=== PATIENT | female | born 1985 | race Caucasian/White ===

== ENCOUNTER 2016-05-17 10:33 | Emergency (ER) | payer OTHER ==
[2016-05-17 10:40] VITALS: BP 129/83; PULSE 92; RESP 16; TEMP 97.4
--- NOTE | 2016-05-17 11:02 | ED ---
General Adult HPI - General Chief complaint: Nausea/Vomiting/Diarrhea Stated complaint: NAUSEA, DIARRHEA Time Seen by Provider: 05/17/16 10:47 Source: patient, RN notes reviewed Mode of arrival: ambulatory Limitations: no limitations - History of Present Illness Initial comments: Patient 31-year-old female who presents emergency room today with a chief complaint of symptoms of nausea with diarrhea that started late last night. She does admit that her son had similar symptoms. She states she's had several bouts of diarrhea. Denies any signs of blood. States felt nauseated but no vomiting. Some abdominal cramping. Denies any other complaints or symptoms. States is no chance that she could be . Patient denies any recent fever , chills, shortness of breath, chest pain, back pain, abdominal pain, nausea or vomiting, numbness or tingling, dysuria or hematuria, constipation or diarrhea, headaches or visual changes, or any other complaints. - Related Data Home Medications Medication Instructions Recorded Confirmed ALPRAZolam [Xanax] 0.25 mg PO QID 02/28/15 01/05/16 Escitalopram [Lexapro] 20 mg PO DAILY 12/30/15 01/05/16 Insulin NPL/Insulin Lispro 25 units SQ HS 12/30/15 01/05/16 [humaLOG MIX 75-25 VIAL] Insulin NPL/Insulin Lispro 30 units SQ QAM 12/30/15 01/05/16 [humaLOG MIX 75-25 VIAL] Previous Rx's Medication Instructions Recorded Ibuprofen [Motrin] 600 mg PO Q6HR PRN #20 tab 12/30/15 Acetaminophen-Codeine 300-30mg 1 tab PO Q4H PRN #15 tablet 01/05/16 [Tylenol #3] Penicillin V Potassium [Pen Vee K] 500 mg PO QID #40 tab 01/05/16 Ondansetron Odt [Zofran ODT] 4 mg PO Q8HR PRN #15 tab 05/17/16 Allergies Allergy/AdvReac Type Severity Reaction Status Date / Time No Known Allergies Allergy Verified 01/05/16 23:38 Review of Systems ROS Statement: Those systems with pertinent positive or pertinent negative responses have been documented in the HPI. ROS Other: All systems not noted in ROS Statement are negative. Past Medical History Past Medical History: Diabetes Mellitus Additional Past Medical History / Comment(s): HX ENDOMETRIOSIS; GESTATIONAL DIABETES; Migraine headaches History of Any Multi-Drug Resistant Organisms: None Reported Past Surgical History: Tubal Ligation Additional Past Surgical History / Comment(s): LAPAROSCOPIC REMOVAL TUBE AND OVARY-right Past Anesthesia/Blood Transfusion Reactions: No Reported Reaction Additional Past Anesthesia/Blood Transfusion Reaction / Comment(s): HAD MULT INJ FOR DENTAL WORK, INEFFECTIVE. Past Psychological History: Anxiety, Depression Additional Psychological History / Comment(s): PLANS TO MAKE APPT W/ DR FOR EVALUATION; DR ANTONIO AWARE Smoking Status: Never smoker Past Alcohol Use History: None Reported Past Drug Use History: None Reported - Past Family History Father Family Medical History: Cancer, Diabetes Mellitus, Deep Vein Thrombosis (DVT), Hypertension General Exam - General Exam Comments Initial Comments: General: The patient is awake and alert, in no distress, and does not appear acutely ill. Eye: Pupils are equal, round and reactive to light, extra-ocular movements are intact. No nystagmus. There is normal conjunctiva bilaterally. No signs of icterus. Ears, nose, mouth and throat: There are moist mucous membranes and no oral lesions. Neck: The neck is supple, there is no tenderness or JVD. Cardiovascular: There is a regular rate and rhythm. No murmur, rub or gallop is appreciated. Respiratory: Lungs are clear to auscultation, respirations are non-labored, breath sounds are equal. No wheezes, stridor, rales, or rhonchi. Gastrointestinal: Soft, non-distended, non-tender abdomen without masses or organomegaly noted. There is no rebound or guarding present. No CVA tenderness. Bowel sounds are unremarkable. Musculoskeletal: Normal ROM, no tenderness. Strength 5/5. Sensation intact. Pulses equal bilaterally 2+. Neurological: A&O x 3. CN II-XII intact, There are no obvious motor or sensory deficits. Coordination appears grossly intact. Speech is normal. Skin: Skin is warm and dry and no rashes or lesions are noted. Psychiatric: Cooperative, appropriate mood & affect, normal judgment. Limitations: no limitations Course Vital Signs 05/17/16 10:38 Temperature 97.4 F L Pulse Rate 92 Respiratory 16 Rate Blood Pressure 129/83 O2 Sat by Pulse 99 Oximetry Medical Decision Making - Medical Decision Making Patient will be discharged home with nausea medication. Signs symptoms return were discussed with the patient. Patient advised to use [id number] Imodium for diarrhea. Advised about the family doctor return if any symptoms increase or worsen. Disposition Clinical Impression: Acute diarrhea, Nausea Disposition: HOME SELF-CARE Condition: Good Instructions: Acute Diarrhea (ED) Additional Instructions: Please use medication as prescribed and [id number] Imodium for symptoms. Please follow-up the family doctor over the next 2-3 days if symptoms are unimproved or return here to the emergency room if any symptoms increase or worsen. Prescriptions: Ondansetron Odt [Zofran ODT] 4 mg PO Q8HR PRN #15 tab PRN Reason: Nausea Time of Disposition: 11:01
== END 2016-05-17 11:09 | disposition home or self-care (01) ==
LOC: EC 10:33
DX: R11.0 Nausea (principal); R19.7 Diarrhea, unspecified; E11.9 Type 2 diabetes mellitus without complications; F32.9 Major depressive disorder, single episode, unspecified; F41.9 Anxiety disorder, unspecified; Z79.4 Long term (current) use of insulin; Z79.899 Other long term (current) drug therapy
CPT/HCPCS: 99283

== ENCOUNTER 2016-06-25 21:40 | Emergency (ER) | payer OTHER ==
[2016-06-25 21:47] VITALS: RESP 20
[2016-06-25] MEDS ORDERED: BUPIVACAINE (PF) 0.5% 30 ML VIAL SQ STA (22:23)
[2016-06-25] MEDS ORDERED: ACET/COD 300 MG/30 MG STARTER PACK 6 TAB BTL PO STA (22:26)
--- NOTE | 2016-06-25 22:27 | ED ---
ENT HPI - General Chief complaint: Dental/Oral Stated complaint: dental pain Time Seen by Provider: 06/25/16 22:17 Source: patient Mode of arrival: ambulatory Limitations: no limitations - History of Present Illness Initial comments: Patient is a 31 year old female with right sided dental pain for 3 days, she reports it is on the lower back molar. She states she has had problems with this tooth before, and believes she chipped it. She states it feels like her tongue is being cut when she talks as it moves by it. She states she has had dental abscess in the past. She reports the pain is ecaxerbated when eating and drinking. She denies fever chills, swelling, drainage around the tooth. - Related Data Home Medications Medication Instructions Recorded Confirmed ALPRAZolam [Xanax] 0.25 mg PO QID 02/28/15 06/25/16 Escitalopram [Lexapro] 20 mg PO DAILY 12/30/15 06/25/16 Insulin NPL/Insulin Lispro 25 units SQ HS 12/30/15 06/25/16 [humaLOG MIX 75-25 VIAL] Insulin NPL/Insulin Lispro 30 units SQ QAM 12/30/15 06/25/16 [humaLOG MIX 75-25 VIAL] Previous Rx's Medication Instructions Recorded Ibuprofen [Motrin] 600 mg PO Q6HR PRN #20 tab 12/30/15 Acetaminophen-Codeine 300-30mg 1 tab PO Q4H PRN #15 tablet 06/25/16 [Tylenol #3] Penicillin V Potassium [Pen Vee K] 500 mg PO QID #40 tab 06/25/16 Allergies Allergy/AdvReac Type Severity Reaction Status Date / Time No Known Allergies Allergy Verified 06/25/16 21:47 Review of Systems ROS Statement: Those systems with pertinent positive or pertinent negative responses have been documented in the HPI. ROS Other: All systems not noted in ROS Statement are negative. Past Medical History Past Medical History: Diabetes Mellitus Additional Past Medical History / Comment(s): HX ENDOMETRIOSIS; GESTATIONAL DIABETES; Migraine headaches History of Any Multi-Drug Resistant Organisms: None Reported Past Surgical History: Tubal Ligation Additional Past Surgical History / Comment(s): LAPAROSCOPIC REMOVAL TUBE AND OVARY-right Past Anesthesia/Blood Transfusion Reactions: No Reported Reaction Additional Past Anesthesia/Blood Transfusion Reaction / Comment(s): HAD MULT INJ FOR DENTAL WORK, INEFFECTIVE. Past Psychological History: Anxiety, Depression Additional Psychological History / Comment(s): PLANS TO MAKE APPT W/ DR FOR EVALUATION; DR ANTONIO AWARE Smoking Status: Never smoker Past Alcohol Use History: None Reported Past Drug Use History: None Reported - Past Family History Father Family Medical History: Cancer, Diabetes Mellitus, Deep Vein Thrombosis (DVT), Hypertension General Exam - General Exam Comments Initial Comments: Well appearing 31 year old female, no distress. Limitations: no limitations General appearance: alert, in no apparent distress Head exam: Present: atraumatic, normocephalic, normal inspection Eye exam: Present: normal appearance, PERRL, EOMI. Absent: scleral icterus, conjunctival injection, periorbital swelling ENT exam: Present: normal exam, mucous membranes moist. Absent: normal oropharynx (decayed and chipped tooth 32. mild edema around gums of tooth. ) Neck exam: Present: normal inspection. Absent: tenderness, meningismus, lymphadenopathy Respiratory exam: Present: normal lung sounds bilaterally. Absent: respiratory distress, wheezes, rales, rhonchi, stridor Cardiovascular Exam: Present: regular rate, normal rhythm, normal heart sounds. Absent: systolic murmur, diastolic murmur, rubs, gallop, clicks GI/Abdominal exam: Present: soft, normal bowel sounds. Absent: distended, tenderness, guarding, rebound, rigid Extremities exam: Present: normal inspection, full ROM, normal capillary refill. Absent: tenderness, pedal edema, joint swelling, calf tenderness Back exam: Present: normal inspection Neurological exam: Present: alert, oriented X3, CN II-XII intact Course Vital Signs 06/25/16 06/25/16 21:45 22:45 Temperature 98.2 F 98.4 F Pulse Rate 90 86 Respiratory 20 20 Rate Blood Pressure 144/90 136/86 O2 Sat by Pulse 98 99 Oximetry Procedures - Nerve Block Time Out Performed: No Local Anesthetic Used: Marcaine 0.5% Amount of anesthesia used: 4 Side: right Intraoral Nerve Block: inferior alveolar Procedure Successful: Yes Complications: none Patient Tolerated Procedure: well, no complications Medical Decision Making - Medical Decision Making Patient is a 31 year old with chipped tooth 32 and edema around the gum line. Patient given inferior alveolar block and placed on PenVK for possible infection. Patient also given short course of pain medicaiton. Patient reports she is following up with her dentist on Wednesday. Return parameters discussed including increased facial swelling. Patient understands treatment plan and will comply. Disposition Clinical Impression: Dental abscess Disposition: HOME SELF-CARE Condition: Good Instructions: Toothache (ED), Dental Abscess (ED) Additional Instructions: [facility] [address] [place] [address] [phone] (existing clients only) For new clients: [phone] 1st consult: $50 (includes Xrays) Usually 30% less then private dentist for visits after. [employer] Have to pay $50 for Xrays anmd rest is covered. [phone] Complete antibiotic prescription Prescriptions: Acetaminophen-Codeine 300-30mg [Tylenol #3] 1 tab PO Q4H PRN #15 tablet PRN Reason: Pain Penicillin V Potassium [Pen Vee K] 500 mg PO QID #40 tab Referrals: Doris Houston MD [Primary Care Provider] - 1-2 days
[2016-06-25 22:56] VITALS: BP 136/86; PULSE 86; TEMP 98.4
== END 2016-06-25 22:45 | disposition home or self-care (01) ==
LOC: EC 21:40
DX: K04.7 Periapical abscess without sinus (principal); S02.5XXA Fracture of tooth (traumatic), initial encounter for closed fracture; X58.XXXA Exposure to other specified factors, initial encounter; Z79.899 Other long term (current) drug therapy; E11.9 Type 2 diabetes mellitus without complications; Z79.4 Long term (current) use of insulin; F32.9 Major depressive disorder, single episode, unspecified; F41.9 Anxiety disorder, unspecified
CPT/HCPCS: 64400; 99282

== ENCOUNTER 2016-08-13 17:15 | Emergency (ER) | payer OTHER ==
[2016-08-13 17:22] VITALS: BP 133/77; PULSE 102; RESP 20; TEMP 97.8
--- NOTE | 2016-08-13 18:22 | XR ---
EXAMINATION TYPE: XR chest 2V DATE OF EXAM: 08/13/2016 5:59 PM COMPARISON: NONE HISTORY: Cough and congestion TECHNIQUE: Frontal and lateral views of the chest are obtained. FINDINGS: Heart and mediastinum are normal. Lungs are clear. Diaphragm is normal. Bony thorax is int act. IMPRESSION: Normal chest
--- NOTE | 2016-08-13 18:31 | ED ---
URI HPI - General Chief Complaint: Upper Respiratory Infection Stated Complaint: cold and flu symptoms Time Seen by Provider: 08/13/16 17:24 Source: patient, RN notes reviewed Mode of arrival: ambulatory Limitations: no limitations - History of Present Illness Initial Comments: Patient is a 31 year old diabetic female with 3 weeks of productive cough and sinus congestion. She has no recorded fever at this time. Patient has been taking robitussin and mucinex with little help. She states she has a history of sick contacts with similiar symptoms. Denies travel history. - Related Data Home Medications Medication Instructions Recorded Confirmed ALPRAZolam [Xanax] 0.25 mg PO QID 02/28/15 06/25/16 Escitalopram [Lexapro] 20 mg PO DAILY 12/30/15 06/25/16 Insulin NPL/Insulin Lispro 25 units SQ HS 12/30/15 06/25/16 [humaLOG MIX 75-25 VIAL] Insulin NPL/Insulin Lispro 30 units SQ QAM 12/30/15 06/25/16 [humaLOG MIX 75-25 VIAL] Previous Rx's Medication Instructions Recorded Ibuprofen [Motrin] 600 mg PO Q6HR PRN #20 tab 12/30/15 Acetaminophen-Codeine 300-30mg 1 tab PO Q4H PRN #15 tablet 06/25/16 [Tylenol #3] Penicillin V Potassium [Pen Vee K] 500 mg PO QID #40 tab 06/25/16 Azithromycin [Zithromax Z-pack] 250 mg PO DIRECTED #6 tab 08/13/16 Allergies Allergy/AdvReac Type Severity Reaction Status Date / Time No Known Allergies Allergy Verified 08/13/16 17:22 Review of Systems ROS Statement: Those systems with pertinent positive or pertinent negative responses have been documented in the HPI. ROS Other: All systems not noted in ROS Statement are negative. Past Medical History Past Medical History: Diabetes Mellitus Additional Past Medical History / Comment(s): HX ENDOMETRIOSIS; GESTATIONAL DIABETES; Migraine headaches History of Any Multi-Drug Resistant Organisms: None Reported Past Surgical History: Tubal Ligation Additional Past Surgical History / Comment(s): LAPAROSCOPIC REMOVAL TUBE AND OVARY-right Past Anesthesia/Blood Transfusion Reactions: No Reported Reaction Additional Past Anesthesia/Blood Transfusion Reaction / Comment(s): HAD MULT INJ FOR DENTAL WORK, INEFFECTIVE. Past Psychological History: Anxiety, Depression Additional Psychological History / Comment(s): PLANS TO MAKE APPT W/ DR FOR EVALUATION; DR ANTONIO AWARE Smoking Status: Never smoker Past Alcohol Use History: None Reported Past Drug Use History: None Reported - Past Family History Father Family Medical History: Cancer, Diabetes Mellitus, Deep Vein Thrombosis (DVT), Hypertension General Exam - General Exam Comments Initial Comments: Well appearing 31 year old female, no distress. Limitations: no limitations General appearance: alert, in no apparent distress Head exam: Present: atraumatic, normocephalic, normal inspection Eye exam: Present: normal appearance, PERRL, EOMI. Absent: scleral icterus, conjunctival injection, periorbital swelling ENT exam: Present: normal exam, mucous membranes moist, TM's normal bilaterally. Absent: normal oropharynx (erythematous oropharynx with post nasal drainage. ) Neck exam: Present: normal inspection. Absent: tenderness, meningismus, lymphadenopathy Respiratory exam: Present: normal lung sounds bilaterally. Absent: respiratory distress, wheezes, rales, rhonchi, stridor Cardiovascular Exam: Present: regular rate, normal rhythm, normal heart sounds. Absent: systolic murmur, diastolic murmur, rubs, gallop, clicks GI/Abdominal exam: Present: soft, normal bowel sounds. Absent: distended, tenderness, guarding, rebound, rigid Extremities exam: Present: normal inspection, full ROM, normal capillary refill. Absent: tenderness, pedal edema, joint swelling, calf tenderness Back exam: Present: normal inspection Neurological exam: Present: alert, oriented X3, CN II-XII intact Psychiatric exam: Present: normal affect, normal mood Skin exam: Present: warm, dry, intact, normal color. Absent: rash Course Vital Signs 08/13/16 17:21 Temperature 97.8 F Pulse Rate 102 H Respiratory 20 Rate Blood Pressure 133/77 O2 Sat by Pulse 98 Oximetry Medical Decision Making - Medical Decision Making Patient is a 31 year old diabetic female with 3 week productive cough. No fever at this time. Patient CXR is normal. Patient will be treated with azithromycin and advised to follow up with PCP in 1 week if symptoms persist. REturn parameters discussed. Disposition Clinical Impression: Bronchitis Disposition: HOME SELF-CARE Condition: Good Instructions: Upper Respiratory Infection (ED) Additional Instructions: Rest, increase fluids. Completely antibiotic prescription. Follow-up with primary care provider if symptoms continue to persist. Prescriptions: Azithromycin [Zithromax Z-pack] 250 mg PO DIRECTED #6 tab Referrals: Doris Houston MD [Primary Care Provider] - 1-2 days Time of Disposition: 18:30
== END 2016-08-13 18:42 | disposition home or self-care (01) ==
LOC: EC 17:15
DX: J40 Bronchitis, not specified as acute or chronic (principal); E11.9 Type 2 diabetes mellitus without complications; F32.9 Major depressive disorder, single episode, unspecified; F41.9 Anxiety disorder, unspecified; Z79.4 Long term (current) use of insulin; Z79.899 Other long term (current) drug therapy
CPT/HCPCS: 71020; 99283

== ENCOUNTER 2016-10-29 06:16 | Emergency (ER) | payer OTHER ==
[2016-10-29 06:32] VITALS: BP 124/89; PULSE 94; RESP 18; TEMP 97.3
[2016-10-29] MEDS ORDERED: IBUPROFEN 800 MG TAB PO STA (06:33)
--- NOTE | 2016-10-29 06:37 | ED ---
ENT HPI - General Chief complaint: ENT Stated complaint: right ear pain Time Seen by Provider: 10/29/16 06:29 Source: patient, RN notes reviewed Mode of arrival: ambulatory Limitations: no limitations - History of Present Illness Initial comments: This is a 31-year-old female who presents with complaints of right ear pain for the past 2 days. She's had similar drainage or fever chills or sweats. No cough or phlegm production she states that her significant other has been ill recently MD complaint: ear pain - Related Data Home Medications Medication Instructions Recorded Confirmed ALPRAZolam [Xanax] 0.25 mg PO QID 02/28/15 06/25/16 Escitalopram [Lexapro] 20 mg PO DAILY 12/30/15 06/25/16 Insulin NPL/Insulin Lispro 25 units SQ HS 12/30/15 06/25/16 [humaLOG MIX 75-25 VIAL] Insulin NPL/Insulin Lispro 30 units SQ QAM 12/30/15 06/25/16 [humaLOG MIX 75-25 VIAL] Previous Rx's Medication Instructions Recorded Ibuprofen [Motrin] 600 mg PO Q6HR PRN #20 tab 12/30/15 Acetaminophen-Codeine 300-30mg 1 tab PO Q4H PRN #15 tablet 06/25/16 [Tylenol #3] Penicillin V Potassium [Pen Vee K] 500 mg PO QID #40 tab 06/25/16 Azithromycin [Zithromax Z-pack] 250 mg PO DIRECTED #6 tab 08/13/16 Amoxicillin/Potassium Clav 1 tab PO Q12HR #20 tab 10/29/16 [Augmentin 875-125 Tablet] Ciprofloxacin HCl/Dexameth 4 drops BOTH EARS AC-BID #7.5 ml 10/29/16 [Ciprodex Otic Suspension] Hydrocodone/Acetaminophen [[place] 1 each PO Q6HR PRN #20 tab 10/29/16 5-325] Ibuprofen 800 mg PO Q6HR PRN #20 tablet 10/29/16 Allergies Allergy/AdvReac Type Severity Reaction Status Date / Time No Known Allergies Allergy Verified 10/29/16 06:23 Review of Systems ROS Statement: Those systems with pertinent positive or pertinent negative responses have been documented in the HPI. ROS Other: All systems not noted in ROS Statement are negative. Past Medical History Past Medical History: Diabetes Mellitus Additional Past Medical History / Comment(s): HX ENDOMETRIOSIS; GESTATIONAL DIABETES; Migraine headaches History of Any Multi-Drug Resistant Organisms: None Reported Past Surgical History: Tubal Ligation Additional Past Surgical History / Comment(s): LAPAROSCOPIC REMOVAL TUBE AND OVARY-right Past Anesthesia/Blood Transfusion Reactions: No Reported Reaction Additional Past Anesthesia/Blood Transfusion Reaction / Comment(s): HAD MULT INJ FOR DENTAL WORK, INEFFECTIVE. Past Psychological History: Anxiety, Depression Smoking Status: Never smoker Past Alcohol Use History: None Reported Past Drug Use History: None Reported - Past Family History Father Family Medical History: Cancer, Diabetes Mellitus, Deep Vein Thrombosis (DVT), Hypertension General Exam - General Exam Comments Initial Comments: This is a well-developed well-nourished awake alert oriented 1 female Limitations: no limitations General appearance: alert, anxious Head exam: Present: atraumatic, normocephalic, normal inspection Eye exam: Present: normal appearance, PERRL, EOMI. Absent: scleral icterus, conjunctival injection, periorbital swelling ENT exam: Present: mucous membranes moist, other (Mild posterior pharyngeal hyperemia with no exudates. Left tympanic membrane reveals fluid behind the membranes but no erythema. Right canal is edematous with mucoid discharge since or otitis externa. The tympanic membrane is poorly visualized.) Neck exam: Present: normal inspection, tenderness (Tender anterior cervical lymphadenopathy in the right.), lymphadenopathy Respiratory exam: Present: normal lung sounds bilaterally Cardiovascular Exam: Present: regular rate, normal rhythm, normal heart sounds. Absent: systolic murmur, diastolic murmur, rubs, gallop, clicks Back exam: Absent: tenderness Neurological exam: Present: alert, oriented X3, CN II-XII intact Psychiatric exam: Present: normal affect, normal mood Skin exam: Present: warm, dry, intact, normal color. Absent: rash Course Vital Signs 10/29/16 06:21 Temperature 97.3 F L Pulse Rate 94 Respiratory 18 Rate Blood Pressure 124/89 O2 Sat by Pulse 99 Oximetry Medical Decision Making - Medical Decision Making Further workup is initiated the presentation is consistent with otitis externa with some extension into the soft tissue the patient will be placed on both oral antibiotics and drops for the ear. Also medication for. Disposition Clinical Impression: Otitis externa Disposition: HOME SELF-CARE Condition: Good Instructions: Earache (ED), Otitis Externa (ED) Prescriptions: Amoxicillin/Potassium Clav [Augmentin 875-125 Tablet] 1 tab PO Q12HR #20 tab Ciprofloxacin HCl/Dexameth [Ciprodex Otic Suspension] 4 drops BOTH EARS AC-BID # 7.5 ml Hydrocodone/Acetaminophen [[place] 5-325] 1 each PO Q6HR PRN #20 tab PRN Reason: Pain Ibuprofen 800 mg PO Q6HR PRN #20 tablet PRN Reason: Pain Referrals: Doris Houston MD [Primary Care Provider] - 1-2 days
== END 2016-10-29 06:53 | disposition home or self-care (01) ==
LOC: EC 06:16
DX: H60.91 Unspecified otitis externa, right ear (principal); E11.9 Type 2 diabetes mellitus without complications; F32.9 Major depressive disorder, single episode, unspecified; F41.9 Anxiety disorder, unspecified; Z79.4 Long term (current) use of insulin; Z79.899 Other long term (current) drug therapy
CPT/HCPCS: 99282

== ENCOUNTER 2017-01-02 00:16 | Emergency (ER) | payer OTHER ==
[2017-01-02 00:31] VITALS: BP 119/74; PULSE 87; RESP 18; TEMP 97.7
--- NOTE | 2017-01-02 00:44 | ED ---
ENT HPI - General Chief complaint: ENT Stated complaint: Sore throat Time Seen by Provider: 01/02/17 00:37 Source: patient, RN notes reviewed Mode of arrival: ambulatory Limitations: no limitations - History of Present Illness Initial comments: 31-year-old female presents emergency Department chief complaint of sore throat , nasal congestion. Patient states she started this morning will tickle in her throat states is progressively getting worse. She states she does drainage throat. Patient has been blowing her nose slightly state. Patient denies fever , chills, headache, dizziness, neck stiffness, cough, shortness of breath, chest pain, nausea, vomiting diarrhea constipation. - Related Data Home Medications Medication Instructions Recorded Confirmed Insulin NPL/Insulin Lispro 34 units SQ HS 12/30/15 01/02/17 [humaLOG MIX 75-25 VIAL] Insulin NPL/Insulin Lispro 40 units SQ QAM 12/30/15 01/02/17 [humaLOG MIX 75-25 VIAL] metFORMIN HCL [Glucophage] 500 mg PO BID 01/02/17 01/02/17 Previous Rx's Medication Instructions Recorded Amoxicillin 875 mg PO Q12HR #20 tablet 01/02/17 Allergies Allergy/AdvReac Type Severity Reaction Status Date / Time No Known Allergies Allergy Verified 10/29/16 06:23 Review of Systems ROS Statement: Those systems with pertinent positive or pertinent negative responses have been documented in the HPI. ROS Other: All systems not noted in ROS Statement are negative. Past Medical History Past Medical History: Diabetes Mellitus Additional Past Medical History / Comment(s): HX ENDOMETRIOSIS; GESTATIONAL DIABETES; Migraine headaches History of Any Multi-Drug Resistant Organisms: None Reported Past Surgical History: Tubal Ligation Additional Past Surgical History / Comment(s): LAPAROSCOPIC REMOVAL TUBE AND OVARY-right Past Anesthesia/Blood Transfusion Reactions: No Reported Reaction Additional Past Anesthesia/Blood Transfusion Reaction / Comment(s): HAD MULT INJ FOR DENTAL WORK, INEFFECTIVE. Past Psychological History: Anxiety, Depression Smoking Status: Never smoker Past Alcohol Use History: None Reported Past Drug Use History: None Reported - Past Family History Father Family Medical History: Cancer, Diabetes Mellitus, Deep Vein Thrombosis (DVT), Hypertension General Exam Limitations: no limitations General appearance: alert, in no apparent distress Head exam: Present: atraumatic, normocephalic, normal inspection Eye exam: Present: normal appearance, PERRL, EOMI. Absent: scleral icterus, conjunctival injection, periorbital swelling ENT exam: Present: mucous membranes moist, TM's normal bilaterally, normal external ear exam, other. Absent: normal oropharynx (Postnasal drainage normal erythema) Neck exam: Present: normal inspection, full ROM. Absent: tenderness, meningismus, lymphadenopathy Respiratory exam: Present: normal lung sounds bilaterally. Absent: respiratory distress, wheezes, rales, rhonchi, stridor Cardiovascular Exam: Present: regular rate, normal rhythm, normal heart sounds. Absent: systolic murmur, diastolic murmur, rubs, gallop, clicks Course Vital Signs 01/02/17 00:28 Temperature 97.7 F Pulse Rate 87 Respiratory 18 Rate Blood Pressure 119/74 O2 Sat by Pulse 98 Oximetry Medical Decision Making - Medical Decision Making 31-year-old male presents emergency Department with chief complaint of sore throat, nasal congestion. This most likely is related postnasal drainage. Patient is very concerned that she believes that she has strep pharyngitis. Patient states that she had some May with similar symptoms that had strep. Patient we given antibiotics because she is so adamant this time. Patient be discharged advised take [id number] decongestants return parameters were discussed. Disposition Clinical Impression: Post-nasal drainage, Nasal congestion, Acute pharyngitis Disposition: HOME SELF-CARE Condition: Stable Instructions: Pharyngitis (ED) Additional Instructions: Please return to the Emergency Department if symptoms worsen or any other concerns. Prescriptions: Amoxicillin 875 mg PO Q12HR #20 tablet Referrals: Doris Houston MD [Primary Care Provider] - 1-2 days Time of Disposition: 00:43
== END 2017-01-02 00:53 | disposition home or self-care (01) ==
LOC: EC 00:16
DX: J02.9 Acute pharyngitis, unspecified (principal); R09.82 Postnasal drip; E11.9 Type 2 diabetes mellitus without complications; Z79.4 Long term (current) use of insulin; Z79.84 Long term (current) use of oral hypoglycemic drugs
CPT/HCPCS: 99282

== ENCOUNTER 2017-04-02 11:09 | Emergency (ER) | payer OTHER ==
[2017-04-02 11:28] LABS: Glucose,Whole Blood 471 mg/dL (75-99)
[2017-04-02] MEDS ORDERED: KETOROLAC 30 MG/ML 1 ML VIAL IVP STA (11:44)
[2017-04-02] MEDS ORDERED: SODIUM CHLORIDE 0.9% 1,000 ML IV ONE ×2 (11:45→12:31)
--- NOTE | 2017-04-02 11:48 | ED ---
General Adult HPI - General Chief complaint: Chest Pain Stated complaint: CHEST PAIN/SENT [facility] Time Seen by Provider: 04/02/17 11:39 Source: patient, RN notes reviewed, old records reviewed Mode of arrival: wheelchair Limitations: no limitations - History of Present Illness Initial comments: 32-year-old female presents for evaluation of chest pain. Patient was sent from urgent care for evaluation of central and left-sided upper chest pain. Worse with deep inspiration. Patient states she's had this for approximately 3 days. She also had associated palpitations. Patient does report mild cough. Pain is worse with cough and deep breathing. At urgent care patient's blood sugar read high, she was sent over for further evaluation. Patient was at work when her symptoms began on Wednesday. Have been present since that time. Pain is sharp and nonradiating. No nausea. No abdominal pain. No lower extremity swelling. Patient is not on control. - Related Data Home Medications Medication Instructions Recorded Confirmed Insulin NPL/Insulin Lispro 35 units SQ HS 12/30/15 04/02/17 [humaLOG MIX 75-25 VIAL] Insulin NPL/Insulin Lispro 45 units SQ QAM 12/30/15 04/02/17 [humaLOG MIX 75-25 VIAL] metFORMIN HCL [Glucophage] 500 mg PO DAILY 01/02/17 04/02/17 ALPRAZolam [Xanax] 0.25 mg PO BID PRN 04/02/17 04/02/17 Escitalopram [Lexapro] 5 mg PO DAILY PRN 04/02/17 04/02/17 Previous Rx's Medication Instructions Recorded Ibuprofen [Motrin] 600 mg PO Q8HR PRN #24 tab 04/02/17 Allergies Allergy/AdvReac Type Severity Reaction Status Date / Time No Known Allergies Allergy Verified 04/02/17 11:35 Review of Systems ROS Statement: Those systems with pertinent positive or pertinent negative responses have been documented in the HPI. ROS Other: All systems not noted in ROS Statement are negative. Past Medical History Past Medical History: Diabetes Mellitus Additional Past Medical History / Comment(s): HX ENDOMETRIOSIS; GESTATIONAL DIABETES; Migraine headaches History of Any Multi-Drug Resistant Organisms: None Reported Past Surgical History: Tubal Ligation Additional Past Surgical History / Comment(s): LAPAROSCOPIC REMOVAL TUBE AND OVARY-right Past Anesthesia/Blood Transfusion Reactions: No Reported Reaction Additional Past Anesthesia/Blood Transfusion Reaction / Comment(s): HAD MULT INJ FOR DENTAL WORK, INEFFECTIVE. Past Psychological History: Anxiety, Depression Smoking Status: Never smoker Past Alcohol Use History: None Reported Past Drug Use History: None Reported - Past Family History Father Family Medical History: Cancer, Diabetes Mellitus, Deep Vein Thrombosis (DVT), Hypertension General Exam Limitations: no limitations General appearance: alert, in no apparent distress Head exam: Present: atraumatic, normocephalic Eye exam: Present: normal appearance, PERRL ENT exam: Present: normal exam Neck exam: Present: normal inspection. Absent: tenderness, meningismus Respiratory exam: Present: normal lung sounds bilaterally, chest wall tenderness (Left upper tenderness to palpation.). Absent: respiratory distress Cardiovascular Exam: Present: regular rate, normal rhythm GI/Abdominal exam: Present: soft. Absent: distended, tenderness Extremities exam: Present: normal inspection, normal capillary refill. Absent: pedal edema, calf tenderness Neurological exam: Present: alert, oriented X3 Psychiatric exam: Present: normal affect, normal mood Skin exam: Present: warm, dry, intact Course Vital Signs 04/02/17 04/02/17 11:13 12:17 Temperature 97.6 F Pulse Rate 97 96 Respiratory 18 16 Rate Blood Pressure 141/85 120/73 O2 Sat by Pulse 100 99 Oximetry - Reevaluation(s) Reevaluation #1: 04/02/17 13:38 On reevaluation, patient's chest pain is significantly improved. EKG Findings - EKG Comments: EKG Findings:: EKG shows normal sinus rhythm, ventricular rate 85, CA interval 140, QRS duration 82, QTC 437, no signs of ischemia or infarction, T-wave inversion in lead 3 Medical Decision Making - Medical Decision Making 32-year-old female presenting with chief complaint chest pain and elevated blood sugar. Initial blood glucose is 500. Patient receives IV hydration and 5 units of insulin. Blood glucose is down trending at 325. Anion gap is 9, no signs of acidosis. Patient will continue to orally rehydrate and take her insulin home. She will follow-up with her primary care physician. Regarding her chest pain, is reproducible on examination. Chest x-ray shows no acute findings. Blood cell count and hemoglobin are normal. D-dimer is negative. EKG is nonischemic. Patient's pain is improved on reevaluation. Diagnosis: Muscular skeletal chest pain, hyperglycemia - Lab Data Result diagrams: 04/02/17 12:00 04/02/17 12:00 Lab Results 04/02/17 04/02/17 04/02/17 Range/Units 11:26 12:00 12:00 WBC 8.4 (3.8-10.6) k/uL RBC 4.82 (3.80-5.40) m/uL Hgb 14.2 (11.4-16.0) gm/dL Hct 42.4 (34.0-46.0) % MCV 88.0 (80.0-100.0) fL MCH 29.4 (25.0-35.0) pg MCHC 33.4 (31.0-37.0) g/dL RDW 12.4 (11.5-15.5) % Plt Count 318 (150-450) k/uL Neutrophils % 70 % Lymphocytes % 23 % Monocytes % 4 % Eosinophils % 1 % Basophils % 1 % Neutrophils # 5.9 (1.3-7.7) k/uL Lymphocytes # 1.9 (1.0-4.8) k/uL Monocytes # 0.3 (0-1.0) k/uL Eosinophils # 0.1 (0-0.7) k/uL Basophils # 0.0 (0-0.2) k/uL PT (9.0-12.0) sec INR (<1.2) APTT (22.0-30.0) sec D-Dimer (<0.60) mg/L FEU Sodium (137-145) mmol/L Potassium (3.5-5.1) mmol/L Chloride (98-107) mmol/L Carbon Dioxide (22-30) mmol/L Anion Gap mmol/L BUN (7-17) mg/dL Creatinine (0.52-1.04) mg/dL Est GFR (MDRD) Af Amer (>60 ml/min/1.73 sqM) Est GFR (MDRD) Non-Af (>60 ml/min/1.73 sqM) Glucose (74-99) mg/dL POC Glucose (mg/dL) 471 H (75-99) mg/dL POC Glu Specialty [employer]sembler ID McDaid, [place] Calcium (8.4-10.2) mg/dL Magnesium (1.6-2.3) mg/dL Total Bilirubin (0.2-1.3) mg/dL AST (14-36) U/L ALT (9-52) U/L Alkaline Phosphatase (38-126) U/L Total Creatine Kinase 57 (30-135) U/L CK-MB (CK-2) 0.5 (0.0-2.4) ng/mL CK-MB (CK-2) Rel Index 0.9 Troponin I <0.012 (0.000-0.034) ng/mL Total Protein (6.3-8.2) g/dL Albumin (3.5-5.0) g/dL Urine Color Urine Appearance (Clear) Urine pH (5.0-8.0) Ur Specific [place] (1.001-1.035) Urine Protein (Negative) Urine Glucose (UA) (Negative) Urine Ketones (Negative) Urine Blood (Negative) Urine Nitrite (Negative) Urine Bilirubin (Negative) Urine Urobilinogen (<2.0) mg/dL Ur Leukocyte Esterase (Negative) Urine HCG, Qual (Not Detectd) 04/02/17 04/02/17 04/02/17 Range/Units 12:00 12:00 12:00 WBC (3.8-10.6) k/uL RBC (3.80-5.40) m/uL Hgb (11.4-16.0) gm/dL Hct (34.0-46.0) % MCV (80.0-100.0) fL MCH (25.0-35.0) pg MCHC (31.0-37.0) g/dL RDW (11.5-15.5) % Plt Count (150-450) k/uL Neutrophils % % Lymphocytes % % Monocytes % % Eosinophils % % Basophils % % Neutrophils # (1.3-7.7) k/uL Lymphocytes # (1.0-4.8) k/uL Monocytes # (0-1.0) k/uL Eosinophils # (0-0.7) k/uL Basophils # (0-0.2) k/uL PT 9.3 (9.0-12.0) sec INR 0.9 (<1.2) APTT 19.8 L (22.0-30.0) sec D-Dimer <0.17 (<0.60) mg/L FEU Sodium 134 L (137-145) mmol/L Potassium 4.6 (3.5-5.1) mmol/L Chloride 101 (98-107) mmol/L Carbon Dioxide 24 (22-30) mmol/L Anion Gap 9 mmol/L BUN 12 (7-17) mg/dL Creatinine 0.60 (0.52-1.04) mg/dL Est GFR (MDRD) Af Amer >60 (>60 ml/min/1.73 sqM) Est GFR (MDRD) Non-Af >60 (>60 ml/min/1.73 sqM) Glucose 494 H* (74-99) mg/dL POC Glucose (mg/dL) (75-99) mg/dL POC Glu Specialty [employer]sembler ID Calcium 9.1 (8.4-10.2) mg/dL Magnesium 1.7 (1.6-2.3) mg/dL Total Bilirubin 0.8 (0.2-1.3) mg/dL AST 21 (14-36) U/L ALT 43 (9-52) U/L Alkaline Phosphatase 104 (38-126) U/L Total Creatine Kinase (30-135) U/L CK-MB (CK-2) (0.0-2.4) ng/mL CK-MB (CK-2) Rel Index Troponin I (0.000-0.034) ng/mL Total Protein 6.2 L (6.3-8.2) g/dL Albumin 3.6 (3.5-5.0) g/dL Urine Color Colorless Urine Appearance Clear (Clear) Urine pH 6.5 (5.0-8.0) Ur Specific [place] 1.025 (1.001-1.035) Urine Protein Negative (Negative) Urine Glucose (UA) 4+ H (Negative) Urine Ketones 1+ H (Negative) Urine Blood Negative (Negative) Urine Nitrite Negative (Negative) Urine Bilirubin Negative (Negative) Urine Urobilinogen <2.0 (<2.0) mg/dL Ur Leukocyte Esterase Negative (Negative) Urine HCG, Qual (Not Detectd) 04/02/17 04/02/17 Range/Units 12:00 13:23 WBC (3.8-10.6) k/uL RBC (3.80-5.40) m/uL Hgb (11.4-16.0) gm/dL Hct (34.0-46.0) % MCV (80.0-100.0) fL MCH (25.0-35.0) pg MCHC (31.0-37.0) g/dL RDW (11.5-15.5) % Plt Count (150-450) k/uL Neutrophils % % Lymphocytes % % Monocytes % % Eosinophils % % Basophils % % Neutrophils # (1.3-7.7) k/uL Lymphocytes # (1.0-4.8) k/uL Monocytes # (0-1.0) k/uL Eosinophils # (0-0.7) k/uL Basophils # (0-0.2) k/uL PT (9.0-12.0) sec INR (<1.2) APTT (22.0-30.0) sec D-Dimer (<0.60) mg/L FEU Sodium (137-145) mmol/L Potassium (3.5-5.1) mmol/L Chloride (98-107) mmol/L Carbon Dioxide (22-30) mmol/L Anion Gap mmol/L BUN (7-17) mg/dL Creatinine (0.52-1.04) mg/dL Est GFR (MDRD) Af Amer (>60 ml/min/1.73 sqM) Est GFR (MDRD) Non-Af (>60 ml/min/1.73 sqM) Glucose (74-99) mg/dL POC Glucose (mg/dL) 325 H (75-99) mg/dL POC Glu Specialty [employer]former Assembler ID Henny Atkins Calcium (8.4-10.2) mg/dL Magnesium (1.6-2.3) mg/dL Total Bilirubin (0.2-1.3) mg/dL AST (14-36) U/L ALT (9-52) U/L Alkaline Phosphatase (38-126) U/L Total Creatine Kinase (30-135) U/L CK-MB (CK-2) (0.0-2.4) ng/mL CK-MB (CK-2) Rel Index Troponin I (0.000-0.034) ng/mL Total Protein (6.3-8.2) g/dL Albumin (3.5-5.0) g/dL Urine Color Urine Appearance (Clear) Urine pH (5.0-8.0) Ur Specific [place] (1.001-1.035) Urine Protein (Negative) Urine Glucose (UA) (Negative) Urine Ketones (Negative) Urine Blood (Negative) Urine Nitrite (Negative) Urine Bilirubin (Negative) Urine Urobilinogen (<2.0) mg/dL Ur Leukocyte Esterase (Negative) Urine HCG, Qual Not Detected (Not Detectd) Disposition Clinical Impression: Costalchondritis, Chest pain, Hyperglycemia Disposition: HOME SELF-CARE Condition: Good Instructions: Chest Pain (ED), Costochondritis (ED) Prescriptions: Ibuprofen [Motrin] 600 mg PO Q8HR PRN #24 tab PRN Reason: Pain Referrals: Doris Houston MD [Primary Care Provider] - 1-2 days Time of Disposition: 13:43
[2017-04-02 12:09] LABS: Basophils % (A) 1 %; CH 30.6; CHCM 34.9; Eosinophils # (A) 0.1 k/uL (0-0.7); Eosinophils % (A) 1 %; HCT 42.4 % (34.0-46.0); HDW 2.66; HGB 14.2 gm/dL (11.4-16.0); Luc # (Auto) 0.17; Luc % (Auto) 2; Lymphocytes # (A) 1.9 k/uL (1.0-4.8); Lymphocytes % (A) 23 %; MCH 29.4 pg (25.0-35.0); MCHC 33.4 g/dL (31.0-37.0); Mean Platelet Volume 7.7; Monocytes # (A) 0.3 k/uL (0-1.0); Monocytes % (A) 4 %; Neutrophils # (A) 5.9 k/uL (1.3-7.7); Neutrophils % (A) 70 %; RBC 4.82 m/uL (3.80-5.40); RDW 12.4 % (11.5-15.5); WBC 8.4 k/uL (3.8-10.6); WBC (Perox) 8.46
[2017-04-02 12:14] LABS: Appearance,Urine Clear (Clear); Bilirubin,Urine Negative (Negative); Glucose,Urine (UA) 4+ (Negative); Ketones,Urine 1+ (Negative); Leukocyte Esterase,Urine Negative (Negative); Nitrite,Urine Negative (Negative); PH, Urine 6.5 (5.0-8.0); Protein,Urine Negative (Negative); Specific Gravity,Urine 1.025 (1.001-1.035); UA Billing (MACRO vs. MICRO) CHEM; Urobilinogen,Urine <2.0 mg/dL (<2.0)
[2017-04-02 12:19] LABS: ALT 43 U/L (9-52); AST 21 U/L (14-36); Alkaline Phosphatase 104 U/L (38-126); Anion Gap 9 mmol/L; Blood Urea Nitrogen 12 mg/dL (7-17); Calcium 9.1 mg/dL (8.4-10.2); Carbon Dioxide 24 mmol/L (22-30); Chloride 101 mmol/L (98-107); Magnesium 1.7 mg/dL (1.6-2.3); Non-African American GFR(MDRD) >60 (>60 ml/min/1.73 sqM); Potassium 4.6 mmol/L (3.5-5.1); Sodium 134 mmol/L (137-145); Total Bilirubin 0.8 mg/dL (0.2-1.3); Total Protein 6.2 g/dL (6.3-8.2)
--- NOTE | 2017-04-02 12:22 | XR ---
EXAMINATION TYPE: XR chest 2V DATE OF EXAM: 04/02/2017 COMPARISON: 08/13/2016 TECHNIQUE: PA and lateral views submitted. HISTORY: Chest pain FINDINGS: The lungs are clear and there is no pneumothorax, pleural effusion, or focal pneumonia. Small scler otic lesion involving the head of the humerus noted. IMPRESSION: 1. No acute process.
[2017-04-02 12:28] LABS: Glucose 494 mg/dL (74-99)
[2017-04-02] MEDS ORDERED: INSULIN REGULAR 100 UNIT/ML VIAL SQ ONE (12:31)
[2017-04-02 12:38] LABS: Creatine Kinase 57 U/L (30-135); INR 0.9 (<1.2); Prothrombin Time 9.3 sec (9.0-12.0)
[2017-04-02 12:43] VITALS: RESP 16
[2017-04-02 12:44] LABS: Partial Thromboplastin Time 19.8 sec (22.0-30.0)
[2017-04-02 12:50] LABS: Creatine Kinase MB 0.5 ng/mL (0.0-2.4); Troponin I <0.012 ng/mL (0.000-0.034)
[2017-04-02 13:25] LABS: Glucose,Whole Blood 325 mg/dL (75-99)
[2017-04-02 14:04] VITALS: BP 121/82; PULSE 88; TEMP 97.2
== END 2017-04-02 14:11 | disposition home or self-care (01) ==
LOC: EC 11:09
DX: M94.0 Chondrocostal junction syndrome [Tietze] (principal); E11.65 Type 2 diabetes mellitus with hyperglycemia; Z79.4 Long term (current) use of insulin
CPT/HCPCS: 36415; 93005; 85379; 80053; 82550; 82553; 83735; 84484; 85025; 85610; 85730; 81003; 81025; 71020; 99285; 96374; 96361 ×2; J1885

== ENCOUNTER 2017-06-07 11:45 | Emergency (ER) | payer OTHER ==
[2017-06-07] MEDS ORDERED: IBUPROFEN 600 MG TAB PO STA (12:36)
[2017-06-07] MEDS ORDERED: ACETAMINOPHEN TAB 500 MG TAB PO STA (12:36)
[2017-06-07] MEDS ORDERED: IPRATROPIUM-ALBUTEROL 3 ML NEB INHALATION STA (12:37)
[2017-06-07 13:12] LABS: Appearance,Urine Clear (Clear); Bilirubin,Urine Negative (Negative); Blood,Urine Negative (Negative); Color,Urine Colorless; Glucose,Urine (UA) 4+ (Negative); Ketones,Urine 1+ (Negative); Leukocyte Esterase,Urine Negative (Negative); Nitrite,Urine Negative (Negative); Protein,Urine Negative (Negative); Specific Gravity,Urine 1.026 (1.001-1.035); Urobilinogen,Urine <2.0 mg/dL (<2.0)
[2017-06-07] MEDS ORDERED: PROMETHAZ-COD 6.25-10 MG/5 ML 5 ML CUP PO STA (13:21)
--- NOTE | 2017-06-07 13:22 | ED ---
URI HPI - General Chief Complaint: Upper Respiratory Infection Stated Complaint: SOB, CHEST TIGHTNESS, COUGH Time Seen by Provider: 06/07/17 12:26 Source: patient, RN notes reviewed, old records reviewed Mode of arrival: ambulatory Limitations: no limitations - History of Present Illness Initial Comments: Patient is a 32-year-old female presents emergency Department a chief complaint of cough, shortness of breath and chest pain with coughing for the past 3 days. She reports that she has had a low-grade temperature. She reports she feels chilled. She denies any nausea or vomiting. She also reports some chronic lower abdominal pain. She reports going on for many months. Patient states that she has had normal bowel habits today. No history of sick contacts that she is aware of. - Related Data Home Medications Medication Instructions Recorded Confirmed Insulin NPL/Insulin Lispro 35 units SQ HS 12/30/15 04/02/17 [humaLOG MIX 75-25 VIAL] Insulin NPL/Insulin Lispro 45 units SQ QAM 12/30/15 04/02/17 [humaLOG MIX 75-25 VIAL] metFORMIN HCL [Glucophage] 500 mg PO DAILY 01/02/17 04/02/17 ALPRAZolam [Xanax] 0.25 mg PO BID PRN 04/02/17 04/02/17 Escitalopram [Lexapro] 5 mg PO DAILY PRN 04/02/17 04/02/17 Previous Rx's Medication Instructions Recorded Ibuprofen [Motrin] 600 mg PO Q8HR PRN #24 tab 04/02/17 Albuterol Inhaler [Ventolin Hfa 1 - 2 puff INHALATION Q6HR PRN #1 06/07/17 Inhaler] inhaler Promethazine/Dextromethorphan 5 ml PO TID #120 ml 06/07/17 [Phenergan DM Syrup] Allergies Allergy/AdvReac Type Severity Reaction Status Date / Time No Known Allergies Allergy Verified 06/07/17 12:16 Review of Systems ROS Statement: Those systems with pertinent positive or pertinent negative responses have been documented in the HPI. ROS Other: All systems not noted in ROS Statement are negative. Past Medical History Past Medical History: Diabetes Mellitus Additional Past Medical History / Comment(s): HX ENDOMETRIOSIS; GESTATIONAL DIABETES; Migraine headaches History of Any Multi-Drug Resistant Organisms: None Reported Past Surgical History: Tubal Ligation Additional Past Surgical History / Comment(s): LAPAROSCOPIC REMOVAL TUBE AND OVARY-right Past Anesthesia/Blood Transfusion Reactions: No Reported Reaction Additional Past Anesthesia/Blood Transfusion Reaction / Comment(s): HAD MULT INJ FOR DENTAL WORK, INEFFECTIVE. Past Psychological History: Anxiety, Depression Smoking Status: Never smoker Past Alcohol Use History: None Reported Past Drug Use History: None Reported - Past Family History Father Family Medical History: Cancer, Diabetes Mellitus, Deep Vein Thrombosis (DVT), Hypertension General Exam - General Exam Comments Initial Comments: 32-year-old female. No acute distress. Limitations: no limitations General appearance: alert, in no apparent distress Head exam: Present: atraumatic, normocephalic, normal inspection Eye exam: Present: normal appearance, PERRL, EOMI. Absent: scleral icterus, conjunctival injection, periorbital swelling ENT exam: Present: normal exam, mucous membranes moist Neck exam: Present: normal inspection. Absent: tenderness, meningismus, lymphadenopathy Respiratory exam: Present: wheezes (Minor wheezing noted.). Absent: normal lung sounds bilaterally, respiratory distress, rales, rhonchi, stridor Cardiovascular Exam: Present: regular rate, normal rhythm, normal heart sounds. Absent: systolic murmur, diastolic murmur, rubs, gallop, clicks GI/Abdominal exam: Present: soft, normal bowel sounds. Absent: distended, tenderness, guarding, rebound, rigid Extremities exam: Present: normal inspection, full ROM, normal capillary refill. Absent: tenderness, pedal edema, joint swelling, calf tenderness Back exam: Present: normal inspection Neurological exam: Present: alert, oriented X3, CN II-XII intact Psychiatric exam: Present: normal affect, normal mood Skin exam: Present: warm, dry, intact, normal color. Absent: rash Course Vital Signs 06/07/17 06/07/17 06/07/17 12:12 12:47 12:57 Temperature 99.3 F Pulse Rate 115 H 108 H 104 H Respiratory 18 Rate Blood Pressure 121/85 O2 Sat by Pulse 99 Oximetry 06/07/17 14:12 Temperature 97.8 F Pulse Rate 106 H Respiratory 16 Rate Blood Pressure 115/70 O2 Sat by Pulse 99 Oximetry Medical Decision Making - Medical Decision Making This is a 32-year-old female three days a cough and chills. She did have some minor wheezing noted.. Tested for influenza due to low-grade temperature. Patient is positive for influenza a. cxr was reviewed it to be normal. At this time I will discharge the patient with supportive measures. I discussed that she does notRequire Tamiflu and she's had the symptoms for greater than 48 hours. I discussed with your printers. All questions were answered. - Lab Data Lab Results 06/07/17 06/07/17 06/07/17 Range/Units 12:50 12:50 12:50 Urine Color Colorless Urine Appearance Clear (Clear) Urine pH 6.0 (5.0-8.0) Ur Specific [place] 1.026 (1.001-1.035) Urine Protein Negative (Negative) Urine Glucose (UA) 4+ H (Negative) Urine Ketones 1+ H (Negative) Urine Blood Negative (Negative) Urine Nitrite Negative (Negative) Urine Bilirubin Negative (Negative) Urine Urobilinogen <2.0 (<2.0) mg/dL Ur Leukocyte Esterase Negative (Negative) Urine HCG, Qual Not Detected (Not Detectd) Influenza Type A RNA Detected H (Not Detectd) Influenza Type B (PCR) Not Detected (Not Detectd) - Radiology Data Radiology results: report reviewed Chest x-ray is negative for any acute process. Disposition Clinical Impression: Influenza A Disposition: HOME SELF-CARE Condition: Good Instructions: Influenza (ED) Additional Instructions: Patient should've either Motrin or Tylenol every 4 hours. Take the cough syrup as directed. Follow-up with primary care physician. Return to the emergency department if any alarming signs or symptoms occur. Prescriptions: Albuterol Inhaler [Ventolin Hfa Inhaler] 1 - 2 puff INHALATION Q6HR PRN #1 inhaler PRN Reason: Shortness Of Breath Promethazine/Dextromethorphan [Phenergan DM Syrup] 5 ml PO TID #120 ml Referrals: Doris Houston MD [Primary Care Provider] - 1-2 days Time of Disposition: 14:01
--- NOTE | 2017-06-07 13:33 | XR ---
EXAMINATION TYPE: XR chest 2V DATE OF EXAM: 06/07/2017 COMPARISON: Chest x-ray April 02, 2017. HISTORY: Cough and shortness of breath for 3 days. Fever. TECHNIQUE: Frontal and lateral views of the chest are obtained. FINDINGS: There is no focal air space opacity, pleural effusion, or pneumothorax seen. The cardiac silhouette size is within normal limits. The osseous structures are intact. IMPRESSION: No acute cardiopulmonary process. No significant change from prior study.
[2017-06-07 14:14] VITALS: BP 115/70; PULSE 106; RESP 16; TEMP 97.8
== END 2017-06-07 14:12 | disposition home or self-care (01) ==
LOC: EC 11:45
DX: J09.X2 Influenza due to identified novel influenza A virus with other respiratory manifestations (principal); E11.9 Type 2 diabetes mellitus without complications; Z79.4 Long term (current) use of insulin
CPT/HCPCS: 71046; 81003; 81025; 87502; 94640; 99284

== ENCOUNTER 2017-06-08 19:42 | Emergency (ER) | payer OTHER ==
[2017-06-08] MEDS ORDERED: IBUPROFEN 600 MG TAB PO STA (21:07)
[2017-06-08] MEDS ORDERED: SODIUM CHLORIDE 0.9% 1,000 ML IV STA (21:07)
[2017-06-08] MEDS ORDERED: ACETAMINOPHEN TAB 325 MG TAB PO STA (21:07)
[2017-06-08] MEDS ORDERED: SODIUM CHLORIDE 0.9% 500 ML IV STA (21:07)
[2017-06-08] MEDS ORDERED: ONDANSETRON 4 MG/2 ML VIAL IVP STA (21:08)
--- NOTE | 2017-06-08 21:12 | ED ---
General Adult HPI - General Chief complaint: Abdominal Pain Stated complaint: body aches-revisit Time Seen by Provider: 06/08/17 20:32 Source: patient Mode of arrival: ambulatory Limitations: no limitations - History of Present Illness Initial comments: 32-year-old female patient presents to the emergency department today for complaints of generalized body aches and fever. Patient states that she was seen and evaluated here yesterday and diagnosed with influenza. She states that throughout the day today she has been sleeping more than usual. States she has not had an appetite. States that she has not been urinating very much. She states that she has a headache, has been lightheaded, and feels generally unwell. She states that she did take Motrin one time today around 4 PM. She states she does also have upper respiratory symptoms including cough, sore throat, nasal congestion with this. Patient denies any recent rash, shortness breath, chest pain, abdominal pain, nausea, vomiting, diarrhea, constipation, back pain, numbness, tingling, weakness, hematuria, dysuria, urinary urgency, urinary frequency, visual changes, or any other complaints. - Related Data Home Medications Medication Instructions Recorded Confirmed Insulin NPL/Insulin Lispro 30 units SQ HS 12/30/15 06/08/17 [humaLOG MIX 75-25 VIAL] Insulin NPL/Insulin Lispro 40 units SQ QAM 12/30/15 06/08/17 [humaLOG MIX 75-25 VIAL] ALPRAZolam [Xanax] 0.25 mg PO BID PRN 04/02/17 06/08/17 Escitalopram [Lexapro] 5 mg PO DAILY PRN 04/02/17 06/08/17 Previous Rx's Medication Instructions Recorded Ibuprofen [Motrin] 600 mg PO Q8HR PRN #24 tab 04/02/17 Albuterol Inhaler [Ventolin Hfa 1 - 2 puff INHALATION Q6HR PRN #1 06/07/17 Inhaler] inhaler Promethazine/Dextromethorphan 5 ml PO TID #120 ml 06/07/17 [Phenergan DM Syrup] Allergies Allergy/AdvReac Type Severity Reaction Status Date / Time No Known Allergies Allergy Verified 06/08/17 20:54 Review of Systems ROS Statement: Those systems with pertinent positive or pertinent negative responses have been documented in the HPI. ROS Other: All systems not noted in ROS Statement are negative. Past Medical History Past Medical History: Diabetes Mellitus Additional Past Medical History / Comment(s): HX ENDOMETRIOSIS; GESTATIONAL DIABETES; Migraine headaches History of Any Multi-Drug Resistant Organisms: None Reported Past Surgical History: Tubal Ligation Additional Past Surgical History / Comment(s): LAPAROSCOPIC REMOVAL TUBE AND OVARY-right Past Anesthesia/Blood Transfusion Reactions: No Reported Reaction Additional Past Anesthesia/Blood Transfusion Reaction / Comment(s): HAD MULT INJ FOR DENTAL WORK, INEFFECTIVE. Past Psychological History: Anxiety, Depression Smoking Status: Never smoker Past Alcohol Use History: None Reported Past Drug Use History: None Reported - Past Family History Father Family Medical History: Cancer, Diabetes Mellitus, Deep Vein Thrombosis (DVT), Hypertension General Exam Limitations: no limitations General appearance: alert, in no apparent distress, other (This is a well- developed, well-nourished adult female patient in no acute distress. Vital signs upon presentation were temperature 101.3F, pulse 152, respirations 18, blood pressure 123/86, pulse ox 97% on room air.) Eye exam: Present: normal appearance, PERRL, EOMI. Absent: scleral icterus, conjunctival injection, periorbital swelling ENT exam: Present: normal exam, mucous membranes moist, TM's normal bilaterally. Absent: normal oropharynx (Pharyngeal erythema) Neck exam: Present: normal inspection. Absent: tenderness, meningismus, lymphadenopathy Respiratory exam: Present: normal lung sounds bilaterally. Absent: respiratory distress, wheezes, rales, rhonchi, stridor Cardiovascular Exam: Present: normal rhythm, tachycardia, normal heart sounds, systolic murmur. Absent: diastolic murmur, rubs, gallop, clicks GI/Abdominal exam: Present: soft, normal bowel sounds. Absent: distended, tenderness, guarding, rebound, rigid Neurological exam: Present: alert, oriented X3, CN II-XII intact Psychiatric exam: Present: normal affect, normal mood Skin exam: Present: warm, dry, intact, normal color. Absent: rash Course Vital Signs 06/08/17 06/08/17 20:18 23:27 Temperature 101.3 F H 99.0 F Pulse Rate 152 H 113 H Respiratory 18 16 Rate Blood Pressure 123/86 128/79 O2 Sat by Pulse 97 98 Oximetry EKG Findings - EKG Comments: EKG Findings:: EKG obtained at 2153 shows sinus tachycardia with a low voltage QRS. Ventricular rate is 109, P return of a 152, QR amish 72, QT 346, QTC 465. Medical Decision Making - Medical Decision Making 32-year-old female patient presents to the emergency department today for evaluation of generalized body aches, fever, and feeling generally unwell. Patient was diagnosed with influenza yesterday. Patient is have a history of diabetes, labs were obtained, urine showed 4+ glucose and 1+ ketones. Labs revealed an elevated blood sugar of 529, anion gap is 10, acetone was positive. Patient was tachycardic upon admission, temperature was elevated. Patient states that she took only her morning dose of insulin today. Physical examination did also reveal a murmur, patient states that this is new and she's never been told she's had a heart murmur before. EKG showed sinus tachycardia. I did discuss the findings with the patient and recommended that she stay for admission. She states that she has to get her children off to school in the morning and is therefore unable to stay. She states that she will return tomorrow. We did give her too half liters of normal saline. We administered 8 units of NovoLog subcutaneously. Patient is tolerating oral intake at this time. She states she is feeling better and again would like to be discharged home. We will attempt discharge at this time, she is urged to return tomorrow. She is instructed to return here immediately for any new, worsening, or concerning symptoms. She verbalizes understanding and agrees with this plan. - Lab Data Result diagrams: 06/08/17 20:50 06/08/17 20:50 Lab Results 06/08/17 06/08/17 06/08/17 Range/Units 20:50 20:50 20:50 WBC 5.0 (3.8-10.6) k/uL RBC 4.78 (3.80-5.40) m/uL Hgb 14.2 (11.4-16.0) gm/dL Hct 42.2 (34.0-46.0) % MCV 88.3 (80.0-100.0) fL MCH 29.6 (25.0-35.0) pg MCHC 33.6 (31.0-37.0) g/dL RDW 12.1 (11.5-15.5) % Plt Count 254 (150-450) k/uL Neutrophils % 62 % Lymphocytes % 25 % Monocytes % 9 % Eosinophils % 1 % Basophils % 1 % Neutrophils # 3.1 (1.3-7.7) k/uL Lymphocytes # 1.2 (1.0-4.8) k/uL Monocytes # 0.4 (0-1.0) k/uL Eosinophils # 0.1 (0-0.7) k/uL Basophils # 0.1 (0-0.2) k/uL Sodium 131 L (137-145) mmol/L Potassium 4.3 (3.5-5.1) mmol/L Chloride 98 (98-107) mmol/L Carbon Dioxide 23 (22-30) mmol/L Anion Gap 10 mmol/L BUN 7 (7-17) mg/dL Creatinine 0.50 L (0.52-1.04) mg/dL Est GFR (MDRD) Af Amer >60 (>60 ml/min/1.73 sqM) Est GFR (MDRD) Non-Af >60 (>60 ml/min/1.73 sqM) Glucose 529 H* (74-99) mg/dL POC Glucose (mg/dL) (75-99) mg/dL POC Glu Geospatial Analyst ID Calcium 8.3 L (8.4-10.2) mg/dL Total Bilirubin 0.3 (0.2-1.3) mg/dL AST 16 (14-36) U/L ALT 29 (9-52) U/L Alkaline Phosphatase 83 (38-126) U/L Total Protein 5.3 L (6.3-8.2) g/dL Albumin 3.0 L (3.5-5.0) g/dL Urine Color Colorless Urine Appearance Clear (Clear) Urine pH 6.5 (5.0-8.0) Ur Specific [place] 1.027 (1.001-1.035) Urine Protein Negative (Negative) Urine Glucose (UA) 4+ H (Negative) Urine Ketones 1+ H (Negative) Urine Blood Negative (Negative) Urine Nitrite Negative (Negative) Urine Bilirubin Negative (Negative) Urine Urobilinogen <2.0 (<2.0) mg/dL Ur Leukocyte Esterase Negative (Negative) Acetone, Qual Positive (Negative) 06/08/17 Range/Units 23:25 WBC (3.8-10.6) k/uL RBC (3.80-5.40) m/uL Hgb (11.4-16.0) gm/dL Hct (34.0-46.0) % MCV (80.0-100.0) fL MCH (25.0-35.0) pg MCHC (31.0-37.0) g/dL RDW (11.5-15.5) % Plt Count (150-450) k/uL Neutrophils % % Lymphocytes % % Monocytes % % Eosinophils % % Basophils % % Neutrophils # (1.3-7.7) k/uL Lymphocytes # (1.0-4.8) k/uL Monocytes # (0-1.0) k/uL Eosinophils # (0-0.7) k/uL Basophils # (0-0.2) k/uL Sodium (137-145) mmol/L Potassium (3.5-5.1) mmol/L Chloride (98-107) mmol/L Carbon Dioxide (22-30) mmol/L Anion Gap mmol/L BUN (7-17) mg/dL Creatinine (0.52-1.04) mg/dL Est GFR (MDRD) Af Amer (>60 ml/min/1.73 sqM) Est GFR (MDRD) Non-Af (>60 ml/min/1.73 sqM) Glucose (74-99) mg/dL POC Glucose (mg/dL) 288 H (75-99) mg/dL POC Glu Geospatial Analyst ID Alyse Monk Calcium (8.4-10.2) mg/dL Total Bilirubin (0.2-1.3) mg/dL AST (14-36) U/L ALT (9-52) U/L Alkaline Phosphatase (38-126) U/L Total Protein (6.3-8.2) g/dL Albumin (3.5-5.0) g/dL Urine Color Urine Appearance (Clear) Urine pH (5.0-8.0) Ur Specific [place] (1.001-1.035) Urine Protein (Negative) Urine Glucose (UA) (Negative) Urine Ketones (Negative) Urine Blood (Negative) Urine Nitrite (Negative) Urine Bilirubin (Negative) Urine Urobilinogen (<2.0) mg/dL Ur Leukocyte Esterase (Negative) Acetone, Qual (Negative) Disposition Clinical Impression: Influenza, Hyperglycemia, Heart murmur Disposition: HOME SELF-CARE Condition: Fair Instructions: Influenza (ED), Managing Diabetes During Sick Days (ED), Heart Murmur (ED) Additional Instructions: Increase fluids. Watch your blood sugars closely. Alternate Tylenol and Motrin for fever control. Return here tomorrow as we discussed. Follow up with her primary care physician for recheck as soon as possible. Return here immediately for any other new, worsening, or concerning symptoms. Referrals: Doris Houston MD [Primary Care Provider] - 1-2 days Time of Disposition: 23:29
[2017-06-08 21:24] LABS: Appearance,Urine Clear (Clear); Bilirubin,Urine Negative (Negative); Blood,Urine Negative (Negative); Color,Urine Colorless; Glucose,Urine (UA) 4+ (Negative); Ketones,Urine 1+ (Negative); Leukocyte Esterase,Urine Negative (Negative); Nitrite,Urine Negative (Negative); PH, Urine 6.5 (5.0-8.0); Protein,Urine Negative (Negative); Specific Gravity,Urine 1.027 (1.001-1.035); Urobilinogen,Urine <2.0 mg/dL (<2.0)
[2017-06-08 22:02] LABS: Basophils # (A) 0.1 k/uL (0-0.2); Basophils % (A) 1 %; Eosinophils # (A) 0.1 k/uL (0-0.7); Eosinophils % (A) 1 %; HCT 42.2 % (34.0-46.0); HGB 14.2 gm/dL (11.4-16.0); Lymphocytes # (A) 1.2 k/uL (1.0-4.8); Lymphocytes % (A) 25 %; MCH 29.6 pg (25.0-35.0); MCHC 33.6 g/dL (31.0-37.0); MCV 88.3 fL (80.0-100.0); Mean Platelet Volume 8.1; Monocytes # (A) 0.4 k/uL (0-1.0); Monocytes % (A) 9 %; Neutrophils # (A) 3.1 k/uL (1.3-7.7); Neutrophils % (A) 62 %; Platelet Count 254 k/uL (150-450); RBC 4.78 m/uL (3.80-5.40); RDW 12.1 % (11.5-15.5)
[2017-06-08 22:07] LABS: ALT 29 U/L (9-52); AST 16 U/L (14-36); Alkaline Phosphatase 83 U/L (38-126); Anion Gap 10 mmol/L; Blood Urea Nitrogen 7 mg/dL (7-17); Calcium 8.3 mg/dL (8.4-10.2); Carbon Dioxide 23 mmol/L (22-30); Chloride 98 mmol/L (98-107); Potassium 4.3 mmol/L (3.5-5.1); Sodium 131 mmol/L (137-145); Total Bilirubin 0.3 mg/dL (0.2-1.3); Total Protein 5.3 g/dL (6.3-8.2)
[2017-06-08 22:09] LABS: Glucose 529 mg/dL (74-99)
[2017-06-08] MEDS ORDERED: SODIUM CHLORIDE 0.9% 1,000 ML IV ONE (22:11)
[2017-06-08] MEDS ORDERED: INSULIN ASPART 100 UNIT/ML 1 ML 10 ML VIAL SQ ONE (22:18)
[2017-06-08 23:27] VITALS: BP 128/79; PULSE 113; RESP 16; TEMP 99
[2017-06-08 23:28] LABS: Glucose,Whole Blood 288 mg/dL (75-99)
== END 2017-06-08 23:57 | disposition home or self-care (01) ==
LOC: EC 19:42
DX: E11.65 Type 2 diabetes mellitus with hyperglycemia (principal); J11.1 Influenza due to unidentified influenza virus with other respiratory manifestations; R01.1 Cardiac murmur, unspecified; R81 Glycosuria; R82.4 Acetonuria; R00.0 Tachycardia, unspecified; Z79.4 Long term (current) use of insulin; Z83.3 Family history of diabetes mellitus
CPT/HCPCS: 36415; 93005; 80053; 82009; 85025; 81003; 99284; 96374; 96361 ×2; J2405

== ENCOUNTER 2017-08-13 23:14 | Emergency (ER) | payer OTHER ==
[2017-08-13 23:29] VITALS: RESP 18
--- NOTE | 2017-08-13 23:43 | ED ---
General Adult HPI - General Chief complaint: Extremity Injury, Lower Stated complaint: Ankle Pain Source: patient, family, RN notes reviewed Mode of arrival: ambulatory Limitations: no limitations - History of Present Illness Initial comments: Chief complaint history of present illness a 32-year-old female who is had discomfort to the lateral mid left fibula area for 2 weeks. on examination patient also has lumbosacral discomfort. No direct injury to either. - Related Data Home Medications Medication Instructions Recorded Confirmed Insulin NPL/Insulin Lispro 30 units SQ HS 12/30/15 06/08/17 [humaLOG MIX 75-25 VIAL] Insulin NPL/Insulin Lispro 40 units SQ QAM 12/30/15 06/08/17 [humaLOG MIX 75-25 VIAL] ALPRAZolam [Xanax] 0.25 mg PO BID PRN 04/02/17 06/08/17 Escitalopram [Lexapro] 5 mg PO DAILY PRN 04/02/17 06/08/17 Previous Rx's Medication Instructions Recorded Ibuprofen [Motrin] 600 mg PO Q8HR PRN #24 tab 04/02/17 Albuterol Inhaler [Ventolin Hfa 1 - 2 puff INHALATION Q6HR PRN #1 06/07/17 Inhaler] inhaler Promethazine/Dextromethorphan 5 ml PO TID #120 ml 06/07/17 [Phenergan DM Syrup] Ibuprofen [Motrin] 600 mg PO Q6HR PRN #20 tab 08/14/17 methylPREDNISolone Dose Pack 4 mg PO DIRECTED #21 package 08/14/17 [Medrol Dose Pack] Allergies Allergy/AdvReac Type Severity Reaction Status Date / Time No Known Allergies Allergy Verified 08/13/17 23:27 Review of Systems ROS Statement: Those systems with pertinent positive or pertinent negative responses have been documented in the HPI. Review of systems all systems are reviewed and the only complaint is discomfort to the lateral aspect of her left lower leg. No injury. No evidence of any swelling or bruising or deformity. On a fender further examination and questioning she did admit to having low back pain. We did discuss possibility of sciatic type distribution discomfort. Past medical problems insulin-dependent diabetes mellitus, endometriosis. The patient's surgeries include having had a tubal ligation followed by partial hysterectomy. Family history father had throat cancer. Patient denies any ALLERGIES, nonsmoker nondrinker. ROS Other: All systems not noted in ROS Statement are negative. Past Medical History Past Medical History: Diabetes Mellitus Additional Past Medical History / Comment(s): HX ENDOMETRIOSIS; GESTATIONAL DIABETES; Migraine headaches History of Any Multi-Drug Resistant Organisms: None Reported Past Surgical History: Tubal Ligation Additional Past Surgical History / Comment(s): LAPAROSCOPIC REMOVAL TUBE AND OVARY-right Past Anesthesia/Blood Transfusion Reactions: No Reported Reaction Additional Past Anesthesia/Blood Transfusion Reaction / Comment(s): HAD MULT INJ FOR DENTAL WORK, INEFFECTIVE. Past Psychological History: Anxiety, Depression Smoking Status: Never smoker Past Alcohol Use History: None Reported Past Drug Use History: None Reported - Past Family History Father Family Medical History: Cancer, Diabetes Mellitus, Deep Vein Thrombosis (DVT), Hypertension General Exam - General Exam Comments Initial Comments: General: The patient is awake and alert, he with a chief complaint of discomfort to her lower left leg. On further examination and questioning she also has discomfort to her lumbosacral spine. No signs shows temperature 98.5 pulse 113 respiratory rate 18 pulse ox on percent room air blood pressure 133/85 Eye: Pupils are equal, round and reactive to light, extra-ocular movements are intact ; there is normal conjunctiva bilaterally. No signs of icterus. Ears, nose, mouth and throat: There are moist mucous membranes and no oral lesions. Neck: The neck is supple, there is no tenderness . Cardiovascular: There is a regular rate and rhythm. No murmur, rub or gallop is appreciated. Respiratory: Lungs are clear to auscultation, respirations are non-labored, breath sounds are equal. No wheezes, stridor, rales, or rhonchi. Gastrointestinal: Abdomen nontender Back: Mild discomfort the lumbosacral spine. Positive leg lift test. Musculoskeletal: 2 weeks discomfort to her lateral left leg. No direct injury, no bruising. Range of motion is normal. Neurological: No neuro deficits that we did discuss sciatic distribution discomfort with lumbar radiculopathy causing discomfort to the lower left lateral leg. Skin: No rashes. Limitations: no limitations Course Vital Signs 08/13/17 23:27 Temperature 98.5 F Pulse Rate 113 H Respiratory 18 Rate Blood Pressure 133/85 O2 Sat by Pulse 100 Oximetry Medical Decision Making - Medical Decision Making Medical decision making; this is a 32-year-old female with complaint of discomfort to her lumbar spine and lateral lower left leg. No injury to either area. No difficulty urinating. No numbness no tingling. X-ray of the left tib fib is essentially normal no acute bony irregularity appreciated. Awaiting radiologist's impression. X-ray lumbosacral spine did not show any acute bony irregularity. Awaiting radiologist's final impression. The patient be placed on a Medrol Dosepak and advised take ibuprofen 600 mg every 6 hours for discomfort. Also advised to follow with family physician. Disposition Clinical Impression: Lumbosacral pain, Lumbar radiculopathy Disposition: HOME SELF-CARE Condition: Fair Additional Instructions: Do gentle stretching. Use heat alternating with ice. Take medications as directed. Follow-up with family physician. Prescriptions: Ibuprofen [Motrin] 600 mg PO Q6HR PRN #20 tab PRN Reason: Pain methylPREDNISolone Dose Pack [Medrol Dose Pack] 4 mg PO DIRECTED #21 package Referrals: None,Stated [REFERRING] - 1-2 days Time of Disposition: 00:43
[2017-08-14 01:09] VITALS: BP 128/69; PULSE 96; TEMP 97.9
--- NOTE | 2017-08-14 01:10 | XR ---
EXAMINATION TYPE: XR tibia fibula LT DATE OF EXAM: 08/14/2017 COMPARISON: NONE HISTORY: Leg pain TECHNIQUE: 4 views FINDINGS: The tibia and fibula appear intact. I see no fracture. Ankle mortise is anatomic. The joint spaces are fairly normal. IMPRESSION: Negative left tibia and fibula exam.
--- NOTE | 2017-08-14 01:11 | XR ---
EXAMINATION TYPE: XR lumbosacral spine min 4V DATE OF EXAM: 08/14/2017 COMPARISON: NONE HISTORY: Back pain TECHNIQUE: 5 views FINDINGS: Lumbar vertebra have normal spacing and alignment. Posterior elements are intact. Sacroilia c joints appear normal. There is no evidence of compression fracture. IMPRESSION: Normal lumbar spine.
== END 2017-08-14 01:08 | disposition home or self-care (01) ==
LOC: EC 23:14
DX: M54.16 Radiculopathy, lumbar region (principal); M79.605 Pain in left leg; E11.9 Type 2 diabetes mellitus without complications; Z79.4 Long term (current) use of insulin
CPT/HCPCS: 72110; 99283

== ENCOUNTER 2017-10-13 11:25 | Emergency (ER) | payer OTHER ==
[2017-10-13 11:51] VITALS: BP 134/79; RESP 18; TEMP 98.5
--- NOTE | 2017-10-13 12:43 | XR ---
EXAMINATION TYPE: XR lumbar spine 2 or 3V DATE OF EXAM: 10/13/2017 CLINICAL HISTORY: Lower extremity radiculopathy. TECHNIQUE: Frontal and lateral images of the lumbar spine are obtained. COMPARISON: None FINDINGS: There are 5 lumbar type vertebral bodies identified. The lumbar spine shows satisfactory alignment without evidence of acute fracture or dislocation. Vertebral body heights and disk space he ights are within normal limits. Mild facet arthropathy is seen at L5-S1. The overlying soft tissue a ppears unremarkable. IMPRESSION: No acute fracture or malalignment is seen in the lumbar spine.
--- NOTE | 2017-10-13 12:46 | ED ---
General Adult HPI - General Chief complaint: Back Pain/Injury Stated complaint: Inflamed legs from diabetes Time Seen by Provider: 10/13/17 12:02 Source: patient, RN notes reviewed Mode of arrival: ambulatory Limitations: no limitations - History of Present Illness Initial comments: 32-year-old female presents to the emergency department for a chief complaint of back pain 2 weeks. Patient states she has shooting pain down the left leg which is also beginning to develop in the right leg. Patient denies numbness in the lower extremities. Patient denies any bladder or bowel changes and states she is urinating regularly. Patient denies IV drug use. Patient denies any injury to the back. Patient states she saw her "diabetes doctor" today who told her she should come to the ER to be evaluated. Patient states that she is a type I diabetic and the doctor gave her instructions for her insulin if we put her on steroids. The doctor also referred her to a neurologist that she will be seeing for this. Patient states she would like x-rays so that her doctor can see them. Patient denies any chance of . Patient has no other complaints at this time including shortness of breath, chest pain, abdominal pain, nausea or vomiting, headache, or visual changes. - Related Data Home Medications Medication Instructions Recorded Confirmed Insulin NPL/Insulin Lispro 30 units SQ HS 12/30/15 06/08/17 [humaLOG MIX 75-25 VIAL] Insulin NPL/Insulin Lispro 40 units SQ QAM 12/30/15 06/08/17 [humaLOG MIX 75-25 VIAL] ALPRAZolam [Xanax] 0.25 mg PO BID PRN 04/02/17 06/08/17 Escitalopram [Lexapro] 5 mg PO DAILY PRN 04/02/17 06/08/17 Previous Rx's Medication Instructions Recorded Ibuprofen [Motrin] 600 mg PO Q8HR PRN #24 tab 04/02/17 Albuterol Inhaler [Ventolin Hfa 1 - 2 puff INHALATION Q6HR PRN #1 06/07/17 Inhaler] inhaler Promethazine/Dextromethorphan 5 ml PO TID #120 ml 06/07/17 [Phenergan DM Syrup] Ibuprofen [Motrin] 600 mg PO Q6HR PRN #20 tab 08/14/17 methylPREDNISolone Dose Pack 4 mg PO DIRECTED #21 package 08/14/17 [Medrol Dose Pack] Acetaminophen [Tylenol] 500 mg PO Q4-6H PRN #20 tab 10/13/17 Ibuprofen [Motrin] 600 mg PO Q8HR PRN #20 tab 10/13/17 methylPREDNISolone Dose Pack 4 mg PO DIRECTED #21 package 10/13/17 [Medrol Dose Pack] Allergies Allergy/AdvReac Type Severity Reaction Status Date / Time No Known Allergies Allergy Verified 10/13/17 11:50 Review of Systems ROS Statement: Those systems with pertinent positive or pertinent negative responses have been documented in the HPI. ROS Other: All systems not noted in ROS Statement are negative. Past Medical History Past Medical History: Diabetes Mellitus Additional Past Medical History / Comment(s): HX ENDOMETRIOSIS; GESTATIONAL DIABETES; Migraine headaches History of Any Multi-Drug Resistant Organisms: None Reported Past Surgical History: Tubal Ligation Additional Past Surgical History / Comment(s): LAPAROSCOPIC REMOVAL TUBE AND OVARY-right Past Anesthesia/Blood Transfusion Reactions: No Reported Reaction Additional Past Anesthesia/Blood Transfusion Reaction / Comment(s): HAD MULT INJ FOR DENTAL WORK, INEFFECTIVE. Past Psychological History: Anxiety, Depression Smoking Status: Never smoker Past Alcohol Use History: None Reported Past Drug Use History: None Reported - Past Family History Father Family Medical History: Cancer, Diabetes Mellitus, Deep Vein Thrombosis (DVT), Hypertension General Exam Limitations: no limitations General appearance: alert, in no apparent distress Head exam: Present: atraumatic, normocephalic, normal inspection Eye exam: Present: normal appearance, PERRL, EOMI. Absent: scleral icterus, conjunctival injection, periorbital swelling ENT exam: Present: normal exam, mucous membranes moist Neck exam: Present: normal inspection. Absent: tenderness, meningismus, lymphadenopathy Respiratory exam: Present: normal lung sounds bilaterally. Absent: respiratory distress, wheezes, rales, rhonchi, stridor Cardiovascular Exam: Present: regular rate, normal rhythm, normal heart sounds. Absent: systolic murmur, diastolic murmur, rubs, gallop, clicks Back exam: Present: tenderness (tenderness to the lumbar spine), paraspinal tenderness (paraspinal tenderness in lumbar back.), vertebral tenderness ( lumbar spine tenderness), other (Pedal pulse 2+ in lower extremities bilat. Cap refill < 2 seconds. Full ROM in feet bilaterally. Sensation intact in feel bilaterally. ). Absent: full ROM (Limited flexion to about 45 degrees. limited extension to about 20 degrees.), CVA tenderness (R), CVA tenderness (L) Course Vital Signs 10/13/17 11:48 Temperature 98.5 F Pulse Rate 127 H Respiratory 18 Rate Blood Pressure 134/79 O2 Sat by Pulse 99 Oximetry Medical Decision Making - Medical Decision Making 32-year-old female presents to the emergency department for a chief complaint of back pain 2 weeks. Patient states she has shooting pain down the left leg which is now beginning in the right leg. Patient denies any bladder or bowel changes, IV drug use, or injury to the back. Patient has tried over-the- counter Advil with minimal relief. Patient is a type I diabetic. She has instructions on how to adjust her insulin if she is given a Medrol Dosepak. Dr. 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 Patient denies numbness in the lower extremities. On exam patient has limited range of motion of the low back. Pedal pulse 2+ and Refill less than 2 seconds in the lower extremities bilaterally. Sensation intact in lower extremities bilaterally. X-ray shows no acute fracture or malalignment in the lumbar spine. Patient likely has symptoms of sciatica. Patient will be given a Medrol Dosepak and she will adjust her insulin according to the instructions given to her that her doctor. She will follow-up with the neurologist at her appointment. She will return to the emergency Department if she has any worsening symptoms including bladder or bowel changes. Disposition Clinical Impression: Sciatica, Paresthesia Disposition: HOME SELF-CARE Condition: Good Instructions: Sciatica (ED), Lower Back Exercises (ED) Additional Instructions: Please take Motrin and Tylenol for pain relief. Please take steroid as directed and adjust your insulin as directed by your physician. Follow-up with neurologist and primary care provider. Return to the emergency department if you have any worsening symptoms or changes in bladder or bowel function. Prescriptions: Acetaminophen [Tylenol] 500 mg PO Q4-6H PRN #20 tab PRN Reason: Pain Ibuprofen [Motrin] 600 mg PO Q8HR PRN #20 tab PRN Reason: Pain methylPREDNISolone Dose Pack [Medrol Dose Pack] 4 mg PO DIRECTED #21 package Is patient prescribed a controlled substance at d/c from ED?: No Referrals: Jairo Conroy MD [Primary Care Provider] - 1-2 days Time of Disposition: 12:51
[2017-10-13] MEDS ORDERED: KETOROLAC 30 MG/ML 1 ML VIAL IM STA (13:00)
[2017-10-13 13:08] VITALS: PULSE 98
== END 2017-10-13 13:08 | disposition home or self-care (01) ==
LOC: EC 11:25
DX: M54.30 Sciatica, unspecified side (principal); E10.9 Type 1 diabetes mellitus without complications; Z79.4 Long term (current) use of insulin
CPT/HCPCS: 72100; 99283; 96372; J1885

== ENCOUNTER 2017-10-17 19:59 | Observation (INO) | payer OTHER ==
[2017-10-17] MEDS ORDERED: MORPHINE SULFATE 2 MG/ML SYRINGE IVP STA (20:41)
[2017-10-17] MEDS ORDERED: ONDANSETRON 4 MG/2 ML VIAL IVP STA (20:41)
[2017-10-17] MEDS ORDERED: SODIUM CHLORIDE 0.9% 1,000 ML IV STA (20:41)
[2017-10-17] MEDS ORDERED: LORazepam 1 MG TAB PO STA (20:53)
[2017-10-17 21:02] LABS: Basophils % (A) 0 %; Eosinophils % (A) 1 %; HCT 42.8 % (34.0-46.0); HGB 14.7 gm/dL (11.4-16.0); Lymphocytes # (A) 2.4 k/uL (1.0-4.8); Lymphocytes % (A) 29 %; MCH 29.9 pg (25.0-35.0); MCHC 34.3 g/dL (31.0-37.0); MCV 87.2 fL (80.0-100.0); Monocytes # (A) 0.5 k/uL (0-1.0); Monocytes % (A) 6 %; Neutrophils % (A) 62 %; Platelet Count 346 k/uL (150-450); RBC 4.91 m/uL (3.80-5.40); RDW 12.4 % (11.5-15.5); WBC 8.1 k/uL (3.8-10.6)
[2017-10-17 21:11] LABS: Appearance,Urine Clear (Clear); Bacteria,Urine Rare /hpf; Bilirubin,Urine Negative (Negative); Blood,Urine Negative (Negative); Color,Urine Light Yellow; Glucose,Urine (UA) 4+ (Negative); Leukocyte Esterase,Urine Small (Negative); Mucus,Urine Rare /hpf; Nitrite,Urine Negative (Negative); PH, Urine 5.5 (5.0-8.0); Protein,Urine Negative (Negative); RBC,Urine 4 /hpf (0-5); Specific Gravity,Urine 1.033 (1.001-1.035); Squamous Epithelial Cell,Urine 5 /hpf (0-4); Urobilinogen,Urine <2.0 mg/dL (<2.0); WBC,Urine 10 /hpf (0-5)
[2017-10-17 21:14] LABS: Ketones,Urine 4+ (Negative)
--- NOTE | 2017-10-17 21:14 | ED ---
Abdominal Pain HPI - General Chief Complaint: Abdominal Pain Stated Complaint: Abdominal Pain Time Seen by Provider: 10/17/17 20:33 Source: patient Mode of arrival: ambulatory Limitations: no limitations - History of Present Illness Initial Comments: 32 years old female complains about abdominal pain ice around the umbilicus pain started 2 days ago pain is affecting the abdomen diffusely said she was recently put on steroids for her back pain also has a history of diabetes she is status post tubal ligation complaining about nausea and vomiting she moved her bowels this morning dose was normal no history of any Crohn's or ulcerative colitis no fever no chills no headaches no neck stiffness no chest pain or shortness of breath denies any frequency urgency dysuria has a chronic back pain - Related Data Home Medications Medication Instructions Recorded Confirmed Insulin NPL/Insulin Lispro 30 units SQ HS 12/30/15 06/08/17 [humaLOG MIX 75-25 VIAL] Insulin NPL/Insulin Lispro 40 units SQ QAM 12/30/15 06/08/17 [humaLOG MIX 75-25 VIAL] ALPRAZolam [Xanax] 0.25 mg PO BID PRN 04/02/17 06/08/17 Escitalopram [Lexapro] 5 mg PO DAILY PRN 04/02/17 06/08/17 Previous Rx's Medication Instructions Recorded Ibuprofen [Motrin] 600 mg PO Q8HR PRN #24 tab 04/02/17 Albuterol Inhaler [Ventolin Hfa 1 - 2 puff INHALATION Q6HR PRN #1 06/07/17 Inhaler] inhaler Promethazine/Dextromethorphan 5 ml PO TID #120 ml 06/07/17 [Phenergan DM Syrup] Ibuprofen [Motrin] 600 mg PO Q6HR PRN #20 tab 08/14/17 methylPREDNISolone Dose Pack 4 mg PO DIRECTED #21 package 08/14/17 [Medrol Dose Pack] Acetaminophen [Tylenol] 500 mg PO Q4-6H PRN #20 tab 10/13/17 Ibuprofen [Motrin] 600 mg PO Q8HR PRN #20 tab 10/13/17 methylPREDNISolone Dose Pack 4 mg PO DIRECTED #21 package 10/13/17 [Medrol Dose Pack] Allergies Allergy/AdvReac Type Severity Reaction Status Date / Time No Known Allergies Allergy Verified 10/17/17 20:10 Review of Systems ROS Statement: Those systems with pertinent positive or pertinent negative responses have been documented in the HPI. ROS Other: All systems not noted in ROS Statement are negative. Past Medical History Past Medical History: Diabetes Mellitus Additional Past Medical History / Comment(s): HX ENDOMETRIOSIS; GESTATIONAL DIABETES; Migraine headaches History of Any Multi-Drug Resistant Organisms: None Reported Past Surgical History: Tubal Ligation Additional Past Surgical History / Comment(s): LAPAROSCOPIC REMOVAL TUBE AND OVARY-right Past Anesthesia/Blood Transfusion Reactions: No Reported Reaction Additional Past Anesthesia/Blood Transfusion Reaction / Comment(s): HAD MULT INJ FOR DENTAL WORK, INEFFECTIVE. Past Psychological History: Anxiety, Depression Smoking Status: Never smoker Past Alcohol Use History: None Reported Past Drug Use History: None Reported - Past Family History Father Family Medical History: Cancer, Diabetes Mellitus, Deep Vein Thrombosis (DVT), Hypertension General Exam - General Exam Comments Initial Comments: General: The patient is awake and alert, in severe distress abdominal pain is 10 over 10 he is also very anxious any history of anxiety. For anxiety Skin: Skin is warm and dry and no rashes or lesions are noted. Eye: Pupils are equal, round and reactive to light, extra-ocular movements are intact; there is normal conjunctiva bilaterally. Ears, nose, mouth and throat: There are moist mucous membranes and no oral lesions. Neck: The neck is supple, there is no tenderness or JVD. Cardiovascular: There is a regular rate and rhythm. No murmur, rub or gallop is appreciated. Respiratory: To auscultation bilateral, no wheezing no rhonchi no distress respiratory montanez noticed Gastrointestinal: Abdomen is tender all over, patient is crying with pain exam is inconclusive Back: There is no tenderness to palpation in the midline. There is no obvious deformity. Musculoskeletal: Normal ROM, no tenderness, There is no pedal edema. There is no calf tenderness or swelling. No cords were appreciated. Neurological: CN II-XII intact, Cranial nerves III through XII are intact. There are no obvious motor or sensory deficits. Coordination appears grossly intact. Speech is normal. Psychiatric: Cooperative, anxious, crying Limitations: no limitations Course Vital Signs 10/17/17 20:08 Temperature 98.4 F Pulse Rate 136 H Respiratory 18 Rate Blood Pressure 141/97 O2 Sat by Pulse 97 Oximetry Order C-reactive protein CBC, CMP, urinalysis and acute abdominal series, she is nothing IV fluids and IV morphine along with Zofran is started Medical Decision Making - Lab Data Result diagrams: 10/17/17 20:41 10/17/17 20:41 Lab Results 10/17/17 10/17/17 10/17/17 Range/Units 20:41 20:41 20:41 WBC 8.1 (3.8-10.6) k/uL RBC 4.91 (3.80-5.40) m/uL Hgb 14.7 (11.4-16.0) gm/dL Hct 42.8 (34.0-46.0) % MCV 87.2 (80.0-100.0) fL MCH 29.9 (25.0-35.0) pg MCHC 34.3 (31.0-37.0) g/dL RDW 12.4 (11.5-15.5) % Plt Count 346 (150-450) k/uL Neutrophils % 62 % Lymphocytes % 29 % Monocytes % 6 % Eosinophils % 1 % Basophils % 0 % Neutrophils # 5.0 (1.3-7.7) k/uL Lymphocytes # 2.4 (1.0-4.8) k/uL Monocytes # 0.5 (0-1.0) k/uL Eosinophils # 0.0 (0-0.7) k/uL Basophils # 0.0 (0-0.2) k/uL Sodium 139 (137-145) mmol/L Potassium 4.4 (3.5-5.1) mmol/L Chloride 100 (98-107) mmol/L Carbon Dioxide 17 L (22-30) mmol/L Anion Gap 22 mmol/L BUN 16 (7-17) mg/dL Creatinine 0.40 L (0.52-1.04) mg/dL Est GFR (CKD-EPI)AfAm >90 (>60 ml/min/1.73 sqM) Est GFR (CKD-EPI)NonAf >90 (>60 ml/min/1.73 sqM) Glucose 377 H (74-99) mg/dL Calcium 9.4 (8.4-10.2) mg/dL Total Bilirubin 1.8 H (0.2-1.3) mg/dL AST 11 L (14-36) U/L ALT 23 (9-52) U/L Alkaline Phosphatase 98 (38-126) U/L C-Reactive Protein <5.0 (<10.0) mg/L Total Protein 7.6 (6.3-8.2) g/dL Albumin 4.6 (3.5-5.0) g/dL Amylase 32 (30-110) U/L Lipase 95 (23-300) U/L Urine Color Light Yellow Urine Appearance Clear (Clear) Urine pH 5.5 (5.0-8.0) Ur Specific [place] 1.033 (1.001-1.035) Urine Protein Negative (Negative) Urine Glucose (UA) 4+ H (Negative) Urine Ketones 4+ H (Negative) Urine Blood Negative (Negative) Urine Nitrite Negative (Negative) Urine Bilirubin Negative (Negative) Urine Urobilinogen <2.0 (<2.0) mg/dL Ur Leukocyte Esterase Small H (Negative) Urine RBC 4 (0-5) /hpf Urine WBC 10 H (0-5) /hpf Ur Squamous Epith Cells 5 H (0-4) /hpf Urine Bacteria Rare H (None) /hpf Urine Mucus Rare H (None) /hpf Critical Care Time Total Critical Care Time: 45 Critical Care Time: Resented with a severe abdominal pain nausea vomiting and labs showed glucose of 377 CO2 of 17 urinalysis showed down large amount of ketones and sugar that confirms the diagnosis of ketoacidosis as she be admitted to the ICU under Dr. Hamilton service ketoacidosis protocol be activated with insulin infusion she has already been liter of fluids she began another liter and then will follow up the ketoacidosis protocol. Chest x-ray ruled out any infiltrate. Abdominal x- ray ruled out any bowel obstruction or any ileus C-reactive protein is 5 she was quite stressed out with the pain and tachycardia Disposition Clinical Impression: Ketoacidosis, Tachycardia, Abdominal pain Disposition: ADMITTED IP TO THIS HOSP Referrals: Jairo Conroy MD [Primary Care Provider] - 1-2 days
[2017-10-17 21:16] LABS: ALT 23 U/L (9-52); AST 11 U/L (14-36); Albumin 4.6 g/dL (3.5-5.0); Alkaline Phosphatase 98 U/L (38-126); Amylase 32 U/L (30-110); Anion Gap 22 mmol/L; Blood Urea Nitrogen 16 mg/dL (7-17); C Reactive Protein <5.0 mg/L (<10.0); Calcium 9.4 mg/dL (8.4-10.2); Carbon Dioxide 17 mmol/L (22-30); Chloride 100 mmol/L (98-107); Glucose 377 mg/dL (74-99); Lipase 95 U/L (23-300); Potassium 4.4 mmol/L (3.5-5.1); Sodium 139 mmol/L (137-145); Total Bilirubin 1.8 mg/dL (0.2-1.3); Total Protein 7.6 g/dL (6.3-8.2)
--- NOTE | 2017-10-17 21:27 | XR ---
EXAMINATION TYPE: XR abdomen acute w cxr DATE OF EXAM: 10/17/2017 COMPARISON: NONE HISTORY: Chest and abdominal pain TECHNIQUE: Single view chest radiograph and 2 view abdominal radiographs were obtained. FINDINGS: Chest: No focal consolidation, pleural effusion or pneumothorax. Cardiomediastinal silhouet te is within normal limits. Osseous structures are intact. ABDOMEN: There is a moderate to large amount retained colonic debris extending into the sigmoid colon and rectum with no evidence of proximal large or small bowel dilatation. No differential air-fluid l evels. No pneumoperitoneum. No abnormal calcifications within the abdomen or pelvis. Osseous structur es are intact.. IMPRESSION: 1. No acute cardiopulmonary process. 2. Moderate to large amount of retained colonic stool in an overall nonobstructive bowel gas pattern.
[2017-10-17] MEDS ORDERED: SODIUM CHLORIDE 0.9% 2,000 ML IV ONE (21:32)
[2017-10-17] MEDS ORDERED: SODIUM CHLORIDE 0.9% 1,000 ML IV SCH (21:45)
[2017-10-17] MEDS ORDERED: INSULIN REGULAR 100 UNIT in SODIUM CHLORIDE 0.9% 100 ML IV SCH (21:45)
[2017-10-17] MEDS ORDERED: ESCITALOPRAM 5 MG TAB PO PRN (21:47)
[2017-10-17] MEDS ORDERED: ALBUTEROL NEBULIZED 2.5 MG/3 ML INHALATION PRN (21:47)
[2017-10-17] MEDS ORDERED: ALPRAZolam 0.25 MG TAB PO PRN (21:47)
[2017-10-17] MEDS ORDERED: NON-FORMULARY DRUG (Promethazine/Dextromethorphan [Phenergan Dm Syrup] 5 ML) PO SCH (22:00)
[2017-10-17] MEDS ORDERED: methylPREDNISolone 4 MG TAB TAPER PO SCH ×2 (22:00)
[2017-10-17] MEDS ORDERED: cefTRIAXone IN SWFI 1,000 MG/10 ML SYRINGE IVP STA (22:20)
[2017-10-17 23:00] LABS: Glucose,Whole Blood 226 mg/dL (75-99)
[2017-10-17] MEDS ORDERED: MORPHINE SULFATE 2 MG/ML SYRINGE IVP PRN (23:47)
[2017-10-18 00:04] LABS: Glucose,Whole Blood 133 mg/dL (75-99)
[2017-10-18 00:25] LABS: Anion Gap 13 mmol/L; Blood Urea Nitrogen 15 mg/dL (7-17); Carbon Dioxide 24 mmol/L (22-30); Chloride 107 mmol/L (98-107); Glucose 145 mg/dL (74-99); Phosphorus 2.7 mg/dL (2.5-4.5); Potassium 4.2 mmol/L (3.5-5.1); Sodium 144 mmol/L (137-145)
[2017-10-18] MEDS ORDERED: D5-0.45% NACL WITH KCL 20MEQ/L 1,000 ML IV SCH (00:30)
[2017-10-18 01:05] LABS: Glucose,Whole Blood 138 mg/dL (75-99)
[2017-10-18 02:22] LABS: Glucose,Whole Blood 146 mg/dL (75-99)
[2017-10-18 03:31] LABS: Glucose,Whole Blood 173 mg/dL (75-99)
[2017-10-18 04:08] LABS: Anion Gap 8 mmol/L; Blood Urea Nitrogen 14 mg/dL (7-17); Carbon Dioxide 23 mmol/L (22-30); Chloride 107 mmol/L (98-107); Glucose 168 mg/dL (74-99); Phosphorus 3.6 mg/dL (2.5-4.5); Potassium 4.4 mmol/L (3.5-5.1); Sodium 138 mmol/L (137-145)
[2017-10-18 05:01] LABS: Glucose,Whole Blood 253 mg/dL (75-99)
[2017-10-18] MEDS ORDERED: INSULIN NPH 300 UNIT/3 ML VIAL SQ ONE (06:00)
[2017-10-18 06:10] LABS: Glucose,Whole Blood 294 mg/dL (75-99)
[2017-10-18] MEDS: INSULIN ASPART 100 UNIT/ML 1 ML 10 ML VIAL SQ SCH ×7 (06:34→21:07)
[2017-10-18] MEDS: ACETAMINOPHEN TAB 500 MG TAB PO PRN ×2 (06:40→13:32)
[2017-10-18 10:02] VITALS: BMI 23.3
[2017-10-18 11:33] LABS: Glucose,Whole Blood 191 mg/dL (75-99)
[2017-10-18 14:11] LABS: Hemoglobin A1C 11.8 % (4.0-6.0)
[2017-10-18] MEDS ORDERED: BISACODYL 10 MG SUPP RECTAL STA (14:51)
[2017-10-18] MEDS ORDERED: MORPHINE SULFATE 2 MG/ML SYRINGE IVP PRN (14:57)
[2017-10-18 16:31] LABS: Glucose,Whole Blood 302 mg/dL (75-99)
[2017-10-18] MEDS: POLYETHYLENE GLYCOL 3350 17 GM POWD.PACK PO SCH (16:42)
--- NOTE | 2017-10-18 17:05 | P.HPIM ---
History of Present Illness H&P Date: 10/18/17 Chief Complaint: Abdominal pain Ms. Cutler is a 32-year-old female with a past medical history of type 1 diabetes mellitus poorly controlled with an A1c of 11.8, chronic low back pain coming to the hospital with a chief complaint of abdominal pain. Patient states that her abdominal pain is in the lower part of the bili started 2 days back diffuse in nature not associated with any nausea vomiting diarrhea or constipation. Patient states that she threw up only once at home. Patient denies having any fevers chills or rigors. Patient denies having any chest pain or difficulty in breathing or cough. No dysuria or hematuria. Patient has history of chronic low back pain. Patient was recently started on steroids for sciatic pain and since then her sugars have been high. At the time of admission in the ED patient was found to be in DKA started on insulin drip and admitted to the hospital for further care and management. Patient has been off of insulin drip since this morning. Tolerating by mouth. But she still complains of lower abdominal pain. And on reviewing her vitals patient is found to have sinus tachycardia. Her white count is within normal limits. Review of Systems REVIEW OF SYSTEMS: PSYCH: No anxiety or depression NEURO:No c/o weakness of the extremties, No facial droop, No speech abnormalities. VASCULAR: no edema HEMATOLOGIC: No history of easy bleeding and bruising . No recent infections . RESPIRATORY: No cough, No SOB, No chest discomfort. IMMUNE: No infections INTEGUMENT: no rashes OPHTHALMOLOGIC: No blurry vision and no eye discharge : No dysuria or hematuria STATE ATTORNEY: No bleeding PV CARDIAC: No chest pain , shortness of breath , paroxysmal nocturnal dyspnea MUSCULOSKELETAL : No Aches or pains in the joints or muscles. GI: As per HPI Past Medical History Past Medical History: Diabetes Mellitus Additional Past Medical History / Comment(s): HX ENDOMETRIOSIS; GESTATIONAL DIABETES; Migraine headaches History of Any Multi-Drug Resistant Organisms: None Reported Past Surgical History: Tubal Ligation Additional Past Surgical History / Comment(s): LAPAROSCOPIC REMOVAL TUBE AND OVARY-right Past Anesthesia/Blood Transfusion Reactions: No Reported Reaction Additional Past Anesthesia/Blood Transfusion Reaction / Comment(s): HAD MULT INJ FOR DENTAL WORK, INEFFECTIVE. Past Psychological History: Anxiety, Depression Smoking Status: Never smoker Past Alcohol Use History: None Reported Past Drug Use History: None Reported - Past Family History Mother Family Medical History: Rheumatoid Arthritis (RA) Father Family Medical History: Cancer, Diabetes Mellitus, Deep Vein Thrombosis (DVT), Hypertension Medications and Allergies Home Medications Medication Instructions Recorded Confirmed Type Insulin Aspart [NovoLOG Flexpen] 8 units SQ AC-TID 10/18/17 10/18/17 History Insulin Aspart [NovoLOG Flexpen] See Protocol SQ AC-TID 10/18/17 10/18/17 History Insulin Glargine,Hum.rec.anlog 22 units SQ HS 10/18/17 10/18/17 History [Toujeo Solostar] Allergies Allergy/AdvReac Type Severity Reaction Status Date / Time No Known Allergies Allergy Verified 10/18/17 09:22 Physical Exam Vitals: Vital Signs Temp Pulse Pulse Resp BP BP Pulse Ox 10/18/17 14:53 97.8 F 122 H 16 121/78 98 10/18/17 11:33 98.1 F 111 H 20 120/81 98 10/18/17 08:00 16 10/18/17 07:58 98.7 F 119 H 16 120/72 100 10/18/17 04:00 101 H 17 128/81 99 10/18/17 00:00 97.5 F L 121 H 16 129/78 98 10/17/17 20:08 98.4 F 136 H 18 141/97 97 Intake and Output 10/18/17 10/18/17 10/18/17 06:59 14:59 22:59 Intake Total 667.052 300 Output Total 500 Balance 167.052 300 Intake: IV 650 D5-0.45% NaCl with KCl 450 20Meq/l 1,000 ml @ 150 mls/hr IV .[id number] [facility] Rx# :[id number] Sodium Chloride 0.9% 1, 200 000 ml @ 200 mls/hr IV . Q5H SILVER Rx#:[id number] Intake, IV Titration 17.052 Amount Insulin Regular 100 unit 17.052 In Sodium Chloride 0.9% 100 ml @ 0.1 UNITS/KG/HR 5.81 mls/hr IV .[id number] SILVER Rx#:[id number] Oral 300 Output: Urine 500 Other: Voiding Method Toilet Toilet # Voids 1 Weight 56 kg 56 kg GENERAL EXAM GEN. APPEARANCE: alert, in no apparent distress HEAD EXAM: atraumatic, normocephalic, normal inspection EYE EXAM: normal appearance, PERRL, EOMI. Absent: scleral icterus, conjunctival injection, periorbital swelling ENT EXAM: normal exam, mucous membranes moist NECK EXAM: normal inspection. Absent: tenderness, meningismus, full ROM, lymphadenopathy RESPIRATORY EXAM: normal lung sounds bilaterally. Absent: respiratory distress , wheezes, rales, rhonchi, stridor CARDIOVASCULAR EXAM: Tachycardia. no additional sounds appreciated GI/ABDOMINAL EXAM: soft, normal bowel sounds. Positive for diffuse tenderness in the lower abdomen EXTREMITIES EXAM: normal inspection, full ROM, normal capillary refill. Absent : tenderness, pedal edema, joint swelling, calf tenderness BACK EXAM: normal inspection NEUROLOGICAL EXAM: alert, oriented X3, CN II-XII intact, motor sensory deficit PSYCHIATRIC EXAM: normal affect, normal mood SKIN EXAM: warm, dry, intact, normal color. Absent: rash Results CBC & Chem 7: 10/17/17 20:41 10/18/17 03:35 Labs: Abnormal Lab Results - Last 24 Hours (Table) 10/17/17 10/17/17 10/17/17 Range/Units 20:41 20:41 20:41 Carbon Dioxide 17 L (22-30) mmol/L Creatinine 0.40 L (0.52-1.04) mg/dL Glucose 377 H (74-99) mg/dL POC Glucose (mg/dL) (75-99) mg/dL Hemoglobin A1c 11.8 H (4.0-6.0) % Total Bilirubin 1.8 H (0.2-1.3) mg/dL AST 11 L (14-36) U/L Urine Glucose (UA) 4+ H (Negative) Urine Ketones 4+ H (Negative) Ur Leukocyte Esterase Small H (Negative) Urine WBC 10 H (0-5) /hpf Ur Squamous Epith Cells 5 H (0-4) /hpf Urine Bacteria Rare H (None) /hpf Urine Mucus Rare H (None) /hpf 10/17/17 10/18/17 10/18/17 Range/Units 22:58 00:01 00:02 Carbon Dioxide (22-30) mmol/L Creatinine 0.30 L (0.52-1.04) mg/dL Glucose 145 H (74-99) mg/dL POC Glucose (mg/dL) 226 H 133 H (75-99) mg/dL Hemoglobin A1c (4.0-6.0) % Total Bilirubin (0.2-1.3) mg/dL AST (14-36) U/L Urine Glucose (UA) (Negative) Urine Ketones (Negative) Ur Leukocyte Esterase (Negative) Urine WBC (0-5) /hpf Ur Squamous Epith Cells (0-4) /hpf Urine Bacteria (None) /hpf Urine Mucus (None) /hpf 10/18/17 10/18/17 10/18/17 Range/Units 01:03 02:21 03:30 Carbon Dioxide (22-30) mmol/L Creatinine (0.52-1.04) mg/dL Glucose (74-99) mg/dL POC Glucose (mg/dL) 138 H 146 H 173 H (75-99) mg/dL Hemoglobin A1c (4.0-6.0) % Total Bilirubin (0.2-1.3) mg/dL AST (14-36) U/L Urine Glucose (UA) (Negative) Urine Ketones (Negative) Ur Leukocyte Esterase (Negative) Urine WBC (0-5) /hpf Ur Squamous Epith Cells (0-4) /hpf Urine Bacteria (None) /hpf Urine Mucus (None) /hpf 10/18/17 10/18/17 10/18/17 Range/Units 03:35 04:59 06:09 Carbon Dioxide (22-30) mmol/L Creatinine 0.38 L (0.52-1.04) mg/dL Glucose 168 H (74-99) mg/dL POC Glucose (mg/dL) 253 H 294 H (75-99) mg/dL Hemoglobin A1c (4.0-6.0) % Total Bilirubin (0.2-1.3) mg/dL AST (14-36) U/L Urine Glucose (UA) (Negative) Urine Ketones (Negative) Ur Leukocyte Esterase (Negative) Urine WBC (0-5) /hpf Ur Squamous Epith Cells (0-4) /hpf Urine Bacteria (None) /hpf Urine Mucus (None) /hpf 10/18/17 Range/Units 11:14 Carbon Dioxide (22-30) mmol/L Creatinine (0.52-1.04) mg/dL Glucose (74-99) mg/dL POC Glucose (mg/dL) 191 H (75-99) mg/dL Hemoglobin A1c (4.0-6.0) % Total Bilirubin (0.2-1.3) mg/dL AST (14-36) U/L Urine Glucose (UA) (Negative) Urine Ketones (Negative) Ur Leukocyte Esterase (Negative) Urine WBC (0-5) /hpf Ur Squamous Epith Cells (0-4) /hpf Urine Bacteria (None) /hpf Urine Mucus (None) /hpf Microbiology - Last 24 Hours (Table) 10/18/17 03:55 Urine Culture - Preliminary Urine,Voided Thrombosis Risk Factor Assmnt - Choose All That Apply Any of the Below Risk Factors Present?: No Other Risk Factors: Yes Each Risk Factor Represents 3 Points: Family history of DVT/PE Other congenital or acquired thrombophilia - If yes, enter type in comment: No Thrombosis Risk Factor Assessment Total Risk Factor Score: 3 Thrombosis Risk Factor Assessment Level: Moderate Risk Assessment and Plan Assessment: Assessment DKA - secondary to recent steroid use Type 1 diabetes mellitus poorly controlled A1c of 11.8 Acute lower abdominal pain Sinus tachycardia Chronic low back pain Plan: Patient has been off of insulin drip and currently try titrating her insulin requirement depending upon her blood sugars. Will get a CAT scan of the abdomen and pelvis due to her lower abdominal pain and sinus tachycardia. No fever or white count. We'll also check a TSH and free T4 levels. Further recommendations to follow depending on the progress of the patient.
[2017-10-18] MEDS: IOPAMIDOL-300 CONTRAST 30 ML VIAL (ORAL USE) PO PRN ×2 (17:29→18:31)
[2017-10-18 18:05] LABS: T4, Free (Free Thyroxine) 1.48 ng/dL (0.78-2.19)
--- NOTE | 2017-10-18 19:23 | CT ---
EXAMINATION TYPE: CT abdomen pelvis w con DATE OF EXAM: 10/18/2017 COMPARISON: 04/02/2010 HISTORY: ABDOMINAL PAIN WITH VOMITING CT DLP: 398.5 mGycm Automated exposure control for dose reduction was used. TECHNIQUE: Helical acquisition of images was performed from the lung bases through the pelvis. CONTRAST: Performed with Oral Contrast and with IV Contrast, patient injected with 100 mL of Isovue 300. FINDINGS: The lung bases are clear. There is no pleural effusion. Liver spleen pancreas gallbladder appear norm al. Bile ducts are not dilated. There is no adrenal mass. Kidneys show satisfactory contrast opacific ation. There is no hydronephrosis. Ureters are not dilated. There is no retroperitoneal adenopathy. T here is no ascites. Bladder distends smoothly. There is no evidence of pelvic mass. Uterus is retrove rted. I see no bony destructive process. There is no intestinal wall thickening. There are no dilated loops. Appendix appears normal. There is no ascites. There is no sign of free air. IMPRESSION: NEGATIVE CT SCAN OF THE ABDOMEN AND PELVIS No adverse change compared to old exam.
[2017-10-18] MEDS ORDERED: INSULIN DETEMIR 100 UNIT/ML 10 ML VIAL SQ SCH (21:00)
[2017-10-18 21:04] LABS: Glucose,Whole Blood 326 mg/dL (75-99)
[2017-10-18] MEDS ORDERED: MORPHINE SULFATE 2 MG/ML SYRINGE IVP ONE (21:24)
[2017-10-19 05:56] VITALS: RESP 17
[2017-10-19 06:03] LABS: Glucose,Whole Blood 193 mg/dL (75-99)
[2017-10-19 06:39] LABS: Basophils % (A) 0 %; Eosinophils # (A) 0.1 k/uL (0-0.7); Eosinophils % (A) 1 %; HCT 40.1 % (34.0-46.0); Lymphocytes # (A) 2.4 k/uL (1.0-4.8); Lymphocytes % (A) 35 %; MCH 30.7 pg (25.0-35.0); MCHC 34.8 g/dL (31.0-37.0); MCV 88.2 fL (80.0-100.0); Mean Platelet Volume 7.5; Monocytes # (A) 0.3 k/uL (0-1.0); Monocytes % (A) 5 %; Neutrophils # (A) 3.8 k/uL (1.3-7.7); Neutrophils % (A) 57 %; Platelet Count 287 k/uL (150-450); RBC 4.55 m/uL (3.80-5.40); RDW 13.3 % (11.5-15.5); WBC 6.7 k/uL (3.8-10.6)
[2017-10-19 06:49] LABS: Anion Gap 14 mmol/L; Blood Urea Nitrogen 12 mg/dL (7-17); Calcium 9.1 mg/dL (8.4-10.2); Carbon Dioxide 27 mmol/L (22-30); Chloride 100 mmol/L (98-107); Glucose 200 mg/dL (74-99); Potassium 4.2 mmol/L (3.5-5.1); Sodium 141 mmol/L (137-145)
[2017-10-19] MEDS: INSULIN ASPART 100 UNIT/ML 1 ML 10 ML VIAL SQ SCH ×4 (07:06→12:01)
[2017-10-19] MEDS ORDERED: BISACODYL 10 MG SUPP RECTAL STA (09:17)
[2017-10-19] MEDS ORDERED: MORPHINE SULFATE 2 MG/ML SYRINGE IVP PRN (09:18)
[2017-10-19] MEDS: POLYETHYLENE GLYCOL 3350 17 GM POWD.PACK PO SCH (09:45)
[2017-10-19 10:58] VITALS: BP 135/82; PULSE 109; TEMP 96.8
[2017-10-19 11:54] LABS: Glucose,Whole Blood 245 mg/dL (75-99)
--- NOTE | 2017-10-19 17:36 | P.DS ---
Providers Date of admission: 10/17/17 21:47 Attending physician: Peter Hamilton Primary care physician: Rafiq Da Silva [facility] Course: Patient is admitted for the diabetic ketoacidosis secondary to recent steroid use for her low back pain. Patient steroids at this can you patient the was started on nonsteroidal anti-inflammatory is. Patient blood sugars are well controlled now DKA resolved and patient will be discharged today. PHYSICAL EXAMINATION: GENERAL: The patient is alert and oriented x3, not in any acute distress. Well developed, well nourished. HEENT: Pupils are round and equally reacting to light. EOMI. No scleral icterus. No conjunctival pallor. Normocephalic, atraumatic. No pharyngeal erythema. No thyromegaly. CARDIOVASCULAR: S1 and S2 present. No murmurs, rubs, or gallops. PULMONARY: Chest is clear to auscultation, no wheezing or crackles. ABDOMEN: Soft, nontender, nondistended, normoactive bowel sounds. No palpable organomegaly. MUSCULOSKELETAL: No joint swelling or deformity. EXTREMITIES: No cyanosis, clubbing, or pedal edema. NEUROLOGICAL: Gross neurological examination did not reveal any focal deficits. SKIN: No rashes. DKA - secondary to recent steroid use Type 1 diabetes mellitus poorly controlled A1c of 11.8 Acute lower abdominal pain Sinus tachycardia secondary to intravascular depletion from possible diabetic ketoacidosis Chronic low back pain Patient Condition at Discharge: Stable Plan - Discharge Summary New Discharge Prescriptions: New Docusate [Colace] 100 mg PO BID PRN #60 capsule PRN Reason: Constipation Polyethylene Glycol 3350 [Miralax] 17 gm PO DAILY PRN #15 packet PRN Reason: Constipation No Action Insulin Glargine,Hum.rec.anlog [Toujeo Solostar] 22 units SQ HS Insulin Aspart [NovoLOG Flexpen] 8 units SQ AC-TID Insulin Aspart [NovoLOG Flexpen] See Protocol SQ AC-TID Discharge Medication List Insulin Aspart [NovoLOG Flexpen] 8 units SQ AC-TID 10/18/17 [History] Insulin Aspart [NovoLOG Flexpen] See Protocol SQ AC-TID 10/18/17 [History] Insulin Glargine,Hum.rec.anlog [Toujeo Solostar] 22 units SQ HS 10/18/17 [ History] Docusate [Colace] 100 mg PO BID PRN #60 capsule 10/19/17 [Rx] Polyethylene Glycol 3350 [Miralax] 17 gm PO DAILY PRN #15 packet 10/19/17 [Rx] Follow up Appointment(s)/Referral(s): Jairo Conroy MD [Primary Care Provider] - 10/25/17 2:40 pm (Wednesday) Patient Instructions/Handouts: Constipation (DC), Diabetic Ketoacidosis (DC) Discharge Disposition: HOME SELF-CARE
== END 2017-10-19 12:15 | disposition home or self-care (01) ==
LOC: EC 19:59 → 6SEL 21:47 → INTOOBSV 21:47 → UNDODISIN 10-19 12:15
PROVIDERS: ADMIT Hospitalist; ATTEND Hospitalist
DX: E10.10 Type 1 diabetes mellitus with ketoacidosis without coma (principal); M54.40 Lumbago with sciatica, unspecified side; G89.29 Other chronic pain; T38.0X5A Adverse effect of glucocorticoids and synthetic analogues, initial encounter; F32.9 Major depressive disorder, single episode, unspecified; F41.9 Anxiety disorder, unspecified; G43.909 Migraine, unspecified, not intractable, without status migrainosus; N80.9 Endometriosis, unspecified; R10.30 Lower abdominal pain, unspecified; R10.33 Periumbilical pain; R00.0 Tachycardia, unspecified; Z79.899 Other long term (current) drug therapy; Z79.4 Long term (current) use of insulin; Z86.32 Personal history of gestational diabetes; Z82.49 Family history of ischemic heart disease and other diseases of the circulatory system; Z83.3 Family history of diabetes mellitus; Z83.2 Family history of diseases of the blood and blood-forming organs and certain disorders involving the immune mechanism; Z82.61 Family history of arthritis; Z90.721 Acquired absence of ovaries, unilateral; Z90.79 Acquired absence of other genital organ(s); Z98.51 Tubal ligation status
CPT/HCPCS: 96376 ×2; 96361 ×3; 96375 ×2; 96374; 99285; 36415; 84439; 80051; 80053; 80048; 84443; 82150; 82565; 83690; 84100; 82947; 84520; 85025 ×2; 86140; 81001; 87086; 83036; 74022; 74177; G0378 ×3; J2405; J0696; J2270 ×3; Q9967

== ENCOUNTER 2017-10-21 20:38 | Emergency (ER) | payer OTHER ==
[2017-10-21 20:43] VITALS: TEMP 98.5
[2017-10-21 21:31] LABS: Glucose,Whole Blood 269 mg/dL (75-99)
[2017-10-21] MEDS ORDERED: DICYCLOMINE 20 MG TAB PO STA (21:51)
[2017-10-21] MEDS ORDERED: SODIUM CHLORIDE 0.9% 1,000 ML IV ONE (21:51)
--- NOTE | 2017-10-21 21:53 | ED ---
Abdominal Pain HPI - General Chief Complaint: Abdominal Pain Stated Complaint: abdominal pain/bowel problems-revisit Time Seen by Provider: 10/21/17 21:10 Source: patient Mode of arrival: ambulatory Limitations: no limitations - History of Present Illness Initial Comments: This patient is a 32-year-old woman who presents to be evaluated for suspected constipation. The patient states that she is having cramping and bloating type abdominal pain that is all across her abdomen and seems to move around a bit. It seems to come in waves. She states that her last bowel movement was on Wednesday and she describes as being less than usual. She denies any change in urination. Patient is not having nausea or vomiting. No fevers or chills. MD Complaint: abdominal pain Onset/Timin -: days(s) Location: periumbilical Radiation: none Migration to: periumbilical Severity: moderate Quality: cramping, fullness Consistency: colicky Improves With: nothing Worsens With: nothing Associated Symptoms: constipation - Related Data Home Medications Medication Instructions Recorded Confirmed Insulin Glargine,Hum.rec.anlog 22 units SQ HS 10/18/17 10/21/17 [Touaaron Solostbrigida] ALPRAZolam [Xanax] 0.25 mg PO DAILY PRN 10/21/17 10/21/17 Escitalopram [Lexapro] 10 mg PO DAILY PRN 10/21/17 10/21/17 INSULIN LISPRO (HumaLOG) [HumaLOG] See Protocol SQ AC-TID PRN 10/21/17 10/21/17 INSULIN LISPRO (humaLOG) [humaLOG] 8 units SQ AC-TID 10/21/17 10/21/17 Allergies Allergy/AdvReac Type Severity Reaction Status Date / Time No Known Allergies Allergy Verified 10/21/17 21:15 Review of Systems ROS Statement: Those systems with pertinent positive or pertinent negative responses have been documented in the HPI. ROS Other: All systems not noted in ROS Statement are negative. Constitutional: Denies: fever, chills Respiratory: Denies: cough, dyspnea Cardiovascular: Denies: chest pain, palpitations, edema Gastrointestinal: Reports: abdominal pain, constipation. Denies: nausea, vomiting, diarrhea, melena, hematochezia Genitourinary: Denies: dysuria, hematuria, discharge, abnormal menses Musculoskeletal: Denies: back pain Skin: Denies: rash Neurological: Denies: headache, weakness, numbness Past Medical History Past Medical History: Diabetes Mellitus Additional Past Medical History / Comment(s): HX ENDOMETRIOSIS; GESTATIONAL DIABETES; Migraine headaches History of Any Multi-Drug Resistant Organisms: None Reported Past Surgical History: Tubal Ligation Additional Past Surgical History / Comment(s): LAPAROSCOPIC REMOVAL TUBE AND OVARY-right Past Anesthesia/Blood Transfusion Reactions: No Reported Reaction Additional Past Anesthesia/Blood Transfusion Reaction / Comment(s): HAD MULT INJ FOR DENTAL WORK, INEFFECTIVE. Past Psychological History: Anxiety, Depression Smoking Status: Never smoker Past Alcohol Use History: None Reported Past Drug Use History: None Reported - Past Family History Mother Family Medical History: Rheumatoid Arthritis (RA) Father Family Medical History: Cancer, Diabetes Mellitus, Deep Vein Thrombosis (DVT), Hypertension General Exam Limitations: no limitations General appearance: alert, in no apparent distress Head exam: Present: atraumatic, normocephalic Eye exam: Present: normal appearance. Absent: scleral icterus, conjunctival injection Neck exam: Present: normal inspection, full ROM Respiratory exam: Present: normal lung sounds bilaterally. Absent: respiratory distress, wheezes, rales, rhonchi, stridor Cardiovascular Exam: Present: regular rate, normal rhythm, normal heart sounds. Absent: systolic murmur, diastolic murmur, rubs, gallop GI/Abdominal exam: Present: soft, normal bowel sounds. Absent: distended, tenderness, guarding, rebound, rigid, mass, pulsatile mass, hernia Extremities exam: Present: normal inspection, normal capillary refill. Absent: pedal edema, calf tenderness Back exam: Present: normal inspection. Absent: CVA tenderness (R), CVA tenderness (L) Neurological exam: Present: alert Skin exam: Present: warm, dry, intact, normal color. Absent: rash Course Vital Signs 10/21/17 10/21/17 10/21/17 20:40 22:18 23:22 Temperature 98.5 F Pulse Rate 122 H 101 H 105 H Respiratory 20 19 19 Rate Blood Pressure 148/95 138/81 133/81 O2 Sat by Pulse 99 100 100 Oximetry Medical Decision Making - Lab Data Result diagrams: 10/21/17 21:24 10/21/17 21:24 Lab Results 10/21/17 10/21/17 10/21/17 Range/Units 21:24 21:24 21:29 WBC 8.1 (3.8-10.6) k/uL RBC 4.40 (3.80-5.40) m/uL Hgb 13.1 (11.4-16.0) gm/dL Hct 38.6 (34.0-46.0) % MCV 87.7 (80.0-100.0) fL MCH 29.7 (25.0-35.0) pg MCHC 33.8 (31.0-37.0) g/dL RDW 12.1 (11.5-15.5) % Plt Count 317 (150-450) k/uL Neutrophils % 61 % Lymphocytes % 31 % Monocytes % 5 % Eosinophils % 1 % Basophils % 0 % Neutrophils # 5.0 (1.3-7.7) k/uL Lymphocytes # 2.5 (1.0-4.8) k/uL Monocytes # 0.4 (0-1.0) k/uL Eosinophils # 0.1 (0-0.7) k/uL Basophils # 0.0 (0-0.2) k/uL Sodium 139 (137-145) mmol/L Potassium 4.5 (3.5-5.1) mmol/L Chloride 100 (98-107) mmol/L Carbon Dioxide 26 (22-30) mmol/L Anion Gap 13 mmol/L BUN 12 (7-17) mg/dL Creatinine 0.40 L (0.52-1.04) mg/dL Est GFR (CKD-EPI)AfAm >90 (>60 ml/min/1.73 sqM) Est GFR (CKD-EPI)NonAf >90 (>60 ml/min/1.73 sqM) Glucose 284 H (74-99) mg/dL POC Glucose (mg/dL) 269 H (75-99) mg/dL POC Glu Slots Manager ID Betsy Eddy Calcium 9.3 (8.4-10.2) mg/dL Total Bilirubin 1.3 (0.2-1.3) mg/dL AST 15 (14-36) U/L ALT 24 (9-52) U/L Alkaline Phosphatase 76 (38-126) U/L C-Reactive Protein <5.0 (<10.0) mg/L Total Protein 7.2 (6.3-8.2) g/dL Albumin 4.3 (3.5-5.0) g/dL Amylase 32 (30-110) U/L Lipase 104 (23-300) U/L Urine Color Urine Appearance (Clear) Urine pH (5.0-8.0) Ur Specific [place] (1.001-1.035) Urine Protein (Negative) Urine Glucose (UA) (Negative) Urine Ketones (Negative) Urine Blood (Negative) Urine Nitrite (Negative) Urine Bilirubin (Negative) Urine Urobilinogen (<2.0) mg/dL Ur Leukocyte Esterase (Negative) Urine HCG, Qual (Not Detectd) 10/21/17 10/21/17 10/21/17 Range/Units 21:50 21:50 23:22 WBC (3.8-10.6) k/uL RBC (3.80-5.40) m/uL Hgb (11.4-16.0) gm/dL Hct (34.0-46.0) % MCV (80.0-100.0) fL MCH (25.0-35.0) pg MCHC (31.0-37.0) g/dL RDW (11.5-15.5) % Plt Count (150-450) k/uL Neutrophils % % Lymphocytes % % Monocytes % % Eosinophils % % Basophils % % Neutrophils # (1.3-7.7) k/uL Lymphocytes # (1.0-4.8) k/uL Monocytes # (0-1.0) k/uL Eosinophils # (0-0.7) k/uL Basophils # (0-0.2) k/uL Sodium (137-145) mmol/L Potassium (3.5-5.1) mmol/L Chloride (98-107) mmol/L Carbon Dioxide (22-30) mmol/L Anion Gap mmol/L BUN (7-17) mg/dL Creatinine (0.52-1.04) mg/dL Est GFR (CKD-EPI)AfAm (>60 ml/min/1.73 sqM) Est GFR (CKD-EPI)NonAf (>60 ml/min/1.73 sqM) Glucose (74-99) mg/dL POC Glucose (mg/dL) 247 H (75-99) mg/dL POC Glu Slots Manager ID Camille Marinelli Calcium (8.4-10.2) mg/dL Total Bilirubin (0.2-1.3) mg/dL AST (14-36) U/L ALT (9-52) U/L Alkaline Phosphatase (38-126) U/L C-Reactive Protein (<10.0) mg/L Total Protein (6.3-8.2) g/dL Albumin (3.5-5.0) g/dL Amylase (30-110) U/L Lipase (23-300) U/L Urine Color Yellow Urine Appearance Clear (Clear) Urine pH 6.0 (5.0-8.0) Ur Specific [place] 1.038 H (1.001-1.035) Urine Protein Negative (Negative) Urine Glucose (UA) 4+ H (Negative) Urine Ketones 1+ H (Negative) Urine Blood Negative (Negative) Urine Nitrite Negative (Negative) Urine Bilirubin Negative (Negative) Urine Urobilinogen 2.0 (<2.0) mg/dL Ur Leukocyte Esterase Negative (Negative) Urine HCG, Qual Not Detected (Not Detectd) Disposition Clinical Impression: Constipation, Hyperglycemia Disposition: HOME SELF-CARE Condition: Fair Instructions: Diabetic Hyperglycemia (ED), Constipation (ED) Is patient prescribed a controlled substance at d/c from ED?: No Referrals: Jairo Conroy MD [Primary Care Provider] - 1-2 days
[2017-10-21 21:56] LABS: Basophils % (A) 0 %; Eosinophils # (A) 0.1 k/uL (0-0.7); Eosinophils % (A) 1 %; HCT 38.6 % (34.0-46.0); HGB 13.1 gm/dL (11.4-16.0); Lymphocytes # (A) 2.5 k/uL (1.0-4.8); Lymphocytes % (A) 31 %; MCH 29.7 pg (25.0-35.0); MCHC 33.8 g/dL (31.0-37.0); MCV 87.7 fL (80.0-100.0); Mean Platelet Volume 8.1; Monocytes # (A) 0.4 k/uL (0-1.0); Monocytes % (A) 5 %; Neutrophils % (A) 61 %; Platelet Count 317 k/uL (150-450); RDW 12.1 % (11.5-15.5); WBC 8.1 k/uL (3.8-10.6)
--- NOTE | 2017-10-21 22:00 | XR ---
EXAMINATION TYPE: XR KUB DATE OF EXAM: 10/21/2017 COMPARISON: 10/17/2017 HISTORY: Abdominal pain TECHNIQUE: 2 views FINDINGS: 2 upright views were obtained and show no sign of intestinal obstruction or pneumoperitoneu m. Fecal pattern is normal. There is no sign of a mass. There are no pathologic calcifications. IMPRESSION: Nonacute abdomen.
[2017-10-21 22:04] LABS: Appearance,Urine Clear (Clear); Bilirubin,Urine Negative (Negative); Blood,Urine Negative (Negative); Color,Urine Yellow; Glucose,Urine (UA) 4+ (Negative); Ketones,Urine 1+ (Negative); Leukocyte Esterase,Urine Negative (Negative); Nitrite,Urine Negative (Negative); Protein,Urine Negative (Negative); Specific Gravity,Urine 1.038 (1.001-1.035)
[2017-10-21 22:06] LABS: ALT 24 U/L (9-52); AST 15 U/L (14-36); Albumin 4.3 g/dL (3.5-5.0); Alkaline Phosphatase 76 U/L (38-126); Amylase 32 U/L (30-110); Anion Gap 13 mmol/L; Blood Urea Nitrogen 12 mg/dL (7-17); Calcium 9.3 mg/dL (8.4-10.2); Carbon Dioxide 26 mmol/L (22-30); Chloride 100 mmol/L (98-107); Glucose 284 mg/dL (74-99); Lipase 104 U/L (23-300); Potassium 4.5 mmol/L (3.5-5.1); Sodium 139 mmol/L (137-145); Total Bilirubin 1.3 mg/dL (0.2-1.3); Total Protein 7.2 g/dL (6.3-8.2)
[2017-10-21 22:18] LABS: C Reactive Protein <5.0 mg/L (<10.0)
[2017-10-21 22:19] VITALS: RESP 19
[2017-10-21] MEDS ORDERED: INSULIN REGULAR 100 UNIT/ML VIAL SQ STA (23:12)
[2017-10-21 23:23] LABS: Glucose,Whole Blood 247 mg/dL (75-99)
[2017-10-21 23:24] VITALS: BP 133/81; PULSE 105
== END 2017-10-22 00:09 | disposition home or self-care (01) ==
LOC: EC 20:38
DX: E11.65 Type 2 diabetes mellitus with hyperglycemia (principal); K59.00 Constipation, unspecified; Z98.51 Tubal ligation status; Z79.4 Long term (current) use of insulin
CPT/HCPCS: 36415; 74018; 80053; 81003; 81025; 82150; 83690; 85025; 86140; 96360; 96361; 99284

== ENCOUNTER 2017-10-24 16:50 | Emergency (ER) | payer OTHER ==
[2017-10-24] MEDS ORDERED: ONDANSETRON 4 MG/2 ML VIAL IVP STA (17:27)
[2017-10-24] MEDS ORDERED: SODIUM CHLORIDE 0.9% 1,000 ML IV STA (17:27)
[2017-10-24] MEDS ORDERED: MAG HYDROX/AL HYDROX/SIMETH 30 ML, HYOSCYAMINE ELIXIR 10 ML, CIMETIDINE HCL 300 MG, LID... PO STA ×4 (17:28)
--- NOTE | 2017-10-24 17:38 | ED ---
Abdominal Pain HPI - General Chief Complaint: Abdominal Pain Stated Complaint: Abd Pain Source: patient Mode of arrival: wheelchair Limitations: no limitations - History of Present Illness Initial Comments: Chief Complaint: 32-year-old female with past medical history of insulin-dependent diabetes mellitus presents with abdominal pain. History of Present Illness: It is a 32-year-old female past medical history of insulin-dependent diabetes mellitus presents with chief complaint of abdominal pain. Patient states she's been having these symptoms for approximately one week. She was seen here twice within the last month where a computed tomography scan was performed showing no acute processes. Patient was also admitted for diabetic ketoacidosis. Patient localizes the pain to her epigastric region. She states it radiates to the back. Patient feels nauseated however no vomiting. No diarrhea. Denies any constitutional symptoms. Patient does not report any changes with eating. Exacerbating or mitigating factors. Past Medical History: Insulin-dependent diabetes mellitus Past Surgical History: Tubal ligation, exploratory laparoscopy Social History: [denies alcohol, tobacco or illicit drug use] Family History: reviewed and noncontributory The ROS documented in this emergency department record has been reviewed and confirmed by me. Those systems with pertinent positive or negative responses have been documented in the HPI. All other systems are other negative and/or noncontributory. - Related Data Home Medications Medication Instructions Recorded Confirmed Insulin Glargine,Hum.rec.anlog 22 units SQ HS 10/18/17 10/21/17 [Toujekrista Solostar] ALPRAZolam [Xanax] 0.25 mg PO DAILY PRN 10/21/17 10/21/17 Escitalopram [Lexapro] 10 mg PO DAILY PRN 10/21/17 10/21/17 INSULIN LISPRO (HumaLOG) [HumaLOG] See Protocol SQ AC-TID PRN 10/21/17 10/21/17 INSULIN LISPRO (humaLOG) [humaLOG] 8 units SQ AC-TID 10/21/17 10/21/17 Previous Rx's Medication Instructions Recorded Sennosides [Senna] 8.6 mg PO BID #4 tablet 10/24/17 Allergies Allergy/AdvReac Type Severity Reaction Status Date / Time No Known Allergies Allergy Verified 10/24/17 17:01 Review of Systems ROS Statement: Those systems with pertinent positive or pertinent negative responses have been documented in the HPI. ROS Other: All systems not noted in ROS Statement are negative. Past Medical History Past Medical History: Diabetes Mellitus Additional Past Medical History / Comment(s): HX ENDOMETRIOSIS; GESTATIONAL DIABETES; Migraine headaches History of Any Multi-Drug Resistant Organisms: None Reported Past Surgical History: Tubal Ligation Additional Past Surgical History / Comment(s): LAPAROSCOPIC REMOVAL TUBE AND OVARY-right Past Anesthesia/Blood Transfusion Reactions: No Reported Reaction Additional Past Anesthesia/Blood Transfusion Reaction / Comment(s): HAD MULT INJ FOR DENTAL WORK, INEFFECTIVE. Past Psychological History: Anxiety, Depression Smoking Status: Never smoker Past Alcohol Use History: None Reported Past Drug Use History: None Reported - Past Family History Mother Family Medical History: Rheumatoid Arthritis (RA) Father Family Medical History: Cancer, Diabetes Mellitus, Deep Vein Thrombosis (DVT), Hypertension General Exam - General Exam Comments Initial Comments: Vitals: Vital signs upon arrival shows heart rate of 130, respiratory rate of 24 vital signs within normal limits PHYSICAL EXAM: General Impression: Alert and oriented x3, acute distress secondary to pain HEENT: Normocephalic atraumatic, extra-ocular movements intact, pupils equal and reactive to light bilaterally, mucous membranes moist. Cardiovascular: Heart regular rate and rhythm, S1&S2 audible, no murmurs, rubs or gallops Chest: Lungs clear to auscultation bilaterally, no rhonchi, no wheeze, no rales Abdomen: Bowel sounds present, abdomen soft, diffuse abdominal tenderness, negative murphys sign, non-distended, no organomegaly Musculoskeletal: Pulses present and equal in all extremities, no peripheral edema Motor: Power 5/5 bilaterally, no focal deficits noted Neurological: CN II-XII grossly intact, no focal motor or sensory deficits noted Skin: Intact with no visualized rashes Psych: Normal affect and mood Limitations: no limitations Course Vital Signs 10/24/17 10/24/17 17:00 19:06 Temperature 98.9 F 98.6 F Pulse Rate 130 H 115 H Respiratory 24 18 Rate Blood Pressure 120/87 138/87 O2 Sat by Pulse 97 99 Oximetry Medical Decision Making - Medical Decision Making ED course: 32-year-old female who presents with chief complaint of abdominal pain 1 week. Chart review shows that patient has history of poorly controlled diabetes. She was admitted 6 days ago for diabetic ketoacidosis. She was discharged the following day. Computed tomography scan of the abdomen and pelvis was performed 6 days ago showing no acute processes.Laboratory evaluation obtained. CBC is unremarkable. Venous blood gas shows no acute findings. Resume, shows glucose of 476. There is no Acidosis. Urinalysis shows 4+ glucose. Ultrasound abdomen was obtained showing no acute processes. Patient given GI cocktail, antiemetics, intravenous fluids. Given degree of hyperglycemia patient given 5 units of IV insulin. Patient reevaluated found to be in improved condition. Discussed with patient that she needs to take better control of her sugars otherwise she may revert back into diabetic ketoacidosis. Patient's abdominal pain is controlled. Belly is soft. Pain is controlled. Patient not nauseated or vomiting. More history obtained from patient reporting that she has been having hard pebble size stools. Patient clinically has constipation. She is given senna and polyethylene glycol patient felt comfortable managing her constipation at home. Plan is for patient to be discharge with instructions to follow up with primary care physician. Patient is understandable and agreeable to plan. Final impression: 1. Constipation, 2. Hyperglycemia - Lab Data Result diagrams: 10/24/17 17:18 10/24/17 17:18 Lab Results 10/24/17 10/24/17 10/24/17 Range/Units 17:18 17:18 17:18 WBC 6.8 (3.8-10.6) k/uL RBC 4.47 (3.80-5.40) m/uL Hgb 13.3 (11.4-16.0) gm/dL Hct 39.4 (34.0-46.0) % MCV 88.3 (80.0-100.0) fL MCH 29.9 (25.0-35.0) pg MCHC 33.8 (31.0-37.0) g/dL RDW 12.4 (11.5-15.5) % Plt Count 344 (150-450) k/uL Neutrophils % 61 % Lymphocytes % 31 % Monocytes % 5 % Eosinophils % 1 % Basophils % 0 % Neutrophils # 4.2 (1.3-7.7) k/uL Lymphocytes # 2.1 (1.0-4.8) k/uL Monocytes # 0.3 (0-1.0) k/uL Eosinophils # 0.0 (0-0.7) k/uL Basophils # 0.0 (0-0.2) k/uL VBG pH (7.31-7.41) VBG pCO2 (37-51) mmHg VBG HCO3 (24-28) mmol/L Sodium 141 (137-145) mmol/L Potassium 4.4 (3.5-5.1) mmol/L Chloride 104 (98-107) mmol/L Carbon Dioxide 22 (22-30) mmol/L Anion Gap 15 mmol/L BUN 8 (7-17) mg/dL Creatinine 0.40 L (0.52-1.04) mg/dL Est GFR (CKD-EPI)AfAm >90 (>60 ml/min/1.73 sqM) Est GFR (CKD-EPI)NonAf >90 (>60 ml/min/1.73 sqM) Glucose 476 H* (74-99) mg/dL Calcium 9.4 (8.4-10.2) mg/dL Total Bilirubin 1.1 (0.2-1.3) mg/dL AST 11 L (14-36) U/L ALT 25 (9-52) U/L Alkaline Phosphatase 74 (38-126) U/L Total Protein 7.2 (6.3-8.2) g/dL Albumin 4.4 (3.5-5.0) g/dL Lipase 164 (23-300) U/L Urine Color Urine Appearance (Clear) Urine pH (5.0-8.0) Ur Specific [place] (1.001-1.035) Urine Protein (Negative) Urine Glucose (UA) (Negative) Urine Ketones (Negative) Urine Blood (Negative) Urine Nitrite (Negative) Urine Bilirubin (Negative) Urine Urobilinogen (<2.0) mg/dL Ur Leukocyte Esterase (Negative) Urine HCG, Qual Not Detected (Not Detectd) 10/24/17 10/24/17 Range/Units 17:18 18:18 WBC (3.8-10.6) k/uL RBC (3.80-5.40) m/uL Hgb (11.4-16.0) gm/dL Hct (34.0-46.0) % MCV (80.0-100.0) fL MCH (25.0-35.0) pg MCHC (31.0-37.0) g/dL RDW (11.5-15.5) % Plt Count (150-450) k/uL Neutrophils % % Lymphocytes % % Monocytes % % Eosinophils % % Basophils % % Neutrophils # (1.3-7.7) k/uL Lymphocytes # (1.0-4.8) k/uL Monocytes # (0-1.0) k/uL Eosinophils # (0-0.7) k/uL Basophils # (0-0.2) k/uL VBG pH 7.38 (7.31-7.41) VBG pCO2 44 (37-51) mmHg VBG HCO3 25 (24-28) mmol/L Sodium (137-145) mmol/L Potassium (3.5-5.1) mmol/L Chloride (98-107) mmol/L Carbon Dioxide (22-30) mmol/L Anion Gap mmol/L BUN (7-17) mg/dL Creatinine (0.52-1.04) mg/dL Est GFR (CKD-EPI)AfAm (>60 ml/min/1.73 sqM) Est GFR (CKD-EPI)NonAf (>60 ml/min/1.73 sqM) Glucose (74-99) mg/dL Calcium (8.4-10.2) mg/dL Total Bilirubin (0.2-1.3) mg/dL AST (14-36) U/L ALT (9-52) U/L Alkaline Phosphatase (38-126) U/L Total Protein (6.3-8.2) g/dL Albumin (3.5-5.0) g/dL Lipase (23-300) U/L Urine Color Colorless Urine Appearance Clear (Clear) Urine pH 6.5 (5.0-8.0) Ur Specific [place] 1.034 (1.001-1.035) Urine Protein Negative (Negative) Urine Glucose (UA) 4+ H (Negative) Urine Ketones Negative (Negative) Urine Blood Negative (Negative) Urine Nitrite Negative (Negative) Urine Bilirubin Negative (Negative) Urine Urobilinogen <2.0 (<2.0) mg/dL Ur Leukocyte Esterase Negative (Negative) Urine HCG, Qual (Not Detectd) Disposition Clinical Impression: Constipation, Hyperglycemia Disposition: HOME SELF-CARE Condition: Stable Instructions: Constipation (ED), Diabetic Hyperglycemia (ED) Prescriptions: Sennosides [Senna] 8.6 mg PO BID #4 tablet Is patient prescribed a controlled substance at d/c from ED?: No Referrals: Jairo Conroy MD [Primary Care Provider] - 1-2 days Time of Disposition: 19:17
[2017-10-24 17:57] LABS: Appearance,Urine Clear (Clear); Basophils % (A) 0 %; Bilirubin,Urine Negative (Negative); Blood,Urine Negative (Negative); Color,Urine Colorless; Eosinophils % (A) 1 %; Glucose,Urine (UA) 4+ (Negative); HCT 39.4 % (34.0-46.0); HGB 13.3 gm/dL (11.4-16.0); Ketones,Urine Negative (Negative); Leukocyte Esterase,Urine Negative (Negative); Lymphocytes # (A) 2.1 k/uL (1.0-4.8); Lymphocytes % (A) 31 %; MCH 29.9 pg (25.0-35.0); MCHC 33.8 g/dL (31.0-37.0); MCV 88.3 fL (80.0-100.0); Mean Platelet Volume 7.9; Monocytes # (A) 0.3 k/uL (0-1.0); Monocytes % (A) 5 %; Neutrophils # (A) 4.2 k/uL (1.3-7.7); Neutrophils % (A) 61 %; Nitrite,Urine Negative (Negative); PH, Urine 6.5 (5.0-8.0); Platelet Count 344 k/uL (150-450); Protein,Urine Negative (Negative); RBC 4.47 m/uL (3.80-5.40); RDW 12.4 % (11.5-15.5); Specific Gravity,Urine 1.034 (1.001-1.035); Urobilinogen,Urine <2.0 mg/dL (<2.0); WBC 6.8 k/uL (3.8-10.6)
[2017-10-24 18:16] LABS: ALT 25 U/L (9-52); AST 11 U/L (14-36); Albumin 4.4 g/dL (3.5-5.0); Alkaline Phosphatase 74 U/L (38-126); Anion Gap 15 mmol/L; Blood Urea Nitrogen 8 mg/dL (7-17); Calcium 9.4 mg/dL (8.4-10.2); Carbon Dioxide 22 mmol/L (22-30); Chloride 104 mmol/L (98-107); Lipase 164 U/L (23-300); Potassium 4.4 mmol/L (3.5-5.1); Sodium 141 mmol/L (137-145); Total Bilirubin 1.1 mg/dL (0.2-1.3); Total Protein 7.2 g/dL (6.3-8.2)
--- NOTE | 2017-10-24 18:17 | US ---
EXAMINATION TYPE: US abdomen complete DATE OF EXAM: 10/24/2017 COMPARISON: CT 2018 CLINICAL HISTORY: Pain. Abdomen pain and nausea EXAM MEASUREMENTS: Liver Length: 14.5 cm Gallbladder Wall: 0.2 cm CBD: 0.3 cm Spleen: 10.2 cm Right Kidney: 10.4 x 6.1 x 5.6 cm Left Kidney: 11.2 x 5.9 x 5.7 cm Pancreas: obscured by overlying midline bowel gas Liver: wnl Gallbladder: appears slightly contract, wnl as seen Evidence for sonographic Lewis's sign: yes CBD: visualized portions wnl, limited by overlying bowel gas Spleen: visualized portions wnl, limited by overlying bowel gas Right Kidney: wnl Left Kidney: wnl Upper IVC: wnl Abd Aorta: visualized portions wnl, limited by overlying midline bowel gas IMPRESSION: No gallstones or dilated ducts. No renal mass or obstruction. No free fluid.
[2017-10-24 18:32] LABS: VBG PH 7.38 (7.31-7.41)
[2017-10-24 18:36] LABS: Glucose 476 mg/dL (74-99)
[2017-10-24] MEDS ORDERED: POLYETHYLENE GLYCOL 3350 17 GM POWD.PACK PO STA (18:43)
[2017-10-24] MEDS ORDERED: SENNOSIDES 8.6 MG TAB PO STA (18:43)
[2017-10-24] MEDS ORDERED: INSULIN REGULAR 100 UNIT/ML VIAL IV ONE (19:03)
[2017-10-24 19:07] VITALS: BP 138/87; PULSE 115; RESP 18; TEMP 98.6
[2017-10-24] MEDS ORDERED: HYDROcodone/APAP 5-325MG 1 EACH TAB PO STA (19:19)
== END 2017-10-24 19:29 | disposition home or self-care (01) ==
LOC: EC 16:50
DX: K59.00 Constipation, unspecified (principal); E11.65 Type 2 diabetes mellitus with hyperglycemia; F32.9 Major depressive disorder, single episode, unspecified; F41.9 Anxiety disorder, unspecified; Z79.4 Long term (current) use of insulin; Z79.899 Other long term (current) drug therapy
CPT/HCPCS: 99284; 96374; 96361 ×2; 36415; 80053; 82803; 83690; 85025; 81003; 81025; 76700; J2405

== ENCOUNTER → 2017-11-12 | Outpatient (CLI) | payer OTHER ==
--- NOTE | 2017-11-13 02:13 | MR ---
EXAMINATION TYPE: MR lumbar spine wo con DATE OF EXAM: 11/12/2017 COMPARISON: HISTORY: TECHNIQUE: Multiplanar, multisequence images of the lumbar spine were acquired. The lumbar vertebra have normal alignment. Disc spaces are fairly normal. There is no compression fra cture. The neural foramina appear widely patent. Lumbar nerve roots appear normal. Posterior elements are intact. There is no evidence of a bony destructive process. Sacroiliac joints appear normal. The re is no lumbar paraspinal mass. IMPRESSION: Lumbar spine appears normal for age. No lumbar disc herniation. No fracture.
== END | disposition home or self-care (01) ==
LOC: RADMRIMAIN 19:11
PROVIDERS: ATTEND Internal Medicine
DX: M54.5 Low back pain (principal)
CPT/HCPCS: 72148

== ENCOUNTER 2017-11-14 19:31 | Emergency (ER) | payer OTHER ==
[2017-11-14] MEDS ORDERED: ONDANSETRON 4 MG/2 ML VIAL IVP STA (21:35)
[2017-11-14] MEDS ORDERED: SODIUM CHLORIDE 0.9% 1,000 ML IV STA ×2 (21:35→21:56)
[2017-11-14] MEDS ORDERED: KETOROLAC 30 MG/ML 1 ML VIAL IVP STA (21:35)
--- NOTE | 2017-11-14 21:37 | ED ---
Abdominal Pain HPI - General Chief Complaint: Abdominal Pain Stated Complaint: left abdominal pain Time Seen by Provider: 11/14/17 21:31 Source: patient, RN notes reviewed Mode of arrival: wheelchair Limitations: no limitations - History of Present Illness Initial Comments: This is a 32-year-old female who presents to the emergency department with chief complaint of abdominal pain. Patient states that she has been experiencing left lower pelvic pain for over a month. She states that 4 weeks ago she was evaluated at [facility] and diagnosed with a possible ovarian cyst. She states that she has an appointment to follow-up with her SOFTWARE SUPPORT TECHNICIAN on November 16. Patient states that the pain increased today. She admits to nausea but denies vomiting. Denies fevers or chills, constipation or diarrhea, dysuria or hematuria. She denies flank pain. - Related Data Home Medications Medication Instructions Recorded Confirmed Insulin Glargine,Hum.rec.anlog 22 units SQ HS 10/18/17 10/21/17 [Toujeo Solostar] ALPRAZolam [Xanax] 0.25 mg PO DAILY PRN 10/21/17 10/21/17 Escitalopram [Lexapro] 10 mg PO DAILY PRN 10/21/17 10/21/17 INSULIN LISPRO (HumaLOG) [HumaLOG] See Protocol SQ AC-TID PRN 10/21/17 10/21/17 INSULIN LISPRO (humaLOG) [humaLOG] 8 units SQ AC-TID 10/21/17 10/21/17 Previous Rx's Medication Instructions Recorded Sennosides [Senna] 8.6 mg PO BID #4 tablet 10/24/17 Allergies Allergy/AdvReac Type Severity Reaction Status Date / Time No Known Allergies Allergy Verified 11/14/17 20:10 Review of Systems ROS Statement: Those systems with pertinent positive or pertinent negative responses have been documented in the HPI. ROS Other: All systems not noted in ROS Statement are negative. Past Medical History Past Medical History: Diabetes Mellitus Additional Past Medical History / Comment(s): HX ENDOMETRIOSIS; GESTATIONAL DIABETES; Migraine headaches History of Any Multi-Drug Resistant Organisms: None Reported Past Surgical History: Tubal Ligation Additional Past Surgical History / Comment(s): LAPAROSCOPIC REMOVAL TUBE AND OVARY-right Past Anesthesia/Blood Transfusion Reactions: No Reported Reaction Additional Past Anesthesia/Blood Transfusion Reaction / Comment(s): HAD MULT INJ FOR DENTAL WORK, INEFFECTIVE. Past Psychological History: Anxiety, Depression Smoking Status: Never smoker Past Alcohol Use History: None Reported Past Drug Use History: None Reported - Past Family History Mother Family Medical History: Rheumatoid Arthritis (RA) Father Family Medical History: Cancer, Diabetes Mellitus, Deep Vein Thrombosis (DVT), Hypertension General Exam - General Exam Comments Initial Comments: General: Awake and alert, well-developed; in mild distress. Patient is tearful. HEENT: Head atraumatic, normocephalic. Pupils are equal, round and reactive to light. Extraocular movements intact. Oropharynx moist without erythema or exudate. Neck: Supple. Normal ROM. Cardiovascular: Regular rate and rhythm. No murmurs, rubs or gallops. Chest symmetrical. Respiratory: Lungs clear to auscultation bilaterally. No wheezes, rales or rhonchi. Normal respiratory effort with no use of accessory muscles. Abdomen: Soft, non-distended. Tenderness on palpation of the left pelvic region. No rigidity, rebound or guarding. Normal bowel sounds in all 4 quadrants. Musculoskeletal: Normal ROM, no tenderness bilateral upper and lower extremities. Skin: [place], warm and dry without rashes or lesions. Neurological: Alert and oriented x3. CN II-XII grossly intact. Speech is fluent and answers are appropriate. No focal neuro deficits. Psychiatric: Normal mood and affect. No overt signs of depression or anxiety noted. Limitations: no limitations Course Vital Signs 11/14/17 11/14/17 20:06 22:55 Temperature 98.5 F Pulse Rate 143 H 99 Respiratory 20 16 Rate Blood Pressure 131/90 139/84 O2 Sat by Pulse 98 99 Oximetry Medical Decision Making - Medical Decision Making This is a 32-year-old female who presents to the emergency department with chief complaint of left pelvic pain. Patient states that this has been present for the past one month but that it increased today. She was told one month ago at [facility] that she may have an ovarian cyst and is to follow-up with her OB/ [employer]. She does have an appointment scheduled for November 16. Patient does have tenderness on palpation of the left pelvic region. An ultrasound was obtained and they were unable to visualize the left ovary due to obscuring bowel gas. Patient is a diabetic. She was noted to have 4+ glucose and 4+ ketones in her urine. Blood glucose was 323. Patient was given 5 units of insulin and a 2 L boluses of fluid. Patient's vital signs are stable and she is in no acute distress. She states that pain has improved. She will be discharged home at this time. Recommended following up with her SOFTWARE SUPPORT TECHNICIAN as scheduled on the . She is in agreement and voices understanding. All questions answered. - Lab Data Result diagrams: 11/14/17 21:19 11/14/17 21:19 Lab Results 11/14/17 11/14/17 11/14/17 Range/Units 21:09 21: 21:19 WBC (3.8-10.6) k/uL RBC (3.80-5.40) m/uL Hgb (11.4-16.0) gm/dL Hct (34.0-46.0) % MCV (80.0-100.0) fL MCH (25.0-35.0) pg MCHC (31.0-37.0) g/dL RDW (11.5-15.5) % Plt Count (150-450) k/uL Neutrophils % % Lymphocytes % % Monocytes % % Eosinophils % % Basophils % % Neutrophils # (1.3-7.7) k/uL Lymphocytes # (1.0-4.8) k/uL Monocytes # (0-1.0) k/uL Eosinophils # (0-0.7) k/uL Basophils # (0-0.2) k/uL Sodium 141 (137-145) mmol/L Potassium 3.9 (3.5-5.1) mmol/L Chloride 103 (98-107) mmol/L Carbon Dioxide 21 L (22-30) mmol/L Anion Gap 17 mmol/L BUN 12 (7-17) mg/dL Creatinine 0.40 L (0.52-1.04) mg/dL Est GFR (CKD-EPI)AfAm >90 (>60 ml/min/1.73 sqM) Est GFR (CKD-EPI)NonAf >90 (>60 ml/min/1.73 sqM) Glucose 323 H (74-99) mg/dL Calcium 9.4 (8.4-10.2) mg/dL Total Bilirubin 1.9 H (0.2-1.3) mg/dL AST 14 (14-36) U/L ALT 25 (9-52) U/L Alkaline Phosphatase 74 (38-126) U/L Total Protein 7.6 (6.3-8.2) g/dL Albumin 4.5 (3.5-5.0) g/dL Amylase 40 (30-110) U/L Lipase 89 (23-300) U/L Urine Color Light Yellow Urine Appearance Clear (Clear) Urine pH 5.5 (5.0-8.0) Ur Specific [place] 1.039 H (1.001-1.035) Urine Protein Negative (Negative) Urine Glucose (UA) 4+ H (Negative) Urine Ketones 4+ H (Negative) Urine Blood Negative (Negative) Urine Nitrite Negative (Negative) Urine Bilirubin Negative (Negative) Urine Urobilinogen <2.0 (<2.0) mg/dL Ur Leukocyte Esterase Negative (Negative) Urine HCG, Qual Not Detected (Not Detectd) Acetone, Qual (Negative) 11/14/17 11/14/17 Range/Units 21:19 21:19 WBC 6.5 (3.8-10.6) k/uL RBC 4.67 (3.80-5.40) m/uL Hgb 13.9 (11.4-16.0) gm/dL Hct 40.9 (34.0-46.0) % MCV 87.6 (80.0-100.0) fL MCH 29.7 (25.0-35.0) pg MCHC 33.9 (31.0-37.0) g/dL RDW 12.7 (11.5-15.5) % Plt Count 267 (150-450) k/uL Neutrophils % 56 % Lymphocytes % 35 % Monocytes % 6 % Eosinophils % 1 % Basophils % 0 % Neutrophils # 3.7 (1.3-7.7) k/uL Lymphocytes # 2.3 (1.0-4.8) k/uL Monocytes # 0.4 (0-1.0) k/uL Eosinophils # 0.1 (0-0.7) k/uL Basophils # 0.0 (0-0.2) k/uL Sodium (137-145) mmol/L Potassium (3.5-5.1) mmol/L Chloride (98-107) mmol/L Carbon Dioxide (22-30) mmol/L Anion Gap mmol/L BUN (7-17) mg/dL Creatinine (0.52-1.04) mg/dL Est GFR (CKD-EPI)AfAm (>60 ml/min/1.73 sqM) Est GFR (CKD-EPI)NonAf (>60 ml/min/1.73 sqM) Glucose (74-99) mg/dL Calcium (8.4-10.2) mg/dL Total Bilirubin (0.2-1.3) mg/dL AST (14-36) U/L ALT (9-52) U/L Alkaline Phosphatase (38-126) U/L Total Protein (6.3-8.2) g/dL Albumin (3.5-5.0) g/dL Amylase (30-110) U/L Lipase (23-300) U/L Urine Color Urine Appearance (Clear) Urine pH (5.0-8.0) Ur Specific [place] (1.001-1.035) Urine Protein (Negative) Urine Glucose (UA) (Negative) Urine Ketones (Negative) Urine Blood (Negative) Urine Nitrite (Negative) Urine Bilirubin (Negative) Urine Urobilinogen (<2.0) mg/dL Ur Leukocyte Esterase (Negative) Urine HCG, Qual (Not Detectd) Acetone, Qual Negative (Negative) - Radiology Data Radiology results: report reviewed Transvaginal ultrasound impression: No adnexal mass or free fluid in the pelvis. No evidence of endometrial mass. There is a 2 mm thick small fluid collection in the uterine fundus. No endometrial thickening. Disposition Clinical Impression: Pelvic pain Disposition: HOME SELF-CARE Condition: Good Instructions: Pelvic Pain in Women (ED) Additional Instructions: Please follow-up with her SOFTWARE SUPPORT TECHNICIAN as scheduled. Please follow up with primary care provider within 1-2 days. Return to emergency department if symptoms should worsen or any concerns arise. Is patient prescribed a controlled substance at d/c from ED?: No Referrals: Jairo Conroy MD [Primary Care Provider] - 1-2 days Time of Disposition: 23:08
[2017-11-14 21:49] LABS: Basophils % (A) 0 %; Eosinophils # (A) 0.1 k/uL (0-0.7); Eosinophils % (A) 1 %; HCT 40.9 % (34.0-46.0); HGB 13.9 gm/dL (11.4-16.0); Lymphocytes # (A) 2.3 k/uL (1.0-4.8); Lymphocytes % (A) 35 %; MCH 29.7 pg (25.0-35.0); MCHC 33.9 g/dL (31.0-37.0); MCV 87.6 fL (80.0-100.0); Mean Platelet Volume 7.9; Monocytes # (A) 0.4 k/uL (0-1.0); Monocytes % (A) 6 %; Neutrophils # (A) 3.7 k/uL (1.3-7.7); Neutrophils % (A) 56 %; Platelet Count 267 k/uL (150-450); RBC 4.67 m/uL (3.80-5.40); RDW 12.7 % (11.5-15.5); WBC 6.5 k/uL (3.8-10.6)
[2017-11-14 21:49] LABS: Appearance,Urine Clear (Clear); Bilirubin,Urine Negative (Negative); Blood,Urine Negative (Negative); Color,Urine Light Yellow; Glucose,Urine (UA) 4+ (Negative); Leukocyte Esterase,Urine Negative (Negative); Nitrite,Urine Negative (Negative); PH, Urine 5.5 (5.0-8.0); Protein,Urine Negative (Negative); Specific Gravity,Urine 1.039 (1.001-1.035); Urobilinogen,Urine <2.0 mg/dL (<2.0)
[2017-11-14 21:52] LABS: Ketones,Urine 4+ (Negative)
[2017-11-14 22:03] LABS: ALT 25 U/L (9-52); AST 14 U/L (14-36); Albumin 4.5 g/dL (3.5-5.0); Alkaline Phosphatase 74 U/L (38-126); Amylase 40 U/L (30-110); Anion Gap 17 mmol/L; Blood Urea Nitrogen 12 mg/dL (7-17); Calcium 9.4 mg/dL (8.4-10.2); Carbon Dioxide 21 mmol/L (22-30); Chloride 103 mmol/L (98-107); Glucose 323 mg/dL (74-99); Lipase 89 U/L (23-300); Sodium 141 mmol/L (137-145); Total Bilirubin 1.9 mg/dL (0.2-1.3); Total Protein 7.6 g/dL (6.3-8.2)
[2017-11-14 22:04] LABS: Potassium 3.9 mmol/L (3.5-5.1)
[2017-11-14] MEDS ORDERED: INSULIN ASPART 100 UNIT/ML 1 ML 10 ML VIAL SQ ONE (22:37)
--- NOTE | 2017-11-14 22:48 | US ---
EXAMINATION TYPE: US transvaginal DATE OF EXAM: 11/14/2017 COMPARISON: NONE CLINICAL HISTORY: Pain. Left pelvic pain. Right oopherectomy 2001. Tubal ligation 2014 TECHNIQUE: Transvaginal (TV). Date of LMP: unknown EXAM MEASUREMENTS: Uterus: 6.0 x 3.3 x 3.8 cm Endometrial Stripe: 0.5 cm Right Ovary: Surgically absent Left Ovary: unable to visualize 1. Uterus: Retroverted possible fluid within fundus = 1.2cm 2. Endometrium: 3. Right Ovary: Surgically absent 4. Left Ovary: Obscured by large amount of overlying bowel gas 5. Bilateral Adnexa: appears wnl 6. Posterior cul-de-sac: wnl IMPRESSION: No adnexal mass or free fluid in the pelvis. No evidence of endometrial mass. There is a 2 mm thick small fluid collection in the uterine fundus. No endometrial thickening.
[2017-11-14 22:55] VITALS: PULSE 99; RESP 16
[2017-11-14 23:35] LABS: Glucose,Whole Blood 226 mg/dL (75-99)
[2017-11-15 00:11] VITALS: BP 137/84; TEMP 98.3
== END 2017-11-15 00:09 | disposition home or self-care (01) ==
LOC: EC 19:31
DX: R10.2 Pelvic and perineal pain (principal); R93.8 Abnormal findings on diagnostic imaging of other specified body structures; R82.4 Acetonuria; E11.65 Type 2 diabetes mellitus with hyperglycemia; R45.83 Excessive crying of child, adolescent or adult; R11.0 Nausea; Z79.4 Long term (current) use of insulin; Z98.51 Tubal ligation status; Z90.721 Acquired absence of ovaries, unilateral; Z83.3 Family history of diabetes mellitus
CPT/HCPCS: 99284; 96374; 96375; 36415; 80053; 82150; 82009; 83690; 85025; 81003; 81025; 76830; J2405; J1885

== ENCOUNTER 2017-12-11 21:08 | Emergency (ER) | payer OTHER ==
[2017-12-11] MEDS ORDERED: HYDROcodone/APAP 5-325MG 1 EACH TAB PO STA (22:23)
[2017-12-11] MEDS ORDERED: KETOROLAC 30 MG/ML 1 ML VIAL IVP STA (22:23)
--- NOTE | 2017-12-11 22:25 | ED ---
Abdominal Pain HPI - General Chief Complaint: Abdominal Pain Stated Complaint: Abd pain Time Seen by Provider: 12/11/17 22:06 Source: patient, RN notes reviewed Mode of arrival: ambulatory Limitations: no limitations - History of Present Illness Initial Comments: 32-year-old female presents emergency Department chief complaint abdominal pain. Patient states that she certainly worsening pain today but has been having ongoing pain from which she's been told was ovarian cyst. Patient denies any vaginal bleeding vaginal discharge. She does admit to some mild dysuria no hematuria. Patient denies any back pain, flank pain, nausea vomiting diarrhea constipation. Patient states pain seems to wax and wane does resolve at times. - Related Data Home Medications Medication Instructions Recorded Confirmed Insulin Glargine,Hum.rec.anlog 22 units SQ HS 10/18/17 10/21/17 [Toujeo Solostar] ALPRAZolam [Xanax] 0.25 mg PO DAILY PRN 10/21/17 10/21/17 Escitalopram [Lexapro] 10 mg PO DAILY PRN 10/21/17 10/21/17 INSULIN LISPRO (HumaLOG) [HumaLOG] See Protocol SQ AC-TID PRN 10/21/17 10/21/17 INSULIN LISPRO (humaLOG) [humaLOG] 8 units SQ AC-TID 10/21/17 10/21/17 Previous Rx's Medication Instructions Recorded Sennosides [Senna] 8.6 mg PO BID #4 tablet 10/24/17 Allergies Allergy/AdvReac Type Severity Reaction Status Date / Time No Known Allergies Allergy Verified 12/11/17 21:39 Review of Systems ROS Statement: Those systems with pertinent positive or pertinent negative responses have been documented in the HPI. ROS Other: All systems not noted in ROS Statement are negative. Past Medical History Past Medical History: Diabetes Mellitus Additional Past Medical History / Comment(s): HX ENDOMETRIOSIS; GESTATIONAL DIABETES; Migraine headaches History of Any Multi-Drug Resistant Organisms: None Reported Past Surgical History: Tubal Ligation Additional Past Surgical History / Comment(s): LAPAROSCOPIC REMOVAL TUBE AND OVARY-right Past Anesthesia/Blood Transfusion Reactions: No Reported Reaction Additional Past Anesthesia/Blood Transfusion Reaction / Comment(s): HAD MULT INJ FOR DENTAL WORK, INEFFECTIVE. Past Psychological History: Anxiety, Depression Smoking Status: Never smoker Past Alcohol Use History: None Reported Past Drug Use History: None Reported - Past Family History Mother Family Medical History: Rheumatoid Arthritis (RA) Father Family Medical History: Cancer, Diabetes Mellitus, Deep Vein Thrombosis (DVT), Hypertension General Exam Limitations: no limitations General appearance: alert, in no apparent distress Head exam: Present: atraumatic, normocephalic, normal inspection Neck exam: Present: normal inspection. Absent: tenderness, meningismus, lymphadenopathy Respiratory exam: Present: normal lung sounds bilaterally. Absent: respiratory distress, wheezes, rales, rhonchi, stridor Cardiovascular Exam: Present: regular rate, normal rhythm, normal heart sounds. Absent: systolic murmur, diastolic murmur, rubs, gallop, clicks GI/Abdominal exam: Present: soft, tenderness (Minimal tenderness to left lower quadrant), normal bowel sounds. Absent: distended, guarding, rebound, rigid Back exam: Absent: CVA tenderness (R), CVA tenderness (L) Skin exam: Present: warm, dry, intact, normal color. Absent: rash Course Vital Signs 12/11/17 12/12/17 21:35 00:01 Temperature 98.1 F 98.3 F Pulse Rate 96 93 Respiratory 20 20 Rate Blood Pressure 115/73 121/74 O2 Sat by Pulse 99 97 Oximetry Medical Decision Making - Medical Decision Making 32-year-old female presented emergency department for left-sided abdominal pain. Patient has a 1.9 cm ovarian cyst but there is no evidence of torsion. Patient essentially is normal laboratory within hyperglycemia. Patient is known diabetic. Patient we given pain medication at this time. Return parameters were discussed. - Lab Data Result diagrams: 12/11/17 22:48 12/11/17 22:48 Lab Results 12/11/17 12/11/17 12/11/17 Range/Units 22:48 22:48 22:48 WBC 6.4 (3.8-10.6) k/uL RBC 4.20 (3.80-5.40) m/uL Hgb 12.7 (11.4-16.0) gm/dL Hct 37.5 (34.0-46.0) % MCV 89.3 (80.0-100.0) fL MCH 30.2 (25.0-35.0) pg MCHC 33.8 (31.0-37.0) g/dL RDW 12.8 (11.5-15.5) % Plt Count 254 (150-450) k/uL Neutrophils % 61 % Lymphocytes % 31 % Monocytes % 4 % Eosinophils % 2 % Basophils % 0 % Neutrophils # 3.9 (1.3-7.7) k/uL Lymphocytes # 2.0 (1.0-4.8) k/uL Monocytes # 0.3 (0-1.0) k/uL Eosinophils # 0.1 (0-0.7) k/uL Basophils # 0.0 (0-0.2) k/uL Sodium 138 (137-145) mmol/L Potassium 4.5 (3.5-5.1) mmol/L Chloride 103 (98-107) mmol/L Carbon Dioxide 26 (22-30) mmol/L Anion Gap 9 mmol/L BUN 11 (7-17) mg/dL Creatinine 0.40 L (0.52-1.04) mg/dL Est GFR (CKD-EPI)AfAm >90 (>60 ml/min/1.73 sqM) Est GFR (CKD-EPI)NonAf >90 (>60 ml/min/1.73 sqM) Glucose 326 H (74-99) mg/dL Calcium 8.8 (8.4-10.2) mg/dL Total Bilirubin 1.1 (0.2-1.3) mg/dL AST 18 (14-36) U/L ALT 19 (9-52) U/L Alkaline Phosphatase 50 (38-126) U/L Total Protein 6.7 (6.3-8.2) g/dL Albumin 3.9 (3.5-5.0) g/dL Amylase <30 L (30-110) U/L Lipase 169 (23-300) U/L Urine Color Light Yellow Urine Appearance Clear (Clear) Urine pH 7.0 (5.0-8.0) Ur Specific [place] 1.034 (1.001-1.035) Urine Protein Negative (Negative) Urine Glucose (UA) 4+ H (Negative) Urine Ketones Negative (Negative) Urine Blood Negative (Negative) Urine Nitrite Negative (Negative) Urine Bilirubin Negative (Negative) Urine Urobilinogen 2.0 (<2.0) mg/dL Ur Leukocyte Esterase Negative (Negative) Disposition Clinical Impression: Pelvic pain, Ovarian cyst Disposition: HOME SELF-CARE Condition: Stable Instructions: Ovarian Cyst (ED) Additional Instructions: Please return to the Emergency Department if symptoms worsen or any other concerns. Is patient prescribed a controlled substance at d/c from ED?: No Referrals: Jairo Conroy MD [Primary Care Provider] - 1-2 days Time of Disposition: 01:27
[2017-12-11 22:58] LABS: Appearance,Urine Clear (Clear); Bilirubin,Urine Negative (Negative); Blood,Urine Negative (Negative); Color,Urine Light Yellow; Glucose,Urine (UA) 4+ (Negative); Ketones,Urine Negative (Negative); Leukocyte Esterase,Urine Negative (Negative); Nitrite,Urine Negative (Negative); Protein,Urine Negative (Negative); Specific Gravity,Urine 1.034 (1.001-1.035)
[2017-12-11 22:59] LABS: Basophils % (A) 0 %; Eosinophils # (A) 0.1 k/uL (0-0.7); Eosinophils % (A) 2 %; HCT 37.5 % (34.0-46.0); HGB 12.7 gm/dL (11.4-16.0); Lymphocytes % (A) 31 %; MCH 30.2 pg (25.0-35.0); MCHC 33.8 g/dL (31.0-37.0); MCV 89.3 fL (80.0-100.0); Mean Platelet Volume 7.8; Monocytes # (A) 0.3 k/uL (0-1.0); Monocytes % (A) 4 %; Neutrophils # (A) 3.9 k/uL (1.3-7.7); Neutrophils % (A) 61 %; Platelet Count 254 k/uL (150-450); RDW 12.8 % (11.5-15.5); WBC 6.4 k/uL (3.8-10.6)
[2017-12-11 23:07] LABS: Amylase <30 U/L (30-110); Calcium 8.8 mg/dL (8.4-10.2); Carbon Dioxide 26 mmol/L (22-30); Glucose 326 mg/dL (74-99); Lipase 169 U/L (23-300); Sodium 138 mmol/L (137-145); Total Bilirubin 1.1 mg/dL (0.2-1.3)
[2017-12-11 23:26] LABS: Anion Gap 9 mmol/L; Chloride 103 mmol/L (98-107)
[2017-12-11 23:27] LABS: ALT 19 U/L (9-52); AST 18 U/L (14-36); Albumin 3.9 g/dL (3.5-5.0); Potassium 4.5 mmol/L (3.5-5.1); Total Protein 6.7 g/dL (6.3-8.2)
[2017-12-11 23:28] LABS: Alkaline Phosphatase 50 U/L (38-126); Blood Urea Nitrogen 11 mg/dL (7-17)
[2017-12-12 00:02] VITALS: TEMP 98.3
[2017-12-12] MEDS ORDERED: KETOROLAC 60 MG/2 ML VIAL IM STA (00:24)
--- NOTE | 2017-12-12 01:15 | US ---
EXAMINATION TYPE: US transvaginal DATE OF EXAM: 12/12/2017 COMPARISON: NONE CLINICAL HISTORY: Pain. left sided pelvic pain, patient just started control to help with known ov cyst, rt oophorectomy, endometriosis, possible endometrial ablation patient could not remember na me of procedure TECHNIQUE: TV. Date of LMP: no cycles since procedure EXAM MEASUREMENTS: Uterus: 5.0 x 3.9 x 3.4 cm Endometrial Stripe: unable to discern Right Ovary: Surgically absent Left Ovary: 2.1 x 1.7 x 1.6 cm 1. Uterus: Retroverted, positioning of UT is very displaced off to the left and difficult to image, heterogeneous echotexture 2. Endometrium: unable to discern from regular myometrium 3. Right Ovary: Surgically absent 4. Left Ovary: 1.9cm cyst seen, difficult to penetrate ovary due to bowel gas and patients pain leve l Spectral, color and waveform doppler imaging shows good arterial and venous flow within the ovary; there is no evidence for ovarian torsion. 5. Bilateral Adnexa: wnl 6. Posterior cul-de-sac: wnl IMPRESSION: No evidence of ovarian torsion on the left side. Right ovary is absent. No evidence of ovarian mass. No endometrial thickening seen.
[2017-12-12] MEDS ORDERED: ACET/COD 300 MG/30 MG STARTER PACK 6 TAB BTL PO STA (01:26)
[2017-12-12 01:42] VITALS: BP 122/67; PULSE 89; RESP 17
== END 2017-12-12 01:42 | disposition home or self-care (01) ==
LOC: EC 21:08
DX: N83.202 Unspecified ovarian cyst, left side (principal); E11.65 Type 2 diabetes mellitus with hyperglycemia; Z98.51 Tubal ligation status; Z90.721 Acquired absence of ovaries, unilateral; Z90.79 Acquired absence of other genital organ(s); Z79.4 Long term (current) use of insulin
CPT/HCPCS: 36415; 80053; 82150; 83690; 85025; 81003; 93976; 76830; 99284; 96372; J1885

== ENCOUNTER 2017-12-22 07:37 | Day surgery (SDC) | payer OTHER ==
[2017-12-20 18:15] VITALS: BMI 20.5
[~2017-12-22 07:37] MED LIST: LACTATED RINGERS 1,000 ML IV SCH; LIDOCAINE 1% 20 ML VIAL (10MG/ML) FOR IV START INTRADERMA PRN
[2017-12-22 08:27] VITALS: RESP 14; TEMP 97.9
[2017-12-22 08:31] LABS: Glucose,Whole Blood 241 mg/dL (75-99)
[2017-12-22] MEDS ORDERED: ONDANSETRON 4 MG/2 ML VIAL ONE (08:32)
[2017-12-22] MEDS ORDERED: PROPOFOL 10 MG/ML 20 ML VIAL IV ONE (08:32)
[2017-12-22] MEDS ORDERED: ROCURONIUM BROMIDE 10 MG/ML 10 ML VIAL IV ONE (08:32)
--- NOTE | 2017-12-22 09:03 | P.PCN ---
Date of Procedure: 12/22/17 Procedure(s) Performed: BRIEF HISTORY: Patient is a 32-year-old pleasant and The scheduled for an elective colonoscopy as a part of evaluation of chronic severe constipation of several years duration PROCEDURE PERFORMED: Colonoscopy. PREOPERATIVE DIAGNOSIS: Chronic constipation. IV sedation per Anesthesia. PROCEDURE: After informed consent was obtained, the patient, was brought into the endoscopy unit. IV sedation was administered by Anesthesia under continuous monitoring. Digital rectal examination was normal. Initially the Olympus CF- 160 flexible video colonoscope was then inserted in the rectum, gradually advanced into the cecum without any difficulty. Careful examination was performed as the scope was gradually being withdrawn. Ileocecal valve and the appendiceal orifice were visualized and appeared normal. Prep was excellent. Mucosa of the cecum, ascending colon, transverse colon, descending colon, sigmoid colon, and rectum appeared normal. Retroflexion was performed in the rectum and no lesions were seen. The patient tolerated the procedure well. IMPRESSION: Normal-appearing colon from rectum to cecum with no evidence of colorectal neoplasia . RECOMMENDATIONS: Findings of this examination were discussed with the patient as well as her family. She was advised to continue with osmotic laxatives and she'll be seen in the office in 3-4 weeks
[2017-12-22 09:22] VITALS: BP 143/94; PULSE 111
== END 2017-12-22 09:42 | disposition home or self-care (01) ==
LOC: ORWHC2ENDO 07:37
PROVIDERS: ATTEND Internal Medicine Gastroenterology
DX: K59.09 Other constipation (principal); E10.9 Type 1 diabetes mellitus without complications; Z79.4 Long term (current) use of insulin; Z79.899 Other long term (current) drug therapy
CPT/HCPCS: 45378; 81025; J2405; J2704

== ENCOUNTER 2017-12-28 17:44 | Inpatient (IN) | payer OTHER ==
[2017-12-28] MEDS ORDERED: SODIUM CHLORIDE 0.9% 1,000 ML IV STA (17:45)
[2017-12-28] MEDS ORDERED: SODIUM CHLORIDE 0.9% 1,000 ML IV ONE ×2 (18:05→19:55)
[2017-12-28 18:14] LABS: Basophils % (A) 0 %; Eosinophils # (A) 0.1 k/uL (0-0.7); Eosinophils % (A) 1 %; HCT 41.3 % (34.0-46.0); HGB 13.6 gm/dL (11.4-16.0); Lymphocytes # (A) 3.4 k/uL (1.0-4.8); Lymphocytes % (A) 45 %; MCH 28.7 pg (25.0-35.0); MCHC 32.9 g/dL (31.0-37.0); MCV 87.3 fL (80.0-100.0); Mean Platelet Volume 7.5; Monocytes # (A) 0.4 k/uL (0-1.0); Monocytes % (A) 6 %; Neutrophils # (A) 3.4 k/uL (1.3-7.7); Neutrophils % (A) 45 %; Platelet Count 277 k/uL (150-450); RBC 4.73 m/uL (3.80-5.40); RDW 12.3 % (11.5-15.5); WBC 7.6 k/uL (3.8-10.6)
--- NOTE | 2017-12-28 18:15 | ED ---
General Adult HPI - General Chief complaint: Syncope Stated complaint: Syncope Time Seen by Provider: 12/28/17 17:45 Source: patient, EMS, RN notes reviewed, old records reviewed Mode of arrival: EMS Limitations: no limitations - History of Present Illness Initial comments: 32-year-old female presents with syncopal episode. Patient states she was walking to her kitchen, lost consciousness and fell striking the back of her right head. Patient denies any significant preceding symptoms. Denies chest pain or abdominal pain. Denies nausea or vomiting. She has a history of type 1 diabetes. She reported increased thirst over the past several days. She states her sugars have been in the 200s. She did take some insulin prior to the fall. EMS had checked her blood sugar and noted it to be normal. Patient is complaining also of right shoulder pain and right wrist pain status post fall. Denies any lower extremity pain. Denies dysuria or hematuria. Denies diarrhea. - Related Data Home Medications Medication Instructions Recorded Confirmed Insulin Glargine,Hum.rec.anlog 24 units SQ DAILY 10/18/17 12/28/17 [Touaaron Solostbrigida] ALPRAZolam [Xanax] 0.25 mg PO DAILY PRN 10/21/17 12/28/17 Escitalopram [Lexapro] 10 mg PO DAILY PRN 10/21/17 12/28/17 INSULIN LISPRO (HumaLOG) [HumaLOG] See Protocol SQ AC-TID PRN 10/21/17 12/28/17 INSULIN LISPRO (humaLOG) [humaLOG] 8 units SQ AC-TID 10/21/17 12/28/17 Pregabalin [Lyrica] 50 mg PO BID 12/20/17 12/28/17 Amitriptyline HCl [Elavil] 10 mg PO HS 12/28/17 12/28/17 Allergies Allergy/AdvReac Type Severity Reaction Status Date / Time No Known Allergies Allergy Verified 12/28/17 18:02 Review of Systems ROS Statement: Those systems with pertinent positive or pertinent negative responses have been documented in the HPI. ROS Other: All systems not noted in ROS Statement are negative. Past Medical History Past Medical History: Diabetes Mellitus Additional Past Medical History / Comment(s): HX ENDOMETRIOSIS, HPV. 2002 GESTATIONAL DIABETES. Migraine headaches. CONSTIPATION. HAS CYST LT OVARY. History of Any Multi-Drug Resistant Organisms: None Reported Past Surgical History: Tubal Ligation, Uterine Ablation Additional Past Surgical History / Comment(s): LAPAROSCOPIC REMOVAL TUBE AND OVARY-Right. D&C, HYSTEROSCOPY, NOVASURE ABLATION 2016. Past Anesthesia/Blood Transfusion Reactions: No Reported Reaction Additional Past Anesthesia/Blood Transfusion Reaction / Comment(s): HAD MULT INJ FOR DENTAL WORK, INEFFECTIVE. Past Psychological History: Anxiety, Depression Smoking Status: Never smoker Past Alcohol Use History: None Reported Past Drug Use History: None Reported - Past Family History Mother Family Medical History: Rheumatoid Arthritis (RA) Father Family Medical History: Cancer, Diabetes Mellitus, Deep Vein Thrombosis (DVT), Hypertension Additional Family Medical History / Comment(s): THROAT CA General Exam Limitations: no limitations General appearance: alert, in no apparent distress Head exam: Present: atraumatic, normocephalic Eye exam: Present: normal appearance, PERRL ENT exam: Present: mucous membranes dry Neck exam: Present: normal inspection, other (C-collar in place). Absent: tenderness, meningismus Respiratory exam: Present: normal lung sounds bilaterally. Absent: respiratory distress, wheezes Cardiovascular Exam: Present: normal rhythm, tachycardia GI/Abdominal exam: Present: soft. Absent: distended, tenderness Extremities exam: Present: normal inspection, normal capillary refill. Absent: tenderness, pedal edema, joint swelling Neurological exam: Present: alert, oriented X3, CN II-XII intact. Absent: motor sensory deficit Psychiatric exam: Present: normal affect, normal mood Skin exam: Present: warm, dry, intact. Absent: cyanosis, diaphoretic Course Vital Signs 12/28/17 12/28/17 12/28/17 17:53 18:58 20:29 Temperature 98.2 F Pulse Rate 146 H 117 H Respiratory 18 18 16 Rate Blood Pressure 121/80 127/80 O2 Sat by Pulse 98 97 Oximetry 12/28/17 21:40 Temperature Pulse Rate 115 H Respiratory 16 Rate Blood Pressure 146/95 O2 Sat by Pulse 100 Oximetry EKG Findings - EKG Comments: EKG Findings:: EKG: Sinus tachycardia, rate of 143, ME interval 128, QRS duration 72, QTC 441 Medical Decision Making - Medical Decision Making 22-year-old female with type 1 diabetes presenting with syncopal episode. Patient clinically does appear dehydrated, she is tachycardic with stable blood pressure on initial evaluation. Workup in the emergency department reveals normal CBC, normal CMP, urinalysis shows 4+ glucose and 2+ ketones consistent with some dehydration, acetone is negative. Normal anion gap. No signs of DKA at this time. X-ray of the chest is negative for any acute pulmonary disease. X-ray of the wrist and shoulder are obtained secondary to fall from her syncopal episode, these are negative for fracture dislocation. Patient did have head trauma, CT of the head and neck is obtained, this is negative for intracranial hemorrhage, negative for cervical spine fracture or subluxation. Patient receives 3 L of IV hydration, on reevaluation, she remains somewhat lightheaded, she is tachycardic. She will be kept in observation For continued IV hydration, telemetry, and reevaluation. - Lab Data Result diagrams: 12/28/17 17:50 12/28/17 17:50 Lab Results 12/28/17 12/28/17 12/28/17 Range/Units 17:50 17:50 17:50 WBC 7.6 (3.8-10.6) k/uL RBC 4.73 (3.80-5.40) m/uL Hgb 13.6 (11.4-16.0) gm/dL Hct 41.3 (34.0-46.0) % MCV 87.3 (80.0-100.0) fL MCH 28.7 (25.0-35.0) pg MCHC 32.9 (31.0-37.0) g/dL RDW 12.3 (11.5-15.5) % Plt Count 277 (150-450) k/uL Neutrophils % 45 % Lymphocytes % 45 % Monocytes % 6 % Eosinophils % 1 % Basophils % 0 % Neutrophils # 3.4 (1.3-7.7) k/uL Lymphocytes # 3.4 (1.0-4.8) k/uL Monocytes # 0.4 (0-1.0) k/uL Eosinophils # 0.1 (0-0.7) k/uL Basophils # 0.0 (0-0.2) k/uL PT (9.0-12.0) sec INR (<1.2) APTT (22.0-30.0) sec Sodium 139 (137-145) mmol/L Potassium 3.8 (3.5-5.1) mmol/L Chloride 105 (98-107) mmol/L Carbon Dioxide 27 (22-30) mmol/L Anion Gap 7 mmol/L BUN 15 (7-17) mg/dL Creatinine 0.40 L (0.52-1.04) mg/dL Est GFR (CKD-EPI)AfAm >90 (>60 ml/min/1.73 sqM) Est GFR (CKD-EPI)NonAf >90 (>60 ml/min/1.73 sqM) Glucose 104 H (74-99) mg/dL Plasma Lactic Acid Silvino (0.7-2.0) mmol/L Calcium 9.5 (8.4-10.2) mg/dL Magnesium 1.8 (1.6-2.3) mg/dL Total Bilirubin 2.3 H (0.2-1.3) mg/dL AST 20 (14-36) U/L ALT 17 (9-52) U/L Alkaline Phosphatase 62 (38-126) U/L Total Creatine Kinase 47 (30-135) U/L CK-MB (CK-2) 0.3 (0.0-2.4) ng/mL CK-MB (CK-2) Rel Index 0.6 Troponin I <0.012 (0.000-0.034) ng/mL Total Protein 6.9 (6.3-8.2) g/dL Albumin 3.9 (3.5-5.0) g/dL Urine Color Urine Appearance (Clear) Urine pH (5.0-8.0) Ur Specific Ches[place] (1.001-1.035) Urine Protein (Negative) Urine Glucose (UA) (Negative) Urine Ketones (Negative) Urine Blood (Negative) Urine Nitrite (Negative) Urine Bilirubin (Negative) Urine Urobilinogen (<2.0) mg/dL Ur Leukocyte Esterase (Negative) Urine RBC (0-5) /hpf Urine WBC (0-5) /hpf Ur Squamous Epith Cells (0-4) /hpf Urine Mucus (None) /hpf Urine HCG, Qual (Not Detectd) Urine Opiates Screen (NotDetected) Ur Oxycodone Screen (NotDetected) Urine Methadone Screen (NotDetected) Ur Propoxyphene Screen (NotDetected) Ur Barbiturates Screen (NotDetected) U Tricyclic Antidepress (NotDetected) Ur Phencyclidine Scrn (NotDetected) Ur Amphetamines Screen (NotDetected) U Methamphetamines Scrn (NotDetected) U Benzodiazepines Scrn (NotDetected) Urine Cocaine Screen (NotDetected) U Marijuana (THC) Screen (NotDetected) Acetone, Qual Negative (Negative) 12/28/17 12/28/17 12/28/17 Range/Units 17:50 17:50 21:41 WBC (3.8-10.6) k/uL RBC (3.80-5.40) m/uL Hgb (11.4-16.0) gm/dL Hct (34.0-46.0) % MCV (80.0-100.0) fL MCH (25.0-35.0) pg MCHC (31.0-37.0) g/dL RDW (11.5-15.5) % Plt Count (150-450) k/uL Neutrophils % % Lymphocytes % % Monocytes % % Eosinophils % % Basophils % % Neutrophils # (1.3-7.7) k/uL Lymphocytes # (1.0-4.8) k/uL Monocytes # (0-1.0) k/uL Eosinophils # (0-0.7) k/uL Basophils # (0-0.2) k/uL PT 10.4 (9.0-12.0) sec INR 1.1 (<1.2) APTT 20.3 L (22.0-30.0) sec Sodium (137-145) mmol/L Potassium (3.5-5.1) mmol/L Chloride (98-107) mmol/L Carbon Dioxide (22-30) mmol/L Anion Gap mmol/L BUN (7-17) mg/dL Creatinine (0.52-1.04) mg/dL Est GFR (CKD-EPI)AfAm (>60 ml/min/1.73 sqM) Est GFR (CKD-EPI)NonAf (>60 ml/min/1.73 sqM) Glucose (74-99) mg/dL Plasma Lactic Acid Silvino 1.4 (0.7-2.0) mmol/L Calcium (8.4-10.2) mg/dL Magnesium (1.6-2.3) mg/dL Total Bilirubin (0.2-1.3) mg/dL AST (14-36) U/L ALT (9-52) U/L Alkaline Phosphatase (38-126) U/L Total Creatine Kinase (30-135) U/L CK-MB (CK-2) (0.0-2.4) ng/mL CK-MB (CK-2) Rel Index Troponin I (0.000-0.034) ng/mL Total Protein (6.3-8.2) g/dL Albumin (3.5-5.0) g/dL Urine Color Light Yellow Urine Appearance Cloudy H (Clear) Urine pH 6.0 (5.0-8.0) Ur Specific [place] 1.027 (1.001-1.035) Urine Protein Negative (Negative) Urine Glucose (UA) 4+ H (Negative) Urine Ketones 2+ H (Negative) Urine Blood Negative (Negative) Urine Nitrite Negative (Negative) Urine Bilirubin Negative (Negative) Urine Urobilinogen <2.0 (<2.0) mg/dL Ur Leukocyte Esterase Negative (Negative) Urine RBC 2 (0-5) /hpf Urine WBC 3 (0-5) /hpf Ur Squamous Epith Cells 14 H (0-4) /hpf Urine Mucus Rare H (None) /hpf Urine HCG, Qual (Not Detectd) Urine Opiates Screen Not Detected (NotDetected) Ur Oxycodone Screen Not Detected (NotDetected) Urine Methadone Screen Not Detected (NotDetected) Ur Propoxyphene Screen Not Detected (NotDetected) Ur Barbiturates Screen Not Detected (NotDetected) U Tricyclic Antidepress Not Detected (NotDetected) Ur Phencyclidine Scrn Not Detected (NotDetected) Ur Amphetamines Screen Not Detected (NotDetected) U Methamphetamines Scrn Not Detected (NotDetected) U Benzodiazepines Scrn Not Detected (NotDetected) Urine Cocaine Screen Not Detected (NotDetected) U Marijuana (THC) Screen Not Detected (NotDetected) Acetone, Qual (Negative) 12/28/17 Range/Units 21:41 WBC (3.8-10.6) k/uL RBC (3.80-5.40) m/uL Hgb (11.4-16.0) gm/dL Hct (34.0-46.0) % MCV (80.0-100.0) fL MCH (25.0-35.0) pg MCHC (31.0-37.0) g/dL RDW (11.5-15.5) % Plt Count (150-450) k/uL Neutrophils % % Lymphocytes % % Monocytes % % Eosinophils % % Basophils % % Neutrophils # (1.3-7.7) k/uL Lymphocytes # (1.0-4.8) k/uL Monocytes # (0-1.0) k/uL Eosinophils # (0-0.7) k/uL Basophils # (0-0.2) k/uL PT (9.0-12.0) sec INR (<1.2) APTT (22.0-30.0) sec Sodium (137-145) mmol/L Potassium (3.5-5.1) mmol/L Chloride (98-107) mmol/L Carbon Dioxide (22-30) mmol/L Anion Gap mmol/L BUN (7-17) mg/dL Creatinine (0.52-1.04) mg/dL Est GFR (CKD-EPI)AfAm (>60 ml/min/1.73 sqM) Est GFR (CKD-EPI)NonAf (>60 ml/min/1.73 sqM) Glucose (74-99) mg/dL Plasma Lactic Acid Silvino (0.7-2.0) mmol/L Calcium (8.4-10.2) mg/dL Magnesium (1.6-2.3) mg/dL Total Bilirubin (0.2-1.3) mg/dL AST (14-36) U/L ALT (9-52) U/L Alkaline Phosphatase (38-126) U/L Total Creatine Kinase (30-135) U/L CK-MB (CK-2) (0.0-2.4) ng/mL CK-MB (CK-2) Rel Index Troponin I (0.000-0.034) ng/mL Total Protein (6.3-8.2) g/dL Albumin (3.5-5.0) g/dL Urine Color Urine Appearance (Clear) Urine pH (5.0-8.0) Ur Specific [place] (1.001-1.035) Urine Protein (Negative) Urine Glucose (UA) (Negative) Urine Ketones (Negative) Urine Blood (Negative) Urine Nitrite (Negative) Urine Bilirubin (Negative) Urine Urobilinogen (<2.0) mg/dL Ur Leukocyte Esterase (Negative) Urine RBC (0-5) /hpf Urine WBC (0-5) /hpf Ur Squamous Epith Cells (0-4) /hpf Urine Mucus (None) /hpf Urine HCG, Qual Not Detected (Not Detectd) Urine Opiates Screen (NotDetected) Ur Oxycodone Screen (NotDetected) Urine Methadone Screen (NotDetected) Ur Propoxyphene Screen (NotDetected) Ur Barbiturates Screen (NotDetected) U Tricyclic Antidepress (NotDetected) Ur Phencyclidine Scrn (NotDetected) Ur Amphetamines Screen (NotDetected) U Methamphetamines Scrn (NotDetected) U Benzodiazepines Scrn (NotDetected) Urine Cocaine Screen (NotDetected) U Marijuana (THC) Screen (NotDetected) Acetone, Qual (Negative) Disposition Clinical Impression: Syncope due to orthostatic hypotension, Dehydration Disposition: ADMITTED IP TO THIS [facility] Condition: Stable Is patient prescribed a controlled substance at d/c from ED?: No Referrals: Jairo Conroy MD [Primary Care Provider] - 1-2 days Decision to Admit Reason: Admit from EC Decision Date: 12/28/17 Decision Time: 23:12
[2017-12-28 18:22] LABS: ALT 17 U/L (9-52); AST 20 U/L (14-36); Albumin 3.9 g/dL (3.5-5.0); Alkaline Phosphatase 62 U/L (38-126); Anion Gap 7 mmol/L; Blood Urea Nitrogen 15 mg/dL (7-17); Calcium 9.5 mg/dL (8.4-10.2); Carbon Dioxide 27 mmol/L (22-30); Chloride 105 mmol/L (98-107); Glucose 104 mg/dL (74-99); Magnesium 1.8 mg/dL (1.6-2.3); Potassium 3.8 mmol/L (3.5-5.1); Sodium 139 mmol/L (137-145); Total Bilirubin 2.3 mg/dL (0.2-1.3); Total Protein 6.9 g/dL (6.3-8.2)
[2017-12-28 18:24] LABS: Creatine Kinase 47 U/L (30-135)
[2017-12-28 18:26] LABS: INR 1.1 (<1.2); Prothrombin Time 10.4 sec (9.0-12.0)
[2017-12-28 18:29] LABS: Partial Thromboplastin Time 20.3 sec (22.0-30.0)
[2017-12-28 18:36] LABS: Creatine Kinase MB 0.3 ng/mL (0.0-2.4); Troponin I <0.012 ng/mL (0.000-0.034)
--- NOTE | 2017-12-28 20:05 | CT ---
EXAMINATION TYPE: CT brain danielleine wo con DATE OF EXAM: 12/28/2017 COMPARISON: 07/03/2010 HISTORY: syncope CT DLP: 1264 mGycm Automated exposure control for dose reduction was used. TECHNIQUE: CT scan of the head and cervical spine are performed without contrast. FINDINGS: There is no acute intracranial hemorrhage, mass effect, or midline shift identified. The ventricles and sulci are within normal limits in size. The globes are intact and the visualized sin uses are clear. Cervical spine is visualized in its entirety from C1 through upper thoracic levels and demonstrates s atisfactory alignment without evidence of acute fracture or dislocation. Prevertebral soft tissue ap pears within normal limits. The C1-C2 articulation is unremarkable. IMPRESSION: 1. There is no acute fracture or dislocation evident in the cervical spine. 2. No acute intracranial hemorrhage, mass effect, or midline shift is seen.
[2017-12-28] MEDS ORDERED: KETOROLAC 30 MG/ML 1 ML VIAL IVP STA (21:43)
--- NOTE | 2017-12-28 21:46 | XR ---
EXAMINATION: XR chest 2V DATE AND TIME: 12/28/2017 8:56 PM ORDERING PROVIDER: Akhil Fontaine MD CLINICAL INDICATION: syncope TECHNIQUE: PA and lateral COMPARISON: 06/07/2017 DESCRIPTION: The lungs are clear. The pleural spaces are negative. The cardiac silhouette is not enlarged. The mediastinal and pleural silhouettes are unremarkable. The skeletal structures are intact without focal findings. The soft tissues are unremarkable. IMPRESSION: NO ACUTE PROCESS.
--- NOTE | 2017-12-28 21:47 | XR ---
PROCEDURE: XR wrist complete RT 4 views DATE AND TIME: 12/28/2017 8:58 PM REFERRING PHYSICIAN: Akhil Fontaine MD CLINICAL INDICATION: [facility], Pain TECHNIQUE: Department protocol. COMPARISON: None FINDINGS: There is no fracture or malalignment. The soft tissues are unremarkable. IMPRESSION: NO ACUTE PROCESS.
--- NOTE | 2017-12-28 21:47 | XR ---
PROCEDURE: XR shoulder complete RT 3 views DATE AND TIME: 12/28/2017 8:56 PM REFERRING PHYSICIAN: Akhil Fontaine MD CLINICAL INDICATION: PHH, Pain TECHNIQUE: Department protocol. COMPARISON: None FINDINGS: There is no fracture or malalignment. The soft tissues are unremarkable. IMPRESSION: NO ACUTE PROCESS.
[2017-12-28 21:54] LABS: Appearance,Urine Cloudy (Clear); Bilirubin,Urine Negative (Negative); Blood,Urine Negative (Negative); Color,Urine Light Yellow; Glucose,Urine (UA) 4+ (Negative); Leukocyte Esterase,Urine Negative (Negative); Mucus,Urine Rare /hpf; Nitrite,Urine Negative (Negative); Protein,Urine Negative (Negative); RBC,Urine 2 /hpf (0-5); Specific Gravity,Urine 1.027 (1.001-1.035); Squamous Epithelial Cell,Urine 14 /hpf (0-4); Urobilinogen,Urine <2.0 mg/dL (<2.0); WBC,Urine 3 /hpf (0-5)
[2017-12-28 22:04] LABS: Amphetamine Screen,Urine Not Detected (NotDetected); Barbiturate Screen,Urine Not Detected (NotDetected); Benzodiazepines Screen,Urine Not Detected (NotDetected); Cocaine Screen,Urine Not Detected (NotDetected); Methadone Screen, Urine Not Detected (NotDetected); Opiate Screen,Urine Not Detected (NotDetected); Oxycodone Screen, Urine Not Detected (NotDetected); Phencyclidine Screen,Urine Not Detected (NotDetected); Tricyclic Antidepressant,Urine Not Detected (NotDetected); Urn Cannabinoid Scrn Not Detected (NotDetected)
[2017-12-28 22:05] LABS: Ketones,Urine 2+ (Negative)
[2017-12-28] MEDS ORDERED: LORazepam 2 MG/ML INJ IV STA (22:58)
[2017-12-28] MEDS ORDERED: NALOXONE 0.4 MG/ML 1 ML VIAL IV PRN (23:08)
[2017-12-28] MEDS ORDERED: ALPRAZolam 0.25 MG TAB PO PRN (23:09)
[2017-12-29] MEDS: SODIUM CHLORIDE 0.9% 1,000 ML IV SCH ×4 (01:54→15:53)
[2017-12-29] MEDS: IBUPROFEN 400 MG TAB PO PRN (04:00)
[2017-12-29 06:20] LABS: Basophils % (A) 0 %; Eosinophils % (A) 1 %; HGB 11.8 gm/dL (11.4-16.0); Lymphocytes # (A) 1.6 k/uL (1.0-4.8); Lymphocytes % (A) 32 %; MCH 29.7 pg (25.0-35.0); MCHC 33.8 g/dL (31.0-37.0); MCV 88.1 fL (80.0-100.0); Monocytes # (A) 0.3 k/uL (0-1.0); Monocytes % (A) 5 %; Neutrophils # (A) 3.1 k/uL (1.3-7.7); Neutrophils % (A) 61 %; Platelet Count 210 k/uL (150-450); RBC 3.98 m/uL (3.80-5.40); RDW 12.1 % (11.5-15.5); WBC 5.2 k/uL (3.8-10.6)
[2017-12-29 06:44] LABS: Glucose,Whole Blood 159 mg/dL (75-99)
[2017-12-29 06:46] LABS: ALT 25 U/L (9-52); AST 10 U/L (14-36); Albumin 3.1 g/dL (3.5-5.0); Alkaline Phosphatase 49 U/L (38-126); Anion Gap 12 mmol/L; Blood Urea Nitrogen 14 mg/dL (7-17); Calcium 8.2 mg/dL (8.4-10.2); Carbon Dioxide 18 mmol/L (22-30); Chloride 107 mmol/L (98-107); Glucose 162 mg/dL (74-99); Magnesium 1.5 mg/dL (1.6-2.3); Potassium 3.9 mmol/L (3.5-5.1); Sodium 137 mmol/L (137-145); Total Bilirubin 2.3 mg/dL (0.2-1.3); Total Protein 5.7 g/dL (6.3-8.2)
[2017-12-29] MEDS: INSULIN ASPART 100 UNIT/ML 1 ML 10 ML VIAL SQ SCH ×3 (06:48→18:39)
[2017-12-29] MEDS: INSULIN DETEMIR 100 UNIT/ML 10 ML VIAL SQ SCH (08:55)
[2017-12-29] MEDS: PREGABALIN 50 MG CAP PO SCH ×2 (08:55→21:43)
[2017-12-29] MEDS: AMITRIPTYLINE HCL 10 MG TAB PO SCH (08:55)
--- NOTE | 2017-12-29 13:44 | P.HPIM ---
History of Present Illness This is a 32 years old female with past medical history of diabetes mellitus, on penicillin, diabetic neuropathy, chronic back pain, migraines, endometriosis , left ovarian cyst, chronic constipation, history of DKA,. Patient presents with syncope. Patient complains from lightheadedness for 3 months duration PSAs from 1 hour and a half to hold day. Yesterday she was trying to hold on while walking and then she let it go And she passed out yanet find herself on the floor she but cannot remember how long she was there. But when she woke up she has pain in her right shoulder right wrist. Patient also complaining of from headache and blurred vision, the headache is frontal nonradiating throbbing in character for about 3 weeks, 9/10 in severity and she had sustained double vision for 1-2 days. Also patient complaining of from chronic lower abdominal pain. mostly due to ovarian cysts that she follow up with Dr. Murdock from [employer] [facility] last time saw her was about 1 week ago she was follow-uping up with her director of consumer marketing to do shots for her endometriosis which might contribute to her abdominal pain. Patient states she is diabetic and she was adherent to the treatment of long-acting insulin and short-acting insulin. In the emergency room, chest x-ray which shows no acute process. CT of the head and cervical spine: No acute fracture no acute hemorrhage. Right shoulder and wrist x-ray: No fracture. In the emergency room patient got 3 L of IV fluids. Toradol and Ativan treatment. Labs shows an unremarkable CBC, CMP except for elevated total bilirubin at 2.3, magnesium 1.5. Patient complains from dehydration Patient states she has tubal ligation. I offered to test for her patient declined. Risks benefits and alternatives are explained Review of Systems CONSTITUTIONAL: No fever, no malaise, no fatigue. HEENT: No recent visual problems or hearing problems. Denied any sore throat. CARDIOVASCULAR: No orthopnea, PND, no palpitations, no syncope. PULMONARY: No shortness of breath, no cough, no hemoptysis. GASTROINTESTINAL: No diarrhea, no nausea, no vomiting, no abdominal pain. Normoactive bowel sounds. NEUROLOGICAL: No headaches, no weakness, no numbness. HEMATOLOGICAL: Denies any bleeding or petechiae. GENITOURINARY: Denies any burning micturition, frequency, or urgency. MUSCULOSKELETAL/RHEUMATOLOGICAL: Denies any joint pain, swelling, or any muscle pain. ENDOCRINE: Denies any polyuria or polydipsia. Past Medical History Past Medical History: Diabetes Mellitus Additional Past Medical History / Comment(s): IDDM type I (pt states she will soon be placed on insulin pump), DKA, neuropathy/ chronic pain, back pain, migraines, endometriosis, L ovarian cyst, chronic consitpation. History of Any Multi-Drug Resistant Organisms: None Reported Past Surgical History: Tubal Ligation, Uterine Ablation Additional Past Surgical History / Comment(s): 12/22/17 colonoscopy-normal, LAPAROSCOPIC REMOVAL TUBE AND OVARY-Right. D&C, HYSTEROSCOPY, NOVASURE ABLATION 2016. 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 Smoking Status: Never smoker - Past Family History Mother Family Medical History: Rheumatoid Arthritis (RA) Additional Family Medical History / Comment(s): Mother is 62 yrs old. Father Family Medical History: Cancer, Diabetes Mellitus, Deep Vein Thrombosis (DVT), Hypertension Additional Family Medical History / Comment(s): THROAT CA- of but pt does not know at what age. Medications and Allergies Home Medications Medication Instructions Recorded Confirmed Type Insulin Glargine,Hum.rec.anlog 24 units SQ DAILY 10/18/17 12/28/17 History [Touaaron Solostar] ALPRAZolam [Xanax] 0.25 mg PO DAILY PRN 10/21/17 12/28/17 History Escitalopram [Lexapro] 10 mg PO DAILY PRN 10/21/17 12/28/17 History INSULIN LISPRO (HumaLOG) [HumaLOG] See Protocol SQ AC-TID PRN 10/21/17 12/28/17 History INSULIN LISPRO (humaLOG) [humaLOG] 8 units SQ AC-TID 10/21/17 12/28/17 History Pregabalin [Lyrica] 50 mg PO BID 12/20/17 12/28/17 History Amitriptyline HCl [Elavil] 10 mg PO HS 12/28/17 12/28/17 History Allergies Allergy/AdvReac Type Severity Reaction Status Date / Time No Known Allergies Allergy Verified 12/28/17 18:02 Physical Exam Vitals: Vital Signs Temp Pulse Resp BP Pulse Ox 12/29/17 08:57 98.8 F 118 H 16 124/74 95 12/29/17 06:33 120 H 16 123/79 98 12/29/17 04:01 98.9 F 115 H 18 143/89 98 12/29/17 01:55 17 12/29/17 01:05 97.7 F 115 H 16 123/72 97 12/28/17 23:43 106 H 16 12/28/17 21:40 115 H 16 146/95 100 12/28/17 20:29 16 12/28/17 18:58 117 H 18 127/80 97 12/28/17 17:53 98.2 F 146 H 18 121/80 98 Intake and Output 12/28/17 12/29/17 12/29/17 22:59 06:59 14:59 Other: Weight 47.174 kg GENERAL: The patient is alert and oriented x3, not in any acute distress. Well developed, well nourished. -HEENT: Pupils are round and equally reacting to light. EOMI. No scleral icterus. No conjunctival pallor. Normocephalic, atraumatic. No pharyngeal erythema. No thyromegaly. Dry mucous membranes CARDIOVASCULAR: S1 and S2 present. No murmurs, rubs, or gallops. PULMONARY: Chest is clear to auscultation, no wheezing or crackles. ABDOMEN: Soft, nontender, nondistended, normoactive bowel sounds. No palpable organomegaly. MUSCULOSKELETAL: No joint swelling or deformity. EXTREMITIES: No cyanosis, clubbing, or pedal edema. NEUROLOGICAL: Gross neurological examination did not reveal any focal deficits. SKIN: No rashes. Results CBC & Chem 7: 12/29/17 05:47 12/29/17 05:47 Labs: Abnormal Lab Results - Last 24 Hours (Table) 12/28/17 12/28/17 12/28/17 Range/Units 17:50 17:50 21:41 APTT 20.3 L (22.0-30.0) sec Carbon Dioxide (22-30) mmol/L Creatinine 0.40 L (0.52-1.04) mg/dL Glucose 104 H (74-99) mg/dL POC Glucose (mg/dL) (75-99) mg/dL Calcium (8.4-10.2) mg/dL Magnesium (1.6-2.3) mg/dL Total Bilirubin 2.3 H (0.2-1.3) mg/dL AST (14-36) U/L Total Protein (6.3-8.2) g/dL Albumin (3.5-5.0) g/dL Urine Appearance Cloudy H (Clear) Urine Glucose (UA) 4+ H (Negative) Urine Ketones 2+ H (Negative) Ur Squamous Epith Cells 14 H (0-4) /hpf Urine Mucus Rare H (None) /hpf 12/29/17 12/29/17 Range/Units 05:47 06:26 APTT (22.0-30.0) sec Carbon Dioxide 18 L (22-30) mmol/L Creatinine 0.30 L (0.52-1.04) mg/dL Glucose 162 H (74-99) mg/dL POC Glucose (mg/dL) 159 H (75-99) mg/dL Calcium 8.2 L (8.4-10.2) mg/dL Magnesium 1.5 L (1.6-2.3) mg/dL Total Bilirubin 2.3 H (0.2-1.3) mg/dL AST 10 L (14-36) U/L Total Protein 5.7 L (6.3-8.2) g/dL Albumin 3.1 L (3.5-5.0) g/dL Urine Appearance (Clear) Urine Glucose (UA) (Negative) Urine Ketones (Negative) Ur Squamous Epith Cells (0-4) /hpf Urine Mucus (None) /hpf Thrombosis Risk Factor Assmnt - Choose All That Apply Any of the Below Risk Factors Present?: No Other Risk Factors: No Other congenital or acquired thrombophilia - If yes, enter type in comment: No Thrombosis Risk Factor Assessment Level: Very Low Risk Assessment and Plan Assessment: Syncope Dehydration Hyperglycemia with history of diabetes mellitus diabetic neuropathy chronic back pain migraines endometriosis left ovarian cyst chronic constipation Plan: This is a pleasant 32 years old female, presents with syncope and dehydration. Continue same treatment. Continue symptomatic treatment. Resume home medication. Monitor vitals and labs. Call cardiology neurology consult. Continue with IV fluids GI and DVT prophylaxis. Further recommendations based on the clinical course of the patient DVT prophylaxis subcutaneous heparin GI prophylaxis Pepcid PT/OT pending prognosis is guarded
[2017-12-29 15:39] VITALS: BMI 20.9
[2017-12-29] MEDS: ACETAMINOPHEN TAB 325 MG TAB PO PRN (15:52)
[2017-12-29] MEDS ORDERED: Magnesium Replacement Protocol 1 EACH MISC MISCELLANE PRN ×2 (15:55→19:56)
[2017-12-29 16:41] LABS: Glucose,Whole Blood 242 mg/dL (75-99)
[2017-12-29 17:15] LABS: Glucose,Whole Blood 100 mg/dL (75-99)
[2017-12-29 20:29] LABS: Glucose,Whole Blood 176 mg/dL (75-99)
[2017-12-29] MEDS: MORPHINE SULFATE 2 MG/ML SYRINGE IVP PRN (20:54)
[2017-12-29] MEDS: MAGNESIUM SULFATE-D5W PMX 1 GM in DEXTROSE/WATER 1 100ML.BAG IVPB SCH (20:54)
[2017-12-29] MEDS: FAMOTIDINE 20 MG/2 ML VIAL IV SCH (21:42)
[2017-12-29] MEDS: HEPARIN SODIUM,PORCINE 5,000 UNIT/ML 1 ML VIAL SQ SCH (21:43)
[2017-12-30 01:05] LABS: Hemoglobin A1C 10.7 % (4.0-6.0)
[2017-12-30] MEDS: MAGNESIUM SULFATE-D5W PMX 1 GM in DEXTROSE/WATER 1 100ML.BAG IVPB SCH (01:23)
[2017-12-30] MEDS: MORPHINE SULFATE 2 MG/ML SYRINGE IVP PRN ×3 (01:23→10:56)
[2017-12-30 06:12] LABS: Basophils % (A) 0 %; Eosinophils # (A) 0.1 k/uL (0-0.7); Eosinophils % (A) 1 %; HCT 33.7 % (34.0-46.0); HGB 11.3 gm/dL (11.4-16.0); Lymphocytes # (A) 1.8 k/uL (1.0-4.8); Lymphocytes % (A) 46 %; MCH 29.6 pg (25.0-35.0); MCHC 33.5 g/dL (31.0-37.0); MCV 88.4 fL (80.0-100.0); Mean Platelet Volume 7.9; Monocytes # (A) 0.3 k/uL (0-1.0); Monocytes % (A) 7 %; Neutrophils # (A) 1.7 k/uL (1.3-7.7); Neutrophils % (A) 43 %; Platelet Count 217 k/uL (150-450); RBC 3.81 m/uL (3.80-5.40); WBC 3.9 k/uL (3.8-10.6)
[2017-12-30 06:18] LABS: Anion Gap 4 mmol/L; Blood Urea Nitrogen 6 mg/dL (7-17); Carbon Dioxide 25 mmol/L (22-30); Chloride 108 mmol/L (98-107); Glucose 228 mg/dL (74-99); Magnesium 2.1 mg/dL (1.6-2.3); Potassium 3.9 mmol/L (3.5-5.1); Sodium 137 mmol/L (137-145)
[2017-12-30 06:53] LABS: Glucose,Whole Blood 203 mg/dL (75-99)
[2017-12-30] MEDS: HEPARIN SODIUM,PORCINE 5,000 UNIT/ML 1 ML VIAL SQ SCH ×2 (10:16→20:02)
[2017-12-30] MEDS: INSULIN DETEMIR 100 UNIT/ML 10 ML VIAL SQ SCH (10:16)
[2017-12-30] MEDS: FAMOTIDINE 20 MG/2 ML VIAL IV SCH ×2 (10:17→20:01)
[2017-12-30] MEDS: INSULIN ASPART 100 UNIT/ML 1 ML 10 ML VIAL SQ SCH ×3 (10:17→17:37)
[2017-12-30] MEDS: PREGABALIN 50 MG CAP PO SCH ×2 (12:02→20:01)
[2017-12-30 12:09] LABS: Glucose,Whole Blood 195 mg/dL (75-99)
[2017-12-30] MEDS ORDERED: SODIUM CHLORIDE 0.9% 500 ML IV ONE (12:12)
[2017-12-30] MEDS: SODIUM CHLORIDE 0.9% 1,000 ML IV SCH (12:27)
--- NOTE | 2017-12-30 12:43 | ECHOF ---
Referral Reason:syncope MEASUREMENTS -------- HEIGHT: 152.4 cm WEIGHT: 50.3 kg BP: 137/84 RVIDd: 2.4 cm (< 3.3) IVSd: 0.9 cm (0.6 - 1.1) LVIDd: 3.9 cm (3.9 - 5.3) LVPWd: 0.8 cm (0.6 - 1.1) IVSs: 1.2 cm LVIDs: 2.4 cm LVPWs: 1.4 cm LA Diam: 2.8 cm (2.7 - 3.8) LAESV Index (A-L): 28.01 ml/m Ao Diam: 2.2 cm (2.0 - 3.7) AV Cusp: 1.6 cm (1.5 - 2.6) LA Diam: 3.7 cm (2.7 - 3.8) MV EXCURSION: 16.095 mm (> 18.000) MV EF SLOPE: 91 mm/s (70 - 150) EPSS: 0.2 cm MV E Lázaro: 0.83 m/s MV DecT: 190 ms MV A Lázaro: 0.60 m/s MV E/A Ratio: 1.37 RAP: 5.00 mmHg RVSP: 15.77 mmHg FINDINGS -------- Sinus rhythm. This was a technically adequate study. LV size, wall thickness and systolic function are normal, with an EF greater than 55%. The left randall tricular size is normal. The right ventricle is normal in size. The left atrial size is normal. Normal LA size by volume 22+/-6 ml/m2. The right atrial size is normal. The aortic valve is trileaflet, and appears structurally normal. No aortic stenosis or regurgitation. The mitral valve is normal. There is trace mitral regurgitation. Mild tricuspid regurgitation present. There is no evidence of pulmonary hypertension. The right v entricular systolic pressure, as measured by Doppler, is 15.77mmHg. Trace/mild (physiologic) pulmonic regurgitation. The aortic root size is normal. There is no pericardial effusion. CONCLUSIONS -------- 1. Sinus rhythm. 2. LV size, wall thickness and systolic function are normal, with an EF greater than 55%. 3. The left ventricular size is normal. 4. The left atrial size is normal. 5. The aortic valve is trileaflet, and appears structurally normal. No aortic stenosis or regurgitati on. 6. There is trace mitral regurgitation. 7. There is no evidence of pulmonary hypertension. 8. The aortic root size is normal. 9. There is no pericardial effusion. [employer]: Rosana Padron RDCS
--- NOTE | 2017-12-30 14:14 | P.CRDCN ---
History of Present Illness History of present illness: Mrs. Cutler is a pleasant 32-year-old male past medical history significant for type 1 diabetes mellitus, diabetic neuropathy and anxiety. She denies history of coronary artery disease, hypertension or dyslipidemia. We have been asked to see her in consultation for dizziness and syncope. Patient states yesterday she stood up to go into the kitchen and makes her kids tender and she felt acutely lightheaded. She states this is normal for her to feel lightheaded at times she grabbed onto the car to balance herself. She thought she had her balance and tried to take a step but she fell down hitting the right side of her body and the back of her head. She states she lost consciousness. Unknown how long she was unconscious for. She denies symptoms of chest pain, shortness of breath, nausea, vomiting or diaphoresis associated with this. She states she did feel so her heart was racing fast. She suffers with this very frequently over the last few months. She started a new medication per Dr. Ferraro the day prior to this for diabetic neuropathy. EKG reveals sinus tachycardia heart rate 143. No acute ST or T-wave abnormalities noted. Chest xray negative for an acute cardiopulmonary process. Laboratory data reviewed hgb 11.3, plt 217, d-dimer 0.23, sodium 137, potassium 3.9, creatinine 0.3, TSH 0.93. She takes no daily cardiac medications. Review of Systems At the time of my exam: CONSTITUTIONAL: Denies fever. Denies chills. EYES: Denies blurred vision. Denies vision changes. Denies eye pain. EARS, NOSE, MOUTH & THROAT: Denies headache. Denies sore throat. Denies ear pain. CARDIOVASCULAR: Denies chest pain. Denies shortness of breath. Denies orthopnea. Denies PND. Denies palpitations. RESPIRATORY: Denies cough. GASTROINTESTINAL: Denies abdominal pain. Denies diarrhea. Denies constipation. Denies nausea. Denies vomiting. MUSCULOSKELETAL: Denies myalgias. INTEGUMENTARY: Denies pruitis. Denies rash. NEUROLOGIC: Denies numbness. Denies tingling. Denies weakness. PSYCHIATRIC: Denies anxiety. Denies depression. ENDOCRINE: Denies fatigue. Denies weight change. Denies polydipsia. Denies polyurina. GENITOURINARY: Denies burning, hematuria or urgency with micturation. HEMATOLOGIC: Denies history of anemia. Denies bleeding. Past Medical History Past Medical History: Diabetes Mellitus Additional Past Medical History / Comment(s): IDDM type I (pt states she will soon be placed on insulin pump), DKA, neuropathy/ chronic pain, back pain, migraines, endometriosis, L ovarian cyst, chronic consitpation. History of Any Multi-Drug Resistant Organisms: None Reported Past Surgical History: Tubal Ligation, Uterine Ablation Additional Past Surgical History / Comment(s): 12/22/17 colonoscopy-normal, LAPAROSCOPIC REMOVAL TUBE AND OVARY-Right. D&C, HYSTEROSCOPY, NOVASURE ABLATION 2016. 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 Smoking Status: Never smoker - Past Family History Mother Family Medical History: Rheumatoid Arthritis (RA) Additional Family Medical History / Comment(s): Mother is 62 yrs old. Father Family Medical History: Cancer, Diabetes Mellitus, Deep Vein Thrombosis (DVT), Hypertension Additional Family Medical History / Comment(s): THROAT CA- of but pt does not know at what age. Medications and Allergies Home Medications Medication Instructions Recorded Confirmed Type Insulin Glargine,Hum.rec.anlog 24 units SQ DAILY 10/18/17 12/28/17 History [Tojohn Solostar] ALPRAZolam [Xanax] 0.25 mg PO DAILY PRN 10/21/17 12/28/17 History Escitalopram [Lexapro] 10 mg PO DAILY PRN 10/21/17 12/28/17 History INSULIN LISPRO (HumaLOG) [HumaLOG] See Protocol SQ AC-TID PRN 10/21/17 12/28/17 History INSULIN LISPRO (humaLOG) [humaLOG] 8 units SQ AC-TID 10/21/17 12/28/17 History Pregabalin [Lyrica] 50 mg PO BID 12/20/17 12/28/17 History Amitriptyline HCl [Elavil] 10 mg PO HS 12/28/17 12/28/17 History Allergies Allergy/AdvReac Type Severity Reaction Status Date / Time No Known Allergies Allergy Verified 12/28/17 18:02 Physical Exam Vitals: Vital Signs Temp Pulse Pulse Pulse Pulse Pulse Resp 12/30/17 07:15 97.8 F 102 H 16 12/30/17 04:00 96 16 12/30/17 00:00 98.5 F 95 16 12/29/17 20:00 103 H 16 12/29/17 19:52 98.8 F 107 H 16 12/29/17 15:00 120 H 150 H 115 H 12/29/17 14:32 99.0 F 116 H 18 12/29/17 14:30 98.6 F 120 H 150 H 115 H 18 12/29/17 08:57 98.8 F 118 H 16 BP BP BP BP BP Pulse Ox 12/30/17 07:15 131/84 99 12/30/17 04:00 12/30/17 00:00 126/79 97 12/29/17 20:00 12/29/17 19:52 130/86 97 12/29/17 15:00 12/29/17 14:32 120/84 98 12/29/17 14:30 121/80 109/75 127/83 100 12/29/17 08:57 124/74 95 Intake and Output 12/29/17 12/30/17 12/30/17 22:59 06:59 14:59 Intake Total 400 Balance 400 Intake: Oral 400 Other: Voiding Method Toilet Toilet # Voids 1 Weight 50.4 kg 50.4 kg Blood pressure 126/83 heart rate 107 afebrile maintaining oxygen saturation on room air GENERAL: This is a 32-year-old female in no apparent distress at the time of my examination. HEENT: Head is atraumatic, normocephalic. Pupils are equal, round. Sclerae anicteric. Conjunctivae are clear. Mucous membranes of the mouth are moist. Neck is supple. There is no jugular venous distention. No carotid bruit is heard. LUNGS: Clear to auscultation no wheezes, rales or rhonchi. No chest wall tenderness is noted on palpation or with deep breathing. HEART: Regular rate and rhythm with murmur at left sternal border, no rubs or gallops. S1 and S2 heard. ABDOMEN: Soft, nontender. Bowel sounds are heard. No organomegaly noted. EXTREMITIES: No evidence of peripheral edema and no calf tenderness noted. VASCULAR: Radial and dorsalis pedis pulses palpated, no evidence of clubbing. NEUROLOGIC: Patient is awake, alert and oriented x3. Results 12/30/17 05:45 12/30/17 05:45 CBC 12/30/17 Range/Units 05:45 WBC 3.9 (3.8-10.6) k/uL RBC 3.81 (3.80-5.40) m/uL Hgb 11.3 L (11.4-16.0) gm/dL Hct 33.7 L (34.0-46.0) % Plt Count 217 (150-450) k/uL Comprehensive Metabolic Panel 12/30/17 Range/Units 05:45 Sodium 137 (137-145) mmol/L Potassium 3.9 (3.5-5.1) mmol/L Chloride 108 H (98-107) mmol/L Carbon Dioxide 25 (22-30) mmol/L BUN 6 L (7-17) mg/dL Creatinine 0.30 L (0.52-1.04) mg/dL Glucose 228 H (74-99) mg/dL Calcium 8.0 L (8.4-10.2) mg/dL Current Medications Generic Name Dose Route Start Last Admin Trade Name Freq PRN Reason Stop Dose Admin Acetaminophen 650 mg 12/28/17 23:08 12/29/17 15:52 Tylenol Tab PO 650 mg Q6HR PRN Administration Mild Pain or Fever > 100.5 Alprazolam 0.25 mg 12/28/17 23:09 12/29/17 21:43 Xanax PO 0.25 mg DAILY PRN Administration Anxiety Amitriptyline HCl 10 mg 12/29/17 21:00 12/29/17 08:55 Elavil PO 10 mg HS SILVER Administration Famotidine 20 mg 12/29/17 21:00 12/29/17 21:42 Pepcid IV 20 mg Q12HR SILVER Administration Heparin Sodium (Porcine) 5,000 unit 12/29/17 21:00 12/29/17 21:43 Heparin SQ 5,000 unit Q12HR SILVER Administration Sodium Chloride 1,000 mls @ 125 mls/hr 12/28/17 23:15 12/29/17 15:53 Saline 0.9% IV Not Given .Q8H SILVER Sodium Chloride 1,000 mls @ 100 mls/hr 12/29/17 13:45 12/29/17 15:53 Saline 0.9% IV Not Given .Q10H SILVER Ibuprofen 400 mg 12/28/17 23:08 12/29/17 04:00 Motrin PO 400 mg Q6HR PRN Administration Mild Pain or Fever > 100.5 Insulin Aspart 8 unit 12/29/17 07:30 12/29/17 18:39 Novolog SQ Not Given AC-TID SILVER Insulin Detemir 24 unit 12/29/17 09:00 12/29/17 08:55 Levemir SQ 24 unit DAILY SILVER Administration Miscellaneous Information 1 each 12/29/17 15:55 Magnesium Per Protocol MISCELLANE DAILY PRN Per Protocol Protocol Miscellaneous Information 1 each 12/29/17 19:56 Magnesium Per Protocol MISCELLANE DAILY PRN Per Protocol Protocol Morphine Sulfate 2 mg 12/29/17 20:24 12/30/17 06:37 Morphine Sulfate (Inj) IVP 2 mg Q4HR PRN Administration Pain Naloxone HCl 0.2 mg 12/28/17 23:08 Narcan IV Q2M PRN Opioid Reversal Pregabalin 50 mg 12/29/17 09:00 12/29/17 21:43 Lyrica PO 50 mg BID SILVER Administration Intake and Output 12/29/17 12/30/17 12/30/17 22:59 06:59 14:59 Intake Total 400 Balance 400 Intake: Oral 400 Other: Voiding Method Toilet Toilet # Voids 1 Weight 50.4 kg 50.4 kg 12/30/17 05:45 12/30/17 05:45 Assessment and Plan Assessment: ASSESSMENT Syncope, probably orthostatic related to dehydration Diabetes mellitus type 1 Dehydration PLAN Obtain 2D echocardiogram to assess cardiac structure and function. Obtain orthostatic blood pressures. Ongoing medical management of dehydration. Follow up with Dr. Alexis in 2-3 weeks for outpatient follow up on murmur. Thank you kindly for this consultation. Nurse Practitioner note has been reviewed, I agree with a documented findings and plan of care. Patient was seen and examined.
[2017-12-30 14:15] VITALS: RESP 16
--- NOTE | 2017-12-30 15:28 | US ---
EXAMINATION TYPE: US carotid duplex BILAT DATE OF EXAM: 12/30/2017 COMPARISON: NONE CLINICAL HISTORY: syncope. Pt states syncope with collapse EXAM MEASUREMENTS: RIGHT: Peak Systolic Velocity (PSV) cm/sec ----- Right CCA: 86.7 ----- Right ICA: 99.5 ----- Right ECA: 99.5 ICA/CCA ratio: 1.1 RIGHT: End Diastole cm/sec ----- Right CCA: 38.4 ----- Right ICA: 34.8 ----- Right ECA: 21.9 LEFT: Peak Systolic Velocity (PSV) cm/sec ----- Left CCA: 72.4 ----- Left ICA: 104.7 ----- Left ECA: 103.4 ICA/CCA ratio: 1.4 LEFT: End Diastole cm/sec ----- Left CCA: 30.7 ----- Left ICA: 46.5 ----- Left ECA: 21.9 VERTEBRALS (direction of flow): Right Vertebral: Antegrade Left Vertebral: Antegrade Rhythm: Normal No significant stenosis seen IMPRESSION: 1. Mild intimal thickening without significant flow-limiting stenosis Criteria for Assigning % of Stenosis / Diameter reduction (Estimation based on the indirect measurements of the internal carotid artery velocities (ICA PSV). 1. Normal (no stenosis)=ICA PSV < 125 cm/s: ratio < 2.0: ICA EDV<40 cm/s. 2. Less than 50% stenosis=ICA PSV < 125 cm/s: ratio < 2.0: ICA EDV<40 cm/s. 3. 50 to 69% stenosis=ICA PSV of 125 to 230 cm/s: ration 2.0 ? 4.0: ICA EDV 40-100 cm/s. 4. Greater than 70% stenosis to near occlusion= ICA PSV > 230 cm/s: ratio > 4.0: ICA EDV > 100 cm/s. 5. Near occlusion= ICA PSV velocities may be low or undetectable: variable ratio and ICA EDV. 6. Total occlusion=unable to detect flow.
[2017-12-30] MEDS: IBUPROFEN 400 MG TAB PO PRN (17:35)
[2017-12-30 17:38] LABS: Glucose,Whole Blood 197 mg/dL (75-99)
[2017-12-30] MEDS: ACETAMINOPHEN TAB 325 MG TAB PO PRN (19:03)
[2017-12-30] MEDS: MORPHINE ORAL SOLN 10 MG/5 ML CUP PO PRN (20:00)
[2017-12-30] MEDS: AMITRIPTYLINE HCL 10 MG TAB PO SCH (20:08)
[2017-12-30 21:48] LABS: Glucose,Whole Blood 144 mg/dL (75-99)
--- NOTE | 2017-12-30 22:08 | P.CNNES ---
History of Present Illness Consult date: 12/30/17 Requesting physician: Eddie E Sheet Reason for Consult: syncope Chief complaint: Altered mental status History of Present Illness: Neurology is consulting on a 32-year-old female with a past medical history of type 1 diabetes, diabetic neuropathy, anxiety and previous history of syncopal episode. Patient does not have any history of coronary artery disease hypertension or dyslipidemia. Neurology is consulting for altered mental status /syncope. Patient was at home change positions including standing up from a seated position, felt lightheaded, grabbed on to the motor vehicle to steady herself. Patient thought that she was safe to proceed, took a step to ambulate , fell down and believes she struck the back of her head on pavement or hard ground. Patient believes she lost consciousness but it was unclear for how long. Patient's minor child contacted 911 on her behalf. Patient did report an abnormal sensation in her chest consistent with racing heart sensation. Patient does have an intermittent but persistent history of similar type episodes over the last several months. Patient does treat with Dr. Ferraro and was recently started on amitriptyline for both headache and neuropathy. It was noted that the patient did have tachycardia intermittently on EKG. On contact, the patient is alert and oriented 3, resting in bed in no acute distress. Patient did confirm that these occurrences previous to this event where she lost consciousness could happen up to 3 times a day but were less intense and did not encompass loss of consciousness. Review of Systems systems not noted in HPI our negative Past Medical History Past Medical History: Diabetes Mellitus Additional Past Medical History / Comment(s): IDDM type I (pt states she will soon be placed on insulin pump), DKA, neuropathy/ chronic pain, back pain, migraines, endometriosis, L ovarian cyst, chronic consitpation. History of Any Multi-Drug Resistant Organisms: None Reported Past Surgical History: Tubal Ligation, Uterine Ablation Additional Past Surgical History / Comment(s): 12/22/17 colonoscopy-normal, LAPAROSCOPIC REMOVAL TUBE AND OVARY-Right. D&C, HYSTEROSCOPY, NOVASURE ABLATION 2016. 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 Smoking Status: Never smoker - Past Family History Mother Family Medical History: Rheumatoid Arthritis (RA) Additional Family Medical History / Comment(s): Mother is 62 yrs old. Father Family Medical History: Cancer, Diabetes Mellitus, Deep Vein Thrombosis (DVT), Hypertension Additional Family Medical History / Comment(s): THROAT CA- of but pt does not know at what age. Medications and Allergies Home Medications Medication Instructions Recorded Confirmed Type Insulin Glargine,Hum.rec.anlog 24 units SQ DAILY 10/18/17 12/28/17 History [Toujeo Solostar] ALPRAZolam [Xanax] 0.25 mg PO DAILY PRN 10/21/17 12/28/17 History Escitalopram [Lexapro] 10 mg PO DAILY PRN 10/21/17 12/28/17 History INSULIN LISPRO (HumaLOG) [HumaLOG] See Protocol SQ AC-TID PRN 10/21/17 12/28/17 History INSULIN LISPRO (humaLOG) [humaLOG] 8 units SQ AC-TID 10/21/17 12/28/17 History Pregabalin [Lyrica] 50 mg PO BID 12/20/17 12/28/17 History Amitriptyline HCl [Elavil] 10 mg PO HS 12/28/17 12/28/17 History Allergies Allergy/AdvReac Type Severity Reaction Status Date / Time No Known Allergies Allergy Verified 12/28/17 18:02 Physical Examination - Vital Signs Vital Signs: Vital Signs Temp Pulse Pulse Pulse Pulse Resp BP 12/30/17 19:45 98.7 F 115 H 16 12/30/17 14:13 97.8 F 113 H 125 H 111 H 16 137/88 12/30/17 11:48 98.1 F 107 H 18 12/30/17 07:15 97.8 F 102 H 16 12/30/17 04:00 96 16 12/30/17 00:00 98.5 F 95 16 BP BP BP Pulse Ox 12/30/17 19:45 155/64 99 12/30/17 14:13 124/85 134/90 98 12/30/17 11:48 126/83 99 12/30/17 07:15 131/84 99 12/30/17 04:00 12/30/17 00:00 126/79 97 Intake and Output 12/30/17 12/30/17 12/30/17 06:59 14:59 22:59 Intake Total 420 700 Balance 420 700 Intake: Oral 420 400 Other 300 Other: Voiding Method Toilet # Voids 1 Weight 50.4 kg 50.4 kg General appearance: Alert & oriented x3, no apparent distress. Head: Atraumatic, normocephalic, normal inspection Eyes: Well appearance, PERRLA, EOMI. Absent scleral icterus, conjunctival injection, nystagmus, periorbital swelling. Ear, nose and throat: Normal exam, mucous membranes moist Neck: Normal inspection, absent tenderness, lymphadenopathy. Respiratory: No increased work of breathing Cardiovascular: intermittent tachycardia GI/abdominal: No guarding Extremities: Full range of motion, normal capillary refill, no tenderness, pedal edema joint swelling, calf tenderness. Neurological: cranial nerves II through XII intact no lateralizing weakness no seizure activity noted on physical exam no pronator drift and no nystagmus. Left lower extremity: 5/5 Right lower extremity: 5/5 Left upper extremity: 5/5 Right upper extremity:5 /5 Sensation: Left lower extremity: normal Right lower extremity: normal Left upper extremity: normal Right upper extremity:normal Psychological: Mood and Affect appropriate for setting Results - Laboratory Findings CBC and BMP: 12/30/17 05:45 12/30/17 05:45 Abnormal Lab Findings: Abnormal Labs 12/28/17 12/28/17 12/28/17 17:50 17:50 21:41 Hgb Hct APTT 20.3 L Chloride Carbon Dioxide BUN Creatinine 0.40 L Glucose 104 H POC Glucose (mg/dL) Hemoglobin A1c Calcium Magnesium Total Bilirubin 2.3 H AST Total Protein Albumin Urine Appearance Cloudy H Urine Glucose (UA) 4+ H Urine Ketones 2+ H Ur Squamous Epith Cells 14 H Urine Mucus Rare H 12/29/17 12/29/17 12/29/17 05:47 05:47 06:26 Hgb Hct APTT Chloride Carbon Dioxide 18 L BUN Creatinine 0.30 L Glucose 162 H POC Glucose (mg/dL) 159 H Hemoglobin A1c 10.7 H Calcium 8.2 L Magnesium 1.5 L Total Bilirubin 2.3 H AST 10 L Total Protein 5.7 L Albumin 3.1 L Urine Appearance Urine Glucose (UA) Urine Ketones Ur Squamous Epith Cells Urine Mucus 12/29/17 12/29/17 12/29/17 11:55 17:07 20:24 Hgb Hct APTT Chloride Carbon Dioxide BUN Creatinine Glucose POC Glucose (mg/dL) 242 H 100 H 176 H Hemoglobin A1c Calcium Magnesium Total Bilirubin AST Total Protein Albumin Urine Appearance Urine Glucose (UA) Urine Ketones Ur Squamous Epith Cells Urine Mucus 12/30/17 12/30/17 12/30/17 05:45 05:45 06:50 Hgb 11.3 L Hct 33.7 L APTT Chloride 108 H Carbon Dioxide BUN 6 L Creatinine 0.30 L Glucose 228 H POC Glucose (mg/dL) 203 H Hemoglobin A1c Calcium 8.0 L Magnesium Total Bilirubin AST Total Protein Albumin Urine Appearance Urine Glucose (UA) Urine Ketones Ur Squamous Epith Cells Urine Mucus 12/30/17 12/30/17 12/30/17 12:06 17:10 21:35 Hgb Hct APTT Chloride Carbon Dioxide BUN Creatinine Glucose POC Glucose (mg/dL) 195 H 197 H 144 H Hemoglobin A1c Calcium Magnesium Total Bilirubin AST Total Protein Albumin Urine Appearance Urine Glucose (UA) Urine Ketones Ur Squamous Epith Cells Urine Mucus Assessment and Plan (1) Altered mental status Current Visit: Yes Status: Acute Code(s): R41.82 - ALTERED MENTAL STATUS, UNSPECIFIED SNOMED Code(s): 379583483 (2) Dehydration Current Visit: Yes Status: Acute Code(s): E86.0 - DEHYDRATION SNOMED Code( s): 74224766 (3) Syncope due to orthostatic hypotension Current Visit: Yes Status: Acute Code(s): I95.1 - ORTHOSTATIC HYPOTENSION SNOMED Code(s): 924522945 Plan: Patient does appear to have experienced a syncopal episode. However after review of the patient's laboratory blood work, symptoms and further diagnostic workup, it does appear that the patient's condition is most likely cardiac in etiology consistent with orthostatic hypotension and dehydration. However, given the patient's long-term intermittent but persistent history, we will do a neurological workup to rule out any other underlying etiology or changed etiology which could account for patient's symptoms. Diagnostic workup to include: Carotid Doppler studyultrasound-guided EEG patient advised to keep a incident diary for further review in the outpatient setting in the office to attempt to identify any patterns which may be contributing to the patient's occurrence. If patient's carotid Doppler study is unremarkable/noncontributory and patient' s EEG has been taken and all remaining testing and workup has been completed by other members of the care team, patient can be cleared for discharge from a neurological standpoint. If patient is discharged, notify patient to follow-up with our office within 10- 14 days for follow-up office visit. I have discussed the plan of care with the physician prior to implementation and he agrees with the plan as implemented.
[2017-12-30] MEDS ORDERED: MELATONIN 5 MG TABLET PO SCH (23:15)
[2017-12-31] MEDS: MORPHINE ORAL SOLN 10 MG/5 ML CUP PO PRN ×3 (00:02→14:21)
[2017-12-31 06:48] LABS: Glucose,Whole Blood 217 mg/dL (75-99)
[2017-12-31 07:54] LABS: Basophils % (A) 0 %; Eosinophils # (A) 0.1 k/uL (0-0.7); Eosinophils % (A) 1 %; HCT 36.7 % (34.0-46.0); HGB 11.9 gm/dL (11.4-16.0); Lymphocytes # (A) 1.6 k/uL (1.0-4.8); Lymphocytes % (A) 43 %; MCHC 32.5 g/dL (31.0-37.0); MCV 89.1 fL (80.0-100.0); Mean Platelet Volume 7.6; Monocytes # (A) 0.2 k/uL (0-1.0); Monocytes % (A) 5 %; Neutrophils # (A) 1.9 k/uL (1.3-7.7); Neutrophils % (A) 49 %; Platelet Count 215 k/uL (150-450); RBC 4.11 m/uL (3.80-5.40); RDW 12.3 % (11.5-15.5); WBC 3.8 k/uL (3.8-10.6)
[2017-12-31 08:10] LABS: Anion Gap 6 mmol/L; Blood Urea Nitrogen 6 mg/dL (7-17); Calcium 8.5 mg/dL (8.4-10.2); Carbon Dioxide 26 mmol/L (22-30); Chloride 107 mmol/L (98-107); Glucose 189 mg/dL (74-99); Potassium 4.2 mmol/L (3.5-5.1); Sodium 139 mmol/L (137-145)
[2017-12-31] MEDS: SODIUM CHLORIDE 0.9% 1,000 ML IV SCH ×4 (08:11→09:24)
--- NOTE | 2017-12-31 09:11 | P.PN ---
Subjective This is a 32 years old female with past medical history of diabetes mellitus, on penicillin, diabetic neuropathy, chronic back pain, migraines, endometriosis , left ovarian cyst, chronic constipation, history of DKA,. Patient presents with syncope. Patient complains from lightheadedness for 3 months duration PSAs from 1 hour and a half to hold day. Yesterday she was trying to hold on while walking and then she let it go And she passed out yanet find herself on the floor she but cannot remember how long she was there. But when she woke up she has pain in her right shoulder right wrist. Patient also complaining of from headache and blurred vision, the headache is frontal nonradiating throbbing in character for about 3 weeks, 9/10 in severity and she had sustained double vision for 1-2 days. Also patient complaining of from chronic lower abdominal pain. mostly due to ovarian cysts that she follow up with Dr. Murdock from [facility] last time saw her was about 1 week ago she was follow-uping up with her beer runner to do shots for her endometriosis which might contribute to her abdominal pain. Patient states she is diabetic and she was adherent to the treatment of long-acting insulin and short-acting insulin. In the emergency room, chest x-ray which shows no acute process. CT of the head and cervical spine: No acute fracture no acute hemorrhage. Right shoulder and wrist x-ray: No fracture. In the emergency room patient got 3 L of IV fluids. Toradol and Ativan treatment. Labs shows an unremarkable CBC, CMP except for elevated total bilirubin at 2.3, magnesium 1.5. Patient complains from dehydration 12/31/2017 pt remains lethargic but improving , she is still dehydrated, and tackycardic , pt has been evaluated by cardiology and neurology evaluation is appreciated , pt most likely symptoms are from severe dehydration , continue with iv fluid and iv boluses are provided as well , pt clinically remains stable Objective - Vital Signs Vital signs: Vital Signs Temp 98.7 F 12/30/17 19:45 Pulse 115 H 12/30/17 19:45 Resp 16 12/30/17 19:45 BP 155/64 12/30/17 19:45 Pulse Ox 99 12/30/17 19:45 Intake & Output 12/30/17 12/30/17 12/31/17 06:59 18:59 06:59 Intake Total 1120 Balance 1120 Weight 50.4 kg 50.4 kg Intake: Oral 820 Other 300 Other: Voiding Method Toilet # Voids 1 - Exam GENERAL: The patient is alert and oriented x3, not in any acute distress. Well developed, well nourished. -HEENT: Pupils are round and equally reacting to light. EOMI. No scleral icterus. No conjunctival pallor. Normocephalic, atraumatic. No pharyngeal erythema. No thyromegaly. Dry mucous membranes CARDIOVASCULAR: S1 and S2 present. No murmurs, rubs, or gallops. PULMONARY: Chest is clear to auscultation, no wheezing or crackles. ABDOMEN: Soft, nontender, nondistended, normoactive bowel sounds. No palpable organomegaly. MUSCULOSKELETAL: No joint swelling or deformity. EXTREMITIES: No cyanosis, clubbing, or pedal edema. NEUROLOGICAL: Gross neurological examination did not reveal any focal deficits. SKIN: No rashes. - Labs CBC & Chem 7: 12/31/17 06:52 12/31/17 06:52 Labs: Abnormal Lab Results - Last 24 Hours (Table) 12/29/17 12/30/17 12/30/17 Range/Units 05:47 05:45 05:45 Hgb 11.3 L (11.4-16.0) gm/dL Hct 33.7 L (34.0-46.0) % Chloride 108 H (98-107) mmol/L BUN 6 L (7-17) mg/dL Creatinine 0.30 L (0.52-1.04) mg/dL Glucose 228 H (74-99) mg/dL POC Glucose (mg/dL) (75-99) mg/dL Hemoglobin A1c 10.7 H (4.0-6.0) % Calcium 8.0 L (8.4-10.2) mg/dL 12/30/17 12/30/17 12/30/17 Range/Units 06:50 12:06 17:10 Hgb (11.4-16.0) gm/dL Hct (34.0-46.0) % Chloride (98-107) mmol/L BUN (7-17) mg/dL Creatinine (0.52-1.04) mg/dL Glucose (74-99) mg/dL POC Glucose (mg/dL) 203 H 195 H 197 H (75-99) mg/dL Hemoglobin A1c (4.0-6.0) % Calcium (8.4-10.2) mg/dL 12/30/17 Range/Units 21:35 Hgb (11.4-16.0) gm/dL Hct (34.0-46.0) % Chloride (98-107) mmol/L BUN (7-17) mg/dL Creatinine (0.52-1.04) mg/dL Glucose (74-99) mg/dL POC Glucose (mg/dL) 144 H (75-99) mg/dL Hemoglobin A1c (4.0-6.0) % Calcium (8.4-10.2) mg/dL Assessment and Plan Assessment: Syncope Dehydration Hyperglycemia with history of diabetes mellitus diabetic neuropathy chronic back pain migraines endometriosis left ovarian cyst chronic constipation Plan: This is a pleasant 32 years old female, presents with syncope and dehydration. Continue same treatment. Continue symptomatic treatment. Resume home medication. Monitor vitals and labs. Call cardiology neurology consult. Continue with IV fluids GI and DVT prophylaxis. Further recommendations based on the clinical course of the patient DVT prophylaxis subcutaneous heparin GI prophylaxis Pepcid PT/OT pending prognosis is guarded
[2017-12-31] MEDS: HEPARIN SODIUM,PORCINE 5,000 UNIT/ML 1 ML VIAL SQ SCH (09:39)
[2017-12-31] MEDS: FAMOTIDINE 20 MG/2 ML VIAL IV SCH (09:39)
[2017-12-31] MEDS: INSULIN ASPART 100 UNIT/ML 1 ML 10 ML VIAL SQ SCH ×2 (09:40→14:21)
[2017-12-31] MEDS: INSULIN DETEMIR 100 UNIT/ML 10 ML VIAL SQ SCH (09:40)
[2017-12-31] MEDS: PREGABALIN 50 MG CAP PO SCH (09:40)
[2017-12-31 11:57] VITALS: BP 126/85; PULSE 125; TEMP 98.6
[2017-12-31 12:12] LABS: Glucose,Whole Blood 168 mg/dL (75-99)
== END 2017-12-31 16:05 | disposition home or self-care (01) | DRG 641 ==
LOC: EC 17:44 → 3OBS 23:08 → OBSVTOIN 12-29 16:04
PROVIDERS: ADMIT Hospitalist; ATTEND Hospitalist
DX: E86.0 Dehydration (principal); E10.40 Type 1 diabetes mellitus with diabetic neuropathy, unspecified; G43.909 Migraine, unspecified, not intractable, without status migrainosus; G89.29 Other chronic pain; I95.1 Orthostatic hypotension; K59.09 Other constipation; N83.202 Unspecified ovarian cyst, left side; S09.90XA Unspecified injury of head, initial encounter; F32.9 Major depressive disorder, single episode, unspecified; F41.9 Anxiety disorder, unspecified; H53.8 Other visual disturbances; M25.511 Pain in right shoulder; M25.531 Pain in right wrist; M54.9 Dorsalgia, unspecified; E10.65 Type 1 diabetes mellitus with hyperglycemia; R51 Headache; Z79.4 Long term (current) use of insulin; Z79.899 Other long term (current) drug therapy; Z86.32 Personal history of gestational diabetes; Z80.8 Family history of malignant neoplasm of other organs or systems; Z82.49 Family history of ischemic heart disease and other diseases of the circulatory system; Z83.3 Family history of diabetes mellitus; Z82.61 Family history of arthritis; W18.30XA Fall on same level, unspecified, initial encounter; Y92.009 Unspecified place in unspecified non-institutional (private) residence as the place of occurrence of the external cause
CPT/HCPCS: 36415; 70450; 71046; 72125; 80048; 80053; 80306; 81001; 81025; 82009; 82550; 82553; 83036; 83605; 83735; 84443; 84484; 85025; 85379; 85610; 85730; 93005; 93306; 93880; 96361; 96374; 96375; 99285

== ENCOUNTER 2018-01-04 00:44 | Emergency (ER) | payer OTHER ==
[2018-01-04] MEDS ORDERED: SODIUM CHLORIDE 0.9% 1,000 ML IV STA ×3 (01:08→02:04)
[2018-01-04 01:33] LABS: INR 1.1 (<1.2); Prothrombin Time 10.9 sec (9.0-12.0)
--- NOTE | 2018-01-04 01:33 | XR ---
EXAMINATION TYPE: XR chest 2V DATE OF EXAM: 01/04/2018 COMPARISON: 12/28/2017 HISTORY: Dizziness FINDINGS: heart and mediastinum are normal. Lungs are clear. Diaphragm is normal. Bony thorax appears normal. TECHNIQUE: Frontal and lateral views of the chest are obtained. IMPRESSION: Normal chest. No change.
[2018-01-04 01:37] LABS: ALT 23 U/L (9-52); AST 17 U/L (14-36); Alkaline Phosphatase 59 U/L (38-126); Anion Gap 13 mmol/L; Blood Urea Nitrogen 21 mg/dL (7-17); Calcium 9.5 mg/dL (8.4-10.2); Carbon Dioxide 23 mmol/L (22-30); Chloride 99 mmol/L (98-107); Glucose 334 mg/dL (74-99); Sodium 135 mmol/L (137-145); Total Bilirubin 2.3 mg/dL (0.2-1.3)
[2018-01-04 01:41] LABS: Basophils % (A) 1 %; Eosinophils % (A) 1 %; HCT 38.9 % (34.0-46.0); HGB 13.4 gm/dL (11.4-16.0); Lymphocytes % (A) 33 %; MCH 30.2 pg (25.0-35.0); MCHC 34.4 g/dL (31.0-37.0); MCV 87.7 fL (80.0-100.0); Mean Platelet Volume 7.8; Monocytes # (A) 0.5 k/uL (0-1.0); Monocytes % (A) 8 %; Neutrophils # (A) 3.5 k/uL (1.3-7.7); Neutrophils % (A) 56 %; Platelet Count 270 k/uL (150-450); RBC 4.43 m/uL (3.80-5.40); RDW 12.3 % (11.5-15.5); WBC 6.2 k/uL (3.8-10.6)
[2018-01-04 01:48] LABS: Potassium 5.1 mmol/L (3.5-5.1)
--- NOTE | 2018-01-04 01:48 | ED ---
Syncope HPI - General Chief Complaint: Dizziness Stated Complaint: DIZZINESS Time Seen by Provider: 01/04/18 00:52 Source: patient, EMS, RN notes reviewed, old records reviewed Mode of arrival: EMS Limitations: no limitations - History of Present Illness Initial Comments: This patient's a 32-year-old female presents emergency department today with syncopal episode. Patient reports that she was admitted the hospital earlier this week discharged 2 days ago for similar complaints and fluctuation of heart rate. She is a type 1 diabetic. Patient reportedly was at home and she started to feel dizzy and lightheaded. She went to lay down. She reports she felt she has right side of her shoulder. She denies any head injury. Patient states that she subsequently down. Afterwards she went to her son's room and when she was standing and she had another syncopal episode. Patient reports that her heart rate has been fluctuating. Patient states she has no specific chest pain or shortness of breath. She states she has no headache. - Related Data Home Medications Medication Instructions Recorded Confirmed Insulin Glargine,Hum.rec.anlog 24 units SQ DAILY 10/18/17 12/28/17 [Touaaron Solostar] ALPRAZolam [Xanax] 0.25 mg PO DAILY PRN 10/21/17 12/28/17 Escitalopram [Lexapro] 10 mg PO DAILY PRN 10/21/17 12/28/17 INSULIN LISPRO (HumaLOG) [humaLOG] See Protocol SQ AC-TID PRN 10/21/17 12/28/17 INSULIN LISPRO (humaLOG) [humaLOG] 8 units SQ AC-TID 10/21/17 12/28/17 Pregabalin [Lyrica] 50 mg PO BID 12/20/17 12/28/17 Amitriptyline HCl [Elavil] 10 mg PO HS 12/28/17 12/28/17 Allergies Allergy/AdvReac Type Severity Reaction Status Date / Time No Known Allergies Allergy Verified 12/28/17 18:02 Review of Systems ROS Statement: Those systems with pertinent positive or pertinent negative responses have been documented in the HPI. ROS Other: All systems not noted in ROS Statement are negative. Past Medical History Past Medical History: Diabetes Mellitus Additional Past Medical History / Comment(s): IDDM type I (pt states she will soon be placed on insulin pump), DKA, neuropathy/ chronic pain, back pain, migraines, endometriosis, L ovarian cyst, chronic consitpation. History of Any Multi-Drug Resistant Organisms: None Reported Past Surgical History: Tubal Ligation, Uterine Ablation Additional Past Surgical History / Comment(s): 12/22/17 colonoscopy-normal, LAPAROSCOPIC REMOVAL TUBE AND OVARY-Right. D&C, HYSTEROSCOPY, NOVASURE ABLATION 2016. 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 Past Psychological History: Anxiety, Depression Smoking Status: Never smoker Past Alcohol Use History: None Reported Past Drug Use History: None Reported - Past Family History Mother Family Medical History: Rheumatoid Arthritis (RA) Additional Family Medical History / Comment(s): Mother is 62 yrs old. Father Family Medical History: Cancer, Diabetes Mellitus, Deep Vein Thrombosis (DVT), Hypertension Additional Family Medical History / Comment(s): THROAT CA- of but pt does not know at what age. General Exam - General Exam Comments Initial Comments: 32-year-old female. Alert and oriented. No significant distress. Limitations: no limitations General appearance: alert, in no apparent distress Head exam: Present: atraumatic, normocephalic, normal inspection Eye exam: Present: normal appearance, PERRL, EOMI. Absent: scleral icterus, conjunctival injection, periorbital swelling ENT exam: Present: normal exam, mucous membranes moist Neck exam: Present: normal inspection. Absent: tenderness, meningismus, lymphadenopathy Respiratory exam: Present: normal lung sounds bilaterally. Absent: respiratory distress, wheezes, rales, rhonchi, stridor Cardiovascular Exam: Present: regular rate, normal rhythm, tachycardia, normal heart sounds. Absent: systolic murmur, diastolic murmur, rubs, gallop, clicks GI/Abdominal exam: Present: soft, normal bowel sounds. Absent: distended, tenderness, guarding, rebound, rigid Back exam: Present: normal inspection Neurological exam: Present: alert, oriented X3, CN II-XII intact Psychiatric exam: Present: normal affect, normal mood Skin exam: Present: warm, dry, intact, normal color. Absent: rash Course Vital Signs 01/04/18 01/04/18 01/04/18 01:08 01:57 01:58 Temperature 99.1 F Pulse Rate 121 H Pulse Rate [ 114 H 133 H Pulse Oximetery ] Respiratory 18 Rate Blood Pressure 110/67 Blood Pressure 142/95 110/71 [Right Arm] O2 Sat by Pulse 99 99 Oximetry 01/04/18 01/04/18 01/04/18 02:00 03:00 03:46 Temperature 97.4 F L Pulse Rate 114 H 113 H 110 H Pulse Rate [ 142 H Pulse Oximetery ] Respiratory 16 16 16 Rate Blood Pressure 110/71 135/90 118/80 Blood Pressure 102/68 [Right Arm] O2 Sat by Pulse 98 99 99 Oximetry Medical Decision Making - Medical Decision Making his patient's a 32-year-old female presents emergency department today with syncopal episode. Patient reports that she was admitted the hospital earlier this week discharged 2 days ago for similar complaints and fluctuation of heart rate. She is a type 1 diabetic. Patient orthostatic blood pressures and heart rate were positive. Patient was given 2L bolus. She had a normal ekg, besides tachycardia. She had normal troponin. she did have some ketones in her urine, and Blood sugar was 330. She was given 5 units of insulin. No concern for DKA with non anion gap. Patient was admitted adn discharged this past week for same complaints. At that time she had full cardiac workup. Discussed that admission today wound likely show same tests. she Does feel better after fluids. Discussed case with Dr. Fontaine, and agree patient is stable for discharge home and follow up with PCP. - Lab Data Result diagrams: 01/04/18 00:48 01/04/18 00:48 Lab Results 01/04/18 01/04/18 01/04/18 Range/Units 00:48 00:48 00:48 WBC 6.2 (3.8-10.6) k/uL RBC 4.43 (3.80-5.40) m/uL Hgb 13.4 (11.4-16.0) gm/dL Hct 38.9 (34.0-46.0) % MCV 87.7 (80.0-100.0) fL MCH 30.2 (25.0-35.0) pg MCHC 34.4 (31.0-37.0) g/dL RDW 12.3 (11.5-15.5) % Plt Count 270 (150-450) k/uL Neutrophils % 56 % Lymphocytes % 33 % Monocytes % 8 % Eosinophils % 1 % Basophils % 1 % Neutrophils # 3.5 (1.3-7.7) k/uL Lymphocytes # 2.0 (1.0-4.8) k/uL Monocytes # 0.5 (0-1.0) k/uL Eosinophils # 0.0 (0-0.7) k/uL Basophils # 0.0 (0-0.2) k/uL PT 10.9 (9.0-12.0) sec INR 1.1 (<1.2) Sodium 135 L (137-145) mmol/L Potassium 5.1 (3.5-5.1) mmol/L Chloride 99 (98-107) mmol/L Carbon Dioxide 23 (22-30) mmol/L Anion Gap 13 mmol/L BUN 21 H (7-17) mg/dL Creatinine 0.50 L (0.52-1.04) mg/dL Est GFR (CKD-EPI)AfAm >90 (>60 ml/min/1.73 sqM) Est GFR (CKD-EPI)NonAf >90 (>60 ml/min/1.73 sqM) Glucose 334 H (74-99) mg/dL POC Glucose (mg/dL) (75-99) mg/dL POC Glu Driver Service Technician ID Calcium 9.5 (8.4-10.2) mg/dL Total Bilirubin 2.3 H (0.2-1.3) mg/dL AST 17 (14-36) U/L ALT 23 (9-52) U/L Alkaline Phosphatase 59 (38-126) U/L Troponin I (0.000-0.034) ng/mL Total Protein 7.0 (6.3-8.2) g/dL Albumin 4.0 (3.5-5.0) g/dL Urine Color Urine Appearance (Clear) Urine pH (5.0-8.0) Ur Specific [place] (1.001-1.035) Urine Protein (Negative) Urine Glucose (UA) (Negative) Urine Ketones (Negative) Urine Blood (Negative) Urine Nitrite (Negative) Urine Bilirubin (Negative) Urine Urobilinogen (<2.0) mg/dL Ur Leukocyte Esterase (Negative) Urine Opiates Screen (NotDetected) Ur Oxycodone Screen (NotDetected) Urine Methadone Screen (NotDetected) Ur Propoxyphene Screen (NotDetected) Ur Barbiturates Screen (NotDetected) U Tricyclic Antidepress (NotDetected) Ur Phencyclidine Scrn (NotDetected) Ur Amphetamines Screen (NotDetected) U Methamphetamines Scrn (NotDetected) U Benzodiazepines Scrn (NotDetected) Urine Cocaine Screen (NotDetected) U Marijuana (THC) Screen (NotDetected) 01/04/18 01/04/18 01/04/18 Range/Units 00:48 01:56 03:05 WBC (3.8-10.6) k/uL RBC (3.80-5.40) m/uL Hgb (11.4-16.0) gm/dL Hct (34.0-46.0) % MCV (80.0-100.0) fL MCH (25.0-35.0) pg MCHC (31.0-37.0) g/dL RDW (11.5-15.5) % Plt Count (150-450) k/uL Neutrophils % % Lymphocytes % % Monocytes % % Eosinophils % % Basophils % % Neutrophils # (1.3-7.7) k/uL Lymphocytes # (1.0-4.8) k/uL Monocytes # (0-1.0) k/uL Eosinophils # (0-0.7) k/uL Basophils # (0-0.2) k/uL PT (9.0-12.0) sec INR (<1.2) Sodium (137-145) mmol/L Potassium (3.5-5.1) mmol/L Chloride (98-107) mmol/L Carbon Dioxide (22-30) mmol/L Anion Gap mmol/L BUN (7-17) mg/dL Creatinine (0.52-1.04) mg/dL Est GFR (CKD-EPI)AfAm (>60 ml/min/1.73 sqM) Est GFR (CKD-EPI)NonAf (>60 ml/min/1.73 sqM) Glucose (74-99) mg/dL POC Glucose (mg/dL) 275 H (75-99) mg/dL POC Glu Driver Service Technician ID Jovon, Guillaume Calcium (8.4-10.2) mg/dL Total Bilirubin (0.2-1.3) mg/dL AST (14-36) U/L ALT (9-52) U/L Alkaline Phosphatase (38-126) U/L Troponin I 0.012 (0.000-0.034) ng/mL Total Protein (6.3-8.2) g/dL Albumin (3.5-5.0) g/dL Urine Color Yellow Urine Appearance Clear (Clear) Urine pH 5.5 (5.0-8.0) Ur Specific [place] 1.037 H (1.001-1.035) Urine Protein Trace H (Negative) Urine Glucose (UA) 4+ H (Negative) Urine Ketones 2+ H (Negative) Urine Blood Negative (Negative) Urine Nitrite Negative (Negative) Urine Bilirubin Negative (Negative) Urine Urobilinogen <2.0 (<2.0) mg/dL Ur Leukocyte Esterase Negative (Negative) Urine Opiates Screen Detected H (NotDetected) Ur Oxycodone Screen Not Detected (NotDetected) Urine Methadone Screen Not Detected (NotDetected) Ur Propoxyphene Screen Not Detected (NotDetected) Ur Barbiturates Screen Not Detected (NotDetected) U Tricyclic Antidepress Detected H (NotDetected) Ur Phencyclidine Scrn Not Detected (NotDetected) Ur Amphetamines Screen Not Detected (NotDetected) U Methamphetamines Scrn Not Detected (NotDetected) U Benzodiazepines Scrn Not Detected (NotDetected) Urine Cocaine Screen Not Detected (NotDetected) U Marijuana (THC) Screen Not Detected (NotDetected) 01/04/18 Range/Units 03:52 WBC (3.8-10.6) k/uL RBC (3.80-5.40) m/uL Hgb (11.4-16.0) gm/dL Hct (34.0-46.0) % MCV (80.0-100.0) fL MCH (25.0-35.0) pg MCHC (31.0-37.0) g/dL RDW (11.5-15.5) % Plt Count (150-450) k/uL Neutrophils % % Lymphocytes % % Monocytes % % Eosinophils % % Basophils % % Neutrophils # (1.3-7.7) k/uL Lymphocytes # (1.0-4.8) k/uL Monocytes # (0-1.0) k/uL Eosinophils # (0-0.7) k/uL Basophils # (0-0.2) k/uL PT (9.0-12.0) sec INR (<1.2) Sodium (137-145) mmol/L Potassium (3.5-5.1) mmol/L Chloride (98-107) mmol/L Carbon Dioxide (22-30) mmol/L Anion Gap mmol/L BUN (7-17) mg/dL Creatinine (0.52-1.04) mg/dL Est GFR (CKD-EPI)AfAm (>60 ml/min/1.73 sqM) Est GFR (CKD-EPI)NonAf (>60 ml/min/1.73 sqM) Glucose (74-99) mg/dL POC Glucose (mg/dL) 227 H (75-99) mg/dL POC Glu Driver Service Technician ID Guillaume Sigala Calcium (8.4-10.2) mg/dL Total Bilirubin (0.2-1.3) mg/dL AST (14-36) U/L ALT (9-52) U/L Alkaline Phosphatase (38-126) U/L Troponin I (0.000-0.034) ng/mL Total Protein (6.3-8.2) g/dL Albumin (3.5-5.0) g/dL Urine Color Urine Appearance (Clear) Urine pH (5.0-8.0) Ur Specific [place] (1.001-1.035) Urine Protein (Negative) Urine Glucose (UA) (Negative) Urine Ketones (Negative) Urine Blood (Negative) Urine Nitrite (Negative) Urine Bilirubin (Negative) Urine Urobilinogen (<2.0) mg/dL Ur Leukocyte Esterase (Negative) Urine Opiates Screen (NotDetected) Ur Oxycodone Screen (NotDetected) Urine Methadone Screen (NotDetected) Ur Propoxyphene Screen (NotDetected) Ur Barbiturates Screen (NotDetected) U Tricyclic Antidepress (NotDetected) Ur Phencyclidine Scrn (NotDetected) Ur Amphetamines Screen (NotDetected) U Methamphetamines Scrn (NotDetected) U Benzodiazepines Scrn (NotDetected) Urine Cocaine Screen (NotDetected) U Marijuana (THC) Screen (NotDetected) 01/04/18 03:17 EKG performed at 107 shows sinus tachycardia otherwise normal EKG. Ventricular rate of 121 bpm. TN interval 136 no seconds. QRS duration 74 ms. QTQTC 3-4/ 460 ms. - Radiology Data Radiology results: report reviewed CXR is nromal. Disposition Clinical Impression: Orthostatic dizziness Disposition: HOME SELF-CARE Condition: Good Instructions: Dizziness (ED) Additional Instructions: Patient should drink for her plenty of fluids. Patient is follow-up with PCP. Return to emergency department if any alarming signs or symptoms occur. Is patient prescribed a controlled substance at d/c from ED?: No Referrals: Jairo Conroy MD [Primary Care Provider] - 1-2 days Time of Disposition: 03:43
[2018-01-04 02:00] VITALS: RESP 16
[2018-01-04] MEDS ORDERED: ACETAMINOPHEN TAB 500 MG TAB PO STA (02:04)
[2018-01-04] MEDS ORDERED: KETOROLAC 30 MG/ML 1 ML VIAL IVP STA (02:04)
[2018-01-04 02:08] LABS: Appearance,Urine Clear (Clear); Bilirubin,Urine Negative (Negative); Blood,Urine Negative (Negative); Color,Urine Yellow; Glucose,Urine (UA) 4+ (Negative); Leukocyte Esterase,Urine Negative (Negative); Nitrite,Urine Negative (Negative); PH, Urine 5.5 (5.0-8.0); Protein,Urine Trace (Negative); Specific Gravity,Urine 1.037 (1.001-1.035); Urobilinogen,Urine <2.0 mg/dL (<2.0)
[2018-01-04 02:14] LABS: Ketones,Urine 2+ (Negative)
[2018-01-04 02:30] LABS: Amphetamine Screen,Urine Not Detected (NotDetected); Barbiturate Screen,Urine Not Detected (NotDetected); Benzodiazepines Screen,Urine Not Detected (NotDetected); Cocaine Screen,Urine Not Detected (NotDetected); Methadone Screen, Urine Not Detected (NotDetected); Opiate Screen,Urine Detected (NotDetected); Oxycodone Screen, Urine Not Detected (NotDetected); Phencyclidine Screen,Urine Not Detected (NotDetected); Tricyclic Antidepressant,Urine Detected (NotDetected); Urn Cannabinoid Scrn Not Detected (NotDetected)
[2018-01-04] MEDS ORDERED: INSULIN REGULAR 100 UNIT/ML VIAL IV ONE (02:40)
[2018-01-04 03:29] LABS: Glucose,Whole Blood 275 mg/dL (75-99)
[2018-01-04 03:48] VITALS: BP 118/80; PULSE 110; TEMP 97.4
[2018-01-04 04:19] LABS: Glucose,Whole Blood 227 mg/dL (75-99)
== END 2018-01-04 03:56 | disposition home or self-care (01) ==
LOC: EC 00:44
DX: R42 Dizziness and giddiness (principal); R55 Syncope and collapse; R00.0 Tachycardia, unspecified; E10.40 Type 1 diabetes mellitus with diabetic neuropathy, unspecified; F32.9 Major depressive disorder, single episode, unspecified; F41.9 Anxiety disorder, unspecified; Z79.4 Long term (current) use of insulin; Z79.899 Other long term (current) drug therapy
CPT/HCPCS: 36415; 93005; 80053; 84484; 85025; 85610; 81003; 80306; 71046; 99285; 96374; 96361 ×3; J1885

== ENCOUNTER 2018-08-26 00:18 | Emergency (ER) | payer OTHER ==
[2018-08-26 00:25] VITALS: BP 115/77; RESP 18; TEMP 98.3
[2018-08-26] MEDS ORDERED: PENICILLIN VK 500MG STARTER 4 TAB BTL PO STA (00:39)
[2018-08-26] MEDS ORDERED: HYDROcodone/APAP 5-325MG 1 EACH TAB PO STA (00:39)
[2018-08-26] MEDS ORDERED: ACET/COD 300 MG/30 MG STARTER PACK 6 TAB BTL PO STA (00:39)
--- NOTE | 2018-08-26 00:41 | ED ---
ENT HPI - General Source: patient, RN notes reviewed Mode of arrival: ambulatory Limitations: no limitations <Jacky Mathews - Last Filed: 08/26/18 00:44> <Celina Reed - Last Filed: 08/26/18 04:27> - General Chief complaint: Dental/Oral Stated complaint: Dental Pain Time Seen by Provider: 08/26/18 00:29 - History of Present Illness Initial comments: 33-year-old female presents emergency department tingling left lower dental pain. Patient states cannot get into her dentist until next week. Patient states she developed a some last 48 hours. Patient states is unbearable. She did state that she had piece of her tooth break off days ago. No fever no chills. Patient denies any difficulty swallowing no sore throat no headache no dizziness denies any neck pain or neck stiffness. (Jacky Mathews) - Related Data Home Medications Medication Instructions Recorded Confirmed Insulin Glargine,Hum.rec.anlog 24 units SQ DAILY 10/18/17 12/28/17 [Toujeo Solostar] ALPRAZolam [Xanax] 0.25 mg PO DAILY PRN 10/21/17 12/28/17 Escitalopram [Lexapro] 10 mg PO DAILY PRN 10/21/17 12/28/17 INSULIN LISPRO (HumaLOG) [humaLOG] See Protocol SQ AC-TID PRN 10/21/17 12/28/17 INSULIN LISPRO (humaLOG) [humaLOG] 8 units SQ AC-TID 10/21/17 12/28/17 Pregabalin [Lyrica] 50 mg PO BID 12/20/17 12/28/17 Amitriptyline HCl [Elavil] 10 mg PO HS 12/28/17 12/28/17 Previous Rx's Medication Instructions Recorded Ibuprofen [Motrin] 600 mg PO Q8HR PRN #30 tab 08/26/18 Penicillin V Potassium [Pen Vee K] 500 mg PO QID #40 tablet 08/26/18 Allergies Allergy/AdvReac Type Severity Reaction Status Date / Time No Known Allergies Allergy Verified 12/28/17 18:02 Review of Systems ROS Other: All systems not noted in ROS Statement are negative. <Jacky Mathews - Last Filed: 08/26/18 00:44> ROS Other: All systems not noted in ROS Statement are negative. <DerekCelina P - Last Filed: 08/26/18 04:27> ROS Statement: Those systems with pertinent positive or pertinent negative responses have been documented in the HPI. Past Medical History Past Medical History: Diabetes Mellitus Additional Past Medical History / Comment(s): IDDM type I, neuropathy/ chronic pain, back pain, migraines, endometriosis, L ovarian cyst, chronic consitpation. History of Any Multi-Drug Resistant Organisms: None Reported Past Surgical History: Tubal Ligation, Uterine Ablation Additional Past Surgical History / Comment(s): 12/22/17 colonoscopy-normal, LAPAROSCOPIC REMOVAL TUBE AND OVARY-Right. D&C, HYSTEROSCOPY, NOVASURE ABLATION 2016. 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 Past Psychological History: Anxiety, Depression Smoking Status: Never smoker Past Alcohol Use History: None Reported Past Drug Use History: None Reported - Past Family History Mother Family Medical History: Rheumatoid Arthritis (RA) Additional Family Medical History / Comment(s): Mother is 62 yrs old. Father Family Medical History: Cancer, Diabetes Mellitus, Deep Vein Thrombosis (DVT), Hypertension Additional Family Medical History / Comment(s): THROAT CA- of but pt does not know at what age. <Jacky Mathews M - Last Filed: 08/26/18 00:44> General Exam Limitations: no limitations General appearance: alert, in no apparent distress Head exam: Present: atraumatic, normocephalic, normal inspection Eye exam: Present: normal appearance, PERRL, EOMI. Absent: scleral icterus, conjunctival injection, periorbital swelling ENT exam: Present: mucous membranes moist. Absent: normal exam, normal oropharynx (Dental fracture left lower no abscess noted) Neck exam: Present: normal inspection, full ROM, lymphadenopathy. Absent: tenderness, meningismus Respiratory exam: Present: normal lung sounds bilaterally. Absent: respiratory distress, wheezes, rales, rhonchi, stridor Cardiovascular Exam: Present: regular rate (Patient was tachycardic time triaged heart rate 86 on exam), normal rhythm, normal heart sounds. Absent: systolic murmur, diastolic murmur, rubs, gallop, clicks <Jacky Mathews - Last Filed: 08/26/18 00:44> Course Vital Signs 08/26/18 08/26/18 00:21 01:00 Temperature 98.3 F Pulse Rate 121 H 90 Respiratory 18 18 Rate Blood Pressure 115/77 O2 Sat by Pulse 98 100 Oximetry Medical Decision Making <Jacky Mathews - Last Filed: 08/26/18 00:44> <Celina Reed - Last Filed: 08/26/18 04:27> - Medical Decision Making 33-year-old male presented for dental pain. Patient will be started on penicillin, given Tylenol codeine starter pack. Patient was tachycardic in triage secondary to pain and anxiety. A she'll be discharged to follow-up with dentist return parameters were discussed. (Jacky Mathews) I was available for consultation in the emergency department. The history and physical exam were done by the Midlevel Provider. Medical decision making was done by the Midlevel Provider. The Midlevel Provider did not contact me for this patient's care. I was not directly involved in this patient's care. (Celina Reed) Disposition Is patient prescribed a controlled substance at d/c from ED?: No Time of Disposition: 00:41 <Jacky Mathews - Last Filed: 08/26/18 00:44> <Celina Reed - Last Filed: 08/26/18 04:27> Clinical Impression: Dental caries, Toothache Disposition: HOME SELF-CARE Condition: Stable Instructions (If sedation given, give patient instructions): Toothache (ED) Additional Instructions: Please return to the Emergency Department if symptoms worsen or any other concerns. Prescriptions: Ibuprofen [Motrin] 600 mg PO Q8HR PRN #30 tab PRN Reason: Pain Penicillin V Potassium [Pen Vee K] 500 mg PO QID #40 tablet Referrals: Jario Conroy MD [Primary Care Provider] - 1-2 days
[2018-08-26 01:02] VITALS: PULSE 90
== END 2018-08-26 01:00 | disposition home or self-care (01) ==
LOC: EC 00:18
DX: K02.9 Dental caries, unspecified (principal); R00.0 Tachycardia, unspecified; E10.40 Type 1 diabetes mellitus with diabetic neuropathy, unspecified; F32.9 Major depressive disorder, single episode, unspecified; F41.9 Anxiety disorder, unspecified; Z79.4 Long term (current) use of insulin; Z79.899 Other long term (current) drug therapy
CPT/HCPCS: 99282

== ENCOUNTER 2019-02-15 11:29 | Observation (INO) | payer OTHER ==
[2019-02-15] MEDS ORDERED: VANCOMYCIN IV PER PHARMACY 1 EACH MISC MISCELLANE PRN (12:10)
[2019-02-15] MEDS ORDERED: VANCOMYCIN 1,000 MG in SODIUM CHLORIDE 0.9% 250 ML IVPB STA (12:16)
[2019-02-15] MEDS ORDERED: lamoTRIgine 100 MG TAB PO STA (12:53)
[2019-02-15 13:00] LABS: Basophils % (A) 0 %; Eosinophils % (A) 1 %; HCT 37.9 % (34.0-46.0); HGB 12.7 gm/dL (11.4-16.0); Lymphocytes # (A) 2.1 k/uL (1.0-4.8); Lymphocytes % (A) 24 %; MCH 29.4 pg (25.0-35.0); MCHC 33.6 g/dL (31.0-37.0); MCV 87.6 fL (80.0-100.0); Mean Platelet Volume 6.8; Monocytes # (A) 0.3 k/uL (0-1.0); Monocytes % (A) 4 %; Neutrophils # (A) 6.4 k/uL (1.3-7.7); Neutrophils % (A) 71 %; Platelet Count 317 k/uL (150-450); RBC 4.33 m/uL (3.80-5.40); RDW 12.5 % (11.5-15.5); WBC 9.1 k/uL (3.8-10.6)
[2019-02-15] MEDS ORDERED: TERBINAFINE 250 MG TAB PO STA (13:01)
--- NOTE | 2019-02-15 13:07 | ED ---
Wound/Laceration HPI - General Chief Complaint: Wound/Laceration Stated Complaint: cellulitis of head Time Seen by Provider: 02/15/19 11:42 Source: patient, RN notes reviewed Mode of arrival: ambulatory Limitations: no limitations - History of Present Illness Initial Comments: This a 33-year-old female presents emergency Department chief complaint of wound to her head. Patient states that 2 weeks ago she struck her head on her faucet in her tub. Patient states it is small cut. Patient states that now she's had this large open wound or sucking better with treatment. Patient states she was seen by my expressed and sent here for evaluation. Patient does state that she is a type I diabetic. Patient states that all over here is fallen on location and has been large amount of drainage. - Related Data Home Medications Medication Instructions Recorded Confirmed ALPRAZolam [Xanax] 0.25 mg PO DAILY PRN 10/21/17 02/15/19 Escitalopram [Lexapro] 10 mg PO DAILY PRN 10/21/17 02/15/19 Insulin Lispro [Admelog] See Protocol SQ CONTINUOUS 02/15/19 02/15/19 Previous Rx's Medication Instructions Recorded Ibuprofen [Motrin] 600 mg PO Q8HR PRN #30 tab 08/26/18 Allergies Allergy/AdvReac Type Severity Reaction Status Date / Time No Known Allergies Allergy Verified 02/15/19 12:04 Review of Systems ROS Statement: Those systems with pertinent positive or pertinent negative responses have been documented in the HPI. ROS Other: All systems not noted in ROS Statement are negative. Past Medical History Past Medical History: Diabetes Mellitus Additional Past Medical History / Comment(s): IDDM type I, neuropathy/ chronic pain, back pain, migraines, endometriosis, L ovarian cyst, chronic consitpation. History of Any Multi-Drug Resistant Organisms: None Reported Past Surgical History: Tubal Ligation, Uterine Ablation Additional Past Surgical History / Comment(s): 12/22/17 colonoscopy-normal, LAPAROSCOPIC REMOVAL TUBE AND OVARY-Right. D&C, HYSTEROSCOPY, NOVASURE ABLATION 2016. 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 Past Psychological History: Anxiety, Depression Smoking Status: Never smoker Past Alcohol Use History: None Reported Past Drug Use History: None Reported - Past Family History Mother Family Medical History: Rheumatoid Arthritis (RA) Additional Family Medical History / Comment(s): Mother is 62 yrs old. Father Family Medical History: Cancer, Diabetes Mellitus, Deep Vein Thrombosis (DVT), Hypertension Additional Family Medical History / Comment(s): THROAT CA- of but pt does not know at what age. General Exam Limitations: no limitations General appearance: alert, in no apparent distress Head exam: Present: atraumatic, normocephalic. Absent: normal inspection Eye exam: Present: normal appearance, PERRL, EOMI. Absent: scleral icterus, conjunctival injection, periorbital swelling ENT exam: Present: normal exam, normal oropharynx, mucous membranes moist Neck exam: Present: normal inspection. Absent: tenderness, meningismus, lymphadenopathy Respiratory exam: Present: normal lung sounds bilaterally. Absent: respiratory distress, wheezes, rales, rhonchi, stridor Cardiovascular Exam: Present: regular rate, normal rhythm, normal heart sounds. Absent: systolic murmur, diastolic murmur, rubs, gallop, clicks GI/Abdominal exam: Present: soft, normal bowel sounds. Absent: distended, tenderness, guarding, rebound, rigid Neurological exam: Present: alert Skin exam: Present: warm (Large open wound ontop of scalp, with serous drainage, there is no hair covering this location she has multiple other areas on posterior scalp region), dry, intact, normal color. Absent: rash Course Vital Signs 02/15/19 02/15/19 11:33 12:52 Temperature 97.4 F L Pulse Rate 107 H 89 Respiratory 16 16 Rate Blood Pressure 137/78 O2 Sat by Pulse 100 98 Oximetry Medical Decision Making - Medical Decision Making Patient has extensive tinea infection of her scalp with most likely secondary infection. Patient be admitted for oral antifungals, infectious disease consult and IV antibiotics for possible secondary sialitis. Patient was started on Lamisil has been does not have grisoflauvin. - Lab Data Result diagrams: 02/15/19 12:47 Lab Results 02/15/19 Range/Units 12:47 WBC 9.1 (3.8-10.6) k/uL RBC 4.33 (3.80-5.40) m/uL Hgb 12.7 (11.4-16.0) gm/dL Hct 37.9 (34.0-46.0) % MCV 87.6 (80.0-100.0) fL MCH 29.4 (25.0-35.0) pg MCHC 33.6 (31.0-37.0) g/dL RDW 12.5 (11.5-15.5) % Plt Count 317 (150-450) k/uL Neutrophils % 71 % Lymphocytes % 24 % Monocytes % 4 % Eosinophils % 1 % Basophils % 0 % Neutrophils # 6.4 (1.3-7.7) k/uL Lymphocytes # 2.1 (1.0-4.8) k/uL Monocytes # 0.3 (0-1.0) k/uL Eosinophils # 0.0 (0-0.7) k/uL Basophils # 0.0 (0-0.2) k/uL Disposition Clinical Impression: Tinea kerion, Cellulitis of scalp Disposition: ADMITTED IP TO THIS [facility] Condition: Fair Referrals: None,Stated [Primary Care Provider] - 1-2 days
[2019-02-15] MEDS ORDERED: NALOXONE 0.4 MG/ML 1 ML VIAL IV PRN (13:09)
[2019-02-15] MEDS ORDERED: IBUPROFEN 400 MG TAB PO PRN (13:09)
[2019-02-15] MEDS ORDERED: ACETAMINOPHEN TAB 325 MG TAB PO PRN (13:09)
[2019-02-15 13:10] LABS: ALT 9 U/L (9-52); AST 14 U/L (14-36); African American GFR (CKD) >90 (>60 ml/min/1.73 sqM); Albumin 4.1 g/dL (3.5-5.0); Alkaline Phosphatase 157 U/L (38-126); Anion Gap 9 mmol/L; Blood Urea Nitrogen 10 mg/dL (7-17); Calcium 9.2 mg/dL (8.4-10.2); Carbon Dioxide 28 mmol/L (22-30); Chloride 99 mmol/L (98-107); Glucose 351 mg/dL (74-99); Potassium 4.7 mmol/L (3.5-5.1); Sodium 136 mmol/L (137-145); Total Bilirubin 0.9 mg/dL (0.2-1.3); Total Protein 7.6 g/dL (6.3-8.2)
[2019-02-15] MEDS ORDERED: ESCITALOPRAM 10 MG TAB PO PRN (16:16)
[2019-02-15] MEDS ORDERED: ALPRAZolam 0.25 MG TAB PO PRN (16:16)
[2019-02-15] MEDS ORDERED: TEMAZEPAM 15 MG CAP PO PRN (16:17)
[2019-02-15] MEDS ORDERED: NACL ISO OSM IV SCH (16:30)
[2019-02-15] MEDS ORDERED: SALINE IV SCH (16:30)
[2019-02-15] MEDS ORDERED: FLUCONAZOLE IV SCH (16:30)
--- NOTE | 2019-02-15 17:01 | XR ---
EXAMINATION TYPE: XR chest 1V portable DATE OF EXAM: 02/15/2019 CLINICAL HISTORY: Chest x-ray January 04, 2018 TECHNIQUE: Single AP portable frontal upright view of the chest is obtained. COMPARISON: None FINDINGS: Overlying bra strap is present on current study. There is no focal air space opacity, pleur al effusion, or pneumothorax seen. The cardiac silhouette size is within normal limits. The osseou s structures are intact. IMPRESSION: No acute process.
[2019-02-15] MEDS: SALINE IVPB SCH (17:23)
[2019-02-15] MEDS: FLUCONAZOLE IVPB SCH (17:23)
[2019-02-15] MEDS: NACL ISO OSM IVPB SCH (17:23)
[2019-02-15 17:26] LABS: Glucose,Whole Blood 227 mg/dL (75-99)
[2019-02-15] MEDS: INSULIN ASPART (NovoLOG) 100 UNIT/ML VIAL SQ SCH ×2 (17:39→21:12)
--- NOTE | 2019-02-15 19:04 | HP ---
HISTORY AND PHYSICAL DATE OF SERVICE: 02/15/2019 CHIEF COMPLAINT: Scalp laceration and wound and infection. HISTORY OF PRESENT ILLNESS: This 33-year-old woman with a past medical history of multiple medical problems, including diabetes mellitus, type 1, history of diabetic ketoacidosis, history of neuropathy, history of tubal ligation, anxiety, depression, being followed by Dr. Conroy in the outpatient setting, apparently hit her head against the faucet in the bathtub about 2 weeks ago. Subsequently the patient had some bleeding and she also was losing hair on the scalp area. The wound was noted. Because of increasing pain and swelling in the mid part of the upper scalp, the patient came to [facility] and was admitted for evaluation and treatment. There is no history of any fever, rigor or chills. No history of headache, loss of consciousness, seizures. Sugar is elevated at 351. PAST MEDICAL HISTORY: 1. Diabetes mellitus, type 1. 2. Diabetic ketoacidosis. 3. Peripheral neuropathy. 4. Chronic low back pain. 5. History of ovarian cyst. 6. Chronic constipation. 7. Tubal ligation. 8. Anxiety. 9. Depression. HOME MEDICATIONS: 1. Motrin 600 mg q.8 p.r.n. 2. Lexapro 100 mg daily p.r.n. 3. Xanax 0.25 daily p.r.n. 4. Lispro protocol. ALLERGIES: NONE. FAMILY HISTORY: History of diabetes mellitus, type 2, DVT, hypertension, throat cancer. SOCIAL HISTORY: No history of smoking. No history of alcohol intake. REVIEW OF SYSTEMS: ENT: As mentioned earlier. CARDIOVASCULAR SYSTEM: No angina, palpitations. RESPIRATORY SYSTEM: No cough, hemoptysis. GI: No nausea, vomiting. : No dysuria or retention. NERVOUS SYSTEM: No numbness, weakness. ALLERGY/IMMUNOLOGY: No asthma, hayfever. MUSCULOSKELETAL: As mentioned earlier. HEMATOLOGY/ONCOLOGY: No history of anemia. ENDOCRINE: As mentioned earlier. CONSTITUTIONAL: As mentioned earlier. DERMATOLOGY: Negative. RHEUMATOLOGY: Negative. PSYCHIATRY: As mentioned earlier. PHYSICAL EXAMINATION: Patient is alert and oriented x3. Pulse 95, blood pressure 116/78, respirations 16, temperature 97.9, pulse ox 100% on room air. HEENT: Conjunctivae normal. Oral mucosa moist. Significant area of erythema, tenderness and alopecia in the top of the head which is tender with some exudation also present. CARDIOVASCULAR SYSTEM: S1, S2 muffled. No S3. No S4. RESPIRATORY SYSTEM: Breath sounds diminished at the bases. No rhonchi. No crackles. ABDOMEN: Soft, non-tender. No mass palpable. LEGS: No edema. No swelling. NERVOUS SYSTEM: Higher functions as mentioned earlier. Moves all 4 limbs. No focal motor or sensory deficit. LYMPHATICS: No lymph node palpable in neck, axillae or groin. SKIN: No ulcer, rash, bleeding. JOINTS: No active deforming arthropathy. LABS: WBC 9.1, hemoglobin 12.7. Sodium 136. Glucose 351. ASSESSMENT: 1. Scalp infection and abscess, possibly kerion, secondary to diabetes mellitus, type 1. 2. Diabetes mellitus, type 1, uncontrolled with hyperglycemia. 3. Hyponatremia. 4. History of syncope. 5. History of diabetic ketoacidosis. 6. Peripheral neuropathy. 7. History of migraine. 8. History of left ovarian cyst. 9. History of uterine ablation. 10.Anxiety. 11.Depression. RECOMMENDATIONS AND DISCUSSION: In this 33-year-old woman who presented with multiple complex medical issues, I would recommend to continue current management, continue with symptomatic treatment, continue with the broad-spectrum IV antibiotics. Infectious disease evaluation. I would also recommend monitoring blood sugars closely. Lantus will be initiated. Guarded prognosis because of multiple complex medical issues. Further recommendations to follow. MMODL / IJN: [id number] /
[2019-02-15] MEDS: PIPERACILLIN-TAZOBACTAM 3.375 GM in SODIUM CHLORIDE 0.9% 100 ML IVPB SCH (19:09)
[2019-02-15 20:59] LABS: Glucose,Whole Blood 436 mg/dL (75-99)
[2019-02-15] MEDS: INSULIN DETEMIR (LEVEMIR) 100 UNIT/ML SYR SQ SCH (21:13)
[2019-02-15] MEDS: HEPARIN SODIUM,PORCINE 5,000 UNIT/ML 1 ML VIAL SQ SCH (21:13)
[2019-02-15] MEDS: VANCOMYCIN 1,000 MG in SODIUM CHLORIDE 0.9% 250 ML IVPB SCH (22:07)
[2019-02-15] MEDS: HYDROcodone/APAP 5-325MG 1 EACH TAB PO PRN (22:07)
--- NOTE | 2019-02-15 23:39 | P.CONS ---
History of Present Illness - Reason for Consult Consult date: 02/15/19 Scalp wound and cellulitis Requesting physician: Peter Hamilton - Chief Complaint Scalp wound pain swelling and redness getting worse over the last few days - History of Present Illness Patient is a 33 year old female with past medical history significant for diabetes mellitus type 1 patient did have injury to the scalp about 2 weeks ago when she was trying to take a bath hitting her head with a faucet with subsequent laceration, patient to has been using some local treatment however did not have any improvement and over the last few days patient is to have more than aching pain with intensity about 5 out of 10 and no radiation did have minimal drainage not very clear about the collar did have a low-grade fever denies any high-grade fever rigors and chills with these symptoms and the patient was evaluated by the ER physician on arrival to the patient did have low-grade fever of 99.3 patient white count was normal patient did have some local wound cultures obtained she was started on vancomycin has been admitted to the hospital infectious disease was consulted for further recommendation regarding antibiotic therapy Review of Systems CONSTITUTIONAL: Positive for weakness. Low-grade Fever EYES: No complaint. ENT:No complaint. RESPIRATORY: No complaint. CARDIOVASCULAR: No complaint. GENITOURINARY: No complaint. GASTROINTESTINAL: No complaint. MUSCULOSKELETAL: No complaint. INTEGUMENTARY: As per history of present illness. PSYCHOLOGICAL: No complaint. ENDOCRINE: No complaint. NEUROLOGIC: No complaint. Past Medical History Past Medical History: Diabetes Mellitus, Syncope Additional Past Medical History / Comment(s): IDDM type I, DKA, neuropathy bilateral legs/feet, chronic low back pain, bilateral leg pain, migraines, L ovarian cysts, chronic constipation. History of Any Multi-Drug Resistant Organisms: None Reported Past Surgical History: Tubal Ligation, Uterine Ablation Additional Past Surgical History / Comment(s): 12/22/17 colonoscopy-normal, LAPAROSCOPIC REMOVAL TUBE AND OVARY-Right d/t endometriosis, D&C, HYSTEROSCOPY, NOVASURE ABLATION 2016. Past Anesthesia/Blood Transfusion Reactions: No Reported Reaction Additional Past Anesthesia/Blood Transfusion Reaction / Comm: HAD MULT INJ FOR DENTAL WORK, NOVACAINE WAS INEFFECTIVE. Past Psychological History: Anxiety, Depression Additional Psychological History / Comment(s): Pt resides with her 3 children. She is independent. She does not drive. She walks or takes the bus to [employer]. She is employed. Smoking Status: Never smoker Past Alcohol Use History: None Reported Past Drug Use History: None Reported - Past Family History Mother Family Medical History: Rheumatoid Arthritis (RA) Additional Family Medical History / Comment(s): Mother is 63 yrs old. Father Family Medical History: Cancer, Diabetes Mellitus, Deep Vein Thrombosis (DVT), Hypertension Additional Family Medical History / Comment(s): THROAT CA- of but pt does not know at what age. Medications and Allergies Home Medications Medication Instructions Recorded Confirmed Type ALPRAZolam [Xanax] 0.25 mg PO DAILY PRN 10/21/17 02/15/19 History Escitalopram [Lexapro] 10 mg PO DAILY PRN 10/21/17 02/15/19 History Ibuprofen [Motrin] 600 mg PO Q8HR PRN #30 tab 08/26/18 02/15/19 Rx Insulin Lispro [Admelog] See Protocol SQ CONTINUOUS 02/15/19 02/15/19 History Allergies Allergy/AdvReac Type Severity Reaction Status Date / Time No Known Allergies Allergy Verified 02/15/19 12:04 Physical Exam Vitals: Vital Signs Temp Pulse Resp BP Pulse Ox 02/15/19 14:55 99.8 F H 02/15/19 13:45 97.9 F 02/15/19 12:52 89 16 98 02/15/19 11:33 97.4 F L 107 H 16 137/78 100 Intake and Output 02/15/19 02/15/19 02/15/19 06:59 14:59 22:59 Other: Weight 50.802 kg GENERAL DESCRIPTION: Middle-aged female lying in bed, no distress. No tachypnea or accessory muscle of respiration use. HEENT: Shows Pallor , no scleral icterus. Oral mucous membrane is dry. No pharyngeal erythema or thrush NECK: Trachea central, no thyromegaly. LUNGS: Unlabored breathing. Clear to auscultation anteriorly. No wheeze or crackle. HEART: S1, S2, regular rate and rhythm. No loud murmur ABDOMEN: Soft, no tenderness , guarding or rigidity, no organomegaly EXTREMITIES: No edema of feet. SKIN: Scalp did have a wound, a regular superficial with minimal slough some redness no foul-smelling drainage NEUROLOGICAL: The patient is awake, alert, oriented x3, mood and affect normal. Results CBC & Chem 7: 02/15/19 12:47 02/15/19 12:47 Labs: Abnormal Lab Results - Last 24 Hours (Table) 02/15/19 Range/Units 12:47 Sodium 136 L (137-145) mmol/L Creatinine 0.34 L (0.52-1.04) mg/dL Glucose 351 H (74-99) mg/dL Alkaline Phosphatase 157 H (38-126) U/L Assessment and Plan Assessment: 1-patient with scalp wound traumatic with secondary cellulitis likely from gram- positive skin kierra in this patient to have underlying diabetes mellitus with elevated blood sugar is likely hindering healing of this wound and cellulitis Plan: 1-Vancomycin pharmacy to dose target trough of 15 while watching his kidney function and Vanco trough closely 2-local wound care with the dry Aquacel silver dressing to be changed daily We will follow on clinical condition and cultures to further adjust medication if needed Thank you for this consultation will follow this patient with you Time with Patient: Greater than 30
[2019-02-16] MEDS: PIPERACILLIN-TAZOBACTAM 3.375 GM in SODIUM CHLORIDE 0.9% 100 ML IVPB SCH ×2 (00:25→08:06)
[2019-02-16] MEDS: VANCOMYCIN 1,000 MG in SODIUM CHLORIDE 0.9% 250 ML IVPB SCH ×3 (04:51→22:28)
[2019-02-16 07:19] LABS: Glucose,Whole Blood 88 mg/dL (75-99)
[2019-02-16] MEDS: INSULIN ASPART (NovoLOG) 100 UNIT/ML VIAL SQ SCH ×4 (07:22→20:14)
[2019-02-16] MEDS: PANTOPRAZOLE 40 MG TABLET PO SCH (08:06)
[2019-02-16] MEDS: HEPARIN SODIUM,PORCINE 5,000 UNIT/ML 1 ML VIAL SQ SCH ×2 (08:06→20:15)
[2019-02-16] MEDS: HYDROcodone/APAP 5-325MG 1 EACH TAB PO PRN ×3 (08:07→22:28)
[2019-02-16 08:57] LABS: Basophils % (A) 1 %; Eosinophils # (A) 0.1 k/uL (0-0.7); Eosinophils % (A) 1 %; HCT 35.8 % (34.0-46.0); HGB 11.5 gm/dL (11.4-16.0); Lymphocytes # (A) 1.9 k/uL (1.0-4.8); Lymphocytes % (A) 32 %; MCH 28.9 pg (25.0-35.0); MCV 90.4 fL (80.0-100.0); Mean Platelet Volume 7.5; Monocytes # (A) 0.3 k/uL (0-1.0); Monocytes % (A) 4 %; Neutrophils # (A) 3.6 k/uL (1.3-7.7); Neutrophils % (A) 60 %; Platelet Count 286 k/uL (150-450); RBC 3.96 m/uL (3.80-5.40); RDW 12.9 % (11.5-15.5)
[2019-02-16 09:08] LABS: African American GFR (CKD) >90 (>60 ml/min/1.73 sqM); Anion Gap 8 mmol/L; Calcium 8.7 mg/dL (8.4-10.2); Carbon Dioxide 28 mmol/L (22-30); Chloride 103 mmol/L (98-107); Glucose 153 mg/dL (74-99); Potassium 4.2 mmol/L (3.5-5.1); Sodium 139 mmol/L (137-145)
[2019-02-16 09:24] LABS: Blood Urea Nitrogen 16 mg/dL (7-17)
[2019-02-16] MEDS: MULTIVITAMINS, THERA 1 EACH TAB PO SCH (11:51)
[2019-02-16 11:57] LABS: Glucose,Whole Blood 205 mg/dL (75-99)
--- NOTE | 2019-02-16 12:05 | PN ---
PROGRESS NOTE DATE OF SERVICE: 02/16/2019 REASON FOR FOLLOWUP: Scalp cellulitis. INTERVAL HISTORY: The patient is currently afebrile. The patient has been breathing comfortably. The scalp area swelling and redness has slightly decreased, not as much of drainage. No chest pain. No abdominal pain. No nausea, no vomiting. No diarrhea. PHYSICAL EXAMINATION: Blood pressure is 92/62 with a pulse of 87, temperature 97.6, 99% on room air. Patient is a middle-aged female, up in the bed in no distress. HEENT: Examination scalp area wound currently with no significant slough tissue or surrounding redness or drainage. LUNGS: Unlabored breathing, clear to auscultation anteriorly. HEART: S1, S2. Regular rate and rhythm. ABDOMEN: Soft, no tenderness. LABS: Hemoglobin 11.5, white count 6.0, BUN of 15, creatinine 0.43. Wound cultures currently pending. DIAGNOSTIC IMPRESSION AND PLAN: Patient with traumatic wound to the scalp area with secondary cellulitis, possibly gram- positive, less likely gram-negative infection. Currently covered with vancomycin. Discontinue Zosyn. Decrease risk of nephrotoxicity and add Rocephin to cover for the gram-negative. Local care with Aquacel Silver dressing. Waiting for the culture to finalize to determine discharge antibiotics. MMODL / IJN: [id number] /
[2019-02-16 17:05] LABS: Glucose,Whole Blood 423 mg/dL (75-99)
--- NOTE | 2019-02-16 17:14 | PN ---
PROGRESS NOTE DATE OF SERVICE: 02/16/2019. This 33-year-old woman who was admitted with scalp infection and abscess is on broad- spectrum antibiotics. Dr. To has seen the patient. Local treatment was also noted. No chest pain. No palpitations. No fever. On exam, alert and oriented x3. Pulse 99, blood pressure 101/70, respirations 16, temperature 97.9, pulse ox 98% on room air. HEENT: Conjunctivae normal. NECK: No jugular venous distention. CARDIOVASCULAR SYSTEM: S1, S2 muffled. RESPIRATORY SYSTEM: Breath sounds diminished at the bases. Scattered rhonchi and crackles. ABDOMEN: Soft, non-tender. LEGS: No edema. No swelling. NERVOUS SYSTEM: No focal deficit. EXAMINATION OF THE SCALP: Skin lesion present. Erythema. LABS: CBC within normal limits. Glucose 153 and 205. ASSESSMENT: 1. Scalp infection and abscess, possibly kerion secondary to diabetes mellitus, type 1. 2. Diabetes mellitus, type 1, uncontrolled, with hyperglycemia. 3. Hyponatremia. 4. History of syncope. 5. History of diabetic ketoacidosis. 6. Peripheral neuropathy. 7. History of migraine. 8. History of left ovarian cyst. 9. History of uterine ablation. 10.History of anxiety, depression. RECOMMENDATIONS AND DISCUSSION: I recommend to continue current medications, continue with the monitoring, symptomatic treatment. Continue with antibiotics and antibacterials and antifungals. Otherwise, monitor blood sugars closely. Guarded prognosis because of multiple complex medical issues. Further recommendations to follow. Will continue the current dose of insulin. MMODL / IJN: [id number] / MTDD
[2019-02-16] MEDS: SALINE IVPB SCH (17:23)
[2019-02-16] MEDS: NACL ISO OSM IVPB SCH (17:23)
[2019-02-16] MEDS: FLUCONAZOLE IVPB SCH (17:23)
[2019-02-16] MEDS ORDERED: VANCOMYCIN TROUGH DUE 1 EACH MISC MISCELLANE ONE (20:00)
[2019-02-16 20:02] LABS: Glucose,Whole Blood 283 mg/dL (75-99)
[2019-02-16] MEDS: INSULIN DETEMIR (LEVEMIR) 100 UNIT/ML SYR SQ SCH (22:28)
[2019-02-17] MEDS: VANCOMYCIN 1,000 MG in SODIUM CHLORIDE 0.9% 250 ML IVPB SCH (04:40)
[2019-02-17 06:04] VITALS: BP 102/77; PULSE 86; RESP 16; TEMP 97.9
[2019-02-17 06:45] LABS: Glucose,Whole Blood 190 mg/dL (75-99)
[2019-02-17] MEDS: PANTOPRAZOLE 40 MG TABLET PO SCH (07:28)
[2019-02-17] MEDS: HEPARIN SODIUM,PORCINE 5,000 UNIT/ML 1 ML VIAL SQ SCH (07:28)
[2019-02-17] MEDS: INSULIN ASPART (NovoLOG) 100 UNIT/ML VIAL SQ SCH ×2 (07:28→12:56)
[2019-02-17] MEDS: MULTIVITAMINS, THERA 1 EACH TAB PO SCH (07:28)
[2019-02-17] MEDS: HYDROcodone/APAP 5-325MG 1 EACH TAB PO PRN ×2 (07:35→13:00)
[2019-02-17 09:16] LABS: Basophils % (A) 1 %; Eosinophils # (A) 0.1 k/uL (0-0.7); Eosinophils % (A) 2 %; HCT 34.9 % (34.0-46.0); HGB 11.5 gm/dL (11.4-16.0); Lymphocytes # (A) 2.2 k/uL (1.0-4.8); Lymphocytes % (A) 45 %; MCH 29.6 pg (25.0-35.0); MCHC 33.1 g/dL (31.0-37.0); MCV 89.5 fL (80.0-100.0); Monocytes # (A) 0.3 k/uL (0-1.0); Monocytes % (A) 5 %; Neutrophils # (A) 2.2 k/uL (1.3-7.7); Neutrophils % (A) 46 %; Platelet Count 297 k/uL (150-450); RDW 12.6 % (11.5-15.5); WBC 4.9 k/uL (3.8-10.6)
[2019-02-17 09:29] LABS: African American GFR (CKD) >90 (>60 ml/min/1.73 sqM); Anion Gap 5 mmol/L; Blood Urea Nitrogen 10 mg/dL (7-17); Calcium 8.5 mg/dL (8.4-10.2); Carbon Dioxide 25 mmol/L (22-30); Chloride 105 mmol/L (98-107); Glucose 170 mg/dL (74-99); Potassium 4.4 mmol/L (3.5-5.1); Sodium 135 mmol/L (137-145)
[2019-02-17 11:43] LABS: Glucose,Whole Blood 313 mg/dL (75-99)
[2019-02-17] MEDS ORDERED: VANCOMYCIN 1,250 MG in SODIUM CHLORIDE 0.9% 250 ML IVPB SCH (13:00)
--- NOTE | 2019-02-17 16:26 | PN ---
PROGRESS NOTE DATE OF SERVICE: 02/17/2019 REASON FOR FOLLOWUP: Scalp cellulitis and wound infection. INTERVAL HISTORY: The patient was seen on rounds earlier this afternoon. The patient has been afebrile. She has been feeling much better. Her scalp area pain and swelling have improved. There is no drainage. No chest pain. No shortness of breath. No cough. No abdominal pain or diarrhea. PHYSICAL EXAMINATION: Blood pressure 102/77 with a pulse of 86, temperature 97.9. She is 98% on room air. General description is a middle-aged female up in the bed in no distress. HEENT EXAMINATION: Scalp area swelling and redness have improved. No drainage. LUNGS: Unlabored breathing. Clear to auscultation anteriorly. HEART: S1, S2. Regular rate and rhythm. ABDOMEN: Soft. No tenderness. LABS: Hemoglobin 11.5, white count 4.9. Creatinine is 0.41 with potassium 4.4. Wound culture with group B strep and presumptive MRSA. DIAGNOSTIC IMPRESSION AND PLAN: Patient with scalp wound with secondary cellulitis. Culture positive for presumptive MRSA and strep. The patient has been advised to stay in the hospital until the sensitivities are finalized. However, the patient has been insisting on going home. Antibiotic will be switched over to Bactrim DS one twice a day for 10 days. Local care with Aquacel Silver dressing. Advised if any worsening to let me know right away. MMODL / IJN: [id number] /
--- NOTE | 2019-02-28 21:45 | P.DS ---
Providers Date of admission: 02/15/19 13:45 Expected date of discharge: 02/17/19 Attending physician: Peter Hamilton Consults: 02/15/19 13:11 Consult Physician Urgent Consulting Provider: Darcy To Consult Reason/Comments: brooks Do you want consulting provider notified?: Yes Primary care physician: Stated None Hospital Course: Discharge diagnosis Scalp infection and abscess. Likely related to uncontrolled diabetes Diabetes type 1 uncontrolled with hyperglycemia Hyponatremia improving History of syncope History of DKA Peripheral neuropathy History of migraine headaches Anxiety/depression Hospital course Patient is a 28/F history of type 1 diabetes uncontrolled was admitted to the hospital due to scalp infection and possible abscess. Patient was continued on broad-spectrum antibiotics. Patient was seen by ID. Improving clinically with antibiotics and will be continued on oral antibiotics as an outpatient. PHYSICAL EXAMINATION: Patient is lying in the bed comfortably, no acute distress, awake alert and oriented.. HEENT: Normocephalic. Neck is supple. Pupils reactive. Nostrils clear. Oral cavity is moist. Ears reveal no drainage. Neck reveals no JVD, carotid bruits, or thyromegaly. CHEST EXAMINATION: Trachea is central. Symmetrical expansion. Lung abbott clear to auscultation and percussion. CARDIAC: Normal S1, S2 with no gallops. No murmurs ABDOMEN: Soft. Bowel sounds normal. No organomegaly. No abdominal bruits. Extremities: reveal no edema. No clubbing or cyanosis Neurologically awake, alert, oriented x3 with well-coordinated movements. No focal deficits noted Skin: No rash or skin lesions. Scalp did have a wound, a regular superficial with minimal slough. no foul-smelling drainage Psychiatric: Coperative. Nonsuicidal Musculoskeletal: No joint swelling or deformity. Normal range of motion. Discharge vitals reviewed. Patient Condition at Discharge: Fair Plan - Discharge Summary Discharge Rx Participant: No New Discharge Prescriptions: New Sulfamethox-Tmp 800-160Mg [Bactrim DS 800-160 mg] 1 tab PO Q12HR #20 tab Continue Escitalopram [Lexapro] 10 mg PO DAILY PRN PRN Reason: DEPRESSION ALPRAZolam [Xanax] 0.25 mg PO DAILY PRN PRN Reason: Anxiety Ibuprofen [Motrin] 600 mg PO Q8HR PRN #30 tab PRN Reason: Pain Insulin Lispro [Admelog] See Protocol SQ CONTINUOUS Discharge Medication List ALPRAZolam [Xanax] 0.25 mg PO DAILY PRN 10/21/17 [History] Escitalopram [Lexapro] 10 mg PO DAILY PRN 10/21/17 [History] Ibuprofen [Motrin] 600 mg PO Q8HR PRN #30 tab 08/26/18 [Rx] Insulin Lispro [Admelog] See Protocol SQ CONTINUOUS 02/15/19 [History] Sulfamethox-Tmp 800-160Mg [Bactrim DS 800-160 mg] 1 tab PO Q12HR #20 tab 02/17/19 [Rx] Follow up Appointment(s)/Referral(s): None,Stated [Primary Care Provider] - 1-2 days Patient Instructions/Handouts: Cellulitis (DC) Activity/Diet/Wound Care/Special Instructions: Aquacel silver packing of the scalp wound , change q48hr follow up with Dr to in the wound care center next week, call [phone] to make an appointment Discharge Disposition: HOME SELF-CARE
== END 2019-02-17 14:40 | disposition home or self-care (01) ==
LOC: EC 11:29 → 4MS4W 13:45
PROVIDERS: ADMIT Hospitalist; ATTEND Hospitalist
DX: L03.811 Cellulitis of head [any part, except face] (principal); L02.811 Cutaneous abscess of head [any part, except face]; B35.0 Tinea barbae and tinea capitis; S01.01XA Laceration without foreign body of scalp, initial encounter; E10.65 Type 1 diabetes mellitus with hyperglycemia; E10.42 Type 1 diabetes mellitus with diabetic polyneuropathy; G89.29 Other chronic pain; M54.5 Low back pain; G43.909 Migraine, unspecified, not intractable, without status migrainosus; N83.202 Unspecified ovarian cyst, left side; K59.00 Constipation, unspecified; N80.9 Endometriosis, unspecified; F41.9 Anxiety disorder, unspecified; F32.9 Major depressive disorder, single episode, unspecified; E87.1 Hypo-osmolality and hyponatremia; W22.8XXA Striking against or struck by other objects, initial encounter; Z79.4 Long term (current) use of insulin; Z79.899 Other long term (current) drug therapy; Z90.721 Acquired absence of ovaries, unilateral; Z86.39 Personal history of other endocrine, nutritional and metabolic disease; Z86.79 Personal history of other diseases of the circulatory system; Z90.79 Acquired absence of other genital organ(s); Z98.51 Tubal ligation status; Z82.61 Family history of arthritis; Z83.3 Family history of diabetes mellitus; Z83.2 Family history of diseases of the blood and blood-forming organs and certain disorders involving the immune mechanism; Z82.49 Family history of ischemic heart disease and other diseases of the circulatory system; Z80.0 Family history of malignant neoplasm of digestive organs
CPT/HCPCS: 96376; 96365 ×2; 96366 ×3; 96367 ×2; 96372 ×3; 96368; 99284; 36415; 80053; 80048 ×2; 85025 ×3; 80202; 87040; 87070; 87205; 87077; 87186; 71045; G0378 ×3; J2543 ×2; J3370 ×3; J1644 ×3; J0696 ×2; J1450 ×2

== ENCOUNTER 2019-05-24 16:45 | Emergency (ER) | payer OTHER ==
[2019-05-24] MEDS ORDERED: KETOROLAC 30 MG/ML 1 ML VIAL IVP STA (17:06)
[2019-05-24] MEDS ORDERED: SODIUM CHLORIDE 0.9% 1,000 ML IV ONE ×2 (17:06→18:07)
[2019-05-24] MEDS ORDERED: METOCLOPRAMIDE 5 MG/ML 2 ML VIAL IVP STA (17:07)
[2019-05-24] MEDS ORDERED: PROPARACAINE 0.5% OPHTH DROPS 15 ML BTL RIGHT EYE STA (17:07)
[2019-05-24] MEDS ORDERED: diphenhydrAMINE 50 MG/ML 1 ML VIAL IVP STA (17:07)
--- NOTE | 2019-05-24 17:16 | ED ---
Headache HPI - General Chief Complaint: Headache Stated Complaint: Headache Time Seen by Provider: 05/24/19 16:54 Source: RN notes reviewed, old records reviewed Mode of arrival: ambulatory Limitations: no limitations - History of Present Illness Initial Comments: Patient is a 34-year-old female, who presents emergency department today for evaluation for concerns for right-sided facial and eye pain. Patient has been having the symptoms for past 4 days. It has no associated fevers or chills. Patient reports that her right eye is painful with bright lights. Patient denies any eye discharge. She does report history of migraines. She is a type I diabetic, but she did not have her insulin pump today. She reports her blood sugar was high. [facility] then [facility] here. She reports that she's otherwise had no headaches or significant trauma prior to the symptoms past 4 days. Denies any nausea or vomiting. - Related Data Home Medications Medication Instructions Recorded Confirmed ALPRAZolam [Xanax] 0.25 mg PO DAILY PRN 10/21/17 02/15/19 Escitalopram [Lexapro] 10 mg PO DAILY PRN 10/21/17 02/15/19 Insulin Lispro [Admelog] See Protocol SQ CONTINUOUS 02/15/19 02/15/19 Previous Rx's Medication Instructions Recorded Ibuprofen [Motrin] 600 mg PO Q8HR PRN #30 tab 08/26/18 Sulfamethox-Tmp 800-160Mg [Bactrim 1 tab PO Q12HR #20 tab 02/17/19 DS 800-160 mg] carBAMazepine [carBAMazepine ER] 100 mg PO BID #18 tab.er.12h 05/24/19 Allergies Allergy/AdvReac Type Severity Reaction Status Date / Time No Known Allergies Allergy Verified 02/15/19 12:04 Review of Systems ROS Statement: Those systems with pertinent positive or pertinent negative responses have been documented in the HPI. ROS Other: All systems not noted in ROS Statement are negative. Past Medical History Past Medical History: Diabetes Mellitus, Syncope Additional Past Medical History / Comment(s): IDDM type I, DKA, neuropathy bilateral legs/feet, chronic low back pain, bilateral leg pain, migraines, L ovarian cysts, chronic constipation. History of Any Multi-Drug Resistant Organisms: MRSA Date of last positivie culture/infection: 02/15/19 MDRO Source:: Head Past Surgical History: Tubal Ligation, Uterine Ablation Additional Past Surgical History / Comment(s): 12/22/17 colonoscopy-normal, LAPAROSCOPIC REMOVAL TUBE AND OVARY-Right d/t endometriosis, D&C, HYSTEROSCOPY, NOVASURE ABLATION 2016. 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 Past Psychological History: Anxiety, Depression Smoking Status: Never smoker Past Alcohol Use History: None Reported Past Drug Use History: None Reported - Past Family History Mother Family Medical History: Rheumatoid Arthritis (RA) Additional Family Medical History / Comment(s): Mother is 63 yrs old. Father Family Medical History: Cancer, Diabetes Mellitus, Deep Vein Thrombosis (DVT), Hypertension Additional Family Medical History / Comment(s): THROAT CA- of but pt does not know at what age. General Exam - General Exam Comments Initial Comments: Alert and oriented 34-year-old female. No significant distress. Limitations: no limitations General appearance: alert Head exam: Present: atraumatic, normocephalic, normal inspection Eye exam: Present: normal appearance, PERRL, EOMI, conjunctival injection (Minimal right eye conjunctival injection.), other (Patient has a minimal right eye conjunctival injection. 4 scene eye exam was performed and no signs of dendrites.). Absent: scleral icterus, periorbital swelling ENT exam: Present: normal exam, mucous membranes moist, other (Patient is tender to palpation over the ophthalmic nerve branch. No rashes are noted.) Neck exam: Present: normal inspection. Absent: tenderness, meningismus, lymphadenopathy Respiratory exam: Present: normal lung sounds bilaterally. Absent: respiratory distress, wheezes, rales, rhonchi, stridor Cardiovascular Exam: Present: regular rate, normal rhythm, normal heart sounds. Absent: systolic murmur, diastolic murmur, rubs, gallop, clicks Course Vital Signs 05/24/19 16:46 Temperature 97.9 F Pulse Rate 131 H Respiratory 16 Rate Blood Pressure 151/98 O2 Sat by Pulse 100 Oximetry Medical Decision Making - Medical Decision Making Pleasant 34 rolled female presents today for eval for concern for right-sided eye pain and facial pain as well as a headache. Patient's distribution of pain is seems to be consistent with ophthalmic nerve from the trigeminal nerve. Patient has no sign of rash, less concern for shingles this time. I exam was completed and shows no signs of dendrites unforeseen stain. Patient was given migraine cocktail. Blood work was reviewed. She does have high blood sugars do not did not wear her insulin pump today. She's given insulin doses and fluid bolus and emergency department. On reevaluation her pain is improved. I discussed patient's symptoms seemed to be more consistent with trigeminal neuralgia she is quite sensitive to touch over the skin. I discussed treatment with carbamazepine. Patient advised falling up with neurology and primary care physician. Discussed the importance of dosing her insulin on her insulin pump correctly and wearing at all times. - Lab Data Result diagrams: 05/24/19 17:20 05/24/19 17:20 Lab Results 05/24/19 05/24/19 05/24/19 Range/Units 17:20 17:20 18:35 WBC 7.9 (3.8-10.6) k/uL RBC 4.54 (3.80-5.40) m/uL Hgb 13.9 (11.4-16.0) gm/dL Hct 41.8 (34.0-46.0) % MCV 92.0 (80.0-100.0) fL MCH 30.5 (25.0-35.0) pg MCHC 33.2 (31.0-37.0) g/dL RDW 12.2 (11.5-15.5) % Plt Count 318 (150-450) k/uL Neutrophils % 68 % Lymphocytes % 24 % Monocytes % 4 % Eosinophils % 1 % Basophils % 1 % Neutrophils # 5.4 (1.3-7.7) k/uL Lymphocytes # 1.9 (1.0-4.8) k/uL Monocytes # 0.4 (0-1.0) k/uL Eosinophils # 0.1 (0-0.7) k/uL Basophils # 0.0 (0-0.2) k/uL Sodium 131 L (137-145) mmol/L Potassium 4.6 (3.5-5.1) mmol/L Chloride 96 L (98-107) mmol/L Carbon Dioxide 20 L (22-30) mmol/L Anion Gap 15 mmol/L BUN 9 (7-17) mg/dL Creatinine 0.38 L (0.52-1.04) mg/dL Est GFR (CKD-EPI)AfAm >90 (>60 ml/min/1.73 sqM) Est GFR (CKD-EPI)NonAf >90 (>60 ml/min/1.73 sqM) Glucose 747 H* (74-99) mg/dL Calcium 8.9 (8.4-10.2) mg/dL Total Bilirubin 1.0 (0.2-1.3) mg/dL AST 17 (14-36) U/L ALT 13 (4-34) U/L Alkaline Phosphatase 187 H (38-126) U/L C-Reactive Protein <5.0 (<10.0) mg/L Total Protein 7.7 (6.3-8.2) g/dL Albumin 4.2 (3.5-5.0) g/dL Disposition Clinical Impression: Hyperglycemia, Right-sided headache, Trigeminal nerve disorder Disposition: HOME SELF-CARE Condition: Good Instructions (If sedation given, give patient instructions): Acute Headache (ED), Trigeminal Neuralgia (ED) Additional Instructions: Patient advised to follow-up with ophthalmology or neurology if symptoms continue to persist. Take the carbamazepine as prescribed. Return to emergency department if any alarming signs or symptoms occur. Prescriptions: carBAMazepine [carBAMazepine ER] 100 mg PO BID #18 tab.er.12h Is patient prescribed a controlled substance at d/c from ED?: No Referrals: None,Stated [Primary Care Provider] - 1-2 days Santhosh Orourke MD [Medical Doctor] - 1-2 days Margarito Russo MD [STAFF PHYSICIAN] - 1-2 days Time of Disposition: 19:37
[2019-05-24 17:28] LABS: Basophils % (A) 1 %; Eosinophils # (A) 0.1 k/uL (0-0.7); Eosinophils % (A) 1 %; HCT 41.8 % (34.0-46.0); HGB 13.9 gm/dL (11.4-16.0); Lymphocytes # (A) 1.9 k/uL (1.0-4.8); Lymphocytes % (A) 24 %; MCH 30.5 pg (25.0-35.0); MCHC 33.2 g/dL (31.0-37.0); Mean Platelet Volume 8.5; Monocytes # (A) 0.4 k/uL (0-1.0); Monocytes % (A) 4 %; Neutrophils # (A) 5.4 k/uL (1.3-7.7); Neutrophils % (A) 68 %; Platelet Count 318 k/uL (150-450); RBC 4.54 m/uL (3.80-5.40); RDW 12.2 % (11.5-15.5); WBC 7.9 k/uL (3.8-10.6)
[2019-05-24 17:38] LABS: ALT 13 U/L (4-34); AST 17 U/L (14-36); African American GFR (CKD) >90 (>60 ml/min/1.73 sqM); Albumin 4.2 g/dL (3.5-5.0); Alkaline Phosphatase 187 U/L (38-126); Anion Gap 15 mmol/L; Blood Urea Nitrogen 9 mg/dL (7-17); Calcium 8.9 mg/dL (8.4-10.2); Carbon Dioxide 20 mmol/L (22-30); Chloride 96 mmol/L (98-107); Non-African American GFR(CKD) >90 (>60 ml/min/1.73 sqM); Potassium 4.6 mmol/L (3.5-5.1); Sodium 131 mmol/L (137-145); Total Protein 7.7 g/dL (6.3-8.2)
[2019-05-24 18:01] LABS: Glucose 747 mg/dL (74-99)
[2019-05-24] MEDS ORDERED: INSULIN REGULAR 100 UNIT/ML VIAL IV ONE (18:07)
[2019-05-24] MEDS ORDERED: carBAMazepine 100 MG TAB.ER.12H PO STA (19:34)
[2019-05-24 19:43] LABS: Glucose,Whole Blood 586 mg/dL (75-99)
[2019-05-24 19:55] VITALS: BP 110/74; PULSE 110; RESP 18; TEMP 99.6
[2019-05-24 20:35] LABS: Glucose,Whole Blood 390 mg/dL (75-99)
== END 2019-05-24 21:10 | disposition home or self-care (01) ==
LOC: EC 16:45
DX: G50.9 Disorder of trigeminal nerve, unspecified (principal); E10.65 Type 1 diabetes mellitus with hyperglycemia; Z79.4 Long term (current) use of insulin; Z86.69 Personal history of other diseases of the nervous system and sense organs; Z86.14 Personal history of Methicillin resistant Staphylococcus aureus infection
CPT/HCPCS: 36415; 80053; 85025; 86140; 99284; 96374; 96375 ×2; 96361 ×3; J1200; J2765; J1885

== ENCOUNTER 2019-06-07 12:56 | Emergency (ER) | payer OTHER ==
[2019-06-07 13:00] VITALS: RESP 18; TEMP 98
[2019-06-07] MEDS ORDERED: ACETAMINOPHEN TAB 500 MG TAB PO STA (14:07)
[2019-06-07] MEDS ORDERED: IBUPROFEN 600 MG TAB PO STA (14:07)
--- NOTE | 2019-06-07 14:30 | ED ---
ENT HPI - General Chief complaint: ENT Stated complaint: sorethroat, dry mouth Time Seen by Provider: 06/07/19 14:03 Source: patient, RN notes reviewed, old records reviewed Mode of arrival: ambulatory Limitations: no limitations - History of Present Illness Initial comments: 34 year old female presents with 2 days of fever, sore throat, cough, dry mouth. Patient has history of contact with son whom was diagnosed with influenza. PAtient is a diabetic and reports normal sugars. PAtient has not had motrin or tylenol. - Related Data Home Medications Medication Instructions Recorded Confirmed ALPRAZolam [Xanax] 0.25 mg PO DAILY PRN 10/21/17 02/15/19 Escitalopram [Lexapro] 10 mg PO DAILY PRN 10/21/17 02/15/19 Insulin Lispro [Admelog] See Protocol SQ CONTINUOUS 02/15/19 02/15/19 Previous Rx's Medication Instructions Recorded Ibuprofen [Motrin] 600 mg PO Q8HR PRN #30 tab 08/26/18 Sulfamethox-Tmp 800-160Mg [Bactrim 1 tab PO Q12HR #20 tab 02/17/19 DS 800-160 mg] carBAMazepine [carBAMazepine ER] 100 mg PO BID #18 tab.er.12h 05/24/19 Ondansetron Odt [Zofran Odt] 4 mg PO Q8HR PRN #8 tab 06/07/19 Allergies Allergy/AdvReac Type Severity Reaction Status Date / Time No Known Allergies Allergy Verified 06/07/19 13:00 Review of Systems ROS Statement: Those systems with pertinent positive or pertinent negative responses have been documented in the HPI. ROS Other: All systems not noted in ROS Statement are negative. Past Medical History Past Medical History: Diabetes Mellitus, Syncope Additional Past Medical History / Comment(s): IDDM type I, DKA, neuropathy bilateral legs/feet, chronic low back pain, bilateral leg pain, migraines, L ovarian cysts, chronic constipation. History of Any Multi-Drug Resistant Organisms: MRSA Date of last positivie culture/infection: 02/15/19 MDRO Source:: Head Past Surgical History: Tubal Ligation, Uterine Ablation Additional Past Surgical History / Comment(s): 12/22/17 colonoscopy-normal, LAPAROSCOPIC REMOVAL TUBE AND OVARY-Right d/t endometriosis, D&C, HYSTEROSCOPY, NOVASURE ABLATION 2016. 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 Past Psychological History: Anxiety, Depression Smoking Status: Never smoker Past Alcohol Use History: None Reported Past Drug Use History: None Reported - Past Family History Mother Family Medical History: Rheumatoid Arthritis (RA) Additional Family Medical History / Comment(s): Mother is 63 yrs old. Father Family Medical History: Cancer, Diabetes Mellitus, Deep Vein Thrombosis (DVT), Hypertension Additional Family Medical History / Comment(s): THROAT CA- of but pt does not know at what age. General Exam - General Exam Comments Initial Comments: 34 year old female, ,no distress. Limitations: no limitations General appearance: alert, in no apparent distress Head exam: Present: atraumatic, normocephalic, normal inspection Eye exam: Present: normal appearance, PERRL, EOMI. Absent: scleral icterus, conjunctival injection, periorbital swelling ENT exam: Present: normal exam, mucous membranes moist Neck exam: Present: normal inspection. Absent: tenderness, meningismus, lymphadenopathy Respiratory exam: Present: normal lung sounds bilaterally. Absent: respiratory distress, wheezes, rales, rhonchi, stridor Cardiovascular Exam: Present: regular rate, normal rhythm, normal heart sounds. Absent: systolic murmur, diastolic murmur, rubs, gallop, clicks GI/Abdominal exam: Present: soft, normal bowel sounds. Absent: distended, tenderness, guarding, rebound, rigid Extremities exam: Present: normal inspection, full ROM, normal capillary refill. Absent: tenderness, pedal edema, joint swelling, calf tenderness Back exam: Present: normal inspection Neurological exam: Present: alert, oriented X3, CN II-XII intact Psychiatric exam: Present: normal affect, normal mood Skin exam: Present: warm, dry, intact, normal color. Absent: rash Course Vital Signs 06/07/19 06/07/19 06/07/19 12:58 14:15 14:45 Temperature 98 F Pulse Rate 131 H 127 H Respiratory 18 18 Rate Blood Pressure 137/90 146/64 121/78 O2 Sat by Pulse 99 99 Oximetry 06/07/19 06/07/19 14:49 14:57 Temperature Pulse Rate 120 H 111 H Respiratory 18 Rate Blood Pressure 137/90 O2 Sat by Pulse 100 Oximetry Medical Decision Making - Medical Decision Making 34 year old female presents today for concern for fever, sore throat. Patient is positive for influenza. Patient does not want tamiflu. Patient Given motrin and tylenol and work note. Eating and drinking in ED. Appears in no distress. Discussed return parameters. - Lab Data Lab Results 06/07/19 Range/Units 13:02 Influenza Type A RNA Not Detected (Not Detectd) Influenza Type B (PCR) Detected H (Not Detectd) Disposition Clinical Impression: Influenza B Disposition: HOME SELF-CARE Condition: Good Instructions (If sedation given, give patient instructions): Influenza (ED) Additional Instructions: Please use medication as discussed. Alternating Motrin and Tylenol. Please follow up with family doctor if symptoms have not improved over the next two days. Please return to the emergency room if your symptoms increase or worsen or for any other concerns. Prescriptions: Ondansetron Odt [Zofran Odt] 4 mg PO Q8HR PRN #8 tab PRN Reason: Pain Is patient prescribed a controlled substance at d/c from ED?: No Referrals: Jairo Conroy MD [Primary Care Provider] - 1-2 days Time of Disposition: 14:29
[2019-06-07 14:51] VITALS: BP 137/90
[2019-06-07 14:57] VITALS: PULSE 111
== END 2019-06-07 14:58 | disposition home or self-care (01) ==
LOC: EC 12:56
DX: J10.1 Influenza due to other identified influenza virus with other respiratory manifestations (principal); E10.40 Type 1 diabetes mellitus with diabetic neuropathy, unspecified; F41.9 Anxiety disorder, unspecified; F32.9 Major depressive disorder, single episode, unspecified; Z79.4 Long term (current) use of insulin
CPT/HCPCS: 87502; 99284

== ENCOUNTER 2019-06-13 07:51 | Inpatient (IN) | payer OTHER ==
[2019-06-13] MEDS ORDERED: SODIUM CHLORIDE 0.9% 2,000 ML IV STA (07:59)
[2019-06-13] MEDS ORDERED: diphenhydrAMINE 50 MG/ML 1 ML VIAL IVP STA (08:03)
[2019-06-13] MEDS ORDERED: METOCLOPRAMIDE 5 MG/ML 2 ML VIAL IVP STA (08:03)
[2019-06-13 08:27] LABS: Basophils # (A) 0.1 k/uL (0-0.2); Basophils % (A) 0 %; Eosinophils % (A) 0 %; HCT 44.9 % (34.0-46.0); Hypochromasia Slight; Lymphocytes # (A) 1.2 k/uL (1.0-4.8); Lymphocytes % (A) 6 %; MCH 28.8 pg (25.0-35.0); MCHC 31.1 g/dL (31.0-37.0); MCV 92.6 fL (80.0-100.0); Mean Platelet Volume 8.6; Monocytes # (A) 0.5 k/uL (0-1.0); Monocytes % (A) 3 %; Neutrophils % (A) 90 %; Platelet Count 428 k/uL (150-450); RBC 4.85 m/uL (3.80-5.40); RDW 12.1 % (11.5-15.5); WBC 19.9 k/uL (3.8-10.6)
[2019-06-13 08:44] LABS: ALT 12 U/L (4-34); AST 18 U/L (14-36); African American GFR (CKD) >90 (>60 ml/min/1.73 sqM); Albumin 4.3 g/dL (3.5-5.0); Alkaline Phosphatase 260 U/L (38-126); Blood Urea Nitrogen 12 mg/dL (7-17); Calcium 8.9 mg/dL (8.4-10.2); Chloride 104 mmol/L (98-107); Glucose 479 mg/dL (74-99); Non-African American GFR(CKD) >90 (>60 ml/min/1.73 sqM); Potassium 5.3 mmol/L (3.5-5.1); Sodium 137 mmol/L (137-145); Total Bilirubin 0.7 mg/dL (0.2-1.3); Total Protein 8.6 g/dL (6.3-8.2)
[2019-06-13 08:52] LABS: Appearance,Urine Cloudy (Clear); Bilirubin,Urine Negative (Negative); Blood,Urine Trace (Negative); Color,Urine Light Yellow; Glucose,Urine (UA) 4+ (Negative); Hyaline Casts,Urine 4 /lpf (0-2); Leukocyte Esterase,Urine Negative (Negative); Mucus,Urine Rare /hpf; Nitrite,Urine Negative (Negative); PH, Urine 5.5 (5.0-8.0); Protein,Urine 2+ (Negative); RBC,Urine 1 /hpf (0-5); Specific Gravity,Urine 1.019 (1.001-1.035); Squamous Epithelial Cell,Urine 18 /hpf (0-4); Urobilinogen,Urine <2.0 mg/dL (<2.0); WBC,Urine 2 /hpf (0-5)
[2019-06-13 08:55] LABS: Ketones,Urine 4+ (Negative)
[2019-06-13 09:10] LABS: Carbon Dioxide <5 mmol/L (22-30)
--- NOTE | 2019-06-13 09:10 | XR ---
EXAMINATION TYPE: XR chest 2V DATE OF EXAM: 06/13/2019 COMPARISON: Chest x-ray February 15, 2019 HISTORY: Cough. TECHNIQUE: Frontal and lateral views of the chest are obtained. FINDINGS: There is patchy airspace opacity right lung base just above the diaphragm on frontal view near overlying EKG leads less well-seen on lateral view. Left lung is clear. No pleural effusion or p neumothorax seen bilaterally. The cardiac silhouette size is within normal limits. The osseous str uctures are intact. Interval removal of overlying bra strap. IMPRESSION: New focal right basilar acute pneumonic infiltrate felt present.
[2019-06-13] MEDS ORDERED: INSULIN REGULAR BOLUS (FROM DRIP BAG) IV ONE (09:20)
[2019-06-13 09:22] LABS: VBG PH 6.98 (7.31-7.41)
[2019-06-13] MEDS ORDERED: AZITHROMYCIN 500 MG in SODIUM CHLORIDE 0.9% 250 ML IVPB STA (09:22)
[2019-06-13] MEDS ORDERED: SODIUM CHLORIDE 0.9% 1,000 ML IV ONE ×2 (09:25→13:31)
[2019-06-13] MEDS: SODIUM CHLORIDE 0.9% 1,000 ML IV SCH ×3 (09:39→23:54)
[2019-06-13] MEDS: INSULIN REGULAR 100 UNIT in SODIUM CHLORIDE 0.9% 100 ML IV SCH (09:57)
--- NOTE | 2019-06-13 09:58 | ED ---
General Adult HPI - General Chief complaint: Nausea/Vomiting/Diarrhea Stated complaint: Vomiting Time Seen by Provider: 06/13/19 07:55 Source: patient, EMS, RN notes reviewed Mode of arrival: EMS Limitations: no limitations - History of Present Illness Initial comments: 34-year-old female presents emergency Department chief complaint of nausea vomiting, generalized weakness. Patient states she just doesn't feel well. She was diagnosed with influenza the last week. States the last 24 hours she has been vomiting and keep anything down and. Patient states her blood sugars elevated she has not taken anything for her diabetes and which she normally takes insulin. Patient states that she feels very dehydrated, weak feeling she does feel like her heart has been recent denies any current significant chest pain. - Related Data Home Medications Medication Instructions Recorded Confirmed ALPRAZolam [Xanax] 0.25 mg PO DAILY PRN 10/21/17 02/15/19 Escitalopram [Lexapro] 10 mg PO DAILY PRN 10/21/17 02/15/19 Insulin Lispro [Admelog] See Protocol SQ CONTINUOUS 02/15/19 02/15/19 Previous Rx's Medication Instructions Recorded Ibuprofen [Motrin] 600 mg PO Q8HR PRN #30 tab 08/26/18 Sulfamethox-Tmp 800-160Mg [Bactrim 1 tab PO Q12HR #20 tab 02/17/19 DS 800-160 mg] carBAMazepine [carBAMazepine ER] 100 mg PO BID #18 tab.er.12h 05/24/19 Ondansetron Odt [Zofran Odt] 4 mg PO Q8HR PRN #8 tab 06/07/19 Allergies Allergy/AdvReac Type Severity Reaction Status Date / Time No Known Allergies Allergy Verified 06/07/19 13:00 Review of Systems ROS Statement: Those systems with pertinent positive or pertinent negative responses have been documented in the HPI. ROS Other: All systems not noted in ROS Statement are negative. Past Medical History Past Medical History: Diabetes Mellitus, Syncope Additional Past Medical History / Comment(s): IDDM type I, DKA, neuropathy bilateral legs/feet, chronic low back pain, bilateral leg pain, migraines, L ovarian cysts, chronic constipation. History of Any Multi-Drug Resistant Organisms: MRSA Date of last positivie culture/infection: 02/15/19 MDRO Source:: Head Past Surgical History: Tubal Ligation, Uterine Ablation Additional Past Surgical History / Comment(s): 12/22/17 colonoscopy-normal, LAPAROSCOPIC REMOVAL TUBE AND OVARY-Right d/t endometriosis, D&C, HYSTEROSCOPY, NOVASURE ABLATION 2016. 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 Past Psychological History: Anxiety, Depression Smoking Status: Never smoker Past Alcohol Use History: None Reported Past Drug Use History: None Reported - Past Family History Mother Family Medical History: Rheumatoid Arthritis (RA) Additional Family Medical History / Comment(s): Mother is 63 yrs old. Father Family Medical History: Cancer, Diabetes Mellitus, Deep Vein Thrombosis (DVT), Hypertension Additional Family Medical History / Comment(s): THROAT CA- of but pt does not know at what age. General Exam Limitations: no limitations General appearance: alert, anxious, in distress, other (Patient looks ill- appearing) Head exam: Present: atraumatic, normocephalic, normal inspection Eye exam: Present: normal appearance, PERRL, EOMI. Absent: scleral icterus, conjunctival injection, periorbital swelling ENT exam: Present: normal oropharynx, mucous membranes dry, TM's normal bilaterally. Absent: normal exam, mucous membranes moist Neck exam: Present: normal inspection, full ROM. Absent: tenderness, meningismus, lymphadenopathy Respiratory exam: Present: normal lung sounds bilaterally. Absent: respiratory distress, wheezes, rales, rhonchi, stridor Cardiovascular Exam: Present: normal rhythm, tachycardia, normal heart sounds. Absent: systolic murmur, diastolic murmur, rubs, gallop, clicks Neurological exam: Present: alert, oriented X3, CN II-XII intact Course Vital Signs 06/13/19 06/13/19 06/13/19 07:54 08:46 09:18 Temperature 98.9 F Pulse Rate 140 H 133 H 134 H Respiratory 18 18 18 Rate Blood Pressure 152/92 164/89 145/85 O2 Sat by Pulse 99 100 99 Oximetry - Reevaluation(s) Reevaluation #1: 06/13/19 10:36 Initial evaluation patient's labs, EKG, x-ray all of IV fluids ordered. Reevaluation #2: 06/13/19 10:36 Dr. Mahajan did discuss the case with Dr. 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 EKG Findings - EKG Comments: EKG Findings:: EKG performed at 8:06 sinus tachycardia with rate of 141. 26 QRS 78 QT/QTC 362/554 Procedures - [place] Protocol (Time Out) Nurse: Allyson Kwong Medical Decision Making - Medical Decision Making Patient's case discussed with Dr rivera, and ICU Dr. hennessy who accepts admission to ICU for DKA, severe acidosis. Patient was started in DKA protocol with repeat labs, IV fluids and insulin drip - Lab Data Result diagrams: 06/13/19 08:14 06/13/19 08:14 Lab Results 06/13/19 06/13/19 06/13/19 Range/Units 08:14 08:14 08:14 WBC 19.9 H (3.8-10.6) k/uL RBC 4.85 (3.80-5.40) m/uL Hgb 14.0 (11.4-16.0) gm/dL Hct 44.9 (34.0-46.0) % MCV 92.6 (80.0-100.0) fL MCH 28.8 (25.0-35.0) pg MCHC 31.1 (31.0-37.0) g/dL RDW 12.1 (11.5-15.5) % Plt Count 428 (150-450) k/uL Neutrophils % 90 % Lymphocytes % 6 % Monocytes % 3 % Eosinophils % 0 % Basophils % 0 % Neutrophils # 18.0 H (1.3-7.7) k/uL Lymphocytes # 1.2 (1.0-4.8) k/uL Monocytes # 0.5 (0-1.0) k/uL Eosinophils # 0.0 (0-0.7) k/uL Basophils # 0.1 (0-0.2) k/uL Hypochromasia Slight VBG pH (7.31-7.41) VBG pCO2 (37-51) mmHg VBG HCO3 (24-28) mmol/L Sodium 137 (137-145) mmol/L Potassium 5.3 H (3.5-5.1) mmol/L Chloride 104 (98-107) mmol/L Carbon Dioxide <5 L* (22-30) mmol/L Anion Gap mmol/L BUN 12 (7-17) mg/dL Creatinine 0.62 (0.52-1.04) mg/dL Est GFR (CKD-EPI)AfAm >90 (>60 ml/min/1.73 sqM) Est GFR (CKD-EPI)NonAf >90 (>60 ml/min/1.73 sqM) Glucose 479 H (74-99) mg/dL POC Glucose (mg/dL) (75-99) mg/dL POC Glu Accreditation Manager ID Plasma Lactic Acid Silvino 2.6 H* (0.7-2.0) mmol/L Calcium 8.9 (8.4-10.2) mg/dL Total Bilirubin 0.7 (0.2-1.3) mg/dL AST 18 (14-36) U/L ALT 12 (4-34) U/L Alkaline Phosphatase 260 H (38-126) U/L Total Protein 8.6 H (6.3-8.2) g/dL Albumin 4.3 (3.5-5.0) g/dL Lipase 80 (23-300) U/L Urine Color Urine Appearance (Clear) Urine pH (5.0-8.0) Ur Specific [place] (1.001-1.035) Urine Protein (Negative) Urine Glucose (UA) (Negative) Urine Ketones (Negative) Urine Blood (Negative) Urine Nitrite (Negative) Urine Bilirubin (Negative) Urine Urobilinogen (<2.0) mg/dL Ur Leukocyte Esterase (Negative) Urine RBC (0-5) /hpf Urine WBC (0-5) /hpf Ur Squamous Epith Cells (0-4) /hpf Hyaline Casts (0-2) /lpf Urine Mucus (None) /hpf Acetone, Qual (Negative) 06/13/19 06/13/19 06/13/19 Range/Units 08:14 08:14 08:28 WBC (3.8-10.6) k/uL RBC (3.80-5.40) m/uL Hgb (11.4-16.0) gm/dL Hct (34.0-46.0) % MCV (80.0-100.0) fL MCH (25.0-35.0) pg MCHC (31.0-37.0) g/dL RDW (11.5-15.5) % Plt Count (150-450) k/uL Neutrophils % % Lymphocytes % % Monocytes % % Eosinophils % % Basophils % % Neutrophils # (1.3-7.7) k/uL Lymphocytes # (1.0-4.8) k/uL Monocytes # (0-1.0) k/uL Eosinophils # (0-0.7) k/uL Basophils # (0-0.2) k/uL Hypochromasia VBG pH 6.98 L* (7.31-7.41) VBG pCO2 23 L (37-51) mmHg VBG HCO3 5 L* (24-28) mmol/L Sodium (137-145) mmol/L Potassium (3.5-5.1) mmol/L Chloride (98-107) mmol/L Carbon Dioxide (22-30) mmol/L Anion Gap mmol/L BUN (7-17) mg/dL Creatinine (0.52-1.04) mg/dL Est GFR (CKD-EPI)AfAm (>60 ml/min/1.73 sqM) Est GFR (CKD-EPI)NonAf (>60 ml/min/1.73 sqM) Glucose (74-99) mg/dL POC Glucose (mg/dL) (75-99) mg/dL POC Glu Accreditation Manager ID Plasma Lactic Acid Silvino (0.7-2.0) mmol/L Calcium (8.4-10.2) mg/dL Total Bilirubin (0.2-1.3) mg/dL AST (14-36) U/L ALT (4-34) U/L Alkaline Phosphatase (38-126) U/L Total Protein (6.3-8.2) g/dL Albumin (3.5-5.0) g/dL Lipase (23-300) U/L Urine Color Light Yellow Urine Appearance Cloudy H (Clear) Urine pH 5.5 (5.0-8.0) Ur Specific [place] 1.019 (1.001-1.035) Urine Protein 2+ H (Negative) Urine Glucose (UA) 4+ H (Negative) Urine Ketones 4+ H (Negative) Urine Blood Trace H (Negative) Urine Nitrite Negative (Negative) Urine Bilirubin Negative (Negative) Urine Urobilinogen <2.0 (<2.0) mg/dL Ur Leukocyte Esterase Negative (Negative) Urine RBC 1 (0-5) /hpf Urine WBC 2 (0-5) /hpf Ur Squamous Epith Cells 18 H (0-4) /hpf Hyaline Casts 4 H (0-2) /lpf Urine Mucus Rare H (None) /hpf Acetone, Qual Positive (Negative) 06/13/19 Range/Units 09:51 WBC (3.8-10.6) k/uL RBC (3.80-5.40) m/uL Hgb (11.4-16.0) gm/dL Hct (34.0-46.0) % MCV (80.0-100.0) fL MCH (25.0-35.0) pg MCHC (31.0-37.0) g/dL RDW (11.5-15.5) % Plt Count (150-450) k/uL Neutrophils % % Lymphocytes % % Monocytes % % Eosinophils % % Basophils % % Neutrophils # (1.3-7.7) k/uL Lymphocytes # (1.0-4.8) k/uL Monocytes # (0-1.0) k/uL Eosinophils # (0-0.7) k/uL Basophils # (0-0.2) k/uL Hypochromasia VBG pH (7.31-7.41) VBG pCO2 (37-51) mmHg VBG HCO3 (24-28) mmol/L Sodium (137-145) mmol/L Potassium (3.5-5.1) mmol/L Chloride (98-107) mmol/L Carbon Dioxide (22-30) mmol/L Anion Gap mmol/L BUN (7-17) mg/dL Creatinine (0.52-1.04) mg/dL Est GFR (CKD-EPI)AfAm (>60 ml/min/1.73 sqM) Est GFR (CKD-EPI)NonAf (>60 ml/min/1.73 sqM) Glucose (74-99) mg/dL POC Glucose (mg/dL) 382 H (75-99) mg/dL POC Glu Accreditation Manager ID Allyson Kwong Plasma Lactic Acid Silvino (0.7-2.0) mmol/L Calcium (8.4-10.2) mg/dL Total Bilirubin (0.2-1.3) mg/dL AST (14-36) U/L ALT (4-34) U/L Alkaline Phosphatase (38-126) U/L Total Protein (6.3-8.2) g/dL Albumin (3.5-5.0) g/dL Lipase (23-300) U/L Urine Color Urine Appearance (Clear) Urine pH (5.0-8.0) Ur Specific [place] (1.001-1.035) Urine Protein (Negative) Urine Glucose (UA) (Negative) Urine Ketones (Negative) Urine Blood (Negative) Urine Nitrite (Negative) Urine Bilirubin (Negative) Urine Urobilinogen (<2.0) mg/dL Ur Leukocyte Esterase (Negative) Urine RBC (0-5) /hpf Urine WBC (0-5) /hpf Ur Squamous Epith Cells (0-4) /hpf Hyaline Casts (0-2) /lpf Urine Mucus (None) /hpf Acetone, Qual (Negative) Critical Care Time Critical Care Time: Yes Total Critical Care Time: 40 Critical Care Time: Total 40 minutes of critical care time were used to initially evaluated the patient, reviewed past medical history, medications vitals. Labs EKG and chest x-ray ordered there is evidence of pneumonia on chest x-ray and antibiotics were ordered including Rocephin and azithromycin. Patient found to be severely acidotic related to DKA, 3 L of normal saline were given, patient was started on insulin/DKA protocol including fluids and insulin and repeat labs. Patient's case discussed with ICU, admitting facility practice specialist. Disposition Clinical Impression: DKA (diabetic ketoacidoses), Pneumonia Disposition: ADMITTED IP TO THIS HOSP Condition: Critical Referrals: Jairo Conroy MD [Primary Care Provider] - 1-2 days
[2019-06-13 10:10] LABS: Glucose,Whole Blood 382 mg/dL (75-99)
[2019-06-13 10:39] LABS: Glucose,Whole Blood 352 mg/dL (75-99)
--- NOTE | 2019-06-13 11:45 | P.HPIM ---
History of Present Illness This is a pleasant 34 years old female with past medical history of type 1 diabetes mellitus, Diabetic neuropathy, chronic low back pain, migraines, left ovarian cyst, constipation, MRSA infection. History of anxiety and depression. She's uses insulin pump. Last that she had recurrent nausea vomiting, she vomited about 7 time that is why she came to the hospital. However over the last 2 days she has been having cough with yellow-green phlegm with chest pain on coughing only and dyspnea. She has her a tear DIAGNOSED WITH INFLUENZA ABOUT 2 WEEKS AGO. On admission patient is febrile but tachycardic with heart rate 133-140, blood pressure 164/89. PT of 19.9 K, VBG pH is 6.9, sodium 137, potassium 5.3, glucose is elevated at 479, elevated lactic acid at 2.6, liver enzymes AST and ALT not elevated. Urinalysis looks concentrated urine with glucose and ketonuria. Acetone is positive. Chest x-ray: New right basal infiltrate by radiologist. EKG: Sinus tachycardia at 141, with a QTC 554 The emergency room patient was started on Zithromax, Rocephin, and insulin drip Review of Systems CONSTITUTIONAL: No fever, no malaise, no fatigue. HEENT: No recent visual problems or hearing problems. Denied any sore throat. CARDIOVASCULAR: No orthopnea, PND, no palpitations, no syncope. PULMONARY: no hemoptysis. GASTROINTESTINAL: Normoactive bowel sounds. NEUROLOGICAL: No headaches, no weakness, no numbness. HEMATOLOGICAL: Denies any bleeding or petechiae. GENITOURINARY: Denies any burning micturition, frequency, or urgency. MUSCULOSKELETAL/RHEUMATOLOGICAL: Denies any joint pain, swelling, or any muscle pain. ENDOCRINE: Denies any polyuria or polydipsia. Past Medical History Past Medical History: Diabetes Mellitus, Syncope Additional Past Medical History / Comment(s): IDDM type I, DKA, neuropathy bilateral legs/feet, chronic low back pain, bilateral leg pain, migraines, L ovarian cysts, chronic constipation. History of Any Multi-Drug Resistant Organisms: MRSA Date of last positivie culture/infection: 02/15/19 MDRO Source:: Head Past Surgical History: Tubal Ligation, Uterine Ablation Additional Past Surgical History / Comment(s): 12/22/17 colonoscopy-normal, LAPAROSCOPIC REMOVAL TUBE AND OVARY-Right d/t endometriosis, D&C, HYSTEROSCOPY, NOVASURE ABLATION 2016. 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 Past Psychological History: Anxiety, Depression Smoking Status: Never smoker Past Alcohol Use History: None Reported Past Drug Use History: None Reported - Past Family History Mother Family Medical History: Rheumatoid Arthritis (RA) Additional Family Medical History / Comment(s): Mother is 63 yrs old. Father Family Medical History: Cancer, Diabetes Mellitus, Deep Vein Thrombosis (DVT), Hypertension Additional Family Medical History / Comment(s): THROAT CA- of but pt does not know at what age. Medications and Allergies Home Medications Medication Instructions Recorded Confirmed Type ALPRAZolam [Xanax] 0.25 mg PO DAILY PRN 10/21/17 02/15/19 History Escitalopram [Lexapro] 10 mg PO DAILY PRN 10/21/17 02/15/19 History Ibuprofen [Motrin] 600 mg PO Q8HR PRN #30 tab 08/26/18 02/15/19 Rx Insulin Lispro [Admelog] See Protocol SQ CONTINUOUS 02/15/19 02/15/19 History Sulfamethox-Tmp 800-160Mg [Bactrim 1 tab PO Q12HR #20 tab 02/17/19 Rx DS 800-160 mg] carBAMazepine [carBAMazepine ER] 100 mg PO BID #18 tab.er.12h 05/24/19 Rx Ondansetron Odt [Zofran Odt] 4 mg PO Q8HR PRN #8 tab 06/07/19 Rx Allergies Allergy/AdvReac Type Severity Reaction Status Date / Time No Known Allergies Allergy Verified 06/07/19 13:00 Physical Exam Vitals: Vital Signs Temp Pulse Resp BP Pulse Ox 06/13/19 10:30 98.9 F 123 H 19 140/88 100 06/13/19 10:00 135 H 20 140/80 100 06/13/19 09:30 137 H 20 145/85 99 06/13/19 09:18 134 H 18 145/85 99 06/13/19 09:00 98.7 F 135 H 19 164/89 100 06/13/19 08:46 133 H 18 164/89 100 06/13/19 08:30 140 H 18 150/89 100 06/13/19 08:14 133 H 18 152/92 95 06/13/19 07:54 98.9 F 140 H 18 152/92 99 Intake and Output 06/12/19 06/13/19 06/13/19 22:59 06:59 14:59 Other: Weight 51.71 kg GENERAL: The patient is alert and oriented x3, not in any acute distress. Well developed, well nourished. HEENT: Pupils are round and equally reacting to light. EOMI. No scleral icterus. No conjunctival pallor. Normocephalic, atraumatic. No pharyngeal erythema. No thyromegaly. CARDIOVASCULAR: S1 and S2 present. No murmurs, rubs, or gallops. PULMONARY: Chest is clear to auscultation, no wheezing or crackles. ABDOMEN: Soft, nontender, nondistended, normoactive bowel sounds. No palpable organomegaly. MUSCULOSKELETAL: No joint swelling or deformity. EXTREMITIES: No cyanosis, clubbing, or pedal edema. NEUROLOGICAL: Gross neurological examination did not reveal any focal deficits. SKIN: No rashes. No petechiae Results CBC & Chem 7: 06/13/19 08:14 06/13/19 08:14 Labs: Abnormal Lab Results - Last 24 Hours (Table) 06/13/19 06/13/19 06/13/19 Range/Units 08:14 08:14 08:14 WBC 19.9 H (3.8-10.6) k/uL Neutrophils # 18.0 H (1.3-7.7) k/uL VBG pH (7.31-7.41) VBG pCO2 (37-51) mmHg VBG HCO3 (24-28) mmol/L Potassium 5.3 H (3.5-5.1) mmol/L Carbon Dioxide <5 L* (22-30) mmol/L Glucose 479 H (74-99) mg/dL POC Glucose (mg/dL) (75-99) mg/dL Plasma Lactic Acid Silvino 2.6 H* (0.7-2.0) mmol/L Alkaline Phosphatase 260 H (38-126) U/L Total Protein 8.6 H (6.3-8.2) g/dL Urine Appearance (Clear) Urine Protein (Negative) Urine Glucose (UA) (Negative) Urine Ketones (Negative) Urine Blood (Negative) Ur Squamous Epith Cells (0-4) /hpf Hyaline Casts (0-2) /lpf Urine Mucus (None) /hpf 06/13/19 06/13/19 06/13/19 Range/Units 08:14 08:28 09:51 WBC (3.8-10.6) k/uL Neutrophils # (1.3-7.7) k/uL VBG pH 6.98 L* (7.31-7.41) VBG pCO2 23 L (37-51) mmHg VBG HCO3 5 L* (24-28) mmol/L Potassium (3.5-5.1) mmol/L Carbon Dioxide (22-30) mmol/L Glucose (74-99) mg/dL POC Glucose (mg/dL) 382 H (75-99) mg/dL Plasma Lactic Acid Silvino (0.7-2.0) mmol/L Alkaline Phosphatase (38-126) U/L Total Protein (6.3-8.2) g/dL Urine Appearance Cloudy H (Clear) Urine Protein 2+ H (Negative) Urine Glucose (UA) 4+ H (Negative) Urine Ketones 4+ H (Negative) Urine Blood Trace H (Negative) Ur Squamous Epith Cells 18 H (0-4) /hpf Hyaline Casts 4 H (0-2) /lpf Urine Mucus Rare H (None) /hpf 06/13/19 Range/Units 10:38 WBC (3.8-10.6) k/uL Neutrophils # (1.3-7.7) k/uL VBG pH (7.31-7.41) VBG pCO2 (37-51) mmHg VBG HCO3 (24-28) mmol/L Potassium (3.5-5.1) mmol/L Carbon Dioxide (22-30) mmol/L Glucose (74-99) mg/dL POC Glucose (mg/dL) 352 H (75-99) mg/dL Plasma Lactic Acid Silvino (0.7-2.0) mmol/L Alkaline Phosphatase (38-126) U/L Total Protein (6.3-8.2) g/dL Urine Appearance (Clear) Urine Protein (Negative) Urine Glucose (UA) (Negative) Urine Ketones (Negative) Urine Blood (Negative) Ur Squamous Epith Cells (0-4) /hpf Hyaline Casts (0-2) /lpf Urine Mucus (None) /hpf Thrombosis Risk Factor Assmnt - Choose All That Apply Any of the Below Risk Factors Present?: Yes Each Factor Represents 1 point: Serious lung disease incl. pneumonia (< 1month) Other Risk Factors: No Other congenital or acquired thrombophilia - If yes, enter type in comment: No Thrombosis Risk Factor Assessment Total Risk Factor Score: 1 Thrombosis Risk Factor Assessment Level: Low Risk Assessment and Plan Assessment: Diabetic ketoacidosis Possible right lower lobe pneumonia, mostly committee acquired pneumonia. Rule out influenza Elevated lactic acid Dehydration Type 1 diabetes mellitus, uncontrolled with hyperglycemia Chronic low back pain Migraines History of left ovarian cyst Constipation Anxiety and depression Plan: This is a pleasant 34 years old female who presents with BKA, continue with insulin drip and fluids with replacing electrolytes as per protocol. Monitor sugar. Follow-up recommendation by critical care team. Labs and medication were reviewed.. Continue same treatment. Continue with symptomatic treatment. Resume home medication. Monitor lytes and vitals. DVT and GI prophylaxis. Further recommendations of the clinical course of the patient DVT prophylaxis: Subcutaneous heparin GI Prophylaxis: Pepcid PT/OT: Pending Prognosis is guarded
[2019-06-13 11:54] LABS: Glucose,Whole Blood 310 mg/dL (75-99)
[2019-06-13 12:50] LABS: African American GFR (CKD) >90 (>60 ml/min/1.73 sqM); Anion Gap 15 mmol/L; Blood Urea Nitrogen 11 mg/dL (7-17); Chloride 117 mmol/L (98-107); Glucose 284 mg/dL (74-99); Non-African American GFR(CKD) >90 (>60 ml/min/1.73 sqM); Phosphorus 2.4 mg/dL (2.5-4.5); Potassium 5.2 mmol/L (3.5-5.1); Sodium 140 mmol/L (137-145)
[2019-06-13 12:52] LABS: Carbon Dioxide 8 mmol/L (22-30)
[2019-06-13 12:57] LABS: Glucose,Whole Blood 247 mg/dL (75-99)
[2019-06-13] MEDS: D5-0.45% NACL WITH KCL 20MEQ/L 1,000 ML IV SCH ×2 (13:12→20:13)
--- NOTE | 2019-06-13 13:48 | P.CNPUL ---
History of Present Illness Consult date: 06/13/19 Requesting physician: Eddie E Shikha Chief complaint: DKA, right lower lobe pneumonia, influenza B History of present illness: 34-year-old white female patient of Dr. Conroy with known history of type 1 diabetes, diabetic neuropathy, chronic low back pain, migraine headaches, anxiety, depression, lifetime nonsmoker who presented to the hospital this morning on 06/13/2019 complaints of weakness, nausea, vomiting. Patient's son had influenza infection last week and patient thought she was also infected. She denied any fever or chills, however did complain of cough and chest congestion and inability to bring up any sputum. In the last 24 hours she has not been able to keep anything down, vomiting several times. She is normally on insulin pump, she checks her sugars 3 times daily he states her sugars have been running elevated. Patient significantly tachycardic on presentation, but afebrile, with normal blood pressures, LAB work showed significant anion gap metabolic acidosis, with CO2 of less than 5, venous blood gas was drawn showing pH of 6.98, pCO2 of 23, and bicarb of 5, white blood cell, was 19.9, hemoglobin is 14, sodium is 140, potassium is 5.3, BUN of 12, creatinine 0.62, serum glucose was 478, serum acetone was positive, serum hCG was negative, and urinalysis showed 2+ protein, 4+ glucose and 4+ ketones, but no evidence of infection, serum acetone was positive, influenza screen was positive for influenza B. Chest x-ray showed new focal right basilar acute pneumonic infiltrate. Patient was started on IV hydration, she received 2 L and IV fluid boluses in the emergency department, she was started on insulin infusion per DKA protocol, and started on Tamiflu and Rocephin and Zithromax. She was transferred to the intensive care unit for further monitoring, and were consulted for intensive care management. Review of Systems All systems: negative Constitutional: Reports malaise, Reports weakness, Denies chills, Denies fever Eyes: denies blurred vision, denies pain Ears, nose, mouth and throat: Denies headache, Denies sore throat Cardiovascular: Denies chest pain, Denies shortness of breath Respiratory: Reports congestion, Reports cough, Reports dyspnea Gastrointestinal: Reports abdominal pain, Reports nausea, Reports vomiting, Denies diarrhea Genitourinary: Denies dysuria, Denies hematuria Musculoskeletal: Denies myalgias Integumentary: Denies pruritus, Denies rash Neurological: Denies numbness, Denies weakness Psychiatric: Denies anxiety, Denies depression Endocrine: Denies fatigue, Denies weight change Past Medical History Past Medical History: Diabetes Mellitus, Syncope Additional Past Medical History / Comment(s): IDDM type I, DKA, neuropathy bilateral legs/feet, chronic low back pain, bilateral leg pain, migraines, L ovarian cysts, chronic constipation. History of Any Multi-Drug Resistant Organisms: MRSA Date of last positivie culture/infection: 02/15/19 MDRO Source:: Head Past Surgical History: Tubal Ligation, Uterine Ablation Additional Past Surgical History / Comment(s): 12/22/17 colonoscopy-normal, LAPAROSCOPIC REMOVAL TUBE AND OVARY-Right d/t endometriosis, D&C, HYSTEROSCOPY, NOVASURE ABLATION 2015. 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 Past Psychological History: Anxiety, Depression Smoking Status: Never smoker Past Alcohol Use History: None Reported Past Drug Use History: None Reported - Past Family History Mother Family Medical History: Rheumatoid Arthritis (RA) Additional Family Medical History / Comment(s): Mother is 63 yrs old. Father Family Medical History: Cancer, Diabetes Mellitus, Deep Vein Thrombosis (DVT), Hypertension Additional Family Medical History / Comment(s): THROAT CA- of but pt does not know at what age. Medications and Allergies Home Medications Medication Instructions Recorded Confirmed Type ALPRAZolam [Xanax] 0.25 mg PO DAILY PRN 10/21/17 06/13/19 History Escitalopram [Lexapro] 10 mg PO DAILY PRN 10/21/17 06/13/19 History Insulin Lispro [Admelog] See Protocol SQ CONTINUOUS 02/15/19 06/13/19 History Amitriptyline HCl [Elavil] 10 mg PO HS 06/13/19 06/13/19 History Loratadine [Claritin] 10 mg PO DAILY PRN 06/13/19 06/13/19 History Allergies Allergy/AdvReac Type Severity Reaction Status Date / Time No Known Allergies Allergy Verified 06/13/19 11:46 Physical Exam Vitals: Vital Signs Temp Pulse Resp BP Pulse Ox 06/13/19 12:30 128 H 25 H 127/87 97 06/13/19 12:00 97.0 F L 141 H 25 H 156/99 97 06/13/19 11:30 144 H 29 H 156/99 97 06/13/19 11:00 142 H 29 H 153/95 97 06/13/19 10:30 98.9 F 123 H 19 140/88 100 06/13/19 10:00 135 H 20 140/80 100 06/13/19 09:30 137 H 20 145/85 99 06/13/19 09:18 134 H 18 145/85 99 06/13/19 09:00 98.7 F 135 H 19 164/89 100 06/13/19 08:46 133 H 18 164/89 100 06/13/19 08:30 140 H 18 150/89 100 06/13/19 08:14 133 H 18 152/92 95 06/13/19 07:54 98.9 F 140 H 18 152/92 99 Intake and Output 06/12/19 06/13/19 06/13/19 22:59 06:59 14:59 Intake Total 650 Output Total 1000 Balance -350 Intake: Intake, IV Titration 650 Amount Azithromycin 500 mg In 250 Sodium Chloride 0.9% 250 ml @ 250 mls/hr IVPB DAILY@1000 [facility] Rx#: [id number] Sodium Chloride 0.9% 1, 400 000 ml @ 200 mls/hr IV . Q5H [facility] Rx#:[id number] Output: Urine 1000 Other: Voiding Method Bedside Commode Weight 51.71 kg GENERAL EXAM: Alert, weak, thin-looking 34-year-old white female on room air, with a pulse ox of 97%, comfortable in no apparent distress. HEAD: Normocephalic/atraumatic. EYES: Normal reaction of pupils, equal size. Conjunctiva pink, sclera white. NOSE: Clear with pink turbinates. THROAT: No erythema or exudates. NECK: No masses, no JVD, no thyroid enlargement, no adenopathy. CHEST: No chest wall deformity. Symmetrical expansion. LUNGS: Equal air entry with limited crackles bilateral bases, wheeze, rhonchi or dullness. CVS: Regular rate and rhythm, normal S1 and S2, no gallops, no murmurs, no rubs ABDOMEN: Soft, nontender. No hepatosplenomegaly, normal bowel sounds, no guarding or rigidity. EXTREMITIES: No clubbing, no edema, no cyanosis, 2+ pulses and upper and lower extremities. MUSCULOSKELETAL: Muscle strength and tone normal. SPINE: No scoliosis or deformity SKIN: No rashes CENTRAL NERVOUS SYSTEM: Alert and oriented -3. No focal deficits, tone is normal in all 4 extremities. PSYCHIATRIC: Alert and oriented -3. Appropriate affect. Intact judgment and insight. Results - Laboratory Findings CBC and BMP: 06/13/19 08:14 06/13/19 11:59 Abnormal lab findings: Abnormal Labs 06/13/19 06/13/19 06/13/19 08:14 08:14 08:14 WBC 19.9 H Neutrophils # 18.0 H VBG pH VBG pCO2 VBG HCO3 Potassium 5.3 H Chloride Carbon Dioxide <5 L* Creatinine Glucose 479 H POC Glucose (mg/dL) Plasma Lactic Acid Silvino 2.6 H* Phosphorus Alkaline Phosphatase 260 H Total Protein 8.6 H Urine Appearance Urine Protein Urine Glucose (UA) Urine Ketones Urine Blood Ur Squamous Epith Cells Hyaline Casts Urine Mucus Influenza Type B (PCR) 06/13/19 06/13/19 06/13/19 08:14 08:28 09:51 WBC Neutrophils # VBG pH 6.98 L* VBG pCO2 23 L VBG HCO3 5 L* Potassium Chloride Carbon Dioxide Creatinine Glucose POC Glucose (mg/dL) 382 H Plasma Lactic Acid Silvino Phosphorus Alkaline Phosphatase Total Protein Urine Appearance Cloudy H Urine Protein 2+ H Urine Glucose (UA) 4+ H Urine Ketones 4+ H Urine Blood Trace H Ur Squamous Epith Cells 18 H Hyaline Casts 4 H Urine Mucus Rare H Influenza Type B (PCR) 06/13/19 06/13/19 06/13/19 10:38 11:05 11:53 WBC Neutrophils # VBG pH VBG pCO2 VBG HCO3 Potassium Chloride Carbon Dioxide Creatinine Glucose POC Glucose (mg/dL) 352 H 310 H Plasma Lactic Acid Silvino Phosphorus Alkaline Phosphatase Total Protein Urine Appearance Urine Protein Urine Glucose (UA) Urine Ketones Urine Blood Ur Squamous Epith Cells Hyaline Casts Urine Mucus Influenza Type B (PCR) Detected H 06/13/19 06/13/19 11:59 12:56 WBC Neutrophils # VBG pH VBG pCO2 VBG HCO3 Potassium 5.2 H Chloride 117 H Carbon Dioxide 8 L* Creatinine 0.47 L Glucose 284 H POC Glucose (mg/dL) 247 H Plasma Lactic Acid Silvino Phosphorus 2.4 L Alkaline Phosphatase Total Protein Urine Appearance Urine Protein Urine Glucose (UA) Urine Ketones Urine Blood Ur Squamous Epith Cells Hyaline Casts Urine Mucus Influenza Type B (PCR) - Diagnostic Findings Chest x-ray: report reviewed, image reviewed Assessment and Plan Plan: Assessment: #1. Acute diabetic ketoacidosis #2. Influenza B infection #3. Acute right lower lobe pneumonia #4. Anion gap metabolic acidosis related to DKA #5. Diabetes mellitus type 1 with diabetic neuropathy #6. Mild lactic acidosis improved with IV hydration #7. Anxiety/depression #8. Ever smoker #9. Chronic low back pain #10. Laparoscopic tubal ligation, and right oophorectomy #11. Hx endometriosis Plan: Continue insulin infusion, we will give the patient additional 1 L bolus, continue checking electrolytes and renal profile every 4 hours, continue Tamiflu, Rocephin and Zithromax, send a sputum culture. We'll start GI/DVT prophylaxis, will do chest x-ray in the morning. Hemodynamic patient remains stable. Clear liquid diet and advance as tolerated, we'll continue to closely follow. Will remain in the ICU for further monitoring I performed a history & physical examination of the patient and discussed their management with my nurse practitioner, Dania Negron. I reviewed the nurse practitioner's note and agree with the documented findings and plan of care. Lung sounds are positive for diminished breath sounds. The findings and the impression was discussed with the patient. I attest to the documentation by the nurse practitioner. Time with Patient: Greater than 30
[2019-06-13 14:51] LABS: Glucose,Whole Blood 205 mg/dL (75-99)
[2019-06-13] MEDS ORDERED: BENZOCAINE/MENTHOL LOZENG 1 EACH LOZENGE MUCOUS MEM PRN (15:11)
[2019-06-13] MEDS: OSELTAMIVIR 75 MG CAP PO SCH ×2 (15:43→21:10)
[2019-06-13] MEDS: HEPARIN SODIUM,PORCINE 5,000 UNIT/ML 1 ML VIAL SQ SCH (15:49)
[2019-06-13] MEDS: ONDANSETRON 4 MG/2 ML VIAL IVP PRN ×2 (16:00→22:05)
[2019-06-13 16:08] LABS: Glucose,Whole Blood 204 mg/dL (75-99)
[2019-06-13 16:33] LABS: African American GFR (CKD) >90 (>60 ml/min/1.73 sqM); Anion Gap 13 mmol/L; Blood Urea Nitrogen 8 mg/dL (7-17); Carbon Dioxide 12 mmol/L (22-30); Chloride 113 mmol/L (98-107); Glucose 216 mg/dL (74-99); Non-African American GFR(CKD) >90 (>60 ml/min/1.73 sqM); Phosphorus 1.1 mg/dL (2.5-4.5); Potassium 4.4 mmol/L (3.5-5.1); Sodium 138 mmol/L (137-145)
[2019-06-13 17:14] LABS: Glucose,Whole Blood 229 mg/dL (75-99)
[2019-06-13 18:08] LABS: Glucose,Whole Blood 211 mg/dL (75-99)
[2019-06-13] MEDS ORDERED: Phosphorus Replacement Protoco 1 EACH MISC MISCELLANE PRN ×2 (18:47→19:24)
[2019-06-13 19:21] LABS: Glucose,Whole Blood 229 mg/dL (75-99)
[2019-06-13 20:13] LABS: Glucose,Whole Blood 210 mg/dL (75-99)
[2019-06-13] MEDS ORDERED: PROCHLORPERAZINE 5 MG TAB PO PRN (20:52)
[2019-06-13] MEDS: SODIUM PHOSPHATE 10 MMOL in SODIUM CHLORIDE 0.9% 250 ML IVPB SCH ×2 (21:01→23:06)
[2019-06-13 21:07] LABS: Glucose,Whole Blood 178 mg/dL (75-99)
[2019-06-13] MEDS: KETOROLAC 30 MG/ML 1 ML VIAL IVP PRN (21:10)
[2019-06-13] MEDS: FAMOTIDINE 20 MG/2 ML VIAL IV SCH (22:05)
[2019-06-13 22:11] LABS: Glucose,Whole Blood 192 mg/dL (75-99)
[2019-06-13 23:12] LABS: Glucose,Whole Blood 168 mg/dL (75-99)
[2019-06-14] MEDS: HEPARIN SODIUM,PORCINE 5,000 UNIT/ML 1 ML VIAL SQ SCH ×4 (00:01→23:57)
[2019-06-14 00:04] LABS: Glucose,Whole Blood 181 mg/dL (75-99)
[2019-06-14 00:58] LABS: Glucose,Whole Blood 188 mg/dL (75-99)
[2019-06-14] MEDS: SODIUM PHOSPHATE 10 MMOL in SODIUM CHLORIDE 0.9% 250 ML IVPB SCH (01:11)
[2019-06-14] MEDS: INSULIN REGULAR 100 UNIT in SODIUM CHLORIDE 0.9% 100 ML IV SCH ×2 (01:12→21:02)
[2019-06-14 01:59] LABS: Glucose,Whole Blood 155 mg/dL (75-99)
[2019-06-14] MEDS: SODIUM CHLORIDE 0.9% 1,000 ML IV SCH ×5 (02:43→19:58)
[2019-06-14 02:59] LABS: Glucose,Whole Blood 140 mg/dL (75-99)
[2019-06-14] MEDS: D5-0.45% NACL WITH KCL 20MEQ/L 1,000 ML IV SCH ×4 (03:02→21:02)
[2019-06-14 04:04] LABS: Glucose,Whole Blood 125 mg/dL (75-99)
[2019-06-14 04:58] LABS: Glucose,Whole Blood 131 mg/dL (75-99)
[2019-06-14 05:22] LABS: Basophils # (A) 0.1 k/uL (0-0.2); Basophils % (A) 1 %; Eosinophils % (A) 0 %; HCT 32.5 % (34.0-46.0); Lymphocytes # (A) 1.1 k/uL (1.0-4.8); Lymphocytes % (A) 8 %; MCH 29.8 pg (25.0-35.0); MCHC 33.7 g/dL (31.0-37.0); MCV 88.5 fL (80.0-100.0); Mean Platelet Volume 7.9; Monocytes # (A) 1.1 k/uL (0-1.0); Monocytes % (A) 8 %; Neutrophils # (A) 11.1 k/uL (1.3-7.7); Neutrophils % (A) 82 %; Platelet Count 303 k/uL (150-450); RBC 3.68 m/uL (3.80-5.40); RDW 12.4 % (11.5-15.5); WBC 13.5 k/uL (3.8-10.6)
[2019-06-14 05:34] LABS: African American GFR (CKD) >90 (>60 ml/min/1.73 sqM); Anion Gap 9 mmol/L; Blood Urea Nitrogen 5 mg/dL (7-17); Calcium 7.7 mg/dL (8.4-10.2); Carbon Dioxide 14 mmol/L (22-30); Chloride 111 mmol/L (98-107); Glucose 132 mg/dL (74-99); Non-African American GFR(CKD) >90 (>60 ml/min/1.73 sqM); Potassium 3.7 mmol/L (3.5-5.1); Sodium 134 mmol/L (137-145)
[2019-06-14 06:15] LABS: Glucose,Whole Blood 172 mg/dL (75-99)
[2019-06-14 07:04] LABS: Glucose,Whole Blood 167 mg/dL (75-99)
[2019-06-14 07:59] LABS: Glucose,Whole Blood 324 mg/dL (75-99)
[2019-06-14] MEDS ORDERED: PANTOPRAZOLE 40 MG/10 ML VIAL IVP SCH (09:00)
[2019-06-14 09:16] LABS: Glucose,Whole Blood 305 mg/dL (75-99)
[2019-06-14] MEDS: FAMOTIDINE 20 MG/2 ML VIAL IV SCH (09:36)
[2019-06-14] MEDS: OSELTAMIVIR 75 MG CAP PO SCH ×2 (09:36→21:03)
[2019-06-14] MEDS: ONDANSETRON 4 MG/2 ML VIAL IVP PRN (09:47)
[2019-06-14] MEDS ORDERED: AZITHROMYCIN 500 MG in SODIUM CHLORIDE 0.9% 250 ML IVPB SCH (10:00)
[2019-06-14] MEDS: KETOROLAC 30 MG/ML 1 ML VIAL IVP PRN ×2 (10:22→21:04)
--- NOTE | 2019-06-14 11:23 | P.PN ---
Subjective This is a pleasant 34 years old female with past medical history of type 1 diabetes mellitus, Diabetic neuropathy, chronic low back pain, migraines, left ovarian cyst, constipation, MRSA infection. History of anxiety and depression. She's uses insulin pump. Last that she had recurrent nausea vomiting, she vomited about 7 time that is why she came to the hospital. However over the last 2 days she has been having cough with yellow-green phlegm with chest pain on coughing only and dyspnea. She has her a tear DIAGNOSED WITH INFLUENZA ABOUT 2 WEEKS AGO. On admission patient is febrile but tachycardic with heart rate 133-140, blood pressure 164/89. PT of 19.9 K, VBG pH is 6.9, sodium 137, potassium 5.3, glucose is elevated at 479, elevated lactic acid at 2.6, liver enzymes AST and ALT not elevated. Urinalysis looks concentrated urine with glucose and ketonuria. Acetone is positive. Chest x-ray: New right basal infiltrate by radiologist. EKG: Sinus tachycardia at 141, with a QTC 554 The emergency room patient was started on Zithromax, Rocephin, and insulin drip 06/14/2019, she is saturating 95-96% on room air, she is tachypneic 22-26 and tachycardic 118 Patient states that her breathing is better today however she still have persistent cough was bothering her. Leukocytosis is coming down to 13.5 K, hemoglobin 11. Sodium 134, creatinine 0.2, sugar is better, patient remains on insulin drip with the plan to switch it to sliding scale. Continue with hydration. Currently patient on Tamiflu, ceftriaxone and Zithromax. Patient is followed closely by pulmonary/critical care team. Add Robitussin for cough Review of systems CONSTITUTIONAL: No fever, no malaise, no fatigue. HEENT: No recent visual problems or hearing problems. Denied any sore throat. CARDIOVASCULAR: No orthopnea, PND, no palpitations, no syncope. PULMONARY: no hemoptysis. GASTROINTESTINAL: Normoactive bowel sounds. NEUROLOGICAL: No headaches, no weakness, no numbness. HEMATOLOGICAL: Denies any bleeding or petechiae. GENITOURINARY: Denies any burning micturition, frequency, or urgency. MUSCULOSKELETAL/RHEUMATOLOGICAL: Denies any joint pain, swelling, or any muscle pain. ENDOCRINE: Denies any polyuria or polydipsia. Objective - Vital Signs Vital signs: Vital Signs Temp 97.7 F 06/14/19 08:00 Pulse 118 H 06/14/19 10:00 Resp 24 06/14/19 10:00 BP 119/85 06/14/19 10:00 Pulse Ox 95 06/14/19 10:00 Intake & Output 06/13/19 06/14/19 06/14/19 18:59 06:59 18:59 Intake Total 1720 2766.794 455.485 Output Total 3760 2700 1000 Balance -2040 66.794 -544.515 Weight 51.71 kg 92.3 kg Intake: IV 2525 450 D5-0.45% NaCl with KCl 1650 450 20Meq/l 1,000 ml @ 150 mls/hr IV .Q6H40M [facility] Rx# :[id number] Sodium Phosphate 10 mmol 875 In Sodium Chloride 0.9% 250 ml @ 125 mls/hr IVPB Q2H [facility] Rx#:[id number] Intake, IV Titration 1600 241.794 5.485 Amount Azithromycin 500 mg In 250 Sodium Chloride 0.9% 250 ml @ 250 mls/hr IVPB DAILY@1000 [facility] Rx#: [id number] D5-0.45% NaCl with KCl 750 150 20Meq/l 1,000 ml @ 150 mls/hr IV .Q6H40M [facility] Rx# :[id number] Insulin Regular 100 unit 91.794 5.485 In Sodium Chloride 0.9% 100 ml @ 0.1 UNITS/KG/HR 5.223 mls/hr IV .[id number] [facility] Rx#:[id number] Sodium Chloride 0.9% 1, 600 000 ml @ 200 mls/hr IV . Q5H [facility] Rx#:[id number] Oral 120 Output: Urine 3700 2700 1000 Emesis 60 Other: Voiding Method Bedside Commode Bedside Commode Bedside Commode - Exam GENERAL: The patient is alert and oriented x3, not in any acute distress. Well developed, well nourished. HEENT: Pupils are round and equally reacting to light. EOMI. No scleral icterus. No conjunctival pallor. Normocephalic, atraumatic. No pharyngeal erythema. No thyromegaly. CARDIOVASCULAR: S1 and S2 present. No murmurs, rubs, or gallops. PULMONARY: Chest is clear to auscultation, no wheezing or crackles. ABDOMEN: Soft, nontender, nondistended, normoactive bowel sounds. No palpable organomegaly. MUSCULOSKELETAL: No joint swelling or deformity. EXTREMITIES: No cyanosis, clubbing, or pedal edema. NEUROLOGICAL: Gross neurological examination did not reveal any focal deficits. SKIN: No rashes. No petechiae - Labs CBC & Chem 7: 06/14/19 04:50 06/14/19 04:59 Labs: Abnormal Lab Results - Last 24 Hours (Table) 06/13/19 06/13/19 06/13/19 Range/Units 08:14 11:05 11:53 WBC (3.8-10.6) k/uL RBC (3.80-5.40) m/uL Hgb (11.4-16.0) gm/dL Hct (34.0-46.0) % Neutrophils # (1.3-7.7) k/uL Monocytes # (0-1.0) k/uL Sodium (137-145) mmol/L Potassium (3.5-5.1) mmol/L Chloride (98-107) mmol/L Carbon Dioxide (22-30) mmol/L BUN (7-17) mg/dL Creatinine (0.52-1.04) mg/dL Glucose (74-99) mg/dL POC Glucose (mg/dL) 310 H (75-99) mg/dL Hemoglobin A1c 17.0 H (4.0-6.0) % Calcium (8.4-10.2) mg/dL Phosphorus (2.5-4.5) mg/dL Influenza Type B (PCR) Detected H (Not Detectd) 06/13/19 06/13/19 06/13/19 Range/Units 11:59 12:56 14:50 WBC (3.8-10.6) k/uL RBC (3.80-5.40) m/uL Hgb (11.4-16.0) gm/dL Hct (34.0-46.0) % Neutrophils # (1.3-7.7) k/uL Monocytes # (0-1.0) k/uL Sodium (137-145) mmol/L Potassium 5.2 H (3.5-5.1) mmol/L Chloride 117 H (98-107) mmol/L Carbon Dioxide 8 L* (22-30) mmol/L BUN (7-17) mg/dL Creatinine 0.47 L (0.52-1.04) mg/dL Glucose 284 H (74-99) mg/dL POC Glucose (mg/dL) 247 H 205 H (75-99) mg/dL Hemoglobin A1c (4.0-6.0) % Calcium (8.4-10.2) mg/dL Phosphorus 2.4 L (2.5-4.5) mg/dL Influenza Type B (PCR) (Not Detectd) 06/13/19 06/13/19 06/13/19 Range/Units 16:06 16:08 17:12 WBC (3.8-10.6) k/uL RBC (3.80-5.40) m/uL Hgb (11.4-16.0) gm/dL Hct (34.0-46.0) % Neutrophils # (1.3-7.7) k/uL Monocytes # (0-1.0) k/uL Sodium (137-145) mmol/L Potassium (3.5-5.1) mmol/L Chloride 113 H (98-107) mmol/L Carbon Dioxide 12 L (22-30) mmol/L BUN (7-17) mg/dL Creatinine 0.40 L (0.52-1.04) mg/dL Glucose 216 H (74-99) mg/dL POC Glucose (mg/dL) 204 H 229 H (75-99) mg/dL Hemoglobin A1c (4.0-6.0) % Calcium (8.4-10.2) mg/dL Phosphorus 1.1 L (2.5-4.5) mg/dL Influenza Type B (PCR) (Not Detectd) 06/13/19 06/13/19 06/13/19 Range/Units 18:06 19:20 20:12 WBC (3.8-10.6) k/uL RBC (3.80-5.40) m/uL Hgb (11.4-16.0) gm/dL Hct (34.0-46.0) % Neutrophils # (1.3-7.7) k/uL Monocytes # (0-1.0) k/uL Sodium (137-145) mmol/L Potassium (3.5-5.1) mmol/L Chloride (98-107) mmol/L Carbon Dioxide (22-30) mmol/L BUN (7-17) mg/dL Creatinine (0.52-1.04) mg/dL Glucose (74-99) mg/dL POC Glucose (mg/dL) 211 H 229 H 210 H (75-99) mg/dL Hemoglobin A1c (4.0-6.0) % Calcium (8.4-10.2) mg/dL Phosphorus (2.5-4.5) mg/dL Influenza Type B (PCR) (Not Detectd) 06/13/19 06/13/19 06/13/19 Range/Units 21:06 22:10 23:10 WBC (3.8-10.6) k/uL RBC (3.80-5.40) m/uL Hgb (11.4-16.0) gm/dL Hct (34.0-46.0) % Neutrophils # (1.3-7.7) k/uL Monocytes # (0-1.0) k/uL Sodium (137-145) mmol/L Potassium (3.5-5.1) mmol/L Chloride (98-107) mmol/L Carbon Dioxide (22-30) mmol/L BUN (7-17) mg/dL Creatinine (0.52-1.04) mg/dL Glucose (74-99) mg/dL POC Glucose (mg/dL) 178 H 192 H 168 H (75-99) mg/dL Hemoglobin A1c (4.0-6.0) % Calcium (8.4-10.2) mg/dL Phosphorus (2.5-4.5) mg/dL Influenza Type B (PCR) (Not Detectd) 06/14/19 06/14/19 06/14/19 Range/Units 00:02 00:56 01:58 WBC (3.8-10.6) k/uL RBC (3.80-5.40) m/uL Hgb (11.4-16.0) gm/dL Hct (34.0-46.0) % Neutrophils # (1.3-7.7) k/uL Monocytes # (0-1.0) k/uL Sodium (137-145) mmol/L Potassium (3.5-5.1) mmol/L Chloride (98-107) mmol/L Carbon Dioxide (22-30) mmol/L BUN (7-17) mg/dL Creatinine (0.52-1.04) mg/dL Glucose (74-99) mg/dL POC Glucose (mg/dL) 181 H 188 H 155 H (75-99) mg/dL Hemoglobin A1c (4.0-6.0) % Calcium (8.4-10.2) mg/dL Phosphorus (2.5-4.5) mg/dL Influenza Type B (PCR) (Not Detectd) 06/14/19 06/14/19 06/14/19 Range/Units 02:57 04:02 04:50 WBC 13.5 H (3.8-10.6) k/uL RBC 3.68 L (3.80-5.40) m/uL Hgb 11.0 L D (11.4-16.0) gm/dL Hct 32.5 L (34.0-46.0) % Neutrophils # 11.1 H (1.3-7.7) k/uL Monocytes # 1.1 H (0-1.0) k/uL Sodium (137-145) mmol/L Potassium (3.5-5.1) mmol/L Chloride (98-107) mmol/L Carbon Dioxide (22-30) mmol/L BUN (7-17) mg/dL Creatinine (0.52-1.04) mg/dL Glucose (74-99) mg/dL POC Glucose (mg/dL) 140 H 125 H (75-99) mg/dL Hemoglobin A1c (4.0-6.0) % Calcium (8.4-10.2) mg/dL Phosphorus (2.5-4.5) mg/dL Influenza Type B (PCR) (Not Detectd) 06/14/19 06/14/19 06/14/19 Range/Units 04:56 04:59 06:13 WBC (3.8-10.6) k/uL RBC (3.80-5.40) m/uL Hgb (11.4-16.0) gm/dL Hct (34.0-46.0) % Neutrophils # (1.3-7.7) k/uL Monocytes # (0-1.0) k/uL Sodium 134 L (137-145) mmol/L Potassium (3.5-5.1) mmol/L Chloride 111 H (98-107) mmol/L Carbon Dioxide 14 L (22-30) mmol/L BUN 5 L (7-17) mg/dL Creatinine 0.26 L (0.52-1.04) mg/dL Glucose 132 H (74-99) mg/dL POC Glucose (mg/dL) 131 H 172 H (75-99) mg/dL Hemoglobin A1c (4.0-6.0) % Calcium 7.7 L (8.4-10.2) mg/dL Phosphorus (2.5-4.5) mg/dL Influenza Type B (PCR) (Not Detectd) 06/14/19 06/14/19 06/14/19 Range/Units 07:02 07:58 09:14 WBC (3.8-10.6) k/uL RBC (3.80-5.40) m/uL Hgb (11.4-16.0) gm/dL Hct (34.0-46.0) % Neutrophils # (1.3-7.7) k/uL Monocytes # (0-1.0) k/uL Sodium (137-145) mmol/L Potassium (3.5-5.1) mmol/L Chloride (98-107) mmol/L Carbon Dioxide (22-30) mmol/L BUN (7-17) mg/dL Creatinine (0.52-1.04) mg/dL Glucose (74-99) mg/dL POC Glucose (mg/dL) 167 H 324 H 305 H (75-99) mg/dL Hemoglobin A1c (4.0-6.0) % Calcium (8.4-10.2) mg/dL Phosphorus (2.5-4.5) mg/dL Influenza Type B (PCR) (Not Detectd) Assessment and Plan Assessment: Diabetic ketoacidosis right lower lobe pneumonia, mostly committee acquired pneumonia. Influenza B infection Systemic inflammatory response with tachycardia and tachypnea, with sepsis secondary to above. Present on admission Elevated lactic acid. Back to normal Dehydration. Improving Type 1 diabetes mellitus, uncontrolled with hyperglycemia Chronic low back pain Migraines History of left ovarian cyst Constipation Anxiety and depression Plan: This is a pleasant 34 years old female who presents with BKA, continue with insulin drip and fluids with replacing electrolytes as per protocol. Monitor sugar. Follow-up recommendation by critical care team. Labs and medication were reviewed.. Continue same treatment. Continue with symptomatic treatment. Resume home medication. Monitor lytes and vitals. DVT and GI prophylaxis. Further recommendations of the clinical course of the patient DVT prophylaxis: Subcutaneous heparin GI Prophylaxis: Pepcid PT/OT: Pending Prognosis is guarded
[2019-06-14 11:31] LABS: Glucose,Whole Blood 278 mg/dL (75-99)
[2019-06-14 12:06] LABS: Glucose,Whole Blood 259 mg/dL (75-99)
--- NOTE | 2019-06-14 12:26 | P.PN ---
Subjective Progress Note Date: 06/14/19 Principal diagnosis: Acute diabetic ketoacidosis 34-year-old white female patient of Dr. Conroy with known history of type 1 diabetes, diabetic neuropathy, chronic low back pain, migraine headaches, anxiety, depression, lifetime nonsmoker who presented to the hospital this morning on 06/13/2019 complaints of weakness, nausea, vomiting. Patient's son had influenza infection last week and patient thought she was also infected. She denied any fever or chills, however did complain of cough and chest congestion and inability to bring up any sputum. In the last 24 hours she has not been able to keep anything down, vomiting several times. She is normally on insulin pump, she checks her sugars 3 times daily he states her sugars have been running elevated. Patient significantly tachycardic on presentation, but afebrile, with normal blood pressures, LAB work showed significant anion gap metabolic acidosis, with CO2 of less than 5, venous blood gas was drawn showing pH of 6.98, pCO2 of 23, and bicarb of 5, white blood cell, was 19.9, hemoglobin is 14, sodium is 140, potassium is 5.3, BUN of 12, creatinine 0.62, serum glucose was 478, serum acetone was positive, serum hCG was negative, and urinalysis showed 2+ protein, 4+ glucose and 4+ ketones, but no evidence of infe ction, serum acetone was positive, influenza screen was positive for influenza B. Chest x-ray showed new focal right basilar acute pneumonic infiltrate. Patient was started on IV hydration, she received 2 L and IV fluid boluses in the emergency department, she was started on insulin infusion per DKA protocol, and started on Tamiflu and Rocephin and Zithromax. She was transferred to the intensive care unit for further monitoring, and were consulted for intensive care management. Reevaluated today on 06/14/2019, patient remains in the ICU, remains on the DKA protocol. Remains on Tamiflu and antibiotics. Her anion gap has closed, remains on insulin drip, and her blood sugar remains a bit elevated in the range of 300. Overall the patient is feeling better, responding well to IV fluids as well as insulin. Electrolytes are relatively normal anion gap is only 9. WBC count is 13.5 hemoglobin is 11. Chest x-ray on admission showed right basilar pneumonic infiltrate Objective - Vital Signs Vital signs: Vital Signs Temp 97.7 F 06/14/19 08:00 Pulse 118 H 06/14/19 10:00 Resp 24 06/14/19 10:00 BP 119/85 06/14/19 10:00 Pulse Ox 95 06/14/19 10:00 Intake & Output 06/13/19 06/14/19 06/14/19 18:59 06:59 18:59 Intake Total 1720 2766.794 455.485 Output Total 3760 2700 1000 Balance -2040 66.794 -544.515 Weight 51.71 kg 92.3 kg Intake: IV 2525 450 D5-0.45% NaCl with KCl 1650 450 20Meq/l 1,000 ml @ 150 mls/hr IV .Q6H40M [facility] Rx# :[id number] Sodium Phosphate 10 mmol 875 In Sodium Chloride 0.9% 250 ml @ 125 mls/hr IVPB Q2H [facility] Rx#:[id number] Intake, IV Titration 1600 241.794 5.485 Amount Azithromycin 500 mg In 250 Sodium Chloride 0.9% 250 ml @ 250 mls/hr IVPB DAILY@1000 [facility] Rx#: [id number] D5-0.45% NaCl with KCl 750 150 20Meq/l 1,000 ml @ 150 mls/hr IV .Q6H40M [facility] Rx# :[id number] Insulin Regular 100 unit 91.794 5.485 In Sodium Chloride 0.9% 100 ml @ 0.1 UNITS/KG/HR 5.223 mls/hr IV .[id number] [facility] Rx#:[id number] Sodium Chloride 0.9% 1, 600 000 ml @ 200 mls/hr IV . Q5H [facility] Rx#:[id number] Oral 120 Output: Urine 3700 2700 1000 Emesis 60 Other: Voiding Method Bedside Commode Bedside Commode Bedside Commode - Exam GENERAL EXAM: Revealed a 34-year-old female in no distress. HEENT: Atraumatic head normocephalic, PERRLA, EOMI, no icterus. CHEST: No chest wall deformity. Symmetrical expansion. LUNGS: Equal air entry with limited crackles bilateral bases, wheeze, rhonchi or dullness. CVS: Regular rate and rhythm, normal S1 and S2, no gallops, no murmurs, no rubs ABDOMEN: Soft, nontender. No hepatosplenomegaly, normal bowel sounds, no guarding or rigidity. EXTREMITIES: No clubbing, no edema, no cyanosis, 2+ pulses and upper and lower extremities. MUSCULOSKELETAL: Muscle strength and tone normal. SKIN: No rashes CENTRAL NERVOUS SYSTEM: Alert and oriented 3 focal neurologic deficits. PSYCHIATRIC: Normal mood, affect and normal mental status examination. - Labs CBC & Chem 7: 06/14/19 04:50 06/14/19 04:59 Labs: Abnormal Lab Results - Last 24 Hours (Table) 06/13/19 06/13/19 06/13/19 Range/Units 08:14 11:59 12:56 WBC (3.8-10.6) k/uL RBC (3.80-5.40) m/uL Hgb (11.4-16.0) gm/dL Hct (34.0-46.0) % Neutrophils # (1.3-7.7) k/uL Monocytes # (0-1.0) k/uL Sodium (137-145) mmol/L Potassium 5.2 H (3.5-5.1) mmol/L Chloride 117 H (98-107) mmol/L Carbon Dioxide 8 L* (22-30) mmol/L BUN (7-17) mg/dL Creatinine 0.47 L (0.52-1.04) mg/dL Glucose 284 H (74-99) mg/dL POC Glucose (mg/dL) 247 H (75-99) mg/dL Hemoglobin A1c 17.0 H (4.0-6.0) % Calcium (8.4-10.2) mg/dL Phosphorus 2.4 L (2.5-4.5) mg/dL 06/13/19 06/13/19 06/13/19 Range/Units 14:50 16:06 16:08 WBC (3.8-10.6) k/uL RBC (3.80-5.40) m/uL Hgb (11.4-16.0) gm/dL Hct (34.0-46.0) % Neutrophils # (1.3-7.7) k/uL Monocytes # (0-1.0) k/uL Sodium (137-145) mmol/L Potassium (3.5-5.1) mmol/L Chloride 113 H (98-107) mmol/L Carbon Dioxide 12 L (22-30) mmol/L BUN (7-17) mg/dL Creatinine 0.40 L (0.52-1.04) mg/dL Glucose 216 H (74-99) mg/dL POC Glucose (mg/dL) 205 H 204 H (75-99) mg/dL Hemoglobin A1c (4.0-6.0) % Calcium (8.4-10.2) mg/dL Phosphorus 1.1 L (2.5-4.5) mg/dL 06/13/19 06/13/19 06/13/19 Range/Units 17:12 18:06 19:20 WBC (3.8-10.6) k/uL RBC (3.80-5.40) m/uL Hgb (11.4-16.0) gm/dL Hct (34.0-46.0) % Neutrophils # (1.3-7.7) k/uL Monocytes # (0-1.0) k/uL Sodium (137-145) mmol/L Potassium (3.5-5.1) mmol/L Chloride (98-107) mmol/L Carbon Dioxide (22-30) mmol/L BUN (7-17) mg/dL Creatinine (0.52-1.04) mg/dL Glucose (74-99) mg/dL POC Glucose (mg/dL) 229 H 211 H 229 H (75-99) mg/dL Hemoglobin A1c (4.0-6.0) % Calcium (8.4-10.2) mg/dL Phosphorus (2.5-4.5) mg/dL 06/13/19 06/13/19 06/13/19 Range/Units 20:12 21:06 22:10 WBC (3.8-10.6) k/uL RBC (3.80-5.40) m/uL Hgb (11.4-16.0) gm/dL Hct (34.0-46.0) % Neutrophils # (1.3-7.7) k/uL Monocytes # (0-1.0) k/uL Sodium (137-145) mmol/L Potassium (3.5-5.1) mmol/L Chloride (98-107) mmol/L Carbon Dioxide (22-30) mmol/L BUN (7-17) mg/dL Creatinine (0.52-1.04) mg/dL Glucose (74-99) mg/dL POC Glucose (mg/dL) 210 H 178 H 192 H (75-99) mg/dL Hemoglobin A1c (4.0-6.0) % Calcium (8.4-10.2) mg/dL Phosphorus (2.5-4.5) mg/dL 06/13/19 06/14/19 06/14/19 Range/Units 23:10 00:02 00:56 WBC (3.8-10.6) k/uL RBC (3.80-5.40) m/uL Hgb (11.4-16.0) gm/dL Hct (34.0-46.0) % Neutrophils # (1.3-7.7) k/uL Monocytes # (0-1.0) k/uL Sodium (137-145) mmol/L Potassium (3.5-5.1) mmol/L Chloride (98-107) mmol/L Carbon Dioxide (22-30) mmol/L BUN (7-17) mg/dL Creatinine (0.52-1.04) mg/dL Glucose (74-99) mg/dL POC Glucose (mg/dL) 168 H 181 H 188 H (75-99) mg/dL Hemoglobin A1c (4.0-6.0) % Calcium (8.4-10.2) mg/dL Phosphorus (2.5-4.5) mg/dL 06/14/19 06/14/19 06/14/19 Range/Units 01:58 02:57 04:02 WBC (3.8-10.6) k/uL RBC (3.80-5.40) m/uL Hgb (11.4-16.0) gm/dL Hct (34.0-46.0) % Neutrophils # (1.3-7.7) k/uL Monocytes # (0-1.0) k/uL Sodium (137-145) mmol/L Potassium (3.5-5.1) mmol/L Chloride (98-107) mmol/L Carbon Dioxide (22-30) mmol/L BUN (7-17) mg/dL Creatinine (0.52-1.04) mg/dL Glucose (74-99) mg/dL POC Glucose (mg/dL) 155 H 140 H 125 H (75-99) mg/dL Hemoglobin A1c (4.0-6.0) % Calcium (8.4-10.2) mg/dL Phosphorus (2.5-4.5) mg/dL 06/14/19 06/14/19 06/14/19 Range/Units 04:50 04:56 04:59 WBC 13.5 H (3.8-10.6) k/uL RBC 3.68 L (3.80-5.40) m/uL Hgb 11.0 L D (11.4-16.0) gm/dL Hct 32.5 L (34.0-46.0) % Neutrophils # 11.1 H (1.3-7.7) k/uL Monocytes # 1.1 H (0-1.0) k/uL Sodium 134 L (137-145) mmol/L Potassium (3.5-5.1) mmol/L Chloride 111 H (98-107) mmol/L Carbon Dioxide 14 L (22-30) mmol/L BUN 5 L (7-17) mg/dL Creatinine 0.26 L (0.52-1.04) mg/dL Glucose 132 H (74-99) mg/dL POC Glucose (mg/dL) 131 H (75-99) mg/dL Hemoglobin A1c (4.0-6.0) % Calcium 7.7 L (8.4-10.2) mg/dL Phosphorus (2.5-4.5) mg/dL 06/14/19 06/14/19 06/14/19 Range/Units 06:13 07:02 07:58 WBC (3.8-10.6) k/uL RBC (3.80-5.40) m/uL Hgb (11.4-16.0) gm/dL Hct (34.0-46.0) % Neutrophils # (1.3-7.7) k/uL Monocytes # (0-1.0) k/uL Sodium (137-145) mmol/L Potassium (3.5-5.1) mmol/L Chloride (98-107) mmol/L Carbon Dioxide (22-30) mmol/L BUN (7-17) mg/dL Creatinine (0.52-1.04) mg/dL Glucose (74-99) mg/dL POC Glucose (mg/dL) 172 H 167 H 324 H (75-99) mg/dL Hemoglobin A1c (4.0-6.0) % Calcium (8.4-10.2) mg/dL Phosphorus (2.5-4.5) mg/dL 06/14/19 06/14/19 06/14/19 Range/Units 09:14 11:30 12:04 WBC (3.8-10.6) k/uL RBC (3.80-5.40) m/uL Hgb (11.4-16.0) gm/dL Hct (34.0-46.0) % Neutrophils # (1.3-7.7) k/uL Monocytes # (0-1.0) k/uL Sodium (137-145) mmol/L Potassium (3.5-5.1) mmol/L Chloride (98-107) mmol/L Carbon Dioxide (22-30) mmol/L BUN (7-17) mg/dL Creatinine (0.52-1.04) mg/dL Glucose (74-99) mg/dL POC Glucose (mg/dL) 305 H 278 H 259 H (75-99) mg/dL Hemoglobin A1c (4.0-6.0) % Calcium (8.4-10.2) mg/dL Phosphorus (2.5-4.5) mg/dL Microbiology - Last 24 Hours (Table) 06/13/19 09:50 Blood Culture - Preliminary Blood No Growth after 24 hours Assessment and Plan Assessment: Impression: Acute diabetic ketoacidosis Acute right lower lobe community-acquired pneumonia Influenza B infection Anion gap metabolic acidosis secondary to DKA History of type 1 diabetes with diabetic neuropathy Recommendation: Continue treatment plan as per protocol. Continue antibiotics. Continue Tamiflu. Continue the DKA protocol. We'll likely transfer out of the ICU later today or in a.m. We'll continue to follow. Time with Patient: Less than 30
[2019-06-14 14:04] LABS: Glucose,Whole Blood 337 mg/dL (75-99)
[2019-06-14 15:25] LABS: Glucose,Whole Blood 246 mg/dL (75-99)
[2019-06-14 18:25] LABS: Glucose,Whole Blood 315 mg/dL (75-99)
[2019-06-14 19:54] LABS: Glucose,Whole Blood 306 mg/dL (75-99)
[2019-06-14] MEDS ORDERED: INSULIN DETEMIR (LEVEMIR) 100 UNIT/ML SYR SQ SCH (21:00)
[2019-06-14] MEDS: guaiFENesin-DM 100-10MG/5ML 10 ML CUP PO SCH (21:03)
[2019-06-14 21:22] LABS: Glucose,Whole Blood 296 mg/dL (75-99)
[2019-06-14 21:55] LABS: Glucose,Whole Blood 266 mg/dL (75-99)
[2019-06-15 00:07] LABS: Glucose,Whole Blood 135 mg/dL (75-99)
[2019-06-15] MEDS: SODIUM CHLORIDE 0.9% 1,000 ML IV SCH ×2 (00:19→06:19)
[2019-06-15 01:17] LABS: Glucose,Whole Blood 136 mg/dL (75-99)
[2019-06-15 02:08] LABS: Glucose,Whole Blood 129 mg/dL (75-99)
[2019-06-15] MEDS: ONDANSETRON 4 MG/2 ML VIAL IVP PRN ×3 (02:10→20:37)
[2019-06-15] MEDS: D5-0.45% NACL WITH KCL 20MEQ/L 1,000 ML IV SCH (04:08)
[2019-06-15] MEDS: guaiFENesin-DM 100-10MG/5ML 10 ML CUP PO SCH ×3 (04:12→20:16)
[2019-06-15 04:22] LABS: Glucose,Whole Blood 147 mg/dL (75-99)
[2019-06-15 05:25] LABS: Basophils % (A) 0 %; Eosinophils % (A) 1 %; HCT 29.8 % (34.0-46.0); Lymphocytes # (A) 1.1 k/uL (1.0-4.8); Lymphocytes % (A) 15 %; MCH 28.9 pg (25.0-35.0); MCHC 33.6 g/dL (31.0-37.0); Mean Platelet Volume 8.1; Monocytes # (A) 0.5 k/uL (0-1.0); Monocytes % (A) 7 %; Neutrophils # (A) 5.9 k/uL (1.3-7.7); Neutrophils % (A) 77 %; Platelet Count 317 k/uL (150-450); RBC 3.47 m/uL (3.80-5.40); RDW 12.3 % (11.5-15.5); WBC 7.7 k/uL (3.8-10.6)
[2019-06-15 05:47] LABS: African American GFR (CKD) >90 (>60 ml/min/1.73 sqM); Anion Gap 5 mmol/L; Blood Urea Nitrogen 6 mg/dL (7-17); Calcium 7.5 mg/dL (8.4-10.2); Carbon Dioxide 20 mmol/L (22-30); Chloride 111 mmol/L (98-107); Glucose 145 mg/dL (74-99); Non-African American GFR(CKD) >90 (>60 ml/min/1.73 sqM); Phosphorus 1.5 mg/dL (2.5-4.5); Potassium 3.9 mmol/L (3.5-5.1); Sodium 136 mmol/L (137-145)
[2019-06-15 05:58] LABS: Glucose,Whole Blood 155 mg/dL (75-99)
[2019-06-15] MEDS: KETOROLAC 30 MG/ML 1 ML VIAL IVP PRN ×2 (06:25→20:36)
[2019-06-15] MEDS: POTASSIUM PHOSPHATE 10 MMOL in SODIUM CHLORIDE 0.9% 250 ML IV SCH ×2 (07:09→08:19)
[2019-06-15 07:28] LABS: Glucose,Whole Blood 180 mg/dL (75-99)
[2019-06-15 08:11] LABS: Glucose,Whole Blood 196 mg/dL (75-99)
[2019-06-15] MEDS: HEPARIN SODIUM,PORCINE 5,000 UNIT/ML 1 ML VIAL SQ SCH ×3 (08:19→23:54)
[2019-06-15] MEDS: PANTOPRAZOLE 40 MG TABLET PO SCH (08:20)
[2019-06-15] MEDS: OSELTAMIVIR 75 MG CAP PO SCH ×2 (08:20→20:16)
[2019-06-15 09:15] LABS: Glucose,Whole Blood 213 mg/dL (75-99)
[2019-06-15] MEDS ORDERED: INSULIN DETEMIR (LEVEMIR) 100 UNIT/ML SYR SQ ONE ×2 (09:30→10:43)
[2019-06-15] MEDS: AZITHROMYCIN 500 MG TAB PO SCH (10:02)
--- NOTE | 2019-06-15 10:46 | P.PN ---
Subjective This is a pleasant 34 years old female with past medical history of type 1 diabetes mellitus, Diabetic neuropathy, chronic low back pain, migraines, left ovarian cyst, constipation, MRSA infection. History of anxiety and depression. She's uses insulin pump. Last that she had recurrent nausea vomiting, she vomited about 7 time that is why she came to the hospital. However over the last 2 days she has been having cough with yellow-green phlegm with chest pain on coughing only and dyspnea. She has her a tear DIAGNOSED WITH INFLUENZA ABOUT 2 WEEKS AGO. On admission patient is febrile but tachycardic with heart rate 133-140, blood pressure 164/89. PT of 19.9 K, VBG pH is 6.9, sodium 137, potassium 5.3, glucose is elevated at 479, elevated lactic acid at 2.6, liver enzymes AST and ALT not elevated. Urinalysis looks concentrated urine with glucose and ketonuria. Acetone is positive. Chest x-ray: New right basal infiltrate by radiologist. EKG: Sinus tachycardia at 141, with a QTC 554 The emergency room patient was started on Zithromax, Rocephin, and insulin drip 06/14/2019, she is saturating 95-96% on room air, she is tachypneic 22-26 and tachycardic 118 Patient states that her breathing is better today however she still have persistent cough was bothering her. Leukocytosis is coming down to 13.5 K, hemoglobin 11. Sodium 134, creatinine 0.2, sugar is better, patient remains on insulin drip with the plan to switch it to sliding scale. Continue with hydration. Currently patient on Tamiflu, ceftriaxone and Zithromax. Patient is followed closely by pulmonary/critical care team. Add Robitussin for cough 06/15/2019 Patient remains in the ICU today she is on insulin drip at 1.375 units per hour, she got Levemir 10 units last night, when going to give one-time dose of Levemir 5 units this morning and decrease the dose tonight to 15 units was insulin sliding scale. Her breathing is stable with no dyspnea or chest pain, cough is easing down after starting Robitussin. Vitals stable and she saturating 98% room air. Labs including CBC is reviewed with unremarkable, BMP is unremarkable. Low phosphorus. Replaced Review of systems CONSTITUTIONAL: No fever, no malaise, no fatigue. HEENT: No recent visual problems or hearing problems. Denied any sore throat. CARDIOVASCULAR: No orthopnea, PND, no palpitations, no syncope. PULMONARY: no hemoptysis. GASTROINTESTINAL: Normoactive bowel sounds. NEUROLOGICAL: No headaches, no weakness, no numbness. HEMATOLOGICAL: Denies any bleeding or petechiae. GENITOURINARY: Denies any burning micturition, frequency, or urgency. MUSCULOSKELETAL/RHEUMATOLOGICAL: Denies any joint pain, swelling, or any muscle pain. ENDOCRINE: Denies any polyuria or polydipsia. Active Medications Generic Name Dose Route Start Last Admin Trade Name Freq PRN Reason Stop Dose Admin Azithromycin 500 mg 06/15/19 10:00 06/15/19 10:02 Zithromax PO 500 mg DAILY@1000 SILVER Administration Benzocaine/Menthol 1 each 06/13/19 15:11 06/13/19 15:47 Cepacol Lozenge MUCOUS MEM 1 each Q4HR PRN Administration sore throat Guaifenesin/Dextromethorphan 10 ml 06/14/19 20:00 06/15/19 10:02 Robitussin Dm PO 10 ml Q8H SILVER Administration Heparin Sodium (Porcine) 5,000 unit 06/13/19 16:00 06/15/19 08:19 Heparin SQ 5,000 unit Q8HR SIVLER Administration Ceftriaxone Sodium 1 gm/ 50 mls @ 100 mls/hr 06/14/19 09:00 06/15/19 08:20 Sodium Chloride IVPB 100 mls/hr Q24HR SILVER Administration Insulin Detemir 5 unit 06/15/19 10:43 Levemir SQ 06/15/19 10:44 ONCE ONE Insulin Detemir 15 unit 06/15/19 21:00 Levemir SQ HS SILVER Ketorolac Tromethamine 15 mg 06/13/19 20:52 06/15/19 06:25 Toradol IVP 06/17/19 20:52 15 mg Q6HR PRN Administration Pain Miscellaneous Information 1 each 06/13/19 18:47 Phosphorus Per Protocol MISCELLANE DAILY PRN Per Protocol Protocol Miscellaneous Information 1 each 06/13/19 19:24 Phosphorus Per Protocol MISCELLANE DAILY PRN Per Protocol Protocol Ondansetron HCl 4 mg 06/13/19 15:56 02/06/20 10:05 Zofran IVP 4 mg Q6HR PRN Administration Nausea And Vomiting Oseltamivir Phosphate 75 mg 06/13/19 13:00 06/15/19 08:20 Tamiflu PO 06/17/19 21:01 75 mg Q12HR SILVER Administration Pantoprazole Sodium 40 mg 06/15/19 09:00 06/15/19 08:20 Protonix PO 40 mg DAILY SILVER Administration Prochlorperazine Maleate 5 mg 06/13/19 20:52 06/14/19 06:14 Compazine PO 5 mg Q8HR PRN Administration Nausea And Vomiting Objective - Vital Signs Vital signs: Vital Signs Temp 97.9 F 06/15/19 04:00 Pulse 95 06/15/19 10:00 Resp 24 06/15/19 10:00 BP 112/72 06/15/19 10:00 Pulse Ox 98 06/15/19 09:00 Intake & Output 06/14/19 06/15/19 06/15/19 18:59 06:59 18:59 Intake Total 9350.942 2309.609 983.113 Output Total 1925 900 500 Balance -151.798 9248.609 483.113 Weight 96 kg Intake: IV 1650 1800 450 D5-0.45% NaCl with KCl 1650 1800 450 20Meq/l 1,000 ml @ 150 mls/hr IV .Q6H40M [facility] Rx# :[id number] Intake, IV Titration 30.017 97.609 233.113 Amount Insulin Regular 100 unit 30.017 97.609 8.113 In Sodium Chloride 0.9% 100 ml @ 0.1 UNITS/KG/HR 5.223 mls/hr IV .[id number] [facility] Rx#:[id number] Potassium Phosphate 10 125 mmol In Sodium Chloride 0 .9% 250 ml @ 125 mls/hr IV Q2H S[facility] Rx#:[id number] cefTRIAXone 1 gm In 100 Sodium Chloride 0.9% 50 ml @ 100 mls/hr IVPB Q24HR SILVER Rx#:[id number] Oral 400 300 Output: Urine 1925 900 500 Other: Voiding Method Bedside Commode Bedside Commode Bedside Commode - Exam GENERAL: The patient is alert and oriented x3, not in any acute distress. Well developed, well nourished. HEENT: Pupils are round and equally reacting to light. EOMI. No scleral icterus. No conjunctival pallor. Normocephalic, atraumatic. No pharyngeal erythema. No thyromegaly. CARDIOVASCULAR: S1 and S2 present. No murmurs, rubs, or gallops. PULMONARY: Chest is clear to auscultation, no wheezing or crackles. ABDOMEN: Soft, nontender, nondistended, normoactive bowel sounds. No palpable organomegaly. MUSCULOSKELETAL: No joint swelling or deformity. EXTREMITIES: No cyanosis, clubbing, or pedal edema. NEUROLOGICAL: Gross neurological examination did not reveal any focal deficits. SKIN: No rashes. No petechiae - Labs CBC & Chem 7: 06/15/19 04:41 06/15/19 04:41 Labs: Abnormal Lab Results - Last 24 Hours (Table) 06/14/19 06/14/19 06/14/19 Range/Units 11:30 12:04 14:02 RBC (3.80-5.40) m/uL Hgb (11.4-16.0) gm/dL Hct (34.0-46.0) % Sodium (137-145) mmol/L Chloride (98-107) mmol/L Carbon Dioxide (22-30) mmol/L BUN (7-17) mg/dL Creatinine (0.52-1.04) mg/dL Glucose (74-99) mg/dL POC Glucose (mg/dL) 278 H 259 H 337 H (75-99) mg/dL Calcium (8.4-10.2) mg/dL Phosphorus (2.5-4.5) mg/dL 06/14/19 06/14/19 06/14/19 Range/Units 15:22 18:15 19:53 RBC (3.80-5.40) m/uL Hgb (11.4-16.0) gm/dL Hct (34.0-46.0) % Sodium (137-145) mmol/L Chloride (98-107) mmol/L Carbon Dioxide (22-30) mmol/L BUN (7-17) mg/dL Creatinine (0.52-1.04) mg/dL Glucose (74-99) mg/dL POC Glucose (mg/dL) 246 H 315 H 306 H (75-99) mg/dL Calcium (8.4-10.2) mg/dL Phosphorus (2.5-4.5) mg/dL 06/14/19 06/14/19 06/14/19 Range/Units 21:11 21:54 23:56 RBC (3.80-5.40) m/uL Hgb (11.4-16.0) gm/dL Hct (34.0-46.0) % Sodium (137-145) mmol/L Chloride (98-107) mmol/L Carbon Dioxide (22-30) mmol/L BUN (7-17) mg/dL Creatinine (0.52-1.04) mg/dL Glucose (74-99) mg/dL POC Glucose (mg/dL) 296 H 266 H 135 H (75-99) mg/dL Calcium (8.4-10.2) mg/dL Phosphorus (2.5-4.5) mg/dL 06/15/19 06/15/19 06/15/19 Range/Units 01:07 02:04 04:11 RBC (3.80-5.40) m/uL Hgb (11.4-16.0) gm/dL Hct (34.0-46.0) % Sodium (137-145) mmol/L Chloride (98-107) mmol/L Carbon Dioxide (22-30) mmol/L BUN (7-17) mg/dL Creatinine (0.52-1.04) mg/dL Glucose (74-99) mg/dL POC Glucose (mg/dL) 136 H 129 H 147 H (75-99) mg/dL Calcium (8.4-10.2) mg/dL Phosphorus (2.5-4.5) mg/dL 06/15/19 06/15/19 06/15/19 Range/Units 04:41 04:41 05:57 RBC 3.47 L (3.80-5.40) m/uL Hgb 10.0 L (11.4-16.0) gm/dL Hct 29.8 L (34.0-46.0) % Sodium 136 L (137-145) mmol/L Chloride 111 H (98-107) mmol/L Carbon Dioxide 20 L (22-30) mmol/L BUN 6 L (7-17) mg/dL Creatinine 0.23 L (0.52-1.04) mg/dL Glucose 145 H (74-99) mg/dL POC Glucose (mg/dL) 155 H (75-99) mg/dL Calcium 7.5 L (8.4-10.2) mg/dL Phosphorus 1.5 L (2.5-4.5) mg/dL 06/15/19 06/15/19 06/15/19 Range/Units 07:16 08:00 09:13 RBC (3.80-5.40) m/uL Hgb (11.4-16.0) gm/dL Hct (34.0-46.0) % Sodium (137-145) mmol/L Chloride (98-107) mmol/L Carbon Dioxide (22-30) mmol/L BUN (7-17) mg/dL Creatinine (0.52-1.04) mg/dL Glucose (74-99) mg/dL POC Glucose (mg/dL) 180 H 196 H 213 H (75-99) mg/dL Calcium (8.4-10.2) mg/dL Phosphorus (2.5-4.5) mg/dL Microbiology - Last 24 Hours (Table) 06/13/19 09:50 Blood Culture - Preliminary Blood No Growth after 24 hours Assessment and Plan Assessment: Diabetic ketoacidosis, anion gap closed right lower lobe pneumonia, mostly committee acquired pneumonia. Influenza B infection Systemic inflammatory response with tachycardia and tachypnea, with sepsis secondary to above. Present on admission Elevated lactic acid. Back to normal Dehydration. Improving Type 1 diabetes mellitus, uncontrolled with hyperglycemia. Hemoglobin A1c is 17% Chronic low back pain Migraines History of left ovarian cyst Constipation Anxiety and depression Plan: This is a pleasant 34 years old female who presents with DKA, switch insulin drip to Levemir. Continue with antibiotics of Rocephin, Tamiflu and Zithromax,. Monitor sugar. Follow-up recommendation by critical care team. Labs and medication were reviewed.. Continue same treatment. Continue with symptomatic treatment. Resume home medication. Monitor lytes and vitals. DVT and GI prophylaxis. Further recommendations of the clinical course of the patient DVT prophylaxis: Subcutaneous heparin GI Prophylaxis: Pepcid PT/OT: Pending Prognosis is guarded
[2019-06-15] MEDS: INSULIN ASPART (NovoLOG) 100 UNIT/ML VIAL SQ SCH ×3 (11:58→20:17)
[2019-06-15 12:06] LABS: Glucose,Whole Blood 183 mg/dL (75-99)
--- NOTE | 2019-06-15 13:52 | P.PN ---
Subjective Progress Note Date: 06/15/19 Principal diagnosis: Acute diabetic ketoacidosis 34-year-old white female patient of Dr. Conroy with known history of type 1 diabetes, diabetic neuropathy, chronic low back pain, migraine headaches, anxiety, depression, lifetime nonsmoker who presented to the hospital this morning on 06/13/2019 complaints of weakness, nausea, vomiting. Patient's son had influenza infection last week and patient thought she was also infected. She denied any fever or chills, however did complain of cough and chest congestion and inability to bring up any sputum. In the last 24 hours she has not been able to keep anything down, vomiting several times. She is normally on insulin pump, she checks her sugars 3 times daily he states her sugars have been running elevated. Patient significantly tachycardic on presentation, but afebrile, with normal blood pressures, LAB work showed significant anion gap metabolic acidosis, with CO2 of less than 5, venous blood gas was drawn showing pH of 6.98, pCO2 of 23, and bicarb of 5, white blood cell, was 19.9, hemoglobin is 14, sodium is 140, potassium is 5.3, BUN of 12, creatinine 0.62, serum glucose was 478, serum acetone was positive, serum hCG was negative, and urinalysis showed 2+ protein, 4+ glucose and 4+ ketones, but no evidence of infe ction, serum acetone was positive, influenza screen was positive for influenza B. Chest x-ray showed new focal right basilar acute pneumonic infiltrate. Patient was started on IV hydration, she received 2 L and IV fluid boluses in the emergency department, she was started on insulin infusion per DKA protocol, and started on Tamiflu and Rocephin and Zithromax. She was transferred to the intensive care unit for further monitoring, and were consulted for intensive care management. Reevaluated today on 06/14/2019, patient remains in the ICU, remains on the DKA protocol. Remains on Tamiflu and antibiotics. Her anion gap has closed, remains on insulin drip, and her blood sugar remains a bit elevated in the range of 300. Overall the patient is feeling better, responding well to IV fluids as well as insulin. Electrolytes are relatively normal anion gap is only 9. WBC count is 13.5 hemoglobin is 11. Chest x-ray on admission showed right basilar pneumonic infiltrate. Patient was seen today on 06/15/2019, remains in the ICU, remains on insulin drip which I plan to discontinue and place on sliding scale insulin as per protocol. Her anion gap has completely closed. Patient is feeling dramatically better, denies any cough wheezing shortness of breath. Blood sugar this morning is 183. WBC count is 7.7 hemoglobin is 10 bicarb is 20 renal profile is normal Objective - Vital Signs Vital signs: Vital Signs Temp 97.9 F 06/15/19 04:00 Pulse 98 06/15/19 12:00 Resp 18 06/15/19 12:00 BP 111/81 06/15/19 12:00 Pulse Ox 96 06/15/19 12:00 Intake & Output 06/14/19 06/15/19 06/15/19 18:59 06:59 18:59 Intake Total 6484.099 9911.609 983.113 Output Total 1925 900 500 Balance -881.695 3842.609 483.113 Weight 96 kg Intake: IV 1650 1800 450 D5-0.45% NaCl with KCl 1650 1800 450 20Meq/l 1,000 ml @ 150 mls/hr IV .Q6H40M [facility] Rx# :[id number] Intake, IV Titration 30.017 97.609 233.113 Amount Insulin Regular 100 unit 30.017 97.609 8.113 In Sodium Chloride 0.9% 100 ml @ 0.1 UNITS/KG/HR 5.223 mls/hr IV .[id number] [facility] Rx#:[id number] Potassium Phosphate 10 125 mmol In Sodium Chloride 0 .9% 250 ml @ 125 mls/hr IV Q2H [facility] Rx#:[id number] cefTRIAXone 1 gm In 100 Sodium Chloride 0.9% 50 ml @ 100 mls/hr IVPB Q24HR SILVER Rx#:[id number] Oral 400 300 Output: Urine 1925 900 500 Other: Voiding Method Bedside Commode Bedside Commode Bedside Commode - Exam GENERAL EXAM: Revealed a 34-year-old female in no distress. On room air. HEENT: Atraumatic head normocephalic, PERRLA, EOMI, no icterus. CHEST: No chest wall deformity. Symmetrical expansion. LUNGS: Equal air entry with limited crackles bilateral bases, wheeze, rhonchi or dullness. CVS: Regular rate and rhythm, normal S1 and S2, no gallops, no murmurs, no rubs ABDOMEN: Soft, nontender. No hepatosplenomegaly, normal bowel sounds, no guarding or rigidity. EXTREMITIES: No clubbing, no edema, no cyanosis, 2+ pulses and upper and lower extremities. MUSCULOSKELETAL: Muscle strength and tone normal. SKIN: No rashes CENTRAL NERVOUS SYSTEM: Alert and oriented 3 focal neurologic deficits. PSYCHIATRIC: Normal mood, affect and normal mental status examination. - Labs CBC & Chem 7: 06/15/19 04:41 06/15/19 04:41 Labs: Abnormal Lab Results - Last 24 Hours (Table) 06/14/19 06/14/19 06/14/19 Range/Units 14:02 15:22 18:15 RBC (3.80-5.40) m/uL Hgb (11.4-16.0) gm/dL Hct (34.0-46.0) % Sodium (137-145) mmol/L Chloride (98-107) mmol/L Carbon Dioxide (22-30) mmol/L BUN (7-17) mg/dL Creatinine (0.52-1.04) mg/dL Glucose (74-99) mg/dL POC Glucose (mg/dL) 337 H 246 H 315 H (75-99) mg/dL Calcium (8.4-10.2) mg/dL Phosphorus (2.5-4.5) mg/dL 06/14/19 06/14/19 06/14/19 Range/Units 19:53 21:11 21:54 RBC (3.80-5.40) m/uL Hgb (11.4-16.0) gm/dL Hct (34.0-46.0) % Sodium (137-145) mmol/L Chloride (98-107) mmol/L Carbon Dioxide (22-30) mmol/L BUN (7-17) mg/dL Creatinine (0.52-1.04) mg/dL Glucose (74-99) mg/dL POC Glucose (mg/dL) 306 H 296 H 266 H (75-99) mg/dL Calcium (8.4-10.2) mg/dL Phosphorus (2.5-4.5) mg/dL 06/14/19 06/15/19 06/15/19 Range/Units 23:56 01:07 02:04 RBC (3.80-5.40) m/uL Hgb (11.4-16.0) gm/dL Hct (34.0-46.0) % Sodium (137-145) mmol/L Chloride (98-107) mmol/L Carbon Dioxide (22-30) mmol/L BUN (7-17) mg/dL Creatinine (0.52-1.04) mg/dL Glucose (74-99) mg/dL POC Glucose (mg/dL) 135 H 136 H 129 H (75-99) mg/dL Calcium (8.4-10.2) mg/dL Phosphorus (2.5-4.5) mg/dL 06/15/19 06/15/19 06/15/19 Range/Units 04:11 04:41 04:41 RBC 3.47 L (3.80-5.40) m/uL Hgb 10.0 L (11.4-16.0) gm/dL Hct 29.8 L (34.0-46.0) % Sodium 136 L (137-145) mmol/L Chloride 111 H (98-107) mmol/L Carbon Dioxide 20 L (22-30) mmol/L BUN 6 L (7-17) mg/dL Creatinine 0.23 L (0.52-1.04) mg/dL Glucose 145 H (74-99) mg/dL POC Glucose (mg/dL) 147 H (75-99) mg/dL Calcium 7.5 L (8.4-10.2) mg/dL Phosphorus 1.5 L (2.5-4.5) mg/dL 06/15/19 06/15/19 06/15/19 Range/Units 05:57 07:16 08:00 RBC (3.80-5.40) m/uL Hgb (11.4-16.0) gm/dL Hct (34.0-46.0) % Sodium (137-145) mmol/L Chloride (98-107) mmol/L Carbon Dioxide (22-30) mmol/L BUN (7-17) mg/dL Creatinine (0.52-1.04) mg/dL Glucose (74-99) mg/dL POC Glucose (mg/dL) 155 H 180 H 196 H (75-99) mg/dL Calcium (8.4-10.2) mg/dL Phosphorus (2.5-4.5) mg/dL 06/15/19 06/15/19 Range/Units 09:13 11:55 RBC (3.80-5.40) m/uL Hgb (11.4-16.0) gm/dL Hct (34.0-46.0) % Sodium (137-145) mmol/L Chloride (98-107) mmol/L Carbon Dioxide (22-30) mmol/L BUN (7-17) mg/dL Creatinine (0.52-1.04) mg/dL Glucose (74-99) mg/dL POC Glucose (mg/dL) 213 H 183 H (75-99) mg/dL Calcium (8.4-10.2) mg/dL Phosphorus (2.5-4.5) mg/dL Microbiology - Last 24 Hours (Table) 06/13/19 09:50 Blood Culture - Preliminary Blood No Growth after 48 hours Assessment and Plan Assessment: Impression: Acute diabetic ketoacidosis Acute right lower lobe community-acquired pneumonia Influenza B infection Anion gap metabolic acidosis secondary to DKA History of type 1 diabetes with diabetic neuropathy Recommendation: Discontinue insulin drip. Continue antibiotics. Continue Tamiflu. Transfer patient to a regular medical floor Consider discharge planning in the next 24 hours. We'll continue to follow. Time with Patient: Less than 30
[2019-06-15 14:37] VITALS: BMI 39.9
[2019-06-15 17:01] LABS: Glucose,Whole Blood 250 mg/dL (75-99)
[2019-06-15 20:05] LABS: Glucose,Whole Blood 213 mg/dL (75-99)
[2019-06-15] MEDS ORDERED: INSULIN DETEMIR (LEVEMIR) 100 UNIT/ML SYR SQ SCH (21:00)
[2019-06-16] MEDS: ONDANSETRON 4 MG/2 ML VIAL IVP PRN (02:35)
[2019-06-16 03:25] LABS: Glucose,Whole Blood 91 mg/dL (75-99)
[2019-06-16] MEDS: guaiFENesin-DM 100-10MG/5ML 10 ML CUP PO SCH ×2 (05:17→12:37)
[2019-06-16 07:18] LABS: Glucose,Whole Blood 132 mg/dL (75-99)
[2019-06-16] MEDS: INSULIN ASPART (NovoLOG) 100 UNIT/ML VIAL SQ SCH ×2 (08:21→12:37)
[2019-06-16] MEDS: HEPARIN SODIUM,PORCINE 5,000 UNIT/ML 1 ML VIAL SQ SCH (08:22)
[2019-06-16] MEDS: OSELTAMIVIR 75 MG CAP PO SCH (08:22)
[2019-06-16] MEDS: PANTOPRAZOLE 40 MG TABLET PO SCH (08:22)
[2019-06-16] MEDS: AZITHROMYCIN 500 MG TAB PO SCH (08:22)
[2019-06-16 08:52] LABS: Basophils % (A) 0 %; Eosinophils % (A) 1 %; HGB 10.8 gm/dL (11.4-16.0); Lymphocytes # (A) 1.2 k/uL (1.0-4.8); Lymphocytes % (A) 13 %; MCH 29.1 pg (25.0-35.0); MCHC 33.7 g/dL (31.0-37.0); MCV 86.3 fL (80.0-100.0); Mean Platelet Volume 7.7; Monocytes # (A) 0.5 k/uL (0-1.0); Monocytes % (A) 6 %; Neutrophils # (A) 7.1 k/uL (1.3-7.7); Neutrophils % (A) 79 %; Platelet Count 385 k/uL (150-450); RBC 3.72 m/uL (3.80-5.40); RDW 12.2 % (11.5-15.5); WBC 8.9 k/uL (3.8-10.6)
[2019-06-16 09:11] LABS: African American GFR (CKD) >90 (>60 ml/min/1.73 sqM); Anion Gap 8 mmol/L; Blood Urea Nitrogen 6 mg/dL (7-17); Calcium 7.7 mg/dL (8.4-10.2); Carbon Dioxide 26 mmol/L (22-30); Chloride 102 mmol/L (98-107); Glucose 165 mg/dL (74-99); Non-African American GFR(CKD) >90 (>60 ml/min/1.73 sqM); Potassium 3.7 mmol/L (3.5-5.1); Sodium 136 mmol/L (137-145)
[2019-06-16 11:48] LABS: Glucose,Whole Blood 246 mg/dL (75-99)
[2019-06-16 11:51] VITALS: BP 147/88; PULSE 108; RESP 18; TEMP 97
--- NOTE | 2019-06-16 12:47 | P.PN ---
Subjective Progress Note Date: 06/16/19 Principal diagnosis: Acute diabetic ketoacidosis 34-year-old white female patient of Dr. Conroy with known history of type 1 diabetes, diabetic neuropathy, chronic low back pain, migraine headaches, anxiety, depression, lifetime nonsmoker who presented to the hospital this morning on 06/13/2019 complaints of weakness, nausea, vomiting. Patient's son had influenza infection last week and patient thought she was also infected. She denied any fever or chills, however did complain of cough and chest congestion and inability to bring up any sputum. In the last 24 hours she has not been able to keep anything down, vomiting several times. She is normally on insulin pump, she checks her sugars 3 times daily he states her sugars have been running elevated. Patient significantly tachycardic on presentation, but afebrile, with normal blood pressures, LAB work showed significant anion gap metabolic acidosis, with CO2 of less than 5, venous blood gas was drawn showing pH of 6.98, pCO2 of 23, and bicarb of 5, white blood cell, was 19.9, hemoglobin is 14, sodium is 140, potassium is 5.3, BUN of 12, creatinine 0.62, serum glucose was 478, serum acetone was positive, serum hCG was negative, and urinalysis showed 2+ protein, 4+ glucose and 4+ ketones, but no evidence of inf ection, serum acetone was positive, influenza screen was positive for influenza B. Chest x-ray showed new focal right basilar acute pneumonic infiltrate. Patient was started on IV hydration, she received 2 L and IV fluid boluses in the emergency department, she was started on insulin infusion per DKA protocol, and started on Tamiflu and Rocephin and Zithromax. She was transferred to the intensive care unit for further monitoring, and were consulted for intensive care management. Reevaluated today on 06/14/2019, patient remains in the ICU, remains on the DKA protocol. Remains on Tamiflu and antibiotics. Her anion gap has closed, remains on insulin drip, and her blood sugar remains a bit elevated in the range of 300. Overall the patient is feeling better, responding well to IV fluids as well as insulin. Electrolytes are relatively normal anion gap is only 9. WBC count is 13.5 hemoglobin is 11. Chest x-ray on admission showed right basilar pneumonic infiltrate. Patient was seen today on 06/15/2019, remains in the ICU, remains on insulin drip which I plan to discontinue and place on sliding scale insulin as per protocol. Her anion gap has completely closed. Patient is feeling dramatically better, denies any cough wheezing shortness of breath. Blood sugar this morning is 183. WBC count is 7.7 hemoglobin is 10 bicarb is 20 renal profile is normal The patient is seen today 06/16/2019 in follow-up on the regular medical floor. She is awake and alert in no acute distress. She denies any shortness of breath, cough or congestion. Maintaining O2 saturations in the mid 90s on room air. She's afebrile. Hemodynamically stable. Blood culture reveals no growth. White count 8.9. Hemoglobin 10.8. Sodium 136. Potassium 3.7. Bicarb 26. Anion gap 8. Creatinine 0.25. Glucose 165. Objective - Vital Signs Vital signs: Vital Signs Temp 97.0 F L 06/16/19 11:04 Pulse 108 H 06/16/19 11:04 Resp 18 06/16/19 11:04 BP 147/88 06/16/19 11:04 Pulse Ox 97 06/16/19 11:04 Intake & Output 06/15/19 06/16/19 06/16/19 18:59 06:59 18:59 Intake Total 983.113 240 Output Total 500 Balance 483.113 240 Weight 96 kg Intake: IV 450 D5-0.45% NaCl with KCl 450 20Meq/l 1,000 ml @ 150 mls/hr IV .Q6H40M [facility] Rx# :[id number] Intake, IV Titration 233.113 Amount Insulin Regular 100 unit 8.113 In Sodium Chloride 0.9% 100 ml @ 0.1 UNITS/KG/HR 5.223 mls/hr IV .[id number] [facility] Rx#:[id number] Potassium Phosphate 10 125 mmol In Sodium Chloride 0 .9% 250 ml @ 125 mls/hr IV Q2H [facility] Rx#:[id number] cefTRIAXone 1 gm In 100 Sodium Chloride 0.9% 50 ml @ 100 mls/hr IVPB Q24HR [facility] Rx#:[id number] Oral 300 240 Output: Urine 500 Other: Voiding Method Bedside Commode Bedside Commode Toilet # Voids 1 - Exam GENERAL EXAM: Alert, active, pleasant 34-year-old female, on room air, comfortable in no apparent distress. HEAD: Normocephalic. EYES: Normal reaction of pupils, equal size. NOSE: Clear with pink turbinates. THROAT: No erythema or exudates. NECK: No masses, no JVD. CHEST: No chest wall deformity. LUNGS: Equal air entry with no crackles, wheeze, rhonchi or dullness. CVS: S1 and S2 normal with no audible murmur, regular rhythm. ABDOMEN: No hepatosplenomegaly, normal bowel sounds, no guarding or rigidity. SPINE: No scoliosis or deformity SKIN: No rashes CENTRAL NERVOUS SYSTEM: No focal deficits, tone is normal in all 4 extremities. EXTREMITIES: There is no peripheral edema. No clubbing, no cyanosis. Peripheral pulses are intact. - Labs CBC & Chem 7: 06/16/19 08:30 06/16/19 08:30 Labs: Abnormal Lab Results - Last 24 Hours (Table) 06/15/19 06/15/19 06/16/19 Range/Units 16:58 20:04 07:07 RBC (3.80-5.40) m/uL Hgb (11.4-16.0) gm/dL Hct (34.0-46.0) % Sodium (137-145) mmol/L BUN (7-17) mg/dL Creatinine (0.52-1.04) mg/dL Glucose (74-99) mg/dL POC Glucose (mg/dL) 250 H 213 H 132 H (75-99) mg/dL Calcium (8.4-10.2) mg/dL 06/16/19 06/16/19 06/16/19 Range/Units 08:30 08:30 11:17 RBC 3.72 L (3.80-5.40) m/uL Hgb 10.8 L (11.4-16.0) gm/dL Hct 32.0 L (34.0-46.0) % Sodium 136 L (137-145) mmol/L BUN 6 L (7-17) mg/dL Creatinine 0.25 L (0.52-1.04) mg/dL Glucose 165 H (74-99) mg/dL POC Glucose (mg/dL) 246 H (75-99) mg/dL Calcium 7.7 L (8.4-10.2) mg/dL Microbiology - Last 24 Hours (Table) 06/13/19 09:50 Blood Culture - Preliminary Blood No Growth after 72 hours Assessment and Plan Assessment: Impression: Acute diabetic ketoacidosis Acute right lower lobe community-acquired pneumonia Influenza B infection Anion gap metabolic acidosis secondary to DKA History of type 1 diabetes with diabetic neuropathy Recommendation: The patient was seen and evaluated by Dr. Mullen. She is cleared for discharge from the pulmonary and critical care standpoint. Complete her course of Tamiflu. Complete a course of antibiotics. Insulin per medicine. She could follow-up in our office in 1-2 weeks' time. We'll repeat a chest x-ray then. She is encouraged to call sooner if any recurrence of symptoms or other questions or concerns. I, the cosigning physician, performed a history & physical examination of the patient. Lungs sounds are clear. Maintaining good O2 saturations in the 90s on room air. I discussed the assessment and plan of care with my nurse practitioner, Daniela Foreman. I attest to the above note as dictated by her.
== END 2019-06-16 16:55 | disposition home or self-care (01) | DRG 871 ==
LOC: EC 07:51 → 2SICU 09:25 → 5NMEDONC 06-15 16:39
PROVIDERS: ADMIT Hospitalist; ATTEND Hospitalist
DX: A41.9 Sepsis, unspecified organism (principal); E10.10 Type 1 diabetes mellitus with ketoacidosis without coma; J10.00 Influenza due to other identified influenza virus with unspecified type of pneumonia; E10.41 Type 1 diabetes mellitus with diabetic mononeuropathy; F17.200 Nicotine dependence, unspecified, uncomplicated; F32.9 Major depressive disorder, single episode, unspecified; F41.9 Anxiety disorder, unspecified; G43.909 Migraine, unspecified, not intractable, without status migrainosus; G89.29 Other chronic pain; K59.00 Constipation, unspecified; Z96.41 Presence of insulin pump (external) (internal); E86.0 Dehydration; Z79.4 Long term (current) use of insulin; Z79.899 Other long term (current) drug therapy; Z80.8 Family history of malignant neoplasm of other organs or systems; Z82.49 Family history of ischemic heart disease and other diseases of the circulatory system; Z83.3 Family history of diabetes mellitus; Z86.14 Personal history of Methicillin resistant Staphylococcus aureus infection; Z90.721 Acquired absence of ovaries, unilateral; Z90.710 Acquired absence of both cervix and uterus; Z98.890 Other specified postprocedural states; Z98.51 Tubal ligation status
CPT/HCPCS: 36415; 71046; 80048; 80051; 80053; 81001; 82009; 82565; 82803; 82947; 83036; 83605; 83690; 84100; 84520; 84703; 85025; 87040; 87502; 93005; 96361; 96365; 96375; 99291

== ENCOUNTER 2019-10-24 09:44 | Inpatient (IN) | payer OTHER ==
[2019-10-24] MEDS ORDERED: SODIUM CHLORIDE 0.9% 1,000 ML IV STA ×2 (09:46)
--- NOTE | 2019-10-24 09:58 | ED ---
General Adult HPI - General Chief complaint: Recheck/Abnormal Lab/Rx Stated complaint: Nausea, vomiting Time Seen by Provider: 10/24/19 09:45 Source: patient, RN notes reviewed Mode of arrival: EMS Limitations: no limitations - History of Present Illness Initial comments: 34-year-old female with a past medical history of type 1 insulin-dependent diabetes mellitus, DKA, syncope presents to the emergency room ever a little nausea vomiting. Patient has been very nauseous for the past 2 days. She has vomited several times. Patient states that she is not sure her insulin pump is working. She took this off the charge it. Patient reports her glucometer read in the 100s however EMS read in the 500s. Patient does have a history of DKA and feels that this is similar.Patient has no other complaints at this time including shortness of breath, chest pain, abdominal pain, headache, or visual changes. - Related Data Home Medications Medication Instructions Recorded Confirmed ALPRAZolam [Xanax] 0.25 mg PO DAILY PRN 10/21/17 06/13/19 Escitalopram [Lexapro] 10 mg PO DAILY PRN 10/21/17 06/13/19 Insulin Lispro [Admelog] See Protocol SQ CONTINUOUS 02/15/19 06/13/19 Amitriptyline HCl [Elavil] 10 mg PO HS 06/13/19 06/13/19 Pregabalin [Lyrica] 75 mg PO TID 10/24/19 10/24/19 Allergies Allergy/AdvReac Type Severity Reaction Status Date / Time No Known Allergies Allergy Verified 06/13/19 11:46 Review of Systems ROS Statement: Those systems with pertinent positive or pertinent negative responses have been documented in the HPI. ROS Other: All systems not noted in ROS Statement are negative. Past Medical History Past Medical History: Diabetes Mellitus, Syncope Additional Past Medical History / Comment(s): IDDM type I, DKA, neuropathy bilateral legs/feet, chronic low back pain, bilateral leg pain, migraines, L ovarian cysts, chronic constipation. History of Any Multi-Drug Resistant Organisms: MRSA Date of last positivie culture/infection: 02/15/19 MDRO Source:: Head Past Surgical History: Tubal Ligation, Uterine Ablation Additional Past Surgical History / Comment(s): 12/22/17 colonoscopy-normal, LAPAROSCOPIC REMOVAL TUBE AND OVARY-Right d/t endometriosis, D&C, HYSTEROSCOPY, NOVASURE ABLATION 2016. 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 Past Psychological History: Anxiety, Depression Smoking Status: Never smoker Past Alcohol Use History: None Reported Past Drug Use History: None Reported - Past Family History Mother Family Medical History: Rheumatoid Arthritis (RA) Additional Family Medical History / Comment(s): Mother is 63 yrs old. Father Family Medical History: Cancer, Diabetes Mellitus, Deep Vein Thrombosis (DVT), Hypertension Additional Family Medical History / Comment(s): THROAT CA- of but pt does not know at what age. General Exam Limitations: no limitations General appearance: alert, in no apparent distress Head exam: Present: atraumatic, normocephalic, normal inspection Eye exam: Present: normal appearance, PERRL, EOMI. Absent: scleral icterus, conjunctival injection, periorbital swelling ENT exam: Present: normal exam Neck exam: Present: normal inspection, full ROM. Absent: tenderness, meningismus, lymphadenopathy Respiratory exam: Present: normal lung sounds bilaterally. Absent: respiratory distress, wheezes, rales, rhonchi, stridor Cardiovascular Exam: Present: regular rate, normal rhythm, normal heart sounds. Absent: systolic murmur, diastolic murmur, rubs, gallop, clicks GI/Abdominal exam: Present: soft, normal bowel sounds. Absent: distended, tenderness, guarding, rebound, rigid Course Vital Signs 10/24/19 10/24/19 10/24/19 09:50 09:55 10:00 Temperature 97.9 F Pulse Rate 139 H 135 H Respiratory 28 H 26 H Rate Blood Pressure 117/78 117/78 O2 Sat by Pulse 100 95 100 Oximetry 10/24/19 10/24/19 10/24/19 10:30 11:00 11:04 Temperature Pulse Rate 133 H 137 H 132 H Respiratory 26 H 26 H 28 H Rate Blood Pressure 121/83 122/81 O2 Sat by Pulse 99 100 97 Oximetry EKG Findings - EKG Comments: EKG Findings:: Sinus tachycardia, ventricular rate 135, CA interval 136, QTc 462 Medical Decision Making - Medical Decision Making Patient tachycardic and slightly to likely secondary to acidosis. Physical exam is unremarkable. Patient does appear cachectic. CBC unremarkable with likely reactive leukocytosis. CMP does show hyperglycemia of 590. Hyperkalemia of 5.9 likely secondary to shift. Anion gap is elevated at 31. Acetone positive in urine. PH 7.03. Patient in DKA. She was given 2 L of fluids and started at 200 mls per hour maintenance fluids. Patient was started on an insulin drip after giving a 3 L bolus ( received 500 mL by EMS). - Lab Data Result diagrams: 10/24/19 09:55 10/24/19 09:55 Lab Results 10/24/19 10/24/19 10/24/19 Range/Units 09:53 09:55 09:55 WBC 13.3 H (3.8-10.6) k/uL RBC 4.91 (3.80-5.40) m/uL Hgb 14.1 (11.4-16.0) gm/dL Hct 47.0 H (34.0-46.0) % MCV 95.7 (80.0-100.0) fL MCH 28.8 (25.0-35.0) pg MCHC 30.1 L (31.0-37.0) g/dL RDW 13.2 (11.5-15.5) % Plt Count 454 H (150-450) k/uL Neutrophils % 88 % Lymphocytes % 8 % Monocytes % 3 % Eosinophils % 0 % Basophils % 1 % Neutrophils # 11.7 H (1.3-7.7) k/uL Lymphocytes # 1.0 (1.0-4.8) k/uL Monocytes # 0.4 (0-1.0) k/uL Eosinophils # 0.1 (0-0.7) k/uL Basophils # 0.1 (0-0.2) k/uL Hypochromasia Moderate Sample Site ABG pH (7.35-7.45) ABG pCO2 (35-45) mmHg ABG pO2 (83-108) mmHg ABG HCO3 (21-25) mmol/L ABG Total CO2 (19-24) mmol/L ABG O2 Saturation (94-97) % ABG Base Excess mmol/L Jerry Test FiO2 % Sodium 136 L (137-145) mmol/L Potassium 5.9 H (3.5-5.1) mmol/L Chloride 99 (98-107) mmol/L Carbon Dioxide 6 L* (22-30) mmol/L Anion Gap 31 mmol/L BUN 24 H (7-17) mg/dL Creatinine 0.79 (0.52-1.04) mg/dL Est GFR (CKD-EPI)AfAm >90 (>60 ml/min/1.73 sqM) Est GFR (CKD-EPI)NonAf >90 (>60 ml/min/1.73 sqM) Glucose 590 H* (74-99) mg/dL POC Glucose (mg/dL) 576 H (75-99) mg/dL POC Glu Surgical Physician Assistant ID Katie Patterson Calcium 9.3 (8.4-10.2) mg/dL Magnesium 2.2 (1.6-2.3) mg/dL Total Bilirubin 1.7 H (0.2-1.3) mg/dL AST 34 (14-36) U/L ALT 18 (4-34) U/L Alkaline Phosphatase 202 H (38-126) U/L Total Protein 9.3 H (6.3-8.2) g/dL Albumin 5.0 (3.5-5.0) g/dL Urine Color Urine Appearance (Clear) Urine pH (5.0-8.0) Ur Specific [place] (1.001-1.035) Urine Protein (Negative) Urine Glucose (UA) (Negative) Urine Ketones (Negative) Urine Blood (Negative) Urine Nitrite (Negative) Urine Bilirubin (Negative) Urine Urobilinogen (<2.0) mg/dL Ur Leukocyte Esterase (Negative) Urine WBC (0-5) /hpf Ur Squamous Epith Cells (0-4) /hpf Hyaline Casts (0-2) /lpf Urine HCG, Qual (Not Detectd) Acetone, Qual Positive (Negative) 10/24/19 10/24/19 10/24/19 Range/Units 10:00 10:00 11:38 WBC (3.8-10.6) k/uL RBC (3.80-5.40) m/uL Hgb (11.4-16.0) gm/dL Hct (34.0-46.0) % MCV (80.0-100.0) fL MCH (25.0-35.0) pg MCHC (31.0-37.0) g/dL RDW (11.5-15.5) % Plt Count (150-450) k/uL Neutrophils % % Lymphocytes % % Monocytes % % Eosinophils % % Basophils % % Neutrophils # (1.3-7.7) k/uL Lymphocytes # (1.0-4.8) k/uL Monocytes # (0-1.0) k/uL Eosinophils # (0-0.7) k/uL Basophils # (0-0.2) k/uL Hypochromasia Sample Site left brach ABG pH 7.08 L* (7.35-7.45) ABG pCO2 19 L* (35-45) mmHg ABG pO2 120 H (83-108) mmHg ABG HCO3 5 L* (21-25) mmol/L ABG Total CO2 6 L (19-24) mmol/L ABG O2 Saturation 97.4 H (94-97) % ABG Base Excess -24.6 mmol/L Jerry Test Yes FiO2 21 % Sodium (137-145) mmol/L Potassium (3.5-5.1) mmol/L Chloride (98-107) mmol/L Carbon Dioxide (22-30) mmol/L Anion Gap mmol/L BUN (7-17) mg/dL Creatinine (0.52-1.04) mg/dL Est GFR (CKD-EPI)AfAm (>60 ml/min/1.73 sqM) Est GFR (CKD-EPI)NonAf (>60 ml/min/1.73 sqM) Glucose (74-99) mg/dL POC Glucose (mg/dL) (75-99) mg/dL POC Glu Surgical Physician Assistant ID Calcium (8.4-10.2) mg/dL Magnesium (1.6-2.3) mg/dL Total Bilirubin (0.2-1.3) mg/dL AST (14-36) U/L ALT (4-34) U/L Alkaline Phosphatase (38-126) U/L Total Protein (6.3-8.2) g/dL Albumin (3.5-5.0) g/dL Urine Color Light Yellow Urine Appearance Clear (Clear) Urine pH 5.0 (5.0-8.0) Ur Specific [place] 1.022 (1.001-1.035) Urine Protein 1+ H (Negative) Urine Glucose (UA) 4+ H (Negative) Urine Ketones 4+ H (Negative) Urine Blood Negative (Negative) Urine Nitrite Negative (Negative) Urine Bilirubin Negative (Negative) Urine Urobilinogen <2.0 (<2.0) mg/dL Ur Leukocyte Esterase Negative (Negative) Urine WBC 1 (0-5) /hpf Ur Squamous Epith Cells 5 H (0-4) /hpf Hyaline Casts 1 (0-2) /lpf Urine HCG, Qual Not Detected (Not Detectd) Acetone, Qual (Negative) Disposition Clinical Impression: Ketoacidosis, DKA (diabetic ketoacidoses) Disposition: ADMITTED IP TO THIS HOSP Is patient prescribed a controlled substance at d/c from ED?: No Referrals: Jairo Conroy MD [Primary Care Provider] - 1-2 days Time of Disposition: 11:46
[2019-10-24 10:08] LABS: Basophils # (A) 0.1 k/uL (0-0.2); Basophils % (A) 1 %; Eosinophils # (A) 0.1 k/uL (0-0.7); Eosinophils % (A) 0 %; HGB 14.1 gm/dL (11.4-16.0); Hypochromasia Moderate; Lymphocytes % (A) 8 %; MCH 28.8 pg (25.0-35.0); MCHC 30.1 g/dL (31.0-37.0); MCV 95.7 fL (80.0-100.0); Mean Platelet Volume 8.8; Monocytes # (A) 0.4 k/uL (0-1.0); Monocytes % (A) 3 %; Neutrophils # (A) 11.7 k/uL (1.3-7.7); Neutrophils % (A) 88 %; Platelet Count 454 k/uL (150-450); RBC 4.91 m/uL (3.80-5.40); RDW 13.2 % (11.5-15.5); WBC 13.3 k/uL (3.8-10.6)
[2019-10-24 10:14] LABS: Glucose,Whole Blood 576 mg/dL (75-99)
[2019-10-24 10:24] LABS: ALT 18 U/L (4-34); AST 34 U/L (14-36); African American GFR (CKD) >90 (>60 ml/min/1.73 sqM); Alkaline Phosphatase 202 U/L (38-126); Anion Gap 31 mmol/L; Blood Urea Nitrogen 24 mg/dL (7-17); Calcium 9.3 mg/dL (8.4-10.2); Chloride 99 mmol/L (98-107); Magnesium 2.2 mg/dL (1.6-2.3); Non-African American GFR(CKD) >90 (>60 ml/min/1.73 sqM); Potassium 5.9 mmol/L (3.5-5.1); Sodium 136 mmol/L (137-145); Total Bilirubin 1.7 mg/dL (0.2-1.3); Total Protein 9.3 g/dL (6.3-8.2)
[2019-10-24 10:44] LABS: Carbon Dioxide 6 mmol/L (22-30); Glucose 590 mg/dL (74-99)
--- NOTE | 2019-10-24 10:58 | XR ---
EXAMINATION TYPE: XR chest 1V portable DATE OF EXAM: 10/24/2019 COMPARISON: 06/13/2019 INDICATION: Cough TECHNIQUE: Single frontal view of the chest is obtained. FINDINGS: The heart size is normal. The pulmonary vasculature is normal. The lungs are clear. IMPRESSION: 1. No acute pulmonary process.
[2019-10-24] MEDS ORDERED: INSULIN REGULAR BOLUS (FROM DRIP BAG) IV STA (11:04)
[2019-10-24 11:22] LABS: Appearance,Urine Clear (Clear); Bilirubin,Urine Negative (Negative); Blood,Urine Negative (Negative); Color,Urine Light Yellow; Glucose,Urine (UA) 4+ (Negative); Hyaline Casts,Urine 1 /lpf (0-2); Leukocyte Esterase,Urine Negative (Negative); Nitrite,Urine Negative (Negative); Protein,Urine 1+ (Negative); Specific Gravity,Urine 1.022 (1.001-1.035); Squamous Epithelial Cell,Urine 5 /hpf (0-4); Urobilinogen,Urine <2.0 mg/dL (<2.0); WBC,Urine 1 /hpf (0-5)
[2019-10-24 11:35] LABS: Ketones,Urine 4+ (Negative)
[2019-10-24 11:39] LABS: ABG Base Excess -24.6 mmol/L; ABG Oxygen Saturation 97.4 % (94-97); ABG PO2 120 mmHg (83-108); ABG TCO2 6 mmol/L (19-24); Allen Test Performed? Yes
[2019-10-24 11:41] LABS: ABG HCO3 5 mmol/L (21-25); ABG PCO2 19 mmHg (35-45); ABG PH 7.08 (7.35-7.45)
[2019-10-24] MEDS ORDERED: METOCLOPRAMIDE 5 MG/ML 2 ML VIAL IVP STA ×2 (11:52→22:39)
[2019-10-24] MEDS ORDERED: diphenhydrAMINE 50 MG/ML 1 ML VIAL IVP STA (11:52)
[2019-10-24] MEDS ORDERED: SODIUM CHLORIDE 0.9% 500 ML 500 ML IV STA (11:52)
[2019-10-24] MEDS: SODIUM CHLORIDE 0.9% 1,000 ML IV SCH ×2 (12:14→16:29)
[2019-10-24] MEDS: INSULIN REGULAR 100 UNIT in SODIUM CHLORIDE 0.9% 100 ML IV SCH ×2 (12:38→22:45)
[2019-10-24 12:56] LABS: Glucose,Whole Blood 448 mg/dL (75-99)
[2019-10-24] MEDS ORDERED: NALOXONE 0.4 MG/ML 1 ML VIAL IV PRN (13:02)
[2019-10-24 13:05] LABS: Glucose,Whole Blood 441 mg/dL (75-99)
[2019-10-24] MEDS ORDERED: SODIUM CHLORIDE 0.9% 500 ML 500 ML IV ONE (13:31)
--- NOTE | 2019-10-24 13:33 | P.CNPUL ---
History of Present Illness Consult date: 10/24/19 Reason for consult: other Chief complaint: Nausea, vomiting History of present illness: 34-year-old white female patient of Dr. Conroy with past medical history of diabetes mellitus type 1 with diabetic neuropathy and diabetic retinopathy on insulin pump, previous history of DKA, migraine headaches, anxiety, depression, history of MRSA infection in the scalp wound with cellulitis in 2019, presented to the emergency department on 10/24/2019 with 24 hour history of nausea, vomiting. Patient is not sure if her insulin pump is working. Patient's blood sugar in the EMS was in the 500s. While in the emergency department patient had another episode of vomiting, with small amount of coffee ground material, mostly thin bilious in nature. No complaints of shortness of breath, no chest pain. She has some abdominal soreness which she thinks is from multiple episodes of vomiting. No visual changes white headedness or headaches. 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 She denies consumption of alcohol, she is a nonsmoker, does not use any illicit drugs. In the emergency department serum glucose was 590, patient had severe metabolic acidosis with CO2 of 6, anion gap of 31, BUN of 24, creatinine was 0.79, potassium was 5.9, sodium was 136, serum acetone was positive, urinalysis was positive for 4+ glucose 4+ ketones but negative for any sign of infection, white blood cell count was 13.3, hemoglobin was 14.1, platelet count 454, blood gas showed pO2 of 120, pCO2 of 19, and pH was 7.08. She received a total of 2-1/2 L in IV fluid boluses, she was started on insulin infusion per DKA protocol. Review of Systems All systems: negative Constitutional: Denies chills, Denies fever Eyes: denies blurred vision, denies pain Ears, nose, mouth and throat: Denies headache, Denies sore throat Cardiovascular: Denies chest pain, Denies shortness of breath Respiratory: Denies cough Gastrointestinal: Reports nausea, Reports vomiting, Denies abdominal pain, Denies diarrhea Genitourinary: Denies dysuria, Denies hematuria Musculoskeletal: Denies myalgias Integumentary: Denies pruritus, Denies rash Neurological: Denies numbness, Denies weakness Psychiatric: Denies anxiety, Denies depression Endocrine: Denies fatigue, Denies weight change Past Medical History Past Medical History: Diabetes Mellitus, Syncope Additional Past Medical History / Comment(s): IDDM type I, DKA, neuropathy bilateral legs/feet, chronic low back pain, bilateral leg pain, migraines, L ovarian cysts, chronic constipation. History of Any Multi-Drug Resistant Organisms: MRSA Date of last positivie culture/infection: 02/15/19 MDRO Source:: Head Past Surgical History: Tubal Ligation, Uterine Ablation Additional Past Surgical History / Comment(s): 12/22/17 colonoscopy-normal, LAPAROSCOPIC REMOVAL TUBE AND OVARY-Right d/t endometriosis, D&C, HYSTEROSCOPY, NOVASURE ABLATION 2016. 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 Past Psychological History: Anxiety, Depression Smoking Status: Never smoker Past Alcohol Use History: None Reported Past Drug Use History: None Reported - Past Family History Mother Family Medical History: Rheumatoid Arthritis (RA) Additional Family Medical History / Comment(s): Mother is 63 yrs old. Father Family Medical History: Cancer, Diabetes Mellitus, Deep Vein Thrombosis (DVT), Hypertension Additional Family Medical History / Comment(s): THROAT CA- of but pt does not know at what age. Medications and Allergies Home Medications Medication Instructions Recorded Confirmed Type ALPRAZolam [Xanax] 0.25 mg PO DAILY PRN 10/21/17 10/24/19 History Escitalopram [Lexapro] 10 mg PO DAILY PRN 10/21/17 10/24/19 History Insulin Lispro [Admelog] See Protocol SQ CONTINUOUS 02/15/19 10/24/19 History Amitriptyline HCl [Elavil] 10 mg PO HS 06/13/19 10/24/19 History Pregabalin [Lyrica] 75 mg PO TID 10/24/19 10/24/19 History Allergies Allergy/AdvReac Type Severity Reaction Status Date / Time No Known Allergies Allergy Verified 06/13/19 11:46 Physical Exam Vitals: Vital Signs Temp Pulse Resp BP Pulse Ox 10/24/19 12:30 142 H 26 H 124/78 10/24/19 12:00 137 H 26 H 128/83 98 10/24/19 11:30 140 H 26 H 136/80 98 10/24/19 11:04 132 H 28 H 97 10/24/19 11:00 137 H 26 H 122/81 100 10/24/19 10:30 133 H 26 H 121/83 99 10/24/19 10:00 135 H 26 H 117/78 100 10/24/19 09:55 97.9 F 139 H 28 H 117/78 95 10/24/19 09:50 100 Intake and Output 10/23/19 10/24/19 10/24/19 22:59 06:59 14:59 Other: Weight 50.802 kg GENERAL EXAM: Alert, thin 34-year-old white female in mild distress from nausea and vomiting, alert and oriented 3, resting on the gurney in the emergency department, anxious, tachycardic in sinus mechanism on the monitor with a rate of 140 BPM, no apparent distress. Patient has a emesis basin in her lap with about 300 mL of thin bilious vomitus with some coffee ground type material HEAD: Normocephalic/atraumatic. EYES: Normal reaction of pupils, equal size. Conjunctiva pink, sclera white. NOSE: Clear with pink turbinates. THROAT: No erythema or exudates. NECK: No masses, no JVD, no thyroid enlargement, no adenopathy. CHEST: No chest wall deformity. Symmetrical expansion. LUNGS: Equal air entry with no crackles, wheeze, rhonchi or dullness. CVS: Regular rate and rhythm, normal S1 and S2, no gallops, no murmurs, no rubs ABDOMEN: Soft, nontender. No hepatosplenomegaly, normal bowel sounds, no guarding or rigidity. EXTREMITIES: No clubbing, no edema, no cyanosis, 2+ pulses and upper and lower extremities. MUSCULOSKELETAL: Muscle strength and tone normal. SPINE: No scoliosis or deformity SKIN: No rashes CENTRAL NERVOUS SYSTEM: Alert and oriented -3. No focal deficits, tone is normal in all 4 extremities. PSYCHIATRIC: Alert and oriented -3. Appropriate affect. Intact judgment and insight. Results - Laboratory Findings CBC and BMP: 10/24/19 09:55 10/24/19 09:55 ABG ABG pH 7.08 (7.35-7.45) L* 10/24/19 11:38 ABG pCO2 19 mmHg (35-45) L* 10/24/19 11:38 ABG pO2 120 mmHg (83-108) H 10/24/19 11:38 ABG O2 Saturation 97.4 % (94-97) H 10/24/19 11:38 Abnormal lab findings: Abnormal Labs 10/24/19 10/24/19 10/24/19 09:53 09:55 09:55 WBC 13.3 H Hct 47.0 H MCHC 30.1 L Plt Count 454 H Neutrophils # 11.7 H ABG pH ABG pCO2 ABG pO2 ABG HCO3 ABG Total CO2 ABG O2 Saturation Sodium 136 L Potassium 5.9 H Carbon Dioxide 6 L* BUN 24 H Glucose 590 H* POC Glucose (mg/dL) 576 H Total Bilirubin 1.7 H Alkaline Phosphatase 202 H Total Protein 9.3 H Urine Protein Urine Glucose (UA) Urine Ketones Ur Squamous Epith Cells 10/24/19 10/24/19 10/24/19 10:00 11:38 12:36 WBC Hct MCHC Plt Count Neutrophils # ABG pH 7.08 L* ABG pCO2 19 L* ABG pO2 120 H ABG HCO3 5 L* ABG Total CO2 6 L ABG O2 Saturation 97.4 H Sodium Potassium Carbon Dioxide BUN Glucose POC Glucose (mg/dL) 448 H Total Bilirubin Alkaline Phosphatase Total Protein Urine Protein 1+ H Urine Glucose (UA) 4+ H Urine Ketones 4+ H Ur Squamous Epith Cells 5 H - Diagnostic Findings Chest x-ray: report reviewed, image reviewed Additional studies: EKG reviewed Assessment and Plan Plan: Assessment: #1. Acute diabetic ketoacidosis #2. Severe anion gap metabolic acidosis and dehydration related to the above #3. Nausea and vomiting, we'll obtain lipase and amylase #4. History of diabetes mellitus type 1 with diabetic neuropathy and diabetic retinopathy #5. Previous episodes of DKA #6. Anxiety/depression #7. Nonsmoker, no history of EtOH or drug abuse #8. History of migraine headaches #9. History of MRSA infection in the scalp wound #10. History of endometriosis, with history of NovaSure endometrial ablation, status post right salpingo-oophorectomy in 2002 Plan: Continue insulin infusion, IV fluids per DKA protocol, patient has received IV fluid boluses a total of 2-1/2 L in the emergency department, currently still on 0.9 normal saline at a rate of 200 ML per hour, we'll switch to D5 half normal saline with 20 potassium at a rate of 150 ML per hour once blood sugar is less than 300, patient continues to vomit, she has been started on Reglan, we'll add Zofran. Will obtain lipase and amylase level. Repeat renal profile and electrolytes every 4 hours per DKA protocol. We'll add IV Protonix, apply SCDs. Keep nothing by mouth until vomiting resolves. Chest x-ray showed no acute pulmonary process, urinalysis is negative for any sign of infection, no fever or chills, patient is on room air. May need additional volume. COVID testing is pending. We'll continue monitoring the patient in the intensive care unit. I performed a history & physical examination of the patient and discussed their management with my nurse practitioner, Dania Negron. I reviewed the nurse practitioner's note and agree with the documented findings and plan of care. Lung sounds are positive for clear breath sounds The findings and the impression was discussed with the patient. I attest to the documentation by the nurse practitioner. Time with Patient: Greater than 30
--- NOTE | 2019-10-24 14:11 | P.HPIM ---
History of Present Illness H&P Date: 10/24/19 Chief Complaint: nausea and vomiting review the 4 old female with a known history of diabetes type 1 on insulin pump, previous history of DKA, bilateral lower action to peripheral diabetic neuropathy and anxiety/depression presents to ER with complaints of nausea vomiting and lower abdominal pain since yesterday. Vomiting is mainly bilious nonbloody. Patient otherwise denied any complaints of chest pain or shortness of breath. Denied any headache or dizziness or lightheadedness. Denied any fever or chills.denied any dysuria or hematuria. Denied any diarrhea. denied any drugs IVDU. Patient says that her insulin pump is not working properly. chest x-ray showed no acute cardio pulmonary process EKG showed sinus tachycardia ABGs showed pH of 7.08, fever to 120 and pCO2 19 Laboratory data showedWBC 13.3, hemoglobin 14.1 and platelets 454 absolute neutrophil count is 11.7 Sodium 138, potassium 5.9, chloride 99, bicarbonate 6, blood sugar is high 90s on admission and Is 31 total bilirubin is 1.7, AST ALT within normal limits, alk phos 202 Aimee positive UA negative for infection Review of Systems Constitutional: Patient denies any fever or chills . patient does have generalized weakness and fatigues. Abdomen: patient does have nausea vomiting and lower abdominal pain Cardiovascular: Patient denies any chest pain or short of breath no palpitations. Respiratory: patient denied any cough is from production. No shortness of breath Neurologic: Patient denied any numbness or tingling headache. Musculoskeletal: Patient denies any complaints of joint swelling or deformity. Skin: Negative Psychiatric: Negative Endocrine: No heat or cold intolerance. No recent weight gain. Genitourinary: No dysuria or hematuria. All other 14 point ROS negative except the above Past Medical History Past Medical History: Diabetes Mellitus, Syncope Additional Past Medical History / Comment(s): IDDM type I, DKA, neuropathy bilateral legs/feet, chronic low back pain, bilateral leg pain, migraines, L ovarian cysts, chronic constipation. History of Any Multi-Drug Resistant Organisms: MRSA Date of last positivie culture/infection: 02/15/19 MDRO Source:: Head Past Surgical History: Tubal Ligation, Uterine Ablation Additional Past Surgical History / Comment(s): 12/22/17 colonoscopy-normal, LAPAROSCOPIC REMOVAL TUBE AND OVARY-Right d/t endometriosis, D&C, HYSTEROSCOPY, NOVASURE ABLATION 2016. 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 Past Psychological History: Anxiety, Depression Smoking Status: Never smoker Past Alcohol Use History: None Reported Past Drug Use History: None Reported - Past Family History Mother Family Medical History: Rheumatoid Arthritis (RA) Additional Family Medical History / Comment(s): Mother is 63 yrs old. Father Family Medical History: Cancer, Diabetes Mellitus, Deep Vein Thrombosis (DVT), Hypertension Additional Family Medical History / Comment(s): THROAT CA- of but pt does not know at what age. Medications and Allergies Home Medications Medication Instructions Recorded Confirmed Type ALPRAZolam [Xanax] 0.25 mg PO DAILY PRN 10/21/17 10/24/19 History Escitalopram [Lexapro] 10 mg PO DAILY PRN 10/21/17 10/24/19 History Insulin Lispro [Admelog] See Protocol SQ CONTINUOUS 02/15/19 10/24/19 History Amitriptyline HCl [Elavil] 10 mg PO HS 06/13/19 10/24/19 History Pregabalin [Lyrica] 75 mg PO TID 10/24/19 10/24/19 History Allergies Allergy/AdvReac Type Severity Reaction Status Date / Time No Known Allergies Allergy Verified 06/13/19 11:46 Physical Exam Vitals: Vital Signs Temp Pulse Resp BP Pulse Ox 10/24/19 12:30 142 H 26 H 124/78 10/24/19 12:00 137 H 26 H 128/83 98 10/24/19 11:30 140 H 26 H 136/80 98 10/24/19 11:04 132 H 28 H 97 10/24/19 11:00 137 H 26 H 122/81 100 10/24/19 10:30 133 H 26 H 121/83 99 10/24/19 10:00 135 H 26 H 117/78 100 10/24/19 09:55 97.9 F 139 H 28 H 117/78 95 10/24/19 09:50 100 Intake and Output 10/23/19 10/24/19 10/24/19 22:59 06:59 14:59 Intake Total 202.309 Balance 202.309 Intake: IV 200 NS 200 Intake, IV Titration 2.309 Amount Insulin Regular 100 unit 2.309 In Sodium Chloride 0.9% 100 ml @ 0.1 UNITS/KG/HR 5.131 mls/hr IV .[id number] [facility] [place] Rx#:[id number] Other: Weight 50.802 kg PHYSICAL EXAMINATION: Patient is lying in the bed comfortably, no acute distress, awake alert and oriented.lethargic and weak.. HEENT: Normocephalic. Neck is supple. Pupils reactive. Nostrils clear. Oral cavity is moist. Ears reveal no drainage. Neck reveals no JVD, carotid bruits, or thyromegaly. CHEST EXAMINATION: Trachea is central. Symmetrical expansion. Lung abbott clear to auscultation and percussion. CARDIAC: Normal S1, S2 with no gallops. No murmurs ABDOMEN: Soft. Bowel sounds normal. No organomegaly. No abdominal bruits. Extremities: reveal no edema. No clubbing or cyanosis Neurologically awake, alert, oriented x3 with well-coordinated movements. No focal deficits noted Skin: No rash or skin lesions. Psychiatric: Coperative. Nonsuicidal Musculoskeletal: No joint swelling or deformity. Normal range of motion. Results CBC & Chem 7: 10/24/19 09:55 10/24/19 09:55 Labs: Abnormal Lab Results - Last 24 Hours (Table) 10/24/19 10/24/19 10/24/19 Range/Units 09:53 09:55 09:55 WBC 13.3 H (3.8-10.6) k/uL Hct 47.0 H (34.0-46.0) % MCHC 30.1 L (31.0-37.0) g/dL Plt Count 454 H (150-450) k/uL Neutrophils # 11.7 H (1.3-7.7) k/uL ABG pH (7.35-7.45) ABG pCO2 (35-45) mmHg ABG pO2 (83-108) mmHg ABG HCO3 (21-25) mmol/L ABG Total CO2 (19-24) mmol/L ABG O2 Saturation (94-97) % Sodium 136 L (137-145) mmol/L Potassium 5.9 H (3.5-5.1) mmol/L Carbon Dioxide 6 L* (22-30) mmol/L BUN 24 H (7-17) mg/dL Glucose 590 H* (74-99) mg/dL POC Glucose (mg/dL) 576 H (75-99) mg/dL Total Bilirubin 1.7 H (0.2-1.3) mg/dL Alkaline Phosphatase 202 H (38-126) U/L Total Protein 9.3 H (6.3-8.2) g/dL Urine Protein (Negative) Urine Glucose (UA) (Negative) Urine Ketones (Negative) Ur Squamous Epith Cells (0-4) /hpf 10/24/19 10/24/19 10/24/19 Range/Units 10:00 11:38 12:36 WBC (3.8-10.6) k/uL Hct (34.0-46.0) % MCHC (31.0-37.0) g/dL Plt Count (150-450) k/uL Neutrophils # (1.3-7.7) k/uL ABG pH 7.08 L* (7.35-7.45) ABG pCO2 19 L* (35-45) mmHg ABG pO2 120 H (83-108) mmHg ABG HCO3 5 L* (21-25) mmol/L ABG Total CO2 6 L (19-24) mmol/L ABG O2 Saturation 97.4 H (94-97) % Sodium (137-145) mmol/L Potassium (3.5-5.1) mmol/L Carbon Dioxide (22-30) mmol/L BUN (7-17) mg/dL Glucose (74-99) mg/dL POC Glucose (mg/dL) 448 H (75-99) mg/dL Total Bilirubin (0.2-1.3) mg/dL Alkaline Phosphatase (38-126) U/L Total Protein (6.3-8.2) g/dL Urine Protein 1+ H (Negative) Urine Glucose (UA) 4+ H (Negative) Urine Ketones 4+ H (Negative) Ur Squamous Epith Cells 5 H (0-4) /hpf 10/24/19 Range/Units 13:03 WBC (3.8-10.6) k/uL Hct (34.0-46.0) % MCHC (31.0-37.0) g/dL Plt Count (150-450) k/uL Neutrophils # (1.3-7.7) k/uL ABG pH (7.35-7.45) ABG pCO2 (35-45) mmHg ABG pO2 (83-108) mmHg ABG HCO3 (21-25) mmol/L ABG Total CO2 (19-24) mmol/L ABG O2 Saturation (94-97) % Sodium (137-145) mmol/L Potassium (3.5-5.1) mmol/L Carbon Dioxide (22-30) mmol/L BUN (7-17) mg/dL Glucose (74-99) mg/dL POC Glucose (mg/dL) 441 H (75-99) mg/dL Total Bilirubin (0.2-1.3) mg/dL Alkaline Phosphatase (38-126) U/L Total Protein (6.3-8.2) g/dL Urine Protein (Negative) Urine Glucose (UA) (Negative) Urine Ketones (Negative) Ur Squamous Epith Cells (0-4) /hpf Thrombosis Risk Factor Assmnt - DVT/VTE Prophylaxis DVT/VTE Prophylaxis: Pharmacologic Prophylaxis ordered - Choose All That Apply Any of the Below Risk Factors Present?: No Other Risk Factors: No Other congenital or acquired thrombophilia - If yes, enter type in comment: No Thrombosis Risk Factor Assessment Level: Very Low Risk Assessment and Plan Assessment: acute diabetic ketoacidosis likely due to malfunctioning of insulin pump. Severe anion gap metabolic acidosis secondary to DKA Intractable nausea vomiting and lower abdominal pain. mild hyperglycemia secondary to acidosis. diabetes type 1 insulin-dependent. on Insulin pumpat home. Diabetic peripheral neuropathy chronic low back pain History of migraine headaches chronic constipation Anxiety/depression DVT prophylaxis with heparin subcu Plan: Patient will be continued on insulin drip and monitor lites every 4 hours and replace electrolytes.follow-up with the [facility] complicated continue with Zofran when necessary for nausea and vomiting. GI and DVT prophylaxis. chest x-ray and UA showed noevidence of infection. Continue to follow closely and patient will be transferred to MICU. Further recommendations based on the clinical course. Time with Patient: Greater than 30
[2019-10-24 14:20] LABS: Glucose,Whole Blood 344 mg/dL (75-99)
[2019-10-24 14:44] LABS: African American GFR (CKD) >90 (>60 ml/min/1.73 sqM); Amylase 44 U/L (30-110); Blood Urea Nitrogen 23 mg/dL (7-17); Chloride 111 mmol/L (98-107); Glucose 424 mg/dL (74-99); Non-African American GFR(CKD) >90 (>60 ml/min/1.73 sqM); Potassium 5.2 mmol/L (3.5-5.1); Sodium 141 mmol/L (137-145)
[2019-10-24 14:48] LABS: Carbon Dioxide <5 mmol/L (22-30)
[2019-10-24 15:04] LABS: Glucose,Whole Blood 276 mg/dL (75-99)
[2019-10-24 15:12] LABS: Glucose,Whole Blood 289 mg/dL (75-99)
[2019-10-24] MEDS: PANTOPRAZOLE 40 MG/10 ML VIAL IVP SCH (15:14)
[2019-10-24] MEDS: D5-0.45% NACL WITH KCL 20MEQ/L 1,000 ML IV SCH ×2 (15:14→22:48)
[2019-10-24 16:29] LABS: Glucose,Whole Blood 267 mg/dL (75-99)
[2019-10-24] MEDS: ONDANSETRON 4 MG/2 ML VIAL IVP PRN (17:04)
[2019-10-24 17:14] LABS: Glucose,Whole Blood 276 mg/dL (75-99)
[2019-10-24 18:08] LABS: African American GFR (CKD) >90 (>60 ml/min/1.73 sqM); Anion Gap 15 mmol/L; Blood Urea Nitrogen 21 mg/dL (7-17); Carbon Dioxide 12 mmol/L (22-30); Chloride 113 mmol/L (98-107); Glucose 277 mg/dL (74-99); Non-African American GFR(CKD) >90 (>60 ml/min/1.73 sqM); Phosphorus 1.9 mg/dL (2.5-4.5); Potassium 5.6 mmol/L (3.5-5.1); Sodium 140 mmol/L (137-145)
[2019-10-24 18:22] LABS: Glucose,Whole Blood 180 mg/dL (75-99)
[2019-10-24 19:14] LABS: Glucose,Whole Blood 182 mg/dL (75-99)
[2019-10-24 19:59] LABS: Glucose,Whole Blood 159 mg/dL (75-99)
[2019-10-24 21:01] LABS: Glucose,Whole Blood 155 mg/dL (75-99)
[2019-10-24 22:08] LABS: Glucose,Whole Blood 156 mg/dL (75-99)
[2019-10-24] MEDS: ACETAMINOPHEN TAB 325 MG TAB PO PRN (22:47)
[2019-10-24 23:12] LABS: Glucose,Whole Blood 119 mg/dL (75-99)
[2019-10-24 23:37] LABS: African American GFR (CKD) >90 (>60 ml/min/1.73 sqM); Anion Gap 8 mmol/L; Blood Urea Nitrogen 21 mg/dL (7-17); Carbon Dioxide 18 mmol/L (22-30); Chloride 114 mmol/L (98-107); Non-African American GFR(CKD) >90 (>60 ml/min/1.73 sqM); Potassium 4.2 mmol/L (3.5-5.1); Sodium 140 mmol/L (137-145)
[2019-10-25 00:07] LABS: Glucose,Whole Blood 106 mg/dL (75-99)
[2019-10-25] MEDS: SODIUM CHLORIDE 0.9% 1,000 ML IV SCH ×4 (00:22→20:43)
[2019-10-25] MEDS ORDERED: INSULIN DETEMIR (LEVEMIR) 100 UNIT/ML SYR SQ ONE (00:36)
[2019-10-25 05:11] LABS: Basophils % (A) 0 %; Eosinophils # (A) 0.1 k/uL (0-0.7); Eosinophils % (A) 1 %; HCT 37.8 % (34.0-46.0); HGB 12.3 gm/dL (11.4-16.0); Lymphocytes # (A) 1.1 k/uL (1.0-4.8); Lymphocytes % (A) 7 %; MCH 30.4 pg (25.0-35.0); MCHC 32.7 g/dL (31.0-37.0); Mean Platelet Volume 8.1; Monocytes # (A) 0.8 k/uL (0-1.0); Monocytes % (A) 5 %; Neutrophils # (A) 14.2 k/uL (1.3-7.7); Neutrophils % (A) 86 %; Platelet Count 318 k/uL (150-450); RBC 4.06 m/uL (3.80-5.40); RDW 13.7 % (11.5-15.5); WBC 16.4 k/uL (3.8-10.6)
[2019-10-25] MEDS: ONDANSETRON 4 MG/2 ML VIAL IVP PRN ×2 (05:11→12:49)
[2019-10-25 05:19] LABS: African American GFR (CKD) >90 (>60 ml/min/1.73 sqM); Anion Gap 11 mmol/L; Blood Urea Nitrogen 20 mg/dL (7-17); Calcium 8.7 mg/dL (8.4-10.2); Carbon Dioxide 16 mmol/L (22-30); Chloride 110 mmol/L (98-107); Glucose 219 mg/dL (74-99); Non-African American GFR(CKD) >90 (>60 ml/min/1.73 sqM); Potassium 4.5 mmol/L (3.5-5.1); Sodium 137 mmol/L (137-145)
[2019-10-25 06:47] LABS: Glucose,Whole Blood 202 mg/dL (75-99)
[2019-10-25] MEDS: INSULIN ASPART (NovoLOG) 100 UNIT/ML VIAL SQ SCH ×7 (06:51→20:42)
--- NOTE | 2019-10-25 07:31 | PN ---
PROGRESS NOTE PULMONARY/CRITICAL CARE PROGRESS NOTE: DATE OF SERVICE: October 25, 2019 A 34-year-old female who we saw yesterday in the emergency room for diabetic ketoacidosis. She is doing much better today. The patient was complaining of nausea and vomiting. That stopped. She also had a lot of abdominal discomfort from vomiting, and that has ceased as well. She got both Zofran and Reglan. The Reglan seemed to help more than the Zofran. She has prior episodes of DKA, anxiety and depression, and she is a lifelong nonsmoker. She also suffers from migraine cephalgia and also has had a previous MRSA infection of a scalp wound. Currently she is resting comfortably. She is on room air. Her IV is 0.9 at 100. PHYSICAL EXAMINATION: VITAL SIGNS: Vital signs are stable. Temperature 98, heart rate 110, respiratory rate 15, blood pressure 148/95, mean 112, room air saturation 98%. GENERAL: Appears in no acute distress. HEENT: Examination is grossly unremarkable. No supplemental oxygen. NECK: Supple. Full range of motion. No adenopathy. CARDIOVASCULAR: Examination reveals regular rhythm and rate. S1, S2 normal. No S3, S4, or murmur. LUNGS: Relatively clear. Breath sounds equal. No wheezes, rhonchi, or crackles. ABDOMEN: Soft. Bowel sounds are heard. EXTREMITIES: Are intact. No cyanosis, clubbing, or edema. SKIN: Without rash. NEUROLOGIC: Examination is brief but nonfocal. LABS: Labs are reviewed. White count 16.4. Hemoglobin, hematocrit and platelet count all normal. Sodium 137, potassium 4.5, chloride 110, CO2 is 16. Anion gap is 11. BUN and creatinine were 20 and 0.41. Microbiology is negative or pending. No recent chest x-ray. MEDICATIONS: Medications are reviewed. She is currently on Tylenol, insulin, Narcan, Zofran, and sodium chloride IV. ASSESSMENT: 1. Acute diabetic ketoacidosis in a patient with prior episodes. 2. Severe anion gap metabolic acidosis, resolved. 3. Nausea, vomiting secondary to diabetic ketoacidosis, much better on Reglan. 4. History of diabetic end organ involvement including diabetic retinopathy and neuropathy. 5. Prior episodes of diabetic ketoacidosis. 6. Anxiety/depression. 7. Lifelong nonsmoker. 8. History of migraine cephalgia. 9. Prior history of scalp wound infected by methicillin-resistant Staphylococcus aureus. PLAN: From my perspective, the patient could be discharged out of the ICU. No additional recommendations are made. We will continue to follow only as needed. MMODL / IJN: [id number] /
[2019-10-25] MEDS: PANTOPRAZOLE 40 MG/10 ML VIAL IVP SCH (08:11)
[2019-10-25] MEDS ORDERED: METOCLOPRAMIDE 5 MG/ML 2 ML VIAL IVP STA (08:18)
[2019-10-25 11:55] LABS: Glucose,Whole Blood 159 mg/dL (75-99)
[2019-10-25 13:51] VITALS: BMI 21.0
[2019-10-25] MEDS: BENZOCAINE/MENTHOL LOZENG 1 EACH LOZENGE MUCOUS MEM PRN (15:51)
[2019-10-25 17:00] LABS: Glucose,Whole Blood 223 mg/dL (75-99)
[2019-10-25] MEDS: ACETAMINOPHEN TAB 325 MG TAB PO PRN (18:30)
[2019-10-25 20:28] LABS: Glucose,Whole Blood 165 mg/dL (75-99)
[2019-10-25] MEDS ORDERED: INSULIN DETEMIR (LEVEMIR) 100 UNIT/ML SYR SQ SCH (21:00)
--- NOTE | 2019-10-26 01:52 | P.PN ---
Subjective Progress Note Date: 10/25/19 Principal diagnosis: DKA pt. is 34 old female with a known history of diabetes type 1 on insulin pump, previous history of DKA, bilateral lower action to peripheral diabetic neuro coco and anxiety/depression presents to ER with complaints of nausea vomiting and lower abdominal pain since yesterday. Vomiting is mainly bilious nonbloody. Patient otherwise denied any complaints of chest pain or shortness of breath. Denied any headache or dizziness or lightheadedness. Denied any fever or chills.denied any dysuria or hematuria. Denied any diarrhea. denied any drugs IVDU. Patient says that her insulin pump is not working properly. chest x-ray showed no acute cardio pulmonary process EKG showed sinus tachycardia ABGs showed pH of 7.08, fever to 120 and pCO2 19 Laboratory data showedWBC 13.3, hemoglobin 14.1 and platelets 454 absolute neutrophil count is 11.7 Sodium 138, potassium 5.9, chloride 99, bicarbonate 6, blood sugar is high 90s on admission and Is 31 total bilirubin is 1.7, AST ALT within normal limits, alk phos 202 Aimee positive UA negative for infection 10/25/2019 Patient is currently lying in the bed comfortably. Complains of nausea and ep isodes of vomiting last night. Patient is complaining of sore throat requiring throat lozenges. However his DKA has resolved and patient was started subcu insulin. Tolerating oral diet slowly but still having nausea. Blood sugar is better controlled. Patient has been afebrile. Continued on IV hydration and adjust insulin dose as needed. Current medications reviewed. Objective - Vital Signs Vital signs: Vital Signs Temp 98 F 10/25/19 04:00 Pulse 102 H 10/25/19 16:00 Resp 15 10/25/19 16:00 BP 142/89 10/25/19 16:00 Pulse Ox 96 10/25/19 16:00 Intake & Output 10/25/19 10/25/19 10/26/19 06:59 18:59 06:59 Intake Total 1661.001 400 Output Total 350 Balance 1311.001 400 Weight 50.5 kg 50.5 kg Intake: IV 1450 D5-0.45% NaCl with KCl 1050 20Meq/l 1,000 ml @ 150 mls/hr IV .[id number] [facility] Rx# :[id number] Insulin Regular 100 unit 0 In Sodium Chloride 0.9% 100 ml @ 0.1 UNITS/KG/HR 5.131 mls/hr IV .[id number] [facility] Rx#:[id number] Sodium Chloride 0.9% 1, 400 000 ml @ 100 mls/hr IV . Q10H [facility] Rx#:[id number] Intake, IV Titration 211.001 400 Amount D5-0.45% NaCl with KCl 150 20Meq/l 1,000 ml @ 150 mls/hr IV .[id number] [facility] Rx# :[id number] Insulin Regular 100 unit 61.001 In Sodium Chloride 0.9% 100 ml @ 0.1 UNITS/KG/HR 5.131 mls/hr IV .[id number] [facility] Rx#:[id number] Sodium Chloride 0.9% 1, 400 000 ml @ 100 mls/hr IV . Q10H [facility] Rx#:[id number] Output: Urine 350 Other: Voiding Method Toilet Toilet Bedpan # Voids 3 # Bowel Movements 1 - Exam PHYSICAL EXAMINATION: Patient is lying in the bed comfortably, no acute distress, awake alert and oriented.lethargic and weak.. HEENT: Normocephalic. Neck is supple. Pupils reactive. Nostrils clear. Oral cavity is moist. Ears reveal no drainage. Neck reveals no JVD, carotid bruits, or thyromegaly. CHEST EXAMINATION: Trachea is central. Symmetrical expansion. Lung abbott clear to auscultation and percussion. CARDIAC: Normal S1, S2 with no gallops. No murmurs ABDOMEN: Soft. Bowel sounds normal. No organomegaly. No abdominal bruits. Extremities: reveal no edema. No clubbing or cyanosis Neurologically awake, alert, oriented x3 with well-coordinated movements. No focal deficits noted Skin: No rash or skin lesions. Psychiatric: Coperative. Nonsuicidal Musculoskeletal: No joint swelling or deformity. Normal range of motion. - Labs CBC & Chem 7: 10/25/19 04:55 10/25/19 04:55 Labs: Abnormal Lab Results - Last 24 Hours (Table) 10/24/19 10/24/19 10/24/19 Range/Units 22:06 23:01 23:10 WBC (3.8-10.6) k/uL Neutrophils # (1.3-7.7) k/uL Chloride 114 H (98-107) mmol/L Carbon Dioxide 18 L (22-30) mmol/L BUN 21 H (7-17) mg/dL Creatinine 0.43 L (0.52-1.04) mg/dL Glucose (74-99) mg/dL POC Glucose (mg/dL) 156 H 119 H (75-99) mg/dL 10/25/19 10/25/19 10/25/19 Range/Units 00:06 04:55 04:55 WBC 16.4 H (3.8-10.6) k/uL Neutrophils # 14.2 H (1.3-7.7) k/uL Chloride 110 H (98-107) mmol/L Carbon Dioxide 16 L (22-30) mmol/L BUN 20 H (7-17) mg/dL Creatinine 0.41 L (0.52-1.04) mg/dL Glucose 219 H (74-99) mg/dL POC Glucose (mg/dL) 106 H (75-99) mg/dL 10/25/19 10/25/19 10/25/19 Range/Units 06:46 11:54 16:58 WBC (3.8-10.6) k/uL Neutrophils # (1.3-7.7) k/uL Chloride (98-107) mmol/L Carbon Dioxide (22-30) mmol/L BUN (7-17) mg/dL Creatinine (0.52-1.04) mg/dL Glucose (74-99) mg/dL POC Glucose (mg/dL) 202 H 159 H 223 H (75-99) mg/dL 10/25/19 Range/Units 20:27 WBC (3.8-10.6) k/uL Neutrophils # (1.3-7.7) k/uL Chloride (98-107) mmol/L Carbon Dioxide (22-30) mmol/L BUN (7-17) mg/dL Creatinine (0.52-1.04) mg/dL Glucose (74-99) mg/dL POC Glucose (mg/dL) 165 H (75-99) mg/dL Assessment and Plan Assessment: acute diabetic ketoacidosis likely due to malfunctioning of insulin pump. Severe anion gap metabolic acidosis secondary to DKA. resolved Intractable nausea vomiting and lower abdominal pain. mild hyperglycemia secondary to acidosis. diabetes type 1 insulin-dependent. on Insulin pumpat home. Diabetic peripheral neuropathy chronic low back pain History of migraine headaches chronic constipation Anxiety/depression DVT prophylaxis with heparin subcu Plan: Patient was continued on insulin drip and monitor lites every 4 hours and replace electrolytes. insulin transition to subcu. Titrate as needed. continue with Zofran when necessary for nausea and vomiting. GI and DVT p rophylaxis. chest x-ray and UA showed noevidence of infection. Continue to follow closely and patient will be transferred to MICU. Further recommendations based on the clinical course. Time with Patient: Greater than 30
[2019-10-26 01:58] LABS: Glucose,Whole Blood 131 mg/dL (75-99)
[2019-10-26] MEDS: ACETAMINOPHEN TAB 325 MG TAB PO PRN (04:55)
[2019-10-26] MEDS: BENZOCAINE/MENTHOL LOZENG 1 EACH LOZENGE MUCOUS MEM PRN ×2 (04:55→09:30)
[2019-10-26 05:46] LABS: African American GFR (CKD) >90 (>60 ml/min/1.73 sqM); Blood Urea Nitrogen 14 mg/dL (7-17); Calcium 8.3 mg/dL (8.4-10.2); Carbon Dioxide 22 mmol/L (22-30); Glucose 107 mg/dL (74-99); Non-African American GFR(CKD) >90 (>60 ml/min/1.73 sqM); Sodium 136 mmol/L (137-145)
[2019-10-26 05:48] LABS: Anion Gap 6 mmol/L; Chloride 108 mmol/L (98-107); Potassium 3.3 mmol/L (3.5-5.1)
[2019-10-26 05:50] LABS: Basophils % (A) 0 %; Eosinophils # (A) 0.1 k/uL (0-0.7); Eosinophils % (A) 1 %; HCT 35.2 % (34.0-46.0); HGB 11.5 gm/dL (11.4-16.0); Lymphocytes # (A) 2.4 k/uL (1.0-4.8); Lymphocytes % (A) 25 %; MCH 30.1 pg (25.0-35.0); MCHC 32.6 g/dL (31.0-37.0); MCV 92.2 fL (80.0-100.0); Mean Platelet Volume 7.8; Monocytes # (A) 0.6 k/uL (0-1.0); Monocytes % (A) 6 %; Neutrophils # (A) 6.3 k/uL (1.3-7.7); Neutrophils % (A) 66 %; Platelet Count 279 k/uL (150-450); RBC 3.81 m/uL (3.80-5.40); RDW 13.6 % (11.5-15.5); WBC 9.5 k/uL (3.8-10.6)
[2019-10-26 06:47] LABS: Glucose,Whole Blood 113 mg/dL (75-99)
[2019-10-26] MEDS: INSULIN ASPART (NovoLOG) 100 UNIT/ML VIAL SQ SCH ×4 (06:51→12:41)
[2019-10-26] MEDS: PANTOPRAZOLE 40 MG/10 ML VIAL IVP SCH (07:48)
[2019-10-26] MEDS: ONDANSETRON 4 MG/2 ML VIAL IVP PRN ×2 (07:57→12:38)
[2019-10-26 08:04] VITALS: BP 133/88; PULSE 99; RESP 18; TEMP 97.6
[2019-10-26] MEDS: SODIUM CHLORIDE 0.9% 1,000 ML IV SCH (08:04)
--- NOTE | 2019-10-26 09:16 | PN ---
PROGRESS NOTE PULMONARY/CRITICAL CARE PROGRESS NOTE: DATE OF SERVICE: 10/26/2019 A 34-year-old female seen 2 days ago in the emergency room for DKA. She is doing much better. She is getting saline at 100 mL an hour. Not receiving any supplemental oxygen. In my opinion, the patient could have been discharged yesterday. Her early issue was vomiting which was much better yesterday. She has not had any further issues with nausea, vomiting. No pain. No other complaints. The patient is resting comfortably. In fact, she is sleeping on her left side. No distress whatsoever. Her lab values are back to normal. Current vital signs are reviewed, temperature is 98.2, heart rate 80, respiratory rate 12, blood pressure 142/89 mean 106, room air saturation 95%. Appears in no acute distress. HEENT: Examination is grossly unremarkable. Mucous membranes are moist. NECK: Supple. Full range of motion. No adenopathy. Neck veins are flat. CARDIOVASCULAR: Examination reveals regular rhythm and rate. S1, S2 normal. LUNGS: Reveal clear breath sounds equal. ABDOMEN: Soft, bowel sounds are noted. EXTREMITIES: Intact. No cyanosis, clubbing, or edema. SKIN: Without rash. NEUROLOGIC: Examination is nonfocal. LABS: From this morning, white count 9.5, hemoglobin 11.5, hematocrit 35.2, platelet count 379,000. Sodium 136, potassium 3.3, chloride 108, CO2 is 22, anion gap is 6. BUN and creatinine were 14 and 0.3, glucose is 107. Microbiology is negative or pending. No chest x-ray. Medications are reviewed. ASSESSMENT: 1. Acute diabetic ketoacidosis, resolved. 2. Severe anion gap metabolic acidosis, resolved. 3. Nausea/vomiting, likely secondary to DKA and possibly complicated by diabetic gastroparesis, resolved. 4. History of diabetic end organ involvement including diabetic retinopathy and neuropathy and possibly diabetic gastroparesis. 5. Prior episode of diabetic ketoacidosis. 6. Anxiety/depression. 7. Lifelong nonsmoker. 8. History of migraine cephalgia. 9. Prior history of scalp wound infected by MRSA. PLAN: The patient is doing well. She could be discharged home. No additional recommendations are made. Her primary care physician is Dr. Conroy. She should follow up with an foam rubber curer for better diabetes control. No additional recommendations are made. MMODL / IJN: [id number] /
[2019-10-26] MEDS ORDERED: POTASSIUM CHLORIDE ER 20 MEQ TAB.ER PO STA (11:57)
[2019-10-26 11:59] LABS: Glucose,Whole Blood 182 mg/dL (75-99)
== END 2019-10-26 13:01 | disposition home or self-care (01) | DRG 919 ==
LOC: EC 09:44 → 2SICU 12:13
PROVIDERS: ADMIT Internal Medicine; ATTEND Internal Medicine
DX: T85.694A Other mechanical complication of insulin pump, initial encounter (principal); E10.10 Type 1 diabetes mellitus with ketoacidosis without coma; R64 Cachexia; E10.43 Type 1 diabetes mellitus with diabetic autonomic (poly)neuropathy; E10.42 Type 1 diabetes mellitus with diabetic polyneuropathy; E10.319 Type 1 diabetes mellitus with unspecified diabetic retinopathy without macular edema; T38.3X6A Underdosing of insulin and oral hypoglycemic [antidiabetic] drugs, initial encounter; D72.828 Other elevated white blood cell count; K31.84 Gastroparesis; E86.0 Dehydration; E87.5 Hyperkalemia; F32.9 Major depressive disorder, single episode, unspecified; F41.9 Anxiety disorder, unspecified; G43.909 Migraine, unspecified, not intractable, without status migrainosus; G89.29 Other chronic pain; K59.09 Other constipation; M54.5 Low back pain; Z11.59 Encounter for screening for other viral diseases; Z79.4 Long term (current) use of insulin; Z79.899 Other long term (current) drug therapy; Z86.14 Personal history of Methicillin resistant Staphylococcus aureus infection; Z98.51 Tubal ligation status; Z90.79 Acquired absence of other genital organ(s); Z90.721 Acquired absence of ovaries, unilateral; Z80.8 Family history of malignant neoplasm of other organs or systems; Z82.49 Family history of ischemic heart disease and other diseases of the circulatory system; Z83.3 Family history of diabetes mellitus; Z82.61 Family history of arthritis
CPT/HCPCS: 36415; 36600; 71045; 80048; 80051; 80053; 81001; 81025; 82009; 82150; 82565; 82805; 82947; 83690; 83735; 84100; 84520; 85025; 93005; 96361; 96374; 96375; 99285

== ENCOUNTER 2019-12-23 09:36 | Emergency (ER) | payer OTHER ==
[2019-12-23] MEDS ORDERED: LIDOCAINE 1% INJ 10MG/ML (20 ML MDV) SQ ONE (10:15)
[2019-12-23] MEDS ORDERED: KETOROLAC 15 MG/ML 1 ML VIAL IVP STA (10:16)
[2019-12-23] MEDS ORDERED: SODIUM CHLORIDE 0.9% 1,000 ML IV ONE (10:16)
--- NOTE | 2019-12-23 10:20 | ED ---
General Adult HPI - General Chief complaint: Skin/Abscess/Foreign Body Stated complaint: pelvic pain Time Seen by Provider: 12/23/19 09:50 Source: patient, RN notes reviewed, old records reviewed Mode of arrival: ambulatory Limitations: no limitations - History of Present Illness Initial comments: This Patient is a 34-year-old female who presents for his arms today with complaints of a abscess between her right labia majora and buttocks. Patient reports that she's been having symptoms of frequent diarrhea which causes her to have to wear a pad to cut runny stools. She states that seems to be irritated her skin around the perineum. Patient states the past 3 day she's noticed increasing redness and lump to this area. She is a diabetic. She states that she did not check her blood sugar this morning with a mildly elevated she is managing his insulin shots. Patient states that she's not had any antibiotics in the past month. She denies any nausea or vomiting or fevers. - Related Data Home Medications Medication Instructions Recorded Confirmed ALPRAZolam [Xanax] 0.25 mg PO DAILY PRN 10/21/17 10/24/19 Escitalopram [Lexapro] 10 mg PO DAILY PRN 10/21/17 10/24/19 Insulin Lispro [Admelog] See Protocol SQ CONTINUOUS 02/15/19 10/24/19 Amitriptyline HCl [Elavil] 10 mg PO HS 06/13/19 10/24/19 Pregabalin [Lyrica] 75 mg PO TID 10/24/19 10/24/19 Previous Rx's Medication Instructions Recorded Insulin Glargine,Hum.rec.anlog 15 unit SQ HS #1 pen 10/26/19 [Basaglar Kwikpen U-100] Insulin Lispro [Admelog Solostar] 4 units SQ AC-TID #1 pen 10/26/19 Sulfamethox-Tmp 800-160Mg [Bactrim 2 tab PO BID #40 tab 12/23/19 DS 800-160 mg] Allergies Allergy/AdvReac Type Severity Reaction Status Date / Time No Known Allergies Allergy Verified 12/23/19 09:44 Review of Systems ROS Statement: Those systems with pertinent positive or pertinent negative responses have been documented in the HPI. ROS Other: All systems not noted in ROS Statement are negative. Past Medical History Past Medical History: Diabetes Mellitus, Syncope Additional Past Medical History / Comment(s): IDDM type I, DKA, neuropathy bilateral legs/feet, chronic low back pain, bilateral leg pain, migraines, L ovarian cysts, chronic constipation. History of Any Multi-Drug Resistant Organisms: MRSA Date of last positivie culture/infection: 02/15/19 MDRO Source:: Head Past Surgical History: Tubal Ligation, Uterine Ablation Additional Past Surgical History / Comment(s): 12/22/17 colonoscopy-normal, LAPAROSCOPIC REMOVAL TUBE AND OVARY-Right d/t endometriosis, D&C, HYSTEROSCOPY, NOVASURE ABLATION 2016. 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 Past Psychological History: Anxiety, Depression Smoking Status: Never smoker Past Alcohol Use History: None Reported Past Drug Use History: None Reported - Past Family History Mother Family Medical History: Rheumatoid Arthritis (RA) Additional Family Medical History / Comment(s): Mother is 63 yrs old. Father Family Medical History: Cancer, Diabetes Mellitus, Deep Vein Thrombosis (DVT), Hypertension Additional Family Medical History / Comment(s): THROAT CA- of but pt does not know at what age. General Exam - General Exam Comments Initial Comments: 34 -year-old female. Alert and oriented. Limitations: no limitations General appearance: alert, in no apparent distress Head exam: Present: atraumatic, normocephalic, normal inspection Eye exam: Present: normal appearance ENT exam: Present: normal exam, mucous membranes moist Neck exam: Present: normal inspection. Absent: tenderness, meningismus, lymphadenopathy Respiratory exam: Present: normal lung sounds bilaterally. Absent: respiratory distress, wheezes, rales, rhonchi, stridor Cardiovascular Exam: Present: regular rate, normal rhythm, normal heart sounds. Absent: systolic murmur, diastolic murmur, rubs, gallop, clicks GI/Abdominal exam: Present: soft, normal bowel sounds. Absent: distended, tenderness, guarding, rebound, rigid External exam: Present: erythema (Patient has erythema and fluctuant area of abscess and firmness over the right side of her perineum. There is a 2 cm area of fluctuation in the center.). Absent: normal external exam Extremities exam: Present: normal inspection, full ROM, normal capillary refill. Absent: tenderness, pedal edema, joint swelling, calf tenderness Back exam: Present: normal inspection, full ROM Neurological exam: Present: alert, oriented X3, CN II-XII intact Psychiatric exam: Present: normal affect, normal mood Skin exam: Present: warm, dry, intact, normal color. Absent: rash Course Vital Signs 12/23/19 12/23/19 09:41 12:43 Temperature 98.2 F 98.1 F Pulse Rate 112 H 88 Respiratory 18 20 Rate Blood Pressure 116/82 113/77 O2 Sat by Pulse 100 99 Oximetry Procedures - [place] Protocol (Time Out) Procedure Performed:: incision and drainage of right perineal abscess Performing Provider: Crystal Mejias Nurse: Allyson Kwong Timeout Date: 12/23/19 Timeout Time: 10:37 Patient Identification (2 identifiers required): Verbal, Name Patient/Legal Senior Hris Analyst has Confirmed: Identity, Site, Procedure Site: R perineum Site Marked: Yes Site Verified With Patient/Guardian: Yes Final Confirmation: Procedure - Incision & Drainage Indication: R perineal abscess Size (cm): 2 Anesthetic Used: lidocaine 1% Amount (mLs): 5 I&D Cleaning Method: Iodine Sterile Field Used?: Yes Scalpel Used: #11 Needle Aspiration Performed?: No I&D Drainage Obtained: Pus, Blood Packing: Iodoform Culture Obtained?: Yes Patient Tolerated Procedure: well, no complications Medical Decision Making - Medical Decision Making This is a 34-year-old female presents returns today with a right labial/perineal abscess for the past 3 days. She is a diabetic. Patient was given IV fluids, was given IV Rocephin. The abscess was evaluated by myself and Dr. Fontaine. Patient had incision and drainge and 10 cc of fluid removed. Patient had iodoform packing. Discussed close follow up with PCP. - Lab Data Result diagrams: 12/23/19 11:04 12/23/19 11:04 Lab Results 12/23/19 12/23/19 12/23/19 Range/Units 11:04 11:04 11:04 WBC 10.4 (3.8-10.6) k/uL RBC 4.39 (3.80-5.40) m/uL Hgb 12.7 (11.4-16.0) gm/dL Hct 38.5 (34.0-46.0) % MCV 87.8 (80.0-100.0) fL MCH 28.9 (25.0-35.0) pg MCHC 32.9 (31.0-37.0) g/dL RDW 12.2 (11.5-15.5) % Plt Count 360 (150-450) k/uL Neutrophils % 68 % Lymphocytes % 24 % Monocytes % 4 % Eosinophils % 3 % Basophils % 1 % Neutrophils # 7.1 (1.3-7.7) k/uL Lymphocytes # 2.5 (1.0-4.8) k/uL Monocytes # 0.4 (0-1.0) k/uL Eosinophils # 0.3 (0-0.7) k/uL Basophils # 0.1 (0-0.2) k/uL Sodium 140 (137-145) mmol/L Potassium 3.4 L (3.5-5.1) mmol/L Chloride 104 (98-107) mmol/L Carbon Dioxide 25 (22-30) mmol/L Anion Gap 11 mmol/L BUN 7 (7-17) mg/dL Creatinine 0.32 L (0.52-1.04) mg/dL Est GFR (CKD-EPI)AfAm >90 (>60 ml/min/1.73 sqM) Est GFR (CKD-EPI)NonAf >90 (>60 ml/min/1.73 sqM) Glucose 182 H (74-99) mg/dL Lactic Ac Sepsis Rflx Plasma Lactic Acid Silvino 2.1 H* (0.7-2.0) mmol/L Calcium 9.7 (8.4-10.2) mg/dL Total Bilirubin 0.7 (0.2-1.3) mg/dL AST 15 (14-36) U/L ALT 11 (4-34) U/L Alkaline Phosphatase 162 H (38-126) U/L Total Protein 8.0 (6.3-8.2) g/dL Albumin 4.3 (3.5-5.0) g/dL 12/23/19 Range/Units 11:48 WBC (3.8-10.6) k/uL RBC (3.80-5.40) m/uL Hgb (11.4-16.0) gm/dL Hct (34.0-46.0) % MCV (80.0-100.0) fL MCH (25.0-35.0) pg MCHC (31.0-37.0) g/dL RDW (11.5-15.5) % Plt Count (150-450) k/uL Neutrophils % % Lymphocytes % % Monocytes % % Eosinophils % % Basophils % % Neutrophils # (1.3-7.7) k/uL Lymphocytes # (1.0-4.8) k/uL Monocytes # (0-1.0) k/uL Eosinophils # (0-0.7) k/uL Basophils # (0-0.2) k/uL Sodium (137-145) mmol/L Potassium (3.5-5.1) mmol/L Chloride (98-107) mmol/L Carbon Dioxide (22-30) mmol/L Anion Gap mmol/L BUN (7-17) mg/dL Creatinine (0.52-1.04) mg/dL Est GFR (CKD-EPI)AfAm (>60 ml/min/1.73 sqM) Est GFR (CKD-EPI)NonAf (>60 ml/min/1.73 sqM) Glucose (74-99) mg/dL Lactic Ac Sepsis Rflx Y Plasma Lactic Acid Silvino (0.7-2.0) mmol/L Calcium (8.4-10.2) mg/dL Total Bilirubin (0.2-1.3) mg/dL AST (14-36) U/L ALT (4-34) U/L Alkaline Phosphatase (38-126) U/L Total Protein (6.3-8.2) g/dL Albumin (3.5-5.0) g/dL Disposition Clinical Impression: Perineal abscess Disposition: HOME SELF-CARE Condition: Good Instructions (If sedation given, give patient instructions): Abscess Incision and Drainage (DC) Additional Instructions: Please use medication as discussed. Remove the packing in 2 days. Follow-up with PCP and surgeon. Please follow up with family doctor if symptoms have not improved over the next two days. Please return to the emergency room if your symptoms increase or worsen or for any other concerns. Prescriptions: Sulfamethox-Tmp 800-160Mg [Bactrim DS 800-160 mg] 2 tab PO BID #40 tab Is patient prescribed a controlled substance at d/c from ED?: No Referrals: Jairo Conroy MD [Primary Care Provider] - 1-2 days Donnie Carpenter DO [Doctor of Osteopathic Medicine] - 1-2 days Time of Disposition: 12:30
[2019-12-23] MEDS ORDERED: cefTRIAXone IN SWFI 1,000 MG/10 ML SYRINGE IVP STA (10:28)
[2019-12-23] MEDS ORDERED: SODIUM CHLORIDE 0.9% 1,000 ML IV SCH (10:30)
[2019-12-23] MEDS ORDERED: HYDROcodone/APAP 5-325MG 1 EACH TAB PO STA (10:55)
[2019-12-23 11:23] LABS: Basophils # (A) 0.1 k/uL (0-0.2); Basophils % (A) 1 %; Eosinophils # (A) 0.3 k/uL (0-0.7); Eosinophils % (A) 3 %; HCT 38.5 % (34.0-46.0); HGB 12.7 gm/dL (11.4-16.0); Lymphocytes # (A) 2.5 k/uL (1.0-4.8); Lymphocytes % (A) 24 %; MCH 28.9 pg (25.0-35.0); MCHC 32.9 g/dL (31.0-37.0); MCV 87.8 fL (80.0-100.0); Mean Platelet Volume 8.2; Monocytes # (A) 0.4 k/uL (0-1.0); Monocytes % (A) 4 %; Neutrophils # (A) 7.1 k/uL (1.3-7.7); Neutrophils % (A) 68 %; Platelet Count 360 k/uL (150-450); RBC 4.39 m/uL (3.80-5.40); RDW 12.2 % (11.5-15.5); WBC 10.4 k/uL (3.8-10.6)
[2019-12-23 11:43] LABS: ALT 11 U/L (4-34); AST 15 U/L (14-36); African American GFR (CKD) >90 (>60 ml/min/1.73 sqM); Albumin 4.3 g/dL (3.5-5.0); Alkaline Phosphatase 162 U/L (38-126); Anion Gap 11 mmol/L; Blood Urea Nitrogen 7 mg/dL (7-17); Calcium 9.7 mg/dL (8.4-10.2); Carbon Dioxide 25 mmol/L (22-30); Chloride 104 mmol/L (98-107); Glucose 182 mg/dL (74-99); Non-African American GFR(CKD) >90 (>60 ml/min/1.73 sqM); Potassium 3.4 mmol/L (3.5-5.1); Sodium 140 mmol/L (137-145); Total Bilirubin 0.7 mg/dL (0.2-1.3)
[2019-12-23 12:54] VITALS: BP 113/77; PULSE 88; RESP 20; TEMP 98.1
== END 2019-12-23 12:50 | disposition home or self-care (01) ==
LOC: EC 09:36
DX: L02.215 Cutaneous abscess of perineum (principal); E10.10 Type 1 diabetes mellitus with ketoacidosis without coma; E10.40 Type 1 diabetes mellitus with diabetic neuropathy, unspecified; F41.9 Anxiety disorder, unspecified; F32.9 Major depressive disorder, single episode, unspecified; G89.29 Other chronic pain; M79.605 Pain in left leg; M79.604 Pain in right leg; M54.5 Low back pain; Z79.4 Long term (current) use of insulin; Z79.899 Other long term (current) drug therapy; Z98.51 Tubal ligation status
CPT/HCPCS: 99284; 56405; 96374; 96375; 96361 ×2; 36415; 80053; 83605; 85025; 87040; 87070; 87205; J2001; J0696; J1885

== ENCOUNTER 2020-01-02 08:15 | Day surgery (SDC) | payer OTHER ==
[2019-12-29 09:28] VITALS: BMI 20.4
[~2020-01-02 08:15] MED LIST changes: +LIDOCAINE 1% (10MG/ML) FOR IV START INTRADERMA PRN; -LIDOCAINE 1% 20 ML VIAL (10MG/ML) FOR IV START INTRADERMA PRN
[2020-01-02 08:38] VITALS: RESP 16; TEMP 97.5
[2020-01-02 09:05] LABS: Glucose,Whole Blood 326 mg/dL (75-99)
[2020-01-02] MEDS ORDERED: LIDOCAINE 1% INJ 10MG/ML (20 ML MDV) ONE (10:24)
[2020-01-02] MEDS ORDERED: PROPOFOL 10 MG/ML 20 ML VIAL IV ONE (10:24)
--- NOTE | 2020-01-02 11:11 | P.PCN ---
Date of Procedure: 01/02/20 Description of Procedure: BRIEF HISTORY: Patient is a 34-year-old female presenting for outpatient colonoscopy for evaluation of diarrhea. Patient reports multiple loose bowel movements. Previously had colonoscopy in 2018 for constipation. PROCEDURE PERFORMED: Colonoscopy with biopsies. PREOPERATIVE DIAGNOSIS: Diarrhea, altered bowel function. ESTIMATED BLOOD LOSS: Minimal. IV sedation per Anesthesia. PROCEDURE: After informed consent was obtained, the patient, was brought into the endoscopy unit. IV sedation was administered by Anesthesia under continuous monitoring. Digital rectal examination was normal. Initially the Olympus CF-190 flexible video colonoscope was then inserted in the rectum, gradually advanced into the cecum without any difficulty. Careful examination was performed as the scope was gradually being withdrawn. Ileocecal valve and the appendiceal orifice were visualized and appeared normal. Prep was poor with a large amount of semisolid stool throughout the entire colon. Mucosa of the cecum, ascending colon, transverse colon, descending colon, sigmoid colon, and rectum appeared normal. Retroflexion was performed in the rectum and no lesions were seen, mild low- grade internal hemorrhoids noted. Random biopsies of the right and left colon in the setting of altered bowel function. The patient tolerated the procedure well. IMPRESSION: Normal-appearing colon from rectum to cecum, however complete visualization of the mucosa severely limited by poor prep. Poor prep with large amount of semisolid stool throughout the entire colon. Low-grade internal hemorrhoids. RECOMMENDATIONS: Findings of this examination were discussed with the patient.. Okay to resume diet. Okay to resume medications. Await biopsies from random colon (right and left colon). Continue symptomatic treatment of diarrhea.
[2020-01-02 11:36] VITALS: BP 117/84; PULSE 105
[2020-01-02 11:41] LABS: Glucose,Whole Blood 269 mg/dL (75-99)
== END 2020-01-02 12:27 | disposition home or self-care (01) ==
LOC: ORWHC2ENDO 08:15
PROVIDERS: ATTEND Internal Medicine
DX: K64.8 Other hemorrhoids (principal); R19.7 Diarrhea, unspecified; K59.00 Constipation, unspecified; E11.9 Type 2 diabetes mellitus without complications; Z80.0 Family history of malignant neoplasm of digestive organs; Z79.899 Other long term (current) drug therapy; Z98.51 Tubal ligation status; Z98.890 Other specified postprocedural states; Z96.41 Presence of insulin pump (external) (internal)
CPT/HCPCS: 81025; 45380; J2001; J2704; 88305

== ENCOUNTER 2020-04-26 14:37 | Observation (INO) | payer OTHER ==
[2020-04-26 14:49] LABS: Glucose,Whole Blood >600 mg/dL (75-99)
[2020-04-26] MEDS ORDERED: SODIUM CHLORIDE 0.9% 1,000 ML IV STA ×2 (15:25→15:26)
--- NOTE | 2020-04-26 15:27 | ED ---
General Adult HPI - General Chief complaint: Dizziness Stated complaint: Dizziness, Diabetic Time Seen by Provider: 04/26/20 14:59 Source: patient Mode of arrival: wheelchair Limitations: no limitations - History of Present Illness Initial comments: Dictation was produced using [employer] dictation software. please excuse any grammatical, word or spelling errors. This patient was cared for during a federal and state declared state of emergency secondary to Covid 19 Chief Complaint: 35-year-old female past medical history of type 1 diabetes presents with hyperglycemia and dizziness History of Present Illness: Patient is a 35-year-old female she has past medical history of type 1 diabetes. She is insulin-dependent diabetic. Patient had just established care with a new religious assistant at [facility]. She had labs drawn 2 days ago and was told today of her results and that she should come to the emergency department. Patient states she has been in DKA multiple times past. She reports that she's been compliant with her diabetes medications. She reports that she's been having her medications adjusted. She is told that her glucose was around 800 from lab draws done 2 days ago. Patient states she does have some vague abdominal pain. Denies any fever chills constitutional symptoms. Polyuria and polydipsia. She reports she's been dizzy for greater than one week. Denies sensation of the room spinning The ROS documented in this emergency department record has been reviewed and confirmed by me. Those systems with pertinent positive or negative responses have been documented in the HPI. All other systems are other negative and/or noncontributory. PHYSICAL EXAM: General Impression: Alert and oriented x3, not in acute distress, cachectic HEENT: Normocephalic atraumatic, extra-ocular movements intact, pupils equal and reactive to light bilaterally, dry mucous membranes Cardiovascular: Heart regular rate and rhythm Chest: Able to complete full sentences, no retractions, no tachypnea Abdomen: abdomen soft, non-tender, non-distended, no organomegaly Musculoskeletal: Pulses present and equal in all extremities, no peripheral edema Motor: no focal deficits noted Neurological: CN II-XII grossly intact, no focal motor or sensory deficits noted Skin: Intact with no visualized rashes Psych: Normal affect and mood ED course: 35-year-old female presents with abnormal outpatient lab and dizziness. Upon arrival shows heart rate 139, worse vital signs within acceptable limits. Laboratory evaluation obtained. CBC unremarkable. Coag panel is negative. Metabolic panel shows no acidosis. Sodium 132. Glucose 790 with a lactic acidosis of 4.3. Rest of labs grossly unremarkable. Glucose is 4+. Clinical presentation consistent with hyperglycemia and starvation acidosis. Patient be admitted for glucose control and fluid rehydration with medical monitoring. Case discussed Dr. Pena who is willing to accept patients care for admission. EKG interpretation: Ventricular rate 124, sinus tachycardia,. 140, QRS 70, QTc 468. No VT prolongation, no QTC prolongation, no ST or T-wave changes noted. EKG compared to 04/26/2020 showing no changes. Overall, this EKG is unremarkable - Related Data Home Medications Medication Instructions Recorded Confirmed Pregabalin [Lyrica] 75 mg PO BID 10/24/19 04/26/20 ALPRAZolam [Xanax] 0.5 mg PO HS PRN 04/26/20 04/26/20 Acetaminophen [Tylenol Arthritis] 1,300 mg PO Q8H PRN 04/26/20 04/26/20 Diphenox-Atrop 2.5-0.025 mg 1 tab PO BID PRN 04/26/20 04/26/20 [Lomotil] Escitalopram [Lexapro] 20 mg PO DAILY 04/26/20 04/26/20 INSULIN LISPRO (humaLOG) [humaLOG] 5 units SQ AC-TID 04/26/20 04/26/20 INSULIN LISPRO (humaLOG) [humaLOG] See Protocol SQ AC-TID PRN 04/26/20 04/26/20 Ibuprofen [Motrin] 800 mg PO TID PRN 04/26/20 04/26/20 Insulin Glargine,Hum.rec.anlog 10 unit SQ HS 04/26/20 04/26/20 [Basaglar Kwikpen U-100] tiZANidine [Zanaflex] 4 mg PO BID 04/26/20 04/26/20 traZODone HCL 150 mg PO HS 04/26/20 04/26/20 Allergies Allergy/AdvReac Type Severity Reaction Status Date / Time No Known Allergies Allergy Verified 04/26/20 16:01 Review of Systems ROS Statement: Those systems with pertinent positive or pertinent negative responses have been documented in the HPI. ROS Other: All systems not noted in ROS Statement are negative. Past Medical History Past Medical History: Diabetes Mellitus, Syncope Additional Past Medical History / Comment(s): IDDM type I, DKA, neuropathy bilateral legs/feet, chronic low back pain, bilateral leg pain, migraines, hx chronic constipation. Hx HPV. Having diarrhea with any intake of food, fluids for 1 month. History of Any Multi-Drug Resistant Organisms: MRSA Date of last positivie culture/infection: 02/15/19 MDRO Source:: Head Past Surgical History: Tubal Ligation, Uterine Ablation Additional Past Surgical History / Comment(s): 12/22/17 colonoscopy-normal, LAPAROSCOPIC REMOVAL Rt TUBE AND OVARY d/t endometriosis, D&C, HYSTEROSCOPY, NOVASURE ABLATION 2015. 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 Past Psychological History: Anxiety, Depression Smoking Status: Never smoker Past Alcohol Use History: None Reported Past Drug Use History: None Reported - Past Family History Mother Family Medical History: Rheumatoid Arthritis (RA) Additional Family Medical History / Comment(s): Mother is 63 yrs old. Father Family Medical History: Cancer, Diabetes Mellitus, Deep Vein Thrombosis (DVT), Hypertension Additional Family Medical History / Comment(s): THROAT CA- of but pt does not know at what age. General Exam Limitations: no limitations Course Vital Signs 04/26/20 04/26/20 04/26/20 14:39 15:00 15:30 Temperature 99.1 F Pulse Rate 139 H 125 H 122 H Respiratory 18 16 16 Rate Blood Pressure 130/82 139/97 148/94 O2 Sat by Pulse 98 100 100 Oximetry 04/26/20 16:00 Temperature Pulse Rate 124 H Respiratory 16 Rate Blood Pressure 145/89 O2 Sat by Pulse 100 Oximetry Medical Decision Making - Lab Data Result diagrams: 04/26/20 15:07 04/26/20 15:07 Lab Results 04/26/20 04/26/20 04/26/20 Range/Units 14:48 15:07 15:07 WBC 8.1 (3.8-10.6) k/uL RBC 4.61 (3.80-5.40) m/uL Hgb 12.8 (11.4-16.0) gm/dL Hct 41.6 (34.0-46.0) % MCV 90.1 (80.0-100.0) fL MCH 27.7 (25.0-35.0) pg MCHC 30.7 L (31.0-37.0) g/dL RDW 12.4 (11.5-15.5) % Plt Count 416 (150-450) k/uL MPV 7.7 Neutrophils % 68 % Lymphocytes % 23 % Monocytes % 4 % Eosinophils % 2 % Basophils % 1 % Neutrophils # 5.5 (1.3-7.7) k/uL Lymphocytes # 1.9 (1.0-4.8) k/uL Monocytes # 0.3 (0-1.0) k/uL Eosinophils # 0.1 (0-0.7) k/uL Basophils # 0.1 (0-0.2) k/uL Hypochromasia Slight PT 9.3 (9.0-12.0) sec INR 0.9 (<1.2) APTT 21.5 L (22.0-30.0) sec VBG pH (7.31-7.41) VBG pCO2 (37-51) mmHg VBG HCO3 (24-28) mmol/L Sodium (137-145) mmol/L Potassium (3.5-5.1) mmol/L Chloride (98-107) mmol/L Carbon Dioxide (22-30) mmol/L Anion Gap mmol/L BUN (7-17) mg/dL Creatinine (0.52-1.04) mg/dL Est GFR (CKD-EPI)AfAm (>60 ml/min/1.73 sqM) Est GFR (CKD-EPI)NonAf (>60 ml/min/1.73 sqM) Glucose (74-99) mg/dL POC Glucose (mg/dL) >600 H (75-99) mg/dL POC Glu Sheet Metal Duct Installer Helper ID Shakir Mahajan Plasma Lactic Acid Silvino (0.7-2.0) mmol/L Calcium (8.4-10.2) mg/dL Magnesium (1.6-2.3) mg/dL Total Bilirubin (0.2-1.3) mg/dL AST (14-36) U/L ALT (4-34) U/L Alkaline Phosphatase (38-126) U/L Troponin I (0.000-0.034) ng/mL Total Protein (6.3-8.2) g/dL Albumin (3.5-5.0) g/dL Urine Color Urine Appearance (Clear) Urine pH (5.0-8.0) Ur Specific [place] (1.001-1.035) Urine Protein (Negative) Urine Glucose (UA) (Negative) Urine Ketones (Negative) Urine Blood (Negative) Urine Nitrite (Negative) Urine Bilirubin (Negative) Urine Urobilinogen (<2.0) mg/dL Ur Leukocyte Esterase (Negative) Urine HCG, Qual (Not Detectd) 04/26/20 04/26/20 04/26/20 Range/Units 15:07 15:07 15:07 WBC (3.8-10.6) k/uL RBC (3.80-5.40) m/uL Hgb (11.4-16.0) gm/dL Hct (34.0-46.0) % MCV (80.0-100.0) fL MCH (25.0-35.0) pg MCHC (31.0-37.0) g/dL RDW (11.5-15.5) % Plt Count (150-450) k/uL MPV Neutrophils % % Lymphocytes % % Monocytes % % Eosinophils % % Basophils % % Neutrophils # (1.3-7.7) k/uL Lymphocytes # (1.0-4.8) k/uL Monocytes # (0-1.0) k/uL Eosinophils # (0-0.7) k/uL Basophils # (0-0.2) k/uL Hypochromasia PT (9.0-12.0) sec INR (<1.2) APTT (22.0-30.0) sec VBG pH (7.31-7.41) VBG pCO2 (37-51) mmHg VBG HCO3 (24-28) mmol/L Sodium 132 L (137-145) mmol/L Potassium 4.1 (3.5-5.1) mmol/L Chloride 94 L (98-107) mmol/L Carbon Dioxide 26 (22-30) mmol/L Anion Gap 12 mmol/L BUN 3 L (7-17) mg/dL Creatinine 0.36 L (0.52-1.04) mg/dL Est GFR (CKD-EPI)AfAm >90 (>60 ml/min/1.73 sqM) Est GFR (CKD-EPI)NonAf >90 (>60 ml/min/1.73 sqM) Glucose 790 H* (74-99) mg/dL POC Glucose (mg/dL) (75-99) mg/dL POC Glu Sheet Metal Duct Installer Helper ID Plasma Lactic Acid Silvino 4.3 H* (0.7-2.0) mmol/L Calcium 9.4 (8.4-10.2) mg/dL Magnesium 2.0 (1.6-2.3) mg/dL Total Bilirubin 0.6 (0.2-1.3) mg/dL AST 16 (14-36) U/L ALT 16 (4-34) U/L Alkaline Phosphatase 193 H (38-126) U/L Troponin I <0.012 (0.000-0.034) ng/mL Total Protein 7.9 (6.3-8.2) g/dL Albumin 4.2 (3.5-5.0) g/dL Urine Color Urine Appearance (Clear) Urine pH (5.0-8.0) Ur Specific [place] (1.001-1.035) Urine Protein (Negative) Urine Glucose (UA) (Negative) Urine Ketones (Negative) Urine Blood (Negative) Urine Nitrite (Negative) Urine Bilirubin (Negative) Urine Urobilinogen (<2.0) mg/dL Ur Leukocyte Esterase (Negative) Urine HCG, Qual (Not Detectd) 04/26/20 04/26/20 04/26/20 Range/Units 15:07 15:15 15:15 WBC (3.8-10.6) k/uL RBC (3.80-5.40) m/uL Hgb (11.4-16.0) gm/dL Hct (34.0-46.0) % MCV (80.0-100.0) fL MCH (25.0-35.0) pg MCHC (31.0-37.0) g/dL RDW (11.5-15.5) % Plt Count (150-450) k/uL MPV Neutrophils % % Lymphocytes % % Monocytes % % Eosinophils % % Basophils % % Neutrophils # (1.3-7.7) k/uL Lymphocytes # (1.0-4.8) k/uL Monocytes # (0-1.0) k/uL Eosinophils # (0-0.7) k/uL Basophils # (0-0.2) k/uL Hypochromasia PT (9.0-12.0) sec INR (<1.2) APTT (22.0-30.0) sec VBG pH 7.36 (7.31-7.41) VBG pCO2 46 (37-51) mmHg VBG HCO3 25 (24-28) mmol/L Sodium (137-145) mmol/L Potassium (3.5-5.1) mmol/L Chloride (98-107) mmol/L Carbon Dioxide (22-30) mmol/L Anion Gap mmol/L BUN (7-17) mg/dL Creatinine (0.52-1.04) mg/dL Est GFR (CKD-EPI)AfAm (>60 ml/min/1.73 sqM) Est GFR (CKD-EPI)NonAf (>60 ml/min/1.73 sqM) Glucose (74-99) mg/dL POC Glucose (mg/dL) (75-99) mg/dL POC Glu Sheet Metal Duct Installer Helper ID Plasma Lactic Acid Silvino (0.7-2.0) mmol/L Calcium (8.4-10.2) mg/dL Magnesium (1.6-2.3) mg/dL Total Bilirubin (0.2-1.3) mg/dL AST (14-36) U/L ALT (4-34) U/L Alkaline Phosphatase (38-126) U/L Troponin I (0.000-0.034) ng/mL Total Protein (6.3-8.2) g/dL Albumin (3.5-5.0) g/dL Urine Color Colorless Urine Appearance Clear (Clear) Urine pH 6.5 (5.0-8.0) Ur Specific [place] 1.035 (1.001-1.035) Urine Protein Negative (Negative) Urine Glucose (UA) 4+ H (Negative) Urine Ketones Negative (Negative) Urine Blood Negative (Negative) Urine Nitrite Negative (Negative) Urine Bilirubin Negative (Negative) Urine Urobilinogen <2.0 (<2.0) mg/dL Ur Leukocyte Esterase Negative (Negative) Urine HCG, Qual Not Detected (Not Detectd) Disposition Clinical Impression: Lactic acidosis, Dehydration Disposition: ADMITTED IP TO THIS [facility] Condition: Fair Referrals: Jairo Conroy MD [Primary Care Provider] - 1-2 days Decision Time: 17:07
[2020-04-26 15:35] LABS: Basophils # (A) 0.1 k/uL (0-0.2); Basophils % (A) 1 %; Eosinophils # (A) 0.1 k/uL (0-0.7); Eosinophils % (A) 2 %; HCT 41.6 % (34.0-46.0); HGB 12.8 gm/dL (11.4-16.0); Hypochromasia Slight; Lymphocytes # (A) 1.9 k/uL (1.0-4.8); Lymphocytes % (A) 23 %; MCH 27.7 pg (25.0-35.0); MCHC 30.7 g/dL (31.0-37.0); MCV 90.1 fL (80.0-100.0); Mean Platelet Volume 7.7; Monocytes # (A) 0.3 k/uL (0-1.0); Monocytes % (A) 4 %; Neutrophils # (A) 5.5 k/uL (1.3-7.7); Neutrophils % (A) 68 %; Platelet Count 416 k/uL (150-450); RBC 4.61 m/uL (3.80-5.40); RDW 12.4 % (11.5-15.5); WBC 8.1 k/uL (3.8-10.6)
[2020-04-26 15:36] LABS: Appearance,Urine Clear (Clear); Bilirubin,Urine Negative (Negative); Blood,Urine Negative (Negative); Color,Urine Colorless; Glucose,Urine (UA) 4+ (Negative); Ketones,Urine Negative (Negative); Leukocyte Esterase,Urine Negative (Negative); Nitrite,Urine Negative (Negative); PH, Urine 6.5 (5.0-8.0); Protein,Urine Negative (Negative); Specific Gravity,Urine 1.035 (1.001-1.035); Urobilinogen,Urine <2.0 mg/dL (<2.0)
[2020-04-26 15:39] LABS: VBG PH 7.36 (7.31-7.41)
--- NOTE | 2020-04-26 15:43 | XR ---
EXAMINATION TYPE: XR chest 1V portable DATE OF EXAM: 04/26/2020 COMPARISON: 10/24/2019 HISTORY: Chest pain TECHNIQUE: Single frontal view of the chest is obtained. FINDINGS: There is no focal air space opacity, pleural effusion, or pneumothorax seen. The cardiac silhouette size is within normal limits. The osseous structures are intact. IMPRESSION: 1. No acute process.
[2020-04-26 15:49] LABS: Potassium 4.1 mmol/L (3.5-5.1)
[2020-04-26 15:50] LABS: ALT 16 U/L (4-34); AST 16 U/L (14-36); African American GFR (CKD) >90 (>60 ml/min/1.73 sqM); Albumin 4.2 g/dL (3.5-5.0); Alkaline Phosphatase 193 U/L (38-126); Anion Gap 12 mmol/L; Blood Urea Nitrogen 3 mg/dL (7-17); Calcium 9.4 mg/dL (8.4-10.2); Carbon Dioxide 26 mmol/L (22-30); Chloride 94 mmol/L (98-107); Non-African American GFR(CKD) >90 (>60 ml/min/1.73 sqM); Sodium 132 mmol/L (137-145); Total Bilirubin 0.6 mg/dL (0.2-1.3); Total Protein 7.9 g/dL (6.3-8.2)
[2020-04-26 15:58] LABS: INR 0.9 (<1.2); Prothrombin Time 9.3 sec (9.0-12.0)
[2020-04-26 15:59] LABS: Partial Thromboplastin Time 21.5 sec (22.0-30.0)
[2020-04-26 16:06] LABS: Glucose 790 mg/dL (74-99)
[2020-04-26] MEDS ORDERED: INSULIN REGULAR 100 UNIT/ML VIAL IV ONE (16:46)
[2020-04-26] MEDS ORDERED: NALOXONE 0.4 MG/ML 1 ML VIAL IV PRN (17:02)
[2020-04-26 17:30] LABS: Glucose,Whole Blood 431 mg/dL (75-99)
[2020-04-26] MEDS: MORPHINE SULFATE 4 MG/ML SYRINGE IVP PRN ×2 (17:37→22:02)
[2020-04-26 18:24] LABS: Glucose,Whole Blood 329 mg/dL (75-99)
[2020-04-26] MEDS: INSULIN ASPART (NovoLOG) 100 UNIT/ML VIAL SQ SCH ×2 (18:33→22:02)
[2020-04-26] MEDS: SODIUM CHLORIDE 0.9% 1,000 ML IV SCH (18:34)
[2020-04-26 22:01] LABS: Glucose,Whole Blood 286 mg/dL (75-99)
[2020-04-27] MEDS: SODIUM CHLORIDE 0.9% 1,000 ML IV SCH ×2 (03:58→11:48)
[2020-04-27] MEDS: MORPHINE SULFATE 4 MG/ML SYRINGE IVP PRN (06:45)
[2020-04-27 07:49] LABS: Glucose,Whole Blood 241 mg/dL (75-99)
[2020-04-27] MEDS: INSULIN ASPART (NovoLOG) 100 UNIT/ML VIAL SQ SCH (08:09)
[2020-04-27 08:15] VITALS: BP 111/71; PULSE 107; RESP 18; TEMP 97.1
[2020-04-27] MEDS ORDERED: traMADol 50 MG TAB PO PRN (10:05)
[2020-04-27] MEDS ORDERED: DIPHENOX-ATROP 2.5-0.025 MG 1 EACH TAB PO PRN (10:38)
[2020-04-27] MEDS ORDERED: ACETAMINOPHEN TAB 500 MG TAB PO PRN (10:38)
[2020-04-27] MEDS ORDERED: ALPRAZolam 0.5 MG TAB PO PRN (10:38)
[2020-04-27 11:24] LABS: Glucose,Whole Blood 247 mg/dL (75-99)
[2020-04-27] MEDS ORDERED: INSULIN ASPART (NovoLOG) 100 UNIT/ML VIAL SQ SCH (12:30)
--- NOTE | 2020-04-27 13:07 | P.HPIM ---
History of Present Illness Patient is a 35-year-old the female came in as of highly elevated blood sugars. Marketing Operations Coordinator send the patient to ER because of her highly elevated blood sugars of over 800. And patient came in the basic metabolic profile did show highly elevated blood sugars of 790 but patient was not in DKA patient is type I diabetic and patient blood sugars after that remained in 200s. Patient does use 10 units of long-acting insulin and 5 units with each meal. Patient was also complained of lightheadedness. Patient had a syncope about a week ago after which patient was seen in ER and patient had a few testing done along with CT of the head and was sent home after that. Patient also complaining of chronic diarrhea multiple episodes a day patient the serum creatinine is 0.36. Patient had a colonoscopy and is being evaluated for this chronic diarrhea as an outpatient. Blood sugars came down significantly just with IV insulin 10 units and patient is only on sliding scale insulin at this time patient doesn't have any significant anion gap doesn't have any metabolic acidosis. phase her glucometer is nonfunctioning. Review of Systems REVIEW OF SYSTEMS: CONSTITUTIONAL: No fever, no malaise, no fatigue. HEENT: No recent visual problems or hearing problems. Denied any sore throat. CARDIOVASCULAR: No chest pain, orthopnea, PND, no palpitations, no syncope. PULMONARY: No shortness of breath, no cough, no hemoptysis. GASTROINTESTINAL: No diarrhea, no nausea, no vomiting, no abdominal pain. NEUROLOGICAL: No headaches, no weakness, no numbness. HEMATOLOGICAL: Denies any bleeding or petechiae. GENITOURINARY: Denies any burning micturition, frequency, or urgency. MUSCULOSKELETAL/RHEUMATOLOGICAL: Denies any joint pain, swelling, or any muscle pain. ENDOCRINE: Denies any polyuria or polydipsia. The rest of the 14-point review of systems is negative. Past Medical History Past Medical History: Diabetes Mellitus, Syncope Additional Past Medical History / Comment(s): IDDM type I, DKA, neuropathy bilateral legs/feet, chronic low back pain, bilateral leg pain, migraines, hx chronic constipation. Hx HPV. Having diarrhea with any intake of food, chronic History of Any Multi-Drug Resistant Organisms: MRSA Date of last positivie culture/infection: 02/15/19 MDRO Source:: Head Past Surgical History: Tubal Ligation, Uterine Ablation Additional Past Surgical History / Comment(s): 12/22/17 colonoscopy-normal, LAPAROSCOPIC REMOVAL Rt TUBE AND OVARY d/t endometriosis, D&C, HYSTEROSCOPY, NOVASURE ABLATION 2016. 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 Past Psychological History: Anxiety, Depression Additional Psychological History / Comment(s): Pt resides with her 3 children. She is independent. She does not drive. She walks or takes the bus to [employer]. She is employed. Smoking Status: Never smoker Past Alcohol Use History: None Reported Past Drug Use History: None Reported - Past Family History Mother Family Medical History: Rheumatoid Arthritis (RA) Additional Family Medical History / Comment(s): Mother is 63 yrs old. Father Family Medical History: Cancer, Diabetes Mellitus, Deep Vein Thrombosis (DVT), Hypertension Additional Family Medical History / Comment(s): THROAT CA- of but pt does not know at what age. Medications and Allergies Home Medications Medication Instructions Recorded Confirmed Type Pregabalin [Lyrica] 75 mg PO BID 10/24/19 04/26/20 History ALPRAZolam [Xanax] 0.5 mg PO HS PRN 04/26/20 04/26/20 History Acetaminophen [Tylenol Arthritis] 1,300 mg PO Q8H PRN 04/26/20 04/26/20 History Diphenox-Atrop 2.5-0.025 mg 1 tab PO BID PRN 04/26/20 04/26/20 History [Lomotil] Escitalopram [Lexapro] 20 mg PO DAILY 04/26/20 04/26/20 History INSULIN LISPRO (humaLOG) [humaLOG] 5 units SQ AC-TID 04/26/20 04/26/20 History INSULIN LISPRO (humaLOG) [humaLOG] See Protocol SQ AC-TID PRN 04/26/20 04/26/20 History Ibuprofen [Motrin] 800 mg PO TID PRN 04/26/20 04/26/20 History traZODone HCL 150 mg PO HS 04/26/20 04/26/20 History Insulin Glargine,Hum.rec.anlog 15 unit SQ HS #0 04/27/20 04/26/20 Rx [Basaglar Kwikpen U-100] tiZANidine [Zanaflex] 4 mg PO BID PRN #0 04/27/20 04/26/20 Rx Allergies Allergy/AdvReac Type Severity Reaction Status Date / Time No Known Allergies Allergy Verified 04/26/20 16:01 Physical Exam Vitals: Vital Signs Temp Pulse Pulse Resp BP BP Pulse Ox 04/27/20 09:00 107 H 18 04/27/20 08:13 97.1 F L 107 H 18 111/71 98 04/27/20 04:30 99.3 F 97 17 127/85 98 04/26/20 19:55 98.5 F 116 H 17 115/77 98 04/26/20 18:29 123 H 16 120/88 96 04/26/20 17:30 122 H 18 117/68 98 04/26/20 16:00 124 H 16 145/89 100 04/26/20 15:30 122 H 16 148/94 100 04/26/20 15:00 125 H 16 139/97 100 04/26/20 14:39 99.1 F 139 H 18 130/82 98 Intake and Output 04/26/20 04/27/20 04/27/20 22:59 06:59 14:59 Other: Voiding Method Toilet Toilet Toilet PHYSICAL EXAMINATION: GENERAL: The patient is alert and oriented x3, not in any acute distress. Thin built HEENT: Pupils are round and equally reacting to light. EOMI. No scleral icterus. No conjunctival pallor. Normocephalic, atraumatic. No pharyngeal erythema. No thyromegaly. CARDIOVASCULAR: S1 and S2 present. No murmurs, rubs, or gallops. PULMONARY: Chest is clear to auscultation, no wheezing or crackles. ABDOMEN: Soft, nontender, nondistended, normoactive bowel sounds. No palpable organomegaly. MUSCULOSKELETAL: No joint swelling or deformity. EXTREMITIES: No cyanosis, clubbing, or pedal edema. NEUROLOGICAL: Gross neurological examination did not reveal any focal deficits. SKIN: No rashes. Results CBC & Chem 7: 04/26/20 15:07 04/26/20 15:07 Labs: Abnormal Lab Results - Last 24 Hours (Table) 04/26/20 04/26/20 04/26/20 Range/Units 14:48 15:07 15:07 MCHC 30.7 L (31.0-37.0) g/dL APTT 21.5 L (22.0-30.0) sec Sodium (137-145) mmol/L Chloride (98-107) mmol/L BUN (7-17) mg/dL Creatinine (0.52-1.04) mg/dL Glucose (74-99) mg/dL POC Glucose (mg/dL) >600 H (75-99) mg/dL Plasma Lactic Acid Silvino (0.7-2.0) mmol/L Alkaline Phosphatase (38-126) U/L Urine Glucose (UA) (Negative) 04/26/20 04/26/20 04/26/20 Range/Units 15:07 15:07 15:15 MCHC (31.0-37.0) g/dL APTT (22.0-30.0) sec Sodium 132 L (137-145) mmol/L Chloride 94 L (98-107) mmol/L BUN 3 L (7-17) mg/dL Creatinine 0.36 L (0.52-1.04) mg/dL Glucose 790 H* (74-99) mg/dL POC Glucose (mg/dL) (75-99) mg/dL Plasma Lactic Acid Silvino 4.3 H* (0.7-2.0) mmol/L Alkaline Phosphatase 193 H (38-126) U/L Urine Glucose (UA) 4+ H (Negative) 04/26/20 04/26/20 04/26/20 Range/Units 17:28 18:21 21:57 MCHC (31.0-37.0) g/dL APTT (22.0-30.0) sec Sodium (137-145) mmol/L Chloride (98-107) mmol/L BUN (7-17) mg/dL Creatinine (0.52-1.04) mg/dL Glucose (74-99) mg/dL POC Glucose (mg/dL) 431 H 329 H 286 H (75-99) mg/dL Plasma Lactic Acid Silvino (0.7-2.0) mmol/L Alkaline Phosphatase (38-126) U/L Urine Glucose (UA) (Negative) 04/27/20 04/27/20 Range/Units 07:47 11:23 MCHC (31.0-37.0) g/dL APTT (22.0-30.0) sec Sodium (137-145) mmol/L Chloride (98-107) mmol/L BUN (7-17) mg/dL Creatinine (0.52-1.04) mg/dL Glucose (74-99) mg/dL POC Glucose (mg/dL) 241 H 247 H (75-99) mg/dL Plasma Lactic Acid Silvino (0.7-2.0) mmol/L Alkaline Phosphatase (38-126) U/L Urine Glucose (UA) (Negative) Thrombosis Risk Factor Assmnt - Choose All That Apply Any of the Below Risk Factors Present?: No Other Risk Factors: No Other congenital or acquired thrombophilia - If yes, enter type in comment: No Thrombosis Risk Factor Assessment Level: Very Low Risk Assessment and Plan Plan: -Episodes of hyperglycemia: Unsure why patient had only a transient episode of hyperglycemia without any diabetic ketoacidosis. I do not believe we should change her insulin regimen aggressively I will increase the Lantus dose to 15 units with close monitoring of blood sugars at home and rest of the insulin regimen will be resumed as it is patient was asked to closely follow with endocrinology. -Lightheadedness: We'll obtain an outpatient echocardiogram I believe it's secondary to her medications patient is on multiple medications that can cause lightheadedness including Lyrica, Zanaflex, Xanax, trazodone, Lomotil. I changed many of these medications on as-needed basis upon discharge asked her to try and avoid if it's not necessary. -Chronic diarrhea patient will be referred to gastroenterology for further workup -Diabetic peripheral neuropathy Patient will be discharged today as patient doesn't have diabetic ketoacidosis and the sugars being in 200s I do not believe patient will need continuation of this hospitalization and will be discharged today.
--- NOTE | 2020-04-27 13:07 | P.DS ---
Providers Date of admission: 04/26/20 17:02 Attending physician: Jessica Pena Primary care physician: Ritesh Rekha Barlow Respiratory Hospital Course: As mentioned in HPI Patient Condition at Discharge: Fair Plan - Discharge Summary Discharge Rx Participant: No New Discharge Prescriptions: Continue Pregabalin [Lyrica] 75 mg PO BID Ibuprofen [Motrin] 800 mg PO TID PRN PRN Reason: Pain Or Fever > 100.5 INSULIN LISPRO (humaLOG) [humaLOG] 5 units SQ AC-TID INSULIN LISPRO (humaLOG) [humaLOG] See Protocol SQ AC-TID PRN PRN Reason: Blood Sugar - High Escitalopram [Lexapro] 20 mg PO DAILY Diphenox-Atrop 2.5-0.025 mg [Lomotil] 1 tab PO BID PRN PRN Reason: Loose Stool ALPRAZolam [Xanax] 0.5 mg PO HS PRN PRN Reason: Anxiety Acetaminophen [Tylenol Arthritis] 1,300 mg PO Q8H PRN PRN Reason: Pain Or Fever > 100.5 traZODone HCL 150 mg PO HS Insulin Glargine,Hum.rec.anlog [Basaglar Kwikpen U-100] 15 unit SQ HS #0 Changed tiZANidine [Zanaflex] 4 mg PO BID PRN #0 PRN Reason: Mild Spasms Discharge Medication List Pregabalin [Lyrica] 75 mg PO BID 10/24/19 [History] ALPRAZolam [Xanax] 0.5 mg PO HS PRN 04/26/20 [History] Acetaminophen [Tylenol Arthritis] 1,300 mg PO Q8H PRN 04/26/20 [History] Diphenox-Atrop 2.5-0.025 mg [Lomotil] 1 tab PO BID PRN 04/26/20 [History] Escitalopram [Lexapro] 20 mg PO DAILY 04/26/20 [History] INSULIN LISPRO (humaLOG) [humaLOG] 5 units SQ AC-TID 04/26/20 [History] INSULIN LISPRO (humaLOG) [humaLOG] See Protocol SQ AC-TID PRN 04/26/20 [History] Ibuprofen [Motrin] 800 mg PO TID PRN 04/26/20 [History] traZODone HCL 150 mg PO HS 04/26/20 [History] Insulin Glargine,Hum.rec.anlog [Karenaglbrigida Erickson U-100] 15 unit SQ HS #0 04/27/20 [Rx] tiZANidine [Zanaflex] 4 mg PO BID PRN #0 04/27/20 [Rx] Follow up Appointment(s)/Referral(s): Jairo Conroy MD [Primary Care Provider] - 3 Days (please call for follow up) Jim Walker MD [STAFF PHYSICIAN] - 1 Week (please call for follow up/ get referral from Dr. Conroy if needed.) Patient Instructions/Handouts: Diabetic Hyperglycemia (GEN) Discharge Disposition: HOME SELF-CARE Plan of Treatment: Your credit products officer as scheduled
[2020-04-27 13:33] VITALS: BMI 18.5
[2020-04-27] MEDS ORDERED: PREGABALIN 75 MG CAP PO SCH (21:00)
[2020-04-27] MEDS ORDERED: INSULIN DETEMIR (LEVEMIR) 100 UNIT/ML SYR SQ SCH (21:00)
[2020-04-27] MEDS ORDERED: tiZANidine 4 MG TAB PO SCH (21:00)
[2020-04-27] MEDS ORDERED: traZODone HCL 50 MG TAB PO SCH (21:00)
[2020-04-27 21:08] LABS: Hemoglobin A1C 16.1 % (4.0-6.0)
[2020-04-28] MEDS ORDERED: ESCITALOPRAM 20 MG TAB PO SCH (09:00)
== END 2020-04-27 13:43 | disposition home or self-care (01) ==
LOC: EC 14:37 → 1SOBS 17:02
PROVIDERS: ADMIT Internal Medicine; ATTEND Internal Medicine
DX: E87.2 Acidosis (principal); E86.0 Dehydration; E10.65 Type 1 diabetes mellitus with hyperglycemia; Z79.4 Long term (current) use of insulin; Z79.899 Other long term (current) drug therapy; E10.42 Type 1 diabetes mellitus with diabetic polyneuropathy; G89.29 Other chronic pain; M54.5 Low back pain; G43.909 Migraine, unspecified, not intractable, without status migrainosus; K59.09 Other constipation; Z86.14 Personal history of Methicillin resistant Staphylococcus aureus infection; Z98.51 Tubal ligation status; Z90.721 Acquired absence of ovaries, unilateral; Z98.890 Other specified postprocedural states; F41.9 Anxiety disorder, unspecified; F32.9 Major depressive disorder, single episode, unspecified; Z82.61 Family history of arthritis; Z80.0 Family history of malignant neoplasm of digestive organs; Z83.3 Family history of diabetes mellitus; Z82.49 Family history of ischemic heart disease and other diseases of the circulatory system
CPT/HCPCS: 96376 ×2; 96361; 96374; 99285; 36415; 93005; 80053; 82803; 83605; 83735; 84484; 85025; 85610; 85730; 81003; 81025; 83036; 71045; G0378 ×2; J2270 ×2

== ENCOUNTER → 2020-05-22 | Outpatient (CLI) | payer OTHER ==
[2020-05-22 13:48] LABS: Basophils # (A) 0.1 k/uL (0-0.2); Basophils % (A) 1 %; Eosinophils # (A) 0.1 k/uL (0-0.7); Eosinophils % (A) 2 %; HCT 40.1 % (34.0-46.0); HGB 12.7 gm/dL (11.4-16.0); Hypochromasia Slight; Lymphocytes # (A) 2.1 k/uL (1.0-4.8); Lymphocytes % (A) 23 %; MCH 29.2 pg (25.0-35.0); MCHC 31.8 g/dL (31.0-37.0); Mean Platelet Volume 7.6; Monocytes # (A) 0.4 k/uL (0-1.0); Monocytes % (A) 4 %; Neutrophils # (A) 6.6 k/uL (1.3-7.7); Neutrophils % (A) 70 %; Platelet Count 365 k/uL (150-450); RBC 4.36 m/uL (3.80-5.40); WBC 9.5 k/uL (3.8-10.6)
[2020-05-22 21:04] LABS: T4, Free (Free Thyroxine) 1.1 ng/dL (0.80-1.80)
[2020-05-22 21:16] LABS: African American GFR (CKD) 83.3 (60.0-200.0); Albumin 4.4 g/dL (3.80-4.90); Albumin/Globulin Ratio 1.42 (1.60-3.17); Anion Gap 12.5 mmol/L (4.00-12.00); Calcium 9.2 mg/dL (8.7-10.3); Carbon Dioxide 22.5 mmol/L (21.6-31.8); Globulin 3.1 g/dL (1.6-3.3); Non-African American GFR(CKD) 71.9 (60.0-200.0); Potassium 4.3 mmol/L (3.5-5.5); Total Bilirubin 0.7 mg/dL (0.2-1.2); Total Protein 7.5 g/dL (6.2-8.2)
[2020-05-23 05:00] LABS: Hemoglobin A1C 16.2 % (4.0-6.0)
== END | disposition home or self-care (01) ==
LOC: LABWHC1 13:17
PROVIDERS: ATTEND Internal Medicine
DX: E11.65 Type 2 diabetes mellitus with hyperglycemia (principal); R63.4 Abnormal weight loss; R55 Syncope and collapse
CPT/HCPCS: 36415; 80053; 82378; 83036; 84439; 84443; 84481; 85025

== ENCOUNTER 2020-05-23 00:44 | Emergency (ER) | payer OTHER ==
[2020-05-23 00:53] VITALS: TEMP 98.5
[2020-05-23 00:56] LABS: Glucose,Whole Blood >600 mg/dL (75-99)
[2020-05-23] MEDS ORDERED: SODIUM CHLORIDE 0.9% 2,000 ML IV ONE (00:57)
[2020-05-23] MEDS ORDERED: INSULIN REGULAR 100 UNIT/ML VIAL (IV) IV STA (00:57)
[2020-05-23 01:29] LABS: Basophils # (A) 0.1 k/uL (0-0.2); Basophils % (A) 1 %; Eosinophils # (A) 0.2 k/uL (0-0.7); Eosinophils % (A) 2 %; HCT 40.2 % (34.0-46.0); HGB 12.8 gm/dL (11.4-16.0); Lymphocytes # (A) 1.9 k/uL (1.0-4.8); Lymphocytes % (A) 26 %; MCH 28.6 pg (25.0-35.0); MCHC 31.9 g/dL (31.0-37.0); MCV 89.6 fL (80.0-100.0); Mean Platelet Volume 7.8; Monocytes # (A) 0.3 k/uL (0-1.0); Monocytes % (A) 4 %; Neutrophils # (A) 4.8 k/uL (1.3-7.7); Neutrophils % (A) 65 %; Platelet Count 329 k/uL (150-450); RBC 4.49 m/uL (3.80-5.40); WBC 7.3 k/uL (3.8-10.6)
[2020-05-23 01:30] LABS: Appearance,Urine Clear (Clear); Bilirubin,Urine Negative (Negative); Blood,Urine Negative (Negative); Color,Urine Colorless; Glucose,Urine (UA) 4+ (Negative); Ketones,Urine Negative (Negative); Leukocyte Esterase,Urine Negative (Negative); Nitrite,Urine Negative (Negative); Protein,Urine Negative (Negative); Specific Gravity,Urine 1.032 (1.001-1.035); Urobilinogen,Urine <2.0 mg/dL (<2.0)
--- NOTE | 2020-05-23 01:33 | ED ---
General Adult HPI - General Chief complaint: Recheck/Abnormal Lab/Rx Stated complaint: High Blood Sugar Time Seen by Provider: 05/23/20 00:56 Source: patient, family Mode of arrival: ambulatory Limitations: no limitations - History of Present Illness Initial comments: This patient is a 35-year-old woman who presents here after she had received a call from her primary physician advising her that her blood sugar was over 800. The patient does have history of insulin-dependent diabetes. She states she had gone to see her physician Dr. Conroy, as she is having investigations for progressive weight loss. The patient states that she checks her blood sugar 3 times a day and that it is been high for she states quite some time. She states it is been difficult to control going back up to 5 years. Patient denies any new symptoms. On review of systems, she is acknowledging bilateral lower extremity burning pain, that she states was diagnosed as neuropathy and that has been going on for quite some time as well. Patient denies signs or symptoms of infection. No fever or chills. No sinus congestion or pain, cough, drainage. No sore throat. No chest pain or dyspnea. No abdominal pain, vomiting. No change in urination. -: unknown Radiation: extremity Quality: burning Consistency: constant Improves with: none Worsens with: none Associated Symptoms: denies other symptoms Treatments Prior to Arrival: none - Related Data Home Medications Medication Instructions Recorded Confirmed Pregabalin [Lyrica] 75 mg PO BID 10/24/19 04/26/20 ALPRAZolam [Xanax] 0.5 mg PO HS PRN 04/26/20 04/26/20 Acetaminophen [Tylenol Arthritis] 1,300 mg PO Q8H PRN 04/26/20 04/26/20 Diphenox-Atrop 2.5-0.025 mg 1 tab PO BID PRN 04/26/20 04/26/20 [Lomotil] Escitalopram [Lexapro] 20 mg PO DAILY 04/26/20 04/26/20 INSULIN LISPRO (humaLOG) [humaLOG] 5 units SQ AC-TID 04/26/20 04/26/20 INSULIN LISPRO (humaLOG) [humaLOG] See Protocol SQ AC-TID PRN 04/26/20 04/26/20 Ibuprofen [Motrin] 800 mg PO TID PRN 04/26/20 04/26/20 traZODone HCL 150 mg PO HS 04/26/20 04/26/20 Previous Rx's Medication Instructions Recorded Insulin Glargine,Hum.rec.anlog 15 unit SQ HS #0 04/27/20 [Basaglar Kwikpen U-100] tiZANidine [Zanaflex] 4 mg PO BID PRN #0 04/27/20 Allergies Allergy/AdvReac Type Severity Reaction Status Date / Time No Known Allergies Allergy Verified 05/23/20 00:53 Review of Systems ROS Statement: Those systems with pertinent positive or pertinent negative responses have been documented in the HPI. ROS Other: All systems not noted in ROS Statement are negative. Constitutional: Denies: fever, chills, weakness Eyes: Denies: vision change ENT: Denies: throat pain, congestion Respiratory: Denies: cough, dyspnea Cardiovascular: Denies: chest pain, palpitations, edema Endocrine: Reports: fatigue, polydipsia Gastrointestinal: Denies: abdominal pain, nausea, vomiting Genitourinary: Denies: urgency, dysuria, hematuria Skin: Denies: rash Neurological: Denies: headache, weakness, numbness Past Medical History Past Medical History: Diabetes Mellitus, Syncope Additional Past Medical History / Comment(s): IDDM type I, DKA, neuropathy bilateral legs/feet, chronic low back pain, bilateral leg pain, migraines, hx chronic constipation. Hx HPV. Having diarrhea with any intake of food, chronic History of Any Multi-Drug Resistant Organisms: MRSA Date of last positivie culture/infection: 02/15/19 MDRO Source:: Head Past Surgical History: Tubal Ligation, Uterine Ablation Additional Past Surgical History / Comment(s): 12/22/17 colonoscopy-normal, LAPAROSCOPIC REMOVAL Rt TUBE AND OVARY d/t endometriosis, D&C, HYSTEROSCOPY, NOVASURE ABLATION 2016. 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 Past Psychological History: Anxiety, Depression Smoking Status: Never smoker Past Alcohol Use History: None Reported Past Drug Use History: None Reported - Past Family History Mother Family Medical History: Rheumatoid Arthritis (RA) Additional Family Medical History / Comment(s): Mother is 63 yrs old. Father Family Medical History: Cancer, Diabetes Mellitus, Deep Vein Thrombosis (DVT), Hypertension Additional Family Medical History / Comment(s): THROAT CA- of but pt does not know at what age. General Exam Limitations: no limitations General appearance: alert, in no apparent distress Head exam: Present: atraumatic, normocephalic Eye exam: Present: normal appearance. Absent: scleral icterus, conjunctival injection ENT exam: Present: mucous membranes dry Neck exam: Present: normal inspection, full ROM. Absent: meningismus Respiratory exam: Present: normal lung sounds bilaterally. Absent: respiratory distress, wheezes, rales, rhonchi, stridor Cardiovascular Exam: Present: normal rhythm, tachycardia, normal heart sounds. Absent: systolic murmur, diastolic murmur, rubs, gallop GI/Abdominal exam: Present: soft. Absent: distended, tenderness, guarding, rebound, rigid, mass, pulsatile mass, hernia Extremities exam: Present: normal inspection, normal capillary refill. Absent: pedal edema, calf tenderness Back exam: Present: normal inspection. Absent: CVA tenderness (R), CVA tenderness (L) Neurological exam: Present: alert Skin exam: Present: warm, dry, intact, normal color. Absent: rash Course Vital Signs 05/23/20 05/23/20 05/23/20 00:47 02:00 03:00 Temperature 98.5 F Pulse Rate 130 H 107 H 105 H Respiratory 20 16 16 Rate Blood Pressure 149/97 137/89 135/84 O2 Sat by Pulse 98 98 99 Oximetry 05/23/20 05/23/20 04:00 05:00 Temperature Pulse Rate 102 H 99 Respiratory 16 16 Rate Blood Pressure 136/85 136/84 O2 Sat by Pulse 98 98 Oximetry Medical Decision Making - Medical Decision Making Patient is 35-year-old woman with history of diabetes presenting with poorly controlled condition. Following insulin and fluids here her glucose has markedly improved. The patient is wanting to be discharged with follow-up. She states that she does intend to check her blood sugar 3 times a day and will return if the level is increasing. Discussed appropriate further care and follow-up. - Lab Data Result diagrams: 05/23/20 01:18 05/23/20 01:47 Lab Results 05/23/20 05/23/20 05/23/20 Range/Units 00:54 01:18 01:18 WBC 7.3 (3.8-10.6) k/uL RBC 4.49 (3.80-5.40) m/uL Hgb 12.8 (11.4-16.0) gm/dL Hct 40.2 (34.0-46.0) % MCV 89.6 (80.0-100.0) fL MCH 28.6 (25.0-35.0) pg MCHC 31.9 (31.0-37.0) g/dL RDW 13.0 (11.5-15.5) % Plt Count 329 (150-450) k/uL MPV 7.8 Neutrophils % 65 % Lymphocytes % 26 % Monocytes % 4 % Eosinophils % 2 % Basophils % 1 % Neutrophils # 4.8 (1.3-7.7) k/uL Lymphocytes # 1.9 (1.0-4.8) k/uL Monocytes # 0.3 (0-1.0) k/uL Eosinophils # 0.2 (0-0.7) k/uL Basophils # 0.1 (0-0.2) k/uL Sodium (137-145) mmol/L Potassium (3.5-5.1) mmol/L Chloride (98-107) mmol/L Carbon Dioxide (22-30) mmol/L Anion Gap mmol/L BUN (7-17) mg/dL Creatinine (0.52-1.04) mg/dL Est GFR (CKD-EPI)AfAm (>60 ml/min/1.73 sqM) Est GFR (CKD-EPI)NonAf (>60 ml/min/1.73 sqM) Glucose (74-99) mg/dL POC Glucose (mg/dL) >600 H (75-99) mg/dL POC Glu Individual Pension Adviser ID Hermelindo Palencia Calcium (8.4-10.2) mg/dL Total Bilirubin (0.2-1.3) mg/dL AST (14-36) U/L ALT (4-34) U/L Alkaline Phosphatase (38-126) U/L Troponin I (0.000-0.034) ng/mL Total Protein (6.3-8.2) g/dL Albumin (3.5-5.0) g/dL Urine Color Colorless Urine Appearance Clear (Clear) Urine pH 6.0 (5.0-8.0) Ur Specific Crosby 1.032 (1.001-1.035) Urine Protein Negative (Negative) Urine Glucose (UA) 4+ H (Negative) Urine Ketones Negative (Negative) Urine Blood Negative (Negative) Urine Nitrite Negative (Negative) Urine Bilirubin Negative (Negative) Urine Urobilinogen <2.0 (<2.0) mg/dL Ur Leukocyte Esterase Negative (Negative) Urine HCG, Qual (Not Detectd) Acetone, Qual (Negative) 05/23/20 05/23/20 05/23/20 Range/Units 01:18 01:47 01:47 WBC (3.8-10.6) k/uL RBC (3.80-5.40) m/uL Hgb (11.4-16.0) gm/dL Hct (34.0-46.0) % MCV (80.0-100.0) fL MCH (25.0-35.0) pg MCHC (31.0-37.0) g/dL RDW (11.5-15.5) % Plt Count (150-450) k/uL MPV Neutrophils % % Lymphocytes % % Monocytes % % Eosinophils % % Basophils % % Neutrophils # (1.3-7.7) k/uL Lymphocytes # (1.0-4.8) k/uL Monocytes # (0-1.0) k/uL Eosinophils # (0-0.7) k/uL Basophils # (0-0.2) k/uL Sodium 126 L (137-145) mmol/L Potassium 3.7 (3.5-5.1) mmol/L Chloride 94 L (98-107) mmol/L Carbon Dioxide 26 (22-30) mmol/L Anion Gap 6 mmol/L BUN 8 (7-17) mg/dL Creatinine 0.30 L (0.52-1.04) mg/dL Est GFR (CKD-EPI)AfAm >90 (>60 ml/min/1.73 sqM) Est GFR (CKD-EPI)NonAf >90 (>60 ml/min/1.73 sqM) Glucose (74-99) mg/dL POC Glucose (mg/dL) (75-99) mg/dL POC Glu Individual Pension Adviser ID Calcium 8.5 (8.4-10.2) mg/dL Total Bilirubin 0.9 (0.2-1.3) mg/dL AST 19 (14-36) U/L ALT 13 (4-34) U/L Alkaline Phosphatase 128 H (38-126) U/L Troponin I <0.012 (0.000-0.034) ng/mL Total Protein 6.8 (6.3-8.2) g/dL Albumin 3.5 (3.5-5.0) g/dL Urine Color Urine Appearance (Clear) Urine pH (5.0-8.0) Ur Specific Crosby (1.001-1.035) Urine Protein (Negative) Urine Glucose (UA) (Negative) Urine Ketones (Negative) Urine Blood (Negative) Urine Nitrite (Negative) Urine Bilirubin (Negative) Urine Urobilinogen (<2.0) mg/dL Ur Leukocyte Esterase (Negative) Urine HCG, Qual Not Detected (Not Detectd) Acetone, Qual Negative (Negative) 05/23/20 05/23/20 05/23/20 Range/Units 03:04 04:05 05:15 WBC (3.8-10.6) k/uL RBC (3.80-5.40) m/uL Hgb (11.4-16.0) gm/dL Hct (34.0-46.0) % MCV (80.0-100.0) fL MCH (25.0-35.0) pg MCHC (31.0-37.0) g/dL RDW (11.5-15.5) % Plt Count (150-450) k/uL MPV Neutrophils % % Lymphocytes % % Monocytes % % Eosinophils % % Basophils % % Neutrophils # (1.3-7.7) k/uL Lymphocytes # (1.0-4.8) k/uL Monocytes # (0-1.0) k/uL Eosinophils # (0-0.7) k/uL Basophils # (0-0.2) k/uL Sodium (137-145) mmol/L Potassium (3.5-5.1) mmol/L Chloride (98-107) mmol/L Carbon Dioxide (22-30) mmol/L Anion Gap mmol/L BUN (7-17) mg/dL Creatinine (0.52-1.04) mg/dL Est GFR (CKD-EPI)AfAm (>60 ml/min/1.73 sqM) Est GFR (CKD-EPI)NonAf (>60 ml/min/1.73 sqM) Glucose (74-99) mg/dL POC Glucose (mg/dL) 465 H 396 H 337 H (75-99) mg/dL POC Glu Individual Pension Adviser ID Fetterly, Flower Fetterly, Flower Fetterly, Flower Calcium (8.4-10.2) mg/dL Total Bilirubin (0.2-1.3) mg/dL AST (14-36) U/L ALT (4-34) U/L Alkaline Phosphatase (38-126) U/L Troponin I (0.000-0.034) ng/mL Total Protein (6.3-8.2) g/dL Albumin (3.5-5.0) g/dL Urine Color Urine Appearance (Clear) Urine pH (5.0-8.0) Ur Specific Crosby (1.001-1.035) Urine Protein (Negative) Urine Glucose (UA) (Negative) Urine Ketones (Negative) Urine Blood (Negative) Urine Nitrite (Negative) Urine Bilirubin (Negative) Urine Urobilinogen (<2.0) mg/dL Ur Leukocyte Esterase (Negative) Urine HCG, Qual (Not Detectd) Acetone, Qual (Negative) Disposition Clinical Impression: Hyperglycemia due to diabetes mellitus Disposition: HOME SELF-CARE Condition: Good Instructions (If sedation given, give patient instructions): Diabetic Hyperglycemia (ED) Is patient prescribed a controlled substance at d/c from ED?: No Referrals: Jairo Conroy MD [Primary Care Provider] - 1-2 days
[2020-05-23 02:08] VITALS: RESP 16
[2020-05-23 02:09] LABS: ALT 13 U/L (4-34); AST 19 U/L (14-36); African American GFR (CKD) >90 (>60 ml/min/1.73 sqM); Albumin 3.5 g/dL (3.5-5.0); Alkaline Phosphatase 128 U/L (38-126); Anion Gap 6 mmol/L; Blood Urea Nitrogen 8 mg/dL (7-17); Calcium 8.5 mg/dL (8.4-10.2); Carbon Dioxide 26 mmol/L (22-30); Chloride 94 mmol/L (98-107); Non-African American GFR(CKD) >90 (>60 ml/min/1.73 sqM); Potassium 3.7 mmol/L (3.5-5.1); Sodium 126 mmol/L (137-145); Total Bilirubin 0.9 mg/dL (0.2-1.3); Total Protein 6.8 g/dL (6.3-8.2)
[2020-05-23 03:07] LABS: Glucose,Whole Blood 465 mg/dL (75-99)
[2020-05-23 04:07] LABS: Glucose,Whole Blood 396 mg/dL (75-99)
[2020-05-23] MEDS ORDERED: SODIUM CHLORIDE 0.9% 1,000 ML IV ONE (04:07)
[2020-05-23] MEDS ORDERED: ACETAMINOPHEN TAB 325 MG TAB PO STA (04:07)
[2020-05-23 05:17] LABS: Glucose,Whole Blood 337 mg/dL (75-99)
[2020-05-23 05:19] VITALS: BP 136/84; PULSE 99
== END 2020-05-23 05:30 | disposition home or self-care (01) ==
LOC: EC 00:44
DX: E10.65 Type 1 diabetes mellitus with hyperglycemia (principal); E10.42 Type 1 diabetes mellitus with diabetic polyneuropathy; F41.9 Anxiety disorder, unspecified; F32.9 Major depressive disorder, single episode, unspecified; G89.29 Other chronic pain; M54.5 Low back pain; G43.909 Migraine, unspecified, not intractable, without status migrainosus; Z79.899 Other long term (current) drug therapy; Z79.4 Long term (current) use of insulin; Z86.14 Personal history of Methicillin resistant Staphylococcus aureus infection
CPT/HCPCS: 36415; 80053; 81003; 81025; 82009; 84484; 85025; 96360; 96361; 99284

== ENCOUNTER 2020-08-21 17:34 | Emergency (ER) | payer OTHER ==
[2020-08-21 17:39] VITALS: TEMP 97.6
[2020-08-21] MEDS ORDERED: diphenhydrAMINE 50 MG/ML 1 ML VIAL IVP STA (18:23)
[2020-08-21] MEDS ORDERED: SODIUM CHLORIDE 0.9% 1,000 ML IV STA (18:23)
[2020-08-21] MEDS ORDERED: MORPHINE SULFATE 4 MG/ML SYRINGE IVP STA (18:23)
[2020-08-21] MEDS ORDERED: METOCLOPRAMIDE 5 MG/ML 2 ML VIAL IVP STA (18:23)
[2020-08-21 18:54] VITALS: BP 111/81; RESP 18
[2020-08-21 19:12] LABS: Basophils % (A) 1 %; Eosinophils # (A) 0.1 k/uL (0-0.7); Eosinophils % (A) 1 %; HCT 36.5 % (34.0-46.0); HGB 12.5 gm/dL (11.4-16.0); Lymphocytes # (A) 2.2 k/uL (1.0-4.8); Lymphocytes % (A) 26 %; MCH 29.3 pg (25.0-35.0); MCHC 34.1 g/dL (31.0-37.0); MCV 86.1 fL (80.0-100.0); Mean Platelet Volume 7.9; Monocytes # (A) 0.4 k/uL (0-1.0); Monocytes % (A) 4 %; Neutrophils # (A) 5.8 k/uL (1.3-7.7); Neutrophils % (A) 67 %; Platelet Count 316 k/uL (150-450); RBC 4.24 m/uL (3.80-5.40); RDW 12.6 % (11.5-15.5); WBC 8.6 k/uL (3.8-10.6)
[2020-08-21 19:23] LABS: ALT 11 U/L (4-34); AST 16 U/L (14-36); African American GFR (CKD) >90 (>60 ml/min/1.73 sqM); Albumin 3.8 g/dL (3.5-5.0); Alkaline Phosphatase 135 U/L (38-126); Anion Gap 11 mmol/L; Blood Urea Nitrogen 5 mg/dL (7-17); Calcium 9.2 mg/dL (8.4-10.2); Carbon Dioxide 26 mmol/L (22-30); Chloride 97 mmol/L (98-107); Glucose 413 mg/dL (74-99); Non-African American GFR(CKD) >90 (>60 ml/min/1.73 sqM); Potassium 3.6 mmol/L (3.5-5.1); Sodium 134 mmol/L (137-145); Total Bilirubin 0.4 mg/dL (0.2-1.3); Total Protein 7.1 g/dL (6.3-8.2)
[2020-08-21 20:01] LABS: Glucose,Whole Blood 268 mg/dL (75-99)
--- NOTE | 2020-08-21 20:02 | ED ---
General Adult HPI - General Chief complaint: Headache Stated complaint: headache Time Seen by Provider: 08/21/20 18:13 Source: patient Mode of arrival: ambulatory Limitations: no limitations - History of Present Illness Initial comments: 35-year-old female with a past medical history of IDDM type I, neuropathy, chronic pain, migraines presents to the emergency room for a chief complaint of headache. Patient reports she has had a headache for 2 days. States it is all around her head. Patient states the headache came on gradually. Denies worst symptoms at onset. Patient states she has had these exact headache several times before. Patient denies any weakness of the extremities. Patient does have a chronic wound to the scalp which her wound care doctor prescribes a barrier ointment for. Does not take antibiotics for this.Patient has no other complaints at this time including shortness of breath, chest pain, abdominal pain, nausea or vomiting,or visual changes. - Related Data Home Medications Medication Instructions Recorded Confirmed Pregabalin [Lyrica] 75 mg PO BID 10/24/19 04/26/20 ALPRAZolam [Xanax] 0.5 mg PO HS PRN 04/26/20 04/26/20 Acetaminophen [Tylenol Arthritis] 1,300 mg PO Q8H PRN 04/26/20 04/26/20 Diphenox-Atrop 2.5-0.025 mg 1 tab PO BID PRN 04/26/20 04/26/20 [Lomotil] Escitalopram [Lexapro] 20 mg PO DAILY 04/26/20 04/26/20 INSULIN LISPRO (humaLOG) [humaLOG] 5 units SQ AC-TID 04/26/20 04/26/20 INSULIN LISPRO (humaLOG) [humaLOG] See Protocol SQ AC-TID PRN 04/26/20 04/26/20 Ibuprofen [Motrin] 800 mg PO TID PRN 04/26/20 04/26/20 traZODone HCL 150 mg PO HS 04/26/20 04/26/20 Previous Rx's Medication Instructions Recorded Insulin Glargine,Hum.rec.anlog 15 unit SQ HS #0 04/27/20 [Basaglar Kwikpen U-100] tiZANidine [Zanaflex] 4 mg PO BID PRN #0 04/27/20 Allergies Allergy/AdvReac Type Severity Reaction Status Date / Time No Known Allergies Allergy Verified 08/21/20 17:39 Review of Systems ROS Statement: Those systems with pertinent positive or pertinent negative responses have been documented in the HPI. ROS Other: All systems not noted in ROS Statement are negative. Past Medical History Past Medical History: Diabetes Mellitus, Syncope Additional Past Medical History / Comment(s): IDDM type I, DKA, neuropathy bilateral legs/feet, chronic low back pain, bilateral leg pain, migraines, hx chronic constipation. Hx HPV. Having diarrhea with any intake of food, chronic History of Any Multi-Drug Resistant Organisms: MRSA Date of last positivie culture/infection: 02/15/19 MDRO Source:: Head Past Surgical History: Tubal Ligation, Uterine Ablation Additional Past Surgical History / Comment(s): 12/22/17 colonoscopy-normal, LAPAROSCOPIC REMOVAL Rt TUBE AND OVARY d/t endometriosis, D&C, HYSTEROSCOPY, NOVASURE ABLATION 2015. 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 Past Psychological History: Anxiety, Depression Smoking Status: Never smoker Past Alcohol Use History: None Reported Past Drug Use History: None Reported - Past Family History Mother Family Medical History: Rheumatoid Arthritis (RA) Additional Family Medical History / Comment(s): Mother is 63 yrs old. Father Family Medical History: Cancer, Diabetes Mellitus, Deep Vein Thrombosis (DVT), Hypertension Additional Family Medical History / Comment(s): THROAT CA- of but pt does not know at what age. General Exam Limitations: no limitations General appearance: alert, in no apparent distress Head exam: Present: atraumatic, normocephalic. Absent: normal inspection (Patient does have a chronic wound noted to the top of the scalp. No cellulitic changes or abscesses.) Eye exam: Present: normal appearance, PERRL, EOMI ENT exam: Present: normal exam, mucous membranes moist Neck exam: Present: normal inspection, full ROM. Absent: tenderness, menin gismus, lymphadenopathy Respiratory exam: Present: normal lung sounds bilaterally. Absent: respiratory distress, wheezes, rales, rhonchi, stridor Cardiovascular Exam: Present: regular rate, normal rhythm, normal heart sounds GI/Abdominal exam: Present: soft, normal bowel sounds. Absent: distended, tenderness, guarding, rebound, rigid Neurological exam: Present: alert, oriented X3, normal gait Course Vital Signs 08/21/20 08/21/20 17:35 18:48 Temperature 97.6 F Pulse Rate 114 H 111 H Respiratory 20 18 Rate Blood Pressure 111/76 111/81 O2 Sat by Pulse 99 98 Oximetry Medical Decision Making - Medical Decision Making Vitals are stable. CBC unremarkable. CMP does real hyperglycemia of 413 which did improve to 260 after a liter of fluids. Patient denies any chance of p regnancy. Patient was given migraine cocktail and did have significant improvement in symptoms. she'll be discharged to follow-up with primary care. Will return here for any worsening symptoms. - Lab Data Result diagrams: 08/21/20 18:35 08/21/20 18:35 Lab Results 08/21/20 08/21/20 08/21/20 Range/Units 18:35 18:35 20:00 WBC 8.6 (3.8-10.6) k/uL RBC 4.24 (3.80-5.40) m/uL Hgb 12.5 (11.4-16.0) gm/dL Hct 36.5 (34.0-46.0) % MCV 86.1 (80.0-100.0) fL MCH 29.3 (25.0-35.0) pg MCHC 34.1 (31.0-37.0) g/dL RDW 12.6 (11.5-15.5) % Plt Count 316 (150-450) k/uL MPV 7.9 Neutrophils % 67 % Lymphocytes % 26 % Monocytes % 4 % Eosinophils % 1 % Basophils % 1 % Neutrophils # 5.8 (1.3-7.7) k/uL Lymphocytes # 2.2 (1.0-4.8) k/uL Monocytes # 0.4 (0-1.0) k/uL Eosinophils # 0.1 (0-0.7) k/uL Basophils # 0.0 (0-0.2) k/uL Sodium 134 L (137-145) mmol/L Potassium 3.6 (3.5-5.1) mmol/L Chloride 97 L (98-107) mmol/L Carbon Dioxide 26 (22-30) mmol/L Anion Gap 11 mmol/L BUN 5 L (7-17) mg/dL Creatinine 0.35 L (0.52-1.04) mg/dL Est GFR (CKD-EPI)AfAm >90 (>60 ml/min/1.73 sqM) Est GFR (CKD-EPI)NonAf >90 (>60 ml/min/1.73 sqM) Glucose 413 H (74-99) mg/dL POC Glucose (mg/dL) 268 H (75-99) mg/dL POC Glu Neck[employer] ID Crystal Lewis Calcium 9.2 (8.4-10.2) mg/dL Total Bilirubin 0.4 (0.2-1.3) mg/dL AST 16 (14-36) U/L ALT 11 (4-34) U/L Alkaline Phosphatase 135 H (38-126) U/L Total Protein 7.1 (6.3-8.2) g/dL Albumin 3.8 (3.5-5.0) g/dL Disposition Clinical Impression: Headache, Hyperglycemia Disposition: HOME SELF-CARE Condition: Good Instructions (If sedation given, give patient instructions): Acute Headache (ED) Additional Instructions: Please follow up with primary care in 1-2 days. Return to the emergency room for any worsening symptoms. Is patient prescribed a controlled substance at d/c from ED?: No Referrals: Jairo Conroy MD [Primary Care Provider] - 1-2 days Time of Disposition: 20:20
[2020-08-21 20:26] VITALS: PULSE 79
== END 2020-08-21 20:26 | disposition home or self-care (01) ==
LOC: EC 17:34
DX: E10.65 Type 1 diabetes mellitus with hyperglycemia (principal); R51.9 Headache, unspecified; E10.10 Type 1 diabetes mellitus with ketoacidosis without coma; E10.40 Type 1 diabetes mellitus with diabetic neuropathy, unspecified; F41.9 Anxiety disorder, unspecified; F32.9 Major depressive disorder, single episode, unspecified
CPT/HCPCS: 36415; 80053; 85025; 99284; 96374; 96375; 96361; J2270; J1200; J2765

== ENCOUNTER 2020-08-29 20:25 | Emergency (ER) | payer OTHER ==
[2020-08-29] MEDS ORDERED: PROCHLORPERAZINE INJ 10 MG/2 ML VIAL IVP STA (22:24)
[2020-08-29] MEDS ORDERED: DEXAMETHASONE SOD PHOSPHATE 10 MG/ML 1 ML VIAL IV STA (22:24)
[2020-08-29] MEDS ORDERED: SODIUM CHLORIDE 0.9% 500 ML 500 ML IV STA (22:24)
[2020-08-29] MEDS ORDERED: diphenhydrAMINE 50 MG/ML 1 ML VIAL IVP STA (22:24)
[2020-08-29] MEDS ORDERED: AMOXIC-POT CLAV 875-125MG 1 EACH TAB PO STA (22:24)
[2020-08-29] MEDS ORDERED: KETOROLAC 15 MG/ML 1 ML VIAL IVP STA (22:24)
[2020-08-29] MEDS ORDERED: AMOXIC-POT CLAV 875MG STARTER PACK 2 TAB BTL PO STA (22:24)
[2020-08-29] MEDS ORDERED: MORPHINE SULFATE 4 MG/ML SYRINGE IVP STA (22:24)
--- NOTE | 2020-08-29 22:26 | ED ---
Headache HPI - General Chief Complaint: Headache Stated Complaint: headache,Nausea, Time Seen by Provider: 08/29/20 22:03 Source: RN notes reviewed, old records reviewed Mode of arrival: ambulatory Limitations: no limitations - History of Present Illness MD Complaint: headache -: hour(s) Onset Description: gradual Location: right, left, frontal Severity: mild, moderate Quality: aching, throbbing, full Consistency: constant Improves With: nothing Worsens With: none Associated Symptoms: nausea Other Symptoms: other (none) Treatments Prior to Arrival: other (nonre) - Related Data Home Medications Medication Instructions Recorded Confirmed Pregabalin [Lyrica] 75 mg PO BID 10/24/19 04/26/20 ALPRAZolam [Xanax] 0.5 mg PO HS PRN 04/26/20 04/26/20 Acetaminophen [Tylenol Arthritis] 1,300 mg PO Q8H PRN 04/26/20 04/26/20 Diphenox-Atrop 2.5-0.025 mg 1 tab PO BID PRN 04/26/20 04/26/20 [Lomotil] Escitalopram [Lexapro] 20 mg PO DAILY 04/26/20 04/26/20 INSULIN LISPRO (humaLOG) [humaLOG] 5 units SQ AC-TID 04/26/20 04/26/20 INSULIN LISPRO (humaLOG) [humaLOG] See Protocol SQ AC-TID PRN 04/26/20 04/26/20 Ibuprofen [Motrin] 800 mg PO TID PRN 04/26/20 04/26/20 traZODone HCL 150 mg PO HS 04/26/20 04/26/20 Previous Rx's Medication Instructions Recorded Insulin Glargine,Hum.rec.anlog 15 unit SQ HS #0 04/27/20 [Basaglar Kwikpen U-100] tiZANidine [Zanaflex] 4 mg PO BID PRN #0 04/27/20 Amoxic-Pot Clav 875-125Mg 1 tab PO Q12HR #20 tablet 08/29/20 [Augmentin 875-125] Allergies Allergy/AdvReac Type Severity Reaction Status Date / Time No Known Allergies Allergy Verified 08/29/20 20:30 Review of Systems ROS Statement: Those systems with pertinent positive or pertinent negative responses have been documented in the HPI. ROS Other: All systems not noted in ROS Statement are negative. Past Medical History Past Medical History: Diabetes Mellitus, Syncope Additional Past Medical History / Comment(s): IDDM type I, DKA, neuropathy bilateral legs/feet, chronic low back pain, bilateral leg pain, migraines, hx chronic constipation. Hx HPV. Having diarrhea with any intake of food, chronic History of Any Multi-Drug Resistant Organisms: MRSA Date of last positivie culture/infection: 02/15/19 MDRO Source:: Head Past Surgical History: Tubal Ligation, Uterine Ablation Additional Past Surgical History / Comment(s): 12/22/17 colonoscopy-normal, LAPAROSCOPIC REMOVAL Rt TUBE AND OVARY d/t endometriosis, D&C, HYSTEROSCOPY, NOVASURE ABLATION 2016. 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 Past Psychological History: Anxiety, Depression Smoking Status: Never smoker Past Alcohol Use History: None Reported Past Drug Use History: None Reported - Past Family History Mother Family Medical History: Rheumatoid Arthritis (RA) Additional Family Medical History / Comment(s): Mother is 63 yrs old. Father Family Medical History: Cancer, Diabetes Mellitus, Deep Vein Thrombosis (DVT), Hypertension Additional Family Medical History / Comment(s): THROAT CA- of but pt does not know at what age. General Exam Limitations: no limitations General appearance: alert, in no apparent distress Head exam: Present: atraumatic, normocephalic, normal inspection Eye exam: Present: normal appearance, PERRL, EOMI. Absent: scleral icterus, conjunctival injection, periorbital swelling ENT exam: Present: normal exam, mucous membranes moist Neck exam: Present: normal inspection. Absent: tenderness, meningismus, lymphadenopathy Respiratory exam: Present: normal lung sounds bilaterally. Absent: respiratory distress, wheezes, rales, rhonchi, stridor Cardiovascular Exam: Present: regular rate, normal rhythm, normal heart sounds. Absent: systolic murmur, diastolic murmur, rubs, gallop, clicks GI/Abdominal exam: Present: soft, normal bowel sounds. Absent: distended, tenderness, guarding, rebound, rigid Extremities exam: Present: normal inspection, full ROM, normal capillary refill. Absent: tenderness, pedal edema, joint swelling, calf tenderness Back exam: Present: normal inspection Neurological exam: Present: alert, oriented X3, CN II-XII intact Psychiatric exam: Present: normal affect, normal mood Skin exam: Present: warm, dry, intact, normal color. Absent: rash Course Vital Signs 08/29/20 08/29/20 20:26 23:15 Temperature 98.2 F 97.8 F Pulse Rate 102 H 84 Respiratory 18 20 Rate Blood Pressure 133/86 126/82 O2 Sat by Pulse 99 97 Oximetry - Reevaluation(s) Reevaluation #1: Medical record is reviewed Patient symptoms are significantly improved here in the emergency department Patient family informed of results, questions answered Disposition Clinical Impression: Dental caries, Migraine headache, Headache Disposition: HOME SELF-CARE Condition: Good Instructions (If sedation given, give patient instructions): Acute Headache (ED) Prescriptions: Amoxic-Pot Clav 875-125Mg [Augmentin 875-125] 1 tab PO Q12HR #20 tablet Is patient prescribed a controlled substance at d/c from ED?: No Referrals: Jairo Conroy MD [Primary Care Provider] - 1-2 days
[2020-08-29 23:17] VITALS: BP 126/82; PULSE 84; RESP 20; TEMP 97.8
== END 2020-08-29 23:17 | disposition home or self-care (01) ==
LOC: EC 20:25
DX: G43.909 Migraine, unspecified, not intractable, without status migrainosus (principal); K02.9 Dental caries, unspecified; F41.9 Anxiety disorder, unspecified; F32.9 Major depressive disorder, single episode, unspecified; E10.21 Type 1 diabetes mellitus with diabetic nephropathy; Z79.899 Other long term (current) drug therapy
CPT/HCPCS: 99283; 96374; 96375 ×4; 96361; J2270; J1200; J0780; J1100; J1885

== ENCOUNTER 2020-10-18 06:27 | Day surgery (SDC) | payer OTHER ==
[2020-10-16 16:31] VITALS: BMI 18.3
[2020-10-18 07:00] VITALS: RESP 16; TEMP 99.2
[2020-10-18] MEDS ORDERED: LACTATED RINGERS 1,000 ML IV ONE ×2 (07:21→08:15)
[2020-10-18] MEDS ORDERED: LIDOCAINE 1% (10MG/ML) FOR IV START INTRADERMA ONE (07:22)
[2020-10-18] MEDS ORDERED: INSULIN ASPART (NovoLOG) 100 UNIT/ML VIAL SQ ONE (07:23)
[2020-10-18 07:25] LABS: Glucose,Whole Blood 465 mg/dL (75-99)
[2020-10-18] MEDS ORDERED: PROPOFOL 10 MG/ML 20 ML VIAL IV ONE (07:44)
[2020-10-18] MEDS ORDERED: MIDAZOLAM 2 MG/2 ML VIAL ONE (07:44)
[2020-10-18] MEDS ORDERED: LACTATED RINGERS 1,000 ML IV SCH (08:05)
--- NOTE | 2020-10-18 08:11 | P.PCN ---
Date of Procedure: 10/18/20 Procedure(s) Performed: Brief history: Patient is a pleasant 35-year-old white female scheduled for an elective upper endoscopy as well as colonoscopy as a part of evaluation of abdominal pain, intermittent nausea vomiting, severe diarrhea for the last several years duration. She lost 30 pounds in the last 1 year duration. Procedure performed: Esophagogastroduodenoscopy with biopsy Colonoscopy Preoperative diagnosis: Abdominal pain/intermittent nausea vomiting Chronic diarrhea and weight loss Anesthesia: MAC Procedure: After informed consent was obtained from the patient was brought into the endoscopy unit and IV sedation was administered by anesthesia under continuous monitoring. Initially upper endoscopy was done. The Olympus GF 160 video endoscope was inserted inserted into the mouth and esophagus intubated without any difficulty and was gradually advanced into the stomach and duodenum and carefully examined. The bulb and second part of the duodenum appeared normal. Biopsies were done from the duodenum to rule out celiac disease. The scope was then withdrawn into the stomach adequately insufflated with air and upon careful examination the antrum mild gastritis and biopsies were done from this area. The body, cardia and fundus appeared normal. there was moderate amount of food retained in the stomach suggestive of diabetic gastroparesis. The scope was then withdrawn into the esophagus. The GE junction was located at 40 cm to the incisors. It appeared regular with no erythema erosions or ulcerations. Rest of the esophagus appeared normal. Patient tolerated the procedure well. At this time the patient continued to remain sedation. Initial digital rectal examination was normal. Olympus CF 160 video colonoscope was then inserted into the rectum and gradually advanced to the cecum without any difficulty. Careful examination was performed as the scope was gradually being withdrawn. The prep wapoor and several areas of the colon. The cecum could not be visualized because of solid stool occupying the entire cecum. Thorough irrigation was performed. Mucosa of the ascending colon, transverse colon, descending colon, sigmoid colon and rectum appeared normal. . Random biopsies were done from ascending and descending colon to rule out microscopic/collagenous colitis. Retroflexion was performed in the rectum and no lesions were noted. Patient tolerated the procedure well. Impression: 1. Upper endoscopy revealed retained food in the stomach suggestive of diabetic gastroparesis and mild antral gastritis 2. Colonoscopy revealed extremely poor prep in several areas: No evidence of colitis or colorectal neoplasia. Status post post random biopsies to rule out microscopic/collagenous colitis. Recommendations: Findings of this examination were discussed with the patient as well as her family. She was advised to follow with the biopsy results. She'll be seen in office in a week.
[2020-10-18] MEDS ORDERED: IV FLUID CONTINUATION 200 ML IV ONE (08:15)
[2020-10-18 08:54] VITALS: BP 133/84; PULSE 85
== END 2020-10-18 08:58 | disposition home or self-care (01) ==
LOC: ORWHC2ENDO 06:27
PROVIDERS: ATTEND Internal Medicine Gastroenterology
DX: R11.2 Nausea with vomiting, unspecified (principal); E11.9 Type 2 diabetes mellitus without complications; K29.50 Unspecified chronic gastritis without bleeding; K20.90 Esophagitis, unspecified without bleeding; Z79.899 Other long term (current) drug therapy
CPT/HCPCS: 81025; 45380; 43239; J2250; J2704; 88305; 88312

== ENCOUNTER 2020-11-13 14:37 | Observation (INO) | payer OTHER ==
[2020-11-13] MEDS ORDERED: SODIUM CHLORIDE 0.9% 1,000 ML IV ONE (15:24)
[2020-11-13] MEDS ORDERED: SODIUM CHLORIDE 0.9% 500 ML 500 ML IV ONE (15:24)
[2020-11-13] MEDS ORDERED: LORazepam 2 MG/ML INJ IV STA ×2 (15:25→16:16)
--- NOTE | 2020-11-13 15:40 | ED ---
General Adult HPI - General Chief complaint: Syncope Stated complaint: Dizziness Time Seen by Provider: 11/13/20 15:14 Source: patient, RN notes reviewed Mode of arrival: wheelchair Limitations: no limitations - History of Present Illness Initial comments: This is a 35-year-old female presents emergency Department with chief complaint of feeling lightheaded. Patient states that she has neuropathy of her legs states that her leg started feeling weak earlier today. She states that she was going down the ground denies any head injury no loss conscious. Patient states is not out of the usual. Patient had no loss consciousness. No episode. Denies chest pain she states that she does feel very anxious when she has severe anxiety states her heart is racing. Denies any shortness breath fevers chills no focal weakness. Denies any leg swelling. - Related Data Home Medications Medication Instructions Recorded Confirmed Pregabalin [Lyrica] 75 mg PO TID 10/24/19 11/13/20 ALPRAZolam [Xanax] 0.5 mg PO HS PRN 04/26/20 11/13/20 Escitalopram [Lexapro] 20 mg PO DAILY 04/26/20 11/13/20 INSULIN ASPART (NovoLOG) [NovoLOG 15 unit SQ AC-TID 11/13/20 11/13/20 (formulary)] INSULIN ASPART (NovoLOG) [NovoLOG See Protocol SQ AC-TID 11/13/20 11/13/20 (formulary)] Insulin Detemir [Levemir Flextouch] 20 units SQ HS 11/13/20 11/13/20 Allergies Allergy/AdvReac Type Severity Reaction Status Date / Time No Known Allergies Allergy Verified 11/13/20 16:07 Review of Systems ROS Statement: Those systems with pertinent positive or pertinent negative responses have been documented in the HPI. ROS Other: All systems not noted in ROS Statement are negative. Past Medical History Past Medical History: Diabetes Mellitus, Syncope Additional Past Medical History / Comment(s): IDDM type I, neuropathy bilateral legs/feet, chronic low back pain, bilateral leg pain, migraines, hx chronic constipation. Hx HPV. Having diarrhea with any intake of food, chronic History of Any Multi-Drug Resistant Organisms: MRSA Date of last positivie culture/infection: 02/15/19 MDRO Source:: Head Past Surgical History: Tubal Ligation, Uterine Ablation Additional Past Surgical History / Comment(s): 12/22/17 colonoscopy, LAPAROSCOPIC REMOVAL Rt TUBE AND OVARY d/t endometriosis, D&C, HYSTEROSCOPY, NOVASURE ABLATION 2016. 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 Past Psychological History: Anxiety, Depression Smoking Status: Never smoker Past Alcohol Use History: None Reported Past Drug Use History: None Reported - Past Family History Mother Family Medical History: No Reported History, Rheumatoid Arthritis (RA) Additional Family Medical History / Comment(s): Mother is 63 yrs old. Father Family Medical History: Cancer, Diabetes Mellitus, Deep Vein Thrombosis (DVT), Hypertension Additional Family Medical History / Comment(s): THROAT CA- of but pt does not know at what age. General Exam Limitations: no limitations General appearance: alert, in no apparent distress Head exam: Present: atraumatic, normocephalic, normal inspection Neck exam: Present: normal inspection, full ROM. Absent: tenderness, meningismus, lymphadenopathy Respiratory exam: Present: normal lung sounds bilaterally. Absent: respiratory distress, wheezes, rales, rhonchi, stridor Cardiovascular Exam: Present: normal rhythm, tachycardia, normal heart sounds. Absent: systolic murmur, diastolic murmur, rubs, gallop, clicks Neurological exam: Present: alert, oriented X3, CN II-XII intact, reflexes normal. Absent: motor sensory deficit Psychiatric exam: Present: anxious Skin exam: Present: warm, dry, intact, normal color. Absent: rash Course Vital Signs 11/13/20 14:51 Temperature 97.4 F L Pulse Rate 121 H Respiratory 18 Rate Blood Pressure 110/69 O2 Sat by Pulse 98 Oximetry Medical Decision Making - Medical Decision Making 35-year-old female presented from for syncopal episode. Patient found to be in mild DKA, hyperglycemia was punched glucose 962, mild hyponatremia. Patient was started on IV fluids, insulin drip patient will be admitted to telemetry with close monitoring - Lab Data Result diagrams: 11/13/20 15:36 11/13/20 15:36 Lab Results 11/13/20 11/13/20 11/13/20 Range/Units 15:36 15:36 15:36 WBC 10.1 (3.8-10.6) k/uL RBC 4.13 (3.80-5.40) m/uL Hgb 11.8 (11.4-16.0) gm/dL Hct 37.4 (34.0-46.0) % MCV 90.4 (80.0-100.0) fL MCH 28.6 (25.0-35.0) pg MCHC 31.7 (31.0-37.0) g/dL RDW 12.2 (11.5-15.5) % Plt Count 409 (150-450) k/uL MPV 8.2 Neutrophils % 79 % Lymphocytes % 14 % Monocytes % 5 % Eosinophils % 1 % Basophils % 1 % Neutrophils # 8.0 H (1.3-7.7) k/uL Lymphocytes # 1.4 (1.0-4.8) k/uL Monocytes # 0.5 (0-1.0) k/uL Eosinophils # 0.1 (0-0.7) k/uL Basophils # 0.1 (0-0.2) k/uL Hypochromasia Moderate PT 9.3 (9.0-12.0) sec INR 0.8 (<1.2) APTT 19.6 L (22.0-30.0) sec Sodium 127 L (137-145) mmol/L Potassium 4.4 (3.5-5.1) mmol/L Chloride 89 L (98-107) mmol/L Carbon Dioxide 22 (22-30) mmol/L Anion Gap 16 mmol/L BUN 6 L (7-17) mg/dL Creatinine 0.36 L (0.52-1.04) mg/dL Est GFR (CKD-EPI)AfAm >90 (>60 ml/min/1.73 sqM) Est GFR (CKD-EPI)NonAf >90 (>60 ml/min/1.73 sqM) Glucose 962 H* (74-99) mg/dL Calcium 8.8 (8.4-10.2) mg/dL Total Bilirubin 0.6 (0.2-1.3) mg/dL AST 23 (14-36) U/L ALT 23 (4-34) U/L Alkaline Phosphatase 180 H (38-126) U/L Troponin I (0.000-0.034) ng/mL Total Protein 7.1 (6.3-8.2) g/dL Albumin 3.9 (3.5-5.0) g/dL 11/13/20 Range/Units 15:36 WBC (3.8-10.6) k/uL RBC (3.80-5.40) m/uL Hgb (11.4-16.0) gm/dL Hct (34.0-46.0) % MCV (80.0-100.0) fL MCH (25.0-35.0) pg MCHC (31.0-37.0) g/dL RDW (11.5-15.5) % Plt Count (150-450) k/uL MPV Neutrophils % % Lymphocytes % % Monocytes % % Eosinophils % % Basophils % % Neutrophils # (1.3-7.7) k/uL Lymphocytes # (1.0-4.8) k/uL Monocytes # (0-1.0) k/uL Eosinophils # (0-0.7) k/uL Basophils # (0-0.2) k/uL Hypochromasia PT (9.0-12.0) sec INR (<1.2) APTT (22.0-30.0) sec Sodium (137-145) mmol/L Potassium (3.5-5.1) mmol/L Chloride (98-107) mmol/L Carbon Dioxide (22-30) mmol/L Anion Gap mmol/L BUN (7-17) mg/dL Creatinine (0.52-1.04) mg/dL Est GFR (CKD-EPI)AfAm (>60 ml/min/1.73 sqM) Est GFR (CKD-EPI)NonAf (>60 ml/min/1.73 sqM) Glucose (74-99) mg/dL Calcium (8.4-10.2) mg/dL Total Bilirubin (0.2-1.3) mg/dL AST (14-36) U/L ALT (4-34) U/L Alkaline Phosphatase (38-126) U/L Troponin I <0.012 (0.000-0.034) ng/mL Total Protein (6.3-8.2) g/dL Albumin (3.5-5.0) g/dL Critical Care Time Critical Care Time: Yes Total Critical Care Time: 35 Disposition Clinical Impression: DKA (diabetic ketoacidosis), Near syncope, Hyponatremia Disposition: ADMITTED IP TO THIS HOSP Condition: Fair Referrals: Jairo Conroy MD [Primary Care Provider] - 1-2 days
--- NOTE | 2020-11-13 15:43 | XR ---
EXAMINATION TYPE: XR chest 2V DATE OF EXAM: 11/13/2020 COMPARISON: NONE HISTORY: Chest pain TECHNIQUE: Frontal and lateral views of the chest are obtained. FINDINGS: There is no focal air space opacity. No evidence for pneumothorax. No pleural effusion. The cardiac silhouette size is within normal limits. The osseous structures are grossly intact. IMPRESSION: 1. No acute cardiopulmonary process.
[2020-11-13 15:46] LABS: Basophils # (A) 0.1 k/uL (0-0.2); Basophils % (A) 1 %; Eosinophils # (A) 0.1 k/uL (0-0.7); Eosinophils % (A) 1 %; HCT 37.4 % (34.0-46.0); HGB 11.8 gm/dL (11.4-16.0); Hypochromasia Moderate; Lymphocytes # (A) 1.4 k/uL (1.0-4.8); Lymphocytes % (A) 14 %; MCH 28.6 pg (25.0-35.0); MCHC 31.7 g/dL (31.0-37.0); MCV 90.4 fL (80.0-100.0); Mean Platelet Volume 8.2; Monocytes # (A) 0.5 k/uL (0-1.0); Monocytes % (A) 5 %; Neutrophils % (A) 79 %; Platelet Count 409 k/uL (150-450); RBC 4.13 m/uL (3.80-5.40); RDW 12.2 % (11.5-15.5); WBC 10.1 k/uL (3.8-10.6)
[2020-11-13 15:59] LABS: INR 0.8 (<1.2); Prothrombin Time 9.3 sec (9.0-12.0)
[2020-11-13 16:00] LABS: AST 23 U/L (14-36); African American GFR (CKD) >90 (>60 ml/min/1.73 sqM); Albumin 3.9 g/dL (3.5-5.0); Alkaline Phosphatase 180 U/L (38-126); Anion Gap 16 mmol/L; Blood Urea Nitrogen 6 mg/dL (7-17); Calcium 8.8 mg/dL (8.4-10.2); Carbon Dioxide 22 mmol/L (22-30); Chloride 89 mmol/L (98-107); Non-African American GFR(CKD) >90 (>60 ml/min/1.73 sqM); Potassium 4.4 mmol/L (3.5-5.1); Sodium 127 mmol/L (137-145); Total Bilirubin 0.6 mg/dL (0.2-1.3); Total Protein 7.1 g/dL (6.3-8.2)
[2020-11-13 16:09] LABS: ALT 23 U/L (4-34)
[2020-11-13 16:15] LABS: Partial Thromboplastin Time 19.6 sec (22.0-30.0)
[2020-11-13] MEDS ORDERED: KETOROLAC 15 MG/ML 1 ML VIAL IVP STA (16:16)
[2020-11-13] MEDS ORDERED: METOCLOPRAMIDE 5 MG/ML 2 ML VIAL IVP STA (16:16)
[2020-11-13] MEDS ORDERED: diphenhydrAMINE 50 MG/ML 1 ML VIAL IVP STA (16:16)
[2020-11-13 16:21] LABS: Glucose 962 mg/dL (74-99)
[2020-11-13] MEDS ORDERED: INSULIN REGULAR 100 UNIT in SODIUM CHLORIDE 0.9% 100 ML IV SCH (16:30)
[2020-11-13 16:47] LABS: Appearance,Urine Clear (Clear); Bilirubin,Urine Negative (Negative); Blood,Urine Negative (Negative); Color,Urine Colorless; Glucose,Urine (UA) 4+ (Negative); Ketones,Urine Negative (Negative); Leukocyte Esterase,Urine Negative (Negative); Nitrite,Urine Negative (Negative); PH, Urine 5.5 (5.0-8.0); Protein,Urine Negative (Negative); Specific Gravity,Urine 1.033 (1.001-1.035); Urobilinogen,Urine <2.0 mg/dL (<2.0)
[2020-11-13 18:01] LABS: Glucose,Whole Blood 496 mg/dL (75-99)
[2020-11-13] MEDS: SODIUM CHLORIDE 0.9% 1,000 ML IV SCH (18:09)
[2020-11-13 18:56] LABS: Glucose,Whole Blood 414 mg/dL (75-99)
[2020-11-13 20:05] LABS: Glucose,Whole Blood 299 mg/dL (75-99)
[2020-11-13] MEDS ORDERED: D5-0.45% NACL WITH KCL 20MEQ/L 1,000 ML IV SCH (20:30)
[2020-11-13 20:36] LABS: African American GFR (CKD) >90 (>60 ml/min/1.73 sqM); Anion Gap 7 mmol/L; Blood Urea Nitrogen 4 mg/dL (7-17); Carbon Dioxide 25 mmol/L (22-30); Chloride 103 mmol/L (98-107); Glucose 307 mg/dL (74-99); Non-African American GFR(CKD) >90 (>60 ml/min/1.73 sqM); Phosphorus 3.2 mg/dL (2.5-4.5); Potassium 3.3 mmol/L (3.5-5.1); Sodium 135 mmol/L (137-145)
[2020-11-13 20:55] LABS: Glucose,Whole Blood 244 mg/dL (75-99)
[2020-11-13] MEDS: HEPARIN SODIUM,PORCINE/PF 5,000 UNIT/0.5 ML SYRINGE SQ SCH (21:20)
[2020-11-13] MEDS: PREGABALIN 75 MG CAP PO SCH (21:20)
[2020-11-13 21:57] LABS: Glucose,Whole Blood 115 mg/dL (75-99)
[2020-11-13 22:57] LABS: Glucose,Whole Blood 89 mg/dL (75-99)
[2020-11-13] MEDS ORDERED: INSULIN DETEMIR 100 UNIT/ML SQ SCH (23:00)
[2020-11-13] MEDS ORDERED: INSULN SQ SCH (23:00)
--- NOTE | 2020-11-13 23:03 | P.HPIM ---
History of Present Illness H&P Date: 11/13/20 Chief Complaint: dizziness patient is a 35-year-old female with a known history of diabetes type 1, bilateral peripheral neuropathy, chronic low back pain, migraine headaches and constipation mastectomies. And anxiety/depression presents to ER with complaints of dizziness and lightheadedness and near syncopal episode. Patient states that she has neuropathy of her legs and started feeling very weak. She has been having increased frequency of urination. Symptoms are getting worse for the past 2 days. Patient also felt cold. No fever. No nausea vomiting or abdominal pain or diarrhea. Patient states that she has GI issues and has been followed with GI in the clinic. Patient very anxious and emotional. Denies any recent illnesses. No recent travel. No sick contacts at home. Chest x-ray showed no acute cardiopulmonary process EKG showed sinus tachycardia with heart rate went up to 130 Laboratory data showed sodium 127 potassium 4.4 chloride 89 BUN 16 creatinine 0.36 anion gap 16 and bicarb is 22 Glucose 962, lactic acid 6.0 troponin x1 - and urinalysis is negative for infection Review of Systems Constitutional: Patient denies any fever. +chills . generalized weakness. Abdomen: Patient denied nausea vomiting and diarrhea and abdominal pain. Cardiovascular: Patient denies any chest pain or short of breath no palpitations. Respiratory: patient denied any cough or sputum production. No shortness of breath Neurologic: Patient denied any numbness or tingling headache. dizzi and lightheaded Musculoskeletal: Patient denies any complaints of joint swelling or deformity. Skin: Negative Psychiatric: Negative Endocrine: No heat or cold intolerance. No recent weight gain. Genitourinary: No dysuria or hematuria. All other 14 point ROS negative except the above Past Medical History Past Medical History: Diabetes Mellitus, Syncope Additional Past Medical History / Comment(s): IDDM type I, neuropathy bilateral legs/feet, chronic low back pain, bilateral leg pain, migraines, hx chronic constipation. Hx HPV. Having diarrhea with any intake of food, chronic History of Any Multi-Drug Resistant Organisms: MRSA Date of last positivie culture/infection: 02/15/19 MDRO Source:: Head Past Surgical History: Tubal Ligation, Uterine Ablation Additional Past Surgical History / Comment(s): 12/22/17 colonoscopy, LAPAROSCOPIC REMOVAL Rt TUBE AND OVARY d/t endometriosis, D&C, HYSTEROSCOPY, NOVASURE ABLATION 2016. 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 Past Psychological History: Anxiety, Depression Smoking Status: Never smoker Past Alcohol Use History: None Reported Past Drug Use History: None Reported - Past Family History Mother Family Medical History: No Reported History, Rheumatoid Arthritis (RA) Additional Family Medical History / Comment(s): Mother is 63 yrs old. Father Family Medical History: Cancer, Diabetes Mellitus, Deep Vein Thrombosis (DVT), Hypertension Additional Family Medical History / Comment(s): THROAT CA- of but pt does not know at what age. Medications and Allergies Home Medications Medication Instructions Recorded Confirmed Type RX: Pregabalin [Lyrica] 75 mg PO TID 10/24/19 11/13/20 History RX: ALPRAZolam [Xanax] 0.5 mg PO HS PRN 04/26/20 11/13/20 History RX: Escitalopram [Lexapro] 20 mg PO DAILY 04/26/20 11/13/20 History INSULIN ASPART (NovoLOG) [NovoLOG 15 unit SQ AC-TID 11/13/20 11/13/20 History (formulary)] INSULIN ASPART (NovoLOG) [NovoLOG See Protocol SQ AC-TID 11/13/20 11/13/20 History (formulary)] Insulin Detemir [Levemir Flextouch] 20 units SQ HS 11/13/20 11/13/20 History Allergies Allergy/AdvReac Type Severity Reaction Status Date / Time No Known Allergies Allergy Verified 11/13/20 16:07 Physical Exam Vitals: Vital Signs Temp Pulse Resp BP Pulse Ox 11/13/20 14:51 97.4 F L 121 H 18 110/69 98 Intake and Output 11/13/20 11/13/20 11/13/20 06:59 14:59 22:59 Other: Weight 40.823 kg PHYSICAL EXAMINATION: Patient is lying in the bed comfortably, no acute distress, awake alert and oriented. anxious and crying. HEENT: Normocephalic. Neck is supple. Pupils reactive. Nostrils clear. Oral cavity is moist. Ears reveal no drainage. Neck reveals no JVD, carotid bruits, or thyromegaly. CHEST EXAMINATION: Trachea is central. Symmetrical expansion. Lung abbott clear to auscultation and percussion. CARDIAC: Normal S1, S2 with no gallops. No murmurs ABDOMEN: Soft. Bowel sounds normal. No organomegaly. No abdominal bruits. Extremities: reveal no edema. No clubbing or cyanosis Neurologically awake, alert, oriented x3 with well-coordinated movements. No focal deficits noted Skin: No rash or skin lesions. Psychiatric: Coperative. very anxious Musculoskeletal: No joint swelling or deformity. Normal range of motion. Results CBC & Chem 7: 11/13/20 15:36 11/13/20 20:01 Labs: Abnormal Lab Results - Last 24 Hours (Table) 11/13/20 11/13/20 11/13/20 Range/Units 15:36 15:36 15:36 Neutrophils # 8.0 H (1.3-7.7) k/uL APTT 19.6 L (22.0-30.0) sec Sodium (137-145) mmol/L Chloride (98-107) mmol/L BUN (7-17) mg/dL Creatinine (0.52-1.04) mg/dL Glucose (74-99) mg/dL Alkaline Phosphatase (38-126) U/L Urine Glucose (UA) 4+ H (Negative) 11/13/20 Range/Units 15:36 Neutrophils # (1.3-7.7) k/uL APTT (22.0-30.0) sec Sodium 127 L (137-145) mmol/L Chloride 89 L (98-107) mmol/L BUN 6 L (7-17) mg/dL Creatinine 0.36 L (0.52-1.04) mg/dL Glucose 962 H* (74-99) mg/dL Alkaline Phosphatase 180 H (38-126) U/L Urine Glucose (UA) (Negative) Thrombosis Risk Factor Assmnt - DVT/VTE Prophylaxis DVT/VTE Prophylaxis: Pharmacologic Prophylaxis ordered Assessment and Plan Assessment: Acute mild DKA Hyperglycemia with uncontrolled diabetes type 1 Bilateral lower extremity peripheral neuropathy Generalized weakness and fatigue Hyponatremia due to hypovolemic as well as hyperglycemia Lactic acidosis due to dehydration and tissue hypoperfusion Anxiety/depression Near syncopal episode likely volume depletion moderate protein calorie malnutrition. DVT prophylaxis Heparin subcu Plan: Patient was started on insulin drip and monitor BMP and replace electrolytes. Continue with aggressive IV hydration and follow-up closely. Patient will be started on oral diet once DKA resolves. Continue with home medications Prognosis is guarded at this time. Time with Patient: Greater than 30
[2020-11-13] MEDS ORDERED: INSULIN DETEMIR (LEVEMIR) 100 UNIT/ML SYR SQ SCH (23:30)
[2020-11-13 23:53] LABS: Glucose,Whole Blood 147 mg/dL (75-99)
[2020-11-14 01:19] LABS: African American GFR (CKD) >90 (>60 ml/min/1.73 sqM); Anion Gap 5 mmol/L; Blood Urea Nitrogen 4 mg/dL (7-17); Carbon Dioxide 27 mmol/L (22-30); Chloride 104 mmol/L (98-107); Glucose 174 mg/dL (74-99); Non-African American GFR(CKD) >90 (>60 ml/min/1.73 sqM); Phosphorus 3.5 mg/dL (2.5-4.5); Potassium 3.6 mmol/L (3.5-5.1); Sodium 136 mmol/L (137-145)
[2020-11-14] MEDS: SODIUM CHLORIDE 0.9% 1,000 ML IV SCH ×4 (06:37→23:58)
[2020-11-14] MEDS: INSULIN ASPART (NovoLOG) 100 UNIT/ML VIAL SQ SCH ×4 (07:07→21:03)
[2020-11-14 07:09] LABS: Glucose,Whole Blood 311 mg/dL (75-99)
[2020-11-14 07:23] LABS: Glucose,Whole Blood 274 mg/dL (75-99)
[2020-11-14] MEDS: ESCITALOPRAM 20 MG TAB PO SCH (09:32)
[2020-11-14] MEDS: PREGABALIN 75 MG CAP PO SCH ×3 (09:32→21:02)
[2020-11-14] MEDS: HEPARIN SODIUM,PORCINE/PF 5,000 UNIT/0.5 ML SYRINGE SQ SCH ×2 (09:32→21:03)
[2020-11-14] MEDS ORDERED: INSULIN DETEMIR (LEVEMIR) 100 UNIT/ML SYR SQ STA (10:33)
[2020-11-14] MEDS ORDERED: HYDROcodone/APAP 5-325MG 1 EACH TAB PO STA (10:34)
[2020-11-14] MEDS ORDERED: NON FORMULARY DRUG (Omeprazole [Omeprazole] 20 MG Capsule.Dr) PO SCH (10:45)
[2020-11-14 10:50] VITALS: BMI 17.2
[2020-11-14] MEDS: PANTOPRAZOLE 40 MG TABLET PO SCH (11:07)
[2020-11-14 12:28] LABS: Glucose,Whole Blood 173 mg/dL (75-99)
[2020-11-14] MEDS: ACETAMINOPHEN TAB 325 MG TAB PO PRN (13:27)
[2020-11-14 17:25] LABS: Glucose,Whole Blood 320 mg/dL (75-99)
[2020-11-14] MEDS: HYDROcodone/APAP 5-325MG 1 EACH TAB PO PRN (19:04)
[2020-11-14 19:52] LABS: Glucose,Whole Blood 324 mg/dL (75-99)
[2020-11-14] MEDS ORDERED: INSULIN DETEMIR (LEVEMIR) 100 UNIT/ML SYR SQ SCH (21:00)
--- NOTE | 2020-11-14 23:42 | P.PN ---
Subjective Progress Note Date: 11/14/20 patient is a 35-year-old female with a known history of diabetes type 1, bilateral peripheral neuropathy, chronic low back pain, migraine headaches and constipation mastectomies. And anxiety/depression presents to ER with complaints of dizziness and lightheadedness and near syncopal episode. Patient states that she has neuropathy of her legs and started feeling very weak. She has been having increased frequency of urination. Symptoms are getting worse for the past 2 days. Patient also felt cold. No fever. No nausea vomiting or abdominal pain or diarrhea. Patient states that she has GI issues and has been followed with GI in the clinic. Patient very anxious and emotional. Denies any recent illnesses. No recent travel. No sick contacts at home. Chest x-ray showed no acute cardiopulmonary process EKG showed sinus tachycardia with heart rate went up to 130 Laboratory data showed sodium 127 potassium 4.4 chloride 89 BUN 16 creatinine 0.36 anion gap 16 and bicarb is 22 Glucose 962, lactic acid 6.0 troponin x1 - and urinalysis is negative for infection 11/14/2020 Patient is currently resting in the bed comfortably. Awake alert oriented x3. DKA has resolved. No complaints of chest pain or shortness of. No abdominal pain. Patient is able to tolerate oral diet slowly. Blood sugar is 170 4 in the morning but elevated in the afternoon. Currently being continued Levemir 20 units at bedtime along with NovoLog increased to 8 units 3 times daily AC. Monitor blood sugars closely and titrate dose as needed. Follow-up CBC and BMP tomorrow. Current medications reviewed. Objective - Vital Signs Vital signs: Vital Signs Temp 98.1 F 11/14/20 08:00 Pulse 106 H 11/14/20 14:00 Resp 17 11/14/20 14:00 BP 108/76 11/14/20 08:00 Pulse Ox 98 11/14/20 09:04 Intake & Output 11/13/20 11/14/20 11/14/20 18:59 06:59 18:59 Intake Total 50.631 240 Balance 50.631 240 Weight 40.823 kg 41.5 kg 41.5 kg Intake: Intake, IV Titration 50.631 Amount Insulin Regular 100 unit 50.631 In Sodium Chloride 0.9% 100 ml @ 0.1 UNITS/KG/HR 4.123 mls/hr IV .Q24H [facility] Rx#:[id number] Oral 240 Other: Voiding Method Toilet # Voids 0 1 - Exam PHYSICAL EXAMINATION: Patient is lying in the bed comfortably, no acute distress, awake alert and oriented. anxious . cathectic. HEENT: Normocephalic. Neck is supple. Pupils reactive. Nostrils clear. Oral cavity is moist. Ears reveal no drainage. Neck reveals no JVD, carotid bruits, or thyromegaly. CHEST EXAMINATION: Trachea is central. Symmetrical expansion. Lung abbott clear to auscultation and percussion. CARDIAC: Normal S1, S2 with no gallops. No murmurs ABDOMEN: Soft. Bowel sounds normal. No organomegaly. No abdominal bruits. Extremities: reveal no edema. No clubbing or cyanosis Neurologically awake, alert, oriented x3 with well-coordinated movements. No focal deficits noted Skin: No rash or skin lesions. Psychiatric: Coperative. very anxious Musculoskeletal: No joint swelling or deformity. Normal range of motion. - Labs CBC & Chem 7: 11/13/20 15:36 11/14/20 00:27 Labs: Abnormal Lab Results - Last 24 Hours (Table) 11/13/20 11/13/20 11/13/20 Range/Units 17:58 18:54 19:56 Sodium (137-145) mmol/L Potassium (3.5-5.1) mmol/L BUN (7-17) mg/dL Creatinine (0.52-1.04) mg/dL Glucose (74-99) mg/dL POC Glucose (mg/dL) 496 H 414 H 299 H (75-99) mg/dL 11/13/20 11/13/20 11/13/20 Range/Units 20:01 20:53 21:56 Sodium 135 L (137-145) mmol/L Potassium 3.3 L (3.5-5.1) mmol/L BUN 4 L (7-17) mg/dL Creatinine 0.25 L (0.52-1.04) mg/dL Glucose 307 H (74-99) mg/dL POC Glucose (mg/dL) 244 H 115 H (75-99) mg/dL 11/13/20 11/14/20 11/14/20 Range/Units 23:52 00:27 07:07 Sodium 136 L (137-145) mmol/L Potassium (3.5-5.1) mmol/L BUN 4 L (7-17) mg/dL Creatinine 0.29 L (0.52-1.04) mg/dL Glucose 174 H (74-99) mg/dL POC Glucose (mg/dL) 147 H 311 H (75-99) mg/dL 11/14/20 11/14/20 11/14/20 Range/Units 07:20 12:14 17:23 Sodium (137-145) mmol/L Potassium (3.5-5.1) mmol/L BUN (7-17) mg/dL Creatinine (0.52-1.04) mg/dL Glucose (74-99) mg/dL POC Glucose (mg/dL) 274 H 173 H 320 H (75-99) mg/dL Assessment and Plan Assessment: Acute mild DKA. resolved Hyperglycemia with uncontrolled diabetes type 1 Bilateral lower extremity peripheral neuropathy Generalized weakness and fatigue Hyponatremia due to hypovolemic as well as hyperglycemia Lactic acidosis due to dehydration and tissue hypoperfusion Anxiety/depression Near syncopal episode likely volume depletion moderate protein calorie malnutrition. DVT prophylaxis Heparin subcu Plan: Patient is being continued on IV hydration. DKA has resolved. Patient was started on subcu insulin and titrate dose as needed. Able to tolerate diet slowly. Patient is complaining of bilateral leg pain. Continued on Neurontin. Anticipate discharge in the next 24 hours with better blood sugar control.
[2020-11-15] MEDS: HYDROcodone/APAP 5-325MG 1 EACH TAB PO PRN ×4 (00:04→21:12)
[2020-11-15 06:59] LABS: Glucose,Whole Blood 208 mg/dL (75-99)
[2020-11-15] MEDS: INSULIN ASPART (NovoLOG) 100 UNIT/ML VIAL SQ SCH ×7 (07:07→21:15)
[2020-11-15] MEDS: PANTOPRAZOLE 40 MG TABLET PO SCH (07:07)
[2020-11-15 08:23] LABS: Basophils % (A) 0 %; Eosinophils # (A) 0.1 k/uL (0-0.7); Eosinophils % (A) 1 %; HCT 32.2 % (34.0-46.0); HGB 10.8 gm/dL (11.4-16.0); Lymphocytes # (A) 1.4 k/uL (1.0-4.8); Lymphocytes % (A) 18 %; MCHC 33.4 g/dL (31.0-37.0); Mean Platelet Volume 7.6; Monocytes # (A) 0.3 k/uL (0-1.0); Monocytes % (A) 4 %; Neutrophils # (A) 5.9 k/uL (1.3-7.7); Neutrophils % (A) 75 %; Platelet Count 332 k/uL (150-450); RDW 12.4 % (11.5-15.5); WBC 7.9 k/uL (3.8-10.6)
[2020-11-15] MEDS: ESCITALOPRAM 20 MG TAB PO SCH (08:52)
[2020-11-15] MEDS: HEPARIN SODIUM,PORCINE/PF 5,000 UNIT/0.5 ML SYRINGE SQ SCH ×2 (08:52→21:13)
[2020-11-15] MEDS: PREGABALIN 75 MG CAP PO SCH ×3 (08:53→21:13)
[2020-11-15 09:00] LABS: African American GFR (CKD) >90 (>60 ml/min/1.73 sqM); Anion Gap 5 mmol/L; Blood Urea Nitrogen 8 mg/dL (7-17); Calcium 8.7 mg/dL (8.4-10.2); Carbon Dioxide 19 mmol/L (22-30); Chloride 111 mmol/L (98-107); Glucose 210 mg/dL (74-99); Non-African American GFR(CKD) >90 (>60 ml/min/1.73 sqM); Potassium 4.1 mmol/L (3.5-5.1); Sodium 135 mmol/L (137-145)
[2020-11-15] MEDS: SODIUM CHLORIDE 0.9% 1,000 ML IV SCH ×2 (11:13→21:16)
[2020-11-15] MEDS: ACETAMINOPHEN TAB 325 MG TAB PO PRN ×2 (11:13→17:32)
[2020-11-15] MEDS: LOPERAMIDE 2 MG CAP PO PRN ×3 (11:50→21:12)
[2020-11-15] MEDS: ONDANSETRON 4 MG TAB PO PRN ×2 (11:50→17:32)
[2020-11-15 11:51] LABS: Glucose,Whole Blood 210 mg/dL (75-99)
[2020-11-15 14:28] LABS: African American GFR (CKD) >90 (>60 ml/min/1.73 sqM); Anion Gap 6 mmol/L; Blood Urea Nitrogen 8 mg/dL (7-17); Calcium 8.5 mg/dL (8.4-10.2); Carbon Dioxide 18 mmol/L (22-30); Chloride 112 mmol/L (98-107); Glucose 197 mg/dL (74-99); Non-African American GFR(CKD) >90 (>60 ml/min/1.73 sqM); Potassium 3.8 mmol/L (3.5-5.1); Sodium 136 mmol/L (137-145)
[2020-11-15 17:17] LABS: Glucose,Whole Blood 314 mg/dL (75-99)
[2020-11-15 20:54] LABS: Glucose,Whole Blood 255 mg/dL (75-99)
[2020-11-15] MEDS ORDERED: INSULIN DETEMIR (LEVEMIR) 100 UNIT/ML SYR SQ SCH (21:00)
[2020-11-16] MEDS: INSULIN ASPART (NovoLOG) 100 UNIT/ML VIAL SQ SCH ×4 (06:46→12:18)
[2020-11-16 06:56] LABS: Glucose,Whole Blood 62 mg/dL (75-99)
[2020-11-16] MEDS: PANTOPRAZOLE 40 MG TABLET PO SCH (06:57)
[2020-11-16 07:01] LABS: Glucose,Whole Blood 58 mg/dL (75-99)
[2020-11-16 07:14] LABS: Glucose,Whole Blood 101 mg/dL (75-99)
[2020-11-16] MEDS: HEPARIN SODIUM,PORCINE/PF 5,000 UNIT/0.5 ML SYRINGE SQ SCH (09:43)
[2020-11-16] MEDS: ESCITALOPRAM 20 MG TAB PO SCH (09:43)
[2020-11-16] MEDS: HYDROcodone/APAP 5-325MG 1 EACH TAB PO PRN (09:43)
[2020-11-16] MEDS: PREGABALIN 75 MG CAP PO SCH (09:44)
[2020-11-16 09:53] VITALS: TEMP 98
[2020-11-16 10:21] LABS: African American GFR (CKD) >90 (>60 ml/min/1.73 sqM); Anion Gap 5 mmol/L; Blood Urea Nitrogen 6 mg/dL (7-17); Carbon Dioxide 22 mmol/L (22-30); Chloride 109 mmol/L (98-107); Glucose 237 mg/dL (74-99); Non-African American GFR(CKD) >90 (>60 ml/min/1.73 sqM); Potassium 4.5 mmol/L (3.5-5.1); Sodium 136 mmol/L (137-145)
[2020-11-16 11:12] LABS: Glucose,Whole Blood 252 mg/dL (75-99)
[2020-11-16] MEDS: SODIUM CHLORIDE 0.9% 1,000 ML IV SCH (12:19)
--- NOTE | 2020-11-16 13:53 | P.PN ---
Subjective Progress Note Date: 11/15/20 Principal diagnosis: Acute mild DKA/ Hyperglycemia with uncontrolled diabetes type 1 Bilateral lower extremity peripheral neuropathy Hyponatremia due to hypovolemic as well as hyperglycemia 35-year-old female with a known history of diabetes type 1, bilateral peripheral neuropathy, chronic low back pain, migraine headaches and constipation mastectomies. And anxiety/depression presents to ER with complaints of dizziness and lightheadedness and near syncopal episode. Patient states that she has neuropathy of her legs and started feeling very weak. She has been having increased frequency of urination. Symptoms are getting worse for the past 2 days. Patient also felt cold. No fever. No nausea vomiting or abdominal pain or diarrhea. Patient states that she has GI issues and has been followed with GI in the clinic. Patient very anxious and emotional. Denies any recent illnesses. No recent travel. No sick contacts at home. Objective - Vital Signs Vital signs: Vital Signs Temp 98.1 F 11/15/20 08:00 Pulse 104 H 11/15/20 10:57 Resp 18 11/15/20 10:57 BP 112/70 11/15/20 10:57 Pulse Ox 98 11/15/20 10:57 Intake & Output 11/14/20 11/15/20 11/15/20 18:59 06:59 18:59 Intake Total 1780 600 240 Balance 1780 600 240 Weight 41.5 kg 43.5 kg Intake: Intake, IV Titration 1000 600 Amount Sodium Chloride 0.9% 1, 1000 600 000 ml @ 100 mls/hr IV . Q10H [facility] Rx#:[id number] Oral 780 240 Other: Voiding Method Toilet Toilet Toilet # Voids 5 3 0 # Bowel Movements 2 0 - Exam Patient is lying in the bed comfortably, no acute distress, awake alert and or iented. anxious . cathectic. HEENT: Normocephalic. Neck is supple. Pupils reactive. Nostrils clear. Oral cavity is moist. Ears reveal no drainage. Neck reveals no JVD, carotid bruits, or thyromegaly. CHEST EXAMINATION: Trachea is central. Symmetrical expansion. Lung abbott clear to auscultation and percussion. CARDIAC: Normal S1, S2 with no gallops. No murmurs ABDOMEN: Soft. Bowel sounds normal. No organomegaly. No abdominal bruits. Extremities: reveal no edema. No clubbing or cyanosis Neurologically awake, alert, oriented x3 with well-coordinated movements. No focal deficits noted Skin: No rash or skin lesions. Psychiatric: Coperative. very anxious Musculoskeletal: No joint swelling or deformity. Normal range of motion. - Labs CBC & Chem 7: 11/15/20 07:33 11/16/20 09:35 Labs: Abnormal Lab Results - Last 24 Hours (Table) 11/14/20 11/14/20 11/15/20 Range/Units 17:23 19:51 06:58 RBC (3.80-5.40) m/uL Hgb (11.4-16.0) gm/dL Hct (34.0-46.0) % Sodium (137-145) mmol/L Chloride (98-107) mmol/L Carbon Dioxide (22-30) mmol/L Creatinine (0.52-1.04) mg/dL Glucose (74-99) mg/dL POC Glucose (mg/dL) 320 H 324 H 208 H (75-99) mg/dL 11/15/20 11/15/20 11/15/20 Range/Units 07:33 07:33 11:50 RBC 3.70 L (3.80-5.40) m/uL Hgb 10.8 L (11.4-16.0) gm/dL Hct 32.2 L (34.0-46.0) % Sodium 135 L (137-145) mmol/L Chloride 111 H (98-107) mmol/L Carbon Dioxide 19 L (22-30) mmol/L Creatinine 0.31 L (0.52-1.04) mg/dL Glucose 210 H (74-99) mg/dL POC Glucose (mg/dL) 210 H (75-99) mg/dL Assessment and Plan Assessment: Acute mild DKA. resolved Hyperglycemia with uncontrolled diabetes type 1 Bilateral lower extremity peripheral neuropathy Generalized weakness and fatigue Hyponatremia due to hypovolemic as well as hyperglycemia Lactic acidosis due to dehydration and tissue hypoperfusion Anxiety/depression Near syncopal episode likely volume depletion moderate protein calorie malnutrition. DVT prophylaxis Heparin subcu Plan: Patient is being continued on IV hydration. DKA has resolved. Patient was started on subcu insulin and titrate dose as needed. Able to tolerate diet slowly. Patient is complaining of bilateral leg pain. Continued on Neurontin. Anticipate discharge in the next 24 hours with better blood sugar control.
[2020-11-16 14:48] VITALS: PULSE 106
[2020-11-16 15:39] VITALS: BP 108/64; RESP 16
[2020-11-18 09:13] LABS: Hemoglobin A1C 19.1
--- NOTE | 2020-12-08 19:15 | P.DS ---
Providers Date of admission: 11/13/20 16:41 Expected date of discharge: 11/16/20 Attending physician: Jessica Pena Primary care physician: Rafiq Gill [facility] Course: Acute mild DKA/ Hyperglycemia with uncontrolled diabetes type 1 Bilateral lower extremity peripheral neuropathy Hyponatremia due to hypovolemic as well as hyperglycemia 35-year-old female with a known history of diabetes type 1, bilateral peripheral neuropathy, chronic low back pain, migraine headaches and constipation mastectomies. And anxiety/depression presents to ER with complaints of dizziness and lightheadedness and near syncopal episode. Patient states that she has neuropathy of her legs and started feeling very weak. She has been having increased frequency of urination. Symptoms are getting worse for the past 2 days. Patient also felt cold. No fever. No nausea vomiting or abdominal pain or diarrhea. Patient states that she has GI issues and has been followed with GI in the clinic. Patient very anxious and emotional. Denies any recent illnesses. No recent travel. No sick contacts at home. patient responded well to treatment and was dc'ed in a stable condition Patient Condition at Discharge: Fair Plan - Discharge Summary Discharge Rx Participant: No New Discharge Prescriptions: Continue Pregabalin [Lyrica] 75 mg PO TID Escitalopram [Lexapro] 20 mg PO DAILY ALPRAZolam [Xanax] 0.5 mg PO HS PRN PRN Reason: Anxiety INSULIN ASPART (NovoLOG) [NovoLOG (formulary)] 15 unit SQ AC-TID Omeprazole 20 mg PO DAILY INSULIN ASPART (NovoLOG) [NovoLOG (formulary)] See Protocol SQ AC-TID Changed Insulin Detemir [Levemir Flextouch] 25 units SQ HS #0 Discharge Medication List Pregabalin [Lyrica] 75 mg PO TID 10/24/19 [History] ALPRAZolam [Xanax] 0.5 mg PO HS PRN 04/26/20 [History] Escitalopram [Lexapro] 20 mg PO DAILY 04/26/20 [History] INSULIN ASPART (NovoLOG) [NovoLOG (formulary)] 15 unit SQ AC-TID 11/13/20 [History] INSULIN ASPART (NovoLOG) [NovoLOG (formulary)] See Protocol SQ AC-TID 11/13/20 [History] Omeprazole 20 mg PO DAILY 11/14/20 [History] Insulin Detemir [Levemir Flextouch] 25 units SQ HS #0 11/16/20 [Rx] Follow up Appointment(s)/Referral(s): Jairo Conroy MD [Primary Care Provider] - 1-2 days (Office is closed. Please call to schedule appointment) Patient Instructions/Handouts: Diabetic Ketoacidosis (DC) Discharge Disposition: HOME SELF-CARE
== END 2020-11-16 16:03 | disposition home or self-care (01) ==
LOC: EC 14:37 → 3SCARD 16:41 → INTOOBSV 16:41 → 3SCARD 17:32 → UNDODISIN 11-16 16:03
PROVIDERS: ADMIT Internal Medicine; ATTEND Internal Medicine
DX: E10.10 Type 1 diabetes mellitus with ketoacidosis without coma (principal); E87.1 Hypo-osmolality and hyponatremia; E10.42 Type 1 diabetes mellitus with diabetic polyneuropathy; E44.0 Moderate protein-calorie malnutrition; E86.0 Dehydration; E86.1 Hypovolemia; Z68.1 Body mass index [BMI] 19.9 or less, adult; R55 Syncope and collapse; G89.29 Other chronic pain; M54.5 Low back pain; K59.09 Other constipation; N80.9 Endometriosis, unspecified; G43.909 Migraine, unspecified, not intractable, without status migrainosus; F32.9 Major depressive disorder, single episode, unspecified; F41.9 Anxiety disorder, unspecified; Z79.4 Long term (current) use of insulin; Z79.899 Other long term (current) drug therapy; Z86.14 Personal history of Methicillin resistant Staphylococcus aureus infection; Z98.51 Tubal ligation status; Z90.79 Acquired absence of other genital organ(s); Z90.721 Acquired absence of ovaries, unilateral; Z98.890 Other specified postprocedural states; Z83.3 Family history of diabetes mellitus; Z80.8 Family history of malignant neoplasm of other organs or systems; Z82.49 Family history of ischemic heart disease and other diseases of the circulatory system; Z82.61 Family history of arthritis
CPT/HCPCS: 96361 ×4; 96372 ×4; 96376; 96374; 96375; 99285; 36415; 94760; 93005; 80051 ×2; 80053; 80048 ×2; 82565 ×2; 83605; 84100 ×2; 82947 ×2; 84520 ×2; 84484; 85025 ×2; 85610; 85730; 81003; 83036; 71046; G0378 ×4; J2060; J1200; J2765; J1885; J1644 ×4; 99291

== ENCOUNTER 2020-12-07 22:44 | Emergency (ER) | payer OTHER ==
[2020-12-07 22:53] VITALS: BP 132/87; PULSE 115; RESP 18; TEMP 98
[2020-12-07] MEDS: KETOROLAC 15 MG/ML 1 ML VIAL IM STA (23:05)
--- NOTE | 2020-12-07 23:14 | ED ---
Lower Extremity Injury HPI - General Chief Complaint: Extremity Injury, Lower Stated Complaint: RT ankle injury Time Seen by Provider: 12/07/20 22:52 Source: patient, family Mode of arrival: wheelchair Limitations: no limitations - History of Present Illness Initial Comments: 35-year-old female presents to emergency Department with a chief complaint of right ankle pain. Patient reports about one week ago she had an inversion injury to the right ankle. Patient reports now she has had no significant improvement in symptoms. States the pain is exacerbated with ambulation and weightbearing in the right ankle. Reports mild swelling to the right lateral malleolus with some pain distal lower leg. Denies any ecchymosis erythema or paresthesias to the leg. - Related Data Home Medications Medication Instructions Recorded Confirmed Pregabalin [Lyrica] 75 mg PO TID 10/24/19 11/13/20 ALPRAZolam [Xanax] 0.5 mg PO HS PRN 04/26/20 11/13/20 Escitalopram [Lexapro] 20 mg PO DAILY 04/26/20 11/13/20 INSULIN ASPART (NovoLOG) [NovoLOG 15 unit SQ AC-TID 11/13/20 11/13/20 (formulary)] INSULIN ASPART (NovoLOG) [NovoLOG See Protocol SQ AC-TID 11/13/20 11/13/20 (formulary)] Omeprazole 20 mg PO DAILY 11/14/20 11/14/20 Previous Rx's Medication Instructions Recorded Insulin Detemir [Levemir Flextouch] 25 units SQ HS #0 11/16/20 Allergies Allergy/AdvReac Type Severity Reaction Status Date / Time No Known Allergies Allergy Verified 12/07/20 22:52 Review of Systems ROS Statement: Those systems with pertinent positive or pertinent negative responses have been documented in the HPI. ROS Other: All systems not noted in ROS Statement are negative. Past Medical History Past Medical History: Diabetes Mellitus, Syncope Additional Past Medical History / Comment(s): IDDM type I, neuropathy bilateral legs/feet, chronic low back pain, bilateral leg pain, migraines, hx chronic constipation. Hx HPV. Having diarrhea with any intake of food, chronic History of Any Multi-Drug Resistant Organisms: MRSA Date of last positivie culture/infection: 02/15/19 MDRO Source:: Head Past Surgical History: Tubal Ligation, Uterine Ablation Additional Past Surgical History / Comment(s): 12/22/17 colonoscopy, LAPAROSCOPIC REMOVAL Rt TUBE AND OVARY d/t endometriosis, D&C, HYSTEROSCOPY, NOVASURE ABLATION 2016. 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 Past Psychological History: Anxiety, Depression Smoking Status: Never smoker Past Alcohol Use History: None Reported Past Drug Use History: None Reported - Past Family History Mother Family Medical History: No Reported History, Rheumatoid Arthritis (RA) Additional Family Medical History / Comment(s): Mother is 63 yrs old. Father Family Medical History: Cancer, Diabetes Mellitus, Deep Vein Thrombosis (DVT), Hypertension Additional Family Medical History / Comment(s): THROAT CA- of but pt does not know at what age. General Exam Limitations: no limitations General appearance: alert, in no apparent distress Head exam: Present: atraumatic, normocephalic, normal inspection Eye exam: Present: normal appearance, PERRL, EOMI Pupils: Present: normal accommodation ENT exam: Present: normal exam, normal oropharynx, mucous membranes moist Neck exam: Present: normal inspection, full ROM. Absent: tenderness, lymphadenopathy Respiratory exam: Present: normal lung sounds bilaterally. Absent: respiratory distress Cardiovascular Exam: Present: regular rate, normal rhythm, normal heart sounds. Absent: systolic murmur Extremities exam: Present: full ROM (Limited range of motion with inversion), tenderness (Right high ankle lateral malleoli tenderness), normal capillary refill, joint swelling (Right ankle), other (Palpable DP and PT bilaterally. Sensation intact in the right leg). Absent: normal inspection (Mild swelling of the right ankle), pedal edema Back exam: Present: normal inspection, full ROM. Absent: tenderness Neurological exam: Present: alert, oriented X3 Psychiatric exam: Present: normal affect, normal mood Skin exam: Present: warm, dry, intact, normal color Course Vital Signs 12/07/20 22:48 Temperature 98 F Pulse Rate 115 H Respiratory 18 Rate Blood Pressure 132/87 O2 Sat by Pulse 97 Oximetry Medical Decision Making - Medical Decision Making 35-year-old female presents to emergency Department with a chief complaint of right ankle pain. On physical examination, she is neurovascularly intact. X- ray shows some mild soft tissue swelling but otherwise no acute findings. Jhonatan wrap was applied. She was advised to rest, ice, compression and elevation. Advised to follow-up with learning operations specialist. Strict return parameters were thoroughly discussed with patient is understanding and agreeable. Case discussed with physician. Disposition Clinical Impression: Ankle sprain Disposition: HOME SELF-CARE Condition: Stable Instructions (If sedation given, give patient instructions): Ankle Sprain (ED) Additional Instructions: Please return to the Emergency Department if symptoms worsen or any other concerns. Is patient prescribed a controlled substance at d/c from ED?: No Referrals: Jairo Conroy MD [Primary Care Provider] - 1-2 days Huy Neavrez DO [Doctor of Osteopathic Medicine] - 1-2 days Time of Disposition: 23:34
--- NOTE | 2020-12-07 23:14 | XR ---
EXAMINATION TYPE: XR ankle complete RT DATE OF EXAM: 12/07/2020 COMPARISON: NONE HISTORY: Fall. Pain. TECHNIQUE: 3 views FINDINGS: Ankle mortise is anatomic. There is mild soft tissue swelling over the lateral malleolus. I see no fracture nor dislocation. IMPRESSION: Lateral soft tissue swelling. No fracture seen.
== END 2020-12-07 23:39 | disposition home or self-care (01) ==
LOC: EC 22:44
DX: S93.401A Sprain of unspecified ligament of right ankle, initial encounter (principal); E11.40 Type 2 diabetes mellitus with diabetic neuropathy, unspecified; G43.909 Migraine, unspecified, not intractable, without status migrainosus; F32.9 Major depressive disorder, single episode, unspecified; F41.9 Anxiety disorder, unspecified; Z79.4 Long term (current) use of insulin; X50.1XXA Overexertion from prolonged static or awkward postures, initial encounter
CPT/HCPCS: 73610; 99283; 96372; J1885

== ENCOUNTER 2021-05-09 02:05 | Inpatient (IN) | payer OTHER ==
[2021-05-09] MEDS ORDERED: SODIUM CHLORIDE 0.9% 1,000 ML IV STA ×3 (02:21→03:21)
[2021-05-09] MEDS ORDERED: SODIUM CHLORIDE 0.9% 500 ML 500 ML IV STA (02:21)
[2021-05-09] MEDS ORDERED: ONDANSETRON 4 MG/2 ML VIAL IVP STA (02:21)
[2021-05-09 02:26] LABS: Glucose,Whole Blood 437 mg/dL (75-99)
--- NOTE | 2021-05-09 02:30 | ED ---
Nausea/Vomiting/Diarrhea HPI - General Chief complaint: Nausea/Vomiting/Diarrhea Stated complaint: Hyperglycemia Time Seen by Provider: 05/09/21 02:21 Source: patient, EMS, RN notes reviewed, old records reviewed Mode of arrival: EMS Limitations: no limitations - History of Present Illness Initial comments: This is a 36-year-old female DF for evaluation patient has history of coronavirus suffer from coronavirus 2 weeks ago current pain always has been a diabetic. Patient is a severe diabetic very weak nausea vomiting lightheadedness dizziness occasional symptoms of near-syncope and diffuse body aches and pains. MD complaint: nausea, vomiting, abdominal pain -: days(s) Description of Vomiting: food contents Description of Diarrhea: water Associated Abdominal Pain: Yes Location: diffuse Radiation: none Severity: moderate Severity scale (1-10): 5 Quality: cramping, stabbing, aching Consistency: constant Improves with: none Worsens with: none Associated Symptoms: myalgias, loss of appetite, nausea/vomiting, weakness - Related Data Home Medications Medication Instructions Recorded Confirmed Pregabalin [Lyrica] 75 mg PO TID 10/24/19 11/13/20 ALPRAZolam [Xanax] 0.5 mg PO HS PRN 04/26/20 11/13/20 Escitalopram [Lexapro] 20 mg PO DAILY 04/26/20 11/13/20 INSULIN ASPART (NovoLOG) [NovoLOG 15 unit SQ AC-TID 11/13/20 11/13/20 (formulary)] INSULIN ASPART (NovoLOG) [NovoLOG See Protocol SQ AC-TID 11/13/20 11/13/20 (formulary)] Omeprazole 20 mg PO DAILY 11/14/20 11/14/20 Previous Rx's Medication Instructions Recorded Insulin Detemir [Levemir Flextouch 25 units SQ HS #0 11/16/20 Pen] Allergies Allergy/AdvReac Type Severity Reaction Status Date / Time No Known Allergies Allergy Verified 12/07/20 22:52 Review of Systems ROS Statement: Those systems with pertinent positive or pertinent negative responses have been documented in the HPI. ROS Other: All systems not noted in ROS Statement are negative. Past Medical History Past Medical History: Diabetes Mellitus, Syncope Additional Past Medical History / Comment(s): IDDM type I, neuropathy bilateral legs/feet, chronic low back pain, bilateral leg pain, migraines, hx chronic co nstipation. Hx HPV. Having diarrhea with any intake of food, chronic History of Any Multi-Drug Resistant Organisms: MRSA Date of last positivie culture/infection: 02/15/19 MDRO Source:: Head Past Surgical History: Tubal Ligation, Uterine Ablation Additional Past Surgical History / Comment(s): 12/22/17 colonoscopy, LAPAROSCOPIC REMOVAL Rt TUBE AND OVARY d/t endometriosis, D&C, HYSTEROSCOPY, NOVASURE ABLATION 2016. 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 Past Psychological History: Anxiety, Depression Smoking Status: Never smoker Past Alcohol Use History: None Reported Past Drug Use History: None Reported - Past Family History Mother Family Medical History: No Reported History, Rheumatoid Arthritis (RA) Additional Family Medical History / Comment(s): Mother is 63 yrs old. Father Family Medical History: Cancer, Diabetes Mellitus, Deep Vein Thrombosis (DVT), Hypertension Additional Family Medical History / Comment(s): THROAT CA- of but pt does not know at what age. General Exam Limitations: no limitations General appearance: alert, in no apparent distress Head exam: Present: atraumatic, normocephalic, normal inspection Eye exam: Present: normal appearance, PERRL, EOMI. Absent: scleral icterus, conjunctival injection, periorbital swelling ENT exam: Present: normal exam, mucous membranes dry Neck exam: Present: normal inspection. Absent: tenderness, meningismus, lymphadenopathy Respiratory exam: Present: normal lung sounds bilaterally. Absent: respiratory distress, wheezes, rales, rhonchi, stridor Cardiovascular Exam: Present: normal rhythm, tachycardia, normal heart sounds. Absent: systolic murmur, diastolic murmur, rubs, gallop, clicks GI/Abdominal exam: Present: soft, normal bowel sounds. Absent: distended, tenderness, guarding, rebound, rigid Extremities exam: Present: normal inspection, full ROM, normal capillary refill. Absent: tenderness, pedal edema, joint swelling, calf tenderness Back exam: Present: normal inspection Neurological exam: Present: alert, oriented X3, CN II-XII intact Psychiatric exam: Present: normal affect, normal mood Skin exam: Present: warm, dry, intact, normal color. Absent: rash Course Vital Signs 05/09/21 05/09/21 05/09/21 02:12 04:30 05:31 Temperature 97.5 F L Pulse Rate 122 H 109 H 110 H Respiratory 20 18 16 Rate Blood Pressure 122/77 98/49 101/64 O2 Sat by Pulse 98 98 92 L Oximetry - Reevaluation(s) Reevaluation #1: 05/09/21 03:21 Medical record is reviewed Reevaluation #2: 05/09/21 05:36 Patient severely weak persistent nausea vomiting here in the emergency department Reevaluation #3: 05/09/21 05:36 Patient has no improvement here in the ER Reevaluation #4: 05/09/21 05:36 Patient is informed of results and questions answered - Consultations Consultation #1: Spoke with [facility] we'll admit this patient Medical Decision Making - Medical Decision Making 36 female to the emergency department with history of type 1 diabetes admitted for DKA secondary to pneumonia secondary to recent coronavirus infection. Patient be admitted for DKA protocol IV antibiotics and supportive care - Lab Data Result diagrams: 05/09/21 02:39 05/09/21 02:39 Lab Results 05/09/21 05/09/21 05/09/21 Range/Units 02:14 02:39 02:39 WBC (3.8-10.6) k/uL RBC (3.80-5.40) m/uL Hgb (11.4-16.0) gm/dL Hct (34.0-46.0) % MCV (80.0-100.0) fL MCH (25.0-35.0) pg MCHC (31.0-37.0) g/dL RDW (11.5-15.5) % Plt Count (150-450) k/uL MPV Neutrophils % % Lymphocytes % % Monocytes % % Eosinophils % % Basophils % % Neutrophils # (1.3-7.7) k/uL Lymphocytes # (1.0-4.8) k/uL Monocytes # (0-1.0) k/uL Eosinophils # (0-0.7) k/uL Basophils # (0-0.2) k/uL Hypochromasia PT (9.0-12.0) sec INR (<1.2) APTT (22.0-30.0) sec VBG pH (7.31-7.41) VBG pCO2 (37-51) mmHg VBG HCO3 (24-28) mmol/L Sodium 137 (137-145) mmol/L Potassium 3.8 (3.5-5.1) mmol/L Chloride 97 L (98-107) mmol/L Carbon Dioxide 10 L (22-30) mmol/L Anion Gap 30 mmol/L BUN 5 L (7-17) mg/dL Creatinine 0.46 L (0.52-1.04) mg/dL Est GFR (CKD-EPI)AfAm >90 (>60 ml/min/1.73 sqM) Est GFR (CKD-EPI)NonAf >90 (>60 ml/min/1.73 sqM) Glucose 460 H (74-99) mg/dL POC Glucose (mg/dL) 437 H (75-99) mg/dL POC Glu Poultry Culler ID Tao Dickerson Lactic Ac Sepsis Rflx Plasma Lactic Acid Silvino 2.5 H* (0.7-2.0) mmol/L Calcium 9.6 (8.4-10.2) mg/dL Phosphorus 5.3 H (2.5-4.5) mg/dL Magnesium 1.9 (1.6-2.3) mg/dL Total Bilirubin 0.6 (0.2-1.3) mg/dL AST 14 (14-36) U/L ALT 9 (4-34) U/L Alkaline Phosphatase 300 H (38-126) U/L Ammonia <9 (<30) umol/L Lactate Dehydrogenase 747 H (313-618) U/L Troponin I (0.000-0.034) ng/mL C-Reactive Protein 36.7 H (<1.0) mg/dL Total Protein 7.7 (6.3-8.2) g/dL Albumin 3.4 L (3.5-5.0) g/dL Acetone, Qual Positive (Negative) 05/09/21 05/09/21 05/09/21 Range/Units 02:39 02:39 02:39 WBC 33.5 H (3.8-10.6) k/uL RBC 4.20 (3.80-5.40) m/uL Hgb 10.5 L (11.4-16.0) gm/dL Hct 36.8 (34.0-46.0) % MCV 87.7 (80.0-100.0) fL MCH 25.0 (25.0-35.0) pg MCHC 28.5 L (31.0-37.0) g/dL RDW 14.3 (11.5-15.5) % Plt Count 793 H (150-450) k/uL MPV 7.7 Neutrophils % 91 % Lymphocytes % 5 % Monocytes % 3 % Eosinophils % 0 % Basophils % 0 % Neutrophils # 30.4 H (1.3-7.7) k/uL Lymphocytes # 1.8 (1.0-4.8) k/uL Monocytes # 1.0 (0-1.0) k/uL Eosinophils # 0.0 (0-0.7) k/uL Basophils # 0.1 (0-0.2) k/uL Hypochromasia Marked PT 11.1 (9.0-12.0) sec INR 1.0 (<1.2) APTT 23.4 (22.0-30.0) sec VBG pH (7.31-7.41) VBG pCO2 (37-51) mmHg VBG HCO3 (24-28) mmol/L Sodium (137-145) mmol/L Potassium (3.5-5.1) mmol/L Chloride (98-107) mmol/L Carbon Dioxide (22-30) mmol/L Anion Gap mmol/L BUN (7-17) mg/dL Creatinine (0.52-1.04) mg/dL Est GFR (CKD-EPI)AfAm (>60 ml/min/1.73 sqM) Est GFR (CKD-EPI)NonAf (>60 ml/min/1.73 sqM) Glucose (74-99) mg/dL POC Glucose (mg/dL) (75-99) mg/dL POC Glu Poultry Culler ID Lactic Ac Sepsis Rflx Plasma Lactic Acid Silvino (0.7-2.0) mmol/L Calcium (8.4-10.2) mg/dL Phosphorus (2.5-4.5) mg/dL Magnesium (1.6-2.3) mg/dL Total Bilirubin (0.2-1.3) mg/dL AST (14-36) U/L ALT (4-34) U/L Alkaline Phosphatase (38-126) U/L Ammonia (<30) umol/L Lactate Dehydrogenase (313-618) U/L Troponin I <0.012 (0.000-0.034) ng/mL C-Reactive Protein (<1.0) mg/dL Total Protein (6.3-8.2) g/dL Albumin (3.5-5.0) g/dL Acetone, Qual (Negative) 05/09/21 05/09/21 05/09/21 Range/Units 03:28 03:28 04:55 WBC (3.8-10.6) k/uL RBC (3.80-5.40) m/uL Hgb (11.4-16.0) gm/dL Hct (34.0-46.0) % MCV (80.0-100.0) fL MCH (25.0-35.0) pg MCHC (31.0-37.0) g/dL RDW (11.5-15.5) % Plt Count (150-450) k/uL MPV Neutrophils % % Lymphocytes % % Monocytes % % Eosinophils % % Basophils % % Neutrophils # (1.3-7.7) k/uL Lymphocytes # (1.0-4.8) k/uL Monocytes # (0-1.0) k/uL Eosinophils # (0-0.7) k/uL Basophils # (0-0.2) k/uL Hypochromasia PT (9.0-12.0) sec INR (<1.2) APTT (22.0-30.0) sec VBG pH 7.10 L* (7.31-7.41) VBG pCO2 34 L (37-51) mmHg VBG HCO3 10 L (24-28) mmol/L Sodium (137-145) mmol/L Potassium (3.5-5.1) mmol/L Chloride (98-107) mmol/L Carbon Dioxide (22-30) mmol/L Anion Gap mmol/L BUN (7-17) mg/dL Creatinine (0.52-1.04) mg/dL Est GFR (CKD-EPI)AfAm (>60 ml/min/1.73 sqM) Est GFR (CKD-EPI)NonAf (>60 ml/min/1.73 sqM) Glucose (74-99) mg/dL POC Glucose (mg/dL) 381 H (75-99) mg/dL POC Glu Poultry Culler ID Tao Dickerson Lactic Ac Sepsis Rflx Y Plasma Lactic Acid Silvino (0.7-2.0) mmol/L Calcium (8.4-10.2) mg/dL Phosphorus (2.5-4.5) mg/dL Magnesium (1.6-2.3) mg/dL Total Bilirubin (0.2-1.3) mg/dL AST (14-36) U/L ALT (4-34) U/L Alkaline Phosphatase (38-126) U/L Ammonia (<30) umol/L Lactate Dehydrogenase (313-618) U/L Troponin I (0.000-0.034) ng/mL C-Reactive Protein (<1.0) mg/dL Total Protein (6.3-8.2) g/dL Albumin (3.5-5.0) g/dL Acetone, Qual (Negative) - EKG Data -: EKG Interpreted by Me (EKG is sinus tachycardia 120 OH 126 QRS 94 QTC 517) - Radiology Data Radiology results: report reviewed (Chest x-rays positive for pneumonia), image reviewed Critical Care Time Critical Care Time: Yes Total Critical Care Time: 31 Disposition Clinical Impression: Ketoacidosis, Dehydration, DKA (diabetic ketoacidoses), Community acquired pneumonia Disposition: ADMITTED IP TO THIS HOSP Condition: Serious Is patient prescribed a controlled substance at d/c from ED?: No Referrals: Jairo Conroy MD [Primary Care Provider] - 1-2 days
[2021-05-09 02:51] LABS: Basophils # (A) 0.1 k/uL (0-0.2); Basophils % (A) 0 %; Eosinophils % (A) 0 %; HCT 36.8 % (34.0-46.0); HGB 10.5 gm/dL (11.4-16.0); Hypochromasia Marked; Lymphocytes # (A) 1.8 k/uL (1.0-4.8); Lymphocytes % (A) 5 %; MCHC 28.5 g/dL (31.0-37.0); MCV 87.7 fL (80.0-100.0); Mean Platelet Volume 7.7; Monocytes % (A) 3 %; Neutrophils # (A) 30.4 k/uL (1.3-7.7); Neutrophils % (A) 91 %; Platelet Count 793 k/uL (150-450); RDW 14.3 % (11.5-15.5); WBC 33.5 k/uL (3.8-10.6)
[2021-05-09 03:05] LABS: ALT 9 U/L (4-34); AST 14 U/L (14-36); African American GFR (CKD) >90 (>60 ml/min/1.73 sqM); Albumin 3.4 g/dL (3.5-5.0); Alkaline Phosphatase 300 U/L (38-126); Anion Gap 30 mmol/L; Blood Urea Nitrogen 5 mg/dL (7-17); Calcium 9.6 mg/dL (8.4-10.2); Carbon Dioxide 10 mmol/L (22-30); Chloride 97 mmol/L (98-107); Glucose 460 mg/dL (74-99); LDH 747 U/L (313-618); Magnesium 1.9 mg/dL (1.6-2.3); Non-African American GFR(CKD) >90 (>60 ml/min/1.73 sqM); Phosphorus 5.3 mg/dL (2.5-4.5); Potassium 3.8 mmol/L (3.5-5.1); Sodium 137 mmol/L (137-145); Total Bilirubin 0.6 mg/dL (0.2-1.3); Total Protein 7.7 g/dL (6.3-8.2)
[2021-05-09 03:07] LABS: Partial Thromboplastin Time 23.4 sec (22.0-30.0); Prothrombin Time 11.1 sec (9.0-12.0)
[2021-05-09] MEDS ORDERED: PROCHLORPERAZINE INJ 10 MG/2 ML VIAL IVP STA (03:21)
[2021-05-09] MEDS ORDERED: PANTOPRAZOLE 40 MG/10 ML VIAL IVP STA (03:21)
[2021-05-09 03:28] LABS: Lactic Acid, Venous 2.5 mmol/L (0.7-2.0)
[2021-05-09 03:31] LABS: C Reactive Protein 36.7 mg/dL (<1.0)
[2021-05-09] MEDS ORDERED: HYDROmorphone 1 MG/ML 1 ML SYRINGE IVP STA (03:52)
--- NOTE | 2021-05-09 03:58 | XR ---
EXAMINATION TYPE: XR chest 1V portable DATE OF EXAM: 05/09/2021 COMPARISON: 11/13/2020 HISTORY: Cough TECHNIQUE: Single view FINDINGS: There is some airspace consolidation left lower lobe. Right lung is clear. No heart failure seen. Heart size is normal. IMPRESSION: There is left lower lobe pneumonia which is new compared to old exam.
[2021-05-09] MEDS ORDERED: AZITHROMYCIN 500 MG in SODIUM CHLORIDE 0.9% 250 ML IVPB STA (04:00)
[2021-05-09 05:05] LABS: Glucose,Whole Blood 381 mg/dL (75-99)
[2021-05-09 05:08] LABS: VBG PH 7.1 (7.31-7.41)
[2021-05-09] MEDS ORDERED: NALOXONE 0.4 MG/ML 1 ML VIAL IV PRN (05:34)
[2021-05-09] MEDS ORDERED: INSULIN REGULAR BOLUS (FROM DRIP BAG) IV ONE (05:34)
[2021-05-09] MEDS: SODIUM CHLORIDE 0.9% 1,000 ML IV SCH ×2 (06:20→14:26)
[2021-05-09] MEDS: INSULIN REGULAR 100 UNIT in SODIUM CHLORIDE 0.9% 100 ML IV SCH (06:22)
[2021-05-09 06:24] LABS: Glucose,Whole Blood 387 mg/dL (75-99)
[2021-05-09 06:49] LABS: Appearance,Urine Cloudy (Clear); Bacteria,Urine Occasional /hpf; Bilirubin,Urine Negative (Negative); Blood,Urine Small (Negative); Color,Urine Light Yellow; Glucose,Urine (UA) 4+ (Negative); Leukocyte Esterase,Urine Large (Negative); Mucus,Urine Rare /hpf; Nitrite,Urine Negative (Negative); PH, Urine 5.5 (5.0-8.0); Protein,Urine 1+ (Negative); RBC,Urine 8 /hpf (0-5); Squamous Epithelial Cell,Urine 7 /hpf (0-4); Urobilinogen,Urine <2.0 mg/dL (<2.0); WBC,Urine 24 /hpf (0-5)
[2021-05-09 06:52] LABS: Ketones,Urine 4+ (Negative)
[2021-05-09 07:06] LABS: African American GFR (CKD) >90 (>60 ml/min/1.73 sqM); Anion Gap 23 mmol/L; Blood Urea Nitrogen 5 mg/dL (7-17); Chloride 111 mmol/L (98-107); Glucose 367 mg/dL (74-99); Non-African American GFR(CKD) >90 (>60 ml/min/1.73 sqM); Phosphorus 3.7 mg/dL (2.5-4.5); Potassium 3.2 mmol/L (3.5-5.1); Sodium 141 mmol/L (137-145)
[2021-05-09 07:30] LABS: Carbon Dioxide 7 mmol/L (22-30)
[2021-05-09 07:47] LABS: Glucose,Whole Blood 339 mg/dL (75-99)
[2021-05-09 09:12] LABS: Glucose,Whole Blood 267 mg/dL (75-99)
[2021-05-09] MEDS ORDERED: D5-0.45% NACL WITH KCL 20MEQ/L 1,000 ML IV SCH (09:30)
[2021-05-09 10:55] LABS: Glucose,Whole Blood 268 mg/dL (75-99)
[2021-05-09 11:24] LABS: African American GFR (CKD) >90 (>60 ml/min/1.73 sqM); Anion Gap 14 mmol/L; Blood Urea Nitrogen 5 mg/dL (7-17); Carbon Dioxide 14 mmol/L (22-30); Chloride 114 mmol/L (98-107); Glucose 250 mg/dL (74-99); Non-African American GFR(CKD) >90 (>60 ml/min/1.73 sqM); Phosphorus 2.1 mg/dL (2.5-4.5); Potassium 3.3 mmol/L (3.5-5.1); Sodium 142 mmol/L (137-145)
[2021-05-09 12:06] LABS: Glucose,Whole Blood 283 mg/dL (75-99)
[2021-05-09 12:52] LABS: Glucose,Whole Blood 248 mg/dL (75-99)
[2021-05-09 13:06] LABS: Glucose,Whole Blood 381 mg/dL (75-99)
[2021-05-09 14:03] LABS: Basophils % (A) 0 %; Eosinophils % (A) 0 %; HCT 25.9 % (34.0-46.0); Hypochromasia Marked; Lymphocytes # (A) 0.7 k/uL (1.0-4.8); Lymphocytes % (A) 3 %; MCH 24.1 pg (25.0-35.0); MCHC 28.7 g/dL (31.0-37.0); MCV 84.2 fL (80.0-100.0); Mean Platelet Volume 7.6; Monocytes # (A) 0.8 k/uL (0-1.0); Monocytes % (A) 3 %; Neutrophils # (A) 22.6 k/uL (1.3-7.7); Neutrophils % (A) 93 %; Platelet Count 603 k/uL (150-450); RBC 3.08 m/uL (3.80-5.40); RDW 14.7 % (11.5-15.5); WBC 24.3 k/uL (3.8-10.6)
[2021-05-09 14:04] LABS: Glucose,Whole Blood 234 mg/dL (75-99)
[2021-05-09 14:06] LABS: HGB 7.4 gm/dL (11.4-16.0)
[2021-05-09 15:17] LABS: Glucose,Whole Blood 204 mg/dL (75-99)
--- NOTE | 2021-05-09 16:06 | XR ---
EXAMINATION TYPE: XR chest 1V DATE OF EXAM: 05/09/2021 COMPARISON: NONE HISTORY: Cough. Short of breath. TECHNIQUE: Single view FINDINGS: Heart is normal. There is significant opacification left hemithorax. The right lung is fair ly clear. There is a small infiltrate medial right lower lobe. There is no heart failure. IMPRESSION: There is extensive air space pneumonia in the left lung which has progressed compared to exam 12 hours ago. There is a new small right lower lobe pneumonia.
[2021-05-09 16:34] LABS: Glucose,Whole Blood 151 mg/dL (75-99)
[2021-05-09] MEDS: DEXTROSE 5%-0.45% NACL 1,000 ML IV SCH (16:39)
[2021-05-09 17:15] LABS: Glucose,Whole Blood 131 mg/dL (75-99)
[2021-05-09] MEDS: HYDROmorphone 1 MG/ML 1 ML SYRINGE IVP PRN (17:24)
--- NOTE | 2021-05-09 17:28 | P.HPIM ---
History of Present Illness H&P Date: 05/09/21 Chief Complaint: Nausea and vomiting Patient is a 36-year-old female with known history of diabetes type 1, chronic back pain, anxiety/depression physiology complains of nausea vomiting and generalized weakness. Patient felt very weak and dizzy and had near syncope. Patient is also complaining of body aches and pains. Denied any cough or sputum production. Patient was found to have elevated blood sugars in 400s lactic acid 2.5 and a stone positive. Chest x-ray showed there is left lower lobe pneumonia which is new compared to old exam. M.D. 747 CRP 36.7 Diabetes. 3.4 hemoglobin 10.5 and platelets 793 Patient is tachycardic and tachypneic on admission pulse ox 90% on 6 L oxygen via nasal cannula. Urinalysis showed cloudy with 4+ ketones and large leukocyte esterase and elevated WBCs Review of Systems Constitutional: Patient denies any fever or chills . Patient does have generalized weakness and tiredness.. Abdomen: Nausea vomiting and diarrhea and no abdominal pain.. Cardiovascular: Patient denies any chest pain or short of breath no palpitations. No leg swelling. Respiratory: patient denied any cough is from production. He does have shortness of breath Patient is a poor historian complete review of systems could not be obtained at this time. Past Medical History Past Medical History: Diabetes Mellitus, Syncope Additional Past Medical History / Comment(s): IDDM type I, neuropathy bilateral legs/feet, chronic low back pain, bilateral leg pain, migraines, hx chronic constipation. Hx HPV. Having diarrhea with any intake of food, chronic History of Any Multi-Drug Resistant Organisms: MRSA Date of last positivie culture/infection: 02/15/19 MDRO Source:: Head Past Surgical History: Tubal Ligation, Uterine Ablation Additional Past Surgical History / Comment(s): 12/22/17 colonoscopy, LAPAROSCOPIC REMOVAL Rt TUBE AND OVARY d/t endometriosis, D&C, HYSTEROSCOPY, NOVASURE ABLATION 2015. 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 Past Psychological History: Anxiety, Depression Smoking Status: Never smoker Past Alcohol Use History: None Reported Past Drug Use History: None Reported - Past Family History Mother Family Medical History: No Reported History, Rheumatoid Arthritis (RA) Additional Family Medical History / Comment(s): Mother is 63 yrs old. Father Family Medical History: Cancer, Diabetes Mellitus, Deep Vein Thrombosis (DVT), Hypertension Additional Family Medical History / Comment(s): THROAT CA- of but pt does not know at what age. Medications and Allergies Home Medications Medication Instructions Recorded Confirmed Type Escitalopram [Lexapro] 20 mg PO DAILY 04/26/20 05/09/21 History Omeprazole 20 mg PO DAILY 11/14/20 05/09/21 History ALPRAZolam [Xanax] 0.25 mg PO DAILY PRN 05/09/21 05/09/21 History Amitriptyline HCl [Elavil] 10 mg PO HS 05/09/21 05/09/21 History Cholecalciferol [Vitamin D3 (25 50 mcg PO DAILY 05/09/21 05/09/21 History Mcg = 1000 Iu)] INSULIN LISPRO (humaLOG) [humaLOG] 40 units SQ AC-TID 05/09/21 05/09/21 History INSULIN LISPRO (humaLOG) [humaLOG] See Protocol SQ AC-TID 05/09/21 05/09/21 History Insulin Detemir [Levemir Flextouch 35 units SQ HS 05/09/21 05/09/21 History Pen] Montelukast [Singulair] 10 mg PO HS 05/09/21 05/09/21 History Rizatriptan Odt [Maxalt [employer]] 10 mg PO DAILY PRN 05/09/21 05/09/21 History Zinc 50 mg PO DAILY 05/09/21 05/09/21 History lisinopriL [Zestril] 2.5 mg PO DAILY 05/09/21 05/09/21 History tiZANidine [Zanaflex] 4 mg PO BID PRN 05/09/21 05/09/21 History Allergies Allergy/AdvReac Type Severity Reaction Status Date / Time No Known Allergies Allergy Verified 05/09/21 08:42 Physical Exam Vitals: Vital Signs Temp Pulse Resp BP Pulse Ox 05/09/21 12:00 124 H 22 117/65 91 L 05/09/21 11:11 129 H 20 110/65 90 L 05/09/21 09:33 133 H 28 H 106/66 85 L 05/09/21 07:40 98 F 112 H 18 100/61 90 L 05/09/21 05:31 110 H 16 101/64 92 L 05/09/21 04:30 109 H 18 98/49 98 05/09/21 02:12 97.5 F L 122 H 20 122/77 98 Intake and Output 05/08/21 05/09/21 05/09/21 22:59 06:59 14:59 Intake Total 24.536 Balance 24.536 Intake: Intake, IV Titration 24.536 Amount Insulin Regular 100 unit 24.536 In Sodium Chloride 0.9% 100 ml @ 0.1 UNITS/KG/HR 4.123 mls/hr IV .Q24H [facility] [place] Rx#:[id number] Other: Weight 40.823 kg PHYSICAL EXAMINATION: Patient is lying in the bed comfortably, mild distress, awake alert and oriented.. HEENT: Normocephalic. Neck is supple. Pupils reactive. Nostrils clear. Oral cavity is moist. Neck reveals no JVD, carotid bruits, or thyromegaly. CHEST EXAMINATION: Trachea is central. Symmetrical expansion. Bilateral diminished sounds and coarse breath sounds.. CARDIAC: Normal S1, S2 with no gallops. No murmurs ABDOMEN: Soft. Bowel sounds normal. No organomegaly. No abdominal bruits. Extremities: reveal no edema. No clubbing or cyanosis Neurologically awake, alert, oriented x3 with well-coordinated movements. Lethargic and weak. No gross focal deficits noted Skin: No rash or skin lesions. Psychiatric: Coperative. Could not be assessed completely Musculoskeletal: No joint swelling or deformity. Results CBC & Chem 7: 05/09/21 12:57 05/09/21 10:32 Labs: Abnormal Lab Results - Last 24 Hours (Table) 05/09/21 05/09/21 05/09/21 Range/Units 02:14 02:39 02:39 WBC (3.8-10.6) k/uL Hgb (11.4-16.0) gm/dL MCHC (31.0-37.0) g/dL Plt Count (150-450) k/uL Neutrophils # (1.3-7.7) k/uL VBG pH (7.31-7.41) VBG pCO2 (37-51) mmHg VBG HCO3 (24-28) mmol/L Potassium (3.5-5.1) mmol/L Chloride 97 L (98-107) mmol/L Carbon Dioxide 10 L (22-30) mmol/L BUN 5 L (7-17) mg/dL Creatinine 0.46 L (0.52-1.04) mg/dL Glucose 460 H (74-99) mg/dL POC Glucose (mg/dL) 437 H (75-99) mg/dL Plasma Lactic Acid Silvino 2.5 H* (0.7-2.0) mmol/L Phosphorus 5.3 H (2.5-4.5) mg/dL Alkaline Phosphatase 300 H (38-126) U/L Lactate Dehydrogenase 747 H (313-618) U/L C-Reactive Protein 36.7 H (<1.0) mg/dL Albumin 3.4 L (3.5-5.0) g/dL Urine Appearance (Clear) Urine Protein (Negative) Urine Glucose (UA) (Negative) Urine Ketones (Negative) Urine Blood (Negative) Ur Leukocyte Esterase (Negative) Urine RBC (0-5) /hpf Urine WBC (0-5) /hpf Ur Squamous Epith Cells (0-4) /hpf Urine Bacteria (None) /hpf Urine Mucus (None) /hpf 05/09/21 05/09/21 05/09/21 Range/Units 02:39 03:28 04:55 WBC 33.5 H (3.8-10.6) k/uL Hgb 10.5 L (11.4-16.0) gm/dL MCHC 28.5 L (31.0-37.0) g/dL Plt Count 793 H (150-450) k/uL Neutrophils # 30.4 H (1.3-7.7) k/uL VBG pH 7.10 L* (7.31-7.41) VBG pCO2 34 L (37-51) mmHg VBG HCO3 10 L (24-28) mmol/L Potassium (3.5-5.1) mmol/L Chloride (98-107) mmol/L Carbon Dioxide (22-30) mmol/L BUN (7-17) mg/dL Creatinine (0.52-1.04) mg/dL Glucose (74-99) mg/dL POC Glucose (mg/dL) 381 H (75-99) mg/dL Plasma Lactic Acid Silvino (0.7-2.0) mmol/L Phosphorus (2.5-4.5) mg/dL Alkaline Phosphatase (38-126) U/L Lactate Dehydrogenase (313-618) U/L C-Reactive Protein (<1.0) mg/dL Albumin (3.5-5.0) g/dL Urine Appearance (Clear) Urine Protein (Negative) Urine Glucose (UA) (Negative) Urine Ketones (Negative) Urine Blood (Negative) Ur Leukocyte Esterase (Negative) Urine RBC (0-5) /hpf Urine WBC (0-5) /hpf Ur Squamous Epith Cells (0-4) /hpf Urine Bacteria (None) /hpf Urine Mucus (None) /hpf 05/09/21 05/09/21 05/09/21 Range/Units 06:24 06:37 06:38 WBC (3.8-10.6) k/uL Hgb (11.4-16.0) gm/dL MCHC (31.0-37.0) g/dL Plt Count (150-450) k/uL Neutrophils # (1.3-7.7) k/uL VBG pH (7.31-7.41) VBG pCO2 (37-51) mmHg VBG HCO3 (24-28) mmol/L Potassium 3.2 L (3.5-5.1) mmol/L Chloride 111 H (98-107) mmol/L Carbon Dioxide 7 L* (22-30) mmol/L BUN 5 L (7-17) mg/dL Creatinine 0.44 L (0.52-1.04) mg/dL Glucose 367 H (74-99) mg/dL POC Glucose (mg/dL) 387 H (75-99) mg/dL Plasma Lactic Acid Silvino (0.7-2.0) mmol/L Phosphorus (2.5-4.5) mg/dL Alkaline Phosphatase (38-126) U/L Lactate Dehydrogenase (313-618) U/L C-Reactive Protein (<1.0) mg/dL Albumin (3.5-5.0) g/dL Urine Appearance Cloudy H (Clear) Urine Protein 1+ H (Negative) Urine Glucose (UA) 4+ H (Negative) Urine Ketones 4+ H (Negative) Urine Blood Small H (Negative) Ur Leukocyte Esterase Large H (Negative) Urine RBC 8 H (0-5) /hpf Urine WBC 24 H (0-5) /hpf Ur Squamous Epith Cells 7 H (0-4) /hpf Urine Bacteria Occasional H (None) /hpf Urine Mucus Rare H (None) /hpf 05/09/21 05/09/21 05/09/21 Range/Units 07:38 09:11 10:32 WBC (3.8-10.6) k/uL Hgb (11.4-16.0) gm/dL MCHC (31.0-37.0) g/dL Plt Count (150-450) k/uL Neutrophils # (1.3-7.7) k/uL VBG pH (7.31-7.41) VBG pCO2 (37-51) mmHg VBG HCO3 (24-28) mmol/L Potassium 3.3 L (3.5-5.1) mmol/L Chloride 114 H (98-107) mmol/L Carbon Dioxide 14 L (22-30) mmol/L BUN 5 L (7-17) mg/dL Creatinine 0.37 L (0.52-1.04) mg/dL Glucose 250 H (74-99) mg/dL POC Glucose (mg/dL) 339 H 267 H (75-99) mg/dL Plasma Lactic Acid Silvino (0.7-2.0) mmol/L Phosphorus 2.1 L (2.5-4.5) mg/dL Alkaline Phosphatase (38-126) U/L Lactate Dehydrogenase (313-618) U/L C-Reactive Protein (<1.0) mg/dL Albumin (3.5-5.0) g/dL Urine Appearance (Clear) Urine Protein (Negative) Urine Glucose (UA) (Negative) Urine Ketones (Negative) Urine Blood (Negative) Ur Leukocyte Esterase (Negative) Urine RBC (0-5) /hpf Urine WBC (0-5) /hpf Ur Squamous Epith Cells (0-4) /hpf Urine Bacteria (None) /hpf Urine Mucus (None) /hpf 05/09/21 05/09/21 Range/Units 10:54 12:04 WBC (3.8-10.6) k/uL Hgb (11.4-16.0) gm/dL MCHC (31.0-37.0) g/dL Plt Count (150-450) k/uL Neutrophils # (1.3-7.7) k/uL VBG pH (7.31-7.41) VBG pCO2 (37-51) mmHg VBG HCO3 (24-28) mmol/L Potassium (3.5-5.1) mmol/L Chloride (98-107) mmol/L Carbon Dioxide (22-30) mmol/L BUN (7-17) mg/dL Creatinine (0.52-1.04) mg/dL Glucose (74-99) mg/dL POC Glucose (mg/dL) 268 H 283 H (75-99) mg/dL Plasma Lactic Acid Silvino (0.7-2.0) mmol/L Phosphorus (2.5-4.5) mg/dL Alkaline Phosphatase (38-126) U/L Lactate Dehydrogenase (313-618) U/L C-Reactive Protein (<1.0) mg/dL Albumin (3.5-5.0) g/dL Urine Appearance (Clear) Urine Protein (Negative) Urine Glucose (UA) (Negative) Urine Ketones (Negative) Urine Blood (Negative) Ur Leukocyte Esterase (Negative) Urine RBC (0-5) /hpf Urine WBC (0-5) /hpf Ur Squamous Epith Cells (0-4) /hpf Urine Bacteria (None) /hpf Urine Mucus (None) /hpf Thrombosis Risk Factor Assmnt - DVT/VTE Prophylaxis DVT/VTE Prophylaxis: Pharmacologic Prophylaxis ordered Assessment and Plan Assessment: Acute diabetic ketoacidosis Bilateral multifocal pneumonia Acute hypoxic respiratory failure currently requiring 6 L oxygen via nasal cannula Acute urinary tract infection Sepsis secondary to above. Patient is tachycardic tachypneic and WBC 33 on admission chronic back pain Bilateral lower extremity diabetic peripheral neuropathy Anxiety/depression DVT prophylaxis with heparin subcu Plan: Patient will be continued on IV hydration and insulin drip as per DKA protocol. Replace electrolytes. Patient will be continued on antibiotics in the form of ceftriaxone and azithromycin. Due to worsening respiratory failure and requiring 6 L oxygen via nasal cannula, repeat chest x-ray was ordered. Follow-up pro-calcitonin level. Continue with IV fluids at 75 mL per hour. Symptomatic management for nausea and vomiting. Follow-up urine culture and blood cultures. Pulmonary will be consulted. Prognosis is guarded this time. Time with Patient: Greater than 30
[2021-05-09] MEDS: LORazepam 2 MG/ML INJ IV PRN (17:34)
[2021-05-09 18:35] LABS: Glucose,Whole Blood 113 mg/dL (75-99)
--- NOTE | 2021-05-09 18:36 | P.CNPUL ---
History of Present Illness Consult date: 05/09/21 Requesting physician: Peter Hamilton Reason for consult: dyspnea, hypoxemia, abnormal CXR/CT Chief complaint: Nausea, vomiting, weakness History of present illness: This is a very pleasant 36-year-old female patient. She is very frail and cachectic. She has a history of diabetes mellitus, diabetic neuropathy, diabetic retinopathy and had been on insulin pump, depression. She recently had COVID-19 infection 2 weeks ago and was hospitalized at [facility]. She presented here to our ER today with nausea, vomiting, dizziness and lightheadedness with near-syncope. His x-ray reveals extensive airspace pneumonia in the left lung which is progressed compared to an exam 12 hours earlier. There is a new small right lower lobe pneumonia. We are consulted for the same. She is seen today in the emergency room. She is currently sitting up on the stretcher. Awake and alert. She is requiring 6 L high flow nasal cannula to maintain O2 saturation the no 90s. She is dyspneic with exertion. Dyspneic with conversation. She is quite weak. White count 24.3. Hemoglobin 7.4. Platelets 603. Lymphocytes 0.7. Sodium 142. Potassium 3.3. Initial bicarb 10 done 7 currently 14. Initial anion gap 30. Currently 14. Acetone positive. Roberts virus by PCR not detected. Urinalysis with 4+ glucose, 4+ ketones. LDH 747. C-reactive protein 36.7. Creatinine 0.37. Most recent blood glucose 131. She is on a insulin drip at 5 units per hour. She has received 4.5 L of fluid resuscitation. Currently on D5 and half-normal saline with 20 of KCl at 150 MLS per hour. She's been treated with ceftriaxone and azithromycin. Heparin for DVT prophylaxis. Review of Systems REVIEW OF SYSTEMS: CONSTITUTIONAL: As a generalized weakness, weight loss, fatigue EYES: Denies change in vision. EARS, NOSE, MOUTH, THROAT: Denies headaches, denies sore throat. CARDIOVASCULAR: Denies chest pain, palpitations or syncopal episodes. RESPIRATORY: Positive for shortness of breath, cough, congestion no hemoptysis. GASTROINTESTINAL: Positive for nausea, vomiting GENITOURINARY: Denies hematuria, denies infections. MUSKULOSKELETAL: Denies pain, denies swelling. INTEGUMENTARY: Denies rash, denies eczema. NEUROLOGICAL: Denies recent memory loss, no recent seizure activity. PSYCHIATRIC: Denies anxiety, denies depression. HEMATOLOGIC/LYMPHATIC: Denies anemia, denies enlarged lymph nodes. Past Medical History Past Medical History: Diabetes Mellitus, Syncope Additional Past Medical History / Comment(s): IDDM type I, neuropathy bilateral legs/feet, chronic low back pain, bilateral leg pain, migraines, hx chronic constipation. Hx HPV. Having diarrhea with any intake of food, chronic History of Any Multi-Drug Resistant Organisms: MRSA Date of last positivie culture/infection: 02/15/19 MDRO Source:: Head Past Surgical History: Tubal Ligation, Uterine Ablation Additional Past Surgical History / Comment(s): 12/22/17 colonoscopy, LAPAROSCOPIC REMOVAL Rt TUBE AND OVARY d/t endometriosis, D&C, HYSTEROSCOPY, NOVASURE ABLATION 2015. 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 Past Psychological History: Anxiety, Depression Smoking Status: Never smoker Past Alcohol Use History: None Reported Past Drug Use History: None Reported - Past Family History Mother Family Medical History: No Reported History, Rheumatoid Arthritis (RA) Additional Family Medical History / Comment(s): Mother is 63 yrs old. Father Family Medical History: Cancer, Diabetes Mellitus, Deep Vein Thrombosis (DVT), Hypertension Additional Family Medical History / Comment(s): THROAT CA- of but pt does not know at what age. Medications and Allergies Home Medications Medication Instructions Recorded Confirmed Type Escitalopram [Lexapro] 20 mg PO DAILY 04/26/20 05/09/21 History Omeprazole 20 mg PO DAILY 11/14/20 05/09/21 History ALPRAZolam [Xanax] 0.25 mg PO DAILY PRN 05/09/21 05/09/21 History Amitriptyline HCl [Elavil] 10 mg PO HS 05/09/21 05/09/21 History Cholecalciferol [Vitamin D3 (25 50 mcg PO DAILY 05/09/21 05/09/21 History Mcg = 1000 Iu)] INSULIN LISPRO (humaLOG) [humaLOG] 40 units SQ AC-TID 05/09/21 05/09/21 History INSULIN LISPRO (humaLOG) [humaLOG] See Protocol SQ AC-TID 05/09/21 05/09/21 History Insulin Detemir [Levemir Flextouch 35 units SQ HS 05/09/21 05/09/21 History Pen] Montelukast [Singulair] 10 mg PO HS 05/09/21 05/09/21 History Rizatriptan Odt [Maxalt Director Of Psychology] 10 mg PO DAILY PRN 05/09/21 05/09/21 History Zinc 50 mg PO DAILY 05/09/21 05/09/21 History lisinopriL [Zestril] 2.5 mg PO DAILY 05/09/21 05/09/21 History tiZANidine [Zanaflex] 4 mg PO BID PRN 05/09/21 05/09/21 History Allergies Allergy/AdvReac Type Severity Reaction Status Date / Time No Known Allergies Allergy Verified 05/09/21 08:42 Physical Exam Vitals: Vital Signs Temp Pulse Resp BP Pulse Ox 05/09/21 17:59 122 H 18 89 L 05/09/21 17:27 124 H 18 103/55 84 L 05/09/21 15:00 122 H 16 91 L 05/09/21 14:00 124 H 22 96/48 89 L 05/09/21 12:00 124 H 22 117/65 91 L 05/09/21 11:11 129 H 20 110/65 90 L 05/09/21 09:33 133 H 28 H 106/66 85 L 05/09/21 07:40 98 F 112 H 18 100/61 90 L 05/09/21 05:31 110 H 16 101/64 92 L 05/09/21 04:30 109 H 18 98/49 98 05/09/21 02:12 97.5 F L 122 H 20 122/77 98 Intake and Output 05/09/21 05/09/21 05/09/21 06:59 14:59 22:59 Intake Total 30.965 29.798 Balance 30.965 29.798 Intake: Intake, IV Titration 30.965 29.798 Amount Insulin Regular 100 unit 30.965 29.798 In Sodium Chloride 0.9% 100 ml @ 0.1 UNITS/KG/HR 4.123 mls/hr IV .Q24H COUNT INCLUDES THE [facility] Rx#:[id number] Other: Weight 40.823 kg GENERAL EXAM: Alert, pleasant frail, cachectic 36-year-old female, on 6 L nasal cannula, fairly comfortable in no apparent distress. HEAD: Normocephalic. EYES: Normal reaction of pupils, equal size. NOSE: Clear with pink turbinates. THROAT: No erythema or exudates. NECK: No masses, no JVD. CHEST: No chest wall deformity. LUNGS: Equal air entry with crackles in the bilateral bases left greater than right, diminished in the left lung base CVS: S1 and S2 normal with no audible murmur, regular rhythm. ABDOMEN: No hepatosplenomegaly, normal bowel sounds, no guarding or rigidity. SPINE: No scoliosis or deformity SKIN: No rashes CENTRAL NERVOUS SYSTEM: No focal deficits, tone is normal in all 4 extremities. EXTREMITIES: There is no peripheral edema. No clubbing, no cyanosis. Peripheral pulses are intact. Results - Laboratory Findings CBC and BMP: 05/09/21 12:57 05/09/21 10:32 PT/INR, D-dimer PT 11.1 sec (9.0-12.0) 05/09/21 02:39 INR 1.0 (<1.2) 05/09/21 02:39 Abnormal lab findings: Abnormal Labs 05/09/21 05/09/21 05/09/21 02:14 02:39 02:39 WBC RBC Hgb Hct MCH MCHC Plt Count Neutrophils # Lymphocytes # VBG pH VBG pCO2 VBG HCO3 Potassium Chloride 97 L Carbon Dioxide 10 L BUN 5 L Creatinine 0.46 L Glucose 460 H POC Glucose (mg/dL) 437 H Plasma Lactic Acid Silvino 2.5 H* Phosphorus 5.3 H Alkaline Phosphatase 300 H Lactate Dehydrogenase 747 H C-Reactive Protein 36.7 H Albumin 3.4 L Urine Appearance Urine Protein Urine Glucose (UA) Urine Ketones Urine Blood Ur Leukocyte Esterase Urine RBC Urine WBC Ur Squamous Epith Cells Urine Bacteria Urine Mucus 05/09/21 05/09/21 05/09/21 02:39 03:28 04:55 WBC 33.5 H RBC Hgb 10.5 L Hct MCH MCHC 28.5 L Plt Count 793 H Neutrophils # 30.4 H Lymphocytes # VBG pH 7.10 L* VBG pCO2 34 L VBG HCO3 10 L Potassium Chloride Carbon Dioxide BUN Creatinine Glucose POC Glucose (mg/dL) 381 H Plasma Lactic Acid Silvino Phosphorus Alkaline Phosphatase Lactate Dehydrogenase C-Reactive Protein Albumin Urine Appearance Urine Protein Urine Glucose (UA) Urine Ketones Urine Blood Ur Leukocyte Esterase Urine RBC Urine WBC Ur Squamous Epith Cells Urine Bacteria Urine Mucus 05/09/21 05/09/21 05/09/21 06:24 06:37 06:38 WBC RBC Hgb Hct MCH MCHC Plt Count Neutrophils # Lymphocytes # VBG pH VBG pCO2 VBG HCO3 Potassium 3.2 L Chloride 111 H Carbon Dioxide 7 L* BUN 5 L Creatinine 0.44 L Glucose 367 H POC Glucose (mg/dL) 387 H Plasma Lactic Acid Islvino Phosphorus Alkaline Phosphatase Lactate Dehydrogenase C-Reactive Protein Albumin Urine Appearance Cloudy H Urine Protein 1+ H Urine Glucose (UA) 4+ H Urine Ketones 4+ H Urine Blood Small H Ur Leukocyte Esterase Large H Urine RBC 8 H Urine WBC 24 H Ur Squamous Epith Cells 7 H Urine Bacteria Occasional H Urine Mucus Rare H 05/09/21 05/09/21 05/09/21 07:38 09:11 10:32 WBC RBC Hgb Hct MCH MCHC Plt Count Neutrophils # Lymphocytes # VBG pH VBG pCO2 VBG HCO3 Potassium 3.3 L Chloride 114 H Carbon Dioxide 14 L BUN 5 L Creatinine 0.37 L Glucose 250 H POC Glucose (mg/dL) 339 H 267 H Plasma Lactic Acid Silvino Phosphorus 2.1 L Alkaline Phosphatase Lactate Dehydrogenase C-Reactive Protein Albumin Urine Appearance Urine Protein Urine Glucose (UA) Urine Ketones Urine Blood Ur Leukocyte Esterase Urine RBC Urine WBC Ur Squamous Epith Cells Urine Bacteria Urine Mucus 05/09/21 05/09/21 05/09/21 10:54 12:04 12:40 WBC RBC Hgb Hct MCH MCHC Plt Count Neutrophils # Lymphocytes # VBG pH VBG pCO2 VBG HCO3 Potassium Chloride Carbon Dioxide BUN Creatinine Glucose POC Glucose (mg/dL) 268 H 283 H 248 H Plasma Lactic Acid Silvino Phosphorus Alkaline Phosphatase Lactate Dehydrogenase C-Reactive Protein Albumin Urine Appearance Urine Protein Urine Glucose (UA) Urine Ketones Urine Blood Ur Leukocyte Esterase Urine RBC Urine WBC Ur Squamous Epith Cells Urine Bacteria Urine Mucus 05/09/21 05/09/21 05/09/21 12:57 13:05 14:01 WBC 24.3 H RBC 3.08 L Hgb 7.4 L D Hct 25.9 L MCH 24.1 L MCHC 28.7 L Plt Count 603 H Neutrophils # 22.6 H Lymphocytes # 0.7 L VBG pH VBG pCO2 VBG HCO3 Potassium Chloride Carbon Dioxide BUN Creatinine Glucose POC Glucose (mg/dL) 381 H 234 H Plasma Lactic Acid Silvino Phosphorus Alkaline Phosphatase Lactate Dehydrogenase C-Reactive Protein Albumin Urine Appearance Urine Protein Urine Glucose (UA) Urine Ketones Urine Blood Ur Leukocyte Esterase Urine RBC Urine WBC Ur Squamous Epith Cells Urine Bacteria Urine Mucus 05/09/21 05/09/21 05/09/21 15:05 16:32 17:14 WBC RBC Hgb Hct MCH MCHC Plt Count Neutrophils # Lymphocytes # VBG pH VBG pCO2 VBG HCO3 Potassium Chloride Carbon Dioxide BUN Creatinine Glucose POC Glucose (mg/dL) 204 H 151 H 131 H Plasma Lactic Acid Silvino Phosphorus Alkaline Phosphatase Lactate Dehydrogenase C-Reactive Protein Albumin Urine Appearance Urine Protein Urine Glucose (UA) Urine Ketones Urine Blood Ur Leukocyte Esterase Urine RBC Urine WBC Ur Squamous Epith Cells Urine Bacteria Urine Mucus - Diagnostic Findings Chest x-ray: image reviewed Assessment and Plan Assessment: 1 Acute diabetic ketoacidosis secondary to nausea, vomiting and dehydration 2 Anion gap metabolic acidosis secondary to above 3 Acute hypoxemic respiratory failure secondary to bilateral infiltrates left greater than right with significant volume loss in the left lung 4 Leukocytosis secondary to above 5 Diabetes mellitus 6 Diabetic retinopathy 7 Diabetic neuropathy 8 Recent COVID-19 infection 2 weeks ago and hospitalized at [facility] 9 History of migraine 10 History of anxiety/depression Plan: The patient was seen and evaluated Chest x-ray and labs reviewed Obtain a computed tomography scan of the chest May require a left-sided thoracentesis Continue ceftriaxone and azithromycin for now Obtain a pro-calcitonin Continue DKA protocol Continue to follow labs Titrate the FiO2 as tolerated We will continue to follow and make further recommendations based on her clinical status I, the cosigning physician, performed a history & physical examination of the patient. Lungs sounds with crackles in the posterior bases left greater than right, diminished on the left lung base. Maintaining good O2 saturations in the 90s on liters per minute per nasal cannula. I discussed the assessment and plan of care with my nurse practitioner, Daniela Foreman. I attest to the above dictation as dictated by her. Time with Patient: Greater than 30
--- NOTE | 2021-05-09 18:41 | CT ---
EXAMINATION TYPE: CT chest wo con DATE OF EXAM: 05/09/2021 COMPARISON: None HISTORY: LLL pneumonia and effusion. Hx Covid [address] DLP: 173.8 mGycm Automated exposure control for dose reduction was used. Images obtained from the thoracic inlet to the diaphragm with no contrast. There is a moderate left pleural effusion. There is extensive airspace consolidation in the left lung . There is a mild airspace consolidation medial right lower lobe. Heart size is normal. There is no p ericardial effusion. There is no mediastinal adenopathy. The thoracic spine is intact. There is no compression fracture. Sternum is intact. Upper abdominal so ft tissues are intact. IMPRESSION: Extensive pulmonary infiltrates likely related to bronchopneumonia. Mild left pleural effusion.
[2021-05-09 19:33] LABS: Glucose,Whole Blood 108 mg/dL (75-99)
[2021-05-09 20:33] LABS: Glucose,Whole Blood 116 mg/dL (75-99)
[2021-05-09 22:01] LABS: Glucose,Whole Blood 177 mg/dL (75-99)
[2021-05-09] MEDS: LEVOFLOXACIN 500MG-D5W PMX 500 MG in DEXTROSE/WATER 1 100ML.BAG IVPB SCH (22:14)
[2021-05-10] MEDS: PIPERACILLIN-TAZOBACTAM 3.375 GM in SODIUM CHLORIDE 0.9% 100 ML IVPB SCH ×4 (00:20→23:59)
[2021-05-10 00:39] LABS: Glucose,Whole Blood 256 mg/dL (75-99)
[2021-05-10] MEDS: HYDROmorphone 1 MG/ML 1 ML SYRINGE IVP PRN ×4 (01:01→22:34)
[2021-05-10 01:38] LABS: Glucose,Whole Blood 278 mg/dL (75-99)
[2021-05-10 02:37] LABS: Glucose,Whole Blood 288 mg/dL (75-99)
[2021-05-10 03:49] LABS: Glucose,Whole Blood 271 mg/dL (75-99)
[2021-05-10 04:43] LABS: Glucose,Whole Blood 280 mg/dL (75-99)
[2021-05-10 06:00] LABS: Basophils # (A) 0.1 k/uL (0-0.2); Basophils % (A) 0 %; Eosinophils % (A) 0 %; HCT 25.7 % (34.0-46.0); HGB 7.3 gm/dL (11.4-16.0); Hypochromasia Marked; Lymphocytes % (A) 4 %; MCH 24.1 pg (25.0-35.0); MCHC 28.6 g/dL (31.0-37.0); MCV 84.2 fL (80.0-100.0); Monocytes % (A) 3 %; Neutrophils # (A) 26.6 k/uL (1.3-7.7); Neutrophils % (A) 92 %; Platelet Count 582 k/uL (150-450); RBC 3.05 m/uL (3.80-5.40); RDW 14.3 % (11.5-15.5); WBC 28.9 k/uL (3.8-10.6)
[2021-05-10] MEDS ORDERED: AZITHROMYCIN 500 MG in SODIUM CHLORIDE 0.9% 250 ML IVPB SCH (06:00)
[2021-05-10 06:04] LABS: Glucose,Whole Blood 297 mg/dL (75-99)
[2021-05-10 06:14] LABS: ALT 6 U/L (4-34); AST 17 U/L (14-36); African American GFR (CKD) >90 (>60 ml/min/1.73 sqM); Alkaline Phosphatase 173 U/L (38-126); Anion Gap 10 mmol/L; Blood Urea Nitrogen 5 mg/dL (7-17); Calcium 7.7 mg/dL (8.4-10.2); Carbon Dioxide 20 mmol/L (22-30); Chloride 107 mmol/L (98-107); Glucose 260 mg/dL (74-99); Magnesium 1.5 mg/dL (1.6-2.3); Non-African American GFR(CKD) >90 (>60 ml/min/1.73 sqM); Phosphorus 2.6 mg/dL (2.5-4.5); Sodium 137 mmol/L (137-145); Total Bilirubin 0.4 mg/dL (0.2-1.3); Total Protein 5.2 g/dL (6.3-8.2)
[2021-05-10] MEDS: INSULIN REGULAR 100 UNIT in SODIUM CHLORIDE 0.9% 100 ML IV SCH (06:15)
[2021-05-10 07:04] LABS: Glucose,Whole Blood 282 mg/dL (75-99)
[2021-05-10 08:12] LABS: Glucose,Whole Blood 260 mg/dL (75-99)
[2021-05-10] MEDS: HEPARIN SODIUM,PORCINE/PF 5,000 UNIT/0.5 ML SYRINGE SQ SCH ×2 (08:23→22:33)
[2021-05-10] MEDS: DEXTROSE 5%-0.45% NACL 1,000 ML IV SCH ×2 (08:24→17:52)
[2021-05-10 09:14] LABS: Glucose,Whole Blood 242 mg/dL (75-99)
[2021-05-10 10:14] LABS: Glucose,Whole Blood 275 mg/dL (75-99)
[2021-05-10 11:14] LABS: Glucose,Whole Blood 275 mg/dL (75-99)
--- NOTE | 2021-05-10 11:53 | P.PN ---
Subjective Progress Note Date: 05/10/21 This is a very pleasant 36-year-old female patient. She is very frail and cachectic. She has a history of diabetes mellitus, diabetic neuropathy, diabetic retinopathy and had been on insulin pump, depression. She recently had COVID-19 infection 2 weeks ago and was hospitalized at [facility]. She presented here to our ER today with nausea, vomiting, dizziness and lightheadedness with near-syncope. His x-ray reveals extensive airspace pneumonia in the left lung which is progressed compared to an exam 12 hours earlier. There is a new small right lower lobe pneumonia. We are consulted for the same. She is seen today in the emergency room. She is currently sitting up on the stretcher. Awake and alert. She is requiring 6 L high flow nasal cannula to maintain O2 saturation the no 90s. She is dyspneic with exertion. Dyspneic with conversation. She is quite weak. White count 24.3. Hemoglobin 7.4. Platelets 603. Lymphocytes 0.7. Sodium 142. Potassium 3.3. Initial b icarb 10 done 7 currently 14. Initial anion gap 30. Currently 14. Acetone positive. Roberts virus by PCR not detected. Urinalysis with 4+ glucose, 4+ ketones. LDH 747. C-reactive protein 36.7. Creatinine 0.37. Most recent blood glucose 131. She is on a insulin drip at 5 units per hour. She has received 4.5 L of fluid resuscitation. Currently on D5 and half-normal saline with 20 of KCl at 150 MLS per hour. She's been treated with ceftriaxone and azithromycin. Heparin for DVT prophylaxis. On 05/10/2021, the patient is being seen for a follow-up. The patient was seen in consultation is any murmurs department. The patient was indicated thousand recovered. Nevertheless, the chest x-ray showed a large Precedex in the left lung. Initially this was thought to be related to an effusion. Nevertheless, the CAT scan of the chest was done and showed a large consolidation of the left lung. This may be related to pneumonia/mucous plugs as the patient may have some underlying atelectasis addition to consolidation. Based on that, the patient was started on bronchodilators. The patient was felt also on empiric antibiotic coverage utilizing a combination of Zosyn and Levaquin. The patient is doing better for now. She is on 15 L about 2 by nasal cannula. No nausea. No vomiting. No chest pain. Her cough is weak. Unable to bring up much sputum. She is on insulin drip at 3 units an hour. This will be switched to long-acting Levemir 35 units a day in addition to sliding scale coverage. Meanwhile, the patient was a blood sugars of 275, the white cell count is at 28.9 which is elevated with a hemoglobin of 7.3, BUN is at 5 with a creatinine of 0.3, serum bicarbs of 20, sodium is at 137, electrodes are normal, proBNP level is 624. COVID 19 testing is been negative. Objective - Vital Signs Vital signs: Vital Signs Temp 98 F 05/10/21 08:35 Pulse 113 H 05/10/21 08:35 Resp 16 05/10/21 08:35 BP 107/67 05/10/21 08:35 Pulse Ox 93 L 05/10/21 08:35 Intake & Output 05/09/21 05/10/21 05/10/21 18:59 06:59 18:59 Intake Total 65.378 8.653 254.602 Output Total 1100 Balance 65.378 -1091.347 254.602 Weight 40.823 kg 38.5 kg Intake: Intake, IV Titration 65.378 8.653 14.602 Amount Insulin Regular 100 unit 65.378 8.653 14.602 In Sodium Chloride 0.9% 100 ml @ 0.1 UNITS/KG/HR 4.123 mls/hr IV .Q24H [facility] Rx#:[id number] Oral 240 Output: Urine 1100 Other: Voiding Method Bedside Commode Bedside Commode - Exam GENERAL EXAM: Alert, pleasant frail, cachectic 36-year-old female, on 15 L nasal cannula, fairly comfortable in no apparent distress. HEAD: Normocephalic. EYES: Normal reaction of pupils, equal size. NOSE: Clear with pink turbinates. THROAT: No erythema or exudates. NECK: No masses, no JVD. CHEST: No chest wall deformity. LUNGS: Equal air entry with crackles in the bilateral bases left greater than right, diminished in the left lung base CVS: S1 and S2 normal with no audible murmur, regular rhythm. ABDOMEN: No hepatosplenomegaly, normal bowel sounds, no guarding or rigidity. SPINE: No scoliosis or deformity SKIN: No rashes CENTRAL NERVOUS SYSTEM: No focal deficits, tone is normal in all 4 extremities. EXTREMITIES: There is no peripheral edema. No clubbing, no cyanosis. Peripheral pulses are intact. - Labs CBC & Chem 7: 05/10/21 05:18 05/10/21 05:18 Labs: Abnormal Lab Results - Last 24 Hours (Table) 05/09/21 05/09/21 05/09/21 Range/Units 10:41 12:04 12:40 WBC (3.8-10.6) k/uL RBC (3.80-5.40) m/uL Hgb (11.4-16.0) gm/dL Hct (34.0-46.0) % MCH (25.0-35.0) pg MCHC (31.0-37.0) g/dL Plt Count (150-450) k/uL Neutrophils # (1.3-7.7) k/uL Lymphocytes # (1.0-4.8) k/uL Potassium (3.5-5.1) mmol/L Carbon Dioxide (22-30) mmol/L BUN (7-17) mg/dL Creatinine (0.52-1.04) mg/dL Glucose (74-99) mg/dL POC Glucose (mg/dL) 283 H 248 H (75-99) mg/dL Calcium (8.4-10.2) mg/dL Magnesium (1.6-2.3) mg/dL Alkaline Phosphatase (38-126) U/L Total Protein (6.3-8.2) g/dL Albumin (3.5-5.0) g/dL Procalcitonin 0.62 H (0.02-0.09) ng/mL 05/09/21 05/09/21 05/09/21 Range/Units 12:57 13:05 14:01 WBC 24.3 H (3.8-10.6) k/uL RBC 3.08 L (3.80-5.40) m/uL Hgb 7.4 L D (11.4-16.0) gm/dL Hct 25.9 L (34.0-46.0) % MCH 24.1 L (25.0-35.0) pg MCHC 28.7 L (31.0-37.0) g/dL Plt Count 603 H (150-450) k/uL Neutrophils # 22.6 H (1.3-7.7) k/uL Lymphocytes # 0.7 L (1.0-4.8) k/uL Potassium (3.5-5.1) mmol/L Carbon Dioxide (22-30) mmol/L BUN (7-17) mg/dL Creatinine (0.52-1.04) mg/dL Glucose (74-99) mg/dL POC Glucose (mg/dL) 381 H 234 H (75-99) mg/dL Calcium (8.4-10.2) mg/dL Magnesium (1.6-2.3) mg/dL Alkaline Phosphatase (38-126) U/L Total Protein (6.3-8.2) g/dL Albumin (3.5-5.0) g/dL Procalcitonin (0.02-0.09) ng/mL 05/09/21 05/09/21 05/09/21 Range/Units 15:05 16:32 17:14 WBC (3.8-10.6) k/uL RBC (3.80-5.40) m/uL Hgb (11.4-16.0) gm/dL Hct (34.0-46.0) % MCH (25.0-35.0) pg MCHC (31.0-37.0) g/dL Plt Count (150-450) k/uL Neutrophils # (1.3-7.7) k/uL Lymphocytes # (1.0-4.8) k/uL Potassium (3.5-5.1) mmol/L Carbon Dioxide (22-30) mmol/L BUN (7-17) mg/dL Creatinine (0.52-1.04) mg/dL Glucose (74-99) mg/dL POC Glucose (mg/dL) 204 H 151 H 131 H (75-99) mg/dL Calcium (8.4-10.2) mg/dL Magnesium (1.6-2.3) mg/dL Alkaline Phosphatase (38-126) U/L Total Protein (6.3-8.2) g/dL Albumin (3.5-5.0) g/dL Procalcitonin (0.02-0.09) ng/mL 05/09/21 05/09/21 05/09/21 Range/Units 18:30 19:32 20:32 WBC (3.8-10.6) k/uL RBC (3.80-5.40) m/uL Hgb (11.4-16.0) gm/dL Hct (34.0-46.0) % MCH (25.0-35.0) pg MCHC (31.0-37.0) g/dL Plt Count (150-450) k/uL Neutrophils # (1.3-7.7) k/uL Lymphocytes # (1.0-4.8) k/uL Potassium (3.5-5.1) mmol/L Carbon Dioxide (22-30) mmol/L BUN (7-17) mg/dL Creatinine (0.52-1.04) mg/dL Glucose (74-99) mg/dL POC Glucose (mg/dL) 113 H 108 H 116 H (75-99) mg/dL Calcium (8.4-10.2) mg/dL Magnesium (1.6-2.3) mg/dL Alkaline Phosphatase (38-126) U/L Total Protein (6.3-8.2) g/dL Albumin (3.5-5.0) g/dL Procalcitonin (0.02-0.09) ng/mL 05/09/21 05/10/21 05/10/21 Range/Units 22:00 00:36 01:36 WBC (3.8-10.6) k/uL RBC (3.80-5.40) m/uL Hgb (11.4-16.0) gm/dL Hct (34.0-46.0) % MCH (25.0-35.0) pg MCHC (31.0-37.0) g/dL Plt Count (150-450) k/uL Neutrophils # (1.3-7.7) k/uL Lymphocytes # (1.0-4.8) k/uL Potassium (3.5-5.1) mmol/L Carbon Dioxide (22-30) mmol/L BUN (7-17) mg/dL Creatinine (0.52-1.04) mg/dL Glucose (74-99) mg/dL POC Glucose (mg/dL) 177 H 256 H 278 H (75-99) mg/dL Calcium (8.4-10.2) mg/dL Magnesium (1.6-2.3) mg/dL Alkaline Phosphatase (38-126) U/L Total Protein (6.3-8.2) g/dL Albumin (3.5-5.0) g/dL Procalcitonin (0.02-0.09) ng/mL 05/10/21 05/10/21 05/10/21 Range/Units 02:35 03:47 04:41 WBC (3.8-10.6) k/uL RBC (3.80-5.40) m/uL Hgb (11.4-16.0) gm/dL Hct (34.0-46.0) % MCH (25.0-35.0) pg MCHC (31.0-37.0) g/dL Plt Count (150-450) k/uL Neutrophils # (1.3-7.7) k/uL Lymphocytes # (1.0-4.8) k/uL Potassium (3.5-5.1) mmol/L Carbon Dioxide (22-30) mmol/L BUN (7-17) mg/dL Creatinine (0.52-1.04) mg/dL Glucose (74-99) mg/dL POC Glucose (mg/dL) 288 H 271 H 280 H (75-99) mg/dL Calcium (8.4-10.2) mg/dL Magnesium (1.6-2.3) mg/dL Alkaline Phosphatase (38-126) U/L Total Protein (6.3-8.2) g/dL Albumin (3.5-5.0) g/dL Procalcitonin (0.02-0.09) ng/mL 05/10/21 05/10/21 05/10/21 Range/Units 05:18 05:18 06:02 WBC 28.9 H (3.8-10.6) k/uL RBC 3.05 L (3.80-5.40) m/uL Hgb 7.3 L (11.4-16.0) gm/dL Hct 25.7 L (34.0-46.0) % MCH 24.1 L (25.0-35.0) pg MCHC 28.6 L (31.0-37.0) g/dL Plt Count 582 H (150-450) k/uL Neutrophils # 26.6 H (1.3-7.7) k/uL Lymphocytes # (1.0-4.8) k/uL Potassium 3.0 L (3.5-5.1) mmol/L Carbon Dioxide 20 L (22-30) mmol/L BUN 5 L (7-17) mg/dL Creatinine 0.33 L (0.52-1.04) mg/dL Glucose 260 H (74-99) mg/dL POC Glucose (mg/dL) 297 H (75-99) mg/dL Calcium 7.7 L (8.4-10.2) mg/dL Magnesium 1.5 L (1.6-2.3) mg/dL Alkaline Phosphatase 173 H (38-126) U/L Total Protein 5.2 L (6.3-8.2) g/dL Albumin 2.0 L (3.5-5.0) g/dL Procalcitonin (0.02-0.09) ng/mL 05/10/21 05/10/21 05/10/21 Range/Units 06:56 08:10 09:07 WBC (3.8-10.6) k/uL RBC (3.80-5.40) m/uL Hgb (11.4-16.0) gm/dL Hct (34.0-46.0) % MCH (25.0-35.0) pg MCHC (31.0-37.0) g/dL Plt Count (150-450) k/uL Neutrophils # (1.3-7.7) k/uL Lymphocytes # (1.0-4.8) k/uL Potassium (3.5-5.1) mmol/L Carbon Dioxide (22-30) mmol/L BUN (7-17) mg/dL Creatinine (0.52-1.04) mg/dL Glucose (74-99) mg/dL POC Glucose (mg/dL) 282 H 260 H 242 H (75-99) mg/dL Calcium (8.4-10.2) mg/dL Magnesium (1.6-2.3) mg/dL Alkaline Phosphatase (38-126) U/L Total Protein (6.3-8.2) g/dL Albumin (3.5-5.0) g/dL Procalcitonin (0.02-0.09) ng/mL 05/10/21 05/10/21 Range/Units 10:12 11:11 WBC (3.8-10.6) k/uL RBC (3.80-5.40) m/uL Hgb (11.4-16.0) gm/dL Hct (34.0-46.0) % MCH (25.0-35.0) pg MCHC (31.0-37.0) g/dL Plt Count (150-450) k/uL Neutrophils # (1.3-7.7) k/uL Lymphocytes # (1.0-4.8) k/uL Potassium (3.5-5.1) mmol/L Carbon Dioxide (22-30) mmol/L BUN (7-17) mg/dL Creatinine (0.52-1.04) mg/dL Glucose (74-99) mg/dL POC Glucose (mg/dL) 275 H 275 H (75-99) mg/dL Calcium (8.4-10.2) mg/dL Magnesium (1.6-2.3) mg/dL Alkaline Phosphatase (38-126) U/L Total Protein (6.3-8.2) g/dL Albumin (3.5-5.0) g/dL Procalcitonin (0.02-0.09) ng/mL Microbiology - Last 24 Hours (Table) 05/09/21 06:37 Urine Culture - Preliminary Urine,Voided Assessment and Plan Plan: 1 Acute diabetic ketoacidosis secondary to nausea, vomiting and dehydration, recovered and gram-negative closed 2 Anion gap metabolic acidosis secondary to above, recovered 3 Acute hypoxemic respiratory failure secondary to bilateral infiltrates left greater than right with significant volume loss in the left lung, the patient has extensive consolidation and volume loss of the left lung, probably due to mucous plug at the predominant findings consolidation/pneumonia. Covered with broad-spectrum antibiotics. The patient's 15 L of oxygen by nasal cannula. 4 Leukocytosis secondary to above 5 Diabetes mellitus 6 Diabetic retinopathy 7 Diabetic neuropathy 8 Recent COVID-19 infection 2 weeks ago and hospitalized at [facility] 9 History of migraine 10 History of anxiety/depression Plan: Keep the patient on oxygen at 15 L per minute. Noted for thoracentesis and the predominant findings on the left lung is consolidation Continue Zosyn and Levaquin as an empiric antibiotic coverage Deep breathing pulmonary toileting and providing the patient incentive spirometer Repeat chest x-ray in the morning Monitor the white cell count Discontinue the insulin drip and put the patient on Levemir insulin 35 units along with dysarthria coverage Advance diet as tolerated We'll continue to follow
[2021-05-10] MEDS ORDERED: IPRATROPIUM-ALBUTEROL 3 ML NEB INHALATION SCH (12:00)
[2021-05-10] MEDS: INSULIN ASPART (NovoLOG) 100 UNIT/ML VIAL SQ SCH ×3 (12:10→21:04)
[2021-05-10 12:11] LABS: Glucose,Whole Blood 236 mg/dL (75-99)
[2021-05-10] MEDS: INSULIN DETEMIR (LEVEMIR) 100 UNIT/ML SYR SQ SCH (12:11)
[2021-05-10] MEDS: ONDANSETRON 4 MG/2 ML VIAL IVP PRN (12:15)
[2021-05-10] MEDS: SODIUM CHLORIDE 0.9% 1,000 ML IV SCH (13:50)
[2021-05-10] MEDS: ALBUTEROL HFA INHALER INHALATION SCH ×2 (16:09→19:38)
[2021-05-10] MEDS: LORazepam 2 MG/ML INJ IV PRN (16:27)
[2021-05-10 16:53] LABS: Glucose,Whole Blood 147 mg/dL (75-99)
[2021-05-10] MEDS ORDERED: POTASSIUM CHLORIDE ER 20 MEQ TAB.ER PO STA ×2 (18:03→23:35)
[2021-05-10] MEDS: LEVOFLOXACIN 500MG-D5W PMX 500 MG in DEXTROSE/WATER 1 100ML.BAG IVPB SCH (18:28)
[2021-05-10 21:02] LABS: Glucose,Whole Blood 100 mg/dL (75-99)
--- NOTE | 2021-05-10 23:13 | P.PN ---
Subjective Progress Note Date: 05/10/21 Patient is a 36-year-old female with known history of diabetes type 1, chronic back pain, anxiety/depression physiology complains of nausea vomiting and generalized weakness. Patient felt very weak and dizzy and had near syncope. Patient is also complaining of body aches and pains. Denied any cough or sputum production. Patient was found to have elevated blood sugars in 400s lactic acid 2.5 and a stone positive. Chest x-ray showed there is left lower lobe pneumonia which is new compared to old exam. M.D. 747 CRP 36.7 Diabetes. 3.4 hemoglobin 10.5 and platelets 793 Patient is tachycardic and tachypneic on admission pulse ox 90% on 6 L oxygen via nasal cannula. Urinalysis showed cloudy with 4+ ketones and large leukocyte esterase and elevated WBCs 05/10/2021 Patient is currently in the select care unit. Awake alert and more oriented today. Requiring high flow oxygen at [address] of the chest was done yesterday showed extensive pulmonary infiltrates likely related to bronchopneumonia. Mild left pleural effusion. Antibiotics changed to broad-spectrum with Zosyn and Levaquin. Pulmonary is on board. Patient has been afebrile. Continue on insulin drip. Laboratory data WBC 28.9 hemoglobin 7.3 and platelets 582 Sodium 137 potassium 3.0 magnesium 1.5 BUN 5 and creatinine 0.33. COVID-19 PCR not detected. Urine culture showed gram-negative bacilli, presumptive staph and strep. REVIEW OF SYSTEMS CONSTITUTIONAL: Denies fever or chills. lethargic and weak CARDIOVASCULAR: Denies chest pain, orthopnea, PND or palpitations. RESPIRATORY: Denies cough. GASTROINTESTINAL: Denies abdominal pain, diarrhea, constipation, nausea or vomiting. MUSCULOSKELETAL: Denies myalgias. NEUROLOGIC: Denies numbness, tingling or weakness. ENDOCRINE: Denies fatigue, weight change, polydipsia or polyurina. GENITOURINARY: Denies burning, hematuria or urgency with micturation. HEMATOLOGIC: Denies history of anemia or bleeding. Current medications reviewed. Objective - Vital Signs Vital signs: Vital Signs Temp 98 F 05/10/21 16:33 Pulse 118 H 05/10/21 16:33 Resp 21 05/10/21 16:33 BP 105/67 05/10/21 16:33 Pulse Ox 97 05/10/21 16:33 Intake & Output 05/10/21 05/10/21 05/11/21 06:59 18:59 06:59 Intake Total 8.653 374.602 Output Total 1100 800 Balance -1091.347 -425.398 Weight 37 kg Intake: Intake, IV Titration 8.653 14.602 Amount Insulin Regular 100 unit 8.653 14.602 In Sodium Chloride 0.9% 100 ml @ 0.1 UNITS/KG/HR 4.123 mls/hr IV .Q24H [facility] Rx#:[id number] Oral 360 Output: Urine 1100 800 Other: Voiding Method Bedside Commode Bedside Commode - Exam PHYSICAL EXAMINATION: Patient is lying in the bed comfortably, mild distress, awake alert and oriented.. HEENT: Normocephalic. Neck is supple. Pupils reactive. Nostrils clear. Oral cavity is moist. Neck reveals no JVD, carotid bruits, or thyromegaly. CHEST EXAMINATION: Trachea is central. Symmetrical expansion. Bilateral diminished sounds and coarse breath sounds.. CARDIAC: Normal S1, S2 with no gallops. No murmurs ABDOMEN: Soft. Bowel sounds normal. No organomegaly. No abdominal bruits. Extremities: reveal no edema. No clubbing or cyanosis Neurologically awake, alert, oriented x3 with well-coordinated movements. Lethargic and weak. No gross focal deficits noted Skin: No rash or skin lesions. Psychiatric: Coperative. Could not be assessed completely Musculoskeletal: No joint swelling or deformity. - Labs CBC & Chem 7: 05/10/21 05:18 05/10/21 05:18 Labs: Abnormal Lab Results - Last 24 Hours (Table) 05/09/21 05/09/21 05/10/21 Range/Units 10:41 22:00 00:36 WBC (3.8-10.6) k/uL RBC (3.80-5.40) m/uL Hgb (11.4-16.0) gm/dL Hct (34.0-46.0) % MCH (25.0-35.0) pg MCHC (31.0-37.0) g/dL Plt Count (150-450) k/uL Neutrophils # (1.3-7.7) k/uL Potassium (3.5-5.1) mmol/L Carbon Dioxide (22-30) mmol/L BUN (7-17) mg/dL Creatinine (0.52-1.04) mg/dL Glucose (74-99) mg/dL POC Glucose (mg/dL) 177 H 256 H (75-99) mg/dL Calcium (8.4-10.2) mg/dL Magnesium (1.6-2.3) mg/dL Alkaline Phosphatase (38-126) U/L Total Protein (6.3-8.2) g/dL Albumin (3.5-5.0) g/dL Procalcitonin 0.62 H (0.02-0.09) ng/mL 05/10/21 05/10/21 05/10/21 Range/Units 01:36 02:35 03:47 WBC (3.8-10.6) k/uL RBC (3.80-5.40) m/uL Hgb (11.4-16.0) gm/dL Hct (34.0-46.0) % MCH (25.0-35.0) pg MCHC (31.0-37.0) g/dL Plt Count (150-450) k/uL Neutrophils # (1.3-7.7) k/uL Potassium (3.5-5.1) mmol/L Carbon Dioxide (22-30) mmol/L BUN (7-17) mg/dL Creatinine (0.52-1.04) mg/dL Glucose (74-99) mg/dL POC Glucose (mg/dL) 278 H 288 H 271 H (75-99) mg/dL Calcium (8.4-10.2) mg/dL Magnesium (1.6-2.3) mg/dL Alkaline Phosphatase (38-126) U/L Total Protein (6.3-8.2) g/dL Albumin (3.5-5.0) g/dL Procalcitonin (0.02-0.09) ng/mL 05/10/21 05/10/21 05/10/21 Range/Units 04:41 05:18 05:18 WBC 28.9 H (3.8-10.6) k/uL RBC 3.05 L (3.80-5.40) m/uL Hgb 7.3 L (11.4-16.0) gm/dL Hct 25.7 L (34.0-46.0) % MCH 24.1 L (25.0-35.0) pg MCHC 28.6 L (31.0-37.0) g/dL Plt Count 582 H (150-450) k/uL Neutrophils # 26.6 H (1.3-7.7) k/uL Potassium 3.0 L (3.5-5.1) mmol/L Carbon Dioxide 20 L (22-30) mmol/L BUN 5 L (7-17) mg/dL Creatinine 0.33 L (0.52-1.04) mg/dL Glucose 260 H (74-99) mg/dL POC Glucose (mg/dL) 280 H (75-99) mg/dL Calcium 7.7 L (8.4-10.2) mg/dL Magnesium 1.5 L (1.6-2.3) mg/dL Alkaline Phosphatase 173 H (38-126) U/L Total Protein 5.2 L (6.3-8.2) g/dL Albumin 2.0 L (3.5-5.0) g/dL Procalcitonin (0.02-0.09) ng/mL 05/10/21 05/10/21 05/10/21 Range/Units 06:02 06:56 08:10 WBC (3.8-10.6) k/uL RBC (3.80-5.40) m/uL Hgb (11.4-16.0) gm/dL Hct (34.0-46.0) % MCH (25.0-35.0) pg MCHC (31.0-37.0) g/dL Plt Count (150-450) k/uL Neutrophils # (1.3-7.7) k/uL Potassium (3.5-5.1) mmol/L Carbon Dioxide (22-30) mmol/L BUN (7-17) mg/dL Creatinine (0.52-1.04) mg/dL Glucose (74-99) mg/dL POC Glucose (mg/dL) 297 H 282 H 260 H (75-99) mg/dL Calcium (8.4-10.2) mg/dL Magnesium (1.6-2.3) mg/dL Alkaline Phosphatase (38-126) U/L Total Protein (6.3-8.2) g/dL Albumin (3.5-5.0) g/dL Procalcitonin (0.02-0.09) ng/mL 05/10/21 05/10/21 05/10/21 Range/Units 09:07 10:12 11:11 WBC (3.8-10.6) k/uL RBC (3.80-5.40) m/uL Hgb (11.4-16.0) gm/dL Hct (34.0-46.0) % MCH (25.0-35.0) pg MCHC (31.0-37.0) g/dL Plt Count (150-450) k/uL Neutrophils # (1.3-7.7) k/uL Potassium (3.5-5.1) mmol/L Carbon Dioxide (22-30) mmol/L BUN (7-17) mg/dL Creatinine (0.52-1.04) mg/dL Glucose (74-99) mg/dL POC Glucose (mg/dL) 242 H 275 H 275 H (75-99) mg/dL Calcium (8.4-10.2) mg/dL Magnesium (1.6-2.3) mg/dL Alkaline Phosphatase (38-126) U/L Total Protein (6.3-8.2) g/dL Albumin (3.5-5.0) g/dL Procalcitonin (0.02-0.09) ng/mL 05/10/21 05/10/21 05/10/21 Range/Units 12:09 16:52 20:32 WBC (3.8-10.6) k/uL RBC (3.80-5.40) m/uL Hgb (11.4-16.0) gm/dL Hct (34.0-46.0) % MCH (25.0-35.0) pg MCHC (31.0-37.0) g/dL Plt Count (150-450) k/uL Neutrophils # (1.3-7.7) k/uL Potassium (3.5-5.1) mmol/L Carbon Dioxide (22-30) mmol/L BUN (7-17) mg/dL Creatinine (0.52-1.04) mg/dL Glucose (74-99) mg/dL POC Glucose (mg/dL) 236 H 147 H 100 H (75-99) mg/dL Calcium (8.4-10.2) mg/dL Magnesium (1.6-2.3) mg/dL Alkaline Phosphatase (38-126) U/L Total Protein (6.3-8.2) g/dL Albumin (3.5-5.0) g/dL Procalcitonin (0.02-0.09) ng/mL Microbiology - Last 24 Hours (Table) 05/09/21 06:37 Urine Culture - Preliminary Urine,Voided Presumptive Staph aureus Gram Neg Bacilli Strep agalactiae - (group b) Assessment and Plan Assessment: Acute diabetic ketoacidosis Bilateral multifocal pneumonia Acute hypoxic respiratory failure currently requiring 6 L-->15L oxygen via nasal cannula Acute urinary tract infection Sepsis secondary to above. Patient is tachycardic tachypneic and WBC 33 on admission Hypokalemia and hypomagnesemia replaced. chronic back pain Bilateral lower extremity diabetic peripheral neuropathy Anxiety/depression DVT prophylaxis with heparin subcu Plan: DKA has resolved. Insulin dose changed to subcu. Patient is being treated with broad-spectrum antibiotics due to multifocal bronchopneumonia. CT chest was done. Follow-up final culture report. Continue with oxygen supplementation 15 L via nasal cannula. Encourage oral intake. Pulmonary is on board. Time with Patient: Greater than 30
[2021-05-10] MEDS: MAGNESIUM SULFATE-D5W PMX 1 GM in DEXTROSE/WATER 1 100ML.BAG IVPB SCH (23:56)
[2021-05-11] MEDS: ONDANSETRON 4 MG/2 ML VIAL IVP PRN ×2 (00:12→21:59)
[2021-05-11] MEDS: MAGNESIUM SULFATE-D5W PMX 1 GM in DEXTROSE/WATER 1 100ML.BAG IVPB SCH (00:54)
[2021-05-11] MEDS ORDERED: DEXTROSE 50% SYRINGE 50 ML IVP ONE (04:56)
[2021-05-11 05:12] LABS: Glucose,Whole Blood 21 mg/dL (75-99)
[2021-05-11 05:15] LABS: Glucose,Whole Blood 160 mg/dL (75-99)
[2021-05-11] MEDS: HYDROmorphone 1 MG/ML 1 ML SYRINGE IVP PRN ×4 (05:15→20:41)
[2021-05-11 06:33] LABS: Glucose,Whole Blood 91 mg/dL (75-99)
[2021-05-11] MEDS: INSULIN ASPART (NovoLOG) 100 UNIT/ML VIAL SQ SCH ×4 (06:59→20:41)
[2021-05-11] MEDS: INSULIN DETEMIR (LEVEMIR) 100 UNIT/ML SYR SQ SCH (07:00)
[2021-05-11] MEDS: ALBUTEROL HFA INHALER INHALATION SCH ×4 (08:19→20:56)
[2021-05-11] MEDS: PIPERACILLIN-TAZOBACTAM 3.375 GM in SODIUM CHLORIDE 0.9% 100 ML IVPB SCH ×3 (08:27→23:58)
[2021-05-11] MEDS: HEPARIN SODIUM,PORCINE/PF 5,000 UNIT/0.5 ML SYRINGE SQ SCH ×2 (08:27→20:41)
--- NOTE | 2021-05-11 08:58 | XR ---
EXAMINATION TYPE: XR chest 1V DATE OF EXAM: 05/11/2021 COMPARISON: 05/09/2021 INDICATION: Prior left lung consolidation on chest x-ray. TECHNIQUE: Single frontal view of the chest is obtained. FINDINGS: The heart size is normal. The pulmonary vasculature is normal. There is a left lung consolidation. Air bronchograms are present. Findings are stable. IMPRESSION: 1. Stable left lung infiltrate. Continued follow-up is recommended.
[2021-05-11 09:31] LABS: African American GFR (CKD) >90 (>60 ml/min/1.73 sqM); Anion Gap 7 mmol/L; Blood Urea Nitrogen 4 mg/dL (7-17); Calcium 7.6 mg/dL (8.4-10.2); Carbon Dioxide 25 mmol/L (22-30); Chloride 102 mmol/L (98-107); Glucose 88 mg/dL (74-99); Non-African American GFR(CKD) >90 (>60 ml/min/1.73 sqM); Potassium 3.4 mmol/L (3.5-5.1); Sodium 134 mmol/L (137-145)
[2021-05-11 09:34] LABS: Basophils % (A) 0 %; Eosinophils % (A) 0 %; HCT 23.1 % (34.0-46.0); Hypochromasia Marked; Lymphocytes % (A) 3 %; MCH 24.1 pg (25.0-35.0); MCHC 29.1 g/dL (31.0-37.0); MCV 82.6 fL (80.0-100.0); Mean Platelet Volume 7.7; Monocytes # (A) 1.2 k/uL (0-1.0); Monocytes % (A) 4 %; Neutrophils # (A) 30.6 k/uL (1.3-7.7); Neutrophils % (A) 93 %; Platelet Count 507 k/uL (150-450); RDW 14.4 % (11.5-15.5)
[2021-05-11 09:35] LABS: HGB 6.7 gm/dL (11.4-16.0)
[2021-05-11 09:36] LABS: WBC 33.1 k/uL (3.8-10.6)
[2021-05-11 11:54] LABS: Glucose,Whole Blood 99 mg/dL (75-99)
--- NOTE | 2021-05-11 12:05 | P.PN ---
Subjective Progress Note Date: 05/11/21 This is a very pleasant 36-year-old female patient. She is very frail and cachectic. She has a history of diabetes mellitus, diabetic neuropathy, diabetic retinopathy and had been on insulin pump, depression. She recently had COVID-19 infection 2 weeks ago and was hospitalized at [facility]. She presented here to our ER today with nausea, vomiting, dizziness and lightheadedness with near-syncope. His x-ray reveals extensive airspace pneumonia in the left lung which is progressed compared to an exam 12 hours earlier. There is a new small right lower lobe pneumonia. We are consulted for the same. She is seen today in the emergency room. She is currently sitting up on the stretcher. Awake and alert. She is requiring 6 L high flow nasal cannula to maintain O2 saturation the no 90s. She is dyspneic with exertion. Dyspneic with conversation. She is quite weak. White count 24.3. Hemoglobin 7.4. Platelets 603. Lymphocytes 0.7. Sodium 142. Potassium 3.3. Initial b icarb 10 done 7 currently 14. Initial anion gap 30. Currently 14. Acetone positive. Roberts virus by PCR not detected. Urinalysis with 4+ glucose, 4+ ketones. LDH 747. C-reactive protein 36.7. Creatinine 0.37. Most recent blood glucose 131. She is on a insulin drip at 5 units per hour. She has received 4.5 L of fluid resuscitation. Currently on D5 and half-normal saline with 20 of KCl at 150 MLS per hour. She's been treated with ceftriaxone and azithromycin. Heparin for DVT prophylaxis. On 05/10/2021, the patient is being seen for a follow-up. The patient was seen in consultation is any murmurs department. The patient was indicated thousand recovered. Nevertheless, the chest x-ray showed a large Precedex in the left lung. Initially this was thought to be related to an effusion. Nevertheless, the CAT scan of the chest was done and showed a large consolidation of the left lung. This may be related to pneumonia/mucous plugs as the patient may have some underlying atelectasis addition to consolidation. Based on that, the patient was started on bronchodilators. The patient was felt also on empiric antibiotic coverage utilizing a combination of Zosyn and Levaquin. The patient is doing better for now. She is on 15 L about 2 by nasal cannula. No nausea. No vomiting. No chest pain. Her cough is weak. Unable to bring up much sputum. She is on insulin drip at 3 units an hour. This will be switched to long-acting Levemir 35 units a day in addition to sliding scale coverage. Meanwhile, the patient was a blood sugars of 275, the white cell count is at 28.9 which is elevated with a hemoglobin of 7.3, BUN is at 5 with a creatinine of 0.3, serum bicarbs of 20, sodium is at 137, electrodes are normal, proBNP level is 624. COVID 19 testing is been negative. On 05/11/2021, the patient is being seen for a follow-up. The patient is doing well. A repeat chest x-ray was done today and shows some limited improvement in aeration of left lung consolidation. The patient is doing well. She remains on 15 L of oxygen by nasal cannula patient remains on a combination of Zosyn and Levaquin. The patient is also using incentive spirometer. She is on Levemir insulin 35 units daily and NovoLog extensive coverage. She is requesting for her diet to be advanced further. The patient otherwise doing well. The white cell count is currently up to 33 and her hemoglobin dropped down to 6.7. The patient has no signs of any bleeding. Hemoglobin has dropped significantly over the past 48 hours. No abdominal distention. No melanotic stool. No nausea or emesis or hematemesis for now. Meanwhile, the anion gap is currently at 7. Potassium level is at 3.4. The primary care team as recognized been drop in hemoglobin and the patient will be given a unit of packed RBC. We'll check also Hemoccult stool. Objective - Vital Signs Vital signs: Vital Signs Temp 97.7 F 05/11/21 08:00 Pulse 94 05/11/21 11:12 Resp 18 05/11/21 11:12 BP 125/82 05/11/21 08:00 Pulse Ox 100 05/11/21 08:00 Intake & Output 05/10/21 05/11/21 05/11/21 18:59 06:59 18:59 Intake Total 374.602 Output Total 800 Balance -425.398 Weight 37 kg 36.5 kg Intake: Intake, IV Titration 14.602 Amount Insulin Regular 100 unit 14.602 In Sodium Chloride 0.9% 100 ml @ 0.1 UNITS/KG/HR 4.123 mls/hr IV .Q24H [facility] Rx#:[id number] Oral 360 Output: Urine 800 Other: Voiding Method Bedside Commode Bedside Commode # Voids 1 - Exam GENERAL EXAM: Alert, pleasant frail, cachectic 36-year-old female, on 15 L nasal cannula, fairly comfortable in no apparent distress. HEAD: Normocephalic. EYES: Normal reaction of pupils, equal size. NOSE: Clear with pink turbinates. THROAT: No erythema or exudates. NECK: No masses, no JVD. CHEST: No chest wall deformity. LUNGS: Equal air entry with crackles in the bilateral bases left greater than right, diminished in the left lung base CVS: S1 and S2 normal with no audible murmur, regular rhythm. ABDOMEN: No hepatosplenomegaly, normal bowel sounds, no guarding or rigidity. SPINE: No scoliosis or deformity SKIN: No rashes CENTRAL NERVOUS SYSTEM: No focal deficits, tone is normal in all 4 extremities. EXTREMITIES: There is no peripheral edema. No clubbing, no cyanosis. Peripheral pulses are intact. - Labs CBC & Chem 7: 05/11/21 08:55 05/11/21 08:55 Labs: Abnormal Lab Results - Last 24 Hours (Table) 05/10/21 05/10/21 05/10/21 Range/Units 12:09 16:52 20:32 WBC (3.8-10.6) k/uL RBC (3.80-5.40) m/uL Hgb (11.4-16.0) gm/dL Hct (34.0-46.0) % MCH (25.0-35.0) pg MCHC (31.0-37.0) g/dL Plt Count (150-450) k/uL Neutrophils # (1.3-7.7) k/uL Monocytes # (0-1.0) k/uL Sodium (137-145) mmol/L Potassium (3.5-5.1) mmol/L BUN (7-17) mg/dL Creatinine (0.52-1.04) mg/dL POC Glucose (mg/dL) 236 H 147 H 100 H (75-99) mg/dL Calcium (8.4-10.2) mg/dL 05/10/21 05/11/21 05/11/21 Range/Units 22:34 04:55 05:13 WBC (3.8-10.6) k/uL RBC (3.80-5.40) m/uL Hgb (11.4-16.0) gm/dL Hct (34.0-46.0) % MCH (25.0-35.0) pg MCHC (31.0-37.0) g/dL Plt Count (150-450) k/uL Neutrophils # (1.3-7.7) k/uL Monocytes # (0-1.0) k/uL Sodium (137-145) mmol/L Potassium 2.4 L* (3.5-5.1) mmol/L BUN (7-17) mg/dL Creatinine (0.52-1.04) mg/dL POC Glucose (mg/dL) 21 L 160 H (75-99) mg/dL Calcium (8.4-10.2) mg/dL 05/11/21 05/11/21 Range/Units 08:55 08:55 WBC 33.1 H (3.8-10.6) k/uL RBC 2.80 L (3.80-5.40) m/uL Hgb 6.7 L* (11.4-16.0) gm/dL Hct 23.1 L (34.0-46.0) % MCH 24.1 L (25.0-35.0) pg MCHC 29.1 L (31.0-37.0) g/dL Plt Count 507 H (150-450) k/uL Neutrophils # 30.6 H (1.3-7.7) k/uL Monocytes # 1.2 H (0-1.0) k/uL Sodium 134 L (137-145) mmol/L Potassium 3.4 L (3.5-5.1) mmol/L BUN 4 L (7-17) mg/dL Creatinine 0.23 L (0.52-1.04) mg/dL POC Glucose (mg/dL) (75-99) mg/dL Calcium 7.6 L (8.4-10.2) mg/dL Microbiology - Last 24 Hours (Table) 05/09/21 06:37 Urine Culture - Final Urine,Voided Methicillin resist S. aureus Escherichia coli Strep agalactiae - (group b) Assessment and Plan Plan: 1 Acute diabetic ketoacidosis secondary to nausea, vomiting and dehydration, recovered and anion gap is closed and the patient was switched to long-acting insulin with Levemir. 2 Anion gap metabolic acidosis secondary to above, recovered 3 Acute hypoxemic respiratory failure secondary to bilateral infiltrates left greater than right with significant volume loss in the left lung, the patient has extensive consolidation and volume loss of the left lung, probably due to mucous plug at the predominant findings consolidation/pneumonia. Covered with broad-spectrum antibiotics. The patient's white cell count remains elevated. The patient remains on examination Zosyn and Levaquin. The chest x-ray from today shows some limited improvement in aeration of the left lung. The patient remains on oxygen at high flow at 15 L of oxygen by nasal cannula. 4 Leukocytosis secondary to above 5 Diabetes mellitus 6 Diabetic retinopathy 7 Diabetic neuropathy 8 Recent COVID-19 infection 2 weeks ago and hospitalized at [facility] 9 History of migraine 10 History of anxiety/depression Plan: Keep the patient on oxygen at 15 L per minute. Monitor the white cell count Repeat chest x-ray with the next 24 hours Continue Zosyn and Levaquin as an empiric antibiotic coverage Deep breathing pulmonary toileting and providing the patient incentive sp irometer Levemir insulin 35 units along with dysarthria coverage Advance diet as tolerated We'll continue to follow
[2021-05-11 16:33] LABS: % Iron Saturation 5.8 (12.00-45.00)
[2021-05-11 16:56] LABS: Glucose,Whole Blood 118 mg/dL (75-99)
[2021-05-11 20:13] LABS: Glucose,Whole Blood 199 mg/dL (75-99)
[2021-05-11] MEDS: LEVOFLOXACIN 500MG-D5W PMX 500 MG in DEXTROSE/WATER 1 100ML.BAG IVPB SCH (20:38)
[2021-05-12] MEDS: HYDROmorphone 1 MG/ML 1 ML SYRINGE IVP PRN ×3 (01:23→21:48)
--- NOTE | 2021-05-12 01:25 | P.PN ---
Subjective Progress Note Date: 05/11/21 Patient is a 36-year-old female with known history of diabetes type 1, chronic back pain, anxiety/depression physiology complains of nausea vomiting and generalized weakness. Patient felt very weak and dizzy and had near syncope. Patient is also complaining of body aches and pains. Denied any cough or sputum production. Patient was found to have elevated blood sugars in 400s lactic acid 2.5 and a stone positive. Chest x-ray showed there is left lower lobe pneumonia which is new compared to old exam. M.D. 747 CRP 36.7 Diabetes. 3.4 hemoglobin 10.5 and platelets 793 Patient is tachycardic and tachypneic on admission pulse ox 90% on 6 L oxygen via nasal cannula. Urinalysis showed cloudy with 4+ ketones and large leukocyte esterase and elevated WBCs 05/10/2021 Patient is currently in the select care unit. Awake alert and more oriented today. Requiring high flow oxygen at [address] of the chest was done yesterday showed extensive pulmonary infiltrates likely related to bronchopneumonia. Mild left pleural effusion. Antibiotics changed to broad-spectrum with Zosyn and Levaquin. Pulmonary is on board. Patient has been afebrile. Continue on insulin drip. Laboratory data WBC 28.9 hemoglobin 7.3 and platelets 582 Sodium 137 potassium 3.0 magnesium 1.5 BUN 5 and creatinine 0.33. COVID-19 PCR not detected. Urine culture showed gram-negative bacilli, presumptive staph and strep. 05/11/2020 Patient is currently resting in bed. Awake alert and oriented x3. Patient states that she feels better. No complaints of chest pain. Shortness of breath is getting better. Currently requiring 10 L of oxygen via nasal cannula. Patient is on antibiotics at home Levaquin and Zosyn. Patient became hypoglycemic with blood sugar in 20s last night. Levemir dose will be decreased. Continue with insulin sliding scale. Laboratory data showed WBC 33.1 hemoglobin 6.7 and platelets 507 Sodium 134 potassium 3.4 chloride 102 BUN 4 and creatinine 0.23 and blood sugar is 88 this morning. REVIEW OF SYSTEMS CONSTITUTIONAL: Denies fever or chills. lethargic and weak CARDIOVASCULAR: Denies chest pain, orthopnea, PND or palpitations. RESPIRATORY: Denies cough. GASTROINTESTINAL: Denies abdominal pain, diarrhea, constipation, nausea or vomiting. MUSCULOSKELETAL: Denies myalgias. NEUROLOGIC: Denies numbness, tingling or weakness. ENDOCRINE: Denies fatigue, weight change, polydipsia or polyurina. GENITOURINARY: Denies burning, hematuria or urgency with micturation. HEMATOLOGIC: Denies history of anemia or bleeding. Current medications reviewed. Objective - Vital Signs Vital signs: Vital Signs Temp 97.9 F 05/11/21 14:35 Pulse 100 05/11/21 14:35 Resp 18 05/11/21 14:35 BP 103/65 05/11/21 14:35 Pulse Ox 99 05/11/21 16:00 Intake & Output 05/10/21 05/11/21 05/11/21 18:59 06:59 18:59 Intake Total 374.602 0 Output Total 800 Balance -425.398 0 Weight 37 kg 36.5 kg Intake: Intake, IV Titration 14.602 Amount Insulin Regular 100 unit 14.602 In Sodium Chloride 0.9% 100 ml @ 0.1 UNITS/KG/HR 4.123 mls/hr IV .Q24H [facility] Rx#:[id number] Oral 360 Blood Product 0 Rc As-1 Unit 0 [id number] Output: Urine 800 Other: Voiding Method Bedside Commode Bedside Commode # Voids 1 - Exam PHYSICAL EXAMINATION: Patient is lying in the bed comfortably, mild distress, awake alert and oriented.. HEENT: Normocephalic. Neck is supple. Pupils reactive. Nostrils clear. Oral cavity is moist. Neck reveals no JVD, carotid bruits, or thyromegaly. CHEST EXAMINATION: Trachea is central. Symmetrical expansion. Bilateral diminished sounds and coarse breath sounds.. CARDIAC: Normal S1, S2 with no gallops. No murmurs ABDOMEN: Soft. Bowel sounds normal. No organomegaly. No abdominal bruits. Extremities: reveal no edema. No clubbing or cyanosis Neurologically awake, alert, oriented x3 with well-coordinated movements. Lethargic and weak. No gross focal deficits noted Skin: No rash or skin lesions. Psychiatric: Coperative. Could not be assessed completely Musculoskeletal: No joint swelling or deformity. - Labs CBC & Chem 7: 05/11/21 08:55 05/11/21 08:55 Labs: Abnormal Lab Results - Last 24 Hours (Table) 05/10/21 05/10/21 05/10/21 Range/Units 16:52 20:32 22:34 WBC (3.8-10.6) k/uL RBC (3.80-5.40) m/uL Hgb (11.4-16.0) gm/dL Hct (34.0-46.0) % MCH (25.0-35.0) pg MCHC (31.0-37.0) g/dL Plt Count (150-450) k/uL Neutrophils # (1.3-7.7) k/uL Monocytes # (0-1.0) k/uL Sodium (137-145) mmol/L Potassium 2.4 L* (3.5-5.1) mmol/L BUN (7-17) mg/dL Creatinine (0.52-1.04) mg/dL POC Glucose (mg/dL) 147 H 100 H (75-99) mg/dL Calcium (8.4-10.2) mg/dL Crossmatch 05/11/21 05/11/21 05/11/21 Range/Units 04:55 05:13 08:55 WBC 33.1 H (3.8-10.6) k/uL RBC 2.80 L (3.80-5.40) m/uL Hgb 6.7 L* (11.4-16.0) gm/dL Hct 23.1 L (34.0-46.0) % MCH 24.1 L (25.0-35.0) pg MCHC 29.1 L (31.0-37.0) g/dL Plt Count 507 H (150-450) k/uL Neutrophils # 30.6 H (1.3-7.7) k/uL Monocytes # 1.2 H (0-1.0) k/uL Sodium (137-145) mmol/L Potassium (3.5-5.1) mmol/L BUN (7-17) mg/dL Creatinine (0.52-1.04) mg/dL POC Glucose (mg/dL) 21 L 160 H (75-99) mg/dL Calcium (8.4-10.2) mg/dL Crossmatch 05/11/21 05/11/21 Range/Units 08:55 11:06 WBC (3.8-10.6) k/uL RBC (3.80-5.40) m/uL Hgb (11.4-16.0) gm/dL Hct (34.0-46.0) % MCH (25.0-35.0) pg MCHC (31.0-37.0) g/dL Plt Count (150-450) k/uL Neutrophils # (1.3-7.7) k/uL Monocytes # (0-1.0) k/uL Sodium 134 L (137-145) mmol/L Potassium 3.4 L (3.5-5.1) mmol/L BUN 4 L (7-17) mg/dL Creatinine 0.23 L (0.52-1.04) mg/dL POC Glucose (mg/dL) (75-99) mg/dL Calcium 7.6 L (8.4-10.2) mg/dL Crossmatch See Detail Microbiology - Last 24 Hours (Table) 05/09/21 06:37 Urine Culture - Final Urine,Voided Methicillin resist S. aureus Escherichia coli Strep agalactiae - (group b) Assessment and Plan Assessment: Acute diabetic ketoacidosis Bilateral multifocal pneumonia Acute hypoxic respiratory failure currently requiring 6 L-->15L--10L oxygen via nasal cannula Acute urinary tract infection Sepsis secondary to above. Patient is tachycardic tachypneic and WBC 33 on admission Hypokalemia and hypomagnesemia replaced. chronic back pain Bilateral lower extremity diabetic peripheral neuropathy Anxiety/depression DVT prophylaxis with heparin subcu Plan: Patient is being treated with broad-spectrum antibiotics due to multifocal bronchopneumonia. titrate down Fio2 DKA has resolved. Insulin dose changed to subcu. CT chest was done. Follow-up final culture report. Continue with oxygen supplementation 15 L via nasal cannula. Encourage oral intake. Pulmonary is on board. Time with Patient: Greater than 30
[2021-05-12] MEDS: LORazepam 2 MG/ML INJ IV PRN ×3 (01:38→17:27)
[2021-05-12 06:28] LABS: Glucose,Whole Blood 241 mg/dL (75-99)
[2021-05-12] MEDS: INSULIN ASPART (NovoLOG) 100 UNIT/ML VIAL SQ SCH ×4 (06:32→20:36)
[2021-05-12] MEDS: ONDANSETRON 4 MG/2 ML VIAL IVP PRN (06:32)
[2021-05-12] MEDS: INSULIN DETEMIR (LEVEMIR) 100 UNIT/ML SYR SQ SCH (06:33)
--- NOTE | 2021-05-12 08:25 | XR ---
EXAMINATION TYPE: XR chest 1V DATE OF EXAM: 05/12/2021 COMPARISON: 05/11/2021 HISTORY: 36 year-old female follow-up pneumonia TECHNIQUE: Single frontal view of the chest is obtained. FINDINGS: Continued extensive opacity throughout the left lung now increasing at the upper lobe as w ell. Right lung and pleural space are relatively clear. Multiple air bronchograms on the left. IMPRESSION: Worsening extensive opacity throughout the left lung.
[2021-05-12] MEDS: ALBUTEROL HFA INHALER INHALATION SCH ×4 (08:34→19:14)
[2021-05-12] MEDS: HEPARIN SODIUM,PORCINE/PF 5,000 UNIT/0.5 ML SYRINGE SQ SCH ×2 (08:55→20:50)
[2021-05-12] MEDS: PIPERACILLIN-TAZOBACTAM 3.375 GM in SODIUM CHLORIDE 0.9% 100 ML IVPB SCH ×3 (08:55→23:48)
[2021-05-12 10:25] LABS: African American GFR (CKD) >90 (>60 ml/min/1.73 sqM); Anion Gap 6 mmol/L; Blood Urea Nitrogen 5 mg/dL (7-17); Calcium 8.1 mg/dL (8.4-10.2); Carbon Dioxide 27 mmol/L (22-30); Chloride 104 mmol/L (98-107); Glucose 150 mg/dL (74-99); Non-African American GFR(CKD) >90 (>60 ml/min/1.73 sqM); Potassium 3.8 mmol/L (3.5-5.1); Sodium 137 mmol/L (137-145)
[2021-05-12 10:56] LABS: Glucose,Whole Blood 132 mg/dL (75-99)
[2021-05-12 12:27] LABS: Basophils % (A) 0 %; Eosinophils # (A) 0.1 k/uL (0-0.7); Eosinophils % (A) 0 %; HCT 29.3 % (34.0-46.0); Hypochromasia Moderate; Lymphocytes # (A) 0.8 k/uL (1.0-4.8); Lymphocytes % (A) 2 %; MCHC 30.8 g/dL (31.0-37.0); MCV 81.4 fL (80.0-100.0); Monocytes # (A) 1.1 k/uL (0-1.0); Monocytes % (A) 3 %; Neutrophils # (A) 36.1 k/uL (1.3-7.7); Neutrophils % (A) 94 %; Platelet Count 497 k/uL (150-450); Poikilocytosis Slight; RDW 14.4 % (11.5-15.5); WBC 38.3 k/uL (3.8-10.6)
[2021-05-12 16:53] LABS: Glucose,Whole Blood 51 mg/dL (75-99)
[2021-05-12 17:10] LABS: Glucose,Whole Blood 44 mg/dL (75-99)
[2021-05-12 17:10] LABS: Glucose,Whole Blood 46 mg/dL (75-99)
[2021-05-12] MEDS: PREGABALIN 75 MG CAP PO SCH ×2 (17:25→20:50)
[2021-05-12 17:27] LABS: Glucose,Whole Blood 86 mg/dL (75-99)
--- NOTE | 2021-05-12 18:59 | P.PN ---
Subjective Progress Note Date: 05/12/21 Principal diagnosis: Pneumonia. On 05/11/2021, the patient is being seen for a follow-up. The patient is doing well. A repeat chest x-ray was done today and shows some limited improvement in aeration of left lung consolidation. The patient is doing well. She remains on 15 L of oxygen by nasal cannula patient remains on a combination of Zosyn and Levaquin. The patient is also using incentive spirometer. She is on Levemir insulin 35 units daily and NovoLog extensive coverage. She is requesting for her diet to be advanced further. The patient otherwise doing well. The white cell count is currently up to 33 and her hemoglobin dropped down to 6.7. The patient has no signs of any bleeding. Hemoglobin has dropped significantly over the past 48 hours. No abdominal distention. No melanotic stool. No nausea or emesis or hematemesis for now. Meanwhile, the anion gap is currently at 7. Potassium level is at 3.4. The primary care team as recognized been drop in hemoglobin and the patient will be given a unit of packed RBC. We'll check also Hemoccult stool. Progress note dated 05/12/2021. The patient is again seen in room 366. Currently, she is on 6 L nasal cannula. She was diagnosed with a left-sided pneumonia, and started on Levaquin and Zosyn. She's getting saline at 20 mL an hour. White count 38.3, hemoglobin 9, hematocrit 29.3, and platelet count 497,000. Chest x-ray shows a worsening infiltrate over the left lung. Objective - Vital Signs Vital signs: Vital Signs Temp 97.6 F 05/12/21 17:25 Pulse 114 H 05/12/21 17:25 Resp 18 05/12/21 17:25 BP 99/66 05/12/21 17:25 Pulse Ox 93 L 05/12/21 17:25 Intake & Output 05/11/21 05/12/21 05/12/21 18:59 06:59 18:59 Intake Total 310 440 256 Output Total 850 5 Balance -540 440 251 Intake: Intake, IV Titration 200 Amount Levofloxacin 500Mg-D5w 100 Pmx 500 mg In Dextrose/ Water 1 100ml.bag @ 100 mls/hr IVPB Q24H [facility] Rx#: [id number] Piperacillin-Tazobactam 3 100 .375 gm In Sodium Chloride 0.9% 100 ml @ 25 mls/hr IVPB Q8HR [facility] Rx# :[id number] Oral 240 256 Blood Product 310 Rc As-1 Unit 310 [id number] Output: Urine 850 0 Urine/Stool Mix 5 Other: Voiding Method Bedside Commode Bedside Commode # Voids 2 - Exam No acute distress, oriented 3. No alka respiratory distress. The patient's currently on 6 L. The patient can speak in full sentences. HEENT examination is grossly unremarkable. Neck supple. Full range of motion. No adenopathy thyromegaly or neck vein distention. Cardiovascular examination reveals regular rhythm rate. S1-S2 normal. No S3 or S4. No discernible murmur noted. Heart rate 81 bpm. Lungs reveal coarse bilateral rhonchi. Abnormal breath sounds are worse on the left side than on the right. No wheezes. Scattered crackles are noted at the bases. Abdomen soft bowel sounds are heard. No masses or tenderness. Extremities are intact. No cyanosis clubbing or edema. Skin is without rash or lesion. Neurologic examination is brief but nonfocal. - Labs CBC & Chem 7: 05/12/21 11:27 05/12/21 09:23 Labs: Abnormal Lab Results - Last 24 Hours (Table) 05/11/21 05/12/21 05/12/21 Range/Units 20:10 06:25 09:23 WBC (3.8-10.6) k/uL RBC (3.80-5.40) m/uL Hgb (11.4-16.0) gm/dL Hct (34.0-46.0) % MCHC (31.0-37.0) g/dL Plt Count (150-450) k/uL Neutrophils # (1.3-7.7) k/uL Lymphocytes # (1.0-4.8) k/uL Monocytes # (0-1.0) k/uL BUN 5 L (7-17) mg/dL Creatinine 0.24 L (0.52-1.04) mg/dL Glucose 150 H (74-99) mg/dL POC Glucose (mg/dL) 199 H 241 H (75-99) mg/dL Calcium 8.1 L (8.4-10.2) mg/dL 05/12/21 05/12/21 05/12/21 Range/Units 10:54 11:27 16:51 WBC 38.3 H (3.8-10.6) k/uL RBC 3.60 L (3.80-5.40) m/uL Hgb 9.0 L D (11.4-16.0) gm/dL Hct 29.3 L (34.0-46.0) % MCHC 30.8 L (31.0-37.0) g/dL Plt Count 497 H (150-450) k/uL Neutrophils # 36.1 H (1.3-7.7) k/uL Lymphocytes # 0.8 L (1.0-4.8) k/uL Monocytes # 1.1 H (0-1.0) k/uL BUN (7-17) mg/dL Creatinine (0.52-1.04) mg/dL Glucose (74-99) mg/dL POC Glucose (mg/dL) 132 H 51 L (75-99) mg/dL Calcium (8.4-10.2) mg/dL 05/12/21 05/12/21 Range/Units 17:07 17:09 WBC (3.8-10.6) k/uL RBC (3.80-5.40) m/uL Hgb (11.4-16.0) gm/dL Hct (34.0-46.0) % MCHC (31.0-37.0) g/dL Plt Count (150-450) k/uL Neutrophils # (1.3-7.7) k/uL Lymphocytes # (1.0-4.8) k/uL Monocytes # (0-1.0) k/uL BUN (7-17) mg/dL Creatinine (0.52-1.04) mg/dL Glucose (74-99) mg/dL POC Glucose (mg/dL) 46 L 44 L (75-99) mg/dL Calcium (8.4-10.2) mg/dL Assessment and Plan Assessment: Acute hypoxemic respiratory failure secondary to left-sided pneumonia. Acute diabetic ketoacidosis, with an anion gap metabolic acidosis, resolved. History of severe leukocytosis secondary to pneumonia. Diabetes mellitus with diabetic retinopathy and neuropathy. Recent coronavirus infection, 2 weeks ago, hospitalized at [facility]. History of migraine cephalgia. History of anxiety/depression. Plan: Plan dated 05/12/2021. The patient is doing a bit better as she's been weaned down from 15 L high flow nasal O2, down to 6 L nasal cannula. She's receiving Levaquin and Zosyn as antibiotics. She's getting saline at 20 mL an hour. Urine is positive for methicillin-resistant staph aureus, group B strep, and E. coli. Infectious diseases should be consulted if not already consulted. We will continue to follow make recommendations were appropriate. Overall prognosis remains guarded . Chest x-ray is quite worrisome on the left side. Respiratory status though, is improved. Time with Patient: Less than 30
[2021-05-12 20:38] LABS: Glucose,Whole Blood 66 mg/dL (75-99)
[2021-05-12 20:53] LABS: Glucose,Whole Blood 99 mg/dL (75-99)
[2021-05-12] MEDS: LEVOFLOXACIN 500MG-D5W PMX 500 MG in DEXTROSE/WATER 1 100ML.BAG IVPB SCH (21:49)
[2021-05-13 01:57] LABS: Glucose,Whole Blood 108 mg/dL (75-99)
[2021-05-13] MEDS: ONDANSETRON 4 MG/2 ML VIAL IVP PRN (02:14)
[2021-05-13 05:59] LABS: Glucose,Whole Blood 159 mg/dL (75-99)
[2021-05-13] MEDS: INSULIN DETEMIR (LEVEMIR) 100 UNIT/ML SYR SQ SCH (06:29)
[2021-05-13] MEDS: INSULIN ASPART (NovoLOG) 100 UNIT/ML VIAL SQ SCH ×4 (06:29→20:47)
[2021-05-13] MEDS: ALBUTEROL HFA INHALER INHALATION SCH ×4 (08:00→20:47)
[2021-05-13] MEDS: PREGABALIN 75 MG CAP PO SCH ×3 (10:11→20:47)
[2021-05-13] MEDS: PIPERACILLIN-TAZOBACTAM 3.375 GM in SODIUM CHLORIDE 0.9% 100 ML IVPB SCH (10:11)
[2021-05-13] MEDS: HEPARIN SODIUM,PORCINE/PF 5,000 UNIT/0.5 ML SYRINGE SQ SCH ×2 (10:11→20:48)
--- NOTE | 2021-05-13 10:36 | P.PN ---
Subjective Progress Note Date: 05/12/21 Patient is a 36-year-old female with known history of diabetes type 1, chronic back pain, anxiety/depression physiology complains of nausea vomiting and generalized weakness. Patient felt very weak and dizzy and had near syncope. Patient is also complaining of body aches and pains. Denied any cough or sputum production. Patient was found to have elevated blood sugars in 400s lactic acid 2.5 and a stone positive. Chest x-ray showed there is left lower lobe pneumonia which is new compared to old exam. M.D. 747 CRP 36.7 Diabetes. 3.4 hemoglobin 10.5 and platelets 793 Patient is tachycardic and tachypneic on admission pulse ox 90% on 6 L oxygen via nasal cannula. Urinalysis showed cloudy with 4+ ketones and large leukocyte esterase and elevated WBCs 05/10/2021 Patient is currently in the [facility]. Awake alert and more oriented today. Requiring high flow oxygen at [address] of the chest was done yesterday showed extensive pulmonary infiltrates likely related to bronchopneumonia. Mild left pleural effusion. Antibiotics changed to broad-spectrum with Zosyn and Levaquin. Pulmonary is on board. Patient has been afebrile. Continue on insulin drip. Laboratory data WBC 28.9 hemoglobin 7.3 and platelets 582 Sodium 137 potassium 3.0 magnesium 1.5 BUN 5 and creatinine 0.33. COVID-19 PCR not detected. Urine culture showed gram-negative bacilli, presumptive staph and strep. 05/11/2020 Patient is currently resting in bed. Awake alert and oriented x3. Patient states that she feels better. No complaints of chest pain. Shortness of breath is getting better. Currently requiring 10 L of oxygen via nasal cannula. Patient is on antibiotics at home Levaquin and Zosyn. Patient became hypoglycemic with blood sugar in 20s last night. Levemir dose will be decreased. Continue with insulin sliding scale. Laboratory data showed WBC 33.1 hemoglobin 6.7 and platelets 507 Sodium 134 potassium 3.4 chloride 102 BUN 4 and creatinine 0.23 and blood sugar is 88 this morning. 05/12/2021 Patient is currently sitting in the bed. Awake alert and oriented x3. DKA has resolved and blood sugar is fairly controlled. Currently patient is requiring 8 L oxygen via nasal cannula titrated down to 6 L now. Patient is on broad-spectrum antibiotics in the form of Levaquin and Zosyn. Urine culture is growing MRSA, E. coli and strep agalactiae. ID service will be consulted. Continue to titrate down FiO2. Laboratory data showed WBC 38.3 hemoglobin 9.0 and platelets 497 BUN 5 and creatinine 0.24 and blood sugar is 150 calcium 8.1. Patient is also being treated for multifocal pneumonia. Does have cough with minimal sputum production. REVIEW OF SYSTEMS CONSTITUTIONAL: Denies fever or chills. CARDIOVASCULAR: Denies chest pain, orthopnea, PND or palpitations. RESPIRATORY: + cough. GASTROINTESTINAL: Denies abdominal pain, diarrhea, constipation, nausea or vomiting. MUSCULOSKELETAL: Denies myalgias. NEUROLOGIC: Denies numbness, tingling or weakness. ENDOCRINE: Denies fatigue, weight change, polydipsia or polyurina. GENITOURINARY: Denies burning, hematuria or urgency with micturation. HEMATOLOGIC: Denies history of anemia or bleeding. Current medications reviewed. Objective - Vital Signs Vital signs: Vital Signs Temp 97.5 F L 05/12/21 20:00 Pulse 115 H 05/12/21 20:00 Resp 22 05/12/21 20:00 BP 110/71 05/12/21 20:00 Pulse Ox 93 L 05/12/21 17:25 Intake & Output 05/12/21 05/12/21 05/13/21 06:59 18:59 06:59 Intake Total 440 256 Output Total 5 Balance 440 251 Intake: Intake, IV Titration 200 Amount Levofloxacin 500Mg-D5w 100 Pmx 500 mg In Dextrose/ Water 1 100ml.bag @ 100 mls/hr IVPB Q24H [facility] Rx#: [id number] Piperacillin-Tazobactam 3 100 .375 gm In Sodium Chloride 0.9% 100 ml @ 25 mls/hr IVPB Q8HR [facility] Rx# :[id number] Oral 240 256 Output: Urine 0 Urine/Stool Mix 5 Other: Voiding Method Bedside Commode Bedside Commode Bedside Commode # Voids 2 - Exam PHYSICAL EXAMINATION: Patient is lying in the bed comfortably, mild distress, awake alert and oriented.. HEENT: Normocephalic. Neck is supple. Pupils reactive. Nostrils clear. Oral cavity is moist. Neck reveals no JVD, carotid bruits, or thyromegaly. CHEST EXAMINATION: Trachea is central. Symmetrical expansion. Bilateral diminished sounds and coarse breath sounds.. CARDIAC: Normal S1, S2 with no gallops. No murmurs ABDOMEN: Soft. Bowel sounds normal. No organomegaly. No abdominal bruits. Extremities: reveal no edema. No clubbing or cyanosis Neurologically awake, alert, oriented x3 with well-coordinated movements. Lethargic and weak. No gross focal deficits noted Skin: No rash or skin lesions. Psychiatric: Coperative. Could not be assessed completely Musculoskeletal: No joint swelling or deformity. - Labs CBC & Chem 7: 05/12/21 11:27 05/12/21 09:23 Labs: Abnormal Lab Results - Last 24 Hours (Table) 05/12/21 05/12/21 05/12/21 Range/Units 06:25 09:23 10:54 WBC (3.8-10.6) k/uL RBC (3.80-5.40) m/uL Hgb (11.4-16.0) gm/dL Hct (34.0-46.0) % MCHC (31.0-37.0) g/dL Plt Count (150-450) k/uL Neutrophils # (1.3-7.7) k/uL Lymphocytes # (1.0-4.8) k/uL Monocytes # (0-1.0) k/uL BUN 5 L (7-17) mg/dL Creatinine 0.24 L (0.52-1.04) mg/dL Glucose 150 H (74-99) mg/dL POC Glucose (mg/dL) 241 H 132 H (75-99) mg/dL Calcium 8.1 L (8.4-10.2) mg/dL 05/12/21 05/12/21 05/12/21 Range/Units 11:27 16:51 17:07 WBC 38.3 H (3.8-10.6) k/uL RBC 3.60 L (3.80-5.40) m/uL Hgb 9.0 L D (11.4-16.0) gm/dL Hct 29.3 L (34.0-46.0) % MCHC 30.8 L (31.0-37.0) g/dL Plt Count 497 H (150-450) k/uL Neutrophils # 36.1 H (1.3-7.7) k/uL Lymphocytes # 0.8 L (1.0-4.8) k/uL Monocytes # 1.1 H (0-1.0) k/uL BUN (7-17) mg/dL Creatinine (0.52-1.04) mg/dL Glucose (74-99) mg/dL POC Glucose (mg/dL) 51 L 46 L (75-99) mg/dL Calcium (8.4-10.2) mg/dL 05/12/21 05/12/21 Range/Units 17:09 20:31 WBC (3.8-10.6) k/uL RBC (3.80-5.40) m/uL Hgb (11.4-16.0) gm/dL Hct (34.0-46.0) % MCHC (31.0-37.0) g/dL Plt Count (150-450) k/uL Neutrophils # (1.3-7.7) k/uL Lymphocytes # (1.0-4.8) k/uL Monocytes # (0-1.0) k/uL BUN (7-17) mg/dL Creatinine (0.52-1.04) mg/dL Glucose (74-99) mg/dL POC Glucose (mg/dL) 44 L 66 L (75-99) mg/dL Calcium (8.4-10.2) mg/dL Assessment and Plan Assessment: Acute diabetic ketoacidosis Bilateral multifocal pneumonia Acute hypoxic respiratory failure currently requiring 6 L-->15L--10L--6L oxygen via nasal cannula Acute urinary tract infection Sepsis secondary to above. Patient is tachycardic tachypneic and WBC 33 on admission Hypokalemia and hypomagnesemia replaced. chronic back pain Bilateral lower extremity diabetic peripheral neuropathy Anxiety/depression DVT prophylaxis with heparin subcu Plan: Patient is being treated with broad-spectrum antibiotics due to multifocal bronchopneumonia. titrate down Fio2 DKA has resolved. Insulin dose changed to subcu. CT chest was done. Final urine culture showed MRSA, E. coli and strep agalactiae ID was consulted. Continue with oxygen supplementation 15 L via nasal cannula. Encourage oral intake. Pulmonary is on board. Time with Patient: Greater than 30
[2021-05-13 11:33] LABS: Basophils % (A) 0 %; Eosinophils % (A) 0 %; HCT 31.6 % (34.0-46.0); HGB 9.6 gm/dL (11.4-16.0); Hypochromasia Marked; Lymphocytes # (A) 0.9 k/uL (1.0-4.8); Lymphocytes % (A) 4 %; MCH 25.1 pg (25.0-35.0); MCHC 30.3 g/dL (31.0-37.0); MCV 82.6 fL (80.0-100.0); Mean Platelet Volume 7.6; Monocytes # (A) 0.9 k/uL (0-1.0); Monocytes % (A) 4 %; Neutrophils # (A) 23.2 k/uL (1.3-7.7); Neutrophils % (A) 92 %; Platelet Count 499 k/uL (150-450); Poikilocytosis Slight; RBC 3.82 m/uL (3.80-5.40); RDW 14.6 % (11.5-15.5); WBC 25.1 k/uL (3.8-10.6)
[2021-05-13] MEDS ORDERED: VANCOMYCIN IV PER PHARMACY 1 EACH MISC MISCELLANE PRN (11:35)
[2021-05-13 11:42] LABS: African American GFR (CKD) >90 (>60 ml/min/1.73 sqM); Anion Gap 6 mmol/L; Blood Urea Nitrogen 2 mg/dL (7-17); Calcium 7.9 mg/dL (8.4-10.2); Carbon Dioxide 29 mmol/L (22-30); Chloride 101 mmol/L (98-107); Glucose 164 mg/dL (74-99); Non-African American GFR(CKD) >90 (>60 ml/min/1.73 sqM); Sodium 136 mmol/L (137-145)
[2021-05-13 11:55] LABS: Glucose,Whole Blood 143 mg/dL (75-99)
[2021-05-13] MEDS ORDERED: LOPERAMIDE 2 MG CAP PO STA (12:35)
--- NOTE | 2021-05-13 15:53 | P.PN ---
Subjective Progress Note Date: 05/13/21 Principal diagnosis: Pneumonia. On 05/11/2021, the patient is being seen for a follow-up. The patient is doing well. A repeat chest x-ray was done today and shows some limited improvement in aeration of left lung consolidation. The patient is doing well. She remains on 15 L of oxygen by nasal cannula patient remains on a combination of Zosyn and Levaquin. The patient is also using incentive spirometer. She is on Levemir insulin 35 units daily and NovoLog extensive coverage. She is requesting for her diet to be advanced further. The patient otherwise doing well. The white cell count is currently up to 33 and her hemoglobin dropped down to 6.7. The patient has no signs of any bleeding. Hemoglobin has dropped significantly over the past 48 hours. No abdominal distention. No melanotic stool. No nausea or emesis or hematemesis for now. Meanwhile, the anion gap is currently at 7. Potassium level is at 3.4. The primary care team as recognized been drop in hemoglobin and the patient will be given a unit of packed RBC. We'll check also Hemoccult stool. Progress note dated 05/12/2021. The patient is again seen in room 366. Currently, she is on 6 L nasal cannula. She was diagnosed with a left-sided pneumonia, and started on Levaquin and Zosyn. She's getting saline at 20 mL an hour. White count 38.3, hemoglobin 9, hematocrit 29.3, and platelet count 497,000. Chest x-ray shows a worsening infiltrate over the left lung. Progress note dated 05/13/2021. The patient is again seen today in room 366. Clinically, she states that she feels better. She remains on 6 L high flow nasal cannula. Saturations are in the mid 90s. Her urine is showing significant abnormalities including methicillin-resistant staph aureus, Escherichia coli, and group B streptococcus. The patient is not receiving IV fluids. White count is 25.1, hemoglobin 9.6, hematocrit 31.6, and platelet count 499,000. Sodium 136, potassium 3, chlorides 101, CO2 29, anion gap 6, BUN 2, and creatinine 0.29. The patient is currently on vancomycin and Levaquin. The chest x-ray from May 12 was reviewed yesterday. Objective - Vital Signs Vital signs: Vital Signs Temp 98.8 F 05/13/21 10:10 Pulse 122 H 05/13/21 10:10 Resp 20 05/13/21 10:10 BP 115/70 05/13/21 10:10 Pulse Ox 92 L 05/13/21 10:10 Intake & Output 05/12/21 05/13/21 05/13/21 18:59 06:59 18:59 Intake Total 256 540 Output Total 5 650 550 Balance 251 -650 -10 Intake: Oral 256 540 Output: Urine 0 650 550 Urine/Stool Mix 5 Other: Voiding Method Bedside Commode Bedside Commode Bedside Commode # Voids 1 - Exam No acute distress, oriented 3. No alka respiratory distress. The patient's currently on 6 L. The patient can speak in full sentences. HEENT examination is grossly unremarkable. Neck supple. Full range of motion. No adenopathy thyromegaly or neck vein distention. Cardiovascular examination reveals regular rhythm rate. S1-S2 normal. No S3 or S4. No discernible murmur noted. Heart rate 100 bpm. Lungs reveal coarse bilateral rhonchi. Abnormal breath sounds are worse on the left side than on the right. No wheezes. Scattered crackles are noted at the bases. Saturations are 92% to 95% on 6 L high flow cannula. Abdomen soft bowel sounds are heard. No masses or tenderness. Extremities are intact. No cyanosis clubbing or edema. Skin is without rash or lesion. Neurologic examination is brief but nonfocal. - Labs CBC & Chem 7: 05/13/21 10:59 05/13/21 10:59 Labs: Abnormal Lab Results - Last 24 Hours (Table) 05/12/21 05/12/21 05/12/21 Range/Units 16:51 17:07 17:09 WBC (3.8-10.6) k/uL Hgb (11.4-16.0) gm/dL Hct (34.0-46.0) % MCHC (31.0-37.0) g/dL Plt Count (150-450) k/uL Neutrophils # (1.3-7.7) k/uL Lymphocytes # (1.0-4.8) k/uL Sodium (137-145) mmol/L Potassium (3.5-5.1) mmol/L BUN (7-17) mg/dL Creatinine (0.52-1.04) mg/dL Glucose (74-99) mg/dL POC Glucose (mg/dL) 51 L 46 L 44 L (75-99) mg/dL Calcium (8.4-10.2) mg/dL 05/12/21 05/13/21 05/13/21 Range/Units 20:31 01:55 05:54 WBC (3.8-10.6) k/uL Hgb (11.4-16.0) gm/dL Hct (34.0-46.0) % MCHC (31.0-37.0) g/dL Plt Count (150-450) k/uL Neutrophils # (1.3-7.7) k/uL Lymphocytes # (1.0-4.8) k/uL Sodium (137-145) mmol/L Potassium (3.5-5.1) mmol/L BUN (7-17) mg/dL Creatinine (0.52-1.04) mg/dL Glucose (74-99) mg/dL POC Glucose (mg/dL) 66 L 108 H 159 H (75-99) mg/dL Calcium (8.4-10.2) mg/dL 05/13/21 05/13/21 05/13/21 Range/Units 10:59 10:59 11:48 WBC 25.1 H (3.8-10.6) k/uL Hgb 9.6 L (11.4-16.0) gm/dL Hct 31.6 L (34.0-46.0) % MCHC 30.3 L (31.0-37.0) g/dL Plt Count 499 H (150-450) k/uL Neutrophils # 23.2 H (1.3-7.7) k/uL Lymphocytes # 0.9 L (1.0-4.8) k/uL Sodium 136 L (137-145) mmol/L Potassium 3.0 L (3.5-5.1) mmol/L BUN 2 L (7-17) mg/dL Creatinine 0.29 L (0.52-1.04) mg/dL Glucose 164 H (74-99) mg/dL POC Glucose (mg/dL) 143 H (75-99) mg/dL Calcium 7.9 L (8.4-10.2) mg/dL Assessment and Plan Assessment: Acute hypoxemic respiratory failure secondary to left-sided pneumonia. Acute diabetic ketoacidosis, with an anion gap metabolic acidosis, resolved. History of severe leukocytosis secondary to pneumonia. Diabetes mellitus with diabetic retinopathy and neuropathy. Recent coronavirus infection, 2 weeks ago, hospitalized at [facility]. History of migraine cephalgia. History of anxiety/depression. Plan: Plan dated 05/12/2021. The patient is doing a bit better as she's been weaned down from 15 L high flow nasal O2, down to 6 L nasal cannula. She's receiving Levaquin and Zosyn as antibiotics. She's getting saline at 20 mL an hour. Urine is positive for methicillin-resistant staph aureus, group B strep, and E. coli. Infectious diseases should be consulted if not already consulted. We will continue to follow make recommendations were appropriate. Overall prognosis remains guarded. Chest x-ray is quite worrisome on the left side. Respiratory status though, is improved. Plan dated 05/13/2021. The patient's on 6 L nasal cannula. Saturations are in the mid 90s. She remains on Levaquin and vancomycin. Urine is showing methicillin-resistant staph aureus, Escherichia coli, and group B streptococcus. We will continue to follow make recommendations where appropriate. Chest x-ray from yesterday was reviewed. Clinically, the patient looks relatively stable despite the worsening chest x-ray pattern. Prognosis is guarded. Repeat chest x-ray in the morning. Time with Patient: Less than 30
[2021-05-13] MEDS ORDERED: POTASSIUM CHLORIDE ER 20 MEQ TAB.ER PO STA (16:06)
[2021-05-13] MEDS: VANCOMYCIN 750 MG in SODIUM CHLORIDE 0.9% 250 ML IVPB SCH ×2 (16:09→20:47)
[2021-05-13] MEDS: METOPROLOL TARTRATE 12.5 MG TAB PO SCH ×2 (16:09→20:48)
--- NOTE | 2021-05-13 16:28 | XR ---
EXAMINATION TYPE: XR chest 1V portable DATE OF EXAM: 05/13/2021 CLINICAL HISTORY: Difficulty breathing progress study. TECHNIQUE: Single AP portable upright view of the chest is obtained. COMPARISON: Chest x-ray from one day earlier and older studies. CT chest 4 days ago. FINDINGS: Persistent small left pleural effusion with worsening left lung consolidation. Posterior-s uperior right lower lobe consolidation on CT less well seen on plain film. No new mediastinal shift. Silhouetting left heart border redemonstrated. IMPRESSION: Continued worsening left lung pneumonic consolidation with associated small left pleural effusion.
[2021-05-13] MEDS: POTASSIUM CHLORIDE 10 MEQ in WATER FOR INJECTION 1 100ML.BAG IVPB SCH ×2 (18:23→23:48)
[2021-05-13 18:27] LABS: Glucose,Whole Blood 86 mg/dL (75-99)
[2021-05-13 19:21] LABS: Glucose,Whole Blood 82 mg/dL (75-99)
--- NOTE | 2021-05-13 21:59 | CT ---
EXAMINATION TYPE: CT angio chest DATE OF EXAM: 05/13/2021 COMPARISON: CT chest 05/09/2021 HISTORY: sob CT DLP: 169.7 mGycm Automated exposure control for dose reduction was used. CONTRAST: Performed with IV Contrast, patient injected with 100 mL of Isovue 370. There are Three-D postprocessed images. There is extensive airspace consolidation throughout the left lung. There is almost complete opacific ation of the left hemithorax. There is a posterior right lower lobe consolidation and atelectasis. Thoracic aorta is intact. There is no aneurysm or dissection. There is no evidence of filling defect in the pulmonary arteries. Heart size is normal. There is no pericardial effusion. The bony thorax is intact. Upper abdominal soft tissues are intact. IMPRESSION: No evidence of pulmonary embolism. Extensive pneumonic consolidation as above that has progressed on the left side compared to last exam. Right lower lobe consolidation slightly increased.
[2021-05-13] MEDS: LEVOFLOXACIN 500MG-D5W PMX 500 MG in DEXTROSE/WATER 1 100ML.BAG IVPB SCH (22:02)
[2021-05-14] MEDS: VANCOMYCIN 750 MG in SODIUM CHLORIDE 0.9% 250 ML IVPB SCH ×3 (03:57→19:50)
[2021-05-14 06:15] LABS: Glucose,Whole Blood 325 mg/dL (75-99)
[2021-05-14] MEDS: INSULIN DETEMIR (LEVEMIR) 100 UNIT/ML SYR SQ SCH (06:28)
[2021-05-14] MEDS: INSULIN ASPART (NovoLOG) 100 UNIT/ML VIAL SQ SCH ×4 (06:28→19:56)
[2021-05-14 07:19] LABS: ALT 7 U/L (4-34); AST 17 U/L (14-36); African American GFR (CKD) >90 (>60 ml/min/1.73 sqM); Albumin 1.8 g/dL (3.5-5.0); Alkaline Phosphatase 144 U/L (38-126); Anion Gap 7 mmol/L; Blood Urea Nitrogen 4 mg/dL (7-17); Calcium 7.2 mg/dL (8.4-10.2); Carbon Dioxide 22 mmol/L (22-30); Chloride 105 mmol/L (98-107); Glucose 292 mg/dL (74-99); Non-African American GFR(CKD) >90 (>60 ml/min/1.73 sqM); Potassium 3.7 mmol/L (3.5-5.1); Sodium 134 mmol/L (137-145); Total Bilirubin 0.5 mg/dL (0.2-1.3); Total Protein 5.2 g/dL (6.3-8.2)
[2021-05-14] MEDS: HEPARIN SODIUM,PORCINE/PF 5,000 UNIT/0.5 ML SYRINGE SQ SCH ×2 (07:54→19:50)
[2021-05-14] MEDS: METOPROLOL TARTRATE 12.5 MG TAB PO SCH ×2 (07:55→19:50)
[2021-05-14] MEDS: PREGABALIN 75 MG CAP PO SCH ×3 (07:55→21:43)
[2021-05-14] MEDS: ALBUTEROL HFA INHALER INHALATION SCH ×4 (10:48→21:12)
[2021-05-14 11:05] LABS: Glucose,Whole Blood 186 mg/dL (75-99)
[2021-05-14 11:07] VITALS: BMI 15.2
--- NOTE | 2021-05-14 12:50 | P.CONS ---
History of Present Illness - Reason for Consult Consult date: 05/13/21 MRSA UTI Requesting physician: Jessica Pena - Chief Complaint Vomiting and diarrhea x few days - History of Present Illness History of Present Illness : Patient is a 36-year-old female presenting to the ER on May 09, 2021 with a past medical history patient for diabetes mellitus diabetic neuropathy on insulin pump and recently recovered from the covid19 infection patient presenting to the ER for evaluation nausea vomiting dizziness and lightheadedness with the syncope this patient symptom has been going on for a day or 2 before she presented to hospital patient denies having significant bowel pain some epigastric scope for the he denies having any chest pain or shortness breath minimal cough with the center the patient has been evaluated by the ER physician on arrival to the ER patient was afebrile she did have a low-grade fever 100.7 this afternoon though patient was hypoxic and is currently on supplemental nasal oxygen patient did have elevated white count on admission of 33.5 it is down to 25.1 today. Creatinine has been normal 100 exams are normal parkinsonism elevated 0.62 patient did have a positive UA ling PCR was negative urine cultures: Positive for MRSA E. coli and streptococci collected respiratory this infectious disease consultation patient did have a chest x-ray on admission left lower lobe pneumonia new compared to old exam patient did have a CT of the chest extensive pulmonary infiltrate likely group of pneumonia with mild left pleural effusion and the patient has been treated with Zosyn and Levaquin Review of system: CONSTITUTIONAL: Positive for weakness low-grade fever. EYES: No complaint. ENT: No complaint. RESPIRATORY: As per history of present illness. CARDIOVASCULAR: No complaint. GENITOURINARY: As per history of present illness. GASTROINTESTINAL: As per history of present illness. MUSCULOSKELETAL: No complaint. INTEGUMENTARY : No complaint. PSYCHOLOGIC: No complaint. ENDOCRINE: No complaint. NEUROLOGIC: No complaint. Past medical history : Reviewed, documented below Past surgical history : Reviewed, documented below Social history: Reviewed, documented below Medications: Reviewed, as documented below EXAMINATION: Vital sigans= Reviewed and documented below GENERAL DESCRIPTION: Middle-aged female lying in bed, no distress. No tachypnea or accessory muscle of respiration use. HEENT: Shows Pallor , no scleral icterus. Oral mucous membrane is dry. NECK: Trachea central, no thyromegaly. LUNGS: Unlabored breathing. Decreased breath sound the base. No wheeze or crackle. HEART: S1, S2, regular rate and rhythm. ABDOMEN: Soft, no tenderness , guarding or rigidity EXTREMITIES: No edema feet SKIN: No rash, no masses palpable. NEUROLOGICAL: The patient is awake, alert, oriented x3, mood and affect normal. LABS AND RADIOLOGY: Reviewed results see below Assessment : Patient presented to hospital with acute nausea vomiting diarrhea could be related to the DKA in this patient did have mildly positive UA with urine now showing MRSA could be the likely infection and the patient did have a fever not getting any antibiotics specific for the MRSA, the question of left- sided pneumonia versus effusion the patient currently do not have significant cough and sputum production Plan: 1-vancomycin pharmacy to dose target trough of 15 while watching kidney function and vancomycin trough closely 2-UA and cultures has been requested to be repeated 3-continue with the Levaquin for now however discontinue Zosyn to decrease risk of nephrotoxicity with concomitant vancomycin use We will follow on clinical condition and cultures to further adjust medication if needed Thank you for this consultation we will follow the patient along with you Past Medical History Past Medical History: Diabetes Mellitus, Syncope Additional Past Medical History / Comment(s): IDDM type I, neuropathy bilateral legs/feet, chronic low back pain, bilateral leg pain, migraines, hx chronic constipation. Hx HPV. Having diarrhea with any intake of food, chronic History of Any Multi-Drug Resistant Organisms: MRSA Year Discovered:: 02/15/19 MDRO Source:: Head Past Surgical History: Tubal Ligation, Uterine Ablation Additional Past Surgical History / Comment(s): 12/22/17 colonoscopy, LAPAROSCOPIC REMOVAL Rt TUBE AND OVARY d/t endometriosis, D&C, HYSTEROSCOPY, NOVASURE ABLATION 2015. Past Anesthesia/Blood Transfusion Reactions: No Reported Reaction Additional Past Anesthesia/Blood Transfusion Reaction / Comm: HAD MULTI INJ FOR DENTAL WORK, NOVACAINE WAS INEFFECTIVE. Past Psychological History: Anxiety, Depression Smoking Status: Never smoker Past Alcohol Use History: None Reported Past Drug Use History: None Reported - Past Family History Mother Family Medical History: No Reported History, Rheumatoid Arthritis (RA) Additional Family Medical History / Comment(s): Mother is 63 yrs old. Father Family Medical History: Cancer, Diabetes Mellitus, Deep Vein Thrombosis (DVT), Hypertension Additional Family Medical History / Comment(s): THROAT CA- of but pt does not know at what age. Medications and Allergies Home Medications Medication Instructions Recorded Confirmed Type Escitalopram [Lexapro] 20 mg PO DAILY 04/26/20 05/09/21 History Omeprazole 20 mg PO DAILY 11/14/20 05/09/21 History ALPRAZolam [Xanax] 0.25 mg PO DAILY PRN 05/09/21 05/09/21 History Amitriptyline HCl [Elavil] 10 mg PO HS 05/09/21 05/09/21 History Cholecalciferol [Vitamin D3 (25 50 mcg PO DAILY 05/09/21 05/09/21 History Mcg = 1000 Iu)] INSULIN LISPRO (humaLOG) [humaLOG] 40 units SQ AC-TID 05/09/21 05/09/21 History INSULIN LISPRO (humaLOG) [humaLOG] See Protocol SQ AC-TID 05/09/21 05/09/21 History Insulin Detemir [Levemir Flextouch 35 units SQ HS 05/09/21 05/09/21 History Pen] Montelukast [Singulair] 10 mg PO HS 05/09/21 05/09/21 History Rizatriptan Odt [Maxalt [employer]] 10 mg PO DAILY PRN 05/09/21 05/09/21 History Zinc 50 mg PO DAILY 05/09/21 05/09/21 History lisinopriL [Zestril] 2.5 mg PO DAILY 05/09/21 05/09/21 History tiZANidine [Zanaflex] 4 mg PO BID PRN 05/09/21 05/09/21 History Allergies Allergy/AdvReac Type Severity Reaction Status Date / Time No Known Allergies Allergy Verified 05/09/21 08:42 Physical Exam Vitals: Vital Signs Temp Pulse Resp BP Pulse Ox 05/13/21 20:52 96 05/13/21 12:00 100.7 F H 128 H 20 111/60 84 L 05/13/21 10:10 98.8 F 122 H 20 115/70 92 L 05/13/21 04:55 116 H 19 109/81 95 05/12/21 23:55 98 F 120 H 18 92/55 96 Intake and Output 05/13/21 05/13/21 05/13/21 06:59 14:59 22:59 Intake Total 540 222 Output Total 650 550 Balance -650 -10 222 Intake: Oral 540 222 Output: Urine 650 550 Other: Voiding Method Bedside Commode Bedside Commode # Voids 1 Results CBC & Chem 7: 05/13/21 10:59 05/14/21 06:03 Labs: Abnormal Lab Results - Last 24 Hours (Table) 05/13/21 05/13/21 05/13/21 Range/Units 01:55 05:54 10:59 WBC 25.1 H (3.8-10.6) k/uL Hgb 9.6 L (11.4-16.0) gm/dL Hct 31.6 L (34.0-46.0) % MCHC 30.3 L (31.0-37.0) g/dL Plt Count 499 H (150-450) k/uL Neutrophils # 23.2 H (1.3-7.7) k/uL Lymphocytes # 0.9 L (1.0-4.8) k/uL Sodium (137-145) mmol/L Potassium (3.5-5.1) mmol/L BUN (7-17) mg/dL Creatinine (0.52-1.04) mg/dL Glucose (74-99) mg/dL POC Glucose (mg/dL) 108 H 159 H (75-99) mg/dL Calcium (8.4-10.2) mg/dL 05/13/21 05/13/21 Range/Units 10:59 11:48 WBC (3.8-10.6) k/uL Hgb (11.4-16.0) gm/dL Hct (34.0-46.0) % MCHC (31.0-37.0) g/dL Plt Count (150-450) k/uL Neutrophils # (1.3-7.7) k/uL Lymphocytes # (1.0-4.8) k/uL Sodium 136 L (137-145) mmol/L Potassium 3.0 L (3.5-5.1) mmol/L BUN 2 L (7-17) mg/dL Creatinine 0.29 L (0.52-1.04) mg/dL Glucose 164 H (74-99) mg/dL POC Glucose (mg/dL) 143 H (75-99) mg/dL Calcium 7.9 L (8.4-10.2) mg/dL
--- NOTE | 2021-05-14 15:26 | P.PN ---
Subjective Progress Note Date: 05/14/21 Principal diagnosis: Pneumonia. On 05/11/2021, the patient is being seen for a follow-up. The patient is doing well. A repeat chest x-ray was done today and shows some limited improvement in aeration of left lung consolidation. The patient is doing well. She remains on 15 L of oxygen by nasal cannula patient remains on a combination of Zosyn and Levaquin. The patient is also using incentive spirometer. She is on Levemir insulin 35 units daily and NovoLog extensive coverage. She is requesting for her diet to be advanced further. The patient otherwise doing well. The white cell count is currently up to 33 and her hemoglobin dropped down to 6.7. The patient has no signs of any bleeding. Hemoglobin has dropped significantly over the past 48 hours. No abdominal distention. No melanotic stool. No nausea or emesis or hematemesis for now. Meanwhile, the anion gap is currently at 7. Potassium level is at 3.4. The primary care team as recognized been drop in hemoglobin and the patient will be given a unit of packed RBC. We'll check also Hemoccult stool. Progress note dated 05/12/2021. The patient is again seen in room 366. Currently, she is on 6 L nasal cannula. She was diagnosed with a left-sided pneumonia, and started on Levaquin and Zosyn. She's getting saline at 20 mL an hour. White count 38.3, hemoglobin 9, hematocrit 29.3, and platelet count 497,000. Chest x-ray shows a worsening infiltrate over the left lung. Progress note dated 05/13/2021. The patient is again seen today in room 366. Clinically, she states that she feels better. She remains on 6 L high flow nasal cannula. Saturations are in the mid 90s. Her urine is showing significant abnormalities including methicillin-resistant staph aureus, Escherichia coli, and group B streptococcus. The patient is not receiving IV fluids. White count is 25.1, hemoglobin 9.6, hematocrit 31.6, and platelet count 499,000. Sodium 136, potassium 3, chlorides 101, CO2 29, anion gap 6, BUN 2, and creatinine 0.29. The patient is currently on vancomycin and Levaquin. The chest x-ray from May 12 was reviewed yesterday. Progress note dated 05/14/2021. This is a 36-year-old female, who is again seen in room 366. Currently, she is doing well. Other than cough, she really denies all complaints. She's not short of breath despite being on 8 L nasal cannula. She is getting saline at 20 mL an hour. She was admitted with a diagnosis of pneumonia, and the left lung. In addition, the urine was significant, showing methicillin-resistant staph aureus, Escherichia coli, and group B streptococcus. The patient is currently on vancomycin and Levaquin. Sodium 134, potassium 3.7, chlorides 105, CO2 22, anion gap 7, BUN 4, creatinine 0.27. Albumin 1.8. A CT angiogram shows no evidence of pulmonary embolism. Pneumonic process, and the left lung, is significant, with near complete opacification of the left hemithorax. Objective - Vital Signs Vital signs: Vital Signs Temp 97.4 F L 05/14/21 11:45 Pulse 102 H 05/14/21 11:45 Resp 18 05/14/21 11:45 BP 116/73 05/14/21 11:45 Pulse Ox 99 05/14/21 11:45 Intake & Output 05/13/21 05/14/21 05/14/21 18:59 06:59 18:59 Intake Total 762 Output Total 550 600 Balance 212 -600 Weight 36.5 kg Intake: Oral 762 Output: Urine 550 600 Other: Voiding Method Bedside Commode Bedside Commode Bedside Commode # Voids 1 3 1 # Bowel Movements 3 1 - Exam No acute distress, oriented 3. No alka respiratory distress. The patient's currently on 8 L. The patient can speak in full sentences. HEENT examination is grossly unremarkable. Neck supple. Full range of motion. No adenopathy thyromegaly or neck vein distention. Cardiovascular examination reveals regular rhythm rate. S1-S2 normal. No S3 or S4. No discernible murmur noted. Heart rate 102 bpm. Lungs reveal coarse bilateral rhonchi. Abnormal breath sounds are worse on the left side than on the right. No wheezes. Scattered crackles are noted at the bases. Saturations are 99% on 8 L high flow nasal cannula. Abdomen soft bowel sounds are heard. No masses or tenderness. Extremities are intact. No cyanosis clubbing or edema. Skin is without rash or lesion. Neurologic examination is brief but nonfocal. - Labs CBC & Chem 7: 05/13/21 10:59 05/14/21 06:03 Labs: Abnormal Lab Results - Last 24 Hours (Table) 05/14/21 05/14/21 05/14/21 Range/Units 06:03 06:11 11:04 Sodium 134 L (137-145) mmol/L BUN 4 L (7-17) mg/dL Creatinine 0.27 L (0.52-1.04) mg/dL Glucose 292 H (74-99) mg/dL POC Glucose (mg/dL) 325 H 186 H (75-99) mg/dL Calcium 7.2 L (8.4-10.2) mg/dL Alkaline Phosphatase 144 H (38-126) U/L Total Protein 5.2 L (6.3-8.2) g/dL Albumin 1.8 L (3.5-5.0) g/dL Assessment and Plan Assessment: Acute hypoxemic respiratory failure secondary to left-sided pneumonia. Acute diabetic ketoacidosis, with an anion gap metabolic acidosis, resolved. History of severe leukocytosis secondary to pneumonia. Diabetes mellitus with diabetic retinopathy and neuropathy. Recent coronavirus infection, 2 weeks ago, hospitalized at [facility]. History of migraine cephalgia. History of anxiety/depression. Plan: Plan dated 05/12/2021. The patient is doing a bit better as she's been weaned down from 15 L high flow nasal O2, down to 6 L nasal cannula. She's receiving Levaquin and Zosyn as antibiotics. She's getting saline at 20 mL an hour. Urine is positive for methicillin-resistant staph aureus, group B strep, and E. coli. Infectious diseases should be consulted if not already consulted. We will continue to follow make recommendations were appropriate. Overall prognosis remains guarded. Chest x-ray is quite worrisome on the left side. Respiratory status though, is improved. Plan dated 05/13/2021. The patient's on 6 L nasal cannula. Saturations are in the mid 90s. She remains on Levaquin and vancomycin. Urine is showing methicillin-resistant staph aureus, Escherichia coli, and group B streptococcus. We will continue to follow make recommendations where appropriate. Chest x-ray from yesterday was reviewed. Clinically, the patient looks relatively stable despite the worsening chest x-ray pattern. Prognosis is guarded. Repeat chest x-ray in the morning. Plan dated 05/14/2021. The patient's currently on 8 L high flow nasal cannula. The patient's getting saline at 20 mL an hour. The patient remains on Levaquin and vancomycin. Urine was positive for methicillin-resistant staph aureus, Escherichia coli, and group B streptococcus. CAT scan is reviewed. Extensive consolidation on the left side, smaller infiltrate in the right lung. The patient may benefit from bronchoscopy. We'll discuss that with her. Clinically she is very stable. She denies being short of breath. She does have a dry nonproductive cough. No fever or chills. Time with Patient: Less than 30
[2021-05-14 16:28] LABS: Glucose,Whole Blood 82 mg/dL (75-99)
[2021-05-14 18:31] LABS: Appearance,Urine Clear (Clear); Bilirubin,Urine Negative (Negative); Blood,Urine Negative (Negative); Color,Urine Light Yellow; Glucose,Urine (UA) Trace (Negative); Ketones,Urine Negative (Negative); Leukocyte Esterase,Urine Negative (Negative); Nitrite,Urine Negative (Negative); PH, Urine 5.5 (5.0-8.0); Protein,Urine Negative (Negative); Specific Gravity,Urine 1.003 (1.001-1.035); Urobilinogen,Urine <2.0 mg/dL (<2.0)
[2021-05-14] MEDS: LOPERAMIDE 2 MG CAP PO PRN (18:53)
[2021-05-14] MEDS: LEVOFLOXACIN 500MG-D5W PMX 500 MG in DEXTROSE/WATER 1 100ML.BAG IVPB SCH (18:53)
[2021-05-14] MEDS ORDERED: VANCOMYCIN TROUGH DUE 1 EACH MISC MISCELLANE ONE (19:00)
[2021-05-14 19:52] LABS: Glucose,Whole Blood 372 mg/dL (75-99)
--- NOTE | 2021-05-14 22:55 | PN ---
PROGRESS NOTE DATE OF SERVICE: 05/14/2021 REASON FOR FOLLOWUP: 1. MRSA positive urine culture. 2. Pneumonia. INTERVAL HISTORY: Patient is afebrile. The patient is breathing slightly comfortably. Denies having any chest pain or shortness of breath. He did have a cough, not bringing up any sputum. No vomiting. No abdominal pain. No diarrhea. PHYSICAL EXAMINATION: Blood pressure 111/77 with a pulse of 112, temperature is 97.9, she is 95% on 5 L nasal cannula. General description is a middle-aged female up in the bed in no distress. Respiratory system: Unlabored breathing. Decreased intensity in breath sounds. No wheeze. Heart S1, S2. Regular rate and rhythm. Abdomen soft, no tenderness. Extremities: No edema of the feet. LABS: Repeat urine is negative. The patient did have a CT angiogram of the chest that was negative for PE, shows increasing right lower lobe pneumonia. DIAGNOSTIC IMPRESSION AND PLAN: 1. Patient with positive urine culture with multiple pathogen including MRSA, possible contaminant as the patient did have a repeat urine essentially clear. We will discontinue vancomycin. 2. Patient now with worsening pneumonia in the right lower lobe, possible contaminant. We will add Zosyn. Try to obtain a sputum to narrow down antibiotics and monitor clinical course closely. MMODL / IJN: [id number] /
--- NOTE | 2021-05-14 23:48 | P.PN ---
Subjective Progress Note Date: 05/13/21 Patient is a 36-year-old female with known history of diabetes type 1, chronic back pain, anxiety/depression physiology complains of nausea vomiting and generalized weakness. Patient felt very weak and dizzy and had near syncope. Patient is also complaining of body aches and pains. Denied any cough or sputum production. Patient was found to have elevated blood sugars in 400s lactic acid 2.5 and a stone positive. Chest x-ray showed there is left lower lobe pneumonia which is new compared to old exam. M.D. 747 CRP 36.7 Diabetes. 3.4 hemoglobin 10.5 and platelets 793 Patient is tachycardic and tachypneic on admission pulse ox 90% on 6 L oxygen via nasal cannula. Urinalysis showed cloudy with 4+ ketones and large leukocyte esterase and elevated WBCs 05/10/2021 Patient is currently in the select care unit. Awake alert and more oriented today. Requiring high flow oxygen at [address] of the chest was done yesterday showed extensive pulmonary infiltrates likely related to bronchopneumonia. Mild left pleural effusion. Antibiotics changed to broad-spectrum with Zosyn and Levaquin. Pulmonary is on board. Patient has been afebrile. Continue on insulin drip. Laboratory data WBC 28.9 hemoglobin 7.3 and platelets 582 Sodium 137 potassium 3.0 magnesium 1.5 BUN 5 and creatinine 0.33. COVID-19 PCR not detected. Urine culture showed gram-negative bacilli, presumptive staph and strep. 05/11/2020 Patient is currently resting in bed. Awake alert and oriented x3. Patient states that she feels better. No complaints of chest pain. Shortness of breath is getting better. Currently requiring 10 L of oxygen via nasal cannula. Patient is on antibiotics at home Levaquin and Zosyn. Patient became hypoglycemic with blood sugar in 20s last night. Levemir dose will be decreased. Continue with insulin sliding scale. Laboratory data showed WBC 33.1 hemoglobin 6.7 and platelets 507 Sodium 134 potassium 3.4 chloride 102 BUN 4 and creatinine 0.23 and blood sugar is 88 this morning. 05/12/2021 Patient is currently sitting in the bed. Awake alert and oriented x3. DKA has resolved and blood sugar is fairly controlled. Currently patient is requiring 8 L oxygen via nasal cannula titrated down to 6 L now. Patient is on broad-spectrum antibiotics in the form of Levaquin and Zosyn. Urine culture is growing MRSA, E. coli and strep agalactiae. ID service will be consulted. Continue to titrate down FiO2. Laboratory data showed WBC 38.3 hemoglobin 9.0 and platelets 497 BUN 5 and creatinine 0.24 and blood sugar is 150 calcium 8.1. Patient is also being treated for multifocal pneumonia. Does have cough with minimal sputum production. 05/13/2021 Patient was admitted to hospital due to DKA and multifocal pneumonia and hypoxic respiratory failure. Patient is currently lying in the bed. Awake alert and oriented. Oxygen requirement went up to 10 L today. Patient is also tachycardic. CT angiogram was ordered to rule pulmonary embolism. Otherwise patient is being continued on broad-spectrum antibiotics in the form of Levaquin and Zosyn and vancomycin was added. Repeat urinalysis was ordered. ID is on board. Patient otherwise denied any complaints of chest pain. Does have diarrhea diarrhea and C. difficile was sent. Patient has been afebrile. Denied any complaints of abdominal pain. Able to tolerate oral diet. Blood sugar is still fluctuating. REVIEW OF SYSTEMS CONSTITUTIONAL: Denies fever or chills. CARDIOVASCULAR: Denies chest pain, orthopnea, PND or palpitations. RESPIRATORY: + cough. GASTROINTESTINAL: Denies abdominal pain,, constipation, nausea or vomiting. MUSCULOSKELETAL: Denies myalgias. NEUROLOGIC: Denies numbness, tingling or weakness. ENDOCRINE: Denies fatigue, weight change, polydipsia or polyurina. GENITOURINARY: Denies burning, hematuria or urgency with micturation. HEMATOLOGIC: Denies history of anemia or bleeding. Current medications reviewed. Objective - Vital Signs Vital signs: Vital Signs Temp 100.7 F H 05/13/21 12:00 Pulse 128 H 05/13/21 12:00 Resp 20 05/13/21 12:00 BP 111/60 05/13/21 12:00 Pulse Ox 84 L 05/13/21 12:00 Intake & Output 05/13/21 05/13/21 05/14/21 06:59 18:59 06:59 Intake Total 762 Output Total 650 550 Balance -650 212 Intake: Oral 762 Output: Urine 650 550 Other: Voiding Method Bedside Commode Bedside Commode # Voids 1 - Exam PHYSICAL EXAMINATION: Patient is lying in the bed comfortably, mild distress, awake alert and oriented.. HEENT: Normocephalic. Neck is supple. Pupils reactive. Nostrils clear. Oral cavity is moist. Neck reveals no JVD, carotid bruits, or thyromegaly. CHEST EXAMINATION: Trachea is central. Symmetrical expansion. Bilateral diminished sounds and coarse breath sounds.. CARDIAC: Normal S1, S2 with no gallops. No murmurs ABDOMEN: Soft. Bowel sounds normal. No organomegaly. No abdominal bruits. Extremities: reveal no edema. No clubbing or cyanosis Neurologically awake, alert, oriented x3 with well-coordinated movements. Lethargic and weak. No gross focal deficits noted Skin: No rash or skin lesions. Psychiatric: Coperative. Could not be assessed completely Musculoskeletal: No joint swelling or deformity. - Labs CBC & Chem 7: 05/13/21 10:59 05/14/21 06:03 Labs: Abnormal Lab Results - Last 24 Hours (Table) 05/12/21 05/13/21 05/13/21 Range/Units 20:31 01:55 05:54 WBC (3.8-10.6) k/uL Hgb (11.4-16.0) gm/dL Hct (34.0-46.0) % MCHC (31.0-37.0) g/dL Plt Count (150-450) k/uL Neutrophils # (1.3-7.7) k/uL Lymphocytes # (1.0-4.8) k/uL Sodium (137-145) mmol/L Potassium (3.5-5.1) mmol/L BUN (7-17) mg/dL Creatinine (0.52-1.04) mg/dL Glucose (74-99) mg/dL POC Glucose (mg/dL) 66 L 108 H 159 H (75-99) mg/dL Calcium (8.4-10.2) mg/dL 05/13/21 05/13/21 05/13/21 Range/Units 10:59 10:59 11:48 WBC 25.1 H (3.8-10.6) k/uL Hgb 9.6 L (11.4-16.0) gm/dL Hct 31.6 L (34.0-46.0) % MCHC 30.3 L (31.0-37.0) g/dL Plt Count 499 H (150-450) k/uL Neutrophils # 23.2 H (1.3-7.7) k/uL Lymphocytes # 0.9 L (1.0-4.8) k/uL Sodium 136 L (137-145) mmol/L Potassium 3.0 L (3.5-5.1) mmol/L BUN 2 L (7-17) mg/dL Creatinine 0.29 L (0.52-1.04) mg/dL Glucose 164 H (74-99) mg/dL POC Glucose (mg/dL) 143 H (75-99) mg/dL Calcium 7.9 L (8.4-10.2) mg/dL Assessment and Plan Assessment: Acute diabetic ketoacidosis Bilateral multifocal pneumonia Acute hypoxic respiratory failure currently requiring 6 L-->15L--10L--6L--10L oxygen via nasal cannula Acute urinary tract infection Sepsis secondary to above. Patient is tachycardic tachypneic and WBC 33 on admission Hypokalemia and hypomagnesemia replaced. chronic back pain Bilateral lower extremity diabetic peripheral neuropathy Anxiety/depression DVT prophylaxis with heparin subcu Plan: Patient is being treated with broad-spectrum antibiotics due to multifocal bronchopneumonia. titrate down Fio2 DKA has resolved. Insulin dose changed to subcu. CT chest was done. Final urine culture showed MRSA, E. coli and strep agalactiae ID was consulted. Continue with oxygen supplementation 15 L via nasal cannula. Encourage oral intake. Pulmonary is on board. Time with Patient: Greater than 30
--- NOTE | 2021-05-14 23:51 | P.PN ---
Subjective Progress Note Date: 05/14/21 Patient is a 36-year-old female with known history of diabetes type 1, chronic back pain, anxiety/depression physiology complains of nausea vomiting and generalized weakness. Patient felt very weak and dizzy and had near syncope. Patient is also complaining of body aches and pains. Denied any cough or sputum production. Patient was found to have elevated blood sugars in 400s lactic acid 2.5 and a stone positive. Chest x-ray showed there is left lower lobe pneumonia which is new compared to old exam. M.D. 747 CRP 36.7 Diabetes. 3.4 hemoglobin 10.5 and platelets 793 Patient is tachycardic and tachypneic on admission pulse ox 90% on 6 L oxygen via nasal cannula. Urinalysis showed cloudy with 4+ ketones and large leukocyte esterase and elevated WBCs 05/10/2021 Patient is currently in the select care unit. Awake alert and more oriented today. Requiring high flow oxygen at [address] of the chest was done yesterday showed extensive pulmonary infiltrates likely related to bronchopneumonia. Mild left pleural effusion. Antibiotics changed to broad-spectrum with Zosyn and Levaquin. Pulmonary is on board. Patient has been afebrile. Continue on insulin drip. Laboratory data WBC 28.9 hemoglobin 7.3 and platelets 582 Sodium 137 potassium 3.0 magnesium 1.5 BUN 5 and creatinine 0.33. COVID-19 PCR not detected. Urine culture showed gram-negative bacilli, presumptive staph and strep. 05/11/2020 Patient is currently resting in bed. Awake alert and oriented x3. Patient states that she feels better. No complaints of chest pain. Shortness of breath is getting better. Currently requiring 10 L of oxygen via nasal cannula. Patient is on antibiotics at home Levaquin and Zosyn. Patient became hypoglycemic with blood sugar in 20s last night. Levemir dose will be decreased. Continue with insulin sliding scale. Laboratory data showed WBC 33.1 hemoglobin 6.7 and platelets 507 Sodium 134 potassium 3.4 chloride 102 BUN 4 and creatinine 0.23 and blood sugar is 88 this morning. 05/12/2021 Patient is currently sitting in the bed. Awake alert and oriented x3. DKA has resolved and blood sugar is fairly controlled. Currently patient is requiring 8 L oxygen via nasal cannula titrated down to 6 L now. Patient is on broad-spectrum antibiotics in the form of Levaquin and Zosyn. Urine culture is growing MRSA, E. coli and strep agalactiae. ID service will be consulted. Continue to titrate down FiO2. Laboratory data showed WBC 38.3 hemoglobin 9.0 and platelets 497 BUN 5 and creatinine 0.24 and blood sugar is 150 calcium 8.1. Patient is also being treated for multifocal pneumonia. Does have cough with minimal sputum production. 05/13/2021 Patient was admitted to hospital due to DKA and multifocal pneumonia and hypoxic respiratory failure. Patient is currently lying in the bed. Awake alert and oriented. Oxygen requirement went up to 10 L today. Patient is also tachycardic. CT angiogram was ordered to rule pulmonary embolism. Otherwise patient is being continued on broad-spectrum antibiotics in the form of Levaquin and Zosyn and vancomycin was added. Repeat urinalysis was ordered. ID is on board. Patient otherwise denied any complaints of chest pain. Does have diarrhea diarrhea and C. difficile was sent. Patient has been afebrile. Denied any complaints of abdominal pain. Able to tolerate oral diet. Blood sugar is still fluctuating. 05/14/2021 Patient is currently resting in bed. Awake alert and oriented x3. Patient has been started on broad-spectrum antibiotics. Oxygen requirement titrated down to 8 L via nasal cannula today. Patient is on antibiotics above vancomycin and Levaquin for multidrug-resistant urinary tract infection. ID is on board. CT angiogram showed no pulmonary embolism. Extensive pneumonic consolidation noted. Patient has been afebrile. Laboratory data showed sodium 134 potassium 3.7 BUN 14 creatinine 0.27 blood sugars 292. Albumin 1.8 and C. difficile is negative. Patient continues to have diarrhea but improved compared to yesterday. No nausea or vomiting. Tolerating oral diet. No abdominal pain. No complaints of chest pain or worsening shortness of breath. Pulmonary and ID is on board. REVIEW OF SYSTEMS CONSTITUTIONAL: Denies fever or chills. CARDIOVASCULAR: Denies chest pain, orthopnea, PND or palpitations. RESPIRATORY: + cough. GASTROINTESTINAL: Denies abdominal pain,, constipation, nausea or vomiting. MUSCULOSKELETAL: Denies myalgias. NEUROLOGIC: Denies numbness, tingling or weakness. ENDOCRINE: Denies fatigue, weight change, polydipsia or polyurina. GENITOURINARY: Denies burning, hematuria or urgency with micturation. HEMATOLOGIC: Denies history of anemia or bleeding. Current medications reviewed. Objective - Vital Signs Vital signs: Vital Signs Temp 97.9 F 05/14/21 19:45 Pulse 119 H 05/14/21 19:45 Resp 19 05/14/21 19:45 BP 113/71 05/14/21 19:45 Pulse Ox 92 L 05/14/21 21:15 Intake & Output 05/14/21 05/14/21 05/15/21 06:59 18:59 06:59 Output Total 600 1300 Balance -600 -1300 Weight 36.5 kg Output: Urine 600 1300 Other: Voiding Method Bedside Commode Bedside Commode Bedside Commode # Voids 3 1 # Bowel Movements 3 2 - Exam PHYSICAL EXAMINATION: Patient is lying in the bed comfortably, mild distress, awake alert and or iented.. HEENT: Normocephalic. Neck is supple. Pupils reactive. Nostrils clear. Oral cavity is moist. Neck reveals no JVD, carotid bruits, or thyromegaly. CHEST EXAMINATION: Trachea is central. Symmetrical expansion. Bilateral diminished sounds and coarse breath sounds.. CARDIAC: Normal S1, S2 with no gallops. No murmurs ABDOMEN: Soft. Bowel sounds normal. No organomegaly. No abdominal bruits. Extremities: reveal no edema. No clubbing or cyanosis Neurologically awake, alert, oriented x3 with well-coordinated movements. Lethargic and weak. No gross focal deficits noted Skin: No rash or skin lesions. Psychiatric: Coperative. Could not be assessed completely Musculoskeletal: No joint swelling or deformity. - Labs CBC & Chem 7: 05/13/21 10:59 05/14/21 06:03 Labs: Abnormal Lab Results - Last 24 Hours (Table) 05/14/21 05/14/21 05/14/21 Range/Units 06:03 06:11 11:04 Sodium 134 L (137-145) mmol/L BUN 4 L (7-17) mg/dL Creatinine 0.27 L (0.52-1.04) mg/dL Glucose 292 H (74-99) mg/dL POC Glucose (mg/dL) 325 H 186 H (75-99) mg/dL Calcium 7.2 L (8.4-10.2) mg/dL Alkaline Phosphatase 144 H (38-126) U/L Total Protein 5.2 L (6.3-8.2) g/dL Albumin 1.8 L (3.5-5.0) g/dL Urine Glucose (UA) (Negative) 05/14/21 05/14/21 Range/Units 18:20 19:51 Sodium (137-145) mmol/L BUN (7-17) mg/dL Creatinine (0.52-1.04) mg/dL Glucose (74-99) mg/dL POC Glucose (mg/dL) 372 H (75-99) mg/dL Calcium (8.4-10.2) mg/dL Alkaline Phosphatase (38-126) U/L Total Protein (6.3-8.2) g/dL Albumin (3.5-5.0) g/dL Urine Glucose (UA) Trace H (Negative) Assessment and Plan Assessment: Acute diabetic ketoacidosis Bilateral multifocal pneumonia Acute hypoxic respiratory failure currently requiring 6 L-->15L--10L--6L--10L --8L oxygen via nasal cannula Acute urinary tract infection Sepsis secondary to above. Patient is tachycardic tachypneic and WBC 33 on admission Hypokalemia and hypomagnesemia replaced. chronic back pain Bilateral lower extremity diabetic peripheral neuropathy Anxiety/depression DVT prophylaxis with heparin subcu Plan: Patient is being treated with broad-spectrum antibiotics due to multifocal bronchopneumonia. titrate down Fio2 DKA has resolved. Insulin dose changed to subcu. CT chest was done.showed extensive Pneumonic process. Final urine culture showed MRSA, E. coli and strep agalactiae ID is on board. Continue with oxygen supplementation 8 L via nasal cannula. Encourage oral intake. Pulmonary is on board. Time with Patient: Greater than 30
[2021-05-14] MEDS: PIPERACILLIN-TAZOBACTAM 3.375 GM in SODIUM CHLORIDE 0.9% 100 ML IVPB SCH (23:53)
[2021-05-15 06:26] LABS: Glucose,Whole Blood 371 mg/dL (75-99)
[2021-05-15] MEDS: INSULIN DETEMIR (LEVEMIR) 100 UNIT/ML SYR SQ SCH ×2 (06:36→21:13)
[2021-05-15] MEDS: INSULIN ASPART (NovoLOG) 100 UNIT/ML VIAL SQ SCH ×4 (06:36→21:13)
[2021-05-15 08:17] LABS: Basophils % (A) 0 %; Eosinophils # (A) 0.1 k/uL (0-0.7); Eosinophils % (A) 1 %; HCT 29.7 % (34.0-46.0); HGB 8.7 gm/dL (11.4-16.0); Hypochromasia Marked; Lymphocytes # (A) 0.9 k/uL (1.0-4.8); Lymphocytes % (A) 7 %; MCH 25.2 pg (25.0-35.0); MCHC 29.4 g/dL (31.0-37.0); MCV 85.6 fL (80.0-100.0); Mean Platelet Volume 7.4; Monocytes # (A) 0.5 k/uL (0-1.0); Monocytes % (A) 4 %; Neutrophils # (A) 10.7 k/uL (1.3-7.7); Neutrophils % (A) 87 %; Platelet Count 459 k/uL (150-450); RBC 3.47 m/uL (3.80-5.40); RDW 15.4 % (11.5-15.5); WBC 12.3 k/uL (3.8-10.6)
[2021-05-15 08:29] LABS: African American GFR (CKD) >90 (>60 ml/min/1.73 sqM); Anion Gap 7 mmol/L; Blood Urea Nitrogen 4 mg/dL (7-17); Calcium 7.7 mg/dL (8.4-10.2); Carbon Dioxide 24 mmol/L (22-30); Chloride 103 mmol/L (98-107); Glucose 270 mg/dL (74-99); Non-African American GFR(CKD) >90 (>60 ml/min/1.73 sqM); Potassium 3.3 mmol/L (3.5-5.1); Sodium 134 mmol/L (137-145)
[2021-05-15] MEDS: ALBUTEROL HFA INHALER INHALATION SCH ×4 (09:09→20:48)
[2021-05-15] MEDS: PIPERACILLIN-TAZOBACTAM 3.375 GM in SODIUM CHLORIDE 0.9% 100 ML IVPB SCH ×2 (09:12→17:32)
[2021-05-15] MEDS: METOPROLOL TARTRATE 12.5 MG TAB PO SCH ×2 (09:12→21:13)
[2021-05-15] MEDS: PREGABALIN 75 MG CAP PO SCH ×3 (09:12→21:13)
[2021-05-15] MEDS: HEPARIN SODIUM,PORCINE/PF 5,000 UNIT/0.5 ML SYRINGE SQ SCH ×2 (09:12→21:13)
[2021-05-15] MEDS: LOPERAMIDE 2 MG CAP PO PRN (09:12)
[2021-05-15 11:28] LABS: Glucose,Whole Blood 231 mg/dL (75-99)
--- NOTE | 2021-05-15 11:59 | P.PN ---
Subjective Progress Note Date: 05/15/21 Principal diagnosis: Pneumonia. On 05/11/2021, the patient is being seen for a follow-up. The patient is doing well. A repeat chest x-ray was done today and shows some limited improvement in aeration of left lung consolidation. The patient is doing well. She remains on 15 L of oxygen by nasal cannula patient remains on a combination of Zosyn and Levaquin. The patient is also using incentive spirometer. She is on Levemir insulin 35 units daily and NovoLog extensive coverage. She is requesting for her diet to be advanced further. The patient otherwise doing well. The white cell count is currently up to 33 and her hemoglobin dropped down to 6.7. The patient has no signs of any bleeding. Hemoglobin has dropped significantly over the past 48 hours. No abdominal distention. No melanotic stool. No nausea or emesis or hematemesis for now. Meanwhile, the anion gap is currently at 7. Potassium level is at 3.4. The primary care team as recognized been drop in hemoglobin and the patient will be given a unit of packed RBC. We'll check also Hemoccult stool. Progress note dated 05/12/2021. The patient is again seen in room 366. Currently, she is on 6 L nasal cannula. She was diagnosed with a left-sided pneumonia, and started on Levaquin and Zosyn. She's getting saline at 20 mL an hour. White count 38.3, hemoglobin 9, hematocrit 29.3, and platelet count 497,000. Chest x-ray shows a worsening infiltrate over the left lung. Progress note dated 05/13/2021. The patient is again seen today in room 366. Clinically, she states that she feels better. She remains on 6 L high flow nasal cannula. Saturations are in the mid 90s. Her urine is showing significant abnormalities including methicillin-resistant staph aureus, Escherichia coli, and group B streptococcus. The patient is not receiving IV fluids. White count is 25.1, hemoglobin 9.6, hematocrit 31.6, and platelet count 499,000. Sodium 136, potassium 3, chlorides 101, CO2 29, anion gap 6, BUN 2, and creatinine 0.29. The patient is currently on vancomycin and Levaquin. The chest x-ray from May 12 was reviewed yesterday. Progress note dated 05/14/2021. This is a 36-year-old female, who is again seen in room 366. Currently, she is doing well. Other than cough, she really denies all complaints. She's not short of breath despite being on 8 L nasal cannula. She is getting saline at 20 mL an hour. She was admitted with a diagnosis of pneumonia, and the left lung. In addition, the urine was significant, showing methicillin-resistant staph aureus, Escherichia coli, and group B streptococcus. The patient is currently on vancomycin and Levaquin. Sodium 134, potassium 3.7, chlorides 105, CO2 22, anion gap 7, BUN 4, creatinine 0.27. Albumin 1.8. A CT angiogram shows no evidence of pulmonary embolism. Pneumonic process, and the left lung, is significant, with near complete opacification of the left hemithorax. Progress note dated 05/15/2021. 36-year-old female, who is again seen in room 366. Currently, she's been weaned down to 5 L nasal cannula. She's getting saline at 20 mL an hour. She is hoping to be discharged soon. The most recent chest x-ray CAT scan showed a worsening pattern in the left lung, with developing infiltrate or atelectasis at the right lung base. Clinically, surprisingly, the patient looks very good. There is no signs or symptoms of respiratory distress. Is no coughing, wheezing, or significant phlegm production. She is breathing at a normal rate. No audible wheezing, use of accessory muscles, or conversational dyspnea. White count 12.3, hemoglobin 8.7, hematocrit 29.7, platelet count 459,000. Sodium 134, potassium 3.3, chlorides 103, CO2 24, anion gap 7, BUN 4, and creatinine 0.39. The patient remains on Zosyn and Levaquin. Her last chest x-ray was done on May 13, as well as her CAT scan. Objective - Vital Signs Vital signs: Vital Signs Temp 97.4 F L 05/15/21 09:00 Pulse 114 H 05/15/21 09:00 Resp 18 05/15/21 09:00 BP 95/52 05/15/21 09:00 Pulse Ox 90 L 05/15/21 09:00 Intake & Output 01/05/22 01/06/22 01/06/22 18:59 06:59 18:59 Intake Total 240 Output Total 1300 500 Balance -1300 -260 Weight 36.5 kg 47.1 kg Intake: Oral 240 Output: Urine 1300 500 Other: Voiding Method Bedside Commode Bedside Commode Bedside Commode # Voids 1 3 # Bowel Movements 2 - Exam No acute distress, oriented 3. No alka respiratory distress. The patient's currently on 5 L. The patient can speak in full sentences. HEENT examination is grossly unremarkable. Neck supple. Full range of motion. No adenopathy thyromegaly or neck vein distention. Cardiovascular examination reveals regular rhythm rate. S1-S2 normal. No S3 or S4. No discernible murmur noted. Heart rate 99 bpm. Lungs reveal coarse bilateral rhonchi. Abnormal breath sounds are worse on the left side than on the right. No wheezes. Scattered crackles are noted at the bases. Saturations are 90-94% on 5 L nasal cannula. Abdomen soft bowel sounds are heard. No masses or tenderness. Extremities are intact. No cyanosis clubbing or edema. Skin is without rash or lesion. Neurologic examination is brief but nonfocal. - Labs CBC & Chem 7: 05/15/21 08:01 05/15/21 08:01 Labs: Abnormal Lab Results - Last 24 Hours (Table) 05/14/21 05/14/21 05/15/21 Range/Units 18:20 19:51 06:24 WBC (3.8-10.6) k/uL RBC (3.80-5.40) m/uL Hgb (11.4-16.0) gm/dL Hct (34.0-46.0) % MCHC (31.0-37.0) g/dL Plt Count (150-450) k/uL Neutrophils # (1.3-7.7) k/uL Lymphocytes # (1.0-4.8) k/uL Sodium (137-145) mmol/L Potassium (3.5-5.1) mmol/L BUN (7-17) mg/dL Creatinine (0.52-1.04) mg/dL Glucose (74-99) mg/dL POC Glucose (mg/dL) 372 H 371 H (75-99) mg/dL Calcium (8.4-10.2) mg/dL Urine Glucose (UA) Trace H (Negative) 01/10/2905/15/21 05/15/21 Range/Units 08:01 08:01 11:26 WBC 12.3 H (3.8-10.6) k/uL RBC 3.47 L (3.80-5.40) m/uL Hgb 8.7 L (11.4-16.0) gm/dL Hct 29.7 L (34.0-46.0) % MCHC 29.4 L (31.0-37.0) g/dL Plt Count 459 H (150-450) k/uL Neutrophils # 10.7 H (1.3-7.7) k/uL Lymphocytes # 0.9 L (1.0-4.8) k/uL Sodium 134 L (137-145) mmol/L Potassium 3.3 L (3.5-5.1) mmol/L BUN 4 L (7-17) mg/dL Creatinine 0.39 L (0.52-1.04) mg/dL Glucose 270 H (74-99) mg/dL POC Glucose (mg/dL) 231 H (75-99) mg/dL Calcium 7.7 L (8.4-10.2) mg/dL Urine Glucose (UA) (Negative) Assessment and Plan Assessment: Acute hypoxemic respiratory failure secondary to left-sided pneumonia. Acute diabetic ketoacidosis, with an anion gap metabolic acidosis, resolved. History of severe leukocytosis secondary to pneumonia. Diabetes mellitus with diabetic retinopathy and neuropathy. Recent coronavirus infection, 2 weeks ago, hospitalized at [facility]. History of migraine cephalgia. History of anxiety/depression. Plan: Plan dated 05/12/2021. The patient is doing a bit better as she's been weaned down from 15 L high flow nasal O2, down to 6 L nasal cannula. She's receiving Levaquin and Zosyn as antibiotics. She's getting saline at 20 mL an hour. Urine is positive for methicillin-resistant staph aureus, group B strep, and E. coli. Infectious diseases should be consulted if not already consulted. We will continue to follow make recommendations were appropriate. Overall prognosis remains guarded. Chest x-ray is quite worrisome on the left side. Respiratory status though, is improved. Plan dated 05/13/2021. The patient's on 6 L nasal cannula. Saturations are in the mid 90s. She remains on Levaquin and vancomycin. Urine is showing methicillin-resistant staph aureus, Escherichia coli, and group B streptococcus. We will continue to follow make recommendations where appropriate. Chest x-ray from yesterday was reviewed. Clinically, the patient looks relatively stable despite the worsening chest x-ray pattern. Prognosis is guarded. Repeat chest x-ray in the morning. Plan dated 05/14/2021. The patient's currently on 8 L high flow nasal cannula. The patient's getting saline at 20 mL an hour. The patient remains on Levaquin and vancomycin. Urine was positive for methicillin-resistant staph aureus, Escherichia coli, and group B streptococcus. CAT scan is reviewed. Extensive consolidation on the left side, smaller infiltrate in the right lung. The patient may benefit from bronchoscopy. We'll discuss that with her. Clinically she is very stable. She denies being short of breath. She does have a dry nonproductive cough. No fever or chills. Plan dated 05/15/2021. The patient has been weaned on the 5 L nasal cannula. The patient have a chest x-ray today. Additional recommendations and suggestions are forthcoming. The patient did have a straight catheterization by the nurse. She feels that some of the bacteria that is noted in her urine, could be fecal in origin. Clinically, the patient looks well. She is not manifesting any signs or symptoms of respiratory distress. No conversational dyspnea or use of accessory muscles. Prognosis is guarded. We will continue to see her and make recommendations where appropriate. Time with Patient: Less than 30
[2021-05-15 16:29] LABS: Glucose,Whole Blood 145 mg/dL (75-99)
[2021-05-15] MEDS ORDERED: LEVOFLOXACIN 500 MG TAB PO SCH (18:00)
[2021-05-15 20:22] LABS: Glucose,Whole Blood 196 mg/dL (75-99)
--- NOTE | 2021-05-15 23:37 | P.PN ---
Subjective Progress Note Date: 05/15/21 Patient is a 36-year-old female with known history of diabetes type 1, chronic back pain, anxiety/depression physiology complains of nausea vomiting and generalized weakness. Patient felt very weak and dizzy and had near syncope. Patient is also complaining of body aches and pains. Denied any cough or sputum production. Patient was found to have elevated blood sugars in 400s lactic acid 2.5 and a stone positive. Chest x-ray showed there is left lower lobe pneumonia which is new compared to old exam. M.D. 747 CRP 36.7 Diabetes. 3.4 hemoglobin 10.5 and platelets 793 Patient is tachycardic and tachypneic on admission pulse ox 90% on 6 L oxygen via nasal cannula. Urinalysis showed cloudy with 4+ ketones and large leukocyte esterase and elevated WBCs 05/10/2021 Patient is currently in the select care unit. Awake alert and more oriented today. Requiring high flow oxygen at [address] of the chest was done yesterday showed extensive pulmonary infiltrates likely related to bronchopneumonia. Mild left pleural effusion. Antibiotics changed to broad-spectrum with Zosyn and Levaquin. Pulmonary is on board. Patient has been afebrile. Continue on insulin drip. Laboratory data WBC 28.9 hemoglobin 7.3 and platelets 582 Sodium 137 potassium 3.0 magnesium 1.5 BUN 5 and creatinine 0.33. COVID-19 PCR not detected. Urine culture showed gram-negative bacilli, presumptive staph and strep. 05/11/2020 Patient is currently resting in bed. Awake alert and oriented x3. Patient states that she feels better. No complaints of chest pain. Shortness of breath is getting better. Currently requiring 10 L of oxygen via nasal cannula. Patient is on antibiotics at home Levaquin and Zosyn. Patient became hypoglycemic with blood sugar in 20s last night. Levemir dose will be decreased. Continue with insulin sliding scale. Laboratory data showed WBC 33.1 hemoglobin 6.7 and platelets 507 Sodium 134 potassium 3.4 chloride 102 BUN 4 and creatinine 0.23 and blood sugar is 88 this morning. 05/12/2021 Patient is currently sitting in the bed. Awake alert and oriented x3. DKA has resolved and blood sugar is fairly controlled. Currently patient is requiring 8 L oxygen via nasal cannula titrated down to 6 L now. Patient is on broad-spectrum antibiotics in the form of Levaquin and Zosyn. Urine culture is growing MRSA, E. coli and strep agalactiae. ID service will be consulted. Continue to titrate down FiO2. Laboratory data showed WBC 38.3 hemoglobin 9.0 and platelets 497 BUN 5 and creatinine 0.24 and blood sugar is 150 calcium 8.1. Patient is also being treated for multifocal pneumonia. Does have cough with minimal sputum production. 05/13/2021 Patient was admitted to hospital due to DKA and multifocal pneumonia and hypoxic respiratory failure. Patient is currently lying in the bed. Awake alert and oriented. Oxygen requirement went up to 10 L today. Patient is also tachycardic. CT angiogram was ordered to rule pulmonary embolism. Otherwise patient is being continued on broad-spectrum antibiotics in the form of Levaquin and Zosyn and vancomycin was added. Repeat urinalysis was ordered. ID is on board. Patient otherwise denied any complaints of chest pain. Does have diarrhea diarrhea and C. difficile was sent. Patient has been afebrile. Denied any complaints of abdominal pain. Able to tolerate oral diet. Blood sugar is still fluctuating. 05/14/2021 Patient is currently resting in bed. Awake alert and oriented x3. Patient has been started on broad-spectrum antibiotics. Oxygen requirement titrated down to 8 L via nasal cannula today. Patient is on antibiotics above vancomycin and Levaquin for multidrug-resistant urinary tract infection. ID is on board. CT angiogram showed no pulmonary embolism. Extensive pneumonic consolidation noted. Patient has been afebrile. Laboratory data showed sodium 134 potassium 3.7 BUN 14 creatinine 0.27 blood sugars 292. Albumin 1.8 and C. difficile is negative. Patient continues to have diarrhea but improved compared to yesterday. No nausea or vomiting. Tolerating oral diet. No abdominal pain. No complaints of chest pain or worsening shortness of breath. Pulmonary and ID is on board. 05/15/2021 Patient is currently sitting in the bed. Awake alert and oriented x3. clinically improving. Breathing status is much improved now. Currently requiring oxygen at 5 L via nasal cannula. Tachycardia is improving. Patient has been afebrile. Repeat urinalysis is negative. Initial urine culture possibly contaminated with multiple organisms. Vancomycin has been discontinued and patient will be continued on Zosyn. ID and pulmonary is on board. Laboratories show WBC count trending down to 12.3 hemoglobin 8.7 and platelets 459 Sodium 134 potassium 3.3 chloride 103 BUN 14 creatinine 0.39 and blood sugar is 270. Patient is tolerating oral diet. Insulin dose started back on 2 home regimen of 35 units at bedtime and continue with insulin sliding scale. REVIEW OF SYSTEMS CONSTITUTIONAL: Denies fever or chills. CARDIOVASCULAR: Denies chest pain, orthopnea, PND or palpitations. RESPIRATORY: + cough. GASTROINTESTINAL: Denies abdominal pain,, constipation, nausea or vomiting. MUSCULOSKELETAL: Denies myalgias. NEUROLOGIC: Denies numbness, tingling or weakness. ENDOCRINE: Denies fatigue, weight change, polydipsia or polyurina. GENITOURINARY: Denies burning, hematuria or urgency with micturation. HEMATOLOGIC: Denies history of anemia or bleeding. Current medications reviewed. Objective - Vital Signs Vital signs: Vital Signs Temp 99.8 F H 05/15/21 16:00 Pulse 120 H 05/15/21 16:00 Resp 16 05/15/21 16:00 BP 109/66 05/15/21 16:00 Pulse Ox 96 05/15/21 16:00 Intake & Output 05/15/21 05/15/21 05/16/21 06:59 18:59 06:59 Intake Total 598 Output Total 1100 Balance -502 Weight 47.1 kg Intake: Oral 598 Output: Urine 1100 Other: Voiding Method Bedside Commode Bedside Commode # Voids 3 - Exam PHYSICAL EXAMINATION: Patient is lying in the bed comfortably, mild distress, awake alert and oriented.. HEENT: Normocephalic. Neck is supple. Pupils reactive. Nostrils clear. Oral cavity is moist. Neck reveals no JVD, carotid bruits, or thyromegaly. CHEST EXAMINATION: Trachea is central. Symmetrical expansion. Bilateral dimini shed sounds and coarse breath sounds.. CARDIAC: Normal S1, S2 with no gallops. No murmurs ABDOMEN: Soft. Bowel sounds normal. No organomegaly. No abdominal bruits. Extremities: reveal no edema. No clubbing or cyanosis Neurologically awake, alert, oriented x3 with well-coordinated movements. Let hargic and weak. No gross focal deficits noted Skin: No rash or skin lesions. Psychiatric: Coperative. Could not be assessed completely Musculoskeletal: No joint swelling or deformity. - Labs CBC & Chem 7: 01/06/22 08:01 05/15/21 08:01 Labs: Abnormal Lab Results - Last 24 Hours (Table) 05/15/21 05/15/21 05/15/21 Range/Units 06:24 08:01 08:01 WBC (3.8-10.6) k/uL RBC (3.80-5.40) m/uL Hgb (11.4-16.0) gm/dL Hct (34.0-46.0) % MCHC (31.0-37.0) g/dL Plt Count (150-450) k/uL Neutrophils # (1.3-7.7) k/uL Lymphocytes # (1.0-4.8) k/uL Sodium 134 L (137-145) mmol/L Potassium 3.3 L (3.5-5.1) mmol/L BUN 4 L (7-17) mg/dL Creatinine 0.39 L (0.52-1.04) mg/dL Glucose 270 H (74-99) mg/dL POC Glucose (mg/dL) 371 H (75-99) mg/dL Calcium 7.7 L (8.4-10.2) mg/dL Procalcitonin 0.11 H (0.02-0.09) ng/mL 05/15/21 05/15/21 05/15/21 Range/Units 08:01 11:26 16:27 WBC 12.3 H (3.8-10.6) k/uL RBC 3.47 L (3.80-5.40) m/uL Hgb 8.7 L (11.4-16.0) gm/dL Hct 29.7 L (34.0-46.0) % MCHC 29.4 L (31.0-37.0) g/dL Plt Count 459 H (150-450) k/uL Neutrophils # 10.7 H (1.3-7.7) k/uL Lymphocytes # 0.9 L (1.0-4.8) k/uL Sodium (137-145) mmol/L Potassium (3.5-5.1) mmol/L BUN (7-17) mg/dL Creatinine (0.52-1.04) mg/dL Glucose (74-99) mg/dL POC Glucose (mg/dL) 231 H 145 H (75-99) mg/dL Calcium (8.4-10.2) mg/dL Procalcitonin (0.02-0.09) ng/mL 05/15/21 Range/Units 20:21 WBC (3.8-10.6) k/uL RBC (3.80-5.40) m/uL Hgb (11.4-16.0) gm/dL Hct (34.0-46.0) % MCHC (31.0-37.0) g/dL Plt Count (150-450) k/uL Neutrophils # (1.3-7.7) k/uL Lymphocytes # (1.0-4.8) k/uL Sodium (137-145) mmol/L Potassium (3.5-5.1) mmol/L BUN (7-17) mg/dL Creatinine (0.52-1.04) mg/dL Glucose (74-99) mg/dL POC Glucose (mg/dL) 196 H (75-99) mg/dL Calcium (8.4-10.2) mg/dL Procalcitonin (0.02-0.09) ng/mL Assessment and Plan Assessment: Acute diabetic ketoacidosis. resolved Bilateral multifocal pneumonia Acute hypoxic respiratory failure currently requiring 6 L-->15L--10L--6L--10L --8L--5L oxygen via nasal cannula Acute urinary tract infection.Initial cultures showing multi organisms possible contaminated sample. Repeat urinalysis is negative for infection. Sepsis secondary to above. Patient is tachycardic tachypneic and WBC 33 on admission Hypokalemia and hypomagnesemia replaced. chronic back pain Bilateral lower extremity diabetic peripheral neuropathy Anxiety/depression DVT prophylaxis with heparin subcu Plan: Patient is being treated with broad-spectrum antibiotics due to multifocal bronchopneumonia. titrate down Fio2 DKA has resolved. Insulin dose changed to subcu. CT chest was done.showed extensive Pneumonic process.CTA negative for PE. Initial cultures showing multi organisms possible contaminated sample. Repeat urinalysis is negative for infection. Encourage oral intake. Pulmonary and ID is on board. Time with Patient: Greater than 30
--- NOTE | 2021-05-16 | PN ---
PROGRESS NOTE DATE OF SERVICE: 05/15/2021 REASON FOR FOLLOWUP: 1. Pneumonia. 2. UTI. INTERVAL HISTORY: The patient is afebrile. The patient is breathing more comfortably. The patient did complain of cough and is bringing up some sputum. Patient denies having any chest pain. No abdominal pain. No diarrhea and no urinary symptoms. PHYSICAL EXAMINATION: Blood pressure 109/66, pulse of 120. Temperature 99.8. She is 96% on 4 L nasal cannula. General description is a middle-aged female up in the bed in no distress. Respiratory system: Unlabored breathing. Coarse breath sounds in the bases. No wheeze. Heart S1, S2. Regular rate and rhythm. Abdomen soft, no tenderness. LABS: Sputum cultures requested, not collected. Hemoglobin 8.2, white count 4.3, creatinine 0.39. DIAGNOSTIC IMPRESSION AND PLAN: Patient with a positive urine culture with MRSA possible contaminant as the patient repeat urine negative. Patient not having any symptoms, currently off vancomycin. DIAGNOSTIC IMPRESSION AND PLAN: Patient with MRSA pneumonia on the right, possible aspiration versus gram-negative on Zosyn. Sputum culture has been requested, unfortunately not collected that will help to adjust antibiotic further. Continue supportive care. MMODL / IJN: [id number] /
[2021-05-16] MEDS: PIPERACILLIN-TAZOBACTAM 3.375 GM in SODIUM CHLORIDE 0.9% 100 ML IVPB SCH ×3 (00:04→17:10)
[2021-05-16] MEDS: POTASSIUM CHLORIDE ER 20 MEQ TAB.ER PO SCH ×3 (00:05→20:34)
[2021-05-16 06:23] LABS: Glucose,Whole Blood 60 mg/dL (75-99)
[2021-05-16] MEDS: INSULIN ASPART (NovoLOG) 100 UNIT/ML VIAL SQ SCH ×4 (06:30→20:34)
[2021-05-16 06:36] LABS: Glucose,Whole Blood 50 mg/dL (75-99)
[2021-05-16 06:48] LABS: HCT 26.3 % (34.0-46.0); HGB 8.1 gm/dL (11.4-16.0); Hypochromasia Marked; MCH 25.5 pg (25.0-35.0); MCHC 30.7 g/dL (31.0-37.0); Mean Platelet Volume 9.3; Platelet Count 358 k/uL (150-450); Poikilocytosis Slight; RBC 3.17 m/uL (3.80-5.40); RDW 15.8 % (11.5-15.5); WBC 12.8 k/uL (3.8-10.6)
[2021-05-16 06:50] LABS: Glucose,Whole Blood 80 mg/dL (75-99)
[2021-05-16 06:57] LABS: Glucose,Whole Blood 64 mg/dL (75-99)
[2021-05-16 07:09] LABS: African American GFR (CKD) >90 (>60 ml/min/1.73 sqM); Anion Gap 4 mmol/L; Blood Urea Nitrogen 7 mg/dL (7-17); Calcium 7.5 mg/dL (8.4-10.2); Carbon Dioxide 23 mmol/L (22-30); Chloride 107 mmol/L (98-107); Non-African American GFR(CKD) >90 (>60 ml/min/1.73 sqM); Sodium 134 mmol/L (137-145)
[2021-05-16 07:22] LABS: Glucose,Whole Blood 106 mg/dL (75-99)
[2021-05-16 07:27] LABS: Glucose 33 mg/dL (74-99); Potassium 3.6 mmol/L (3.5-5.1)
[2021-05-16] MEDS: ALBUTEROL HFA INHALER INHALATION SCH ×4 (08:11→20:01)
[2021-05-16 10:14] LABS: Band Neutrophils % 1 %; Eosinophils # (M) 0.13 k/uL (0-0.7); Monocytes # (M) 0.77 k/uL (0-1.0); Myelocytes # (M) 0.26 k/uL (0); Myelocytes % 2 %; Neutrophils % (M) 84 %; Nucleated Red Blood Cells 0 /100 WBC (0-0); Total Cells Counted 200
[2021-05-16] MEDS: METOPROLOL TARTRATE 12.5 MG TAB PO SCH ×2 (10:35→20:33)
[2021-05-16] MEDS: HEPARIN SODIUM,PORCINE/PF 5,000 UNIT/0.5 ML SYRINGE SQ SCH ×2 (10:35→20:20)
[2021-05-16] MEDS: PREGABALIN 75 MG CAP PO SCH ×3 (10:35→20:33)
[2021-05-16 11:44] LABS: Glucose,Whole Blood 184 mg/dL (75-99)
--- NOTE | 2021-05-16 12:30 | P.PN ---
Subjective Progress Note Date: 05/16/21 Principal diagnosis: Pneumonia. On 05/11/2021, the patient is being seen for a follow-up. The patient is doing well. A repeat chest x-ray was done today and shows some limited improvement in aeration of left lung consolidation. The patient is doing well. She remains on 15 L of oxygen by nasal cannula patient remains on a combination of Zosyn and Levaquin. The patient is also using incentive spirometer. She is on Levemir insulin 35 units daily and NovoLog extensive coverage. She is requesting for her diet to be advanced further. The patient otherwise doing well. The white cell count is currently up to 33 and her hemoglobin dropped down to 6.7. The patient has no signs of any bleeding. Hemoglobin has dropped significantly over the past 48 hours. No abdominal distention. No melanotic stool. No nausea or emesis or hematemesis for now. Meanwhile, the anion gap is currently at 7. Potassium level is at 3.4. The primary care team as recognized been drop in hemoglobin and the patient will be given a unit of packed RBC. We'll check also Hemoccult stool. Progress note dated 05/12/2021. The patient is again seen in room 366. Currently, she is on 6 L nasal cannula. She was diagnosed with a left-sided pneumonia, and started on Levaquin and Zosyn. She's getting saline at 20 mL an hour. White count 38.3, hemoglobin 9, hematocrit 29.3, and platelet count 497,000. Chest x-ray shows a worsening infiltrate over the left lung. Progress note dated 05/13/2021. The patient is again seen today in room 366. Clinically, she states that she feels better. She remains on 6 L high flow nasal cannula. Saturations are in the mid 90s. Her urine is showing significant abnormalities including methicillin-resistant staph aureus, Escherichia coli, and group B streptococcus. The patient is not receiving IV fluids. White count is 25.1, hemoglobin 9.6, hematocrit 31.6, and platelet count 499,000. Sodium 136, potassium 3, chlorides 101, CO2 29, anion gap 6, BUN 2, and creatinine 0.29. The patient is currently on vancomycin and Levaquin. The chest x-ray from May 12 was reviewed yesterday. Progress note dated 05/14/2021. This is a 36-year-old female, who is again seen in room 366. Currently, she is doing well. Other than cough, she really denies all complaints. She's not short of breath despite being on 8 L nasal cannula. She is getting saline at 20 mL an hour. She was admitted with a diagnosis of pneumonia, and the left lung. In addition, the urine was significant, showing methicillin-resistant staph aureus, Escherichia coli, and group B streptococcus. The patient is currently on vancomycin and Levaquin. Sodium 134, potassium 3.7, chlorides 105, CO2 22, anion gap 7, BUN 4, creatinine 0.27. Albumin 1.8. A CT angiogram shows no evidence of pulmonary embolism. Pneumonic process, and the left lung, is significant, with near complete opacification of the left hemithorax. Progress note dated 05/15/2021. 36-year-old female, who is again seen in room 366. Currently, she's been weaned down to 5 L nasal cannula. She's getting saline at 20 mL an hour. She is hoping to be discharged soon. The most recent chest x-ray CAT scan showed a worsening pattern in the left lung, with developing infiltrate or atelectasis at the right lung base. Clinically, surprisingly, the patient looks very good. There is no signs or symptoms of respiratory distress. Is no coughing, wheezing, or significant phlegm production. She is breathing at a normal rate. No audible wheezing, use of accessory muscles, or conversational dyspnea. White count 12.3, hemoglobin 8.7, hematocrit 29.7, platelet count 459,000. Sodium 134, potassium 3.3, chlorides 103, CO2 24, anion gap 7, BUN 4, and creatinine 0.39. The patient remains on Zosyn and Levaquin. Her last chest x-ray was done on May 13, as well as her CAT scan. Progress note dated 05/16/2021. 36-year-old female with history of left-sided pneumonia and diabetes. The patient has been weaned down to 2 L nasal cannula. The patient is not receiving any IV fluids. The patient feels well. She's not short of breath. The patient denies any significant chest pain or chest discomfort. She's not coughing up any phlegm. She denies any nausea, vomiting, or diarrhea. No abdominal discomfort. No new labs today. No recent chest x-ray to evaluate. Objective - Vital Signs Vital signs: Vital Signs Temp 98 F 05/16/21 08:00 Pulse 106 H 05/16/21 08:00 Resp 20 05/16/21 08:00 BP 113/77 05/16/21 08:00 Pulse Ox 95 05/16/21 08:00 Intake & Output 05/15/21 05/16/21 05/16/21 18:59 06:59 18:59 Intake Total 598 1200 240 Output Total 1100 Balance -502 1200 240 Intake: Oral 598 1200 240 Output: Urine 1100 Other: Voiding Method Bedside Commode Bedside Commode # Voids 2 # Bowel Movements 2 - Exam No acute distress, oriented 3. No alka respiratory distress. The patient's on 2 L. Saturations are 95%. HEENT examination is grossly unremarkable. Neck supple. Full range of motion. No adenopathy thyromegaly or neck vein distention. Cardiovascular examination reveals regular rhythm rate. S1-S2 normal. No S3 or S4. No discernible murmur noted. Heart rate 96 bpm. Lungs reveal coarse bilateral rhonchi. Abnormal breath sounds are worse on the left side than on the right. No wheezes. Scattered crackles are noted at the bases. The patient has been weaned down to 2 L. Saturations are 95%. Abdomen soft bowel sounds are heard. No masses or tenderness. Extremities are intact. No cyanosis clubbing or edema. Skin is without rash or lesion. Neurologic examination is brief but nonfocal. - Labs CBC & Chem 7: 05/16/21 06:14 05/16/21 06:14 Labs: Abnormal Lab Results - Last 24 Hours (Table) 05/15/21 05/15/21 05/16/21 Range/Units 16:27 20:21 06:14 WBC (3.8-10.6) k/uL RBC (3.80-5.40) m/uL Hgb (11.4-16.0) gm/dL Hct (34.0-46.0) % MCHC (31.0-37.0) g/dL RDW (11.5-15.5) % Neutrophils # (Manual) (1.3-7.7) k/uL Lymphocytes # (Manual) (1.0-4.8) k/uL Myelocytes # (Manual) (0) k/uL Sodium 134 L (137-145) mmol/L Creatinine 0.43 L (0.52-1.04) mg/dL Glucose 33 L* (74-99) mg/dL POC Glucose (mg/dL) 145 H 196 H (75-99) mg/dL Calcium 7.5 L (8.4-10.2) mg/dL 05/16/21 05/16/21 05/16/21 Range/Units 06:14 06:21 06:35 WBC 12.8 H (3.8-10.6) k/uL RBC 3.17 L (3.80-5.40) m/uL Hgb 8.1 L (11.4-16.0) gm/dL Hct 26.3 L (34.0-46.0) % MCHC 30.7 L (31.0-37.0) g/dL RDW 15.8 H (11.5-15.5) % Neutrophils # (Manual) 10.80 H (1.3-7.7) k/uL Lymphocytes # (Manual) 0.90 L (1.0-4.8) k/uL Myelocytes # (Manual) 0.26 H (0) k/uL Sodium (137-145) mmol/L Creatinine (0.52-1.04) mg/dL Glucose (74-99) mg/dL POC Glucose (mg/dL) 60 L 50 L (75-99) mg/dL Calcium (8.4-10.2) mg/dL 05/16/21 05/16/21 05/16/21 Range/Units 06:54 07:11 11:42 WBC (3.8-10.6) k/uL RBC (3.80-5.40) m/uL Hgb (11.4-16.0) gm/dL Hct (34.0-46.0) % MCHC (31.0-37.0) g/dL RDW (11.5-15.5) % Neutrophils # (Manual) (1.3-7.7) k/uL Lymphocytes # (Manual) (1.0-4.8) k/uL Myelocytes # (Manual) (0) k/uL Sodium (137-145) mmol/L Creatinine (0.52-1.04) mg/dL Glucose (74-99) mg/dL POC Glucose (mg/dL) 64 L 106 H 184 H (75-99) mg/dL Calcium (8.4-10.2) mg/dL Assessment and Plan Assessment: Acute hypoxemic respiratory failure secondary to left-sided pneumonia. Acute diabetic ketoacidosis, with an anion gap metabolic acidosis, resolved. History of severe leukocytosis secondary to pneumonia. Diabetes mellitus with diabetic retinopathy and neuropathy. Recent coronavirus infection, 2 weeks ago, hospitalized at [facility]. History of migraine cephalgia. History of anxiety/depression. Plan: Plan dated 05/12/2021. The patient is doing a bit better as she's been weaned down from 15 L high flow nasal O2, down to 6 L nasal cannula. She's receiving Levaquin and Zosyn as antibiotics. She's getting saline at 20 mL an hour. Urine is positive for methicillin-resistant staph aureus, group B strep, and E. coli. Infectious diseases should be consulted if not already consulted. We will continue to follow make recommendations were appropriate. Overall prognosis remains guarded. Chest x-ray is quite worrisome on the left side. Respiratory status though, is improved. Plan dated 05/13/2021. The patient's on 6 L nasal cannula. Saturations are in the mid 90s. She remains on Levaquin and vancomycin. Urine is showing methicillin-resistant staph aureus, Escherichia coli, and group B streptococcus. We will continue to follow make recommendations where appropriate. Chest x-ray from yesterday was reviewed. Clinically, the patient looks relatively stable despite the worsening chest x-ray pattern. Prognosis is guarded. Repeat chest x-ray in the morning. Plan dated 05/14/2021. The patient's currently on 8 L high flow nasal cannula. The patient's getting saline at 20 mL an hour. The patient remains on Levaquin and vancomycin. Urine was positive for methicillin-resistant staph aureus, Escherichia coli, and group B streptococcus. CAT scan is reviewed. Extensive consolidation on the left side, smaller infiltrate in the right lung. The patient may benefit from bronchoscopy. We'll discuss that with her. Clinically she is very stable. She denies being short of breath. She does have a dry nonproductive cough. No fever or chills. Plan dated 05/15/2021. The patient has been weaned on the 5 L nasal cannula. The patient have a chest x-ray today. Additional recommendations and suggestions are forthcoming. The patient did have a straight catheterization by the nurse. She feels that some of the bacteria that is noted in her urine, could be fecal in origin. Clinically, the patient looks well. She is not manifesting any signs or symptoms of respiratory distress. No conversational dyspnea or use of accessory muscles. Prognosis is guarded. We will continue to see her and make recommendations where appropriate. Plan dated 05/16/2021. The patient has been weaned down to 2 L. The patient's very stable from the pulmonary standpoint. The patient does need follow-up, and our office, for follow-up chest x-rays. The patient may need to be discharged home on oxygen therapy. The patient's respiratory status currently is very stable. Repeat straight catheter urine sampling, is normal. Most recent pro-calcitonin level is 0.11. White count 12.8, hemoglobin 8.1, hematocrit 26.3, and platelet count 358,000. Sodium 134, potassium 3.6, chlorides 107, CO2 23, anion gap, BUN 7, creatinine 0.43. Calcium is 7.5. The patient would like to be discharged home. I don't see a discharge packet in place. From the pulmonary standpoint, she certainly is stable for possible consideration of discharge. Time with Patient: Less than 30
[2021-05-16 17:01] LABS: Glucose,Whole Blood 267 mg/dL (75-99)
--- NOTE | 2021-05-16 17:57 | P.PN ---
Subjective Progress Note Date: 05/16/21 Principal diagnosis: Acute hypoxemic respiratory failure secondary to left-sided pneumonia Acute diabetic ketoacidosis, with an anion gap metabolic acidosis, resolved Severe leukocytosis secondary to pneumonia 36-year-old female with known history of diabetes type 1, chronic back pain, anxiety/depression physiology complains of nausea vomiting and generalized weakness. Patient felt very weak and dizzy and had near syncope. Patient is also complaining of body aches and pains. Denied any cough or sputum production. Patient was found to have elevated blood sugars in 400s lactic acid 2.5 and a stone positive. Chest x-ray showed there is left lower lobe pneumonia which is new compared to old exam. M.D. 747 CRP 36.7 Diabetes. 3.4 hemoglobin 10.5 and platelets 793 Patient is tachycardic and tachypneic on admission pulse ox 90% on 6 L oxygen vi a nasal cannula. Urinalysis showed cloudy with 4+ ketones and large leukocyte esterase and elevated WBCs Objective - Vital Signs Vital signs: Vital Signs Temp 98 F 05/16/21 08:00 Pulse 106 H 05/16/21 08:00 Resp 20 05/16/21 08:00 BP 113/77 05/16/21 08:00 Pulse Ox 95 05/16/21 08:00 Intake & Output 05/15/21 05/16/21 05/16/21 18:59 06:59 18:59 Intake Total 598 1200 240 Output Total 1100 Balance -502 1200 240 Intake: Oral 598 1200 240 Output: Urine 1100 Other: Voiding Method Bedside Commode Bedside Commode # Voids 2 # Bowel Movements 2 - Exam Patient is lying in the bed comfortably, mild distress, awake alert and or iented.. HEENT: Normocephalic. Neck is supple. Pupils reactive. Nostrils clear. Oral cavity is moist. Neck reveals no JVD, carotid bruits, or thyromegaly. CHEST EXAMINATION: Trachea is central. Symmetrical expansion. Bilateral diminished sounds and coarse breath sounds.. CARDIAC: Normal S1, S2 with no gallops. No murmurs ABDOMEN: Soft. Bowel sounds normal. No organomegaly. No abdominal bruits. Extremities: reveal no edema. No clubbing or cyanosis Neurologically awake, alert, oriented x3 with well-coordinated movements. Lethargic and weak. No gross focal deficits noted - Labs CBC & Chem 7: 05/16/21 06:14 05/16/21 06:14 Labs: Abnormal Lab Results - Last 24 Hours (Table) 05/15/21 05/15/21 05/15/21 Range/Units 08:01 16:27 20:21 WBC (3.8-10.6) k/uL RBC (3.80-5.40) m/uL Hgb (11.4-16.0) gm/dL Hct (34.0-46.0) % MCHC (31.0-37.0) g/dL RDW (11.5-15.5) % Neutrophils # (Manual) (1.3-7.7) k/uL Lymphocytes # (Manual) (1.0-4.8) k/uL Myelocytes # (Manual) (0) k/uL Sodium (137-145) mmol/L Creatinine (0.52-1.04) mg/dL Glucose (74-99) mg/dL POC Glucose (mg/dL) 145 H 196 H (75-99) mg/dL Calcium (8.4-10.2) mg/dL Procalcitonin 0.11 H (0.02-0.09) ng/mL 05/16/21 05/16/21 05/16/21 Range/Units 06:14 06:14 06:21 WBC 12.8 H (3.8-10.6) k/uL RBC 3.17 L (3.80-5.40) m/uL Hgb 8.1 L (11.4-16.0) gm/dL Hct 26.3 L (34.0-46.0) % MCHC 30.7 L (31.0-37.0) g/dL RDW 15.8 H (11.5-15.5) % Neutrophils # (Manual) 10.80 H (1.3-7.7) k/uL Lymphocytes # (Manual) 0.90 L (1.0-4.8) k/uL Myelocytes # (Manual) 0.26 H (0) k/uL Sodium 134 L (137-145) mmol/L Creatinine 0.43 L (0.52-1.04) mg/dL Glucose 33 L* (74-99) mg/dL POC Glucose (mg/dL) 60 L (75-99) mg/dL Calcium 7.5 L (8.4-10.2) mg/dL Procalcitonin (0.02-0.09) ng/mL 05/16/21 05/16/21 05/16/21 Range/Units 06:35 06:54 07:11 WBC (3.8-10.6) k/uL RBC (3.80-5.40) m/uL Hgb (11.4-16.0) gm/dL Hct (34.0-46.0) % MCHC (31.0-37.0) g/dL RDW (11.5-15.5) % Neutrophils # (Manual) (1.3-7.7) k/uL Lymphocytes # (Manual) (1.0-4.8) k/uL Myelocytes # (Manual) (0) k/uL Sodium (137-145) mmol/L Creatinine (0.52-1.04) mg/dL Glucose (74-99) mg/dL POC Glucose (mg/dL) 50 L 64 L 106 H (75-99) mg/dL Calcium (8.4-10.2) mg/dL Procalcitonin (0.02-0.09) ng/mL 05/16/21 Range/Units 11:42 WBC (3.8-10.6) k/uL RBC (3.80-5.40) m/uL Hgb (11.4-16.0) gm/dL Hct (34.0-46.0) % MCHC (31.0-37.0) g/dL RDW (11.5-15.5) % Neutrophils # (Manual) (1.3-7.7) k/uL Lymphocytes # (Manual) (1.0-4.8) k/uL Myelocytes # (Manual) (0) k/uL Sodium (137-145) mmol/L Creatinine (0.52-1.04) mg/dL Glucose (74-99) mg/dL POC Glucose (mg/dL) 184 H (75-99) mg/dL Calcium (8.4-10.2) mg/dL Procalcitonin (0.02-0.09) ng/mL Assessment and Plan Assessment: Acute diabetic ketoacidosis. resolved Bilateral multifocal pneumonia Acute hypoxic respiratory failure currently requiring 6 L-->15L--10L--6L--10L --8L--5L oxygen via nasal cannula Acute urinary tract infection.Initial cultures showing multi organisms possible contaminated sample. Repeat urinalysis is negative for infection. Sepsis secondary to above. Patient is tachycardic tachypneic and WBC 33 on admission Hypokalemia and hypomagnesemia replaced. chronic back pain Bilateral lower extremity diabetic peripheral neuropathy Anxiety/depression DVT prophylaxis with heparin subcu Plan: Patient is being treated with broad-spectrum antibiotics due to multifocal bronchopneumonia. titrate down Fio2 DKA has resolved. Insulin dose changed to subcu. CT chest was done.showed extensive Pneumonic process.CTA negative for PE. Initial cultures showing multi organisms possible contaminated sample. Repeat urinalysis is negative for infection. Encourage oral intake. Pulmonary and ID is on board.
[2021-05-16 18:10] VITALS: TEMP 98.1
--- NOTE | 2021-05-16 20:22 | PN ---
PROGRESS NOTE DATE OF SERVICE: 05/16/2021 REASON FOR FOLLOWUP: 1. pneumonia. 2. Positive culture with MRSA. INTERVAL HISTORY: The patient was seen on rounds this afternoon. The patient has been afebrile. She has been breathing comfortably and is down to 2 L nasal cannula. The patient denies having any chest pain. She did have a cough with occasional sputum. Sputum cultures were requested, not obtained. No vomiting. No abdominal pain. Did have some diarrhea. No urinary symptoms. PHYSICAL EXAMINATION: Blood pressure 106/68 with a pulse of 104, temperature 98.1. She is 96% on 2 L nasal cannula. General description is a middle-aged female up in the bed in no distress. Respiratory system: Unlabored breathing. Coarse breath sounds with left-sided wheeze. Heart S1, S2. Regular rate and rhythm. Abdomen soft, no tenderness. LABS: Hemoglobin is 8.9, white count 12.8, creatinine 0.43. DIAGNOSTIC IMPRESSION AND PLAN: 1. Patient with a positive urine culture with MRSA Escherichia coli and Streptococcus, possible contamination or colonization, as the patient's repeat UA is negative. No need for further antibiotic therapy for the same. 2. Patient with left-sided pneumonia with slight worsening, possible aspiration, as the patient was admitted to hospital with acute nausea, vomiting and diarrhea. Seems to be clinically responding to Zosyn. However, the patient has been insisting on going home, though she was advised to stay in the hospital, where the patient AMA. Antibiotic will be switched over to oral Augmentin 875 b.i.d. for a week with close outpatient followup. MMODL / IJN: [id number] /
[2021-05-16 20:29] LABS: Glucose,Whole Blood 299 mg/dL (75-99)
[2021-05-16] MEDS: INSULIN DETEMIR (LEVEMIR) 100 UNIT/ML SYR SQ SCH (20:34)
[2021-05-16 21:23] VITALS: BP 112/62; PULSE 121; RESP 18
== END 2021-05-16 21:33 | disposition home health service (06) | DRG 871 ==
LOC: EC 02:05 → 3SCARD 05:34
PROVIDERS: ADMIT Hospitalist; ATTEND Hospitalist
PROC: 5A09357 Assistance with Respiratory Ventilation, Less than 24 Consecutive Hours, Continuous Positive Airway Pressure (ICD-10-PCS; principal; 2021-05-06)
DX: A41.9 Sepsis, unspecified organism (principal); E10.10 Type 1 diabetes mellitus with ketoacidosis without coma; J15.212 Pneumonia due to Methicillin resistant Staphylococcus aureus; J96.01 Acute respiratory failure with hypoxia; J90 Pleural effusion, not elsewhere classified; N39.0 Urinary tract infection, site not specified; R64 Cachexia; Z68.1 Body mass index [BMI] 19.9 or less, adult; E10.319 Type 1 diabetes mellitus with unspecified diabetic retinopathy without macular edema; E10.42 Type 1 diabetes mellitus with diabetic polyneuropathy; E10.649 Type 1 diabetes mellitus with hypoglycemia without coma; Z96.41 Presence of insulin pump (external) (internal); Z79.4 Long term (current) use of insulin; B96.89 Other specified bacterial agents as the cause of diseases classified elsewhere; E83.42 Hypomagnesemia; E86.0 Dehydration; E87.6 Hypokalemia; M79.604 Pain in right leg; M79.605 Pain in left leg; F32.A Depression, unspecified; Z86.16 Personal history of COVID-19; Z20.822 Contact with and (suspected) exposure to COVID-19; M54.50 Low back pain, unspecified; F41.9 Anxiety disorder, unspecified; K59.09 Other constipation; G89.29 Other chronic pain; Z79.899 Other long term (current) drug therapy; Z80.8 Family history of malignant neoplasm of other organs or systems; Z82.49 Family history of ischemic heart disease and other diseases of the circulatory system; Z83.3 Family history of diabetes mellitus; Z98.890 Other specified postprocedural states; Z98.51 Tubal ligation status; Z86.14 Personal history of Methicillin resistant Staphylococcus aureus infection; Z83.2 Family history of diseases of the blood and blood-forming organs and certain disorders involving the immune mechanism; Z71.3 Dietary counseling and surveillance
CPT/HCPCS: 36415; 71045; 71250; 71275; 80048; 80051; 80053; 80202; 81001; 81003; 82009; 82140; 82565; 82803; 82947; 83540; 83550; 83605; 83615; 83735; 83880; 84100; 84132; 84145; 84484; 84520; 85025; 85610; 85730; 86140; 86850; 86900; 86901; 86920; 87077; 87086; 87186; 87324; 87635; 93005; 94640; 94760; 96361; 96365; 96375; 99291

== ENCOUNTER 2021-05-17 10:15 | Inpatient (IN) | payer OTHER ==
[2021-05-17 10:44] LABS: Glucose,Whole Blood 57 mg/dL (75-99)
[2021-05-17] MEDS ORDERED: DEXTROSE 50% SYRINGE 50 ML IVP STA (10:50)
[2021-05-17] MEDS ORDERED: SODIUM CHLORIDE 0.9% 500 ML 500 ML IV ONE ×2 (11:12→13:01)
[2021-05-17 11:15] LABS: Glucose,Whole Blood 179 mg/dL (75-99)
--- NOTE | 2021-05-17 11:20 | ED ---
General Adult HPI - General Chief complaint: Recheck/Abnormal Lab/Rx Stated complaint: hypoglycemia Time Seen by Provider: 05/17/21 11:04 Source: patient, EMS, RN notes reviewed, old records reviewed Mode of arrival: EMS Limitations: no limitations - History of Present Illness Initial comments: 36-year-old female presents to the emergency room via EMS with low blood sugar. Patient states that she does not remember taking her insulin today. She doesn't remember getting to the hospital. She states that she is hungry. Denies any other complaints of nausea vomiting or diarrhea. She states that she has back pain. EMS told the nurse that upon arrival family was doing CPR. She was found have a blood glucose of 36 at that time. She states she was just discharged from the hospital yesterday but does not know why. According to medical records she was discharged yesterday with pneumonia. DKA and dehydration. Patient states that she lives at home with her 8 and 9-year-old children. -: hour(s) (2) Location: back Radiation: non-radiation Severity scale (1-10): 10 Quality: constant Associated Symptoms: denies other symptoms Treatments Prior to Arrival: other (d50) - Related Data Home Medications Medication Instructions Recorded Confirmed Escitalopram [Lexapro] 20 mg PO DAILY 04/26/20 05/17/21 Omeprazole 20 mg PO DAILY 11/14/20 05/17/21 ALPRAZolam [Xanax] 0.25 mg PO DAILY PRN 05/09/21 05/17/21 Amitriptyline HCl [Elavil] 10 mg PO HS 05/09/21 05/17/21 Cholecalciferol [Vitamin D3 (25 50 mcg PO DAILY 05/09/21 05/17/21 Mcg = 1000 Iu)] INSULIN LISPRO (humaLOG) [humaLOG] 40 units SQ AC-TID 05/09/21 05/17/21 INSULIN LISPRO (humaLOG) [humaLOG] See Protocol SQ AC-TID 05/09/21 05/17/21 Insulin Detemir [Levemir Flextouch 35 units SQ HS 05/09/21 05/17/21 Pen] Montelukast [Singulair] 10 mg PO HS 05/09/21 05/17/21 Rizatriptan Odt [Maxalt [place]] 10 mg PO DAILY PRN 05/09/21 05/17/21 Zinc 50 mg PO DAILY 05/09/21 05/17/21 lisinopriL [Zestril] 2.5 mg PO DAILY 05/09/21 05/17/21 tiZANidine [Zanaflex] 4 mg PO BID PRN 05/09/21 05/17/21 Amoxicillin/Potassium Clav 1 tab PO BID 05/17/21 05/17/21 [Augmentin 875-125 Tablet] Previous Rx's Medication Instructions Recorded Metoprolol Tartrate [Lopressor] 12.5 mg PO BID #60 tab 05/16/21 Pregabalin [Lyrica] 75 mg PO TID #7 cap 05/16/21 Allergies Allergy/AdvReac Type Severity Reaction Status Date / Time No Known Allergies Allergy Verified 05/17/21 11:59 Review of Systems ROS Statement: Those systems with pertinent positive or pertinent negative responses have been documented in the HPI. ROS Other: All systems not noted in ROS Statement are negative. Past Medical History Past Medical History: Diabetes Mellitus, Syncope Additional Past Medical History / Comment(s): IDDM type I, neuropathy bilateral legs/feet, chronic low back pain, bilateral leg pain, migraines, hx chronic constipation. Hx HPV. Having diarrhea with any intake of food, chronic History of Any Multi-Drug Resistant Organisms: MRSA Date of last positivie culture/infection: 02/15/19 MDRO Source:: Head Past Surgical History: Tubal Ligation, Uterine Ablation Additional Past Surgical History / Comment(s): 12/22/17 colonoscopy, LAPAROSCOPIC REMOVAL Rt TUBE AND OVARY d/t endometriosis, D&C, HYSTEROSCOPY, NOVASURE ABLATION 2015. 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 Past Psychological History: Anxiety, Depression Smoking Status: Never smoker Past Alcohol Use History: None Reported Past Drug Use History: None Reported - Past Family History Mother Family Medical History: No Reported History, Rheumatoid Arthritis (RA) Additional Family Medical History / Comment(s): Mother is 63 yrs old. Father Family Medical History: Cancer, Diabetes Mellitus, Deep Vein Thrombosis (DVT), Hypertension Additional Family Medical History / Comment(s): THROAT CA- of but pt does not know at what age. General Exam Limitations: no limitations, altered mental status (Confused about surrounding events does not remember why she was recently hospitalized or how she got here today) General appearance: alert, in no apparent distress Head exam: Present: atraumatic, normocephalic Eye exam: Present: normal appearance, EOMI. Absent: scleral icterus, conjunctival injection, nystagmus, periorbital swelling, periorbital tenderness ENT exam: Present: mucous membranes dry, other (Bleeding to her tongue, lesions to tongue appears skyler) Neck exam: Present: normal inspection, full ROM. Absent: tenderness, meningismus, lymphadenopathy, thyromegaly Respiratory exam: Present: rhonchi (Course throughout). Absent: respiratory distress, wheezes, stridor, chest wall tenderness, accessory muscle use, decreased breath sounds Cardiovascular Exam: Present: regular rate, normal rhythm, normal heart sounds. Absent: systolic murmur, diastolic murmur, rubs, gallop, clicks, JVD GI/Abdominal exam: Present: soft, normal bowel sounds. Absent: distended, tenderness, guarding, rebound, rigid Extremities exam: Absent: pedal edema Back exam: Present: normal inspection. Absent: tenderness, CVA tenderness (R), CVA tenderness (L), rash noted Neurological exam: Present: alert, oriented X3 (alert to Person place and time but not surrounding events bringing her to the hospital today) Psychiatric exam: Present: normal affect, normal mood Skin exam: Present: warm, dry, intact, pallor. Absent: rash, cyanosis, diaphoretic Course Vital Signs 05/17/21 05/17/21 10:21 16:00 Temperature 94.7 F L Pulse Rate 95 114 H Respiratory 18 18 Rate Blood Pressure 128/93 118/76 O2 Sat by Pulse 98 93 L Oximetry EKG Findings - EKG Results: EKG: sinus rhythm EKG shows: tachycardia (Ventricular rate of 103, AL interval 0.132, QRS 0.82, QTC 0.468) Medical Decision Making - Medical Decision Making 36-year-old female presents via EMS with low blood sugar. EMS told the nurse that upon arrival family was doing CPR. She was found have a blood glucose of 36 at that time and was given IV dextrose. She was discharged from the hospital yesterday with pneumonia, DKA and dehydration. White blood cell count today is elevated at 21.9, hemoglobin and hematocrit are stable 8.8, sodium is 129, blood glucose levels continue to trend downward and she was started on D5 0.9. She is tolerating food in the ED. Chest x-ray shows diffuse left lung consolidation with air bronchograms. There is a developing multifocal right lung base continued COVID-19 infection progression. Patient's oxygen saturation 98% on 3 L nasal cannula. Patient's temperature is 94.7 but is refusing rectal temp. I did discuss with the patient that she should be admitted to the hospital for observation to monitor her hypoglycemia and worsening pneumonia. She is agreeable to only an overnight stay but then wants to be discharged home. Case discussed Dr. Shannon - Lab Data Result diagrams: 05/17/21 12:40 05/17/21 12:40 Lab Results 05/17/21 05/17/21 05/17/21 Range/Units 10:40 11:13 12:40 WBC 21.9 H (3.8-10.6) k/uL RBC 3.48 L (3.80-5.40) m/uL Hgb 8.8 L (11.4-16.0) gm/dL Hct 28.7 L (34.0-46.0) % MCV 82.5 (80.0-100.0) fL MCH 25.3 (25.0-35.0) pg MCHC 30.6 L (31.0-37.0) g/dL RDW 16.0 H (11.5-15.5) % Plt Count 474 H (150-450) k/uL MPV 7.9 Neutrophils % 90 % Lymphocytes % 4 % Monocytes % 5 % Eosinophils % 0 % Basophils % 0 % Neutrophils # 19.7 H (1.3-7.7) k/uL Lymphocytes # 0.9 L (1.0-4.8) k/uL Monocytes # 1.0 (0-1.0) k/uL Eosinophils # 0.1 (0-0.7) k/uL Basophils # 0.0 (0-0.2) k/uL Hypochromasia Marked Poikilocytosis Slight Anisocytosis Slight Sodium (137-145) mmol/L Potassium (3.5-5.1) mmol/L Chloride (98-107) mmol/L Carbon Dioxide (22-30) mmol/L Anion Gap mmol/L BUN (7-17) mg/dL Creatinine (0.52-1.04) mg/dL Est GFR (CKD-EPI)AfAm (>60 ml/min/1.73 sqM) Est GFR (CKD-EPI)NonAf (>60 ml/min/1.73 sqM) Glucose (74-99) mg/dL POC Glucose (mg/dL) 57 L 179 H (75-99) mg/dL POC Glu District Adviser ID Varun, Vero Bond, Vero Plasma Lactic Acid Silvino (0.7-2.0) mmol/L Calcium (8.4-10.2) mg/dL Total Bilirubin (0.2-1.3) mg/dL AST (14-36) U/L ALT (4-34) U/L Alkaline Phosphatase (38-126) U/L Troponin I (0.000-0.034) ng/mL Total Protein (6.3-8.2) g/dL Albumin (3.5-5.0) g/dL Urine Color Urine Appearance (Clear) Urine pH (5.0-8.0) Ur Specific [place] (1.001-1.035) Urine Protein (Negative) Urine Glucose (UA) (Negative) Urine Ketones (Negative) Urine Blood (Negative) Urine Nitrite (Negative) Urine Bilirubin (Negative) Urine Urobilinogen (<2.0) mg/dL Ur Leukocyte Esterase (Negative) Urine RBC (0-5) /hpf Urine WBC (0-5) /hpf Ur Squamous Epith Cells (0-4) /hpf Urine Bacteria (None) /hpf Urine Mucus (None) /hpf Urine Yeast (Budding) (None) /hpf Urine Opiates Screen (NotDetected) Ur Oxycodone Screen (NotDetected) Urine Methadone Screen (NotDetected) Ur Propoxyphene Screen (NotDetected) Ur Barbiturates Screen (NotDetected) U Tricyclic Antidepress (NotDetected) Ur Phencyclidine Scrn (NotDetected) Ur Amphetamines Screen (NotDetected) U Methamphetamines Scrn (NotDetected) U Benzodiazepines Scrn (NotDetected) Urine Cocaine Screen (NotDetected) U Marijuana (THC) Screen (NotDetected) 05/17/21 05/17/21 05/17/21 Range/Units 12:40 12:40 12:41 WBC (3.8-10.6) k/uL RBC (3.80-5.40) m/uL Hgb (11.4-16.0) gm/dL Hct (34.0-46.0) % MCV (80.0-100.0) fL MCH (25.0-35.0) pg MCHC (31.0-37.0) g/dL RDW (11.5-15.5) % Plt Count (150-450) k/uL MPV Neutrophils % % Lymphocytes % % Monocytes % % Eosinophils % % Basophils % % Neutrophils # (1.3-7.7) k/uL Lymphocytes # (1.0-4.8) k/uL Monocytes # (0-1.0) k/uL Eosinophils # (0-0.7) k/uL Basophils # (0-0.2) k/uL Hypochromasia Poikilocytosis Anisocytosis Sodium 129 L (137-145) mmol/L Potassium 4.4 (3.5-5.1) mmol/L Chloride 102 (98-107) mmol/L Carbon Dioxide 24 (22-30) mmol/L Anion Gap 3 mmol/L BUN 7 (7-17) mg/dL Creatinine 0.29 L (0.52-1.04) mg/dL Est GFR (CKD-EPI)AfAm >90 (>60 ml/min/1.73 sqM) Est GFR (CKD-EPI)NonAf >90 (>60 ml/min/1.73 sqM) Glucose 86 (74-99) mg/dL POC Glucose (mg/dL) 88 (75-99) mg/dL POC Glu District Adviser ID Hermelindo Baez Plasma Lactic Acid Silvino (0.7-2.0) mmol/L Calcium 7.2 L (8.4-10.2) mg/dL Total Bilirubin 0.7 (0.2-1.3) mg/dL AST 34 (14-36) U/L ALT 11 (4-34) U/L Alkaline Phosphatase 105 (38-126) U/L Troponin I <0.012 (0.000-0.034) ng/mL Total Protein 5.6 L (6.3-8.2) g/dL Albumin 2.0 L (3.5-5.0) g/dL Urine Color Urine Appearance (Clear) Urine pH (5.0-8.0) Ur Specific [place] (1.001-1.035) Urine Protein (Negative) Urine Glucose (UA) (Negative) Urine Ketones (Negative) Urine Blood (Negative) Urine Nitrite (Negative) Urine Bilirubin (Negative) Urine Urobilinogen (<2.0) mg/dL Ur Leukocyte Esterase (Negative) Urine RBC (0-5) /hpf Urine WBC (0-5) /hpf Ur Squamous Epith Cells (0-4) /hpf Urine Bacteria (None) /hpf Urine Mucus (None) /hpf Urine Yeast (Budding) (None) /hpf Urine Opiates Screen (NotDetected) Ur Oxycodone Screen (NotDetected) Urine Methadone Screen (NotDetected) Ur Propoxyphene Screen (NotDetected) Ur Barbiturates Screen (NotDetected) U Tricyclic Antidepress (NotDetected) Ur Phencyclidine Scrn (NotDetected) Ur Amphetamines Screen (NotDetected) U Methamphetamines Scrn (NotDetected) U Benzodiazepines Scrn (NotDetected) Urine Cocaine Screen (NotDetected) U Marijuana (THC) Screen (NotDetected) 05/17/21 05/17/21 05/17/21 Range/Units 12:52 14:00 14:17 WBC (3.8-10.6) k/uL RBC (3.80-5.40) m/uL Hgb (11.4-16.0) gm/dL Hct (34.0-46.0) % MCV (80.0-100.0) fL MCH (25.0-35.0) pg MCHC (31.0-37.0) g/dL RDW (11.5-15.5) % Plt Count (150-450) k/uL MPV Neutrophils % % Lymphocytes % % Monocytes % % Eosinophils % % Basophils % % Neutrophils # (1.3-7.7) k/uL Lymphocytes # (1.0-4.8) k/uL Monocytes # (0-1.0) k/uL Eosinophils # (0-0.7) k/uL Basophils # (0-0.2) k/uL Hypochromasia Poikilocytosis Anisocytosis Sodium (137-145) mmol/L Potassium (3.5-5.1) mmol/L Chloride (98-107) mmol/L Carbon Dioxide (22-30) mmol/L Anion Gap mmol/L BUN (7-17) mg/dL Creatinine (0.52-1.04) mg/dL Est GFR (CKD-EPI)AfAm (>60 ml/min/1.73 sqM) Est GFR (CKD-EPI)NonAf (>60 ml/min/1.73 sqM) Glucose (74-99) mg/dL POC Glucose (mg/dL) 83 (75-99) mg/dL POC Glu District Adviser ID Hermelindo Baez Plasma Lactic Acid Silvino 1.3 (0.7-2.0) mmol/L Calcium (8.4-10.2) mg/dL Total Bilirubin (0.2-1.3) mg/dL AST (14-36) U/L ALT (4-34) U/L Alkaline Phosphatase (38-126) U/L Troponin I (0.000-0.034) ng/mL Total Protein (6.3-8.2) g/dL Albumin (3.5-5.0) g/dL Urine Color Light Yellow Urine Appearance Cloudy H (Clear) Urine pH 5.0 (5.0-8.0) Ur Specific [place] 1.009 (1.001-1.035) Urine Protein Trace H (Negative) Urine Glucose (UA) 1+ H (Negative) Urine Ketones Negative (Negative) Urine Blood Negative (Negative) Urine Nitrite Negative (Negative) Urine Bilirubin Negative (Negative) Urine Urobilinogen <2.0 (<2.0) mg/dL Ur Leukocyte Esterase Small H (Negative) Urine RBC 8 H (0-5) /hpf Urine WBC 9 H (0-5) /hpf Ur Squamous Epith Cells 1 (0-4) /hpf Urine Bacteria Rare H (None) /hpf Urine Mucus Few H (None) /hpf Urine Yeast (Budding) Many H (None) /hpf Urine Opiates Screen Not Detected (NotDetected) Ur Oxycodone Screen Not Detected (NotDetected) Urine Methadone Screen Not Detected (NotDetected) Ur Propoxyphene Screen Not Detected (NotDetected) Ur Barbiturates Screen Not Detected (NotDetected) U Tricyclic Antidepress Not Detected (NotDetected) Ur Phencyclidine Scrn Not Detected (NotDetected) Ur Amphetamines Screen Not Detected (NotDetected) U Methamphetamines Scrn Not Detected (NotDetected) U Benzodiazepines Scrn Not Detected (NotDetected) Urine Cocaine Screen Not Detected (NotDetected) U Marijuana (THC) Screen Not Detected (NotDetected) Disposition Clinical Impression: Pneumonia, Hypoglycemia, Hyponatremia Disposition: ADMITTED IP TO THIS HOSP Decision Date: 05/17/21 Decision Time: 14:19
[2021-05-17 12:42] LABS: Glucose,Whole Blood 88 mg/dL (75-99)
[2021-05-17 12:46] LABS: Anisocytosis Slight; Basophils % (A) 0 %; Eosinophils # (A) 0.1 k/uL (0-0.7); Eosinophils % (A) 0 %; HCT 28.7 % (34.0-46.0); HGB 8.8 gm/dL (11.4-16.0); Hypochromasia Marked; Lymphocytes # (A) 0.9 k/uL (1.0-4.8); Lymphocytes % (A) 4 %; MCH 25.3 pg (25.0-35.0); MCHC 30.6 g/dL (31.0-37.0); MCV 82.5 fL (80.0-100.0); Mean Platelet Volume 7.9; Monocytes % (A) 5 %; Neutrophils # (A) 19.7 k/uL (1.3-7.7); Neutrophils % (A) 90 %; Platelet Count 474 k/uL (150-450); Poikilocytosis Slight; RBC 3.48 m/uL (3.80-5.40); WBC 21.9 k/uL (3.8-10.6)
[2021-05-17 12:55] LABS: ALT 11 U/L (4-34); AST 34 U/L (14-36); African American GFR (CKD) >90 (>60 ml/min/1.73 sqM); Alkaline Phosphatase 105 U/L (38-126); Anion Gap 3 mmol/L; Blood Urea Nitrogen 7 mg/dL (7-17); Calcium 7.2 mg/dL (8.4-10.2); Carbon Dioxide 24 mmol/L (22-30); Chloride 102 mmol/L (98-107); Glucose 86 mg/dL (74-99); Non-African American GFR(CKD) >90 (>60 ml/min/1.73 sqM); Sodium 129 mmol/L (137-145); Total Bilirubin 0.7 mg/dL (0.2-1.3); Total Protein 5.6 g/dL (6.3-8.2)
[2021-05-17 12:58] LABS: Potassium 4.4 mmol/L (3.5-5.1)
--- NOTE | 2021-05-17 13:10 | XR ---
EXAMINATION TYPE: XR chest 2V DATE OF EXAM: 05/17/2021 COMPARISON: Chest x-ray and CT from 4 days ago HISTORY: Shortness of breath. TECHNIQUE: Frontal and lateral views of the chest are obtained. FINDINGS: Diffuse left lung consolidation with air bronchograms redemonstrated. Silhouetting left he art border redemonstrated. New multifocal right lung opacities . The osseous structures are intact. IMPRESSION: As above. Developing multifocal right lung opacities consistent with continue covid-19 i nfection progression.
[2021-05-17 13:26] LABS: Appearance,Urine Cloudy (Clear); Bacteria,Urine Rare /hpf; Bilirubin,Urine Negative (Negative); Blood,Urine Negative (Negative); Budding Yeast,Urine Many /hpf; Color,Urine Light Yellow; Glucose,Urine (UA) 1+ (Negative); Ketones,Urine Negative (Negative); Leukocyte Esterase,Urine Small (Negative); Mucus,Urine Few /hpf; Nitrite,Urine Negative (Negative); Protein,Urine Trace (Negative); RBC,Urine 8 /hpf (0-5); Specific Gravity,Urine 1.009 (1.001-1.035); Squamous Epithelial Cell,Urine 1 /hpf (0-4); Urobilinogen,Urine <2.0 mg/dL (<2.0); WBC,Urine 9 /hpf (0-5)
[2021-05-17 13:41] LABS: Amphetamine Screen,Urine Not Detected (NotDetected); Barbiturate Screen,Urine Not Detected (NotDetected); Benzodiazepines Screen,Urine Not Detected (NotDetected); Cocaine Screen,Urine Not Detected (NotDetected); Methadone Screen, Urine Not Detected (NotDetected); Opiate Screen,Urine Not Detected (NotDetected); Oxycodone Screen, Urine Not Detected (NotDetected); Phencyclidine Screen,Urine Not Detected (NotDetected); Tricyclic Antidepressant,Urine Not Detected (NotDetected); Urn Cannabinoid Scrn Not Detected (NotDetected)
[2021-05-17 14:03] LABS: Glucose,Whole Blood 83 mg/dL (75-99)
[2021-05-17] MEDS ORDERED: NALOXONE 0.4 MG/ML 1 ML VIAL IV PRN (14:17)
[2021-05-17] MEDS ORDERED: SUMAtriptan succinate 50 MG TAB PO PRN (15:08)
[2021-05-17] MEDS ORDERED: ALPRAZolam 0.25 MG TAB PO PRN (15:08)
[2021-05-17] MEDS ORDERED: tiZANidine 4 MG TAB PO PRN (15:08)
[2021-05-17] MEDS: DEXTROSE 5%-0.9% NACL 1,000 ML IV SCH (15:53)
[2021-05-17 16:13] LABS: Glucose,Whole Blood 335 mg/dL (75-99)
[2021-05-17] MEDS: FLUCONAZOLE IN NACL,ISO-OSM 200 MG in SALINE 1 100ML.BAG IVPB SCH (18:01)
[2021-05-17] MEDS: PREGABALIN 75 MG CAP PO SCH (18:26)
[2021-05-17 18:55] LABS: Glucose,Whole Blood 198 mg/dL (75-99)
--- NOTE | 2021-05-17 18:58 | P.CNPUL ---
History of Present Illness Consult date: 05/17/21 Requesting physician: Jairo Conroy Reason for consult: hypoxemia, pneumonia, abnormal CXR/CT Chief complaint: Pneumonia. History of present illness: Pulmonary consult dated 05/17/2021. This is a 36-year-old old female, seen in the emergency room, room 10. The patient was just discharged out of the hospital yesterday, May 16. The patient apparently returned to the emergency room, with a low blood sugar. She was brought in by EMS. She apparently has no memory of why she was in the ospital. She apparently was hungry when she came into the ER. She complained of back pain. Her blood glucose on arrival was 36. The patient was in the hospital recently for a left-sided pneumonia. The patient also has a history of diabetes with diabetic ketoacidosis. The patient is currently on O2 at 2 L. She's getting D5 0.9 at 75 mL an hour. She was given Augmentin, but we discontinued it in favor of Zosyn. The patient has a history of diabetes, diabetic neuropathy, chronic low back pain, migraine cephalgia, chronic constipation, and prior MRSA infection. White count 21.9, hemoglobin 8.8, hematocrit 28.7, and platelet count 474,000. Sodium 129, potassium 4.4, chlorides 102, CO2 24, anion gap 3, BUN 7, with a creatinine of 0.29. Albumin is 2. Urine is light yellow in color, and cloudy, leukocyte esterase being small positive, 9 WBCs, and rare bacteria. Drug screen is negative. Testing for ling virus was negative. Chest x-ray shows bilateral pneumonia, with dense consolidation within the left lung, and much less infiltrate in the right base. Review of Systems REVIEW OF SYSTEMS: CONSTITUTIONAL: [Negative.] NEUROLOGIC: Mental status changes. HEENT: [ Negative.] CARDIAC: [Negative.] PULMONARY: Nonproductive cough. GI: [Negative.] : [Negative.] RHEUMATOLOGIC: [ Negative.] IMMUNOLOGIC: [ Negative.] ENDOCRINE: Hypoglycemia. DERMATOLOGIC: [Negative.] Past Medical History Past Medical History: Diabetes Mellitus, Syncope Additional Past Medical History / Comment(s): IDDM type I, neuropathy bilateral legs/feet, chronic low back pain, bilateral leg pain, migraines, hx chronic constipation. Hx HPV. Having diarrhea with any intake of food, chronic History of Any Multi-Drug Resistant Organisms: MRSA Date of last positivie culture/infection: 02/15/19 MDRO Source:: Head Past Surgical History: Tubal Ligation, Uterine Ablation Additional Past Surgical History / Comment(s): 12/22/17 colonoscopy, LAPAROSCOPIC REMOVAL Rt TUBE AND OVARY d/t endometriosis, D&C, HYSTEROSCOPY, NOVASURE ABLATION 2015. 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 Past Psychological History: Anxiety, Depression Smoking Status: Never smoker Past Alcohol Use History: None Reported Past Drug Use History: None Reported - Past Family History Mother Family Medical History: No Reported History, Rheumatoid Arthritis (RA) Additional Family Medical History / Comment(s): Mother is 63 yrs old. Father Family Medical History: Cancer, Diabetes Mellitus, Deep Vein Thrombosis (DVT), Hypertension Additional Family Medical History / Comment(s): THROAT CA- of but pt does not know at what age. Medications and Allergies Home Medications Medication Instructions Recorded Confirmed Type Escitalopram [Lexapro] 20 mg PO DAILY 04/26/20 05/17/21 History Omeprazole 20 mg PO DAILY 11/14/20 05/17/21 History ALPRAZolam [Xanax] 0.25 mg PO DAILY PRN 05/09/21 05/17/21 History Amitriptyline HCl [Elavil] 10 mg PO HS 05/09/21 05/17/21 History Cholecalciferol [Vitamin D3 (25 50 mcg PO DAILY 05/09/21 05/17/21 History Mcg = 1000 Iu)] INSULIN LISPRO (humaLOG) [humaLOG] 40 units SQ AC-TID 05/09/21 05/17/21 History INSULIN LISPRO (humaLOG) [humaLOG] See Protocol SQ AC-TID 05/09/21 05/17/21 History Insulin Detemir [Levemir Flextouch 35 units SQ HS 05/09/21 05/17/21 History Pen] Montelukast [Singulair] 10 mg PO HS 05/09/21 05/17/21 History Rizatriptan Odt [Maxalt [place]] 10 mg PO DAILY PRN 05/09/21 05/17/21 History Zinc 50 mg PO DAILY 05/09/21 05/17/21 History lisinopriL [Zestril] 2.5 mg PO DAILY 05/09/21 05/17/21 History tiZANidine [Zanaflex] 4 mg PO BID PRN 05/09/21 05/17/21 History Metoprolol Tartrate [Lopressor] 12.5 mg PO BID #60 tab 05/16/21 05/17/21 Rx Pregabalin [Lyrica] 75 mg PO TID #7 cap 05/16/21 05/17/21 Rx Amoxicillin/Potassium Clav 1 tab PO BID 05/17/21 05/17/21 History [Augmentin 875-125 Tablet] Allergies Allergy/AdvReac Type Severity Reaction Status Date / Time No Known Allergies Allergy Verified 05/17/21 11:59 Physical Exam Osteopathic Statement: *. No significant issues noted on an osteopathic structural exam other than those noted in the History and Physical/Consult. Vitals: Vital Signs Temp Pulse Resp BP Pulse Ox 05/17/21 16:00 114 H 18 118/76 93 L 05/17/21 10:21 94.7 F L 95 18 128/93 98 Intake and Output 05/17/21 05/17/21 05/17/21 06:59 14:59 22:59 Other: Weight 49.442 kg No acute distress, oriented 3. The patient is not manifesting any signs or symptoms of respiratory distress. She is on 2 L. Saturations are 98%. HEENT examination is grossly unremarkable. Neck supple. Full range of motion. No adenopathy thyromegaly or neck vein distention. Cardiovascular examination reveals regular rhythm rate. S1-S2 normal. No S3 or S4. No discernible murmur noted. Heart rate 95 bpm. Lungs reveal diminished breath sounds on the left. Scattered rhonchi bilaterally. No wheezes or crackles. Abdomen soft bowel sounds are heard. No masses or tenderness. Extremities are intact. No cyanosis clubbing or edema. Skin is without rash or lesion. Neurologic examination is brief but nonfocal. Results - Laboratory Findings CBC and BMP: 05/17/21 12:40 05/17/21 12:40 Abnormal lab findings: Abnormal Labs 05/17/21 05/17/21 05/17/21 10:40 11:13 12:40 WBC 21.9 H RBC 3.48 L Hgb 8.8 L Hct 28.7 L MCHC 30.6 L RDW 16.0 H Plt Count 474 H Neutrophils # 19.7 H Lymphocytes # 0.9 L Sodium Creatinine POC Glucose (mg/dL) 57 L 179 H Calcium Total Protein Albumin Urine Appearance Urine Protein Urine Glucose (UA) Ur Leukocyte Esterase Urine RBC Urine WBC Urine Bacteria Urine Mucus Urine Yeast (Budding) 05/17/21 05/17/21 05/17/21 12:40 12:52 16:10 WBC RBC Hgb Hct MCHC RDW Plt Count Neutrophils # Lymphocytes # Sodium 129 L Creatinine 0.29 L POC Glucose (mg/dL) 335 H Calcium 7.2 L Total Protein 5.6 L Albumin 2.0 L Urine Appearance Cloudy H Urine Protein Trace H Urine Glucose (UA) 1+ H Ur Leukocyte Esterase Small H Urine RBC 8 H Urine WBC 9 H Urine Bacteria Rare H Urine Mucus Few H Urine Yeast (Budding) Many H - Diagnostic Findings Chest x-ray: image reviewed Assessment and Plan Assessment: Mental status changes, secondary to hypoglycemia. History of diabetes, with a recent episode of diabetic ketoacidosis. Dense consolidation and pneumonia bilaterally, left greater than right. Recent discharge from the hospital on May 16, secondary to diabetic ketoacidosis, and left lung pneumonia. History of syncope. History of diabetic neuropathy. History of migraine cephalgia. Prior history of MRSA infection. Chronic constipation. Chronic low back pain. Plan: Plan dated 05/17/2021. The patient's Augmentin was discontinued, in favor of Zosyn. The patient is currently on 2 L nasal cannula, and saturations are 98%. She denies all pulmonary complaints including shortness of breath, cough, wheezing, chest congestion, and phlegm production. Hemodynamically, the patient is very stable. We will continue to follow make recommendations where appropriate. Prognosis is guarded. Repeat chest x-ray in 24-48 hours. Time with Patient: Greater than 30
[2021-05-17] MEDS ORDERED: AMOXIC-POT CLAV 875-125MG 1 EACH TAB PO SCH (21:00)
[2021-05-18] MEDS: MONTELUKAST 10 MG TAB PO SCH ×2 (00:58→20:29)
[2021-05-18] MEDS: METOPROLOL TARTRATE 12.5 MG TAB PO SCH ×3 (00:58→20:20)
[2021-05-18] MEDS: PREGABALIN 75 MG CAP PO SCH ×4 (00:58→20:29)
[2021-05-18] MEDS: AMITRIPTYLINE HCL 10 MG TAB PO SCH ×2 (00:58→20:29)
[2021-05-18] MEDS: PIPERACILLIN-TAZOBACTAM 3.375 GM in SODIUM CHLORIDE 0.9% 100 ML IVPB SCH ×4 (01:51→23:31)
[2021-05-18 02:02] LABS: Glucose,Whole Blood 357 mg/dL (75-99)
[2021-05-18 02:02] LABS: Glucose,Whole Blood 348 mg/dL (75-99)
[2021-05-18] MEDS: DEXTROSE 5%-0.9% NACL 1,000 ML IV SCH (02:42)
[2021-05-18 07:32] LABS: Glucose,Whole Blood 327 mg/dL (75-99)
[2021-05-18] MEDS: PANTOPRAZOLE 40 MG TABLET PO SCH (07:46)
[2021-05-18] MEDS: ZINC SULFATE 220 MG CAP PO SCH (07:46)
[2021-05-18] MEDS: CHOLECALCIFEROL 25 MCG (1000 IU) TABLET PO SCH (07:46)
[2021-05-18] MEDS: ESCITALOPRAM 20 MG TAB PO SCH (07:46)
[2021-05-18 08:46] LABS: Basophils # (A) 0.03 X 10*3/uL (0.00-0.10); Basophils % (A) 0.2 %; Eosinophils # (A) 0.02 X 10*3/uL (0.04-0.35); Eosinophils % (A) 0.1 %; HGB 7.2 g/dL (12.0-15.0); Immature Grans, Automated 1.2 %; Lymphocytes # (A) 0.72 X 10*3/uL (0.90-5.00); Lymphocytes % (A) 3.7 %; MCH 24.4 pg (27.0-32.0); MCV 81.4 fL (80.0-97.0); Mean Platelet Volume 10.5 fL (9.5-12.2); Monocytes # (A) 0.54 X 10*3/uL (0.20-1.00); Monocytes % (A) 2.8 %; NRBC Per 100 WBC 0 /100 WBCS (0.0-0.0); Neutrophils # (A) 17.75 X 10*3/uL (1.80-7.70); Platelet Count 449 X 10*3/uL (140-440); RBC 2.95 X 10*6/uL (4.10-5.20); RDW 16.4 % (11.5-14.5)
[2021-05-18] MEDS ORDERED: MAG HYDROX/AL HYDROX/SIMETH 30 ML, LIDOCAINE VISCOUS 30 ML, diphenhydrAMINE ELIXIR 75 M... PO SCH ×4 (09:00)
[2021-05-18 09:23] LABS: Anion Gap 12.3 mmol/L (10.00-18.00); BUN/Creat Ratio 18.05 Ratio (12.00-20.00); Blood Urea Nitrogen 7.2 mg/dL (9.0-27.0); C Reactive Protein 5.7 mg/dL (0.00-0.80); Calcium 7.1 mg/dL (8.7-10.3); Carbon Dioxide 21.2 mmol/L (20.0-27.5); Potassium 3.8 mmol/L (3.5-5.5)
[2021-05-18] MEDS: LOPERAMIDE 2 MG CAP PO PRN ×2 (09:50→17:05)
[2021-05-18] MEDS: ONDANSETRON 4 MG/2 ML VIAL IVP PRN ×2 (09:50→17:05)
--- NOTE | 2021-05-18 11:17 | P.CONS ---
History of Present Illness - Reason for Consult Consult date: 05/17/21 leukocytosis Requesting physician: Magan Mckenna - Chief Complaint unresponsive x 1 day - History of Present Illness History of present illness : Patient is 36-year female who was recently admitted at this facility and was treated for DKA did have a left-sided pneumonia question of aspiration etiology treated with Zosyn the patient was threatening to leave AMA yesterday subsequently was reluctantly discharged on oral Augmentin, patient was brought into the ER this morning after apparently the patient had episode of unresponsiveness the patient was noticed to have low blood sugar of 36 upon arrival of the EMS the patient family was doing the CPR patient did not remember what happened patient denies having any headache no URI symptoms no chest pain no shortness of patient did have a cough with minimal sputum no further nausea vomiting abdominal pain no diarrhea on presentation the hospital patient was hypothermic with a temperature of 24.7 mild hypoxia requiring supplemental oxygen did have white count of 21.9 creatinine was normal urine was mildly positive urinalysis was negative ling PCR was negative patient did have a chest x-ray developing multifocal right lung opacity consistent with the COVID-19 infection production patient was started on Diflucan on the basis of urine showing yeast infectious disease was consulted for further management of antibiotic Review of system: CONSTITUTIONAL: Positive for weakness denies high-grade fever. EYES: No complaint. ENT: No complaint. RESPIRATORY: As per history of present illness. CARDIOVASCULAR: No complaint. GENITOURINARY: No complaint. GASTROINTESTINAL: No complaint. MUSCULOSKELETAL: No complaint. INTEGUMENTARY: No complaint. PSYCHOLOGIC: No complaint. ENDOCRINE: No complaint. NEUROLOGIC: No complaint. Past medical history : Reviewed, documented below Past surgical history : Reviewed, documented below Social history: Reviewed, documented below Medications: Reviewed, as documented below EXAMINATION: Vital sigans= Reviewed and documented below GENERAL DESCRIPTION: Middle-aged female lying in bed, no distress. No tachypnea or accessory muscle of respiration use. HEENT: Shows Pallor , no scleral icterus. Oral mucous membrane is dry. NECK: Trachea central, no thyromegaly. LUNGS: Unlabored breathing. Coarse breath sounds bilaterally. No wheeze or crackle. HEART: S1, S2, regular rate and rhythm. ABDOMEN: Soft, no tenderness , guarding or rigidity EXTREMITIES: No edema of feet. SKIN: No rash, no masses palpable. NEUROLOGICAL: The patient is awake, alert, oriented x3, mood and affect normal. LABS AND RADIOLOGY: Reviewed results see below Assessment : Patient with elevated white count in this patient presented to hospital with unresponsiveness secondary to low blood sugar and was recently treated for DKA and left-sided pneumonia possible aspiration etiology with aspiration pneumonia to be the possible etiology UTI less likely bilateral excluded Plan: 1-we will try to obtain a sputum for Gram stain and culture and check a procalcitonin level 2-continue with Zosyn and Diflucan for now We will follow on clinical condition and cultures to further adjust medication if needed Thank you for this consultation we will follow the patient along with you Past Medical History Past Medical History: Diabetes Mellitus, Syncope Additional Past Medical History / Comment(s): IDDM type I, neuropathy bilateral legs/feet, chronic low back pain, bilateral leg pain, migraines, hx chronic constipation. Hx HPV. Having diarrhea with any intake of food, chronic History of Any Multi-Drug Resistant Organisms: MRSA Year Discovered:: 02/15/19 MDRO Source:: Head Past Surgical History: Tubal Ligation, Uterine Ablation Additional Past Surgical History / Comment(s): 12/22/17 colonoscopy, LAPAROSCOPIC REMOVAL Rt TUBE AND OVARY d/t endometriosis, D&C, HYSTEROSCOPY, NOVASURE ABLATI ON 2015. Past Anesthesia/Blood Transfusion Reactions: No Reported Reaction Additional Past Anesthesia/Blood Transfusion Reaction / Comm: HAD MULTI INJ FOR DENTAL WORK, NOVACAINE WAS INEFFECTIVE. Past Psychological History: Anxiety, Depression Smoking Status: Never smoker Past Alcohol Use History: None Reported Past Drug Use History: None Reported - Past Family History Mother Family Medical History: No Reported History, Rheumatoid Arthritis (RA) Additional Family Medical History / Comment(s): Mother is 63 yrs old. Father Family Medical History: Cancer, Diabetes Mellitus, Deep Vein Thrombosis (DVT), Hypertension Additional Family Medical History / Comment(s): THROAT CA- of but pt does not know at what age. Medications and Allergies Home Medications Medication Instructions Recorded Confirmed Type Escitalopram [Lexapro] 20 mg PO DAILY 04/26/20 05/17/21 History Omeprazole 20 mg PO DAILY 11/14/20 05/17/21 History ALPRAZolam [Xanax] 0.25 mg PO DAILY PRN 05/09/21 05/17/21 History Amitriptyline HCl [Elavil] 10 mg PO HS 05/09/21 05/17/21 History Cholecalciferol [Vitamin D3 (25 50 mcg PO DAILY 05/09/21 05/17/21 History Mcg = 1000 Iu)] INSULIN LISPRO (humaLOG) [humaLOG] 40 units SQ AC-TID 05/09/21 05/17/21 History INSULIN LISPRO (humaLOG) [humaLOG] See Protocol SQ AC-TID 05/09/21 05/17/21 History Insulin Detemir [Levemir Flextouch 35 units SQ HS 05/09/21 05/17/21 History Pen] Montelukast [Singulair] 10 mg PO HS 05/09/21 05/17/21 History Rizatriptan Odt [Maxalt [employer]] 10 mg PO DAILY PRN 05/09/21 05/17/21 History Zinc 50 mg PO DAILY 05/09/21 05/17/21 History lisinopriL [Zestril] 2.5 mg PO DAILY 05/09/21 05/17/21 History tiZANidine [Zanaflex] 4 mg PO BID PRN 05/09/21 05/17/21 History Metoprolol Tartrate [Lopressor] 12.5 mg PO BID #60 tab 05/16/21 05/17/21 Rx Pregabalin [Lyrica] 75 mg PO TID #7 cap 05/16/21 05/17/21 Rx Amoxicillin/Potassium Clav 1 tab PO BID 05/17/21 05/17/21 History [Augmentin 875-125 Tablet] Allergies Allergy/AdvReac Type Severity Reaction Status Date / Time No Known Allergies Allergy Verified 05/17/21 11:59 Physical Exam Vitals: Vital Signs Temp Pulse Resp BP Pulse Ox 05/17/21 10:21 94.7 F L 95 18 128/93 98 Intake and Output 05/17/21 05/17/21 05/17/21 06:59 14:59 22:59 Other: Weight 49.442 kg Results CBC & Chem 7: 05/18/21 04:33 05/18/21 04:33 Labs: Abnormal Lab Results - Last 24 Hours (Table) 05/17/21 05/17/21 05/17/21 Range/Units 10:40 11:13 12:40 WBC 21.9 H (3.8-10.6) k/uL RBC 3.48 L (3.80-5.40) m/uL Hgb 8.8 L (11.4-16.0) gm/dL Hct 28.7 L (34.0-46.0) % MCHC 30.6 L (31.0-37.0) g/dL RDW 16.0 H (11.5-15.5) % Plt Count 474 H (150-450) k/uL Neutrophils # 19.7 H (1.3-7.7) k/uL Lymphocytes # 0.9 L (1.0-4.8) k/uL Sodium (137-145) mmol/L Creatinine (0.52-1.04) mg/dL POC Glucose (mg/dL) 57 L 179 H (75-99) mg/dL Calcium (8.4-10.2) mg/dL Total Protein (6.3-8.2) g/dL Albumin (3.5-5.0) g/dL Urine Appearance (Clear) Urine Protein (Negative) Urine Glucose (UA) (Negative) Ur Leukocyte Esterase (Negative) Urine RBC (0-5) /hpf Urine WBC (0-5) /hpf Urine Bacteria (None) /hpf Urine Mucus (None) /hpf Urine Yeast (Budding) (None) /hpf 05/17/21 05/17/21 Range/Units 12:40 12:52 WBC (3.8-10.6) k/uL RBC (3.80-5.40) m/uL Hgb (11.4-16.0) gm/dL Hct (34.0-46.0) % MCHC (31.0-37.0) g/dL RDW (11.5-15.5) % Plt Count (150-450) k/uL Neutrophils # (1.3-7.7) k/uL Lymphocytes # (1.0-4.8) k/uL Sodium 129 L (137-145) mmol/L Creatinine 0.29 L (0.52-1.04) mg/dL POC Glucose (mg/dL) (75-99) mg/dL Calcium 7.2 L (8.4-10.2) mg/dL Total Protein 5.6 L (6.3-8.2) g/dL Albumin 2.0 L (3.5-5.0) g/dL Urine Appearance Cloudy H (Clear) Urine Protein Trace H (Negative) Urine Glucose (UA) 1+ H (Negative) Ur Leukocyte Esterase Small H (Negative) Urine RBC 8 H (0-5) /hpf Urine WBC 9 H (0-5) /hpf Urine Bacteria Rare H (None) /hpf Urine Mucus Few H (None) /hpf Urine Yeast (Budding) Many H (None) /hpf
[2021-05-18 11:36] LABS: Glucose,Whole Blood 371 mg/dL (75-99)
[2021-05-18] MEDS: FLUCONAZOLE IN NACL,ISO-OSM 200 MG in SALINE 1 100ML.BAG IVPB SCH (12:08)
[2021-05-18] MEDS: INSULIN ASPART (NovoLOG) 100 UNIT/ML VIAL SQ SCH ×3 (12:08→20:29)
--- NOTE | 2021-05-18 14:12 | P.PN ---
Subjective Progress Note Date: 05/18/21 Principal diagnosis: Hypoglycemia, pneumonia. Pulmonary consult dated 05/17/2021. This is a 36-year-old old female, seen in the emergency room, room 10. The patient was just discharged out of the hospital yesterday, May 16. The patient apparently returned to the emergency room, with a low blood sugar. She was brought in by EMS. She apparently has no memory of why she was in the hospital. She apparently was hungry when she came into the ER. She complained of back pain. Her blood glucose on arrival was 36. The patient was in the hospital recently for a left-sided pneumonia. The patient also has a history of diabetes with diabetic ketoacidosis. The patient is currently on O2 at 2 L. She's getting D5 0.9 at 75 mL an hour. She was given Augmentin, but we dis continued it in favor of Zosyn. The patient has a history of diabetes, diabetic neuropathy, chronic low back pain, migraine cephalgia, chronic constipation, and prior MRSA infection. White count 21.9, hemoglobin 8.8, hematocrit 28.7, and platelet count 474,000. Sodium 129, potassium 4.4, chlorides 102, CO2 24, anion gap 3, BUN 7, with a creatinine of 0.29. Albumin is 2. Urine is light yellow in color, and cloudy, leukocyte esterase being small positive, 9 WBCs, and rare bacteria. Drug screen is negative. Testing for ling virus was negative. Chest x-ray shows bilateral pneumonia, with dense consolidation within the left lung, and much less infiltrate in the right base. Progress note dated 05/18/2021. This is a 36-year-old female, who was seen in the emergency [facility] yesterday, and room 10. The patient was recently discharged from the hospital on May 16. She was brought back in for mental status changes, and a low blood sugar. Apparently her blood glucose was only 36. Her prior admission was for diabetic ketoacidosis, and left-sided ammonia. Currently, she is back to her normal self. The patient is on 4 L nasal O2. She's not complaining of any respiratory distress or difficulty. She has a dry nonproductive cough. She was placed on Zosyn yesterday by our team. She was seen by infectious diseases. She has a history of diabetes, diabetic neuropathy, chronic low back pain, migraine cephalgia, chronic constipation, and prior MRSA infection. Currently, white count 19.3, he will been 7.2, hematocrit 24, and platelet count 449,000. Sodium 133, potassium 3.8, chlorides 100, CO2 21, anion gap 12, UN 7, and creatinine 0.4. Pro-calcitonin level is 0.15. C-reactive protein is 5.7. Objective - Vital Signs Vital signs: Vital Signs Temp 98.7 F 05/18/21 07:41 Pulse 106 H 05/18/21 07:41 Resp 18 05/18/21 07:41 BP 109/70 05/18/21 07:41 Pulse Ox 91 L 05/18/21 07:41 Intake & Output 05/17/21 05/18/21 05/18/21 18:59 06:59 18:59 Weight 49.442 kg 49.442 kg Other: Voiding Method Bedside Commode - Exam No acute distress, oriented 3. The patient is not manifesting any signs or s ymptoms of respiratory distress. She is on 4 L. Saturations are 96%. HEENT examination is grossly unremarkable. Neck supple. Full range of motion. No adenopathy thyromegaly or neck vein distention. Cardiovascular examination reveals regular rhythm rate. S1-S2 normal. No S3 or S4. No discernible murmur noted. Heart rate 99 bpm. Lungs reveal diminished breath sounds on the left. Scattered rhonchi bilaterally. No wheezes or crackles. Abdomen soft bowel sounds are heard. No masses or tenderness. Extremities are intact. No cyanosis clubbing or edema. Skin is without rash or lesion. Neurologic examination is brief but nonfocal. - Labs CBC & Chem 7: 05/18/21 04:33 05/18/21 04:33 Labs: Abnormal Lab Results - Last 24 Hours (Table) 05/17/21 05/17/21 05/18/21 Range/Units 16:10 18:53 01:58 WBC (4.50-10.00) X 10*3/uL RBC (4.10-5.20) X 10*6/uL Hgb (12.0-15.0) g/dL Hct (37.2-46.3) % MCH (27.0-32.0) pg MCHC (32.0-37.0) g/dL RDW (11.5-14.5) % Plt Count (140-440) X 10*3/uL Immature Gran # (0.00-0.04) X 10*3/uL Neutrophils # (1.80-7.70) X 10*3/uL Lymphocytes # (0.90-5.00) X 10*3/uL Eosinophils # (0.04-0.35) X 10*3/uL Sodium (135-145) mmol/L BUN (9.0-27.0) mg/dL Creatinine (0.6-1.5) mg/dL Glucose (70-110) mg/dL POC Glucose (mg/dL) 335 H 198 H 348 H (75-99) mg/dL Calcium (8.7-10.3) mg/dL C-Reactive Protein (0.00-0.80) mg/dL Procalcitonin (0.02-0.09) ng/mL 05/18/21 05/18/21 05/18/21 Range/Units 02:00 04:33 04:33 WBC 19.30 H (4.50-10.00) X 10*3/uL RBC 2.95 L (4.10-5.20) X 10*6/uL Hgb 7.2 L (12.0-15.0) g/dL Hct 24.0 L (37.2-46.3) % MCH 24.4 L (27.0-32.0) pg MCHC 30.0 L (32.0-37.0) g/dL RDW 16.4 H (11.5-14.5) % Plt Count 449 H (140-440) X 10*3/uL Immature Gran # 0.24 H (0.00-0.04) X 10*3/uL Neutrophils # 17.75 H (1.80-7.70) X 10*3/uL Lymphocytes # 0.72 L (0.90-5.00) X 10*3/uL Eosinophils # 0.02 L (0.04-0.35) X 10*3/uL Sodium (135-145) mmol/L BUN (9.0-27.0) mg/dL Creatinine (0.6-1.5) mg/dL Glucose (70-110) mg/dL POC Glucose (mg/dL) 357 H (75-99) mg/dL Calcium (8.7-10.3) mg/dL C-Reactive Protein (0.00-0.80) mg/dL Procalcitonin 0.15 H (0.02-0.09) ng/mL 05/18/21 05/18/21 05/18/21 Range/Units 04:33 07:30 11:35 WBC (4.50-10.00) X 10*3/uL RBC (4.10-5.20) X 10*6/uL Hgb (12.0-15.0) g/dL Hct (37.2-46.3) % MCH (27.0-32.0) pg MCHC (32.0-37.0) g/dL RDW (11.5-14.5) % Plt Count (140-440) X 10*3/uL Immature Gran # (0.00-0.04) X 10*3/uL Neutrophils # (1.80-7.70) X 10*3/uL Lymphocytes # (0.90-5.00) X 10*3/uL Eosinophils # (0.04-0.35) X 10*3/uL Sodium 133 L (135-145) mmol/L BUN 7.2 L (9.0-27.0) mg/dL Creatinine 0.4 L (0.6-1.5) mg/dL Glucose 345 H (70-110) mg/dL POC Glucose (mg/dL) 327 H 371 H (75-99) mg/dL Calcium 7.1 L (8.7-10.3) mg/dL C-Reactive Protein 5.70 H (0.00-0.80) mg/dL Procalcitonin (0.02-0.09) ng/mL Assessment and Plan Assessment: Mental status changes, secondary to hypoglycemia. History of diabetes, with a recent episode of diabetic ketoacidosis. Dense consolidation and pneumonia bilaterally, left greater than right. Recent discharge from the hospital on May 16, secondary to diabetic ketoacidosis, and left lung pneumonia. History of syncope. History of diabetic neuropathy. History of migraine cephalgia. Prior history of MRSA infection. Chronic constipation. Chronic low back pain. Plan: Plan dated 05/17/2021. The patient's Augmentin was discontinued, in favor of Zosyn. The patient is currently on 2 L nasal cannula, and saturations are 98%. She denies all pulmonary complaints including shortness of breath, cough, wheezing, chest c ongestion, and phlegm production. Hemodynamically, the patient is very stable. We will continue to follow make recommendations where appropriate. Prognosis is guarded. Repeat chest x-ray in 24-48 hours. Plan dated 05/18/2021. The patient was seen by infectious diseases, and no changes made to the antibiotic. Culture data thus far has been negative. The patient's currently on 4 L nasal cannula. Saturations are in the mid to high 90s. The patient denies being short of breath. She does have an occasional dry cough. Not coughing up any phlegm. The patient will need a repeat chest x-ray. This will be done tomorrow morning. Additional recommendations and suggestions are forthcoming. Prognosis is guarded. Time with Patient: Less than 30
[2021-05-18] MEDS: NYSTATIN 100,000 UNIT/ML SUSP 500,000 UNIT/5 ML CUP PO SCH ×3 (15:20→20:30)
[2021-05-18 16:42] LABS: Glucose,Whole Blood 347 mg/dL (75-99)
--- NOTE | 2021-05-18 17:54 | P.HPIM ---
History of Present Illness H&P Date: 05/17/21 Chief Complaint: Hypoglycemia 36-year-old female presents to the emergency room via EMS with low blood sugar. Patient states that she does not remember taking her insulin today. She doesn't remember getting to the hospital. She states that she is hungry. Denies any other complaints of nausea vomiting or diarrhea. She states that she has back pain. EMS told the nurse that upon arrival family was doing CPR. She was found have a blood glucose of 36 at that time. She states she was just discharged from the hospital yesterday but does not know why. According to medical records she was discharged yesterday with pneumonia. DKA and dehydration. Patient states that she lives at home with her 8 and 9-year-old children. She's getting D5 0.9 at 75 mL an hour. She was given Augmentin, but we discontinued it in favor of Zosyn. The patient has a history of diabetes, diabetic neuropathy, chronic low back pain, migraine cephalgia, chronic constipation, and prior MRSA infection. White count 21.9, hemoglobin 8.8, hematocrit 28.7, and platelet count 474,000. Sodium 129, potassium 4.4, chlorides 102, CO2 24, anion gap 3, BUN 7, with a creatinine of 0.29. Albumin is 2. Urine is light yellow in color, and cloudy, leukocyte esterase being small positive, 9 WBCs, and rare bacteria. Drug screen is negative. Testing for ling virus was negative. Chest x-ray shows bilateral pneumonia, with dense consolidation within the left lung, and much less infiltrate in the right base. Review of Systems ROS unobtainable: due to mental status Past Medical History Past Medical History: Diabetes Mellitus, Syncope Additional Past Medical History / Comment(s): IDDM type I, neuropathy bilateral legs/feet, chronic low back pain, bilateral leg pain, migraines, hx chronic constipation. Hx HPV. Having diarrhea with any intake of food, chronic History of Any Multi-Drug Resistant Organisms: MRSA Date of last positivie culture/infection: 02/15/19 MDRO Source:: Head Past Surgical History: Tubal Ligation, Uterine Ablation Additional Past Surgical History / Comment(s): 12/22/17 colonoscopy, LAPAROSCOPIC REMOVAL Rt TUBE AND OVARY d/t endometriosis, D&C, HYSTEROSCOPY, NOVASURE ABLATION 2015. 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 Past Psychological History: Anxiety, Depression Smoking Status: Never smoker Past Alcohol Use History: None Reported Past Drug Use History: None Reported - Past Family History Mother Family Medical History: No Reported History, Rheumatoid Arthritis (RA) Additional Family Medical History / Comment(s): Mother is 63 yrs old. Father Family Medical History: Cancer, Diabetes Mellitus, Deep Vein Thrombosis (DVT), Hypertension Additional Family Medical History / Comment(s): THROAT CA- of but pt does not know at what age. Medications and Allergies Home Medications Medication Instructions Recorded Confirmed Type Escitalopram [Lexapro] 20 mg PO DAILY 04/26/20 05/17/21 History Omeprazole 20 mg PO DAILY 11/14/20 05/17/21 History ALPRAZolam [Xanax] 0.25 mg PO DAILY PRN 05/09/21 05/17/21 History Amitriptyline HCl [Elavil] 10 mg PO HS 05/09/21 05/17/21 History Cholecalciferol [Vitamin D3 (25 50 mcg PO DAILY 05/09/21 05/17/21 History Mcg = 1000 Iu)] INSULIN LISPRO (humaLOG) [humaLOG] 40 units SQ AC-TID 05/09/21 05/17/21 History INSULIN LISPRO (humaLOG) [humaLOG] See Protocol SQ AC-TID 05/09/21 05/17/21 History Insulin Detemir [Levemir Flextouch 35 units SQ HS 05/09/21 05/17/21 History Pen] Montelukast [Singulair] 10 mg PO HS 05/09/21 05/17/21 History Rizatriptan Odt [Maxalt [employer]] 10 mg PO DAILY PRN 05/09/21 05/17/21 History Zinc 50 mg PO DAILY 05/09/21 05/17/21 History lisinopriL [Zestril] 2.5 mg PO DAILY 05/09/21 05/17/21 History tiZANidine [Zanaflex] 4 mg PO BID PRN 05/09/21 05/17/21 History Metoprolol Tartrate [Lopressor] 12.5 mg PO BID #60 tab 05/16/21 05/17/21 Rx Pregabalin [Lyrica] 75 mg PO TID #7 cap 05/16/21 05/17/21 Rx Amoxicillin/Potassium Clav 1 tab PO BID 05/17/21 05/17/21 History [Augmentin 875-125 Tablet] Allergies Allergy/AdvReac Type Severity Reaction Status Date / Time No Known Allergies Allergy Verified 05/17/21 11:59 Physical Exam Vitals: Vital Signs Temp Pulse Resp BP Pulse Ox 05/17/21 10:21 94.7 F L 95 18 128/93 98 Intake and Output 05/17/21 05/17/21 05/17/21 06:59 14:59 22:59 Other: Weight 49.442 kg PHYSICAL EXAMINATION: GENERAL: The patient is awake but continues to fall asleep, not in any acute distress. Well developed, well nourished. HEENT: Pupils are round and equally reacting to light. EOMI. No scleral icterus. No conjunctival pallor. Normocephalic, atraumatic. No pharyngeal erythema. No thyromegaly. CARDIOVASCULAR: S1 and S2 present. No murmurs, rubs, or gallops. PULMONARY: Chest is clear to auscultation, no wheezing or crackles. ABDOMEN: Soft, nontender, nondistended, normoactive bowel sounds. No palpable organomegaly. MUSCULOSKELETAL: No joint swelling or deformity. EXTREMITIES: No cyanosis, clubbing, or pedal edema. NEUROLOGICAL: Gross neurological examination did not reveal any focal deficits. SKIN: No rashes. Results CBC & Chem 7: 05/18/21 04:33 05/18/21 04:33 Labs: Abnormal Lab Results - Last 24 Hours (Table) 05/17/21 05/17/21 05/17/21 Range/Units 10:40 11:13 12:40 WBC 21.9 H (3.8-10.6) k/uL RBC 3.48 L (3.80-5.40) m/uL Hgb 8.8 L (11.4-16.0) gm/dL Hct 28.7 L (34.0-46.0) % MCHC 30.6 L (31.0-37.0) g/dL RDW 16.0 H (11.5-15.5) % Plt Count 474 H (150-450) k/uL Neutrophils # 19.7 H (1.3-7.7) k/uL Lymphocytes # 0.9 L (1.0-4.8) k/uL Sodium (137-145) mmol/L Creatinine (0.52-1.04) mg/dL POC Glucose (mg/dL) 57 L 179 H (75-99) mg/dL Calcium (8.4-10.2) mg/dL Total Protein (6.3-8.2) g/dL Albumin (3.5-5.0) g/dL Urine Appearance (Clear) Urine Protein (Negative) Urine Glucose (UA) (Negative) Ur Leukocyte Esterase (Negative) Urine RBC (0-5) /hpf Urine WBC (0-5) /hpf Urine Bacteria (None) /hpf Urine Mucus (None) /hpf Urine Yeast (Budding) (None) /hpf 05/17/21 05/17/21 Range/Units 12:40 12:52 WBC (3.8-10.6) k/uL RBC (3.80-5.40) m/uL Hgb (11.4-16.0) gm/dL Hct (34.0-46.0) % MCHC (31.0-37.0) g/dL RDW (11.5-15.5) % Plt Count (150-450) k/uL Neutrophils # (1.3-7.7) k/uL Lymphocytes # (1.0-4.8) k/uL Sodium 129 L (137-145) mmol/L Creatinine 0.29 L (0.52-1.04) mg/dL POC Glucose (mg/dL) (75-99) mg/dL Calcium 7.2 L (8.4-10.2) mg/dL Total Protein 5.6 L (6.3-8.2) g/dL Albumin 2.0 L (3.5-5.0) g/dL Urine Appearance Cloudy H (Clear) Urine Protein Trace H (Negative) Urine Glucose (UA) 1+ H (Negative) Ur Leukocyte Esterase Small H (Negative) Urine RBC 8 H (0-5) /hpf Urine WBC 9 H (0-5) /hpf Urine Bacteria Rare H (None) /hpf Urine Mucus Few H (None) /hpf Urine Yeast (Budding) Many H (None) /hpf Assessment and Plan Assessment: 1. Altered mental status; related to hypoglycemia; diabetes mellitus type 1/diabetic neuropathy - History of diabetes mellitus; patient was admitted with recent episode of diabetic ketoacidosis - We will hold off on current home insulin schedule to blood glucose improved; monitor Accu-Cheks every 6 hours as with insulin sliding scale - Patient takes Elavil 10 mg by mouth daily at bedtime; Lyrica 75 mg by mouth 3 times a day 2. Bilateral dense consolidations/bilateral pneumonia; possible aspiration - Patient has been placed on IV antibiotics in form of Zosyn; Augmentin is discontinued; patient is currently saturating around 90% on 2 L of O2 per nasal cannula - We will monitor CBC, CRP and pro-calcitonin closely 3. Fungal UTI; patient is placed on IV Diflucan 200 mg daily; await final urine culture results of further recommendations 4. Chronic migraine headaches; Imitrex when necessary 5. Asthma; Singulair 10 mg by mouth daily at bedtime 6. Hypertension; metoprolol 12.5 mg twice a day; lisinopril 2.5 mg daily 7. Depression; Lexapro 20 mg daily DVT prophylaxis; SCDs/subcu heparin CODE STATUS; full code
--- NOTE | 2021-05-18 18:00 | P.PN ---
Subjective Progress Note Date: 05/18/21 Principal diagnosis: Altered mental status/ related to hypoglycemia Bilateral pneumonia/ possible aspiration Fungal UTI 36-year-old female presents to the emergency room via EMS with low blood sugar. Patient states that she does not remember taking her insulin today. She doesn't remember getting to the hospital. She states that she is hungry. Denies any other complaints of nausea vomiting or diarrhea. She states that she has back pain. EMS told the nurse that upon arrival family was doing CPR. She was found have a blood glucose of 36 at that time. She states she was just discharged from the hospital yesterday but does not know why. According to medical records she was discharged yesterday with pneumonia. DKA and dehydration. Patient st ates that she lives at home with her 8 and 9-year-old children. She's getting D5 0.9 at 75 mL an hour. She was given Augmentin, but we discontinued it in favor of Zosyn. The patient has a history of diabetes, diabetic neuropathy, chronic low back pain, migraine cephalgia, chronic constipation, and prior MRSA infection. White count 21.9, hemoglobin 8.8, hematocrit 28.7, and platelet count 474,000. Sodium 129, potassium 4.4, chlorides 102, CO2 24, anion gap 3, BUN 7, with a creatinine of 0.29. Albumin is 2. Urine is light yellow in color, and cloudy, leukocyte esterase being small positive, 9 WBCs, and rare bacteria. Drug screen is negative. Testing for ling virus was negative. Chest x-ray shows bilateral pneumonia, with dense consolidation within the left lung, and much less infiltrate in the right base. 05/18/2021 Patient is seen and evaluated with family at bedside; all of family's questions were answered to their satisfaction Vital signs are reviewed and stable with temperature of 98.7, pulse 106, respiration 18 and blood pressure 109/70 with O2 saturation of 91% on 4 L Patient remains on IV Zosyn and Diflucan; ID on board and recommending to continue current treatment for now; blood cultures and sputum cultures were ordered; we'll continue to monitor CBC, CMP and pro-calcitonin Objective - Vital Signs Vital signs: Vital Signs Temp 98.7 F 05/18/21 07:41 Pulse 106 H 05/18/21 07:41 Resp 18 05/18/21 07:41 BP 109/70 05/18/21 07:41 Pulse Ox 91 L 05/18/21 07:41 Intake & Output 05/17/21 05/18/21 05/18/21 18:59 06:59 18:59 Weight 49.442 kg 49.442 kg Other: Voiding Method Bedside Commode - Exam PHYSICAL EXAMINATION: GENERAL: The patient is alert and oriented x3, not in any acute distress. Well developed, well nourished. HEENT: Pupils are round and equally reacting to light. EOMI. No scleral icterus. No conjunctival pallor. Normocephalic, atraumatic. No pharyngeal erythema. No thyromegaly. CARDIOVASCULAR: S1 and S2 present. No murmurs, rubs, or gallops. PULMONARY: Chest is clear to auscultation, no wheezing or crackles. ABDOMEN: Soft, nontender, nondistended, normoactive bowel sounds. No palpable organomegaly. MUSCULOSKELETAL: No joint swelling or deformity. EXTREMITIES: No cyanosis, clubbing, or pedal edema. NEUROLOGICAL: Gross neurological examination did not reveal any focal deficits. SKIN: No rashes. - Labs CBC & Chem 7: 05/18/21 04:33 05/18/21 04:33 Labs: Abnormal Lab Results - Last 24 Hours (Table) 05/17/21 05/17/21 05/18/21 Range/Units 16:10 18:53 01:58 WBC (4.50-10.00) X 10*3/uL RBC (4.10-5.20) X 10*6/uL Hgb (12.0-15.0) g/dL Hct (37.2-46.3) % MCH (27.0-32.0) pg MCHC (32.0-37.0) g/dL RDW (11.5-14.5) % Plt Count (140-440) X 10*3/uL Immature Gran # (0.00-0.04) X 10*3/uL Neutrophils # (1.80-7.70) X 10*3/uL Lymphocytes # (0.90-5.00) X 10*3/uL Eosinophils # (0.04-0.35) X 10*3/uL Sodium (135-145) mmol/L BUN (9.0-27.0) mg/dL Creatinine (0.6-1.5) mg/dL Glucose (70-110) mg/dL POC Glucose (mg/dL) 335 H 198 H 348 H (75-99) mg/dL Calcium (8.7-10.3) mg/dL C-Reactive Protein (0.00-0.80) mg/dL Procalcitonin (0.02-0.09) ng/mL 05/18/21 05/18/21 05/18/21 Range/Units 02:00 04:33 04:33 WBC 19.30 H (4.50-10.00) X 10*3/uL RBC 2.95 L (4.10-5.20) X 10*6/uL Hgb 7.2 L (12.0-15.0) g/dL Hct 24.0 L (37.2-46.3) % MCH 24.4 L (27.0-32.0) pg MCHC 30.0 L (32.0-37.0) g/dL RDW 16.4 H (11.5-14.5) % Plt Count 449 H (140-440) X 10*3/uL Immature Gran # 0.24 H (0.00-0.04) X 10*3/uL Neutrophils # 17.75 H (1.80-7.70) X 10*3/uL Lymphocytes # 0.72 L (0.90-5.00) X 10*3/uL Eosinophils # 0.02 L (0.04-0.35) X 10*3/uL Sodium (135-145) mmol/L BUN (9.0-27.0) mg/dL Creatinine (0.6-1.5) mg/dL Glucose (70-110) mg/dL POC Glucose (mg/dL) 357 H (75-99) mg/dL Calcium (8.7-10.3) mg/dL C-Reactive Protein (0.00-0.80) mg/dL Procalcitonin 0.15 H (0.02-0.09) ng/mL 05/18/21 05/18/21 05/18/21 Range/Units 04:33 07:30 11:35 WBC (4.50-10.00) X 10*3/uL RBC (4.10-5.20) X 10*6/uL Hgb (12.0-15.0) g/dL Hct (37.2-46.3) % MCH (27.0-32.0) pg MCHC (32.0-37.0) g/dL RDW (11.5-14.5) % Plt Count (140-440) X 10*3/uL Immature Gran # (0.00-0.04) X 10*3/uL Neutrophils # (1.80-7.70) X 10*3/uL Lymphocytes # (0.90-5.00) X 10*3/uL Eosinophils # (0.04-0.35) X 10*3/uL Sodium 133 L (135-145) mmol/L BUN 7.2 L (9.0-27.0) mg/dL Creatinine 0.4 L (0.6-1.5) mg/dL Glucose 345 H (70-110) mg/dL POC Glucose (mg/dL) 327 H 371 H (75-99) mg/dL Calcium 7.1 L (8.7-10.3) mg/dL C-Reactive Protein 5.70 H (0.00-0.80) mg/dL Procalcitonin (0.02-0.09) ng/mL Assessment and Plan Assessment: 1. Altered mental status; related to hypoglycemia; diabetes mellitus type 1/diabetic neuropathy - History of diabetes mellitus; patient was admitted with recent episode of diabetic ketoacidosis - We will hold off on current home insulin schedule to blood glucose improved; monitor Accu-Cheks every 6 hours as with insulin sliding scale - Patient takes Elavil 10 mg by mouth daily at bedtime; Lyrica 75 mg by mouth 3 times a day 2. Bilateral dense consolidations/bilateral pneumonia; possible aspiration - Patient has been placed on IV antibiotics in form of Zosyn; Augmentin is discontinued; patient is currently saturating around 90% on 2 L of O2 per nasal cannula - We will monitor CBC, CRP and pro-calcitonin closely 3. Fungal UTI; patient is placed on IV Diflucan 200 mg daily; await final urine culture results of further recommendations 4. Chronic migraine headaches; Imitrex when necessary 5. Asthma; Singulair 10 mg by mouth daily at bedtime 6. Hypertension; metoprolol 12.5 mg twice a day; lisinopril 2.5 mg daily 7. Depression; Lexapro 20 mg daily DVT prophylaxis; SCDs/subcu heparin CODE STATUS; full code
[2021-05-18] MEDS ORDERED: SODIUM CHLORIDE 0.9% 1,000 ML IV SCH (18:15)
[2021-05-18 20:09] LABS: Glucose,Whole Blood 258 mg/dL (75-99)
[2021-05-18] MEDS ORDERED: INSULIN DETEMIR (LEVEMIR) 100 UNIT/ML SYR SQ SCH (21:00)
[2021-05-19] MEDS ORDERED: DEXTROSE 50% SYRINGE 50 ML IVP ONE ×3 (02:11→07:03)
[2021-05-19 02:14] LABS: Glucose,Whole Blood 20 mg/dL (75-99)
[2021-05-19 02:14] LABS: Glucose,Whole Blood 21 mg/dL (75-99)
[2021-05-19 02:32] LABS: Glucose,Whole Blood 74 mg/dL (75-99)
[2021-05-19 03:25] LABS: Glucose,Whole Blood 29 mg/dL (75-99)
[2021-05-19 03:46] LABS: Glucose,Whole Blood 152 mg/dL (75-99)
--- NOTE | 2021-05-19 05:12 | PN ---
PROGRESS NOTE DATE OF SERVICE: 05/18/2021 REASON FOR FOLLOWUP: Leukocytosis, pneumonitis and possible pneumonia. INTERVAL HISTORY: Patient is afebrile. The patient is currently breathing comfortably on 4 L nasal cannula. Patient denies having any chest pain. No worsening cough or sputum production. No vomiting. No abdominal pain. No diarrhea. PHYSICAL EXAMINATION: Blood pressure is 95/60, pulse of 55, temperature 98.4. She is 95% on 4 L nasal cannula. General description is a middle-aged female lying in bed in no distress. Respiratory system: Unlabored breathing, decreased intensity in breath sounds, with no wheeze. Heart S1, S2. Regular rate and rhythm. Abdomen soft, no tenderness. LABS: Hemoglobin is 7.1, white count 19.3, creatinine 0.4. DIAGNOSTIC IMPRESSION AND PLAN: Patient with elevated white count, multifactorial, with concern for urinary tract infection, oral thrush possibly a component of aspiration pneumonia. Patient to continue with nystatin swish and swallow along with Diflucan with Zosyn. White count is trending down. Obtain a sputum culture to narrow down antibiotics. Mother at the bedside. Multiple questions were answered. MMODL / IJN: [id number] /
[2021-05-19 05:22] LABS: Glucose,Whole Blood 71 mg/dL (75-99)
[2021-05-19 07:04] LABS: Glucose,Whole Blood 43 mg/dL (75-99)
[2021-05-19 07:25] LABS: Glucose,Whole Blood 189 mg/dL (75-99)
[2021-05-19 08:05] LABS: African American GFR (CKD) >90 (>60 ml/min/1.73 sqM); Anion Gap 3 mmol/L; Blood Urea Nitrogen 6 mg/dL (7-17); Carbon Dioxide 24 mmol/L (22-30); Chloride 107 mmol/L (98-107); Glucose 170 mg/dL (74-99); Non-African American GFR(CKD) >90 (>60 ml/min/1.73 sqM); Potassium 2.8 mmol/L (3.5-5.1); Sodium 134 mmol/L (137-145)
[2021-05-19] MEDS: INSULIN ASPART (NovoLOG) 100 UNIT/ML VIAL SQ SCH ×4 (08:05→20:25)
[2021-05-19] MEDS: CHOLECALCIFEROL 25 MCG (1000 IU) TABLET PO SCH (08:19)
[2021-05-19] MEDS: NYSTATIN 100,000 UNIT/ML SUSP 500,000 UNIT/5 ML CUP PO SCH ×4 (08:19→21:17)
[2021-05-19] MEDS: ESCITALOPRAM 20 MG TAB PO SCH (08:19)
[2021-05-19] MEDS: FLUCONAZOLE IN NACL,ISO-OSM 200 MG in SALINE 1 100ML.BAG IVPB SCH (08:19)
[2021-05-19] MEDS: PIPERACILLIN-TAZOBACTAM 3.375 GM in SODIUM CHLORIDE 0.9% 100 ML IVPB SCH ×3 (08:20→23:26)
[2021-05-19] MEDS: METOPROLOL TARTRATE 12.5 MG TAB PO SCH ×2 (08:20→20:25)
[2021-05-19] MEDS: PANTOPRAZOLE 40 MG TABLET PO SCH (08:20)
[2021-05-19] MEDS: PREGABALIN 75 MG CAP PO SCH ×3 (08:20→21:17)
[2021-05-19] MEDS: DEXTROSE 5% IN WATER 1,000 ML IV SCH ×3 (08:20→23:22)
[2021-05-19] MEDS: ZINC SULFATE 220 MG CAP PO SCH (08:20)
[2021-05-19 10:13] LABS: Basophils # (A) 0.04 X 10*3/uL (0.00-0.10); Basophils % (A) 0.3 %; Eosinophils # (A) 0.14 X 10*3/uL (0.04-0.35); HCT 21.3 % (37.2-46.3); HGB 6.2 g/dL (12.0-15.0); Immature Grans, Automated 1.1 %; Lymphocytes # (A) 1.28 X 10*3/uL (0.90-5.00); Lymphocytes % (A) 9.2 %; MCH 24.1 pg (27.0-32.0); MCHC 29.1 g/dL (32.0-37.0); MCV 82.9 fL (80.0-97.0); Mean Platelet Volume 10.6 fL (9.5-12.2); Monocytes # (A) 0.73 X 10*3/uL (0.20-1.00); Monocytes % (A) 5.2 %; NRBC Per 100 WBC 0 /100 WBCS (0.0-0.0); Neutrophils # (A) 11.63 X 10*3/uL (1.80-7.70); Neutrophils % (A) 83.2 %; Platelet Count 417 X 10*3/uL (140-440); RBC 2.57 X 10*6/uL (4.10-5.20); RDW 17.4 % (11.5-14.5); WBC 13.97 X 10*3/uL (4.50-10.00)
[2021-05-19] MEDS: LOPERAMIDE 2 MG CAP PO PRN (10:56)
[2021-05-19 11:40] LABS: Glucose,Whole Blood 47 mg/dL (75-99)
[2021-05-19 11:58] LABS: ALT 9 U/L (4-34); AST 16 U/L (14-36); African American GFR (CKD) >90 (>60 ml/min/1.73 sqM); Albumin 1.8 g/dL (3.5-5.0); Albumin/Globulin Ratio 0.5; Alkaline Phosphatase 90 U/L (38-126); Anion Gap 4 mmol/L; Blood Urea Nitrogen 5 mg/dL (7-17); Calcium 7.2 mg/dL (8.4-10.2); Carbon Dioxide 23 mmol/L (22-30); Chloride 107 mmol/L (98-107); Globulin 3.5 g/dL; Non-African American GFR(CKD) >90 (>60 ml/min/1.73 sqM); Potassium 3.3 mmol/L (3.5-5.1); Sodium 134 mmol/L (137-145); Total Bilirubin 0.4 mg/dL (0.2-1.3); Total Protein 5.3 g/dL (6.3-8.2)
[2021-05-19 12:11] LABS: Anisocytosis Slight; Basophils % (A) 0 %; Eosinophils # (A) 0.1 k/uL (0-0.7); Eosinophils % (A) 1 %; HCT 29.4 % (34.0-46.0); HGB 8.5 gm/dL (11.4-16.0); Hypochromasia Marked; Lymphocytes # (A) 1.7 k/uL (1.0-4.8); Lymphocytes % (A) 14 %; MCH 24.8 pg (25.0-35.0); MCHC 28.9 g/dL (31.0-37.0); Mean Platelet Volume 8.5; Monocytes # (A) 0.7 k/uL (0-1.0); Monocytes % (A) 5 %; Neutrophils # (A) 9.7 k/uL (1.3-7.7); Neutrophils % (A) 78 %; Platelet Count 404 k/uL (150-450); RBC 3.42 m/uL (3.80-5.40); RDW 16.8 % (11.5-15.5); WBC 12.4 k/uL (3.8-10.6)
[2021-05-19 12:12] LABS: Glucose,Whole Blood 86 mg/dL (75-99)
[2021-05-19 12:18] LABS: Glucose 43 mg/dL (74-99)
--- NOTE | 2021-05-19 13:15 | XR ---
EXAMINATION TYPE: XR chest 1V portable DATE OF EXAM: 05/19/2021 CLINICAL HISTORY: Difficulty breathing and cough progress study. TECHNIQUE: Single AP portable upright view of the chest is obtained. COMPARISON: Chest x-ray from 2 days earlier. CTA chest 6 days ago. Older studies. FINDINGS: Persistent left lung diffuse consolidation with central air bronchograms is redemonstrated . Persistent medial right lower lobe consolidation with air bronchograms and patchy additional scatte red right lung groundglass opacities. Silhouetting of left heart border redemonstrated. Osseous struc tures are intact. IMPRESSION: Diffuse left lung pneumonic consolidation with multifocal right lung pneumonic infiltrate s redemonstrated. No significant change from most recent chest x-ray.
[2021-05-19] MEDS: MAG HYDROX/AL HYDROX/SIMETH 30 ML, LIDOCAINE VISCOUS 30 ML, diphenhydrAMINE ELIXIR 75 M... PO SCH ×12 (13:52→21:18)
--- NOTE | 2021-05-19 15:03 | P.PN ---
Subjective Progress Note Date: 05/19/21 This is a 36-year-old old female, seen in the emergency room, room 10. The patient was just discharged out of the hospital yesterday, May 16. The patient apparently returned to the emergency room, with a low blood sugar. She was brought in by EMS. She apparently has no memory of why she was in the hospital. She apparently was hungry when she came into the ER. She complained of back pain. Her blood glucose on arrival was 36. The patient was in the hospital recently for a left-sided pneumonia. The patient also has a history of diabetes with diabetic ketoacidosis. The patient is currently on O2 at 2 L. She's getting D5 0.9 at 75 mL an hour. She was given Augmentin, but we discontinued it in favor of Zosyn. The patient has a history of diabetes, diabetic neuropathy, chronic low back pain, migraine cephalgia, chronic constipation, and prior MRSA infection. White count 21.9, hemoglobin 8.8, hematocrit 28.7, and platelet count 474,000. Sodium 129, potassium 4.4, chlorides 102, CO2 24, anion gap 3, BUN 7, with a creatinine of 0.29. Albumin is 2. Urine is light yellow in color, and cloudy, leukocyte esterase being small positive, 9 WBCs, and rare bacteria. Drug screen is negative. Testing for ling virus was negative. Chest x-ray shows bilateral pneumonia, with dense consolidation within the left lung, and much less infiltrate in the right base. Progress note dated 05/18/2021. This is a 36-year-old female, who was seen in the emergency department in consultation yesterday, and room 10. The patient was recently discharged from the hospital on May 16. She was brought back in for mental status changes, and a low blood sugar. Apparently her blood glucose was only 36. Her prior admission was for diabetic ketoacidosis, and left-sided ammonia. Currently, she is back to her normal self. The patient is on 4 L nasal O2. She's not complaining of any respiratory distress or difficulty. She has a dry nonproductive cough. She was placed on Zosyn yesterday by our team. She was seen by infectious diseases. She has a history of diabetes, diabetic neuropat hy, chronic low back pain, migraine cephalgia, chronic constipation, and prior MRSA infection. Currently, white count 19.3, he will been 7.2, hematocrit 24, and platelet count 449,000. Sodium 133, potassium 3.8, chlorides 100, CO2 21, anion gap 12, UN 7, and creatinine 0.4. Pro-calcitonin level is 0.15. C- reactive protein is 5.7. On today's evaluation of 05/19/2021, the patient is doing well. The patient is awake and alert. No signs of any significant respiratory distress. The patient was restarted back on IV Zosyn. The chest x-ray showed extensive consolidation of the left lung and the CAT scan of the chest also confirmed the same findings. The patient was Hospital as because of hypoglycemia. The patient altered mentation and she recovered fully. She is currently on Levemir 20 units along with sliding scale coverage. She is also on D5 water running at 100 mL an hour. Antibiotic coverage with IV Zosyn. Blood work shows a white cell count 12.4 with hemoglobin 8.5, BUN is at 5 with a creatinine of 0.4 and his sodium is at 134 with a potassium level of 3.3. The COVID 19 test that was negative. Urine drug screen was negative. Pro-calcitonin level has been consistently low. A focused on level was at 0.15. The patient currently is on oxygen 4 L per minute nasal cannula. She is afebrile. She is medically and hemodynamically stable at this point in time. She has poor dental conditions and poor oral hygiene. She has also developed some ulceration over the tip of the tongue probably related to candidal infection. Objective - Vital Signs Vital signs: Vital Signs Temp 97.6 F 05/19/21 07:57 Pulse 91 05/19/21 10:22 Resp 17 05/19/21 10:22 BP 110/72 05/19/21 07:57 Pulse Ox 96 05/19/21 07:57 Intake & Output 05/18/21 05/19/21 05/19/21 18:59 06:59 18:59 Other: Voiding Method Bedside Commode Incontinent # Voids 2 1 # Bowel Movements 1 - Exam No acute distress, oriented 3. The patient is not manifesting any signs or symptoms of respiratory distress. She is on 4 L. Saturations are 96%. HEENT examination is grossly unremarkable. The patient has ulcerative of the tongue which is affecting her ability to swallow and eat foods. Neck supple. Full range of motion. No adenopathy thyromegaly or neck vein distention. Cardiovascular examination reveals regular rhythm rate. S1-S2 normal. No S3 or S4. No discernible murmur noted. Heart rate 99 bpm. Lungs reveal diminished breath sounds on the left. Scattered rhonchi bilaterally. No wheezes or crackles. Abdomen soft bowel sounds are heard. No masses or tenderness. Extremities are intact. No cyanosis clubbing or edema. Skin is without rash or lesion. Neurologic examination is brief but nonfocal. - Labs CBC & Chem 7: 05/19/21 11:25 05/19/21 11:25 Labs: Abnormal Lab Results - Last 24 Hours (Table) 05/18/21 05/18/21 05/19/21 Range/Units 16:40 20:08 02:10 WBC (4.50-10.00) X 10*3/uL RBC (4.10-5.20) X 10*6/uL Hgb (12.0-15.0) g/dL Hct (37.2-46.3) % MCH (27.0-32.0) pg MCHC (32.0-37.0) g/dL RDW (11.5-14.5) % Immature Gran # (0.00-0.04) X 10*3/uL Neutrophils # (1.80-7.70) X 10*3/uL Sodium (137-145) mmol/L Potassium (3.5-5.1) mmol/L BUN (7-17) mg/dL Creatinine (0.52-1.04) mg/dL Glucose (74-99) mg/dL POC Glucose (mg/dL) 347 H 258 H 20 L (75-99) mg/dL Calcium (8.4-10.2) mg/dL 05/19/21 05/19/21 05/19/21 Range/Units 02:12 02:26 03:22 WBC (4.50-10.00) X 10*3/uL RBC (4.10-5.20) X 10*6/uL Hgb (12.0-15.0) g/dL Hct (37.2-46.3) % MCH (27.0-32.0) pg MCHC (32.0-37.0) g/dL RDW (11.5-14.5) % Immature Gran # (0.00-0.04) X 10*3/uL Neutrophils # (1.80-7.70) X 10*3/uL Sodium (137-145) mmol/L Potassium (3.5-5.1) mmol/L BUN (7-17) mg/dL Creatinine (0.52-1.04) mg/dL Glucose (74-99) mg/dL POC Glucose (mg/dL) 21 L 74 L 29 L (75-99) mg/dL Calcium (8.4-10.2) mg/dL 05/19/21 05/19/21 05/19/21 Range/Units 03:45 04:29 05:21 WBC 13.97 H (4.50-10.00) X 10*3/uL RBC 2.57 L (4.10-5.20) X 10*6/uL Hgb 6.2 L* (12.0-15.0) g/dL Hct 21.3 L (37.2-46.3) % MCH 24.1 L (27.0-32.0) pg MCHC 29.1 L (32.0-37.0) g/dL RDW 17.4 H (11.5-14.5) % Immature Gran # 0.15 H (0.00-0.04) X 10*3/uL Neutrophils # 11.63 H (1.80-7.70) X 10*3/uL Sodium (137-145) mmol/L Potassium (3.5-5.1) mmol/L BUN (7-17) mg/dL Creatinine (0.52-1.04) mg/dL Glucose (74-99) mg/dL POC Glucose (mg/dL) 152 H 71 L (75-99) mg/dL Calcium (8.4-10.2) mg/dL 05/19/21 05/19/21 05/19/21 Range/Units 07:02 07:22 07:24 WBC (4.50-10.00) X 10*3/uL RBC (4.10-5.20) X 10*6/uL Hgb (12.0-15.0) g/dL Hct (37.2-46.3) % MCH (27.0-32.0) pg MCHC (32.0-37.0) g/dL RDW (11.5-14.5) % Immature Gran # (0.00-0.04) X 10*3/uL Neutrophils # (1.80-7.70) X 10*3/uL Sodium 134 L (137-145) mmol/L Potassium 2.8 L (3.5-5.1) mmol/L BUN 6 L (7-17) mg/dL Creatinine 0.38 L (0.52-1.04) mg/dL Glucose 170 H (74-99) mg/dL POC Glucose (mg/dL) 43 L 189 H (75-99) mg/dL Calcium 7.0 L (8.4-10.2) mg/dL 05/19/21 05/19/21 Range/Units 11:25 11:38 WBC 12.4 H (4.50-10.00) X 10*3/uL RBC 3.42 L (4.10-5.20) X 10*6/uL Hgb 8.5 L (12.0-15.0) g/dL Hct 29.4 L (37.2-46.3) % MCH 24.8 L (27.0-32.0) pg MCHC 28.9 L (32.0-37.0) g/dL RDW 16.8 H (11.5-14.5) % Immature Gran # (0.00-0.04) X 10*3/uL Neutrophils # 9.7 H (1.80-7.70) X 10*3/uL Sodium (137-145) mmol/L Potassium (3.5-5.1) mmol/L BUN (7-17) mg/dL Creatinine (0.52-1.04) mg/dL Glucose (74-99) mg/dL POC Glucose (mg/dL) 47 L (75-99) mg/dL Calcium (8.4-10.2) mg/dL Microbiology - Last 24 Hours (Table) 05/17/21 16:53 Blood Culture - Preliminary Blood No Growth after 24 hours 05/17/21 16:54 Blood Culture - Preliminary Blood No Growth after 24 hours Assessment and Plan Plan: 1 Mental status changes, secondary to hypoglycemia. This has recovered and the patient is back to normal mentation. The patient is on long-acting insulin. 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 2 History of diabetes, with a recent episode of diabetic ketoacidosis, recovered 3 acute hypoxic respiratory failure 4 extensive and Dense consolidation and pneumonia of the left lung with minimal changes in the right lung base. The patient remains on IV Zosyn. LEVEL IS BEEN NEGATIVE AND LOW. 5 History of syncope. 6 History of diabetic neuropathy. 7 History of migraine cephalgia. 8 Prior history of MRSA infection. 9 Chronic constipation. 10 Chronic low back pain. 11 pound ulceration and the patient is currently on Diflucan for oropharyngeal candidiasis. Plan Provide the patient incentive spirometer Increased level of activity as tolerated Continue IV Zosyn Add cool solution regarding the tongue ulceration The patient is cachectic with a BMI of 20.6 Poor dental on oral hygiene May consider bronchoscopy if no improvement in her condition over the next few days.
[2021-05-19 16:26] LABS: Glucose,Whole Blood 118 mg/dL (75-99)
--- NOTE | 2021-05-19 17:25 | PN ---
PROGRESS NOTE DATE OF SERVICE: 05/19/2021 REASON FOR FOLLOWUP: Leukocytosis and aspiration pneumonia. INTERVAL HISTORY: The patient is afebrile. The patient is feeling better, breathing comfortably. Denies having any chest pain or shortness of breath. She did have a cough, not bringing up any sputum. No abdominal pain. Did have some diarrhea. PHYSICAL EXAMINATION: Blood pressure 110/72 with pulse of 91, temperature 97.6. She is 96% on 4 L nasal cannula. General description is a middle-aged female lying in bed in no distress. Respiratory system: Unlabored breathing, decreased breath sounds in the bases. No wheeze. Heart S1, S2. Regular rate and rhythm. Abdomen soft, no tenderness. LABS: White count down to 12.4, creatinine 0.41. DIAGNOSTIC IMPRESSION AND PLAN: Patient with elevated white count, multifactorial possible component of aspiration pneumonia, urinary tract infection in this patient overall improvement on Zosyn to be continued for now. Transition to oral antibiotic on discharge. Monitor clinical course closely. MMODL / IJN: [id number] /
[2021-05-19] MEDS ORDERED: Potassium Replacement Protocol 1 EACH MISC MISCELLANE PRN (18:57)
[2021-05-19] MEDS ORDERED: Magnesium Replacement Protocol 1 EACH MISC MISCELLANE PRN (18:57)
[2021-05-19] MEDS: INSULIN DETEMIR (LEVEMIR) 100 UNIT/ML SYR SQ SCH (19:07)
[2021-05-19 20:11] LABS: Glucose,Whole Blood 147 mg/dL (75-99)
--- NOTE | 2021-05-19 20:55 | PN ---
PROGRESS NOTE DATE OF SERVICE: 05/19/2021 This 36-year-old woman admitted with change in mental status had significant hypoglycemia. Patient also had bilateral pneumonia, possibly aspiration. Patient also had fungal UTI. The patient has multiple electrolyte abnormalities as well. The most recent chest x-ray, which was reviewed personally by me, showed significant pneumonia on the left side, and the patient is being closely monitored at this time. The patient is on IV Zosyn. Infectious Disease is also following the patient closely. Cultures are noted. The patient is mildly confused. Past medical history reviewed. REVIEW OF SYSTEMS: CARDIOVASCULAR SYSTEM: No angina. RESPIRATION: As mentioned earlier. GI: As mentioned earlier. : No dysuria. NERVOUS SYSTEM: No numbness, weakness. CURRENT MEDICATIONS: Reviewed. They include Elavil, Lexapro, Diflucan, NovoLog, Levemir. Doses and other medications are reviewed. PHYSICAL EXAMINATION: Patient is alert, oriented . Pulse 63, blood pressure 88/57, respiration 17, temperature 97.9, pulse ox % on 4 L. HEENT: Conjunctivae normal. Oral mucosa is really erythematous, and some thrush is also present. NECK: No jugular venous distention. CARDIOVASCULAR: S1, S2 muffled. RESPIRATION: A few scattered rhonchi and crackles. ABDOMEN: Soft, nontender. NERVOUS SYSTEM: Diffusely weak. LAB STUDIES: WBC 12.4, hemoglobin 8.4, sodium 134, potassium 3.3. ASSESSMENT: 1. Acute bilateral pneumonia, left more than the right, with aspiration pneumonia with sepsis, present on admission. 2. Change in mental status, acute metabolic encephalopathy, multifactorial. 3. Acute hypoglycemia. 4. Severe hypokalemia. 5. Severe hyponatremia. 6. Fungal urinary tract infection. 7. Severe protein-calorie malnutrition with body mass index of 20.6. 8. Diabetes mellitus, type 2, uncontrolled with hypoglycemia. 9. Hypoalbuminemia. 10.Increased white count. 11.Anemia. 12.History of syncope. 13.History of diabetes mellitus, type 1. 14.History of peripheral neuropathy. 15.History of migraines. 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 17.History of MRSA. 18.History of tubal ligation. 19.Anxiety, depression. 20.Gait dysfunction. 21.FULL CODE. RECOMMENDATIONS AND DISCUSSION: In this 36-year-old woman who presented with multiple complex medical issues, we will monitor the patient closely, continue the antifungal and antibiotics. Follow the cultures. PT/OT evaluation. Will repeat and replace all the electrolytes. Closely follow with multiple consultants. Prognosis extremely guarded because of multiple complex medical issues. Further recommendations to follow. Reduce the dose of number and continue to monitor. See orders for details. Prognosis guarded. I had a detailed discussion with the patient's mother, who was at the bedside. MMODL / IJN: [id number] / PEGGY
[2021-05-19] MEDS: AMITRIPTYLINE HCL 10 MG TAB PO SCH (21:17)
[2021-05-19] MEDS: MONTELUKAST 10 MG TAB PO SCH (21:17)
--- NOTE | 2021-05-19 21:24 | XR ---
EXAMINATION TYPE: XR chest 1V portable DATE OF EXAM: 05/19/2021 COMPARISON: Same-day HISTORY: Cough TECHNIQUE: Single frontal view of the chest is obtained. FINDINGS: There is increased moderate to marked patchy opacities in the right mid to lower lung. The re is unchanged diffuse opacity with consolidation of the left lung. There is persistent [id number] erate left pleural effusion. No pneumothorax seen. The cardiac silhouette size is within normal limi ts. The osseous structures are intact. IMPRESSION: Progression of airspace disease as above.
[2021-05-19 23:02] LABS: Glucose,Whole Blood 164 mg/dL (75-99)
[2021-05-19] MEDS: ONDANSETRON 4 MG/2 ML VIAL IVP PRN (23:25)
[2021-05-20 01:56] LABS: Glucose,Whole Blood 213 mg/dL (75-99)
[2021-05-20 02:27] LABS: ABG Base Excess 1.2 mmol/L; ABG HCO3 26 mmol/L (21-25); ABG PCO2 46 mmHg (35-45); ABG PH 7.37 (7.35-7.45); ABG TCO2 28 mmol/L (19-24); Allen Test Performed? Yes
[2021-05-20 02:48] LABS: ABG PO2 50 mmHg (83-108)
[2021-05-20] MEDS ORDERED: FUROSEMIDE 10 MG/ML 4 ML VIAL IV STA (02:48)
[2021-05-20 03:19] LABS: Glucose,Whole Blood 191 mg/dL (75-99)
[2021-05-20] MEDS ORDERED: ACETAMINOPHEN IV (For NPO) 1,000 MG in EMPTY BAG 1 BAG IVPB ONE (04:21)
[2021-05-20] MEDS: ONDANSETRON 4 MG/2 ML VIAL IVP PRN ×2 (05:21→14:17)
[2021-05-20 06:29] LABS: Anisocytosis Slight; Basophils % (A) 0 %; Eosinophils # (A) 0.1 k/uL (0-0.7); Eosinophils % (A) 0 %; HGB 7.8 gm/dL (11.4-16.0); Hypochromasia Marked; Lymphocytes # (A) 1.2 k/uL (1.0-4.8); Lymphocytes % (A) 6 %; MCH 24.9 pg (25.0-35.0); MCV 82.8 fL (80.0-100.0); Mean Platelet Volume 8.8; Monocytes # (A) 0.6 k/uL (0-1.0); Monocytes % (A) 3 %; Neutrophils % (A) 89 %; Platelet Count 436 k/uL (150-450); RBC 3.14 m/uL (3.80-5.40); RDW 17.2 % (11.5-15.5); WBC 19.1 k/uL (3.8-10.6)
[2021-05-20 06:39] LABS: ALT 8 U/L (4-34); AST 18 U/L (14-36); African American GFR (CKD) >90 (>60 ml/min/1.73 sqM); Albumin/Globulin Ratio 0.5; Alkaline Phosphatase 107 U/L (38-126); Anion Gap 7 mmol/L; Blood Urea Nitrogen 4 mg/dL (7-17); Calcium 7.2 mg/dL (8.4-10.2); Carbon Dioxide 23 mmol/L (22-30); Chloride 100 mmol/L (98-107); Globulin 3.7 g/dL; Glucose 171 mg/dL (74-99); Magnesium 1.6 mg/dL (1.6-2.3); Non-African American GFR(CKD) >90 (>60 ml/min/1.73 sqM); Potassium 3.4 mmol/L (3.5-5.1); Sodium 130 mmol/L (137-145); Total Bilirubin 0.7 mg/dL (0.2-1.3); Total Protein 5.7 g/dL (6.3-8.2)
[2021-05-20 07:05] LABS: Glucose,Whole Blood 210 mg/dL (75-99)
[2021-05-20] MEDS: PANTOPRAZOLE 40 MG TABLET PO SCH (07:05)
[2021-05-20] MEDS: INSULIN ASPART (NovoLOG) 100 UNIT/ML VIAL SQ SCH ×4 (07:07→22:07)
[2021-05-20] MEDS: MAGNESIUM SULFATE-D5W PMX 1 GM in DEXTROSE/WATER 1 100ML.BAG IVPB SCH ×4 (07:11→17:15)
[2021-05-20] MEDS: THIAMINE 100 MG TAB PO SCH ×2 (07:30→17:13)
[2021-05-20] MEDS: POTASSIUM CHLORIDE 10 MEQ in WATER FOR INJECTION 1 100ML.BAG IVPB SCH ×4 (08:30→17:15)
[2021-05-20] MEDS: PIPERACILLIN-TAZOBACTAM 3.375 GM in SODIUM CHLORIDE 0.9% 100 ML IVPB SCH (08:31)
[2021-05-20] MEDS ORDERED: FLUCONAZOLE 100 MG TAB PO SCH (09:00)
[2021-05-20] MEDS ORDERED: VANCOMYCIN IV PER PHARMACY 1 EACH MISC MISCELLANE PRN (09:13)
--- NOTE | 2021-05-20 09:26 | P.PN ---
Subjective Progress Note Date: 05/20/21 This is a 36-year-old old female, seen in the emergency room, room 10. The patient was just discharged out of the hospital yesterday, May 16. The patient apparently returned to the emergency room, with a low blood sugar. She was brought in by EMS. She apparently has no memory of why she was in the hospital. She apparently was hungry when she came into the ER. She complained of back pain. Her blood glucose on arrival was 36. The patient was in the hospital recently for a left-sided pneumonia. The patient also has a history of diabetes with diabetic ketoacidosis. The patient is currently on O2 at 2 L. She's getting D5 0.9 at 75 mL an hour. She was given Augmentin, but we discontinued it in favor of Zosyn. The patient has a history of diabetes, diabetic neuropathy, chronic low back pain, migraine cephalgia, chronic constipation, and prior MRSA infection. White count 21.9, hemoglobin 8.8, hematocrit 28.7, and platelet count 474,000. Sodium 129, potassium 4.4, chlorides 102, CO2 24, anion gap 3, BUN 7, with a creatinine of 0.29. Albumin is 2. Urine is light yellow in color, and cloudy, leukocyte esterase being small positive, 9 WBCs, and rare bacteria. Drug screen is negative. Testing for ling virus was negative. Chest x-ray shows bilateral pneumonia, with dense consolidation within the left lung, and much less infiltrate in the right base. Progress note dated 05/18/2021. This is a 36-year-old female, who was seen in the emergency department in consultation yesterday, and room 10. The patient was recently discharged from the hospital on May 16. She was brought back in for mental status changes, and a low blood sugar. Apparently her blood glucose was only 36. Her prior admission was for diabetic ketoacidosis, and left-sided ammonia. Currently, she is back to her normal self. The patient is on 4 L nasal O2. She's not complaining of any respiratory distress or difficulty. She has a dry nonproductive cough. She was placed on Zosyn yesterday by our team. She was seen by infectious diseases. She has a history of diabetes, diabetic neuropat hy, chronic low back pain, migraine cephalgia, chronic constipation, and prior MRSA infection. Currently, white count 19.3, he will been 7.2, hematocrit 24, and platelet count 449,000. Sodium 133, potassium 3.8, chlorides 100, CO2 21, anion gap 12, UN 7, and creatinine 0.4. Pro-calcitonin level is 0.15. C- reactive protein is 5.7. On today's evaluation of 05/19/2021, the patient is doing well. The patient is awake and alert. No signs of any significant respiratory distress. The patient was restarted back on IV Zosyn. The chest x-ray showed extensive consolidation of the left lung and the CAT scan of the chest also confirmed the same findings. The patient was Hospital as because of hypoglycemia. The patient altered mentation and she recovered fully. She is currently on Levemir 20 units along with sliding scale coverage. She is also on D5 water running at 100 mL an hour. Antibiotic coverage with IV Zosyn. Blood work shows a white cell count 12.4 with hemoglobin 8.5, BUN is at 5 with a creatinine of 0.4 and his sodium is at 134 with a potassium level of 3.3. The COVID 19 test that was negative. Urine drug screen was negative. Pro-calcitonin level has been consistently low. A focused on level was at 0.15. The patient currently is on oxygen 4 L per minute nasal cannula. She is afebrile. She is medically and hemodynamically stable at this point in time. She has poor dental conditions and poor oral hygiene. She has also developed some ulceration over the tip of the tongue probably related to candidal infection. On 2021, the patient's condition decompensated and the patient got transferred to the intensive care unit for respiratory support. Overnight, the patient became progressively more hypoxemic and short of breath. She was given a dose of Lasix 40 mg IV push without any much improvement. She was becoming also more lethargic and short of breath. She got transferred to the ICU. Currently she is on a BiPAP at a pressure of 12/6 cm of water with an FiO2 of 100%. Her Pulse Ox Is 99%. A Chest X-Ray Showed Extensive Consolidation of the Left Lung. There Are Some Air Bronchograms on the Left. At the Same Time There Are Some Air Pockets in the Left [place] Which Makes Me Concerned about an Underlying Cavitation/Abscess Formation. At the Same Time, There Is Progression of the Airspace Disease and There Is Development of New Patchy Opacities in the Right Midlung and the Right Lower Lung. Note That the Patient Was Covered with IV Zosyn for Any Potential Aspiration Pneumonia.Pro-Calcitonin Level Was at 0.15. Currently She Is on BiPAP Which Is Quite Comfortable. She instructed BiPAP dependent. The patient easily decompensates and desaturates 1 she's taken off the BiPAP. Note that she also had extensive oropharyngeal candidiasis and ulceration of the tongue for which she was given Diflucan. I added cold solution on her yesterday. She is unable to do adequate oral care as the patient is BiPAP dependent. In terms of IV fluids, the patient is on D5 water running at 40 mL an hour. This was started due to concerns of underlying episodes of hypoglycemia. She is a very brittle diabetic. Her blood sugars are all over the place. She is currently on Levemir insulin 20 units a day along with a sliding scale coverage. The Levemir insulin was given today. She is not eating much at this point in time as the patient is BiPAP dependent. Other blood work, her white cell count of 19.0 which is higher compared to yesterday. Hemoglobin is at 7.8. The blood gas while on 100% BiPAP initially showed a pH of 7.37 with a pCO2 of 46 and pO2 of 50. Current saturations up to 90%. Sodium is at 130 with a potassium level of 3.4 and a serum bicarb of 23 with a mean of 4 and a creatinine of 0.4. Her albumin is down to 2.0 with a total protein of 5.7. Cultures for now are negative in terms of blood culture. Note that the patient had MRSA and E. coli and strep in her urine back in 05/09/2021. She has also has had a previous MRSA wound infection involving the scalp. She is arousable. She is a bit lethargic. No agitation. Objective - Vital Signs Vital signs: Vital Signs Temp 99.5 F 05/20/21 04:00 Pulse 97 05/20/21 07:00 Resp 21 05/20/21 07:00 BP 100/67 05/20/21 07:00 Pulse Ox 97 05/20/21 07:00 Intake & Output 05/19/21 05/20/21 05/20/21 18:59 06:59 18:59 Intake Total 120 40 Output Total 0 2700 Balance 120 -2660 Weight 49.442 kg Intake: IV 120 40 Dextrose 5% in Water 1, 120 40 000 ml @ 40 mls/hr IV . Q24H [facility] Rx#:[id number] Output: Urine 0 2700 Uretheral ([place]rellana) 1350 Other: Voiding Method Bedside Commode External Catheter Incontinent # Voids 1 - Exam No acute distress, oriented 3. The patient is not manifesting any signs or symptoms of respiratory distress. Breathing is nonlabored and the patient is currently on a BiPAP at a pressure of 12/60 cm of water with an FiO2 of 100%. Current pulse ox is 98%. HEENT examination is grossly unremarkable. The patient has ulcerative of the tongue which is affecting her ability to swallow and eat foods. Neck supple. Full range of motion. No adenopathy thyromegaly or neck vein distention. Cardiovascular examination reveals regular rhythm rate. S1-S2 normal. No S3 or S4. No discernible murmur noted. Lungs reveal diminished breath sounds on the left. Scattered rhonchi bilaterally. No wheezes or crackles. Abdomen soft bowel sounds are heard. No masses or tenderness. Extremities are intact. No cyanosis clubbing or edema. Skin is without rash or lesion. Neurologic examination is brief but nonfocal. - Labs CBC & Chem 7: 05/20/21 05:09 05/20/21 05:09 Labs: Abnormal Lab Results - Last 24 Hours (Table) 05/19/21 05/19/21 05/19/21 Range/Units 04:29 11:25 11:25 WBC 13.97 H 12.4 H (4.50-10.00) X 10*3/uL RBC 2.57 L 3.42 L (4.10-5.20) X 10*6/uL Hgb 6.2 L* 8.5 L (12.0-15.0) g/dL Hct 21.3 L 29.4 L (37.2-46.3) % MCH 24.1 L 24.8 L (27.0-32.0) pg MCHC 29.1 L 28.9 L (32.0-37.0) g/dL RDW 17.4 H 16.8 H (11.5-14.5) % Immature Gran # 0.15 H (0.00-0.04) X 10*3/uL Neutrophils # 11.63 H 9.7 H (1.80-7.70) X 10*3/uL ABG pCO2 (35-45) mmHg ABG pO2 (83-108) mmHg ABG HCO3 (21-25) mmol/L ABG Total CO2 (19-24) mmol/L ABG O2 Saturation (94-97) % Sodium 134 L (137-145) mmol/L Potassium 3.3 L (3.5-5.1) mmol/L BUN 5 L (7-17) mg/dL Creatinine 0.41 L (0.52-1.04) mg/dL Glucose 43 L* (74-99) mg/dL POC Glucose (mg/dL) (75-99) mg/dL Calcium 7.2 L (8.4-10.2) mg/dL Total Protein 5.3 L (6.3-8.2) g/dL Albumin 1.8 L (3.5-5.0) g/dL 05/19/21 05/19/21 05/19/21 Range/Units 11:38 16:25 20:10 WBC (4.50-10.00) X 10*3/uL RBC (4.10-5.20) X 10*6/uL Hgb (12.0-15.0) g/dL Hct (37.2-46.3) % MCH (27.0-32.0) pg MCHC (32.0-37.0) g/dL RDW (11.5-14.5) % Immature Gran # (0.00-0.04) X 10*3/uL Neutrophils # (1.80-7.70) X 10*3/uL ABG pCO2 (35-45) mmHg ABG pO2 (83-108) mmHg ABG HCO3 (21-25) mmol/L ABG Total CO2 (19-24) mmol/L ABG O2 Saturation (94-97) % Sodium (137-145) mmol/L Potassium (3.5-5.1) mmol/L BUN (7-17) mg/dL Creatinine (0.52-1.04) mg/dL Glucose (74-99) mg/dL POC Glucose (mg/dL) 47 L 118 H 147 H (75-99) mg/dL Calcium (8.4-10.2) mg/dL Total Protein (6.3-8.2) g/dL Albumin (3.5-5.0) g/dL 05/19/21 05/20/21 05/20/21 Range/Units 23:00 01:54 02:25 WBC (4.50-10.00) X 10*3/uL RBC (4.10-5.20) X 10*6/uL Hgb (12.0-15.0) g/dL Hct (37.2-46.3) % MCH (27.0-32.0) pg MCHC (32.0-37.0) g/dL RDW (11.5-14.5) % Immature Gran # (0.00-0.04) X 10*3/uL Neutrophils # (1.80-7.70) X 10*3/uL ABG pCO2 46 H (35-45) mmHg ABG pO2 50 L* (83-108) mmHg ABG HCO3 26 H (21-25) mmol/L ABG Total CO2 28 H (19-24) mmol/L ABG O2 Saturation 83.0 L (94-97) % Sodium (137-145) mmol/L Potassium (3.5-5.1) mmol/L BUN (7-17) mg/dL Creatinine (0.52-1.04) mg/dL Glucose (74-99) mg/dL POC Glucose (mg/dL) 164 H 213 H (75-99) mg/dL Calcium (8.4-10.2) mg/dL Total Protein (6.3-8.2) g/dL Albumin (3.5-5.0) g/dL 05/20/21 05/20/21 05/20/21 Range/Units 03:16 05:09 05:09 WBC 19.1 H (4.50-10.00) X 10*3/uL RBC 3.14 L (4.10-5.20) X 10*6/uL Hgb 7.8 L (12.0-15.0) g/dL Hct 26.0 L (37.2-46.3) % MCH 24.9 L (27.0-32.0) pg MCHC 30.0 L (32.0-37.0) g/dL RDW 17.2 H (11.5-14.5) % Immature Gran # (0.00-0.04) X 10*3/uL Neutrophils # 17.0 H (1.80-7.70) X 10*3/uL ABG pCO2 (35-45) mmHg ABG pO2 (83-108) mmHg ABG HCO3 (21-25) mmol/L ABG Total CO2 (19-24) mmol/L ABG O2 Saturation (94-97) % Sodium 130 L (137-145) mmol/L Potassium 3.4 L (3.5-5.1) mmol/L BUN 4 L (7-17) mg/dL Creatinine 0.49 L (0.52-1.04) mg/dL Glucose 171 H (74-99) mg/dL POC Glucose (mg/dL) 191 H (75-99) mg/dL Calcium 7.2 L (8.4-10.2) mg/dL Total Protein 5.7 L (6.3-8.2) g/dL Albumin 2.0 L (3.5-5.0) g/dL 05/20/21 Range/Units 07:04 WBC (4.50-10.00) X 10*3/uL RBC (4.10-5.20) X 10*6/uL Hgb (12.0-15.0) g/dL Hct (37.2-46.3) % MCH (27.0-32.0) pg MCHC (32.0-37.0) g/dL RDW (11.5-14.5) % Immature Gran # (0.00-0.04) X 10*3/uL Neutrophils # (1.80-7.70) X 10*3/uL ABG pCO2 (35-45) mmHg ABG pO2 (83-108) mmHg ABG HCO3 (21-25) mmol/L ABG Total CO2 (19-24) mmol/L ABG O2 Saturation (94-97) % Sodium (137-145) mmol/L Potassium (3.5-5.1) mmol/L BUN (7-17) mg/dL Creatinine (0.52-1.04) mg/dL Glucose (74-99) mg/dL POC Glucose (mg/dL) 210 H (75-99) mg/dL Calcium (8.4-10.2) mg/dL Total Protein (6.3-8.2) g/dL Albumin (3.5-5.0) g/dL Microbiology - Last 24 Hours (Table) 05/17/21 16:53 Blood Culture - Preliminary Blood No Growth after 48 hours 05/17/21 16:54 Blood Culture - Preliminary Blood No Growth after 48 hours Assessment and Plan Plan: 1 Mental status changes, secondary to hypoglycemia. This has recovered and the patient is back to normal mentation. The patient is on long-acting insulin. 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 2 History of diabetes, with a recent episode of diabetic ketoacidosis, rec overed. The patient continues to have a very brittle blood sugar. She is on Levemir insulin 20 units along with a sinus Coverage. She is also on D5 water at the rate of 40 mL an hour. 3 acute hypoxic respiratory failure , and the patient developed worsening and progression of the pneumonia and there are areas of patchy consolidation or airspace disease involving the right midlung in the right upper lobe and the right lower lobe in addition to extensive consolidation of the left lung with possibly some cavitation. Consider a drug resistant gram-negative pneumonia. Consider a MRSA infection and for that reason the antibiotics will be modified. The patient was on Zosyn during her current admission and during her previous admission. The patient is currently on a BiPAP at a pressure of 12/6 cm of water with an FiO2 of 100%. 4 extensive and Dense consolidation and pneumonia of the left lung with minimal changes in the right lung base. The patient condition progressed while being o n IV Zosyn and antibiotic modification will be done accordingly. 5 History of syncope. 6 History of diabetic neuropathy. 7 History of migraine cephalgia. 8 Prior history of MRSA infection. 9 Chronic constipation. 10 Chronic low back pain. 11 tongue ulceration and the patient is currently on Diflucan for oropharyngeal candidiasis. Plan Continue BiPAP for respiratory support at the same settings Will need antibiotic adjustments. The patient will be given a combination of IV Merrem covering for gram-negative resistant microorganisms in addition to vancomycin covering for staph pneumonia. The left lung consolidations remain unchanged and there is some early cavitation left upper lobe. There is also interval progression along with consolidation of the right side on today's chest x-ray in the patient's oxidation is definitely gotten worse. Repeat pro-calcitonin level Blood sugar management with Levemir insulin. Continue the maintenance of 40 mL's of D5 water at this point in time. Continue BiPAP therapy. Should the patient failed BiPAP, the patient will require intubation mechanical ventilation. At that point, performing a bronchoscopy would be reasonable. A bronchoscopy at this point in time will be quite complicated as the patient would not be able to tolerate the procedure without being intubated. The patient is cachectic with a BMI of 20.6 Poor dental on oral hygiene Condition is critical. The mother will be informed of these changes. We'll continue to follow. Critical care evaluation that was done and more than 30 minutes. Time with Patient: Greater than 30
[2021-05-20] MEDS: DEXTROSE 5% IN WATER 1,000 ML IV SCH (09:39)
[2021-05-20] MEDS: CHOLECALCIFEROL 25 MCG (1000 IU) TABLET PO SCH (09:42)
[2021-05-20] MEDS: NYSTATIN 100,000 UNIT/ML SUSP 500,000 UNIT/5 ML CUP PO SCH ×4 (09:42→22:07)
[2021-05-20] MEDS: ESCITALOPRAM 20 MG TAB PO SCH (09:42)
[2021-05-20] MEDS: METOPROLOL TARTRATE 12.5 MG TAB PO SCH ×2 (09:42→20:52)
[2021-05-20] MEDS: ZINC SULFATE 220 MG CAP PO SCH (09:43)
[2021-05-20] MEDS: MAG HYDROX/AL HYDROX/SIMETH 30 ML, LIDOCAINE VISCOUS 30 ML, diphenhydrAMINE ELIXIR 75 M... PO SCH ×12 (09:43→22:07)
[2021-05-20] MEDS: PREGABALIN 75 MG CAP PO SCH ×3 (09:43→22:03)
[2021-05-20] MEDS: FLUCONAZOLE IN NACL,ISO-OSM 100 MG in SALINE 1 50ML.BAG IVPB SCH (09:46)
[2021-05-20] MEDS ORDERED: MEROPENEM 1 GM in SODIUM CHLORIDE 0.9% 100 ML IVPB SCH (10:00)
[2021-05-20] MEDS ORDERED: Magnesium Replacement Protocol 1 EACH MISC MISCELLANE PRN ×2 (10:06→15:19)
[2021-05-20 11:46] LABS: Glucose,Whole Blood 131 mg/dL (75-99)
[2021-05-20] MEDS: FOLIC ACID 1 MG TAB PO SCH (14:08)
[2021-05-20] MEDS: MULTIVITAMINS, THERA 1 EACH TAB PO SCH (14:08)
[2021-05-20] MEDS: VANCOMYCIN 1,000 MG in SODIUM CHLORIDE 0.9% 250 ML IVPB SCH ×2 (14:09→17:15)
[2021-05-20] MEDS ORDERED: Potassium Replacement Protocol 1 EACH MISC MISCELLANE PRN (15:18)
--- NOTE | 2021-05-20 15:22 | P.PN ---
Subjective Progress Note Date: 05/20/21 This is a 36-year-old female who was recently admitted with changes in mental status along with significant hypoglycemia and is being closely monitored. Patient continues on 100% BiPAP with continued dyspnea and pulmonary following closely. Patient also found to have bilateral pneumonia possible aspiration and also a fungal urinary tract infection. Patient continues in the ICU for close monitoring and infectious disease is also following. Patient continues on IV antibiotics in the form of meropenem along with fluconazole and vancomycin and will continue. Multiple family members at the bedside. Recommend repeat chest x-ray along with labs in the morning. White blood Count elevated at 19.1. Potassium is 3.4 and magnesium 1.6 and will replace per protocol. Review of systems: Unable to obtain as patient is lethargic and on BIpap Labs: WBC is 19.1, hemoglobin is 7.8, platelets are 436, sodium is 130, potassium is 3.4, BUN is 4, creatinine is 0.49, calcium is 7.2, magnesium 1.6 Active Medications Hydrocodone Bitart/Acetaminophen (Hydrocodone/Apap 5-325mg 1 Each Tab) 1 each PO Q6HR PRN PRN Reason: Pain Amitriptyline HCl (Amitriptyline Hcl 10 Mg Tab) 10 mg PO HS [facility] Last Admin: 05/19/21 21:17 Dose: 10 mg Documented by: Cholecalciferol (Cholecalciferol 25 Mcg (1000 Iu) Tablet) 50 mcg PO DAILY [facility] Last Admin: 05/20/21 09:42 Dose: Not Given Documented by: Al Hydroxide/Mg Hydroxide 30 ml/ Lidocaine HCl 30 ml/Diphenhydramine HCl 75 mg/Nystatin 3,000,000 unit 0 ml PO TID [facility] Last Admin: 05/20/21 09:43 Dose: Not Given Documented by: Escitalopram Oxalate (Escitalopram 20 Mg Tab) 20 mg PO DAILY [facility] Last Admin: 05/20/21 09:42 Dose: Not Given Documented by: Folic Acid (Folic Acid 1 Mg Tab) 1 mg PO DAILY@1200 [facility] Last Admin: 05/20/21 14:08 Dose: Not Given Documented by: Dextrose/Water (Dextrose 5%-Water Iv Soln) 1,000 mls @ 40 mls/hr IV .Q24H [facility] Last Admin: 05/20/21 09:39 Dose: 40 mls/hr Documented by: Meropenem 1 gm/ Sodium (Chloride) 100 mls @ 33.3 mls/hr IVPB Q8H [facility]; Protocol Last Admin: 05/20/21 14:14 Dose: 33.3 mls/hr Documented by: Fluconazole/Sodium Chloride (100 mg/ IV Solution) 50 mls @ 50 mls/hr IVPB DAILY [facility] Last Admin: 05/20/21 09:46 Dose: 50 mls/hr Documented by: Vancomycin HCl 1,000 mg/ (Sodium Chloride) 250 mls @ 125 mls/hr IVPB Q8H [facility] Last Admin: 05/20/21 14:09 Dose: Not Given Documented by: Insulin Aspart (Insulin Aspart (Novolog) 100 Unit/Ml Vial) 0 unit SQ ACHS [facility]; Protocol Last Admin: 05/20/21 14:08 Dose: Not Given Documented by: Insulin Detemir (Insulin Detemir (Levemir) 100 Unit/Ml Syr) 20 unit SQ [facility] Last Admin: 05/19/21 19:07 Dose: Not Given Documented by: Lisinopril (Lisinopril 2.5 Mg Tab) 2.5 mg PO DAILY [facility] Last Admin: 05/20/21 09:42 Dose: Not Given Documented by: Loperamide HCl (Loperamide 2 Mg Cap) 2 mg PO QID PRN PRN Reason: Diarrhea Last Admin: 05/19/21 10:56 Dose: 2 mg Documented by: Metoprolol Tartrate (Metoprolol Tartrate 12.5 Mg Tab) 12.5 mg PO BID [facility] Last Admin: 05/20/21 09:42 Dose: Not Given Documented by: Miscellaneous Information (Magnesium Replacement Protocol 1 Each Misc) 1 each MISCELLANE DAILY PRN; Protocol PRN Reason: Per Protocol Miscellaneous Information (Potassium Replacement Protocol 1 Each Misc) 1 each MISCELLANE DAILY PRN; Protocol PRN Reason: Per Protocol Montelukast Sodium (Montelukast 10 Mg Tab) 10 mg PO HS [facility] Last Admin: 05/19/21 21:17 Dose: 10 mg Documented by: Multivitamins (Multivitamins, Thera 1 Each Tab) 1 each PO DAILY@1200 [facility] Last Admin: 05/20/21 14:08 Dose: Not Given Documented by: Naloxone HCl (Naloxone 0.4 Mg/Ml 1 Ml Vial) 0.2 mg IV Q2M PRN PRN Reason: Opioid Reversal Nystatin (Nystatin 100,000 Unit/Ml Susp 500,000 Unit/5 Ml Cup) 500,000 unit PO QID [facility] Last Admin: 05/20/21 14:08 Dose: Not Given Documented by: Ondansetron HCl (Ondansetron 4 Mg/2 Ml Vial) 4 mg IVP Q6HR PRN PRN Reason: Nausea And Vomiting Last Admin: 05/20/21 14:17 Dose: 4 mg Documented by: Pantoprazole Sodium (Pantoprazole 40 Mg Tablet) 40 mg PO AC-BRKFST [facility] Last Admin: 05/20/21 07:05 Dose: Not Given Documented by: Pregabalin (Pregabalin 75 Mg Cap) 75 mg PO TID [facility] Last Admin: 05/20/21 09:43 Dose: Not Given Documented by: Sumatriptan Succinate (Sumatriptan Succinate 50 Mg Tab) 100 mg PO DAILY PRN PRN Reason: Migraine Headache Thiamine HCl (Thiamine 100 Mg Tab) 100 mg PO BID-W/MEALS [facility] Last Admin: 05/20/21 07:30 Dose: Not Given Documented by: Zinc Sulfate (Zinc Sulfate 220 Mg Cap) 220 mg PO DAILY [facility] Last Admin: 05/20/21 09:43 Dose: Not Given Documented by: Physical Exam: Gen: This is a 36-year-old female who is awake, alert and oriented 3, thin built, cachectic. Temp is 97.5F, pulse is 99, respirations are 20, blood pressure is 93/64, oxygen saturation is 100% on BIPAP and FiO2 of 100% HEENT: Head is atraumatic, normocephalic. Pupils equal, round. Sclerae is anicteric. NECK: Supple. No JVD. No lymphadenopathy. No thyromegaly. LUNGS: Breath sounds diminished with scattered rhonchi noted. No intercostal retractions. HEART: S1, S2 are muffled ABDOMEN: Soft. Bowel sounds are present. No masses. No tenderness. EXTREMITIES: No pedal edema. No calf tenderness. NEUROLOGICAL: Patient is awake, alert and oriented 3, diffusely weak . Assessment: Acute bilateral pneumonia, left more than right with aspiration pneumonia with sepsis, present on admission Change in mental status, acute metabolic encephalopathy, multifactorial Acute hypoglycemia Severe hypokalemia Severe hyponatremia Fungal urinary tract infection Severe protein calorie malnutrition with a body mass index of 20.6 x 5 diabetes mellitus type 2 uncontrolled with hypoglycemia Hypoalbuminemia Increased white count Anemia history of syncope history of diabetes mellitus type 1 History of peripheral neuropathy History of migraines History of HPV History of MRSA history of tubal ligation Anxiety, depression Gait dysfunction Full code Plan: Recommend to continue with current medications and follow along closely with multiple medical consultations. Infectious disease and pulmonary following closely and patient continues on 100% BiPAP with shortness of breath. Multiple family members at the bedside and questions and concerns answered to the best of our ability. There was discussion of possible bronchoscopy although patient currently unable to tolerate and if requiring mechanical intubation pulmonary may consider at that time. Patient is continued on IV antibiotics with infectious disease following closely and monitoring closely. Recommend repeat labs and follow-up chest x-ray in the morning. Recommend to keep the bed elevated 30-45 at all times and maintain aspiration precautions. Patient is continued on Merrem and fluconazole along with vancomycin and will continue. Patient continues with extreme dyspnea and being closely monitored in the ICU with Dr. Fields following closely. Due to multiple complex medical issues prognosis is guarded. Objective - Vital Signs Vital signs: Vital Signs Temp 97.5 F L 05/20/21 13:00 Pulse 99 05/20/21 13:00 Resp 20 05/20/21 13:00 BP 93/64 05/20/21 13:00 Pulse Ox 100 05/20/21 13:00 Intake & Output 05/19/21 05/20/21 05/20/21 18:59 06:59 18:59 Intake Total 120 740 Output Total 0 4450 Balance 120 -3710 Weight 49.442 kg Intake: IV 120 740 Dextrose 5% in Water 1, 120 240 000 ml @ 40 mls/hr IV . Q24H [facility] Rx#:[id number] Magnesium Sulfate-D5w Pmx 200 1 gm In Dextrose/Water 1 100ml.bag @ 100 mls/hr IVPB Q1H [facility] Rx#: [id number] Piperacillin-Tazobactam 3 100 .375 gm In Sodium Chloride 0.9% 100 ml @ 25 mls/hr IVPB Q8HR [facility] Rx# :[id number] Potassium Chloride 10 meq 200 In Water For Injection 1 100ml.bag @ 100 mls/hr IVPB Q1HR [facility] Rx#: [id number] Output: Urine 0 4450 Uretheral (Orellana) 1350 Other: Voiding Method Bedside Commode External Catheter Incontinent Incontinent # Voids 1 - Labs CBC & Chem 7: 05/20/21 05:09 05/20/21 05:09 Labs: Abnormal Lab Results - Last 24 Hours (Table) 05/19/21 05/19/21 05/19/21 Range/Units 16:25 20:10 23:00 WBC (3.8-10.6) k/uL RBC (3.80-5.40) m/uL Hgb (11.4-16.0) gm/dL Hct (34.0-46.0) % MCH (25.0-35.0) pg MCHC (31.0-37.0) g/dL RDW (11.5-15.5) % Neutrophils # (1.3-7.7) k/uL ABG pCO2 (35-45) mmHg ABG pO2 (83-108) mmHg ABG HCO3 (21-25) mmol/L ABG Total CO2 (19-24) mmol/L ABG O2 Saturation (94-97) % Sodium (137-145) mmol/L Potassium (3.5-5.1) mmol/L BUN (7-17) mg/dL Creatinine (0.52-1.04) mg/dL Glucose (74-99) mg/dL POC Glucose (mg/dL) 118 H 147 H 164 H (75-99) mg/dL Calcium (8.4-10.2) mg/dL Total Protein (6.3-8.2) g/dL Albumin (3.5-5.0) g/dL 05/20/21 05/20/21 05/20/21 Range/Units 01:54 02:25 03:16 WBC (3.8-10.6) k/uL RBC (3.80-5.40) m/uL Hgb (11.4-16.0) gm/dL Hct (34.0-46.0) % MCH (25.0-35.0) pg MCHC (31.0-37.0) g/dL RDW (11.5-15.5) % Neutrophils # (1.3-7.7) k/uL ABG pCO2 46 H (35-45) mmHg ABG pO2 50 L* (83-108) mmHg ABG HCO3 26 H (21-25) mmol/L ABG Total CO2 28 H (19-24) mmol/L ABG O2 Saturation 83.0 L (94-97) % Sodium (137-145) mmol/L Potassium (3.5-5.1) mmol/L BUN (7-17) mg/dL Creatinine (0.52-1.04) mg/dL Glucose (74-99) mg/dL POC Glucose (mg/dL) 213 H 191 H (75-99) mg/dL Calcium (8.4-10.2) mg/dL Total Protein (6.3-8.2) g/dL Albumin (3.5-5.0) g/dL 05/20/21 05/20/21 05/20/21 Range/Units 05:09 05:09 07:04 WBC 19.1 H (3.8-10.6) k/uL RBC 3.14 L (3.80-5.40) m/uL Hgb 7.8 L (11.4-16.0) gm/dL Hct 26.0 L (34.0-46.0) % MCH 24.9 L (25.0-35.0) pg MCHC 30.0 L (31.0-37.0) g/dL RDW 17.2 H (11.5-15.5) % Neutrophils # 17.0 H (1.3-7.7) k/uL ABG pCO2 (35-45) mmHg ABG pO2 (83-108) mmHg ABG HCO3 (21-25) mmol/L ABG Total CO2 (19-24) mmol/L ABG O2 Saturation (94-97) % Sodium 130 L (137-145) mmol/L Potassium 3.4 L (3.5-5.1) mmol/L BUN 4 L (7-17) mg/dL Creatinine 0.49 L (0.52-1.04) mg/dL Glucose 171 H (74-99) mg/dL POC Glucose (mg/dL) 210 H (75-99) mg/dL Calcium 7.2 L (8.4-10.2) mg/dL Total Protein 5.7 L (6.3-8.2) g/dL Albumin 2.0 L (3.5-5.0) g/dL 01/11/22 Range/Units 11:44 WBC (3.8-10.6) k/uL RBC (3.80-5.40) m/uL Hgb (11.4-16.0) gm/dL Hct (34.0-46.0) % MCH (25.0-35.0) pg MCHC (31.0-37.0) g/dL RDW (11.5-15.5) % Neutrophils # (1.3-7.7) k/uL ABG pCO2 (35-45) mmHg ABG pO2 (83-108) mmHg ABG HCO3 (21-25) mmol/L ABG Total CO2 (19-24) mmol/L ABG O2 Saturation (94-97) % Sodium (137-145) mmol/L Potassium (3.5-5.1) mmol/L BUN (7-17) mg/dL Creatinine (0.52-1.04) mg/dL Glucose (74-99) mg/dL POC Glucose (mg/dL) 131 H (75-99) mg/dL Calcium (8.4-10.2) mg/dL Total Protein (6.3-8.2) g/dL Albumin (3.5-5.0) g/dL Microbiology - Last 24 Hours (Table) 05/17/21 16:53 Blood Culture - Preliminary Blood No Growth after 48 hours 05/17/21 16:54 Blood Culture - Preliminary Blood No Growth after 48 hours
[2021-05-20] MEDS ORDERED: MAGNESIUM SULFATE-D5W PMX 1 GM in DEXTROSE/WATER 1 100ML.BAG IVPB SCH (15:30)
[2021-05-20] MEDS ORDERED: LIDOCAINE 1% INJ 10MG/ML (20 ML MDV) SQ ONE (15:30)
[2021-05-20] MEDS ORDERED: POTASSIUM CHLORIDE 10 MEQ in WATER FOR INJECTION 1 100ML.BAG IVPB SCH (16:00)
[2021-05-20 17:20] LABS: Glucose,Whole Blood 126 mg/dL (75-99)
--- NOTE | 2021-05-20 17:21 | XR ---
EXAMINATION TYPE: XR chest 1V confirm line [facility] DATE OF EXAM: 05/20/2021 COMPARISON: 05/19/2021 HISTORY: Confirm PICC line placement TECHNIQUE: Single frontal view of the chest is obtained. IMPRESSION: Interval placement of a right upper extremity catheter. The tip of the catheter crosses the midline to the left. Is difficult to place the tip within the right atrium with confidence given the appearance. Clinical correlation recommended prior to using the PICC line. Scattered bilateral patchy airspace and interstitial opacities slightly decreased on the left and inc reased on the right which may be reflective of multifocal pneumonia, mild pulmonary edema and/or atel ectasis. Small left pleural effusion significantly decreased in size compared to the prior study. No right-ayana ed effusion. No pneumothorax appreciated. The heart is not enlarged. The osseous structures are not significantly changed in appearance compared to the prior study.
[2021-05-20] MEDS: PANTOPRAZOLE 40 MG/10 ML VIAL IVP SCH (18:50)
[2021-05-20 20:10] LABS: HIV 2 AB Non-Reactive (Non-Reactive); HIV AB P24 Non-Reactive (Non-Reactive); HIV P24 AG Non-Reactive (Non-Reactive)
[2021-05-20 21:11] LABS: Glucose,Whole Blood 159 mg/dL (75-99)
[2021-05-20 21:25] LABS: Glucose,Whole Blood 169 mg/dL (75-99)
[2021-05-20] MEDS: AMITRIPTYLINE HCL 10 MG TAB PO SCH (22:02)
[2021-05-20] MEDS: MONTELUKAST 10 MG TAB PO SCH (22:02)
[2021-05-20] MEDS: INSULIN DETEMIR (LEVEMIR) 100 UNIT/ML SYR SQ SCH (22:02)
[2021-05-20] MEDS: MEROPENEM 1 GM in SODIUM CHLORIDE 0.9% 100 ML IVPB SCH (22:07)
[2021-05-21] MEDS: VANCOMYCIN 1,000 MG in SODIUM CHLORIDE 0.9% 250 ML IVPB SCH ×3 (01:21→17:51)
[2021-05-21] MEDS: HYDROcodone/APAP 5-325MG 1 EACH TAB PO PRN ×2 (01:40→08:08)
[2021-05-21 02:28] LABS: Glucose,Whole Blood 495 mg/dL (75-99)
[2021-05-21 02:30] LABS: Glucose,Whole Blood 132 mg/dL (75-99)
[2021-05-21 06:05] LABS: Anisocytosis Slight; HCT 26.8 % (34.0-46.0); HGB 7.9 gm/dL (11.4-16.0); Hypochromasia Marked; MCH 25.4 pg (25.0-35.0); MCHC 29.6 g/dL (31.0-37.0); MCV 85.9 fL (80.0-100.0); Platelet Count 482 k/uL (150-450); RBC 3.12 m/uL (3.80-5.40); RDW 16.5 % (11.5-15.5); WBC 20.2 k/uL (3.8-10.6)
[2021-05-21 06:30] LABS: African American GFR (CKD) >90 (>60 ml/min/1.73 sqM); Anion Gap 5 mmol/L; Blood Urea Nitrogen 5 mg/dL (7-17); Carbon Dioxide 24 mmol/L (22-30); Chloride 104 mmol/L (98-107); Glucose 137 mg/dL (74-99); Non-African American GFR(CKD) >90 (>60 ml/min/1.73 sqM); Potassium 3.7 mmol/L (3.5-5.1); Sodium 133 mmol/L (137-145)
[2021-05-21] MEDS: THIAMINE 100 MG TAB PO SCH ×2 (06:46→17:18)
[2021-05-21] MEDS: MEROPENEM 1 GM in SODIUM CHLORIDE 0.9% 100 ML IVPB SCH ×3 (06:46→22:23)
[2021-05-21 07:10] LABS: Glucose,Whole Blood 134 mg/dL (75-99)
[2021-05-21] MEDS: INSULIN ASPART (NovoLOG) 100 UNIT/ML VIAL SQ SCH ×4 (07:11→22:38)
--- NOTE | 2021-05-21 08:01 | XR ---
EXAMINATION TYPE: XR chest 1V DATE OF EXAM: 05/21/2021 COMPARISON: 05/20/2021 HISTORY: Cough TECHNIQUE: Single frontal view of the chest is obtained. FINDINGS: Right-sided PICC line seen with the tip at the cavoatrial junction. Bilateral diffuse airs pace disease with small effusion. Heart size stable. No pneumothorax. IMPRESSION: Stable diffuse bilateral airspace disease
[2021-05-21] MEDS: NYSTATIN 100,000 UNIT/ML SUSP 500,000 UNIT/5 ML CUP PO SCH ×4 (08:08→22:22)
[2021-05-21] MEDS: CHOLECALCIFEROL 25 MCG (1000 IU) TABLET PO SCH (08:09)
[2021-05-21] MEDS: PREGABALIN 75 MG CAP PO SCH ×4 (08:09→22:38)
[2021-05-21] MEDS: PANTOPRAZOLE 40 MG/10 ML VIAL IVP SCH (08:09)
[2021-05-21] MEDS: ESCITALOPRAM 20 MG TAB PO SCH (08:11)
[2021-05-21] MEDS: FLUCONAZOLE IN NACL,ISO-OSM 100 MG in SALINE 1 50ML.BAG IVPB SCH (08:25)
[2021-05-21] MEDS: POTASSIUM CHLORIDE 10 MEQ in WATER FOR INJECTION 1 100ML.BAG IVPB SCH ×2 (08:28→10:01)
[2021-05-21] MEDS: METOPROLOL TARTRATE 12.5 MG TAB PO SCH ×2 (08:38→22:17)
[2021-05-21] MEDS: MAG HYDROX/AL HYDROX/SIMETH 30 ML, LIDOCAINE VISCOUS 30 ML, diphenhydrAMINE ELIXIR 75 M... PO SCH ×12 (08:39→22:22)
[2021-05-21] MEDS: ZINC SULFATE 220 MG CAP PO SCH (08:39)
--- NOTE | 2021-05-21 09:30 | P.PN ---
Subjective Progress Note Date: 05/21/21 This is a 36-year-old old female, seen in the emergency room, room 10. The patient was just discharged out of the hospital yesterday, May 16. The patient apparently returned to the emergency room, with a low blood sugar. She was brought in by EMS. She apparently has no memory of why she was in the ospital. She apparently was hungry when she came into the ER. She complained of back pain. Her blood glucose on arrival was 36. The patient was in the hospital recently for a left-sided pneumonia. The patient also has a history of diabetes with diabetic ketoacidosis. The patient is currently on O2 at 2 L. She's getting D5 0.9 at 75 mL an hour. She was given Augmentin, but we discontinued it in favor of Zosyn. The patient has a history of diabetes, diabetic neuropathy, chronic low back pain, migraine cephalgia, chronic constipation, and prior MRSA infection. White count 21.9, hemoglobin 8.8, hematocrit 28.7, and platelet count 474,000. Sodium 129, potassium 4.4, chlorides 102, CO2 24, anion gap 3, BUN 7, with a creatinine of 0.29. Albumin is 2. Urine is light yellow in color, and cloudy, leukocyte esterase being small positive, 9 WBCs, and rare bacteria. Drug screen is negative. Testing for ling virus was negative. Chest x-ray shows bilateral pneumonia, with dense consolidation within the left lung, and much less infiltrate in the right base. Progress note dated 05/18/2021. This is a 36-year-old female, who was seen in the emergency department in consultation yesterday, and room 10. The patient was recently discharged from the hospital on May 16. She was brought back in for mental status changes, and a low blood sugar. Apparently her blood glucose was only 36. Her prior admission was for diabetic ketoacidosis, and left-sided ammonia. Currently, she is back to her normal self. The patient is on 4 L nasal O2. She's not complaining of any respiratory distress or difficulty. She has a dry nonproductive cough. She was placed on Zosyn yesterday by our team. She was seen by infectious diseases. She has a history of diabetes, diabetic neuropathy , chronic low back pain, migraine cephalgia, chronic constipation, and prior MRSA infection. Currently, white count 19.3, he will been 7.2, hematocrit 24, and platelet count 449,000. Sodium 133, potassium 3.8, chlorides 100, CO2 21, anion gap 12, UN 7, and creatinine 0.4. Pro-calcitonin level is 0.15. C- reactive protein is 5.7. On today's evaluation of 05/19/2021, the patient is doing well. The patient is awake and alert. No signs of any significant respiratory distress. The patient was restarted back on IV Zosyn. The chest x-ray showed extensive consolidation of the left lung and the CAT scan of the chest also confirmed the same findings. The patient was Hospital as because of hypoglycemia. The patient altered mentation and she recovered fully. She is currently on Levemir 20 units along with sliding scale coverage. She is also on D5 water running at 100 mL an hour. Antibiotic coverage with IV Zosyn. Blood work shows a white cell count 12.4 with hemoglobin 8.5, BUN is at 5 with a creatinine of 0.4 and his sodium is at 134 with a potassium level of 3.3. The COVID 19 test that was negative. Urine drug screen was negative. Pro-calcitonin level has been consistently low. A focused on level was at 0.15. The patient currently is on oxygen 4 L per minute nasal cannula. She is afebrile. She is medically and hemodynamically stable at this point in time. She has poor dental conditions and poor oral hygiene. She has also developed some ulceration over the tip of the tongue probably related to candidal infection. On 2021, the patient's condition decompensated and the patient got transferred to the intensive care unit for respiratory support. Overnight, the patient became progressively more hypoxemic and short of breath. She was given a dose of Lasix 40 mg IV push without any much improvement. She was becoming also more lethargic and short of breath. She got transferred to the ICU. Currently she is on a BiPAP at a pressure of 12/6 cm of water with an FiO2 of 100%. Her Pulse Ox Is 99%. A Chest X-Ray Showed Extensive Consolidation of the Left Lung. There Are Some Air Bronchograms on the Left. At the Same Time There Are Some Air Pockets in the Left Nocatee Which Makes Me Concerned about an Underlying Cavitation/Abscess Formation. At the Same Time, There Is Progression of the Airspace Disease and There Is Development of New Patchy Opacities in the Right Midlung and the Right Lower Lung. Note That the Patient Was Covered with IV Zosyn for Any Potential Aspiration Pneumonia.Pro-Calcitonin Level Was at 0.15. Currently She Is on BiPAP Which Is Quite Comfortable. She instructed BiPAP dependent. The patient easily decompensates and desaturates 1 she's taken off the BiPAP. Note that she also had extensive oropharyngeal candidiasis and ulceration of the tongue for which she was given Diflucan. I added cold solution on her yesterday. She is unable to do adequate oral care as the patient is BiPAP dependent. In terms of IV fluids, the patient is on D5 water running at 40 mL an hour. This was started due to concerns of underlying episodes of hypoglycemia. She is a very brittle diabetic. Her blood sugars are all over the place. She is currently on Levemir insulin 20 units a day along with a sliding scale coverage. The Levemir insulin was given today. She is not eating much at this point in time as the patient is BiPAP dependent. Other blood work, her white cell count of 19.0 which is higher compared to yesterday. Hemoglobin is at 7.8. The blood gas while on 100% BiPAP initially showed a pH of 7.37 with a pCO2 of 46 and pO2 of 50. Current saturations up to 90%. Sodium is at 130 with a potassium level of 3.4 and a serum bicarb of 23 with a mean of 4 and a creatinine of 0.4. Her albumin is down to 2.0 with a total protein of 5.7. Cultures for now are negative in terms of blood culture. Note that the patient had MRSA and E. coli and strep in her urine back in 05/09/2021. She has also has had a previous MRSA wound infection involving the scalp. She is arousable. She is a bit lethargic. No agitation. On 05/21/2021 patient seen in follow-up in the intensive care unit, she currently remains on BiPAP support as of 12 and 600%, and her pulse ox is 99- 100%, she is awake and alert, oriented 3, she is extremely thirsty and hungry, does not appear to be in any acute distress, no complaints of worsening dyspnea, she seems to be breathing comfortably, nursing staff reports that patient was able to come off the BiPAP support to take sips of water, oral care, and pills, and patient tolerates being off BiPAP support better although she does desaturate. She is afebrile, hemodynamically she is stable, she remains on a combination of meropenem and vancomycin and Diflucan which were modified yesterday. Blood cultures have been negative thus far, she's been afebrile, no hemoptysis, no complaints of chest discomfort. Produced 5.2 L in urine output in response to Lasix, and she is in -3.8 L net fluid balance over the last 24 hours, today's chest x-ray has been reviewed, showing stable diffuse bilateral airspace disease. Absent been reviewed, white blood cell count is 20.2, hemoglobin is 7.9, platelet count is 482, serum sodium is 133, potassium 3.7, chloride is 104, CO2 is 24, B1 is 5 creatinine 0.42. Her last pro-calcitonin level from 05/18/2021 was 0.15. Objective - Vital Signs Vital signs: Vital Signs Temp 97.4 F L 05/21/21 08:00 Pulse 98 05/21/21 08:00 Resp 18 05/21/21 08:00 BP 99/68 05/21/21 08:00 Pulse Ox 99 05/21/21 08:00 Intake & Output 05/20/21 05/21/21 05/21/21 18:59 06:59 18:59 Intake Total 760 600 100 Output Total 4725 480 45 Balance -3965 120 55 Weight 50.4 kg Intake: IV 760 600 100 Dextrose 5% in Water 1, 240 480 80 000 ml @ 40 mls/hr IV . Q24H [facility] Rx#:[id number] Magnesium Sulfate-D5w Pmx 200 1 gm In Dextrose/Water 1 100ml.bag @ 100 mls/hr IVPB Q1H [facility] Rx#: [id number] NS 20 120 20 Piperacillin-Tazobactam 3 100 .375 gm In Sodium Chloride 0.9% 100 ml @ 25 mls/hr IVPB Q8HR [facility] Rx# :[id number] Potassium Chloride 10 meq 200 In Water For Injection 1 100ml.bag @ 100 mls/hr IVPB Q1HR [facility] Rx#: [id number] Output: Urine 4725 480 45 Uretheral (Orellana) 1350 Other: Voiding Method Indwelling Catheter Indwelling Catheter Indwelling Catheter - Exam GENERAL EXAM: Alert, very pleasant, 36-year-old frail looking white female, currently on BiPAP support with pressures of 12 and 600% FiO2, breathing comfortably, satting 99-100% comfortable in no apparent distress. HEAD: Normocephalic/atraumatic. EYES: Normal reaction of pupils, equal size. Conjunctiva pink, sclera white. NOSE: Clear with pink turbinates. MOUTH: She has ulcerations of her oral cavity THROAT: No erythema or exudates. NECK: No masses, no JVD, no thyroid enlargement, no adenopathy. CHEST: No chest wall deformity. Symmetrical expansion. LUNGS: diminished air entry with crackles, no wheeze, no rhonchi or dullness. CVS: Regular rate and rhythm, normal S1 and S2, no gallops, no murmurs, no rubs ABDOMEN: Soft, nontender. No hepatosplenomegaly, normal bowel sounds, no guarding or rigidity. EXTREMITIES: No clubbing, no edema, no cyanosis, 2+ pulses and upper and lower extremities. MUSCULOSKELETAL: Muscle strength and tone normal. SPINE: No scoliosis or deformity SKIN: No rashes CENTRAL NERVOUS SYSTEM: Alert and oriented -3. No focal deficits, tone is normal in all 4 extremities. PSYCHIATRIC: Alert and oriented -3. Appropriate affect. Intact judgment and insight. - Labs CBC & Chem 7: 05/21/21 05:50 05/21/21 05:50 Labs: Abnormal Lab Results - Last 24 Hours (Table) 05/20/21 05/20/21 05/20/21 Range/Units 11:44 17:19 21:09 WBC (3.8-10.6) k/uL RBC (3.80-5.40) m/uL Hgb (11.4-16.0) gm/dL Hct (34.0-46.0) % MCHC (31.0-37.0) g/dL RDW (11.5-15.5) % Plt Count (150-450) k/uL Sodium (137-145) mmol/L BUN (7-17) mg/dL Creatinine (0.52-1.04) mg/dL Glucose (74-99) mg/dL POC Glucose (mg/dL) 131 H 126 H 159 H (75-99) mg/dL Calcium (8.4-10.2) mg/dL 05/20/21 05/21/21 05/21/21 Range/Units 21:24 02:27 02:29 WBC (3.8-10.6) k/uL RBC (3.80-5.40) m/uL Hgb (11.4-16.0) gm/dL Hct (34.0-46.0) % MCHC (31.0-37.0) g/dL RDW (11.5-15.5) % Plt Count (150-450) k/uL Sodium (137-145) mmol/L BUN (7-17) mg/dL Creatinine (0.52-1.04) mg/dL Glucose (74-99) mg/dL POC Glucose (mg/dL) 169 H 495 H 132 H (75-99) mg/dL Calcium (8.4-10.2) mg/dL 05/21/21 05/21/21 05/21/21 Range/Units 05:50 05:50 07:08 WBC 20.2 H (3.8-10.6) k/uL RBC 3.12 L (3.80-5.40) m/uL Hgb 7.9 L (11.4-16.0) gm/dL Hct 26.8 L (34.0-46.0) % MCHC 29.6 L (31.0-37.0) g/dL RDW 16.5 H (11.5-15.5) % Plt Count 482 H (150-450) k/uL Sodium 133 L (137-145) mmol/L BUN 5 L (7-17) mg/dL Creatinine 0.42 L (0.52-1.04) mg/dL Glucose 137 H (74-99) mg/dL POC Glucose (mg/dL) 134 H (75-99) mg/dL Calcium 7.0 L (8.4-10.2) mg/dL Microbiology - Last 24 Hours (Table) 05/17/21 16:53 Blood Culture - Preliminary Blood No Growth after 72 hours 05/17/21 16:54 Blood Culture - Preliminary Blood No Growth after 72 hours Assessment and Plan Plan: Assessment: #1. Altered mental status secondary to hypoglycemia., Patient has recovered, and she is currently back to baseline neurologically, she is awake and alert, oriented 3. Patient has a history of brittle diabetes mellitus which has been difficult to control. Currently remains on D5 W a rate of 40 ML per hour, we'll initiate oral intake, today, patient has been taken off the BiPAP support #2. Acute hypoxic respiratory failure related to worsening and progression of pneumonia, and chest x-ray showing patchy consolidation involving the right midlung, right upper lobe and right lower lobe in addition to extensive consolidation of the left lung with possibly some cavitation. Patient is currently covered with meropenem and vancomycin, her antibiotics have been modified yesterday, initially covered with Zosyn, today we'll trial the patient on Airvo, and patient will be given a break off the BiPAP support which was at a pressure of 12/6 and FiOof her percent #3. History of diabetes, and recent episode of diabetic ketoacidosis, recovered. Levemir insulin has been discontinued and patient is currently covered with sliding scale NovoLog, her last episode of hypoglycemia was on 05/19/2021 with a blood sugar of 45. No recurrence of hypoglycemia since #4. History of syncopal episodes related to hypoglycemia #5. History of migraine cephalgia #6. History of diabetic neuropathy #7. Chronic constipation #8. Chronic low back pain #9. Tongue and oral pharyngeal candidiasis, with ulcerations #10. Previous history of MRSA infection in the laceration of the scalp Plan: Continue current antibiotics Today's chest x-ray has been reviewed, possibly showing slight improvement in the appearance of this bilateral consolidations Oxygenation has been stable, and patient is breathing comfortably on BiPAP, No tachypnea, minute ventilation is within normal limits Saturations 100% on the BiPAP settings, We will give a trial off BiPAP and placed on Airvo and flow and FiO2 will be titrated to keep O2 sat duration is above 92% We'll start the patient on oral diet, continue D5W at 40 ML per hour Continue holding basal insulin, there has been no hypoglycemia overnight Cover the patient per sliding scale NovoLog Continue most of the patient in the intensive care unit Clinically she seems to be a bit improved compared to yesterday follow up CXR and blood work in the morning I performed a history & physical examination of the patient and discussed their management with my nurse practitioner, Dania Negron. I reviewed the nurse practitioner's note and agree with the documented findings and plan of care. Lung sounds are positive for dim breath sounds throughout the lung abbott. The findings and the impression was discussed with the patient. I attest to the documentation by the nurse practitioner. Time with Patient: Greater than 30
[2021-05-21 12:23] LABS: Glucose,Whole Blood 184 mg/dL (75-99)
[2021-05-21] MEDS: FOLIC ACID 1 MG TAB PO SCH (12:28)
[2021-05-21] MEDS: MULTIVITAMINS, THERA 1 EACH TAB PO SCH (12:28)
--- NOTE | 2021-05-21 16:07 | CDI ---
Documentation Clarification Form Date: 05/21/2021 03:54:10 PM From: Sylvie Norman CCS, CCDS Admit Date: 05/17/2021 02:55:00 PM Patient Name: Helen Cutler Visit Number: [id number] Discharge Date: ATTENTION: The Clinical Documentation Specialists (CDI) and [facility] Coding Staff appreciate your assistance in clarifying documentation. Please respond to the clarification below the line at the bottom and electronically sign. The CDI & [facility] Coding staff will review the response and follow-up if needed. Please note: Queries are made part of the Legal Health Record. If you have any questions, please contact the author of this message via ITS. Dr. Peter Hamilton: Unspecified anemia is documented in the 05/19 & 05/20 Attending Progress Notes without further specificity. Additional specificity regarding the Type & Acuity of anemia is requested. History/Risk Factors per the 05/17 H/P: IDDM I, Bilateral Neuropathy: Legs & Feet, Chronic Low Back Pain, Bilateral Leg Pain, Migraines, Chronic Constipation, HPV, Chronic Diarrhea with food intake, MRSA, Anxiety, Depression. Clinical indicators: Presented to the ED on 05/17 via EMS with Hypoglycemia, Bloo Sugar 36 per EMS. Family doing CPR upon Dishtank Operator arrival. Discharged from the hospital on 05/16 after being treated for DKA, Dehydration and Pneumonia. Admit with Hypoglycemia and worsening Pneumonia. 05/20 Attending Progress Note Impression: Acute bilateral pneumonia, left > right with aspiration pneumonia, Sepsis POA, Change in mental status, Acute metabolic encephalopathy. Severe Hypokalemia. Severe Hyponatremia. Fungal UTI. Severe protein calorie malnutrition w/BMI 20.6, DM Type 2 uncontrolled with Hypoglycemia. 05/17 VS: T 94.7, P 95 - 114, R 18, BP 128/93, PO 98 2Lnc, BMI: 21.0 Hemoglobin 05/17: 8.8. 05/18: 7.2. 05/19: 6.2, 8.5. 05/20: 7.8. 05/21: 7.9. Hematocrit 05/17: 28.7. 05/18 24.0. 05/19: 21.3, 29.4. 05/20: 26.0. 05/21: 26.8. Treatment 05/17: Accuchecks, Blood cultures, O2 2Lnc, IV Dextrose 50 mls x1, IV Na Cl 500 mls @ 999 mls/hr q31M x2, IV Fluconazole/Na Cl 1000 mls @ 100 mls/hr Daily Please clarify the type and acuity of anemia: [ ] Chronic blood loss anemia [ ] Hemolytic anemia [ ] Drug induced anemia [ ] Nutritional anemia [ ] Anemia of chronic disease, please specify: [ ] Unable to determine [ ] Other, please specify (Template Last Revised: June 2020) Unable to determine MTDD
--- NOTE | 2021-05-21 16:14 | CDI ---
Documentation Clarification Form Date: 05/21/2021 04:08:18 PM From: Sylvie Norman CCS, CCDS Admit Date: 05/17/2021 02:55:00 PM Patient Name: Helen Cutler Visit Number: [id number] Discharge Date: ATTENTION: The Clinical Documentation Specialists (CDI) and [facility] Coding Staff appreciate your assistance in clarifying documentation. Please respond to the clarification below the line at the bottom and electronically sign. The CDI & [facility] Coding staff will review the response and follow-up if needed. Please note: Queries are made part of the Legal Health Record. If you have any questions, please contact the author of this message via ITS. Dr. Peter Hamilton: Conflicting documentation has been found in the medical record. Per the 05/17 ED Note, the 05/17 History & Physical, the 05/17 Pulmonary & 05/17 Infectious Disease Consults, the patient has documented IDDM Type I. Per the 05/21 Attending Physician Progress Note, the patient has documented IDDM II. As attending physician, please provide clarification. History/Risk Factors per the 05/17 H/P: IDDM I, Bilateral Neuropathy: Legs & Feet, Chronic Low Back Pain, Bilateral Leg Pain, Migraines, Chronic Constipation, HPV, Chronic Diarrhea with food intake, MRSA, Anxiety, Depression. Clinical indicators: Presented to the ED on 05/17 via EMS with Hypoglycemia, Bloo Sugar 36 per EMS. Family doing CPR upon Instructor Physical arrival. Discharged from the hospital on 05/16 after being treated for DKA, Dehydration and Pneumonia. Admit with Hypoglycemia and worsening Pneumonia. 05/20 Attending Progress Note Impression: Acute bilateral pneumonia, left > right with aspiration pneumonia, Sepsis POA, Change in mental status, Acute metabolic encephalopathy. Severe Hypokalemia. Severe Hyponatremia. Fungal UTI. Severe protein calorie malnutrition w/BMI 20.6, DM Type 2 uncontrolled with Hypoglycemia. 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
[2021-05-21 16:46] LABS: Glucose,Whole Blood 189 mg/dL (75-99)
[2021-05-21] MEDS: LOPERAMIDE 2 MG CAP PO PRN (17:48)
[2021-05-21] MEDS: INSULIN DETEMIR (LEVEMIR) 100 UNIT/ML SYR SQ SCH (22:18)
[2021-05-21] MEDS: MONTELUKAST 10 MG TAB PO SCH ×2 (22:22→22:38)
[2021-05-21] MEDS: AMITRIPTYLINE HCL 10 MG TAB PO SCH ×2 (22:22→22:38)
[2021-05-21 22:36] LABS: Glucose,Whole Blood 202 mg/dL (75-99)
--- NOTE | 2021-05-21 22:41 | PN ---
PROGRESS NOTE DATE OF SERVICE: 05/21/2021 REASON FOR FOLLOWUP: Pneumonia. INTERVAL HISTORY: The patient is afebrile. The patient is breathing comfortably. The patient denies having any chest pain. No worsening cough or sputum production. No vomiting. No abdominal pain or diarrhea. PHYSICAL EXAMINATION: Blood pressure 100/74, pulse of 98, temperature 98.3. She is 91% on . General description is a middle-aged female lying in bed in no distress. Respiratory system: Unlabored breathing, decreased breath sounds at the base. No wheeze. Heart S1, S2. Regular rate and rhythm. Abdomen soft, no tenderness. LABS: Hemoglobin 7.1, white count 10.2, creatinine 0.42. DIAGNOSTIC IMPRESSION AND PLAN: Patient with possible aspiration pneumonia, currently broadly covered with and vancomycin. We will try to obtain a sputum sample to narrow down antibiotics and monitor her clinical course closely. MMODL / IJN: [id number] /
[2021-05-22] MEDS ORDERED: NOREPINEPHRIN 4 MG-0.9% NS PMX 4 MG/250 ML ML IV ONE (02:10)
[2021-05-22 02:12] LABS: Glucose,Whole Blood 177 mg/dL (75-99)
[2021-05-22] MEDS: NOREPINEPHRINE 4 MG in SODIUM CHLORIDE 0.9% 250 ML IV SCH ×2 (02:15→22:07)
[2021-05-22] MEDS ORDERED: propofoL 100 ML IV ONE (02:15)
[2021-05-22] MEDS ORDERED: SODIUM CHLORIDE 0.9% 1,000 ML IV ONE (02:49)
[2021-05-22] MEDS: VANCOMYCIN 1,000 MG in SODIUM CHLORIDE 0.9% 250 ML IVPB SCH ×3 (02:52→20:14)
[2021-05-22] MEDS: DEXTROSE 5% IN WATER 1,000 ML IV SCH (02:52)
[2021-05-22 02:56] LABS: ABG Base Excess -1.3 mmol/L; ABG HCO3 26 mmol/L (21-25); ABG Oxygen Saturation 97.2 % (94-97); ABG PCO2 58 mmHg (35-45); ABG PH 7.26 (7.35-7.45); ABG PO2 97 mmHg (83-108); ABG TCO2 28 mmol/L (19-24); Allen Test Performed? Yes
--- NOTE | 2021-05-22 02:56 | XR ---
EXAMINATION TYPE: XR chest 1V portable DATE OF EXAM: 05/22/2021 COMPARISON: Yesterday HISTORY: Respiratory failure TECHNIQUE: FINDINGS: Endotracheal tube is 2.3 cm from the lucas. There is moderate pulmonary airspace edema. Th ere is nasogastric tube in the stomach. There is right subclavian catheter with tip in the superior v silva cava. There are chest leads. IMPRESSION: Moderately severe pulmonary edema without change compared to yesterday.
[2021-05-22 05:07] LABS: Anisocytosis Slight; Basophils % (A) 0 %; Eosinophils # (A) 0.2 k/uL (0-0.7); Eosinophils % (A) 1 %; HCT 28.4 % (34.0-46.0); HGB 7.9 gm/dL (11.4-16.0); Hypochromasia Marked; Lymphocytes % (A) 4 %; MCH 24.7 pg (25.0-35.0); MCV 88.2 fL (80.0-100.0); Mean Platelet Volume 7.6; Monocytes # (A) 0.6 k/uL (0-1.0); Monocytes % (A) 2 %; Neutrophils # (A) 24.9 k/uL (1.3-7.7); Neutrophils % (A) 93 %; Platelet Count 530 k/uL (150-450); RBC 3.22 m/uL (3.80-5.40); RDW 16.5 % (11.5-15.5); WBC 26.8 k/uL (3.8-10.6)
[2021-05-22 05:18] LABS: ALT 7 U/L (4-34); AST 21 U/L (14-36); African American GFR (CKD) >90 (>60 ml/min/1.73 sqM); Albumin 1.9 g/dL (3.5-5.0); Alkaline Phosphatase 122 U/L (38-126); Anion Gap 6 mmol/L; Blood Urea Nitrogen 7 mg/dL (7-17); Calcium 7.2 mg/dL (8.4-10.2); Carbon Dioxide 21 mmol/L (22-30); Chloride 107 mmol/L (98-107); Glucose 203 mg/dL (74-99); Non-African American GFR(CKD) >90 (>60 ml/min/1.73 sqM); Sodium 134 mmol/L (137-145); Total Bilirubin 0.3 mg/dL (0.2-1.3); Total Protein 5.6 g/dL (6.3-8.2)
[2021-05-22 05:55] LABS: Allen Test Performed? Yes
[2021-05-22 06:03] LABS: ABG Base Excess -2.5 mmol/L; ABG HCO3 23 mmol/L (21-25); ABG PCO2 43 mmHg (35-45); ABG PH 7.34 (7.35-7.45); ABG PO2 102 mmHg (83-108); ABG TCO2 25 mmol/L (19-24)
--- NOTE | 2021-05-22 06:41 | P.EN ---
Code blue note, patient experienced acute respiratory arrest, suspected due to hyperapnic respiratory failure, patient did not lose pulse, patient intubated and placed on vent, CXR showed severe ARDS, patient required PEEP of 10 to improve her oxygenation , and started on pressors due to hypotension , given IVF fluids with normal saline continue ssupportive care initial admission was for aspiration pneumonia due to hypoglycemia episode. current blood sugar was 177
[2021-05-22] MEDS: MEROPENEM 1 GM in SODIUM CHLORIDE 0.9% 100 ML IVPB SCH ×3 (06:42→21:56)
[2021-05-22 06:50] LABS: Glucose,Whole Blood 239 mg/dL (75-99)
[2021-05-22] MEDS: THIAMINE 100 MG TAB PO SCH ×2 (06:54→17:23)
[2021-05-22] MEDS: INSULIN ASPART (NovoLOG) 100 UNIT/ML VIAL SQ SCH ×4 (06:54→23:53)
--- NOTE | 2021-05-22 08:56 | P.PN ---
Subjective Progress Note Date: 05/21/21 This is a 36-year-old female who was recently admitted with changes in mental status along with significant hypoglycemia and is being closely monitored. Patient continues on 100% BiPAP with continued dyspnea and pulmonary following closely. Patient also found to have bilateral pneumonia possible aspiration and also a fungal urinary tract infection. Patient continues in the ICU for close monitoring and infectious disease is also following. Patient continues on IV antibiotics in the form of meropenem along with fluconazole and vancomycin and will continue. Multiple family members at the bedside. Recommend repeat chest x-ray along with labs in the morning. White blood Count elevated at 19.1. Potassium is 3.4 and magnesium 1.6 and will replace per protocol. 05/21/2021 She is seen in follow-up continues to be in the ICU being closely monitored. Patient was maintained on BiPAP and attempting airvo to allow for oral intake. Only at the bedside with multiple questions and concerns answered to the best of our ability. Patient's mentation is improved and answering questions and responding to commands appropriately. Chest x-ray today shows bilateral diffuse airspace disease with small effusion, stable with no pneumothorax noted. Infectious disease following an patient is continued on IV fluconazole along with meropenem. Blood cultures remain negative. Blood count is mildly elevated at 20.2. Patient is afebrile. Recommend repeat labs and chest x-ray in the a.m. She denies any chest pains or palpitations at this time. Patient tolerating oral intake and recommend strict aspiration precautions of head of the bed elevated 30-45 at all times and supervision with meals. Labs: WBC is 20.2, hemoglobin is 7.9, platelets are 482, sodium is 133, potassium 3.7, BUN 5, creatinine 0.42, calcium 7.0, magnesium 2.3 Review of systems: Constitutional: No reports of fatigue, fever, or chills Cardiovascular: No reports of chest pain or palpitations Respiratory: No reports of worsening shortness of breath or cough GI: No reports of nausea, vomiting, or diarrhea : No reports of dysuria or retention Neurovascular: Reports generalized weakness All medications have been reviewed Active Medications Hydrocodone Bitart/Acetaminophen (Hydrocodone/Apap 5-325mg 1 Each Tab) 1 each PO Q6HR PRN PRN Reason: Pain Last Admin: 05/21/21 08:08 Dose: 1 each Documented by: Amitriptyline HCl (Amitriptyline Hcl 10 Mg Tab) 10 mg PO HS [facility] Last Admin: 05/20/21 22:02 Dose: Not Given Documented by: Cholecalciferol (Cholecalciferol 25 Mcg (1000 Iu) Tablet) 50 mcg PO DAILY [facility] Last Admin: 05/21/21 08:09 Dose: 50 mcg Documented by: Al Hydroxide/Mg Hydroxide 30 ml/ Lidocaine HCl 30 ml/Diphenhydramine HCl 75 mg/Nystatin 3,000,000 unit 0 ml PO TID [facility] Last Admin: 05/21/21 08:39 Dose: 5 ml Documented by: Escitalopram Oxalate (Escitalopram 20 Mg Tab) 20 mg PO DAILY [facility] Last Admin: 05/21/21 08:11 Dose: 20 mg Documented by: Folic Acid (Folic Acid 1 Mg Tab) 1 mg PO DAILY@1200 [facility] Last Admin: 05/21/21 12:28 Dose: 1 mg Documented by: Dextrose/Water (Dextrose 5%-Water Iv Soln) 1,000 mls @ 40 mls/hr IV .Q24H [facility] Last Admin: 05/20/21 09:39 Dose: 40 mls/hr Documented by: Fluconazole/Sodium Chloride (100 mg/ IV Solution) 50 mls @ 50 mls/hr IVPB DAILY [facility] Last Admin: 05/21/21 08:25 Dose: 50 mls/hr Documented by: Vancomycin HCl 1,000 mg/ (Sodium Chloride) 250 mls @ 125 mls/hr IVPB Q8H [facility] Last Admin: 05/21/21 10:04 Dose: 125 mls/hr Documented by: Meropenem 1 gm/ Sodium (Chloride) 100 mls @ 33.3 mls/hr IVPB Q8H [facility]; Protocol Last Admin: 05/21/21 13:20 Dose: 33.3 mls/hr Documented by: Insulin Aspart (Insulin Aspart (Novolog) 100 Unit/Ml Vial) 0 unit SQ [facility]; Protocol Last Admin: 05/21/21 12:29 Dose: 2 unit Documented by: Insulin Detemir (Insulin Detemir (Levemir) 100 Unit/Ml Syr) 20 unit SQ [facility] Last Admin: 05/20/21 22:02 Dose: Not Given Documented by: Lisinopril (Lisinopril 2.5 Mg Tab) 2.5 mg PO DAILY [facility] Last Admin: 05/21/21 08:38 Dose: Not Given Documented by: Loperamide HCl (Loperamide 2 Mg Cap) 2 mg PO QID PRN PRN Reason: Diarrhea Last Admin: 05/19/21 10:56 Dose: 2 mg Documented by: Metoprolol Tartrate (Metoprolol Tartrate 12.5 Mg Tab) 12.5 mg PO BID [facility] Last Admin: 05/21/21 08:38 Dose: Not Given Documented by: Miscellaneous Information (Magnesium Replacement Protocol 1 Each Misc) 1 each MISCELLANE DAILY PRN; Protocol PRN Reason: Per Protocol Miscellaneous Information (Potassium Replacement Protocol 1 Each Misc) 1 each MISCELLANE DAILY PRN; Protocol PRN Reason: Per Protocol Miscellaneous Information (Vancomycin Trough Due 1 Each Misc) 0 each MISCELLANE DIRECTED ONE Stop: 05/22/21 09:01 Montelukast Sodium (Montelukast 10 Mg Tab) 10 mg PO [facility] Last Admin: 05/20/21 22:02 Dose: Not Given Documented by: Multivitamins (Multivitamins, Thera 1 Each Tab) 1 each PO DAILY@1200 [facility] Last Admin: 05/21/21 12:28 Dose: 1 each Documented by: Naloxone HCl (Naloxone 0.4 Mg/Ml 1 Ml Vial) 0.2 mg IV Q2M PRN PRN Reason: Opioid Reversal Nystatin (Nystatin 100,000 Unit/Ml Susp 500,000 Unit/5 Ml Cup) 500,000 unit PO QID [facility] Last Admin: 05/21/21 12:28 Dose: 500,000 unit Documented by: Ondansetron HCl (Ondansetron 4 Mg/2 Ml Vial) 4 mg IVP Q6HR PRN PRN Reason: Nausea And Vomiting Last Admin: 05/20/21 14:17 Dose: 4 mg Documented by: Pantoprazole Sodium (Pantoprazole 40 Mg/10 Ml Vial) 40 mg IVP DAILY [facility] Last Admin: 05/21/21 08:09 Dose: 40 mg Documented by: Pregabalin (Pregabalin 75 Mg Cap) 75 mg PO TID [facility] Last Admin: 05/21/21 08:09 Dose: 75 mg Documented by: Sumatriptan Succinate (Sumatriptan Succinate 50 Mg Tab) 100 mg PO DAILY PRN PRN Reason: Migraine Headache Thiamine HCl (Thiamine 100 Mg Tab) 100 mg PO BID-W/MEALS [facility] Last Admin: 05/21/21 06:46 Dose: Not Given Documented by: Zinc Sulfate (Zinc Sulfate 220 Mg Cap) 220 mg PO DAILY [facility] Last Admin: 05/21/21 08:39 Dose: 220 mg Documented by: Physical Exam: Gen: This is a 36-year-old female who is awake, alert and oriented 3, thin built, cachectic. Temp is 98.1F, pulse is 102, respirations are 13, blood pressure is 87/58, oxygen saturation is 96% on high flow airvo with a flow rate of 55 and an FiO2 of 79 HEENT: Head is atraumatic, normocephalic. Pupils equal, round. Sclerae is anicteric. NECK: Supple. No JVD. No lymphadenopathy. No thyromegaly. LUNGS: Breath sounds diminished with scattered rhonchi noted. No intercostal retractions. HEART: S1, S2 are muffled ABDOMEN: Soft. Bowel sounds are present. No masses. No tenderness. EXTREMITIES: No pedal edema. No calf tenderness. NEUROLOGICAL: Patient is awake, alert and oriented 3, diffusely weak . Assessment: Acute bilateral pneumonia, left more than right with aspiration pneumonia with sepsis, present on admission Change in mental status, acute metabolic encephalopathy, multifactorial Acute hypoglycemia Severe hypokalemia Severe hyponatremia Fungal urinary tract infection Severe protein calorie malnutrition with a body mass index of 20.6 x 5 diabetes mellitus type I, uncontrolled with hypoglycemia Hypoalbuminemia Increased white count Anemia of unknown etiology history of syncope history of diabetes mellitus type 1, insulin-dependent History of peripheral neuropathy History of migraines History of HPV History of MRSA history of tubal ligation Anxiety, depression Gait dysfunction Full code Plan: Recommend to continue with current medications and follow along closely with multiple medical consultations. Infectious disease and pulmonary following closely and patient continues on 100% BiPAP with shortness of breath. Attempting airvo to allow for oral intake and close monitoring. Mother at the bedside and questions and concerns answered to the best of our ability. There was discussion of possible bronchoscopy although patient currently unable to tolerate and if requiring mechanical intubation pulmonary may consider at that time. Patient is continued on IV antibiotics with infectious disease following closely and monitoring closely. Recommend repeat labs and follow-up chest x-ray in the morning. Recommend to keep the bed elevated 30-45 at all times and maintain aspiration precautions. Patient is continued on Merrem and fluconazole and will continue. Blood cultures remain negative. Patient continues with dyspnea and being closely monitored in the ICU with Dr. Fields following closely. Due to multiple complex medical issues prognosis is quite guarded. Objective - Vital Signs Vital signs: Vital Signs Temp 97.4 F L 05/21/21 08:00 Pulse 98 05/21/21 08:00 Resp 18 05/21/21 08:00 BP 99/68 05/21/21 08:00 Pulse Ox 99 05/21/21 08:00 Intake & Output 05/20/21 05/21/21 05/21/21 18:59 06:59 18:59 Intake Total 760 600 100 Output Total 4725 480 45 Balance -3965 120 55 Weight 50.4 kg Intake: IV 760 600 100 Dextrose 5% in Water 1, 240 480 80 000 ml @ 40 mls/hr IV . Q24H [facility] Rx#:[id number] Magnesium Sulfate-D5w Pmx 200 1 gm In Dextrose/Water 1 100ml.bag @ 100 mls/hr IVPB Q1H [facility] Rx#: [id number] NS 20 120 20 Piperacillin-Tazobactam 3 100 .375 gm In Sodium Chloride 0.9% 100 ml @ 25 mls/hr IVPB Q8HR [facility] Rx# :[id number] Potassium Chloride 10 meq 200 In Water For Injection 1 100ml.bag @ 100 mls/hr IVPB Q1HR [facility] Rx#: [id number] Output: Urine 4725 480 45 Uretheral (Orellana) 1350 Other: Voiding Method Indwelling Catheter Indwelling Catheter Indwelling Catheter - Labs CBC & Chem 7: 05/22/21 04:51 05/22/21 04:51 Labs: Abnormal Lab Results - Last 24 Hours (Table) 05/20/21 05/20/21 05/20/21 Range/Units 11:44 17:19 21:09 WBC (3.8-10.6) k/uL RBC (3.80-5.40) m/uL Hgb (11.4-16.0) gm/dL Hct (34.0-46.0) % MCHC (31.0-37.0) g/dL RDW (11.5-15.5) % Plt Count (150-450) k/uL Sodium (137-145) mmol/L BUN (7-17) mg/dL Creatinine (0.52-1.04) mg/dL Glucose (74-99) mg/dL POC Glucose (mg/dL) 131 H 126 H 159 H (75-99) mg/dL Calcium (8.4-10.2) mg/dL 05/20/21 05/21/21 05/21/21 Range/Units 21:24 02:27 02:29 WBC (3.8-10.6) k/uL RBC (3.80-5.40) m/uL Hgb (11.4-16.0) gm/dL Hct (34.0-46.0) % MCHC (31.0-37.0) g/dL RDW (11.5-15.5) % Plt Count (150-450) k/uL Sodium (137-145) mmol/L BUN (7-17) mg/dL Creatinine (0.52-1.04) mg/dL Glucose (74-99) mg/dL POC Glucose (mg/dL) 169 H 495 H 132 H (75-99) mg/dL Calcium (8.4-10.2) mg/dL 05/21/21 05/21/21 05/21/21 Range/Units 05:50 05:50 07:08 WBC 20.2 H (3.8-10.6) k/uL RBC 3.12 L (3.80-5.40) m/uL Hgb 7.9 L (11.4-16.0) gm/dL Hct 26.8 L (34.0-46.0) % MCHC 29.6 L (31.0-37.0) g/dL RDW 16.5 H (11.5-15.5) % Plt Count 482 H (150-450) k/uL Sodium 133 L (137-145) mmol/L BUN 5 L (7-17) mg/dL Creatinine 0.42 L (0.52-1.04) mg/dL Glucose 137 H (74-99) mg/dL POC Glucose (mg/dL) 134 H (75-99) mg/dL Calcium 7.0 L (8.4-10.2) mg/dL Microbiology - Last 24 Hours (Table) 05/17/21 16:53 Blood Culture - Preliminary Blood No Growth after 72 hours 05/17/21 16:54 Blood Culture - Preliminary Blood No Growth after 72 hours
[2021-05-22] MEDS ORDERED: VANCOMYCIN TROUGH DUE 1 EACH MISC MISCELLANE ONE (09:00)
--- NOTE | 2021-05-22 09:07 | P.PN ---
Subjective Progress Note Date: 05/22/21 This is a 36-year-old old female, seen in the emergency room, room 10. The patient was just discharged out of the hospital yesterday, May 16. The patient apparently returned to the emergency room, with a low blood sugar. She was brought in by EMS. She apparently has no memory of why she was in the ospital. She apparently was hungry when she came into the ER. She complained of back pain. Her blood glucose on arrival was 36. The patient was in the hospital recently for a left-sided pneumonia. The patient also has a history of diabetes with diabetic ketoacidosis. The patient is currently on O2 at 2 L. She's getting D5 0.9 at 75 mL an hour. She was given Augmentin, but we discontinued it in favor of Zosyn. The patient has a history of diabetes, diabetic neuropathy, chronic low back pain, migraine cephalgia, chronic constipation, and prior MRSA infection. White count 21.9, hemoglobin 8.8, hematocrit 28.7, and platelet count 474,000. Sodium 129, potassium 4.4, chlorides 102, CO2 24, anion gap 3, BUN 7, with a creatinine of 0.29. Albumin is 2. Urine is light yellow in color, and cloudy, leukocyte esterase being small positive, 9 WBCs, and rare bacteria. Drug screen is negative. Testing for ling virus was negative. Chest x-ray shows bilateral pneumonia, with dense consolidation within the left lung, and much less infiltrate in the right base. Progress note dated 05/18/2021. This is a 36-year-old female, who was seen in the emergency department in consultation yesterday, and room 10. The patient was recently discharged from the hospital on May 16. She was brought back in for mental status changes, and a low blood sugar. Apparently her blood glucose was only 36. Her prior admission was for diabetic ketoacidosis, and left-sided ammonia. Currently, she is back to her normal self. The patient is on 4 L nasal O2. She's not complaining of any respiratory distress or difficulty. She has a dry nonproductive cough. She was placed on Zosyn yesterday by our team. She was seen by infectious diseases. She has a history of diabetes, diabetic neuropathy , chronic low back pain, migraine cephalgia, chronic constipation, and prior MRSA infection. Currently, white count 19.3, he will been 7.2, hematocrit 24, and platelet count 449,000. Sodium 133, potassium 3.8, chlorides 100, CO2 21, anion gap 12, UN 7, and creatinine 0.4. Pro-calcitonin level is 0.15. C- reactive protein is 5.7. On today's evaluation of 05/19/2021, the patient is doing well. The patient is awake and alert. No signs of any significant respiratory distress. The patient was restarted back on IV Zosyn. The chest x-ray showed extensive consolidation of the left lung and the CAT scan of the chest also confirmed the same findings. The patient was Hospital as because of hypoglycemia. The patient altered mentation and she recovered fully. She is currently on Levemir 20 units along with sliding scale coverage. She is also on D5 water running at 100 mL an hour. Antibiotic coverage with IV Zosyn. Blood work shows a white cell count 12.4 with hemoglobin 8.5, BUN is at 5 with a creatinine of 0.4 and his sodium is at 134 with a potassium level of 3.3. The COVID 19 test that was negative. Urine drug screen was negative. Pro-calcitonin level has been consistently low. A focused on level was at 0.15. The patient currently is on oxygen 4 L per minute nasal cannula. She is afebrile. She is medically and hemodynamically stable at this point in time. She has poor dental conditions and poor oral hygiene. She has also developed some ulceration over the tip of the tongue probably related to candidal infection. On 2021, the patient's condition decompensated and the patient got transferred to the intensive care unit for respiratory support. Overnight, the patient became progressively more hypoxemic and short of breath. She was given a dose of Lasix 40 mg IV push without any much improvement. She was becoming also more lethargic and short of breath. She got transferred to the ICU. Currently she is on a BiPAP at a pressure of 12/6 cm of water with an FiO2 of 100%. Her Pulse Ox Is 99%. A Chest X-Ray Showed Extensive Consolidation of the Left Lung. There Are Some Air Bronchograms on the Left. At the Same Time There Are Some Air Pockets in the Left Hiram Which Makes Me Concerned about an Underlying Cavitation/Abscess Formation. At the Same Time, There Is Progression of the Airspace Disease and There Is Development of New Patchy Opacities in the Right Midlung and the Right Lower Lung. Note That the Patient Was Covered with IV Zosyn for Any Potential Aspiration Pneumonia.Pro-Calcitonin Level Was at 0.15. Currently She Is on BiPAP Which Is Quite Comfortable. She instructed BiPAP dependent. The patient easily decompensates and desaturates 1 she's taken off the BiPAP. Note that she also had extensive oropharyngeal candidiasis and ulceration of the tongue for which she was given Diflucan. I added cold solution on her yesterday. She is unable to do adequate oral care as the patient is BiPAP dependent. In terms of IV fluids, the patient is on D5 water running at 40 mL an hour. This was started due to concerns of underlying episodes of hypoglycemia. She is a very brittle diabetic. Her blood sugars are all over the place. She is currently on Levemir insulin 20 units a day along with a sliding scale coverage. The Levemir insulin was given today. She is not eating much at this point in time as the patient is BiPAP dependent. Other blood work, her white cell count of 19.0 which is higher compared to yesterday. Hemoglobin is at 7.8. The blood gas while on 100% BiPAP initially showed a pH of 7.37 with a pCO2 of 46 and pO2 of 50. Current saturations up to 90%. Sodium is at 130 with a potassium level of 3.4 and a serum bicarb of 23 with a mean of 4 and a creatinine of 0.4. Her albumin is down to 2.0 with a total protein of 5.7. Cultures for now are negative in terms of blood culture. Note that the patient had MRSA and E. coli and strep in her urine back in 05/09/2021. She has also has had a previous MRSA wound infection involving the scalp. She is arousable. She is a bit lethargic. No agitation. On 05/21/2021 patient seen in follow-up in the intensive care unit, she currently remains on BiPAP support as of 12 and 600%, and her pulse ox is 99- 100%, she is awake and alert, oriented 3, she is extremely thirsty and hungry, does not appear to be in any acute distress, no complaints of worsening dyspnea, she seems to be breathing comfortably, nursing staff reports that patient was able to come off the BiPAP support to take sips of water, oral care, and pills, and patient tolerates being off BiPAP support better although she does desaturate. She is afebrile, hemodynamically she is stable, she remains on a combination of meropenem and vancomycin and Diflucan which were modified yesterday. Blood cultures have been negative thus far, she's been afebrile, no hemoptysis, no complaints of chest discomfort. Produced 5.2 L in urine output in response to Lasix, and she is in -3.8 L net fluid balance over the last 24 hours, today's chest x-ray has been reviewed, showing stable diffuse bilateral airspace disease. Absent been reviewed, white blood cell count is 20.2, hemoglobin is 7.9, platelet count is 482, serum sodium is 133, potassium 3.7, chloride is 104, CO2 is 24, B1 is 5 creatinine 0.42. Her last pro-calcitonin level from 05/18/2021 was 0.15. On 05/22/2021 patient seen in follow-up in intensive care unit, last night during an episode of getting cleaned up after having a bowel movement patient complained of not feeling well, she certainly became unresponsive, she started desaturating, her respirations became very agonal and rapid response team was called for ERIC BLUE. There was no seizure activity noted prior to the event, patient was not desaturating just prior to that, no arrhythmias were noted other than bradycardia after she had started desaturating. During the code patient did not lose her pulse, her pulse ox was down to 66% on high flow Airvo, she was emergently intubated and placed on mechanical ventilator, chest x-ray shows severe ARDS, she was hypotensive and received IV fluids and received norepinephrine infusion which is currently still infusing at 0.06 mics per kilo per minute, she was not hypoglycemic and her blood sugar at that time was 177, she had D5W infusing at 40, and she was starting to take in some oral intake. This morning she is sedated, intubated on assist control mode of ventilation with a rate of 16, tidal, 350, FiO2 is currently at 50% and PEEP of 8, this morning's blood gas shows pO2 of 102, pCO2 of 43, pH is 7.34, this was done on 70% FiO2 which had since been dropped down to 50%, this morning's chest x-ray was reviewed showing moderately severe pulmonary air space edema, without significant change compared to yesterday. The patient is in sinus mechanism, blood pressure is 112/72, currently on meropenem, vancomycin and Diflucan for aspiration pneumonia, blood cultures have been negative, patient has not been able to produce a sputum culture for us. Her labs reveal white blood cell count of 26.8 which is increased since yesterday from 20.2, hemoglobin of 7.9, platelet count of 530, sodium is 134, potassium is 4.0, chloride is 107, CO2 is 21, BUN is 7 creatinine 0.52, her glucose this morning is 203, LFTs were within normal limits, her last pro-calcitonin level from a few days ago was 0.15. Yesterday patient was given a liter bolus after she became intubated, she is producing urine in the order of 30-75 ML per hour, her Lasix is on hold. Objective - Vital Signs Vital signs: Vital Signs Temp 97.3 F L 05/22/21 04:00 Pulse 101 H 05/22/21 07:30 Resp 16 05/22/21 07:30 BP 108/69 05/22/21 07:30 Pulse Ox 100 05/22/21 07:30 Intake & Output 05/21/21 05/22/21 05/22/21 18:59 06:59 18:59 Intake Total 1190 2667.127 90 Output Total 260 550 75 Balance 930 2117.127 15 Weight 50.4 kg 53.4 kg Intake: IV 690 2490 90 Dextrose 5% in Water 1, 480 440 40 000 ml @ 40 mls/hr IV . Q24H [facility] Rx#:[id number] NS 210 1050 50 Sodium Chloride 0.9% 1, 1000 000 ml @ 999 mls/hr IV . Q1H1M ONE Rx#:[id number] Intake, IV Titration 200 77.127 Amount Norepinephrine 4 mg In 39.781 Sodium Chloride 0.9% 250 ml @ 0.05 MCG/KG/MIN 9. 601 mls/hr IV .Q24H [facility] Rx#:[id number] Potassium Chloride 10 meq 200 In Water For Injection 1 100ml.bag @ 100 mls/hr IVPB Q1H [facility] Rx#: [id number] propofoL 1,000 mg In 37.346 Empty Bag 1 bag @ Titrate IV .Q0M [facility] Rx#: [id number] Oral 300 100 Output: Urine 260 550 75 Other: Voiding Method Indwelling Catheter Indwelling Catheter - Exam GENERAL EXAM: Sedated and intubated 36-year-old frail looking white female, on AC 16, TV 350, Fio2 50%, and PEEP of 8, comfortable in no apparent distress. HEAD: Normocephalic/atraumatic. EYES: Normal reaction of pupils, equal size. Conjunctiva pink, sclera white. NOSE: Clear with pink turbinates. MOUTH: She has ulcerations of her oral cavity THROAT: No erythema or exudates. NECK: No masses, no JVD, no thyroid enlargement, no adenopathy. CHEST: No chest wall deformity. Symmetrical expansion. LUNGS: diminished air entry with crackles, no wheeze, no rhonchi or dullness. CVS: Regular rate and rhythm, normal S1 and S2, no gallops, no murmurs, no rubs ABDOMEN: Soft, nontender. No hepatosplenomegaly, normal bowel sounds, no guarding or rigidity. EXTREMITIES: No clubbing, no edema, no cyanosis, 2+ pulses and upper and lower extremities. MUSCULOSKELETAL: Muscle strength and tone normal. SPINE: No scoliosis or deformity SKIN: No rashes CENTRAL NERVOUS SYSTEM: Intubated and sedated. No focal deficits, tone is normal in all 4 extremities. - Labs CBC & Chem 7: 05/22/21 04:51 05/22/21 04:51 Labs: Abnormal Lab Results - Last 24 Hours (Table) 05/21/21 05/21/21 05/21/21 Range/Units 12:20 16:45 22:34 WBC (3.8-10.6) k/uL RBC (3.80-5.40) m/uL Hgb (11.4-16.0) gm/dL Hct (34.0-46.0) % MCH (25.0-35.0) pg MCHC (31.0-37.0) g/dL RDW (11.5-15.5) % Plt Count (150-450) k/uL Neutrophils # (1.3-7.7) k/uL ABG pH (7.35-7.45) ABG pCO2 (35-45) mmHg ABG HCO3 (21-25) mmol/L ABG Total CO2 (19-24) mmol/L ABG O2 Saturation (94-97) % Sodium (137-145) mmol/L Carbon Dioxide (22-30) mmol/L Glucose (74-99) mg/dL POC Glucose (mg/dL) 184 H 189 H 202 H (75-99) mg/dL Calcium (8.4-10.2) mg/dL Total Protein (6.3-8.2) g/dL Albumin (3.5-5.0) g/dL 05/22/21 05/22/21 05/22/21 Range/Units 02:11 02:52 04:51 WBC 26.8 H (3.8-10.6) k/uL RBC 3.22 L (3.80-5.40) m/uL Hgb 7.9 L (11.4-16.0) gm/dL Hct 28.4 L (34.0-46.0) % MCH 24.7 L (25.0-35.0) pg MCHC 28.0 L (31.0-37.0) g/dL RDW 16.5 H (11.5-15.5) % Plt Count 530 H (150-450) k/uL Neutrophils # 24.9 H (1.3-7.7) k/uL ABG pH 7.26 L (7.35-7.45) ABG pCO2 58 H (35-45) mmHg ABG HCO3 26 H (21-25) mmol/L ABG Total CO2 28 H (19-24) mmol/L ABG O2 Saturation 97.2 H (94-97) % Sodium (137-145) mmol/L Carbon Dioxide (22-30) mmol/L Glucose (74-99) mg/dL POC Glucose (mg/dL) 177 H (75-99) mg/dL Calcium (8.4-10.2) mg/dL Total Protein (6.3-8.2) g/dL Albumin (3.5-5.0) g/dL 05/22/21 05/22/21 05/22/21 Range/Units 04:51 05:53 06:48 WBC (3.8-10.6) k/uL RBC (3.80-5.40) m/uL Hgb (11.4-16.0) gm/dL Hct (34.0-46.0) % MCH (25.0-35.0) pg MCHC (31.0-37.0) g/dL RDW (11.5-15.5) % Plt Count (150-450) k/uL Neutrophils # (1.3-7.7) k/uL ABG pH 7.34 L (7.35-7.45) ABG pCO2 (35-45) mmHg ABG HCO3 (21-25) mmol/L ABG Total CO2 25 H (19-24) mmol/L ABG O2 Saturation 98.0 H (94-97) % Sodium 134 L (137-145) mmol/L Carbon Dioxide 21 L (22-30) mmol/L Glucose 203 H (74-99) mg/dL POC Glucose (mg/dL) 239 H (75-99) mg/dL Calcium 7.2 L (8.4-10.2) mg/dL Total Protein 5.6 L (6.3-8.2) g/dL Albumin 1.9 L (3.5-5.0) g/dL Microbiology - Last 24 Hours (Table) 05/17/21 16:53 Blood Culture - Preliminary Blood No Growth after 96 hours 05/17/21 16:54 Blood Culture - Preliminary Blood No Growth after 96 hours Assessment and Plan Plan: Assessment: #1. Acute hypoxic respiratory failure related to worsening and progression of pneumonia, and chest x-ray showing patchy consolidation involving the right midlung, right upper lobe and right lower lobe in addition to extensive consolidation of the left lung with possibly some cavitation. Patient is currently covered with meropenem and vancomycin, her antibiotics have been modified yesterday, initially covered with Zosyn, patient was doing well on rvo on 05/21/2021, was clinically improving, but suffered acute respiratory arrest on 05/21/2021 and was intubated #2. Altered mental status secondary to hypoglycemia. Patient had recovered, and she was back to baseline neurologically #3. History of diabetes, and recent episode of diabetic ketoacidosis, recovered. Levemir insulin has been discontinued and patient is currently covered with sliding scale NovoLog, her last episode of hypoglycemia was on 05/19/2021 with a blood sugar of 45. No recurrence of hypoglycemia since #4. History of syncopal episodes related to hypoglycemia #5. History of migraine cephalgia #6. History of diabetic neuropathy #7. Chronic constipation #8. Chronic low back pain #9. Tongue and oral pharyngeal candidiasis, with ulcerations #10. Previous history of MRSA infection in the laceration of the scalp Plan: Patient suffered acute respiratory arrest on 05/21/2021 and was intubated Todays labs, chest x-ray and blood gases reviewed FiO2 has been dropped down to 50%, and a PEEP is currently down to 8 Keep patient intubated, and sedated Continue current antibiotic coverage med meropenem, vancomycin and Diflucan Discussed with the patient's mother possibility of bronchoscopy with bronchoalveolar lavage today and the mother has given us consent to proceed Hold diuretics, continue D5W at 40, Continue breathing treatments Continue close monitoring of blood sugars We'll initiate tube feedings later on today, consultation to RD for recommend ations Overall prognosis is guarded I performed a history & physical examination of the patient and discussed their management with my nurse practitioner, Dania Negron. I reviewed the nurse practitioner's note and agree with the documented findings and plan of care. Lung sounds are positive for dim breath sounds throughout the lung abbott. The findings and the impression was discussed with the patient. I attest to the documentation by the nurse practitioner. Time with Patient: Greater than 30
[2021-05-22] MEDS: CHLORHEXIDINE GLUCONATE 15 ML CUP MUCOUS MEM SCH ×2 (09:15→19:29)
[2021-05-22] MEDS ORDERED: CISATRACURIUM 2 MG/ML 5 ML VIAL IV ONE (09:26)
--- NOTE | 2021-05-22 09:41 | P.PCN ---
Date of Procedure: 05/22/21 Preoperative Diagnosis: Bilateral pneumonia Postoperative Diagnosis: bilateral pneumonia Procedure(s) Performed: Bronchoscopy, airways evaluation and inspection, BAL lavage of the right middle lobe Anesthesia: ERICA Surgeon: Benigno Fields Pathology: none sent Condition: critical Disposition: ICU Operative Findings: This procedure was done in the intensive care unit. The patient was already intubated on mechanical ventilator. The patient was already sedated. I give the patient a dose of Nimbex 10 mg IV push. The patient was placed on 100% FiO2. Following that, an adapter was essentially orotracheal tube which gave us access to the patient's airways. The flexible bronchoscope was used to complete this procedure. The flexible bronchoscope was easily placed through the orotracheal tube and was advanced into the distal trachea. Trachea was seen and it was normal and then the lucas appears normal then the scope advanced to the left main and RODRIGO LB1-LB3 were seen and no endobronchial lesions were seen then the scope advanced to the lingula and the LB4 and LB5 were seen and no endobro nchial lesions were seen the scope retracted and advanced to the left lower lobes LB6 to LB12 were seen one by one and no endobronchial lesions, then the scope was retracted back to the lucas and advanced to the Right main and RUL RB1 and RB2 and RB3 were seen one by one and no endobronchial lesions were seen the scope then retracted and advanced to the BI and RML RB4 and RB5 were seen and no endobronchial lesions were seen then it was retracted and advanced to the RLL RB6 to RB12 were seen one by one and no endobronchial lesions. There was no endobronchial abnormalities. No foreign bodies no secretions at all. The bronchioloalveolar lavage of the right middle lobe was done. A total of 80 mL of fluid was infused and 25 mL was aspirated and acid was cloudy typical of a bronchioloalveolar lavage. No complications encountered. Bronchoscope was removed. The samples will be sent for microbial cultures and analysis. In summary, no acute abnormalities identified in this bronchoscopy.
[2021-05-22] MEDS: PANTOPRAZOLE 40 MG/10 ML VIAL IVP SCH (09:45)
[2021-05-22] MEDS ORDERED: FUROSEMIDE 10 MG/ML 2 ML VIAL IV ONE (09:47)
[2021-05-22] MEDS: FLUCONAZOLE IN NACL,ISO-OSM 100 MG in SALINE 1 50ML.BAG IVPB SCH (10:07)
[2021-05-22] MEDS: MAG HYDROX/AL HYDROX/SIMETH 30 ML, LIDOCAINE VISCOUS 30 ML, diphenhydrAMINE ELIXIR 75 M... PO SCH ×12 (10:22→19:29)
[2021-05-22] MEDS: NYSTATIN 100,000 UNIT/ML SUSP 500,000 UNIT/5 ML CUP PO SCH ×4 (10:22→21:55)
[2021-05-22] MEDS: CHOLECALCIFEROL 25 MCG (1000 IU) TABLET PO SCH (10:31)
[2021-05-22] MEDS: ESCITALOPRAM 20 MG TAB PO SCH (10:32)
[2021-05-22] MEDS: PREGABALIN 75 MG CAP PO SCH ×3 (10:32→21:56)
[2021-05-22] MEDS: FOLIC ACID 1 MG TAB PO SCH (10:34)
[2021-05-22] MEDS: ZINC SULFATE 220 MG CAP PO SCH (10:38)
[2021-05-22 11:56] LABS: Glucose,Whole Blood 214 mg/dL (75-99)
--- NOTE | 2021-05-22 14:22 | IR ---
PICC LINE PLACEMENT: HISTORY: Infection requiring long-term antibiotic therapy PROCEDURE: Ultrasound guidance of PICC line placement. COMPLICATIONS: None ANESTHESIA: 1. 1% Lidocaine locally. FINDINGS/TECHNIQUE: The procedure was explained to the patient. The risks, complications, benefits and alternatives were discussed and any questions were answered. Informed consent was obtained. The patient was placed supine on the fluoroscopic table and prepped and draped in the usual sterile fash ion. Utilizing a 21 gauge needle and sonographic guidance, access in the right basilic vein was ach ieved and there is placement of a 0.018 guidewire. The vein is patent. A 5-F. sheath was placed ove r the guidewire. The guidewire and dilator were removed and a 5-F. Double lumen PICC line was placed through the sheath with the chest x-ray confirming the tip at the level of the SVC. The sheath was removed, the catheter was flushed and sutured into position. The patient was stable throughout the p rocedure and remained stable upon discharge from the Department of Radiology. The vein puncture was patent under ultrasound. A alicia scale image was obtained to document patency of the vein punctured. All elements of the maximal barrier technique were utilized. IMPRESSION: 1. Successful PICC line placement under ultrasound performed bedside within the ICU.
[2021-05-22] MEDS: MULTIVITAMINS, THERA 1 EACH TAB PO SCH (17:22)
[2021-05-22 17:30] LABS: Glucose,Whole Blood 117 mg/dL (75-99)
--- NOTE | 2021-05-22 18:31 | PN ---
PROGRESS NOTE DATE OF SERVICE: 05/22/2021 REASON FOR FOLLOWUP: Pneumonia. INTERVAL HISTORY: The patient did have respiratory arrest ended up getting intubated. The patient is currently on a pressor. FiO2 is currently at 50%. The patient has been bronched. No vomiting, diarrhea or other changes reported by the nursing staff. PHYSICAL EXAMINATION: Blood pressure 93/63 with a pulse of 103, temperature 97.7. She is 100% on 50% FiO2. General description is a middle-aged female intubated on the vent. Respiratory system: Unlabored breathing, decreased breath sounds at the base. No wheeze. Heart S1, S2. Regular rate and rhythm. Abdomen soft, no tenderness. LABS: Hemoglobin is 7.9, white count 6.8, creatinine 0.52. DIAGNOSTIC IMPRESSION AND PLAN: Patient with acute respiratory failure, multifactorial, in this patient who did have a component of pneumonia, question of aspiration etiology. Patient is broadly covered with meropenem and vancomycin; to continue. Antibiotic will be adjusted further on the basis of the culture report. Continue supportive care. Mother at the bedside. Questions were answered. MMODL / IJN: [id number] /
[2021-05-22] MEDS: INSULIN DETEMIR (LEVEMIR) 100 UNIT/ML SYR SQ SCH (19:31)
[2021-05-22] MEDS: AMITRIPTYLINE HCL 10 MG TAB PO SCH (21:56)
[2021-05-22] MEDS: MONTELUKAST 10 MG TAB PO SCH (21:56)
[2021-05-22] MEDS ORDERED: ACETAMINOPHEN TAB 325 MG TAB PO PRN (22:11)
[2021-05-22 23:53] LABS: Glucose,Whole Blood 154 mg/dL (75-99)
--- NOTE | 2021-05-23 04:27 | P.PN ---
Subjective Progress Note Date: 05/22/21 This is a 36-year-old female who was recently admitted with changes in mental status along with significant hypoglycemia and is being closely monitored. Patient continues on 100% BiPAP with continued dyspnea and pulmonary following closely. Patient also found to have bilateral pneumonia possible aspiration and also a fungal urinary tract infection. Patient continues in the ICU for close monitoring and infectious disease is also following. Patient continues on IV antibiotics in the form of meropenem along with fluconazole and vancomycin and will continue. Multiple family members at the bedside. Recommend repeat chest x-ray along with labs in the morning. White blood Count elevated at 19.1. Potassium is 3.4 and magnesium 1.6 and will replace per protocol. 05/21/2021 She is seen in follow-up continues to be in the ICU being closely monitored. Patient was maintained on BiPAP and attempting airvo to allow for oral intake. Only at the bedside with multiple questions and concerns answered to the best of our ability. Patient's mentation is improved and answering questions and responding to commands appropriately. Chest x-ray today shows bilateral diffuse airspace disease with small effusion, stable with no pneumothorax noted. Infectious disease following an patient is continued on IV fluconazole along with meropenem. Blood cultures remain negative. Blood count is mildly elevated at 20.2. Patient is afebrile. Recommend repeat labs and chest x-ray in the a.m. She denies any chest pains or palpitations at this time. Patient tolerating oral intake and recommend strict aspiration precautions of head of the bed elevated 30-45 at all times and supervision with meals. 05/22/2021 Patient is seen in follow up and being closely monitored in the ICU with multiple medical consultations following. Patient was an A team this morning for acute respiratory arrest that was witnessed by nursing staff at the bedside and was changing the patient after a bowel movement and became apneic and code blue was initiated. Patient did not lose pulse but was intubated and placed on sedation. Chest xray showed moderately severe pulmonary edema without change compared to yesterday. Patient was given a dose of lasix. Patient is on some pressor support as well. Pulmonary following and patient underwent bronchoscopy with fluid analysis sent and pending. Patient is continued on IV merrem and vancomycin with ID following closely. Await finalized cultures. WBC elevated as well at 26.8. Labs: WBC is 26.8, hemoglobin is 7.9, platelets are 530, sodium is 134, potassium 4.0, BUN 7, creatinine 0.52, calcium 7.2 Review of systems: unable to assess as patient was intubated and sedated All medications have been reviewed Active Medications Amitriptyline HCl (Amitriptyline Hcl 10 Mg Tab) 10 mg PO HS [facility] Last Admin: 05/21/21 22:38 Dose: Not Given Documented by: Chlorhexidine Gluconate (Chlorhexidine Gluconate 15 Ml Cup) 15 ml MUCOUS MEM BID [facility] Last Admin: 05/22/21 09:15 Dose: 15 ml Documented by: Cholecalciferol (Cholecalciferol 25 Mcg (1000 Iu) Tablet) 50 mcg PO DAILY [facility] Last Admin: 05/22/21 10:31 Dose: 50 mcg Documented by: Al Hydroxide/Mg Hydroxide 30 ml/ Lidocaine HCl 30 ml/Diphenhydramine HCl 75 mg/Nystatin 3,000,000 unit 0 ml PO TID [facility] Last Admin: 05/22/21 10:22 Dose: 5 ml Documented by: Enoxaparin Sodium (Enoxaparin 40 Mg/0.4 Ml Syringe) 40 mg SQ DAILY [facility] Escitalopram Oxalate (Escitalopram 20 Mg Tab) 20 mg PO DAILY [facility] Last Admin: 05/22/21 10:32 Dose: 20 mg Documented by: Folic Acid (Folic Acid 1 Mg Tab) 1 mg PO DAILY@1200 [facility] Last Admin: 05/22/21 10:34 Dose: 1 mg Documented by: Fluconazole/Sodium Chloride (100 mg/ IV Solution) 50 mls @ 50 mls/hr IVPB DAILY [facility] Last Admin: 05/22/21 10:07 Dose: 50 mls/hr Documented by: Meropenem 1 gm/ Sodium (Chloride) 100 mls @ 33.3 mls/hr IVPB Q8H [facility]; Protocol Last Admin: 05/22/21 12:03 Dose: 33.3 mls/hr Documented by: Propofol 1,000 mg/ IV Solution 100 mls @ 0 mls/hr IV .Q0M [facility]; Protocol Last Admin: 05/22/21 06:53 Dose: 30 mcg/kg/min, 9.612 mls/hr Documented by: Norepinephrine Bitartrate 4 mg (/ Sodium Chloride) 254 mls @ 9.601 mls/hr IV .Q24H [facility]; Protocol Last Titration: 05/22/21 04:56 Dose: 0.06 mcg/kg/min, 11.521 mls/hr Documented by: Vancomycin HCl 1,000 mg/ (Sodium Chloride) 250 mls @ 125 mls/hr IVPB Q12H [facility] Last Admin: 05/22/21 15:32 Dose: 125 mls/hr Documented by: Insulin Aspart (Insulin Aspart (Novolog) 100 Unit/Ml Vial) 0 unit SQ Q6H [facility]; Protocol Insulin Detemir (Insulin Detemir (Levemir) 100 Unit/Ml Syr) 20 unit SQ [facility] Last Admin: 05/21/21 22:18 Dose: Not Given Documented by: Loperamide HCl (Loperamide 2 Mg Cap) 2 mg PO QID PRN PRN Reason: Diarrhea Last Admin: 05/21/21 17:48 Dose: 2 mg Documented by: Miscellaneous Information (Magnesium Replacement Protocol 1 Each Misc) 1 each MISCELLANE DAILY PRN; Protocol PRN Reason: Per Protocol Miscellaneous Information (Potassium Replacement Protocol 1 Each Misc) 1 each MISCELLANE DAILY PRN; Protocol PRN Reason: Per Protocol Montelukast Sodium (Montelukast 10 Mg Tab) 10 mg PO [facility] Last Admin: 05/21/21 22:38 Dose: Not Given Documented by: Morphine Sulfate (Morphine Sulfate 2 Mg/Ml Syringe) 2 mg IVP Q4HR PRN PRN Reason: Pain/Discomfort Multivitamins (Multivitamins, Thera 1 Each Tab) 1 each PO DAILY@1200 [facility] Last Admin: 05/21/21 12:28 Dose: 1 each Documented by: Nystatin (Nystatin 100,000 Unit/Ml Susp 500,000 Unit/5 Ml Cup) 500,000 unit PO QID [facility] Last Admin: 05/22/21 12:01 Dose: 500,000 unit Documented by: Pantoprazole Sodium (Pantoprazole 40 Mg/10 Ml Vial) 40 mg IVP DAILY [facility] Last Admin: 05/22/21 09:45 Dose: 40 mg Documented by: Pregabalin (Pregabalin 75 Mg Cap) 75 mg PO TID [facility] Last Admin: 05/22/21 10:32 Dose: 75 mg Documented by: Sumatriptan Succinate (Sumatriptan Succinate 50 Mg Tab) 100 mg PO DAILY PRN PRN Reason: Migraine Headache Thiamine HCl (Thiamine 100 Mg Tab) 100 mg PO BID-W/MEALS [facility] Last Admin: 05/22/21 06:54 Dose: 100 mg Documented by: Zinc Sulfate (Zinc Sulfate 220 Mg Cap) 220 mg PO DAILY [facility] Last Admin: 05/22/21 10:38 Dose: 220 mg Documented by: Physical Exam: Gen: This is a 36-year-old female who is recently intubated and sedated this morning, thin built, cachectic. Temp is 97.7F, pulse is 102, respirations are 19, blood pressure is 99/64, oxygen saturation is 97% on mechanical vent with an FiO2 of 45% HEENT: Head is atraumatic, normocephalic. Pupils equal, round. Sclerae is anicteric. NECK: Supple. No JVD. No lymphadenopathy. No thyromegaly. LUNGS: Breath sounds diminished with scattered rhonchi and crackles noted. No intercostal retractions. HEART: S1, S2 are muffled ABDOMEN: Soft. Bowel sounds are present. No masses. No tenderness. EXTREMITIES: No pedal edema. No calf tenderness. NEUROLOGICAL: Patient is sedated and intubated . Assessment: Acute bilateral pneumonia, left more than right with aspiration pneumonia with sepsis, present on admission acute respiratory arrest requiring mechanical ventilation Change in mental status, acute metabolic encephalopathy, multifactorial Acute hypoglycemia Severe hypokalemia Severe hyponatremia Fungal urinary tract infection Severe protein calorie malnutrition with a body mass index of 22.2 diabetes mellitus type I, uncontrolled with hypoglycemia Hypoalbuminemia Increased white count Anemia of unknown etiology history of syncope history of diabetes mellitus type 1, insulin-dependent History of peripheral neuropathy History of migraines History of HPV History of MRSA history of tubal ligation Anxiety, depression Gait dysfunction Full code Plan: Recommend to continue with current medications and follow along closely with multiple medical consultations. Infectious disease and pulmonary following closely and patient was intubated this morning after acute respiratory arrest. Patient underwent bronchoscopy with pulmonary today and fluid sent for analysis. Mother at the bedside and questions and concerns answered to the best of our ability. Patient is continued on IV antibiotics in the form of meropenem and vancomycin and will continue with infectious disease following closely and monitoring closely. Awaiting finalized cultures. Recommend repeat labs and follow-up chest x-ray in the morning. Recommend to keep the bed elevated 30-45 at all times and maintain aspiration precautions. Blood cultures remain negative. REcommend to continue to monitor blood sugars closely. Dietitian consulted for nutrition replacement. Due to multiple complex medical issues prog nosis is quite guarded. Objective - Vital Signs Vital signs: Vital Signs Temp 97.3 F L 05/22/21 04:00 Pulse 101 H 05/22/21 07:30 Resp 16 05/22/21 07:30 BP 108/69 05/22/21 07:30 Pulse Ox 100 05/22/21 07:30 Intake & Output 05/21/21 05/22/21 05/22/21 18:59 06:59 18:59 Intake Total 1190 2667.127 90 Output Total 260 550 75 Balance 930 2117.127 15 Weight 50.4 kg 53.4 kg Intake: IV 690 2490 90 Dextrose 5% in Water 1, 480 440 40 000 ml @ 40 mls/hr IV . Q24H [facility] Rx#:[id number] NS 210 1050 50 Sodium Chloride 0.9% 1, 1000 000 ml @ 999 mls/hr IV . Q1H1M [facility] Rx#:[id number] Intake, IV Titration 200 77.127 Amount Norepinephrine 4 mg In 39.781 Sodium Chloride 0.9% 250 ml @ 0.05 MCG/KG/MIN 9. 601 mls/hr IV .Q24H [facility] Rx#:[id number] Potassium Chloride 10 meq 200 In Water For Injection 1 100ml.bag @ 100 mls/hr IVPB Q1H [facility] Rx#: [id number] propofoL 1,000 mg In 37.346 Empty Bag 1 bag @ Titrate IV .Q0M [facility] Rx#: [id number] Oral 300 100 Output: Urine 260 550 75 Other: Voiding Method Indwelling Catheter Indwelling Catheter - Labs CBC & Chem 7: 05/22/21 04:51 05/22/21 04:51 Labs: Abnormal Lab Results - Last 24 Hours (Table) 05/21/21 05/21/21 05/21/21 Range/Units 12:20 16:45 22:34 WBC (3.8-10.6) k/uL RBC (3.80-5.40) m/uL Hgb (11.4-16.0) gm/dL Hct (34.0-46.0) % MCH (25.0-35.0) pg MCHC (31.0-37.0) g/dL RDW (11.5-15.5) % Plt Count (150-450) k/uL Neutrophils # (1.3-7.7) k/uL ABG pH (7.35-7.45) ABG pCO2 (35-45) mmHg ABG HCO3 (21-25) mmol/L ABG Total CO2 (19-24) mmol/L ABG O2 Saturation (94-97) % Sodium (137-145) mmol/L Carbon Dioxide (22-30) mmol/L Glucose (74-99) mg/dL POC Glucose (mg/dL) 184 H 189 H 202 H (75-99) mg/dL Calcium (8.4-10.2) mg/dL Total Protein (6.3-8.2) g/dL Albumin (3.5-5.0) g/dL 05/22/21 05/22/21 05/22/21 Range/Units 02:11 02:52 04:51 WBC 26.8 H (3.8-10.6) k/uL RBC 3.22 L (3.80-5.40) m/uL Hgb 7.9 L (11.4-16.0) gm/dL Hct 28.4 L (34.0-46.0) % MCH 24.7 L (25.0-35.0) pg MCHC 28.0 L (31.0-37.0) g/dL RDW 16.5 H (11.5-15.5) % Plt Count 530 H (150-450) k/uL Neutrophils # 24.9 H (1.3-7.7) k/uL ABG pH 7.26 L (7.35-7.45) ABG pCO2 58 H (35-45) mmHg ABG HCO3 26 H (21-25) mmol/L ABG Total CO2 28 H (19-24) mmol/L ABG O2 Saturation 97.2 H (94-97) % Sodium (137-145) mmol/L Carbon Dioxide (22-30) mmol/L Glucose (74-99) mg/dL POC Glucose (mg/dL) 177 H (75-99) mg/dL Calcium (8.4-10.2) mg/dL Total Protein (6.3-8.2) g/dL Albumin (3.5-5.0) g/dL 05/22/21 05/22/21 05/22/21 Range/Units 04:51 05:53 06:48 WBC (3.8-10.6) k/uL RBC (3.80-5.40) m/uL Hgb (11.4-16.0) gm/dL Hct (34.0-46.0) % MCH (25.0-35.0) pg MCHC (31.0-37.0) g/dL RDW (11.5-15.5) % Plt Count (150-450) k/uL Neutrophils # (1.3-7.7) k/uL ABG pH 7.34 L (7.35-7.45) ABG pCO2 (35-45) mmHg ABG HCO3 (21-25) mmol/L ABG Total CO2 25 H (19-24) mmol/L ABG O2 Saturation 98.0 H (94-97) % Sodium 134 L (137-145) mmol/L Carbon Dioxide 21 L (22-30) mmol/L Glucose 203 H (74-99) mg/dL POC Glucose (mg/dL) 239 H (75-99) mg/dL Calcium 7.2 L (8.4-10.2) mg/dL Total Protein 5.6 L (6.3-8.2) g/dL Albumin 1.9 L (3.5-5.0) g/dL Microbiology - Last 24 Hours (Table) 05/17/21 16:53 Blood Culture - Preliminary Blood No Growth after 96 hours 05/17/21 16:54 Blood Culture - Preliminary Blood No Growth after 96 hours
[2021-05-23] MEDS: VANCOMYCIN 1,000 MG in SODIUM CHLORIDE 0.9% 250 ML IVPB SCH (04:33)
[2021-05-23 05:39] LABS: Glucose,Whole Blood 233 mg/dL (75-99)
[2021-05-23] MEDS: MEROPENEM 1 GM in SODIUM CHLORIDE 0.9% 100 ML IVPB SCH ×3 (05:42→21:05)
[2021-05-23] MEDS: INSULIN ASPART (NovoLOG) 100 UNIT/ML VIAL SQ SCH ×4 (05:42→23:59)
[2021-05-23] MEDS: THIAMINE 100 MG TAB PO SCH ×2 (05:42→17:25)
[2021-05-23 06:14] LABS: ABG Base Excess 0.3 mmol/L; ABG HCO3 26 mmol/L (21-25); ABG PCO2 45 mmHg (35-45); ABG PH 7.37 (7.35-7.45); ABG PO2 154 mmHg (83-108); ABG TCO2 27 mmol/L (19-24)
[2021-05-23 06:17] LABS: Allen Test Performed? yes
[2021-05-23 06:26] LABS: Anisocytosis Slight; HCT 25.2 % (34.0-46.0); HGB 7.3 gm/dL (11.4-16.0); Hypochromasia Marked; MCHC 29.2 g/dL (31.0-37.0); MCV 85.8 fL (80.0-100.0); Mean Platelet Volume 8.1; Platelet Count 422 k/uL (150-450); RBC 2.93 m/uL (3.80-5.40); WBC 13.4 k/uL (3.8-10.6)
[2021-05-23 06:44] LABS: African American GFR (CKD) >90 (>60 ml/min/1.73 sqM); Anion Gap 8 mmol/L; Blood Urea Nitrogen 6 mg/dL (7-17); Calcium 7.3 mg/dL (8.4-10.2); Carbon Dioxide 22 mmol/L (22-30); Chloride 110 mmol/L (98-107); Glucose 221 mg/dL (74-99); Non-African American GFR(CKD) >90 (>60 ml/min/1.73 sqM); Potassium 3.9 mmol/L (3.5-5.1); Sodium 140 mmol/L (137-145)
[2021-05-23] MEDS ORDERED: POTASSIUM BICARBONATE/CIT AC 20 MEQ TABLET.EFF NG-TUBE SCH (08:00)
[2021-05-23] MEDS ORDERED: ACETAMINOPHEN IV (For NPO) 1,000 MG in EMPTY BAG 1 BAG IVPB PRN (08:04)
[2021-05-23] MEDS ORDERED: ACETAMINOPHEN IV (For NPO) 1,000 MG in EMPTY BAG 1 BAG IVPB ONE (08:04)
[2021-05-23] MEDS: FLUCONAZOLE IN NACL,ISO-OSM 100 MG in SALINE 1 50ML.BAG IVPB SCH (08:06)
[2021-05-23] MEDS: ENOXAPARIN 40 MG/0.4 ML SYRINGE SQ SCH (08:09)
[2021-05-23] MEDS: PANTOPRAZOLE 40 MG/10 ML VIAL IVP SCH (08:09)
[2021-05-23] MEDS: CHLORHEXIDINE GLUCONATE 15 ML CUP MUCOUS MEM SCH ×2 (08:09→20:49)
[2021-05-23] MEDS: CHOLECALCIFEROL 25 MCG (1000 IU) TABLET PO SCH (08:11)
[2021-05-23] MEDS: PREGABALIN 75 MG CAP PO SCH ×3 (08:12→20:50)
[2021-05-23] MEDS: ESCITALOPRAM 20 MG TAB PO SCH (08:12)
[2021-05-23] MEDS: NYSTATIN 100,000 UNIT/ML SUSP 500,000 UNIT/5 ML CUP PO SCH ×4 (08:12→21:05)
[2021-05-23] MEDS: MAG HYDROX/AL HYDROX/SIMETH 30 ML, LIDOCAINE VISCOUS 30 ML, diphenhydrAMINE ELIXIR 75 M... PO SCH ×12 (08:14→20:51)
--- NOTE | 2021-05-23 08:16 | XR ---
EXAMINATION TYPE: XR chest 1V portable DATE OF EXAM: 05/23/2021 Comparison: 05/22/2021 Clinical History: 36-year-old female Tube placement Findings: ET and NG tubes are satisfactory. Right PICC tip near the cavoatrial junction. Heart normal size. Pat arcelia and confluent bilateral facet disease, right greater than left are redemonstrated. Aeration shows slight improvement from prior exam. No pneumothorax or pleural effusion. Impression: Persistent but improving bilateral airspace disease, right greater than left.
--- NOTE | 2021-05-23 08:27 | CDI ---
Documentation Clarification Form Date: 05/23/2021 08:14:00 AM From: Sylvie Norman CCS, CCDS Admit Date: 05/17/2021 02:55:00 PM Patient Name: Helen Cutler Visit Number: [id number] Discharge Date: ATTENTION: The Clinical Documentation Specialists (CDI) and [facility] Coding Staff appreciate your assistance in clarifying documentation. Please respond to the clarification below the line at the bottom and electronically sign. The CDI & [facility] Coding staff will review the response and follow-up if needed. Please note: Queries are made part of the Legal Health Record. If you have any questions, please contact the author of this message via ITS. Dr. Peter Hamilton: Per the 05/22 Code Blue Note: Patient experienced acute respiratory arrest, suspected due to hypercapnic respiratory failure, patient did not lose pulse, patient intubated and placed on vent, CXR showed severe ARDS, patient required PEEP of 10 to improve her oxygenation and started on vasopressors due to hypotension , given IVF fluids with normal saline continue supportive care initial admission was for aspiration pneumonia due to hypoglycemia episode, current blood sugar was 177. Additional clarification regarding the patient's condition is requested. History/Risk Factors per the 05/17 H/P: IDDM I, Bilateral Neuropathy: Legs & Feet, Chronic Low Back Pain, Bilateral Leg Pain, Migraines, Chronic Constipation, HPV, Chronic Diarrhea with food intake, MRSA, Anxiety, Depression. Clinical indicators: Presented to the ED on 05/17 via EMS with Hypoglycemia, Blood Sugar 36 per EMS. Family doing CPR upon [employer] arrival. Discharged from the hospital on 05/16 after being treated for DKA, Dehydration and Pneumonia. Admit with Hypoglycemia and worsening Pneumonia. 05/20 Attending Progress Note Impression: Acute bilateral pneumonia, left > right with aspiration pneumonia, Sepsis POA, Change in mental status, Acute metabolic encephalopathy. Severe Hypokalemia. Severe Hyponatremia. Fungal UTI. Severe protein calorie malnutrition w/BMI 20.6, DM Type 2 uncontrolled with Hypoglycemia. 05/17 VS: T 94.7, P 95 - 114, R 18, BP 128/93, PO 98 2Lnc, BMI: 21.0 05/17 LAB: WBC 21.9, Hgb 8.8, Hct 28.7, Pl Ct 474, Neut 19.7, Lymph 0.9, Na 129, Cr 0.29, Glucose 179, 83; [place] 7.2, T Prot 5.6, Albumin 2.0 UA: cloudy, tr prot, 1+ glucose, sm esterase, WBC 9 05/22 VS: T 99.0, P 99 - 102, R 20 - 24, BP 80/47, PO 93 high flow - 80 high flow, intubated/vent due to acute respiratory arrest. 05/22 LAB: WBC 26.8, Hgb 7.9, Hct 28.4, Pl Ct 530, Neutrophils 24.9; CO2 21, Glucose 203. 05/22 ABG: pH 7.26, pCO2 58, HCO3 26, Total CO2 28, O2 Sat 97.2 Treatment 05/17: Accuchecks, Blood cultures, O2 2Lnc, IV Dextrose 50 mls x1, IV Na Cl 500 mls @ 999 mls/hr q31M x2, IV Fluconazole/Na Cl 1000 mls @ 100 mls/hr Daily 05/22: IV Levophed, I Na Cl 1,000 mls @ 999 mls/hr q1H, IV Propofol, IV Lasix 20 mg x1, IV Vancomycin & IV Meropenem continued. Intubated on vent. Please clarify the following: [ ] Severe Sepsis with Septic Shock [ ] Severe Sepsis without Septic Shock [ ] Other, please specify: [ ] Unable to determine (Template Last Revised: July 2020) Severe Sepsis with Septic Shock MTDD
--- NOTE | 2021-05-23 08:31 | P.PN ---
Subjective Progress Note Date: 05/23/21 This is a 36-year-old old female, seen in the emergency room, room 10. The patient was just discharged out of the hospital yesterday, May 16. The patient apparently returned to the emergency room, with a low blood sugar. She was brought in by EMS. She apparently has no memory of why she was in the ospital. She apparently was hungry when she came into the ER. She complained of back pain. Her blood glucose on arrival was 36. The patient was in the hospital recently for a left-sided pneumonia. The patient also has a history of diabetes with diabetic ketoacidosis. The patient is currently on O2 at 2 L. She's getting D5 0.9 at 75 mL an hour. She was given Augmentin, but we discontinued it in favor of Zosyn. The patient has a history of diabetes, diabetic neuropathy, chronic low back pain, migraine cephalgia, chronic constipation, and prior MRSA infection. White count 21.9, hemoglobin 8.8, hematocrit 28.7, and platelet count 474,000. Sodium 129, potassium 4.4, chlorides 102, CO2 24, anion gap 3, BUN 7, with a creatinine of 0.29. Albumin is 2. Urine is light yellow in color, and cloudy, leukocyte esterase being small positive, 9 WBCs, and rare bacteria. Drug screen is negative. Testing for ling virus was negative. Chest x-ray shows bilateral pneumonia, with dense consolidation within the left lung, and much less infiltrate in the right base. Progress note dated 05/18/2021. This is a 36-year-old female, who was seen in the emergency department in consultation yesterday, and room 10. The patient was recently discharged from the hospital on May 16. She was brought back in for mental status changes, and a low blood sugar. Apparently her blood glucose was only 36. Her prior admission was for diabetic ketoacidosis, and left-sided ammonia. Currently, she is back to her normal self. The patient is on 4 L nasal O2. She's not complaining of any respiratory distress or difficulty. She has a dry nonproductive cough. She was placed on Zosyn yesterday by our team. She was seen by infectious diseases. She has a history of diabetes, diabetic neuropathy , chronic low back pain, migraine cephalgia, chronic constipation, and prior MRSA infection. Currently, white count 19.3, he will been 7.2, hematocrit 24, and platelet count 449,000. Sodium 133, potassium 3.8, chlorides 100, CO2 21, anion gap 12, UN 7, and creatinine 0.4. Pro-calcitonin level is 0.15. C- reactive protein is 5.7. On today's evaluation of 05/19/2021, the patient is doing well. The patient is awake and alert. No signs of any significant respiratory distress. The patient was restarted back on IV Zosyn. The chest x-ray showed extensive consolidation of the left lung and the CAT scan of the chest also confirmed the same findings. The patient was Hospital as because of hypoglycemia. The patient altered mentation and she recovered fully. She is currently on Levemir 20 units along with sliding scale coverage. She is also on D5 water running at 100 mL an hour. Antibiotic coverage with IV Zosyn. Blood work shows a white cell count 12.4 with hemoglobin 8.5, BUN is at 5 with a creatinine of 0.4 and his sodium is at 134 with a potassium level of 3.3. The COVID 19 test that was negative. Urine drug screen was negative. Pro-calcitonin level has been consistently low. A focused on level was at 0.15. The patient currently is on oxygen 4 L per minute nasal cannula. She is afebrile. She is medically and hemodynamically stable at this point in time. She has poor dental conditions and poor oral hygiene. She has also developed some ulceration over the tip of the tongue probably related to candidal infection. On 2021, the patient's condition decompensated and the patient got transferred to the intensive care unit for respiratory support. Overnight, the patient became progressively more hypoxemic and short of breath. She was given a dose of Lasix 40 mg IV push without any much improvement. She was becoming also more lethargic and short of breath. She got transferred to the ICU. Currently she is on a BiPAP at a pressure of 12/6 cm of water with an FiO2 of 100%. Her Pulse Ox Is 99%. A Chest X-Ray Showed Extensive Consolidation of the Left Lung. There Are Some Air Bronchograms on the Left. At the Same Time There Are Some Air Pockets in the Left [place] Which Makes Me Concerned about an Underlying Cavitation/Abscess Formation. At the Same Time, There Is Progression of the Airspace Disease and There Is Development of New Patchy Opacities in the Right Midlung and the Right Lower Lung. Note That the Patient Was Covered with IV Zosyn for Any Potential Aspiration Pneumonia.Pro-Calcitonin Level Was at 0.15. Currently She Is on BiPAP Which Is Quite Comfortable. She instructed BiPAP dependent. The patient easily decompensates and desaturates 1 she's taken off the BiPAP. Note that she also had extensive oropharyngeal candidiasis and ulceration of the tongue for which she was given Diflucan. I added cold solution on her yesterday. She is unable to do adequate oral care as the patient is BiPAP dependent. In terms of IV fluids, the patient is on D5 water running at 40 mL an hour. This was started due to concerns of underlying episodes of hypoglycemia. She is a very brittle diabetic. Her blood sugars are all over the place. She is currently on Levemir insulin 20 units a day along with a sliding scale coverage. The Levemir insulin was given today. She is not eating much at this point in time as the patient is BiPAP dependent. Other blood work, her white cell count of 19.0 which is higher compared to yesterday. Hemoglobin is at 7.8. The blood gas while on 100% BiPAP initially showed a pH of 7.37 with a pCO2 of 46 and pO2 of 50. Current saturations up to 90%. Sodium is at 130 with a potassium level of 3.4 and a serum bicarb of 23 with a mean of 4 and a creatinine of 0.4. Her albumin is down to 2.0 with a total protein of 5.7. Cultures for now are negative in terms of blood culture. Note that the patient had MRSA and E. coli and strep in her urine back in 05/09/2021. She has also has had a previous MRSA wound infection involving the scalp. She is arousable. She is a bit lethargic. No agitation. On 05/21/2021 patient seen in follow-up in the intensive care unit, she currently remains on BiPAP support as of 12 and 600%, and her pulse ox is 99- 100%, she is awake and alert, oriented 3, she is extremely thirsty and hungry, does not appear to be in any acute distress, no complaints of worsening dyspnea, she seems to be breathing comfortably, nursing staff reports that patient was able to come off the BiPAP support to take sips of water, oral care, and pills, and patient tolerates being off BiPAP support better although she does desaturate. She is afebrile, hemodynamically she is stable, she remains on a combination of meropenem and vancomycin and Diflucan which were modified yesterday. Blood cultures have been negative thus far, she's been afebrile, no hemoptysis, no complaints of chest discomfort. Produced 5.2 L in urine output in response to Lasix, and she is in -3.8 L net fluid balance over the last 24 hours, today's chest x-ray has been reviewed, showing stable diffuse bilateral airspace disease. Absent been reviewed, white blood cell count is 20.2, hemoglobin is 7.9, platelet count is 482, serum sodium is 133, potassium 3.7, chloride is 104, CO2 is 24, B1 is 5 creatinine 0.42. Her last pro-calcitonin level from 05/18/2021 was 0.15. On 05/22/2021 patient seen in follow-up in intensive care unit, last night during an episode of getting cleaned up after having a bowel movement patient complained of not feeling well, she certainly became unresponsive, she started desaturating, her respirations became very agonal and rapid response team was called for ERIC BLUE. There was no seizure activity noted prior to the event, patient was not desaturating just prior to that, no arrhythmias were noted other than bradycardia after she had started desaturating. During the code patient did not lose her pulse, her pulse ox was down to 66% on high flow Airvo, she was emergently intubated and placed on mechanical ventilator, chest x-ray shows severe ARDS, she was hypotensive and received IV fluids and received norepinephrine infusion which is currently still infusing at 0.06 mics per kilo per minute, she was not hypoglycemic and her blood sugar at that time was 177, she had D5W infusing at 40, and she was starting to take in some oral intake. This morning she is sedated, intubated on assist control mode of ventilation with a rate of 16, tidal, 350, FiO2 is currently at 50% and PEEP of 8, this morning's blood gas shows pO2 of 102, pCO2 of 43, pH is 7.34, this was done on 70% FiO2 which had since been dropped down to 50%, this morning's chest x-ray was reviewed showing moderately severe pulmonary air space edema, without significant change compared to yesterday. The patient is in sinus mechanism, blood pressure is 112/72, currently on meropenem, vancomycin and Diflucan for aspiration pneumonia, blood cultures have been negative, patient has not been able to produce a sputum culture for us. Her labs reveal white blood cell count of 26.8 which is increased since yesterday from 20.2, hemoglobin of 7.9, platelet count of 530, sodium is 134, potassium is 4.0, chloride is 107, CO2 is 21, BUN is 7 creatinine 0.52, her glucose this morning is 203, LFTs were within normal limits, her last pro-calcitonin level from a few days ago was 0.15. Yesterday patient was given a liter bolus after she became intubated, she is producing urine in the order of 30-75 ML per hour, her Lasix is on hold. On 05/23/2021 patient seen in follow-up in the intensive care unit, she is sedated, intubated on mechanical ventilator with a assist control mode of ventilation and rate of 16, tidal emesis 50, FiO2 of 60% and PEEP of 8, this morning's blood gas was reviewed showing O2 of 154, pCO2 of 45, and pH of 7.37. Is currently on Diprivan at 40 mics per kilo per minute, Levaquin is at 3 mics per minute, 0.9 saline at any ML per hour. Today's chest x-ray showing persistent but improving bilateral airspace disease, right greater than left. There is some blood work has been reviewed showing white blood cell count of 13.4, hemoglobin of 7.3, sodium of 140, potassium is 3.9, chloride is 110, CO2 of 22, BUN of 6, creatinine of 0.62, this morning his glucose was 221. Recent have fevers overnight with a T-max of 101.5F. She currently remains on combination of meropenem, vancomycin and Diflucan. Patient is status post bronchoscopy and bronchoalveolar lavage on 05/22/2021, and BAL cultures are still pending. Gram stain showed no organisms thus far. Patient is tolerating tube feedings with vital HP at a rate of 20 ML per hour, Orellana catheter is in place, and patient is producing urine in the order of 50 to 100 mL per hour. Objective - Vital Signs Vital signs: Vital Signs Temp 101.5 F H 05/23/21 07:45 Pulse 109 H 05/23/21 07:45 Resp 16 05/23/21 07:45 BP 119/77 05/23/21 07:45 Pulse Ox 100 05/23/21 07:45 Intake & Output 05/22/21 05/23/21 05/23/21 18:59 06:59 18:59 Intake Total 1070 1066.439 40 Output Total 2225 1225 50 Balance -1155 -158.561 -10 Weight 53.4 kg 52.5 kg Intake: IV 960 490 20 Dextrose 5% in Water 1, 200 000 ml @ 40 mls/hr IV . Q24H [facility] Rx#:[id number] Fluconazole in NaCl,Iso- 50 Osm 100 mg In Saline 1 50ml.bag @ 50 mls/hr IVPB DAILY [facility] Rx#:[id number] Meropenem 1 gm In Sodium 100 Chloride 0.9% 100 ml @ 33 .3 mls/hr IVPB Q8H [facility] Rx #:[id number] NS 360 240 20 Vancomycin 1,000 mg In 250 250 Sodium Chloride 0.9% 250 ml @ 125 mls/hr IVPB Q12H [facility] Rx#:[id number] Intake, IV Titration 100 296.439 Amount Norepinephrine 4 mg In 197.969 Sodium Chloride 0.9% 250 ml @ 0.05 MCG/KG/MIN 9. 601 mls/hr IV .Q24H [facility] Rx#:[id number] propofoL 1,000 mg In 100 98.47 Empty Bag 1 bag @ Titrate IV .Q0M [facility] Rx#: [id number] Tube Feeding 10 190 20 Other 90 Output: Urine 2225 1225 50 Other: Voiding Method Indwelling Catheter Indwelling Catheter - Exam GENERAL EXAM: Sedated and intubated 36-year-old frail looking white female, on AC 16, TV 350, Fio2 60%, and PEEP of 8, comfortable in no apparent distress. HEAD: Normocephalic/atraumatic. EYES: Normal reaction of pupils, equal size. Conjunctiva pink, sclera white. NOSE: Clear with pink turbinates. MOUTH: She has ulcerations of her oral cavity THROAT: No erythema or exudates. NECK: No masses, no JVD, no thyroid enlargement, no adenopathy. CHEST: No chest wall deformity. Symmetrical expansion. LUNGS: diminished air entry with crackles, no wheeze, no rhonchi or dullness. CVS: Regular rate and rhythm, normal S1 and S2, no gallops, no murmurs, no rubs ABDOMEN: Soft, nontender. No hepatosplenomegaly, normal bowel sounds, no guarding or rigidity. EXTREMITIES: No clubbing, no edema, no cyanosis, 2+ pulses and upper and lower extremities. MUSCULOSKELETAL: Muscle strength and tone normal. SPINE: No scoliosis or deformity SKIN: No rashes CENTRAL NERVOUS SYSTEM: Intubated and sedated. No focal deficits, tone is normal in all 4 extremities. - Labs CBC & Chem 7: 05/23/21 05:48 05/23/21 05:48 Labs: Abnormal Lab Results - Last 24 Hours (Table) 05/22/21 05/22/21 05/22/21 Range/Units 11:54 17:28 23:51 WBC (3.8-10.6) k/uL RBC (3.80-5.40) m/uL Hgb (11.4-16.0) gm/dL Hct (34.0-46.0) % MCHC (31.0-37.0) g/dL RDW (11.5-15.5) % ABG pO2 (83-108) mmHg ABG HCO3 (21-25) mmol/L ABG Total CO2 (19-24) mmol/L ABG O2 Saturation (94-97) % Chloride (98-107) mmol/L BUN (7-17) mg/dL Glucose (74-99) mg/dL POC Glucose (mg/dL) 214 H 117 H 154 H (75-99) mg/dL Calcium (8.4-10.2) mg/dL 05/23/21 05/23/21 05/23/21 Range/Units 05:37 05:48 05:48 WBC 13.4 H (3.8-10.6) k/uL RBC 2.93 L (3.80-5.40) m/uL Hgb 7.3 L (11.4-16.0) gm/dL Hct 25.2 L (34.0-46.0) % MCHC 29.2 L (31.0-37.0) g/dL RDW 17.0 H (11.5-15.5) % ABG pO2 (83-108) mmHg ABG HCO3 (21-25) mmol/L ABG Total CO2 (19-24) mmol/L ABG O2 Saturation (94-97) % Chloride 110 H (98-107) mmol/L BUN 6 L (7-17) mg/dL Glucose 221 H (74-99) mg/dL POC Glucose (mg/dL) 233 H (75-99) mg/dL Calcium 7.3 L (8.4-10.2) mg/dL 05/23/21 Range/Units 05:57 WBC (3.8-10.6) k/uL RBC (3.80-5.40) m/uL Hgb (11.4-16.0) gm/dL Hct (34.0-46.0) % MCHC (31.0-37.0) g/dL RDW (11.5-15.5) % ABG pO2 154 H (83-108) mmHg ABG HCO3 26 H (21-25) mmol/L ABG Total CO2 27 H (19-24) mmol/L ABG O2 Saturation 100.0 H (94-97) % Chloride (98-107) mmol/L BUN (7-17) mg/dL Glucose (74-99) mg/dL POC Glucose (mg/dL) (75-99) mg/dL Calcium (8.4-10.2) mg/dL Microbiology - Last 24 Hours (Table) 05/22/21 03:05 Gram Stain - Preliminary Sputum Sputum Culture - Preliminary 05/17/21 16:53 Blood Culture - Preliminary Blood No Growth after 120 hours 05/17/21 16:54 Blood Culture - Preliminary Blood No Growth after 120 hours 05/22/21 09:44 Acid Fast Bacilli Culture - Preliminary Bronchial Washings - Right 05/22/21 09:44 Fungal Culture - Preliminary Bronchial Washings - Right Assessment and Plan Plan: Assessment: #1. Acute hypoxic respiratory failure related to worsening and progression of pneumonia, and chest x-ray showing patchy consolidation involving the right midlung, right upper lobe and right lower lobe in addition to extensive consolidation of the left lung with possibly some cavitation. Patient is currently covered with meropenem and vancomycin, her antibiotics have been modified yesterday, initially covered with Zosyn, patient was doing well on Airvo on 05/21/2021, was clinically improving, but suffered acute respiratory arrest on 05/21/2021 and was intubated, currently on 05/23/2021 patient remains intubated, on assist-control mode of ventilation with a rate of 16, tidal emesis 350, FiO2 of 60 and PEEP of 8, however her oxygenation and her chest x-ray findings are significantly improved, and the plan is to wake the patient up and attempt weaning trials and possibly extubation today #2. Altered mental status secondary to hypoglycemia. Patient had recovered, and she was back to baseline neurologically #3. History of diabetes, and recent episode of diabetic ketoacidosis, recovered. Levemir insulin has been discontinued and patient is currently covered with sliding scale NovoLog, her last episode of hypoglycemia was on 05/19/2021 with a blood sugar of 45. No recurrence of hypoglycemia since #4. History of syncopal episodes related to hypoglycemia #5. History of migraine cephalgia #6. History of diabetic neuropathy #7. Chronic constipation #8. Chronic low back pain #9. Tongue and oral pharyngeal candidiasis, with ulcerations #10. Previous history of MRSA infection in the laceration of the scalp Plan: Todays labs, chest x-ray and blood gases reviewed Chest x-ray showing persistent but improving bilateral airspace disease right greater than left Oxygenation is stable, and improved, drop FiO2 down to 45% and PEEP down to 5 Continue current antibiotic coverage med meropenem, vancomycin and Diflucan BAL cultures are pending, her prelim Gram stain is showing no organisms thus far Continue GI and DVT prophylaxis Tube feedings have been started patient is tolerating them well Patient is persistently febrile We will send 2 sets of blood cultures Continue breathing treatments Continue close monitoring of blood sugars Proceed with daily interruption of sedation and place the patient on pressure- support of 5 and CPAP of 5 when she wakes up and follows commands Obtain weaning parameters, and the goal is to extubate the patient today I performed a history & physical examination of the patient and discussed their management with my nurse practitioner, Dania Negron. I reviewed the nurse practitioner's note and agree with the documented findings and plan of care. Leonela ng sounds are positive for dim breath sounds throughout the lung abbott. The findings and the impression was discussed with the patient. I attest to the documentation by the nurse practitioner. Time with Patient: Greater than 30
[2021-05-23] MEDS: ZINC SULFATE 220 MG CAP PO SCH (09:03)
[2021-05-23 11:40] LABS: Glucose,Whole Blood 207 mg/dL (75-99)
[2021-05-23] MEDS: FOLIC ACID 1 MG TAB PO SCH (14:26)
[2021-05-23] MEDS: MULTIVITAMINS, THERA 1 EACH TAB PO SCH (14:27)
[2021-05-23 17:26] LABS: Glucose,Whole Blood 191 mg/dL (75-99)
[2021-05-23] MEDS ORDERED: VANCOMYCIN 1,000 MG in SODIUM CHLORIDE 0.9% 250 ML IVPB SCH (18:00)
--- NOTE | 2021-05-23 18:50 | PN ---
PROGRESS NOTE DATE OF SERVICE: 05/23/2021 REASON FOR FOLLOWUP: Pneumonia. INTERVAL HISTORY: Patient did spike a fever of 101.5 degrees Fahrenheit this morning. The patient is hemodynamically stable. The patient has been extubated, currently on nasal cannula oxygen. The patient is slightly sleepy, lethargic. No respiratory distress. No vomiting or diarrhea has been reported. PHYSICAL EXAMINATION: Blood pressure 119/77, pulse of 109, temperature 101.7. General description is a middle-aged female lying in bed in no distress. Respiratory system: Unlabored breathing, decreased intensity of breath sounds, no wheeze. Heart S1, S2. Regular rate and rhythm. Abdomen soft, no tenderness. LABS: Hemoglobin 10.1, white count 13.4, creatinine 0.62. Blood cultures currently pending. DIAGNOSTIC IMPRESSION AND PLAN: Patient with acute respiratory failure which is multifactorial in this patient possible aspiration pneumonia. Sputum cultures are currently pending. Patient on broad spectrum antibiotic, to continue and adjusting further based on culture report on meropenem and vanco. Mother at bedside. Questions were answered. MMODL / IJN: [id number] /
[2021-05-23] MEDS: MONTELUKAST 10 MG TAB PO SCH (20:49)
[2021-05-23] MEDS: AMITRIPTYLINE HCL 10 MG TAB PO SCH (20:49)
[2021-05-23] MEDS: INSULIN DETEMIR (LEVEMIR) 100 UNIT/ML SYR SQ SCH (21:05)
[2021-05-23] MEDS ORDERED: NOREPINEPHRIN 4 MG-0.9% NS PMX 4 MG/250 ML ML IV ONE (21:36)
[2021-05-23] MEDS ORDERED: propofoL 100 ML IV ONE (21:38)
[2021-05-23] MEDS: NOREPINEPHRINE 4 MG in SODIUM CHLORIDE 0.9% 250 ML IV SCH (22:12)
[2021-05-23 22:15] LABS: ABG Base Excess 1.4 mmol/L; ABG HCO3 29 mmol/L (21-25); ABG Oxygen Saturation 94.2 % (94-97); ABG PCO2 67 mmHg (35-45); ABG PH 7.24 (7.35-7.45); ABG PO2 80 mmHg (83-108); ABG TCO2 31 mmol/L (19-24); Allen Test Performed? Yes
--- NOTE | 2021-05-23 22:31 | XR ---
EXAMINATION TYPE: XR chest 1V portable DATE OF EXAM: 05/23/2021 COMPARISON: Today HISTORY: Tube placement TECHNIQUE: FINDINGS: There is moderate pulmonary edema. There is right subclavian catheter with tip in the super ior vena cava. The endotracheal tube is 4 mm from the lucas. There is also some additional tubing ov er the neck in uncertain location. There is nasogastric tube in the stomach. IMPRESSION: [id number] pulmonary edema that is worse than exam earlier today. Endotracheal tu be is low and almost in contact with the lucas.
--- NOTE | 2021-05-23 22:33 | XR ---
EXAMINATION TYPE: XR chest 1V portable DATE OF EXAM: 05/23/2021 COMPARISON: Today HISTORY: Tube placement TECHNIQUE: Single view FINDINGS: There is endotracheal tube 11 mm from the lucas. Nasogastric tube is in the stomach. There is moderately severe pulmonary edema. No pneumothorax. Right subclavian catheter with tip in the rig ht atrium. IMPRESSION: Endotracheal tube is low and should be pulled back 2 cm. There is moderately severe pulmo nary edema.
[2021-05-23 23:55] LABS: Glucose,Whole Blood 172 mg/dL (75-99)
[2021-05-24] MEDS ORDERED: VANCOMYCIN TROUGH DUE 1 EACH MISC MISCELLANE ONE (05:00)
[2021-05-24 05:09] LABS: ABG Base Excess 8.9 mmol/L; ABG HCO3 32 mmol/L (21-25); ABG PCO2 43 mmHg (35-45); ABG PH 7.48 (7.35-7.45); ABG PO2 >400 mmHg (83-108); ABG TCO2 34 mmol/L (19-24); Allen Test Performed? Yes
[2021-05-24 05:42] LABS: ALT 6 U/L (4-34); AST 17 U/L (14-36); African American GFR (CKD) >90 (>60 ml/min/1.73 sqM); Albumin 1.7 g/dL (3.5-5.0); Alkaline Phosphatase 100 U/L (38-126); Anion Gap 2 mmol/L; Blood Urea Nitrogen 7 mg/dL (7-17); Calcium 7.4 mg/dL (8.4-10.2); Carbon Dioxide 30 mmol/L (22-30); Chloride 112 mmol/L (98-107); Glucose 79 mg/dL (74-99); Non-African American GFR(CKD) >90 (>60 ml/min/1.73 sqM); Potassium 3.2 mmol/L (3.5-5.1); Sodium 144 mmol/L (137-145); Total Bilirubin 0.3 mg/dL (0.2-1.3); Total Protein 5.4 g/dL (6.3-8.2)
[2021-05-24 05:52] LABS: Anisocytosis Slight; Basophils % (A) 0 %; Eosinophils % (A) 1 %; HCT 22.4 % (34.0-46.0); Hypochromasia Marked; Lymphocytes # (A) 1.3 k/uL (1.0-4.8); Lymphocytes % (A) 18 %; MCH 23.7 pg (25.0-35.0); MCHC 27.2 g/dL (31.0-37.0); MCV 87.4 fL (80.0-100.0); Mean Platelet Volume 7.9; Monocytes # (A) 0.3 k/uL (0-1.0); Monocytes % (A) 4 %; Neutrophils # (A) 5.4 k/uL (1.3-7.7); Neutrophils % (A) 76 %; Platelet Count 385 k/uL (150-450); RBC 2.56 m/uL (3.80-5.40); RDW 16.9 % (11.5-15.5); WBC 7.1 k/uL (3.8-10.6)
[2021-05-24 05:53] LABS: HGB 6.1 gm/dL (11.4-16.0)
[2021-05-24] MEDS: INSULIN ASPART (NovoLOG) 100 UNIT/ML VIAL SQ SCH ×4 (06:34→20:06)
--- NOTE | 2021-05-24 06:48 | XR ---
EXAMINATION TYPE: XR chest 1V portable DATE OF EXAM: 05/24/2021 COMPARISON: 05/23/2021 HISTORY: Tube placement TECHNIQUE: Single frontal view of the chest is obtained. FINDINGS: There is an ET tube approximately 4 cm above the lucas. There is no change in the PICC line or NG tube. There has been significant interval improvement in the bilateral lung infiltrates which are worse on the right compared to the left. Heart size is normal. The pulmonary vasculature is not congested. The re is no pneumothorax. There is a probable small left pleural effusion. The osseous structures are intact. IMPRESSION: Significant interval improvement in the bilateral lung infiltrates. ET tube proximal 4 c m above the lucas.
[2021-05-24] MEDS: MEROPENEM 1 GM in SODIUM CHLORIDE 0.9% 100 ML IVPB SCH ×3 (09:15→21:39)
[2021-05-24] MEDS: POTASSIUM BICARB-CITRIC ACID 25 MEQ TABLET.EFF PO SCH ×2 (09:16→09:46)
[2021-05-24] MEDS: CHLORHEXIDINE GLUCONATE 15 ML CUP MUCOUS MEM SCH ×2 (09:17→21:39)
[2021-05-24] MEDS: ENOXAPARIN 40 MG/0.4 ML SYRINGE SQ SCH (09:17)
[2021-05-24] MEDS: ESCITALOPRAM 20 MG TAB PO SCH (09:18)
[2021-05-24] MEDS: NYSTATIN 100,000 UNIT/ML SUSP 500,000 UNIT/5 ML CUP PO SCH ×4 (09:18→21:39)
[2021-05-24] MEDS: PANTOPRAZOLE 40 MG/10 ML VIAL IVP SCH (09:18)
[2021-05-24] MEDS: THIAMINE 100 MG TAB PO SCH ×2 (09:18→16:31)
[2021-05-24] MEDS: PREGABALIN 75 MG CAP PO SCH ×3 (09:19→23:56)
[2021-05-24] MEDS: FOLIC ACID 1 MG TAB PO SCH (09:19)
[2021-05-24] MEDS: MULTIVITAMINS, THERA 1 EACH TAB PO SCH (09:19)
[2021-05-24] MEDS: ZINC SULFATE 220 MG CAP PO SCH (09:19)
[2021-05-24] MEDS: CHOLECALCIFEROL 25 MCG (1000 IU) TABLET PO SCH (09:19)
--- NOTE | 2021-05-24 09:23 | P.PN ---
Subjective Progress Note Date: 05/23/21 This is a 36-year-old female who was recently admitted with changes in mental status along with significant hypoglycemia and is being closely monitored. Patient continues on 100% BiPAP with continued dyspnea and pulmonary following closely. Patient also found to have bilateral pneumonia possible aspiration and also a fungal urinary tract infection. Patient continues in the ICU for close monitoring and infectious disease is also following. Patient continues on IV antibiotics in the form of meropenem along with fluconazole and vancomycin and will continue. Multiple family members at the bedside. Recommend repeat chest x-ray along with labs in the morning. White blood Count elevated at 19.1. Potassium is 3.4 and magnesium 1.6 and will replace per protocol. 05/21/2021 She is seen in follow-up continues to be in the ICU being closely monitored. Patient was maintained on BiPAP and attempting airvo to allow for oral intake. Only at the bedside with multiple questions and concerns answered to the best of our ability. Patient's mentation is improved and answering questions and responding to commands appropriately. Chest x-ray today shows bilateral diffuse airspace disease with small effusion, stable with no pneumothorax noted. Infectious disease following an patient is continued on IV fluconazole along with meropenem. Blood cultures remain negative. Blood count is mildly elevated at 20.2. Patient is afebrile. Recommend repeat labs and chest x-ray in the a.m. She denies any chest pains or palpitations at this time. Patient tolerating oral intake and recommend strict aspiration precautions of head of the bed elevated 30-45 at all times and supervision with meals. 05/22/2021 Patient is seen in follow up and being closely monitored in the ICU with multiple medical consultations following. Patient was an A team this morning for acute respiratory arrest that was witnessed by nursing staff at the bedside and was changing the patient after a bowel movement and became apneic and code blue was initiated. Patient did not lose pulse but was intubated and placed on sedation. Chest xray showed moderately severe pulmonary edema without change compared to yesterday. Patient was given a dose of lasix. Patient is on some pressor support as well. Pulmonary following and patient underwent bronchoscopy with fluid analysis sent and pending. Patient is continued on IV merrem and vancomycin with ID following closely. Await finalized cultures. WBC elevated as well at 26.8. 05/23/2021 Patient is seen and evaluated this morning and continues in critical condition in the ICU. Mother at the bedside and patient was extubated this morning. Patient is currently resting on 2L of02 via NC with oxygen saturation above 90%. Patient is extremely lethargic but arousable. Chest xray shows persistent but improving airspace disease, right greater than left. Mother is at the bedside. Labs: WBC is 13.4, hemoglobin is 7.3, platelets are 422, sodium is 140, potassium 3.9, BUN 6, creatinine 0.62, calcium 7.3 Review of systems: unable to assess as patient was just extubated and extremely lethargic All medications have been reviewed Active Medications Acetaminophen (Acetaminophen Tab 325 Mg Tab) 650 mg PO Q6HR PRN PRN Reason: Fever and/ or Pain Last Admin: 05/23/21 04:35 Dose: 650 mg Documented by: Amitriptyline HCl (Amitriptyline Hcl 10 Mg Tab) 10 mg PO HS [facility] Last Admin: 05/23/21 20:49 Dose: Not Given Documented by: Chlorhexidine Gluconate (Chlorhexidine Gluconate 15 Ml Cup) 15 ml MUCOUS MEM BID [facility] Last Admin: 05/23/21 20:49 Dose: Not Given Documented by: Cholecalciferol (Cholecalciferol 25 Mcg (1000 Iu) Tablet) 50 mcg PO DAILY [facility] Last Admin: 05/23/21 08:11 Dose: 50 mcg Documented by: Al Hydroxide/Mg Hydroxide 30 ml/ Lidocaine HCl 30 ml/Diphenhydramine HCl 75 mg/Nystatin 3,000,000 unit 0 ml PO TID [facility] Last Admin: 05/23/21 20:51 Dose: Not Given Documented by: Enoxaparin Sodium (Enoxaparin 40 Mg/0.4 Ml Syringe) 40 mg SQ DAILY [facility] Last Admin: 05/23/21 08:09 Dose: 40 mg Documented by: Escitalopram Oxalate (Escitalopram 20 Mg Tab) 20 mg PO DAILY [facility] Last Admin: 05/23/21 08:12 Dose: 20 mg Documented by: Folic Acid (Folic Acid 1 Mg Tab) 1 mg PO DAILY@1200 [facility] Last Admin: 05/23/21 14:26 Dose: 1 mg Documented by: Fluconazole/Sodium Chloride (100 mg/ IV Solution) 50 mls @ 50 mls/hr IVPB DAILY [facility] Last Admin: 05/23/21 08:06 Dose: 50 mls/hr Documented by: Meropenem 1 gm/ Sodium (Chloride) 100 mls @ 33.3 mls/hr IVPB Q8H [facility]; Protocol Last Admin: 05/23/21 21:05 Dose: 33.3 mls/hr Documented by: Propofol 1,000 mg/ IV Solution 100 mls @ 0 mls/hr IV .Q0M [facility]; Protocol Last Admin: 05/23/21 22:11 Dose: 10 mcg/kg/min, 3.15 mls/hr Documented by: Norepinephrine Bitartrate 4 mg (/ Sodium Chloride) 254 mls @ 9.601 mls/hr IV .Q24H [facility]; Protocol Last Titration: 05/24/21 07:26 Dose: 0 mcg/kg/min, 0 mls/hr Documented by: Acetaminophen 1,000 mg/ IV (Solution) 100 mls @ 400 mls/hr IVPB Q6HR PRN PRN Reason: Fever Stop: 06/09/21 08:05 Vancomycin HCl 1,000 mg/ (Sodium Chloride) 250 mls @ 125 mls/hr IVPB Q18H [facility] Insulin Aspart (Insulin Aspart (Novolog) 100 Unit/Ml Vial) 0 unit SQ Q6H [facility]; Protocol Last Admin: 05/24/21 06:34 Dose: Not Given Documented by: Insulin Detemir (Insulin Detemir (Levemir) 100 Unit/Ml Syr) 20 unit SQ [facility] Last Admin: 05/23/21 21:05 Dose: 20 unit Documented by: Loperamide HCl (Loperamide 2 Mg Cap) 2 mg PO QID PRN PRN Reason: Diarrhea Last Admin: 05/21/21 17:48 Dose: 2 mg Documented by: Miscellaneous Information (Magnesium Replacement Protocol 1 Each Misc) 1 each MISCELLANE DAILY PRN; Protocol PRN Reason: Per Protocol Miscellaneous Information (Potassium Replacement Protocol 1 Each Misc) 1 each MISCELLANE DAILY PRN; Protocol PRN Reason: Per Protocol Miscellaneous Information (Vancomycin Trough Due 1 Each Misc) 0 each MISCELLANE DIRECTED ONE Stop: 05/25/21 23:01 Montelukast Sodium (Montelukast 10 Mg Tab) 10 mg PO HS [facility] Last Admin: 05/23/21 20:49 Dose: Not Given Documented by: Morphine Sulfate (Morphine Sulfate 2 Mg/Ml Syringe) 2 mg IVP Q4HR PRN PRN Reason: Pain/Discomfort Multivitamins (Multivitamins, Thera 1 Each Tab) 1 each PO DAILY@1200 [facility] Last Admin: 05/23/21 14:27 Dose: 1 each Documented by: Nystatin (Nystatin 100,000 Unit/Ml Susp 500,000 Unit/5 Ml Cup) 500,000 unit PO QID [facility] Last Admin: 05/23/21 21:05 Dose: 500,000 unit Documented by: Pantoprazole Sodium (Pantoprazole 40 Mg/10 Ml Vial) 40 mg IVP DAILY [facility] Last Admin: 05/23/21 08:09 Dose: 40 mg Documented by: Pregabalin (Pregabalin 75 Mg Cap) 75 mg PO TID [facility] Last Admin: 05/23/21 20:50 Dose: Not Given Documented by: Sumatriptan Succinate (Sumatriptan Succinate 50 Mg Tab) 100 mg PO DAILY PRN PRN Reason: Migraine Headache Thiamine HCl (Thiamine 100 Mg Tab) 100 mg PO BID-W/MEALS [facility] Last Admin: 05/23/21 17:25 Dose: Not Given Documented by: Zinc Sulfate (Zinc Sulfate 220 Mg Cap) 220 mg PO DAILY [facility] Last Admin: 05/23/21 09:03 Dose: 220 mg Documented by: Physical Exam: Gen: This is a 36-year-old female who is recently extubated this morning, thin built, cachectic. lethargic but arousable. Responding to commands appropriately but fatigues easily. Temp is 98.8F, pulse is 105, respirations are 22, blood pressure is 99/58, oxygen saturation is 100% on cpap and transitioning to nasal cannula, recently extubated this morning HEENT: Head is atraumatic, normocephalic. Pupils equal, round. Sclerae is anicteric. oral mucosa is dry and white patches noted on tongue NECK: Supple. No JVD. No lymphadenopathy. No thyromegaly. LUNGS: Breath sounds diminished with scattered rhonchi and crackles noted. No intercostal retractions. HEART: S1, S2 are muffled ABDOMEN: Soft. Bowel sounds are present. No masses. No tenderness. EXTREMITIES: No pedal edema. No calf tenderness. NEUROLOGICAL: Patient is lethargic but arousable. . Assessment: Acute bilateral pneumonia, left more than right with aspiration pneumonia with sepsis, present on admission acute respiratory arrest requiring mechanical ventilation, status post extubation this morning severe sepsis with septic shock Change in mental status, acute metabolic encephalopathy, multifactorial Acute hypoglycemia Severe hypokalemia Severe hyponatremia Fungal urinary tract infection Severe protein calorie malnutrition with a body mass index of 22.2 diabetes mellitus type I, uncontrolled with hypoglycemia Hypoalbuminemia Increased white count Anemia of unknown etiology history of syncope history of diabetes mellitus type 1, insulin-dependent History of peripheral neuropathy History of migraines History of HPV History of MRSA history of tubal ligation Anxiety, depression Gait dysfunction Full code Plan: Recommend to continue with current medications and follow along closely with multiple medical consultations. Infectious disease and pulmonary following closely and patient was extubated this morning. Patient underwent bronchoscopy recently and awaiting fluid cultures. Mother at the bedside and questions and concerns answered to the best of our ability. Patient is continued on IV antibiotics in the form of meropenem and vancomycin and will continue with infectious disease following closely and monitoring closely. Recommend repeat labs and follow-up chest x-ray in the morning. Recommend to keep the bed elevated 30-45 at all times and maintain aspiration precautions. Blood cultures remain negative. REcommend to continue to monitor blood sugars closely. Dietitian consulted for nutrition replacement. Due to multiple complex medical issues prognosis is extremely guarded. Objective - Vital Signs Vital signs: Vital Signs Temp 101.5 F H 05/23/21 07:45 Pulse 109 H 05/23/21 07:45 Resp 16 05/23/21 07:45 BP 119/77 05/23/21 07:45 Pulse Ox 100 05/23/21 07:45 Intake & Output 05/22/21 05/23/21 05/23/21 18:59 06:59 18:59 Intake Total 1070 1066.439 40 Output Total 2225 1225 50 Balance -1155 -158.561 -10 Weight 53.4 kg 52.5 kg Intake: IV 960 490 20 Dextrose 5% in Water 1, 200 000 ml @ 40 mls/hr IV . Q24H [facility] Rx#:[id number] Fluconazole in NaCl,Iso- 50 Osm 100 mg In Saline 1 50ml.bag @ 50 mls/hr IVPB DAILY [facility] Rx#:[id number] Meropenem 1 gm In Sodium 100 Chloride 0.9% 100 ml @ 33 .3 mls/hr IVPB Q8H [facility] Rx #:[id number] NS 360 240 20 Vancomycin 1,000 mg In 250 250 Sodium Chloride 0.9% 250 ml @ 125 mls/hr IVPB Q12H [facility] Rx#:[id number] Intake, IV Titration 100 296.439 Amount Norepinephrine 4 mg In 197.969 Sodium Chloride 0.9% 250 ml @ 0.05 MCG/KG/MIN 9. 601 mls/hr IV .Q24H [facility] Rx#:[id number] propofoL 1,000 mg In 100 98.47 Empty Bag 1 bag @ Titrate IV .Q0M [facility] Rx#: [id number] Tube Feeding 10 190 20 Other 90 Output: Urine 2225 1225 50 Other: Voiding Method Indwelling Catheter Indwelling Catheter - Labs CBC & Chem 7: 05/24/21 05:15 05/24/21 05:15 Labs: Abnormal Lab Results - Last 24 Hours (Table) 05/22/21 05/22/21 05/22/21 Range/Units 11:54 17:28 23:51 WBC (3.8-10.6) k/uL RBC (3.80-5.40) m/uL Hgb (11.4-16.0) gm/dL Hct (34.0-46.0) % MCHC (31.0-37.0) g/dL RDW (11.5-15.5) % ABG pO2 (83-108) mmHg ABG HCO3 (21-25) mmol/L ABG Total CO2 (19-24) mmol/L ABG O2 Saturation (94-97) % Chloride (98-107) mmol/L BUN (7-17) mg/dL Glucose (74-99) mg/dL POC Glucose (mg/dL) 214 H 117 H 154 H (75-99) mg/dL Calcium (8.4-10.2) mg/dL 05/23/21 05/23/21 05/23/21 Range/Units 05:37 05:48 05:48 WBC 13.4 H (3.8-10.6) k/uL RBC 2.93 L (3.80-5.40) m/uL Hgb 7.3 L (11.4-16.0) gm/dL Hct 25.2 L (34.0-46.0) % MCHC 29.2 L (31.0-37.0) g/dL RDW 17.0 H (11.5-15.5) % ABG pO2 (83-108) mmHg ABG HCO3 (21-25) mmol/L ABG Total CO2 (19-24) mmol/L ABG O2 Saturation (94-97) % Chloride 110 H (98-107) mmol/L BUN 6 L (7-17) mg/dL Glucose 221 H (74-99) mg/dL POC Glucose (mg/dL) 233 H (75-99) mg/dL Calcium 7.3 L (8.4-10.2) mg/dL 05/23/21 Range/Units 05:57 WBC (3.8-10.6) k/uL RBC (3.80-5.40) m/uL Hgb (11.4-16.0) gm/dL Hct (34.0-46.0) % MCHC (31.0-37.0) g/dL RDW (11.5-15.5) % ABG pO2 154 H (83-108) mmHg ABG HCO3 26 H (21-25) mmol/L ABG Total CO2 27 H (19-24) mmol/L ABG O2 Saturation 100.0 H (94-97) % Chloride (98-107) mmol/L BUN (7-17) mg/dL Glucose (74-99) mg/dL POC Glucose (mg/dL) (75-99) mg/dL Calcium (8.4-10.2) mg/dL Microbiology - Last 24 Hours (Table) 05/22/21 03:05 Gram Stain - Preliminary Sputum Sputum Culture - Preliminary 05/17/21 16:53 Blood Culture - Preliminary Blood No Growth after 120 hours 05/17/21 16:54 Blood Culture - Preliminary Blood No Growth after 120 hours 05/22/21 09:44 Acid Fast Bacilli Culture - Preliminary Bronchial Washings - Right 05/22/21 09:44 Fungal Culture - Preliminary Bronchial Washings - Right
[2021-05-24] MEDS: FLUCONAZOLE IN NACL,ISO-OSM 100 MG in SALINE 1 50ML.BAG IVPB SCH (09:45)
[2021-05-24] MEDS: MAG HYDROX/AL HYDROX/SIMETH 30 ML, LIDOCAINE VISCOUS 30 ML, diphenhydrAMINE ELIXIR 75 M... PO SCH ×12 (09:46→21:40)
--- NOTE | 2021-05-24 10:55 | P.PN ---
Subjective Progress Note Date: 05/24/21 This is a 36-year-old old female, seen in the emergency room, room 10. The patient was just discharged out of the hospital yesterday, May 16. The patient apparently returned to the emergency room, with a low blood sugar. She was brought in by EMS. She apparently has no memory of why she was in the hospital. She apparently was hungry when she came into the ER. She complained of back pain. Her blood glucose on arrival was 36. The patient was in the hospital recently for a left-sided pneumonia. The patient also has a history of diabetes with diabetic ketoacidosis. The patient is currently on O2 at 2 L. She's getting D5 0.9 at 75 mL an hour. She was given Augmentin, but we discontinued it in favor of Zosyn. The patient has a history of diabetes, diabetic neuropathy, chronic low back pain, migraine cephalgia, chronic constipation, and prior MRSA infection. White count 21.9, hemoglobin 8.8, hematocrit 28.7, and platelet count 474,000. Sodium 129, potassium 4.4, chlorides 102, CO2 24, anion gap 3, BUN 7, with a creatinine of 0.29. Albumin is 2. Urine is light yellow in color, and cloudy, leukocyte esterase being small positive, 9 WBCs, and rare bacteria. Drug screen is negative. Testing for ling virus was negative. Chest x-ray shows bilateral pneumonia, with dense consolidation within the left lung, and much less infiltrate in the right base. Progress note dated 05/18/2021. This is a 36-year-old female, who was seen in the emergency department in consultation yesterday, and room 10. The patient was recently discharged from the hospital on May 16. She was brought back in for mental status changes, and a low blood sugar. Apparently her blood glucose was only 36. Her prior admission was for diabetic ketoacidosis, and left-sided ammonia. Currently, she is back to her normal self. The patient is on 4 L nasal O2. She's not complaining of any respiratory distress or difficulty. She has a dry nonproductive cough. She was placed on Zosyn yesterday by our team. She was seen by infectious diseases. She has a history of diabetes, diabetic neuropa thy, chronic low back pain, migraine cephalgia, chronic constipation, and prior MRSA infection. Currently, white count 19.3, he will been 7.2, hematocrit 24, and platelet count 449,000. Sodium 133, potassium 3.8, chlorides 100, CO2 21, anion gap 12, UN 7, and creatinine 0.4. Pro-calcitonin level is 0.15. C- reactive protein is 5.7. On today's evaluation of 05/19/2021, the patient is doing well. The patient is awake and alert. No signs of any significant respiratory distress. The patient was restarted back on IV Zosyn. The chest x-ray showed extensive consolidation of the left lung and the CAT scan of the chest also confirmed the same findings. The patient was Hospital as because of hypoglycemia. The patient altered mentation and she recovered fully. She is currently on Levemir 20 units along with sliding scale coverage. She is also on D5 water running at 100 mL an hour. Antibiotic coverage with IV Zosyn. Blood work shows a white cell count 12.4 with hemoglobin 8.5, BUN is at 5 with a creatinine of 0.4 and his sodium is at 134 with a potassium level of 3.3. The COVID 19 test that was negative. Urine drug screen was negative. Pro-calcitonin level has been consistently low. A focused on level was at 0.15. The patient currently is on oxygen 4 L per minute nasal cannula. She is afebrile. She is medically and hemodynamically stable at this point in time. She has poor dental conditions and poor oral hygiene. She has also developed some ulceration over the tip of the tongue probably related to candidal infection. On 2021, the patient's condition decompensated and the patient got transferred to the intensive care unit for respiratory support. Overnight, the patient became progressively more hypoxemic and short of breath. She was given a dose of Lasix 40 mg IV push without any much improvement. She was becoming also more lethargic and short of breath. She got transferred to the ICU. Currently she is on a BiPAP at a pressure of 12/6 cm of water with an FiO2 of 100%. Her Pulse Ox Is 99%. A Chest X-Ray Showed Extensive Consolidation of the Left Lung. There Are Some Air Bronchograms on the Left. At the Same Time There Are Some Air Pockets in the Left [place] Which Makes Me Concerned about an Underlying Cavitation/Abscess Formation. At the Same Time, There Is Progression of the Airspace Disease and There Is Development of New Patchy Opacities in the Right Midlung and the Right Lower Lung. Note That the Patient Was Covered with IV Zosyn for Any Potential Aspiration Pneumonia.Pro-Calcitonin Level Was at 0.15. Currently She Is on BiPAP Which Is Quite Comfortable. She instructed BiPAP dependent. The patient easily decompensates and desaturates 1 she's taken off the BiPAP. Note that she also had extensive oropharyngeal candidiasis and ulceration of the tongue for which she was given Diflucan. I added cold solution on her yesterday. She is unable to do adequate oral care as the patient is BiPAP dependent. In terms of IV fluids, the patient is on D5 water running at 40 mL an hour. This was started due to concerns of underlying episodes of hypoglycemia. She is a very brittle diabetic. Her blood sugars are all over the place. She is currently on Levemir insulin 20 units a day along with a sliding scale coverage. The Levemir insulin was given today. She is not eating much at this point in time as the patient is BiPAP dependent. Other blood work, her white cell count of 19.0 which is higher compared to yesterday. Hemoglobin is at 7.8. The blood gas while on 100% BiPAP initially showed a pH of 7.37 with a pCO2 of 46 and pO2 of 50. Current saturations up to 90%. Sodium is at 130 with a potassium level of 3.4 and a serum bicarb of 23 with a mean of 4 and a creatinine of 0.4. Her albumin is down to 2.0 with a total protein of 5.7. Cultures for now are negative in terms of blood culture. Note that the [facility] ient had MRSA and E. coli and strep in her urine back in 05/09/2021. She has also has had a previous MRSA wound infection involving the scalp. She is arousable. She is a bit lethargic. No agitation. On 05/21/2021 patient seen in follow-up in the intensive care unit, she currently remains on BiPAP support as of 12 and 600%, and her pulse ox is 99- 100%, she is awake and alert, oriented 3, she is extremely thirsty and hungry, does not appear to be in any acute distress, no complaints of worsening dyspnea, she seems to be breathing comfortably, nursing staff reports that patient was able to come off the BiPAP support to take sips of water, oral care, and pills, and patient tolerates being off BiPAP support better although she does desaturate. She is afebrile, hemodynamically she is stable, she remains on a combination of meropenem and vancomycin and Diflucan which were modified yeste rday. Blood cultures have been negative thus far, she's been afebrile, no hemoptysis, no complaints of chest discomfort. Produced 5.2 L in urine output in response to Lasix, and she is in -3.8 L net fluid balance over the last 24 hours, today's chest x-ray has been reviewed, showing stable diffuse bilateral airspace disease. Absent been reviewed, white blood cell count is 20.2, hemoglobin is 7.9, platelet count is 482, serum sodium is 133, potassium 3.7, chloride is 104, CO2 is 24, B1 is 5 creatinine 0.42. Her last pro-calcitonin level from 05/18/2021 was 0.15. On 05/22/2021 patient seen in follow-up in intensive care unit, last night during an episode of getting cleaned up after having a bowel movement patient complained of not feeling well, she certainly became unresponsive, she started desaturating, her respirations became very agonal and rapid response team was called for ERIC BLUE. There was no seizure activity noted prior to the event, patient was not desaturating just prior to that, no arrhythmias were noted other than bradycardia after she had started desaturating. During the code patient did not lose her pulse, her pulse ox was down to 66% on high flow Airvo, she was emergently intubated and placed on mechanical ventilator, chest x-ray shows severe ARDS, she was hypotensive and received IV fluids and received norepinephrine infusion which is currently still infusing at 0.06 mics per kilo per minute, she was not hypoglycemic and her blood sugar at that time was 177, she had D5W infusing at 40, and she was starting to take in some oral intake. This morning she is sedated, intubated on assist control mode of ventilation with a rate of 16, tidal, 350, FiO2 is currently at 50% and PEEP of 8, this morning's blood gas shows pO2 of 102, pCO2 of 43, pH is 7.34, this was done on 70% FiO2 which had since been dropped down to 50%, this morning's chest x-ray was reviewed showing moderately severe pulmonary air space edema, without significant change compared to yesterday. The patient is in sinus mechanism, blood pressure is 112/72, currently on meropenem, vancomycin and Diflucan for aspiration pneumonia, blood cultures have been negative, patient has not been able to produce a sputum culture for us. Her labs reveal white blood cell count of 26.8 which is increased since yesterday from 20.2, hemoglobin of 7.9, platelet count of 530, sodium is 134, potassium is 4.0, chloride is 107, CO2 is 21, BUN is 7 creatinine 0.52, her glucose this morning is 203, LFTs were within normal limits, her last pro-calcitonin level from a few days ago was 0.15. Yesterday patient was given a liter bolus after she became intubated, she is producing urine in the order of 30-75 ML per hour, her Lasix is on hold. On 05/23/2021 patient seen in follow-up in the intensive care unit, she is sedated, intubated on mechanical ventilator with a assist control mode of ventil ation and rate of 16, tidal emesis 50, FiO2 of 60% and PEEP of 8, this morning's blood gas was reviewed showing O2 of 154, pCO2 of 45, and pH of 7.37. Is currently on Diprivan at 40 mics per kilo per minute, Levaquin is at 3 mics per minute, 0.9 saline at any ML per hour. Today's chest x-ray showing persistent but improving bilateral airspace disease, right greater than left. There is some blood work has been reviewed showing white blood cell count of 13.4, hemoglobin of 7.3, sodium of 140, potassium is 3.9, chloride is 110, CO2 of 22, BUN of 6, creatinine of 0.62, this morning his glucose was 221. Recent have fevers overnight with a T-max of 101.5F. She currently remains on combination of meropenem, vancomycin and Diflucan. Patient is status post bronchoscopy and bronchoalveolar lavage on 05/22/2021, and BAL cultures are still pending. Gram stain showed no organisms thus far. Patient is tolerating tube feedings with vital HP at a rate of 20 ML per hour, Orellana catheter is in place, and patient is producing urine in the order of 50 to 100 mL per hour. On 05/24/2021 , is being seen for a follow-up. Note that the patient was extubated successfully yesterday. Extubation process went fine and the patient was doing very well on a nasal cannula oxygen. At around midnight, the patient acutely decompensated. She became short of breath and hypoxic. Her blood. This was done that showed acute respiratory acidosis with a pH of 7.24 with a pCO2 of 67 and pO2 of 80 and this was identified to 100%. He became acutely unresponsive and significant respiratory distress was noted by the nursing staff. At that point, it was decided that he intubated the patient. The patient is currently intubated on a mechanical ventilator. The patient is sedated with propofol which is running at 30 mcg/kg per minute to maintain synchrony with the mechanical ventilator. She is on assist control mode at the rate of 25, tidal volume of 350, FiO2 has been weaned down to 50% and the luis miguel ent currently is in a PEEP of 10. Post intubation blood gases showed a pH of 7.48 with a pCO2 of 43 and pO2 of more than 400 and this was on FiO2 100%. Morning blood work also showed a drop in hemoglobin down to 6.1 from a baseline of 7.3. No evidence of any acute bleeding. No evidence of any hematemesis or melanotic stools. The patient will be given a total of 2 units of packed RBCs. Also, the patient is covered with broad-spectrum antibiotics patient remains on a combination of meropenem, vancomycin and Diflucan. The cultures from the bronchioloalveolar lavage was done earlier came back all negative. The repeat chest x-ray from today is showing adequate placement of the orotracheal tube. The patient continues to have bilateral pulmonary infiltrates. However, there is significant interval improvement in the bilateral pulmonary infiltrates compared to earlier chest x-rays. The white cycles of 7.12. Renal function is stable with a creatinine of 0.5 and a BUN of 7. Sodium level is at 144. Potassium level is at 3.2 and a K level will be replaced. The patient was restarted again on enteral feeding and this will be restarted today. Meanwhile, in terms of blood sugar control, the patient is receiving Levemir insulin 20 units once a day and a sliding scale coverage. Blood sugars have been maintained adequately and her most recent blood sugar currently is at 172. Her vancomycin felt level from today was 28. Objective - Vital Signs Vital signs: Vital Signs Temp 97.9 F 05/24/21 08:00 Pulse 91 05/24/21 08:00 Resp 25 H 05/24/21 08:00 BP 93/64 05/24/21 08:00 Pulse Ox 94 L 05/24/21 06:00 Intake & Output 05/23/21 05/24/21 05/24/21 18:59 06:59 18:59 Intake Total 950 684.700 350.569 Output Total 580 1075 200 Balance 370 -390.300 150.569 Weight 52.5 kg Intake: IV 790 340 210 ACETAMINOPHEN IV (For NPO 100 ) 1,000 mg In Empty Bag 1 bag @ 400 mls/hr IVPB ONCE ONE Rx#:[id number] Fluconazole in NaCl,Iso- 100 50 Osm 100 mg In Saline 1 50ml.bag @ 50 mls/hr IVPB DAILY [facility] Rx#:[id number] Meropenem 1 gm In Sodium 100 100 100 Chloride 0.9% 100 ml @ 33 .3 mls/hr IVPB Q8H [facility] Rx #:[id number] NS 240 240 60 Vancomycin 1,000 mg In 250 Sodium Chloride 0.9% 250 ml @ 125 mls/hr IVPB Q12H [facility] Rx#:[id number] Intake, IV Titration 100 344.700 40.569 Amount Norepinephrine 4 mg In 344.700 6.496 Sodium Chloride 0.9% 250 ml @ 0.05 MCG/KG/MIN 9. 601 mls/hr IV .Q24H [facility] Rx#:[id number] propofoL 1,000 mg In 100 34.073 Empty Bag 1 bag @ Titrate IV .Q0M [facility] Rx#: [id number] Tube Feeding 60 Blood Product 0 Rc As-1 Unit 0 [id number] Other 100 Output: Urine 580 1075 200 Other: Voiding Method Indwelling Catheter Indwelling Catheter Indwelling Catheter - Exam No acute distress, currently intubated on a mechanical ventilator. Orotracheal and orogastric tube are both in place. The patient is an assist-control mode of mechanical ventilation. She is sedated with propofol. HEENT examination is grossly unremarkable. The patient has ulcerative of the tongue and the patient has a very poor dental condition and poor oral hygiene and multiple ulcers on her tongue. Neck supple. Full range of motion. No adenopathy thyromegaly or neck vein distention. Cardiovascular examination reveals regular rhythm rate. S1-S2 normal. No S3 or S4. No discernible murmur noted. Lungs reveal diminished breath sounds on the left. Scattered rhonchi bilaterally. No wheezes or crackles. Abdomen soft bowel sounds are heard. No masses or tenderness. Extremities are intact. No cyanosis clubbing or edema. Skin is without rash or lesion. Neurologic examination is limited as the patient is currently sedated. Note that post extubation yesterday, the patient was fully awake and alert and appropriate. - Labs CBC & Chem 7: 05/24/21 05:15 05/24/21 05:15 Labs: Abnormal Lab Results - Last 24 Hours (Table) 05/23/21 05/23/21 05/23/21 Range/Units 11:39 17:22 22:13 RBC (3.80-5.40) m/uL Hgb (11.4-16.0) gm/dL Hct (34.0-46.0) % MCH (25.0-35.0) pg MCHC (31.0-37.0) g/dL RDW (11.5-15.5) % ABG pH 7.24 L (7.35-7.45) ABG pCO2 67 H (35-45) mmHg ABG pO2 80 L (83-108) mmHg ABG HCO3 29 H (21-25) mmol/L ABG Total CO2 31 H (19-24) mmol/L ABG O2 Saturation (94-97) % Potassium (3.5-5.1) mmol/L Chloride (98-107) mmol/L POC Glucose (mg/dL) 207 H 191 H (75-99) mg/dL Calcium (8.4-10.2) mg/dL Total Protein (6.3-8.2) g/dL Albumin (3.5-5.0) g/dL Crossmatch 05/23/21 05/24/21 05/24/21 Range/Units 23:54 05:08 05:15 RBC 2.56 L (3.80-5.40) m/uL Hgb 6.1 L* (11.4-16.0) gm/dL Hct 22.4 L (34.0-46.0) % MCH 23.7 L (25.0-35.0) pg MCHC 27.2 L (31.0-37.0) g/dL RDW 16.9 H (11.5-15.5) % ABG pH 7.48 H (7.35-7.45) ABG pCO2 (35-45) mmHg ABG pO2 >400 H (83-108) mmHg ABG HCO3 32 H (21-25) mmol/L ABG Total CO2 34 H (19-24) mmol/L ABG O2 Saturation 100.0 H (94-97) % Potassium (3.5-5.1) mmol/L Chloride (98-107) mmol/L POC Glucose (mg/dL) 172 H (75-99) mg/dL Calcium (8.4-10.2) mg/dL Total Protein (6.3-8.2) g/dL Albumin (3.5-5.0) g/dL Crossmatch 05/24/21 05/24/21 Range/Units 05:15 07:29 RBC (3.80-5.40) m/uL Hgb (11.4-16.0) gm/dL Hct (34.0-46.0) % MCH (25.0-35.0) pg MCHC (31.0-37.0) g/dL RDW (11.5-15.5) % ABG pH (7.35-7.45) ABG pCO2 (35-45) mmHg ABG pO2 (83-108) mmHg ABG HCO3 (21-25) mmol/L ABG Total CO2 (19-24) mmol/L ABG O2 Saturation (94-97) % Potassium 3.2 L (3.5-5.1) mmol/L Chloride 112 H (98-107) mmol/L POC Glucose (mg/dL) (75-99) mg/dL Calcium 7.4 L (8.4-10.2) mg/dL Total Protein 5.4 L (6.3-8.2) g/dL Albumin 1.7 L (3.5-5.0) g/dL Crossmatch See Detail Microbiology - Last 24 Hours (Table) 05/22/21 09:44 Acid Fast Bacilli Smear - Final Bronchial Washings - Right Acid Fast Bacilli Culture - Preliminary 05/17/21 16:54 Blood Culture - Final Blood No Growth after 144 hours 05/17/21 16:53 Blood Culture - Final Blood No Growth after 144 hours 05/22/21 03:05 Gram Stain - Preliminary Sputum Sputum Culture - Preliminary Assessment and Plan Plan: 1 hypoglycemia with secondary Mental status changes. 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 2 History of diabetes, with a recent episode of diabetic ketoacidosis, recovered. The patient continues to have a very brittle blood sugar. She is on Levemir insulin 20 units along with a sliding scale insulin coverage 3 acute hypoxic respiratory failure , and the patient developed worsening and progression of the pneumonia and there are areas of patchy consolidation or airspace disease involving the right midlung in the right upper lobe and the right lower lobe in addition to extensive consolidation of the left lung with possibly some cavitation. The chest x-ray continues to improve. The patient was extubated on 05/23/2021 to be reintubated within less than 24 hours. The exact cause wasn't intubation is not clear. Could be related to mucous plugs or respiratory insufficiency/fatigue. Post intubation, oxygenation is improved and a chest x-ray continues to show improvement in the bilateral pulmonary infiltrates. Remain on the same antibiotic coverage. Results of the cultures still pending for now. 4 oropharyngeal candidiasis, currently on Diflucan 5 History of syncope. 6 History of diabetic neuropathy. 7 History of migraine cephalgia. 8 Prior history of MRSA infection. 9 Chronic constipation. 10 Chronic low back pain. 11 tongue ulceration and the patient is currently on Diflucan for oropharyngeal candidiasis. 12 chronic anemia with interval drop in hemoglobin down to 6.1, without evidence of any acute bleeding. Plan Continue ventilator management and support for now Results of the bronchioloalveolar lavage Are essentially negative. We'll continue the same antibiotic coverage. For now, the patient is on a combination of IV Merrem and vancomycin covering for gram-negative resistant microorganisms in addition to vancomycin covering for staph pneumonia. The left lung consolidations remain unchanged and there is some early cavitation left upper lobe. We'll calcitonin level Repeat pro-calcitonin level Blood sugar management with Levemir insulin. Restart enteral feeding for nutritional support continue Diflucan Transfuse the patient with a total of 2 units of packed RBC and monitor the patient will be signs of bleeding The patient is cachectic with a BMI of 20.6 Poor dental on oral hygiene Condition is critical. The mother will be informed of these changes. We'll continue to follow. Critical care evaluation that was done and more than 30 minutes. Time with Patient: Greater than 30
[2021-05-24] MEDS ORDERED: DEXTROSE 50% SYRINGE 50 ML IVP ONE ×3 (11:27→17:30)
[2021-05-24 11:28] LABS: Glucose,Whole Blood <20 mg/dL (75-99)
[2021-05-24 11:30] LABS: Glucose,Whole Blood <20 mg/dL (75-99)
[2021-05-24 11:47] LABS: Glucose,Whole Blood 126 mg/dL (75-99)
[2021-05-24] MEDS: VANCOMYCIN 1,000 MG in SODIUM CHLORIDE 0.9% 250 ML IVPB SCH (12:27)
[2021-05-24 14:55] LABS: Glucose,Whole Blood 33 mg/dL (75-99)
[2021-05-24 14:57] LABS: Glucose,Whole Blood 31 mg/dL (75-99)
[2021-05-24 15:13] LABS: Glucose,Whole Blood 145 mg/dL (75-99)
--- NOTE | 2021-05-24 16:54 | PN ---
PROGRESS NOTE DATE OF SERVICE: 05/24/2021 REASON FOR FOLLOWUP: Pneumonia. INTERVAL HISTORY: The patient went into respiratory distress ended up getting re-intubated, currently on 50% FiO2. The patient was hypothermic this morning. Temperature is currently 95.1. Patient is hemodynamically, not on any pressor support. No significant purulent secretion through the ET has been reported significant drop in hemoglobin and is getting transfused. PHYSICAL EXAMINATION: Her blood pressure is 122/84 with a pulse of 89, temperature of 95.1. She is 99% on 50% FiO2. General description is a middle-aged female intubated on the vent. Respiratory system: Unlabored breathing, decreased intensity of breath sounds. No wheeze. Heart S1, S2. Regular rate and rhythm. Abdomen soft, no tenderness. LABS: Hemoglobin is 6.1, white count 7.1, creatinine 0.54. Vancomycin random was 28. Bronchoscopy culture has been negative so far. DIAGNOSTIC IMPRESSION AND PLAN: Patient with acute respiratory failure which is multifactorial in this patient with concern for possible aspiration pneumonitis. Chest x-ray shows some improvement in bilateral lung infiltrate. However, required re-intubation. Question of possible underlying cardiopulmonary condition. No evidence of any worsening infection. No fever. White count normal. She is covered with broad-spectrum antibiotic that will be continued while waiting for the bronch culture to finalize. Mother at the bedside. Questions and concerns were answered. MMODL / IJN: [id number] /
[2021-05-24 17:27] LABS: Glucose,Whole Blood 59 mg/dL (75-99)
[2021-05-24 17:44] LABS: Glucose,Whole Blood 155 mg/dL (75-99)
[2021-05-24 17:57] LABS: African American GFR (CKD) >90 (>60 ml/min/1.73 sqM); Anion Gap 3 mmol/L; Blood Urea Nitrogen 8 mg/dL (7-17); Calcium 7.2 mg/dL (8.4-10.2); Carbon Dioxide 28 mmol/L (22-30); Chloride 112 mmol/L (98-107); Glucose 69 mg/dL (74-99); Non-African American GFR(CKD) >90 (>60 ml/min/1.73 sqM); Potassium 3.8 mmol/L (3.5-5.1); Sodium 143 mmol/L (137-145)
--- NOTE | 2021-05-24 18:54 | PN ---
PROGRESS NOTE DATE OF SERVICE: 05/24/2021 This 36-year-old woman who was admitted with significant pneumonia, left more than the right, with acute hypoxic respiratory failure with sepsis, was extubated, but last night the patient had respiratory difficulties. The patient had to be reintubated. The patient also had bronchoscopy. The bronchoscopy cultures are negative so far. The patient currently is mechanically intubated. Hemoglobin has fallen to 6.1. Also blood sugars are fluctuating. Past medical history reviewed. Review of systems could not be taken. CURRENT MEDICATIONS: Reviewed. They include Tylenol, amitriptyline, Coreg, fluconazole. Doses are reviewed. PHYSICAL EXAMINATION: Patient is mechanically ventilated and sedated. Pulse 87, blood pressure 89/63, respiration 20, temperature pulse ox 90% on 50% FiO2. HEENT: Conjunctivae normal. NECK: No jugular venous distention. CARDIOVASCULAR: S1, S2 muffled. RESPIRATION: Breath sounds diminished at the bases. Scattered rhonchi. ABDOMEN: Soft, nontender. LEGS: No edema. No swelling. NERVOUS SYSTEM: No focal deficit. LABS: WBC 6, hemoglobin 6.1. Other labs are noted. Cultures are negative so far. ASSESSMENT: 1. Acute bilateral pneumonia, left more than the right, with possible aspiration pneumonia and sepsis, present on admission. 2. Acute respiratory arrest with mechanical ventilation, status post extubation and re- intubation last night. 3. Severe sepsis and septic shock, present on admission. 4. Rule out chronic liver disease. 5. Change in mental status, acute metabolic encephalopathy, multifactorial. 6. Acute hypglycemia. 7. Severe hypokalemia. 8. Severe hyponatremia. 9. Fungal urinary tract infection. 10.Severe protein-calorie malnutrition with body mass index of 20.2. 11.Diabetes mellitus, type 1, uncontrolled with hypoglycemia. 12.Hypoalbuminemia. 13.Increased white count. 14.Anemia of unknown etiology. 15.History of syncope. 16.Diabetes mellitus, type 2, insulin-dependent. 17.History of peripheral neuropathy. 18.History of migraine. 19.History of HPV. 20.History of MRSA. 21.History of tubal ligation. 22.Anxiety, depression. 23.Gait dysfunction. 24.FULL CODE. RECOMMENDATIONS AND DISCUSSION: I recommend to continue current medications, continue with the monitoring, symptomatic treatment. Continue with empiric antibiotics. Follow the cultures. Set of repeat cultures. Recommend ultrasound of the liver also, bedside. Otherwise, prognosis is guarded because of multiple complex medical issues. Further recommendations to follow. MMODL / IJN: [id number] / MTDD
[2021-05-24 19:53] LABS: Glucose,Whole Blood 85 mg/dL (75-99)
[2021-05-24] MEDS: NOREPINEPHRINE 4 MG in SODIUM CHLORIDE 0.9% 250 ML IV SCH (20:07)
[2021-05-24] MEDS: INSULIN DETEMIR (LEVEMIR) 100 UNIT/ML SYR SQ SCH (20:08)
[2021-05-24 21:31] LABS: Anisocytosis Slight; Basophils % (A) 0 %; Eosinophils # (A) 0.1 k/uL (0-0.7); Eosinophils % (A) 1 %; Hypochromasia Moderate; Lymphocytes # (A) 1.7 k/uL (1.0-4.8); Lymphocytes % (A) 22 %; MCH 27.8 pg (25.0-35.0); MCHC 32.8 g/dL (31.0-37.0); MCV 84.6 fL (80.0-100.0); Mean Platelet Volume 9.5; Monocytes # (A) 0.4 k/uL (0-1.0); Monocytes % (A) 5 %; Neutrophils # (A) 5.3 k/uL (1.3-7.7); Neutrophils % (A) 70 %; Platelet Count 212 k/uL (150-450); Poikilocytosis Moderate; RBC 3.43 m/uL (3.80-5.40); WBC 7.6 k/uL (3.8-10.6)
[2021-05-24 21:36] LABS: HGB 9.5 gm/dL (11.4-16.0)
[2021-05-24] MEDS: MONTELUKAST 10 MG TAB PO SCH (21:39)
[2021-05-24] MEDS: AMITRIPTYLINE HCL 10 MG TAB PO SCH (21:39)
[2021-05-24 23:27] LABS: Hepatitis A Antibody IgM Nonreactive (Nonreactive)
[2021-05-24 23:28] LABS: Hepatitis B Core IgM Nonreactive (Nonreactive); Hepatitis B Surface Antigen Nonreactive (Nonreactive); Hepatitis C IgG Antibody Nonreactive (Nonreactive)
[2021-05-25] MEDS: INSULIN ASPART (NovoLOG) 100 UNIT/ML VIAL SQ SCH ×6 (00:27→21:33)
[2021-05-25 00:28] LABS: Glucose,Whole Blood 91 mg/dL (75-99)
[2021-05-25 03:51] LABS: Glucose,Whole Blood 110 mg/dL (75-99)
[2021-05-25 05:20] LABS: ABG Base Excess 8.5 mmol/L; ABG HCO3 32 mmol/L (21-25); ABG Oxygen Saturation 99.3 % (94-97); ABG PCO2 43 mmHg (35-45); ABG PH 7.48 (7.35-7.45); ABG PO2 113 mmHg (83-108); ABG TCO2 33 mmol/L (19-24); Allen Test Performed? Yes
[2021-05-25 05:56] LABS: HCT 32.2 % (34.0-46.0); HGB 10.1 gm/dL (11.4-16.0); Hypochromasia Marked; MCHC 31.3 g/dL (31.0-37.0); MCV 86.2 fL (80.0-100.0); Mean Platelet Volume 8.3; Platelet Count 346 k/uL (150-450); Poikilocytosis Moderate; RBC 3.73 m/uL (3.80-5.40); RDW 15.9 % (11.5-15.5); WBC 6.7 k/uL (3.8-10.6)
[2021-05-25 05:58] LABS: ALT <6 U/L (4-34); AST 15 U/L (14-36); African American GFR (CKD) >90 (>60 ml/min/1.73 sqM); Albumin 1.7 g/dL (3.5-5.0); Alkaline Phosphatase 99 U/L (38-126); Anion Gap 0 mmol/L; Blood Urea Nitrogen 7 mg/dL (7-17); Calcium 7.1 mg/dL (8.4-10.2); Carbon Dioxide 30 mmol/L (22-30); Chloride 109 mmol/L (98-107); Glucose 127 mg/dL (74-99); Non-African American GFR(CKD) >90 (>60 ml/min/1.73 sqM); Potassium 3.5 mmol/L (3.5-5.1); Sodium 139 mmol/L (137-145); Total Bilirubin 0.5 mg/dL (0.2-1.3); Total Protein 5.4 g/dL (6.3-8.2)
[2021-05-25 06:19] LABS: Band Neutrophils % 9 %; Lymphocytes # (M) 1.74 k/uL (1.0-4.8); Monocytes # (M) 0.34 k/uL (0-1.0); Neutrophils % (M) 60 %; Nucleated Red Blood Cells 0 /100 WBC (0-0); Total Cells Counted 100
[2021-05-25] MEDS: VANCOMYCIN 1,000 MG in SODIUM CHLORIDE 0.9% 250 ML IVPB SCH (06:28)
[2021-05-25] MEDS: MEROPENEM 1 GM in SODIUM CHLORIDE 0.9% 100 ML IVPB SCH ×2 (06:28→14:45)
--- NOTE | 2021-05-25 06:58 | XR ---
EXAMINATION TYPE: XR chest 1V portable DATE OF EXAM: 05/25/2021 COMPARISON: 05/24/2021 HISTORY: Difficulty breathing TECHNIQUE: Single frontal view of the chest is obtained. FINDINGS: There is mild diffuse interstitial opacity in the left lung and partially consolidative op acities throughout the right lung essentially unchanged compared to previous. There is no pneumothorax. Small pleural effusions not excluded. The heart size is normal. Been no change in position of the right-sided PICC line or NG tube. ET tube is 2.5 cm above the jameel a. IMPRESSION: ET tube now 2.5 cm above the lucas. No change in the bilateral lung infiltrates right s ignificantly greater than left.
--- NOTE | 2021-05-25 08:22 | US ---
EXAMINATION TYPE: US liver DATE OF EXAM: 05/25/2021 COMPARISON: CT & US 2018 CLINICAL HISTORY: cirrhosis, bed side. Exam done portable in ICU EXAM MEASUREMENTS: Liver Length: 15.5 cm Gallbladder Wall: 0.7 cm CBD: 0.4 cm Right Kidney: 11.6 x 4.6 x 6.1 cm Pancreas: wnl Liver: wnl Gallbladder: no stones seen, thickened wall, small amount of pericholecystic fluid seen Evidence for sonographic Lewis's sign: n/a CBD: wnl Right Kidney: wnl Small amount of fluid seen in RUQ IMPRESSION: Findings consistent with acute acalculous cholecystitis.
[2021-05-25] MEDS: ESCITALOPRAM 20 MG TAB PO SCH (09:05)
[2021-05-25] MEDS: ZINC SULFATE 220 MG CAP PO SCH (09:05)
[2021-05-25] MEDS: CHLORHEXIDINE GLUCONATE 15 ML CUP MUCOUS MEM SCH ×2 (09:05→21:41)
[2021-05-25] MEDS: NYSTATIN 100,000 UNIT/ML SUSP 500,000 UNIT/5 ML CUP PO SCH ×4 (09:05→21:41)
[2021-05-25] MEDS: THIAMINE 100 MG TAB PO SCH ×2 (09:05→16:45)
[2021-05-25] MEDS: PANTOPRAZOLE 40 MG/10 ML VIAL IVP SCH (09:05)
[2021-05-25] MEDS: ENOXAPARIN 40 MG/0.4 ML SYRINGE SQ SCH (09:05)
[2021-05-25] MEDS: CHOLECALCIFEROL 25 MCG (1000 IU) TABLET PO SCH (09:05)
[2021-05-25] MEDS: PREGABALIN 75 MG CAP PO SCH ×3 (09:05→21:40)
[2021-05-25] MEDS: MAG HYDROX/AL HYDROX/SIMETH 30 ML, LIDOCAINE VISCOUS 30 ML, diphenhydrAMINE ELIXIR 75 M... PO SCH ×12 (09:06→21:42)
[2021-05-25] MEDS: FLUCONAZOLE IN NACL,ISO-OSM 100 MG in SALINE 1 50ML.BAG IVPB SCH (09:07)
[2021-05-25] MEDS: POTASSIUM BICARBONATE/CIT AC 20 MEQ TABLET.EFF NG-TUBE SCH ×2 (09:08→09:09)
[2021-05-25 09:10] LABS: Glucose,Whole Blood 168 mg/dL (75-99)
[2021-05-25] MEDS ORDERED: FUROSEMIDE 10 MG/ML 4 ML VIAL IV STA (10:08)
--- NOTE | 2021-05-25 10:08 | P.PN ---
Subjective Progress Note Date: 05/25/21 This is a 36-year-old old female, seen in the emergency room, room 10. The patient was just discharged out of the hospital yesterday, May 16. The patient apparently returned to the emergency room, with a low blood sugar. She was brought in by EMS. She apparently has no memory of why she was in the hospital. She apparently was hungry when she came into the ER. She complained of back pain. Her blood glucose on arrival was 36. The patient was in the hospital recently for a left-sided pneumonia. The patient also has a history of diabetes with diabetic ketoacidosis. The patient is currently on O2 at 2 L. She's getting D5 0.9 at 75 mL an hour. She was given Augmentin, but we discontinued it in favor of Zosyn. The patient has a history of diabetes, diabetic neuropathy, chronic low back pain, migraine cephalgia, chronic constipation, and prior MRSA infection. White count 21.9, hemoglobin 8.8, hematocrit 28.7, and platelet count 474,000. Sodium 129, potassium 4.4, chlorides 102, CO2 24, anion gap 3, BUN 7, with a creatinine of 0.29. Albumin is 2. Urine is light yellow in color, and cloudy, leukocyte esterase being small positive, 9 WBCs, and rare bacteria. Drug screen is negative. Testing for ling virus was negative. Chest x-ray shows bilateral pneumonia, with dense consolidation within the left lung, and much less infiltrate in the right base. Progress note dated 05/18/2021. This is a 36-year-old female, who was seen in the emergency department in consultation yesterday, and room 10. The patient was recently discharged from the hospital on May 16. She was brought back in for mental status changes, and a low blood sugar. Apparently her blood glucose was only 36. Her prior admission was for diabetic ketoacidosis, and left-sided ammonia. Currently, she is back to her normal self. The patient is on 4 L nasal O2. She's not complaining of any respiratory distress or difficulty. She has a dry nonproductive cough. She was placed on Zosyn yesterday by our team. She was seen by infectious diseases. She has a history of diabetes, diabetic neuropa thy, chronic low back pain, migraine cephalgia, chronic constipation, and prior MRSA infection. Currently, white count 19.3, he will been 7.2, hematocrit 24, and platelet count 449,000. Sodium 133, potassium 3.8, chlorides 100, CO2 21, anion gap 12, UN 7, and creatinine 0.4. Pro-calcitonin level is 0.15. C- reactive protein is 5.7. On today's evaluation of 05/19/2021, the patient is doing well. The patient is awake and alert. No signs of any significant respiratory distress. The patient was restarted back on IV Zosyn. The chest x-ray showed extensive consolidation of the left lung and the CAT scan of the chest also confirmed the same findings. The patient was Hospital as because of hypoglycemia. The patient altered mentation and she recovered fully. She is currently on Levemir 20 units along with sliding scale coverage. She is also on D5 water running at 100 mL an hour. Antibiotic coverage with IV Zosyn. Blood work shows a white cell count 12.4 with hemoglobin 8.5, BUN is at 5 with a creatinine of 0.4 and his sodium is at 134 with a potassium level of 3.3. The COVID 19 test that was negative. Urine drug screen was negative. Pro-calcitonin level has been consistently low. A focused on level was at 0.15. The patient currently is on oxygen 4 L per minute nasal cannula. She is afebrile. She is medically and hemodynamically stable at this point in time. She has poor dental conditions and poor oral hygiene. She has also developed some ulceration over the tip of the tongue probably related to candidal infection. On 2021, the patient's condition decompensated and the patient got transferred to the intensive care unit for respiratory support. Overnight, the patient became progressively more hypoxemic and short of breath. She was given a dose of Lasix 40 mg IV push without any much improvement. She was becoming also more lethargic and short of breath. She got transferred to the ICU. Currently she is on a BiPAP at a pressure of 12/6 cm of water with an FiO2 of 100%. Her Pulse Ox Is 99%. A Chest X-Ray Showed Extensive Consolidation of the Left Lung. There Are Some Air Bronchograms on the Left. At the Same Time There Are Some Air Pockets in the Left Napier Which Makes Me Concerned about an Underlying Cavitation/Abscess Formation. At the Same Time, There Is Progression of the Airspace Disease and There Is Development of New Patchy Opacities in the Right Midlung and the Right Lower Lung. Note That the Patient Was Covered with IV Zosyn for Any Potential Aspiration Pneumonia.Pro-Calcitonin Level Was at 0.15. Currently She Is on BiPAP Which Is Quite Comfortable. She instructed BiPAP dependent. The patient easily decompensates and desaturates 1 she's taken off the BiPAP. Note that she also had extensive oropharyngeal candidiasis and ulceration of the tongue for which she was given Diflucan. I added cold solution on her yesterday. She is unable to do adequate oral care as the patient is BiPAP dependent. In terms of IV fluids, the patient is on D5 water running at 40 mL an hour. This was started due to concerns of underlying episodes of hypoglycemia. She is a very brittle diabetic. Her blood sugars are all over the place. She is currently on Levemir insulin 20 units a day along with a sliding scale coverage. The Levemir insulin was given today. She is not eating much at this point in time as the patient is BiPAP dependent. Other blood work, her white cell count of 19.0 which is higher compared to yesterday. Hemoglobin is at 7.8. The blood gas while on 100% BiPAP initially showed a pH of 7.37 with a pCO2 of 46 and pO2 of 50. Current saturations up to 90%. Sodium is at 130 with a potassium level of 3.4 and a serum bicarb of 23 with a mean of 4 and a creatinine of 0.4. Her albumin is down to 2.0 with a total protein of 5.7. Cultures for now are negative in terms of blood culture. Note that the [facility] ient had MRSA and E. coli and strep in her urine back in 05/09/2021. She has also has had a previous MRSA wound infection involving the scalp. She is arousable. She is a bit lethargic. No agitation. On 05/21/2021 patient seen in follow-up in the intensive care unit, she currently remains on BiPAP support as of 12 and 600%, and her pulse ox is 99- 100%, she is awake and alert, oriented 3, she is extremely thirsty and hungry, does not appear to be in any acute distress, no complaints of worsening dyspnea, she seems to be breathing comfortably, nursing staff reports that patient was able to come off the BiPAP support to take sips of water, oral care, and pills, and patient tolerates being off BiPAP support better although she does desaturate. She is afebrile, hemodynamically she is stable, she remains on a combination of meropenem and vancomycin and Diflucan which were modified yeste rday. Blood cultures have been negative thus far, she's been afebrile, no hemoptysis, no complaints of chest discomfort. Produced 5.2 L in urine output in response to Lasix, and she is in -3.8 L net fluid balance over the last 24 hours, today's chest x-ray has been reviewed, showing stable diffuse bilateral airspace disease. Absent been reviewed, white blood cell count is 20.2, hemoglobin is 7.9, platelet count is 482, serum sodium is 133, potassium 3.7, chloride is 104, CO2 is 24, B1 is 5 creatinine 0.42. Her last pro-calcitonin level from 05/18/2021 was 0.15. On 05/22/2021 patient seen in follow-up in intensive care unit, last night during an episode of getting cleaned up after having a bowel movement patient complained of not feeling well, she certainly became unresponsive, she started desaturating, her respirations became very agonal and rapid response team was called for ERIC BLUE. There was no seizure activity noted prior to the event, patient was not desaturating just prior to that, no arrhythmias were noted other than bradycardia after she had started desaturating. During the code patient did not lose her pulse, her pulse ox was down to 66% on high flow Airvo, she was emergently intubated and placed on mechanical ventilator, chest x-ray shows severe ARDS, she was hypotensive and received IV fluids and received norepinephrine infusion which is currently still infusing at 0.06 mics per kilo per minute, she was not hypoglycemic and her blood sugar at that time was 177, she had D5W infusing at 40, and she was starting to take in some oral intake. This morning she is sedated, intubated on assist control mode of ventilation with a rate of 16, tidal, 350, FiO2 is currently at 50% and PEEP of 8, this morning's blood gas shows pO2 of 102, pCO2 of 43, pH is 7.34, this was done on 70% FiO2 which had since been dropped down to 50%, this morning's chest x-ray was reviewed showing moderately severe pulmonary air space edema, without significant change compared to yesterday. The patient is in sinus mechanism, blood pressure is 112/72, currently on meropenem, vancomycin and Diflucan for aspiration pneumonia, blood cultures have been negative, patient has not been able to produce a sputum culture for us. Her labs reveal white blood cell count of 26.8 which is increased since yesterday from 20.2, hemoglobin of 7.9, platelet count of 530, sodium is 134, potassium is 4.0, chloride is 107, CO2 is 21, BUN is 7 creatinine 0.52, her glucose this morning is 203, LFTs were within normal limits, her last pro-calcitonin level from a few days ago was 0.15. Yesterday patient was given a liter bolus after she became intubated, she is producing urine in the order of 30-75 ML per hour, her Lasix is on hold. On 05/23/2021 patient seen in follow-up in the intensive care unit, she is sedated, intubated on mechanical ventilator with a assist control mode of ventil ation and rate of 16, tidal emesis 50, FiO2 of 60% and PEEP of 8, this morning's blood gas was reviewed showing O2 of 154, pCO2 of 45, and pH of 7.37. Is currently on Diprivan at 40 mics per kilo per minute, Levaquin is at 3 mics per minute, 0.9 saline at any ML per hour. Today's chest x-ray showing persistent but improving bilateral airspace disease, right greater than left. There is some blood work has been reviewed showing white blood cell count of 13.4, hemoglobin of 7.3, sodium of 140, potassium is 3.9, chloride is 110, CO2 of 22, BUN of 6, creatinine of 0.62, this morning his glucose was 221. Recent have fevers overnight with a T-max of 101.5F. She currently remains on combination of meropenem, vancomycin and Diflucan. Patient is status post bronchoscopy and bronchoalveolar lavage on 05/22/2021, and BAL cultures are still pending. Gram stain showed no organisms thus far. Patient is tolerating tube feedings with vital HP at a rate of 20 ML per hour, Orellana catheter is in place, and patient is producing urine in the order of 50 to 100 mL per hour. On 05/24/2021 , is being seen for a follow-up. Note that the patient was extubated successfully yesterday. Extubation process went fine and the patient was doing very well on a nasal cannula oxygen. At around midnight, the patient acutely decompensated. She became short of breath and hypoxic. Her blood. This was done that showed acute respiratory acidosis with a pH of 7.24 with a pCO2 of 67 and pO2 of 80 and this was identified to 100%. He became acutely unresponsive and significant respiratory distress was noted by the nursing staff. At that point, it was decided that he intubated the patient. The patient is currently intubated on a mechanical ventilator. The patient is sedated with propofol which is running at 30 mcg/kg per minute to maintain synchrony with the mechanical ventilator. She is on assist control mode at the rate of 25, tidal volume of 350, FiO2 has been weaned down to 50% and the luis miguel ent currently is in a PEEP of 10. Post intubation blood gases showed a pH of 7.48 with a pCO2 of 43 and pO2 of more than 400 and this was on FiO2 100%. Morning blood work also showed a drop in hemoglobin down to 6.1 from a baseline of 7.3. No evidence of any acute bleeding. No evidence of any hematemesis or melanotic stools. The patient will be given a total of 2 units of packed RBCs. Also, the patient is covered with broad-spectrum antibiotics patient remains on a combination of meropenem, vancomycin and Diflucan. The cultures from the bronchioloalveolar lavage was done earlier came back all negative. The repeat chest x-ray from today is showing adequate placement of the orotracheal tube. The patient continues to have bilateral pulmonary infiltrates. However, there is significant interval improvement in the bilateral pulmonary infiltrates compared to earlier chest x-rays. The white cycles of 7.12. Renal function is stable with a creatinine of 0.5 and a BUN of 7. Sodium level is at 144. Potassium level is at 3.2 and a K level will be replaced. The patient was restarted again on enteral feeding and this will be restarted today. Meanwhile, in terms of blood sugar control, the patient is receiving Levemir insulin 20 units once a day and a sliding scale coverage. Blood sugars have been maintained adequately and her most recent blood sugar currently is at 172. Her vancomycin felt level from today was 28. 05/25/2021, the patient is awake even on a low dose of propofol at 30 mcg/kg per minute. She is following commands. She wants to get the tube out. She is on a mechanical ventilator at the rate of 25, tidal volumes of 350, PEEP is at 10 and FiO2 is currently at 40%. PH is at 7.48 with a pCO2 of 43 and pO2 of 113. The lavage from the lungs did not yield any microbial growth. The patient continues to have diffuse bilateral pulmonary infiltrates and there is extensive consolidation bilaterally more so on the right. White secondary to 6.7. Hemoglobin is at 10.1 platelet count is at 356. Creatinine stable at 0.4. BUN is at 7. Sodium is at 139. LFTs are normal. Blood sugars at 168. The patient remains on a broad-spectrum antibiotic coverage. The patient is receiving IV Diflucan, IV vancomycin and IV meropenem. There was always the concern of aspiration in this patient as the patient developed initially extensive left lung consolidation subsequently infiltrates moved to the right. The bronchoscopy was done yielded no significant respiratory secretions or microbial growth at this point in time. She is on Levemir insulin and a sliding scale coverage. She is on no pressors for now. She is is slightly positive over the past 24 hours. The patient was receiving enteral feeding for nutritional support. She is currently on vital high protein at the rate of 20 mL an hour. No hypoglycemic attacks. As mentioned, she is easily arousable and she is moving all 4 extremities without any limitation. No fever. No significant leukocytosis. All of the cultures are negative. She remains on D5W at the rate of 75 mL an hour. No reported abdominal pain. LFTs are normal. Ultrasound abdomen showed a questionable gallbladder wall thickening and a calculus cholecystitis. Objective - Vital Signs Vital signs: Vital Signs Temp 97.6 F 05/25/21 08:00 Pulse 86 05/25/21 09:00 Resp 25 H 05/25/21 09:00 BP 116/81 05/25/21 09:00 Pulse Ox 97 05/25/21 09:00 Intake & Output 05/24/21 05/25/21 05/25/21 18:59 06:59 18:59 Intake Total 1458.749 742.156 440 Output Total 800 420 160 Balance 658.749 322.156 280 Intake: IV 429 340 230 Dextrose 5% in Water 1, 240 190 000 ml @ 40 mls/hr IV . Q24H [facility] Rx#:[id number] Fluconazole in NaCl,Iso- 50 Osm 100 mg In Saline 1 50ml.bag @ 50 mls/hr IVPB DAILY [facility] Rx#:[id number] Meropenem 1 gm In Sodium 200 100 Chloride 0.9% 100 ml @ 33 .3 mls/hr IVPB Q8H [facility] Rx #:[id number] NS 179 40 Intake, IV Titration 109.749 92.156 Amount Norepinephrine 4 mg In 39.136 15.296 Sodium Chloride 0.9% 250 ml @ 0.05 MCG/KG/MIN 9. 601 mls/hr IV .Q24H [facility] Rx#:[id number] propofoL 1,000 mg In 70.613 76.86 Empty Bag 1 bag @ Titrate IV .Q0M [facility] Rx#: [id number] Tube Feeding 140 220 60 Blood Product 620 Rc As-1 Unit 310 [id number] Rc As-1 Unit 310 [id number] Other 160 90 150 Output: Urine 800 420 160 Other: Voiding Method Indwelling Catheter Indwelling Catheter - Exam No acute distress, currently intubated on a mechanical ventilator. Orotracheal and orogastric tube are both in place. The patient is an assist-control mode of mechanical ventilation. She is sedated with propofol. She is aroudable HEENT examination is grossly unremarkable. The patient has ulcerative of the tongue and the patient has a very poor dental condition and poor oral hygiene and multiple ulcers on her tongue. Neck supple. Full range of motion. No adenopathy thyromegaly or neck vein distention. Cardiovascular examination reveals regular rhythm rate. S1-S2 normal. No S3 or S4. No discernible murmur noted. Lungs reveal diminished breath sounds on the left. Scattered rhonchi bilaterally. No wheezes or crackles. Abdomen soft bowel sounds are heard. No masses or tenderness. Extremities are intact. No cyanosis clubbing or edema. Skin is without rash or lesion. Neurologic examination is limited as the patient is currently sedated. the patient was awake and alert and appropriate. - Labs CBC & Chem 7: 05/25/21 04:52 05/25/21 04:43 Labs: Abnormal Lab Results - Last 24 Hours (Table) 05/24/21 05/24/21 05/24/21 Range/Units 07:29 11:26 11:27 RBC (3.80-5.40) m/uL Hgb (11.4-16.0) gm/dL Hct (34.0-46.0) % RDW (11.5-15.5) % ABG pH (7.35-7.45) ABG pO2 (83-108) mmHg ABG HCO3 (21-25) mmol/L ABG Total CO2 (19-24) mmol/L ABG O2 Saturation (94-97) % Chloride (98-107) mmol/L Creatinine (0.52-1.04) mg/dL Glucose (74-99) mg/dL POC Glucose (mg/dL) <20 L <20 L (75-99) mg/dL Calcium (8.4-10.2) mg/dL Total Protein (6.3-8.2) g/dL Albumin (3.5-5.0) g/dL Procalcitonin (0.02-0.09) ng/mL Crossmatch See Detail 05/24/21 05/24/21 05/24/21 Range/Units 11:42 14:53 14:56 RBC (3.80-5.40) m/uL Hgb (11.4-16.0) gm/dL Hct (34.0-46.0) % RDW (11.5-15.5) % ABG pH (7.35-7.45) ABG pO2 (83-108) mmHg ABG HCO3 (21-25) mmol/L ABG Total CO2 (19-24) mmol/L ABG O2 Saturation (94-97) % Chloride (98-107) mmol/L Creatinine (0.52-1.04) mg/dL Glucose (74-99) mg/dL POC Glucose (mg/dL) 126 H 33 L 31 L (75-99) mg/dL Calcium (8.4-10.2) mg/dL Total Protein (6.3-8.2) g/dL Albumin (3.5-5.0) g/dL Procalcitonin (0.02-0.09) ng/mL Crossmatch 05/24/21 05/24/21 05/24/21 Range/Units 15:12 17:23 17:23 RBC (3.80-5.40) m/uL Hgb (11.4-16.0) gm/dL Hct (34.0-46.0) % RDW (11.5-15.5) % ABG pH (7.35-7.45) ABG pO2 (83-108) mmHg ABG HCO3 (21-25) mmol/L ABG Total CO2 (19-24) mmol/L ABG O2 Saturation (94-97) % Chloride 112 H (98-107) mmol/L Creatinine 0.40 L (0.52-1.04) mg/dL Glucose 69 L (74-99) mg/dL POC Glucose (mg/dL) 145 H (75-99) mg/dL Calcium 7.2 L (8.4-10.2) mg/dL Total Protein (6.3-8.2) g/dL Albumin (3.5-5.0) g/dL Procalcitonin 0.48 H (0.02-0.09) ng/mL Crossmatch 05/24/21 05/24/21 05/24/21 Range/Units 17:25 17:43 20:50 RBC 3.43 L (3.80-5.40) m/uL Hgb 9.5 L D (11.4-16.0) gm/dL Hct 29.0 L (34.0-46.0) % RDW 16.0 H (11.5-15.5) % ABG pH (7.35-7.45) ABG pO2 (83-108) mmHg ABG HCO3 (21-25) mmol/L ABG Total CO2 (19-24) mmol/L ABG O2 Saturation (94-97) % Chloride (98-107) mmol/L Creatinine (0.52-1.04) mg/dL Glucose (74-99) mg/dL POC Glucose (mg/dL) 59 L 155 H (75-99) mg/dL Calcium (8.4-10.2) mg/dL Total Protein (6.3-8.2) g/dL Albumin (3.5-5.0) g/dL Procalcitonin (0.02-0.09) ng/mL Crossmatch 05/25/21 05/25/21 05/25/21 Range/Units 03:50 04:43 04:52 RBC 3.73 L (3.80-5.40) m/uL Hgb 10.1 L (11.4-16.0) gm/dL Hct 32.2 L (34.0-46.0) % RDW 15.9 H (11.5-15.5) % ABG pH (7.35-7.45) ABG pO2 (83-108) mmHg ABG HCO3 (21-25) mmol/L ABG Total CO2 (19-24) mmol/L ABG O2 Saturation (94-97) % Chloride 109 H (98-107) mmol/L Creatinine 0.47 L (0.52-1.04) mg/dL Glucose 127 H (74-99) mg/dL POC Glucose (mg/dL) 110 H (75-99) mg/dL Calcium 7.1 L (8.4-10.2) mg/dL Total Protein 5.4 L (6.3-8.2) g/dL Albumin 1.7 L (3.5-5.0) g/dL Procalcitonin (0.02-0.09) ng/mL Crossmatch 05/25/21 05/25/21 Range/Units 05:14 09:08 RBC (3.80-5.40) m/uL Hgb (11.4-16.0) gm/dL Hct (34.0-46.0) % RDW (11.5-15.5) % ABG pH 7.48 H (7.35-7.45) ABG pO2 113 H (83-108) mmHg ABG HCO3 32 H (21-25) mmol/L ABG Total CO2 33 H (19-24) mmol/L ABG O2 Saturation 99.3 H (94-97) % Chloride (98-107) mmol/L Creatinine (0.52-1.04) mg/dL Glucose (74-99) mg/dL POC Glucose (mg/dL) 168 H (75-99) mg/dL Calcium (8.4-10.2) mg/dL Total Protein (6.3-8.2) g/dL Albumin (3.5-5.0) g/dL Procalcitonin (0.02-0.09) ng/mL Crossmatch Microbiology - Last 24 Hours (Table) 05/24/21 15:45 Gram Stain - Preliminary Sputum Sputum Culture - Preliminary 05/24/21 14:15 Urine Culture - Preliminary Urine,Catheterized 05/24/21 17:23 Blood Fungal Culture - Preliminary Blood 05/23/21 09:13 Blood Culture - Preliminary Blood No Growth after 24 hours 05/22/21 03:05 Gram Stain - Final Sputum Sputum Culture - Final 05/23/21 08:57 Blood Culture - Preliminary Blood No Growth after 24 hours Assessment and Plan Plan: 1 acute hypoxic respiratory failure , and the patient developed worsening and progression of the pneumonia and there are areas of patchy consolidation or airspace disease involving the right midlung in the right upper lobe and the right lower lobe in addition to extensive consolidation of the left lung with possibly some cavitation. The chest x-ray continues to improve. The patient was extubated on 05/23/2021 to be reintubated within less than 24 hours. The exact cause wasn't intubation is not clear. The patient went to a acute hypoxic/hypercapnic respiratory arrest and she had to be reintubated. The chest x-ray still showing diffuse bilateral pulmonary infiltrates. Nevertheless, her oxygenation is stable. Lung mechanics are good and the patient could be potentially extubated today. She remains on broad-spectrum antibiotics. All of the cultures are negative thus far. 2 History of diabetes, with a recent episode of diabetic ketoacidosis, recovered. The patient continues to have a very brittle blood sugar. She is on Levemir insulin 20 units along with a sliding scale insulin coverage 3 hypoglycemia with secondary Mental status changes. 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 4 oropharyngeal candidiasis, currently on Diflucan 5 History of syncope. 6 History of diabetic neuropathy. 7 History of migraine cephalgia. 8 Prior history of MRSA infection. 9 Chronic constipation. 10 Chronic low back pain. 11 tongue ulceration and the patient is currently on Diflucan for oropharyngeal candidiasis. 12 chronic anemia with interval drop in hemoglobin down to 6.1, without evidence of any acute bleeding. Plan Continue ventilator management and support for now Drop the PEEP to 5 DC sedation check weaning parameters May need to drop the Levemir insulin dose to 10 units and keep the D5 water as the patient may potentially get extubated and as such enteral feeding may be discontinued with the removal of the NG tube. We need to keep a very close eye on her blood sugar control hemodynamically stable Results of the bronchioloalveolar lavage have been negative thus far We'll continue the same antibiotic coverage. For now, the patient is on a combination of IV Merrem and vancomycin covering for gram-negative resistant microorganisms in addition to vancomycin covering for staph pneumonia. The left lung consolidations remain unchanged and there is some early cavitation left upper lobe. Repeat pro-calcitonin level o.48 continue Diflucan The patient is cachectic with a BMI of 20.6 Poor dental on oral hygiene Lasix and given a dose of LasixLasix 40 mg IVP Condition is critical. The mother will be informed of these changes. We'll continue to follow. Critical care evaluation that was done and more than 30 minutes. Time with Patient: Greater than 30
[2021-05-25 11:38] LABS: Glucose,Whole Blood 192 mg/dL (75-99)
[2021-05-25] MEDS: MULTIVITAMINS, THERA 1 EACH TAB PO SCH (11:57)
[2021-05-25] MEDS: FOLIC ACID 1 MG TAB PO SCH (11:57)
[2021-05-25 16:19] LABS: Glucose,Whole Blood 184 mg/dL (75-99)
--- NOTE | 2021-05-25 17:31 | PN ---
PROGRESS NOTE DATE OF SERVICE: 05/25/2021 This 36-year-old woman was admitted with acute pneumonia, left more than the right, possibly aspiration in nature. She was extubated, but the patient was re- intubated because of hypoxic respiratory failure. The patient undergoing weaning parameters at this time. The patient also is suspected to have chronic liver disease. Liver ultrasound showed possible acute on chronic cholecystitis also. Patient is on broad- spectrum IV antibiotics. Cultures are negative so far. Past medical history reviewed. Review of systems could not be taken; the patient is mechanically ventilated and waking up. CURRENT MEDICATIONS: Reviewed. They include Tylenol, Elavil, Peridex, vitamin D2, Lovenox, Lexapro, fluconazole, Imodium, meropenem. PHYSICAL EXAMINATION: Patient is on mechanical ventilation. Pulse 93, blood pressure 83/52, respiration 25, temperature normal, pulse ox 92% on mechanical ventilation, 40% FiO2. HEENT: Conjunctivae normal. NECK: No jugular venous distention. CARDIOVASCULAR: S1, S2 muffled. RESPIRATION: Breath sounds diminished at the bases. A few scattered rhonchi. ABDOMEN: Soft, nontender. NERVOUS SYSTEM: ntd LEGS: No edema. No swelling. LAB STUDIES: WBC 6.7, hemoglobin 10.1. Accu-Cheks noted. Albumin 1.7. The acute hepatitis panel is nonreactive. Herpes simplex type 1 isolated from the viral cultures. The most recent chest x-ray which was reviewed personally by me showed bilateral extensive pneumonia, actually right more than the left at this time. ASSESSMENT: 1. Acute bilateral pneumonia, right more than the left, with possible aspiration with sepsis, present on admission. 2. Acute respiratory difficulty and acute hypoxic respiratory failure with mechanical ventilation, status post extubation and re-intubation two days ago. 3. Severe sepsis, septic shock, present on admission. 4. Possible underlying chronic liver disease. 5. Acute on chronic cholecystitis. 6. Change in mental status, acute metabolic encephalopathy, multifactorial. 7. Acute hypoglycemia. 8. Herpes simplex type 1 from the bronchial washings. 9. Severe hypokalemia. 10.Severe hyponatremia. 11.Fungal urinary tract infection. 12.Severe protein-calorie malnutrition with body mass index of 20.2. 13.Diabetes mellitus, type 2, uncontrolled, with hypoglycemia. 14.Hypoalbuminemia. 15.Increased white count. 16.Anemia of unknown etiology. 17.History of syncope. 18.Diabetes mellitus, type 2, insulin-dependent. 19.History of peripheral neuropathy. 20.History of migraine. 21.History of HPV. 22.History of MRSA. 23.History of tubal ligation. 24.History of anxiety, depression. 25.Gait dysfunction. 26.FULL CODE. RECOMMENDATIONS AND DISCUSSION: I recommend to continue current medications, continue with the monitoring, symptomatic treatment. Otherwise at this time I would also recommend further evaluation, cultures. Recommend acyclovir IV. The patient has some lip lesions also. Closely follow with multiple consultants. Check HIV as well. Further recommendations to follow. MMODL / IJN: [id number] / PEGGY
--- NOTE | 2021-05-25 20:07 | PN ---
PROGRESS NOTE DATE OF SERVICE: 05/25/2021 REASON FOR FOLLOWUP: Pneumonia. INTERVAL HISTORY: The patient is a 36-year-old female who presented to the hospital with an episode of unresponsiveness and concern for aspiration pneumonia. The patient subsequently did have worsening of her respiratory status, requiring intubation x2. Currently on the vent. On today's evaluation, 05/25/2021, the patient is afebrile. The patient seems to be walking up and did respond to some verbal commands. She remains intubated on the vent. FiO2 is currently at 40%. No significant purulent secretions through the ET or diarrhea or any other changes reported by the nursing staff. PHYSICAL EXAMINATION: Blood pressure 85/54 with a pulse of 91, temperature 97.8. She is 94% on 40% FiO2. General description is a middle-aged female intubated on the vent. Respiratory system: Unlabored breathing, decreased intensity of breath sounds. No wheeze. Heart S1, S2. Regular rate and rhythm. Abdomen soft, no tenderness. LABS: Hemoglobin is 10.1, white count 6.7. Blood cultures so far negative. Bronchial wash so far negative. DIAGNOSTIC IMPRESSION AND PLAN: 1. Patient with acute respiratory failure, likely multifactorial, with concern for possible component of aspiration pneumonia. The patient's bronch culture has been negative for any resistant pathogen. Antibiotic will be adjusted to Zosyn DC the meropenem and the vancomycin. 2. Patient with crusted lip lesion ? herpetic , per discussion with mother pt luciano have history of cold sores will hold on acyclovir. MMODL / IJN: [id number] / PEGGY
[2021-05-25 20:20] LABS: Glucose,Whole Blood 199 mg/dL (75-99)
[2021-05-25] MEDS: MONTELUKAST 10 MG TAB PO SCH (21:40)
[2021-05-25] MEDS: AMITRIPTYLINE HCL 10 MG TAB PO SCH (21:41)
[2021-05-25] MEDS: INSULIN DETEMIR (LEVEMIR) 100 UNIT/ML SYR SQ SCH (21:41)
[2021-05-25] MEDS ORDERED: VANCOMYCIN TROUGH DUE 1 EACH MISC MISCELLANE ONE (23:00)
[2021-05-25 23:46] LABS: Glucose,Whole Blood 197 mg/dL (75-99)
[2021-05-26] MEDS: INSULIN ASPART (NovoLOG) 100 UNIT/ML VIAL SQ SCH ×6 (00:50→17:45)
[2021-05-26] MEDS: PIPERACILLIN-TAZOBACTAM 3.375 GM in SODIUM CHLORIDE 0.9% 100 ML IVPB SCH ×4 (00:50→23:22)
[2021-05-26] MEDS: NOREPINEPHRINE 4 MG in SODIUM CHLORIDE 0.9% 250 ML IV SCH (05:34)
[2021-05-26 06:02] LABS: ALT 6 U/L (4-34); AST 15 U/L (14-36); African American GFR (CKD) >90 (>60 ml/min/1.73 sqM); Albumin 1.6 g/dL (3.5-5.0); Alkaline Phosphatase 88 U/L (38-126); Anion Gap -1 mmol/L; Blood Urea Nitrogen 8 mg/dL (7-17); Calcium 6.9 mg/dL (8.4-10.2); Carbon Dioxide 33 mmol/L (22-30); Chloride 105 mmol/L (98-107); Glucose 108 mg/dL (74-99); Non-African American GFR(CKD) >90 (>60 ml/min/1.73 sqM); Potassium 3.4 mmol/L (3.5-5.1); Sodium 137 mmol/L (137-145); Total Bilirubin 0.4 mg/dL (0.2-1.3); Total Protein 5.2 g/dL (6.3-8.2)
[2021-05-26 06:20] LABS: Anisocytosis Slight; HCT 30.8 % (34.0-46.0); HGB 9.8 gm/dL (11.4-16.0); Hypochromasia Marked; MCH 27.3 pg (25.0-35.0); MCHC 31.7 g/dL (31.0-37.0); MCV 86.2 fL (80.0-100.0); Platelet Count 339 k/uL (150-450); Poikilocytosis Moderate; RBC 3.58 m/uL (3.80-5.40); WBC 7.3 k/uL (3.8-10.6)
[2021-05-26 06:39] LABS: ABG Base Excess 13.1 mmol/L; ABG HCO3 36 mmol/L (21-25); ABG Oxygen Saturation 92.4 % (94-97); ABG PCO2 41 mmHg (35-45); ABG PH 7.54 (7.35-7.45); ABG TCO2 37 mmol/L (19-24); Allen Test Performed? Yes
[2021-05-26 06:40] LABS: ABG PO2 55 mmHg (83-108)
[2021-05-26] MEDS: THIAMINE 100 MG TAB PO SCH ×2 (06:42→16:34)
[2021-05-26 07:08] LABS: Anisocytosis (M) Present; Band Neutrophils % 5 %; Eosinophils # (M) 0.15 k/uL (0-0.7); Lymphocytes # (M) 1.39 k/uL (1.0-4.8); Metamyelocytes # (M) 0.07 k/uL (0); Metamyelocytes % 1 %; Monocytes # (M) 0.22 k/uL (0-1.0); Neutrophils % (M) 70 %; Nucleated Red Blood Cells 0 /100 WBC (0-0); Polychromasia Present; Total Cells Counted 100
--- NOTE | 2021-05-26 07:40 | XR ---
EXAMINATION TYPE: XR chest 1V portable DATE OF EXAM: 05/26/2021 CLINICAL HISTORY: Difficulty breathing progress study. TECHNIQUE: Single AP portable semiupright view of the chest is obtained. COMPARISON: Chest x-ray from one day earlier and older studies. FINDINGS: Stable endotracheal and orogastric tubes. Stable right-sided PICC line. Bilateral multifocal and confluent opacities redemonstrated. Cardiac silhouette size is stable and wi thin normal limits. Osseous structures are intact. Cholecystectomy clips redemonstrated. IMPRESSION: Bilateral multifocal and confluent opacities redemonstrated consistent with covid-19 infe ction and/or ARDS is redemonstrated. No significant change from one day earlier.
[2021-05-26] MEDS: PANTOPRAZOLE 40 MG/10 ML VIAL IVP SCH (09:21)
[2021-05-26] MEDS: CHLORHEXIDINE GLUCONATE 15 ML CUP MUCOUS MEM SCH ×2 (09:21→20:15)
[2021-05-26] MEDS: ENOXAPARIN 40 MG/0.4 ML SYRINGE SQ SCH (09:21)
[2021-05-26] MEDS: POTASSIUM BICARBONATE/CIT AC 20 MEQ TABLET.EFF NG-TUBE SCH ×2 (09:22→09:31)
[2021-05-26] MEDS: CHOLECALCIFEROL 25 MCG (1000 IU) TABLET PO SCH (09:22)
[2021-05-26] MEDS: PREGABALIN 75 MG CAP PO SCH ×3 (09:22→21:26)
[2021-05-26] MEDS: ZINC SULFATE 220 MG CAP PO SCH (09:22)
[2021-05-26] MEDS: ESCITALOPRAM 20 MG TAB PO SCH (09:22)
[2021-05-26] MEDS: NYSTATIN 100,000 UNIT/ML SUSP 500,000 UNIT/5 ML CUP PO SCH ×4 (09:25→21:26)
[2021-05-26] MEDS: MAG HYDROX/AL HYDROX/SIMETH 30 ML, LIDOCAINE VISCOUS 30 ML, diphenhydrAMINE ELIXIR 75 M... PO SCH ×12 (09:28→21:38)
[2021-05-26] MEDS: FLUCONAZOLE IN NACL,ISO-OSM 100 MG in SALINE 1 50ML.BAG IVPB SCH (09:31)
[2021-05-26] MEDS ORDERED: DEXTROSE 50% SYRINGE 50 ML IVP ONE ×2 (11:43→14:21)
[2021-05-26 11:55] LABS: Glucose,Whole Blood 34 mg/dL (75-99)
[2021-05-26 12:11] LABS: Glucose,Whole Blood 135 mg/dL (75-99)
[2021-05-26 12:21] LABS: Magnesium 1.8 mg/dL (1.6-2.3); Phosphorus 2.1 mg/dL (2.5-4.5)
[2021-05-26] MEDS: FOLIC ACID 1 MG TAB PO SCH (12:34)
[2021-05-26] MEDS: MULTIVITAMINS, THERA 1 EACH TAB PO SCH (12:34)
[2021-05-26 14:21] LABS: Glucose,Whole Blood 56 mg/dL (75-99)
[2021-05-26 14:58] LABS: Glucose,Whole Blood 128 mg/dL (75-99)
--- NOTE | 2021-05-26 16:14 | P.PN ---
Subjective Progress Note Date: 05/26/21 This is a 36-year-old old female, seen in the emergency room, room 10. The patient was just discharged out of the hospital yesterday, May 16. The patient apparently returned to the emergency room, with a low blood sugar. She was brought in by EMS. She apparently has no memory of why she was in the ospital. She apparently was hungry when she came into the ER. She complained of back pain. Her blood glucose on arrival was 36. The patient was in the hospital recently for a left-sided pneumonia. The patient also has a history of diabetes with diabetic ketoacidosis. The patient is currently on O2 at 2 L. She's getting D5 0.9 at 75 mL an hour. She was given Augmentin, but we discontinued it in favor of Zosyn. The patient has a history of diabetes, diabetic neuropathy, chronic low back pain, migraine cephalgia, chronic constipation, and prior MRSA infection. White count 21.9, hemoglobin 8.8, hematocrit 28.7, and platelet count 474,000. Sodium 129, potassium 4.4, chlorides 102, CO2 24, anion gap 3, BUN 7, with a creatinine of 0.29. Albumin is 2. Urine is light yellow in color, and cloudy, leukocyte esterase being small positive, 9 WBCs, and rare bacteria. Drug screen is negative. Testing for ling virus was negative. Chest x-ray shows bilateral pneumonia, with dense consolidation within the left lung, and much less infiltrate in the right base. Progress note dated 05/18/2021. This is a 36-year-old female, who was seen in the emergency department in consultation yesterday, and room 10. The patient was recently discharged from the hospital on May 16. She was brought back in for mental status changes, and a low blood sugar. Apparently her blood glucose was only 36. Her prior admission was for diabetic ketoacidosis, and left-sided ammonia. Currently, she is back to her normal self. The patient is on 4 L nasal O2. She's not complaining of any respiratory distress or difficulty. She has a dry nonproductive cough. She was placed on Zosyn yesterday by our team. She was seen by infectious diseases. She has a history of diabetes, diabetic neuropathy , chronic low back pain, migraine cephalgia, chronic constipation, and prior MRSA infection. Currently, white count 19.3, he will been 7.2, hematocrit 24, and platelet count 449,000. Sodium 133, potassium 3.8, chlorides 100, CO2 21, anion gap 12, UN 7, and creatinine 0.4. Pro-calcitonin level is 0.15. C- reactive protein is 5.7. On today's evaluation of 05/19/2021, the patient is doing well. The patient is awake and alert. No signs of any significant respiratory distress. The patient was restarted back on IV Zosyn. The chest x-ray showed extensive consolidation of the left lung and the CAT scan of the chest also confirmed the same findings. The patient was Hospital as because of hypoglycemia. The patient altered mentation and she recovered fully. She is currently on Levemir 20 units along with sliding scale coverage. She is also on D5 water running at 100 mL an hour. Antibiotic coverage with IV Zosyn. Blood work shows a white cell count 12.4 with hemoglobin 8.5, BUN is at 5 with a creatinine of 0.4 and his sodium is at 134 with a potassium level of 3.3. The COVID 19 test that was negative. Urine drug screen was negative. Pro-calcitonin level has been consistently low. A focused on level was at 0.15. The patient currently is on oxygen 4 L per minute nasal cannula. She is afebrile. She is medically and hemodynamically stable at this point in time. She has poor dental conditions and poor oral hygiene. She has also developed some ulceration over the tip of the tongue probably related to candidal infection. On 2021, the patient's condition decompensated and the patient got transferred to the intensive care unit for respiratory support. Overnight, the patient became progressively more hypoxemic and short of breath. She was given a dose of Lasix 40 mg IV push without any much improvement. She was becoming also more lethargic and short of breath. She got transferred to the ICU. Currently she is on a BiPAP at a pressure of 12/6 cm of water with an FiO2 of 100%. Her Pulse Ox Is 99%. A Chest X-Ray Showed Extensive Consolidation of the Left Lung. There Are Some Air Bronchograms on the Left. At the Same Time There Are Some Air Pockets in the Left [place] Which Makes Me Concerned about an Underlying Cavitation/Abscess Formation. At the Same Time, There Is Progression of the Airspace Disease and There Is Development of New Patchy Opacities in the Right Midlung and the Right Lower Lung. Note That the Patient Was Covered with IV Zosyn for Any Potential Aspiration Pneumonia.Pro-Calcitonin Level Was at 0.15. Currently She Is on BiPAP Which Is Quite Comfortable. She instructed BiPAP dependent. The patient easily decompensates and desaturates 1 she's taken off the BiPAP. Note that she also had extensive oropharyngeal candidiasis and ulceration of the tongue for which she was given Diflucan. I added cold solution on her yesterday. She is unable to do adequate oral care as the patient is BiPAP dependent. In terms of IV fluids, the patient is on D5 water running at 40 mL an hour. This was started due to concerns of underlying episodes of hypoglycemia. She is a very brittle diabetic. Her blood sugars are all over the place. She is currently on Levemir insulin 20 units a day along with a sliding scale coverage. The Levemir insulin was given today. She is not eating much at this point in time as the patient is BiPAP dependent. Other blood work, her white cell count of 19.0 which is higher compared to yesterday. Hemoglobin is at 7.8. The blood gas while on 100% BiPAP initially showed a pH of 7.37 with a pCO2 of 46 and pO2 of 50. Current saturations up to 90%. Sodium is at 130 with a potassium level of 3.4 and a serum bicarb of 23 with a mean of 4 and a creatinine of 0.4. Her albumin is down to 2.0 with a total protein of 5.7. Cultures for now are negative in terms of blood culture. Note that the patient had MRSA and E. coli and strep in her urine back in 05/09/2021. She has also has had a previous MRSA wound infection involving the scalp. She is arousable. She is a bit lethargic. No agitation. On 05/21/2021 patient seen in follow-up in the intensive care unit, she currently remains on BiPAP support as of 12 and 600%, and her pulse ox is 99- 100%, she is awake and alert, oriented 3, she is extremely thirsty and hungry, does not appear to be in any acute distress, no complaints of worsening dyspnea, she seems to be breathing comfortably, nursing staff reports that patient was able to come off the BiPAP support to take sips of water, oral care, and pills, and patient tolerates being off BiPAP support better although she does desaturate. She is afebrile, hemodynamically she is stable, she remains on a combination of meropenem and vancomycin and Diflucan which were modified yesterday. Blood cultures have been negative thus far, she's been afebrile, no hemoptysis, no complaints of chest discomfort. Produced 5.2 L in urine output in response to Lasix, and she is in -3.8 L net fluid balance over the last 24 hours, today's chest x-ray has been reviewed, showing stable diffuse bilateral airspace disease. Absent been reviewed, white blood cell count is 20.2, hemoglobin is 7.9, platelet count is 482, serum sodium is 133, potassium 3.7, chloride is 104, CO2 is 24, B1 is 5 creatinine 0.42. Her last pro-calcitonin level from 05/18/2021 was 0.15. On 05/22/2021 patient seen in follow-up in intensive care unit, last night during an episode of getting cleaned up after having a bowel movement patient complained of not feeling well, she certainly became unresponsive, she started desaturating, her respirations became very agonal and rapid response team was called for ERIC BLUE. There was no seizure activity noted prior to the event, patient was not desaturating just prior to that, no arrhythmias were noted other than bradycardia after she had started desaturating. During the code patient did not lose her pulse, her pulse ox was down to 66% on high flow Airvo, she was emergently intubated and placed on mechanical ventilator, chest x-ray shows severe ARDS, she was hypotensive and received IV fluids and received norepinephrine infusion which is currently still infusing at 0.06 mics per kilo per minute, she was not hypoglycemic and her blood sugar at that time was 177, she had D5W infusing at 40, and she was starting to take in some oral intake. This morning she is sedated, intubated on assist control mode of ventilation with a rate of 16, tidal, 350, FiO2 is currently at 50% and PEEP of 8, this morning's blood gas shows pO2 of 102, pCO2 of 43, pH is 7.34, this was done on 70% FiO2 which had since been dropped down to 50%, this morning's chest x-ray was reviewed showing moderately severe pulmonary air space edema, without significant change compared to yesterday. The patient is in sinus mechanism, blood pressure is 112/72, currently on meropenem, vancomycin and Diflucan for aspiration pneumonia, blood cultures have been negative, patient has not been able to produce a sputum culture for us. Her labs reveal white blood cell count of 26.8 which is increased since yesterday from 20.2, hemoglobin of 7.9, platelet count of 530, sodium is 134, potassium is 4.0, chloride is 107, CO2 is 21, BUN is 7 creatinine 0.52, her glucose this morning is 203, LFTs were within normal limits, her last pro-calcitonin level from a few days ago was 0.15. Yesterday patient was given a liter bolus after she became intubated, she is producing urine in the order of 30-75 ML per hour, her Lasix is on hold. On 05/23/2021 patient seen in follow-up in the intensive care unit, she is sedated, intubated on mechanical ventilator with a assist control mode of ventilation and rate of 16, tidal emesis 50, FiO2 of 60% and PEEP of 8, this morning's blood gas was reviewed showing O2 of 154, pCO2 of 45, and pH of 7.37. Is currently on Diprivan at 40 mics per kilo per minute, Levaquin is at 3 mics per minute, 0.9 saline at any ML per hour. Today's chest x-ray showing persistent but improving bilateral airspace disease, right greater than left. There is some blood work has been reviewed showing white blood cell count of 13.4, hemoglobin of 7.3, sodium of 140, potassium is 3.9, chloride is 110, CO2 of 22, BUN of 6, creatinine of 0.62, this morning his glucose was 221. Recent have fevers overnight with a T-max of 101.5F. She currently remains on combination of meropenem, vancomycin and Diflucan. Patient is status post bronchoscopy and bronchoalveolar lavage on 05/22/2021, and BAL cultures are still pending. Gram stain showed no organisms thus far. Patient is tolerating tube feedings with vital HP at a rate of 20 ML per hour, Orellana catheter is in place, and patient is producing urine in the order of 50 to 100 mL per hour. On 05/24/2021 , is being seen for a follow-up. Note that the patient was extubated successfully yesterday. Extubation process went fine and the patient was doing very well on a nasal cannula oxygen. At around midnight, the patient acutely decompensated. She became short of breath and hypoxic. Her blood. This was done that showed acute respiratory acidosis with a pH of 7.24 with a pCO2 of 67 and pO2 of 80 and this was identified to 100%. He became acutely unresponsive and significant respiratory distress was noted by the nursing staff. At that point, it was decided that he intubated the patient. The patient is currently intubated on a mechanical ventilator. The patient is sedated with propofol which is running at 30 mcg/kg per minute to maintain synchrony with the mechanical ventilator. She is on assist control mode at the rate of 25, tidal volume of 350, FiO2 has been weaned down to 50% and the patient currently is in a PEEP of 10. Post intubation blood gases showed a pH of 7.48 with a pCO2 of 43 and pO2 of more than 400 and this was on FiO2 100%. Morning blood work also showed a drop in hemoglobin down to 6.1 from a baseline of 7.3. No evidence of any acute bleeding. No evidence of any hematemesis or melanotic stools. The patient will be given a total of 2 units of packed RBCs. Also, the patient is covered with broad-spectrum antibiotics patient remains on a combination of meropenem, vancomycin and Diflucan. The cultures from the bronchioloalveolar lavage was done earlier came back all negative. The repeat chest x-ray from today is showing adequate placement of the orotracheal tube. The patient continues to have bilateral pulmonary infiltrates. However, there is significant interval improvement in the bilateral pulmonary infiltrates compared to earlier chest x-rays. The white cycles of 7.12. Renal function is stable with a creatinine of 0.5 and a BUN of 7. Sodium level is at 144. Potassium level is at 3.2 and a K level will be replaced. The patient was restarted again on enteral feeding and this will be restarted today. Meanwhile, in terms of blood sugar control, the patient is receiving Levemir insulin 20 units once a day and a sliding scale coverage. Blood sugars have been maintained adequately and her most recent blood sugar currently is at 172. Her vancomycin felt level from today was 28. 05/25/2021, the patient is awake even on a low dose of propofol at 30 mcg/kg per minute. She is following commands. She wants to get the tube out. She is on a mechanical ventilator at the rate of 25, tidal volumes of 350, PEEP is at 10 and FiO2 is currently at 40%. PH is at 7.48 with a pCO2 of 43 and pO2 of 113. The lavage from the lungs did not yield any microbial growth. The patient continues to have diffuse bilateral pulmonary infiltrates and there is extensive consolidation bilaterally more so on the right. White secondary to 6.7. Hemoglobin is at 10.1 platelet count is at 356. Creatinine stable at 0.4. BUN is at 7. Sodium is at 139. LFTs are normal. Blood sugars at 168. The patient remains on a broad-spectrum antibiotic coverage. The patient is receiving IV Diflucan, IV vancomycin and IV meropenem. There was always the concern of aspiration in this patient as the patient developed initially extensive left lung consolidation subsequently infiltrates moved to the right. The bronchoscopy was done yielded no significant respiratory secretions or microbial growth at this point in time. She is on Levemir insulin and a sliding scale coverage. She is on no pressors for now. She is is slightly positive over the past 24 hours. The patient was receiving enteral feeding for nutritional support. She is currently on vital high protein at the rate of 20 mL an hour. No hypoglycemic attacks. As mentioned, she is easily arousable and she is moving all 4 extremities without any limitation. No fever. No significant leukocytosis. All of the cultures are negative. She remains on D5W at the rate of 75 mL an hour. No reported abdominal pain. LFTs are normal. Ultrasound abdomen showed a questionable gallbladder wall thickening and a calculus cholecystitis. On 05/26/2021 patient seen in follow-up in the intensive care unit, she is currently sedated, and intubated, on assist-control mode of ventilation with a rate of 25, tidal 350, FiO2 of 50% and PEEP of 5, this morning's blood gas shows pO2 of 55, pCO2 of 41, and pH of 7.54 and this was done and FiO2 of 40% and subsequently FiO2 was increased to 55%. She's currently on point and within indurated 20 ML per hour, norepinephrine drip has been off for over 12 hours, and improving and is at 30 mics per kilo per minute, she is on a vital high protein at a rate of 20 with standard water flushes 30 mL every 4 hours, today's chest x-ray has been reviewed showing bilateral multifocal confluent opacities. No significant change from one day earlier. Patient remains on a combination of antibiotics with Zosyn, vancomycin and Diflucan. Patient is status post bron choscopy with bronchoalveolar lavage on 05/22/2021, and so far BAL cultures are all negative, sputum and blood cultures and urine were all negative. Today's labs have been reviewed, white blood cell count is improved and is down to 7.3, hemoglobin is 9.8, sodium is 137, potassium is 3.4, chloride is 105, BUN is 8, creatinine 0.53. Hemodynamic patient is stable, she is in sinus mechanism, she has had no acute events overnight. No febrile episodes. He is currently likely sedated, she is opening eyes to verbal stimulation, and she seems to be following simple commands. Her LFTs are within normal limits. Objective - Vital Signs Vital signs: Vital Signs Temp 97.6 F 05/26/21 12:00 Pulse 80 05/26/21 15:00 Resp 25 H 05/26/21 15:00 BP 121/77 05/26/21 15:00 Pulse Ox 98 05/26/21 15:00 Intake & Output 05/25/21 05/26/21 05/26/21 18:59 06:59 18:59 Intake Total 1295.088 960 430 Output Total 3160 1525 860 Balance -1864.912 -565 -430 Intake: IV 795 550 160 D5W 285 440 40 Dextrose 5% in Water 1, 340 000 ml @ 40 mls/hr IV . Q24H [facility] Rx#:[id number] Normal Saline 0.9 @ KVO 170 110 120 Intake, IV Titration 70.088 100 0 Amount Norepinephrine 4 mg In 0 Sodium Chloride 0.9% 250 ml @ 0.05 MCG/KG/MIN 9. 601 mls/hr IV .Q24H [facility] Rx#:[id number] propofoL 1,000 mg In 70.088 100 Empty Bag 1 bag @ Titrate IV .Q0M [facility] Rx#: [id number] Tube Feeding 220 220 210 Other 210 90 60 Output: Urine 2660 1525 860 Stool 500 Other: Voiding Method Indwelling Catheter Indwelling Catheter Indwelling Catheter - Exam GENERAL EXAM: Sedated and intubated 36-year-old frail looking white female, on AC 25, TV 350, Fio2 50%, and PEEP of 5, comfortable in no apparent distress. HEAD: Normocephalic/atraumatic. EYES: Normal reaction of pupils, equal size. Conjunctiva pink, sclera white. NOSE: Clear with pink turbinates. MOUTH: She has ulcerations of her oral cavity THROAT: No erythema or exudates. NECK: No masses, no JVD, no thyroid enlargement, no adenopathy. CHEST: No chest wall deformity. Symmetrical expansion. LUNGS: diminished air entry with crackles, no wheeze, no rhonchi or dullness. CVS: Regular rate and rhythm, normal S1 and S2, no gallops, no murmurs, no rubs ABDOMEN: Soft, nontender. No hepatosplenomegaly, normal bowel sounds, no guarding or rigidity. EXTREMITIES: No clubbing, no edema, no cyanosis, 2+ pulses and upper and lower extremities. MUSCULOSKELETAL: Muscle strength and tone normal. SPINE: No scoliosis or deformity SKIN: No rashes CENTRAL NERVOUS SYSTEM: Intubated and sedated. No focal deficits, tone is normal in all 4 extremities. - Labs CBC & Chem 7: 05/26/21 05:20 05/26/21 05:20 Labs: Abnormal Lab Results - Last 24 Hours (Table) 05/25/21 05/25/21 05/25/21 Range/Units 16:18 20:19 23:45 RBC (3.80-5.40) m/uL Hgb (11.4-16.0) gm/dL Hct (34.0-46.0) % RDW (11.5-15.5) % Metamyelocytes # (Man) (0) k/uL ABG pH (7.35-7.45) ABG pO2 (83-108) mmHg ABG HCO3 (21-25) mmol/L ABG Total CO2 (19-24) mmol/L ABG O2 Saturation (94-97) % Potassium (3.5-5.1) mmol/L Carbon Dioxide (22-30) mmol/L Glucose (74-99) mg/dL POC Glucose (mg/dL) 184 H 199 H 197 H (75-99) mg/dL Calcium (8.4-10.2) mg/dL Phosphorus (2.5-4.5) mg/dL Total Protein (6.3-8.2) g/dL Albumin (3.5-5.0) g/dL 05/26/21 05/26/21 05/26/21 Range/Units 05:20 05:20 05:20 RBC 3.58 L (3.80-5.40) m/uL Hgb 9.8 L (11.4-16.0) gm/dL Hct 30.8 L (34.0-46.0) % RDW 16.0 H (11.5-15.5) % Metamyelocytes # (Man) 0.07 H (0) k/uL ABG pH (7.35-7.45) ABG pO2 (83-108) mmHg ABG HCO3 (21-25) mmol/L ABG Total CO2 (19-24) mmol/L ABG O2 Saturation (94-97) % Potassium 3.4 L (3.5-5.1) mmol/L Carbon Dioxide 33 H (22-30) mmol/L Glucose 108 H (74-99) mg/dL POC Glucose (mg/dL) (75-99) mg/dL Calcium 6.9 L (8.4-10.2) mg/dL Phosphorus 2.1 L (2.5-4.5) mg/dL Total Protein 5.2 L (6.3-8.2) g/dL Albumin 1.6 L (3.5-5.0) g/dL 05/26/21 05/26/21 05/26/21 Range/Units 06:37 11:42 12:00 RBC (3.80-5.40) m/uL Hgb (11.4-16.0) gm/dL Hct (34.0-46.0) % RDW (11.5-15.5) % Metamyelocytes # (Man) (0) k/uL ABG pH 7.54 H (7.35-7.45) ABG pO2 55 L* (83-108) mmHg ABG HCO3 36 H (21-25) mmol/L ABG Total CO2 37 H (19-24) mmol/L ABG O2 Saturation 92.4 L (94-97) % Potassium (3.5-5.1) mmol/L Carbon Dioxide (22-30) mmol/L Glucose (74-99) mg/dL POC Glucose (mg/dL) 34 L 135 H (75-99) mg/dL Calcium (8.4-10.2) mg/dL Phosphorus (2.5-4.5) mg/dL Total Protein (6.3-8.2) g/dL Albumin (3.5-5.0) g/dL 05/26/21 05/26/21 Range/Units 14:19 14:57 RBC (3.80-5.40) m/uL Hgb (11.4-16.0) gm/dL Hct (34.0-46.0) % RDW (11.5-15.5) % Metamyelocytes # (Man) (0) k/uL ABG pH (7.35-7.45) ABG pO2 (83-108) mmHg ABG HCO3 (21-25) mmol/L ABG Total CO2 (19-24) mmol/L ABG O2 Saturation (94-97) % Potassium (3.5-5.1) mmol/L Carbon Dioxide (22-30) mmol/L Glucose (74-99) mg/dL POC Glucose (mg/dL) 56 L 128 H (75-99) mg/dL Calcium (8.4-10.2) mg/dL Phosphorus (2.5-4.5) mg/dL Total Protein (6.3-8.2) g/dL Albumin (3.5-5.0) g/dL Microbiology - Last 24 Hours (Table) 05/23/21 09:13 Blood Culture - Preliminary Blood No Growth after 72 hours 05/23/21 08:57 Blood Culture - Preliminary Blood No Growth after 72 hours 05/24/21 15:45 Gram Stain - Final Sputum Sputum Culture - Final 05/24/21 17:23 Blood Culture - Preliminary Blood No Growth after 24 hours 05/24/21 17:23 Blood Culture - Preliminary Blood No Growth after 24 hours 05/24/21 14:15 Urine Culture - Final Urine,Catheterized Assessment and Plan Plan: Assessment: #1. Acute hypoxic respiratory failure related to worsening and progression of pneumonia, and chest x-ray showing patchy consolidation involving the right midlung, right upper lobe and right lower lobe in addition to extensive consolidation of the left lung with possibly some cavitation. Patient is currently covered with meropenem and vancomycin, her antibiotics have been modified yesterday, initially covered with Zosyn, patient was doing well on Airvo on 05/21/2021, was clinically improving, but suffered acute respiratory arrest on 05/21/2021 and was intubated, patient was successfully weaned and extubated on 05/23/2021 however failed again and had to be reintubated later that evening on 05/23/2021. In view of multiple episodes of respiratory failure patient will be considered for tracheostomy and PEG tube placement for weaning. Patient is status post bronchoscopy with bronchoalveolar lavage on 05/23/2021, so far BAL cultures are all negative. #2. Altered mental status secondary to hypoglycemia. Patient had recovered, and she was back to baseline neurologically #3. History of diabetes, and recent episode of diabetic ketoacidosis, recovered. Levemir insulin has been discontinued and patient is currently covered with sliding scale NovoLog, her last episode of hypoglycemia was on 05/19/2021 with a blood sugar of 45. No recurrence of hypoglycemia since #4. History of syncopal episodes related to hypoglycemia #5. History of migraine cephalgia #6. History of diabetic neuropathy #7. Chronic constipation #8. Chronic low back pain #9. Tongue and oral pharyngeal candidiasis, with ulcerations #10. Previous history of MRSA infection in the laceration of the scalp #11. Chronic anemia with interval drop in hemoglobin down to 6.1 without evidence of any active GI bleeding, status post transfusion with 1 unit of packed red blood cells Plan: Todays labs, chest x-ray and blood gases reviewed Chest x-ray showing bilateral multifocal and confluent opacities without significant change from the day prior Continue same ventilator settings, drop FiO2 down to 50% Continue same antibiotics, patient is on a combination of Zosyn, vancomycin and Diflucan Hemodynamically patient is stable BAL cultures have been reviewed showing no growth Continue tube feedings for nutritional support Discussed patient's condition and treatment with the patient's mother We'll consider surgical consultation for possibility of tracheostomy and PEG tube placement related to multiple episodes of acute respiratory failure necessitating reintubation Proceed with daily interruption of sedation No weaning trials We'll continue to follow I performed a history & physical examination of the patient and discussed their management with my nurse practitioner, Dania Negron. I reviewed the nurse practitioner's note and agree with the documented findings and plan of care. Lung sounds are positive for dim breath sounds throughout the lung [place]ott. The findings and the impression was discussed with the patient. I attest to the documentation by the nurse practitioner. Time with Patient: Greater than 30
[2021-05-26 17:38] LABS: Glucose,Whole Blood 81 mg/dL (75-99)
[2021-05-26] MEDS: MAGNESIUM SULFATE-D5W PMX 1 GM in DEXTROSE/WATER 1 100ML.BAG IVPB SCH ×2 (18:50→20:15)
[2021-05-26 20:08] LABS: Glucose,Whole Blood 86 mg/dL (75-99)
[2021-05-26] MEDS: MONTELUKAST 10 MG TAB PO SCH (21:26)
[2021-05-26] MEDS: AMITRIPTYLINE HCL 10 MG TAB PO SCH (21:30)
[2021-05-26] MEDS: INSULIN DETEMIR (LEVEMIR) 100 UNIT/ML SYR SQ SCH (21:40)
[2021-05-26 23:58] LABS: Glucose,Whole Blood 82 mg/dL (75-99)
[2021-05-27] MEDS: INSULIN ASPART (NovoLOG) 100 UNIT/ML VIAL SQ SCH ×7 (00:15→23:52)
--- NOTE | 2021-05-27 02:22 | P.PN ---
Subjective Progress Note Date: 05/26/21 This is a 36-year-old female who was recently admitted with changes in mental status along with significant hypoglycemia and is being closely monitored. Patient continues on 100% BiPAP with continued dyspnea and pulmonary following closely. Patient also found to have bilateral pneumonia possible aspiration and also a fungal urinary tract infection. Patient continues in the ICU for close monitoring and infectious disease is also following. Patient continues on IV antibiotics in the form of meropenem along with fluconazole and vancomycin and will continue. Multiple family members at the bedside. Recommend repeat chest x-ray along with labs in the morning. White blood Count elevated at 19.1. Potassium is 3.4 and magnesium 1.6 and will replace per protocol. 05/21/2021 She is seen in follow-up continues to be in the ICU being closely monitored. Patient was maintained on BiPAP and attempting airvo to allow for oral intake. Only at the bedside with multiple questions and concerns answered to the best of our ability. Patient's mentation is improved and answering questions and responding to commands appropriately. Chest x-ray today shows bilateral diffuse airspace disease with small effusion, stable with no pneumothorax noted. Infectious disease following an patient is continued on IV fluconazole along with meropenem. Blood cultures remain negative. Blood count is mildly elevated at 20.2. Patient is afebrile. Recommend repeat labs and chest x-ray in the a.m. She denies any chest pains or palpitations at this time. Patient tolerating oral intake and recommend strict aspiration precautions of head of the bed elevated 30-45 at all times and supervision with meals. 05/22/2021 Patient is seen in follow up and being closely monitored in the ICU with multiple medical consultations following. Patient was an A team this morning for acute respiratory arrest that was witnessed by nursing staff at the bedside and was changing the patient after a bowel movement and became apneic and code blue was initiated. Patient did not lose pulse but was intubated and placed on sedation. Chest xray showed moderately severe pulmonary edema without change compared to yesterday. Patient was given a dose of lasix. Patient is on some pressor support as well. Pulmonary following and patient underwent bronchoscopy with fluid analysis sent and pending. Patient is continued on IV merrem and vancomycin with ID following closely. Await finalized cultures. WBC elevated as well at 26.8. 05/23/2021 Patient is seen and evaluated this morning and continues in critical condition in the ICU. Mother at the bedside and patient was extubated this morning. Patient is currently resting on 2L of02 via NC with oxygen saturation above 90%. Patient is extremely lethargic but arousable. Chest xray shows persistent but improving airspace disease, right greater than left. Mother is at the bedside. May Patient is seen and evaluated today in follow-up continues to be in the ICU being closely monitored. Patient continues on mechanical vent with sedation and attempts at weaning continue. Pulmonary and ID following closely. Patient continues with FI02 of 60%. Patient also continues on IV fluconazole and Zosyn and will continue. Chest xray today shows bilateral multifocal and confluent opacities redemonstrated consistent with covid 19 infection and or ARDS is redemonstrated with no significant change from yesterday. Labs: WBC is 7.3, hemoglobin is 9.8, platelets are 339, sodium is 137, potassium 3.4 home BUN is 8, creatinine is 0.53, calcium is 6.9, phosphorus is 2.1, magnesium is 1.8 Review of systems: unable to assess as patient intubated and sedated All medications have been reviewed Active Medications Acetaminophen (Acetaminophen Tab 325 Mg Tab) 650 mg PO Q6HR PRN PRN Reason: Fever and/ or Pain Last Admin: 05/23/21 04:35 Dose: 650 mg Documented by: Amitriptyline HCl (Amitriptyline Hcl 10 Mg Tab) 10 mg PO HS [facility] Last Admin: 05/25/21 21:41 Dose: 10 mg Documented by: Chlorhexidine Gluconate (Chlorhexidine Gluconate 15 Ml Cup) 15 ml MUCOUS MEM BID [facility] Last Admin: 05/26/21 09:21 Dose: 15 ml Documented by: Cholecalciferol (Cholecalciferol 25 Mcg (1000 Iu) Tablet) 50 mcg PO DAILY [facility] Last Admin: 05/26/21 09:22 Dose: 50 mcg Documented by: Al Hydroxide/Mg Hydroxide 30 ml/ Lidocaine HCl 30 ml/Diphenhydramine HCl 75 mg/Nystatin 3,000,000 unit 0 ml PO TID [facility] Last Admin: 05/26/21 16:01 Dose: 5 ml Documented by: Enoxaparin Sodium (Enoxaparin 40 Mg/0.4 Ml Syringe) 40 mg SQ DAILY [facility] Last Admin: 05/26/21 09:21 Dose: 40 mg Documented by: Escitalopram Oxalate (Escitalopram 20 Mg Tab) 20 mg PO DAILY [facility] Last Admin: 05/26/21 09:22 Dose: 20 mg Documented by: Folic Acid (Folic Acid 1 Mg Tab) 1 mg PO DAILY@1200 [facility] Last Admin: 05/26/21 12:34 Dose: Not Given Documented by: Fluconazole/Sodium Chloride (100 mg/ IV Solution) 50 mls @ 50 mls/hr IVPB DAILY [facility] Last Admin: 05/26/21 09:31 Dose: 50 mls/hr Documented by: Propofol 1,000 mg/ IV Solution 100 mls @ 0 mls/hr IV .Q0M [facility]; Protocol Last Admin: 05/26/21 08:24 Dose: 30 mcg/kg/min, 9.45 mls/hr Documented by: Norepinephrine Bitartrate 4 mg (/ Sodium Chloride) 254 mls @ 9.601 mls/hr IV .Q24H [facility]; Protocol Last Titration: 05/26/21 13:07 Dose: 0.02 mcg/kg/min, 3.84 mls/hr Documented by: Acetaminophen 1,000 mg/ IV (Solution) 100 mls @ 400 mls/hr IVPB Q6HR PRN PRN Reason: Fever Stop: 06/09/21 08:05 Piperacillin Sod/Tazobactam (Sod 3.375 gm/ Sodium Chloride) 100 mls @ 25 mls/hr IVPB Q8HR [facility] Last Admin: 05/26/21 15:40 Dose: 25 mls/hr Documented by: Insulin Aspart (Insulin Aspart (Novolog) 100 Unit/Ml Vial) 0 unit SQ Q4H [facility]; Protocol Last Admin: 05/26/21 15:40 Dose: Not Given Documented by: Insulin Detemir (Insulin Detemir (Levemir) 100 Unit/Ml Syr) 20 unit SQ HS [facility] Last Admin: 05/25/21 21:41 Dose: 20 unit Documented by: Loperamide HCl (Loperamide 2 Mg Cap) 2 mg PO QID PRN PRN Reason: Diarrhea Last Admin: 05/21/21 17:48 Dose: 2 mg Documented by: Miscellaneous Information (Magnesium Replacement Protocol 1 Each Misc) 1 each MISCELLANE DAILY PRN; Protocol PRN Reason: Per Protocol Miscellaneous Information (Potassium Replacement Protocol 1 Each Misc) 1 each MISCELLANE DAILY PRN; Protocol PRN Reason: Per Protocol Montelukast Sodium (Montelukast 10 Mg Tab) 10 mg PO HS [facility] Last Admin: 05/25/21 21:40 Dose: 10 mg Documented by: Morphine Sulfate (Morphine Sulfate 2 Mg/Ml Syringe) 2 mg IVP Q4HR PRN PRN Reason: Pain/Discomfort Multivitamins (Multivitamins, Thera 1 Each Tab) 1 each PO DAILY@1200 [facility] Last Admin: 05/26/21 12:34 Dose: Not Given Documented by: Nystatin (Nystatin 100,000 Unit/Ml Susp 500,000 Unit/5 Ml Cup) 500,000 unit PO QID [facility] Last Admin: 05/26/21 14:48 Dose: Not Given Documented by: Pantoprazole Sodium (Pantoprazole 40 Mg/10 Ml Vial) 40 mg IVP DAILY [facility] Last Admin: 05/26/21 09:21 Dose: 40 mg Documented by: Pregabalin (Pregabalin 75 Mg Cap) 75 mg PO TID [facility] Last Admin: 05/26/21 15:41 Dose: 75 mg Documented by: Sumatriptan Succinate (Sumatriptan Succinate 50 Mg Tab) 100 mg PO DAILY PRN PRN Reason: Migraine Headache Thiamine HCl (Thiamine 100 Mg Tab) 100 mg PO BID-W/MEALS [facility] Last Admin: 05/26/21 16:34 Dose: 100 mg Documented by: Zinc Sulfate (Zinc Sulfate 220 Mg Cap) 220 mg PO DAILY [facility] Last Admin: 05/26/21 09:22 Dose: 220 mg Documented by: Physical Exam: Gen: This is a 36-year-old female who is intubated and sedated, thin built, cachectic. Temp is 98.1F, pulse is 82, respirations are 25, blood pressure is 84/55, oxygen saturation is 98% on 60% FiO2 mechanical vent HEENT: Head is atraumatic, normocephalic. Pupils equal, round. Sclerae is anicteric. oral mucosa is dry and white patches noted on tongue NECK: Supple. No JVD. No lymphadenopathy. No thyromegaly. LUNGS: Breath sounds diminished with scattered rhonchi and crackles noted. No intercostal retractions. HEART: S1, S2 are muffled ABDOMEN: Soft. Bowel sounds are present. No masses. No tenderness. EXTREMITIES: No pedal edema. No calf tenderness. NEUROLOGICAL: Patient is lethargic but arousable. . Assessment: Acute bilateral pneumonia, right more than left with aspiration pneumonia with sepsis, present on admission acute respiratory difficulty and acute hypoxic respiratory failure requiring mechanical ventilation, status post extubation and reintubation severe sepsis with septic shock, present on admission Change in mental status, acute metabolic encephalopathy, multifactorial possible underlying chronic liver disease acute on chronic cholecystitis Herpes simplex type 1 from the bronchial washings Acute hypoglycemia Severe hypokalemia Severe hyponatremia Fungal urinary tract infection Severe protein calorie malnutrition with a body mass index of 22.2 diabetes mellitus type I, uncontrolled with hypoglycemia Hypoalbuminemia Increased white count Anemia of unknown etiology history of syncope history of diabetes mellitus type 1, insulin-dependent History of peripheral neuropathy History of migraines History of HPV History of MRSA history of tubal ligation Anxiety, depression Gait dysfunction Full code Plan: Recommend to continue with current medications and follow along closely with multiple medical consultations. Infectious disease and pulmonary following closely and patient remains on mechanical vent and weaning attempts ongoing. Patient underwent bronchoscopy recently and fluid cultures thus far and shows herpes simplex 1 and discussed possible acyclovir and ID following closely. Will hold acyclovir for now and continue on anti-fungals and IV zosyn. Mother at the bedside and questions and concerns answered to the best of our ability. Recommend repeat labs and follow-up chest x-ray in the morning. Recommend to keep the bed elevated 30-45 at all times and maintain aspiration precautions. Blood cultures remain negative. Recommend to continue to monitor blood sugars closely.Due to multiple complex medical issues prognosis is extremely guarded. Objective - Vital Signs Vital signs: Vital Signs Temp 97.8 F 05/26/21 00:00 Pulse 82 05/26/21 07:00 Resp 25 H 05/26/21 07:00 BP 83/52 05/26/21 07:00 Pulse Ox 100 05/26/21 07:00 Intake & Output 05/25/21 05/26/21 05/26/21 18:59 06:59 18:59 Intake Total 1295.088 960 70 Output Total 3160 1525 75 Balance -1864.912 -565 -5 Intake: IV 795 550 50 D5W 285 440 40 Dextrose 5% in Water 1, 340 000 ml @ 40 mls/hr IV . Q24H [facility] Rx#:[id number] NS 170 110 10 Intake, IV Titration 70.088 100 Amount propofoL 1,000 mg In 70.088 100 Empty Bag 1 bag @ Titrate IV .Q0M [facility] Rx#: [id number] Tube Feeding 220 220 20 Other 210 90 Output: Urine 2660 1525 75 Stool 500 Other: Voiding Method Indwelling Catheter Indwelling Catheter - Labs CBC & Chem 7: 05/26/21 05:20 05/26/21 05:20 Labs: Abnormal Lab Results - Last 24 Hours (Table) 05/25/21 05/25/21 05/25/21 Range/Units 09:08 11:36 16:18 RBC (3.80-5.40) m/uL Hgb (11.4-16.0) gm/dL Hct (34.0-46.0) % RDW (11.5-15.5) % Metamyelocytes # (Man) (0) k/uL ABG pH (7.35-7.45) ABG pO2 (83-108) mmHg ABG HCO3 (21-25) mmol/L ABG Total CO2 (19-24) mmol/L ABG O2 Saturation (94-97) % Potassium (3.5-5.1) mmol/L Carbon Dioxide (22-30) mmol/L Glucose (74-99) mg/dL POC Glucose (mg/dL) 168 H 192 H 184 H (75-99) mg/dL Calcium (8.4-10.2) mg/dL Total Protein (6.3-8.2) g/dL Albumin (3.5-5.0) g/dL 05/25/21 05/25/21 05/26/21 Range/Units 20:19 23:45 05:20 RBC 3.58 L (3.80-5.40) m/uL Hgb 9.8 L (11.4-16.0) gm/dL Hct 30.8 L (34.0-46.0) % RDW 16.0 H (11.5-15.5) % Metamyelocytes # (Man) 0.07 H (0) k/uL ABG pH (7.35-7.45) ABG pO2 (83-108) mmHg ABG HCO3 (21-25) mmol/L ABG Total CO2 (19-24) mmol/L ABG O2 Saturation (94-97) % Potassium (3.5-5.1) mmol/L Carbon Dioxide (22-30) mmol/L Glucose (74-99) mg/dL POC Glucose (mg/dL) 199 H 197 H (75-99) mg/dL Calcium (8.4-10.2) mg/dL Total Protein (6.3-8.2) g/dL Albumin (3.5-5.0) g/dL 05/26/21 05/26/21 Range/Units 05:20 06:37 RBC (3.80-5.40) m/uL Hgb (11.4-16.0) gm/dL Hct (34.0-46.0) % RDW (11.5-15.5) % Metamyelocytes # (Man) (0) k/uL ABG pH 7.54 H (7.35-7.45) ABG pO2 55 L* (83-108) mmHg ABG HCO3 36 H (21-25) mmol/L ABG Total CO2 37 H (19-24) mmol/L ABG O2 Saturation 92.4 L (94-97) % Potassium 3.4 L (3.5-5.1) mmol/L Carbon Dioxide 33 H (22-30) mmol/L Glucose 108 H (74-99) mg/dL POC Glucose (mg/dL) (75-99) mg/dL Calcium 6.9 L (8.4-10.2) mg/dL Total Protein 5.2 L (6.3-8.2) g/dL Albumin 1.6 L (3.5-5.0) g/dL Microbiology - Last 24 Hours (Table) 05/24/21 17:23 Blood Culture - Preliminary Blood No Growth after 24 hours 05/24/21 17:23 Blood Culture - Preliminary Blood No Growth after 24 hours 05/24/21 14:15 Urine Culture - Final Urine,Catheterized 05/23/21 09:13 Blood Culture - Preliminary Blood No Growth after 48 hours 05/24/21 15:45 Gram Stain - Preliminary Sputum Sputum Culture - Preliminary 05/23/21 08:57 Blood Culture - Preliminary Blood No Growth after 48 hours
[2021-05-27 03:35] LABS: HIV 2 AB Non-Reactive (Non-Reactive); HIV AB P24 Non-Reactive (Non-Reactive); HIV P24 AG Non-Reactive (Non-Reactive)
[2021-05-27 04:27] LABS: Glucose,Whole Blood 116 mg/dL (75-99)
[2021-05-27] MEDS: NOREPINEPHRINE 4 MG in SODIUM CHLORIDE 0.9% 250 ML IV SCH (04:39)
[2021-05-27 05:44] LABS: ABG Base Excess 12.7 mmol/L; ABG HCO3 36 mmol/L (21-25); ABG Oxygen Saturation 97.8 % (94-97); ABG PCO2 44 mmHg (35-45); ABG PH 7.52 (7.35-7.45); ABG PO2 85 mmHg (83-108); ABG TCO2 37 mmol/L (19-24); Allen Test Performed? Yes
[2021-05-27 06:30] LABS: Anisocytosis Slight; Basophils % (A) 0 %; Eosinophils # (A) 0.2 k/uL (0-0.7); Eosinophils % (A) 3 %; HCT 33.2 % (34.0-46.0); HGB 10.4 gm/dL (11.4-16.0); Hypochromasia Marked; Lymphocytes # (A) 1.7 k/uL (1.0-4.8); Lymphocytes % (A) 23 %; MCH 26.9 pg (25.0-35.0); MCHC 31.2 g/dL (31.0-37.0); MCV 86.1 fL (80.0-100.0); Monocytes # (A) 0.4 k/uL (0-1.0); Monocytes % (A) 5 %; Neutrophils # (A) 4.9 k/uL (1.3-7.7); Neutrophils % (A) 67 %; Platelet Count 377 k/uL (150-450); Poikilocytosis Slight; RBC 3.86 m/uL (3.80-5.40); WBC 7.4 k/uL (3.8-10.6)
[2021-05-27] MEDS: THIAMINE 100 MG TAB PO SCH ×2 (06:33→17:32)
[2021-05-27 06:53] LABS: African American GFR (CKD) >90 (>60 ml/min/1.73 sqM); Anion Gap -1 mmol/L; Blood Urea Nitrogen 9 mg/dL (7-17); Calcium 7.1 mg/dL (8.4-10.2); Carbon Dioxide 33 mmol/L (22-30); Chloride 105 mmol/L (98-107); Glucose 127 mg/dL (74-99); Magnesium 2.2 mg/dL (1.6-2.3); Non-African American GFR(CKD) >90 (>60 ml/min/1.73 sqM); Potassium 3.4 mmol/L (3.5-5.1); Sodium 137 mmol/L (137-145)
--- NOTE | 2021-05-27 08:12 | XR ---
EXAMINATION TYPE: XR chest 1V portable DATE OF EXAM: 05/27/2021 COMPARISON: 05/26/2021 INDICATION: Tube placement TECHNIQUE: Single frontal view of the chest is obtained. FINDINGS: The heart size is normal. The pulmonary vasculature is normal. Bilateral lung patchy infiltrates are present similar to comparison Endotracheal tube tip is above the lucas. Nasogastric tube tip is in the left upper quadrant of the abdomen. Right PICC line tip is within the right atrium IMPRESSION: 1. Patchy bilateral lung infiltrates, stable. Continued follow-up is recommended. 2. Lines and catheters discussed above.
[2021-05-27 08:17] LABS: Glucose,Whole Blood 151 mg/dL (75-99)
[2021-05-27] MEDS: PIPERACILLIN-TAZOBACTAM 3.375 GM in SODIUM CHLORIDE 0.9% 100 ML IVPB SCH ×2 (09:12→15:52)
[2021-05-27] MEDS: CHLORHEXIDINE GLUCONATE 15 ML CUP MUCOUS MEM SCH ×2 (09:13→20:14)
[2021-05-27] MEDS: POTASSIUM BICARBONATE/CIT AC 20 MEQ TABLET.EFF NG-TUBE SCH ×2 (09:14→10:39)
[2021-05-27] MEDS: CHOLECALCIFEROL 25 MCG (1000 IU) TABLET PO SCH (09:14)
[2021-05-27] MEDS: ZINC SULFATE 220 MG CAP PO SCH (09:14)
[2021-05-27] MEDS: PREGABALIN 75 MG CAP PO SCH ×3 (09:15→20:14)
[2021-05-27] MEDS: ENOXAPARIN 40 MG/0.4 ML SYRINGE SQ SCH (09:16)
[2021-05-27] MEDS: PANTOPRAZOLE 40 MG/10 ML VIAL IVP SCH (09:16)
[2021-05-27] MEDS: MAG HYDROX/AL HYDROX/SIMETH 30 ML, LIDOCAINE VISCOUS 30 ML, diphenhydrAMINE ELIXIR 75 M... PO SCH ×12 (09:18→20:14)
[2021-05-27] MEDS: FLUCONAZOLE IN NACL,ISO-OSM 100 MG in SALINE 1 50ML.BAG IVPB SCH (09:24)
[2021-05-27] MEDS: NYSTATIN 100,000 UNIT/ML SUSP 500,000 UNIT/5 ML CUP PO SCH ×4 (09:24→20:14)
[2021-05-27] MEDS: ESCITALOPRAM 20 MG TAB PO SCH (09:24)
--- NOTE | 2021-05-27 11:13 | P.PN ---
Subjective Progress Note Date: 05/27/21 This is a 36-year-old old female, seen in the emergency room, room 10. The patient was just discharged out of the hospital yesterday, May 16. The patient apparently returned to the emergency room, with a low blood sugar. She was brought in by EMS. She apparently has no memory of why she was in the ospital. She apparently was hungry when she came into the ER. She complained of back pain. Her blood glucose on arrival was 36. The patient was in the hospital recently for a left-sided pneumonia. The patient also has a history of diabetes with diabetic ketoacidosis. The patient is currently on O2 at 2 L. She's getting D5 0.9 at 75 mL an hour. She was given Augmentin, but we discontinued it in favor of Zosyn. The patient has a history of diabetes, diabetic neuropathy, chronic low back pain, migraine cephalgia, chronic constipation, and prior MRSA infection. White count 21.9, hemoglobin 8.8, hematocrit 28.7, and platelet count 474,000. Sodium 129, potassium 4.4, chlorides 102, CO2 24, anion gap 3, BUN 7, with a creatinine of 0.29. Albumin is 2. Urine is light yellow in color, and cloudy, leukocyte esterase being small positive, 9 WBCs, and rare bacteria. Drug screen is negative. Testing for ling virus was negative. Chest x-ray shows bilateral pneumonia, with dense consolidation within the left lung, and much less infiltrate in the right base. Progress note dated 05/18/2021. This is a 36-year-old female, who was seen in the emergency department in consultation yesterday, and room 10. The patient was recently discharged from the hospital on May 16. She was brought back in for mental status changes, and a low blood sugar. Apparently her blood glucose was only 36. Her prior admission was for diabetic ketoacidosis, and left-sided ammonia. Currently, she is back to her normal self. The patient is on 4 L nasal O2. She's not complaining of any respiratory distress or difficulty. She has a dry nonproductive cough. She was placed on Zosyn yesterday by our team. She was seen by infectious diseases. She has a history of diabetes, diabetic neuropathy , chronic low back pain, migraine cephalgia, chronic constipation, and prior MRSA infection. Currently, white count 19.3, he will been 7.2, hematocrit 24, and platelet count 449,000. Sodium 133, potassium 3.8, chlorides 100, CO2 21, anion gap 12, UN 7, and creatinine 0.4. Pro-calcitonin level is 0.15. C- reactive protein is 5.7. On today's evaluation of 05/19/2021, the patient is doing well. The patient is awake and alert. No signs of any significant respiratory distress. The patient was restarted back on IV Zosyn. The chest x-ray showed extensive consolidation of the left lung and the CAT scan of the chest also confirmed the same findings. The patient was Hospital as because of hypoglycemia. The patient altered mentation and she recovered fully. She is currently on Levemir 20 units along with sliding scale coverage. She is also on D5 water running at 100 mL an hour. Antibiotic coverage with IV Zosyn. Blood work shows a white cell count 12.4 with hemoglobin 8.5, BUN is at 5 with a creatinine of 0.4 and his sodium is at 134 with a potassium level of 3.3. The COVID 19 test that was negative. Urine drug screen was negative. Pro-calcitonin level has been consistently low. A focused on level was at 0.15. The patient currently is on oxygen 4 L per minute nasal cannula. She is afebrile. She is medically and hemodynamically stable at this point in time. She has poor dental conditions and poor oral hygiene. She has also developed some ulceration over the tip of the tongue probably related to candidal infection. On 2021, the patient's condition decompensated and the patient got transferred to the intensive care unit for respiratory support. Overnight, the patient became progressively more hypoxemic and short of breath. She was given a dose of Lasix 40 mg IV push without any much improvement. She was becoming also more lethargic and short of breath. She got transferred to the ICU. Currently she is on a BiPAP at a pressure of 12/6 cm of water with an FiO2 of 100%. Her Pulse Ox Is 99%. A Chest X-Ray Showed Extensive Consolidation of the Left Lung. There Are Some Air Bronchograms on the Left. At the Same Time There Are Some Air Pockets in the Left [place] Which Makes Me Concerned about an Underlying Cavitation/Abscess Formation. At the Same Time, There Is Progression of the Airspace Disease and There Is Development of New Patchy Opacities in the Right Midlung and the Right Lower Lung. Note That the Patient Was Covered with IV Zosyn for Any Potential Aspiration Pneumonia.Pro-Calcitonin Level Was at 0.15. Currently She Is on BiPAP Which Is Quite Comfortable. She instructed BiPAP dependent. The patient easily decompensates and desaturates 1 she's taken off the BiPAP. Note that she also had extensive oropharyngeal candidiasis and ulceration of the tongue for which she was given Diflucan. I added cold solution on her yesterday. She is unable to do adequate oral care as the patient is BiPAP dependent. In terms of IV fluids, the patient is on D5 water running at 40 mL an hour. This was started due to concerns of underlying episodes of hypoglycemia. She is a very brittle diabetic. Her blood sugars are all over the place. She is currently on Levemir insulin 20 units a day along with a sliding scale coverage. The Levemir insulin was given today. She is not eating much at this point in time as the patient is BiPAP dependent. Other blood work, her white cell count of 19.0 which is higher compared to yesterday. Hemoglobin is at 7.8. The blood gas while on 100% BiPAP initially showed a pH of 7.37 with a pCO2 of 46 and pO2 of 50. Current saturations up to 90%. Sodium is at 130 with a potassium level of 3.4 and a serum bicarb of 23 with a mean of 4 and a creatinine of 0.4. Her albumin is down to 2.0 with a total protein of 5.7. Cultures for now are negative in terms of blood culture. Note that the patient had MRSA and E. coli and strep in her urine back in 05/09/2021. She has also has had a previous MRSA wound infection involving the scalp. She is arousable. She is a bit lethargic. No agitation. On 05/21/2021 patient seen in follow-up in the intensive care unit, she currently remains on BiPAP support as of 12 and 600%, and her pulse ox is 99- 100%, she is awake and alert, oriented 3, she is extremely thirsty and hungry, does not appear to be in any acute distress, no complaints of worsening dyspnea, she seems to be breathing comfortably, nursing staff reports that patient was able to come off the BiPAP support to take sips of water, oral care, and pills, and patient tolerates being off BiPAP support better although she does desaturate. She is afebrile, hemodynamically she is stable, she remains on a combination of meropenem and vancomycin and Diflucan which were modified yesterday. Blood cultures have been negative thus far, she's been afebrile, no hemoptysis, no complaints of chest discomfort. Produced 5.2 L in urine output in response to Lasix, and she is in -3.8 L net fluid balance over the last 24 hours, today's chest x-ray has been reviewed, showing stable diffuse bilateral airspace disease. Absent been reviewed, white blood cell count is 20.2, hemoglobin is 7.9, platelet count is 482, serum sodium is 133, potassium 3.7, chloride is 104, CO2 is 24, B1 is 5 creatinine 0.42. Her last pro-calcitonin level from 05/18/2021 was 0.15. On 05/22/2021 patient seen in follow-up in intensive care unit, last night during an episode of getting cleaned up after having a bowel movement patient complained of not feeling well, she certainly became unresponsive, she started desaturating, her respirations became very agonal and rapid response team was called for ERIC BLUE. There was no seizure activity noted prior to the event, patient was not desaturating just prior to that, no arrhythmias were noted other than bradycardia after she had started desaturating. During the code patient did not lose her pulse, her pulse ox was down to 66% on high flow Airvo, she was emergently intubated and placed on mechanical ventilator, chest x-ray shows severe ARDS, she was hypotensive and received IV fluids and received norepinephrine infusion which is currently still infusing at 0.06 mics per kilo per minute, she was not hypoglycemic and her blood sugar at that time was 177, she had D5W infusing at 40, and she was starting to take in some oral intake. This morning she is sedated, intubated on assist control mode of ventilation with a rate of 16, tidal, 350, FiO2 is currently at 50% and PEEP of 8, this morning's blood gas shows pO2 of 102, pCO2 of 43, pH is 7.34, this was done on 70% FiO2 which had since been dropped down to 50%, this morning's chest x-ray was reviewed showing moderately severe pulmonary air space edema, without significant change compared to yesterday. The patient is in sinus mechanism, blood pressure is 112/72, currently on meropenem, vancomycin and Diflucan for aspiration pneumonia, blood cultures have been negative, patient has not been able to produce a sputum culture for us. Her labs reveal white blood cell count of 26.8 which is increased since yesterday from 20.2, hemoglobin of 7.9, platelet count of 530, sodium is 134, potassium is 4.0, chloride is 107, CO2 is 21, BUN is 7 creatinine 0.52, her glucose this morning is 203, LFTs were within normal limits, her last pro-calcitonin level from a few days ago was 0.15. Yesterday patient was given a liter bolus after she became intubated, she is producing urine in the order of 30-75 ML per hour, her Lasix is on hold. On 05/23/2021 patient seen in follow-up in the intensive care unit, she is sedated, intubated on mechanical ventilator with a assist control mode of ventilation and rate of 16, tidal emesis 50, FiO2 of 60% and PEEP of 8, this morning's blood gas was reviewed showing O2 of 154, pCO2 of 45, and pH of 7.37. Is currently on Diprivan at 40 mics per kilo per minute, Levaquin is at 3 mics per minute, 0.9 saline at any ML per hour. Today's chest x-ray showing persistent but improving bilateral airspace disease, right greater than left. There is some blood work has been reviewed showing white blood cell count of 13.4, hemoglobin of 7.3, sodium of 140, potassium is 3.9, chloride is 110, CO2 of 22, BUN of 6, creatinine of 0.62, this morning his glucose was 221. Recent have fevers overnight with a T-max of 101.5F. She currently remains on combination of meropenem, vancomycin and Diflucan. Patient is status post bronchoscopy and bronchoalveolar lavage on 05/22/2021, and BAL cultures are still pending. Gram stain showed no organisms thus far. Patient is tolerating tube feedings with vital HP at a rate of 20 ML per hour, Orellana catheter is in place, and patient is producing urine in the order of 50 to 100 mL per hour. On 05/24/2021 , is being seen for a follow-up. Note that the patient was extubated successfully yesterday. Extubation process went fine and the patient was doing very well on a nasal cannula oxygen. At around midnight, the patient acutely decompensated. She became short of breath and hypoxic. Her blood. This was done that showed acute respiratory acidosis with a pH of 7.24 with a pCO2 of 67 and pO2 of 80 and this was identified to 100%. He became acutely unresponsive and significant respiratory distress was noted by the nursing staff. At that point, it was decided that he intubated the patient. The patient is currently intubated on a mechanical ventilator. The patient is sedated with propofol which is running at 30 mcg/kg per minute to maintain synchrony with the mechanical ventilator. She is on assist control mode at the rate of 25, tidal volume of 350, FiO2 has been weaned down to 50% and the patient currently is in a PEEP of 10. Post intubation blood gases showed a pH of 7.48 with a pCO2 of 43 and pO2 of more than 400 and this was on FiO2 100%. Morning blood work also showed a drop in hemoglobin down to 6.1 from a baseline of 7.3. No evidence of any acute bleeding. No evidence of any hematemesis or melanotic stools. The patient will be given a total of 2 units of packed RBCs. Also, the patient is covered with broad-spectrum antibiotics patient remains on a combination of meropenem, vancomycin and Diflucan. The cultures from the bronchioloalveolar lavage was done earlier came back all negative. The repeat chest x-ray from today is showing adequate placement of the orotracheal tube. The patient continues to have bilateral pulmonary infiltrates. However, there is significant interval improvement in the bilateral pulmonary infiltrates compared to earlier chest x-rays. The white cycles of 7.12. Renal function is stable with a creatinine of 0.5 and a BUN of 7. Sodium level is at 144. Potassium level is at 3.2 and a K level will be replaced. The patient was restarted again on enteral feeding and this will be restarted today. Meanwhile, in terms of blood sugar control, the patient is receiving Levemir insulin 20 units once a day and a sliding scale coverage. Blood sugars have been maintained adequately and her most recent blood sugar currently is at 172. Her vancomycin felt level from today was 28. 05/25/2021, the patient is awake even on a low dose of propofol at 30 mcg/kg per minute. She is following commands. She wants to get the tube out. She is on a mechanical ventilator at the rate of 25, tidal volumes of 350, PEEP is at 10 and FiO2 is currently at 40%. PH is at 7.48 with a pCO2 of 43 and pO2 of 113. The lavage from the lungs did not yield any microbial growth. The patient continues to have diffuse bilateral pulmonary infiltrates and there is extensive consolidation bilaterally more so on the right. White secondary to 6.7. Hemoglobin is at 10.1 platelet count is at 356. Creatinine stable at 0.4. BUN is at 7. Sodium is at 139. LFTs are normal. Blood sugars at 168. The patient remains on a broad-spectrum antibiotic coverage. The patient is receiving IV Diflucan, IV vancomycin and IV meropenem. There was always the concern of aspiration in this patient as the patient developed initially extensive left lung consolidation subsequently infiltrates moved to the right. The bronchoscopy was done yielded no significant respiratory secretions or microbial growth at this point in time. She is on Levemir insulin and a sliding scale coverage. She is on no pressors for now. She is is slightly positive over the past 24 hours. The patient was receiving enteral feeding for nutritional support. She is currently on vital high protein at the rate of 20 mL an hour. No hypoglycemic attacks. As mentioned, she is easily arousable and she is moving all 4 extremities without any limitation. No fever. No significant leukocytosis. All of the cultures are negative. She remains on D5W at the rate of 75 mL an hour. No reported abdominal pain. LFTs are normal. Ultrasound abdomen showed a questionable gallbladder wall thickening and a calculus cholecystitis. On 05/26/2021 patient seen in follow-up in the intensive care unit, she is currently sedated, and intubated, on assist-control mode of ventilation with a rate of 25, tidal 350, FiO2 of 50% and PEEP of 5, this morning's blood gas shows pO2 of 55, pCO2 of 41, and pH of 7.54 and this was done and FiO2 of 40% and subsequently FiO2 was increased to 55%. She's currently on point and within indurated 20 ML per hour, norepinephrine drip has been off for over 12 hours, and improving and is at 30 mics per kilo per minute, she is on a vital high protein at a rate of 20 with standard water flushes 30 mL every 4 hours, today's chest x-ray has been reviewed showing bilateral multifocal confluent opacities. No significant change from one day earlier. Patient remains on a combination of antibiotics with Zosyn, vancomycin and Diflucan. Patient is status post bron choscopy with bronchoalveolar lavage on 05/22/2021, and so far BAL cultures are all negative, sputum and blood cultures and urine were all negative. Today's labs have been reviewed, white blood cell count is improved and is down to 7.3, hemoglobin is 9.8, sodium is 137, potassium is 3.4, chloride is 105, BUN is 8, creatinine 0.53. Hemodynamic patient is stable, she is in sinus mechanism, she has had no acute events overnight. No febrile episodes. He is currently likely sedated, she is opening eyes to verbal stimulation, and she seems to be following simple commands. Her LFTs are within normal limits. On 05/27/2021 patient seen in follow-up in the intensive care unit, she is lightly sedated, she opens her eyes to voice, she is following simple commands, does not appear to be in any acute distress, she still intubated, on assist- control mode of ventilation with a rate of 25, Tylenol level was 350, FiO2 of 50% and PEEP of 5, this morning's blood gas shows pO2 of 85, pCO2 44, and pH of 7.52. This was done on the above-mentioned ventilator settings. Today's chest x-ray changed to show patchy bilateral lung infiltrates that are stable in appearance. Vital signs have been stable overnight, no fever, no chills. All of her cultures including BAL cultures remained negative. Patient remains on a combination of antibiotics with Diflucan, Zosyn and vancomycin. She did require small dose of norepinephrine on which she remains, currently infusing at a rate of 3.9 mics per minute. Current blood pressure is 140/89, and norepinephrine can be discontinued. Urine output is in the order of 50 TOPD ML per hour. Patient is receiving the program at 30 mics per kilo per minute, and IV fluids are 0.9 normal saline at a rate of 20 ML per hour, she is tolerating tube feedings with vital AF at a rate of 36 with a goal of 36 and standard water flushes. Today's labs have been reviewed showing white blood cell, 7.4, hemoglobin of 10.4, platelet count of 377, sodium is 137, potassium is 3.4, chloride is 105, CO2 of 33, BUN of 9 creatinine 0.56 Objective - Vital Signs Vital signs: Vital Signs Temp 98.1 F 05/27/21 08:00 Pulse 81 05/27/21 10:00 Resp 25 H 05/27/21 10:00 BP 140/89 05/27/21 10:00 Pulse Ox 96 05/27/21 10:00 Intake & Output 05/26/21 05/27/21 05/27/21 18:59 06:59 18:59 Intake Total 979.722 960.555 338.4 Output Total 1210 1385 250 Balance -230.278 -424.445 88.4 Weight 49 kg Intake: IV 430 440 190 D5W 40 Fluconazole in NaCl,Iso- 50 Osm 100 mg In Saline 1 50ml.bag @ 50 mls/hr IVPB DAILY [facility] Rx#:[id number] Magnesium Sulfate-D5w Pmx 100 100 1 gm In Dextrose/Water 1 100ml.bag @ 100 mls/hr IVPB Q1H [facility] Rx#: [id number] Normal Saline 0.9 @ KVO 190 240 40 Piperacillin-Tazobactam 3 100 100 100 .375 gm In Sodium Chloride 0.9% 100 ml @ 25 mls/hr IVPB Q8HR [facility] Rx# :[id number] Intake, IV Titration 111.722 88.555 10.4 Amount Norepinephrine 4 mg In 19.584 18.624 10.4 Sodium Chloride 0.9% 250 ml @ 0.05 MCG/KG/MIN 9. 601 mls/hr IV .Q24H [facility] Rx#:[id number] propofoL 1,000 mg In 92.138 69.931 Empty Bag 1 bag @ Titrate IV .Q0M [facility] Rx#: [id number] Tube Feeding 348 432 108 Other 90 30 Output: Urine 1210 1235 200 Stool 150 50 Other: Voiding Method Indwelling Catheter Indwelling Catheter Indwelling Catheter # Bowel Movements 50 - Exam GENERAL EXAM: Likely sedated and intubated 36-year-old frail looking white female, on AC 25, TV 350, Fio2 50%, and PEEP of 5, comfortable in no apparent distress. HEAD: Normocephalic/atraumatic. EYES: Normal reaction of pupils, equal size. Conjunctiva pink, sclera white. NOSE: Clear with pink turbinates. MOUTH: She has ulcerations of her oral cavity THROAT: No erythema or exudates. NECK: No masses, no JVD, no thyroid enlargement, no adenopathy. CHEST: No chest wall deformity. Symmetrical expansion. LUNGS: diminished air entry with crackles, no wheeze, no rhonchi or dullness. CVS: Regular rate and rhythm, normal S1 and S2, no gallops, no murmurs, no rubs ABDOMEN: Soft, nontender. No hepatosplenomegaly, normal bowel sounds, no guarding or rigidity. EXTREMITIES: No clubbing, no edema, no cyanosis, 2+ pulses and upper and lower extremities. MUSCULOSKELETAL: Muscle strength and tone normal. SPINE: No scoliosis or deformity SKIN: No rashes CENTRAL NERVOUS SYSTEM: Intubated and sedated. No focal deficits, tone is normal in all 4 extremities. - Labs CBC & Chem 7: 05/27/21 05:16 05/27/21 05:16 Labs: Abnormal Lab Results - Last 24 Hours (Table) 05/26/21 05/26/21 05/26/21 Range/Units 05:20 11:42 12:00 Hgb (11.4-16.0) gm/dL Hct (34.0-46.0) % RDW (11.5-15.5) % ABG pH (7.35-7.45) ABG HCO3 (21-25) mmol/L ABG Total CO2 (19-24) mmol/L ABG O2 Saturation (94-97) % Potassium (3.5-5.1) mmol/L Carbon Dioxide (22-30) mmol/L Glucose (74-99) mg/dL POC Glucose (mg/dL) 34 L 135 H (75-99) mg/dL Calcium (8.4-10.2) mg/dL Phosphorus 2.1 L (2.5-4.5) mg/dL 05/26/21 05/26/21 05/27/21 Range/Units 14:19 14:57 04:25 Hgb (11.4-16.0) gm/dL Hct (34.0-46.0) % RDW (11.5-15.5) % ABG pH (7.35-7.45) ABG HCO3 (21-25) mmol/L ABG Total CO2 (19-24) mmol/L ABG O2 Saturation (94-97) % Potassium (3.5-5.1) mmol/L Carbon Dioxide (22-30) mmol/L Glucose (74-99) mg/dL POC Glucose (mg/dL) 56 L 128 H 116 H (75-99) mg/dL Calcium (8.4-10.2) mg/dL Phosphorus (2.5-4.5) mg/dL 05/27/21 05/27/21 05/27/21 Range/Units 05:16 05:16 05:40 Hgb 10.4 L (11.4-16.0) gm/dL Hct 33.2 L (34.0-46.0) % RDW 16.0 H (11.5-15.5) % ABG pH 7.52 H (7.35-7.45) ABG HCO3 36 H (21-25) mmol/L ABG Total CO2 37 H (19-24) mmol/L ABG O2 Saturation 97.8 H (94-97) % Potassium 3.4 L (3.5-5.1) mmol/L Carbon Dioxide 33 H (22-30) mmol/L Glucose 127 H (74-99) mg/dL POC Glucose (mg/dL) (75-99) mg/dL Calcium 7.1 L (8.4-10.2) mg/dL Phosphorus (2.5-4.5) mg/dL 05/27/21 Range/Units 08:14 Hgb (11.4-16.0) gm/dL Hct (34.0-46.0) % RDW (11.5-15.5) % ABG pH (7.35-7.45) ABG HCO3 (21-25) mmol/L ABG Total CO2 (19-24) mmol/L ABG O2 Saturation (94-97) % Potassium (3.5-5.1) mmol/L Carbon Dioxide (22-30) mmol/L Glucose (74-99) mg/dL POC Glucose (mg/dL) 151 H (75-99) mg/dL Calcium (8.4-10.2) mg/dL Phosphorus (2.5-4.5) mg/dL Microbiology - Last 24 Hours (Table) 05/24/21 17:23 Blood Culture - Preliminary Blood No Growth after 48 hours 05/24/21 17:23 Blood Culture - Preliminary Blood No Growth after 48 hours 05/23/21 09:13 Blood Culture - Preliminary Blood No Growth after 72 hours 05/23/21 08:57 Blood Culture - Preliminary Blood No Growth after 72 hours 05/24/21 15:45 Gram Stain - Final Sputum Sputum Culture - Final Assessment and Plan Plan: Assessment: #1. Acute hypoxic respiratory failure related to worsening and progression of pneumonia, and chest x-ray showing patchy consolidation involving the right midlung, right upper lobe and right lower lobe in addition to extensive consolidation of the left lung with possibly some cavitation. Patient is currently covered with meropenem and vancomycin, her antibiotics have been modified yesterday, initially covered with Zosyn, patient was doing well on Airvo on 05/21/2021, was clinically improving, but suffered acute respiratory arrest on 05/21/2021 and was intubated, patient was successfully weaned and extubated on 05/23/2021 however failed again and had to be reintubated later that evening on 05/23/2021. In view of multiple episodes of respiratory failure patient will be considered for tracheostomy and PEG tube placement for weaning. Patient is status post bronchoscopy with bronchoalveolar lavage on 05/23/2021, so far BAL cultures are all negative. #2. Altered mental status secondary to hypoglycemia. Patient had recovered, and she was back to baseline neurologically #3. History of diabetes, and recent episode of diabetic ketoacidosis, recovered. Levemir insulin has been discontinued and patient is currently covered with sliding scale NovoLog, her last episode of hypoglycemia was on 05/19/2021 with a blood sugar of 45. No recurrence of hypoglycemia since #4. History of syncopal episodes related to hypoglycemia #5. History of migraine cephalgia #6. History of diabetic neuropathy #7. Chronic constipation #8. Chronic low back pain #9. Tongue and oral pharyngeal candidiasis, with ulcerations #10. Previous history of MRSA infection in the laceration of the scalp #11. Chronic anemia with interval drop in hemoglobin down to 6.1 without evidence of any active GI bleeding, status post transfusion with 1 unit of packed red blood cells Plan: Todays labs, chest x-ray and blood gases reviewed Chest x-ray showing stable bilateral multifocal and confluent opacities Continue same ventilator settings, drop FiO2 down to 50% All cultures including BAL cultures showing no growth thus far Continue same antibiotics Patient required small dose of norepinephrine overnight, hemodynamically she stable, improved, we will wean norepinephrine off Consult Dr. Matias for tracheostomy and PEG tube placement for recurrent episodes of respiratory failure requiring reintubation and placement on mechanical ventilator We'll continue to follow I performed a history & physical examination of the patient and discussed their management with my nurse practitioner, Dania Negron. I reviewed the nurse practitioner's note and agree with the documented findings and plan of care. Lung sounds are positive for dim breath sounds throughout the lung abbott. The findings and the impression was discussed with the patient. I attest to the documentation by the nurse practitioner. Time with Patient: Greater than 30
[2021-05-27 11:48] LABS: Glucose,Whole Blood 173 mg/dL (75-99)
[2021-05-27] MEDS: MULTIVITAMINS, THERA 1 EACH TAB PO SCH (12:19)
[2021-05-27] MEDS: FOLIC ACID 1 MG TAB PO SCH (12:19)
--- NOTE | 2021-05-27 13:24 | P.GSCN ---
History of Present Illness Consult date: 05/27/21 History of present illness: CHIEF COMPLAINT: Hypoglycemia HISTORY OF PRESENT ILLNESS: This is a 36-year-old female who was brought in to the hospital with evidence of hypoglycemia. Patient admitted to the hospital on 05/17/2021. Patient had respiratory failure with evidence of pneumonia requiring intubation after her acute respiratory arrest on 05/21/2021. Patient was successfully weaned and extubated on 05/23/2021 however had worsening respiratory status and required to be reintubated on 05/23/2021. Patient did have bronchoscopy during this admission. Surgical service has been consult for tracheostomy and PEG tube placement. Patient is requiring a small dose of norepinephrine. She is on a PEEP of 6 FiO2 of 50%. PAST MEDICAL HISTORY: Diabetes mellitus type 1, neuropathy bilateral legs, chronic low back pain, migraines PAST SURGICAL HISTORY: Tubal ligation and uterine ablation MEDICATIONS: See list. ALLERGIES: See list. SOCIAL HISTORY: No illicit drug use. REVIEW OF SYSTEMS: CONSTITUTIONAL: Denies fever or chills. HEENT: Denies blurred vision, vision changes, or eye pain. Denies hemoptysis CARDIOVASCULAR: Denies chest pain or pressure. RESPIRATORY: No shortness of breath. GASTROINTESTINAL: See HPI for pertinent findings HEMATOLOGIC: Denies bleeding disorders. GENITOURINARY: Denies any blood in urine or increased urinary frequency. SKIN: Denies pruitis. Denies rash. PHYSICAL EXAM: VITAL SIGNS: Reviewed GENERAL: Well-developed in no acute distress. HEENT: No sclera icterus. Extraocular movements grossly intact. Moist buccal mucosa. Head is atraumatic, normocephalic. No nasal drainage. ABDOMEN: Soft. Nondistended. Nontender NEUROLOGIC: Patient is awake and on mechanical ventilation LABORATORY DATA: WBC 7.4 hemoglobin 10.4 platelets 377 Sodium 137 potassium 3.4 creatinine 0.56 Albumin 1.6 IMAGING: Chest x-ray patchy bilateral lung infiltrates, stable. ASSESSMENT: 1. Acute hypoxic respiratory failure secondary to pneumonia. Patient was extubated and required to be reintubated on 05/23/2021 2. Severe protein calorie malnutrition 3. Hypokalemia PLAN: -Patient scheduled for tracheostomy and PEG tube placement tomorrow, 05/28/[address] Matias at bedside -Hold tube feedings after midnight -Hold Lovenox -Potassium being replaced Thank you for this consultation Physician Valve Mechanic note has been reviewed by physician. Signing provider agrees with the documented findings, assessment, and plan of care. Past Medical History Past Medical History: Diabetes Mellitus, Syncope Additional Past Medical History / Comment(s): IDDM type I, neuropathy bilateral legs/feet, chronic low back pain, bilateral leg pain, migraines, hx chronic constipation. Hx HPV. Having diarrhea with any intake of food, chronic History of Any Multi-Drug Resistant Organisms: MRSA Year Discovered:: 02/15/19 MDRO Source:: Head Past Surgical History: Tubal Ligation, Uterine Ablation Additional Past Surgical History / Comment(s): 12/22/17 colonoscopy, LAPAROSCOPIC REMOVAL Rt TUBE AND OVARY d/t endometriosis, D&C, HYSTEROSCOPY, NOVASURE ABLATION 2015. Past Anesthesia/Blood Transfusion Reactions: No Reported Reaction Additional Past Anesthesia/Blood Transfusion Reaction / Comm: HAD MULTI INJ FOR DENTAL WORK, NOVACAINE WAS INEFFECTIVE. Past Psychological History: Anxiety, Depression Smoking Status: Never smoker Past Alcohol Use History: None Reported Past Drug Use History: None Reported - Past Family History Mother Family Medical History: No Reported History, Rheumatoid Arthritis (RA) Additional Family Medical History / Comment(s): Mother is 63 yrs old. Father Family Medical History: Cancer, Diabetes Mellitus, Deep Vein Thrombosis (DVT), Hypertension Additional Family Medical History / Comment(s): THROAT CA- of but pt does no t know at what age. Medications and Allergies Home Medications Medication Instructions Recorded Confirmed Type Escitalopram [Lexapro] 20 mg PO DAILY 04/26/20 05/17/21 History Omeprazole 20 mg PO DAILY 11/14/20 05/17/21 History ALPRAZolam [Xanax] 0.25 mg PO DAILY PRN 05/09/21 05/17/21 History Amitriptyline HCl [Elavil] 10 mg PO HS 05/09/21 05/17/21 History Cholecalciferol [Vitamin D3 (25 50 mcg PO DAILY 05/09/21 05/17/21 History Mcg = 1000 Iu)] INSULIN LISPRO (humaLOG) [humaLOG] 40 units SQ AC-TID 05/09/21 05/17/21 History INSULIN LISPRO (humaLOG) [humaLOG] See Protocol SQ AC-TID 05/09/21 05/17/21 History Insulin Detemir [Levemir Flextouch 35 units SQ HS 05/09/21 05/17/21 History Pen] Montelukast [Singulair] 10 mg PO HS 05/09/21 05/17/21 History Rizatriptan Odt [Maxalt WASTE TRANSPORTATION TECHNICIAN] 10 mg PO DAILY PRN 05/09/21 05/17/21 History Zinc 50 mg PO DAILY 05/09/21 05/17/21 History lisinopriL [Zestril] 2.5 mg PO DAILY 05/09/21 05/17/21 History tiZANidine [Zanaflex] 4 mg PO BID PRN 05/09/21 05/17/21 History Metoprolol Tartrate [Lopressor] 12.5 mg PO BID #60 tab 05/16/21 05/17/21 Rx Pregabalin [Lyrica] 75 mg PO TID #7 cap 05/16/21 05/17/21 Rx Amoxicillin/Potassium Clav 1 tab PO BID 05/17/21 05/17/21 History [Augmentin 875-125 Tablet] Allergies Allergy/AdvReac Type Severity Reaction Status Date / Time No Known Allergies Allergy Verified 05/17/21 11:59 Surgical - Exam Vital Signs Temp Pulse Resp BP Pulse Ox 94.7 F L 95 18 128/93 98 05/17/21 10:21 05/17/21 10:21 05/17/21 10:21 05/17/21 10:21 05/17/21 10:21 Results - Labs 05/27/21 05:16 05/27/21 05:16 Abnormal Lab Results - Last 24 Hours (Table) 05/26/21 05/26/21 05/27/21 Range/Units 14:19 14:57 04:25 Hgb (11.4-16.0) gm/dL Hct (34.0-46.0) % RDW (11.5-15.5) % ABG pH (7.35-7.45) ABG HCO3 (21-25) mmol/L ABG Total CO2 (19-24) mmol/L ABG O2 Saturation (94-97) % Potassium (3.5-5.1) mmol/L Carbon Dioxide (22-30) mmol/L Glucose (74-99) mg/dL POC Glucose (mg/dL) 56 L 128 H 116 H (75-99) mg/dL Calcium (8.4-10.2) mg/dL 05/27/21 05/27/21 05/27/21 Range/Units 05:16 05:16 05:40 Hgb 10.4 L (11.4-16.0) gm/dL Hct 33.2 L (34.0-46.0) % RDW 16.0 H (11.5-15.5) % ABG pH 7.52 H (7.35-7.45) ABG HCO3 36 H (21-25) mmol/L ABG Total CO2 37 H (19-24) mmol/L ABG O2 Saturation 97.8 H (94-97) % Potassium 3.4 L (3.5-5.1) mmol/L Carbon Dioxide 33 H (22-30) mmol/L Glucose 127 H (74-99) mg/dL POC Glucose (mg/dL) (75-99) mg/dL Calcium 7.1 L (8.4-10.2) mg/dL 05/27/21 05/27/21 Range/Units 08:14 11:46 Hgb (11.4-16.0) gm/dL Hct (34.0-46.0) % RDW (11.5-15.5) % ABG pH (7.35-7.45) ABG HCO3 (21-25) mmol/L ABG Total CO2 (19-24) mmol/L ABG O2 Saturation (94-97) % Potassium (3.5-5.1) mmol/L Carbon Dioxide (22-30) mmol/L Glucose (74-99) mg/dL POC Glucose (mg/dL) 151 H 173 H (75-99) mg/dL Calcium (8.4-10.2) mg/dL Microbiology - Last 24 Hours (Table) 05/23/21 09:13 Blood Culture - Preliminary Blood No Growth after 96 hours 05/23/21 08:57 Blood Culture - Preliminary Blood No Growth after 96 hours 05/24/21 17:23 Blood Culture - Preliminary Blood No Growth after 48 hours 05/24/21 17:23 Blood Culture - Preliminary Blood No Growth after 48 hours 05/24/21 15:45 Gram Stain - Final Sputum Sputum Culture - Final Diabetes panel 05/27/21 Range/Units 05:16 Sodium 137 (137-145) mmol/L Potassium 3.4 L (3.5-5.1) mmol/L Chloride 105 (98-107) mmol/L Carbon Dioxide 33 H (22-30) mmol/L BUN 9 (7-17) mg/dL Creatinine 0.56 (0.52-1.04) mg/dL Glucose 127 H (74-99) mg/dL Calcium 7.1 L (8.4-10.2) mg/dL Calcium panel 05/27/21 Range/Units 05:16 Calcium 7.1 L (8.4-10.2) mg/dL Pituitary panel 05/27/21 Range/Units 05:16 Sodium 137 (137-145) mmol/L Potassium 3.4 L (3.5-5.1) mmol/L Chloride 105 (98-107) mmol/L Carbon Dioxide 33 H (22-30) mmol/L BUN 9 (7-17) mg/dL Creatinine 0.56 (0.52-1.04) mg/dL Glucose 127 H (74-99) mg/dL Calcium 7.1 L (8.4-10.2) mg/dL Adrenal panel 05/27/21 Range/Units 05:16 Sodium 137 (137-145) mmol/L Potassium 3.4 L (3.5-5.1) mmol/L Chloride 105 (98-107) mmol/L Carbon Dioxide 33 H (22-30) mmol/L BUN 9 (7-17) mg/dL Creatinine 0.56 (0.52-1.04) mg/dL Glucose 127 H (74-99) mg/dL Calcium 7.1 L (8.4-10.2) mg/dL
--- NOTE | 2021-05-27 14:55 | P.PN ---
Subjective Progress Note Date: 05/27/21 This is a 36-year-old female who was recently admitted with changes in mental status along with significant hypoglycemia and is being closely monitored. Patient continues on 100% BiPAP with continued dyspnea and pulmonary following closely. Patient also found to have bilateral pneumonia possible aspiration and also a fungal urinary tract infection. Patient continues in the ICU for close monitoring and infectious disease is also following. Patient continues on IV antibiotics in the form of meropenem along with fluconazole and vancomycin and will continue. Multiple family members at the bedside. Recommend repeat chest x-ray along with labs in the morning. White blood Count elevated at 19.1. Potassium is 3.4 and magnesium 1.6 and will replace per protocol. 05/21/2021 She is seen in follow-up continues to be in the ICU being closely monitored. Patient was maintained on BiPAP and attempting airvo to allow for oral intake. Only at the bedside with multiple questions and concerns answered to the best of our ability. Patient's mentation is improved and answering questions and responding to commands appropriately. Chest x-ray today shows bilateral diffuse airspace disease with small effusion, stable with no pneumothorax noted. Infectious disease following an patient is continued on IV fluconazole along with meropenem. Blood cultures remain negative. Blood count is mildly elevated at 20.2. Patient is afebrile. Recommend repeat labs and chest x-ray in the a.m. She denies any chest pains or palpitations at this time. Patient tolerating oral intake and recommend strict aspiration precautions of head of the bed elevated 30-45 at all times and supervision with meals. 05/22/2021 Patient is seen in follow up and being closely monitored in the ICU with multiple medical consultations following. Patient was an A team this morning for acute respiratory arrest that was witnessed by nursing staff at the bedside and was changing the patient after a bowel movement and became apneic and code blue was initiated. Patient did not lose pulse but was intubated and placed on sedation. Chest xray showed moderately severe pulmonary edema without change compared to yesterday. Patient was given a dose of lasix. Patient is on some pressor support as well. Pulmonary following and patient underwent bronchoscopy with fluid analysis sent and pending. Patient is continued on IV merrem and vancomycin with ID following closely. Await finalized cultures. WBC elevated as well at 26.8. 05/23/2021 Patient is seen and evaluated this morning and continues in critical condition in the ICU. Mother at the bedside and patient was extubated this morning. Patient is currently resting on 2L of02 via NC with oxygen saturation above 90%. Patient is extremely lethargic but arousable. Chest xray shows persistent but improving airspace disease, right greater than left. Mother is at the bedside. May Patient is seen and evaluated today in follow-up continues to be in the ICU being closely monitored. Patient continues on mechanical vent with sedation and attempts at weaning continue. Pulmonary and ID following closely. Patient continues with FI02 of 60%. Patient also continues on IV fluconazole and Zosyn and will continue. Chest xray today shows bilateral multifocal and confluent opacities redemonstrated consistent with covid 19 infection and or ARDS is redemonstrated with no significant change from yesterday. 05/27/2021 Patient is seen and evaluated this morning and continues on mechanical ventilation and lightly sedated on propofol although patient is awake and following commands although fatigues easily. General surgery consulted for PEG and trach placement for pulmonary residential treatment counselor recommendations. Infectious disease following an patient is maintained on fluconazole along with IV Zosyn and will continue. Patient continues with multiple episodes of loose stool with fecal management system and C. diff testing is ordered. Potassium mildly low at 3.4 and will replace per protocol. Magnesium is 2.2 today. Chest x-ray today shows patchy bilateral lung infiltrates that are stable. Labs: WBC is 7.3, hemoglobin is 9.8, platelets are 339, sodium is 137, potassium 3.4 home BUN is 8, creatinine is 0.53, calcium is 6.9, phosphorus is 2.1, magnesium is 1.8 Review of systems: unable to assess as patient intubated and sedated All medications have been reviewed Active Medications Acetaminophen (Acetaminophen Tab 325 Mg Tab) 650 mg PO Q6HR PRN PRN Reason: Fever and/ or Pain Last Admin: 05/23/21 04:35 Dose: 650 mg Documented by: Amitriptyline HCl (Amitriptyline Hcl 10 Mg Tab) 10 mg PO HS [facility] Last Admin: 05/26/21 21:30 Dose: 10 mg Documented by: Chlorhexidine Gluconate (Chlorhexidine Gluconate 15 Ml Cup) 15 ml MUCOUS MEM BID [facility] Last Admin: 05/27/21 09:13 Dose: 15 ml Documented by: Cholecalciferol (Cholecalciferol 25 Mcg (1000 Iu) Tablet) 50 mcg PO DAILY [facility] Last Admin: 05/27/21 09:14 Dose: 50 mcg Documented by: Al Hydroxide/Mg Hydroxide 30 ml/ Lidocaine HCl 30 ml/Diphenhydramine HCl 75 mg/Nystatin 3,000,000 unit 0 ml PO TID [facility] Last Admin: 05/27/21 09:18 Dose: 5 ml Documented by: Escitalopram Oxalate (Escitalopram 20 Mg Tab) 20 mg PO DAILY [facility] Last Admin: 05/27/21 09:24 Dose: 20 mg Documented by: Folic Acid (Folic Acid 1 Mg Tab) 1 mg PO DAILY@1200 [facility] Last Admin: 05/27/21 12:19 Dose: 1 mg Documented by: Fluconazole/Sodium Chloride (100 mg/ IV Solution) 50 mls @ 50 mls/hr IVPB DAILY [facility] Last Admin: 05/27/21 09:24 Dose: 50 mls/hr Documented by: Propofol 1,000 mg/ IV Solution 100 mls @ 0 mls/hr IV .Q0M [facility]; Protocol Last Admin: 05/27/21 12:34 Dose: 30 mcg/kg/min, 8.82 mls/hr Documented by: Norepinephrine Bitartrate 4 mg (/ Sodium Chloride) 254 mls @ 9.601 mls/hr IV .Q24H [facility]; Protocol Last Titration: 05/27/21 10:04 Dose: 0 mcg/kg/min, 0 mls/hr Documented by: Acetaminophen 1,000 mg/ IV (Solution) 100 mls @ 400 mls/hr IVPB Q6HR PRN PRN Reason: Fever Stop: 06/09/21 08:05 Piperacillin Sod/Tazobactam (Sod 3.375 gm/ Sodium Chloride) 100 mls @ 25 mls/hr IVPB Q8HR [facility] Last Admin: 05/27/21 09:12 Dose: 25 mls/hr Documented by: Insulin Aspart (Insulin Aspart (Novolog) 100 Unit/Ml Vial) 0 unit SQ Q4H [facility]; Protocol Last Admin: 05/27/21 12:19 Dose: 2 unit Documented by: Insulin Detemir (Insulin Detemir (Levemir) 100 Unit/Ml Syr) 20 unit SQ HS [facility] Last Admin: 05/26/21 21:40 Dose: Not Given Documented by: Loperamide HCl (Loperamide 2 Mg Cap) 2 mg PO QID PRN PRN Reason: Diarrhea Last Admin: 05/21/21 17:48 Dose: 2 mg Documented by: Miscellaneous Information (Magnesium Replacement Protocol 1 Each Misc) 1 each MISCELLANE DAILY PRN; Protocol PRN Reason: Per Protocol Miscellaneous Information (Potassium Replacement Protocol 1 Each Misc) 1 each MISCELLANE DAILY PRN; Protocol PRN Reason: Per Protocol Montelukast Sodium (Montelukast 10 Mg Tab) 10 mg PO HS [facility] Last Admin: 05/26/21 21:26 Dose: 10 mg Documented by: Morphine Sulfate (Morphine Sulfate 2 Mg/Ml Syringe) 2 mg IVP Q4HR PRN PRN Reason: Pain/Discomfort Multivitamins (Multivitamins, Thera 1 Each Tab) 1 each PO DAILY@1200 [facility] Last Admin: 05/27/21 12:19 Dose: 1 each Documented by: Nystatin (Nystatin 100,000 Unit/Ml Susp 500,000 Unit/5 Ml Cup) 500,000 unit PO QID [facility] Last Admin: 05/27/21 12:21 Dose: 500,000 unit Documented by: Pantoprazole Sodium (Pantoprazole 40 Mg/10 Ml Vial) 40 mg IVP DAILY [facility] Last Admin: 05/27/21 09:16 Dose: 40 mg Documented by: Pregabalin (Pregabalin 75 Mg Cap) 75 mg PO TID [facility] Last Admin: 05/27/21 09:15 Dose: 75 mg Documented by: Sumatriptan Succinate (Sumatriptan Succinate 50 Mg Tab) 100 mg PO DAILY PRN PRN Reason: Migraine Headache Thiamine HCl (Thiamine 100 Mg Tab) 100 mg PO BID-W/MEALS [facility] Last Admin: 05/27/21 06:33 Dose: 100 mg Documented by: Zinc Sulfate (Zinc Sulfate 220 Mg Cap) 220 mg PO DAILY [facility] Last Admin: 05/27/21 09:14 Dose: 220 mg Documented by: Physical Exam: Gen: This is a 36-year-old female who is intubated and sedated, thin built, cachectic. Temp is 98.1F, pulse is 80, respirations are 25, blood pressure is 138/86, oxygen saturation is 98% on 50% FiO2 mechanical vent HEENT: Head is atraumatic, normocephalic. Pupils equal, round. Sclerae is anicteric. oral mucosa is dry and white patches noted on tongue NECK: Supple. No JVD. No lymphadenopathy. No thyromegaly. LUNGS: Breath sounds diminished with scattered rhonchi and crackles noted. No intercostal retractions. HEART: S1, S2 are muffled ABDOMEN: Soft. Bowel sounds are present. No masses. No tenderness. EXTREMITIES: No pedal edema. No calf tenderness. NEUROLOGICAL: Patient is lethargic but arousable. Nodding yes and no to simple commands . 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 Infectious disease and pulmonary following closely and patient remains on mechanical vent and weaning attempts ongoing. 52 is down to 50% patient is awake mildly sedated with propofol. General surgery consulted for trach and PEG tube placement which will likely be scheduled for tomorrow. Mother at the bedside and questions and concerns answered to the best of our ability. Recommend repeat labs and follow-up chest x-ray in the morning. Recommend to keep the bed elevated 30-45 at all times and maintain aspiration precautions. Blood cultures remain negative. Recommend to continue to monitor blood sugars closely.Due to multiple complex medical issues prognosis is extremely guarded. Objective - Vital Signs Vital signs: Vital Signs Temp 98.1 F 05/27/21 08:00 Pulse 81 05/27/21 08:30 Resp 25 H 05/27/21 08:30 BP 136/87 05/27/21 08:30 Pulse Ox 96 05/27/21 08:30 Intake & Output 05/26/21 05/27/21 05/27/21 18:59 06:59 18:59 Intake Total 979.722 960.555 86 Output Total 1210 1385 130 Balance -230.278 -424.445 -44 Weight 49 kg Intake: IV 430 440 20 D5W 40 Magnesium Sulfate-D5w Pmx 100 100 1 gm In Dextrose/Water 1 100ml.bag @ 100 mls/hr IVPB Q1H [facility] Rx#: [id number] Normal Saline 0.9 @ KVO 190 240 20 Piperacillin-Tazobactam 3 100 100 .375 gm In Sodium Chloride 0.9% 100 ml @ 25 mls/hr IVPB Q8HR [facility] Rx# :[id number] Intake, IV Titration 111.722 88.555 Amount Norepinephrine 4 mg In 19.584 18.624 Sodium Chloride 0.9% 250 ml @ 0.05 MCG/KG/MIN 9. 601 mls/hr IV .Q24H [facility] Rx#:[id number] propofoL 1,000 mg In 92.138 69.931 Empty Bag 1 bag @ Titrate IV .Q0M [facility] Rx#: [id number] Tube Feeding 348 432 36 Other 90 30 Output: Urine 1210 1235 80 Stool 150 50 Other: Voiding Method Indwelling Catheter Indwelling Catheter Indwelling Catheter # Bowel Movements 50 - Labs CBC & Chem 7: 05/27/21 05:16 05/27/21 05:16 Labs: Abnormal Lab Results - Last 24 Hours (Table) 05/26/21 05/26/21 05/26/21 Range/Units 05:20 11:42 12:00 Hgb (11.4-16.0) gm/dL Hct (34.0-46.0) % RDW (11.5-15.5) % ABG pH (7.35-7.45) ABG HCO3 (21-25) mmol/L ABG Total CO2 (19-24) mmol/L ABG O2 Saturation (94-97) % Potassium (3.5-5.1) mmol/L Carbon Dioxide (22-30) mmol/L Glucose (74-99) mg/dL POC Glucose (mg/dL) 34 L 135 H (75-99) mg/dL Calcium (8.4-10.2) mg/dL Phosphorus 2.1 L (2.5-4.5) mg/dL 05/26/21 05/26/21 05/27/21 Range/Units 14:19 14:57 04:25 Hgb (11.4-16.0) gm/dL Hct (34.0-46.0) % RDW (11.5-15.5) % ABG pH (7.35-7.45) ABG HCO3 (21-25) mmol/L ABG Total CO2 (19-24) mmol/L ABG O2 Saturation (94-97) % Potassium (3.5-5.1) mmol/L Carbon Dioxide (22-30) mmol/L Glucose (74-99) mg/dL POC Glucose (mg/dL) 56 L 128 H 116 H (75-99) mg/dL Calcium (8.4-10.2) mg/dL Phosphorus (2.5-4.5) mg/dL 05/27/21 05/27/21 05/27/21 Range/Units 05:16 05:16 05:40 Hgb 10.4 L (11.4-16.0) gm/dL Hct 33.2 L (34.0-46.0) % RDW 16.0 H (11.5-15.5) % ABG pH 7.52 H (7.35-7.45) ABG HCO3 36 H (21-25) mmol/L ABG Total CO2 37 H (19-24) mmol/L ABG O2 Saturation 97.8 H (94-97) % Potassium 3.4 L (3.5-5.1) mmol/L Carbon Dioxide 33 H (22-30) mmol/L Glucose 127 H (74-99) mg/dL POC Glucose (mg/dL) (75-99) mg/dL Calcium 7.1 L (8.4-10.2) mg/dL Phosphorus (2.5-4.5) mg/dL 05/27/21 Range/Units 08:14 Hgb (11.4-16.0) gm/dL Hct (34.0-46.0) % RDW (11.5-15.5) % ABG pH (7.35-7.45) ABG HCO3 (21-25) mmol/L ABG Total CO2 (19-24) mmol/L ABG O2 Saturation (94-97) % Potassium (3.5-5.1) mmol/L Carbon Dioxide (22-30) mmol/L Glucose (74-99) mg/dL POC Glucose (mg/dL) 151 H (75-99) mg/dL Calcium (8.4-10.2) mg/dL Phosphorus (2.5-4.5) mg/dL Microbiology - Last 24 Hours (Table) 05/24/21 17:23 Blood Culture - Preliminary Blood No Growth after 48 hours 05/24/21 17:23 Blood Culture - Preliminary Blood No Growth after 48 hours 05/23/21 09:13 Blood Culture - Preliminary Blood No Growth after 72 hours 05/23/21 08:57 Blood Culture - Preliminary Blood No Growth after 72 hours 05/24/21 15:45 Gram Stain - Final Sputum Sputum Culture - Final
[2021-05-27 15:52] LABS: Glucose,Whole Blood 153 mg/dL (75-99)
[2021-05-27 20:04] LABS: Glucose,Whole Blood 198 mg/dL (75-99)
[2021-05-27] MEDS: AMITRIPTYLINE HCL 10 MG TAB PO SCH (20:14)
[2021-05-27] MEDS: MONTELUKAST 10 MG TAB PO SCH (20:14)
[2021-05-27] MEDS: INSULIN DETEMIR (LEVEMIR) 100 UNIT/ML SYR SQ SCH (21:01)
--- NOTE | 2021-05-27 23:08 | P.PN ---
Subjective Progress Note Date: 05/26/21 Principal diagnosis: Pneumonia Interval history : The patient is a 36-year-old female who presented to the hospital with an episode of unresponsiveness and concern for aspiration pneumonia. The patient subsequently did have worsening of her respiratory status, requiring intubation x2. Currently on the vent. On today's evaluation, 05/26/2021, the patient remains to be afebrile. The patient remains intubated on the vent. FiO2 is currently at 40%. No significant purulent secretions through the ET or diarrhea or any other changes reported by the nursing staff. Objective - Vital Signs Vital signs: Vital Signs Temp 97.6 F 05/26/21 12:00 Pulse 80 05/26/21 15:00 Resp 25 H 05/26/21 15:00 BP 121/77 05/26/21 15:00 Pulse Ox 98 05/26/21 15:00 Intake & Output 05/25/21 05/26/21 05/26/21 18:59 06:59 18:59 Intake Total 1295.088 960 430 Output Total 3160 1525 860 Balance -1864.912 -565 -430 Intake: IV 795 550 160 D5W 285 440 40 Dextrose 5% in Water 1, 340 000 ml @ 40 mls/hr IV . Q24H [facility] Rx#:[id number] Normal Saline 0.9 @ KVO 170 110 120 Intake, IV Titration 70.088 100 0 Amount Norepinephrine 4 mg In 0 Sodium Chloride 0.9% 250 ml @ 0.05 MCG/KG/MIN 9. 601 mls/hr IV .Q24H [facility] Rx#:[id number] propofoL 1,000 mg In 70.088 100 Empty Bag 1 bag @ Titrate IV .Q0M [facility] Rx#: [id number] Tube Feeding 220 220 210 Other 210 90 60 Output: Urine 2660 1525 860 Stool 500 Other: Voiding Method Indwelling Catheter Indwelling Catheter Indwelling Catheter - Exam General description is a middle-aged female intubated on the vent. Respiratory system:Unlabored breathing, decreased intensity of breath sounds. No wheeze. Heart S1, S2.Regular rate and rhythm. Abdomen soft, no tenderness Extremities: No edema feet - Labs CBC & Chem 7: 05/27/21 05:16 05/27/21 05:16 Labs: Abnormal Lab Results - Last 24 Hours (Table) 05/25/21 05/25/21 05/25/21 Range/Units 16:18 20:19 23:45 RBC (3.80-5.40) m/uL Hgb (11.4-16.0) gm/dL Hct (34.0-46.0) % RDW (11.5-15.5) % Metamyelocytes # (Man) (0) k/uL ABG pH (7.35-7.45) ABG pO2 (83-108) mmHg ABG HCO3 (21-25) mmol/L ABG Total CO2 (19-24) mmol/L ABG O2 Saturation (94-97) % Potassium (3.5-5.1) mmol/L Carbon Dioxide (22-30) mmol/L Glucose (74-99) mg/dL POC Glucose (mg/dL) 184 H 199 H 197 H (75-99) mg/dL Calcium (8.4-10.2) mg/dL Phosphorus (2.5-4.5) mg/dL Total Protein (6.3-8.2) g/dL Albumin (3.5-5.0) g/dL 05/26/21 05/26/21 05/26/21 Range/Units 05:20 05:20 05:20 RBC 3.58 L (3.80-5.40) m/uL Hgb 9.8 L (11.4-16.0) gm/dL Hct 30.8 L (34.0-46.0) % RDW 16.0 H (11.5-15.5) % Metamyelocytes # (Man) 0.07 H (0) k/uL ABG pH (7.35-7.45) ABG pO2 (83-108) mmHg ABG HCO3 (21-25) mmol/L ABG Total CO2 (19-24) mmol/L ABG O2 Saturation (94-97) % Potassium 3.4 L (3.5-5.1) mmol/L Carbon Dioxide 33 H (22-30) mmol/L Glucose 108 H (74-99) mg/dL POC Glucose (mg/dL) (75-99) mg/dL Calcium 6.9 L (8.4-10.2) mg/dL Phosphorus 2.1 L (2.5-4.5) mg/dL Total Protein 5.2 L (6.3-8.2) g/dL Albumin 1.6 L (3.5-5.0) g/dL 05/26/21 05/26/21 05/26/21 Range/Units 06:37 11:42 12:00 RBC (3.80-5.40) m/uL Hgb (11.4-16.0) gm/dL Hct (34.0-46.0) % RDW (11.5-15.5) % Metamyelocytes # (Man) (0) k/uL ABG pH 7.54 H (7.35-7.45) ABG pO2 55 L* (83-108) mmHg ABG HCO3 36 H (21-25) mmol/L ABG Total CO2 37 H (19-24) mmol/L ABG O2 Saturation 92.4 L (94-97) % Potassium (3.5-5.1) mmol/L Carbon Dioxide (22-30) mmol/L Glucose (74-99) mg/dL POC Glucose (mg/dL) 34 L 135 H (75-99) mg/dL Calcium (8.4-10.2) mg/dL Phosphorus (2.5-4.5) mg/dL Total Protein (6.3-8.2) g/dL Albumin (3.5-5.0) g/dL 05/26/21 05/26/21 Range/Units 14:19 14:57 RBC (3.80-5.40) m/uL Hgb (11.4-16.0) gm/dL Hct (34.0-46.0) % RDW (11.5-15.5) % Metamyelocytes # (Man) (0) k/uL ABG pH (7.35-7.45) ABG pO2 (83-108) mmHg ABG HCO3 (21-25) mmol/L ABG Total CO2 (19-24) mmol/L ABG O2 Saturation (94-97) % Potassium (3.5-5.1) mmol/L Carbon Dioxide (22-30) mmol/L Glucose (74-99) mg/dL POC Glucose (mg/dL) 56 L 128 H (75-99) mg/dL Calcium (8.4-10.2) mg/dL Phosphorus (2.5-4.5) mg/dL Total Protein (6.3-8.2) g/dL Albumin (3.5-5.0) g/dL Microbiology - Last 24 Hours (Table) 05/23/21 09:13 Blood Culture - Preliminary Blood No Growth after 72 hours 05/23/21 08:57 Blood Culture - Preliminary Blood No Growth after 72 hours 05/24/21 15:45 Gram Stain - Final Sputum Sputum Culture - Final 05/24/21 17:23 Blood Culture - Preliminary Blood No Growth after 24 hours 05/24/21 17:23 Blood Culture - Preliminary Blood No Growth after 24 hours 05/24/21 14:15 Urine Culture - Final Urine,Catheterized Assessment and Plan Plan: 1. Patient with acute respiratory failure, likely multifactorial, with concern for possible component of aspiration pneumonia. The patient's bronch culture has been negative for any resistant pathogen. Patient is currently covered with Zosyn to continue I'll monitor her clinical course closely
--- NOTE | 2021-05-27 23:09 | P.PN ---
Subjective Progress Note Date: 05/27/21 Principal diagnosis: Pneumonia Interval history : The patient is a 36-year-old female who presented to the hospital with an episode of unresponsiveness and concern for aspiration pneumonia. The patient subsequently did have worsening of her respiratory status, requiring intubation x2. Currently on the vent. On today's evaluation, 05/27/2021, the patient remains to be afebrile. The patient remains intubated on the vent. FiO2 is stable at 40%. No significant purulent secretions through the ET or diarrhea has been reported by the nursing staff. Objective - Vital Signs Vital signs: Vital Signs Temp 99.8 F H 05/27/21 20:00 Pulse 86 05/27/21 22:00 Resp 25 H 05/27/21 22:00 BP 103/69 05/27/21 22:00 Pulse Ox 97 05/27/21 22:00 Intake & Output 05/27/21 05/27/21 05/28/21 06:59 18:59 06:59 Intake Total 986.025 9581.787 278.488 Output Total 1385 945 400 Balance -424.445 138.787 -121.512 Weight 49 kg 49 kg Intake: IV 440 450 80 Fluconazole in NaCl,Iso- 50 Osm 100 mg In Saline 1 50ml.bag @ 50 mls/hr IVPB DAILY [facility] Rx#:[id number] Magnesium Sulfate-D5w Pmx 100 1 gm In Dextrose/Water 1 100ml.bag @ 100 mls/hr IVPB Q1H [facility] Rx#: [id number] Normal Saline 0.9 @ KVO 240 200 80 Piperacillin-Tazobactam 3 100 200 .375 gm In Sodium Chloride 0.9% 100 ml @ 25 mls/hr IVPB Q8HR [facility] Rx# :[id number] Intake, IV Titration 88.555 147.787 126.488 Amount Norepinephrine 4 mg In 18.624 10.4 Sodium Chloride 0.9% 250 ml @ 0.05 MCG/KG/MIN 9. 601 mls/hr IV .Q24H [facility] Rx#:[id number] propofoL 1,000 mg In 69.931 137.387 54.488 Empty Bag 1 bag @ Titrate IV .Q0M [facility] Rx#: [id number] propofoL 100 ml @ 0 mls/ 72 hr IV .[facility] Rx#: [id number] Tube Feeding 432 396 72 Other 90 Output: Urine 1235 895 400 Stool 150 50 Other: Voiding Method Indwelling Catheter Indwelling Catheter Indwelling Catheter # Bowel Movements 50 - Exam General description is a middle-aged female intubated on the vent. Respiratory system:Unlabored breathing, decreased intensity of breath sounds. No wheeze. Heart S1, S2.Regular rate and rhythm. Abdomen soft, no tenderness Extremities: No edema feet - Labs CBC & Chem 7: 05/27/21 05:16 05/27/21 05:16 Labs: Abnormal Lab Results - Last 24 Hours (Table) 05/27/21 05/27/21 05/27/21 Range/Units 04:25 05:16 05:16 Hgb 10.4 L (11.4-16.0) gm/dL Hct 33.2 L (34.0-46.0) % RDW 16.0 H (11.5-15.5) % ABG pH (7.35-7.45) ABG HCO3 (21-25) mmol/L ABG Total CO2 (19-24) mmol/L ABG O2 Saturation (94-97) % Potassium 3.4 L (3.5-5.1) mmol/L Carbon Dioxide 33 H (22-30) mmol/L Glucose 127 H (74-99) mg/dL POC Glucose (mg/dL) 116 H (75-99) mg/dL Calcium 7.1 L (8.4-10.2) mg/dL 05/27/21 05/27/21 05/27/21 Range/Units 05:40 08:14 11:46 Hgb (11.4-16.0) gm/dL Hct (34.0-46.0) % RDW (11.5-15.5) % ABG pH 7.52 H (7.35-7.45) ABG HCO3 36 H (21-25) mmol/L ABG Total CO2 37 H (19-24) mmol/L ABG O2 Saturation 97.8 H (94-97) % Potassium (3.5-5.1) mmol/L Carbon Dioxide (22-30) mmol/L Glucose (74-99) mg/dL POC Glucose (mg/dL) 151 H 173 H (75-99) mg/dL Calcium (8.4-10.2) mg/dL 05/27/21 05/27/21 Range/Units 15:50 20:01 Hgb (11.4-16.0) gm/dL Hct (34.0-46.0) % RDW (11.5-15.5) % ABG pH (7.35-7.45) ABG HCO3 (21-25) mmol/L ABG Total CO2 (19-24) mmol/L ABG O2 Saturation (94-97) % Potassium (3.5-5.1) mmol/L Carbon Dioxide (22-30) mmol/L Glucose (74-99) mg/dL POC Glucose (mg/dL) 153 H 198 H (75-99) mg/dL Calcium (8.4-10.2) mg/dL Microbiology - Last 24 Hours (Table) 05/24/21 17:23 Blood Culture - Preliminary Blood No Growth after 72 hours 05/24/21 17:23 Blood Culture - Preliminary Blood No Growth after 72 hours 05/23/21 09:13 Blood Culture - Preliminary Blood No Growth after 96 hours 05/23/21 08:57 Blood Culture - Preliminary Blood No Growth after 96 hours Assessment and Plan Plan: 1. Patient with acute respiratory failure, likely multifactorial, with concern for possible component of aspiration pneumonia. The patient's bronch culture has been negative for any resistant pathogen. Patient is currently covered with Zosyn to continue , Plan is for trach and PEG, mother at the bedside questions were answered
[2021-05-27 23:51] LABS: Glucose,Whole Blood 168 mg/dL (75-99)
[2021-05-28] MEDS: PIPERACILLIN-TAZOBACTAM 3.375 GM in SODIUM CHLORIDE 0.9% 100 ML IVPB SCH ×4 (00:59→23:56)
[2021-05-28 03:40] LABS: Glucose,Whole Blood 173 mg/dL (75-99)
[2021-05-28] MEDS: INSULIN ASPART (NovoLOG) 100 UNIT/ML VIAL SQ SCH ×5 (04:17→20:42)
[2021-05-28 05:19] LABS: ABG Base Excess 13.2 mmol/L; ABG HCO3 36 mmol/L (21-25); ABG Oxygen Saturation 96.7 % (94-97); ABG PCO2 43 mmHg (35-45); ABG PH 7.53 (7.35-7.45); ABG PO2 76 mmHg (83-108); ABG TCO2 37 mmol/L (19-24); Allen Test Performed? Yes
[2021-05-28 05:50] LABS: ALT 7 U/L (4-34); AST 20 U/L (14-36); African American GFR (CKD) >90 (>60 ml/min/1.73 sqM); Albumin 1.8 g/dL (3.5-5.0); Alkaline Phosphatase 88 U/L (38-126); Anion Gap -1 mmol/L; Blood Urea Nitrogen 9 mg/dL (7-17); Calcium 7.3 mg/dL (8.4-10.2); Carbon Dioxide 33 mmol/L (22-30); Chloride 105 mmol/L (98-107); Glucose 172 mg/dL (74-99); Non-African American GFR(CKD) >90 (>60 ml/min/1.73 sqM); Potassium 4.2 mmol/L (3.5-5.1); Sodium 137 mmol/L (137-145); Total Bilirubin 0.3 mg/dL (0.2-1.3); Total Protein 5.4 g/dL (6.3-8.2)
[2021-05-28 06:12] LABS: Anisocytosis Slight; HCT 30.2 % (34.0-46.0); HGB 9.4 gm/dL (11.4-16.0); Hypochromasia Marked; MCH 26.9 pg (25.0-35.0); MCV 86.8 fL (80.0-100.0); Mean Platelet Volume 7.9; Platelet Count 357 k/uL (150-450); Poikilocytosis Slight; RBC 3.48 m/uL (3.80-5.40); WBC 6.8 k/uL (3.8-10.6)
[2021-05-28] MEDS: NOREPINEPHRINE 4 MG in SODIUM CHLORIDE 0.9% 250 ML IV SCH (07:11)
[2021-05-28] MEDS: THIAMINE 100 MG TAB PO SCH ×2 (07:12→17:05)
[2021-05-28 07:22] LABS: Band Neutrophils % 2 %; Lymphocytes # (M) 2.58 k/uL (1.0-4.8); Monocytes # (M) 0.54 k/uL (0-1.0); Neutrophils % (M) 52 %; Nucleated Red Blood Cells 0 /100 WBC (0-0); Total Cells Counted 100
--- NOTE | 2021-05-28 08:21 | XR ---
EXAMINATION TYPE: XR chest 1V portable DATE OF EXAM: 05/28/2021 COMPARISON: Chest x-ray 05/27/2021 HISTORY: Intubated TECHNIQUE: Single frontal view of the chest is obtained. FINDINGS: Endotracheal tube, NG tube, right-sided PICC line are stable and overlying appropriate pos itions. No evident pneumothorax or pleural effusion. Cardiac mediastinal silhouette is stable. Bilate ral airspace disease is again noted within the lungs. IMPRESSION: Findings are similar to prior exam. Correlate for pneumonia, edema, ARDS
[2021-05-28 08:54] LABS: Glucose,Whole Blood 150 mg/dL (75-99)
[2021-05-28] MEDS: NYSTATIN 100,000 UNIT/ML SUSP 500,000 UNIT/5 ML CUP PO SCH ×4 (10:00→21:01)
[2021-05-28] MEDS: CHLORHEXIDINE GLUCONATE 15 ML CUP MUCOUS MEM SCH ×2 (10:00→20:13)
[2021-05-28] MEDS: FLUCONAZOLE IN NACL,ISO-OSM 100 MG in SALINE 1 50ML.BAG IVPB SCH (10:00)
[2021-05-28] MEDS: ZINC SULFATE 220 MG CAP PO SCH (10:00)
[2021-05-28] MEDS: PREGABALIN 75 MG CAP PO SCH ×3 (10:00→21:00)
[2021-05-28] MEDS: CHOLECALCIFEROL 25 MCG (1000 IU) TABLET PO SCH (10:00)
[2021-05-28] MEDS: ESCITALOPRAM 20 MG TAB PO SCH (10:00)
[2021-05-28] MEDS: MAG HYDROX/AL HYDROX/SIMETH 30 ML, LIDOCAINE VISCOUS 30 ML, diphenhydrAMINE ELIXIR 75 M... PO SCH ×12 (10:00→20:57)
[2021-05-28] MEDS: PANTOPRAZOLE 40 MG/10 ML VIAL IVP SCH (10:00)
[2021-05-28 11:30] LABS: Glucose,Whole Blood 164 mg/dL (75-99)
[2021-05-28] MEDS: FOLIC ACID 1 MG TAB PO SCH (12:19)
[2021-05-28] MEDS: MULTIVITAMINS, THERA 1 EACH TAB PO SCH (12:23)
--- NOTE | 2021-05-28 14:53 | P.PN ---
Subjective Progress Note Date: 05/28/21 This is a 36-year-old old female, seen in the emergency room, room 10. The patient was just discharged out of the hospital yesterday, May 16. The patient apparently returned to the emergency room, with a low blood sugar. She was brought in by EMS. She apparently has no memory of why she was in the ospital. She apparently was hungry when she came into the ER. She complained of back pain. Her blood glucose on arrival was 36. The patient was in the hospital recently for a left-sided pneumonia. The patient also has a history of diabetes with diabetic ketoacidosis. The patient is currently on O2 at 2 L. She's getting D5 0.9 at 75 mL an hour. She was given Augmentin, but we discontinued it in favor of Zosyn. The patient has a history of diabetes, diabetic neuropathy, chronic low back pain, migraine cephalgia, chronic constipation, and prior MRSA infection. White count 21.9, hemoglobin 8.8, hematocrit 28.7, and platelet count 474,000. Sodium 129, potassium 4.4, chlorides 102, CO2 24, anion gap 3, BUN 7, with a creatinine of 0.29. Albumin is 2. Urine is light yellow in color, and cloudy, leukocyte esterase being small positive, 9 WBCs, and rare bacteria. Drug screen is negative. Testing for ilng virus was negative. Chest x-ray shows bilateral pneumonia, with dense consolidation within the left lung, and much less infiltrate in the right base. Progress note dated 05/18/2021. This is a 36-year-old female, who was seen in the emergency department in consultation yesterday, and room 10. The patient was recently discharged from the hospital on May 16. She was brought back in for mental status changes, and a low blood sugar. Apparently her blood glucose was only 36. Her prior admission was for diabetic ketoacidosis, and left-sided ammonia. Currently, she is back to her normal self. The patient is on 4 L nasal O2. She's not complaining of any respiratory distress or difficulty. She has a dry nonproductive cough. She was placed on Zosyn yesterday by our team. She was seen by infectious diseases. She has a history of diabetes, diabetic neuropathy , chronic low back pain, migraine cephalgia, chronic constipation, and prior MRSA infection. Currently, white count 19.3, he will been 7.2, hematocrit 24, and platelet count 449,000. Sodium 133, potassium 3.8, chlorides 100, CO2 21, anion gap 12, UN 7, and creatinine 0.4. Pro-calcitonin level is 0.15. C- reactive protein is 5.7. On today's evaluation of 05/19/2021, the patient is doing well. The patient is awake and alert. No signs of any significant respiratory distress. The patient was restarted back on IV Zosyn. The chest x-ray showed extensive consolidation of the left lung and the CAT scan of the chest also confirmed the same findings. The patient was Hospital as because of hypoglycemia. The patient altered mentation and she recovered fully. She is currently on Levemir 20 units along with sliding scale coverage. She is also on D5 water running at 100 mL an hour. Antibiotic coverage with IV Zosyn. Blood work shows a white cell count 12.4 with hemoglobin 8.5, BUN is at 5 with a creatinine of 0.4 and his sodium is at 134 with a potassium level of 3.3. The COVID 19 test that was negative. Urine drug screen was negative. Pro-calcitonin level has been consistently low. A focused on level was at 0.15. The patient currently is on oxygen 4 L per minute nasal cannula. She is afebrile. She is medically and hemodynamically stable at this point in time. She has poor dental conditions and poor oral hygiene. She has also developed some ulceration over the tip of the tongue probably related to candidal infection. On 2021, the patient's condition decompensated and the patient got transferred to the intensive care unit for respiratory support. Overnight, the patient became progressively more hypoxemic and short of breath. She was given a dose of Lasix 40 mg IV push without any much improvement. She was becoming also more lethargic and short of breath. She got transferred to the ICU. Currently she is on a BiPAP at a pressure of 12/6 cm of water with an FiO2 of 100%. Her Pulse Ox Is 99%. A Chest X-Ray Showed Extensive Consolidation of the Left Lung. There Are Some Air Bronchograms on the Left. At the Same Time There Are Some Air Pockets in the Left [place] Which Makes Me Concerned about an Underlying Cavitation/Abscess Formation. At the Same Time, There Is Progression of the Airspace Disease and There Is Development of New Patchy Opacities in the Right Midlung and the Right Lower Lung. Note That the Patient Was Covered with IV Zosyn for Any Potential Aspiration Pneumonia.Pro-Calcitonin Level Was at 0.15. Currently She Is on BiPAP Which Is Quite Comfortable. She instructed BiPAP dependent. The patient easily decompensates and desaturates 1 she's taken off the BiPAP. Note that she also had extensive oropharyngeal candidiasis and ulceration of the tongue for which she was given Diflucan. I added cold solution on her yesterday. She is unable to do adequate oral care as the patient is BiPAP dependent. In terms of IV fluids, the patient is on D5 water running at 40 mL an hour. This was started due to concerns of underlying episodes of hypoglycemia. She is a very brittle diabetic. Her blood sugars are all over the place. She is currently on Levemir insulin 20 units a day along with a sliding scale coverage. The Levemir insulin was given today. She is not eating much at this point in time as the patient is BiPAP dependent. Other blood work, her white cell count of 19.0 which is higher compared to yesterday. Hemoglobin is at 7.8. The blood gas while on 100% BiPAP initially showed a pH of 7.37 with a pCO2 of 46 and pO2 of 50. Current saturations up to 90%. Sodium is at 130 with a potassium level of 3.4 and a serum bicarb of 23 with a mean of 4 and a creatinine of 0.4. Her albumin is down to 2.0 with a total protein of 5.7. Cultures for now are negative in terms of blood culture. Note that the patient had MRSA and E. coli and strep in her urine back in 05/09/2021. She has also has had a previous MRSA wound infection involving the scalp. She is arousable. She is a bit lethargic. No agitation. On 05/21/2021 patient seen in follow-up in the intensive care unit, she currently remains on BiPAP support as of 12 and 600%, and her pulse ox is 99- 100%, she is awake and alert, oriented 3, she is extremely thirsty and hungry, does not appear to be in any acute distress, no complaints of worsening dyspnea, she seems to be breathing comfortably, nursing staff reports that patient was able to come off the BiPAP support to take sips of water, oral care, and pills, and patient tolerates being off BiPAP support better although she does desaturate. She is afebrile, hemodynamically she is stable, she remains on a combination of meropenem and vancomycin and Diflucan which were modified yesterday. Blood cultures have been negative thus far, she's been afebrile, no hemoptysis, no complaints of chest discomfort. Produced 5.2 L in urine output in response to Lasix, and she is in -3.8 L net fluid balance over the last 24 hours, today's chest x-ray has been reviewed, showing stable diffuse bilateral airspace disease. Absent been reviewed, white blood cell count is 20.2, hemoglobin is 7.9, platelet count is 482, serum sodium is 133, potassium 3.7, chloride is 104, CO2 is 24, B1 is 5 creatinine 0.42. Her last pro-calcitonin level from 05/18/2021 was 0.15. On 05/22/2021 patient seen in follow-up in intensive care unit, last night during an episode of getting cleaned up after having a bowel movement patient complained of not feeling well, she certainly became unresponsive, she started desaturating, her respirations became very agonal and rapid response team was called for ERIC BLUE. There was no seizure activity noted prior to the event, patient was not desaturating just prior to that, no arrhythmias were noted other than bradycardia after she had started desaturating. During the code patient did not lose her pulse, her pulse ox was down to 66% on high flow Airvo, she was emergently intubated and placed on mechanical ventilator, chest x-ray shows severe ARDS, she was hypotensive and received IV fluids and received norepinephrine infusion which is currently still infusing at 0.06 mics per kilo per minute, she was not hypoglycemic and her blood sugar at that time was 177, she had D5W infusing at 40, and she was starting to take in some oral intake. This morning she is sedated, intubated on assist control mode of ventilation with a rate of 16, tidal, 350, FiO2 is currently at 50% and PEEP of 8, this morning's blood gas shows pO2 of 102, pCO2 of 43, pH is 7.34, this was done on 70% FiO2 which had since been dropped down to 50%, this morning's chest x-ray was reviewed showing moderately severe pulmonary air space edema, without significant change compared to yesterday. The patient is in sinus mechanism, blood pressure is 112/72, currently on meropenem, vancomycin and Diflucan for aspiration pneumonia, blood cultures have been negative, patient has not been able to produce a sputum culture for us. Her labs reveal white blood cell count of 26.8 which is increased since yesterday from 20.2, hemoglobin of 7.9, platelet count of 530, sodium is 134, potassium is 4.0, chloride is 107, CO2 is 21, BUN is 7 creatinine 0.52, her glucose this morning is 203, LFTs were within normal limits, her last pro-calcitonin level from a few days ago was 0.15. Yesterday patient was given a liter bolus after she became intubated, she is producing urine in the order of 30-75 ML per hour, her Lasix is on hold. On 05/23/2021 patient seen in follow-up in the intensive care unit, she is sedated, intubated on mechanical ventilator with a assist control mode of ventilation and rate of 16, tidal emesis 50, FiO2 of 60% and PEEP of 8, this morning's blood gas was reviewed showing O2 of 154, pCO2 of 45, and pH of 7.37. Is currently on Diprivan at 40 mics per kilo per minute, Levaquin is at 3 mics per minute, 0.9 saline at any ML per hour. Today's chest x-ray showing persistent but improving bilateral airspace disease, right greater than left. There is some blood work has been reviewed showing white blood cell count of 13.4, hemoglobin of 7.3, sodium of 140, potassium is 3.9, chloride is 110, CO2 of 22, BUN of 6, creatinine of 0.62, this morning his glucose was 221. Recent have fevers overnight with a T-max of 101.5F. She currently remains on combination of meropenem, vancomycin and Diflucan. Patient is status post bronchoscopy and bronchoalveolar lavage on 05/22/2021, and BAL cultures are still pending. Gram stain showed no organisms thus far. Patient is tolerating tube feedings with vital HP at a rate of 20 ML per hour, Orellana catheter is in place, and patient is producing urine in the order of 50 to 100 mL per hour. On 05/24/2021 , is being seen for a follow-up. Note that the patient was extubated successfully yesterday. Extubation process went fine and the patient was doing very well on a nasal cannula oxygen. At around midnight, the patient acutely decompensated. She became short of breath and hypoxic. Her blood. This was done that showed acute respiratory acidosis with a pH of 7.24 with a pCO2 of 67 and pO2 of 80 and this was identified to 100%. He became acutely unresponsive and significant respiratory distress was noted by the nursing staff. At that point, it was decided that he intubated the patient. The patient is currently intubated on a mechanical ventilator. The patient is sedated with propofol which is running at 30 mcg/kg per minute to maintain synchrony with the mechanical ventilator. She is on assist control mode at the rate of 25, tidal volume of 350, FiO2 has been weaned down to 50% and the patient currently is in a PEEP of 10. Post intubation blood gases showed a pH of 7.48 with a pCO2 of 43 and pO2 of more than 400 and this was on FiO2 100%. Morning blood work also showed a drop in hemoglobin down to 6.1 from a baseline of 7.3. No evidence of any acute bleeding. No evidence of any hematemesis or melanotic stools. The patient will be given a total of 2 units of packed RBCs. Also, the patient is covered with broad-spectrum antibiotics patient remains on a combination of meropenem, vancomycin and Diflucan. The cultures from the bronchioloalveolar lavage was done earlier came back all negative. The repeat chest x-ray from today is showing adequate placement of the orotracheal tube. The patient continues to have bilateral pulmonary infiltrates. However, there is significant interval improvement in the bilateral pulmonary infiltrates compared to earlier chest x-rays. The white cycles of 7.12. Renal function is stable with a creatinine of 0.5 and a BUN of 7. Sodium level is at 144. Potassium level is at 3.2 and a K level will be replaced. The patient was restarted again on enteral feeding and this will be restarted today. Meanwhile, in terms of blood sugar control, the patient is receiving Levemir insulin 20 units once a day and a sliding scale coverage. Blood sugars have been maintained adequately and her most recent blood sugar currently is at 172. Her vancomycin felt level from today was 28. 05/25/2021, the patient is awake even on a low dose of propofol at 30 mcg/kg per minute. She is following commands. She wants to get the tube out. She is on a mechanical ventilator at the rate of 25, tidal volumes of 350, PEEP is at 10 and FiO2 is currently at 40%. PH is at 7.48 with a pCO2 of 43 and pO2 of 113. The lavage from the lungs did not yield any microbial growth. The patient continues to have diffuse bilateral pulmonary infiltrates and there is extensive consolidation bilaterally more so on the right. White secondary to 6.7. Hemoglobin is at 10.1 platelet count is at 356. Creatinine stable at 0.4. BUN is at 7. Sodium is at 139. LFTs are normal. Blood sugars at 168. The patient remains on a broad-spectrum antibiotic coverage. The patient is receiving IV Diflucan, IV vancomycin and IV meropenem. There was always the concern of aspiration in this patient as the patient developed initially extensive left lung consolidation subsequently infiltrates moved to the right. The bronchoscopy was done yielded no significant respiratory secretions or microbial growth at this point in time. She is on Levemir insulin and a sliding scale coverage. She is on no pressors for now. She is is slightly positive over the past 24 hours. The patient was receiving enteral feeding for nutritional support. She is currently on vital high protein at the rate of 20 mL an hour. No hypoglycemic attacks. As mentioned, she is easily arousable and she is moving all 4 extremities without any limitation. No fever. No significant leukocytosis. All of the cultures are negative. She remains on D5W at the rate of 75 mL an hour. No reported abdominal pain. LFTs are normal. Ultrasound abdomen showed a questionable gallbladder wall thickening and a calculus cholecystitis. On 05/26/2021 patient seen in follow-up in the intensive care unit, she is currently sedated, and intubated, on assist-control mode of ventilation with a rate of 25, tidal 350, FiO2 of 50% and PEEP of 5, this morning's blood gas shows pO2 of 55, pCO2 of 41, and pH of 7.54 and this was done and FiO2 of 40% and subsequently FiO2 was increased to 55%. She's currently on point and within indurated 20 ML per hour, norepinephrine drip has been off for over 12 hours, and improving and is at 30 mics per kilo per minute, she is on a vital high protein at a rate of 20 with standard water flushes 30 mL every 4 hours, today's chest x-ray has been reviewed showing bilateral multifocal confluent opacities. No significant change from one day earlier. Patient remains on a combination of antibiotics with Zosyn, vancomycin and Diflucan. Patient is status post bron choscopy with bronchoalveolar lavage on 05/22/2021, and so far BAL cultures are all negative, sputum and blood cultures and urine were all negative. Today's labs have been reviewed, white blood cell count is improved and is down to 7.3, hemoglobin is 9.8, sodium is 137, potassium is 3.4, chloride is 105, BUN is 8, creatinine 0.53. Hemodynamic patient is stable, she is in sinus mechanism, she has had no acute events overnight. No febrile episodes. He is currently likely sedated, she is opening eyes to verbal stimulation, and she seems to be following simple commands. Her LFTs are within normal limits. On 05/27/2021 patient seen in follow-up in the intensive care unit, she is lightly sedated, she opens her eyes to voice, she is following simple commands, does not appear to be in any acute distress, she still intubated, on assist- control mode of ventilation with a rate of 25, Tylenol level was 350, FiO2 of 50% and PEEP of 5, this morning's blood gas shows pO2 of 85, pCO2 44, and pH of 7.52. This was done on the above-mentioned ventilator settings. Today's chest x-ray changed to show patchy bilateral lung infiltrates that are stable in appearance. Vital signs have been stable overnight, no fever, no chills. All of her cultures including BAL cultures remained negative. Patient remains on a combination of antibiotics with Diflucan, Zosyn and vancomycin. She did require small dose of norepinephrine on which she remains, currently infusing at a rate of 3.9 mics per minute. Current blood pressure is 140/89, and norepinephrine can be discontinued. Urine output is in the order of 50 TOPD ML per hour. Patient is receiving the program at 30 mics per kilo per minute, and IV fluids are 0.9 normal saline at a rate of 20 ML per hour, she is tolerating tube feedings with vital AF at a rate of 36 with a goal of 36 and standard water flushes. Today's labs have been reviewed showing white blood cell, 7.4, hemoglobin of 10.4, platelet count of 377, sodium is 137, potassium is 3.4, chloride is 105, CO2 of 33, BUN of 9 creatinine 0.56 On 05/28/2021 patient is seen in follow-up in the intensive care unit, she is slightly sedated, she is awake, alert, she is following command, she still intubated on mechanical ventilator, on assist control mode of ventilation with a rate of 25, tidal volume 350, FiO2 of 40% and PEEP of 5. This was blood gas shows pO2 of 76, P CO2 of 43, and pH is 7.53 this was done on the above- mentioned ventilator settings, she is currently on 30 mics of dopamine, 0.9 normal seen at a rate of 20 ML per hour, tube feedings have been placed on hold for tracheostomy and PEG tube placement possibly today, she is hemodynamically stable, not requiring any vasopressor support. She is in sinus mechanism with a rate of 76 BPM, he had no acute events overnight, today's chest x-ray showing no evident pneumothorax, bilateral airspace disease similar to the prior exam, she said no fever or chills, vital signs have been stable overnight, she said no acute events, remains on the same antibiotics with a combination of Diflucan, Zosyn. Ankle Meissen has been discontinued, ID service is following. Her BAL cultures have shown no growth, urine, and blood cultures have been negative as well. Today's labs have been reviewed, her white blood cell count is 6.8, hemoglobin is 9.4, sodium is 137, potassium is 4.2, chloride is 105, CO2 is 23, BUN of 9, creatinine 0.59. Objective - Vital Signs Vital signs: Vital Signs Temp 97.4 F L 05/28/21 12:00 Pulse 73 05/28/21 14:00 Resp 25 H 05/28/21 14:00 BP 105/73 05/28/21 14:00 Pulse Ox 95 05/28/21 14:00 Intake & Output 05/27/21 05/28/21 05/28/21 18:59 06:59 18:59 Intake Total 1083.787 660.134 453.008 Output Total 945 1825 545 Balance 138.787 -1164.866 -91.992 Weight 49 kg 52 kg Intake: IV 450 340 260 Fluconazole in NaCl,Iso- 50 Osm 100 mg In Saline 1 50ml.bag @ 50 mls/hr IVPB DAILY [facility] Rx#:[id number] Normal Saline 0.9 @ KVO 200 240 160 Piperacillin-Tazobactam 3 200 100 100 .375 gm In Sodium Chloride 0.9% 100 ml @ 25 mls/hr IVPB Q8HR [facility] Rx# :[id number] Intake, IV Titration 147.787 212.134 73.008 Amount Norepinephrine 4 mg In 10.4 1.44 Sodium Chloride 0.9% 250 ml @ 0.05 MCG/KG/MIN 9. 601 mls/hr IV .Q24H [facility] Rx#:[id number] propofoL 1,000 mg In 137.387 138.694 73.008 Empty Bag 1 bag @ Titrate IV .Q0M [facility] Rx#: [id number] propofoL 100 ml @ 0 mls/ 72 hr IV [facility] Rx#: [id number] Tube Feeding 396 108 Other 90 120 Output: Urine 895 1075 545 Stool 50 750 Other: Voiding Method Indwelling Catheter Indwelling Catheter Indwelling Catheter - Exam GENERAL EXAM: Likely sedated and intubated 36-year-old frail looking white female, on AC 25, TV 350, Fio2 40%, and PEEP of 5, comfortable in no apparent distress. HEAD: Normocephalic/atraumatic. EYES: Normal reaction of pupils, equal size. Conjunctiva pink, sclera white. NOSE: Clear with pink turbinates. MOUTH: She has ulcerations of her oral cavity THROAT: No erythema or exudates. NECK: No masses, no JVD, no thyroid enlargement, no adenopathy. CHEST: No chest wall deformity. Symmetrical expansion. LUNGS: diminished air entry with crackles, no wheeze, no rhonchi or dullness. CVS: Regular rate and rhythm, normal S1 and S2, no gallops, no murmurs, no rubs ABDOMEN: Soft, nontender. No hepatosplenomegaly, normal bowel sounds, no guarding or rigidity. EXTREMITIES: No clubbing, no edema, no cyanosis, 2+ pulses and upper and lower extremities. MUSCULOSKELETAL: Muscle strength and tone normal. SPINE: No scoliosis or deformity SKIN: No rashes CENTRAL NERVOUS SYSTEM: Intubated and sedated. No focal deficits, tone is normal in all 4 extremities. - Labs CBC & Chem 7: 05/28/21 05:07 05/28/21 05:07 Labs: Abnormal Lab Results - Last 24 Hours (Table) 05/27/21 05/27/21 05/27/21 Range/Units 15:50 20:01 23:50 RBC (3.80-5.40) m/uL Hgb (11.4-16.0) gm/dL Hct (34.0-46.0) % RDW (11.5-15.5) % ABG pH (7.35-7.45) ABG pO2 (83-108) mmHg ABG HCO3 (21-25) mmol/L ABG Total CO2 (19-24) mmol/L Carbon Dioxide (22-30) mmol/L Glucose (74-99) mg/dL POC Glucose (mg/dL) 153 H 198 H 168 H (75-99) mg/dL Calcium (8.4-10.2) mg/dL Total Protein (6.3-8.2) g/dL Albumin (3.5-5.0) g/dL 05/28/21 05/28/21 05/28/21 Range/Units 03:39 05:07 05:07 RBC 3.48 L (3.80-5.40) m/uL Hgb 9.4 L (11.4-16.0) gm/dL Hct 30.2 L (34.0-46.0) % RDW 16.0 H (11.5-15.5) % ABG pH (7.35-7.45) ABG pO2 (83-108) mmHg ABG HCO3 (21-25) mmol/L ABG Total CO2 (19-24) mmol/L Carbon Dioxide 33 H (22-30) mmol/L Glucose 172 H (74-99) mg/dL POC Glucose (mg/dL) 173 H (75-99) mg/dL Calcium 7.3 L (8.4-10.2) mg/dL Total Protein 5.4 L (6.3-8.2) g/dL Albumin 1.8 L (3.5-5.0) g/dL 05/28/21 05/28/21 05/28/21 Range/Units 05:09 08:53 11:28 RBC (3.80-5.40) m/uL Hgb (11.4-16.0) gm/dL Hct (34.0-46.0) % RDW (11.5-15.5) % ABG pH 7.53 H (7.35-7.45) ABG pO2 76 L (83-108) mmHg ABG HCO3 36 H (21-25) mmol/L ABG Total CO2 37 H (19-24) mmol/L Carbon Dioxide (22-30) mmol/L Glucose (74-99) mg/dL POC Glucose (mg/dL) 150 H 164 H (75-99) mg/dL Calcium (8.4-10.2) mg/dL Total Protein (6.3-8.2) g/dL Albumin (3.5-5.0) g/dL Microbiology - Last 24 Hours (Table) 05/23/21 09:13 Blood Culture - Preliminary Blood No Growth after 120 hours 05/23/21 08:57 Blood Culture - Preliminary Blood No Growth after 120 hours 05/24/21 17:23 Blood Culture - Preliminary Blood No Growth after 72 hours 05/24/21 17:23 Blood Culture - Preliminary Blood No Growth after 72 hours Assessment and Plan Plan: Assessment: #1. Acute hypoxic respiratory failure related to worsening and progression of pneumonia, and chest x-ray showing patchy consolidation involving the right midlung, right upper lobe and right lower lobe in addition to extensive consolidation of the left lung with possibly some cavitation. Patient is currently covered with meropenem and vancomycin, her antibiotics have been modified yesterday, initially covered with Zosyn, patient was doing well on Airvo on 05/21/2021, was clinically improving, but suffered acute respiratory arrest on 05/21/2021 and was intubated, patient was successfully weaned and extubated on 05/23/2021 however failed again and had to be reintubated later that evening on 05/23/2021. In view of multiple episodes of respiratory failure patient will be considered for tracheostomy and PEG tube placement for weaning. Patient is status post bronchoscopy with bronchoalveolar lavage on 05/23/2021, so far BAL cultures are all negative. #2. Altered mental status secondary to hypoglycemia. Patient had recovered, and she was back to baseline neurologically. Currently lightly sedated, patient is still intubated, but patient is following all commands #3. History of diabetes, and recent episode of diabetic ketoacidosis, recovered. Levemir insulin has been discontinued and patient is currently covered with sliding scale NovoLog, her last episode of hypoglycemia was on 05/19/2021 with a blood sugar of 45. No recurrence of hypoglycemia since #4. History of syncopal episodes related to hypoglycemia #5. History of migraine cephalgia #6. History of diabetic neuropathy #7. Chronic constipation #8. Chronic low back pain #9. Tongue and oral pharyngeal candidiasis, with ulcerations #10. Previous history of MRSA infection in the laceration of the scalp #11. Chronic anemia with interval drop in hemoglobin down to 6.1 without evidence of any active GI bleeding, status post transfusion with 1 unit of packed red blood cells Plan: Todays labs, chest x-ray and blood gases reviewed Chest x-ray showing stable bilateral airspace disease Continue same ventilator settings, drop FiO2 down to 40% All cultures including BAL cultures are negative thus far Continue Diflucan and Zosyn, vancomycin has been discontinued Tube feedings are on hold Patient is scheduled for tracheostomy and PEG tube placement today for recurrent episodes of respiratory failure requiring reintubation and placement on mechanical ventilator Continue closely following the patient in the postoperative period Follow-up labs, blood gases and chest x-ray in the morning I performed a history & physical examination of the patient and discussed their management with my nurse practitioner, Dania Negorn. I reviewed the nurse practitioner's note and agree with the documented findings and plan of care. Lung sounds are positive for dim breath sounds throughout the lung abbott. The findings and the impression was discussed with the patient. I attest to the documentation by the nurse practitioner. Time with Patient: Greater than 30
--- NOTE | 2021-05-28 15:45 | P.PN ---
Subjective Progress Note Date: 05/28/21 CHIEF COMPLAINT: Hypoglycemia HISTORY OF PRESENT ILLNESS: The patient currently in the ICU with acute hypoxic respiratory failure secondary to pneumonia. She is currently intubated. She was initially scheduled for tracheostomy and PEG tube placement today. However, due to issues with surgical staffing procedure will be rescheduled for tomorrow. WBC 6.8 hemoglobin 9.4 potassium 4.2 PHYSICAL EXAM: VITAL SIGNS: Reviewed. GENERAL: Well-developed in no acute distress. HEENT: No sclera icterus. Extraocular movements grossly intact. Moist buccal mucosa. Head is atraumatic, normocephalic. ABDOMEN: Soft. Nondistended. Nontender. ASSESSMENT: 1. Acute hypoxic respiratory failure secondary to pneumonia. Patient was extubated and required to be reintubated on 05/23/2021 2. Severe protein calorie malnutrition 3. Hypokalemia PLAN: -Patient rescheduled for tracheostomy and PEG tube placement tomorrow, 05/29/[address] Matias at bedside -Hold tube feedings after midnight -[facility] has been reviewed by physician. Signing provider agrees with the documented findings, assessment, and plan of care. Objective - Vital Signs Vital signs: Vital Signs Temp 97.4 F L 05/28/21 12:00 Pulse 78 05/28/21 15:00 Resp 25 H 05/28/21 15:00 BP 94/69 05/28/21 15:00 Pulse Ox 95 05/28/21 15:00 Intake & Output 05/27/21 05/28/21 05/28/21 18:59 06:59 18:59 Intake Total 1083.787 660.134 473.008 Output Total 945 1825 620 Balance 138.787 -1164.866 -146.992 Weight 49 kg 52 kg Intake: IV 450 340 280 Fluconazole in NaCl,Iso- 50 Osm 100 mg In Saline 1 50ml.bag @ 50 mls/hr IVPB DAILY [facility] Rx#:[id number] Normal Saline 0.9 @ KVO 200 240 180 Piperacillin-Tazobactam 3 200 100 100 .375 gm In Sodium Chloride 0.9% 100 ml @ 25 mls/hr IVPB Q8HR [facility] Rx# :[id number] Intake, IV Titration 147.787 212.134 73.008 Amount Norepinephrine 4 mg In 10.4 1.44 Sodium Chloride 0.9% 250 ml @ 0.05 MCG/KG/MIN 9. 601 mls/hr IV .Q24H [facility] Rx#:[id number] propofoL 1,000 mg In 137.387 138.694 73.008 Empty Bag 1 bag @ Titrate IV .Q0M [facility] Rx#: [id number] propofoL 100 ml @ 0 mls/ 72 hr IV .[facility] Rx#: [id number] Tube Feeding 396 108 Other 90 120 Output: Urine 895 1075 620 Stool 50 750 Other: Voiding Method Indwelling Catheter Indwelling Catheter Indwelling Catheter - Labs CBC & Chem 7: 05/28/21 05:07 05/28/21 05:07 Labs: Abnormal Lab Results - Last 24 Hours (Table) 05/27/21 05/27/21 05/27/21 Range/Units 15:50 20:01 23:50 RBC (3.80-5.40) m/uL Hgb (11.4-16.0) gm/dL Hct (34.0-46.0) % RDW (11.5-15.5) % ABG pH (7.35-7.45) ABG pO2 (83-108) mmHg ABG HCO3 (21-25) mmol/L ABG Total CO2 (19-24) mmol/L Carbon Dioxide (22-30) mmol/L Glucose (74-99) mg/dL POC Glucose (mg/dL) 153 H 198 H 168 H (75-99) mg/dL Calcium (8.4-10.2) mg/dL Total Protein (6.3-8.2) g/dL Albumin (3.5-5.0) g/dL 05/28/21 05/28/21 05/28/21 Range/Units 03:39 05:07 05:07 RBC 3.48 L (3.80-5.40) m/uL Hgb 9.4 L (11.4-16.0) gm/dL Hct 30.2 L (34.0-46.0) % RDW 16.0 H (11.5-15.5) % ABG pH (7.35-7.45) ABG pO2 (83-108) mmHg ABG HCO3 (21-25) mmol/L ABG Total CO2 (19-24) mmol/L Carbon Dioxide 33 H (22-30) mmol/L Glucose 172 H (74-99) mg/dL POC Glucose (mg/dL) 173 H (75-99) mg/dL Calcium 7.3 L (8.4-10.2) mg/dL Total Protein 5.4 L (6.3-8.2) g/dL Albumin 1.8 L (3.5-5.0) g/dL 05/28/21 05/28/21 05/28/21 Range/Units 05:09 08:53 11:28 RBC (3.80-5.40) m/uL Hgb (11.4-16.0) gm/dL Hct (34.0-46.0) % RDW (11.5-15.5) % ABG pH 7.53 H (7.35-7.45) ABG pO2 76 L (83-108) mmHg ABG HCO3 36 H (21-25) mmol/L ABG Total CO2 37 H (19-24) mmol/L Carbon Dioxide (22-30) mmol/L Glucose (74-99) mg/dL POC Glucose (mg/dL) 150 H 164 H (75-99) mg/dL Calcium (8.4-10.2) mg/dL Total Protein (6.3-8.2) g/dL Albumin (3.5-5.0) g/dL Microbiology - Last 24 Hours (Table) 05/23/21 09:13 Blood Culture - Preliminary Blood No Growth after 120 hours 05/23/21 08:57 Blood Culture - Preliminary Blood No Growth after 120 hours 05/24/21 17:23 Blood Culture - Preliminary Blood No Growth after 72 hours 05/24/21 17:23 Blood Culture - Preliminary Blood No Growth after 72 hours
[2021-05-28 15:51] LABS: Glucose,Whole Blood 116 mg/dL (75-99)
[2021-05-28] MEDS: MONTELUKAST 10 MG TAB PO SCH (20:14)
[2021-05-28] MEDS: AMITRIPTYLINE HCL 10 MG TAB PO SCH (20:14)
[2021-05-28 20:43] LABS: Glucose,Whole Blood 135 mg/dL (75-99)
[2021-05-28] MEDS: INSULIN DETEMIR (LEVEMIR) 100 UNIT/ML SYR SQ SCH (20:54)
[2021-05-28] MEDS: MORPHINE SULFATE 2 MG/ML SYRINGE IVP PRN (21:00)
--- NOTE | 2021-05-28 21:25 | P.PN ---
Subjective Progress Note Date: 05/28/21 Principal diagnosis: Pneumonia Interval history : The patient is a 36-year-old female who presented to the hospital with an episode of unresponsiveness and concern for aspiration pneumonia. The patient subsequently did have worsening of her respiratory status, requiring intubation x2. Currently on the vent. On today's evaluation, 05/28/2021, The patient continues to be afebrile, the patient remains to be intubated on the vent and FiO2 is stable at 40%, the patient is awake and trying to communicate currently waiting for trach and PEG no significant purulent secretion through the ET or diarrhea has been reported by the nursing staff Objective - Vital Signs Vital signs: Vital Signs Temp 97.6 F 05/28/21 20:00 Pulse 68 05/28/21 20:00 Resp 25 H 05/28/21 20:00 BP 115/79 05/28/21 20:00 Pulse Ox 96 05/28/21 20:00 Intake & Output 05/28/21 05/28/21 05/29/21 06:59 18:59 06:59 Intake Total 660.134 533.008 40 Output Total 1825 860 320 Balance -1164.866 -326.992 -280 Weight 52 kg Intake: IV 340 340 40 Normal Saline 0.9 @ KVO 240 240 40 Piperacillin-Tazobactam 3 100 100 .375 gm In Sodium Chloride 0.9% 100 ml @ 25 mls/hr IVPB Q8HR [facility] Rx# :[id number] Intake, IV Titration 212.134 73.008 Amount Norepinephrine 4 mg In 1.44 Sodium Chloride 0.9% 250 ml @ 0.05 MCG/KG/MIN 9. 601 mls/hr IV .Q24H [facility] Rx#:[id number] propofoL 1,000 mg In 138.694 73.008 Empty Bag 1 bag @ Titrate IV .Q0M [facility] Rx#: [id number] propofoL 100 ml @ 0 mls/ 72 hr IV .[facility] Rx#: [id number] Tube Feeding 108 Other 120 Output: Urine 1075 860 320 Stool 750 Other: Voiding Method Indwelling Catheter Indwelling Catheter Indwelling Catheter - Exam General description is a middle-aged female intubated on the vent. Respiratory system:Unlabored breathing, decreased intensity of breath sounds. No wheeze. Heart S1, S2.Regular rate and rhythm. Abdomen soft, no tenderness Extremities: No edema feet - Labs CBC & Chem 7: 05/28/21 05:07 05/28/21 05:07 Labs: Abnormal Lab Results - Last 24 Hours (Table) 05/27/21 05/28/21 05/28/21 Range/Units 23:50 03:39 05:07 RBC 3.48 L (3.80-5.40) m/uL Hgb 9.4 L (11.4-16.0) gm/dL Hct 30.2 L (34.0-46.0) % RDW 16.0 H (11.5-15.5) % ABG pH (7.35-7.45) ABG pO2 (83-108) mmHg ABG HCO3 (21-25) mmol/L ABG Total CO2 (19-24) mmol/L Carbon Dioxide (22-30) mmol/L Glucose (74-99) mg/dL POC Glucose (mg/dL) 168 H 173 H (75-99) mg/dL Calcium (8.4-10.2) mg/dL Total Protein (6.3-8.2) g/dL Albumin (3.5-5.0) g/dL 05/28/21 05/28/21 05/28/21 Range/Units 05:07 05:09 08:53 RBC (3.80-5.40) m/uL Hgb (11.4-16.0) gm/dL Hct (34.0-46.0) % RDW (11.5-15.5) % ABG pH 7.53 H (7.35-7.45) ABG pO2 76 L (83-108) mmHg ABG HCO3 36 H (21-25) mmol/L ABG Total CO2 37 H (19-24) mmol/L Carbon Dioxide 33 H (22-30) mmol/L Glucose 172 H (74-99) mg/dL POC Glucose (mg/dL) 150 H (75-99) mg/dL Calcium 7.3 L (8.4-10.2) mg/dL Total Protein 5.4 L (6.3-8.2) g/dL Albumin 1.8 L (3.5-5.0) g/dL 05/28/21 05/28/21 05/28/21 Range/Units 11:28 15:50 20:41 RBC (3.80-5.40) m/uL Hgb (11.4-16.0) gm/dL Hct (34.0-46.0) % RDW (11.5-15.5) % ABG pH (7.35-7.45) ABG pO2 (83-108) mmHg ABG HCO3 (21-25) mmol/L ABG Total CO2 (19-24) mmol/L Carbon Dioxide (22-30) mmol/L Glucose (74-99) mg/dL POC Glucose (mg/dL) 164 H 116 H 135 H (75-99) mg/dL Calcium (8.4-10.2) mg/dL Total Protein (6.3-8.2) g/dL Albumin (3.5-5.0) g/dL Microbiology - Last 24 Hours (Table) 05/24/21 17:23 Blood Culture - Preliminary Blood No Growth after 96 hours 05/24/21 17:23 Blood Culture - Preliminary Blood No Growth after 96 hours 05/23/21 09:13 Blood Culture - Preliminary Blood No Growth after 120 hours 05/23/21 08:57 Blood Culture - Preliminary Blood No Growth after 120 hours Assessment and Plan Plan: 1. Patient with acute respiratory failure, likely multifactorial, with concern for possible component of aspiration pneumonia. The patient's bronch culture has been negative for any resistant pathogen , The patient white count is normal and the patient is afebrile, patient to continue with the Zosyn and monitor clinical course closely mother at the bedside questions answered Time with Patient: Less than 30
[2021-05-29 00:01] LABS: Glucose,Whole Blood 156 mg/dL (75-99)
[2021-05-29] MEDS: INSULIN ASPART (NovoLOG) 100 UNIT/ML VIAL SQ SCH ×6 (01:33→20:26)
[2021-05-29 04:06] LABS: Glucose,Whole Blood 187 mg/dL (75-99)
[2021-05-29] MEDS: NOREPINEPHRINE 4 MG in SODIUM CHLORIDE 0.9% 250 ML IV SCH (04:14)
[2021-05-29 04:49] LABS: Anisocytosis Slight; Basophils % (A) 0 %; Eosinophils # (A) 0.2 k/uL (0-0.7); Eosinophils % (A) 3 %; HCT 30.8 % (34.0-46.0); HGB 9.4 gm/dL (11.4-16.0); Hypochromasia Marked; Lymphocytes # (A) 1.4 k/uL (1.0-4.8); Lymphocytes % (A) 18 %; MCHC 30.5 g/dL (31.0-37.0); MCV 88.6 fL (80.0-100.0); Mean Platelet Volume 7.7; Monocytes # (A) 0.3 k/uL (0-1.0); Monocytes % (A) 4 %; Neutrophils # (A) 5.4 k/uL (1.3-7.7); Neutrophils % (A) 72 %; Platelet Count 386 k/uL (150-450); Poikilocytosis Slight; RBC 3.48 m/uL (3.80-5.40); RDW 16.2 % (11.5-15.5); WBC 7.5 k/uL (3.8-10.6)
--- NOTE | 2021-05-29 05:16 | P.PN ---
Subjective Progress Note Date: 05/28/21 This is a 36-year-old female who was recently admitted with changes in mental status along with significant hypoglycemia and is being closely monitored. Patient continues on 100% BiPAP with continued dyspnea and pulmonary following closely. Patient also found to have bilateral pneumonia possible aspiration and also a fungal urinary tract infection. Patient continues in the ICU for close monitoring and infectious disease is also following. Patient continues on IV antibiotics in the form of meropenem along with fluconazole and vancomycin and will continue. Multiple family members at the bedside. Recommend repeat chest x-ray along with labs in the morning. White blood Count elevated at 19.1. Potassium is 3.4 and magnesium 1.6 and will replace per protocol. 05/21/2021 She is seen in follow-up continues to be in the ICU being closely monitored. Patient was maintained on BiPAP and attempting airvo to allow for oral intake. Only at the bedside with multiple questions and concerns answered to the best of our ability. Patient's mentation is improved and answering questions and responding to commands appropriately. Chest x-ray today shows bilateral diffuse airspace disease with small effusion, stable with no pneumothorax noted. Infectious disease following an patient is continued on IV fluconazole along with meropenem. Blood cultures remain negative. Blood count is mildly elevated at 20.2. Patient is afebrile. Recommend repeat labs and chest x-ray in the a.m. She denies any chest pains or palpitations at this time. Patient tolerating oral intake and recommend strict aspiration precautions of head of the bed elevated 30-45 at all times and supervision with meals. 05/22/2021 Patient is seen in follow up and being closely monitored in the ICU with multiple medical consultations following. Patient was an A team this morning for acute respiratory arrest that was witnessed by nursing staff at the bedside and was changing the patient after a bowel movement and became apneic and code blue was initiated. Patient did not lose pulse but was intubated and placed on sedation. Chest xray showed moderately severe pulmonary edema without change compared to yesterday. Patient was given a dose of lasix. Patient is on some pressor support as well. Pulmonary following and patient underwent bronchoscopy with fluid analysis sent and pending. Patient is continued on IV merrem and vancomycin with ID following closely. Await finalized cultures. WBC elevated as well at 26.8. 05/23/2021 Patient is seen and evaluated this morning and continues in critical condition in the ICU. Mother at the bedside and patient was extubated this morning. Patient is currently resting on 2L of02 via NC with oxygen saturation above 90%. Patient is extremely lethargic but arousable. Chest xray shows persistent but improving airspace disease, right greater than left. Mother is at the bedside. May Patient is seen and evaluated today in follow-up continues to be in the ICU being closely monitored. Patient continues on mechanical vent with sedation and attempts at weaning continue. Pulmonary and ID following closely. Patient continues with FI02 of 60%. Patient also continues on IV fluconazole and Zosyn and will continue. Chest xray today shows bilateral multifocal and confluent opacities redemonstrated consistent with covid 19 infection and or ARDS is redemonstrated with no significant change from yesterday. 05/27/2021 Patient is seen and evaluated this morning and continues on mechanical ventilation and lightly sedated on propofol although patient is awake and following commands although fatigues easily. General surgery consulted for PEG and trach placement for pulmonary joint maker machine recommendations. Infectious disease following an patient is maintained on fluconazole along with IV Zosyn and will continue. Patient continues with multiple episodes of loose stool with fecal management system and C. diff testing is ordered. Potassium mildly low at 3.4 and will replace per protocol. Magnesium is 2.2 today. Chest x-ray today shows patchy bilateral lung infiltrates that are stable. 05/28/2021 Patient is seen in follow-up in the ICU continues to be closely monitored with multiple medical consultations following. Plan for today was possible peg and trach placement although surgery extremely busy and will likely occur tomorrow. Patient continues on IV abx with ID following closely. Patient continues on mechanical vent with an FI02 of 50%. Minimally sedated. Labs: WBC is 9.8, hemoglobin is 9.4, platelets are 357, sodium is 137, potassium 4.2, BUN is 9, creatinine 0.59, calcium 7.3 Review of systems: unable to assess as patient intubated and sedated All medications have been reviewed Active Medications Acetaminophen (Acetaminophen Tab 325 Mg Tab) 650 mg PO Q6HR PRN PRN Reason: Fever and/ or Pain Last Admin: 05/23/21 04:35 Dose: 650 mg Documented by: Amitriptyline HCl (Amitriptyline Hcl 10 Mg Tab) 10 mg PO HS [facility] Last Admin: 05/27/21 20:14 Dose: 10 mg Documented by: Chlorhexidine Gluconate (Chlorhexidine Gluconate 15 Ml Cup) 15 ml MUCOUS MEM BID [facility] Last Admin: 05/28/21 10:00 Dose: 15 ml Documented by: Cholecalciferol (Cholecalciferol 25 Mcg (1000 Iu) Tablet) 50 mcg PO DAILY [facility] Last Admin: 05/28/21 10:00 Dose: 50 mcg Documented by: Al Hydroxide/Mg Hydroxide 30 ml/ Lidocaine HCl 30 ml/Diphenhydramine HCl 75 mg/Nystatin 3,000,000 unit 0 ml PO TID [facility] Last Admin: 05/28/21 10:00 Dose: 5 ml Documented by: Escitalopram Oxalate (Escitalopram 20 Mg Tab) 20 mg PO DAILY [facility] Last Admin: 05/28/21 10:00 Dose: 20 mg Documented by: Folic Acid (Folic Acid 1 Mg Tab) 1 mg PO DAILY@1200 [facility] Last Admin: 05/28/21 12:19 Dose: 1 mg Documented by: Fluconazole/Sodium Chloride (100 mg/ IV Solution) 50 mls @ 50 mls/hr IVPB DAILY [facility] Last Admin: 05/28/21 10:00 Dose: 50 mls/hr Documented by: Propofol 1,000 mg/ IV Solution 100 mls @ 0 mls/hr IV .Q0M [facility]; Protocol Last Admin: 05/28/21 14:15 Dose: 30 mcg/kg/min, 9.36 mls/hr Documented by: Norepinephrine Bitartrate 4 mg (/ Sodium Chloride) 254 mls @ 9.601 mls/hr IV .Q24H [facility]; Protocol Last Admin: 05/28/21 07:11 Dose: Not Given Documented by: Acetaminophen 1,000 mg/ IV (Solution) 100 mls @ 400 mls/hr IVPB Q6HR PRN PRN Reason: Fever Stop: 06/09/21 08:05 Piperacillin Sod/Tazobactam (Sod 3.375 gm/ Sodium Chloride) 100 mls @ 25 mls/hr IVPB Q8HR [facility] Last Admin: 05/28/21 10:00 Dose: 25 mls/hr Documented by: Insulin Aspart (Insulin Aspart (Novolog) 100 Unit/Ml Vial) 0 unit SQ Q4H [facility]; Protocol Last Admin: 05/28/21 12:19 Dose: 1 unit Documented by: Insulin Detemir (Insulin Detemir (Levemir) 100 Unit/Ml Syr) 20 unit SQ HS [facility] Last Admin: 05/27/21 21:01 Dose: Not Given Documented by: Loperamide HCl (Loperamide 2 Mg Cap) 2 mg PO QID PRN PRN Reason: Diarrhea Last Admin: 05/21/21 17:48 Dose: 2 mg Documented by: Miscellaneous Information (Magnesium Replacement Protocol 1 Each Misc) 1 each MISCELLANE DAILY PRN; Protocol PRN Reason: Per Protocol Miscellaneous Information (Potassium Replacement Protocol 1 Each Misc) 1 each MISCELLANE DAILY PRN; Protocol PRN Reason: Per Protocol Montelukast Sodium (Montelukast 10 Mg Tab) 10 mg PO [facility] Last Admin: 05/27/21 20:14 Dose: 10 mg Documented by: Morphine Sulfate (Morphine Sulfate 2 Mg/Ml Syringe) 2 mg IVP Q4HR PRN PRN Reason: Pain/Discomfort Multivitamins (Multivitamins, Thera 1 Each Tab) 1 each PO DAILY@1200 [facility] Last Admin: 05/28/21 12:23 Dose: 1 each Documented by: Nystatin (Nystatin 100,000 Unit/Ml Susp 500,000 Unit/5 Ml Cup) 500,000 unit PO QID [facility] Last Admin: 05/28/21 12:21 Dose: 500,000 unit Documented by: Pantoprazole Sodium (Pantoprazole 40 Mg/10 Ml Vial) 40 mg IVP DAILY [facility] Last Admin: 05/28/21 10:00 Dose: 40 mg Documented by: Pregabalin (Pregabalin 75 Mg Cap) 75 mg PO TID [facility] Last Admin: 05/28/21 10:00 Dose: 75 mg Documented by: Sumatriptan Succinate (Sumatriptan Succinate 50 Mg Tab) 100 mg PO DAILY PRN PRN Reason: Migraine Headache Thiamine HCl (Thiamine 100 Mg Tab) 100 mg PO BID-W/MEALS [facility] Last Admin: 05/28/21 07:12 Dose: Not Given Documented by: Zinc Sulfate (Zinc Sulfate 220 Mg Cap) 220 mg PO DAILY [facility] Last Admin: 05/28/21 10:00 Dose: 220 mg Documented by: Physical Exam: Gen: This is a 36-year-old female who is intubated and sedated, thin built, cachectic. Temp is 97.1F, pulse is 77, respirations are 25, blood pressure is 97/63, oxygen saturation is 97% on 50% FiO2 mechanical vent HEENT: Head is atraumatic, normocephalic. Pupils equal, round. Sclerae is anicteric. oral mucosa is dry and white patches noted on tongue NECK: Supple. No JVD. No lymphadenopathy. No thyromegaly. LUNGS: Breath sounds diminished with scattered rhonchi and crackles noted. No intercostal retractions. HEART: S1, S2 are muffled ABDOMEN: Soft. Bowel sounds are present. No masses. No tenderness. EXTREMITIES: No pedal edema. No calf tenderness. NEUROLOGICAL: Patient is lethargic but arousable. Nodding yes and no to simple commands . 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 Infectious disease and pulmonary following closely and patient remains on mechanical vent and weaning attempts ongoing. FI02 is down to 50% patient is awake mildly sedated with propofol. General surgery consulted for trach and PEG tube placement which will likely be scheduled for tomorrow. Mother at the bedside and questions and concerns answered to the best of our ability. Recommend repeat labs and follow-up chest x-ray in the morning. Recommend to keep the bed elevated 30-45 at all times and maintain aspiration precautions. Blood cultures remain negative. ID following and maintained on IV zosyn. Recommend to continue to monitor blood sugars closely.Due to multiple complex medical issues prognosis is guarded. Objective - Vital Signs Vital signs: Vital Signs Temp 99.6 F 05/28/21 04:00 Pulse 75 05/28/21 07:00 Resp 25 H 05/28/21 07:00 BP 99/67 05/28/21 07:00 Pulse Ox 97 05/28/21 07:00 Intake & Output 05/27/21 05/28/21 05/28/21 18:59 06:59 18:59 Intake Total 1083.787 660.134 20 Output Total 945 1825 75 Balance 138.787 -1164.866 -55 Weight 49 kg 52 kg Intake: IV 450 340 20 Fluconazole in NaCl,Iso- 50 Osm 100 mg In Saline 1 50ml.bag @ 50 mls/hr IVPB DAILY [facility] Rx#:[id number] Normal Saline 0.9 @ KVO 200 240 20 Piperacillin-Tazobactam 3 200 100 .375 gm In Sodium Chloride 0.9% 100 ml @ 25 mls/hr IVPB Q8HR [facility] Rx# :[id number] Intake, IV Titration 147.787 212.134 Amount Norepinephrine 4 mg In 10.4 1.44 Sodium Chloride 0.9% 250 ml @ 0.05 MCG/KG/MIN 9. 601 mls/hr IV .Q24H [facility] Rx#:[id number] propofoL 1,000 mg In 137.387 138.694 Empty Bag 1 bag @ Titrate IV .Q0M [facility] Rx#: [id number] propofoL 100 ml @ 0 mls/ 72 hr IV .[facility] Rx#: [id number] Tube Feeding 396 108 Other 90 Output: Urine 895 1075 75 Stool 50 750 Other: Voiding Method Indwelling Catheter Indwelling Catheter - Labs CBC & Chem 7: 05/29/21 04:23 05/28/21 05:07 Labs: Abnormal Lab Results - Last 24 Hours (Table) 05/27/21 05/27/21 05/27/21 Range/Units 11:46 15:50 20:01 RBC (3.80-5.40) m/uL Hgb (11.4-16.0) gm/dL Hct (34.0-46.0) % RDW (11.5-15.5) % ABG pH (7.35-7.45) ABG pO2 (83-108) mmHg ABG HCO3 (21-25) mmol/L ABG Total CO2 (19-24) mmol/L Carbon Dioxide (22-30) mmol/L Glucose (74-99) mg/dL POC Glucose (mg/dL) 173 H 153 H 198 H (75-99) mg/dL Calcium (8.4-10.2) mg/dL Total Protein (6.3-8.2) g/dL Albumin (3.5-5.0) g/dL 05/27/21 05/28/21 05/28/21 Range/Units 23:50 03:39 05:07 RBC 3.48 L (3.80-5.40) m/uL Hgb 9.4 L (11.4-16.0) gm/dL Hct 30.2 L (34.0-46.0) % RDW 16.0 H (11.5-15.5) % ABG pH (7.35-7.45) ABG pO2 (83-108) mmHg ABG HCO3 (21-25) mmol/L ABG Total CO2 (19-24) mmol/L Carbon Dioxide (22-30) mmol/L Glucose (74-99) mg/dL POC Glucose (mg/dL) 168 H 173 H (75-99) mg/dL Calcium (8.4-10.2) mg/dL Total Protein (6.3-8.2) g/dL Albumin (3.5-5.0) g/dL 05/28/21 05/28/21 Range/Units 05:07 05:09 RBC (3.80-5.40) m/uL Hgb (11.4-16.0) gm/dL Hct (34.0-46.0) % RDW (11.5-15.5) % ABG pH 7.53 H (7.35-7.45) ABG pO2 76 L (83-108) mmHg ABG HCO3 36 H (21-25) mmol/L ABG Total CO2 37 H (19-24) mmol/L Carbon Dioxide 33 H (22-30) mmol/L Glucose 172 H (74-99) mg/dL POC Glucose (mg/dL) (75-99) mg/dL Calcium 7.3 L (8.4-10.2) mg/dL Total Protein 5.4 L (6.3-8.2) g/dL Albumin 1.8 L (3.5-5.0) g/dL Microbiology - Last 24 Hours (Table) 05/24/21 17:23 Blood Culture - Preliminary Blood No Growth after 72 hours 05/24/21 17:23 Blood Culture - Preliminary Blood No Growth after 72 hours 05/23/21 09:13 Blood Culture - Preliminary Blood No Growth after 96 hours 05/23/21 08:57 Blood Culture - Preliminary Blood No Growth after 96 hours
[2021-05-29 05:27] LABS: ABG Base Excess 8.5 mmol/L; ABG HCO3 32 mmol/L (21-25); ABG Oxygen Saturation 96.8 % (94-97); ABG PCO2 41 mmHg (35-45); ABG PO2 79 mmHg (83-108); ABG TCO2 33 mmol/L (19-24); Allen Test Performed? Yes
[2021-05-29 05:30] LABS: ALT 6 U/L (4-34); AST 18 U/L (14-36); African American GFR (CKD) >90 (>60 ml/min/1.73 sqM); Albumin 1.8 g/dL (3.5-5.0); Alkaline Phosphatase 81 U/L (38-126); Anion Gap 5 mmol/L; Blood Urea Nitrogen 11 mg/dL (7-17); Calcium 7.4 mg/dL (8.4-10.2); Carbon Dioxide 27 mmol/L (22-30); Chloride 102 mmol/L (98-107); Glucose 189 mg/dL (74-99); Non-African American GFR(CKD) >90 (>60 ml/min/1.73 sqM); Sodium 134 mmol/L (137-145); Total Bilirubin 0.3 mg/dL (0.2-1.3); Total Protein 5.4 g/dL (6.3-8.2)
[2021-05-29] MEDS: THIAMINE 100 MG TAB PO SCH ×2 (05:57→16:30)
[2021-05-29] MEDS: MORPHINE SULFATE 2 MG/ML SYRINGE IVP PRN (06:48)
--- NOTE | 2021-05-29 07:21 | XR ---
EXAMINATION TYPE: XR chest 1V portable DATE OF EXAM: 05/29/2021 CLINICAL HISTORY: Difficulty breathing progress study. TECHNIQUE: Single AP portable semiupright view of the chest is obtained. COMPARISON: Chest x-ray from one day earlier and older studies. FINDINGS: Stable endotracheal and orogastric tubes. Stable right-sided PICC line. Bilateral multifocal and confluent opacities more prominent in the right lung are redemonstrated. Car diac silhouette size is stable and within normal limits. Osseous structures are intact. IMPRESSION: Bilateral multifocal and confluent opacities greatest in the right lung are redemonstrate d consistent with covid-19 infection and/or ARDS. No significant change from one day earlier.
[2021-05-29] MEDS ORDERED: KETAMINE 10 MG/ML 20 ML VIAL ONE (07:50)
[2021-05-29] MEDS ORDERED: fentaNYL (PF) 50 MCG/ML 2 ML AMP ONE (07:50)
[2021-05-29] MEDS ORDERED: PROPOFOL 10 MG/ML 20 ML VIAL IV ONE (07:50)
[2021-05-29] MEDS ORDERED: ROCURONIUM 10 MG/ML (5 ML VIAL) IV ONE (07:50)
[2021-05-29] MEDS: PIPERACILLIN-TAZOBACTAM 3.375 GM in SODIUM CHLORIDE 0.9% 100 ML IVPB SCH ×2 (09:00→16:28)
[2021-05-29] MEDS: CHLORHEXIDINE GLUCONATE 15 ML CUP MUCOUS MEM SCH ×2 (09:33→21:26)
[2021-05-29] MEDS: CHOLECALCIFEROL 25 MCG (1000 IU) TABLET PO SCH (09:33)
[2021-05-29] MEDS: ESCITALOPRAM 20 MG TAB PO SCH (09:33)
[2021-05-29] MEDS: NYSTATIN 100,000 UNIT/ML SUSP 500,000 UNIT/5 ML CUP PO SCH ×4 (09:33→21:26)
[2021-05-29] MEDS: MAG HYDROX/AL HYDROX/SIMETH 30 ML, LIDOCAINE VISCOUS 30 ML, diphenhydrAMINE ELIXIR 75 M... PO SCH ×4 (09:34)
[2021-05-29] MEDS: ZINC SULFATE 220 MG CAP PO SCH (09:34)
[2021-05-29] MEDS: PANTOPRAZOLE 40 MG/10 ML VIAL IVP SCH (09:34)
[2021-05-29] MEDS: FLUCONAZOLE IN NACL,ISO-OSM 100 MG in SALINE 1 50ML.BAG IVPB SCH (09:40)
[2021-05-29] MEDS: PREGABALIN 75 MG CAP PO SCH ×3 (09:41→21:25)
[2021-05-29 09:48] LABS: Glucose,Whole Blood 162 mg/dL (75-99)
[2021-05-29 11:49] LABS: Glucose,Whole Blood 123 mg/dL (75-99)
[2021-05-29] MEDS: FOLIC ACID 1 MG TAB PO SCH (12:47)
[2021-05-29] MEDS: MULTIVITAMINS, THERA 1 EACH TAB PO SCH (12:47)
--- NOTE | 2021-05-29 13:43 | P.PN ---
Subjective Progress Note Date: 05/29/21 This is a 36-year-old old female, seen in the emergency room, room 10. The patient was just discharged out of the hospital yesterday, May 16. The patient apparently returned to the emergency room, with a low blood sugar. She was brought in by EMS. She apparently has no memory of why she was in the ospital. She apparently was hungry when she came into the ER. She complained of back pain. Her blood glucose on arrival was 36. The patient was in the hospital recently for a left-sided pneumonia. The patient also has a history of diabetes with diabetic ketoacidosis. The patient is currently on O2 at 2 L. She's getting D5 0.9 at 75 mL an hour. She was given Augmentin, but we discontinued it in favor of Zosyn. The patient has a history of diabetes, diabetic neuropathy, chronic low back pain, migraine cephalgia, chronic constipation, and prior MRSA infection. White count 21.9, hemoglobin 8.8, hematocrit 28.7, and platelet count 474,000. Sodium 129, potassium 4.4, chlorides 102, CO2 24, anion gap 3, BUN 7, with a creatinine of 0.29. Albumin is 2. Urine is light yellow in color, and cloudy, leukocyte esterase being small positive, 9 WBCs, and rare bacteria. Drug screen is negative. Testing for ling virus was negative. Chest x-ray shows bilateral pneumonia, with dense consolidation within the left lung, and much less infiltrate in the right base. Progress note dated 05/18/2021. This is a 36-year-old female, who was seen in the emergency department in consultation yesterday, and room 10. The patient was recently discharged from the hospital on May 16. She was brought back in for mental status changes, and a low blood sugar. Apparently her blood glucose was only 36. Her prior admission was for diabetic ketoacidosis, and left-sided ammonia. Currently, she is back to her normal self. The patient is on 4 L nasal O2. She's not complaining of any respiratory distress or difficulty. She has a dry nonproductive cough. She was placed on Zosyn yesterday by our team. She was seen by infectious diseases. She has a history of diabetes, diabetic neuropathy , chronic low back pain, migraine cephalgia, chronic constipation, and prior MRSA infection. Currently, white count 19.3, he will been 7.2, hematocrit 24, and platelet count 449,000. Sodium 133, potassium 3.8, chlorides 100, CO2 21, anion gap 12, UN 7, and creatinine 0.4. Pro-calcitonin level is 0.15. C- reactive protein is 5.7. On today's evaluation of 05/19/2021, the patient is doing well. The patient is awake and alert. No signs of any significant respiratory distress. The patient was restarted back on IV Zosyn. The chest x-ray showed extensive consolidation of the left lung and the CAT scan of the chest also confirmed the same findings. The patient was Hospital as because of hypoglycemia. The patient altered mentation and she recovered fully. She is currently on Levemir 20 units along with sliding scale coverage. She is also on D5 water running at 100 mL an hour. Antibiotic coverage with IV Zosyn. Blood work shows a white cell count 12.4 with hemoglobin 8.5, BUN is at 5 with a creatinine of 0.4 and his sodium is at 134 with a potassium level of 3.3. The COVID 19 test that was negative. Urine drug screen was negative. Pro-calcitonin level has been consistently low. A focused on level was at 0.15. The patient currently is on oxygen 4 L per minute nasal cannula. She is afebrile. She is medically and hemodynamically stable at this point in time. She has poor dental conditions and poor oral hygiene. She has also developed some ulceration over the tip of the tongue probably related to candidal infection. On 2021, the patient's condition decompensated and the patient got transferred to the intensive care unit for respiratory support. Overnight, the patient became progressively more hypoxemic and short of breath. She was given a dose of Lasix 40 mg IV push without any much improvement. She was becoming also more lethargic and short of breath. She got transferred to the ICU. Currently she is on a BiPAP at a pressure of 12/6 cm of water with an FiO2 of 100%. Her Pulse Ox Is 99%. A Chest X-Ray Showed Extensive Consolidation of the Left Lung. There Are Some Air Bronchograms on the Left. At the Same Time There Are Some Air Pockets in the Left Adrian Which Makes Me Concerned about an Underlying Cavitation/Abscess Formation. At the Same Time, There Is Progression of the Airspace Disease and There Is Development of New Patchy Opacities in the Right Midlung and the Right Lower Lung. Note That the Patient Was Covered with IV Zosyn for Any Potential Aspiration Pneumonia.Pro-Calcitonin Level Was at 0.15. Currently She Is on BiPAP Which Is Quite Comfortable. She instructed BiPAP dependent. The patient easily decompensates and desaturates 1 she's taken off the BiPAP. Note that she also had extensive oropharyngeal candidiasis and ulceration of the tongue for which she was given Diflucan. I added cold solution on her yesterday. She is unable to do adequate oral care as the patient is BiPAP dependent. In terms of IV fluids, the patient is on D5 water running at 40 mL an hour. This was started due to concerns of underlying episodes of hypoglycemia. She is a very brittle diabetic. Her blood sugars are all over the place. She is currently on Levemir insulin 20 units a day along with a sliding scale coverage. The Levemir insulin was given today. She is not eating much at this point in time as the patient is BiPAP dependent. Other blood work, her white cell count of 19.0 which is higher compared to yesterday. Hemoglobin is at 7.8. The blood gas while on 100% BiPAP initially showed a pH of 7.37 with a pCO2 of 46 and pO2 of 50. Current saturations up to 90%. Sodium is at 130 with a potassium level of 3.4 and a serum bicarb of 23 with a mean of 4 and a creatinine of 0.4. Her albumin is down to 2.0 with a total protein of 5.7. Cultures for now are negative in terms of blood culture. Note that the patient had MRSA and E. coli and strep in her urine back in 05/09/2021. She has also has had a previous MRSA wound infection involving the scalp. She is arousable. She is a bit lethargic. No agitation. On 05/21/2021 patient seen in follow-up in the intensive care unit, she currently remains on BiPAP support as of 12 and 600%, and her pulse ox is 99- 100%, she is awake and alert, oriented 3, she is extremely thirsty and hungry, does not appear to be in any acute distress, no complaints of worsening dyspnea, she seems to be breathing comfortably, nursing staff reports that patient was able to come off the BiPAP support to take sips of water, oral care, and pills, and patient tolerates being off BiPAP support better although she does desaturate. She is afebrile, hemodynamically she is stable, she remains on a combination of meropenem and vancomycin and Diflucan which were modified yesterday. Blood cultures have been negative thus far, she's been afebrile, no hemoptysis, no complaints of chest discomfort. Produced 5.2 L in urine output in response to Lasix, and she is in -3.8 L net fluid balance over the last 24 hours, today's chest x-ray has been reviewed, showing stable diffuse bilateral airspace disease. Absent been reviewed, white blood cell count is 20.2, hemoglobin is 7.9, platelet count is 482, serum sodium is 133, potassium 3.7, chloride is 104, CO2 is 24, B1 is 5 creatinine 0.42. Her last pro-calcitonin level from 05/18/2021 was 0.15. On 05/22/2021 patient seen in follow-up in intensive care unit, last night during an episode of getting cleaned up after having a bowel movement patient complained of not feeling well, she certainly became unresponsive, she started desaturating, her respirations became very agonal and rapid response team was called for ERIC BLUE. There was no seizure activity noted prior to the event, patient was not desaturating just prior to that, no arrhythmias were noted other than bradycardia after she had started desaturating. During the code patient did not lose her pulse, her pulse ox was down to 66% on high flow Airvo, she was emergently intubated and placed on mechanical ventilator, chest x-ray shows severe ARDS, she was hypotensive and received IV fluids and received norepinephrine infusion which is currently still infusing at 0.06 mics per kilo per minute, she was not hypoglycemic and her blood sugar at that time was 177, she had D5W infusing at 40, and she was starting to take in some oral intake. This morning she is sedated, intubated on assist control mode of ventilation with a rate of 16, tidal, 350, FiO2 is currently at 50% and PEEP of 8, this morning's blood gas shows pO2 of 102, pCO2 of 43, pH is 7.34, this was done on 70% FiO2 which had since been dropped down to 50%, this morning's chest x-ray was reviewed showing moderately severe pulmonary air space edema, without significant change compared to yesterday. The patient is in sinus mechanism, blood pressure is 112/72, currently on meropenem, vancomycin and Diflucan for aspiration pneumonia, blood cultures have been negative, patient has not been able to produce a sputum culture for us. Her labs reveal white blood cell count of 26.8 which is increased since yesterday from 20.2, hemoglobin of 7.9, platelet count of 530, sodium is 134, potassium is 4.0, chloride is 107, CO2 is 21, BUN is 7 creatinine 0.52, her glucose this morning is 203, LFTs were within normal limits, her last pro-calcitonin level from a few days ago was 0.15. Yesterday patient was given a liter bolus after she became intubated, she is producing urine in the order of 30-75 ML per hour, her Lasix is on hold. On 05/23/2021 patient seen in follow-up in the intensive care unit, she is sedated, intubated on mechanical ventilator with a assist control mode of ventilation and rate of 16, tidal emesis 50, FiO2 of 60% and PEEP of 8, this morning's blood gas was reviewed showing O2 of 154, pCO2 of 45, and pH of 7.37. Is currently on Diprivan at 40 mics per kilo per minute, Levaquin is at 3 mics per minute, 0.9 saline at any ML per hour. Today's chest x-ray showing persistent but improving bilateral airspace disease, right greater than left. There is some blood work has been reviewed showing white blood cell count of 13.4, hemoglobin of 7.3, sodium of 140, potassium is 3.9, chloride is 110, CO2 of 22, BUN of 6, creatinine of 0.62, this morning his glucose was 221. Recent have fevers overnight with a T-max of 101.5F. She currently remains on combination of meropenem, vancomycin and Diflucan. Patient is status post bronchoscopy and bronchoalveolar lavage on 05/22/2021, and BAL cultures are still pending. Gram stain showed no organisms thus far. Patient is tolerating tube feedings with vital HP at a rate of 20 ML per hour, Orellana catheter is in place, and patient is producing urine in the order of 50 to 100 mL per hour. On 05/24/2021 , is being seen for a follow-up. Note that the patient was extubated successfully yesterday. Extubation process went fine and the patient was doing very well on a nasal cannula oxygen. At around midnight, the patient acutely decompensated. She became short of breath and hypoxic. Her blood. This was done that showed acute respiratory acidosis with a pH of 7.24 with a pCO2 of 67 and pO2 of 80 and this was identified to 100%. He became acutely unresponsive and significant respiratory distress was noted by the nursing staff. At that point, it was decided that he intubated the patient. The patient is currently intubated on a mechanical ventilator. The patient is sedated with propofol which is running at 30 mcg/kg per minute to maintain synchrony with the mechanical ventilator. She is on assist control mode at the rate of 25, tidal volume of 350, FiO2 has been weaned down to 50% and the patient currently is in a PEEP of 10. Post intubation blood gases showed a pH of 7.48 with a pCO2 of 43 and pO2 of more than 400 and this was on FiO2 100%. Morning blood work also showed a drop in hemoglobin down to 6.1 from a baseline of 7.3. No evidence of any acute bleeding. No evidence of any hematemesis or melanotic stools. The patient will be given a total of 2 units of packed RBCs. Also, the patient is covered with broad-spectrum antibiotics patient remains on a combination of meropenem, vancomycin and Diflucan. The cultures from the bronchioloalveolar lavage was done earlier came back all negative. The repeat chest x-ray from today is showing adequate placement of the orotracheal tube. The patient continues to have bilateral pulmonary infiltrates. However, there is significant interval improvement in the bilateral pulmonary infiltrates compared to earlier chest x-rays. The white cycles of 7.12. Renal function is stable with a creatinine of 0.5 and a BUN of 7. Sodium level is at 144. Potassium level is at 3.2 and a K level will be replaced. The patient was restarted again on enteral feeding and this will be restarted today. Meanwhile, in terms of blood sugar control, the patient is receiving Levemir insulin 20 units once a day and a sliding scale coverage. Blood sugars have been maintained adequately and her most recent blood sugar currently is at 172. Her vancomycin felt level from today was 28. 05/25/2021, the patient is awake even on a low dose of propofol at 30 mcg/kg per minute. She is following commands. She wants to get the tube out. She is on a mechanical ventilator at the rate of 25, tidal volumes of 350, PEEP is at 10 and FiO2 is currently at 40%. PH is at 7.48 with a pCO2 of 43 and pO2 of 113. The lavage from the lungs did not yield any microbial growth. The patient continues to have diffuse bilateral pulmonary infiltrates and there is extensive consolidation bilaterally more so on the right. White secondary to 6.7. Hemoglobin is at 10.1 platelet count is at 356. Creatinine stable at 0.4. BUN is at 7. Sodium is at 139. LFTs are normal. Blood sugars at 168. The patient remains on a broad-spectrum antibiotic coverage. The patient is receiving IV Diflucan, IV vancomycin and IV meropenem. There was always the concern of aspiration in this patient as the patient developed initially extensive left lung consolidation subsequently infiltrates moved to the right. The bronchoscopy was done yielded no significant respiratory secretions or microbial growth at this point in time. She is on Levemir insulin and a sliding scale coverage. She is on no pressors for now. She is is slightly positive over the past 24 hours. The patient was receiving enteral feeding for nutritional support. She is currently on vital high protein at the rate of 20 mL an hour. No hypoglycemic attacks. As mentioned, she is easily arousable and she is moving all 4 extremities without any limitation. No fever. No significant leukocytosis. All of the cultures are negative. She remains on D5W at the rate of 75 mL an hour. No reported abdominal pain. LFTs are normal. Ultrasound abdomen showed a questionable gallbladder wall thickening and a calculus cholecystitis. On 05/26/2021 patient seen in follow-up in the intensive care unit, she is currently sedated, and intubated, on assist-control mode of ventilation with a rate of 25, tidal 350, FiO2 of 50% and PEEP of 5, this morning's blood gas shows pO2 of 55, pCO2 of 41, and pH of 7.54 and this was done and FiO2 of 40% and subsequently FiO2 was increased to 55%. She's currently on point and within indurated 20 ML per hour, norepinephrine drip has been off for over 12 hours, and improving and is at 30 mics per kilo per minute, she is on a vital high protein at a rate of 20 with standard water flushes 30 mL every 4 hours, today's chest x-ray has been reviewed showing bilateral multifocal confluent opacities. No significant change from one day earlier. Patient remains on a combination of antibiotics with Zosyn, vancomycin and Diflucan. Patient is status post bron choscopy with bronchoalveolar lavage on 05/22/2021, and so far BAL cultures are all negative, sputum and blood cultures and urine were all negative. Today's labs have been reviewed, white blood cell count is improved and is down to 7.3, hemoglobin is 9.8, sodium is 137, potassium is 3.4, chloride is 105, BUN is 8, creatinine 0.53. Hemodynamic patient is stable, she is in sinus mechanism, she has had no acute events overnight. No febrile episodes. He is currently likely sedated, she is opening eyes to verbal stimulation, and she seems to be following simple commands. Her LFTs are within normal limits. On 05/27/2021 patient seen in follow-up in the intensive care unit, she is lightly sedated, she opens her eyes to voice, she is following simple commands, does not appear to be in any acute distress, she still intubated, on assist- control mode of ventilation with a rate of 25, Tylenol level was 350, FiO2 of 50% and PEEP of 5, this morning's blood gas shows pO2 of 85, pCO2 44, and pH of 7.52. This was done on the above-mentioned ventilator settings. Today's chest x-ray changed to show patchy bilateral lung infiltrates that are stable in appearance. Vital signs have been stable overnight, no fever, no chills. All of her cultures including BAL cultures remained negative. Patient remains on a combination of antibiotics with Diflucan, Zosyn and vancomycin. She did require small dose of norepinephrine on which she remains, currently infusing at a rate of 3.9 mics per minute. Current blood pressure is 140/89, and norepinephrine can be discontinued. Urine output is in the order of 50 TOPD ML per hour. Patient is receiving the program at 30 mics per kilo per minute, and IV fluids are 0.9 normal saline at a rate of 20 ML per hour, she is tolerating tube feedings with vital AF at a rate of 36 with a goal of 36 and standard water flushes. Today's labs have been reviewed showing white blood cell, 7.4, hemoglobin of 10.4, platelet count of 377, sodium is 137, potassium is 3.4, chloride is 105, CO2 of 33, BUN of 9 creatinine 0.56 On 05/28/2021 patient is seen in follow-up in the intensive care unit, she is slightly sedated, she is awake, alert, she is following command, she still intubated on mechanical ventilator, on assist control mode of ventilation with a rate of 25, tidal volume 350, FiO2 of 40% and PEEP of 5. This was blood gas shows pO2 of 76, P CO2 of 43, and pH is 7.53 this was done on the above- mentioned ventilator settings, she is currently on 30 mics of dopamine, 0.9 normal seen at a rate of 20 ML per hour, tube feedings have been placed on hold for tracheostomy and PEG tube placement possibly today, she is hemodynamically stable, not requiring any vasopressor support. She is in sinus mechanism with a rate of 76 BPM, he had no acute events overnight, today's chest x-ray showing no evident pneumothorax, bilateral airspace disease similar to the prior exam, she said no fever or chills, vital signs have been stable overnight, she said no acute events, remains on the same antibiotics with a combination of Diflucan, Zosyn. Ankle Meissen has been discontinued, ID service is following. Her BAL cultures have shown no growth, urine, and blood cultures have been negative as well. Today's labs have been reviewed, her white blood cell count is 6.8, hemoglobin is 9.4, sodium is 137, potassium is 4.2, chloride is 105, CO2 is 23, BUN of 9, creatinine 0.59. On 05/29/2021 patient seen in follow-up in intensive care unit, she received a tracheostomy and PEG tube placement this morning, she is recovering from the procedure very well, she is resting comfortably in bed, she is currently likely sedated on 30 mics of dopamine, she is opening her eyes to voice, she is following simple commands, she is moving her hands, she is able to plastic surgeon with both hands, she is moving her feet. Generally patient is very weak. But does not appear to be in any acute distress, midline tracheostomy in place, incisions clean dry and intact, patient also received a PEG tube. Her tube feedings are on hold, she remains on Diflucan, she remains on Zosyn for empiric antibiotic coverage. All of patient's blood cultures BAL cultures and sputum cultures have remained negative to date. She's had no fever or chills. She is currently on assist control mode of ventilation with a rate of 25, tidal vital 350, FiO2 100%, and PEEP of 5. Prior to her procedure this morning patient was on the same ventilator settings with the exception of FiO2 which was at 40%, her morning blood gases were reviewed showing pO2 of 79, pCO2 41, pH is 7.50, this was done on 40% FiO2, currently patient is saturating at 100% on a heart percent FiO2 and PEEP of 5. Breathing comfortably, and her FiO2 was dropped down to 60% and -50%. Chest x-ray showing bilateral multifocal and confluent opacities greatest in the right lung no significant change compared to one day earlier. Patient has been off norepinephrine for 48 hours, to prevent is infusing at 30 mics per kilo per minute, 0.9 normal saline at a rate of 20 ML per hour, she is in sinus mechanism with a rate of 90-100 bpm, his labs have been reviewed with blood cell count is 7.5, hemoglobin is 9.4, platelet count was 386, sodium is 134, the rest of electrolytes and renal profile are unremarkable. Objective - Vital Signs Vital signs: Vital Signs Temp 97.5 F L 05/29/21 12:00 Pulse 89 05/29/21 12:00 Resp 18 05/29/21 12:00 BP 101/71 05/29/21 12:00 Pulse Ox 96 05/29/21 12:00 Intake & Output 05/28/21 05/29/21 05/29/21 18:59 06:59 18:59 Intake Total 533.008 460 80 Output Total 860 1905 400 Balance -326.992 -1445 -320 Intake: IV 340 360 80 Normal Saline 0.9 @ KVO 240 260 80 Piperacillin-Tazobactam 3 100 100 .375 gm In Sodium Chloride 0.9% 100 ml @ 25 mls/hr IVPB Q8HR [facility] Rx# :[id number] Intake, IV Titration 73.008 100 Amount propofoL 1,000 mg In 73.008 100 Empty Bag 1 bag @ Titrate IV .Q0M [facility] Rx#: [id number] Other 120 Output: Urine 860 1405 395 Stool 500 Estimated Blood Loss 5 Other: Voiding Method Indwelling Catheter Indwelling Catheter - Exam GENERAL EXAM: Likely sedated and trached to the ventilator 36-year-old frail looking white female, on AC 25, TV 350, Fio2 100%, and PEEP of 5, comfortable in no apparent distress. HEAD: Normocephalic/atraumatic. EYES: Normal reaction of pupils, equal size. Conjunctiva pink, sclera white. NOSE: Clear with pink turbinates. MOUTH: She has ulcerations of her oral cavity THROAT: No erythema or exudates. NECK: No masses, no JVD, no thyroid enlargement, no adenopathy. Midline tracheostomy in place, connected to the ventilator, patient is clean dry and intact CHEST: No chest wall deformity. Symmetrical expansion. LUNGS: diminished air entry with crackles, no wheeze, no rhonchi or dullness. CVS: Regular rate and rhythm, normal S1 and S2, no gallops, no murmurs, no rubs ABDOMEN: Soft, nontender. No hepatosplenomegaly, normal bowel sounds, no guarding or rigidity. PEG tube covered with a surgical dressing EXTREMITIES: No clubbing, no edema, no cyanosis, 2+ pulses and upper and lower extremities. MUSCULOSKELETAL: Muscle strength and tone normal. SPINE: No scoliosis or deformity SKIN: No rashes CENTRAL NERVOUS SYSTEM: Intubated and sedated. No focal deficits, tone is normal in all 4 extremities. - Labs CBC & Chem 7: 05/29/21 04:23 05/29/21 04:23 Labs: Abnormal Lab Results - Last 24 Hours (Table) 05/28/21 05/28/21 05/28/21 Range/Units 15:50 20:41 23:59 RBC (3.80-5.40) m/uL Hgb (11.4-16.0) gm/dL Hct (34.0-46.0) % MCHC (31.0-37.0) g/dL RDW (11.5-15.5) % ABG pH (7.35-7.45) ABG pO2 (83-108) mmHg ABG HCO3 (21-25) mmol/L ABG Total CO2 (19-24) mmol/L Sodium (137-145) mmol/L Glucose (74-99) mg/dL POC Glucose (mg/dL) 116 H 135 H 156 H (75-99) mg/dL Calcium (8.4-10.2) mg/dL Total Protein (6.3-8.2) g/dL Albumin (3.5-5.0) g/dL 05/29/21 05/29/21 05/29/21 Range/Units 04:04 04:23 04:23 RBC 3.48 L (3.80-5.40) m/uL Hgb 9.4 L (11.4-16.0) gm/dL Hct 30.8 L (34.0-46.0) % MCHC 30.5 L (31.0-37.0) g/dL RDW 16.2 H (11.5-15.5) % ABG pH (7.35-7.45) ABG pO2 (83-108) mmHg ABG HCO3 (21-25) mmol/L ABG Total CO2 (19-24) mmol/L Sodium 134 L (137-145) mmol/L Glucose 189 H (74-99) mg/dL POC Glucose (mg/dL) 187 H (75-99) mg/dL Calcium 7.4 L (8.4-10.2) mg/dL Total Protein 5.4 L (6.3-8.2) g/dL Albumin 1.8 L (3.5-5.0) g/dL 05/29/21 05/29/21 05/29/21 Range/Units 05:18 08:57 11:47 RBC (3.80-5.40) m/uL Hgb (11.4-16.0) gm/dL Hct (34.0-46.0) % MCHC (31.0-37.0) g/dL RDW (11.5-15.5) % ABG pH 7.50 H (7.35-7.45) ABG pO2 79 L (83-108) mmHg ABG HCO3 32 H (21-25) mmol/L ABG Total CO2 33 H (19-24) mmol/L Sodium (137-145) mmol/L Glucose (74-99) mg/dL POC Glucose (mg/dL) 162 H 123 H (75-99) mg/dL Calcium (8.4-10.2) mg/dL Total Protein (6.3-8.2) g/dL Albumin (3.5-5.0) g/dL Microbiology - Last 24 Hours (Table) 05/23/21 09:13 Blood Culture - Final Blood No Growth after 144 hours 05/23/21 08:57 Blood Culture - Final Blood No Growth after 144 hours 05/24/21 17:23 Blood Culture - Preliminary Blood No Growth after 96 hours 05/24/21 17:23 Blood Culture - Preliminary Blood No Growth after 96 hours Assessment and Plan Plan: Assessment: #1. Acute hypoxic respiratory failure related to worsening and progression of pneumonia, and chest x-ray showing patchy consolidation involving the right midlung, right upper lobe and right lower lobe in addition to extensive consolidation of the left lung with possibly some cavitation. Patient is currently covered with meropenem and vancomycin, her antibiotics have been modified yesterday, initially covered with Zosyn, patient was doing well on Airvo on 05/21/2021, was clinically improving, but suffered acute respiratory arrest on 05/21/2021 and was intubated, patient was successfully weaned and extubated on 05/23/2021 however failed again and had to be reintubated later that evening on 05/23/2021. In view of multiple episodes of respiratory failure patient will be considered for tracheostomy and PEG tube placement for weaning. Patient is status post bronchoscopy with bronchoalveolar lavage on 05/23/2021, so far BAL cultures are all negative. Patient is status post tracheostomy and PEG tube placement on 05/29/2021 #2. Altered mental status secondary to hypoglycemia. Patient had recovered, and she was back to baseline neurologically. Currently lightly sedated, patient is still intubated, but patient is following all commands #3. History of diabetes, and recent episode of diabetic ketoacidosis, recovered. Levemir insulin has been discontinued and patient is currently covered with sliding scale NovoLog, her last episode of hypoglycemia was on 05/19/2021 with a blood sugar of 45. No recurrence of hypoglycemia since #4. History of syncopal episodes related to hypoglycemia #5. History of migraine cephalgia #6. History of diabetic neuropathy #7. Chronic constipation #8. Chronic low back pain #9. Tongue and oral pharyngeal candidiasis, with ulcerations #10. Previous history of MRSA infection in the laceration of the scalp #11. Chronic anemia with interval drop in hemoglobin down to 6.1 without evidence of any active GI bleeding, status post transfusion with 1 unit of packed red blood cells Plan: Todays labs, chest x-ray and blood gases reviewed Chest x-ray showing stable bilateral airspace disease Patient has received tracheostomy and PEG tube this morning, tolerated procedure very well Fio2 has been dropped back down to 50% Discontinue Diprivan, although the patient to wake up We'll proceed with the pressure support trials Possibly place on trach collar this afternoon Continue same antibiotics Tube feedings will be resumed tomorrow Follow-up labs, blood gases and chest x-ray in the morning I performed a history & physical examination of the patient and discussed their management with my nurse practitioner, Dania Negron. I reviewed the nurse practitioner's note and agree with the documented findings and plan of care. Lung sounds are positive for dim breath sounds throughout the lung abbott. The findings and the impression was discussed with the patient. I attest to the documentation by the nurse practitioner. Time with Patient: Greater than 30
[2021-05-29] MEDS: HYDROmorphone 0.5 MG/0.5 ML SYRINGE IVP PRN (14:40)
--- NOTE | 2021-05-29 14:55 | P.PN ---
Subjective Progress Note Date: 05/29/21 This is a 36-year-old female who was recently admitted with changes in mental status along with significant hypoglycemia and is being closely monitored. Patient continues on 100% BiPAP with continued dyspnea and pulmonary following closely. Patient also found to have bilateral pneumonia possible aspiration and also a fungal urinary tract infection. Patient continues in the ICU for close monitoring and infectious disease is also following. Patient continues on IV antibiotics in the form of meropenem along with fluconazole and vancomycin and will continue. Multiple family members at the bedside. Recommend repeat chest x-ray along with labs in the morning. White blood Count elevated at 19.1. Potassium is 3.4 and magnesium 1.6 and will replace per protocol. 05/21/2021 She is seen in follow-up continues to be in the ICU being closely monitored. Patient was maintained on BiPAP and attempting airvo to allow for oral intake. Only at the bedside with multiple questions and concerns answered to the best of our ability. Patient's mentation is improved and answering questions and responding to commands appropriately. Chest x-ray today shows bilateral diffuse airspace disease with small effusion, stable with no pneumothorax noted. Infectious disease following an patient is continued on IV fluconazole along with meropenem. Blood cultures remain negative. Blood count is mildly elevated at 20.2. Patient is afebrile. Recommend repeat labs and chest x-ray in the a.m. She denies any chest pains or palpitations at this time. Patient tolerating oral intake and recommend strict aspiration precautions of head of the bed elevated 30-45 at all times and supervision with meals. 05/22/2021 Patient is seen in follow up and being closely monitored in the ICU with multiple medical consultations following. Patient was an A team this morning for acute respiratory arrest that was witnessed by nursing staff at the bedside and was changing the patient after a bowel movement and became apneic and code blue was initiated. Patient did not lose pulse but was intubated and placed on sedation. Chest xray showed moderately severe pulmonary edema without change compared to yesterday. Patient was given a dose of lasix. Patient is on some pressor support as well. Pulmonary following and patient underwent bronchoscopy with fluid analysis sent and pending. Patient is continued on IV merrem and vancomycin with ID following closely. Await finalized cultures. WBC elevated as well at 26.8. 05/23/2021 Patient is seen and evaluated this morning and continues in critical condition in the ICU. Mother at the bedside and patient was extubated this morning. Patient is currently resting on 2L of02 via NC with oxygen saturation above 90%. Patient is extremely lethargic but arousable. Chest xray shows persistent but improving airspace disease, right greater than left. Mother is at the bedside. May Patient is seen and evaluated today in follow-up continues to be in the ICU being closely monitored. Patient continues on mechanical vent with sedation and attempts at weaning continue. Pulmonary and ID following closely. Patient continues with FI02 of 60%. Patient also continues on IV fluconazole and Zosyn and will continue. Chest xray today shows bilateral multifocal and confluent opacities redemonstrated consistent with covid 19 infection and or ARDS is redemonstrated with no significant change from yesterday. 05/27/2021 Patient is seen and evaluated this morning and continues on mechanical ventilation and lightly sedated on propofol although patient is awake and following commands although fatigues easily. General surgery consulted for PEG and trach placement for pulmonary counselor supervisor recommendations. Infectious disease following an patient is maintained on fluconazole along with IV Zosyn and will continue. Patient continues with multiple episodes of loose stool with fecal management system and C. diff testing is ordered. Potassium mildly low at 3.4 and will replace per protocol. Magnesium is 2.2 today. Chest x-ray today shows patchy bilateral lung infiltrates that are stable. 05/28/2021 Patient is seen in follow-up in the ICU continues to be closely monitored with multiple medical consultations following. Plan for today was possible peg and trach placement although surgery extremely busy and will likely occur tomorrow. Patient continues on IV abx with ID following closely. Patient continues on mechanical vent with an FI02 of 50%. Minimally sedated. 05/29/2021 Patient is seen this morning status post PEG tube and tracheostomy placement and continues on mechanical vent with an FiO2 of 50% and PEEP is 5. Mother at the bedside with questions and concerns answered. PEG tube on hold currently for 24 hours and awaiting clearance from surgery to start tube feedings. Chest x-ray today shows bilateral multifocal and confluent opacification greatest in the right lung are redemonstrated consistent with COVID-19 and/or arts with no significant change from previous day. Patient is awake and nodding yes and no appropriately Labs: WBC is 7.5, hemoglobin is 9.4, platelets are 386, sodium is 1:30, potassium 4.0, BUN 11, creatinine 0.61, calcium 7.4, blood sugars have been well controlled on current regimen Review of systems: unable to assess clearly as patient is drowsy status post PEG and trach placement All medications have been reviewed Active Medications Acetaminophen (Acetaminophen Tab 325 Mg Tab) 650 mg PO Q6HR PRN PRN Reason: Fever and/ or Mild Pain Last Admin: 05/23/21 04:35 Dose: 650 mg Documented by: Amitriptyline HCl (Amitriptyline Hcl 10 Mg Tab) 10 mg PO HS [facility] Last Admin: 05/28/21 20:14 Dose: 10 mg Documented by: Chlorhexidine Gluconate (Chlorhexidine Gluconate 15 Ml Cup) 15 ml MUCOUS MEM BID [facility] Last Admin: 05/29/21 09:33 Dose: 15 ml Documented by: Cholecalciferol (Cholecalciferol 25 Mcg (1000 Iu) Tablet) 50 mcg PO DAILY [facility] Last Admin: 05/29/21 09:33 Dose: 50 mcg Documented by: Escitalopram Oxalate (Escitalopram 20 Mg Tab) 20 mg PO DAILY [facility] Last Admin: 05/29/21 09:33 Dose: 20 mg Documented by: Folic Acid (Folic Acid 1 Mg Tab) 1 mg PO DAILY@1200 [facility] Last Admin: 05/29/21 12:47 Dose: 1 mg Documented by: Hydromorphone HCl (Hydromorphone 0.5 Mg/0.5 Ml Syringe) 0.5 mg IVP Q3HR PRN PRN Reason: Severe Pain Last Admin: 05/29/21 14:40 Dose: 0.5 mg Documented by: Fluconazole/Sodium Chloride (100 mg/ IV Solution) 50 mls @ 50 mls/hr IVPB DAILY [facility] Last Admin: 05/29/21 09:40 Dose: 50 mls/hr Documented by: Propofol 1,000 mg/ IV Solution 100 mls @ 0 mls/hr IV .Q0M [facility]; Protocol Last Admin: 05/29/21 06:52 Dose: 30 mcg/kg/min, 9.36 mls/hr Documented by: Acetaminophen 1,000 mg/ IV (Solution) 100 mls @ 400 mls/hr IVPB Q6HR PRN PRN Reason: Fever Stop: 06/09/21 08:05 Piperacillin Sod/Tazobactam (Sod 3.375 gm/ Sodium Chloride) 100 mls @ 25 mls/hr IVPB Q8HR [facility] Last Admin: 05/29/21 09:00 Dose: 25 mls/hr Documented by: Insulin Aspart (Insulin Aspart (Novolog) 100 Unit/Ml Vial) 0 unit SQ Q4H [facility]; Protocol Last Admin: 05/29/21 12:44 Dose: Not Given Documented by: Insulin Detemir (Insulin Detemir (Levemir) 100 Unit/Ml Syr) 20 unit SQ [facility] Last Admin: 05/28/21 20:54 Dose: Not Given Documented by: Loperamide HCl (Loperamide 2 Mg Cap) 2 mg PO QID PRN PRN Reason: Diarrhea Last Admin: 05/21/21 17:48 Dose: 2 mg Documented by: Miscellaneous Information (Magnesium Replacement Protocol 1 Each Misc) 1 each MISCELLANE DAILY PRN; Protocol PRN Reason: Per Protocol Miscellaneous Information (Potassium Replacement Protocol 1 Each Misc) 1 each MISCELLANE DAILY PRN; Protocol PRN Reason: Per Protocol Montelukast Sodium (Montelukast 10 Mg Tab) 10 mg PO [facility] Last Admin: 05/28/21 20:14 Dose: 10 mg Documented by: Multivitamins (Multivitamins, Thera 1 Each Tab) 1 each PO DAILY@1200 [facility] Last Admin: 05/29/21 12:47 Dose: 1 each Documented by: Nystatin (Nystatin 100,000 Unit/Ml Susp 500,000 Unit/5 Ml Cup) 500,000 unit PO QID [facility] Last Admin: 05/29/21 12:47 Dose: 500,000 unit Documented by: Pantoprazole Sodium (Pantoprazole 40 Mg/10 Ml Vial) 40 mg IVP DAILY [facility] Last Admin: 05/29/21 09:34 Dose: 40 mg Documented by: Pregabalin (Pregabalin 75 Mg Cap) 75 mg PO TID [facility] Last Admin: 05/29/21 09:41 Dose: 75 mg Documented by: Sumatriptan Succinate (Sumatriptan Succinate 50 Mg Tab) 100 mg PO DAILY PRN PRN Reason: Migraine Headache Thiamine HCl (Thiamine 100 Mg Tab) 100 mg PO BID-W/MEALS [facility] Last Admin: 05/29/21 05:57 Dose: Not Given Documented by: Zinc Sulfate (Zinc Sulfate 220 Mg Cap) 220 mg PO DAILY [facility] Last Admin: 05/29/21 09:34 Dose: 220 mg Documented by: Physical Exam: Gen: This is a 36-year-old female who is intubated and sedated, thin built, cachectic. Temp is 97.7F, pulse is 72, respirations are 25, blood pressure is 98/70, oxygen saturation is 96% on 40% FiO2 mechanical vent HEENT: Head is atraumatic, normocephalic. Pupils equal, round. Sclerae is anicteric. oral mucosa is dry and white patches noted on tongue, cracking and lesions noted on the lips NECK: Supple. No JVD. No lymphadenopathy. No thyromegaly. LUNGS: Breath sounds diminished with scattered rhonchi and crackles noted. No intercostal retractions. HEART: S1, S2 are muffled ABDOMEN: Soft. Bowel sounds are present. No masses. No tenderness. EXTREMITIES: No pedal edema. No calf tenderness. NEUROLOGICAL: Patient is lethargic but arousable. Nodding yes and no to simple commands . 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 Infectious disease and pulmonary following closely and patient remains on mechanical vent and weaning attempts ongoing. FI02 is down to 40% with a PEEP of 5 patient is awake mildly sedated with propofol. General surgery performed trach and PEG tube placement this morning. Mother at the bedside and her questions and concerns were answered to the best of our ability. Recommend repeat labs and follow-up chest x-ray in the morning. Recommend to keep the bed elevated 30-45 at all times and maintain aspiration precautions. Blood cultures remain negative. ID following and maintained on IV zosyn along with nystatin and fluconazole. Recommend to continue to monitor blood sugars closely.Due to multiple complex medical issues prognosis is guarded. Objective - Vital Signs Vital signs: Vital Signs Temp 97.7 F 05/29/21 04:00 Pulse 71 05/29/21 07:00 Resp 25 H 05/29/21 07:00 BP 117/80 05/29/21 07:00 Pulse Ox 97 05/29/21 07:00 Intake & Output 05/28/21 05/29/21 05/29/21 18:59 06:59 18:59 Intake Total 533.008 460 Output Total 860 1905 Balance -326.992 -1445 Intake: IV 340 360 Normal Saline 0.9 @ KVO 240 260 Piperacillin-Tazobactam 3 100 100 .375 gm In Sodium Chloride 0.9% 100 ml @ 25 mls/hr IVPB Q8HR [facility] Rx# :[id number] Intake, IV Titration 73.008 100 Amount propofoL 1,000 mg In 73.008 100 Empty Bag 1 bag @ Titrate IV .Q0M [facility] Rx#: [id number] Other 120 Output: Urine 860 1405 Stool 500 Other: Voiding Method Indwelling Catheter Indwelling Catheter - Labs CBC & Chem 7: 05/29/21 04:23 05/29/21 04:23 Labs: Abnormal Lab Results - Last 24 Hours (Table) 05/28/21 05/28/21 05/28/21 Range/Units 08:53 11:28 15:50 RBC (3.80-5.40) m/uL Hgb (11.4-16.0) gm/dL Hct (34.0-46.0) % MCHC (31.0-37.0) g/dL RDW (11.5-15.5) % ABG pH (7.35-7.45) ABG pO2 (83-108) mmHg ABG HCO3 (21-25) mmol/L ABG Total CO2 (19-24) mmol/L Sodium (137-145) mmol/L Glucose (74-99) mg/dL POC Glucose (mg/dL) 150 H 164 H 116 H (75-99) mg/dL Calcium (8.4-10.2) mg/dL Total Protein (6.3-8.2) g/dL Albumin (3.5-5.0) g/dL 05/28/21 05/28/21 05/29/21 Range/Units 20:41 23:59 04:04 RBC (3.80-5.40) m/uL Hgb (11.4-16.0) gm/dL Hct (34.0-46.0) % MCHC (31.0-37.0) g/dL RDW (11.5-15.5) % ABG pH (7.35-7.45) ABG pO2 (83-108) mmHg ABG HCO3 (21-25) mmol/L ABG Total CO2 (19-24) mmol/L Sodium (137-145) mmol/L Glucose (74-99) mg/dL POC Glucose (mg/dL) 135 H 156 H 187 H (75-99) mg/dL Calcium (8.4-10.2) mg/dL Total Protein (6.3-8.2) g/dL Albumin (3.5-5.0) g/dL 05/29/21 05/29/21 05/29/21 Range/Units 04:23 04:23 05:18 RBC 3.48 L (3.80-5.40) m/uL Hgb 9.4 L (11.4-16.0) gm/dL Hct 30.8 L (34.0-46.0) % MCHC 30.5 L (31.0-37.0) g/dL RDW 16.2 H (11.5-15.5) % ABG pH 7.50 H (7.35-7.45) ABG pO2 79 L (83-108) mmHg ABG HCO3 32 H (21-25) mmol/L ABG Total CO2 33 H (19-24) mmol/L Sodium 134 L (137-145) mmol/L Glucose 189 H (74-99) mg/dL POC Glucose (mg/dL) (75-99) mg/dL Calcium 7.4 L (8.4-10.2) mg/dL Total Protein 5.4 L (6.3-8.2) g/dL Albumin 1.8 L (3.5-5.0) g/dL Microbiology - Last 24 Hours (Table) 05/24/21 17:23 Blood Culture - Preliminary Blood No Growth after 96 hours 05/24/21 17:23 Blood Culture - Preliminary Blood No Growth after 96 hours 05/23/21 09:13 Blood Culture - Preliminary Blood No Growth after 120 hours 05/23/21 08:57 Blood Culture - Preliminary Blood No Growth after 120 hours
[2021-05-29 16:39] LABS: Glucose,Whole Blood 128 mg/dL (75-99)
[2021-05-29 20:24] LABS: Glucose,Whole Blood 122 mg/dL (75-99)
[2021-05-29] MEDS: INSULIN DETEMIR (LEVEMIR) 100 UNIT/ML SYR SQ SCH (20:27)
[2021-05-29] MEDS: AMITRIPTYLINE HCL 10 MG TAB PO SCH (21:24)
[2021-05-29] MEDS: MONTELUKAST 10 MG TAB PO SCH (21:25)
[2021-05-30 00:08] LABS: Glucose,Whole Blood 106 mg/dL (75-99)
[2021-05-30] MEDS: INSULIN ASPART (NovoLOG) 100 UNIT/ML VIAL SQ SCH ×6 (00:20→20:47)
[2021-05-30] MEDS: PIPERACILLIN-TAZOBACTAM 3.375 GM in SODIUM CHLORIDE 0.9% 100 ML IVPB SCH ×3 (00:55→16:30)
[2021-05-30] MEDS: HYDROmorphone 0.5 MG/0.5 ML SYRINGE IVP PRN ×6 (02:17→21:58)
[2021-05-30 04:02] LABS: Glucose,Whole Blood 105 mg/dL (75-99)
[2021-05-30 05:43] LABS: Basophils # (A) 0.1 k/uL (0-0.2); Basophils % (A) 0 %; Eosinophils # (A) 0.1 k/uL (0-0.7); Eosinophils % (A) 1 %; HCT 31.8 % (34.0-46.0); HGB 9.6 gm/dL (11.4-16.0); Hypochromasia Marked; Lymphocytes # (A) 1.3 k/uL (1.0-4.8); Lymphocytes % (A) 11 %; MCH 26.9 pg (25.0-35.0); MCHC 30.3 g/dL (31.0-37.0); MCV 88.8 fL (80.0-100.0); Mean Platelet Volume 8.6; Monocytes # (A) 0.5 k/uL (0-1.0); Monocytes % (A) 4 %; Neutrophils # (A) 9.3 k/uL (1.3-7.7); Neutrophils % (A) 82 %; Platelet Count 474 k/uL (150-450); Poikilocytosis Slight; RBC 3.58 m/uL (3.80-5.40); RDW 15.9 % (11.5-15.5); WBC 11.3 k/uL (3.8-10.6)
[2021-05-30 05:46] LABS: ALT 6 U/L (4-34); AST 20 U/L (14-36); African American GFR (CKD) >90 (>60 ml/min/1.73 sqM); Albumin 1.9 g/dL (3.5-5.0); Alkaline Phosphatase 79 U/L (38-126); Anion Gap 7 mmol/L; Blood Urea Nitrogen 8 mg/dL (7-17); Calcium 7.2 mg/dL (8.4-10.2); Carbon Dioxide 27 mmol/L (22-30); Chloride 101 mmol/L (98-107); Glucose 106 mg/dL (74-99); Non-African American GFR(CKD) >90 (>60 ml/min/1.73 sqM); Potassium 4.3 mmol/L (3.5-5.1); Sodium 135 mmol/L (137-145); Total Bilirubin 0.4 mg/dL (0.2-1.3); Total Protein 5.6 g/dL (6.3-8.2)
[2021-05-30 06:06] LABS: ABG HCO3 30 mmol/L (21-25); ABG Oxygen Saturation 95.6 % (94-97); ABG PCO2 50 mmHg (35-45); ABG PH 7.39 (7.35-7.45); ABG PO2 79 mmHg (83-108); ABG TCO2 32 mmol/L (19-24)
[2021-05-30 06:18] LABS: Allen Test Performed? YES
[2021-05-30] MEDS: THIAMINE 100 MG TAB PO SCH ×2 (06:49→17:46)
[2021-05-30 08:46] LABS: Glucose,Whole Blood 99 mg/dL (75-99)
[2021-05-30] MEDS: FLUCONAZOLE IN NACL,ISO-OSM 100 MG in SALINE 1 50ML.BAG IVPB SCH (09:30)
[2021-05-30] MEDS: FOLIC ACID 1 MG TAB PO SCH (09:34)
[2021-05-30] MEDS: CHOLECALCIFEROL 25 MCG (1000 IU) TABLET PO SCH (09:34)
[2021-05-30] MEDS: ZINC SULFATE 220 MG CAP PO SCH (09:34)
[2021-05-30] MEDS: NYSTATIN 100,000 UNIT/ML SUSP 500,000 UNIT/5 ML CUP PO SCH ×4 (09:34→21:30)
[2021-05-30] MEDS: PANTOPRAZOLE 40 MG/10 ML VIAL IVP SCH (09:34)
[2021-05-30] MEDS: CHLORHEXIDINE GLUCONATE 15 ML CUP MUCOUS MEM SCH ×2 (09:34→21:30)
[2021-05-30] MEDS: ESCITALOPRAM 20 MG TAB PO SCH (09:34)
[2021-05-30] MEDS: PREGABALIN 75 MG CAP PO SCH ×3 (09:35→21:30)
[2021-05-30] MEDS: MULTIVITAMINS, THERA 1 EACH TAB PO SCH (09:36)
[2021-05-30] MEDS ORDERED: ONDANSETRON 4 MG/2 ML VIAL ONE (11:14)
[2021-05-30] MEDS: ONDANSETRON 4 MG/2 ML VIAL IVP PRN ×2 (11:20→21:42)
--- NOTE | 2021-05-30 13:44 | P.PN ---
Subjective Progress Note Date: 05/30/21 This is a 36-year-old old female, seen in the emergency room, room 10. The patient was just discharged out of the hospital yesterday, May 16. The patient apparently returned to the emergency room, with a low blood sugar. She was brought in by EMS. She apparently has no memory of why she was in the ospital. She apparently was hungry when she came into the ER. She complained of back pain. Her blood glucose on arrival was 36. The patient was in the hospital recently for a left-sided pneumonia. The patient also has a history of diabetes with diabetic ketoacidosis. The patient is currently on O2 at 2 L. She's getting D5 0.9 at 75 mL an hour. She was given Augmentin, but we discontinued it in favor of Zosyn. The patient has a history of diabetes, diabetic neuropathy, chronic low back pain, migraine cephalgia, chronic constipation, and prior MRSA infection. White count 21.9, hemoglobin 8.8, hematocrit 28.7, and platelet count 474,000. Sodium 129, potassium 4.4, chlorides 102, CO2 24, anion gap 3, BUN 7, with a creatinine of 0.29. Albumin is 2. Urine is light yellow in color, and cloudy, leukocyte esterase being small positive, 9 WBCs, and rare bacteria. Drug screen is negative. Testing for ling virus was negative. Chest x-ray shows bilateral pneumonia, with dense consolidation within the left lung, and much less infiltrate in the right base. Progress note dated 05/18/2021. This is a 36-year-old female, who was seen in the emergency department in consultation yesterday, and room 10. The patient was recently discharged from the hospital on May 16. She was brought back in for mental status changes, and a low blood sugar. Apparently her blood glucose was only 36. Her prior admission was for diabetic ketoacidosis, and left-sided ammonia. Currently, she is back to her normal self. The patient is on 4 L nasal O2. She's not complaining of any respiratory distress or difficulty. She has a dry nonproductive cough. She was placed on Zosyn yesterday by our team. She was seen by infectious diseases. She has a history of diabetes, diabetic neuropathy , chronic low back pain, migraine cephalgia, chronic constipation, and prior MRSA infection. Currently, white count 19.3, he will been 7.2, hematocrit 24, and platelet count 449,000. Sodium 133, potassium 3.8, chlorides 100, CO2 21, anion gap 12, UN 7, and creatinine 0.4. Pro-calcitonin level is 0.15. C- reactive protein is 5.7. On today's evaluation of 05/19/2021, the patient is doing well. The patient is awake and alert. No signs of any significant respiratory distress. The patient was restarted back on IV Zosyn. The chest x-ray showed extensive consolidation of the left lung and the CAT scan of the chest also confirmed the same findings. The patient was Hospital as because of hypoglycemia. The patient altered mentation and she recovered fully. She is currently on Levemir 20 units along with sliding scale coverage. She is also on D5 water running at 100 mL an hour. Antibiotic coverage with IV Zosyn. Blood work shows a white cell count 12.4 with hemoglobin 8.5, BUN is at 5 with a creatinine of 0.4 and his sodium is at 134 with a potassium level of 3.3. The COVID 19 test that was negative. Urine drug screen was negative. Pro-calcitonin level has been consistently low. A focused on level was at 0.15. The patient currently is on oxygen 4 L per minute nasal cannula. She is afebrile. She is medically and hemodynamically stable at this point in time. She has poor dental conditions and poor oral hygiene. She has also developed some ulceration over the tip of the tongue probably related to candidal infection. On 2021, the patient's condition decompensated and the patient got transferred to the intensive care unit for respiratory support. Overnight, the patient became progressively more hypoxemic and short of breath. She was given a dose of Lasix 40 mg IV push without any much improvement. She was becoming also more lethargic and short of breath. She got transferred to the ICU. Currently she is on a BiPAP at a pressure of 12/6 cm of water with an FiO2 of 100%. Her Pulse Ox Is 99%. A Chest X-Ray Showed Extensive Consolidation of the Left Lung. There Are Some Air Bronchograms on the Left. At the Same Time There Are Some Air Pockets in the Left [place] Which Makes Me Concerned about an Underlying Cavitation/Abscess Formation. At the Same Time, There Is Progression of the Airspace Disease and There Is Development of New Patchy Opacities in the Right Midlung and the Right Lower Lung. Note That the Patient Was Covered with IV Zosyn for Any Potential Aspiration Pneumonia.Pro-Calcitonin Level Was at 0.15. Currently She Is on BiPAP Which Is Quite Comfortable. She instructed BiPAP dependent. The patient easily decompensates and desaturates 1 she's taken off the BiPAP. Note that she also had extensive oropharyngeal candidiasis and ulceration of the tongue for which she was given Diflucan. I added cold solution on her yesterday. She is unable to do adequate oral care as the patient is BiPAP dependent. In terms of IV fluids, the patient is on D5 water running at 40 mL an hour. This was started due to concerns of underlying episodes of hypoglycemia. She is a very brittle diabetic. Her blood sugars are all over the place. She is currently on Levemir insulin 20 units a day along with a sliding scale coverage. The Levemir insulin was given today. She is not eating much at this point in time as the patient is BiPAP dependent. Other blood work, her white cell count of 19.0 which is higher compared to yesterday. Hemoglobin is at 7.8. The blood gas while on 100% BiPAP initially showed a pH of 7.37 with a pCO2 of 46 and pO2 of 50. Current saturations up to 90%. Sodium is at 130 with a potassium level of 3.4 and a serum bicarb of 23 with a mean of 4 and a creatinine of 0.4. Her albumin is down to 2.0 with a total protein of 5.7. Cultures for now are negative in terms of blood culture. Note that the patient had MRSA and E. coli and strep in her urine back in 05/09/2021. She has also has had a previous MRSA wound infection involving the scalp. She is arousable. She is a bit lethargic. No agitation. On 05/21/2021 patient seen in follow-up in the intensive care unit, she currently remains on BiPAP support as of 12 and 600%, and her pulse ox is 99- 100%, she is awake and alert, oriented 3, she is extremely thirsty and hungry, does not appear to be in any acute distress, no complaints of worsening dyspnea, she seems to be breathing comfortably, nursing staff reports that patient was able to come off the BiPAP support to take sips of water, oral care, and pills, and patient tolerates being off BiPAP support better although she does desaturate. She is afebrile, hemodynamically she is stable, she remains on a combination of meropenem and vancomycin and Diflucan which were modified yesterday. Blood cultures have been negative thus far, she's been afebrile, no hemoptysis, no complaints of chest discomfort. Produced 5.2 L in urine output in response to Lasix, and she is in -3.8 L net fluid balance over the last 24 hours, today's chest x-ray has been reviewed, showing stable diffuse bilateral airspace disease. Absent been reviewed, white blood cell count is 20.2, hemoglobin is 7.9, platelet count is 482, serum sodium is 133, potassium 3.7, chloride is 104, CO2 is 24, B1 is 5 creatinine 0.42. Her last pro-calcitonin level from 05/18/2021 was 0.15. On 05/22/2021 patient seen in follow-up in intensive care unit, last night during an episode of getting cleaned up after having a bowel movement patient complained of not feeling well, she certainly became unresponsive, she started desaturating, her respirations became very agonal and rapid response team was called for ERIC BLUE. There was no seizure activity noted prior to the event, patient was not desaturating just prior to that, no arrhythmias were noted other than bradycardia after she had started desaturating. During the code patient did not lose her pulse, her pulse ox was down to 66% on high flow Airvo, she was emergently intubated and placed on mechanical ventilator, chest x-ray shows severe ARDS, she was hypotensive and received IV fluids and received norepinephrine infusion which is currently still infusing at 0.06 mics per kilo per minute, she was not hypoglycemic and her blood sugar at that time was 177, she had D5W infusing at 40, and she was starting to take in some oral intake. This morning she is sedated, intubated on assist control mode of ventilation with a rate of 16, tidal, 350, FiO2 is currently at 50% and PEEP of 8, this morning's blood gas shows pO2 of 102, pCO2 of 43, pH is 7.34, this was done on 70% FiO2 which had since been dropped down to 50%, this morning's chest x-ray was reviewed showing moderately severe pulmonary air space edema, without significant change compared to yesterday. The patient is in sinus mechanism, blood pressure is 112/72, currently on meropenem, vancomycin and Diflucan for aspiration pneumonia, blood cultures have been negative, patient has not been able to produce a sputum culture for us. Her labs reveal white blood cell count of 26.8 which is increased since yesterday from 20.2, hemoglobin of 7.9, platelet count of 530, sodium is 134, potassium is 4.0, chloride is 107, CO2 is 21, BUN is 7 creatinine 0.52, her glucose this morning is 203, LFTs were within normal limits, her last pro-calcitonin level from a few days ago was 0.15. Yesterday patient was given a liter bolus after she became intubated, she is producing urine in the order of 30-75 ML per hour, her Lasix is on hold. On 05/23/2021 patient seen in follow-up in the intensive care unit, she is sedated, intubated on mechanical ventilator with a assist control mode of ventilation and rate of 16, tidal emesis 50, FiO2 of 60% and PEEP of 8, this morning's blood gas was reviewed showing O2 of 154, pCO2 of 45, and pH of 7.37. Is currently on Diprivan at 40 mics per kilo per minute, Levaquin is at 3 mics per minute, 0.9 saline at any ML per hour. Today's chest x-ray showing persistent but improving bilateral airspace disease, right greater than left. There is some blood work has been reviewed showing white blood cell count of 13.4, hemoglobin of 7.3, sodium of 140, potassium is 3.9, chloride is 110, CO2 of 22, BUN of 6, creatinine of 0.62, this morning his glucose was 221. Recent have fevers overnight with a T-max of 101.5F. She currently remains on combination of meropenem, vancomycin and Diflucan. Patient is status post bronchoscopy and bronchoalveolar lavage on 05/22/2021, and BAL cultures are still pending. Gram stain showed no organisms thus far. Patient is tolerating tube feedings with vital HP at a rate of 20 ML per hour, Orellana catheter is in place, and patient is producing urine in the order of 50 to 100 mL per hour. On 05/24/2021 , is being seen for a follow-up. Note that the patient was extubated successfully yesterday. Extubation process went fine and the patient was doing very well on a nasal cannula oxygen. At around midnight, the patient acutely decompensated. She became short of breath and hypoxic. Her blood. This was done that showed acute respiratory acidosis with a pH of 7.24 with a pCO2 of 67 and pO2 of 80 and this was identified to 100%. He became acutely unresponsive and significant respiratory distress was noted by the nursing staff. At that point, it was decided that he intubated the patient. The patient is currently intubated on a mechanical ventilator. The patient is sedated with propofol which is running at 30 mcg/kg per minute to maintain synchrony with the mechanical ventilator. She is on assist control mode at the rate of 25, tidal volume of 350, FiO2 has been weaned down to 50% and the patient currently is in a PEEP of 10. Post intubation blood gases showed a pH of 7.48 with a pCO2 of 43 and pO2 of more than 400 and this was on FiO2 100%. Morning blood work also showed a drop in hemoglobin down to 6.1 from a baseline of 7.3. No evidence of any acute bleeding. No evidence of any hematemesis or melanotic stools. The patient will be given a total of 2 units of packed RBCs. Also, the patient is covered with broad-spectrum antibiotics patient remains on a combination of meropenem, vancomycin and Diflucan. The cultures from the bronchioloalveolar lavage was done earlier came back all negative. The repeat chest x-ray from today is showing adequate placement of the orotracheal tube. The patient continues to have bilateral pulmonary infiltrates. However, there is significant interval improvement in the bilateral pulmonary infiltrates compared to earlier chest x-rays. The white cycles of 7.12. Renal function is stable with a creatinine of 0.5 and a BUN of 7. Sodium level is at 144. Potassium level is at 3.2 and a K level will be replaced. The patient was restarted again on enteral feeding and this will be restarted today. Meanwhile, in terms of blood sugar control, the patient is receiving Levemir insulin 20 units once a day and a sliding scale coverage. Blood sugars have been maintained adequately and her most recent blood sugar currently is at 172. Her vancomycin felt level from today was 28. 05/25/2021, the patient is awake even on a low dose of propofol at 30 mcg/kg per minute. She is following commands. She wants to get the tube out. She is on a mechanical ventilator at the rate of 25, tidal volumes of 350, PEEP is at 10 and FiO2 is currently at 40%. PH is at 7.48 with a pCO2 of 43 and pO2 of 113. The lavage from the lungs did not yield any microbial growth. The patient continues to have diffuse bilateral pulmonary infiltrates and there is extensive consolidation bilaterally more so on the right. White secondary to 6.7. Hemoglobin is at 10.1 platelet count is at 356. Creatinine stable at 0.4. BUN is at 7. Sodium is at 139. LFTs are normal. Blood sugars at 168. The patient remains on a broad-spectrum antibiotic coverage. The patient is receiving IV Diflucan, IV vancomycin and IV meropenem. There was always the concern of aspiration in this patient as the patient developed initially extensive left lung consolidation subsequently infiltrates moved to the right. The bronchoscopy was done yielded no significant respiratory secretions or microbial growth at this point in time. She is on Levemir insulin and a sliding scale coverage. She is on no pressors for now. She is is slightly positive over the past 24 hours. The patient was receiving enteral feeding for nutritional support. She is currently on vital high protein at the rate of 20 mL an hour. No hypoglycemic attacks. As mentioned, she is easily arousable and she is moving all 4 extremities without any limitation. No fever. No significant leukocytosis. All of the cultures are negative. She remains on D5W at the rate of 75 mL an hour. No reported abdominal pain. LFTs are normal. Ultrasound abdomen showed a questionable gallbladder wall thickening and a calculus cholecystitis. On 05/26/2021 patient seen in follow-up in the intensive care unit, she is currently sedated, and intubated, on assist-control mode of ventilation with a rate of 25, tidal 350, FiO2 of 50% and PEEP of 5, this morning's blood gas shows pO2 of 55, pCO2 of 41, and pH of 7.54 and this was done and FiO2 of 40% and subsequently FiO2 was increased to 55%. She's currently on point and within indurated 20 ML per hour, norepinephrine drip has been off for over 12 hours, and improving and is at 30 mics per kilo per minute, she is on a vital high protein at a rate of 20 with standard water flushes 30 mL every 4 hours, today's chest x-ray has been reviewed showing bilateral multifocal confluent opacities. No significant change from one day earlier. Patient remains on a combination of antibiotics with Zosyn, vancomycin and Diflucan. Patient is status post bron choscopy with bronchoalveolar lavage on 05/22/2021, and so far BAL cultures are all negative, sputum and blood cultures and urine were all negative. Today's labs have been reviewed, white blood cell count is improved and is down to 7.3, hemoglobin is 9.8, sodium is 137, potassium is 3.4, chloride is 105, BUN is 8, creatinine 0.53. Hemodynamic patient is stable, she is in sinus mechanism, she has had no acute events overnight. No febrile episodes. He is currently likely sedated, she is opening eyes to verbal stimulation, and she seems to be following simple commands. Her LFTs are within normal limits. On 05/27/2021 patient seen in follow-up in the intensive care unit, she is lightly sedated, she opens her eyes to voice, she is following simple commands, does not appear to be in any acute distress, she still intubated, on assist- control mode of ventilation with a rate of 25, Tylenol level was 350, FiO2 of 50% and PEEP of 5, this morning's blood gas shows pO2 of 85, pCO2 44, and pH of 7.52. This was done on the above-mentioned ventilator settings. Today's chest x-ray changed to show patchy bilateral lung infiltrates that are stable in appearance. Vital signs have been stable overnight, no fever, no chills. All of her cultures including BAL cultures remained negative. Patient remains on a combination of antibiotics with Diflucan, Zosyn and vancomycin. She did require small dose of norepinephrine on which she remains, currently infusing at a rate of 3.9 mics per minute. Current blood pressure is 140/89, and norepinephrine can be discontinued. Urine output is in the order of 50 TOPD ML per hour. Patient is receiving the program at 30 mics per kilo per minute, and IV fluids are 0.9 normal saline at a rate of 20 ML per hour, she is tolerating tube feedings with vital AF at a rate of 36 with a goal of 36 and standard water flushes. Today's labs have been reviewed showing white blood cell, 7.4, hemoglobin of 10.4, platelet count of 377, sodium is 137, potassium is 3.4, chloride is 105, CO2 of 33, BUN of 9 creatinine 0.56 On 05/28/2021 patient is seen in follow-up in the intensive care unit, she is slightly sedated, she is awake, alert, she is following command, she still intubated on mechanical ventilator, on assist control mode of ventilation with a rate of 25, tidal volume 350, FiO2 of 40% and PEEP of 5. This was blood gas shows pO2 of 76, P CO2 of 43, and pH is 7.53 this was done on the above- mentioned ventilator settings, she is currently on 30 mics of dopamine, 0.9 normal seen at a rate of 20 ML per hour, tube feedings have been placed on hold for tracheostomy and PEG tube placement possibly today, she is hemodynamically stable, not requiring any vasopressor support. She is in sinus mechanism with a rate of 76 BPM, he had no acute events overnight, today's chest x-ray showing no evident pneumothorax, bilateral airspace disease similar to the prior exam, she said no fever or chills, vital signs have been stable overnight, she said no acute events, remains on the same antibiotics with a combination of Diflucan, Zosyn. Ankle Meissen has been discontinued, ID service is following. Her BAL cultures have shown no growth, urine, and blood cultures have been negative as well. Today's labs have been reviewed, her white blood cell count is 6.8, hemoglobin is 9.4, sodium is 137, potassium is 4.2, chloride is 105, CO2 is 23, BUN of 9, creatinine 0.59. 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 Generally patient is very weak. But does not appear to be in any acute distress, midline tracheostomy in place, incisions clean dry and intact, patient also received a PEG tube. Her tube feedings are on hold, she remains on Diflucan, she remains on Zosyn for empiric antibiotic coverage. All of patient's blood cultures BAL cultures and sputum cultures have remained negative to date. She's had no fever or chills. She is currently on assist control mode of ventilation with a rate of 25, tidal vital 350, FiO2 100%, and PEEP of 5. Prior to her procedure this morning patient was on the same ventilator settings with the exception of FiO2 which was at 40%, her morning blood gases were reviewed showing pO2 of 79, pCO2 41, pH is 7.50, this was done on 40% FiO2, currently patient is saturating at 100% on a heart percent FiO2 and PEEP of 5. Breathing comfortably, and her FiO2 was dropped down to 60% and -50%. Chest x-ray showing bilateral multifocal and confluent opacities greatest in the right lung no significant change compared to one day earlier. Patient has been off norepinephrine for 48 hours, to prevent is infusing at 30 mics per kilo per minute, 0.9 normal saline at a rate of 20 ML per hour, she is in sinus mechanism with a rate of 90-100 bpm, his labs have been reviewed with blood cell count is 7.5, hemoglobin is 9.4, platelet count was 386, sodium is 134, the rest of electrolytes and renal profile are unremarkable. On 05/30/2021 patient is seen in follow-up in the intensive care unit, she status post tracheostomy and PEG tube placement yesterday on 05/29/2021, she tolerated procedure very well, she is currently on pressure support of 10, FiO2 of 40%, CPAP 5, she tolerated it very well, this morning's blood gas has been reviewed, pO2 of 79, pCO2 of 50, and pH of 7.39. Chest x-ray yesterday showed bilateral multifocal and confluent opacities without significant change from the day earlier, no need for another chest x-ray today, we'll obtain follow-up chest x-ray for tomorrow. She is currently off the prevent, and sedation has been off since yesterday. She is on 0.9 normal saline at a rate of 20 ML per hour, she remains on a combination of antibiotics was Diflucan and Zosyn, all of her cultures including BAL cultures have remained negative, she has been stable overnight, she's been afebrile, no complaint of chest discomfort. No hemoptysis. Today's labs have been reviewed showing white blood cell count of 11.3, hemoglobin of 9.6, platelet count of 474, sodium is 135, the rest of electrolytes and renal profile are within normal limits, BUN is 8, creatinine 0.59. Patient is supposed to be restarted on tube feedings. She is awake and alert, in no acute distress, she's been hemodynamically stable, not requiring any vasopressor support, she is following all commands, seems to be in good spirits. She's had no acute events overnight. Objective - Vital Signs Vital signs: Vital Signs Temp 97.9 F 05/30/21 04:00 Pulse 103 H 05/30/21 07:00 Resp 17 05/30/21 07:00 BP 106/67 05/30/21 07:00 Pulse Ox 94 L 05/30/21 07:00 Intake & Output 05/29/21 05/30/21 05/30/21 18:59 06:59 18:59 Intake Total 420 340 20 Output Total 870 610 50 Balance -450 -270 -30 Weight 52 kg Intake: IV 300 340 20 Normal Saline 0.9 @ KVO 200 240 20 Piperacillin-Tazobactam 3 100 100 .375 gm In Sodium Chloride 0.9% 100 ml @ 25 mls/hr IVPB Q8HR [facility], [facility] Rx# :[id number] Other 120 Output: Urine 665 510 50 Stool 200 Urine/Stool Mix 100 Estimated Blood Loss 5 Other: Voiding Method Indwelling Catheter Indwelling Catheter # Voids 1 - Exam GENERAL EXAM: Awake and alert, oriented 3 trached to the ventilator 36-year-old frail looking white female, on pressure-support of 10, CPAP 5, and FiO2 of 40%, comfortable in no apparent distress. HEAD: Normocephalic/atraumatic. EYES: Normal reaction of pupils, equal size. Conjunctiva pink, sclera white. NOSE: Clear with pink turbinates. MOUTH: She has ulcerations of her oral cavity THROAT: No erythema or exudates. NECK: No masses, no JVD, no thyroid enlargement, no adenopathy. Midline tracheostomy in place, connected to the ventilator, patient is clean dry and intact CHEST: No chest wall deformity. Symmetrical expansion. LUNGS: diminished air entry with crackles, no wheeze, no rhonchi or dullness. CVS: Regular rate and rhythm, normal S1 and S2, no gallops, no murmurs, no rubs ABDOMEN: Soft, nontender. No hepatosplenomegaly, normal bowel sounds, no guarding or rigidity. PEG tube covered with a surgical dressing EXTREMITIES: No clubbing, no edema, no cyanosis, 2+ pulses and upper and lower extremities. MUSCULOSKELETAL: Muscle strength and tone normal. SPINE: No scoliosis or deformity SKIN: No rashes CENTRAL NERVOUS SYSTEM: Awake and alert, following command No focal deficits, tone is normal in all 4 extremities. - Labs CBC & Chem 7: 05/30/21 04:06 05/30/21 04:06 Labs: Abnormal Lab Results - Last 24 Hours (Table) 05/29/21 05/29/21 05/29/21 Range/Units 16:38 20:22 23:59 WBC (3.8-10.6) k/uL RBC (3.80-5.40) m/uL Hgb (11.4-16.0) gm/dL Hct (34.0-46.0) % MCHC (31.0-37.0) g/dL RDW (11.5-15.5) % Plt Count (150-450) k/uL Neutrophils # (1.3-7.7) k/uL ABG pCO2 (35-45) mmHg ABG pO2 (83-108) mmHg ABG HCO3 (21-25) mmol/L ABG Total CO2 (19-24) mmol/L Sodium (137-145) mmol/L Glucose (74-99) mg/dL POC Glucose (mg/dL) 128 H 122 H 106 H (75-99) mg/dL Calcium (8.4-10.2) mg/dL Total Protein (6.3-8.2) g/dL Albumin (3.5-5.0) g/dL 05/30/21 05/30/21 05/30/21 Range/Units 04:01 04:06 04:06 WBC 11.3 H (3.8-10.6) k/uL RBC 3.58 L (3.80-5.40) m/uL Hgb 9.6 L (11.4-16.0) gm/dL Hct 31.8 L (34.0-46.0) % MCHC 30.3 L (31.0-37.0) g/dL RDW 15.9 H (11.5-15.5) % Plt Count 474 H (150-450) k/uL Neutrophils # 9.3 H (1.3-7.7) k/uL ABG pCO2 (35-45) mmHg ABG pO2 (83-108) mmHg ABG HCO3 (21-25) mmol/L ABG Total CO2 (19-24) mmol/L Sodium 135 L (137-145) mmol/L Glucose 106 H (74-99) mg/dL POC Glucose (mg/dL) 105 H (75-99) mg/dL Calcium 7.2 L (8.4-10.2) mg/dL Total Protein 5.6 L (6.3-8.2) g/dL Albumin 1.9 L (3.5-5.0) g/dL 05/30/21 Range/Units 06:00 WBC (3.8-10.6) k/uL RBC (3.80-5.40) m/uL Hgb (11.4-16.0) gm/dL Hct (34.0-46.0) % MCHC (31.0-37.0) g/dL RDW (11.5-15.5) % Plt Count (150-450) k/uL Neutrophils # (1.3-7.7) k/uL ABG pCO2 50 H (35-45) mmHg ABG pO2 79 L (83-108) mmHg ABG HCO3 30 H (21-25) mmol/L ABG Total CO2 32 H (19-24) mmol/L Sodium (137-145) mmol/L Glucose (74-99) mg/dL POC Glucose (mg/dL) (75-99) mg/dL Calcium (8.4-10.2) mg/dL Total Protein (6.3-8.2) g/dL Albumin (3.5-5.0) g/dL Microbiology - Last 24 Hours (Table) 05/22/21 09:44 Fungal Culture - Preliminary Bronchial Washings - Right 05/24/21 17:23 Blood Culture - Preliminary Blood No Growth after 120 hours 05/24/21 17:23 Blood Culture - Preliminary Blood No Growth after 120 hours 05/23/21 09:13 Blood Culture - Final Blood No Growth after 144 hours 05/23/21 08:57 Blood Culture - Final Blood No Growth after 144 hours Assessment and Plan Plan: Assessment: #1. Acute hypoxic respiratory failure related to worsening and progression of pneumonia, and chest x-ray showing patchy consolidation involving the right midlung, right upper lobe and right lower lobe in addition to extensive consolidation of the left lung with possibly some cavitation. Patient is currently covered with meropenem and vancomycin, her antibiotics have been modified yesterday, initially covered with Zosyn, patient was doing well on Airvo on 05/21/2021, was clinically improving, but suffered acute respiratory arrest on 05/21/2021 and was intubated, patient was successfully weaned and extubated on 05/23/2021 however failed again and had to be reintubated later that evening on 05/23/2021. In view of multiple episodes of respiratory failure patient will be considered for tracheostomy and PEG tube placement for weaning. Patient is status post bronchoscopy with bronchoalveolar lavage on 05/23/2021, so far BAL cultures are all negative. Patient is status post tracheostomy and PEG tube placement on 05/29/2021, tolerating pressure support trials pressure- support of 10 and CPAP of 5 on 05/29/2021, and again today on 05/30/2021. Patient will be placed on 40% trach collar today #2. Altered mental status secondary to hypoglycemia. Patient had recovered, and she was back to baseline neurologically. Currently lightly sedated, patient is still intubated, but patient is following all commands #3. History of diabetes, and recent episode of diabetic ketoacidosis, recovered. Levemir insulin has been discontinued and patient is currently covered with sliding scale NovoLog, her last episode of hypoglycemia was on 05/19/2021 with a blood sugar of 45. No recurrence of hypoglycemia since #4. History of syncopal episodes related to hypoglycemia #5. History of migraine cephalgia #6. History of diabetic neuropathy #7. Chronic constipation #8. Chronic low back pain #9. Tongue and oral pharyngeal candidiasis, with ulcerations #10. Previous history of MRSA infection in the laceration of the scalp #11. Chronic anemia with interval drop in hemoglobin down to 6.1 without evidence of any active GI bleeding, status post transfusion with 1 unit of packed red blood cells Plan: Todays labs, and blood gases reviewed No need to repeat chest x-ray today, we'll do a follow-up chest x-ray tomorrow Clinically has remained stable, tolerating pressure support at 10 trials with FiO2 of 40% We'll switch the patient to 40% trach collar Continue same antibiotic coverage Physical therapy consultation, the patient in the chair, tolerating activity well Anticipate restarting tube feedings Follow-up labs, blood gases, chest x-ray in the morning I performed a history & physical examination of the patient and discussed their management with my nurse practitioner, Dania Negron. I reviewed the nurse practitioner's note and agree with the documented findings and plan of care. Lung sounds are positive for dim breath sounds throughout the lung abbott. The findings and the impression was discussed with the patient. I attest to the documentation by the nurse practitioner. Time with Patient: Greater than 30
--- NOTE | 2021-05-30 15:50 | P.PN ---
Subjective Progress Note Date: 05/29/21 Principal diagnosis: Pneumonia Interval history : The patient is a 36-year-old female who presented to the hospital with an episode of unresponsiveness and concern for aspiration pneumonia. The patient subsequently did have worsening of her respiratory status, requiring intubation x2.Currently on the vent. The patient is status post trach and PEG completed 05/29/2021 On today's evaluation, 05/29/2021, The patient remains to be afebrile, the patient remains to be intubated on the vent and FiO2 is stable at 40%, the patient is awake and in no distress, no significant purulent secretion through the ET or diarrhea has been reported by the nursing staff Objective - Vital Signs Vital signs: Vital Signs Temp 97.5 F L 05/29/21 12:00 Pulse 88 05/29/21 13:00 Resp 18 05/29/21 13:00 BP 90/64 05/29/21 13:00 Pulse Ox 93 L 05/29/21 13:00 Intake & Output 05/28/21 05/29/21 05/29/21 18:59 06:59 18:59 Intake Total 533.008 460 100 Output Total 860 1905 435 Balance -326.992 -1445 -335 Intake: IV 340 360 100 Normal Saline 0.9 @ KVO 240 260 100 Piperacillin-Tazobactam 3 100 100 .375 gm In Sodium Chloride 0.9% 100 ml @ 25 mls/hr IVPB Q8HR [facility] Rx# :[id number] Intake, IV Titration 73.008 100 Amount propofoL 1,000 mg In 73.008 100 Empty Bag 1 bag @ Titrate IV .Q0M [facility] Rx#: [id number] Other 120 Output: Urine 860 1405 430 Stool 500 Estimated Blood Loss 5 Other: Voiding Method Indwelling Catheter Indwelling Catheter - Exam General description is a middle-aged female intubated through the trach Respiratory system:Unlabored breathing, decreased intensity of breath sounds. No wheeze. Heart S1, S2.Regular rate and rhythm. Abdomen soft, no tenderness Extremities: No edema feet - Labs CBC & Chem 7: 05/30/21 04:06 05/30/21 04:06 Labs: Abnormal Lab Results - Last 24 Hours (Table) 05/28/21 05/28/21 05/28/21 Range/Units 15:50 20:41 23:59 RBC (3.80-5.40) m/uL Hgb (11.4-16.0) gm/dL Hct (34.0-46.0) % MCHC (31.0-37.0) g/dL RDW (11.5-15.5) % ABG pH (7.35-7.45) ABG pO2 (83-108) mmHg ABG HCO3 (21-25) mmol/L ABG Total CO2 (19-24) mmol/L Sodium (137-145) mmol/L Glucose (74-99) mg/dL POC Glucose (mg/dL) 116 H 135 H 156 H (75-99) mg/dL Calcium (8.4-10.2) mg/dL Total Protein (6.3-8.2) g/dL Albumin (3.5-5.0) g/dL 05/29/21 05/29/21 05/29/21 Range/Units 04:04 04:23 04:23 RBC 3.48 L (3.80-5.40) m/uL Hgb 9.4 L (11.4-16.0) gm/dL Hct 30.8 L (34.0-46.0) % MCHC 30.5 L (31.0-37.0) g/dL RDW 16.2 H (11.5-15.5) % ABG pH (7.35-7.45) ABG pO2 (83-108) mmHg ABG HCO3 (21-25) mmol/L ABG Total CO2 (19-24) mmol/L Sodium 134 L (137-145) mmol/L Glucose 189 H (74-99) mg/dL POC Glucose (mg/dL) 187 H (75-99) mg/dL Calcium 7.4 L (8.4-10.2) mg/dL Total Protein 5.4 L (6.3-8.2) g/dL Albumin 1.8 L (3.5-5.0) g/dL 05/29/21 05/29/21 05/29/21 Range/Units 05:18 08:57 11:47 RBC (3.80-5.40) m/uL Hgb (11.4-16.0) gm/dL Hct (34.0-46.0) % MCHC (31.0-37.0) g/dL RDW (11.5-15.5) % ABG pH 7.50 H (7.35-7.45) ABG pO2 79 L (83-108) mmHg ABG HCO3 32 H (21-25) mmol/L ABG Total CO2 33 H (19-24) mmol/L Sodium (137-145) mmol/L Glucose (74-99) mg/dL POC Glucose (mg/dL) 162 H 123 H (75-99) mg/dL Calcium (8.4-10.2) mg/dL Total Protein (6.3-8.2) g/dL Albumin (3.5-5.0) g/dL Microbiology - Last 24 Hours (Table) 05/23/21 09:13 Blood Culture - Final Blood No Growth after 144 hours 05/23/21 08:57 Blood Culture - Final Blood No Growth after 144 hours 05/24/21 17:23 Blood Culture - Preliminary Blood No Growth after 96 hours 05/24/21 17:23 Blood Culture - Preliminary Blood No Growth after 96 hours Assessment and Plan (1) Pneumonia Current Visit: Yes Status: Acute Code(s): J18.9 - PNEUMONIA, UNSPECIFIED ORGANISM SNOMED Code(s): 962950843 Plan: 1. Patient with acute respiratory failure, likely multifactorial, with concern for possible component of aspiration pneumonia. The patient's bronch culture has been negative for any resistant pathogen , The patient white count is normal and the patient is currently covered with the Zosyn and monitor clinical course closely mother at the bedside questions answered Time with Patient: Less than 30
--- NOTE | 2021-05-30 15:51 | P.PN ---
Subjective Progress Note Date: 05/30/21 Principal diagnosis: Pneumonia Interval history : The patient is a 36-year-old female who presented to the hospital with an episode of unresponsiveness and concern for aspiration pneumonia. The patient subsequently did have worsening of her respiratory status, requiring intubation x2.Currently on the vent. The patient is status post trach and PEG completed 05/29/2021 On today's evaluation, 05/30/2021, The patient continues to be afebrile, the patient has been weaned off the vent is currently on the trach collar FiO2 is at 50%, the patient is awake and in no distress, no significant purulent secretion through the ET or diarrhea has been reported by the nursing staff Objective - Vital Signs Vital signs: Vital Signs Temp 97.9 F 05/30/21 04:00 Pulse 103 H 05/30/21 07:00 Resp 17 05/30/21 07:00 BP 106/67 05/30/21 07:00 Pulse Ox 94 L 05/30/21 15:23 Intake & Output 05/29/21 05/30/21 05/30/21 18:59 06:59 18:59 Intake Total 420 340 20 Output Total 870 610 50 Balance -450 -270 -30 Weight 52 kg Intake: IV 300 340 20 Normal Saline 0.9 @ KVO 200 240 20 Piperacillin-Tazobactam 3 100 100 .375 gm In Sodium Chloride 0.9% 100 ml @ 25 mls/hr IVPB Q8HR [facility] Rx# :[id number] Other 120 Output: Urine 665 510 50 Stool 200 Urine/Stool Mix 100 Estimated Blood Loss 5 Other: Voiding Method Indwelling Catheter Indwelling Catheter # Voids 1 - Exam General description is a middle-aged female up in the chair in no distress Respiratory system:Unlabored breathing, decreased intensity of breath sounds. No wheeze. Heart S1, S2.Regular rate and rhythm. Abdomen soft, no tenderness Extremities: No edema feet - Labs CBC & Chem 7: 05/30/21 04:06 05/30/21 04:06 Labs: Abnormal Lab Results - Last 24 Hours (Table) 05/29/21 05/29/21 05/29/21 Range/Units 16:38 20:22 23:59 WBC (3.8-10.6) k/uL RBC (3.80-5.40) m/uL Hgb (11.4-16.0) gm/dL Hct (34.0-46.0) % MCHC (31.0-37.0) g/dL RDW (11.5-15.5) % Plt Count (150-450) k/uL Neutrophils # (1.3-7.7) k/uL ABG pCO2 (35-45) mmHg ABG pO2 (83-108) mmHg ABG HCO3 (21-25) mmol/L ABG Total CO2 (19-24) mmol/L Sodium (137-145) mmol/L Glucose (74-99) mg/dL POC Glucose (mg/dL) 128 H 122 H 106 H (75-99) mg/dL Calcium (8.4-10.2) mg/dL Total Protein (6.3-8.2) g/dL Albumin (3.5-5.0) g/dL 05/30/21 05/30/21 05/30/21 Range/Units 04:01 04:06 04:06 WBC 11.3 H (3.8-10.6) k/uL RBC 3.58 L (3.80-5.40) m/uL Hgb 9.6 L (11.4-16.0) gm/dL Hct 31.8 L (34.0-46.0) % MCHC 30.3 L (31.0-37.0) g/dL RDW 15.9 H (11.5-15.5) % Plt Count 474 H (150-450) k/uL Neutrophils # 9.3 H (1.3-7.7) k/uL ABG pCO2 (35-45) mmHg ABG pO2 (83-108) mmHg ABG HCO3 (21-25) mmol/L ABG Total CO2 (19-24) mmol/L Sodium 135 L (137-145) mmol/L Glucose 106 H (74-99) mg/dL POC Glucose (mg/dL) 105 H (75-99) mg/dL Calcium 7.2 L (8.4-10.2) mg/dL Total Protein 5.6 L (6.3-8.2) g/dL Albumin 1.9 L (3.5-5.0) g/dL 05/30/21 Range/Units 06:00 WBC (3.8-10.6) k/uL RBC (3.80-5.40) m/uL Hgb (11.4-16.0) gm/dL Hct (34.0-46.0) % MCHC (31.0-37.0) g/dL RDW (11.5-15.5) % Plt Count (150-450) k/uL Neutrophils # (1.3-7.7) k/uL ABG pCO2 50 H (35-45) mmHg ABG pO2 79 L (83-108) mmHg ABG HCO3 30 H (21-25) mmol/L ABG Total CO2 32 H (19-24) mmol/L Sodium (137-145) mmol/L Glucose (74-99) mg/dL POC Glucose (mg/dL) (75-99) mg/dL Calcium (8.4-10.2) mg/dL Total Protein (6.3-8.2) g/dL Albumin (3.5-5.0) g/dL Microbiology - Last 24 Hours (Table) 05/22/21 09:44 Fungal Culture - Preliminary Bronchial Washings - Right 05/24/21 17:23 Blood Culture - Preliminary Blood No Growth after 120 hours 05/24/21 17:23 Blood Culture - Preliminary Blood No Growth after 120 hours 05/23/21 09:13 Blood Culture - Final Blood No Growth after 144 hours 05/23/21 08:57 Blood Culture - Final Blood No Growth after 144 hours Assessment and Plan (1) Pneumonia Current Visit: Yes Status: Acute Code(s): J18.9 - PNEUMONIA, UNSPECIFIED ORGANISM SNOMED Code(s): 893607547 Plan: 1. Patient with acute respiratory failure, likely multifactorial, with concern for possible component of aspiration pneumonia. Patient failed to be extubated and is status post trach and PEG, The patient's bronch culture has been negative for any resistant pathogen , The patient white count is normal and the patient is currently covered with the Zosyn and monitor clinical course closely mother at the bedside questions answered Time with Patient: Less than 30
[2021-05-30 17:14] LABS: Glucose,Whole Blood 148 mg/dL (75-99)
--- NOTE | 2021-05-30 17:20 | P.PN ---
Subjective Progress Note Date: 05/30/21 CHIEF COMPLAINT: Hypoglycemia HISTORY OF PRESENT ILLNESS: The patient currently in the ICU with acute hypoxic respiratory failure secondary to pneumonia. Patient is status post tracheostomy and PEG tube placement. 2. Feedings were started today. She is currently on trach collar. And had been complaining of nausea. Zofran has been ordered. Afebrile. WBC 11.3 hemoglobin 9.6 PHYSICAL EXAM: VITAL SIGNS: Reviewed. GENERAL: no acute distress. HEENT: No sclera icterus. Extraocular movements grossly intact. Moist buccal mucosa. Head is atraumatic, normocephalic. Trachea site clean dry and intact ABDOMEN: Soft. Nondistended. Nontender. PEG tube site clean dry and intact ASSESSMENT: 1. Acute hypoxic respiratory failure secondary to pneumonia. Patient was extubated and required to be reintubated on 05/23/2021. Patient status post tracheostomy placement 2. Severe protein calorie malnutrition. Patient status post PEG tube placement PLAN: -Titrate tube feedings per dietitian -Continue ICU management and supportive care Physician Car Mechanic note has been reviewed by physician. Signing provider agrees with the documented findings, assessment, and plan of care. Objective - Vital Signs Vital signs: Vital Signs Temp 97.9 F 05/30/21 04:00 Pulse 103 H 05/30/21 07:00 Resp 17 05/30/21 07:00 BP 106/67 05/30/21 07:00 Pulse Ox 94 L 05/30/21 15:23 Intake & Output 05/29/21 05/30/21 05/30/21 18:59 06:59 18:59 Intake Total 420 340 20 Output Total 870 610 50 Balance -450 -270 -30 Weight 52 kg Intake: IV 300 340 20 Normal Saline 0.9 @ KVO 200 240 20 Piperacillin-Tazobactam 3 100 100 .375 gm In Sodium Chloride 0.9% 100 ml @ 25 mls/hr IVPB Q8HR [facility] Rx# :[id number] Other 120 Output: Urine 665 510 50 Stool 200 Urine/Stool Mix 100 Estimated Blood Loss 5 Other: Voiding Method Indwelling Catheter Indwelling Catheter # Voids 1 - Labs CBC & Chem 7: 05/30/21 04:06 05/30/21 04:06 Labs: Abnormal Lab Results - Last 24 Hours (Table) 05/29/21 05/29/21 05/30/21 Range/Units 20:22 23:59 04:01 WBC (3.8-10.6) k/uL RBC (3.80-5.40) m/uL Hgb (11.4-16.0) gm/dL Hct (34.0-46.0) % MCHC (31.0-37.0) g/dL RDW (11.5-15.5) % Plt Count (150-450) k/uL Neutrophils # (1.3-7.7) k/uL ABG pCO2 (35-45) mmHg ABG pO2 (83-108) mmHg ABG HCO3 (21-25) mmol/L ABG Total CO2 (19-24) mmol/L Sodium (137-145) mmol/L Glucose (74-99) mg/dL POC Glucose (mg/dL) 122 H 106 H 105 H (75-99) mg/dL Calcium (8.4-10.2) mg/dL Total Protein (6.3-8.2) g/dL Albumin (3.5-5.0) g/dL 05/30/21 05/30/21 05/30/21 Range/Units 04:06 04:06 06:00 WBC 11.3 H (3.8-10.6) k/uL RBC 3.58 L (3.80-5.40) m/uL Hgb 9.6 L (11.4-16.0) gm/dL Hct 31.8 L (34.0-46.0) % MCHC 30.3 L (31.0-37.0) g/dL RDW 15.9 H (11.5-15.5) % Plt Count 474 H (150-450) k/uL Neutrophils # 9.3 H (1.3-7.7) k/uL ABG pCO2 50 H (35-45) mmHg ABG pO2 79 L (83-108) mmHg ABG HCO3 30 H (21-25) mmol/L ABG Total CO2 32 H (19-24) mmol/L Sodium 135 L (137-145) mmol/L Glucose 106 H (74-99) mg/dL POC Glucose (mg/dL) (75-99) mg/dL Calcium 7.2 L (8.4-10.2) mg/dL Total Protein 5.6 L (6.3-8.2) g/dL Albumin 1.9 L (3.5-5.0) g/dL 05/30/21 Range/Units 17:13 WBC (3.8-10.6) k/uL RBC (3.80-5.40) m/uL Hgb (11.4-16.0) gm/dL Hct (34.0-46.0) % MCHC (31.0-37.0) g/dL RDW (11.5-15.5) % Plt Count (150-450) k/uL Neutrophils # (1.3-7.7) k/uL ABG pCO2 (35-45) mmHg ABG pO2 (83-108) mmHg ABG HCO3 (21-25) mmol/L ABG Total CO2 (19-24) mmol/L Sodium (137-145) mmol/L Glucose (74-99) mg/dL POC Glucose (mg/dL) 148 H (75-99) mg/dL Calcium (8.4-10.2) mg/dL Total Protein (6.3-8.2) g/dL Albumin (3.5-5.0) g/dL Microbiology - Last 24 Hours (Table) 05/22/21 09:44 Fungal Culture - Preliminary Bronchial Washings - Right 05/24/21 17:23 Blood Culture - Preliminary Blood No Growth after 120 hours 05/24/21 17:23 Blood Culture - Preliminary Blood No Growth after 120 hours
[2021-05-30 20:06] LABS: Glucose,Whole Blood 160 mg/dL (75-99)
[2021-05-30] MEDS: INSULIN DETEMIR (LEVEMIR) 100 UNIT/ML SYR SQ SCH (20:48)
[2021-05-30] MEDS: MONTELUKAST 10 MG TAB PO SCH (21:29)
[2021-05-30] MEDS: AMITRIPTYLINE HCL 10 MG TAB PO SCH (21:29)
[2021-05-31 00:15] LABS: Glucose,Whole Blood 177 mg/dL (75-99)
[2021-05-31] MEDS: INSULIN ASPART (NovoLOG) 100 UNIT/ML VIAL SQ SCH ×7 (00:32→23:23)
--- NOTE | 2021-05-31 00:32 | P.PN ---
Subjective Progress Note Date: 05/30/21 This is a 36-year-old female who was recently admitted with changes in mental status along with significant hypoglycemia and is being closely monitored. Patient continues on 100% BiPAP with continued dyspnea and pulmonary following closely. Patient also found to have bilateral pneumonia possible aspiration and also a fungal urinary tract infection. Patient continues in the ICU for close monitoring and infectious disease is also following. Patient continues on IV antibiotics in the form of meropenem along with fluconazole and vancomycin and will continue. Multiple family members at the bedside. Recommend repeat chest x-ray along with labs in the morning. White blood Count elevated at 19.1. Potassium is 3.4 and magnesium 1.6 and will replace per protocol. 05/21/2021 She is seen in follow-up continues to be in the ICU being closely monitored. Patient was maintained on BiPAP and attempting airvo to allow for oral intake. Only at the bedside with multiple questions and concerns answered to the best of our ability. Patient's mentation is improved and answering questions and responding to commands appropriately. Chest x-ray today shows bilateral diffuse airspace disease with small effusion, stable with no pneumothorax noted. Infectious disease following an patient is continued on IV fluconazole along with meropenem. Blood cultures remain negative. Blood count is mildly elevated at 20.2. Patient is afebrile. Recommend repeat labs and chest x-ray in the a.m. She denies any chest pains or palpitations at this time. Patient tolerating oral intake and recommend strict aspiration precautions of head of the bed elevated 30-45 at all times and supervision with meals. 05/22/2021 Patient is seen in follow up and being closely monitored in the ICU with multiple medical consultations following. Patient was an A team this morning for acute respiratory arrest that was witnessed by nursing staff at the bedside and was changing the patient after a bowel movement and became apneic and code blue was initiated. Patient did not lose pulse but was intubated and placed on sedation. Chest xray showed moderately severe pulmonary edema without change compared to yesterday. Patient was given a dose of lasix. Patient is on some pressor support as well. Pulmonary following and patient underwent bronchoscopy with fluid analysis sent and pending. Patient is continued on IV merrem and vancomycin with ID following closely. Await finalized cultures. WBC elevated as well at 26.8. 05/23/2021 Patient is seen and evaluated this morning and continues in critical condition in the ICU. Mother at the bedside and patient was extubated this morning. Patient is currently resting on 2L of02 via NC with oxygen saturation above 90%. Patient is extremely lethargic but arousable. Chest xray shows persistent but improving airspace disease, right greater than left. Mother is at the bedside. May Patient is seen and evaluated today in follow-up continues to be in the ICU being closely monitored. Patient continues on mechanical vent with sedation and attempts at weaning continue. Pulmonary and ID following closely. Patient continues with FI02 of 60%. Patient also continues on IV fluconazole and Zosyn and will continue. Chest xray today shows bilateral multifocal and confluent opacities redemonstrated consistent with covid 19 infection and or ARDS is redemonstrated with no significant change from yesterday. 05/27/2021 Patient is seen and evaluated this morning and continues on mechanical ventilation and lightly sedated on propofol although patient is awake and following commands although fatigues easily. General surgery consulted for PEG and trach placement for pulmonary [facility] recommendations. Infectious disease following an patient is maintained on fluconazole along with IV Zosyn and will continue. Patient continues with multiple episodes of loose stool with fecal management system and C. diff testing is ordered. Potassium mildly low at 3.4 and will replace per protocol. Magnesium is 2.2 today. Chest x-ray today shows patchy bilateral lung infiltrates that are stable. 05/28/2021 Patient is seen in follow-up in the ICU continues to be closely monitored with multiple medical consultations following. Plan for today was possible peg and trach placement although surgery extremely busy and will likely occur tomorrow. Patient continues on IV abx with ID following closely. Patient continues on mechanical vent with an FI02 of 50%. Minimally sedated. 05/29/2021 Patient is seen this morning status post PEG tube and tracheostomy placement and continues on mechanical vent with an FiO2 of 50% and PEEP is 5. Mother at the bedside with questions and concerns answered. PEG tube on hold currently for 24 hours and awaiting clearance from surgery to start tube feedings. Chest x-ray today shows bilateral multifocal and confluent opacification greatest in the right lung are redemonstrated consistent with COVID-19 and/or arts with no significant change from previous day. Patient is awake and nodding yes and no appropriately. 05/30/2021 Patient is seen today currently sitting up in the chair and recently placed on trach collar as she is status post tracheostomy and PEG tube placement yesterday. Tube feedings were started on the PEG tube although patient became nauseated and currently on hold and will continue to monitor. Patient continues with loose stool and does have fecal management system that is intact. Recommen d to keep the rectal tubing as patient experiences more frequent episodes of loose stool with feedings. Trach collar is 50% FiO2. Patient continues on IV zosyn with ID following. Labs: WBC is 11.3, hemoglobin is 9.6, platelets are 474, sodium is 135, potassium 4.3, BUN 8, creatinine 0.59, calcium 7.2 Review of systems: unable to assess clearly as patient is status post trach collar placement and dry heaving with nausea. All medications have been reviewed Active Medications Acetaminophen (Acetaminophen Tab 325 Mg Tab) 650 mg PO Q6HR PRN PRN Reason: Fever and/ or Mild Pain Last Admin: 05/23/21 04:35 Dose: 650 mg Documented by: Amitriptyline HCl (Amitriptyline Hcl 10 Mg Tab) 10 mg PO HS [facility] Last Admin: 05/29/21 21:24 Dose: 10 mg Documented by: Chlorhexidine Gluconate (Chlorhexidine Gluconate 15 Ml Cup) 15 ml MUCOUS MEM BID [facility] Last Admin: 05/30/21 09:34 Dose: 15 ml Documented by: Cholecalciferol (Cholecalciferol 25 Mcg (1000 Iu) Tablet) 50 mcg PO DAILY [facility] Last Admin: 05/30/21 09:34 Dose: 50 mcg Documented by: Escitalopram Oxalate (Escitalopram 20 Mg Tab) 20 mg PO DAILY [facility] Last Admin: 05/30/21 09:34 Dose: 20 mg Documented by: Folic Acid (Folic Acid 1 Mg Tab) 1 mg PO DAILY@1200 [facility] Last Admin: 05/30/21 09:34 Dose: 1 mg Documented by: Hydromorphone HCl (Hydromorphone 0.5 Mg/0.5 Ml Syringe) 0.5 mg IVP Q3HR PRN PRN Reason: Severe Pain Last Admin: 05/30/21 06:49 Dose: 0.5 mg Documented by: Fluconazole/Sodium Chloride (100 mg/ IV Solution) 50 mls @ 50 mls/hr IVPB DAILY [facility] Last Admin: 05/30/21 09:30 Dose: 50 mls/hr Documented by: Propofol 1,000 mg/ IV Solution 100 mls @ 0 mls/hr IV .Q0M [facility]; Protocol Last Admin: 05/29/21 06:52 Dose: 30 mcg/kg/min, 9.36 mls/hr Documented by: Acetaminophen 1,000 mg/ IV (Solution) 100 mls @ 400 mls/hr IVPB Q6HR PRN PRN Reason: Fever Stop: 06/09/21 08:05 Piperacillin Sod/Tazobactam (Sod 3.375 gm/ Sodium Chloride) 100 mls @ 25 mls/hr IVPB Q8HR [facility] Last Admin: 05/30/21 09:27 Dose: 25 mls/hr Documented by: Insulin Aspart (Insulin Aspart (Novolog) 100 Unit/Ml Vial) 0 unit SQ Q4H [facility]; Protocol Last Admin: 05/30/21 09:21 Dose: Not Given Documented by: Insulin Detemir (Insulin Detemir (Levemir) 100 Unit/Ml Syr) 20 unit SQ [facility] Last Admin: 05/29/21 20:27 Dose: Not Given Documented by: Loperamide HCl (Loperamide 2 Mg Cap) 2 mg PO QID PRN PRN Reason: Diarrhea Last Admin: 05/21/21 17:48 Dose: 2 mg Documented by: Miscellaneous Information (Magnesium Replacement Protocol 1 Each Misc) 1 each MISCELLANE DAILY PRN; Protocol PRN Reason: Per Protocol Miscellaneous Information (Potassium Replacement Protocol 1 Each Misc) 1 each MISCELLANE DAILY PRN; Protocol PRN Reason: Per Protocol Montelukast Sodium (Montelukast 10 Mg Tab) 10 mg PO [facility] Last Admin: 05/29/21 21:25 Dose: 10 mg Documented by: Multivitamins (Multivitamins, Thera 1 Each Tab) 1 each PO DAILY@1200 [facility] Last Admin: 05/30/21 09:36 Dose: 1 each Documented by: Nystatin (Nystatin 100,000 Unit/Ml Susp 500,000 Unit/5 Ml Cup) 500,000 unit PO QID [facility] Last Admin: 05/30/21 09:34 Dose: 500,000 unit Documented by: Ondansetron HCl (Ondansetron 4 Mg/2 Ml Vial) 4 mg IVP Q6HR PRN PRN Reason: Nausea And Vomiting Pantoprazole Sodium (Pantoprazole 40 Mg/10 Ml Vial) 40 mg IVP DAILY [facility] Last Admin: 05/30/21 09:34 Dose: 40 mg Documented by: Pregabalin (Pregabalin 75 Mg Cap) 75 mg PO TID [facility] Last Admin: 05/30/21 09:35 Dose: 75 mg Documented by: Sumatriptan Succinate (Sumatriptan Succinate 50 Mg Tab) 100 mg PO DAILY PRN PRN Reason: Migraine Headache Thiamine HCl (Thiamine 100 Mg Tab) 100 mg PO BID-W/MEALS [facility] Last Admin: 05/30/21 06:49 Dose: 100 mg Documented by: Zinc Sulfate (Zinc Sulfate 220 Mg Cap) 220 mg PO DAILY [facility] Last Admin: 05/30/21 09:34 Dose: 220 mg Documented by: Physical Exam: Gen: This is a 36-year-old female who is intubated and sedated, thin built, cachectic. oxygen saturation is 96% on 50% FiO2 trach collar HEENT: Head is atraumatic, normocephalic. Pupils equal, round. Sclerae is anicteric. oral mucosa is dry and white patches noted on tongue, cracking and lesions noted on the lips NECK: Supple. No JVD. No lymphadenopathy. No thyromegaly. LUNGS: Breath sounds diminished with scattered rhonchi and crackles noted. No intercostal retractions. HEART: S1, S2 are muffled ABDOMEN: Soft. Bowel sounds are present. No masses. No tenderness. EXTREMITIES: No pedal edema. No calf tenderness. NEUROLOGICAL: Patient is awake, alert and oriented x3. Nodding yes and no to questions and commands . 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 Infectious disease and pulmonary following closely and patient remains on mechanical vent and weaning attempts ongoing. FI02 is down to 40% with a PEEP of 5 patient is awake and off sedation and attempting trach collar. Tube feedings resumed and patient having some nausea. Tube feed on hold for now. Mother at the bedside and her questions and concerns were answered to the best of our ability. Recommend repeat labs and follow-up chest x-ray in the morning. Recommend to keep the bed elevated 30-45 at all times and maintain aspiration precautions. Blood cultures remain negative. ID following and maintained on IV zosyn along with nystatin and fluconazole. Recommend to continue to monitor blood sugars closely. Patient will likely need ltac or ecf placement once stabilized as patient is extremely weak. Social work consulted. Objective - Vital Signs Vital signs: Vital Signs Temp 97.9 F 05/30/21 04:00 Pulse 103 H 05/30/21 07:00 Resp 17 05/30/21 07:00 BP 106/67 05/30/21 07:00 Pulse Ox 94 L 05/30/21 07:00 Intake & Output 05/29/21 05/30/21 05/30/21 18:59 06:59 18:59 Intake Total 420 340 20 Output Total 870 610 50 Balance -450 -270 -30 Intake: IV 300 340 20 Normal Saline 0.9 @ KVO 200 240 20 Piperacillin-Tazobactam 3 100 100 .375 gm In Sodium Chloride 0.9% 100 ml @ 25 mls/hr IVPB Q8HR [facility] Rx# :[id number] Other 120 Output: Urine 665 510 50 Stool 200 Urine/Stool Mix 100 Estimated Blood Loss 5 Other: Voiding Method Indwelling Catheter Indwelling Catheter # Voids 1 - Labs CBC & Chem 7: 05/30/21 04:06 05/30/21 04:06 Labs: Abnormal Lab Results - Last 24 Hours (Table) 05/29/21 05/29/21 05/29/21 Range/Units 08:57 11:47 16:38 WBC (3.8-10.6) k/uL RBC (3.80-5.40) m/uL Hgb (11.4-16.0) gm/dL Hct (34.0-46.0) % MCHC (31.0-37.0) g/dL RDW (11.5-15.5) % Plt Count (150-450) k/uL Neutrophils # (1.3-7.7) k/uL ABG pCO2 (35-45) mmHg ABG pO2 (83-108) mmHg ABG HCO3 (21-25) mmol/L ABG Total CO2 (19-24) mmol/L Sodium (137-145) mmol/L Glucose (74-99) mg/dL POC Glucose (mg/dL) 162 H 123 H 128 H (75-99) mg/dL Calcium (8.4-10.2) mg/dL Total Protein (6.3-8.2) g/dL Albumin (3.5-5.0) g/dL 05/29/21 05/29/21 05/30/21 Range/Units 20:22 23:59 04:01 WBC (3.8-10.6) k/uL RBC (3.80-5.40) m/uL Hgb (11.4-16.0) gm/dL Hct (34.0-46.0) % MCHC (31.0-37.0) g/dL RDW (11.5-15.5) % Plt Count (150-450) k/uL Neutrophils # (1.3-7.7) k/uL ABG pCO2 (35-45) mmHg ABG pO2 (83-108) mmHg ABG HCO3 (21-25) mmol/L ABG Total CO2 (19-24) mmol/L Sodium (137-145) mmol/L Glucose (74-99) mg/dL POC Glucose (mg/dL) 122 H 106 H 105 H (75-99) mg/dL Calcium (8.4-10.2) mg/dL Total Protein (6.3-8.2) g/dL Albumin (3.5-5.0) g/dL 05/30/21 05/30/21 05/30/21 Range/Units 04:06 04:06 06:00 WBC 11.3 H (3.8-10.6) k/uL RBC 3.58 L (3.80-5.40) m/uL Hgb 9.6 L (11.4-16.0) gm/dL Hct 31.8 L (34.0-46.0) % MCHC 30.3 L (31.0-37.0) g/dL RDW 15.9 H (11.5-15.5) % Plt Count 474 H (150-450) k/uL Neutrophils # 9.3 H (1.3-7.7) k/uL ABG pCO2 50 H (35-45) mmHg ABG pO2 79 L (83-108) mmHg ABG HCO3 30 H (21-25) mmol/L ABG Total CO2 32 H (19-24) mmol/L Sodium 135 L (137-145) mmol/L Glucose 106 H (74-99) mg/dL POC Glucose (mg/dL) (75-99) mg/dL Calcium 7.2 L (8.4-10.2) mg/dL Total Protein 5.6 L (6.3-8.2) g/dL Albumin 1.9 L (3.5-5.0) g/dL Microbiology - Last 24 Hours (Table) 05/24/21 17:23 Blood Culture - Preliminary Blood No Growth after 120 hours 05/24/21 17:23 Blood Culture - Preliminary Blood No Growth after 120 hours 05/23/21 09:13 Blood Culture - Final Blood No Growth after 144 hours 05/23/21 08:57 Blood Culture - Final Blood No Growth after 144 hours
[2021-05-31] MEDS: PIPERACILLIN-TAZOBACTAM 3.375 GM in SODIUM CHLORIDE 0.9% 100 ML IVPB SCH ×4 (00:49→23:25)
[2021-05-31] MEDS: HYDROmorphone 0.5 MG/0.5 ML SYRINGE IVP PRN ×3 (03:07→21:33)
[2021-05-31 04:28] LABS: Glucose,Whole Blood 180 mg/dL (75-99)
[2021-05-31 04:35] LABS: Basophils % (A) 0 %; Eosinophils # (A) 0.1 k/uL (0-0.7); Eosinophils % (A) 0 %; HCT 32.1 % (34.0-46.0); HGB 9.2 gm/dL (11.4-16.0); Hypochromasia Marked; Lymphocytes # (A) 1.3 k/uL (1.0-4.8); Lymphocytes % (A) 8 %; MCH 25.6 pg (25.0-35.0); MCHC 28.5 g/dL (31.0-37.0); MCV 89.8 fL (80.0-100.0); Mean Platelet Volume 7.9; Monocytes # (A) 0.7 k/uL (0-1.0); Monocytes % (A) 4 %; Neutrophils % (A) 86 %; Platelet Count 533 k/uL (150-450); Poikilocytosis Slight; RBC 3.57 m/uL (3.80-5.40); RDW 15.8 % (11.5-15.5); WBC 15.2 k/uL (3.8-10.6)
[2021-05-31 04:56] LABS: ALT 7 U/L (4-34); AST 18 U/L (14-36); African American GFR (CKD) >90 (>60 ml/min/1.73 sqM); Albumin 2.1 g/dL (3.5-5.0); Alkaline Phosphatase 92 U/L (38-126); Anion Gap 9 mmol/L; Blood Urea Nitrogen 8 mg/dL (7-17); Calcium 7.6 mg/dL (8.4-10.2); Carbon Dioxide 27 mmol/L (22-30); Chloride 101 mmol/L (98-107); Glucose 174 mg/dL (74-99); Non-African American GFR(CKD) >90 (>60 ml/min/1.73 sqM); Potassium 4.2 mmol/L (3.5-5.1); Sodium 137 mmol/L (137-145); Total Bilirubin 0.5 mg/dL (0.2-1.3); Total Protein 6.1 g/dL (6.3-8.2)
--- NOTE | 2021-05-31 06:57 | XR ---
EXAMINATION TYPE: XR chest 1V portable DATE OF EXAM: 05/31/2021 5:34 AM COMPARISON:Chest radiograph from one day prior. TECHNIQUE: Frontal view of the chest. CLINICAL INDICATION:Female, 36 years old with history of pneumonia; FINDINGS: Lungs/Pleura: Similar multifocal airspace opacities right greater than left with decreased aeration o n today's exam most pronounced on the right. No evidence of pneumothorax or pleural effusion. Pulmonary vascularity: Unremarkable. Heart/mediastinum: Cardiomediastinal silhouette is unremarkable. Musculoskeletal: No acute osseous pathology. Lines/Tubes: Interval placement of tracheostomy cannula. Tracheostomy cannula tip projecting over the trachea. Right-sided PICC line with distal tip at the cavoatrial junction. IMPRESSION: Slight interval worsening of multifocal airspace opacities right greater than left.
[2021-05-31] MEDS: POTASSIUM BICARBONATE/CIT AC 20 MEQ TABLET.EFF NG-TUBE SCH ×2 (07:09→07:12)
[2021-05-31 08:04] LABS: Glucose,Whole Blood 183 mg/dL (75-99)
[2021-05-31] MEDS: CHOLECALCIFEROL 25 MCG (1000 IU) TABLET PO SCH (09:24)
[2021-05-31] MEDS: ESCITALOPRAM 20 MG TAB PO SCH (09:25)
[2021-05-31] MEDS: THIAMINE 100 MG TAB PO SCH ×2 (09:25→18:02)
[2021-05-31] MEDS: PREGABALIN 75 MG CAP PO SCH ×3 (09:25→21:23)
[2021-05-31] MEDS: ZINC SULFATE 220 MG CAP PO SCH (09:25)
[2021-05-31] MEDS: CHLORHEXIDINE GLUCONATE 15 ML CUP MUCOUS MEM SCH ×2 (09:26→21:23)
[2021-05-31] MEDS: PANTOPRAZOLE 40 MG/10 ML VIAL IVP SCH (09:26)
[2021-05-31] MEDS: FLUCONAZOLE IN NACL,ISO-OSM 100 MG in SALINE 1 50ML.BAG IVPB SCH (09:26)
[2021-05-31] MEDS: NYSTATIN 100,000 UNIT/ML SUSP 500,000 UNIT/5 ML CUP PO SCH ×4 (09:26→21:23)
[2021-05-31] MEDS: ONDANSETRON 4 MG/2 ML VIAL IVP PRN ×3 (09:34→21:27)
[2021-05-31 12:11] LABS: Glucose,Whole Blood 207 mg/dL (75-99)
--- NOTE | 2021-05-31 12:47 | P.PN ---
Progress Note - Text Progress Note Date: 05/31/21 Patient is on trach collar.. She's had some trouble with nausea once her tube feed rate is increased to 20 mL per hour. On exam vital signs are stable. Abdomen soft. Status post tracheostomy and PEG tube placement for malnutrition can restrict failure. Patient is is improving slowly.
--- NOTE | 2021-05-31 14:21 | P.PN ---
Subjective Progress Note Date: 05/31/21 Principal diagnosis: Acute hypoxic respiratory failure secondary to pneumonia, possible aspiration pneumonia. On 05/30/2021 patient is seen in follow-up in the intensive care unit, she status post tracheostomy and PEG tube placement yesterday on 05/29/2021, she tolerated procedure very well, she is currently on pressure support of 10, FiO2 of 40%, CPAP 5, she tolerated it very well, this morning's blood gas has been reviewed, pO2 of 79, pCO2 of 50, and pH of 7.39. Chest x-ray yesterday showed bilateral multifocal and confluent opacities without significant change from the day earlier, no need for another chest x-ray today, we'll obtain follow-up chest x-ray for tomorrow. She is currently off the prevent, and sedation has been off since yesterday. She is on 0.9 normal saline at a rate of 20 ML per hour, she remains on a combination of antibiotics was Diflucan and Zosyn, all of her cultures including BAL cultures have remained negative, she has been stable overnight, she's been afebrile, no complaint of chest discomfort. No hemoptysis. Today's labs have been reviewed showing white blood cell count of 11.3, hemoglobin of 9.6, platelet count of 474, sodium is 135, the rest of electrolytes and renal profile are within normal limits, BUN is 8, creatinine 0.59. Patient is supposed to be restarted on tube feedings. She is awake and alert, in no acute distress, she's been hemodynamically stable, not requiring any vasopressor support, she is following all commands, seems to be in good spirits. She's had no acute events overnight. Reevaluated today on 05/31/2021, patient was placed on trach collar yesterday, she continues to tolerate trach collar quite well. She is on 50% FiO2. However this morning the patient is having significant symptoms of nausea and dry heaves, I recommended antiemetic therapy, I also recommended holding feeding, and emptying her stomach. Her PEG tube will be placed to suction. Chest x-ray continues to show significant bilateral infiltrates, right more so than left, and I'm still concerned about the possibility of this lady aspirating. Remains on antibiotics empirically. Patient seems to be tolerating trach collar quite well, mother is at bedside, patient is not requiring any pressors. WBC count today is 15.2 hemoglobin is 9.2 electrolytes are normal blood cultures and sputum cultures have been nondiagnostic. Even urine cultures were nondiagnostic. Objective - Vital Signs Vital signs: Vital Signs Temp 98.8 F 05/31/21 12:00 Pulse 108 H 05/31/21 13:00 Resp 17 05/31/21 13:00 BP 116/73 05/31/21 13:00 Pulse Ox 96 05/31/21 13:00 Intake & Output 05/30/21 05/31/21 05/31/21 18:59 06:59 18:59 Intake Total 562 460 90 Output Total 775 585 150 Balance -213 -125 -60 Weight 52 kg 51.4 kg Intake: IV 405 235 30 Fluconazole in NaCl,Iso- 100 Osm 100 mg In Saline 1 50ml.bag @ 50 mls/hr IVPB DAILY [facility] Rx#:[id number] Normal Saline 0.9 @ KVO 130 110 30 Piperacillin-Tazobactam 3 175 125 .375 gm In Sodium Chloride 0.9% 100 ml @ 25 mls/hr IVPB Q8HR [facility] Rx# :[id number] Tube Feeding 127 105 60 Other 30 120 Output: Urine 775 585 150 Other: Voiding Method Indwelling Catheter Indwelling Catheter Indwelling Catheter - Exam GENERAL EXAM: Revealed a 36-year-old female in no distress, she had trach collar in place.. HEAD: Normocephalic/atraumatic. Tracheostomy is intact. HEENT: PERRLA, EOMI, nonicteric, no neck masses, tracheostomy is intact. Moist mucous membranes. CHEST: No chest wall deformity. Symmetrical expansion. LUNGS: Symmetrical chest expansion, diminished breath sounds at the bases and rhonchi bilaterally noted especially on the right side. CVS: Regular rate and rhythm, normal S1 and S2, no gallops, no murmurs, no rubs ABDOMEN: Soft, nontender. No hepatosplenomegaly, normal bowel sounds, no guarding or rigidity. PEG tube is intact. EXTREMITIES: No clubbing, no edema, no cyanosis, 2+ pulses and upper and lower extremities. MUSCULOSKELETAL: No deformities noted limitation in range of motion. SKIN: No rashes CENTRAL NERVOUS SYSTEM: Alert and oriented 3 no gross focal deficits. - Labs CBC & Chem 7: 05/31/21 04:11 05/31/21 04:07 Labs: Abnormal Lab Results - Last 24 Hours (Table) 05/30/21 05/30/21 05/31/21 Range/Units 17:13 19:54 00:13 WBC (3.8-10.6) k/uL RBC (3.80-5.40) m/uL Hgb (11.4-16.0) gm/dL Hct (34.0-46.0) % MCHC (31.0-37.0) g/dL RDW (11.5-15.5) % Plt Count (150-450) k/uL Neutrophils # (1.3-7.7) k/uL Glucose (74-99) mg/dL POC Glucose (mg/dL) 148 H 160 H 177 H (75-99) mg/dL Calcium (8.4-10.2) mg/dL Total Protein (6.3-8.2) g/dL Albumin (3.5-5.0) g/dL 05/31/21 05/31/21 05/31/21 Range/Units 04:07 04:11 04:27 WBC 15.2 H (3.8-10.6) k/uL RBC 3.57 L (3.80-5.40) m/uL Hgb 9.2 L (11.4-16.0) gm/dL Hct 32.1 L (34.0-46.0) % MCHC 28.5 L (31.0-37.0) g/dL RDW 15.8 H (11.5-15.5) % Plt Count 533 H (150-450) k/uL Neutrophils # 13.0 H (1.3-7.7) k/uL Glucose 174 H (74-99) mg/dL POC Glucose (mg/dL) 180 H (75-99) mg/dL Calcium 7.6 L (8.4-10.2) mg/dL Total Protein 6.1 L (6.3-8.2) g/dL Albumin 2.1 L (3.5-5.0) g/dL 05/31/21 05/31/21 Range/Units 08:02 12:09 WBC (3.8-10.6) k/uL RBC (3.80-5.40) m/uL Hgb (11.4-16.0) gm/dL Hct (34.0-46.0) % MCHC (31.0-37.0) g/dL RDW (11.5-15.5) % Plt Count (150-450) k/uL Neutrophils # (1.3-7.7) k/uL Glucose (74-99) mg/dL POC Glucose (mg/dL) 183 H 207 H (75-99) mg/dL Calcium (8.4-10.2) mg/dL Total Protein (6.3-8.2) g/dL Albumin (3.5-5.0) g/dL Microbiology - Last 24 Hours (Table) 05/24/21 17:23 Blood Culture - Final Blood No Growth after 144 hours 05/24/21 17:23 Blood Culture - Final Blood No Growth after 144 hours 05/22/21 09:44 Fungal Culture - Preliminary Bronchial Washings - Right Assessment and Plan Assessment: #1. Acute hypoxic respiratory failure related to worsening and progression of pneumonia, strongly suspect aspiration pneumonia affecting both lungs. and chest x-ray showing patchy consolidation involving the right midlung, right upper lobe and right lower lobe in addition to extensive consolidation of the left lung with possibly some cavitation. Patient is currently covered with meropenem and vancomycin, her antibiotics have been modified , initially covered with Zosyn, patient was doing well on Airvo on 05/21/2021, was clinically improving, but suffered acute respiratory arrest on 05/21/2021 and was intubated, patient was successfully weaned and extubated on 05/23/2021 however failed again and had to be reintubated later that evening on 05/23/2021. In view of multiple episodes of respiratory failure patient will be considered for tracheostomy and PEG tube placement for weaning. Patient is status post bronchoscopy with b ronchoalveolar lavage on 05/23/2021, so far BAL cultures are all negative. Patient is status post tracheostomy and PEG tube placement on 05/29/2021, tolerating pressure support trials pressure-support of 10 and CPAP of 5 on 05/29/2021, has been tolerating trach collar since 05/30/2021, and she remains on trach collar with FiO2 of 50%. #2. Altered mental status secondary to hypoglycemia. Patient had recovered, and she was back to baseline neurologically. Currently lightly sedated, patient is still intubated, but patient is following all commands #3. History of diabetes, and recent episode of diabetic ketoacidosis, recovered. Levemir insulin has been discontinued and patient is currently covered with sliding scale NovoLog, her last episode of hypoglycemia was on 05/19/2021 with a blood sugar of 45. No recurrence of hypoglycemia since #4. History of syncopal episodes related to hypoglycemia #5. History of migraine cephalgia #6. History of diabetic neuropathy #7. Chronic constipation #8. Chronic low back pain #9. Tongue and oral pharyngeal candidiasis, with ulcerations #10. Previous history of MRSA infection in the laceration of the scalp #11. Chronic anemia with interval drop in hemoglobin down to 6.1 without evidence of any active GI bleeding, status post transfusion with 1 unit of packed red blood cells Recommendation: Continue to monitor the patient in the ICU. Continue trach collar. Hold enteral feeding since the patient is having intermittent episodes of nausea and vomiting Apply PEG tube to suction. Continue antibiotics as per infectious disease on the case. Physical therapy to evaluate. Patient may need to be transferred eventually to rehab. Continue to monitor labs and x-rays on a daily basis. Continue GI and DVT prophylaxis. We will continue to follow. Critical care time is over 30 minutes. Time with Patient: Greater than 30
--- NOTE | 2021-05-31 15:09 | P.PN ---
Subjective Progress Note Date: 05/31/21 This is a 36-year-old female who was recently admitted with changes in mental status along with significant hypoglycemia and is being closely monitored. Patient continues on 100% BiPAP with continued dyspnea and pulmonary following closely. Patient also found to have bilateral pneumonia possible aspiration and also a fungal urinary tract infection. Patient continues in the ICU for close monitoring and infectious disease is also following. Patient continues on IV antibiotics in the form of meropenem along with fluconazole and vancomycin and will continue. Multiple family members at the bedside. Recommend repeat chest x-ray along with labs in the morning. White blood Count elevated at 19.1. P otassium is 3.4 and magnesium 1.6 and will replace per protocol. 05/21/2021 She is seen in follow-up continues to be in the ICU being closely monitored. Patient was maintained on BiPAP and attempting airvo to allow for oral intake. Only at the bedside with multiple questions and concerns answered to the best of our ability. Patient's mentation is improved and answering questions and responding to commands appropriately. Chest x-ray today shows bilateral diffuse airspace disease with small effusion, stable with no pneumothorax noted. Infectious disease following an patient is continued on IV fluconazole along with meropenem. Blood cultures remain negative. Blood count is mildly elevated at 20.2. Patient is afebrile. Recommend repeat labs and chest x-ray in the a.m. She denies any chest pains or palpitations at this time. Patient tolerating oral intake and recommend strict aspiration precautions of head of the bed elevated 30-45 at all times and supervision with meals. 05/22/2021 Patient is seen in follow up and being closely monitored in the ICU with multiple medical consultations following. Patient was an A team this morning for acute respiratory arrest that was witnessed by nursing staff at the bedside and was changing the patient after a bowel movement and became apneic and code blue was initiated. Patient did not lose pulse but was intubated and placed on sed ation. Chest xray showed moderately severe pulmonary edema without change compared to yesterday. Patient was given a dose of lasix. Patient is on some pressor support as well. Pulmonary following and patient underwent bronchoscopy with fluid analysis sent and pending. Patient is continued on IV merrem and vancomycin with ID following closely. Await finalized cultures. WBC elevated as well at 26.8. 05/23/2021 Patient is seen and evaluated this morning and continues in critical condition in the ICU. Mother at the bedside and patient was extubated this morning. Patient is currently resting on 2L of02 via NC with oxygen saturation above 90%. Patient is extremely lethargic but arousable. Chest xray shows persistent but improving airspace disease, right greater than left. Mother is at the bedside. May Patient is seen and evaluated today in follow-up continues to be in the ICU being closely monitored. Patient continues on mechanical vent with sedation and attempts at weaning continue. Pulmonary and ID following closely. Patient continues with FI02 of 60%. Patient also continues on IV fluconazole and Zosyn and will continue. Chest xray today shows bilateral multifocal and confluent opacities redemonstrated consistent with covid 19 infection and or ARDS is redemonstrated with no significant change from yesterday. 05/27/2021 Patient is seen and evaluated this morning and continues on mechanical ventilation and lightly sedated on propofol although patient is awake and following commands although fatigues easily. General surgery consulted for PEG and trach placement for pulmonary infant room teacher recommendations. Infectious disease following an patient is maintained on fluconazole along with IV Zosyn and will continue. Patient continues with multiple episodes of loose stool with fecal management system and C. diff testing is ordered. Potassium mildly low at 3.4 and will replace per protocol. Magnesium is 2.2 today. Chest x-ray today shows patchy bilateral lung infiltrates that are stable. 05/28/2021 Patient is seen in follow-up in the ICU continues to be closely monitored with multiple medical consultations following. Plan for today was possible peg and trach placement although surgery extremely busy and will likely occur tomorrow. Patient continues on IV abx with ID following closely. Patient continues on mechanical vent with an FI02 of 50%. Minimally sedated. 05/29/2021 Patient is seen this morning status post PEG tube and tracheostomy placement and continues on mechanical vent with an FiO2 of 50% and PEEP is 5. Mother at the bedside with questions and concerns answered. PEG tube on hold currently for 24 hours and awaiting clearance from surgery to start tube feedings. Chest x-ray today shows bilateral multifocal and confluent opacification greatest in the right lung are redemonstrated consistent with COVID-19 and/or arts with no s ignificant change from previous day. Patient is awake and nodding yes and no appropriately. 05/30/2021 Patient is seen today currently sitting up in the chair and recently placed on trach collar as she is status post tracheostomy and PEG tube placement yesterday. Tube feedings were started on the PEG tube although patient became nauseated and currently on hold and will continue to monitor. Patient continues with loose stool and does have fecal management system that is intact. Recommend to keep the rectal tubing as patient experiences more frequent episodes of loose stool with feedings. Trach collar is 50% FiO2. Patient continues on IV zosyn with ID following. Labs: WBC is 11.3, hemoglobin is 9.6, platelets are 474, sodium is 135, potassium 4.3, BUN 8, creatinine 0.59, calcium 7.2 05/31/2020 Patient evaluated today in the ICU resting in bed. [place]rellana catheter and fecal management system in place. Oxygenation maintained on trach collar with Fi02 of 50% and oxygen saturation of 96%. Patient does present with congested cough. She is nauseas today and feels like she wants to throw up. Nurse reports minimal residual volumes with feedings. Tube feedings were placed on hold, and she will be placed to suction via PEG tube. Concerns for aspiration. She is getting IV zofran and IV protonix. Repeat chest xray today shows slight interval worsening of multifocal airspace opacities right greater than left. Labs today show WBC 15.2, hgb 9.2, platelet count 533, sodium 137, potassium 4.2, glucose in the 180s. Patient with low grade fever 99.3, heart rate 108, respirations 17, blood pressure 116/73, 96% on trach collar. All cultures negative. Continues on IV Zosyn and IV fluconazole. Review of systems: unable to assess clearly as patient is status post trach collar placement and dry heaving with nausea. Patient only was concerned with the nausea and dry heaving. All medications have been reviewed Physical Exam: Gen: This is a 36-year-old female who is intubated and sedated, thin built, cachectic. oxygen saturation is 96% on 50% FiO2 trach collar HEENT: Head is atraumatic, normocephalic. Pupils equal, round. Sclerae is anicteric. oral mucosa is dry and white patches noted on tongue, cracking and lesions noted on the lips NECK: Supple. No JVD. No lymphadenopathy. No thyromegaly. LUNGS: Breath sounds diminished with scattered rhonchi and crackles noted. No intercostal retractions. HEART: S1, S2 are muffled ABDOMEN: Soft. Bowel sounds are present. No masses. No tenderness. EXTREMITIES: No pedal edema. No calf tenderness. NEUROLOGICAL: Patient is awake, alert and oriented x3. Nodding yes and no to questions and commands . 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 Infectious disease and pulmonary following closely and patient remains on mechanical vent with trach collar at 50% fi02 and tolerating well. Tube feedings resumed and patient having some nausea. Tube feed on hold for now with PEG tube turned to suction. There is some concern for ongoing aspiration. Continues with IV zofran. Recommend repeat labs in the morning. Recommend to keep the bed elevated 30-45 at all times and maintain aspiration precautions. Blood cultures remain negative. ID following and maintained on IV zosyn along with nystatin and fluconazole. Recommend to continue to monitor blood sugars closely. Patient will likely need ltac or ecf placement once stabilized as patient is extremely weak. Social work consulted. Objective - Vital Signs Vital signs: Vital Signs Temp 99.3 F 05/31/21 09:00 Pulse 116 H 05/31/21 11:00 Resp 11 L 05/31/21 11:00 BP 129/75 05/31/21 11:00 Pulse Ox 92 L 05/31/21 11:00 Intake & Output 05/30/21 05/31/21 05/31/21 18:59 06:59 18:59 Intake Total 562 460 90 Output Total 775 585 150 Balance -213 -125 -60 Weight 52 kg 51.4 kg Intake: IV 405 235 30 Fluconazole in NaCl,Iso- 100 Osm 100 mg In Saline 1 50ml.bag @ 50 mls/hr IVPB DAILY [facility] Rx#:[id number] Normal Saline 0.9 @ KVO 130 110 30 Piperacillin-Tazobactam 3 175 125 .375 gm In Sodium Chloride 0.9% 100 ml @ 25 mls/hr IVPB Q8HR [facility] Rx# :[id number] Tube Feeding 127 105 60 Other 30 120 Output: Urine 775 585 150 Other: Voiding Method Indwelling Catheter Indwelling Catheter Indwelling Catheter - Labs CBC & Chem 7: 05/31/21 04:11 05/31/21 04:07 Labs: Abnormal Lab Results - Last 24 Hours (Table) 05/30/21 05/30/21 05/31/21 Range/Units 17:13 19:54 00:13 WBC (3.8-10.6) k/uL RBC (3.80-5.40) m/uL Hgb (11.4-16.0) gm/dL Hct (34.0-46.0) % MCHC (31.0-37.0) g/dL RDW (11.5-15.5) % Plt Count (150-450) k/uL Neutrophils # (1.3-7.7) k/uL Glucose (74-99) mg/dL POC Glucose (mg/dL) 148 H 160 H 177 H (75-99) mg/dL Calcium (8.4-10.2) mg/dL Total Protein (6.3-8.2) g/dL Albumin (3.5-5.0) g/dL 05/31/21 05/31/21 05/31/21 Range/Units 04:07 04:11 04:27 WBC 15.2 H (3.8-10.6) k/uL RBC 3.57 L (3.80-5.40) m/uL Hgb 9.2 L (11.4-16.0) gm/dL Hct 32.1 L (34.0-46.0) % MCHC 28.5 L (31.0-37.0) g/dL RDW 15.8 H (11.5-15.5) % Plt Count 533 H (150-450) k/uL Neutrophils # 13.0 H (1.3-7.7) k/uL Glucose 174 H (74-99) mg/dL POC Glucose (mg/dL) 180 H (75-99) mg/dL Calcium 7.6 L (8.4-10.2) mg/dL Total Protein 6.1 L (6.3-8.2) g/dL Albumin 2.1 L (3.5-5.0) g/dL 05/31/21 05/31/21 Range/Units 08:02 12:09 WBC (3.8-10.6) k/uL RBC (3.80-5.40) m/uL Hgb (11.4-16.0) gm/dL Hct (34.0-46.0) % MCHC (31.0-37.0) g/dL RDW (11.5-15.5) % Plt Count (150-450) k/uL Neutrophils # (1.3-7.7) k/uL Glucose (74-99) mg/dL POC Glucose (mg/dL) 183 H 207 H (75-99) mg/dL Calcium (8.4-10.2) mg/dL Total Protein (6.3-8.2) g/dL Albumin (3.5-5.0) g/dL Microbiology - Last 24 Hours (Table) 05/24/21 17:23 Blood Culture - Final Blood No Growth after 144 hours 05/24/21 17:23 Blood Culture - Final Blood No Growth after 144 hours 05/22/21 09:44 Fungal Culture - Preliminary Bronchial Washings - Right
[2021-05-31] MEDS: FOLIC ACID 1 MG TAB PO SCH (17:45)
[2021-05-31] MEDS: MULTIVITAMINS, THERA 1 EACH TAB PO SCH (17:45)
[2021-05-31 18:01] LABS: Glucose,Whole Blood 194 mg/dL (75-99)
[2021-05-31] MEDS: INSULIN DETEMIR (LEVEMIR) 100 UNIT/ML SYR SQ SCH (20:20)
[2021-05-31] MEDS: MONTELUKAST 10 MG TAB PO SCH (21:23)
[2021-05-31] MEDS: AMITRIPTYLINE HCL 10 MG TAB PO SCH (21:23)
[2021-05-31 21:38] LABS: Glucose,Whole Blood 164 mg/dL (75-99)
--- NOTE | 2021-05-31 22:02 | P.PN ---
Subjective Progress Note Date: 05/31/21 Principal diagnosis: Pneumonia Interval history : The patient is a 36-year-old female who presented to the hospital with an episode of unresponsiveness and concern for aspiration pneumonia. The patient subsequently did have worsening of her respiratory status, requiring intubation x2.Currently on the vent. The patient is status post trach and PEG completed 05/29/2021 On today's evaluation, 05/31/2021, The patient remains to be afebrile, the patient is breathing comfortably on the trach collar FiO2 is at 50%, the patient is awake and in no distress, patient denies any chest pain no nausea no vomiting tube feeds has been put on hold because of high residuals and no diarrhea Objective - Vital Signs Vital signs: Vital Signs Temp 98.2 F 05/31/21 16:00 Pulse 107 H 05/31/21 20:00 Resp 17 05/31/21 20:00 BP 128/78 05/31/21 20:00 Pulse Ox 94 L 05/31/21 20:00 Intake & Output 05/31/21 05/31/21 06/01/21 06:59 18:59 06:59 Intake Total 460 170 10 Output Total 585 490 40 Balance -125 -320 -30 Weight 51.4 kg Intake: IV 235 110 10 Normal Saline 0.9 @ KVO 110 110 10 Piperacillin-Tazobactam 3 125 .375 gm In Sodium Chloride 0.9% 100 ml @ 25 mls/hr IVPB Q8HR [facility] Rx# :[id number] Tube Feeding 105 60 Other 120 Output: Urine 585 490 40 Other: Voiding Method Indwelling Catheter Indwelling Catheter - Exam General description is a middle-aged female up in the chair in no distress Respiratory system:Unlabored breathing, decreased intensity of breath sounds. No wheeze. Heart S1, S2.Regular rate and rhythm. Abdomen soft, no tenderness Extremities: No edema feet - Labs CBC & Chem 7: 05/31/21 04:11 05/31/21 04:07 Labs: Abnormal Lab Results - Last 24 Hours (Table) 05/31/21 05/31/21 05/31/21 Range/Units 00:13 04:07 04:11 WBC 15.2 H (3.8-10.6) k/uL RBC 3.57 L (3.80-5.40) m/uL Hgb 9.2 L (11.4-16.0) gm/dL Hct 32.1 L (34.0-46.0) % MCHC 28.5 L (31.0-37.0) g/dL RDW 15.8 H (11.5-15.5) % Plt Count 533 H (150-450) k/uL Neutrophils # 13.0 H (1.3-7.7) k/uL Glucose 174 H (74-99) mg/dL POC Glucose (mg/dL) 177 H (75-99) mg/dL Calcium 7.6 L (8.4-10.2) mg/dL Total Protein 6.1 L (6.3-8.2) g/dL Albumin 2.1 L (3.5-5.0) g/dL 05/31/21 05/31/21 05/31/21 Range/Units 04:27 08:02 12:09 WBC (3.8-10.6) k/uL RBC (3.80-5.40) m/uL Hgb (11.4-16.0) gm/dL Hct (34.0-46.0) % MCHC (31.0-37.0) g/dL RDW (11.5-15.5) % Plt Count (150-450) k/uL Neutrophils # (1.3-7.7) k/uL Glucose (74-99) mg/dL POC Glucose (mg/dL) 180 H 183 H 207 H (75-99) mg/dL Calcium (8.4-10.2) mg/dL Total Protein (6.3-8.2) g/dL Albumin (3.5-5.0) g/dL 05/31/21 05/31/21 Range/Units 17:59 21:37 WBC (3.8-10.6) k/uL RBC (3.80-5.40) m/uL Hgb (11.4-16.0) gm/dL Hct (34.0-46.0) % MCHC (31.0-37.0) g/dL RDW (11.5-15.5) % Plt Count (150-450) k/uL Neutrophils # (1.3-7.7) k/uL Glucose (74-99) mg/dL POC Glucose (mg/dL) 194 H 164 H (75-99) mg/dL Calcium (8.4-10.2) mg/dL Total Protein (6.3-8.2) g/dL Albumin (3.5-5.0) g/dL Microbiology - Last 24 Hours (Table) 05/24/21 17:23 Blood Culture - Final Blood No Growth after 144 hours 05/24/21 17:23 Blood Culture - Final Blood No Growth after 144 hours Assessment and Plan (1) Pneumonia Current Visit: Yes Status: Acute Code(s): J18.9 - PNEUMONIA, UNSPECIFIED ORGANISM SNOMED Code(s): 352572720 Plan: 1. Patient with acute respiratory failure, likely multifactorial, with concern for possible component of aspiration pneumonia. Patient failed to be extubated and is status post trach and PEG, The patient's bronch culture has been negative for any resistant pathogen , The patient is currently covered with the Zosyn however the patient did have slight worsening of the white count which is up to 15,000 today, we will repeat the blood cultures CRP and pro calcitonin and adjust antibiotic further if needed Time with Patient: Less than 30
[2021-06-01 01:11] LABS: Glucose,Whole Blood 188 mg/dL (75-99)
[2021-06-01] MEDS: ONDANSETRON 4 MG/2 ML VIAL IVP PRN (05:16)
[2021-06-01] MEDS: INSULIN ASPART (NovoLOG) 100 UNIT/ML VIAL SQ SCH ×6 (05:16→20:42)
[2021-06-01 05:22] LABS: Glucose,Whole Blood 200 mg/dL (75-99)
[2021-06-01 06:02] LABS: Basophils # (A) 0.1 k/uL (0-0.2); Basophils % (A) 1 %; Eosinophils % (A) 0 %; HGB 9.8 gm/dL (11.4-16.0); Hypochromasia Marked; Lymphocytes % (A) 8 %; MCH 26.3 pg (25.0-35.0); MCHC 28.9 g/dL (31.0-37.0); MCV 91.1 fL (80.0-100.0); Mean Platelet Volume 7.8; Monocytes # (A) 0.5 k/uL (0-1.0); Monocytes % (A) 4 %; Neutrophils # (A) 11.6 k/uL (1.3-7.7); Neutrophils % (A) 87 %; Platelet Count 614 k/uL (150-450); Poikilocytosis Slight; RBC 3.73 m/uL (3.80-5.40); RDW 15.3 % (11.5-15.5); WBC 13.3 k/uL (3.8-10.6)
[2021-06-01 06:17] LABS: ALT 6 U/L (4-34); AST 14 U/L (14-36); African American GFR (CKD) >90 (>60 ml/min/1.73 sqM); Albumin 2.3 g/dL (3.5-5.0); Alkaline Phosphatase 94 U/L (38-126); Anion Gap 12 mmol/L; Blood Urea Nitrogen 7 mg/dL (7-17); Calcium 8.3 mg/dL (8.4-10.2); Carbon Dioxide 24 mmol/L (22-30); Chloride 103 mmol/L (98-107); Glucose 212 mg/dL (74-99); Non-African American GFR(CKD) >90 (>60 ml/min/1.73 sqM); Sodium 139 mmol/L (137-145); Total Bilirubin 0.6 mg/dL (0.2-1.3); Total Protein 6.5 g/dL (6.3-8.2)
[2021-06-01] MEDS: HYDROmorphone 0.5 MG/0.5 ML SYRINGE IVP PRN ×3 (08:18→17:08)
[2021-06-01 08:31] LABS: Glucose,Whole Blood 180 mg/dL (75-99)
[2021-06-01] MEDS: PIPERACILLIN-TAZOBACTAM 3.375 GM in SODIUM CHLORIDE 0.9% 100 ML IVPB SCH ×2 (08:38→15:59)
[2021-06-01] MEDS: FLUCONAZOLE IN NACL,ISO-OSM 100 MG in SALINE 1 50ML.BAG IVPB SCH (08:38)
[2021-06-01] MEDS: CHLORHEXIDINE GLUCONATE 15 ML CUP MUCOUS MEM SCH ×2 (08:38→21:58)
[2021-06-01] MEDS: NYSTATIN 100,000 UNIT/ML SUSP 500,000 UNIT/5 ML CUP PO SCH ×4 (08:38→21:57)
[2021-06-01] MEDS: PANTOPRAZOLE 40 MG/10 ML VIAL IVP SCH (08:39)
[2021-06-01] MEDS: ZINC SULFATE 220 MG CAP PO SCH (08:39)
[2021-06-01] MEDS: PREGABALIN 75 MG CAP PO SCH ×3 (08:39→21:58)
[2021-06-01] MEDS: ESCITALOPRAM 20 MG TAB PO SCH (08:39)
[2021-06-01] MEDS: THIAMINE 100 MG TAB PO SCH ×2 (08:39→17:08)
[2021-06-01] MEDS: CHOLECALCIFEROL 25 MCG (1000 IU) TABLET PO SCH (08:39)
[2021-06-01 11:26] LABS: Glucose,Whole Blood 176 mg/dL (75-99)
[2021-06-01] MEDS: FOLIC ACID 1 MG TAB PO SCH (11:35)
[2021-06-01] MEDS: MULTIVITAMINS, THERA 1 EACH TAB PO SCH (11:35)
[2021-06-01] MEDS: SODIUM CHLORIDE 0.9% 1,000 ML IV SCH (12:01)
--- NOTE | 2021-06-01 12:16 | P.PN ---
Progress Note - Text Progress Note Date: 06/01/21 Patient been stable. She is on trach mask. PEG site is clean. We'll continue supportive care.
--- NOTE | 2021-06-01 12:24 | XR ---
EXAMINATION TYPE: XR chest 1V portable DATE OF EXAM: 06/01/2021 COMPARISON: Chest x-ray 05/31/2021 HISTORY: Tracheostomy tube placement TECHNIQUE: Single frontal view of the chest is obtained. FINDINGS: Tracheostomy tube is overlying the tracheal air column. Right-sided PICC line shows the di stal tip the right atrium. There are overlying artifacts. No evident pneumothorax or pleural effusion . Gastrostomy tube suspected in left upper quadrant. Cardiac mediastinal silhouette is stable. Bilate ral airspace disease is again extensive IMPRESSION: Correlate for pneumonia. Tracheostomy tube is overlying appropriate position.
--- NOTE | 2021-06-01 14:42 | P.PN ---
Subjective Progress Note Date: 06/01/21 This is a 36-year-old female who was recently admitted with changes in mental status along with significant hypoglycemia and is being closely monitored. Patient continues on 100% BiPAP with continued dyspnea and pulmonary following closely. Patient also found to have bilateral pneumonia possible aspiration and also a fungal urinary tract infection. Patient continues in the ICU for close monitoring and infectious disease is also following. Patient continues on IV antibiotics in the form of meropenem along with fluconazole and vancomycin and will continue. Multiple family members at the bedside. Recommend repeat chest x-ray along with labs in the morning. White blood Count elevated at 19.1. P otassium is 3.4 and magnesium 1.6 and will replace per protocol. 05/21/2021 She is seen in follow-up continues to be in the ICU being closely monitored. Patient was maintained on BiPAP and attempting airvo to allow for oral intake. Only at the bedside with multiple questions and concerns answered to the best of our ability. Patient's mentation is improved and answering questions and responding to commands appropriately. Chest x-ray today shows bilateral diffuse airspace disease with small effusion, stable with no pneumothorax noted. Infectious disease following an patient is continued on IV fluconazole along with meropenem. Blood cultures remain negative. Blood count is mildly elevated at 20.2. Patient is afebrile. Recommend repeat labs and chest x-ray in the a.m. She denies any chest pains or palpitations at this time. Patient tolerating oral intake and recommend strict aspiration precautions of head of the bed elevated 30-45 at all times and supervision with meals. 05/22/2021 Patient is seen in follow up and being closely monitored in the ICU with multiple medical consultations following. Patient was an A team this morning for acute respiratory arrest that was witnessed by nursing staff at the bedside and was changing the patient after a bowel movement and became apneic and code blue was initiated. Patient did not lose pulse but was intubated and placed on sed ation. Chest xray showed moderately severe pulmonary edema without change compared to yesterday. Patient was given a dose of lasix. Patient is on some pressor support as well. Pulmonary following and patient underwent bronchoscopy with fluid analysis sent and pending. Patient is continued on IV merrem and vancomycin with ID following closely. Await finalized cultures. WBC elevated as well at 26.8. 05/23/2021 Patient is seen and evaluated this morning and continues in critical condition in the ICU. Mother at the bedside and patient was extubated this morning. Patient is currently resting on 2L of02 via NC with oxygen saturation above 90%. Patient is extremely lethargic but arousable. Chest xray shows persistent but improving airspace disease, right greater than left. Mother is at the bedside. May Patient is seen and evaluated today in follow-up continues to be in the ICU being closely monitored. Patient continues on mechanical vent with sedation and attempts at weaning continue. Pulmonary and ID following closely. Patient continues with FI02 of 60%. Patient also continues on IV fluconazole and Zosyn and will continue. Chest xray today shows bilateral multifocal and confluent opacities redemonstrated consistent with covid 19 infection and or ARDS is redemonstrated with no significant change from yesterday. 05/27/2021 Patient is seen and evaluated this morning and continues on mechanical ventilation and lightly sedated on propofol although patient is awake and following commands although fatigues easily. General surgery consulted for PEG and trach placement for pulmonary health promoter recommendations. Infectious disease following an patient is maintained on fluconazole along with IV Zosyn and will continue. Patient continues with multiple episodes of loose stool with fecal management system and C. diff testing is ordered. Potassium mildly low at 3.4 and will replace per protocol. Magnesium is 2.2 today. Chest x-ray today shows patchy bilateral lung infiltrates that are stable. 05/28/2021 Patient is seen in follow-up in the ICU continues to be closely monitored with multiple medical consultations following. Plan for today was possible peg and trach placement although surgery extremely busy and will likely occur tomorrow. Patient continues on IV abx with ID following closely. Patient continues on mechanical vent with an FI02 of 50%. Minimally sedated. 05/29/2021 Patient is seen this morning status post PEG tube and tracheostomy placement and continues on mechanical vent with an FiO2 of 50% and PEEP is 5. Mother at the bedside with questions and concerns answered. PEG tube on hold currently for 24 hours and awaiting clearance from surgery to start tube feedings. Chest x-ray today shows bilateral multifocal and confluent opacification greatest in the right lung are redemonstrated consistent with COVID-19 and/or arts with no s ignificant change from previous day. Patient is awake and nodding yes and no appropriately. 05/30/2021 Patient is seen today currently sitting up in the chair and recently placed on trach collar as she is status post tracheostomy and PEG tube placement yesterday. Tube feedings were started on the PEG tube although patient became nauseated and currently on hold and will continue to monitor. Patient continues with loose stool and does have fecal management system that is intact. Recommend to keep the rectal tubing as patient experiences more frequent episodes of loose stool with feedings. Trach collar is 50% FiO2. Patient continues on IV zosyn with ID following. Labs: WBC is 11.3, hemoglobin is 9.6, platelets are 474, sodium is 135, potassium 4.3, BUN 8, creatinine 0.59, calcium 7.2 05/31/2021 Patient evaluated today in the ICU resting in bed. [place]rellana catheter and fecal management system in place. Oxygenation maintained on trach collar with Fi02 of 50% and oxygen saturation of 96%. Patient does present with congested cough. She is nauseas today and feels like she wants to throw up. Nurse reports minimal residual volumes with feedings. Tube feedings were placed on hold, and she will be placed to suction via PEG tube. Concerns for aspiration. She is getting IV zofran and IV protonix. Repeat chest xray today shows slight interval worsening of multifocal airspace opacities right greater than left. Labs today show WBC 15.2, hgb 9.2, platelet count 533, sodium 137, potassium 4.2, glucose in the 180s. Patient with low grade fever 99.3, heart rate 108, respirations 17, blood pressure 116/73, 96% on trach collar. All cultures negative. Continues on IV Zosyn and IV fluconazole. 06/01/2021 Patient evaluated today in bed with HOB around 30. Per RN she was up in the chair yesterday. Indwelling catheter and Fecal management system in place. Patient is on trach colloar with FiO2 50% with oxygen saturation of 97%. Blood pressures are marginal at 98/76, respirations 14, heart rate 105, afebrile. Patient to feedings were placed on hold yesterday with PEG tube to suction. She still complains of ongoing nausea which is not improved. She is no longer dry heaving on my assessment. Patient is in a negative fluid balance. We will start patient's IV hydration with normal saline at 75 mL per hour. She continues on IV Zofran. She is also on IV Tylenol, IV fluconazole, IV Zosyn. Chest x-ray shows correlation for pneumonia. Blood fungal culture is currently pending. Review of systems: unable to assess clearly as patient is status post trach collar placement and having ongoing nausea. All medications have been reviewed Physical Exam: Gen: This is a 36-year-old female who is intubated and sedated, thin built, cachectic. oxygen saturation is 96% on 50% FiO2 trach collar HEENT: Head is atraumatic, normocephalic. Pupils equal, round. Sclerae is anicteric. oral mucosa is dry and white patches noted on tongue, cracking and lesions noted on the lips NECK: Supple. No JVD. No lymphadenopathy. No thyromegaly. LUNGS: Breath sounds diminished with scattered rhonchi and crackles noted which seem improved since yesterday since tube feedings were placed on hold. No intercostal retractions. HEART: S1, S2 are muffled ABDOMEN: Soft. Bowel sounds are present. No masses. No tenderness. EXTREMITIES: No pedal edema. No calf tenderness. NEUROLOGICAL: Patient is awake, alert and oriented x3. Nodding yes and no to questions and commands . Assessment: Acute bilateral pneumonia, right more than left with aspiration pneumonia with sepsis, present on admission Leukocytosis secondary to above acute respiratory difficulty and acute hypoxic respiratory failure requiring mechanical ventilation, status post extubation and reintubation Status post peg tube and tracheostomy placement, tube feedings currently on hold due to ongoing nausea. 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 Infectious disease and pulmonary following closely and patient remains on mechanical vent with trach collar at 50% fi02 and tolerating well. Tube feedings resumed and patient having some nausea. Tube feed on hold for now with PEG tube turned to suction. There is some concern for ongoing aspiration. Stomach containts show bile with some tube feeding. Continues with IV zofran. Recommend repeat labs in the morning. Recommend to keep the bed elevated 30-45 at all times and maintain aspiration precautions. Blood cultures remain negative. ID following and maintained on IV zosyn along with nystatin and fluconazole. Recommend to continue to monitor blood sugars closely. Patient will likely need ltac or ecf placement once stabilized as patient is extremely weak. Social work consulted. Objective - Vital Signs Vital signs: Vital Signs Temp 98.2 F 06/01/21 12:00 Pulse 104 H 06/01/21 13:00 Resp 15 06/01/21 13:00 BP 139/89 06/01/21 13:00 Pulse Ox 97 06/01/21 13:00 Intake & Output 05/31/21 06/01/21 06/01/21 18:59 06:59 18:59 Intake Total 170 190 145 Output Total 490 1240 270 Balance -320 -1050 -125 Weight 52.2 kg Intake: IV 110 190 85 Normal Saline 0.9 @ KVO 110 90 85 Piperacillin-Tazobactam 3 100 .375 gm In Sodium Chloride 0.9% 100 ml @ 25 mls/hr IVPB Q8HR REPLACED BY [facility] Rx# :[id number] Tube Feeding 60 Other 60 Output: Urine 490 1040 255 Stool 200 15 Other: Voiding Method Indwelling Catheter Indwelling Catheter - Labs CBC & Chem 7: 06/01/21 05:19 06/01/21 05:19 Labs: Abnormal Lab Results - Last 24 Hours (Table) 05/31/21 05/31/21 06/01/21 Range/Units 17:59 21:37 01:10 WBC (3.8-10.6) k/uL RBC (3.80-5.40) m/uL Hgb (11.4-16.0) gm/dL MCHC (31.0-37.0) g/dL Plt Count (150-450) k/uL Neutrophils # (1.3-7.7) k/uL Creatinine (0.52-1.04) mg/dL Glucose (74-99) mg/dL POC Glucose (mg/dL) 194 H 164 H 188 H (75-99) mg/dL Calcium (8.4-10.2) mg/dL C-Reactive Protein (<1.0) mg/dL Albumin (3.5-5.0) g/dL Procalcitonin (0.02-0.09) ng/mL 06/01/21 06/01/21 06/01/21 Range/Units 05:19 05:19 05:19 WBC 13.3 H (3.8-10.6) k/uL RBC 3.73 L (3.80-5.40) m/uL Hgb 9.8 L (11.4-16.0) gm/dL MCHC 28.9 L (31.0-37.0) g/dL Plt Count 614 H (150-450) k/uL Neutrophils # 11.6 H (1.3-7.7) k/uL Creatinine 0.51 L (0.52-1.04) mg/dL Glucose 212 H (74-99) mg/dL POC Glucose (mg/dL) (75-99) mg/dL Calcium 8.3 L (8.4-10.2) mg/dL C-Reactive Protein 7.0 H (<1.0) mg/dL Albumin 2.3 L (3.5-5.0) g/dL Procalcitonin 0.42 H (0.02-0.09) ng/mL 06/01/21 06/01/21 06/01/21 Range/Units 05:20 08:29 11:24 WBC (3.8-10.6) k/uL RBC (3.80-5.40) m/uL Hgb (11.4-16.0) gm/dL MCHC (31.0-37.0) g/dL Plt Count (150-450) k/uL Neutrophils # (1.3-7.7) k/uL Creatinine (0.52-1.04) mg/dL Glucose (74-99) mg/dL POC Glucose (mg/dL) 200 H 180 H 176 H (75-99) mg/dL Calcium (8.4-10.2) mg/dL C-Reactive Protein (<1.0) mg/dL Albumin (3.5-5.0) g/dL Procalcitonin (0.02-0.09) ng/mL
--- NOTE | 2021-06-01 14:45 | P.PN ---
Subjective Progress Note Date: 06/01/21 Principal diagnosis: Acute hypoxic respiratory failure secondary to pneumonia, possible aspiration pneumonia. On 05/30/2021 patient is seen in follow-up in the intensive care unit, she status post tracheostomy and PEG tube placement yesterday on 05/29/2021, she tolerated procedure very well, she is currently on pressure support of 10, FiO2 of 40%, CPAP 5, she tolerated it very well, this morning's blood gas has been reviewed, pO2 of 79, pCO2 of 50, and pH of 7.39. Chest x-ray yesterday showed bilateral multifocal and confluent opacities without significant change from the day earlier, no need for another chest x-ray today, we'll obtain follow-up chest x-ray for tomorrow. She is currently off the prevent, and sedation has been off since yesterday. She is on 0.9 normal saline at a rate of 20 ML per hour, she remains on a combination of antibiotics was Diflucan and Zosyn, all of her cultures including BAL cultures have remained negative, she has been stable overnight, she's been afebrile, no complaint of chest discomfort. No hemoptysis. Today's labs have been reviewed showing white blood cell count of 11.3, hemoglobin of 9.6, platelet count of 474, sodium is 135, the rest of electrolytes and renal profile are within normal limits, BUN is 8, creatinine 0.59. Patient is supposed to be restarted on tube feedings. She is awake and alert, in no acute distress, she's been hemodynamically stable, not requiring any vasopressor support, she is following all commands, seems to be in good spirits. She's had no acute events overnight. Reevaluated today on 05/31/2021, patient was placed on trach collar yesterday, she continues to tolerate trach collar quite well. She is on 50% FiO2. However this morning the patient is having significant symptoms of nausea and dry heaves, I recommended antiemetic therapy, I also recommended holding feeding, and emptying her stomach. Her PEG tube will be placed to suction. Chest x-ray continues to show significant bilateral infiltrates, right more so than left, and I'm still concerned about the possibility of this lady aspirating. Remains on antibiotics empirically. Patient seems to be tolerating trach collar quite well, mother is at bedside, patient is not requiring any pressors. WBC count today is 15.2 hemoglobin is 9.2 electrolytes are normal blood cultures and sputum cultures have been nondiagnostic. Even urine cultures were nondiagnostic. Reevaluated today on 06/01/2021, patient remains in the ICU, continues to tolerate trach collar quite well, patient is still having intermittent episodes of nausea, dry heaves, but no vomiting. She is on 60% trach collar, and her O2 saturation 97%. Heart rate is 105, respiration 14, the pressure is 98/76 with a mean of 83. WBC count is 13.3 hemoglobin is 9.8. Electrolytes are normal renal profile is normal chest x-ray continues to show bilateral infiltrates with dense consolidation noted in the right lung. Hence I believe the patient somewhat along the line must have had some aspiration pneumonia. Nonetheless the patient is tolerating trach collar well, and we will continue to monitor the patient in the ICU for now. Objective - Vital Signs Vital signs: Vital Signs Temp 98.2 F 06/01/21 12:00 Pulse 105 H 06/01/21 14:00 Resp 14 06/01/21 14:00 BP 98/76 06/01/21 14:00 Pulse Ox 97 06/01/21 14:00 Intake & Output 05/31/21 06/01/21 06/01/21 18:59 06:59 18:59 Intake Total 170 190 220 Output Total 490 1240 345 Balance -320 -1050 -125 Weight 52.2 kg Intake: IV 110 190 160 Normal Saline 0.9 @ KVO 110 90 160 Piperacillin-Tazobactam 3 100 .375 gm In Sodium Chloride 0.9% 100 ml @ 25 mls/hr IVPB Q8HR [facility] Rx# :[id number] Tube Feeding 60 Other 60 Output: Urine 490 1040 315 Stool 200 30 Other: Voiding Method Indwelling Catheter Indwelling Catheter # Voids 1 - Exam GENERAL EXAM: Revealed a 36-year-old female in no distress, she had trach collar in place.. Patient is having almost dry heaves. HEAD: Normocephalic/atraumatic. Tracheostomy is intact. HEENT: PERRLA, EOMI, nonicteric, no neck masses, tracheostomy is intact. Moist mucous membranes. CHEST: No chest wall deformity. Symmetrical expansion. LUNGS: Symmetrical chest expansion, diminished breath sounds at the bases and rhonchi bilaterally noted especially on the right side. CVS: Regular rate and rhythm, normal S1 and S2, no gallops, no murmurs, no rubs ABDOMEN: Soft, nontender. No hepatosplenomegaly, normal bowel sounds, no guarding or rigidity. PEG tube is intact. EXTREMITIES: No clubbing, no edema, no cyanosis, 2+ pulses and upper and lower extremities. MUSCULOSKELETAL: No deformities noted limitation in range of motion. SKIN: No rashes CENTRAL NERVOUS SYSTEM: Alert and oriented 3 no gross focal deficits. - Labs CBC & Chem 7: 06/01/21 05:19 06/01/21 05:19 Labs: Abnormal Lab Results - Last 24 Hours (Table) 05/31/21 05/31/21 06/01/21 Range/Units 17:59 21:37 01:10 WBC (3.8-10.6) k/uL RBC (3.80-5.40) m/uL Hgb (11.4-16.0) gm/dL MCHC (31.0-37.0) g/dL Plt Count (150-450) k/uL Neutrophils # (1.3-7.7) k/uL Creatinine (0.52-1.04) mg/dL Glucose (74-99) mg/dL POC Glucose (mg/dL) 194 H 164 H 188 H (75-99) mg/dL Calcium (8.4-10.2) mg/dL C-Reactive Protein (<1.0) mg/dL Albumin (3.5-5.0) g/dL Procalcitonin (0.02-0.09) ng/mL 06/01/21 06/01/21 06/01/21 Range/Units 05:19 05:19 05:19 WBC 13.3 H (3.8-10.6) k/uL RBC 3.73 L (3.80-5.40) m/uL Hgb 9.8 L (11.4-16.0) gm/dL MCHC 28.9 L (31.0-37.0) g/dL Plt Count 614 H (150-450) k/uL Neutrophils # 11.6 H (1.3-7.7) k/uL Creatinine 0.51 L (0.52-1.04) mg/dL Glucose 212 H (74-99) mg/dL POC Glucose (mg/dL) (75-99) mg/dL Calcium 8.3 L (8.4-10.2) mg/dL C-Reactive Protein 7.0 H (<1.0) mg/dL Albumin 2.3 L (3.5-5.0) g/dL Procalcitonin 0.42 H (0.02-0.09) ng/mL 06/01/21 06/01/21 06/01/21 Range/Units 05:20 08:29 11:24 WBC (3.8-10.6) k/uL RBC (3.80-5.40) m/uL Hgb (11.4-16.0) gm/dL MCHC (31.0-37.0) g/dL Plt Count (150-450) k/uL Neutrophils # (1.3-7.7) k/uL Creatinine (0.52-1.04) mg/dL Glucose (74-99) mg/dL POC Glucose (mg/dL) 200 H 180 H 176 H (75-99) mg/dL Calcium (8.4-10.2) mg/dL C-Reactive Protein (<1.0) mg/dL Albumin (3.5-5.0) g/dL Procalcitonin (0.02-0.09) ng/mL Assessment and Plan Assessment: #1. Acute hypoxic respiratory failure related to worsening and progression of pneumonia, strongly suspect aspiration pneumonia affecting both lungs. and chest x-ray showing patchy consolidation involving the right midlung, right upper lobe and right lower lobe in addition to extensive consolidation of the left lung with possibly some cavitation. Patient is currently covered with meropenem and vancomycin, her antibiotics have been modified , initially covered with Zosyn, patient was doing well on Airvo on 05/21/2021, was clinically improving, but suffered acute respiratory arrest on 05/21/2021 and was intubated, patient was successfully weaned and extubated on 05/23/2021 however failed again and had to be reintubated later that evening on 05/23/2021. In view of multiple episodes of respiratory failure patient will be considered for tracheostomy and PEG tube placement for weaning. Patient is status post bronchoscopy with bronchoalveolar lavage on 05/23/2021, so far BAL cultures are all negative. Patient is status post tracheostomy and PEG tube placement on 05/29/2021, tolerating pressure support trials pressure-support of 10 and CPAP of 5 on 05/29/2021, has been tolerating trach collar since 05/30/2021, remains on trach collar at 60% FiO2. And her FiO2 will be titrated accordingly. She seems to have relatively high O2 saturation.. We can easily bring down her FiO2 to 50% #2. Altered mental status secondary to hypoglycemia. Patient had recovered, and she was back to baseline neurologically. Currently lightly sedated, patient is still intubated, but patient is following all commands #3. History of diabetes, and recent episode of diabetic ketoacidosis, recovered. Levemir insulin has been discontinued and patient is currently covered with sliding scale NovoLog, her last episode of hypoglycemia was on 05/19/2021 with a blood sugar of 45. No recurrence of hypoglycemia since #4. History of syncopal episodes related to hypoglycemia #5. History of migraine cephalgia #6. History of diabetic neuropathy #7. Chronic constipation #8. Chronic low back pain #9. Tongue and oral pharyngeal candidiasis, with ulcerations #10. Previous history of MRSA infection in the laceration of the scalp #11. Chronic anemia with interval drop in hemoglobin down to 6.1 without evidence of any active GI bleeding, status post transfusion with 1 unit of packed red blood cells #12 intermittent episodes of nausea, but no vomiting, being addressed acco rdingly. Remains on antiemetics. And her tube feeding remains on hold. Recommendation: Continue to monitor the patient in the ICU. Continue trach collar. Continue to hold enteral feeding since the patient is having intermittent episodes of nausea and vomiting Continue antibiotics as per infectious disease on the case. Physical therapy to evaluate. Patient may need to be transferred eventually to rehab. Continue to monitor labs and x-rays on a daily basis. Continue GI and DVT prophylaxis. We will continue to follow. Discussed her status with mom at bedside. Critical care time is over 30 minutes. Time with Patient: Greater than 30
[2021-06-01 15:13] LABS: Glucose,Whole Blood 156 mg/dL (75-99)
--- NOTE | 2021-06-01 16:46 | P.PN ---
Subjective Progress Note Date: 06/01/21 Principal diagnosis: Pneumonia Interval history : The patient is a 36-year-old female who presented to the hospital with an episode of unresponsiveness and concern for aspiration pneumonia. The patient subsequently did have worsening of her respiratory status, requiring intubation x2.Currently on the vent. The patient is status post trach and PEG completed 05/29/2021 On today's evaluation, 06/01/2021, The patient continues to be afebrile, the patient is breathing comfortably on the trach collar FiO2 is at 60%, the patient is in no distress, patient denies any chest pain has been complaining of some nausea but no vomiting and no abdominal pain and the patient has developed diarrhea requiring placement of fecal management system Objective - Vital Signs Vital signs: Vital Signs Temp 98.2 F 06/01/21 12:00 Pulse 105 H 06/01/21 14:00 Resp 14 06/01/21 14:00 BP 98/76 06/01/21 14:00 Pulse Ox 97 06/01/21 14:00 Intake & Output 05/31/21 06/01/21 06/01/21 18:59 06:59 18:59 Intake Total 170 190 220 Output Total 490 1240 345 Balance -320 -1050 -125 Weight 52.2 kg Intake: IV 110 190 160 Normal Saline 0.9 @ KVO 110 90 160 Piperacillin-Tazobactam 3 100 .375 gm In Sodium Chloride 0.9% 100 ml @ 25 mls/hr IVPB Q8HR [facility] Rx# :[id number] Tube Feeding 60 Other 60 Output: Urine 490 1040 315 Stool 200 30 Other: Voiding Method Indwelling Catheter Indwelling Catheter # Voids 1 - Exam General description is a middle-aged female up in the chair in no distress Respiratory system:Unlabored breathing, decreased intensity of breath sounds. No wheeze. Heart S1, S2.Regular rate and rhythm. Abdomen soft, no tenderness Extremities: No edema feet - Labs CBC & Chem 7: 06/01/21 05:19 06/01/21 05:19 Labs: Abnormal Lab Results - Last 24 Hours (Table) 05/31/21 05/31/21 06/01/21 Range/Units 17:59 21:37 01:10 WBC (3.8-10.6) k/uL RBC (3.80-5.40) m/uL Hgb (11.4-16.0) gm/dL MCHC (31.0-37.0) g/dL Plt Count (150-450) k/uL Neutrophils # (1.3-7.7) k/uL Creatinine (0.52-1.04) mg/dL Glucose (74-99) mg/dL POC Glucose (mg/dL) 194 H 164 H 188 H (75-99) mg/dL Calcium (8.4-10.2) mg/dL C-Reactive Protein (<1.0) mg/dL Albumin (3.5-5.0) g/dL Procalcitonin (0.02-0.09) ng/mL 06/01/21 06/01/21 06/01/21 Range/Units 05:19 05:19 05:19 WBC 13.3 H (3.8-10.6) k/uL RBC 3.73 L (3.80-5.40) m/uL Hgb 9.8 L (11.4-16.0) gm/dL MCHC 28.9 L (31.0-37.0) g/dL Plt Count 614 H (150-450) k/uL Neutrophils # 11.6 H (1.3-7.7) k/uL Creatinine 0.51 L (0.52-1.04) mg/dL Glucose 212 H (74-99) mg/dL POC Glucose (mg/dL) (75-99) mg/dL Calcium 8.3 L (8.4-10.2) mg/dL C-Reactive Protein 7.0 H (<1.0) mg/dL Albumin 2.3 L (3.5-5.0) g/dL Procalcitonin 0.42 H (0.02-0.09) ng/mL 06/01/21 06/01/21 06/01/21 Range/Units 05:20 08:29 11:24 WBC (3.8-10.6) k/uL RBC (3.80-5.40) m/uL Hgb (11.4-16.0) gm/dL MCHC (31.0-37.0) g/dL Plt Count (150-450) k/uL Neutrophils # (1.3-7.7) k/uL Creatinine (0.52-1.04) mg/dL Glucose (74-99) mg/dL POC Glucose (mg/dL) 200 H 180 H 176 H (75-99) mg/dL Calcium (8.4-10.2) mg/dL C-Reactive Protein (<1.0) mg/dL Albumin (3.5-5.0) g/dL Procalcitonin (0.02-0.09) ng/mL 06/01/21 Range/Units 15:01 WBC (3.8-10.6) k/uL RBC (3.80-5.40) m/uL Hgb (11.4-16.0) gm/dL MCHC (31.0-37.0) g/dL Plt Count (150-450) k/uL Neutrophils # (1.3-7.7) k/uL Creatinine (0.52-1.04) mg/dL Glucose (74-99) mg/dL POC Glucose (mg/dL) 156 H (75-99) mg/dL Calcium (8.4-10.2) mg/dL C-Reactive Protein (<1.0) mg/dL Albumin (3.5-5.0) g/dL Procalcitonin (0.02-0.09) ng/mL Assessment and Plan (1) Pneumonia Current Visit: Yes Status: Acute Code(s): J18.9 - PNEUMONIA, UNSPECIFIED ORGANISM SNOMED Code(s): 720505976 Plan: 1. Patient with acute respiratory failure, likely multifactorial, with concern for possible component of aspiration pneumonia. Patient failed to be extubated and is status post trach and PEG, The patient's bronch culture has been negative for any resistant pathogen , The patient is currently covered with the Zosyn however the patient white count is showing a downward trend and flow cultures mildly elevated. 2patient developing diarrhea possible antibiotic associated we will check a stool for C. diff and treat if positive Time with Patient: Less than 30
[2021-06-01 18:16] LABS: Glucose,Whole Blood 151 mg/dL (75-99)
[2021-06-01 20:00] LABS: Glucose,Whole Blood 153 mg/dL (75-99)
[2021-06-01] MEDS: INSULIN DETEMIR (LEVEMIR) 100 UNIT/ML SYR SQ SCH (20:44)
[2021-06-01] MEDS: MONTELUKAST 10 MG TAB PO SCH (21:58)
[2021-06-01] MEDS: AMITRIPTYLINE HCL 10 MG TAB PO SCH (21:58)
[2021-06-01 23:44] LABS: Glucose,Whole Blood 207 mg/dL (75-99)
[2021-06-02] MEDS: PIPERACILLIN-TAZOBACTAM 3.375 GM in SODIUM CHLORIDE 0.9% 100 ML IVPB SCH ×3 (00:54→17:50)
[2021-06-02] MEDS: INSULIN ASPART (NovoLOG) 100 UNIT/ML VIAL SQ SCH ×6 (00:55→20:53)
[2021-06-02] MEDS: SODIUM CHLORIDE 0.9% 1,000 ML IV SCH ×2 (00:58→17:51)
[2021-06-02] MEDS: HYDROmorphone 0.5 MG/0.5 ML SYRINGE IVP PRN ×2 (01:13→20:55)
[2021-06-02 04:39] LABS: Glucose,Whole Blood 224 mg/dL (75-99)
[2021-06-02 06:36] LABS: Basophils % (A) 0 %; Eosinophils # (A) 0.1 k/uL (0-0.7); Eosinophils % (A) 1 %; HCT 29.4 % (34.0-46.0); HGB 8.9 gm/dL (11.4-16.0); Hypochromasia Marked; Lymphocytes # (A) 1.1 k/uL (1.0-4.8); Lymphocytes % (A) 12 %; MCH 26.9 pg (25.0-35.0); MCHC 30.3 g/dL (31.0-37.0); MCV 88.8 fL (80.0-100.0); Mean Platelet Volume 7.6; Monocytes # (A) 0.5 k/uL (0-1.0); Monocytes % (A) 5 %; Neutrophils # (A) 7.3 k/uL (1.3-7.7); Neutrophils % (A) 81 %; Platelet Count 564 k/uL (150-450); Poikilocytosis Slight; RBC 3.31 m/uL (3.80-5.40); RDW 15.1 % (11.5-15.5); WBC 9.1 k/uL (3.8-10.6)
[2021-06-02 06:49] LABS: ALT 6 U/L (4-34); AST 12 U/L (14-36); African American GFR (CKD) >90 (>60 ml/min/1.73 sqM); Albumin 2.1 g/dL (3.5-5.0); Alkaline Phosphatase 73 U/L (38-126); Anion Gap 10 mmol/L; Blood Urea Nitrogen 8 mg/dL (7-17); Calcium 8.1 mg/dL (8.4-10.2); Carbon Dioxide 25 mmol/L (22-30); Chloride 105 mmol/L (98-107); Glucose 210 mg/dL (74-99); Non-African American GFR(CKD) >90 (>60 ml/min/1.73 sqM); Potassium 3.4 mmol/L (3.5-5.1); Sodium 140 mmol/L (137-145); Total Bilirubin 0.4 mg/dL (0.2-1.3); Total Protein 6.1 g/dL (6.3-8.2)
[2021-06-02 08:03] LABS: Glucose,Whole Blood 171 mg/dL (75-99)
--- NOTE | 2021-06-02 08:17 | XR ---
EXAMINATION TYPE: XR chest 1V portable DATE OF EXAM: 06/02/2021 Comparison: 06/01/2021 Clinical History: 36-year-old female trach collar Findings: Tracheostomy cannula is in place. Right PICC tip within the right atrium. Right heart margin obscured by adjacent pleural parenchymal opacity. Bilateral patchy and confluent airspace opacity persists, r ight greater than left, with slight interval worsening.. Impression: Patchy and confluent bilateral airspace disease, right greater than left, shows slight interval worse carlitos.
[2021-06-02] MEDS: PANTOPRAZOLE 40 MG/10 ML VIAL IVP SCH (09:39)
[2021-06-02] MEDS: POTASSIUM CHLORIDE 20 MEQ in WATER FOR INJECTION 1 100ML.BAG IVPB SCH ×2 (09:40→11:53)
[2021-06-02] MEDS: METOCLOPRAMIDE 5 MG/ML 2 ML VIAL IVP PRN ×2 (09:40→15:30)
[2021-06-02] MEDS: NYSTATIN 100,000 UNIT/ML SUSP 500,000 UNIT/5 ML CUP PO SCH ×4 (09:41→20:45)
[2021-06-02] MEDS: CHLORHEXIDINE GLUCONATE 15 ML CUP MUCOUS MEM SCH ×2 (09:41→20:44)
[2021-06-02] MEDS: ESCITALOPRAM 20 MG TAB PO SCH (10:48)
[2021-06-02] MEDS: PREGABALIN 75 MG CAP PO SCH ×3 (10:48→20:45)
[2021-06-02] MEDS: ZINC SULFATE 220 MG CAP PO SCH (10:48)
[2021-06-02] MEDS: CHOLECALCIFEROL 25 MCG (1000 IU) TABLET PO SCH (10:48)
[2021-06-02] MEDS: THIAMINE 100 MG TAB PO SCH ×2 (10:49→20:45)
[2021-06-02 11:47] LABS: Glucose,Whole Blood 159 mg/dL (75-99)
[2021-06-02] MEDS: FOLIC ACID 1 MG TAB PO SCH (12:20)
[2021-06-02] MEDS: MULTIVITAMINS, THERA 1 EACH TAB PO SCH (12:20)
--- NOTE | 2021-06-02 12:54 | P.PN ---
Subjective Progress Note Date: 06/02/21 This is a 36-year-old old female, seen in the emergency room, room 10. The patient was just discharged out of the hospital yesterday, May 16. The patient apparently returned to the emergency room, with a low blood sugar. She was brought in by EMS. She apparently has no memory of why she was in the ospital. She apparently was hungry when she came into the ER. She complained of back pain. Her blood glucose on arrival was 36. The patient was in the hospital recently for a left-sided pneumonia. The patient also has a history of diabetes with diabetic ketoacidosis. The patient is currently on O2 at 2 L. She's getting D5 0.9 at 75 mL an hour. She was given Augmentin, but we discontinued it in favor of Zosyn. The patient has a history of diabetes, diabetic neuropathy, chronic low back pain, migraine cephalgia, chronic constipation, and prior MRSA infection. White count 21.9, hemoglobin 8.8, hematocrit 28.7, and platelet count 474,000. Sodium 129, potassium 4.4, chlorides 102, CO2 24, anion gap 3, BUN 7, with a creatinine of 0.29. Albumin is 2. Urine is light yellow in color, and cloudy, leukocyte esterase being small positive, 9 WBCs, and rare bacteria. Drug screen is negative. Testing for ling virus was negative. Chest x-ray shows bilateral pneumonia, with dense consolidation within the left lung, and much less infiltrate in the right base. Progress note dated 05/18/2021. This is a 36-year-old female, who was seen in the emergency department in consultation yesterday, and room 10. The patient was recently discharged from the hospital on May 16. She was brought back in for mental status changes, and a low blood sugar. Apparently her blood glucose was only 36. Her prior admission was for diabetic ketoacidosis, and left-sided ammonia. Currently, she is back to her normal self. The patient is on 4 L nasal O2. She's not complaining of any respiratory distress or difficulty. She has a dry nonproductive cough. She was placed on Zosyn yesterday by our team. She was seen by infectious diseases. She has a history of diabetes, diabetic neuropathy , chronic low back pain, migraine cephalgia, chronic constipation, and prior MRSA infection. Currently, white count 19.3, he will been 7.2, hematocrit 24, and platelet count 449,000. Sodium 133, potassium 3.8, chlorides 100, CO2 21, anion gap 12, UN 7, and creatinine 0.4. Pro-calcitonin level is 0.15. C- reactive protein is 5.7. On today's evaluation of 05/19/2021, the patient is doing well. The patient is awake and alert. No signs of any significant respiratory distress. The patient was restarted back on IV Zosyn. The chest x-ray showed extensive consolidation of the left lung and the CAT scan of the chest also confirmed the same findings. The patient was Hospital as because of hypoglycemia. The patient altered mentation and she recovered fully. She is currently on Levemir 20 units along with sliding scale coverage. She is also on D5 water running at 100 mL an hour. Antibiotic coverage with IV Zosyn. Blood work shows a white cell count 12.4 with hemoglobin 8.5, BUN is at 5 with a creatinine of 0.4 and his sodium is at 134 with a potassium level of 3.3. The COVID 19 test that was negative. Urine drug screen was negative. Pro-calcitonin level has been consistently low. A focused on level was at 0.15. The patient currently is on oxygen 4 L per minute nasal cannula. She is afebrile. She is medically and hemodynamically stable at this point in time. She has poor dental conditions and poor oral hygiene. She has also developed some ulceration over the tip of the tongue probably related to candidal infection. On 2021, the patient's condition decompensated and the patient got transferred to the intensive care unit for respiratory support. Overnight, the patient became progressively more hypoxemic and short of breath. She was given a dose of Lasix 40 mg IV push without any much improvement. She was becoming also more lethargic and short of breath. She got transferred to the ICU. Currently she is on a BiPAP at a pressure of 12/6 cm of water with an FiO2 of 100%. Her Pulse Ox Is 99%. A Chest X-Ray Showed Extensive Consolidation of the Left Lung. There Are Some Air Bronchograms on the Left. At the Same Time There Are Some Air Pockets in the Left Jarrell Which Makes Me Concerned about an Underlying Cavitation/Abscess Formation. At the Same Time, There Is Progression of the Airspace Disease and There Is Development of New Patchy Opacities in the Right Midlung and the Right Lower Lung. Note That the Patient Was Covered with IV Zosyn for Any Potential Aspiration Pneumonia.Pro-Calcitonin Level Was at 0.15. Currently She Is on BiPAP Which Is Quite Comfortable. She instructed BiPAP dependent. The patient easily decompensates and desaturates 1 she's taken off the BiPAP. Note that she also had extensive oropharyngeal candidiasis and ulceration of the tongue for which she was given Diflucan. I added cold solution on her yesterday. She is unable to do adequate oral care as the patient is BiPAP dependent. In terms of IV fluids, the patient is on D5 water running at 40 mL an hour. This was started due to concerns of underlying episodes of hypoglycemia. She is a very brittle diabetic. Her blood sugars are all over the place. She is currently on Levemir insulin 20 units a day along with a sliding scale coverage. The Levemir insulin was given today. She is not eating much at this point in time as the patient is BiPAP dependent. Other blood work, her white cell count of 19.0 which is higher compared to yesterday. Hemoglobin is at 7.8. The blood gas while on 100% BiPAP initially showed a pH of 7.37 with a pCO2 of 46 and pO2 of 50. Current saturations up to 90%. Sodium is at 130 with a potassium level of 3.4 and a serum bicarb of 23 with a mean of 4 and a creatinine of 0.4. Her albumin is down to 2.0 with a total protein of 5.7. Cultures for now are negative in terms of blood culture. Note that the patient had MRSA and E. coli and strep in her urine back in 05/09/2021. She has also has had a previous MRSA wound infection involving the scalp. She is arousable. She is a bit lethargic. No agitation. On 05/21/2021 patient seen in follow-up in the intensive care unit, she currently remains on BiPAP support as of 12 and 600%, and her pulse ox is 99- 100%, she is awake and alert, oriented 3, she is extremely thirsty and hungry, does not appear to be in any acute distress, no complaints of worsening dyspnea, she seems to be breathing comfortably, nursing staff reports that patient was able to come off the BiPAP support to take sips of water, oral care, and pills, and patient tolerates being off BiPAP support better although she does desaturate. She is afebrile, hemodynamically she is stable, she remains on a combination of meropenem and vancomycin and Diflucan which were modified yesterday. Blood cultures have been negative thus far, she's been afebrile, no hemoptysis, no complaints of chest discomfort. Produced 5.2 L in urine output in response to Lasix, and she is in -3.8 L net fluid balance over the last 24 hours, today's chest x-ray has been reviewed, showing stable diffuse bilateral airspace disease. Absent been reviewed, white blood cell count is 20.2, hemoglobin is 7.9, platelet count is 482, serum sodium is 133, potassium 3.7, chloride is 104, CO2 is 24, B1 is 5 creatinine 0.42. Her last pro-calcitonin level from 05/18/2021 was 0.15. On 05/22/2021 patient seen in follow-up in intensive care unit, last night during an episode of getting cleaned up after having a bowel movement patient complained of not feeling well, she certainly became unresponsive, she started desaturating, her respirations became very agonal and rapid response team was called for ERIC BLUE. There was no seizure activity noted prior to the event, patient was not desaturating just prior to that, no arrhythmias were noted other than bradycardia after she had started desaturating. During the code patient did not lose her pulse, her pulse ox was down to 66% on high flow Airvo, she was emergently intubated and placed on mechanical ventilator, chest x-ray shows severe ARDS, she was hypotensive and received IV fluids and received norepinephrine infusion which is currently still infusing at 0.06 mics per kilo per minute, she was not hypoglycemic and her blood sugar at that time was 177, she had D5W infusing at 40, and she was starting to take in some oral intake. This morning she is sedated, intubated on assist control mode of ventilation with a rate of 16, tidal, 350, FiO2 is currently at 50% and PEEP of 8, this morning's blood gas shows pO2 of 102, pCO2 of 43, pH is 7.34, this was done on 70% FiO2 which had since been dropped down to 50%, this morning's chest x-ray was reviewed showing moderately severe pulmonary air space edema, without significant change compared to yesterday. The patient is in sinus mechanism, blood pressure is 112/72, currently on meropenem, vancomycin and Diflucan for aspiration pneumonia, blood cultures have been negative, patient has not been able to produce a sputum culture for us. Her labs reveal white blood cell count of 26.8 which is increased since yesterday from 20.2, hemoglobin of 7.9, platelet count of 530, sodium is 134, potassium is 4.0, chloride is 107, CO2 is 21, BUN is 7 creatinine 0.52, her glucose this morning is 203, LFTs were within normal limits, her last pro-calcitonin level from a few days ago was 0.15. Yesterday patient was given a liter bolus after she became intubated, she is producing urine in the order of 30-75 ML per hour, her Lasix is on hold. On 05/23/2021 patient seen in follow-up in the intensive care unit, she is sedated, intubated on mechanical ventilator with a assist control mode of ventilation and rate of 16, tidal emesis 50, FiO2 of 60% and PEEP of 8, this morning's blood gas was reviewed showing O2 of 154, pCO2 of 45, and pH of 7.37. Is currently on Diprivan at 40 mics per kilo per minute, Levaquin is at 3 mics per minute, 0.9 saline at any ML per hour. Today's chest x-ray showing persistent but improving bilateral airspace disease, right greater than left. There is some blood work has been reviewed showing white blood cell count of 13.4, hemoglobin of 7.3, sodium of 140, potassium is 3.9, chloride is 110, CO2 of 22, BUN of 6, creatinine of 0.62, this morning his glucose was 221. Recent have fevers overnight with a T-max of 101.5F. She currently remains on combination of meropenem, vancomycin and Diflucan. Patient is status post bronchoscopy and bronchoalveolar lavage on 05/22/2021, and BAL cultures are still pending. Gram stain showed no organisms thus far. Patient is tolerating tube feedings with vital HP at a rate of 20 ML per hour, Orellana catheter is in place, and patient is producing urine in the order of 50 to 100 mL per hour. On 05/24/2021 , is being seen for a follow-up. Note that the patient was extubated successfully yesterday. Extubation process went fine and the patient was doing very well on a nasal cannula oxygen. At around midnight, the patient acutely decompensated. She became short of breath and hypoxic. Her blood. This was done that showed acute respiratory acidosis with a pH of 7.24 with a pCO2 of 67 and pO2 of 80 and this was identified to 100%. He became acutely unresponsive and significant respiratory distress was noted by the nursing staff. At that point, it was decided that he intubated the patient. The patient is currently intubated on a mechanical ventilator. The patient is sedated with propofol which is running at 30 mcg/kg per minute to maintain synchrony with the mechanical ventilator. She is on assist control mode at the rate of 25, tidal volume of 350, FiO2 has been weaned down to 50% and the patient currently is in a PEEP of 10. Post intubation blood gases showed a pH of 7.48 with a pCO2 of 43 and pO2 of more than 400 and this was on FiO2 100%. Morning blood work also showed a drop in hemoglobin down to 6.1 from a baseline of 7.3. No evidence of any acute bleeding. No evidence of any hematemesis or melanotic stools. The patient will be given a total of 2 units of packed RBCs. Also, the patient is covered with broad-spectrum antibiotics patient remains on a combination of meropenem, vancomycin and Diflucan. The cultures from the bronchioloalveolar lavage was done earlier came back all negative. The repeat chest x-ray from today is showing adequate placement of the orotracheal tube. The patient continues to have bilateral pulmonary infiltrates. However, there is significant interval improvement in the bilateral pulmonary infiltrates compared to earlier chest x-rays. The white cycles of 7.12. Renal function is stable with a creatinine of 0.5 and a BUN of 7. Sodium level is at 144. Potassium level is at 3.2 and a K level will be replaced. The patient was restarted again on enteral feeding and this will be restarted today. Meanwhile, in terms of blood sugar control, the patient is receiving Levemir insulin 20 units once a day and a sliding scale coverage. Blood sugars have been maintained adequately and her most recent blood sugar currently is at 172. Her vancomycin felt level from today was 28. 05/25/2021, the patient is awake even on a low dose of propofol at 30 mcg/kg per minute. She is following commands. She wants to get the tube out. She is on a mechanical ventilator at the rate of 25, tidal volumes of 350, PEEP is at 10 and FiO2 is currently at 40%. PH is at 7.48 with a pCO2 of 43 and pO2 of 113. The lavage from the lungs did not yield any microbial growth. The patient continues to have diffuse bilateral pulmonary infiltrates and there is extensive consolidation bilaterally more so on the right. White secondary to 6.7. Hemoglobin is at 10.1 platelet count is at 356. Creatinine stable at 0.4. BUN is at 7. Sodium is at 139. LFTs are normal. Blood sugars at 168. The patient remains on a broad-spectrum antibiotic coverage. The patient is receiving IV Diflucan, IV vancomycin and IV meropenem. There was always the concern of aspiration in this patient as the patient developed initially extensive left lung consolidation subsequently infiltrates moved to the right. The bronchoscopy was done yielded no significant respiratory secretions or microbial growth at this point in time. She is on Levemir insulin and a sliding scale coverage. She is on no pressors for now. She is is slightly positive over the past 24 hours. The patient was receiving enteral feeding for nutritional support. She is currently on vital high protein at the rate of 20 mL an hour. No hypoglycemic attacks. As mentioned, she is easily arousable and she is moving all 4 extremities without any limitation. No fever. No significant leukocytosis. All of the cultures are negative. She remains on D5W at the rate of 75 mL an hour. No reported abdominal pain. LFTs are normal. Ultrasound abdomen showed a questionable gallbladder wall thickening and a calculus cholecystitis. On 05/26/2021 patient seen in follow-up in the intensive care unit, she is currently sedated, and intubated, on assist-control mode of ventilation with a rate of 25, tidal 350, FiO2 of 50% and PEEP of 5, this morning's blood gas shows pO2 of 55, pCO2 of 41, and pH of 7.54 and this was done and FiO2 of 40% and subsequently FiO2 was increased to 55%. She's currently on point and within indurated 20 ML per hour, norepinephrine drip has been off for over 12 hours, and improving and is at 30 mics per kilo per minute, she is on a vital high protein at a rate of 20 with standard water flushes 30 mL every 4 hours, today's chest x-ray has been reviewed showing bilateral multifocal confluent opacities. No significant change from one day earlier. Patient remains on a combination of antibiotics with Zosyn, vancomycin and Diflucan. Patient is status post bron choscopy with bronchoalveolar lavage on 05/22/2021, and so far BAL cultures are all negative, sputum and blood cultures and urine were all negative. Today's labs have been reviewed, white blood cell count is improved and is down to 7.3, hemoglobin is 9.8, sodium is 137, potassium is 3.4, chloride is 105, BUN is 8, creatinine 0.53. Hemodynamic patient is stable, she is in sinus mechanism, she has had no acute events overnight. No febrile episodes. He is currently likely sedated, she is opening eyes to verbal stimulation, and she seems to be following simple commands. Her LFTs are within normal limits. On 05/27/2021 patient seen in follow-up in the intensive care unit, she is lightly sedated, she opens her eyes to voice, she is following simple commands, does not appear to be in any acute distress, she still intubated, on assist- control mode of ventilation with a rate of 25, Tylenol level was 350, FiO2 of 50% and PEEP of 5, this morning's blood gas shows pO2 of 85, pCO2 44, and pH of 7.52. This was done on the above-mentioned ventilator settings. Today's chest x-ray changed to show patchy bilateral lung infiltrates that are stable in appearance. Vital signs have been stable overnight, no fever, no chills. All of her cultures including BAL cultures remained negative. Patient remains on a combination of antibiotics with Diflucan, Zosyn and vancomycin. She did require small dose of norepinephrine on which she remains, currently infusing at a rate of 3.9 mics per minute. Current blood pressure is 140/89, and norepinephrine can be discontinued. Urine output is in the order of 50 TOPD ML per hour. Patient is receiving the program at 30 mics per kilo per minute, and IV fluids are 0.9 normal saline at a rate of 20 ML per hour, she is tolerating tube feedings with vital AF at a rate of 36 with a goal of 36 and standard water flushes. Today's labs have been reviewed showing white blood cell, 7.4, hemoglobin of 10.4, platelet count of 377, sodium is 137, potassium is 3.4, chloride is 105, CO2 of 33, BUN of 9 creatinine 0.56 On 05/28/2021 patient is seen in follow-up in the intensive care unit, she is slightly sedated, she is awake, alert, she is following command, she still intubated on mechanical ventilator, on assist control mode of ventilation with a rate of 25, tidal volume 350, FiO2 of 40% and PEEP of 5. This was blood gas shows pO2 of 76, P CO2 of 43, and pH is 7.53 this was done on the above- mentioned ventilator settings, she is currently on 30 mics of dopamine, 0.9 normal seen at a rate of 20 ML per hour, tube feedings have been placed on hold for tracheostomy and PEG tube placement possibly today, she is hemodynamically stable, not requiring any vasopressor support. She is in sinus mechanism with a rate of 76 BPM, he had no acute events overnight, today's chest x-ray showing no evident pneumothorax, bilateral airspace disease similar to the prior exam, she said no fever or chills, vital signs have been stable overnight, she said no acute events, remains on the same antibiotics with a combination of Diflucan, Zosyn. Ankle Meissen has been discontinued, ID service is following. Her BAL cultures have shown no growth, urine, and blood cultures have been negative as well. Today's labs have been reviewed, her white blood cell count is 6.8, hemoglobin is 9.4, sodium is 137, potassium is 4.2, chloride is 105, CO2 is 23, BUN of 9, creatinine 0.59. On 05/29/2021 patient seen in follow-up in intensive care unit, she received a tracheostomy and PEG tube placement this morning, she is recovering from the procedure very well, she is resting comfortably in bed, she is currently likely sedated on 30 mics of dopamine, she is opening her eyes to voice, she is following simple commands, she is moving her hands, she is able to band builder with both hands, she is moving her feet. Generally patient is very weak. But does not appear to be in any acute distress, midline tracheostomy in place, incisions clean dry and intact, patient also received a PEG tube. Her tube feedings are on hold, she remains on Diflucan, she remains on Zosyn for empiric antibiotic coverage. All of patient's blood cultures BAL cultures and sputum cultures have remained negative to date. She's had no fever or chills. She is currently on assist control mode of ventilation with a rate of 25, tidal vital 350, FiO2 100%, and PEEP of 5. Prior to her procedure this morning patient was on the same ventilator settings with the exception of FiO2 which was at 40%, her morning blood gases were reviewed showing pO2 of 79, pCO2 41, pH is 7.50, this was done on 40% FiO2, currently patient is saturating at 100% on a heart percent FiO2 and PEEP of 5. Breathing comfortably, and her FiO2 was dropped down to 60% and -50%. Chest x-ray showing bilateral multifocal and confluent opacities greatest in the right lung no significant change compared to one day earlier. Patient has been off norepinephrine for 48 hours, to prevent is infusing at 30 mics per kilo per minute, 0.9 normal saline at a rate of 20 ML per hour, she is in sinus mechanism with a rate of 90-100 bpm, his labs have been reviewed with blood cell count is 7.5, hemoglobin is 9.4, platelet count was 386, sodium is 134, the rest of electrolytes and renal profile are unremarkable. On 05/30/2021 patient is seen in follow-up in the intensive care unit, she status post tracheostomy and PEG tube placement yesterday on 05/29/2021, she tolerated procedure very well, she is currently on pressure support of 10, FiO2 of 40%, CPAP 5, she tolerated it very well, this morning's blood gas has been reviewed, pO2 of 79, pCO2 of 50, and pH of 7.39. Chest x-ray yesterday showed bilateral multifocal and confluent opacities without significant change from the day earlier, no need for another chest x-ray today, we'll obtain follow-up chest x-ray for tomorrow. She is currently off the prevent, and sedation has been off since yesterday. She is on 0.9 normal saline at a rate of 20 ML per hour, she remains on a combination of antibiotics was Diflucan and Zosyn, all of her cultures including BAL cultures have remained negative, she has been stable overnight, she's been afebrile, no complaint of chest discomfort. No hemoptysis. Today's labs have been reviewed showing white blood cell count of 11.3, hemoglobin of 9.6, platelet count of 474, sodium is 135, the rest of electrolytes and renal profile are within normal limits, BUN is 8, creatinine 0.59. Patient is supposed to be restarted on tube feedings. She is awake and alert, in no acute distress, she's been hemodynamically stable, not requiring any vasopressor support, she is following all commands, seems to be in good spirits. She's had no acute events overnight. On 06/02/2021 patient seen in follow-up in the intensive care unit, she is awake and alert, in no acute distress, patient received a tracheostomy and PEG tube placement on 05/29/2021, she had since tolerated trach collar at 60%, she is breathing comfortably, she denies any acute distress, her chest x-ray today showing patchy and confluent bilateral airspace disease, right greater than left, with slight interval worsening. Vital signs have been stable overnight, on 60% trach collar her pulse ox is 96-100%. She is afebrile, hemodynamically she has remained stable. She is on 0.9 normal saline at a rate of 75 ML per hour, apparently her tube feedings have been placed on hold related to some high residuals. Patient remains on antibiotics in the form of Zosyn and fluconazole, all her cultures including BAL cultures remain negative thus far. Today's labs have been reviewed, white blood cell count is 9.1, hemoglobin is 8.9, sodium is 140, potassium is 3.4, the rest is actually some renal profile are unremarkable. LFTs are within normal limits, follow-up pro-calcitonin level is 0.42, slightly improved from the previous value of 0.48. Objective - Vital Signs Vital signs: Vital Signs Temp 98.0 F 06/02/21 08:00 Pulse 100 06/02/21 11:00 Resp 18 06/02/21 11:00 BP 134/83 06/02/21 11:00 Pulse Ox 93 L 06/02/21 11:00 Intake & Output 06/01/21 06/02/21 06/02/21 18:59 06:59 18:59 Intake Total 220 210 200 Output Total 605 575 275 Balance -385 -365 -75 Intake: IV 160 210 200 Normal Saline 0.9 @ KVO 160 110 200 Piperacillin-Tazobactam 3 100 .375 gm In Sodium Chloride 0.9% 100 ml @ 25 mls/hr IVPB Q8HR [facility] Rx# :[id number] Other 60 Output: Urine 495 575 275 Stool 110 Other: Voiding Method Indwelling Catheter Indwelling Catheter Indwelling Catheter # Voids 1 - Exam GENERAL EXAM: Awake and alert, oriented 3 trached to the ventilator 36-year-old frail looking white female, on 60% trach collar with a pulse ox of 96-100% comfortable in no apparent distress. HEAD: Normocephalic/atraumatic. EYES: Normal reaction of pupils, equal size. Conjunctiva pink, sclera white. NOSE: Clear with pink turbinates. MOUTH: She has ulcerations of her oral cavity THROAT: No erythema or exudates. NECK: No masses, no JVD, no thyroid enlargement, no adenopathy. Midline tracheostomy in place, exhalation is on 60% trach collar, breathing comfortably patient is clean dry and intact CHEST: No chest wall deformity. Symmetrical expansion. LUNGS: diminished air entry with crackles, no wheeze, no rhonchi or dullness. CVS: Regular rate and rhythm, normal S1 and S2, no gallops, no murmurs, no rubs ABDOMEN: Soft, nontender. No hepatosplenomegaly, normal bowel sounds, no guarding or rigidity. PEG tube covered with a surgical dressing, feedings are currently on hold EXTREMITIES: No clubbing, no edema, no cyanosis, 2+ pulses and upper and lower extremities. MUSCULOSKELETAL: Muscle strength and tone normal. SPINE: No scoliosis or deformity SKIN: No rashes CENTRAL NERVOUS SYSTEM: Awake and alert, following command No focal deficits, tone is normal in all 4 extremities. - Labs CBC & Chem 7: 06/02/21 06:10 06/02/21 06:10 Labs: Abnormal Lab Results - Last 24 Hours (Table) 06/01/21 06/01/21 06/01/21 Range/Units 15:01 18:14 19:59 RBC (3.80-5.40) m/uL Hgb (11.4-16.0) gm/dL Hct (34.0-46.0) % MCHC (31.0-37.0) g/dL Plt Count (150-450) k/uL Potassium (3.5-5.1) mmol/L Creatinine (0.52-1.04) mg/dL Glucose (74-99) mg/dL POC Glucose (mg/dL) 156 H 151 H 153 H (75-99) mg/dL Calcium (8.4-10.2) mg/dL AST (14-36) U/L Total Protein (6.3-8.2) g/dL Albumin (3.5-5.0) g/dL 06/01/21 06/02/21 06/02/21 Range/Units 23:41 04:37 06:10 RBC 3.31 L (3.80-5.40) m/uL Hgb 8.9 L (11.4-16.0) gm/dL Hct 29.4 L (34.0-46.0) % MCHC 30.3 L (31.0-37.0) g/dL Plt Count 564 H (150-450) k/uL Potassium (3.5-5.1) mmol/L Creatinine (0.52-1.04) mg/dL Glucose (74-99) mg/dL POC Glucose (mg/dL) 207 H 224 H (75-99) mg/dL Calcium (8.4-10.2) mg/dL AST (14-36) U/L Total Protein (6.3-8.2) g/dL Albumin (3.5-5.0) g/dL 06/02/21 06/02/21 06/02/21 Range/Units 06:10 08:01 11:45 RBC (3.80-5.40) m/uL Hgb (11.4-16.0) gm/dL Hct (34.0-46.0) % MCHC (31.0-37.0) g/dL Plt Count (150-450) k/uL Potassium 3.4 L (3.5-5.1) mmol/L Creatinine 0.49 L (0.52-1.04) mg/dL Glucose 210 H (74-99) mg/dL POC Glucose (mg/dL) 171 H 159 H (75-99) mg/dL Calcium 8.1 L (8.4-10.2) mg/dL AST 12 L (14-36) U/L Total Protein 6.1 L (6.3-8.2) g/dL Albumin 2.1 L (3.5-5.0) g/dL Microbiology - Last 24 Hours (Table) 05/22/21 09:44 Acid Fast Bacilli Smear - Final Bronchial Washings - Right Acid Fast Bacilli Culture - Preliminary 06/01/21 05:19 Blood Culture - Preliminary Blood No Growth after 24 hours Assessment and Plan Plan: Assessment: #1. Acute hypoxic respiratory failure related to worsening and progression of pneumonia, and chest x-ray showing patchy consolidation involving the right midlung, right upper lobe and right lower lobe in addition to extensive consolidation of the left lung with possibly some cavitation. Patient is currently covered with meropenem and vancomycin, her antibiotics have been modified yesterday, initially covered with Zosyn, patient was doing well on Airvo on 05/21/2021, was clinically improving, but suffered acute respiratory arrest on 05/21/2021 and was intubated, patient was successfully weaned and extubated on 05/23/2021 however failed again and had to be reintubated later that evening on 05/23/2021. In view of multiple episodes of respiratory failure patient will be considered for tracheostomy and PEG tube placement for weaning. Patient is status post bronchoscopy with bronchoalveolar lavage on 05/23/2021, so far BAL cultures are all negative. Patient is status post tracheostomy and PEG tube placement on 05/29/2021, tolerating pressure support trials pressure- support of 10 and CPAP of 5 on 05/29/2021, and again today on 05/30/2021. Patient has been tolerating trach collar trials, currently on 60% trach collar satting almost 100% #2. Altered mental status secondary to hypoglycemia. Patient had recovered, and she was back to baseline neurologically. Currently lightly sedated, patient is still intubated, but patient is following all commands #3. History of diabetes, and recent episode of diabetic ketoacidosis, recovered. Levemir insulin has been discontinued and patient is currently covered with sliding scale NovoLog, her last episode of hypoglycemia was on 05/19/2021 with a blood sugar of 45. No recurrence of hypoglycemia since #4. History of syncopal episodes related to hypoglycemia #5. History of migraine cephalgia #6. History of diabetic neuropathy #7. Chronic constipation #8. Chronic low back pain #9. Tongue and oral pharyngeal candidiasis, with ulcerations #10. Previous history of MRSA infection in the laceration of the scalp #11. Chronic anemia with interval drop in hemoglobin down to 6.1 without evidence of any active GI bleeding, status post transfusion with 1 unit of packed red blood cells Plan: Todays labs, chest x-ray reviewed Continue current antibiotics, Vital signs have been stable, patient has been afebrile All cultures remain negative Patient is tolerating trach collar trials, no worsening dyspnea no worsening hypoxia Continue weaning FiO2, FiO2 will be cut back to 40% We will add Reglan 5 mg every 6 hours for promotility agent Resume tube feedings today starting at 10 ML per hour and gradually increase to goal The patient up in the chair, physical therapy recommendation for possibility of rehab placement versus returning home in the care of her mother Follow-up labs, chest x-ray in the morning We'll consider transferring the patient to the floor possibly in the next 24 hours if remains stable I performed a history & physical examination of the patient and discussed their management with my nurse practitioner, Dania Negron. I reviewed the nurse practitioner's note and agree with the documented findings and plan of care. Lung sounds are positive for dim breath sounds throughout the lung abbott. The findings and the impression was discussed with the patient. I attest to the documentation by the nurse practitioner. Time with Patient: Greater than 30
[2021-06-02] MEDS: FLUCONAZOLE IN NACL,ISO-OSM 100 MG in SALINE 1 50ML.BAG IVPB SCH (14:46)
--- NOTE | 2021-06-02 15:06 | P.PN ---
Subjective Progress Note Date: 06/02/21 CHIEF COMPLAINT: Hypoglycemia HISTORY OF PRESENT ILLNESS: The patient currently in the ICU with acute hypoxic respiratory failure secondary to pneumonia. Patient is status post tracheostomy and PEG tube placement. Patient's tube feedings are currently on hold due to nausea. No residual reported. She is having stools. No abdominal distention. She was started on Reglan and Zofran. She is tolerating trach collar. Afebrile PHYSICAL EXAM: VITAL SIGNS: Reviewed. GENERAL: no acute distress. HEENT: No sclera icterus. Extraocular movements grossly intact. Moist buccal mucosa. Head is atraumatic, normocephalic. Trachea site clean dry and intact ABDOMEN: Soft. Nondistended. Nontender. PEG tube site clean dry and intact ASSESSMENT: 1. Acute hypoxic respiratory failure secondary to pneumonia. Patient was extubated and required to be reintubated on 05/23/2021. Patient status post tracheostomy placement 2. Severe protein calorie malnutrition. Patient status post PEG tube placement PLAN: -Tube feedings currently on hold due to nausea -Continue Reglan and Zofran -Continue ICU management and supportive care Physician Electronic Technician note has been reviewed by physician. Signing provider agrees with the documented findings, assessment, and plan of care. Objective - Vital Signs Vital signs: Vital Signs Temp 98.1 F 06/02/21 12:00 Pulse 101 H 06/02/21 14:00 Resp 19 06/02/21 14:00 BP 129/85 06/02/21 14:00 Pulse Ox 95 06/02/21 14:00 Intake & Output 06/01/21 06/02/21 06/02/21 18:59 06:59 18:59 Intake Total 220 210 400 Output Total 605 575 560 Balance -385 -365 -160 Weight 52.2 kg Intake: IV 160 210 400 Normal Saline 0.9 @ KVO 160 110 400 Piperacillin-Tazobactam 3 100 .375 gm In Sodium Chloride 0.9% 100 ml @ 25 mls/hr IVPB Q8HR [facility] Rx# :[id number] Other 60 Output: Urine 495 575 560 Stool 110 Other: Voiding Method Indwelling Catheter Indwelling Catheter Indwelling Catheter # Voids 1 - Labs CBC & Chem 7: 06/02/21 06:10 06/02/21 06:10 Labs: Abnormal Lab Results - Last 24 Hours (Table) 06/01/21 06/01/21 06/01/21 Range/Units 15:01 18:14 19:59 RBC (3.80-5.40) m/uL Hgb (11.4-16.0) gm/dL Hct (34.0-46.0) % MCHC (31.0-37.0) g/dL Plt Count (150-450) k/uL Potassium (3.5-5.1) mmol/L Creatinine (0.52-1.04) mg/dL Glucose (74-99) mg/dL POC Glucose (mg/dL) 156 H 151 H 153 H (75-99) mg/dL Calcium (8.4-10.2) mg/dL AST (14-36) U/L Total Protein (6.3-8.2) g/dL Albumin (3.5-5.0) g/dL 06/01/21 06/02/21 06/02/21 Range/Units 23:41 04:37 06:10 RBC 3.31 L (3.80-5.40) m/uL Hgb 8.9 L (11.4-16.0) gm/dL Hct 29.4 L (34.0-46.0) % MCHC 30.3 L (31.0-37.0) g/dL Plt Count 564 H (150-450) k/uL Potassium (3.5-5.1) mmol/L Creatinine (0.52-1.04) mg/dL Glucose (74-99) mg/dL POC Glucose (mg/dL) 207 H 224 H (75-99) mg/dL Calcium (8.4-10.2) mg/dL AST (14-36) U/L Total Protein (6.3-8.2) g/dL Albumin (3.5-5.0) g/dL 06/02/21 06/02/21 06/02/21 Range/Units 06:10 08:01 11:45 RBC (3.80-5.40) m/uL Hgb (11.4-16.0) gm/dL Hct (34.0-46.0) % MCHC (31.0-37.0) g/dL Plt Count (150-450) k/uL Potassium 3.4 L (3.5-5.1) mmol/L Creatinine 0.49 L (0.52-1.04) mg/dL Glucose 210 H (74-99) mg/dL POC Glucose (mg/dL) 171 H 159 H (75-99) mg/dL Calcium 8.1 L (8.4-10.2) mg/dL AST 12 L (14-36) U/L Total Protein 6.1 L (6.3-8.2) g/dL Albumin 2.1 L (3.5-5.0) g/dL Microbiology - Last 24 Hours (Table) 05/22/21 09:44 Acid Fast Bacilli Smear - Final Bronchial Washings - Right Acid Fast Bacilli Culture - Preliminary 06/01/21 05:19 Blood Culture - Preliminary Blood No Growth after 24 hours
[2021-06-02 15:54] LABS: Glucose,Whole Blood 160 mg/dL (75-99)
[2021-06-02 16:50] LABS: Magnesium 1.8 mg/dL (1.6-2.3); Phosphorus 2.4 mg/dL (2.5-4.5)
[2021-06-02] MEDS: MONTELUKAST 10 MG TAB PO SCH (20:45)
[2021-06-02] MEDS: AMITRIPTYLINE HCL 10 MG TAB PO SCH (20:45)
[2021-06-02] MEDS: INSULIN DETEMIR (LEVEMIR) 100 UNIT/ML SYR SQ SCH (20:53)
[2021-06-02 20:54] LABS: Glucose,Whole Blood 174 mg/dL (75-99)
--- NOTE | 2021-06-02 21:45 | P.PN ---
Subjective Progress Note Date: 06/02/21 Principal diagnosis: Pneumonia Interval history : The patient is a 36-year-old female who presented to the hospital with an episode of unresponsiveness and concern for aspiration pneumonia. The patient subsequently did have worsening of her respiratory status, requiring intubation x2.Currently on the vent. The patient is status post trach and PEG completed 05/29/2021 On today's evaluation, 06/02/2021, The patient remains to be to be afebrile, the patient is breathing comfortably on the trach collar, patient denies any chest pain , no further nausea no vomiting tolerating her tube feeds. The patient did have diarrhea for the patient did have a fecal management system Objective - Vital Signs Vital signs: Vital Signs Temp 98.1 F 06/02/21 16:00 Pulse 96 06/02/21 18:00 Resp 18 06/02/21 18:00 BP 142/92 06/02/21 18:00 Pulse Ox 96 06/02/21 18:00 Intake & Output 06/02/21 06/02/21 06/03/21 06:59 18:59 06:59 Intake Total 210 520 20 Output Total 575 785 Balance -365 -265 20 Weight 52.2 kg Intake: IV 210 520 20 Normal Saline 0.9 @ KVO 110 520 20 Piperacillin-Tazobactam 3 100 .375 gm In Sodium Chloride 0.9% 100 ml @ 25 mls/hr IVPB Q8HR [facility] Rx# :[id number] Output: Urine 575 785 Other: Voiding Method Indwelling Catheter Indwelling Catheter - Exam General description is a middle-aged female up in the chair in no distress Respiratory system:Unlabored breathing, decreased intensity of breath sounds. No wheeze. Heart S1, S2.Regular rate and rhythm. Abdomen soft, no tenderness Extremities: No edema feet - Labs CBC & Chem 7: 06/02/21 06:10 06/02/21 16:13 Labs: Abnormal Lab Results - Last 24 Hours (Table) 06/01/21 06/02/21 06/02/21 Range/Units 23:41 04:37 06:10 RBC 3.31 L (3.80-5.40) m/uL Hgb 8.9 L (11.4-16.0) gm/dL Hct 29.4 L (34.0-46.0) % MCHC 30.3 L (31.0-37.0) g/dL Plt Count 564 H (150-450) k/uL Potassium (3.5-5.1) mmol/L Creatinine (0.52-1.04) mg/dL Glucose (74-99) mg/dL POC Glucose (mg/dL) 207 H 224 H (75-99) mg/dL Calcium (8.4-10.2) mg/dL Phosphorus (2.5-4.5) mg/dL AST (14-36) U/L Total Protein (6.3-8.2) g/dL Albumin (3.5-5.0) g/dL 06/02/21 06/02/21 06/02/21 Range/Units 06:10 08:01 11:45 RBC (3.80-5.40) m/uL Hgb (11.4-16.0) gm/dL Hct (34.0-46.0) % MCHC (31.0-37.0) g/dL Plt Count (150-450) k/uL Potassium 3.4 L (3.5-5.1) mmol/L Creatinine 0.49 L (0.52-1.04) mg/dL Glucose 210 H (74-99) mg/dL POC Glucose (mg/dL) 171 H 159 H (75-99) mg/dL Calcium 8.1 L (8.4-10.2) mg/dL Phosphorus (2.5-4.5) mg/dL AST 12 L (14-36) U/L Total Protein 6.1 L (6.3-8.2) g/dL Albumin 2.1 L (3.5-5.0) g/dL 06/02/21 06/02/21 06/02/21 Range/Units 15:52 16:13 20:51 RBC (3.80-5.40) m/uL Hgb (11.4-16.0) gm/dL Hct (34.0-46.0) % MCHC (31.0-37.0) g/dL Plt Count (150-450) k/uL Potassium (3.5-5.1) mmol/L Creatinine (0.52-1.04) mg/dL Glucose (74-99) mg/dL POC Glucose (mg/dL) 160 H 174 H (75-99) mg/dL Calcium (8.4-10.2) mg/dL Phosphorus 2.4 L (2.5-4.5) mg/dL AST (14-36) U/L Total Protein (6.3-8.2) g/dL Albumin (3.5-5.0) g/dL Microbiology - Last 24 Hours (Table) 05/22/21 09:44 Acid Fast Bacilli Smear - Final Bronchial Washings - Right Acid Fast Bacilli Culture - Preliminary 06/01/21 05:19 Blood Culture - Preliminary Blood No Growth after 24 hours Assessment and Plan (1) Pneumonia Current Visit: Yes Status: Acute Code(s): J18.9 - PNEUMONIA, UNSPECIFIED ORGANISM SNOMED Code(s): 940927859 Plan: 1. Patient with acute respiratory failure, likely multifactorial, with concern for possible component of aspiration pneumonia. Patient failed to be extubated and is status post trach and PEG, The patient's bronch culture has been negative for any resistant pathogen , The patient has received more than 2 weeks of IV to by therapy we should be more than enough and the white count normalized we will discontinue Zosyn and monitor the patient closely off antibiotics 2patient developing diarrhea possible antibiotic associated stool for C. diff was negative and hopefully will improve with discontinuation of Zosyn Time with Patient: Less than 30
--- NOTE | 2021-06-02 23:35 | P.PN ---
Subjective Progress Note Date: 06/02/21 This is a 36-year-old female who was recently admitted with changes in mental status along with significant hypoglycemia and is being closely monitored. Patient continues on 100% BiPAP with continued dyspnea and pulmonary following closely. Patient also found to have bilateral pneumonia possible aspiration and also a fungal urinary tract infection. Patient continues in the ICU for close monitoring and infectious disease is also following. Patient continues on IV antibiotics in the form of meropenem along with fluconazole and vancomycin and will continue. Multiple family members at the bedside. Recommend repeat chest x-ray along with labs in the morning. White blood Count elevated at 19.1. Potassium is 3.4 and magnesium 1.6 and will replace per protocol. 05/21/2021 She is seen in follow-up continues to be in the ICU being closely monitored. Patient was maintained on BiPAP and attempting airvo to allow for oral intake. Only at the bedside with multiple questions and concerns answered to the best of our ability. Patient's mentation is improved and answering questions and responding to commands appropriately. Chest x-ray today shows bilateral diffuse airspace disease with small effusion, stable with no pneumothorax noted. Infectious disease following an patient is continued on IV fluconazole along with meropenem. Blood cultures remain negative. Blood count is mildly elevated at 20.2. Patient is afebrile. Recommend repeat labs and chest x-ray in the a.m. She denies any chest pains or palpitations at this time. Patient tolerating oral intake and recommend strict aspiration precautions of head of the bed elevated 30-45 at all times and supervision with meals. 05/22/2021 Patient is seen in follow up and being closely monitored in the ICU with multiple medical consultations following. Patient was an A team this morning for acute respiratory arrest that was witnessed by nursing staff at the bedside and was changing the patient after a bowel movement and became apneic and code blue was initiated. Patient did not lose pulse but was intubated and placed on sedation. Chest xray showed moderately severe pulmonary edema without change compared to yesterday. Patient was given a dose of lasix. Patient is on some pressor support as well. Pulmonary following and patient underwent bronchoscopy with fluid analysis sent and pending. Patient is continued on IV merrem and vancomycin with ID following closely. Await finalized cultures. WBC elevated as well at 26.8. 05/23/2021 Patient is seen and evaluated this morning and continues in critical condition in the ICU. Mother at the bedside and patient was extubated this morning. Patient is currently resting on 2L of02 via NC with oxygen saturation above 90%. Patient is extremely lethargic but arousable. Chest xray shows persistent but improving airspace disease, right greater than left. Mother is at the bedside. May Patient is seen and evaluated today in follow-up continues to be in the ICU being closely monitored. Patient continues on mechanical vent with sedation and attempts at weaning continue. Pulmonary and ID following closely. Patient continues with FI02 of 60%. Patient also continues on IV fluconazole and Zosyn and will continue. Chest xray today shows bilateral multifocal and confluent opacities redemonstrated consistent with covid 19 infection and or ARDS is redemonstrated with no significant change from yesterday. 05/27/2021 Patient is seen and evaluated this morning and continues on mechanical ventilation and lightly sedated on propofol although patient is awake and following commands although fatigues easily. General surgery consulted for PEG and trach placement for pulmonary field broomer recommendations. Infectious disease following an patient is maintained on fluconazole along with IV Zosyn and will continue. Patient continues with multiple episodes of loose stool with fecal management system and C. diff testing is ordered. Potassium mildly low at 3.4 and will replace per protocol. Magnesium is 2.2 today. Chest x-ray today shows patchy bilateral lung infiltrates that are stable. 05/28/2021 Patient is seen in follow-up in the ICU continues to be closely monitored with multiple medical consultations following. Plan for today was possible peg and trach placement although surgery extremely busy and will likely occur tomorrow. Patient continues on IV abx with ID following closely. Patient continues on mechanical vent with an FI02 of 50%. Minimally sedated. 05/29/2021 Patient is seen this morning status post PEG tube and tracheostomy placement and continues on mechanical vent with an FiO2 of 50% and PEEP is 5. Mother at the bedside with questions and concerns answered. PEG tube on hold currently for 24 hours and awaiting clearance from surgery to start tube feedings. Chest x-ray today shows bilateral multifocal and confluent opacification greatest in the right lung are redemonstrated consistent with COVID-19 and/or arts with no significant change from previous day. Patient is awake and nodding yes and no appropriately. 05/30/2021 Patient is seen today currently sitting up in the chair and recently placed on trach collar as she is status post tracheostomy and PEG tube placement yesterday. Tube feedings were started on the PEG tube although patient became nauseated and currently on hold and will continue to monitor. Patient continues with loose stool and does have fecal management system that is intact. Recommen d to keep the rectal tubing as patient experiences more frequent episodes of loose stool with feedings. Trach collar is 50% FiO2. Patient continues on IV zosyn with ID following. 05/31/2021 Patient evaluated today in the ICU resting in bed. Orellana catheter and fecal management system in place. Oxygenation maintained on trach collar with Fi02 of 50% and oxygen saturation of 96%. Patient does present with congested cough. She is nauseas today and feels like she wants to throw up. Nurse reports minimal residual volumes with feedings. Tube feedings were placed on hold, and she will be placed to suction via PEG tube. Concerns for aspiration. She is getting IV zofran and IV protonix. Repeat chest xray today shows slight interval worsening of multifocal airspace opacities right greater than left. Labs today show WBC 15.2, hgb 9.2, platelet count 533, sodium 137, potassium 4.2, glucose in the 180s. Patient with low grade fever 99.3, heart rate 108, respirations 17, blood pressure 116/73, 96% on trach collar. All cultures negative. Continues on IV Zosyn and IV fluconazole. 06/01/2021 Patient evaluated today in bed with HOB around 30. Per RN she was up in the chair yesterday. Indwelling catheter and Fecal management system in place. Patient is on trach colloar with FiO2 50% with oxygen saturation of 97%. Blood pressures are marginal at 98/76, respirations 14, heart rate 105, afebrile. Patient to feedings were placed on hold yesterday with PEG tube to suction. She still complains of ongoing nausea which is not improved. She is no longer dry heaving on my assessment. Patient is in a negative fluid balance. We will start patient's IV hydration with normal saline at 75 mL per hour. She continues on IV Zofran. She is also on IV Tylenol, IV fluconazole, IV Zosyn. Chest x-ray shows correlation for pneumonia. Blood fungal culture is currently pending. 06/02/2021 Patient is seen and evaluated in follow up this morning and continues to be in the ICU being closely monitored. Patient is currently up in the chair and on trach collar at 60% although per nursing staff being weaned down to 40%. Patient persists with nausea and having high residuals and tube feeds on hold. Reglan scheduled being added and will resume tube feeds once nausea improves and start slowly on tube feeds. Chest xray today shows patchy and confluent bilateral airspace disease right greater than left that shows slight interval worsening. Patient remains on IV zosyn and fluconazole with ID following as well. Labs: WBC is 9.1, hemoglobin is 8.9, platelets are 564, sodium is 140, potassium 3.4, BUN 8, creatinine 0.49, calcium 8.1 Review of systems: unable to assess clearly as patient is status post trach collar placement and dry heaving with nausea. All medications have been reviewed Active Medications Acetaminophen (Acetaminophen Tab 325 Mg Tab) 650 mg PO Q6HR PRN PRN Reason: Fever and/ or Mild Pain Last Admin: 05/23/21 04:35 Dose: 650 mg Documented by: Amitriptyline HCl (Amitriptyline Hcl 10 Mg Tab) 10 mg PO HS [facility] Last Admin: 06/01/21 21:58 Dose: 10 mg Documented by: Chlorhexidine Gluconate (Chlorhexidine Gluconate 15 Ml Cup) 15 ml MUCOUS MEM BID [facility] Last Admin: 06/02/21 09:41 Dose: 15 ml Documented by: Cholecalciferol (Cholecalciferol 25 Mcg (1000 Iu) Tablet) 50 mcg PO DAILY [facility] Last Admin: 06/02/21 10:48 Dose: 50 mcg Documented by: Escitalopram Oxalate (Escitalopram 20 Mg Tab) 20 mg PO DAILY [facility] Last Admin: 06/02/21 10:48 Dose: 20 mg Documented by: Folic Acid (Folic Acid 1 Mg Tab) 1 mg PO DAILY@1200 [facility] Last Admin: 06/01/21 11:35 Dose: Not Given Documented by: Hydromorphone HCl (Hydromorphone 0.5 Mg/0.5 Ml Syringe) 0.5 mg IVP Q3HR PRN PRN Reason: Severe Pain Last Admin: 06/02/21 01:13 Dose: 0.5 mg Documented by: Fluconazole/Sodium Chloride (100 mg/ IV Solution) 50 mls @ 50 mls/hr IVPB DAILY [facility] Last Admin: 06/01/21 08:38 Dose: 50 mls/hr Documented by: Acetaminophen 1,000 mg/ IV (Solution) 100 mls @ 400 mls/hr IVPB Q6HR PRN PRN Reason: Fever Stop: 06/09/21 08:05 Piperacillin Sod/Tazobactam (Sod 3.375 gm/ Sodium Chloride) 100 mls @ 25 mls/hr IVPB Q8HR [facility] Last Admin: 06/02/21 09:40 Dose: 25 mls/hr Documented by: Sodium Chloride (Saline 0.9%) 1,000 mls @ 40 mls/hr IV .Q24H [facility] Last Admin: 06/02/21 00:58 Dose: 75 mls/hr Documented by: Insulin Aspart (Insulin Aspart (Novolog) 100 Unit/Ml Vial) 0 unit SQ Q4H [facility]; Protocol Last Admin: 06/02/21 11:47 Dose: Not Given Documented by: Insulin Detemir (Insulin Detemir (Levemir) 100 Unit/Ml Syr) 20 unit SQ [facility] Last Admin: 06/01/21 20:44 Dose: Not Given Documented by: Metoclopramide HCl (Metoclopramide 5 Mg/Ml 2 Ml Vial) 5 mg IVP Q6HR PRN PRN Reason: Nausea And Vomiting Last Admin: 06/02/21 09:40 Dose: 5 mg Documented by: Miscellaneous Information (Magnesium Replacement Protocol 1 Each Misc) 1 each MISCELLANE DAILY PRN; Protocol PRN Reason: Per Protocol Miscellaneous Information (Potassium Replacement Protocol 1 Each Misc) 1 each MISCELLANE DAILY PRN; Protocol PRN Reason: Per Protocol Montelukast Sodium (Montelukast 10 Mg Tab) 10 mg PO HS [facility] Last Admin: 06/01/21 21:58 Dose: 10 mg Documented by: Multivitamins (Multivitamins, Thera 1 Each Tab) 1 each PO DAILY@1200 [facility] Last Admin: 06/01/21 11:35 Dose: Not Given Documented by: Nystatin (Nystatin 100,000 Unit/Ml Susp 500,000 Unit/5 Ml Cup) 500,000 unit PO QID [facility] Last Admin: 06/02/21 09:41 Dose: 500,000 unit Documented by: Ondansetron HCl (Ondansetron 4 Mg/2 Ml Vial) 4 mg IVP Q6HR PRN PRN Reason: Nausea And Vomiting Last Admin: 06/01/21 05:16 Dose: 4 mg Documented by: Pantoprazole Sodium (Pantoprazole 40 Mg/10 Ml Vial) 40 mg IVP DAILY [facility] Last Admin: 06/02/21 09:39 Dose: 40 mg Documented by: Pregabalin (Pregabalin 75 Mg Cap) 75 mg PO TID [facility] Last Admin: 06/02/21 10:48 Dose: 75 mg Documented by: Sumatriptan Succinate (Sumatriptan Succinate 50 Mg Tab) 100 mg PO DAILY PRN PRN Reason: Migraine Headache Thiamine HCl (Thiamine 100 Mg Tab) 100 mg PO BID-W/MEALS [facility] Last Admin: 06/02/21 10:49 Dose: 100 mg Documented by: Zinc Sulfate (Zinc Sulfate 220 Mg Cap) 220 mg PO DAILY [facility] Last Admin: 06/02/21 10:48 Dose: 220 mg Documented by: Physical Exam: Gen: This is a 36-year-old female who was intubated and sedated status post tracheostomy placement, thin built, cachectic. oxygen saturation is 96% on 60% FiO2 trach collar HEENT: Head is atraumatic, normocephalic. Pupils equal, round. Sclerae is anicteric. oral mucosa is dry and white patches noted on tongue, cracking and lesions noted on the lips NECK: Supple. No JVD. No lymphadenopathy. No thyromegaly. LUNGS: Breath sounds diminished with scattered rhonchi and crackles noted. No intercostal retractions. HEART: S1, S2 are muffled ABDOMEN: Soft. Bowel sounds are present. No masses. No tenderness. peg tube noted EXTREMITIES: No pedal edema. No calf tenderness. NEUROLOGICAL: Patient is awake, alert and oriented x3. Nodding yes and no to questions and commands . Assessment: Acute bilateral pneumonia, right more than left with aspiration pneumonia with sepsis, present on admission Leukocytosis secondary to above, improving acute respiratory difficulty and acute hypoxic respiratory failure requiring mechanical ventilation, status post extubation and reintubation Status post peg tube and tracheostomy placement, tube feedings currently on hold due to ongoing nausea. 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 Infectious disease and pulmonary following closely and patient remains on mechanical vent and weaning attempts ongoing. FI02 is down to 40% with a PEEP of 5 patient is awake and off sedation and maintained on trach collar. Tube feedings on hold for high residuals and patient continues with nausea. Reglan scheduled being added. Mother at the bedside and her questions and concerns were answered to the best of our ability. Recommend repeat labs and follow-up chest x-ray in the morning. Recommend to keep the bed elevated 30-45 at all times and maintain aspiration precautions. Blood cultures remain negative. ID following and maintained on IV zosyn along with nystatin and fluconazole. Recommend to continue to monitor blood sugars closely. Patient will likely need ltac or ecf placement once stabilized as patient is extremely weak. Social work consulted and following and will need to discuss with mother about treatment plan and discharge planning. Objective - Vital Signs Vital signs: Vital Signs Temp 97.5 F L 06/02/21 04:00 Pulse 97 06/02/21 07:00 Resp 21 06/02/21 07:00 BP 135/88 06/02/21 07:00 Pulse Ox 94 L 06/02/21 07:00 Intake & Output 06/01/21 06/02/21 06/02/21 18:59 06:59 18:59 Intake Total 220 210 30 Output Total 605 575 150 Balance -385 -365 -120 Intake: IV 160 210 30 Normal Saline 0.9 @ KVO 160 110 30 Piperacillin-Tazobactam 3 100 .375 gm In Sodium Chloride 0.9% 100 ml @ 25 mls/hr IVPB Q8HR [facility] Rx# :[id number] Other 60 Output: Urine 495 575 150 Stool 110 Other: Voiding Method Indwelling Catheter Indwelling Catheter # Voids 1 - Labs CBC & Chem 7: 06/02/21 06:10 06/02/21 16:13 Labs: Abnormal Lab Results - Last 24 Hours (Table) 06/01/21 06/01/21 06/01/21 Range/Units 05:19 11:24 15:01 RBC (3.80-5.40) m/uL Hgb (11.4-16.0) gm/dL Hct (34.0-46.0) % MCHC (31.0-37.0) g/dL Plt Count (150-450) k/uL Potassium (3.5-5.1) mmol/L Creatinine (0.52-1.04) mg/dL Glucose (74-99) mg/dL POC Glucose (mg/dL) 176 H 156 H (75-99) mg/dL Calcium (8.4-10.2) mg/dL AST (14-36) U/L Total Protein (6.3-8.2) g/dL Albumin (3.5-5.0) g/dL Procalcitonin 0.42 H (0.02-0.09) ng/mL 06/01/21 06/01/21 06/01/21 Range/Units 18:14 19:59 23:41 RBC (3.80-5.40) m/uL Hgb (11.4-16.0) gm/dL Hct (34.0-46.0) % MCHC (31.0-37.0) g/dL Plt Count (150-450) k/uL Potassium (3.5-5.1) mmol/L Creatinine (0.52-1.04) mg/dL Glucose (74-99) mg/dL POC Glucose (mg/dL) 151 H 153 H 207 H (75-99) mg/dL Calcium (8.4-10.2) mg/dL AST (14-36) U/L Total Protein (6.3-8.2) g/dL Albumin (3.5-5.0) g/dL Procalcitonin (0.02-0.09) ng/mL 06/02/21 06/02/21 06/02/21 Range/Units 04:37 06:10 06:10 RBC 3.31 L (3.80-5.40) m/uL Hgb 8.9 L (11.4-16.0) gm/dL Hct 29.4 L (34.0-46.0) % MCHC 30.3 L (31.0-37.0) g/dL Plt Count 564 H (150-450) k/uL Potassium 3.4 L (3.5-5.1) mmol/L Creatinine 0.49 L (0.52-1.04) mg/dL Glucose 210 H (74-99) mg/dL POC Glucose (mg/dL) 224 H (75-99) mg/dL Calcium 8.1 L (8.4-10.2) mg/dL AST 12 L (14-36) U/L Total Protein 6.1 L (6.3-8.2) g/dL Albumin 2.1 L (3.5-5.0) g/dL Procalcitonin (0.02-0.09) ng/mL 06/02/21 Range/Units 08:01 RBC (3.80-5.40) m/uL Hgb (11.4-16.0) gm/dL Hct (34.0-46.0) % MCHC (31.0-37.0) g/dL Plt Count (150-450) k/uL Potassium (3.5-5.1) mmol/L Creatinine (0.52-1.04) mg/dL Glucose (74-99) mg/dL POC Glucose (mg/dL) 171 H (75-99) mg/dL Calcium (8.4-10.2) mg/dL AST (14-36) U/L Total Protein (6.3-8.2) g/dL Albumin (3.5-5.0) g/dL Procalcitonin (0.02-0.09) ng/mL Microbiology - Last 24 Hours (Table) 06/01/21 05:19 Blood Culture - Preliminary Blood No Growth after 24 hours
[2021-06-03 00:30] LABS: Glucose,Whole Blood 198 mg/dL (75-99)
[2021-06-03] MEDS: INSULIN ASPART (NovoLOG) 100 UNIT/ML VIAL SQ SCH ×6 (00:30→21:31)
[2021-06-03 05:28] LABS: Glucose,Whole Blood 193 mg/dL (75-99)
[2021-06-03] MEDS: THIAMINE 100 MG TAB PO SCH ×2 (05:41→15:42)
[2021-06-03 06:54] LABS: African American GFR (CKD) >90 (>60 ml/min/1.73 sqM); Anion Gap 8 mmol/L; Basophils % (A) 0 %; Blood Urea Nitrogen 7 mg/dL (7-17); Calcium 7.9 mg/dL (8.4-10.2); Carbon Dioxide 29 mmol/L (22-30); Chloride 103 mmol/L (98-107); Eosinophils # (A) 0.3 k/uL (0-0.7); Eosinophils % (A) 4 %; Glucose 192 mg/dL (74-99); HCT 31.5 % (34.0-46.0); HGB 9.3 gm/dL (11.4-16.0); Hypochromasia Marked; Lymphocytes # (A) 1.3 k/uL (1.0-4.8); Lymphocytes % (A) 18 %; MCH 26.4 pg (25.0-35.0); MCHC 29.5 g/dL (31.0-37.0); MCV 89.5 fL (80.0-100.0); Mean Platelet Volume 7.9; Monocytes # (A) 0.4 k/uL (0-1.0); Monocytes % (A) 5 %; Neutrophils # (A) 5.2 k/uL (1.3-7.7); Neutrophils % (A) 71 %; Non-African American GFR(CKD) >90 (>60 ml/min/1.73 sqM); Platelet Count 580 k/uL (150-450); Poikilocytosis Slight; Potassium 3.6 mmol/L (3.5-5.1); RBC 3.52 m/uL (3.80-5.40); RDW 15.5 % (11.5-15.5); Sodium 140 mmol/L (137-145); WBC 7.3 k/uL (3.8-10.6)
[2021-06-03] MEDS ORDERED: POTASSIUM BICARBONATE/CIT AC 20 MEQ TABLET.EFF NG-TUBE SCH (08:00)
[2021-06-03 08:02] LABS: Glucose,Whole Blood 163 mg/dL (75-99)
--- NOTE | 2021-06-03 08:15 | XR ---
EXAMINATION TYPE: XR chest 1V portable DATE OF EXAM: 06/03/2021 COMPARISON: 06/02/2021 HISTORY: SOB, Follow Up FINDINGS: Indwelling tubes and catheters are unchanged. Diffuse bilateral patchy infiltrates persist unchanged. Stable appearance of the cardio-mediastinal structures at this time. Pleural effusion unchanged. IMPRESSION: 1. Stable portable chest. Clinical correlation and follow up until resolution is recommended.
[2021-06-03] MEDS: ESCITALOPRAM 20 MG TAB PO SCH (08:54)
[2021-06-03] MEDS: ZINC SULFATE 220 MG CAP PO SCH (08:54)
[2021-06-03] MEDS: PREGABALIN 75 MG CAP PO SCH ×3 (08:54→21:33)
[2021-06-03] MEDS: CHLORHEXIDINE GLUCONATE 15 ML CUP MUCOUS MEM SCH ×2 (08:54→21:33)
[2021-06-03] MEDS: NYSTATIN 100,000 UNIT/ML SUSP 500,000 UNIT/5 ML CUP PO SCH ×2 (08:54→12:12)
[2021-06-03] MEDS: CHOLECALCIFEROL 25 MCG (1000 IU) TABLET PO SCH (08:55)
[2021-06-03] MEDS: PANTOPRAZOLE 40 MG/10 ML VIAL IVP SCH (08:55)
[2021-06-03] MEDS: FLUCONAZOLE IN NACL,ISO-OSM 100 MG in SALINE 1 50ML.BAG IVPB SCH (08:56)
--- NOTE | 2021-06-03 09:59 | P.PN ---
Subjective Progress Note Date: 06/03/21 The patient is seen today 06/03/2021 in follow-up in the intensive care unit. She is currently awake and alert and resting fairly comfortably in bed. She is on a trach collar at 40% FiO2 with O2 saturations in the 90s. She's been a state afebrile. Hemodynamically stable. Currently on 0.9% normal saline at 40 miles per hour. She is being nourished with vital AF 1.2 at 20 ML's per hour with a goal of 50 ML's per hour. She does have some complaints of abdominal discomfort at higher rates. She is also having issues with diarrhea FMS remains in place. Microbiology is negative. She's currently on Diflucan only. This x- ray remains stable. There is some diffuse bilateral patchy infiltrates that are unchanged. She is status post 2 units packed red blood cells this admission. Hemoglobin 9.3. White count 7.3. Sodium 140. Potassium 3.6. Creatinine 0.43. Glucose 192. Objective - Vital Signs Vital signs: Vital Signs Temp 97.8 F 06/03/21 04:00 Pulse 98 06/03/21 07:00 Resp 18 06/03/21 07:00 BP 134/88 06/03/21 07:00 Pulse Ox 95 06/03/21 07:00 Intake & Output 06/02/21 06/03/21 06/03/21 18:59 06:59 18:59 Intake Total 520 445 35 Output Total 785 725 200 Balance -265 -280 -165 Weight 52.2 kg 51.3 kg Intake: IV 520 240 20 Normal Saline 0.9 @ KVO 520 240 20 Tube Feeding 130 15 Other 75 Output: Urine 785 725 100 Stool 100 Other: Voiding Method Indwelling Catheter Indwelling Catheter - Exam GENERAL EXAM: Awake and alert, oriented 3 trached 36-year-old frail looking female, on 40% trach collar with a pulse ox of 95% comfortable in no apparent distress. HEAD: Normocephalic/atraumatic. EYES: Normal reaction of pupils, equal size. Conjunctiva pink, sclera white. NOSE: Clear with pink turbinates. MOUTH: She has ulcerations of her oral cavity THROAT: No erythema or exudates. NECK: No masses, no JVD, no thyroid enlargement, no adenopathy. Midline tracheostomy in place, on 40% trach collar, breathing comfortably patient is clean dry and intact CHEST: No chest wall deformity. Symmetrical expansion. LUNGS: Diminished air entry with few scattered rhonchi bilaterally. CVS: Regular rate and rhythm, normal S1 and S2, no gallops, no murmurs, no rubs ABDOMEN: Soft, nontender. No hepatosplenomegaly, normal bowel sounds, no guarding or rigidity. PEG tube covered with a surgical dressing EXTREMITIES: No clubbing, no edema, no cyanosis, 2+ pulses and upper and lower extremities. MUSCULOSKELETAL: Muscle strength and tone normal. SPINE: No scoliosis or deformity SKIN: No rashes CENTRAL NERVOUS SYSTEM: Awake and alert, following command No focal deficits, tone is normal in all 4 extremities. - Labs CBC & Chem 7: 06/03/21 05:44 06/03/21 05:44 Labs: Abnormal Lab Results - Last 24 Hours (Table) 06/02/21 06/02/21 06/02/21 Range/Units 11:45 15:52 16:13 RBC (3.80-5.40) m/uL Hgb (11.4-16.0) gm/dL Hct (34.0-46.0) % MCHC (31.0-37.0) g/dL Plt Count (150-450) k/uL Creatinine (0.52-1.04) mg/dL Glucose (74-99) mg/dL POC Glucose (mg/dL) 159 H 160 H (75-99) mg/dL Calcium (8.4-10.2) mg/dL Phosphorus 2.4 L (2.5-4.5) mg/dL 06/02/21 06/03/21 06/03/21 Range/Units 20:51 00:28 05:25 RBC (3.80-5.40) m/uL Hgb (11.4-16.0) gm/dL Hct (34.0-46.0) % MCHC (31.0-37.0) g/dL Plt Count (150-450) k/uL Creatinine (0.52-1.04) mg/dL Glucose (74-99) mg/dL POC Glucose (mg/dL) 174 H 198 H 193 H (75-99) mg/dL Calcium (8.4-10.2) mg/dL Phosphorus (2.5-4.5) mg/dL 06/03/21 06/03/21 06/03/21 Range/Units 05:44 05:44 08:00 RBC 3.52 L (3.80-5.40) m/uL Hgb 9.3 L (11.4-16.0) gm/dL Hct 31.5 L (34.0-46.0) % MCHC 29.5 L (31.0-37.0) g/dL Plt Count 580 H (150-450) k/uL Creatinine 0.43 L (0.52-1.04) mg/dL Glucose 192 H (74-99) mg/dL POC Glucose (mg/dL) 163 H (75-99) mg/dL Calcium 7.9 L (8.4-10.2) mg/dL Phosphorus (2.5-4.5) mg/dL Microbiology - Last 24 Hours (Table) 06/01/21 05:19 Blood Culture - Preliminary Blood No Growth after 48 hours 05/22/21 09:44 Acid Fast Bacilli Smear - Final Bronchial Washings - Right Acid Fast Bacilli Culture - Preliminary Assessment and Plan Assessment: 1 Acute hypoxic respiratory failure related to worsening and progression of pneumonia, and chest x-ray showing patchy consolidation involving the right midlung, right upper lobe and right lower lobe in addition to extensive consolidation of the left lung with possibly some cavitation. Suffered acute respiratory arrest on 05/21/2021 and was intubated, patient was successfully weaned and extubated on 05/23/2021 however failed again and had to be reintubated later that evening on 05/23/2021. In view of multiple episodes of respiratory failure patient was considered for tracheostomy and PEG tube placement for weaning. Patient is status post bronchoscopy with bronchoalveolar lavage on 05/23/2021, so far BAL cultures are all negative. Patient is status post tracheostomy and PEG tube placement on 05/29/2021, tolerating trach collar trials, currently on 40% trach collar 2 Altered mental status secondary to hypoglycemia. Patient had recovered, and she was back to baseline neurologically. Currently lightly sedated, patient is still intubated, but patient is following all commands 3 History of diabetes, and recent episode of diabetic ketoacidosis, recovered. Levemir insulin has been discontinued and patient is currently covered with sliding scale NovoLog, her last episode of hypoglycemia was on 05/19/2021 with a blood sugar of 45. No recurrence of hypoglycemia since 4 History of syncopal episodes related to hypoglycemia 5 History of migraine cephalgia 6 History of diabetic neuropathy 7 Chronic constipation 8 Chronic low back pain 9 Tongue and oral pharyngeal candidiasis, with ulcerations 10 Previous history of MRSA infection in the laceration of the scalp 11 Chronic anemia with interval drop in hemoglobin down to 6.1 without evidence of any active GI bleeding, status post transfusion with 2 unit of packed red blood cells her hemoglobin 9.3 Plan: The patient was seen and evaluated today Chest x-ray and labs reviewed Currently off antibiotics Remains on Diflucan Tolerating trach collar at 40% FiO2 Not tolerating full tube feedings currently 20 ML's with a goal of 50 Dietitian to reevaluate due to complaints of abdominal discomfort Discharge planning in place for subacute rehabilitation We will continue to follow I, the cosigning physician, performed a history & physical examination of the patient. Lungs sounds with bilateral scattered rhonchi. Maintaining good O2 saturations in the 90s on 40% FiO2 via trach collar. I discussed the assessment and plan of care with my nurse practitioner, Daniela Foreman. I attest to the above note as dictated by her.
[2021-06-03] MEDS: ONDANSETRON 4 MG/2 ML VIAL IVP PRN ×2 (11:51→19:08)
[2021-06-03] MEDS: FOLIC ACID 1 MG TAB PO SCH (11:55)
[2021-06-03] MEDS: MULTIVITAMINS, THERA 1 EACH TAB PO SCH (11:55)
[2021-06-03 12:00] LABS: Glucose,Whole Blood 160 mg/dL (75-99)
--- NOTE | 2021-06-03 15:14 | P.PN ---
Subjective Progress Note Date: 06/03/21 CHIEF COMPLAINT: Hypoglycemia HISTORY OF PRESENT ILLNESS: The patient currently in the ICU with acute hypoxic respiratory failure secondary to pneumonia. Patient is status post tracheostomy and PEG tube placement. Patient's tube feeds have been resumed. Dietitian is following closely. They're titrating them slowly due to patient having nausea with the feedings. No vomiting. She is having bowel movements. No pain reported. She is tolerating trach collar. Afebrile. WBC 7.3 hemoglobin 9.3 PHYSICAL EXAM: VITAL SIGNS: Reviewed. GENERAL: no acute distress. HEENT: No sclera icterus. Extraocular movements grossly intact. Moist buccal mucosa. Head is atraumatic, normocephalic. Trachea site clean dry and intact ABDOMEN: Soft. Nondistended. Nontender. PEG tube site clean dry and intact ASSESSMENT: 1. Acute hypoxic respiratory failure secondary to pneumonia. Patient was extubated and required to be reintubated on 05/23/2021. Patient status post tracheostomy placement 2. Severe protein calorie malnutrition. Patient status post PEG tube placement PLAN: -Titrate tube feedings per dietitian -Continue Reglan and Zofran -Continue ICU management and supportive care Physician Community Relations Director note has been reviewed by physician. Signing provider agrees with the documented findings, assessment, and plan of care. Objective - Vital Signs Vital signs: Vital Signs Temp 98 F 06/03/21 12:00 Pulse 96 06/03/21 13:00 Resp 22 06/03/21 13:00 BP 142/92 06/03/21 13:00 Pulse Ox 97 06/03/21 13:00 Intake & Output 06/02/21 06/03/21 06/03/21 18:59 06:59 18:59 Intake Total 520 445 535 Output Total 785 725 640 Balance -265 -280 -105 Weight 52.2 kg 51.3 kg Intake: IV 520 240 260 Normal Saline 0.9 @ KVO 520 240 220 Sodium Chloride 0.9% 1, 40 000 ml @ 40 mls/hr IV . Q24H [facility] Rx#:[id number] Tube Feeding 130 145 Other 75 130 Output: Urine 785 725 440 Stool 200 Other: Voiding Method Indwelling Catheter Indwelling Catheter Indwelling Catheter # Voids 1 - Labs CBC & Chem 7: 06/03/21 05:44 06/03/21 05:44 Labs: Abnormal Lab Results - Last 24 Hours (Table) 06/02/21 06/02/21 06/02/21 Range/Units 15:52 16:13 20:51 RBC (3.80-5.40) m/uL Hgb (11.4-16.0) gm/dL Hct (34.0-46.0) % MCHC (31.0-37.0) g/dL Plt Count (150-450) k/uL Creatinine (0.52-1.04) mg/dL Glucose (74-99) mg/dL POC Glucose (mg/dL) 160 H 174 H (75-99) mg/dL Calcium (8.4-10.2) mg/dL Phosphorus 2.4 L (2.5-4.5) mg/dL Procalcitonin (0.02-0.09) ng/mL 06/03/21 06/03/21 06/03/21 Range/Units 00:28 05:25 05:44 RBC (3.80-5.40) m/uL Hgb (11.4-16.0) gm/dL Hct (34.0-46.0) % MCHC (31.0-37.0) g/dL Plt Count (150-450) k/uL Creatinine (0.52-1.04) mg/dL Glucose (74-99) mg/dL POC Glucose (mg/dL) 198 H 193 H (75-99) mg/dL Calcium (8.4-10.2) mg/dL Phosphorus (2.5-4.5) mg/dL Procalcitonin 0.13 H (0.02-0.09) ng/mL 06/03/21 06/03/21 06/03/21 Range/Units 05:44 05:44 08:00 RBC 3.52 L (3.80-5.40) m/uL Hgb 9.3 L (11.4-16.0) gm/dL Hct 31.5 L (34.0-46.0) % MCHC 29.5 L (31.0-37.0) g/dL Plt Count 580 H (150-450) k/uL Creatinine 0.43 L (0.52-1.04) mg/dL Glucose 192 H (74-99) mg/dL POC Glucose (mg/dL) 163 H (75-99) mg/dL Calcium 7.9 L (8.4-10.2) mg/dL Phosphorus (2.5-4.5) mg/dL Procalcitonin (0.02-0.09) ng/mL 06/03/21 Range/Units 11:58 RBC (3.80-5.40) m/uL Hgb (11.4-16.0) gm/dL Hct (34.0-46.0) % MCHC (31.0-37.0) g/dL Plt Count (150-450) k/uL Creatinine (0.52-1.04) mg/dL Glucose (74-99) mg/dL POC Glucose (mg/dL) 160 H (75-99) mg/dL Calcium (8.4-10.2) mg/dL Phosphorus (2.5-4.5) mg/dL Procalcitonin (0.02-0.09) ng/mL Microbiology - Last 24 Hours (Table) 06/01/21 05:19 Blood Culture - Preliminary Blood No Growth after 48 hours 05/22/21 09:44 Acid Fast Bacilli Smear - Final Bronchial Washings - Right Acid Fast Bacilli Culture - Preliminary
--- NOTE | 2021-06-03 15:21 | P.PN ---
Subjective Progress Note Date: 06/03/21 This is a 36-year-old female who was recently admitted with changes in mental status along with significant hypoglycemia and is being closely monitored. Patient continues on 100% BiPAP with continued dyspnea and pulmonary following closely. Patient also found to have bilateral pneumonia possible aspiration and also a fungal urinary tract infection. Patient continues in the ICU for close monitoring and infectious disease is also following. Patient continues on IV antibiotics in the form of meropenem along with fluconazole and vancomycin and will continue. Multiple family members at the bedside. Recommend repeat chest x-ray along with labs in the morning. White blood Count elevated at 19.1. Potassium is 3.4 and magnesium 1.6 and will replace per protocol. 05/21/2021 She is seen in follow-up continues to be in the ICU being closely monitored. Patient was maintained on BiPAP and attempting airvo to allow for oral intake. Only at the bedside with multiple questions and concerns answered to the best of our ability. Patient's mentation is improved and answering questions and responding to commands appropriately. Chest x-ray today shows bilateral diffuse airspace disease with small effusion, stable with no pneumothorax noted. Infectious disease following an patient is continued on IV fluconazole along with meropenem. Blood cultures remain negative. Blood count is mildly elevated at 20.2. Patient is afebrile. Recommend repeat labs and chest x-ray in the a.m. She denies any chest pains or palpitations at this time. Patient tolerating oral intake and recommend strict aspiration precautions of head of the bed elevated 30-45 at all times and supervision with meals. 05/22/2021 Patient is seen in follow up and being closely monitored in the ICU with multiple medical consultations following. Patient was an A team this morning for acute respiratory arrest that was witnessed by nursing staff at the bedside and was changing the patient after a bowel movement and became apneic and code blue was initiated. Patient did not lose pulse but was intubated and placed on sedation. Chest xray showed moderately severe pulmonary edema without change compared to yesterday. Patient was given a dose of lasix. Patient is on some pressor support as well. Pulmonary following and patient underwent bronchoscopy with fluid analysis sent and pending. Patient is continued on IV merrem and vancomycin with ID following closely. Await finalized cultures. WBC elevated as well at 26.8. 05/23/2021 Patient is seen and evaluated this morning and continues in critical condition in the ICU. Mother at the bedside and patient was extubated this morning. Patient is currently resting on 2L of02 via NC with oxygen saturation above 90%. Patient is extremely lethargic but arousable. Chest xray shows persistent but improving airspace disease, right greater than left. Mother is at the bedside. May Patient is seen and evaluated today in follow-up continues to be in the ICU being closely monitored. Patient continues on mechanical vent with sedation and attempts at weaning continue. Pulmonary and ID following closely. Patient continues with FI02 of 60%. Patient also continues on IV fluconazole and Zosyn and will continue. Chest xray today shows bilateral multifocal and confluent opacities redemonstrated consistent with covid 19 infection and or ARDS is redemonstrated with no significant change from yesterday. 05/27/2021 Patient is seen and evaluated this morning and continues on mechanical ventilation and lightly sedated on propofol although patient is awake and following commands although fatigues easily. General surgery consulted for PEG and trach placement for pulmonary recycling center operator recommendations. Infectious disease following an patient is maintained on fluconazole along with IV Zosyn and will continue. Patient continues with multiple episodes of loose stool with fecal management system and C. diff testing is ordered. Potassium mildly low at 3.4 and will replace per protocol. Magnesium is 2.2 today. Chest x-ray today shows patchy bilateral lung infiltrates that are stable. 05/28/2021 Patient is seen in follow-up in the ICU continues to be closely monitored with multiple medical consultations following. Plan for today was possible peg and trach placement although surgery extremely busy and will likely occur tomorrow. Patient continues on IV abx with ID following closely. Patient continues on mechanical vent with an FI02 of 50%. Minimally sedated. 05/29/2021 Patient is seen this morning status post PEG tube and tracheostomy placement and continues on mechanical vent with an FiO2 of 50% and PEEP is 5. Mother at the bedside with questions and concerns answered. PEG tube on hold currently for 24 hours and awaiting clearance from surgery to start tube feedings. Chest x-ray today shows bilateral multifocal and confluent opacification greatest in the right lung are redemonstrated consistent with COVID-19 and/or arts with no significant change from previous day. Patient is awake and nodding yes and no appropriately. 05/30/2021 Patient is seen today currently sitting up in the chair and recently placed on trach collar as she is status post tracheostomy and PEG tube placement yesterday. Tube feedings were started on the PEG tube although patient became nauseated and currently on hold and will continue to monitor. Patient continues with loose stool and does have fecal management system that is intact. Recommen d to keep the rectal tubing as patient experiences more frequent episodes of loose stool with feedings. Trach collar is 50% FiO2. Patient continues on IV zosyn with ID following. 05/31/2021 Patient evaluated today in the ICU resting in bed. [place] catheter and fecal management system in place. Oxygenation maintained on trach collar with Fi02 of 50% and oxygen saturation of 96%. Patient does present with congested cough. She is nauseas today and feels like she wants to throw up. Nurse reports minimal residual volumes with feedings. Tube feedings were placed on hold, and she will be placed to suction via PEG tube. Concerns for aspiration. She is getting IV zofran and IV protonix. Repeat chest xray today shows slight interval worsening of multifocal airspace opacities right greater than left. Labs today show WBC 15.2, hgb 9.2, platelet count 533, sodium 137, potassium 4.2, glucose in the 180s. Patient with low grade fever 99.3, heart rate 108, respirations 17, blood pressure 116/73, 96% on trach collar. All cultures negative. Continues on IV Zosyn and IV fluconazole. 06/01/2021 Patient evaluated today in bed with HOB around 30. Per RN she was up in the chair yesterday. Indwelling catheter and Fecal management system in place. Patient is on trach colloar with FiO2 50% with oxygen saturation of 97%. Blood pressures are marginal at 98/76, respirations 14, heart rate 105, afebrile. Patient to feedings were placed on hold yesterday with PEG tube to suction. She still complains of ongoing nausea which is not improved. She is no longer dry heaving on my assessment. Patient is in a negative fluid balance. We will start patient's IV hydration with normal saline at 75 mL per hour. She continues on IV Zofran. She is also on IV Tylenol, IV fluconazole, IV Zosyn. Chest x-ray shows correlation for pneumonia. Blood fungal culture is currently pending. 06/02/2021 Patient is seen and evaluated in follow up this morning and continues to be in the ICU being closely monitored. Patient is currently up in the chair and on trach collar at 60% although per nursing staff being weaned down to 40%. Patient persists with nausea and having high residuals and tube feeds on hold. Reglan scheduled being added and will resume tube feeds once nausea improves and start slowly on tube feeds. Chest xray today shows patchy and confluent bilateral airspace disease right greater than left that shows slight interval worsening. Patient remains on IV zosyn and fluconazole with ID following as well. 06/03/2021 Patient is seen in follow-up this morning lethargic although arousable and continues on trach collar and tolerating well at 60% FiO2. Currently being titrated down to 40% and oxygen saturations remained above 95%. Patient is afebrile and no reports of worsening shortness of breath or chest pain. Chest x-ray today shows stable portable chest with diffuse bilateral patchy infiltrates persist and unchanged and pleural effusion also unchanged. Multiple medical consultations including general surgery, infectious disease and pulmonary recycling center operator following. Family is now agreeable to [facility] for some rehab for strength and mobility and social work following and working on accepting facility. Patient continues on antifungal and is off IV antibiotics with infectious disease following closely. Labs: WBC is 7.3, hemoglobin is 9.3, platelets are 580, sodium is 140, potassium 3.6, BUN 7, creatinine 0.43, calcium 7.9, pro calcitonin 0.13. Review of systems: Constitutional: reports of fatigue, no reports of fever, or chills Cardiovascular: No reports of chest pain or palpitations Respiratory: No reports of worsening shortness of breath or cough status post t racheostomy and trach collar GI: No reports of nausea, vomiting, reports continued loose stool, high residuals and tube feedings not tolerating well : No reports of dysuria or retention Neurovascular: Reports of generalized weakness All medications have been reviewed Active Medications Acetaminophen (Acetaminophen Tab 325 Mg Tab) 650 mg PO Q6HR PRN PRN Reason: Fever and/ or Mild Pain Last Admin: 05/23/21 04:35 Dose: 650 mg Documented by: Amitriptyline HCl (Amitriptyline Hcl 10 Mg Tab) 10 mg PO HS [facility] Last Admin: 06/02/21 20:45 Dose: 10 mg Documented by: Chlorhexidine Gluconate (Chlorhexidine Gluconate 15 Ml Cup) 15 ml MUCOUS MEM BID [facility] Last Admin: 06/03/21 08:54 Dose: 15 ml Documented by: Cholecalciferol (Cholecalciferol 25 Mcg (1000 Iu) Tablet) 50 mcg PO DAILY [facility] Last Admin: 06/03/21 08:55 Dose: 50 mcg Documented by: Escitalopram Oxalate (Escitalopram 20 Mg Tab) 20 mg PO DAILY [facility] Last Admin: 06/03/21 08:54 Dose: 20 mg Documented by: Folic Acid (Folic Acid 1 Mg Tab) 1 mg PO DAILY@1200 [facility] Last Admin: 06/03/21 11:55 Dose: 1 mg Documented by: Hydromorphone HCl (Hydromorphone 0.5 Mg/0.5 Ml Syringe) 0.5 mg IVP Q3HR PRN PRN Reason: Severe Pain Last Admin: 06/02/21 20:55 Dose: 0.5 mg Documented by: Fluconazole/Sodium Chloride (100 mg/ IV Solution) 50 mls @ 50 mls/hr IVPB DAILY [facility] Last Admin: 06/03/21 08:56 Dose: 50 mls/hr Documented by: Acetaminophen 1,000 mg/ IV (Solution) 100 mls @ 400 mls/hr IVPB Q6HR PRN PRN Reason: Fever Stop: 06/09/21 08:05 Sodium Chloride (Saline 0.9%) 1,000 mls @ 40 mls/hr IV .Q24H [facility] Last Admin: 06/02/21 17:51 Dose: 40 mls/hr Documented by: Insulin Aspart (Insulin Aspart (Novolog) 100 Unit/Ml Vial) 0 unit SQ Q4H [facility]; Protocol Last Admin: 06/03/21 12:12 Dose: 1 unit Documented by: Insulin Detemir (Insulin Detemir (Levemir) 100 Unit/Ml Syr) 20 unit SQ HS [facility] Last Admin: 06/02/21 20:53 Dose: Not Given Documented by: Metoclopramide HCl (Metoclopramide 5 Mg/Ml 2 Ml Vial) 5 mg IVP Q6HR PRN PRN Reason: Nausea And Vomiting Last Admin: 06/02/21 15:30 Dose: 5 mg Documented by: Miscellaneous Information (Magnesium Replacement Protocol 1 Each Misc) 1 each MISCELLANE DAILY PRN; Protocol PRN Reason: Per Protocol Miscellaneous Information (Potassium Replacement Protocol 1 Each Misc) 1 each MISCELLANE DAILY PRN; Protocol PRN Reason: Per Protocol Montelukast Sodium (Montelukast 10 Mg Tab) 10 mg PO HS [facility] Last Admin: 06/02/21 20:45 Dose: 10 mg Documented by: Multivitamins (Multivitamins, Thera 1 Each Tab) 1 each PO DAILY@1200 [facility] Last Admin: 06/03/21 11:55 Dose: 1 each Documented by: Ondansetron HCl (Ondansetron 4 Mg/2 Ml Vial) 4 mg IVP Q6HR PRN PRN Reason: Nausea And Vomiting Last Admin: 06/03/21 11:51 Dose: 4 mg Documented by: Pantoprazole Sodium (Pantoprazole 40 Mg/10 Ml Vial) 40 mg IVP DAILY [facility] Last Admin: 06/03/21 08:55 Dose: 40 mg Documented by: Pregabalin (Pregabalin 75 Mg Cap) 75 mg PO TID [facility] Last Admin: 06/03/21 08:54 Dose: 75 mg Documented by: Sumatriptan Succinate (Sumatriptan Succinate 50 Mg Tab) 100 mg PO DAILY PRN PRN Reason: Migraine Headache Thiamine HCl (Thiamine 100 Mg Tab) 100 mg PO BID-W/MEALS [facility] Last Admin: 06/03/21 05:41 Dose: 100 mg Documented by: Zinc Sulfate (Zinc Sulfate 220 Mg Cap) 220 mg PO DAILY [facility] Last Admin: 06/03/21 08:54 Dose: 220 mg Documented by: Physical Exam: Gen: This is a 36-year-old female who was intubated and sedated status post tracheostomy placement, thin built, cachectic. oxygen saturation is 97% on 60% FiO2 trach collar currently being weaned down to 40% FiO2 HEENT: Head is atraumatic, normocephalic. Pupils equal, round. Sclerae is anicteric. oral mucosa is dry and white patches noted on tongue, cracking and lesions noted on the lips NECK: Supple. No JVD. No lymphadenopathy. No thyromegaly. LUNGS: Breath sounds diminished with scattered rhonchi and crackles noted. No intercostal retractions. HEART: S1, S2 are muffled ABDOMEN: Soft. Bowel sounds are present. No masses. No tenderness. peg tube noted EXTREMITIES: No pedal edema. No calf tenderness. NEUROLOGICAL: Patient is awake, alert and oriented x3. Nodding yes and no to questions and commands . 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 Infectious disease and pulmonary following closely and patient remains on FI02 is down to 40% with a PEEP of 5 patient is awake and off sedation and maintained on trach collar. Tube feedings on hold for high residuals and patient continues with nausea. Reglan scheduled being added. Slowly resuming tube feedings and patient continues with loose stool and fecal management system may have a component of IBS. Mother at the bedside and her questions and concerns were answered to the best of our ability. Mother is now agreeable to ECF and [place] is revealing and will discuss with director social about accepting facilities. Recommend repeat labs and follow-up chest x- ray in the morning. Recommend to keep the bed elevated 30-45 at all times and maintain aspiration precautions. Blood cultures remain negative. ID following and maintained on fluconazole. IV antibiotics have been discontinued. Recommend to continue to monitor blood sugars closely. If patient remains stable possible transfer out of ICU with possible transfer to ECF in the next 24-48 hours. Objective - Vital Signs Vital signs: Vital Signs Temp 98.1 F 06/03/21 08:00 Pulse 96 06/03/21 10:00 Resp 19 06/03/21 10:00 BP 129/95 06/03/21 10:00 Pulse Ox 95 06/03/21 10:00 Intake & Output 06/02/21 06/03/21 06/03/21 18:59 06:59 18:59 Intake Total 520 445 235 Output Total 785 725 480 Balance -265 -280 -245 Weight 52.2 kg 51.3 kg Intake: IV 520 240 80 Normal Saline 0.9 @ KVO 520 240 80 Tube Feeding 130 75 Other 75 80 Output: Urine 785 725 280 Stool 200 Other: Voiding Method Indwelling Catheter Indwelling Catheter Indwelling Catheter # Voids 1 - Labs CBC & Chem 7: 06/03/21 05:44 06/03/21 05:44 Labs: Abnormal Lab Results - Last 24 Hours (Table) 06/02/21 06/02/21 06/02/21 Range/Units 11:45 15:52 16:13 RBC (3.80-5.40) m/uL Hgb (11.4-16.0) gm/dL Hct (34.0-46.0) % MCHC (31.0-37.0) g/dL Plt Count (150-450) k/uL Creatinine (0.52-1.04) mg/dL Glucose (74-99) mg/dL POC Glucose (mg/dL) 159 H 160 H (75-99) mg/dL Calcium (8.4-10.2) mg/dL Phosphorus 2.4 L (2.5-4.5) mg/dL Procalcitonin (0.02-0.09) ng/mL 06/02/21 06/03/21 06/03/21 Range/Units 20:51 00:28 05:25 RBC (3.80-5.40) m/uL Hgb (11.4-16.0) gm/dL Hct (34.0-46.0) % MCHC (31.0-37.0) g/dL Plt Count (150-450) k/uL Creatinine (0.52-1.04) mg/dL Glucose (74-99) mg/dL POC Glucose (mg/dL) 174 H 198 H 193 H (75-99) mg/dL Calcium (8.4-10.2) mg/dL Phosphorus (2.5-4.5) mg/dL Procalcitonin (0.02-0.09) ng/mL 06/03/21 06/03/21 06/03/21 Range/Units 05:44 05:44 05:44 RBC 3.52 L (3.80-5.40) m/uL Hgb 9.3 L (11.4-16.0) gm/dL Hct 31.5 L (34.0-46.0) % MCHC 29.5 L (31.0-37.0) g/dL Plt Count 580 H (150-450) k/uL Creatinine 0.43 L (0.52-1.04) mg/dL Glucose 192 H (74-99) mg/dL POC Glucose (mg/dL) (75-99) mg/dL Calcium 7.9 L (8.4-10.2) mg/dL Phosphorus (2.5-4.5) mg/dL Procalcitonin 0.13 H (0.02-0.09) ng/mL 06/03/21 Range/Units 08:00 RBC (3.80-5.40) m/uL Hgb (11.4-16.0) gm/dL Hct (34.0-46.0) % MCHC (31.0-37.0) g/dL Plt Count (150-450) k/uL Creatinine (0.52-1.04) mg/dL Glucose (74-99) mg/dL POC Glucose (mg/dL) 163 H (75-99) mg/dL Calcium (8.4-10.2) mg/dL Phosphorus (2.5-4.5) mg/dL Procalcitonin (0.02-0.09) ng/mL Microbiology - Last 24 Hours (Table) 06/01/21 05:19 Blood Culture - Preliminary Blood No Growth after 48 hours 05/22/21 09:44 Acid Fast Bacilli Smear - Final Bronchial Washings - Right Acid Fast Bacilli Culture - Preliminary
[2021-06-03] MEDS: SODIUM CHLORIDE 0.9% 1,000 ML IV SCH (15:43)
[2021-06-03 16:06] LABS: Glucose,Whole Blood 189 mg/dL (75-99)
[2021-06-03] MEDS: POTASSIUM CHLORIDE 20 MEQ in WATER FOR INJECTION 1 100ML.BAG IVPB SCH ×2 (18:09→21:31)
[2021-06-03 20:04] LABS: Glucose,Whole Blood 181 mg/dL (75-99)
[2021-06-03 21:12] LABS: Glucose,Whole Blood 206 mg/dL (75-99)
[2021-06-03] MEDS: INSULIN DETEMIR (LEVEMIR) 100 UNIT/ML SYR SQ SCH (21:32)
[2021-06-03] MEDS: MONTELUKAST 10 MG TAB PO SCH (21:32)
[2021-06-03] MEDS: HYDROmorphone 0.5 MG/0.5 ML SYRINGE IVP PRN (21:32)
[2021-06-03] MEDS: AMITRIPTYLINE HCL 10 MG TAB PO SCH (21:33)
--- NOTE | 2021-06-03 21:39 | P.PN ---
Subjective Progress Note Date: 06/03/21 Principal diagnosis: Pneumonia Interval history : The patient is a 36-year-old female who presented to the hospital with an episode of unresponsiveness and concern for aspiration pneumonia. The patient subsequently did have worsening of her respiratory status, requiring intubation x2.Currently on the vent. The patient is status post trach and PEG completed 05/29/2021 On today's evaluation, 06/03/2021, The patient denies any fever or any chills, the patient is breathing comfortably on the trach collar, patient denies any chest pain , no further nausea no vomiting tolerating her tube feeds The patient is still having significant diarrhea for the patient did have a fecal management system Objective - Vital Signs Vital signs: Vital Signs Temp 98 F 06/03/21 12:00 Pulse 96 06/03/21 13:00 Resp 22 06/03/21 13:00 BP 142/92 06/03/21 13:00 Pulse Ox 97 06/03/21 13:00 Intake & Output 06/02/21 06/03/21 06/03/21 18:59 06:59 18:59 Intake Total 520 445 535 Output Total 785 725 640 Balance -265 -280 -105 Weight 52.2 kg 51.3 kg Intake: IV 520 240 260 Normal Saline 0.9 @ KVO 520 240 220 Sodium Chloride 0.9% 1, 40 000 ml @ 40 mls/hr IV . Q24H [facility] Rx#:[id number] Tube Feeding 130 145 Other 75 130 Output: Urine 785 725 440 Stool 200 Other: Voiding Method Indwelling Catheter Indwelling Catheter Indwelling Catheter # Voids 1 - Exam General description is a middle-aged female up in the chair in no distress Respiratory system:Unlabored breathing, decreased intensity of breath sounds. No wheeze. Heart S1, S2.Regular rate and rhythm. Abdomen soft, no tenderness Extremities: No edema feet - Labs CBC & Chem 7: 06/03/21 05:44 06/03/21 17:10 Labs: Abnormal Lab Results - Last 24 Hours (Table) 06/02/21 06/02/21 06/02/21 Range/Units 15:52 16:13 20:51 RBC (3.80-5.40) m/uL Hgb (11.4-16.0) gm/dL Hct (34.0-46.0) % MCHC (31.0-37.0) g/dL Plt Count (150-450) k/uL Creatinine (0.52-1.04) mg/dL Glucose (74-99) mg/dL POC Glucose (mg/dL) 160 H 174 H (75-99) mg/dL Calcium (8.4-10.2) mg/dL Phosphorus 2.4 L (2.5-4.5) mg/dL Procalcitonin (0.02-0.09) ng/mL 06/03/21 06/03/21 06/03/21 Range/Units 00:28 05:25 05:44 RBC (3.80-5.40) m/uL Hgb (11.4-16.0) gm/dL Hct (34.0-46.0) % MCHC (31.0-37.0) g/dL Plt Count (150-450) k/uL Creatinine (0.52-1.04) mg/dL Glucose (74-99) mg/dL POC Glucose (mg/dL) 198 H 193 H (75-99) mg/dL Calcium (8.4-10.2) mg/dL Phosphorus (2.5-4.5) mg/dL Procalcitonin 0.13 H (0.02-0.09) ng/mL 06/03/21 06/03/21 06/03/21 Range/Units 05:44 05:44 08:00 RBC 3.52 L (3.80-5.40) m/uL Hgb 9.3 L (11.4-16.0) gm/dL Hct 31.5 L (34.0-46.0) % MCHC 29.5 L (31.0-37.0) g/dL Plt Count 580 H (150-450) k/uL Creatinine 0.43 L (0.52-1.04) mg/dL Glucose 192 H (74-99) mg/dL POC Glucose (mg/dL) 163 H (75-99) mg/dL Calcium 7.9 L (8.4-10.2) mg/dL Phosphorus (2.5-4.5) mg/dL Procalcitonin (0.02-0.09) ng/mL 06/03/21 Range/Units 11:58 RBC (3.80-5.40) m/uL Hgb (11.4-16.0) gm/dL Hct (34.0-46.0) % MCHC (31.0-37.0) g/dL Plt Count (150-450) k/uL Creatinine (0.52-1.04) mg/dL Glucose (74-99) mg/dL POC Glucose (mg/dL) 160 H (75-99) mg/dL Calcium (8.4-10.2) mg/dL Phosphorus (2.5-4.5) mg/dL Procalcitonin (0.02-0.09) ng/mL Microbiology - Last 24 Hours (Table) 06/01/21 05:19 Blood Culture - Preliminary Blood No Growth after 48 hours 05/22/21 09:44 Acid Fast Bacilli Smear - Final Bronchial Washings - Right Acid Fast Bacilli Culture - Preliminary Assessment and Plan (1) Pneumonia Current Visit: Yes Status: Acute Code(s): J18.9 - PNEUMONIA, UNSPECIFIED ORGANISM SNOMED Code(s): 551943880 Plan: 1. Patient with acute respiratory failure, likely multifactorial, with concern for possible component of aspiration pneumonia. Patient failed to be extubated and is status post trach and PEG, The patient's bronch culture has been negative for any resistant pathogen , The patient has received more than 2 weeks of IV antibiotic therapy which should be more than enough and the white count normalized we Zosyn has been discontinued and monitor the patient closely off antibiotics 2patient developing diarrhea possible antibiotic associated stool for C. diff was negative and hopefully will improve with discontinuation of Zosyn, will add Questran for symptomatic relief Time with Patient: Less than 30
[2021-06-03 23:42] LABS: Glucose,Whole Blood 197 mg/dL (75-99)
[2021-06-04] MEDS: INSULIN ASPART (NovoLOG) 100 UNIT/ML VIAL SQ SCH ×6 (00:47→21:04)
[2021-06-04] MEDS: ONDANSETRON 4 MG/2 ML VIAL IVP PRN (03:41)
[2021-06-04 04:21] LABS: Glucose,Whole Blood 136 mg/dL (75-99)
[2021-06-04 04:38] LABS: Glucose,Whole Blood 137 mg/dL (75-99)
[2021-06-04 08:01] LABS: Glucose,Whole Blood 78 mg/dL (75-99)
[2021-06-04] MEDS: ZINC SULFATE 220 MG CAP PO SCH (08:47)
[2021-06-04] MEDS: PREGABALIN 75 MG CAP PO SCH ×3 (08:47→20:53)
[2021-06-04] MEDS: CHOLECALCIFEROL 25 MCG (1000 IU) TABLET PO SCH (08:47)
[2021-06-04] MEDS: THIAMINE 100 MG TAB PO SCH ×2 (08:47→16:50)
[2021-06-04] MEDS: FLUCONAZOLE IN NACL,ISO-OSM 100 MG in SALINE 1 50ML.BAG IVPB SCH (08:47)
[2021-06-04] MEDS: ESCITALOPRAM 20 MG TAB PO SCH (08:48)
[2021-06-04] MEDS: CHOLESTYRAMINE (WITH SUGAR) 4 GM PACKET PO SCH ×2 (08:48→18:53)
[2021-06-04] MEDS: PANTOPRAZOLE 40 MG/10 ML VIAL IVP SCH (08:49)
--- NOTE | 2021-06-04 10:19 | P.PN ---
Subjective Progress Note Date: 06/04/21 The patient is seen today 06/03/2021 in follow-up in the intensive care unit. She is currently awake and alert and resting fairly comfortably in bed. She is on a trach collar at 40% FiO2 with O2 saturations in the 90s. She's been a state afebrile. Hemodynamically stable. Currently on 0.9% normal saline at 40 miles per hour. She is being nourished with vital AF 1.2 at 20 ML's per hour with a goal of 50 ML's per hour. She does have some complaints of abdominal discomfort at higher rates. She is also having issues with diarrhea FMS remains in place. Microbiology is negative. She's currently on Diflucan only. This x- ray remains stable. There is some diffuse bilateral patchy infiltrates that are unchanged. She is status post 2 units packed red blood cells this admission. Hemoglobin 9.3. White count 7.3. Sodium 140. Potassium 3.6. Creatinine 0.43. Glucose 192. The patient is seen today 06/04/2021 in follow-up in the intensive care unit. She remains awake and alert in no acute distress. She is tolerating 40% FiO2 via trach collar with O2 saturations in the 90s. She is tolerating more of her tube feeding which is vital AF at 40 ML's per hour with a goal of 50. 0.9 normal saline at KVO. She remains in sinus rhythm. She is continued on fluconazole. She is status post 2 units of packed red blood cells this admission. Most recent hemoglobin 9.3. Objective - Vital Signs Vital signs: Vital Signs Temp 97.5 F L 06/04/21 04:00 Pulse 105 H 06/04/21 06:00 Resp 21 06/04/21 06:00 BP 124/83 06/04/21 06:00 Pulse Ox 95 06/04/21 08:55 Intake & Output 06/03/21 06/04/21 06/04/21 18:59 06:59 18:59 Intake Total 1015 1000 Output Total 1280 1060 Balance -265 -60 Weight 46.4 kg Intake: IV 460 580 Normal Saline 0.9 @ KVO 220 Potassium Chloride IVPB 100 Sodium Chloride 0.9% 1, 240 480 000 ml @ 40 mls/hr IV . Q24H [facility] Rx#:[id number] Intake, IV Titration 100 Amount Potassium Chloride 20 meq 100 In Water For Injection 1 100ml.bag @ 50 mls/hr IVPB Q2H [facility] Rx#: [id number] Tube Feeding 275 390 Other 180 30 Output: Urine 680 1060 Stool 600 Other: Voiding Method Indwelling Catheter Indwelling Catheter # Voids 1 - Exam GENERAL EXAM: Awake and alert, trached 36-year-old frail looking female, on 40% trach collar, comfortable in no apparent distress. HEAD: Normocephalic/atraumatic. EYES: Normal reaction of pupils, equal size. Conjunctiva pink, sclera white. NOSE: Clear with pink turbinates. MOUTH: She has ulcerations of her oral cavity THROAT: No erythema or exudates. NECK: No masses, no JVD, no thyroid enlargement, no adenopathy. Midline tracheostomy in place, on 40% trach collar, breathing comfortably patient is clean dry and intact CHEST: No chest wall deformity. Symmetrical expansion. LUNGS: Diminished air entry with few scattered rhonchi bilaterally. CVS: Regular rate and rhythm, normal S1 and S2, no gallops, no murmurs, no rubs ABDOMEN: Soft, nontender. No hepatosplenomegaly, normal bowel sounds, no guarding or rigidity. PEG tube covered with a surgical dressing EXTREMITIES: No clubbing, no edema, no cyanosis, 2+ pulses and upper and lower extremities. MUSCULOSKELETAL: Muscle strength and tone normal. SPINE: No scoliosis or deformity SKIN: No rashes CENTRAL NERVOUS SYSTEM: Awake and alert, following command No focal deficits, tone is normal in all 4 extremities. - Labs CBC & Chem 7: 06/03/21 05:44 06/03/21 17:10 Labs: Abnormal Lab Results - Last 24 Hours (Table) 06/03/21 06/03/21 06/03/21 Range/Units 11:58 16:04 17:10 Potassium 3.3 L (3.5-5.1) mmol/L POC Glucose (mg/dL) 160 H 189 H (75-99) mg/dL 06/03/21 06/03/21 06/03/21 Range/Units 19:52 21:10 23:41 Potassium (3.5-5.1) mmol/L POC Glucose (mg/dL) 181 H 206 H 197 H (75-99) mg/dL 06/04/21 06/04/21 Range/Units 04:09 04:36 Potassium (3.5-5.1) mmol/L POC Glucose (mg/dL) 136 H 137 H (75-99) mg/dL Microbiology - Last 24 Hours (Table) 06/01/21 05:19 Blood Culture - Preliminary Blood No Growth after 72 hours Assessment and Plan Assessment: 1 Acute hypoxic respiratory failure related to worsening and progression of pneumonia, and chest x-ray showing patchy consolidation involving the right midlung, right upper lobe and right lower lobe in addition to extensive consolidation of the left lung with possibly some cavitation. Suffered acute respiratory arrest on 05/21/2021 and was intubated, patient was successfully weaned and extubated on 05/23/2021 however failed again and had to be riaz ntubated later that evening on 05/23/2021. In view of multiple episodes of respiratory failure patient was considered for tracheostomy and PEG tube placement for weaning. Patient is status post bronchoscopy with bronchoalveolar lavage on 05/23/2021, so far BAL cultures are all negative. Patient is status post tracheostomy and PEG tube placement on 05/29/2021, currently on 40% trach collar 2 Altered mental status secondary to hypoglycemia. Patient had recovered, and she was back to baseline neurologically. Currently lightly sedated, patient is still intubated, but patient is following all commands 3 History of diabetes, and recent episode of diabetic ketoacidosis, recovered. Levemir insulin has been discontinued and patient is currently covered with sliding scale NovoLog, her last episode of hypoglycemia was on 05/19/2021 with a blood sugar of 45. No recurrence of hypoglycemia since 4 History of syncopal episodes related to hypoglycemia 5 History of migraine cephalgia 6 History of diabetic neuropathy 7 Chronic constipation 8 Chronic low back pain 9 Tongue and oral pharyngeal candidiasis, with ulcerations 10 Previous history of MRSA infection in the laceration of the scalp 11 Chronic anemia with interval drop in hemoglobin down to 6.1 without evidence of any active GI bleeding, status post transfusion with 2 unit of packed red blood cells her hemoglobin 9.3 Plan: The patient was seen and evaluated today Remains on Diflucan Tolerating trach collar at 40% FiO2 Tolerating tube feedings currently 40 ML's with a goal of [address] for subacute rehabilitation Plan is for possible transfer to [facility] tomorrow We will continue to follow I, the cosigning physician, performed a history & physical examination of the patient. Lungs sounds with bilateral scattered rhonchi. Maintaining good O2 saturations in the 90s on 40% FiO2 via trach collar. I discussed the assessment and plan of care with my nurse practitioner, Daniela Foreman. I attest to the above note as dictated by her.
[2021-06-04] MEDS: MULTIVITAMINS, THERA 1 EACH TAB PO SCH (12:30)
[2021-06-04] MEDS: FOLIC ACID 1 MG TAB PO SCH (12:30)
--- NOTE | 2021-06-04 12:45 | P.CN ---
Psychiatric Consult - . Consult date: 06/04/21 Consult:: 06/04/21 12:45 IDENTIFYING DATA: This patient is a single, unemployed, 36-year-old female with a significant history of depression who was admitted on 05/17/2021 for low blood sugar and prior to this, the patient was discharged from the hospital with pneumonia, DKA, and dehydration. HISTORY OF PRESENT ILLNESS: The patient presented to the hospital 05/17/2021 and has had a long and complicated hospital stay marked by pneumonia, intubation, extubation, and most recently PEG tube placement. Psychiatry has been consulted for evaluation and management of depression as the patient displayed a significant decrease in mood consistent with worsening depression since PEG tube placement. The patient is nonverbal and communicates via writing. Cousin in the room as the patient's mother Keena. Patient is agreeable to having her mother present during the psychiatric evaluation. In regards to mood, the patient reports that her mood has been decreasing for the past few days due to her complicated hospit al stay, PEG tube placement, and primarily due to her missing her children. She reports that her youngest son Chetan is turning 10 and a few days and she is unable to be there with him. In regards to depressive symptoms, the patient does report that her appetite has somewhat decreased and that she has difficulty sleeping. She does attribute her surroundings and her environment is a contributing factor to her ability to get a restful sleep. She however denies any suicidal or homicidal ideation, intention, and/or plan. She denies any hopelessness, helplessness, or anhedonia. The patient reports that she has been expressing depression for most of her life and does not recall when she started taking psychotropic medications. In regards to psychotic symptoms, the patient denies any significant history of bipolar symptoms. She reports no history of jimmy or hypomania. She denies any increased goal-directed behavior, periods of excessive energy, grandiosity, or mood lability. Concerning to the patient and her mother is her increased desire to pick at her scalp. Reportedly, the patient has been doing this for many years and has increasingly attempted to pick at her scalp the past few days. The patient's mother reports that the patient has been previously prescribed Zoloft in the past however the patient did not like how that medication made her feel. After significant discussion with the patient and her mother, they're agreeable to starting Restoril for short-term management of adjustment disorder. PAST PSYCHIATRIC HISTORY: Patient has a history of depression and anxiety. In patient's home medications include Lexapro, Elavil, and Xanax. Patient hasbeen trialed on Zoloft. The patient receives her medications through her outpatient primary care physician. Patient denies any history of suicide attempts in the past. PAST MEDICAL HISTORY: Past Medical History: Diabetes Mellitus, Syncope Additional Past Medical History / Comment(s): IDDM type I, neuropathy bilateral legs/feet, chronic low back pain, bilateral leg pain, migraines, hx chronic constipation. Hx HPV. Having diarrhea with any intake of food, chronic History of Any Multi-Drug Resistant Organisms: MRSA Date of last positivie culture/infection: 02/15/19 MDRO Source:: Head Past Surgical History: Tubal Ligation, Uterine Ablation Additional Past Surgical History / Comment(s): 12/22/17 colonoscopy, LAPAROSCOPIC REMOVAL Rt TUBE AND OVARY d/t endometriosis, D&C, HYSTEROSCOPY, NOVASURE ABLATION 2015. 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 Past Psychological History: Anxiety, Depression Smoking Status: Never smoker Past Alcohol Use History: None Reported Past Drug Use History: None Reported ALLERGIES: NO KNOWN DRUG ALLERGIES CHEMICAL DEPENDENCY HISTORY: The patient denies any alcohol, tobacco, marijuana, or illicit drug use. FAMILY PSYCHIATRIC/SUBSTANCE USE HISTORY: No reported history. SOCIAL HISTORY: Patient is single, never , and has 2 children. Ronny is 19 and her other son Chetan is turning 10. Currently her mother has been watching her children. Most recently, the patient's brother 3 months ago suddenly after hernia surgery. The patient reports no source of income at this time. MENTAL STATUS EXAM: General Appearance: Patient appears to be stated age is alert, pleasant, and cooperative. Patient appears to have disheveled hygiene and grooming wearing hospital gown with fair eye contact. The patient has poor dentition and has a noticeable lesion on her scalp where she picks. PEG tube in place. Behavior: Patient is seated upright by her bed without any agitated behavior. Speech: Patient is unable to speak due to the PEG tube. She communicates by writing or mouths one-word responses to this provider. Mood/Affect: Patient reports their mood is "depressed", affect is congruent and withdrawn Suicidality/Homicidality: Patient denies having any suicidal or homicidal ideation intent or plan. Perceptions: Patient denies any visual hallucinations and denies any auditory hallucinations Though content/process: There is no evidence of any delusional thought content and thought process is linear and goal-directed. Memory and concentration: AOX3, grossly intact for the purposes of this session. Can spell "WORLD" backwards Judgment and insight: Fair IMPRESSIONS: Adjustment disorder with mixed anxiety and depressed mood Excoriation disorder History of major depressive disorder PLAN: -Continue your medical management. -This provider spent approximately 20-30 minutes providing the patient with cognitive behavioral therapy techniques and supportive and reflective listening -At this time patient DOES NOT meet criteria for inpatient psychiatric admission. -Would recommend the following medication changes/additions: We will discontinue Elavil at this time. We will start Restoril 15 mg by mouth at bedtime and its place to address acute adjustment disorder in order to aid with sleep and anxiety. Short-term of restoril for 14 days to aid in acute life changes. Continue Lexapro 20 mg by mouth daily for depression/anxiety/excoriation disorder. May consider the addition of N-acetylcysteine for excoriation disorder. -Will continue to follow along 06/04/21 12:45
[2021-06-04 13:14] LABS: Glucose,Whole Blood 113 mg/dL (75-99)
--- NOTE | 2021-06-04 16:38 | P.PN ---
Subjective Progress Note Date: 06/04/21 CHIEF COMPLAINT: Hypoglycemia HISTORY OF PRESENT ILLNESS: The patient currently in the ICU with acute hypoxic respiratory failure secondary to pneumonia. Patient is status post tracheostomy and PEG tube placement. Patient is tolerating tube feeds. She does report some nausea. She is having bowel movements. Has fecal management system in place. Denies abdominal pain. Tolerating trach collar. PHYSICAL EXAM: VITAL SIGNS: Reviewed. GENERAL: no acute distress. HEENT: No sclera icterus. Extraocular movements grossly intact. Moist buccal mucosa. Head is atraumatic, normocephalic. Trach site clean dry and intact ABDOMEN: Soft. Nondistended. Nontender. PEG tube site clean dry and intact ASSESSMENT: 1. Acute hypoxic respiratory failure secondary to pneumonia. Patient was extubated and required to be reintubated on 05/23/2021. Patient status post tracheostomy placement 2. Severe protein calorie malnutrition. Patient status post PEG tube placement PLAN: -Titrate tube feedings per dietitian -Continue Reglan and Zofran -Continue ICU management and supportive care Physician Nurse Tech note has been reviewed by physician. Signing provider agrees with the documented findings, assessment, and plan of care. Objective - Vital Signs Vital signs: Vital Signs Temp 98.6 F 06/04/21 12:00 Pulse 100 06/04/21 14:00 Resp 21 06/04/21 14:00 BP 135/89 06/04/21 14:00 Pulse Ox 97 06/04/21 14:00 Intake & Output 06/03/21 06/04/21 06/04/21 18:59 06:59 18:59 Intake Total 1015 1000 800 Output Total 1280 1060 300 Balance -265 -60 500 Weight 46.4 kg Intake: IV 460 580 420 Fluconazole in NaCl,Iso- 100 Osm 100 mg In Saline 1 50ml.bag @ 50 mls/hr IVPB DAILY [facility] Rx#:[id number] Normal Saline 0.9 @ KVO 220 Potassium Chloride IVPB 100 Sodium Chloride 0.9% 1, 240 480 320 000 ml @ 40 mls/hr IV . Q24H [facility] Rx#:[id number] Intake, IV Titration 100 Amount Potassium Chloride 20 meq 100 In Water For Injection 1 100ml.bag @ 50 mls/hr IVPB Q2H [facility] Rx#: [id number] Tube Feeding 275 390 320 Other 180 30 60 Output: Urine 680 1060 300 Stool 600 Other: Voiding Method Indwelling Catheter Indwelling Catheter Indwelling Catheter # Voids 1 1 - Labs CBC & Chem 7: 06/03/21 05:44 06/03/21 17:10 Labs: Abnormal Lab Results - Last 24 Hours (Table) 06/03/21 06/03/21 06/03/21 Range/Units 17:10 19:52 21:10 Potassium 3.3 L (3.5-5.1) mmol/L POC Glucose (mg/dL) 181 H 206 H (75-99) mg/dL 06/03/21 06/04/21 06/04/21 Range/Units 23:41 04:09 04:36 Potassium (3.5-5.1) mmol/L POC Glucose (mg/dL) 197 H 136 H 137 H (75-99) mg/dL 06/04/21 Range/Units 13:10 Potassium (3.5-5.1) mmol/L POC Glucose (mg/dL) 113 H (75-99) mg/dL Microbiology - Last 24 Hours (Table) 06/01/21 05:19 Blood Culture - Preliminary Blood No Growth after 72 hours
[2021-06-04] MEDS: HYDROmorphone 0.5 MG/0.5 ML SYRINGE IVP PRN (16:50)
[2021-06-04] MEDS: SODIUM CHLORIDE 0.9% 1,000 ML IV SCH (17:00)
[2021-06-04 17:09] LABS: Glucose,Whole Blood 89 mg/dL (75-99)
[2021-06-04] MEDS: TEMAZEPAM 15 MG CAP PO SCH (20:53)
[2021-06-04] MEDS: MONTELUKAST 10 MG TAB PO SCH (20:53)
[2021-06-04] MEDS: INSULIN DETEMIR (LEVEMIR) 100 UNIT/ML SYR SQ SCH (20:54)
[2021-06-04 21:00] LABS: Glucose,Whole Blood 133 mg/dL (75-99)
[2021-06-05 00:11] LABS: Glucose,Whole Blood 101 mg/dL (75-99)
--- NOTE | 2021-06-05 01:54 | P.PN ---
Subjective Progress Note Date: 06/04/21 This is a 36-year-old female who was recently admitted with changes in mental status along with significant hypoglycemia and is being closely monitored. Patient continues on 100% BiPAP with continued dyspnea and pulmonary following closely. Patient also found to have bilateral pneumonia possible aspiration and also a fungal urinary tract infection. Patient continues in the ICU for close monitoring and infectious disease is also following. Patient continues on IV antibiotics in the form of meropenem along with fluconazole and vancomycin and will continue. Multiple family members at the bedside. Recommend repeat chest x-ray along with labs in the morning. White blood Count elevated at 19.1. Potassium is 3.4 and magnesium 1.6 and will replace per protocol. 05/21/2021 She is seen in follow-up continues to be in the ICU being closely monitored. Patient was maintained on BiPAP and attempting airvo to allow for oral intake. Only at the bedside with multiple questions and concerns answered to the best of our ability. Patient's mentation is improved and answering questions and responding to commands appropriately. Chest x-ray today shows bilateral diffuse airspace disease with small effusion, stable with no pneumothorax noted. Infectious disease following an patient is continued on IV fluconazole along with meropenem. Blood cultures remain negative. Blood count is mildly elevated at 20.2. Patient is afebrile. Recommend repeat labs and chest x-ray in the a.m. She denies any chest pains or palpitations at this time. Patient tolerating oral intake and recommend strict aspiration precautions of head of the bed elevated 30-45 at all times and supervision with meals. 05/22/2021 Patient is seen in follow up and being closely monitored in the ICU with multiple medical consultations following. Patient was an A team this morning for acute respiratory arrest that was witnessed by nursing staff at the bedside and was changing the patient after a bowel movement and became apneic and code blue was initiated. Patient did not lose pulse but was intubated and placed on sedation. Chest xray showed moderately severe pulmonary edema without change compared to yesterday. Patient was given a dose of lasix. Patient is on some pressor support as well. Pulmonary following and patient underwent bronchoscopy with fluid analysis sent and pending. Patient is continued on IV merrem and vancomycin with ID following closely. Await finalized cultures. WBC elevated as well at 26.8. 05/23/2021 Patient is seen and evaluated this morning and continues in critical condition in the ICU. Mother at the bedside and patient was extubated this morning. Patient is currently resting on 2L of02 via NC with oxygen saturation above 90%. Patient is extremely lethargic but arousable. Chest xray shows persistent but improving airspace disease, right greater than left. Mother is at the bedside. May Patient is seen and evaluated today in follow-up continues to be in the ICU being closely monitored. Patient continues on mechanical vent with sedation and attempts at weaning continue. Pulmonary and ID following closely. Patient continues with FI02 of 60%. Patient also continues on IV fluconazole and Zosyn and will continue. Chest xray today shows bilateral multifocal and confluent opacities redemonstrated consistent with covid 19 infection and or ARDS is redemonstrated with no significant change from yesterday. 05/27/2021 Patient is seen and evaluated this morning and continues on mechanical ventilation and lightly sedated on propofol although patient is awake and following commands although fatigues easily. General surgery consulted for PEG and trach placement for pulmonary mill operator helper recommendations. Infectious disease following an patient is maintained on fluconazole along with IV Zosyn and will continue. Patient continues with multiple episodes of loose stool with fecal management system and C. diff testing is ordered. Potassium mildly low at 3.4 and will replace per protocol. Magnesium is 2.2 today. Chest x-ray today shows patchy bilateral lung infiltrates that are stable. 05/28/2021 Patient is seen in follow-up in the ICU continues to be closely monitored with multiple medical consultations following. Plan for today was possible peg and trach placement although surgery extremely busy and will likely occur tomorrow. Patient continues on IV abx with ID following closely. Patient continues on mechanical vent with an FI02 of 50%. Minimally sedated. 05/29/2021 Patient is seen this morning status post PEG tube and tracheostomy placement and continues on mechanical vent with an FiO2 of 50% and PEEP is 5. Mother at the bedside with questions and concerns answered. PEG tube on hold currently for 24 hours and awaiting clearance from surgery to start tube feedings. Chest x-ray today shows bilateral multifocal and confluent opacification greatest in the right lung are redemonstrated consistent with COVID-19 and/or arts with no significant change from previous day. Patient is awake and nodding yes and no appropriately. 05/30/2021 Patient is seen today currently sitting up in the chair and recently placed on trach collar as she is status post tracheostomy and PEG tube placement yesterday. Tube feedings were started on the PEG tube although patient became nauseated and currently on hold and will continue to monitor. Patient continues with loose stool and does have fecal management system that is intact. Recommen d to keep the rectal tubing as patient experiences more frequent episodes of loose stool with feedings. Trach collar is 50% FiO2. Patient continues on IV zosyn with ID following. 05/31/2021 Patient evaluated today in the ICU resting in bed. [place]ana catheter and fecal management system in place. Oxygenation maintained on trach collar with Fi02 of 50% and oxygen saturation of 96%. Patient does present with congested cough. She is nauseas today and feels like she wants to throw up. Nurse reports minimal residual volumes with feedings. Tube feedings were placed on hold, and she will be placed to suction via PEG tube. Concerns for aspiration. She is getting IV zofran and IV protonix. Repeat chest xray today shows slight interval worsening of multifocal airspace opacities right greater than left. Labs today show WBC 15.2, hgb 9.2, platelet count 533, sodium 137, potassium 4.2, glucose in the 180s. Patient with low grade fever 99.3, heart rate 108, respirations 17, blood pressure 116/73, 96% on trach collar. All cultures negative. Continues on IV Zosyn and IV fluconazole. 06/01/2021 Patient evaluated today in bed with HOB around 30. Per RN she was up in the chair yesterday. Indwelling catheter and Fecal management system in place. Patient is on trach colloar with FiO2 50% with oxygen saturation of 97%. Blood pressures are marginal at 98/76, respirations 14, heart rate 105, afebrile. Patient to feedings were placed on hold yesterday with PEG tube to suction. She still complains of ongoing nausea which is not improved. She is no longer dry heaving on my assessment. Patient is in a negative fluid balance. We will start patient's IV hydration with normal saline at 75 mL per hour. She continues on IV Zofran. She is also on IV Tylenol, IV fluconazole, IV Zosyn. Chest x-ray shows correlation for pneumonia. Blood fungal culture is currently pending. 06/02/2021 Patient is seen and evaluated in follow up this morning and continues to be in the ICU being closely monitored. Patient is currently up in the chair and on trach collar at 60% although per nursing staff being weaned down to 40%. Patient persists with nausea and having high residuals and tube feeds on hold. Reglan scheduled being added and will resume tube feeds once nausea improves and start slowly on tube feeds. Chest xray today shows patchy and confluent bilateral airspace disease right greater than left that shows slight interval worsening. Patient remains on IV zosyn and fluconazole with ID following as well. 06/03/2021 Patient is seen in follow-up this morning lethargic although arousable and continues on trach collar and tolerating well at 60% FiO2. Currently being titrated down to 40% and oxygen saturations remained above 95%. Patient is afebrile and no reports of worsening shortness of breath or chest pain. Chest x-ray today shows stable portable chest with diffuse bilateral patchy infiltrates persist and unchanged and pleural effusion also unchanged. Multiple medical consultations including general surgery, infectious disease and pulmonary mill operator helper following. Family is now agreeable to [facility] for some rehab for strength and mobility and social work following and working on accepting facility. Patient continues on antifungal and is off IV antibiotics with infectious disease following closely. 06/04/2021 Patient is seen this morning in follow-up continues on a trach collar with an FiO2 of 40% and tolerating well. continues with secretion and suctioning. Patient continues to be withdrawn and does have an extensive history of depression and is frustrated with prolonged hospitalization and misses her children. No new chest xray today or labs and will repeat in the am. Psychiatry consulted to evaluate the possible need for medication adjustments and appreciat e input and recommendations. social work following and looking on accepting facilities. Patient may likely need LTAC. Patient also continues to pick nervously at scalp of which has been ongoing but worsening since admission. Will add bacitracin and encouraged the patient to avoid picking. Review of systems: Constitutional: reports of fatigue, no reports of fever, or chills, frustrated and wants to go home Cardiovascular: No reports of chest pain or palpitations Respiratory: No reports of worsening shortness of breath or cough status post tracheostomy and trach collar GI: No reports of nausea, vomiting, reports continued loose stool : No reports of dysuria or retention Neurovascular: Reports of generalized weakness All medications have been reviewed Active Medications Acetaminophen (Acetaminophen Tab 325 Mg Tab) 650 mg PO Q6HR PRN PRN Reason: Fever and/ or Mild Pain Last Admin: 05/23/21 04:35 Dose: 650 mg Documented by: Cholecalciferol (Cholecalciferol 25 Mcg (1000 Iu) Tablet) 50 mcg PO DAILY [facility] Last Admin: 06/04/21 08:47 Dose: 50 mcg Documented by: Cholestyramine Resin (Cholestyramine (With Sugar) 4 Gm Packet) 4 gm PO BID@1000,1800 [facility] Last Admin: 06/04/21 08:48 Dose: 4 gm Documented by: Escitalopram Oxalate (Escitalopram 20 Mg Tab) 20 mg PO DAILY [facility] Last Admin: 06/04/21 08:48 Dose: 20 mg Documented by: Folic Acid (Folic Acid 1 Mg Tab) 1 mg PO DAILY@1200 [facility] Last Admin: 06/03/21 11:55 Dose: 1 mg Documented by: Hydromorphone HCl (Hydromorphone 0.5 Mg/0.5 Ml Syringe) 0.5 mg IVP Q3HR PRN PRN Reason: Severe Pain Last Admin: 06/03/21 21:32 Dose: 0.5 mg Documented by: Fluconazole/Sodium Chloride (100 mg/ IV Solution) 50 mls @ 50 mls/hr IVPB DAILY [facility] Last Admin: 06/04/21 08:47 Dose: 50 mls/hr Documented by: Acetaminophen 1,000 mg/ IV (Solution) 100 mls @ 400 mls/hr IVPB Q6HR PRN PRN Reason: Fever Stop: 06/09/21 08:05 Sodium Chloride (Saline 0.9%) 1,000 mls @ 40 mls/hr IV .Q24H [facility] Last Admin: 06/03/21 15:43 Dose: 40 mls/hr Documented by: Insulin Aspart (Insulin Aspart (Novolog) 100 Unit/Ml Vial) 0 unit SQ Q4H [facility]; Protocol Last Admin: 06/04/21 08:37 Dose: Not Given Documented by: Insulin Detemir (Insulin Detemir (Levemir) 100 Unit/Ml Syr) 20 unit SQ [facility] Last Admin: 06/03/21 21:32 Dose: 20 unit Documented by: Metoclopramide HCl (Metoclopramide 5 Mg/Ml 2 Ml Vial) 5 mg IVP Q6HR PRN PRN Reason: Nausea And Vomiting Last Admin: 06/02/21 15:30 Dose: 5 mg Documented by: Miscellaneous Information (Magnesium Replacement Protocol 1 Each Misc) 1 each MISCELLANE DAILY PRN; Protocol PRN Reason: Per Protocol Miscellaneous Information (Potassium Replacement Protocol 1 Each Misc) 1 each MISCELLANE DAILY PRN; Protocol PRN Reason: Per Protocol Montelukast Sodium (Montelukast 10 Mg Tab) 10 mg PO [facility] Last Admin: 06/03/21 21:32 Dose: 10 mg Documented by: Multivitamins (Multivitamins, Thera 1 Each Tab) 1 each PO DAILY@1200 [facility] Last Admin: 06/03/21 11:55 Dose: 1 each Documented by: Ondansetron HCl (Ondansetron 4 Mg/2 Ml Vial) 4 mg IVP Q6HR PRN PRN Reason: Nausea And Vomiting Last Admin: 06/04/21 03:41 Dose: 4 mg Documented by: Pantoprazole Sodium (Pantoprazole 40 Mg/10 Ml Vial) 40 mg IVP DAILY [facility] Last Admin: 06/04/21 08:49 Dose: 40 mg Documented by: Pregabalin (Pregabalin 75 Mg Cap) 75 mg PO TID [facility] Last Admin: 06/04/21 08:47 Dose: 75 mg Documented by: Sumatriptan Succinate (Sumatriptan Succinate 50 Mg Tab) 100 mg PO DAILY PRN PRN Reason: Migraine Headache Temazepam (Temazepam 15 Mg Cap) 15 mg PO [facility] Thiamine HCl (Thiamine 100 Mg Tab) 100 mg PO BID-W/MEALS [facility] Last Admin: 06/04/21 08:47 Dose: 100 mg Documented by: Zinc Sulfate (Zinc Sulfate 220 Mg Cap) 220 mg PO DAILY [facility] Last Admin: 06/04/21 08:47 Dose: 220 mg Documented by: Physical Exam: Gen: This is a 36-year-old female who was intubated and sedated status post tracheostomy placement, thin built, cachectic. oxygen saturation is 97% on 40% FiO2 trach collar HEENT: Head is atraumatic, normocephalic. Pupils equal, round. Sclerae is anicteric. oral mucosa is dry and white patches noted on tongue, cracking and lesions noted on the lips NECK: Supple. No JVD. No lymphadenopathy. No thyromegaly. LUNGS: Breath sounds diminished with scattered rhonchi and crackles noted. No intercostal retractions. HEART: S1, S2 are muffled ABDOMEN: Soft. Bowel sounds are present. No masses. No tenderness. peg tube noted EXTREMITIES: No pedal edema. No calf tenderness. NEUROLOGICAL: Patient is awake, alert and oriented x3. Nodding yes and no to questions and commands . 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 Infectious disease and pulmonary following closely and patient remains on FI02 is down to 40% trach collar and off sedation and tolerating well. Slowly resuming tube feedings and patient continues with loose stool and fecal management system may have a component of IBS. Mother at the bedside and her questions and concerns were answered to the best of our ability. Recommend repeat labs and follow-up chest x-ray in the morning. Recommend to keep the bed elevated 30-45 at all times and maintain aspiration precautions. Blood cultures remain negative. ID following and ma intained on fluconazole. IV antibiotics have been discontinued. Recommend to continue to monitor blood sugars closely. If patient remains stable possible transfer out of ICU with possible transfer to ltac with social work following and looking for accepting facilities. Psychiatry consulted for depression and appreciate input and recommendations. Patient continues to pick at scalp which per patient and mother has been doing for quite some time and has gradually worsened over the course of hospitalization. Will add bacitracin. Objective - Vital Signs Vital signs: Vital Signs Temp 97.5 F L 06/04/21 04:00 Pulse 105 H 06/04/21 06:00 Resp 21 06/04/21 06:00 BP 124/83 06/04/21 06:00 Pulse Ox 95 06/04/21 08:55 Intake & Output 06/03/21 06/04/21 06/04/21 18:59 06:59 18:59 Intake Total 1015 1000 Output Total 1280 1060 Balance -265 -60 Weight 46.4 kg Intake: IV 460 580 Normal Saline 0.9 @ KVO 220 Potassium Chloride IVPB 100 Sodium Chloride 0.9% 1, 240 480 000 ml @ 40 mls/hr IV . Q24H [facility] Rx#:[id number] Intake, IV Titration 100 Amount Potassium Chloride 20 meq 100 In Water For Injection 1 100ml.bag @ 50 mls/hr IVPB Q2H [facility] Rx#: [id number] Tube Feeding 275 390 Other 180 30 Output: Urine 680 1060 Stool 600 Other: Voiding Method Indwelling Catheter Indwelling Catheter # Voids 1 - Labs CBC & Chem 7: 06/03/21 05:44 06/03/21 17:10 Labs: Abnormal Lab Results - Last 24 Hours (Table) 06/03/21 06/03/21 06/03/21 Range/Units 05:44 11:58 16:04 Potassium (3.5-5.1) mmol/L POC Glucose (mg/dL) 160 H 189 H (75-99) mg/dL Procalcitonin 0.13 H (0.02-0.09) ng/mL 06/03/21 06/03/21 06/03/21 Range/Units 17:10 19:52 21:10 Potassium 3.3 L (3.5-5.1) mmol/L POC Glucose (mg/dL) 181 H 206 H (75-99) mg/dL Procalcitonin (0.02-0.09) ng/mL 06/03/21 06/04/21 06/04/21 Range/Units 23:41 04:09 04:36 Potassium (3.5-5.1) mmol/L POC Glucose (mg/dL) 197 H 136 H 137 H (75-99) mg/dL Procalcitonin (0.02-0.09) ng/mL Microbiology - Last 24 Hours (Table) 06/01/21 05:19 Blood Culture - Preliminary Blood No Growth after 72 hours
[2021-06-05] MEDS: INSULIN ASPART (NovoLOG) 100 UNIT/ML VIAL SQ SCH ×6 (03:29→20:57)
[2021-06-05 04:02] LABS: Glucose,Whole Blood 87 mg/dL (75-99)
[2021-06-05 06:33] LABS: Basophils # (A) 0.1 k/uL (0-0.2); Basophils % (A) 1 %; Eosinophils # (A) 0.6 k/uL (0-0.7); Eosinophils % (A) 5 %; HCT 35.4 % (34.0-46.0); HGB 10.5 gm/dL (11.4-16.0); Hypochromasia Marked; Lymphocytes # (A) 1.9 k/uL (1.0-4.8); Lymphocytes % (A) 17 %; MCH 26.2 pg (25.0-35.0); MCHC 29.7 g/dL (31.0-37.0); MCV 88.1 fL (80.0-100.0); Mean Platelet Volume 7.2; Monocytes # (A) 0.4 k/uL (0-1.0); Monocytes % (A) 4 %; Neutrophils # (A) 8.4 k/uL (1.3-7.7); Neutrophils % (A) 73 %; Platelet Count 628 k/uL (150-450); Poikilocytosis Slight; RBC 4.02 m/uL (3.80-5.40); RDW 15.7 % (11.5-15.5); WBC 11.5 k/uL (3.8-10.6)
[2021-06-05 07:00] LABS: African American GFR (CKD) >90 (>60 ml/min/1.73 sqM); Anion Gap 1 mmol/L; Blood Urea Nitrogen 7 mg/dL (7-17); Calcium 8.3 mg/dL (8.4-10.2); Carbon Dioxide 32 mmol/L (22-30); Chloride 105 mmol/L (98-107); Glucose 98 mg/dL (74-99); Non-African American GFR(CKD) >90 (>60 ml/min/1.73 sqM); Potassium 3.8 mmol/L (3.5-5.1); Sodium 138 mmol/L (137-145)
[2021-06-05] MEDS: ZINC SULFATE 220 MG CAP PO SCH (08:14)
[2021-06-05] MEDS: CHOLESTYRAMINE (WITH SUGAR) 4 GM PACKET PO SCH ×2 (08:14→17:12)
[2021-06-05] MEDS: FLUCONAZOLE IN NACL,ISO-OSM 100 MG in SALINE 1 50ML.BAG IVPB SCH (08:14)
[2021-06-05] MEDS: PREGABALIN 75 MG CAP PO SCH ×3 (08:14→22:14)
[2021-06-05] MEDS: CHOLECALCIFEROL 25 MCG (1000 IU) TABLET PO SCH (08:14)
[2021-06-05] MEDS: THIAMINE 100 MG TAB PO SCH ×2 (08:14→16:54)
[2021-06-05] MEDS: ESCITALOPRAM 20 MG TAB PO SCH (08:14)
[2021-06-05] MEDS: PANTOPRAZOLE 40 MG/10 ML VIAL IVP SCH (08:14)
[2021-06-05] MEDS: BACITRACIN OINT 1 EACH PACKET TOPICAL SCH ×2 (08:16→16:55)
[2021-06-05 08:21] LABS: Glucose,Whole Blood 109 mg/dL (75-99)
--- NOTE | 2021-06-05 08:53 | XR ---
EXAMINATION TYPE: XR chest 1V portable DATE OF EXAM: 06/05/2021 Comparison: 06/03/2021 Clinical History: 36-year-old female shortness of breath Findings: Tracheostomy cannula tip 1.0 cm from the lucas. Right PICC tip in the right atrium. Right heart robert in remains obscured by adjacent pleural parenchymal opacities. Continued bilateral airspace disease, right greater than left without significant change. Impression: 1. Continued bilateral airspace disease, right greater than left, without significant change. 2. Note, tracheostomy cannula tip 1.0 cm from the lucas.
--- NOTE | 2021-06-05 10:42 | P.PN ---
Subjective Progress Note Date: 06/05/21 The patient is seen today 06/03/2021 in follow-up in the intensive care unit. She is currently awake and alert and resting fairly comfortably in bed. She is on a trach collar at 40% FiO2 with O2 saturations in the 90s. She's been a state afebrile. Hemodynamically stable. Currently on 0.9% normal saline at 40 miles per hour. She is being nourished with vital AF 1.2 at 20 ML's per hour with a goal of 50 ML's per hour. She does have some complaints of abdominal discomfort at higher rates. She is also having issues with diarrhea FMS remains in place. Microbiology is negative. She's currently on Diflucan only. This x- ray remains stable. There is some diffuse bilateral patchy infiltrates that are unchanged. She is status post 2 units packed red blood cells this admission. Hemoglobin 9.3. White count 7.3. Sodium 140. Potassium 3.6. Creatinine 0.43. Glucose 192. The patient is seen today 06/04/2021 in follow-up in the intensive care unit. She remains awake and alert in no acute distress. She is tolerating 40% FiO2 via trach collar with O2 saturations in the 90s. She is tolerating more of her tube feeding which is vital AF at 40 ML's per hour with a goal of 50. 0.9 normal saline at KVO. She remains in sinus rhythm. She is continued on fluconazole. She is status post 2 units of packed red blood cells this admission. Most recent hemoglobin 9.3. The patient is seen today 06/05/2021 in follow-up in the intensive care unit. She is currently sitting up in bed. Awake and alert. Maxwell to be somewhat depressed according to staff. Not smiling. Not reacting positively as she normally does. She was seen and evaluated by psychiatric services yesterday. They are treating her depression and her excoriation disorder as she continues to pick at her scalp. Otherwise, she is stable from the pulmonary standpoint. She is doing well on 40% FiO2 via the trach collar. She has normal saline running at 40 mL per hour. She is being nourished with vital 1.2 at 50 MLS per hour which is her goal. Microbiology is negative thus far. Chest x-ray today reveals continued bilateral airspace disease right greater than left without significant change. She has received 2 units of packed red blood cells this admission. Current hemoglobin 10.5. White count 11.5. Platelets 628. Sodium 138. Potassium 3.8. Creatinine 0.35. Glucose 109. She has completed a course of antibiotics and Diflucan. Blood and sputum cultures revealed no growth. Urine culture no growth. Bronchial washings revealed no growth. Objective - Vital Signs Vital signs: Vital Signs Temp 97.7 F 06/05/21 08:00 Pulse 105 H 06/05/21 09:00 Resp 15 06/05/21 09:00 BP 112/80 06/05/21 09:00 Pulse Ox 96 06/05/21 09:00 Intake & Output 06/04/21 06/05/21 06/05/21 18:59 06:59 18:59 Intake Total 1165 1200 530 Output Total 300 Balance 865 1200 530 Weight 48.1 kg Intake: IV 580 480 210 Fluconazole in NaCl,Iso- 100 50 Osm 100 mg In Saline 1 50ml.bag @ 50 mls/hr IVPB DAILY [facility] Rx#:[id number] Sodium Chloride 0.9% 1, 480 480 160 000 ml @ 40 mls/hr IV . Q24H [facility] Rx#:[id number] Tube Feeding 495 570 200 Other 90 150 120 Output: Urine 300 Other: Voiding Method Indwelling Catheter External Catheter External Catheter # Voids 1 1 - Exam GENERAL EXAM: Awake and alert, trached 36-year-old frail looking female, on 40% trach collar, comfortable in no apparent distress. HEAD: Normocephalic with a large area on the top of her head with open wound and excoriation from picking. EYES: Normal reaction of pupils, equal size. Conjunctiva pink, sclera white. NOSE: Clear with pink turbinates. MOUTH: She has ulcerations of her oral cavity THROAT: No erythema or exudates. NECK: No masses, no JVD, no thyroid enlargement, no adenopathy. Midline tracheostomy in place, on 40% trach collar, breathing comfortably patient is clean dry and intact CHEST: No chest wall deformity. Symmetrical expansion. LUNGS: Diminished air entry with few scattered rhonchi bilaterally. CVS: Regular rate and rhythm, normal S1 and S2, no gallops, no murmurs, no rubs ABDOMEN: Soft, nontender. No hepatosplenomegaly, normal bowel sounds, no guarding or rigidity. PEG tube covered with a surgical dressing EXTREMITIES: No clubbing, no edema, no cyanosis, 2+ pulses and upper and lower extremities. MUSCULOSKELETAL: Muscle strength and tone normal. SPINE: No scoliosis or deformity SKIN: No rashes CENTRAL NERVOUS SYSTEM: Awake and alert, following command No focal deficits, tone is normal in all 4 extremities. - Labs CBC & Chem 7: 06/05/21 05:59 06/05/21 05:59 Labs: Abnormal Lab Results - Last 24 Hours (Table) 06/04/21 06/04/21 06/05/21 Range/Units 13:10 20:59 00:09 WBC (3.8-10.6) k/uL Hgb (11.4-16.0) gm/dL MCHC (31.0-37.0) g/dL RDW (11.5-15.5) % Plt Count (150-450) k/uL Neutrophils # (1.3-7.7) k/uL Carbon Dioxide (22-30) mmol/L Creatinine (0.52-1.04) mg/dL POC Glucose (mg/dL) 113 H 133 H 101 H (75-99) mg/dL Calcium (8.4-10.2) mg/dL 06/05/21 06/05/21 06/05/21 Range/Units 05:59 05:59 08:19 WBC 11.5 H (3.8-10.6) k/uL Hgb 10.5 L (11.4-16.0) gm/dL MCHC 29.7 L (31.0-37.0) g/dL RDW 15.7 H (11.5-15.5) % Plt Count 628 H (150-450) k/uL Neutrophils # 8.4 H (1.3-7.7) k/uL Carbon Dioxide 32 H (22-30) mmol/L Creatinine 0.35 L (0.52-1.04) mg/dL POC Glucose (mg/dL) 109 H (75-99) mg/dL Calcium 8.3 L (8.4-10.2) mg/dL Microbiology - Last 24 Hours (Table) 06/01/21 05:19 Blood Culture - Preliminary Blood No Growth after 96 hours Assessment and Plan Assessment: 1 Acute hypoxic respiratory failure related to worsening and progression of pneumonia, and chest x-ray showing patchy consolidation involving the right midlung, right upper lobe and right lower lobe in addition to extensive c onsolidation of the left lung with possibly some cavitation. Suffered acute respiratory arrest on 05/21/2021 and was intubated, patient was successfully weaned and extubated on 05/23/2021 however failed again and had to be reintubated later that evening on 05/23/2021. In view of multiple episodes of respiratory failure patient was considered for tracheostomy and PEG tube placement for weaning. Patient is status post bronchoscopy with bronchoalveolar lavage on 05/23/2021, cultures are all negative. Patient is status post tracheostomy and PEG tube placement on 05/29/2021, currently on 40% trach collar 2 Altered mental status secondary to hypoglycemia. Patient had recovered, and she was back to baseline neurologically. Currently lightly sedated, patient is still intubated, but patient is following all commands 3 History of diabetes, and recent episode of diabetic ketoacidosis, recovered. Levemir insulin has been discontinued and patient is currently covered with sliding scale NovoLog, her last episode of hypoglycemia was on 05/19/2021 with a blood sugar of 45. No recurrence of hypoglycemia since 4 History of syncopal episodes related to hypoglycemia 5 History of migraine cephalgia 6 History of diabetic neuropathy 7 Chronic constipation 8 Chronic low back pain 9 Tongue and oral pharyngeal candidiasis, with ulcerations. 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 Lungs sounds with bilateral scattered rhonchi. Maintaining good O2 saturations in the 90s on 40% FiO2 via trach collar. I discussed the assessment and plan of care with my nurse practitioner, Daniela Foreman. I attest to the above note as dictated by her.
--- NOTE | 2021-06-05 12:02 | P.CONS ---
History of Present Illness - Reason for Consult Consult date: 06/05/21 wound care - History of Present Illness Is a 36-year-old female with a nonhealing ulceration to the scalp. Patient was unable to communicate how long the ulceration has been there. By reviewing the chart and speaking with the nurse it appears the patient has had ulceration since 2019 for MRSA was found to the site. Patient has not had any dressings to the site for a long period of time. At this time the ulceration is a cluster of 3 ulcerations midline scalp. The first ulceration measures approximately 1 x 1 x 0.1 cm with slough noted to the site with minimal granulation, the second ulceration measures 1.5 x 1.5 x 0.1 cm minimal granulation and slough throughout the wound bed. The distal ulceration measures 6 x 4 x 0.1 cm with granulation seen throughout the wound bed and dry blood to the edge of the ulceration. The edges are attached to the wound base is no tunneling or undermining noted. Review Of Systems: Constitutional: No fever, no chills, no night sweats. No weight change. No weakness, fatigue or lethargy. No daytime sleepiness. Integumentary:reports wounds, no lesions. No rash or pruritus. No unusual bruising. No change in hair or nails. Physical exam: General Appearance: Alert, cooperative, no distress, appears stated age. Skin: See HPI all other Skin color, texture, tugor normal, no rashes or lesions. Neurologic: Alert oriented x3 Assessment: 1. Nonhealing ulceration to scalp with fatty layer exposure. Plan: 1. Apply honey alginate, saline moistened gauze and Tubigrip to secure in place. If honey alginate is not tolerated me utilize triad to the site. Change Wednesday. Patient would benefit from continued advance wound care and outpatient setting. We'll be happy to see her in the wound care center upon discharge. Thank you for the consultation any questions to contact the wound center DNP note has been reviewed and discussed with Dr. Beck and the impression and plan of care has been directed as dictated. Past Medical History Past Medical History: Diabetes Mellitus, Syncope Additional Past Medical History / Comment(s): IDDM type I, neuropathy bilateral legs/feet, chronic low back pain, bilateral leg pain, migraines, hx chronic constipation. Hx HPV. Having diarrhea with any intake of food, chronic History of Any Multi-Drug Resistant Organisms: MRSA Year Discovered:: 05/09/21 MDRO Source:: Urine Past Surgical History: Tubal Ligation, Uterine Ablation Additional Past Surgical History / Comment(s): 12/22/17 colonoscopy, LAPAROSCOPIC REMOVAL Rt TUBE AND OVARY d/t endometriosis, D&C, HYSTEROSCOPY, NOVASURE ABLATION 2015. Past Anesthesia/Blood Transfusion Reactions: No Reported Reaction Additional Past Anesthesia/Blood Transfusion Reaction / Comm: HAD MULTI INJ FOR DENTAL WORK, NOVACAINE WAS INEFFECTIVE. Past Psychological History: Anxiety, Depression Smoking Status: Never smoker Past Alcohol Use History: None Reported Past Drug Use History: None Reported - Past Family History Mother Family Medical History: No Reported History, Rheumatoid Arthritis (RA) Additional Family Medical History / Comment(s): Mother is 63 yrs old. Father Family Medical History: Cancer, Diabetes Mellitus, Deep Vein Thrombosis (DVT), Hypertension Additional Family Medical History / Comment(s): THROAT CA- of but pt does not know at what age. Medications and Allergies Home Medications Medication Instructions Recorded Confirmed Type Escitalopram [Lexapro] 20 mg PO DAILY 04/26/20 05/17/21 History Omeprazole 20 mg PO DAILY 11/14/20 05/17/21 History ALPRAZolam [Xanax] 0.25 mg PO DAILY PRN 05/09/21 05/17/21 History Amitriptyline HCl [Elavil] 10 mg PO HS 05/09/21 05/17/21 History Cholecalciferol [Vitamin D3 (25 50 mcg PO DAILY 05/09/21 05/17/21 History Mcg = 1000 Iu)] INSULIN LISPRO (humaLOG) [humaLOG] 40 units SQ AC-TID 05/09/21 05/17/21 History INSULIN LISPRO (humaLOG) [humaLOG] See Protocol SQ AC-TID 05/09/21 05/17/21 History Insulin Detemir [Levemir Flextouch 35 units SQ HS 05/09/21 05/17/21 History Pen] Montelukast [Singulair] 10 mg PO HS 05/09/21 05/17/21 History Rizatriptan Odt [Maxalt SKEIN BLEACHER] 10 mg PO DAILY PRN 05/09/21 05/17/21 History Zinc 50 mg PO DAILY 05/09/21 05/17/21 History lisinopriL [Zestril] 2.5 mg PO DAILY 05/09/21 05/17/21 History tiZANidine [Zanaflex] 4 mg PO BID PRN 05/09/21 05/17/21 History Metoprolol Tartrate [Lopressor] 12.5 mg PO BID #60 tab 05/16/21 05/17/21 Rx Pregabalin [Lyrica] 75 mg PO TID #7 cap 05/16/21 05/17/21 Rx Amoxicillin/Potassium Clav 1 tab PO BID 05/17/21 05/17/21 History [Augmentin 875-125 Tablet] Allergies Allergy/AdvReac Type Severity Reaction Status Date / Time No Known Allergies Allergy Verified 05/17/21 11:59 Physical Exam Vitals: Vital Signs Temp Pulse Resp BP Pulse Ox 06/05/21 09:00 105 H 15 112/80 96 06/05/21 08:00 97.7 F 107 H 21 101/75 95 06/05/21 07:00 105 H 16 106/82 94 L 06/05/21 06:00 109 H 19 103/75 94 L 06/05/21 05:00 95 18 98/75 96 06/05/21 04:00 97 18 96/78 95 06/05/21 03:00 102 H 16 91/60 91 L 06/05/21 02:00 107 H 20 98/66 96 06/05/21 01:00 97 20 119/83 96 06/05/21 00:49 97 19 119/83 97 06/05/21 00:00 97 20 103/78 96 06/04/21 23:00 100 19 109/78 96 06/04/21 22:00 102 H 24 110/79 96 06/04/21 21:00 106 H 19 129/92 95 06/04/21 20:00 98.4 F 112 H 20 127/88 96 06/04/21 19:00 112 H 19 128/93 96 06/04/21 18:00 114 H 20 128/89 96 06/04/21 17:00 111 H 21 134/93 96 06/04/21 16:00 98.6 F 107 H 21 149/94 96 06/04/21 15:00 103 H 20 140/91 96 06/04/21 14:00 100 21 135/89 97 06/04/21 13:00 101 H 19 100/72 97 06/04/21 12:00 98.6 F 112 H 27 H 98/72 95 Intake and Output 06/04/21 06/05/21 06/05/21 22:59 06:59 14:59 Intake Total 795 770 530 Balance 795 770 530 Intake: IV 320 320 210 Fluconazole in NaCl,Iso- 50 Osm 100 mg In Saline 1 50ml.bag @ 50 mls/hr IVPB DAILY [facility] Rx#:[id number] Sodium Chloride 0.9% 1, 320 320 160 000 ml @ 40 mls/hr IV . Q24H [facility] Rx#:[id number] Tube Feeding 355 390 200 Other 120 60 120 Other: Voiding Method External Catheter External Catheter # Voids 1 1 Weight 48.1 kg Results CBC & Chem 7: 06/05/21 05:59 06/05/21 05:59 Labs: Abnormal Lab Results - Last 24 Hours (Table) 06/04/21 06/04/21 06/05/21 Range/Units 13:10 20:59 00:09 WBC (3.8-10.6) k/uL Hgb (11.4-16.0) gm/dL MCHC (31.0-37.0) g/dL RDW (11.5-15.5) % Plt Count (150-450) k/uL Neutrophils # (1.3-7.7) k/uL Carbon Dioxide (22-30) mmol/L Creatinine (0.52-1.04) mg/dL POC Glucose (mg/dL) 113 H 133 H 101 H (75-99) mg/dL Hemoglobin A1c (0.0-6.0) % Calcium (8.4-10.2) mg/dL 06/05/21 06/05/21 06/05/21 Range/Units 05:59 05:59 05:59 WBC 11.5 H (3.8-10.6) k/uL Hgb 10.5 L (11.4-16.0) gm/dL MCHC 29.7 L (31.0-37.0) g/dL RDW 15.7 H (11.5-15.5) % Plt Count 628 H (150-450) k/uL Neutrophils # 8.4 H (1.3-7.7) k/uL Carbon Dioxide 32 H (22-30) mmol/L Creatinine 0.35 L (0.52-1.04) mg/dL POC Glucose (mg/dL) (75-99) mg/dL Hemoglobin A1c 9.1 H (0.0-6.0) % Calcium 8.3 L (8.4-10.2) mg/dL 06/05/21 Range/Units 08:19 WBC (3.8-10.6) k/uL Hgb (11.4-16.0) gm/dL MCHC (31.0-37.0) g/dL RDW (11.5-15.5) % Plt Count (150-450) k/uL Neutrophils # (1.3-7.7) k/uL Carbon Dioxide (22-30) mmol/L Creatinine (0.52-1.04) mg/dL POC Glucose (mg/dL) 109 H (75-99) mg/dL Hemoglobin A1c (0.0-6.0) % Calcium (8.4-10.2) mg/dL Microbiology - Last 24 Hours (Table) 06/01/21 05:19 Blood Culture - Preliminary Blood No Growth after 96 hours Assessment and Plan (1) Non-pressure chronic ulcer of skin of other sites with fat layer exposed Current Visit: Yes Status: Acute Code(s): L98.492 - NON-PRS CHRONIC ULCER OF SKIN OF SITES W FAT LAYER EXPOSED SNOMED Code(s): 03005583
[2021-06-05 12:20] LABS: Glucose,Whole Blood 69 mg/dL (75-99)
[2021-06-05 12:44] LABS: Glucose,Whole Blood 86 mg/dL (75-99)
--- NOTE | 2021-06-05 13:50 | P.PN ---
Progress Note - Text Progress Note Date: 06/05/21 Interval History: Patient was seen sitting upright in her chair beside her bed with her mother present in the room. Patient is agreeable for this psychiatric evaluation with her mother present. The patient reports no significant changes in regards to mood. She continues to engage in picking at her scalp. She otherwise reports that sleep was poor last night. She denies any suicidal or homicidal ideation, intention, and/or plan. She reports no auditory or visual hallucinations. The patient has been adherent with the medications and is tolerating them well. She reports no significant side effects at this time. She is agreeable to have her Lexapro switched to Prozac for management of depression/anxiety/excoriation disorder. Mental Status Exam: General Appearance: Patient appears to be stated age is alert, directable, and cooperative. Patient has poor dentition and has a nose lesion on her scalp. PEG tube in place. Behavior: Patient is calmly seated without any agitated behavior. Eye contact is appropriate. Speech: Patient is unable to speak due to PEG tube placement. Mood/Affect: Mood is "the same." Affect appears to be withdrawn but with a slightly increased range compared to yesterday. Suicidality/Homicidality: Patient denies having any suicidal or homicidal ideation intent or plan. Perceptions: Patient denies any visual hallucinations and denies any auditory hallucinations Though content/process: There is no evidence of any delusional thought content and thought process is linear and goal-directed. Memory and concentration: AOX3, grossly intact for the purposes of this session Judgment and insight: Improving mildly Vital Signs Temp 97.7 F 06/05/21 08:00 Pulse 105 H 06/05/21 09:00 Resp 15 06/05/21 09:00 BP 112/80 06/05/21 09:00 Pulse Ox 96 06/05/21 09:00 Intake & Output 06/04/21 06/05/21 06/05/21 18:59 06:59 18:59 Intake Total 1165 1200 530 Output Total 300 Balance 865 1200 530 Weight 48.1 kg Intake: IV 580 480 210 Fluconazole in NaCl,Iso- 100 50 Osm 100 mg In Saline 1 50ml.bag @ 50 mls/hr IVPB DAILY [facility] [place] Rx#:[id number] Sodium Chloride 0.9% 1, 480 480 160 000 ml @ 40 mls/hr IV . Q24H [facility] [place] Rx#:[id number] Tube Feeding 495 570 200 Other 90 150 120 Output: Urine 300 Other: Voiding Method Indwelling Catheter External Catheter External Catheter # Voids 1 1 Laboratory Results - Last 24 Hours 06/04/21 06/04/21 06/05/21 17:08 20:59 00:09 WBC RBC Hgb Hct MCV MCH MCHC RDW Plt Count MPV Neutrophils % Lymphocytes % Monocytes % Eosinophils % Basophils % Neutrophils # Lymphocytes # Monocytes # Eosinophils # Basophils # Hypochromasia Poikilocytosis Sodium Potassium Chloride Carbon Dioxide Anion Gap BUN Creatinine Est GFR (CKD-EPI)AfAm Est GFR (CKD-EPI)NonAf Glucose POC Glucose (mg/dL) 89 133 H 101 H POC Glu Responder ID Betty Ag [address] Glu mg/dL Hemoglobin A1c Calcium 06/05/21 06/05/21 06/05/21 04:00 05:59 05:59 WBC 11.5 H RBC 4.02 Hgb 10.5 L Hct 35.4 MCV 88.1 MCH 26.2 MCHC 29.7 L RDW 15.7 H Plt Count 628 H MPV 7.2 Neutrophils % 73 Lymphocytes % 17 Monocytes % 4 Eosinophils % 5 Basophils % 1 Neutrophils # 8.4 H Lymphocytes # 1.9 Monocytes # 0.4 Eosinophils # 0.6 Basophils # 0.1 Hypochromasia Marked Poikilocytosis Slight Sodium Potassium Chloride Carbon Dioxide Anion Gap BUN Creatinine Est GFR (CKD-EPI)AfAm Est GFR (CKD-EPI)NonAf Glucose POC Glucose (mg/dL) 87 POC Glu Responder ID Estimated Ave Glu mg/dL 215 Hemoglobin A1c 9.1 H Calcium 06/05/21 06/05/21 06/05/21 05:59 08:19 12:19 WBC RBC Hgb Hct MCV MCH MCHC RDW Plt Count MPV Neutrophils % Lymphocytes % Monocytes % Eosinophils % Basophils % Neutrophils # Lymphocytes # Monocytes # Eosinophils # Basophils # Hypochromasia Poikilocytosis Sodium 138 Potassium 3.8 Chloride 105 Carbon Dioxide 32 H Anion Gap 1 BUN 7 Creatinine 0.35 L Est GFR (CKD-EPI)AfAm >90 Est GFR (CKD-EPI)NonAf >90 Glucose 98 POC Glucose (mg/dL) 109 H 69 L POC Glu Responder ID Betty Ag [address] Glu mg/dL Hemoglobin A1c Calcium 8.3 L 06/05/21 12:43 WBC RBC Hgb Hct MCV MCH MCHC RDW Plt Count MPV Neutrophils % Lymphocytes % Monocytes % Eosinophils % Basophils % Neutrophils # Lymphocytes # Monocytes # Eosinophils # Basophils # Hypochromasia Poikilocytosis Sodium Potassium Chloride Carbon Dioxide Anion Gap BUN Creatinine Est GFR (CKD-EPI)AfAm Est GFR (CKD-EPI)NonAf Glucose POC Glucose (mg/dL) 86 POC Glu Responder ID Crystal Collier [address] Glu mg/dL Hemoglobin A1c Calcium Assessment Adjustment disorder with mixed anxiety and depressed mood Excoriation disorder History of major depressive disorder Plan: -Continue your medical management. -This provider spent approximately 20-30 minutes providing the patient with cognitive behavioral therapy techniques and supportive and reflective listening -At this time patient DOES NOT meet criteria for inpatient psychiatric admission. -Would recommend the following medication changes/additions: Continue Restoril 15 mg by mouth at bedtime and its place to address acute adjus tment disorder in order to aid with sleep and anxiety. Short-term of restoril for 14 days to aid in acute life changes. Discontinue Lexapro and start Prozac 40 mg by mouth daily for management of depr ession/anxiety/excoriation disorder. -Will continue to follow along
--- NOTE | 2021-06-05 14:15 | P.PN ---
Subjective Progress Note Date: 06/05/21 CHIEF COMPLAINT: Hypoglycemia HISTORY OF PRESENT ILLNESS: The patient currently in the ICU with acute hypoxic respiratory failure secondary to pneumonia. Patient is status post tracheostomy and PEG tube placement on 05/29/21. Patient is tolerating tube feeds at 50 mL per hour. She is having bowel movements. Has fecal management system in place. Denies abdominal pain. Tolerating trach collar. She is currently MedSurg overflow. They're working on possible discharge to [facility]. Apple martinez was seen by psychiatry regarding depression. Afebrile. WBC 11.5 hemoglobin 10.5 PHYSICAL EXAM: VITAL SIGNS: Reviewed. GENERAL: no acute distress. HEENT: No sclera icterus. Extraocular movements grossly intact. Moist buccal mucosa. Head is atraumatic, normocephalic. Trach site clean dry and intact ABDOMEN: Soft. Nondistended. Nontender. PEG tube site clean dry and intact ASSESSMENT: 1. Acute hypoxic respiratory failure secondary to pneumonia. Patient was extubated and required to be reintubated on 05/23/2021. Patient status post tracheostomy placement 2. Severe protein calorie malnutrition. Patient status post PEG tube placement PLAN: -Titrate tube feedings per dietitian -Continue antiemetics as needed -Continue ICU management and supportive care Physician [employer] note has been reviewed by physician. Signing provider agrees with the documented findings, assessment, and plan of care. Objective - Vital Signs Vital signs: Vital Signs Temp 97.7 F 06/05/21 08:00 Pulse 105 H 06/05/21 09:00 Resp 15 06/05/21 09:00 BP 112/80 06/05/21 09:00 Pulse Ox 96 06/05/21 09:00 Intake & Output 06/04/21 06/05/21 06/05/21 18:59 06:59 18:59 Intake Total 1165 1200 530 Output Total 300 Balance 865 1200 530 Weight 48.1 kg 48.1 kg Intake: IV 580 480 210 Fluconazole in NaCl,Iso- 100 50 Osm 100 mg In Saline 1 50ml.bag @ 50 mls/hr IVPB DAILY [facility] Rx#:[id number] Sodium Chloride 0.9% 1, 480 480 160 000 ml @ 40 mls/hr IV . Q24H [facility] Rx#:[id number] Tube Feeding 495 570 200 Other 90 150 120 Output: Urine 300 Other: Voiding Method Indwelling Catheter External Catheter External Catheter # Voids 1 1 - Labs CBC & Chem 7: 06/05/21 05:59 06/05/21 05:59 Labs: Abnormal Lab Results - Last 24 Hours (Table) 06/04/21 06/05/21 06/05/21 Range/Units 20:59 00:09 05:59 WBC (3.8-10.6) k/uL Hgb (11.4-16.0) gm/dL MCHC (31.0-37.0) g/dL RDW (11.5-15.5) % Plt Count (150-450) k/uL Neutrophils # (1.3-7.7) k/uL Carbon Dioxide (22-30) mmol/L Creatinine (0.52-1.04) mg/dL POC Glucose (mg/dL) 133 H 101 H (75-99) mg/dL Hemoglobin A1c 9.1 H (0.0-6.0) % Calcium (8.4-10.2) mg/dL 06/05/21 06/05/21 06/05/21 Range/Units 05:59 05:59 08:19 WBC 11.5 H (3.8-10.6) k/uL Hgb 10.5 L (11.4-16.0) gm/dL MCHC 29.7 L (31.0-37.0) g/dL RDW 15.7 H (11.5-15.5) % Plt Count 628 H (150-450) k/uL Neutrophils # 8.4 H (1.3-7.7) k/uL Carbon Dioxide 32 H (22-30) mmol/L Creatinine 0.35 L (0.52-1.04) mg/dL POC Glucose (mg/dL) 109 H (75-99) mg/dL Hemoglobin A1c (0.0-6.0) % Calcium 8.3 L (8.4-10.2) mg/dL 06/05/21 Range/Units 12:19 WBC (3.8-10.6) k/uL Hgb (11.4-16.0) gm/dL MCHC (31.0-37.0) g/dL RDW (11.5-15.5) % Plt Count (150-450) k/uL Neutrophils # (1.3-7.7) k/uL Carbon Dioxide (22-30) mmol/L Creatinine (0.52-1.04) mg/dL POC Glucose (mg/dL) 69 L (75-99) mg/dL Hemoglobin A1c (0.0-6.0) % Calcium (8.4-10.2) mg/dL Microbiology - Last 24 Hours (Table) 06/01/21 05:19 Blood Culture - Preliminary Blood No Growth after 96 hours
[2021-06-05] MEDS: HYDROmorphone 0.5 MG/0.5 ML SYRINGE IVP PRN ×2 (16:53→20:07)
[2021-06-05] MEDS: MULTIVITAMINS, THERA 1 EACH TAB PO SCH (16:54)
[2021-06-05] MEDS: FOLIC ACID 1 MG TAB PO SCH (16:54)
[2021-06-05 16:59] LABS: Glucose,Whole Blood 83 mg/dL (75-99)
[2021-06-05 20:06] LABS: Glucose,Whole Blood 181 mg/dL (75-99)
[2021-06-05] MEDS: INSULIN DETEMIR (LEVEMIR) 100 UNIT/ML SYR SQ SCH (21:00)
[2021-06-05] MEDS: MONTELUKAST 10 MG TAB PO SCH (22:14)
[2021-06-05] MEDS: TEMAZEPAM 15 MG CAP PO SCH (22:14)
--- NOTE | 2021-06-05 22:17 | P.PN ---
Subjective Progress Note Date: 06/04/21 Principal diagnosis: Pneumonia Interval history : The patient is a 36-year-old female who presented to the hospital with an episode of unresponsiveness and concern for aspiration pneumonia. The patient subsequently did have worsening of her respiratory status, requiring intubation x2.Currently on the vent. The patient is status post trach and PEG completed 05/29/2021 On today's evaluation, , The patient remains to be febrile, the patient is breathing comfortably on the trach collar, patient denies any chest pain , patient has been tolerating her tube feeds The patient is still having significant diarrhea for the patient did have a fecal management system Objective - Vital Signs Vital signs: Vital Signs Temp 98.6 F 06/04/21 12:00 Pulse 100 06/04/21 14:00 Resp 21 06/04/21 14:00 BP 135/89 06/04/21 14:00 Pulse Ox 97 06/04/21 14:00 Intake & Output 06/03/21 06/04/21 06/04/21 18:59 06:59 18:59 Intake Total 1015 1000 800 Output Total 1280 1060 300 Balance -265 -60 500 Weight 46.4 kg Intake: IV 460 580 420 Fluconazole in NaCl,Iso- 100 Osm 100 mg In Saline 1 50ml.bag @ 50 mls/hr IVPB DAILY [facility] Rx#:[id number] Normal Saline 0.9 @ KVO 220 Potassium Chloride IVPB 100 Sodium Chloride 0.9% 1, 240 480 320 000 ml @ 40 mls/hr IV . Q24H [facility] Rx#:[id number] Intake, IV Titration 100 Amount Potassium Chloride 20 meq 100 In Water For Injection 1 100ml.bag @ 50 mls/hr IVPB Q2H [facility] Rx#: [id number] Tube Feeding 275 390 320 Other 180 30 60 Output: Urine 680 1060 300 Stool 600 Other: Voiding Method Indwelling Catheter Indwelling Catheter Indwelling Catheter # Voids 1 1 - Exam General description is a middle-aged female up in the chair in no distress Respiratory system:Unlabored breathing, decreased intensity of breath sounds. No wheeze. Heart S1, S2.Regular rate and rhythm. Abdomen soft, no tenderness Extremities: No edema feet - Labs CBC & Chem 7: 06/05/21 05:59 06/05/21 05:59 Labs: Abnormal Lab Results - Last 24 Hours (Table) 06/03/21 06/03/21 06/03/21 Range/Units 16:04 17:10 19:52 Potassium 3.3 L (3.5-5.1) mmol/L POC Glucose (mg/dL) 189 H 181 H (75-99) mg/dL 06/03/21 06/03/21 06/04/21 Range/Units 21:10 23:41 04:09 Potassium (3.5-5.1) mmol/L POC Glucose (mg/dL) 206 H 197 H 136 H (75-99) mg/dL 06/04/21 06/04/21 Range/Units 04:36 13:10 Potassium (3.5-5.1) mmol/L POC Glucose (mg/dL) 137 H 113 H (75-99) mg/dL Microbiology - Last 24 Hours (Table) 06/01/21 05:19 Blood Culture - Preliminary Blood No Growth after 72 hours Assessment and Plan (1) Pneumonia Current Visit: Yes Status: Acute Code(s): J18.9 - PNEUMONIA, UNSPECIFIED ORGANISM SNOMED Code(s): 129991018 Plan: 1. Patient with acute respiratory failure, likely multifactorial, with concern for possible component of aspiration pneumonia. Patient failed to be extubated and is status post trach and PEG, The patient's bronch culture has been negative for any resistant pathogen , The patient has received more than 2 weeks of IV antibiotic therapy and will monitor the patient closely off antibiotics 2patient developing diarrhea possible antibiotic associated stool for C. diff was negative , and Zosyn have been discontinued and continue with Questran for symptomatic relief Time with Patient: Less than 30
--- NOTE | 2021-06-05 22:18 | P.PN ---
Subjective Progress Note Date: 06/05/21 Principal diagnosis: Pneumonia Interval history : The patient is a 36-year-old female who presented to the hospital with an episode of unresponsiveness and concern for aspiration pneumonia. The patient subsequently did have worsening of her respiratory status, requiring intubation x2.Currently on the vent. The patient is status post trach and PEG completed 05/29/2021 On today's evaluation, 06/05/2021, The patient continues be febrile, the patient is breathing comfortably on the trach collar, patient denies any chest pain , patient has been tolerating her tube feeds and no worsening diarrhea has been reported by the nursing staff Objective - Vital Signs Vital signs: Vital Signs Temp 97.7 F 06/05/21 18:36 Pulse 117 H 06/05/21 18:37 Resp 18 06/05/21 18:37 BP 147/90 06/05/21 18:37 Pulse Ox 97 06/05/21 18:37 Intake & Output 06/05/21 06/05/21 06/06/21 06:59 18:59 06:59 Intake Total 1200 950 Balance 1200 950 Weight 48.1 kg 48.1 kg Intake: IV 480 210 Fluconazole in NaCl,Iso- 50 Osm 100 mg In Saline 1 50ml.bag @ 50 mls/hr IVPB DAILY [facility] Rx#:[id number] Sodium Chloride 0.9% 1, 480 160 000 ml @ 40 mls/hr IV . Q24H [facility] Rx#:[id number] Tube Feeding 570 500 Other 150 240 Other: Voiding Method External Catheter External Catheter # Voids 1 1 - Exam General description is a middle-aged female up in the chair in no distress Respiratory system:Unlabored breathing, decreased intensity of breath sounds. No wheeze. Heart S1, S2.Regular rate and rhythm. Abdomen soft, no tenderness Extremities: No edema feet - Labs CBC & Chem 7: 06/05/21 05:59 06/05/21 05:59 Labs: Abnormal Lab Results - Last 24 Hours (Table) 06/05/21 06/05/21 06/05/21 Range/Units 00:09 05:59 05:59 WBC 11.5 H (3.8-10.6) k/uL Hgb 10.5 L (11.4-16.0) gm/dL MCHC 29.7 L (31.0-37.0) g/dL RDW 15.7 H (11.5-15.5) % Plt Count 628 H (150-450) k/uL Neutrophils # 8.4 H (1.3-7.7) k/uL Carbon Dioxide (22-30) mmol/L Creatinine (0.52-1.04) mg/dL POC Glucose (mg/dL) 101 H (75-99) mg/dL Hemoglobin A1c 9.1 H (0.0-6.0) % Calcium (8.4-10.2) mg/dL 06/05/21 06/05/21 06/05/21 Range/Units 05:59 08:19 12:19 WBC (3.8-10.6) k/uL Hgb (11.4-16.0) gm/dL MCHC (31.0-37.0) g/dL RDW (11.5-15.5) % Plt Count (150-450) k/uL Neutrophils # (1.3-7.7) k/uL Carbon Dioxide 32 H (22-30) mmol/L Creatinine 0.35 L (0.52-1.04) mg/dL POC Glucose (mg/dL) 109 H 69 L (75-99) mg/dL Hemoglobin A1c (0.0-6.0) % Calcium 8.3 L (8.4-10.2) mg/dL 06/05/21 Range/Units 20:04 WBC (3.8-10.6) k/uL Hgb (11.4-16.0) gm/dL MCHC (31.0-37.0) g/dL RDW (11.5-15.5) % Plt Count (150-450) k/uL Neutrophils # (1.3-7.7) k/uL Carbon Dioxide (22-30) mmol/L Creatinine (0.52-1.04) mg/dL POC Glucose (mg/dL) 181 H (75-99) mg/dL Hemoglobin A1c (0.0-6.0) % Calcium (8.4-10.2) mg/dL Microbiology - Last 24 Hours (Table) 06/01/21 05:19 Blood Culture - Preliminary Blood No Growth after 96 hours Assessment and Plan (1) Pneumonia Current Visit: Yes Status: Acute Code(s): J18.9 - PNEUMONIA, UNSPECIFIED ORGANISM SNOMED Code(s): 412230988 Plan: 1. Patient with acute respiratory failure, likely multifactorial, with concern for possible component of aspiration pneumonia. Patient failed to be extubated and is status post trach and PEG, The patient's bronch culture has been negative for any resistant pathogen , The patient has received more than 2 weeks of IV antibiotic therapy and is currently being monitor closely off antibiotic 2patient developing diarrhea possible antibiotic associated stool for C. diff was negative , and Zosyn have been discontinued and patient will continue with Questran for symptomatic relief Time with Patient: Less than 30
--- NOTE | 2021-06-05 22:46 | P.PN ---
Subjective Progress Note Date: 06/05/21 This is a 36-year-old female who was recently admitted with changes in mental status along with significant hypoglycemia and is being closely monitored. Patient continues on 100% BiPAP with continued dyspnea and pulmonary following closely. Patient also found to have bilateral pneumonia possible aspiration and also a fungal urinary tract infection. Patient continues in the ICU for close monitoring and infectious disease is also following. Patient continues on IV antibiotics in the form of meropenem along with fluconazole and vancomycin and will continue. Multiple family members at the bedside. Recommend repeat chest x-ray along with labs in the morning. White blood Count elevated at 19.1. Potassium is 3.4 and magnesium 1.6 and will replace per protocol. 05/21/2021 She is seen in follow-up continues to be in the ICU being closely monitored. Patient was maintained on BiPAP and attempting airvo to allow for oral intake. Only at the bedside with multiple questions and concerns answered to the best of our ability. Patient's mentation is improved and answering questions and responding to commands appropriately. Chest x-ray today shows bilateral diffuse airspace disease with small effusion, stable with no pneumothorax noted. Infectious disease following an patient is continued on IV fluconazole along with meropenem. Blood cultures remain negative. Blood count is mildly elevated at 20.2. Patient is afebrile. Recommend repeat labs and chest x-ray in the a.m. She denies any chest pains or palpitations at this time. Patient tolerating oral intake and recommend strict aspiration precautions of head of the bed elevated 30-45 at all times and supervision with meals. 05/22/2021 Patient is seen in follow up and being closely monitored in the ICU with multiple medical consultations following. Patient was an A team this morning for acute respiratory arrest that was witnessed by nursing staff at the bedside and was changing the patient after a bowel movement and became apneic and code blue was initiated. Patient did not lose pulse but was intubated and placed on sedation. Chest xray showed moderately severe pulmonary edema without change compared to yesterday. Patient was given a dose of lasix. Patient is on some pressor support as well. Pulmonary following and patient underwent bronchoscopy with fluid analysis sent and pending. Patient is continued on IV merrem and vancomycin with ID following closely. Await finalized cultures. WBC elevated as well at 26.8. 05/23/2021 Patient is seen and evaluated this morning and continues in critical condition in the ICU. Mother at the bedside and patient was extubated this morning. Patient is currently resting on 2L of02 via NC with oxygen saturation above 90%. Patient is extremely lethargic but arousable. Chest xray shows persistent but improving airspace disease, right greater than left. Mother is at the bedside. May Patient is seen and evaluated today in follow-up continues to be in the ICU being closely monitored. Patient continues on mechanical vent with sedation and attempts at weaning continue. Pulmonary and ID following closely. Patient continues with FI02 of 60%. Patient also continues on IV fluconazole and Zosyn and will continue. Chest xray today shows bilateral multifocal and confluent opacities redemonstrated consistent with covid 19 infection and or ARDS is redemonstrated with no significant change from yesterday. 05/27/2021 Patient is seen and evaluated this morning and continues on mechanical ventilation and lightly sedated on propofol although patient is awake and following commands although fatigues easily. General surgery consulted for PEG and trach placement for pulmonary child guidance counselor recommendations. Infectious disease following an patient is maintained on fluconazole along with IV Zosyn and will continue. Patient continues with multiple episodes of loose stool with fecal management system and C. diff testing is ordered. Potassium mildly low at 3.4 and will replace per protocol. Magnesium is 2.2 today. Chest x-ray today shows patchy bilateral lung infiltrates that are stable. 05/28/2021 Patient is seen in follow-up in the ICU continues to be closely monitored with multiple medical consultations following. Plan for today was possible peg and trach placement although surgery extremely busy and will likely occur tomorrow. Patient continues on IV abx with ID following closely. Patient continues on mechanical vent with an FI02 of 50%. Minimally sedated. 05/29/2021 Patient is seen this morning status post PEG tube and tracheostomy placement and continues on mechanical vent with an FiO2 of 50% and PEEP is 5. Mother at the bedside with questions and concerns answered. PEG tube on hold currently for 24 hours and awaiting clearance from surgery to start tube feedings. Chest x-ray today shows bilateral multifocal and confluent opacification greatest in the right lung are redemonstrated consistent with COVID-19 and/or arts with no significant change from previous day. Patient is awake and nodding yes and no appropriately. 05/30/2021 Patient is seen today currently sitting up in the chair and recently placed on trach collar as she is status post tracheostomy and PEG tube placement yesterday. Tube feedings were started on the PEG tube although patient became nauseated and currently on hold and will continue to monitor. Patient continues with loose stool and does have fecal management system that is intact. Recommen d to keep the rectal tubing as patient experiences more frequent episodes of loose stool with feedings. Trach collar is 50% FiO2. Patient continues on IV zosyn with ID following. 05/31/2021 Patient evaluated today in the ICU resting in bed. [place] catheter and fecal management system in place. Oxygenation maintained on trach collar with Fi02 of 50% and oxygen saturation of 96%. Patient does present with congested cough. She is nauseas today and feels like she wants to throw up. Nurse reports minimal residual volumes with feedings. Tube feedings were placed on hold, and she will be placed to suction via PEG tube. Concerns for aspiration. She is getting IV zofran and IV protonix. Repeat chest xray today shows slight interval worsening of multifocal airspace opacities right greater than left. Labs today show WBC 15.2, hgb 9.2, platelet count 533, sodium 137, potassium 4.2, glucose in the 180s. Patient with low grade fever 99.3, heart rate 108, respirations 17, blood pressure 116/73, 96% on trach collar. All cultures negative. Continues on IV Zosyn and IV fluconazole. 06/01/2021 Patient evaluated today in bed with HOB around 30. Per RN she was up in the chair yesterday. Indwelling catheter and Fecal management system in place. Patient is on trach colloar with FiO2 50% with oxygen saturation of 97%. Blood pressures are marginal at 98/76, respirations 14, heart rate 105, afebrile. Patient to feedings were placed on hold yesterday with PEG tube to suction. She still complains of ongoing nausea which is not improved. She is no longer dry heaving on my assessment. Patient is in a negative fluid balance. We will start patient's IV hydration with normal saline at 75 mL per hour. She continues on IV Zofran. She is also on IV Tylenol, IV fluconazole, IV Zosyn. Chest x-ray shows correlation for pneumonia. Blood fungal culture is currently pending. 06/02/2021 Patient is seen and evaluated in follow up this morning and continues to be in the ICU being closely monitored. Patient is currently up in the chair and on trach collar at 60% although per nursing staff being weaned down to 40%. Patient persists with nausea and having high residuals and tube feeds on hold. Reglan scheduled being added and will resume tube feeds once nausea improves and start slowly on tube feeds. Chest xray today shows patchy and confluent bilateral airspace disease right greater than left that shows slight interval worsening. Patient remains on IV zosyn and fluconazole with ID following as well. 06/03/2021 Patient is seen in follow-up this morning lethargic although arousable and continues on trach collar and tolerating well at 60% FiO2. Currently being titrated down to 40% and oxygen saturations remained above 95%. Patient is afebrile and no reports of worsening shortness of breath or chest pain. Chest x-ray today shows stable portable chest with diffuse bilateral patchy infiltrates persist and unchanged and pleural effusion also unchanged. Multiple medical consultations including general surgery, infectious disease and pulmonary child guidance counselor following. Family is now agreeable to [facility] for some rehab for strength and mobility and social work following and working on accepting facility. Patient continues on antifungal and is off IV antibiotics with infectious disease following closely. 06/04/2021 Patient is seen this morning in follow-up continues on a trach collar with an FiO2 of 40% and tolerating well. continues with secretion and suctioning. Patient continues to be withdrawn and does have an extensive history of depression and is frustrated with prolonged hospitalization and misses her children. No new chest xray today or labs and will repeat in the am. Psychiatry consulted to evaluate the possible need for medication adjustments and appreciat e input and recommendations. social work following and looking on accepting facilities. Patient may likely need LTAC. Patient also continues to pick nervously at scalp of which has been ongoing but worsening since admission. Will add bacitracin and encouraged the patient to avoid picking. 06/05/2021 Patient is seen today continues to be in the ICU maintaining oxygen saturations are trach collar with an FiO2 of 40% chest x-ray continues to show bilateral airspace disease right greater than left without significant change. Multiple medical consultations following including psychiatry and has made some adjustments to medications and added sleep aid. Patient continues to pick at her scalp and is worsening although does not appear infected. Wound care consulted and appreciate input and recommendations. Patient currently awaiting a bed out of the ICU and SNF acceptance that can manage a trach collar. Review of systems: Constitutional: reports of fatigue, no reports of fever, or chills, frustrated and wants to go home Cardiovascular: No reports of chest pain or palpitations Respiratory: No reports of worsening shortness of breath or cough status post tracheostomy and trach collar GI: No reports of nausea, vomiting, reports continued loose stool : No reports of dysuria or retention Neurovascular: Reports of generalized weakness Labs: WBC is 11.5, hemoglobin is 10.5, platelets are 628, sodium is 138, potassium 3.8, BUN is 7, creatinine 0.35, calcium is 8.3, hemoglobin A1c is 9.1 All medications have been reviewed Active Medications Acetaminophen (Acetaminophen Tab 325 Mg Tab) 650 mg PO Q6HR PRN PRN Reason: Fever and/ or Mild Pain Last Admin: 05/23/21 04:35 Dose: 650 mg Documented by: Bacitracin (Bacitracin Oint 1 Each Packet) 1 each [facility]; Protocol Last Admin: 06/05/21 08:16 Dose: 1 each Documented by: Cholecalciferol (Cholecalciferol 25 Mcg (1000 Iu) Tablet) 50 mcg PO DAILY [facility] Last Admin: 06/05/21 08:14 Dose: 50 mcg Documented by: Cholestyramine Resin (Cholestyramine (With Sugar) 4 Gm Packet) 4 gm PO BID@10 00,1800 [facility] Last Admin: 06/05/21 08:14 Dose: 4 gm Documented by: Fluoxetine HCl (Fluoxetine Hcl 20 Mg Cap) 40 mg PO [facility]ILY [facility] Folic Acid (Folic Acid 1 Mg Tab) 1 mg PO DAILY@1200 [facility] Last Admin: 06/04/21 12:30 Dose: 1 mg Documented by: Hydromorphone HCl (Hydromorphone 0.5 Mg/0.5 Ml Syringe) 0.5 mg IVP Q3HR PRN PRN Reason: Severe Pain Last Admin: 06/04/21 16:50 Dose: 0.5 mg Documented by: Acetaminophen 1,000 mg/ IV (Solution) 100 mls @ 400 mls/hr IVPB Q6HR PRN PRN Reason: Fever Stop: 06/09/21 08:05 Insulin Aspart (Insulin Aspart (Novolog) 100 Unit/Ml Vial) 0 unit SQ Q4H [facility]; Protocol Last Admin: 06/05/21 08:22 Dose: Not Given Documented by: Insulin Detemir (Insulin Detemir (Levemir) 100 Unit/Ml Syr) 20 unit SQ [facility] Last Admin: 06/04/21 20:54 Dose: 20 unit Documented by: Metoclopramide HCl (Metoclopramide 5 Mg/Ml 2 Ml Vial) 5 mg IVP Q6HR PRN PRN Reason: Nausea And Vomiting Last Admin: 06/02/21 15:30 Dose: 5 mg Documented by: Miscellaneous Information (Magnesium Replacement Protocol 1 Each Misc) 1 each MISCELLANE DAILY PRN; Protocol PRN Reason: Per Protocol Miscellaneous Information (Potassium Replacement Protocol 1 Each Misc) 1 each MISCELLANE DAILY PRN; Protocol PRN Reason: Per Protocol Montelukast Sodium (Montelukast 10 Mg Tab) 10 mg PO [facility] Last Admin: 06/04/21 20:53 Dose: 10 mg Documented by: Multivitamins (Multivitamins, Thera 1 Each Tab) 1 each PO DAILY@1200 [facility] Last Admin: 06/04/21 12:30 Dose: 1 each Documented by: Ondansetron HCl (Ondansetron 4 Mg/2 Ml Vial) 4 mg IVP Q6HR PRN PRN Reason: Nausea And Vomiting Last Admin: 06/04/21 03:41 Dose: 4 mg Documented by: Pantoprazole Sodium (Pantoprazole 40 Mg/10 Ml Vial) 40 mg IVP [facility]ILY [facility] Last Admin: 06/05/21 08:14 Dose: 40 mg Documented by: Pregabalin (Pregabalin 75 Mg Cap) 75 mg PO [facility]ID [facility] Last Admin: 06/05/21 08:14 Dose: 75 mg Documented by: Sumatriptan Succinate (Sumatriptan Succinate 50 Mg Tab) 100 mg PO DAILY PRN PRN Reason: Migraine Headache Temazepam (Temazepam 15 Mg Cap) 15 mg PO [facility] Last Admin: 06/04/21 20:53 Dose: 15 mg Documented by: Thiamine HCl (Thiamine 100 Mg Tab) 100 mg PO BID-W/[facility] Last Admin: 06/05/21 08:14 Dose: 100 mg Documented by: Zinc Sulfate (Zinc Sulfate 220 Mg Cap) 220 mg PO DAILY [facility] Last Admin: 06/05/21 08:14 Dose: 220 mg Documented by: Physical Exam: Gen: This is a 36-year-old female who was intubated and sedated status post tracheostomy placement, thin built, cachectic. on 40% FiO2 trach collar HEENT: Head is atraumatic, normocephalic. Pupils equal, round. Sclerae is anicteric. oral mucosa is dry and white patches noted on tongue, cracking and lesions noted on the lips NECK: Supple. No JVD. No lymphadenopathy. No thyromegaly. LUNGS: Breath sounds diminished with scattered rhonchi and crackles noted. No intercostal retractions. HEART: S1, S2 are muffled ABDOMEN: Soft. Bowel sounds are present. No masses. No tenderness. peg tube noted EXTREMITIES: No pedal edema. No calf tenderness. NEUROLOGICAL: Patient is awake, alert and oriented x3. Nodding yes and no to questions and commands . 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 Infectious disease and pulmonary following closely and patient remains on FI02 is down to 40% trach collar and off sedation and tolerating well. Awaiting transfer out of the ICU once a bed becomes available. Tolerating tube feedings and patient continues with loose stool and fecal management system may have a component of IBS. Questran as well. Recommend to keep the bed elevated 30-45 at all times and maintain aspiration precautions. Blood cultures remain negative. ID following and maintained on fluconazole. IV antibiotics have been discontinued. Recommend to continue to monitor blood sugars closely. social work following and looking for accepting facilities. Wound care consulted for further wound recommendations of the scalp. Encouraged the patient to avoid picking. Possible discharge to SNF if accepted as soon as tomorrow. Will continue to monitor closely. Objective - Vital Signs Vital signs: Vital Signs Temp 97.7 F 06/05/21 08:00 Pulse 107 H 06/05/21 08:00 Resp 21 06/05/21 08:00 BP 101/75 06/05/21 08:00 Pulse Ox 95 06/05/21 08:00 Intake & Output 06/04/21 06/05/21 06/05/21 18:59 06:59 18:59 Intake Total 1165 1200 350 Output Total 300 Balance 865 1200 350 Weight 48.1 kg Intake: IV 580 480 130 Fluconazole in NaCl,Iso- 100 50 Osm 100 mg In Saline 1 50ml.bag @ 50 mls/hr IVPB DAILY [facility] Rx#:[id number] Sodium Chloride 0.9% 1, 480 480 80 000 ml @ 40 mls/hr IV . Q24H [facility] Rx#:[id number] Tube Feeding 495 570 100 Other 90 150 120 Output: Urine 300 Other: Voiding Method Indwelling Catheter External Catheter External Catheter # Voids 1 1 - Labs CBC & Chem 7: 06/05/21 05:59 06/05/21 05:59 Labs: Abnormal Lab Results - Last 24 Hours (Table) 06/04/21 06/04/21 06/05/21 Range/Units 13:10 20:59 00:09 WBC (3.8-10.6) k/uL Hgb (11.4-16.0) gm/dL MCHC (31.0-37.0) g/dL RDW (11.5-15.5) % Plt Count (150-450) k/uL Neutrophils # (1.3-7.7) k/uL Carbon Dioxide (22-30) mmol/L Creatinine (0.52-1.04) mg/dL POC Glucose (mg/dL) 113 H 133 H 101 H (75-99) mg/dL Calcium (8.4-10.2) mg/dL 06/05/21 06/05/21 06/05/21 Range/Units 05:59 05:59 08:19 WBC 11.5 H (3.8-10.6) k/uL Hgb 10.5 L (11.4-16.0) gm/dL MCHC 29.7 L (31.0-37.0) g/dL RDW 15.7 H (11.5-15.5) % Plt Count 628 H (150-450) k/uL Neutrophils # 8.4 H (1.3-7.7) k/uL Carbon Dioxide 32 H (22-30) mmol/L Creatinine 0.35 L (0.52-1.04) mg/dL POC Glucose (mg/dL) 109 H (75-99) mg/dL Calcium 8.3 L (8.4-10.2) mg/dL Microbiology - Last 24 Hours (Table) 06/01/21 05:19 Blood Culture - Preliminary Blood No Growth after 96 hours
[2021-06-05 23:50] LABS: Glucose,Whole Blood 184 mg/dL (75-99)
[2021-06-06] MEDS: INSULIN ASPART (NovoLOG) 100 UNIT/ML VIAL SQ SCH ×6 (00:42→21:17)
[2021-06-06] MEDS: HYDROmorphone 0.5 MG/0.5 ML SYRINGE IVP PRN ×5 (00:42→22:10)
[2021-06-06 03:57] LABS: Glucose,Whole Blood 178 mg/dL (75-99)
[2021-06-06 06:56] LABS: Glucose,Whole Blood 154 mg/dL (75-99)
[2021-06-06] MEDS: THIAMINE 100 MG TAB PO SCH ×2 (07:49→16:36)
[2021-06-06 08:12] LABS: Glucose,Whole Blood 143 mg/dL (75-99)
[2021-06-06] MEDS: PANTOPRAZOLE 40 MG/10 ML VIAL IVP SCH (09:36)
[2021-06-06] MEDS: CHOLECALCIFEROL 25 MCG (1000 IU) TABLET PO SCH (09:37)
[2021-06-06] MEDS: FLUoxetine HCL 20 MG CAP PO SCH (09:37)
[2021-06-06] MEDS: PREGABALIN 75 MG CAP PO SCH ×3 (09:37→22:09)
[2021-06-06] MEDS: CHOLESTYRAMINE (WITH SUGAR) 4 GM PACKET PO SCH ×2 (09:37→16:36)
[2021-06-06] MEDS: ZINC SULFATE 220 MG CAP PO SCH (09:37)
[2021-06-06] MEDS: FOLIC ACID 1 MG TAB PO SCH (11:15)
[2021-06-06] MEDS: MULTIVITAMINS, THERA 1 EACH TAB PO SCH (11:15)
--- NOTE | 2021-06-06 11:16 | P.PN ---
Subjective Progress Note Date: 06/06/21 CHIEF COMPLAINT: Hypoglycemia HISTORY OF PRESENT ILLNESS: Patient status post tracheostomy and PEG tube p lacement on 05/29/2021. Patient transferred to [facility] yesterday. She sitting up in bed. She does report some nausea. She is tolerating tube feeds. Tube feeds are at goal at 50 mL per hour. She does still has fecal management system in place. They're working on possible discharge to [facility]. Patient was seen by psychiatry regarding depression. Afebrile. PHYSICAL EXAM: VITAL SIGNS: Reviewed. GENERAL: no acute distress. HEENT: No sclera icterus. Extraocular movements grossly intact. Moist buccal mucosa. Head is atraumatic, normocephalic. Trach site clean dry and intact ABDOMEN: Soft. Nondistended. Nontender. PEG tube site clean dry and intact ASSESSMENT: 1. Acute hypoxic respiratory failure secondary to pneumonia. Patient was extubated and required to be reintubated on 05/23/2021. Patient status post tracheostomy placement 2. Severe protein calorie malnutrition. Patient status post PEG tube placement 3. Possible aspiration pneumonia PLAN: -Continue supportive care -Continue antiemetics as needed -Continue tube feeds -Antibiotics per ID -Social work addressing discharge planning Physician Conductor Pullman note has been reviewed by physician. Signing provider agrees with the documented findings, assessment, and plan of care. Objective - Vital Signs Vital signs: Vital Signs Temp 99.5 F 06/06/21 08:00 Pulse 128 H 06/06/21 08:00 Resp 19 06/06/21 08:00 BP 100/63 06/06/21 08:00 Pulse Ox 94 L 06/06/21 08:00 Intake & Output 06/05/21 06/06/21 06/06/21 18:59 06:59 18:59 Intake Total 950 Output Total 525 Balance 950 -525 Weight 48.1 kg Intake: IV 210 Fluconazole in NaCl,Iso- 50 Osm 100 mg In Saline 1 50ml.bag @ 50 mls/hr IVPB DAILY [facility] Rx#:[id number] Sodium Chloride 0.9% 1, 160 000 ml @ 40 mls/hr IV . Q24H [facility] Rx#:[id number] Tube Feeding 500 Other 240 Output: Stool 525 Other: Voiding Method External Catheter Diaper Incontinent # Voids 1 - Labs CBC & Chem 7: 06/05/21 05:59 06/05/21 05:59 Labs: Abnormal Lab Results - Last 24 Hours (Table) 06/05/21 06/05/21 06/05/21 Range/Units 05:59 12:19 20:04 POC Glucose (mg/dL) 69 L 181 H (75-99) mg/dL Hemoglobin A1c 9.1 H (0.0-6.0) % 06/05/21 06/06/21 06/06/21 Range/Units 23:48 03:54 06:55 POC Glucose (mg/dL) 184 H 178 H 154 H (75-99) mg/dL Hemoglobin A1c (0.0-6.0) % 06/06/21 Range/Units 08:11 POC Glucose (mg/dL) 143 H (75-99) mg/dL Hemoglobin A1c (0.0-6.0) % Microbiology - Last 24 Hours (Table) 06/01/21 05:19 Blood Culture - Preliminary Blood No Growth after 120 hours
[2021-06-06 11:23] LABS: Glucose,Whole Blood 190 mg/dL (75-99)
--- NOTE | 2021-06-06 15:20 | P.PN ---
Subjective Progress Note Date: 06/06/21 Principal diagnosis: Pneumonia Interval history : The patient is a 36-year-old female who presented to the hospital with an episode of unresponsiveness and concern for aspiration pneumonia. The patient subsequently did have worsening of her respiratory status, requiring intubation x2.Currently on the vent. The patient is status post trach and PEG completed 05/29/2021 On today's evaluation, 06/06/2021, The patient denies any fever or any chills, the patient is breathing comfortably on the trach collar, patient denies any chest pain , patient has been tolerating her tube feeds and no worsening diarrhea has been reported by the nursing staff, overall feeling better Objective - Vital Signs Vital signs: Vital Signs Temp 99.5 F 06/06/21 08:00 Pulse 128 H 06/06/21 08:00 Resp 19 06/06/21 08:00 BP 100/63 06/06/21 08:00 Pulse Ox 94 L 06/06/21 08:00 Intake & Output 06/05/21 06/06/21 06/06/21 18:59 06:59 18:59 Intake Total 950 Output Total 525 Balance 950 -525 Weight 48.1 kg Intake: IV 210 Fluconazole in NaCl,Iso- 50 Osm 100 mg In Saline 1 50ml.bag @ 50 mls/hr IVPB DAILY [facility] Rx#:[id number] Sodium Chloride 0.9% 1, 160 000 ml @ 40 mls/hr IV . Q24H [facility] Rx#:[id number] Tube Feeding 500 Other 240 Output: Stool 525 Other: Voiding Method External Catheter Diaper Incontinent # Voids 1 - Exam General description is a middle-aged female up in the chair in no distress Respiratory system:Unlabored breathing, decreased intensity of breath sounds. No wheeze. Heart S1, S2.Regular rate and rhythm. Abdomen soft, no tenderness Extremities: No edema feet - Labs CBC & Chem 7: 06/05/21 05:59 06/05/21 05:59 Labs: Abnormal Lab Results - Last 24 Hours (Table) 06/05/21 06/05/21 06/06/21 Range/Units 20:04 23:48 03:54 POC Glucose (mg/dL) 181 H 184 H 178 H (75-99) mg/dL 06/06/21 06/06/21 06/06/21 Range/Units 06:55 08:11 11:22 POC Glucose (mg/dL) 154 H 143 H 190 H (75-99) mg/dL Microbiology - Last 24 Hours (Table) 06/01/21 05:19 Blood Culture - Preliminary Blood No Growth after 120 hours Assessment and Plan (1) Pneumonia Current Visit: Yes Status: Acute Code(s): J18.9 - PNEUMONIA, UNSPECIFIED ORGANISM SNOMED Code(s): 657696663 Plan: 1. Patient with acute respiratory failure, likely multifactorial, with concern for possible component of aspiration pneumonia. Patient failed to be extubated and is status post trach and PEG, The patient's bronch culture has been negative for any resistant pathogen , The patient has received more than 2 weeks of IV antibiotic therapy and we'll continue to monitor closely off antibiotic 2patient developing diarrhea possible antibiotic associated stool for C. diff was negative , and Zosyn have been discontinued and patient will continue with Questran for symptomatic relief, overall diarrhea has decreased in frequency Time with Patient: Less than 30
--- NOTE | 2021-06-06 15:53 | P.PN ---
Subjective Progress Note Date: 06/06/21 Principal diagnosis: Hypoglycemia, pneumonia. Pulmonary consult dated 05/17/2021. This is a 36-year-old old female, seen in the emergency room, room 10. The patient was just discharged out of the hospital yesterday, May 16. The patient apparently returned to the emergency room, with a low blood sugar. She was brought in by EMS. She apparently has no memory of why she was in the hospital. She apparently was hungry when she came into the ER. She complained of back pain. Her blood glucose on arrival was 36. The patient was in the hospital recently for a left-sided pneumonia. The patient also has a history of diabetes with diabetic ketoacidosis. The patient is currently on O2 at 2 L. She's getting D5 0.9 at 75 mL an hour. She was given Augmentin, but we dis continued it in favor of Zosyn. The patient has a history of diabetes, diabetic neuropathy, chronic low back pain, migraine cephalgia, chronic constipation, and prior MRSA infection. White count 21.9, hemoglobin 8.8, hematocrit 28.7, and platelet count 474,000. Sodium 129, potassium 4.4, chlorides 102, CO2 24, anion gap 3, BUN 7, with a creatinine of 0.29. Albumin is 2. Urine is light yellow in color, and cloudy, leukocyte esterase being small positive, 9 WBCs, and rare bacteria. Drug screen is negative. Testing for ling virus was negative. Chest x-ray shows bilateral pneumonia, with dense consolidation within the left lung, and much less infiltrate in the right base. Progress note dated 05/18/2021. This is a 36-year-old female, who was seen in the emergency department in [facility] yesterday, and room 10. The patient was recently discharged from the hospital on May 16. She was brought back in for mental status changes, and a low blood sugar. Apparently her blood glucose was only 36. Her prior admission was for diabetic ketoacidosis, and left-sided ammonia. Currently, she is back to her normal self. The patient is on 4 L nasal O2. She's not complaining of any respiratory distress or difficulty. She has a dry nonproductive cough. She was placed on Zosyn yesterday by our team. She was seen by infectious diseases. She has a history of diabetes, diabetic neuropathy, chronic low back pain, migraine cephalgia, chronic constipation, and prior MRSA infection. Currently, white count 19.3, he will been 7.2, hematocrit 24, and platelet count 449,000. Sodium 133, potassium 3.8, chlorides 100, CO2 21, anion gap 12, UN 7, and creatinine 0.4. Pro-calcitonin level is 0.15. C-reactive protein is 5.7. The patient is seen today 06/03/2021 in follow-up in the intensive care unit. She is currently awake and alert and resting fairly comfortably in bed. She is on a trach collar at 40% FiO2 with O2 saturations in the 90s. She's been a state afebrile. Hemodynamically stable. Currently on 0.9% normal saline at 40 miles per hour. She is being nourished with vital AF 1.2 at 20 ML's per hour with a goal of 50 ML's per hour. She does have some complaints of abdominal discomfort at higher rates. She is also having issues with diarrhea FMS remains in place. Microbiology is negative. She's currently on Diflucan only. This x- ray remains stable. There is some diffuse bilateral patchy infiltrates that are unchanged. She is status post 2 units packed red blood cells this admission. Hemoglobin 9.3. White count 7.3. Sodium 140. Potassium 3.6. Creatinine 0.43. Glucose 192. The patient is seen today 06/04/2021 in follow-up in the intensive care unit. She remains awake and alert in no acute distress. She is tolerating 40% FiO2 via trach collar with O2 saturations in the 90s. She is tolerating more of her tube feeding which is vital AF at 40 ML's per hour with a goal of 50. 0.9 normal saline at KVO. She remains in sinus rhythm. She is continued on fluconazole. She is status post 2 units of packed red blood cells this admission. Most recent hemoglobin 9.3. The patient is seen today 06/05/2021 in follow-up in the intensive care unit. She is currently sitting up in bed. Awake and alert. [place] to be somewhat depressed according to staff. Not smiling. Not reacting positively as she normally does. She was seen and evaluated by psychiatric services yesterday. They are treating her depression and her excoriation disorder as she continues to pick at her scalp. Otherwise, she is stable from the pulmonary standpoint. She is doing well on 40% FiO2 via the trach collar. She has normal saline running at 40 mL per hour. She is being nourished with vital 1.2 at 50 MLS per hour which is her goal. Microbiology is negative thus far. Chest x-ray today reveals continued bilateral airspace disease right greater than left without significant change. She has received 2 units of packed red blood cells this admission. Current hemoglobin 10.5. White count 11.5. Platelets 628. Sodium 138. Potassium 3.8. Creatinine 0.35. Glucose 109. She has completed a course of antibiotics and Diflucan. Blood and sputum cultures revealed no growth. Urine culture no growth. Bronchial washings revealed no growth. Progress note dated 06/06/2021. 36-year-old female again seen in room 452. Yesterday, she was in the intensive care unit. The patient was moved out. She remains on trach collar at 60%. She's not receiving any IV fluids. The patient is getting tube feeds. She is currently sitting in a chair next to her bed. Her mother states that she is unhappy that she's out of the bed. Her mother is a nurse's aide, and we'll be able to take care of her daughter when she is discharged home. No new labs today. Chest x-ray from yesterday continues to show bilateral airspace disease, more so on the right lung than on the left. All microbiologic studies are negative. The patient is currently not on any antibiotics. Objective - Vital Signs Vital signs: Vital Signs Temp 99.1 F 06/06/21 14:00 Pulse 118 H 06/06/21 14:00 Resp 17 06/06/21 14:00 BP 114/76 06/06/21 14:00 Pulse Ox 95 06/06/21 14:00 Intake & Output 06/05/21 06/06/21 06/06/21 18:59 06:59 18:59 Intake Total 950 Output Total 525 Balance 950 -525 Weight 48.1 kg Intake: IV 210 Fluconazole in NaCl,Iso- 50 Osm 100 mg In Saline 1 50ml.bag @ 50 mls/hr IVPB DAILY [facility] Rx#:[id number] Sodium Chloride 0.9% 1, 160 000 ml @ 40 mls/hr IV . Q24H [facility] Rx#:[id number] Tube Feeding 500 Other 240 Output: Stool 525 Other: Voiding Method External Catheter Diaper Incontinent # Voids 1 - Exam No acute distress, oriented 3. The patient is status post tracheostomy, and is currently on a tracheostomy collar at 60%. HEENT examination is grossly unremarkable. Neck supple. Full range of motion. No adenopathy thyromegaly or neck vein distention. Midline tracheostomy is noted. Cardiovascular examination reveals regular rhythm rate. S1-S2 normal. No S3 or S4. No discernible murmur noted. Heart rate 101 bpm. Lungs reveal coarse bilateral breath sounds, right greater than left. No wheezes. Minimal crackles. Breath sounds are equal bilaterally. Saturations are 95% on the 60% trach collar. Abdomen soft bowel sounds are heard. No masses or tenderness. Extremities are intact. No cyanosis clubbing or edema. Skin reveals an area of excoriation on the top of her head. Neurologic examination is brief but nonfocal. - Labs CBC & Chem 7: 06/05/21 05:59 06/05/21 05:59 Labs: Abnormal Lab Results - Last 24 Hours (Table) 05/24/21 06/05/21 06/05/21 Range/Units 07:29 20:04 23:48 POC Glucose (mg/dL) 181 H 184 H (75-99) mg/dL Crossmatch See Detail 06/06/21 06/06/21 06/06/21 Range/Units 03:54 06:55 08:11 POC Glucose (mg/dL) 178 H 154 H 143 H (75-99) mg/dL Crossmatch 06/06/21 Range/Units 11:22 POC Glucose (mg/dL) 190 H (75-99) mg/dL Crossmatch Microbiology - Last 24 Hours (Table) 05/24/21 17:23 Blood Fungal Culture - Preliminary Blood 05/22/21 09:44 Fungal Culture - Preliminary Bronchial Washings - Right 06/01/21 05:19 Blood Culture - Preliminary Blood No Growth after 120 hours Assessment and Plan Assessment: Hypoxemic respiratory failure, status post respiratory arrest with intubation on 05/21/2021, and extubation on 05/23/2021. Subsequent reintubation on 05/23/2021, with eventual tracheostomy and PEG tube placement on 05/29/2021. Mental status changes, secondary to hypoglycemia. History of diabetes, with a recent episode of diabetic ketoacidosis. Dense consolidation and pneumonia bilaterally. Recent discharge from the hospital on May 16, secondary to diabetic ketoacidosis, and left lung pneumonia. History of syncope. Oropharyngeal candidiasis. History of diabetic neuropathy. History of migraine cephalgia. Prior history of MRSA infection. Chronic constipation. Chronic low back pain. Plan: Plan dated 05/17/2021. The patient's Augmentin was discontinued, in favor of Zosyn. The patient is currently on 2 L nasal cannula, and saturations are 98%. She denies all pulm onary complaints including shortness of breath, cough, wheezing, chest congestion, and phlegm production. Hemodynamically, the patient is very stable. We will continue to follow make recommendations where appropriate. Prognosis is guarded. Repeat chest x-ray in 24-48 hours. Plan dated 05/18/2021. The patient was seen by infectious diseases, and no changes made to the antibiotic. Culture data thus far has been negative. The patient's currently on 4 L nasal cannula. Saturations are in the mid to high 90s. The patient denies being short of breath. She does have an occasional dry cough. Not coughing up any phlegm. The patient will need a repeat chest x-ray. This will be done tomorrow morning. Additional recommendations and suggestions are forthcoming. Prognosis is guarded. Plan dated 06/06/2021. The patient appears to be relatively comfortable. She is on trach collar. The patient was in the ICU yesterday. She was moved out yesterday to the general medical floor. Hopeful discharge soon the near future. The patient is on 60% trach collar. It can probably be weaned down. She is not on any antibiotics at this time. Most recent pro-calcitonin level is only 0.13. Chest x-ray shows diffuse bilateral infiltrates, right greater than left. We will continue to follow make recommendations where appropriate. Prognosis is certainly guarded. Time with Patient: Less than 30
[2021-06-06 16:30] LABS: Glucose,Whole Blood 223 mg/dL (75-99)
[2021-06-06 20:16] LABS: Glucose,Whole Blood 222 mg/dL (75-99)
[2021-06-06] MEDS: INSULIN DETEMIR (LEVEMIR) 100 UNIT/ML SYR SQ SCH (22:09)
[2021-06-06] MEDS: MONTELUKAST 10 MG TAB PO SCH (22:09)
[2021-06-06] MEDS: TEMAZEPAM 15 MG CAP PO SCH (22:09)
--- NOTE | 2021-06-06 22:11 | P.PN ---
Subjective Progress Note Date: 06/06/21 This is a 36-year-old female who was recently admitted with changes in mental status along with significant hypoglycemia and is being closely monitored. Patient continues on 100% BiPAP with continued dyspnea and pulmonary following closely. Patient also found to have bilateral pneumonia possible aspiration and also a fungal urinary tract infection. Patient continues in the ICU for close monitoring and infectious disease is also following. Patient continues on IV antibiotics in the form of meropenem along with fluconazole and vancomycin and will continue. Multiple family members at the bedside. Recommend repeat chest x-ray along with labs in the morning. White blood Count elevated at 19.1. Potassium is 3.4 and magnesium 1.6 and will replace per protocol. 05/21/2021 She is seen in follow-up continues to be in the ICU being closely monitored. Patient was maintained on BiPAP and attempting airvo to allow for oral intake. Only at the bedside with multiple questions and concerns answered to the best of our ability. Patient's mentation is improved and answering questions and responding to commands appropriately. Chest x-ray today shows bilateral diffuse airspace disease with small effusion, stable with no pneumothorax noted. Infectious disease following an patient is continued on IV fluconazole along with meropenem. Blood cultures remain negative. Blood count is mildly elevated at 20.2. Patient is afebrile. Recommend repeat labs and chest x-ray in the a.m. She denies any chest pains or palpitations at this time. Patient tolerating oral intake and recommend strict aspiration precautions of head of the bed elevated 30-45 at all times and supervision with meals. 05/22/2021 Patient is seen in follow up and being closely monitored in the ICU with multiple medical consultations following. Patient was an A team this morning for acute respiratory arrest that was witnessed by nursing staff at the bedside and was changing the patient after a bowel movement and became apneic and code blue was initiated. Patient did not lose pulse but was intubated and placed on sedation. Chest xray showed moderately severe pulmonary edema without change compared to yesterday. Patient was given a dose of lasix. Patient is on some pressor support as well. Pulmonary following and patient underwent bronchoscopy with fluid analysis sent and pending. Patient is continued on IV merrem and vancomycin with ID following closely. Await finalized cultures. WBC elevated as well at 26.8. 05/23/2021 Patient is seen and evaluated this morning and continues in critical condition in the ICU. Mother at the bedside and patient was extubated this morning. Patient is currently resting on 2L of02 via NC with oxygen saturation above 90%. Patient is extremely lethargic but arousable. Chest xray shows persistent but improving airspace disease, right greater than left. Mother is at the bedside. May Patient is seen and evaluated today in follow-up continues to be in the ICU being closely monitored. Patient continues on mechanical vent with sedation and attempts at weaning continue. Pulmonary and ID following closely. Patient continues with FI02 of 60%. Patient also continues on IV fluconazole and Zosyn and will continue. Chest xray today shows bilateral multifocal and confluent opacities redemonstrated consistent with covid 19 infection and or ARDS is redemonstrated with no significant change from yesterday. 05/27/2021 Patient is seen and evaluated this morning and continues on mechanical ventilation and lightly sedated on propofol although patient is awake and following commands although fatigues easily. General surgery consulted for PEG and trach placement for pulmonary customer advocate recommendations. Infectious disease following an patient is maintained on fluconazole along with IV Zosyn and will continue. Patient continues with multiple episodes of loose stool with fecal management system and C. diff testing is ordered. Potassium mildly low at 3.4 and will replace per protocol. Magnesium is 2.2 today. Chest x-ray today shows patchy bilateral lung infiltrates that are stable. 05/28/2021 Patient is seen in follow-up in the ICU continues to be closely monitored with multiple medical consultations following. Plan for today was possible peg and trach placement although surgery extremely busy and will likely occur tomorrow. Patient continues on IV abx with ID following closely. Patient continues on mechanical vent with an FI02 of 50%. Minimally sedated. 05/29/2021 Patient is seen this morning status post PEG tube and tracheostomy placement and continues on mechanical vent with an FiO2 of 50% and PEEP is 5. Mother at the bedside with questions and concerns answered. PEG tube on hold currently for 24 hours and awaiting clearance from surgery to start tube feedings. Chest x-ray today shows bilateral multifocal and confluent opacification greatest in the right lung are redemonstrated consistent with COVID-19 and/or arts with no significant change from previous day. Patient is awake and nodding yes and no appropriately. 05/30/2021 Patient is seen today currently sitting up in the chair and recently placed on trach collar as she is status post tracheostomy and PEG tube placement yesterday. Tube feedings were started on the PEG tube although patient became nauseated and currently on hold and will continue to monitor. Patient continues with loose stool and does have fecal management system that is intact. Recommen d to keep the rectal tubing as patient experiences more frequent episodes of loose stool with feedings. Trach collar is 50% FiO2. Patient continues on IV zosyn with ID following. 05/31/2021 Patient evaluated today in the ICU resting in bed. [place]rellana catheter and fecal management system in place. Oxygenation maintained on trach collar with Fi02 of 50% and oxygen saturation of 96%. Patient does present with congested cough. She is nauseas today and feels like she wants to throw up. Nurse reports minimal residual volumes with feedings. Tube feedings were placed on hold, and she will be placed to suction via PEG tube. Concerns for aspiration. She is getting IV zofran and IV protonix. Repeat chest xray today shows slight interval worsening of multifocal airspace opacities right greater than left. Labs today show WBC 15.2, hgb 9.2, platelet count 533, sodium 137, potassium 4.2, glucose in the 180s. Patient with low grade fever 99.3, heart rate 108, respirations 17, blood pressure 116/73, 96% on trach collar. All cultures negative. Continues on IV Zosyn and IV fluconazole. 06/01/2021 Patient evaluated today in bed with HOB around 30. Per RN she was up in the chair yesterday. Indwelling catheter and Fecal management system in place. Patient is on trach colloar with FiO2 50% with oxygen saturation of 97%. Blood pressures are marginal at 98/76, respirations 14, heart rate 105, afebrile. Patient to feedings were placed on hold yesterday with PEG tube to suction. She still complains of ongoing nausea which is not improved. She is no longer dry heaving on my assessment. Patient is in a negative fluid balance. We will start patient's IV hydration with normal saline at 75 mL per hour. She continues on IV Zofran. She is also on IV Tylenol, IV fluconazole, IV Zosyn. Chest x-ray shows correlation for pneumonia. Blood fungal culture is currently pending. 06/02/2021 Patient is seen and evaluated in follow up this morning and continues to be in the ICU being closely monitored. Patient is currently up in the chair and on trach collar at 60% although per nursing staff being weaned down to 40%. Patient persists with nausea and having high residuals and tube feeds on hold. Reglan scheduled being added and will resume tube feeds once nausea improves and start slowly on tube feeds. Chest xray today shows patchy and confluent bilateral airspace disease right greater than left that shows slight interval worsening. Patient remains on IV zosyn and fluconazole with ID following as well. 06/03/2021 Patient is seen in follow-up this morning lethargic although arousable and continues on trach collar and tolerating well at 60% FiO2. Currently being titrated down to 40% and oxygen saturations remained above 95%. Patient is afebrile and no reports of worsening shortness of breath or chest pain. Chest x-ray today shows stable portable chest with diffuse bilateral patchy infiltrates persist and unchanged and pleural effusion also unchanged. Multiple medical consultations including general surgery, infectious disease and pulmonary customer advocate following. Family is now agreeable to [facility] for some rehab for strength and mobility and social work following and working on accepting facility. Patient continues on antifungal and is off IV antibiotics with infectious disease following closely. 06/04/2021 Patient is seen this morning in follow-up continues on a trach collar with an FiO2 of 40% and tolerating well. continues with secretion and suctioning. Patient continues to be withdrawn and does have an extensive history of depression and is frustrated with prolonged hospitalization and misses her children. No new chest xray today or labs and will repeat in the am. Psychiatry consulted to evaluate the possible need for medication adjustments and appreciat e input and recommendations. social work following and looking on accepting facilities. Patient may likely need LTAC. Patient also continues to pick nervously at scalp of which has been ongoing but worsening since admission. Will add bacitracin and encouraged the patient to avoid picking. 06/05/2021 Patient is seen today continues to be in the ICU maintaining oxygen saturations are trach collar with an FiO2 of 40% chest x-ray continues to show bilateral airspace disease right greater than left without significant change. Multiple medical consultations following including psychiatry and has made some adjustments to medications and added sleep aid. Patient continues to pick at her scalp and is worsening although does not appear infected. Wound care consulted and appreciate input and recommendations. Patient currently awaiting a bed out of the ICU and SNF acceptance that can manage a trach collar. 06/06/2021 Patient is seen this morning and is on the med/surg floor and is tolerating trach collar at 40%. Pulmonary, psychiatry, and ID following. Patient continues to be weak and is working with physical therapy daily. Patient currently has a cap over her scalp which appears to be somewhat helping with her excessive picking of the wound. Continue local wound care. Patient appears in better spirits today. Spoke with mother today at the bedside about finding a suitable SNF or facility that has respiratory therapy on staff to assist with trach care and frequent suctioning that she has been requiring. Patient is currently off antibiotics and afebrile. No new labs from today and will order repeat labs along with a chest xray. Continue close monitoring of blood sugars as well and current medication regimen. Review of systems: Constitutional: No reports of fatigue, no reports of fever, or chills Cardiovascular: No reports of chest pain or palpitations Respiratory: No reports of worsening shortness of breath or cough status post tracheostomy and trach collar, frequent suctioning GI: No reports of nausea, vomiting, reports continued loose stool with slight improvement. Tolerating tube feeds : No reports of dysuria or retention Neurovascular: Reports of generalized weakness All medications have been reviewed Active Medications Acetaminophen (Acetaminophen Tab 325 Mg Tab) 650 mg PO Q6HR PRN PRN Reason: Fever and/ or Mild Pain Last Admin: 05/23/21 04:35 Dose: 650 mg Documented by: Cholecalciferol (Cholecalciferol 25 Mcg (1000 Iu) Tablet) 50 mcg PO DAILY [facility] Last Admin: 06/06/21 09:37 Dose: 50 mcg Documented by: Cholestyramine Resin (Cholestyramine (With Sugar) 4 Gm Packet) 4 gm PO BID@1000,1800 [facility] Last Admin: 06/06/21 09:37 Dose: 4 gm Documented by: Fluoxetine HCl (Fluoxetine Hcl 20 Mg Cap) 40 mg PO DAILY [facility] Last Admin: 06/06/21 09:37 Dose: 40 mg Documented by: Folic Acid (Folic Acid 1 Mg Tab) 1 mg PO DAILY@1200 [facility] Last Admin: 06/06/21 11:15 Dose: 1 mg Documented by: Hydromorphone HCl (Hydromorphone 0.5 Mg/0.5 Ml Syringe) 0.5 mg IVP Q3HR PRN PRN Reason: Severe Pain Last Admin: 06/06/21 09:44 Dose: 0.5 mg Documented by: Acetaminophen 1,000 mg/ IV (Solution) 100 mls @ 400 mls/hr IVPB Q6HR PRN PRN Reason: Fever Stop: 06/09/21 08:05 Insulin Aspart (Insulin Aspart (Novolog) 100 Unit/Ml Vial) 0 unit SQ Q4H [facility]; Protocol Last Admin: 06/06/21 13:28 Dose: 2 unit Documented by: Insulin Detemir (Insulin Detemir (Levemir) 100 Unit/Ml Syr) 20 unit SQ [facility] Last Admin: 06/05/21 21:00 Dose: Not Given Documented by: Metoclopramide HCl (Metoclopramide 5 Mg/Ml 2 Ml Vial) 5 mg IVP Q6HR PRN PRN Reason: Nausea And Vomiting Last Admin: 06/02/21 15:30 Dose: 5 mg Documented by: Miscellaneous Information (Magnesium Replacement Protocol 1 Each Misc) 1 each MISCELLANE DAILY PRN; Protocol PRN Reason: Per Protocol Miscellaneous Information (Potassium Replacement Protocol 1 Each Misc) 1 each MISCELLANE DAILY PRN; Protocol PRN Reason: Per Protocol Montelukast Sodium (Montelukast 10 Mg Tab) 10 mg PO [facility] Last Admin: 06/05/21 22:14 Dose: 10 mg Documented by: Multivitamins (Multivitamins, Thera 1 Each Tab) 1 each PO DAILY@1200 [facility] Last Admin: 06/06/21 11:15 Dose: 1 each Documented by: Ondansetron HCl (Ondansetron 4 Mg/2 Ml Vial) 4 mg IVP Q6HR PRN PRN Reason: Nausea And Vomiting Last Admin: 06/04/21 03:41 Dose: 4 mg Documented by: Pantoprazole Sodium (Pantoprazole 40 Mg/10 Ml Vial) 40 mg IVP DAILY [facility] Last Admin: 06/06/21 09:36 Dose: 40 mg Documented by: Pregabalin (Pregabalin 75 Mg Cap) 75 mg PO TID [facility] Last Admin: 06/06/21 09:37 Dose: 75 mg Documented by: Sumatriptan Succinate (Sumatriptan Succinate 50 Mg Tab) 100 mg PO DAILY PRN PRN Reason: Migraine Headache Temazepam (Temazepam 15 Mg Cap) 15 mg PO HS [facility] Last Admin: 06/05/21 22:14 Dose: 15 mg Documented by: Thiamine HCl (Thiamine 100 Mg Tab) 100 mg PO BID-W/MEALS [facility] Last Admin: 06/06/21 07:49 Dose: 100 mg Documented by: Zinc Sulfate (Zinc Sulfate 220 Mg Cap) 220 mg PO DAILY [facility] Last Admin: 06/06/21 09:37 Dose: 220 mg Documented by: Physical Exam: Gen: This is a 36-year-old female who is awake, alert and oriented x3. More cheerful today on exam. Status post tracheostomy placement, thin built, cachectic. on 40% FiO2 trach collar HEENT: Head is atraumatic, normocephalic. Pupils equal, round. Sclerae is anicteric. oral mucosa moist NECK: Supple. No JVD. No lymphadenopathy. No thyromegaly. tracheostomy and collar noted LUNGS: Breath sounds diminished with scattered rhonchi noted. No intercostal retractions. HEART: S1, S2 are muffled ABDOMEN: Soft. Bowel sounds are present. No masses. No tenderness. peg tube noted EXTREMITIES: No pedal edema. No calf tenderness. NEUROLOGICAL: Patient is awake, alert and oriented x3. Nodding yes and no to questions and commands appropriately. 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 Infectious disease and pulmonary following closely and patient remains on FI02 is down to 40% trach collar and tolerating well. Patient continues to need frequent suctioning. Tolerating tube feedings and patient continues with loose stool and fecal management system may have a component of IBS. Rohan as well. Recommend to keep the bed elevated 30-45 at all times and maintain aspiration precautions. Blood cultures remain negative. ID following and has been off IV antibiotics. Recommend to continue to monitor blood sugars closely. social work following and looking for accepting facilities. Patient needs a facility that has respiratory on staff that can assist with trach care and frequent suctioning. Continue local wound care to the scalp with frequent reminders to avoid picking at the scalp. No new labs from today and will order along with a chest xray. Will continue to monitor closely. Objective - Vital Signs Vital signs: Vital Signs Temp 99.5 F 06/06/21 08:00 Pulse 128 H 06/06/21 08:00 Resp 19 06/06/21 08:00 BP 100/63 06/06/21 08:00 Pulse Ox 94 L 06/06/21 08:00 Intake & Output 06/05/21 06/06/21 06/06/21 18:59 06:59 18:59 Intake Total 950 Output Total 525 Balance 950 -525 Weight 48.1 kg Intake: IV 210 Fluconazole in NaCl,Iso- 50 Osm 100 mg In Saline 1 50ml.bag @ 50 mls/hr IVPB DAILY [facility] Rx#:[id number] Sodium Chloride 0.9% 1, 160 000 ml @ 40 mls/hr IV . Q24H [facility] Rx#:[id number] Tube Feeding 500 Other 240 Output: Stool 525 Other: Voiding Method External Catheter Diaper Incontinent # Voids 1 - Labs CBC & Chem 7: 06/05/21 05:59 06/05/21 05:59 Labs: Abnormal Lab Results - Last 24 Hours (Table) 06/05/21 06/05/21 06/05/21 Range/Units 05:59 12:19 20:04 POC Glucose (mg/dL) 69 L 181 H (75-99) mg/dL Hemoglobin A1c 9.1 H (0.0-6.0) % 06/05/21 06/06/21 06/06/21 Range/Units 23:48 03:54 06:55 POC Glucose (mg/dL) 184 H 178 H 154 H (75-99) mg/dL Hemoglobin A1c (0.0-6.0) % 06/06/21 Range/Units 08:11 POC Glucose (mg/dL) 143 H (75-99) mg/dL Hemoglobin A1c (0.0-6.0) % Microbiology - Last 24 Hours (Table) 06/01/21 05:19 Blood Culture - Preliminary Blood No Growth after 120 hours
[2021-06-06 23:56] LABS: Glucose,Whole Blood 273 mg/dL (75-99)
[2021-06-07 00:18] LABS: Glucose,Whole Blood 269 mg/dL (75-99)
[2021-06-07] MEDS: INSULIN ASPART (NovoLOG) 100 UNIT/ML VIAL SQ SCH ×7 (00:21→23:58)
[2021-06-07] MEDS: HYDROmorphone 0.5 MG/0.5 ML SYRINGE IVP PRN ×5 (03:18→19:42)
[2021-06-07 03:24] LABS: Glucose,Whole Blood 170 mg/dL (75-99)
[2021-06-07 05:20] LABS: African American GFR (CKD) >90 (>60 ml/min/1.73 sqM); Anion Gap 2 mmol/L; Blood Urea Nitrogen 13 mg/dL (7-17); Carbon Dioxide 33 mmol/L (22-30); Chloride 104 mmol/L (98-107); Glucose 165 mg/dL (74-99); Non-African American GFR(CKD) >90 (>60 ml/min/1.73 sqM); Potassium 3.9 mmol/L (3.5-5.1); Sodium 139 mmol/L (137-145)
[2021-06-07 06:06] LABS: Anisocytosis Slight; Basophils # (A) 0.1 k/uL (0-0.2); Basophils % (A) 1 %; Eosinophils # (A) 0.1 k/uL (0-0.7); Eosinophils % (A) 1 %; HCT 29.9 % (34.0-46.0); Hypochromasia Marked; Lymphocytes # (A) 1.2 k/uL (1.0-4.8); Lymphocytes % (A) 10 %; MCH 25.9 pg (25.0-35.0); MCHC 29.5 g/dL (31.0-37.0); MCV 87.8 fL (80.0-100.0); Mean Platelet Volume 8.1; Monocytes # (A) 0.5 k/uL (0-1.0); Monocytes % (A) 4 %; Neutrophils # (A) 9.4 k/uL (1.3-7.7); Neutrophils % (A) 83 %; Platelet Count 539 k/uL (150-450); Poikilocytosis Slight; RBC 3.41 m/uL (3.80-5.40); WBC 11.4 k/uL (3.8-10.6)
[2021-06-07 06:08] LABS: HGB 8.8 gm/dL (11.4-16.0)
--- NOTE | 2021-06-07 06:54 | XR ---
EXAMINATION TYPE: XR chest 1V portable DATE OF EXAM: 06/07/2021 COMPARISON: 06/05/2021 HISTORY: Shortness of breath TECHNIQUE: Single frontal view of the chest is obtained. FINDINGS: There are marked partially consolidative opacities in the right lung and moderate diffuse interstitial opacity in the left lung unchanged compared to previous. There is no pneumothorax or large pleural effusion although small right effusion is not excluded. The heart is mildly prominent. No change in the right-sided PICC line or tracheostomy tube. The osseous structures are intact. IMPRESSION: No change in the acute cardiopulmonary disease.
[2021-06-07 08:08] LABS: Glucose,Whole Blood 91 mg/dL (75-99)
[2021-06-07] MEDS: ZINC SULFATE 220 MG CAP PO SCH (08:25)
[2021-06-07] MEDS: PANTOPRAZOLE 40 MG/10 ML VIAL IVP SCH (08:25)
[2021-06-07] MEDS: FOLIC ACID 1 MG TAB PO SCH (08:26)
[2021-06-07] MEDS: FLUoxetine HCL 20 MG CAP PO SCH (08:26)
[2021-06-07] MEDS: PREGABALIN 75 MG CAP PO SCH ×3 (08:26→21:17)
[2021-06-07] MEDS: CHOLESTYRAMINE (WITH SUGAR) 4 GM PACKET PO SCH ×2 (08:26→17:18)
[2021-06-07] MEDS: MULTIVITAMINS, THERA 1 EACH TAB PO SCH (08:26)
[2021-06-07] MEDS: CHOLECALCIFEROL 25 MCG (1000 IU) TABLET PO SCH (08:26)
[2021-06-07] MEDS: THIAMINE 100 MG TAB PO SCH ×2 (08:26→17:18)
[2021-06-07] MEDS: ONDANSETRON 4 MG/2 ML VIAL IVP PRN ×2 (08:37→17:36)
[2021-06-07 12:04] LABS: Glucose,Whole Blood 131 mg/dL (75-99)
--- NOTE | 2021-06-07 13:41 | P.PN ---
Subjective Progress Note Date: 06/07/21 CHIEF COMPLAINT: Coronavirus pneumonia HISTORY OF PRESENT ILLNESS: The patient is a 36-year-old female status post tracheostomy and gastrostomy placement during current hospitalization is now on tube feeds. She is on the medical floor. She is pending transfer to rehab center. She is sitting up in the chair. No new complainsts. ROS: No fevers or chills. No new chest pain. PHYSICAL EXAM: VITAL SIGNS: Reviewed CONSTITUTIONAL: Well developed and in no acute distress. EYES: Conjuctivae without sclera icterus. Extraocular movements grossly intact. HEAD, EARS, NOSE, THROAT: Moist buccal mucosa. Head is atraumatic, normocephalic. No nasal drainage. RESPIRATORY: Non-labored respirations and equal bilateral excursions. CARDIOVASCULAR: Palpable 2+ radial pulses. ABDOMEN: Gastrostomy tube intact. MUSCULOSKELETAL: No gross deformity of the lower extremities noted. No clubbing. No cyanosis. SKIN: Good skin turgor. Well perfused. NEUROLOGIC: Cranial nerves II through XII grossly intact. No focal or lateralizing signs. PSYCH: Alert to person. CLINICAL LABS: Reviewed. WBC elevated over 11,000. Hemoglobin low 8.8, anemia ASSESSMENT: 1. Coronavirus pneumonia with complications 2. Status post tracheostomy and gastrostomy 3. Leukocytosis with sepsis 4. Anemia PLAN: 1. Agreeable for transfer to rehab center when medically stable Objective - Vital Signs Vital signs: Vital Signs Temp 98.2 F 06/07/21 07:37 Pulse 117 H 06/07/21 07:37 Resp 19 06/07/21 07:37 BP 116/78 06/07/21 07:37 Pulse Ox 95 06/07/21 07:37 Intake & Output 06/06/21 06/07/21 06/07/21 18:59 06:59 18:59 Weight 46.1 kg Other: Voiding Method Diaper Diaper Incontinent Incontinent # Voids 3 - Labs CBC & Chem 7: 06/07/21 04:17 06/07/21 04:17 Labs: Abnormal Lab Results - Last 24 Hours (Table) 05/24/21 06/06/21 06/06/21 Range/Units 07:29 16:28 20:14 WBC (3.8-10.6) k/uL RBC (3.80-5.40) m/uL Hgb (11.4-16.0) gm/dL Hct (34.0-46.0) % MCHC (31.0-37.0) g/dL RDW (11.5-15.5) % Plt Count (150-450) k/uL Neutrophils # (1.3-7.7) k/uL Carbon Dioxide (22-30) mmol/L Creatinine (0.52-1.04) mg/dL Glucose (74-99) mg/dL POC Glucose (mg/dL) 223 H 222 H (75-99) mg/dL Calcium (8.4-10.2) mg/dL Crossmatch See Detail 06/06/21 06/07/21 06/07/21 Range/Units 23:55 00:17 03:16 WBC (3.8-10.6) k/uL RBC (3.80-5.40) m/uL Hgb (11.4-16.0) gm/dL Hct (34.0-46.0) % MCHC (31.0-37.0) g/dL RDW (11.5-15.5) % Plt Count (150-450) k/uL Neutrophils # (1.3-7.7) k/uL Carbon Dioxide (22-30) mmol/L Creatinine (0.52-1.04) mg/dL Glucose (74-99) mg/dL POC Glucose (mg/dL) 273 H 269 H 170 H (75-99) mg/dL Calcium (8.4-10.2) mg/dL Crossmatch 06/07/21 06/07/21 Range/Units 04:17 04:17 WBC 11.4 H (3.8-10.6) k/uL RBC 3.41 L (3.80-5.40) m/uL Hgb 8.8 L D (11.4-16.0) gm/dL Hct 29.9 L (34.0-46.0) % MCHC 29.5 L (31.0-37.0) g/dL RDW 16.0 H (11.5-15.5) % Plt Count 539 H (150-450) k/uL Neutrophils # 9.4 H (1.3-7.7) k/uL Carbon Dioxide 33 H (22-30) mmol/L Creatinine 0.42 L (0.52-1.04) mg/dL Glucose 165 H (74-99) mg/dL POC Glucose (mg/dL) (75-99) mg/dL Calcium 8.0 L (8.4-10.2) mg/dL Crossmatch Microbiology - Last 24 Hours (Table) 06/01/21 05:19 Blood Culture - Final Blood No Growth after 144 hours 05/24/21 17:23 Blood Fungal Culture - Preliminary Blood 05/22/21 09:44 Fungal Culture - Preliminary Bronchial Washings - Right
[2021-06-07 16:08] LABS: Glucose,Whole Blood 124 mg/dL (75-99)
--- NOTE | 2021-06-07 16:27 | P.PN ---
Subjective Progress Note Date: 06/07/21 The patient is seen today 06/03/2021 in follow-up in the intensive care unit. She is currently awake and alert and resting fairly comfortably in bed. She is on a trach collar at 40% FiO2 with O2 saturations in the 90s. She's been a state afebrile. Hemodynamically stable. Currently on 0.9% normal saline at 40 miles per hour. She is being nourished with vital AF 1.2 at 20 ML's per hour with a goal of 50 ML's per hour. She does have some complaints of abdominal discomfort at higher rates. She is also having issues with diarrhea FMS remains in place. Microbiology is negative. She's currently on Diflucan only. This x- ray remains stable. There is some diffuse bilateral patchy infiltrates that are unchanged. She is status post 2 units packed red blood cells this admission. Hemoglobin 9.3. White count 7.3. Sodium 140. Potassium 3.6. Creatinine 0.43. Glucose 192. The patient is seen today 06/04/2021 in follow-up in the intensive care unit. She remains awake and alert in no acute distress. She is tolerating 40% FiO2 via trach collar with O2 saturations in the 90s. She is tolerating more of her tube feeding which is vital AF at 40 ML's per hour with a goal of 50. 0.9 normal saline at KVO. She remains in sinus rhythm. She is continued on fluconazole. She is status post 2 units of packed red blood cells this admission. Most recent hemoglobin 9.3. The patient is seen today 06/05/2021 in follow-up in the intensive care unit. She is currently sitting up in bed. Awake and alert. [place] to be somewhat depressed according to staff. Not smiling. Not reacting positively as she normally does. She was seen and evaluated by psychiatric services yesterday. They are treating her depression and her excoriation disorder as she continues to pick at her scalp. Otherwise, she is stable from the pulmonary standpoint. She is doing well on 40% FiO2 via the trach collar. She has normal saline running at 40 mL per hour. She is being nourished with vital 1.2 at 50 MLS per hour which is her goal. Microbiology is negative thus far. Chest x-ray today reveals continued bilateral airspace disease right greater than left without significant change. She has received 2 units of packed red blood cells this admission. Current hemoglobin 10.5. White count 11.5. Platelets 628. Sodium 138. Potassium 3.8. Creatinine 0.35. Glucose 109. She has completed a course of antibiotics and Diflucan. Blood and sputum cultures revealed no growth. Urine culture no growth. Bronchial washings revealed no growth. The patient is seen today 06/07/2021 in follow-up on the regular medical floor. She is currently sitting up in a chair at the bedside. Awake and alert in no acute distress. She is maintaining O2 saturations in the 90s on 60% trach collar. She is being nourished with vital AF at 50 MLS per hour. White count 11.4. Hemoglobin 8.8. Sodium 139. Potassium 3.9. Creatinine 0.42. Glucose 165. Chest x-ray reveals partially consolidative opacities in the right lung and moderate diffuse interstitial opacity in the left lung. Unchanged compared to previous. Objective - Vital Signs Vital signs: Vital Signs Temp 98.4 F 06/07/21 14:29 Pulse 112 H 06/07/21 14:29 Resp 17 06/07/21 14:29 BP 101/65 06/07/21 14:29 Pulse Ox 100 06/07/21 14:29 Intake & Output 06/06/21 06/07/21 06/07/21 18:59 06:59 18:59 Weight 46.1 kg Other: Voiding Method Diaper Diaper Incontinent Incontinent # Voids 3 - Exam GENERAL EXAM: Awake and alert, trached 36-year-old frail looking female, on 60% trach collar, up in a chair at the bedside comfortable in no apparent distress. HEAD: Normocephalic with a large area on the top of her head with open wound and excoriation from picking. EYES: Normal reaction of pupils, equal size. Conjunctiva pink, sclera white. NOSE: Clear with pink turbinates. MOUTH: She has ulcerations of her oral cavity THROAT: No erythema or exudates. NECK: No masses, no JVD, no thyroid enlargement, no adenopathy. Midline tracheostomy in place, on 60% trach collar, breathing comfortably patient is c lean dry and intact CHEST: No chest wall deformity. Symmetrical expansion. LUNGS: Diminished air entry with few scattered rhonchi bilaterally. CVS: Regular rate and rhythm, normal S1 and S2, no gallops, no murmurs, no rubs ABDOMEN: Soft, nontender. No hepatosplenomegaly, normal bowel sounds, no g uarding or rigidity. PEG tube covered with a surgical dressing EXTREMITIES: No clubbing, no edema, no cyanosis, 2+ pulses and upper and lower extremities. MUSCULOSKELETAL: Muscle strength and tone normal. SPINE: No scoliosis or deformity SKIN: No rashes CENTRAL NERVOUS SYSTEM: Awake and alert, following command No focal deficits, tone is normal in all 4 extremities. - Labs CBC & Chem 7: 06/07/21 04:17 06/07/21 04:17 Labs: Abnormal Lab Results - Last 24 Hours (Table) 06/06/21 06/06/21 06/06/21 Range/Units 16:28 20:14 23:55 WBC (3.8-10.6) k/uL RBC (3.80-5.40) m/uL Hgb (11.4-16.0) gm/dL Hct (34.0-46.0) % MCHC (31.0-37.0) g/dL RDW (11.5-15.5) % Plt Count (150-450) k/uL Neutrophils # (1.3-7.7) k/uL Carbon Dioxide (22-30) mmol/L Creatinine (0.52-1.04) mg/dL Glucose (74-99) mg/dL POC Glucose (mg/dL) 223 H 222 H 273 H (75-99) mg/dL Calcium (8.4-10.2) mg/dL 06/07/21 06/07/21 06/07/21 Range/Units 00:17 03:16 04:17 WBC 11.4 H (3.8-10.6) k/uL RBC 3.41 L (3.80-5.40) m/uL Hgb 8.8 L D (11.4-16.0) gm/dL Hct 29.9 L (34.0-46.0) % MCHC 29.5 L (31.0-37.0) g/dL RDW 16.0 H (11.5-15.5) % Plt Count 539 H (150-450) k/uL Neutrophils # 9.4 H (1.3-7.7) k/uL Carbon Dioxide (22-30) mmol/L Creatinine (0.52-1.04) mg/dL Glucose (74-99) mg/dL POC Glucose (mg/dL) 269 H 170 H (75-99) mg/dL Calcium (8.4-10.2) mg/dL 06/07/21 06/07/21 06/07/21 Range/Units 04:17 12:02 16:06 WBC (3.8-10.6) k/uL RBC (3.80-5.40) m/uL Hgb (11.4-16.0) gm/dL Hct (34.0-46.0) % MCHC (31.0-37.0) g/dL RDW (11.5-15.5) % Plt Count (150-450) k/uL Neutrophils # (1.3-7.7) k/uL Carbon Dioxide 33 H (22-30) mmol/L Creatinine 0.42 L (0.52-1.04) mg/dL Glucose 165 H (74-99) mg/dL POC Glucose (mg/dL) 131 H 124 H (75-99) mg/dL Calcium 8.0 L (8.4-10.2) mg/dL Microbiology - Last 24 Hours (Table) 06/01/21 05:19 Blood Culture - Final Blood No Growth after 144 hours 05/24/21 17:23 Blood Fungal Culture - Preliminary Blood 05/22/21 09:44 Fungal Culture - Preliminary Bronchial Washings - Right Assessment and Plan Assessment: 1 Acute hypoxic respiratory failure related to worsening and progression of pneumonia, and chest x-ray showing patchy consolidation involving the right midlung, right upper lobe and right lower lobe in addition to extensive consolidation of the left lung with possibly some cavitation. Suffered acute respiratory arrest on 05/21/2021 and was intubated, patient was successfully weaned and extubated on 05/23/2021 however failed again and had to be reintubated later that evening on 05/23/2021. In view of multiple episodes of respiratory failure patient was considered for tracheostomy and PEG tube placement for weaning. Patient is status post bronchoscopy with bronchoalveolar lavage on 05/23/2021, cultures are all negative. Patient is status post trache ostomy and PEG tube placement on 05/29/2021, currently on 60% trach collar 2 Altered mental status secondary to hypoglycemia. Patient had recovered, and she was back to baseline neurologically. Currently lightly sedated, patient is still intubated, but patient is following all commands 3 History of diabetes, and recent episode of diabetic ketoacidosis, recovered. Levemir insulin has been discontinued and patient is currently covered with sliding scale NovoLog, her last episode of hypoglycemia was on 05/19/2021 with a blood sugar of 45. No recurrence of hypoglycemia since 4 History of syncopal episodes related to hypoglycemia 5 History of migraine cephalgia 6 History of diabetic neuropathy 7 Chronic constipation 8 Chronic low back pain 9 Tongue and oral pharyngeal candidiasis, with ulcerations. 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 Lungs sounds with bilateral scattered rhonchi. Maintaining good O2 saturations in the 90s on 60% FiO2 via trach collar. I discussed the assessment and plan of care with my nurse practitioner, Daniela Foreman. I attest to the above note as dictated by her.
[2021-06-07 20:14] LABS: Glucose,Whole Blood 159 mg/dL (75-99)
[2021-06-07] MEDS: TEMAZEPAM 15 MG CAP PO SCH (21:17)
[2021-06-07] MEDS: MONTELUKAST 10 MG TAB PO SCH (21:17)
[2021-06-07] MEDS: INSULIN DETEMIR (LEVEMIR) 100 UNIT/ML SYR SQ SCH (21:17)
[2021-06-07 23:51] LABS: Glucose,Whole Blood 213 mg/dL (75-99)
[2021-06-08] MEDS: HYDROmorphone 0.5 MG/0.5 ML SYRINGE IVP PRN ×7 (01:06→21:49)
[2021-06-08 03:53] LABS: Glucose,Whole Blood 97 mg/dL (75-99)
[2021-06-08] MEDS: INSULIN ASPART (NovoLOG) 100 UNIT/ML VIAL SQ SCH ×5 (04:31→20:42)
[2021-06-08 08:00] LABS: Glucose,Whole Blood 66 mg/dL (75-99)
[2021-06-08] MEDS: MULTIVITAMINS, THERA 1 EACH TAB PO SCH (08:10)
[2021-06-08] MEDS: CHOLESTYRAMINE (WITH SUGAR) 4 GM PACKET PO SCH ×2 (08:10→17:06)
[2021-06-08] MEDS: PANTOPRAZOLE 40 MG/10 ML VIAL IVP SCH (08:10)
[2021-06-08] MEDS: FLUoxetine HCL 20 MG CAP PO SCH (08:10)
[2021-06-08] MEDS: ZINC SULFATE 220 MG CAP PO SCH (08:10)
[2021-06-08] MEDS: THIAMINE 100 MG TAB PO SCH ×2 (08:10→17:06)
[2021-06-08] MEDS: FOLIC ACID 1 MG TAB PO SCH (08:10)
[2021-06-08] MEDS: PREGABALIN 75 MG CAP PO SCH ×3 (08:10→21:49)
[2021-06-08] MEDS: CHOLECALCIFEROL 25 MCG (1000 IU) TABLET PO SCH (08:10)
[2021-06-08] MEDS ORDERED: DEXTROSE 50% SYRINGE 50 ML IVP STA (08:42)
[2021-06-08 08:43] LABS: Glucose,Whole Blood 57 mg/dL (75-99)
[2021-06-08] MEDS ORDERED: DEXTROSE 50% SYRINGE 50 ML IVP ONE (08:46)
[2021-06-08 09:20] LABS: Glucose,Whole Blood 148 mg/dL (75-99)
[2021-06-08 09:20] LABS: Basophils # (A) 0.08 X 10*3/uL (0.00-0.10); Basophils % (A) 0.8 %; Eosinophils # (A) 0.31 X 10*3/uL (0.04-0.35); Eosinophils % (A) 3.1 %; HCT 27.5 % (37.2-46.3); Immature Grans, Automated 0.3 %; Lymphocytes # (A) 1.45 X 10*3/uL (0.90-5.00); Lymphocytes % (A) 14.4 %; MCH 25.3 pg (27.0-32.0); MCHC 29.1 g/dL (32.0-37.0); Mean Platelet Volume 10.6 fL (9.5-12.2); Monocytes # (A) 0.88 X 10*3/uL (0.20-1.00); Monocytes % (A) 8.8 %; NRBC Per 100 WBC 0 /100 WBCS (0.0-0.0); Neutrophils # (A) 7.29 X 10*3/uL (1.80-7.70); Neutrophils % (A) 72.6 %; Platelet Count 538 X 10*3/uL (140-440); RBC 3.16 X 10*6/uL (4.10-5.20); RDW 15.8 % (11.5-14.5); WBC 10.04 X 10*3/uL (4.50-10.00)
[2021-06-08 09:30] LABS: African American GFR (CKD) 157.3 (60.0-200.0); Anion Gap 7.6 mmol/L (10.00-18.00); BUN/Creat Ratio 33.06 Ratio (12.00-20.00); Blood Urea Nitrogen 12.2 mg/dL (9.0-27.0); Calcium 8.1 mg/dL (8.7-10.3); Carbon Dioxide 30.1 mmol/L (20.0-27.5); Non-African American GFR(CKD) 135.7 (60.0-200.0); Potassium 3.8 mmol/L (3.5-5.5)
[2021-06-08] MEDS: ONDANSETRON 4 MG/2 ML VIAL IVP PRN (09:31)
[2021-06-08] MEDS ORDERED: RX INFO: IV CONTRAST WAS GIVEN 1 EACH MISC MISCELLANE PRN (10:58)
[2021-06-08 11:40] LABS: Glucose,Whole Blood 114 mg/dL (75-99)
--- NOTE | 2021-06-08 12:48 | CT ---
EXAMINATION TYPE: CT chest w con DATE OF EXAM: 06/08/2021 COMPARISON: CT chest 05/13/2021 HISTORY: Hypoxemia CT DLP: 176.8 mGycm Automated exposure control for dose reduction was used. TECHNIQUE: CT scan of the chest is performed with IV Contrast, patient injected with 1000 mL of Isovue 300. MIP Images are created on CT scanner and reviewed. 3D reconstructed images are created on an independent workstation and reviewed. FINDINGS: LUNGS: Diffuse groundglass and reticulonodular opacity in the lungs with consolidative opacity lower and right upper/middle lobes. Tracheostomy cannula. MEDIASTINUM: There are no greater than 1 cm hilar or mediastinal lymph nodes. Scattered prominent med iastinal lymph nodes. No pericardial effusion is seen. The heart is not enlarged. Contrast opacifie s the central pulmonary arteries without filling defect. Limited assessment of the segmental and subs egmental vessels. OTHER: There is hypodensity of the liver suggesting steatosis. Diffuse muscular atrophy of the chest wall. IMPRESSION: 1. Multifocal pneumonia. 2. No large central pulmonary embolus. Limited assessment of the distal vasculature. 3. Moderate right and small left effusion with adjacent atelectasis.
[2021-06-08] MEDS ORDERED: FUROSEMIDE 10 MG/ML 2 ML VIAL IV ONE (14:32)
--- NOTE | 2021-06-08 14:32 | P.PN ---
Subjective Progress Note Date: 06/08/21 The patient is seen today 06/03/2021 in follow-up in the intensive care unit. She is currently awake and alert and resting fairly comfortably in bed. She is on a trach collar at 40% FiO2 with O2 saturations in the 90s. She's been a state afebrile. Hemodynamically stable. Currently on 0.9% normal saline at 40 miles per hour. She is being nourished with vital AF 1.2 at 20 ML's per hour with a goal of 50 ML's per hour. She does have some complaints of abdominal discomfort at higher rates. She is also having issues with diarrhea FMS remains in place. Microbiology is negative. She's currently on Diflucan only. This x- ray remains stable. There is some diffuse bilateral patchy infiltrates that are unchanged. She is status post 2 units packed red blood cells this admission. Hemoglobin 9.3. White count 7.3. Sodium 140. Potassium 3.6. Creatinine 0.43. Glucose 192. The patient is seen today 06/04/2021 in follow-up in the intensive care unit. She remains awake and alert in no acute distress. She is tolerating 40% FiO2 via trach collar with O2 saturations in the 90s. She is tolerating more of her tube feeding which is vital AF at 40 ML's per hour with a goal of 50. 0.9 normal saline at KVO. She remains in sinus rhythm. She is continued on fluconazole. She is status post 2 units of packed red blood cells this admission. Most recent hemoglobin 9.3. The patient is seen today 06/05/2021 in follow-up in the intensive care unit. She is currently sitting up in bed. Awake and alert. [place] to be somewhat depressed according to staff. Not smiling. Not reacting positively as she normally does. She was seen and evaluated by psychiatric services yesterday. They are treating her depression and her excoriation disorder as she continues to pick at her scalp. Otherwise, she is stable from the pulmonary standpoint. She is doing well on 40% FiO2 via the trach collar. She has normal saline running at 40 mL per hour. She is being nourished with vital 1.2 at 50 MLS per hour which is her goal. Microbiology is negative thus far. Chest x-ray today reveals continued bilateral airspace disease right greater than left without significant change. She has received 2 units of packed red blood cells this admission. Current hemoglobin 10.5. White count 11.5. Platelets 628. Sodium 138. Potassium 3.8. Creatinine 0.35. Glucose 109. She has completed a course of antibiotics and Diflucan. Blood and sputum cultures revealed no growth. Urine culture no growth. Bronchial washings revealed no growth. The patient is seen today 06/07/2021 in follow-up on the regular medical floor. She is currently sitting up in a chair at the bedside. Awake and alert in no acute distress. She is maintaining O2 saturations in the 90s on 60% trach collar. She is being nourished with vital AF at 50 MLS per hour. White count 11.4. Hemoglobin 8.8. Sodium 139. Potassium 3.9. Creatinine 0.42. Glucose 165. Chest x-ray reveals partially consolidative opacities in the right lung and moderate diffuse interstitial opacity in the left lung. Unchanged compared to previous. The patient is seen today 06/08/2021 in follow-up on the regular medical floor. She is currently resting comfortably in bed. Awake and alert in no acute distress. She is on 60% trach collar. CAT scan of the chest revealed no large central pulmonary embolism. Limited assessment of the distal vasculature. There is multifocal pneumonia. Moderate right and small left effusions with adjacent atelectasis. Bronchial wash cultures had revealed no growth. Sputum culture revealed no growth. Blood cultures revealed no growth. Blood sugar 114. Objective - Vital Signs Vital signs: Vital Signs Temp 99 F 06/08/21 08:00 Pulse 118 H 06/08/21 08:00 Resp 16 06/08/21 08:00 BP 115/78 06/08/21 08:00 Pulse Ox 97 06/08/21 08:00 Intake & Output 06/07/21 06/08/21 06/08/21 18:59 06:59 18:59 Output Total 625 625 Balance -625 -625 Output: Stool 625 625 Other: Voiding Method Diaper Diaper Incontinent Incontinent # Voids 1 - Exam GENERAL EXAM: Awake and alert, trached 36-year-old frail looking female, on 60% trach collar, up in a chair at the bedside comfortable in no apparent distress. HEAD: Normocephalic with a large area on the top of her head with open wound and excoriation from picking. EYES: Normal reaction of pupils, equal size. Conjunctiva pink, sclera white. NOSE: Clear with pink turbinates. MOUTH: She has ulcerations of her oral cavity THROAT: No erythema or exudates. NECK: No masses, no JVD, no thyroid enlargement, no adenopathy. Midline tracheostomy in place, on 60% trach collar, breathing comfortably patient is clean dry and intact CHEST: No chest wall deformity. Symmetrical expansion. LUNGS: Diminished air entry with few scattered rhonchi bilaterally. CVS: Regular rate and rhythm, normal S1 and S2, no gallops, no murmurs, no rubs ABDOMEN: Soft, nontender. No hepatosplenomegaly, normal bowel sounds, no guarding or rigidity. PEG tube covered with a surgical dressing EXTREMITIES: No clubbing, no edema, no cyanosis, 2+ pulses and upper and lower extremities. MUSCULOSKELETAL: Muscle strength and tone normal. SPINE: No scoliosis or deformity SKIN: No rashes CENTRAL NERVOUS SYSTEM: Awake and alert, following command No focal deficits, tone is normal in all 4 extremities. - Labs CBC & Chem 7: 06/08/21 04:33 06/08/21 04:33 Labs: Abnormal Lab Results - Last 24 Hours (Table) 06/07/21 06/07/21 06/07/21 Range/Units 16:06 20:10 23:49 WBC (4.50-10.00) X 10*3/uL RBC (4.10-5.20) X 10*6/uL Hgb (12.0-15.0) g/dL Hct (37.2-46.3) % MCH (27.0-32.0) pg MCHC (32.0-37.0) g/dL RDW (11.5-14.5) % Plt Count (140-440) X 10*3/uL Carbon Dioxide (20.0-27.5) mmol/L Anion Gap (10.00-18.00) mmol/L Creatinine (0.6-1.5) mg/dL BUN/Creatinine Ratio (12.00-20.00) Ratio POC Glucose (mg/dL) 124 H 159 H 213 H (75-99) mg/dL Calcium (8.7-10.3) mg/dL Procalcitonin (0.02-0.09) ng/mL 06/08/21 06/08/21 06/08/21 Range/Units 04:33 04:33 04:53 WBC 10.04 H (4.50-10.00) X 10*3/uL RBC 3.16 L (4.10-5.20) X 10*6/uL Hgb 8.0 L (12.0-15.0) g/dL Hct 27.5 L (37.2-46.3) % MCH 25.3 L (27.0-32.0) pg MCHC 29.1 L (32.0-37.0) g/dL RDW 15.8 H (11.5-14.5) % Plt Count 538 H (140-440) X 10*3/uL Carbon Dioxide 30.1 H (20.0-27.5) mmol/L Anion Gap 7.60 L (10.00-18.00) mmol/L Creatinine 0.4 L (0.6-1.5) mg/dL BUN/Creatinine Ratio 33.06 H (12.00-20.00) Ratio POC Glucose (mg/dL) (75-99) mg/dL Calcium 8.1 L (8.7-10.3) mg/dL Procalcitonin 0.11 H (0.02-0.09) ng/mL 06/08/21 06/08/21 06/08/21 Range/Units 07:59 08:41 09:18 WBC (4.50-10.00) X 10*3/uL RBC (4.10-5.20) X 10*6/uL Hgb (12.0-15.0) g/dL Hct (37.2-46.3) % MCH (27.0-32.0) pg MCHC (32.0-37.0) g/dL RDW (11.5-14.5) % Plt Count (140-440) X 10*3/uL Carbon Dioxide (20.0-27.5) mmol/L Anion Gap (10.00-18.00) mmol/L Creatinine (0.6-1.5) mg/dL BUN/Creatinine Ratio (12.00-20.00) Ratio POC Glucose (mg/dL) 66 L 57 L 148 H (75-99) mg/dL Calcium (8.7-10.3) mg/dL Procalcitonin (0.02-0.09) ng/mL 06/08/21 Range/Units 11:39 WBC (4.50-10.00) X 10*3/uL RBC (4.10-5.20) X 10*6/uL Hgb (12.0-15.0) g/dL Hct (37.2-46.3) % MCH (27.0-32.0) pg MCHC (32.0-37.0) g/dL RDW (11.5-14.5) % Plt Count (140-440) X 10*3/uL Carbon Dioxide (20.0-27.5) mmol/L Anion Gap (10.00-18.00) mmol/L Creatinine (0.6-1.5) mg/dL BUN/Creatinine Ratio (12.00-20.00) Ratio POC Glucose (mg/dL) 114 H (75-99) mg/dL Calcium (8.7-10.3) mg/dL Procalcitonin (0.02-0.09) ng/mL Assessment and Plan Assessment: 1 Acute hypoxic respiratory failure related to worsening and progression of pneumonia, and chest x-ray showing patchy consolidation involving the right midlung, right upper lobe and right lower lobe in addition to extensive consolidation of the left lung with possibly some cavitation. Suffered acute respiratory arrest on 05/21/2021 and was intubated, patient was successfully weaned and extubated on 05/23/2021 however failed again and had to be reintubated later that evening on 05/23/2021. In view of multiple episodes of respiratory failure patient was considered for tracheostomy and PEG tube placement for weaning. Patient is status post bronchoscopy with bronchoalveolar lavage on 05/23/2021, cultures are all negative. Patient is status post tracheostomy and PEG tube placement on 05/29/2021, currently on 60% trach collar. CAT scan of the chest today reveals multifocal pneumonia. No large central pulmonary embolism. Moderate right and small left effusions with adjacent atelectasis. 2 Altered mental status secondary to hypoglycemia. Patient had recovered, and she was back to baseline neurologically. 3 History of diabetes, and recent episode of diabetic ketoacidosis, recovered. Levemir insulin has been discontinued and patient is currently covered with sliding scale NovoLog, her last episode of hypoglycemia was on 05/19/2021 with a blood sugar of 45. No recurrence of hypoglycemia since 4 History of syncopal episodes related to hypoglycemia 5 History of migraine cephalgia 6 History of diabetic neuropathy 7 Chronic constipation 8 Chronic low back pain 9 Tongue and oral pharyngeal candidiasis, with ulcerations. Improved and completed Diflucan treatment 10 Previous history of MRSA infection in the laceration of the scalp 11 Chronic anemia with interval drop in hemoglobin down to 6.1 without evidence of any active GI bleeding, status post transfusion with 2 unit of packed red blood cells her hemoglobin 9.3 12 History of depression and currently being evaluated by psychiatric services 13 History of excoriation disorder with picking at her scalp and open wound Plan: CAT scan of the chest reviewed We will obtain ultrasound of the chest possible right-sided thoracentesis Re check a pro-calcitonin Lasix 20 mg IVP 1 Tolerating trach collar at 60% FiO2 Tolerating tube feedings currently at 50 MLS per hour Discharge plan in place for subacute rehabilitation May consider a speaking valve We will continue to follow I, the cosigning physician, performed a history & physical examination of the patient. Lungs sounds with bilateral scattered rhonchi. Maintaining good O2 saturations in the 90s on 60% FiO2 via trach collar. I discussed the assessment and plan of care with my nurse practitioner, Daniela Foreman. I attest to the above note as dictated by her.
--- NOTE | 2021-06-08 14:59 | P.PN ---
Subjective Progress Note Date: 06/08/21 CHIEF COMPLAINT: Coronavirus pneumonia HISTORY OF PRESENT ILLNESS: The patient is a 36-year-old female status post tracheostomy and gastrostomy placement during current hospitalization is now on tube feeds. She is on the medical floor. She is resting comfortably. ROS: No fevers or chills. No new chest pain. PHYSICAL EXAM: VITAL SIGNS: Reviewed CONSTITUTIONAL: Well developed and in no acute distress. EYES: Conjuctivae without sclera icterus. Extraocular movements grossly intact. HEAD, EARS, NOSE, THROAT: Moist buccal mucosa. Head is atraumatic, normocephalic. No nasal drainage. Has trach collar. RESPIRATORY: Non-labored respirations and equal bilateral excursions. CARDIOVASCULAR: Palpable 2+ radial pulses. ABDOMEN: Gastrostomy tube intact. MUSCULOSKELETAL: No gross deformity of the lower extremities noted. No clubbing. No cyanosis. SKIN: Good skin turgor. Well perfused. NEUROLOGIC: Cranial nerves II through XII grossly intact. No focal or lateralizing signs. PSYCH: Alert to person. CLINICAL LABS: Reviewed. Blood sugar glucose under 70s. ASSESSMENT: 1. Coronavirus pneumonia with complications 2. Status post tracheostomy and gastrostomy 3. Leukocytosis with sepsis 4. Anemia PLAN: 1. When medically stable, pending transfer to rehab. Objective - Vital Signs Vital signs: Vital Signs Temp 98.2 F 06/08/21 14:00 Pulse 109 H 06/08/21 14:00 Resp 16 06/08/21 14:00 BP 103/68 06/08/21 14:00 Pulse Ox 95 06/08/21 14:00 Intake & Output 06/07/21 06/08/21 06/08/21 18:59 06:59 18:59 Output Total 625 625 Balance -625 -625 Output: Stool 625 625 Other: Voiding Method Diaper Diaper Incontinent Incontinent # Voids 1 1 # Bowel Movements 1 - Labs CBC & Chem 7: 06/08/21 04:33 06/08/21 04:33 Labs: Abnormal Lab Results - Last 24 Hours (Table) 06/07/21 06/07/21 06/07/21 Range/Units 16:06 20:10 23:49 WBC (4.50-10.00) X 10*3/uL RBC (4.10-5.20) X 10*6/uL Hgb (12.0-15.0) g/dL Hct (37.2-46.3) % MCH (27.0-32.0) pg MCHC (32.0-37.0) g/dL RDW (11.5-14.5) % Plt Count (140-440) X 10*3/uL Carbon Dioxide (20.0-27.5) mmol/L Anion Gap (10.00-18.00) mmol/L Creatinine (0.6-1.5) mg/dL BUN/Creatinine Ratio (12.00-20.00) Ratio POC Glucose (mg/dL) 124 H 159 H 213 H (75-99) mg/dL Calcium (8.7-10.3) mg/dL Procalcitonin (0.02-0.09) ng/mL 06/08/21 06/08/21 06/08/21 Range/Units 04:33 04:33 04:53 WBC 10.04 H (4.50-10.00) X 10*3/uL RBC 3.16 L (4.10-5.20) X 10*6/uL Hgb 8.0 L (12.0-15.0) g/dL Hct 27.5 L (37.2-46.3) % MCH 25.3 L (27.0-32.0) pg MCHC 29.1 L (32.0-37.0) g/dL RDW 15.8 H (11.5-14.5) % Plt Count 538 H (140-440) X 10*3/uL Carbon Dioxide 30.1 H (20.0-27.5) mmol/L Anion Gap 7.60 L (10.00-18.00) mmol/L Creatinine 0.4 L (0.6-1.5) mg/dL BUN/Creatinine Ratio 33.06 H (12.00-20.00) Ratio POC Glucose (mg/dL) (75-99) mg/dL Calcium 8.1 L (8.7-10.3) mg/dL Procalcitonin 0.11 H (0.02-0.09) ng/mL 06/08/21 06/08/21 06/08/21 Range/Units 07:59 08:41 09:18 WBC (4.50-10.00) X 10*3/uL RBC (4.10-5.20) X 10*6/uL Hgb (12.0-15.0) g/dL Hct (37.2-46.3) % MCH (27.0-32.0) pg MCHC (32.0-37.0) g/dL RDW (11.5-14.5) % Plt Count (140-440) X 10*3/uL Carbon Dioxide (20.0-27.5) mmol/L Anion Gap (10.00-18.00) mmol/L Creatinine (0.6-1.5) mg/dL BUN/Creatinine Ratio (12.00-20.00) Ratio POC Glucose (mg/dL) 66 L 57 L 148 H (75-99) mg/dL Calcium (8.7-10.3) mg/dL Procalcitonin (0.02-0.09) ng/mL 06/08/21 Range/Units 11:39 WBC (4.50-10.00) X 10*3/uL RBC (4.10-5.20) X 10*6/uL Hgb (12.0-15.0) g/dL Hct (37.2-46.3) % MCH (27.0-32.0) pg MCHC (32.0-37.0) g/dL RDW (11.5-14.5) % Plt Count (140-440) X 10*3/uL Carbon Dioxide (20.0-27.5) mmol/L Anion Gap (10.00-18.00) mmol/L Creatinine (0.6-1.5) mg/dL BUN/Creatinine Ratio (12.00-20.00) Ratio POC Glucose (mg/dL) 114 H (75-99) mg/dL Calcium (8.7-10.3) mg/dL Procalcitonin (0.02-0.09) ng/mL
[2021-06-08 16:18] LABS: Glucose,Whole Blood 81 mg/dL (75-99)
--- NOTE | 2021-06-08 16:49 | P.PN ---
Subjective Progress Note Date: 06/07/21 Principal diagnosis: Pneumonia Interval history : The patient is a 36-year-old female who presented to the hospital with an episode of unresponsiveness and concern for aspiration pneumonia. The patient subsequently did have worsening of her respiratory status, requiring intubation x2.Currently on the vent. The patient is status post trach and PEG completed 05/29/2021 On today's evaluation, 06/07/2021, The patient remains to be febrile, the patient is breathing comfortably on the trach collar, patient denies any chest pain , patient has been tolerating her tube feeds and no worsening diarrhea has been reported by the nursing staff, currently waiting for placement Objective - Vital Signs Vital signs: Vital Signs Temp 98.1 F 06/07/21 19:30 Pulse 117 H 06/07/21 20:00 Resp 16 06/07/21 19:30 BP 115/73 06/07/21 19:30 Pulse Ox 96 06/07/21 19:30 Intake & Output 06/07/21 06/07/21 06/08/21 06:59 18:59 06:59 Output Total 625 625 Balance -625 -625 Weight 46.1 kg Output: Stool 625 625 Other: Voiding Method Diaper Diaper Incontinent Incontinent - Exam General description is a middle-aged female up in the chair in no distress Respiratory system:Unlabored breathing, decreased intensity of breath sounds. No wheeze. Heart S1, S2.Regular rate and rhythm. Abdomen soft, no tenderness Extremities: No edema feet - Labs CBC & Chem 7: 06/08/21 04:33 06/08/21 04:33 Labs: Abnormal Lab Results - Last 24 Hours (Table) 06/06/21 06/07/21 06/07/21 Range/Units 23:55 00:17 03:16 WBC (3.8-10.6) k/uL RBC (3.80-5.40) m/uL Hgb (11.4-16.0) gm/dL Hct (34.0-46.0) % MCHC (31.0-37.0) g/dL RDW (11.5-15.5) % Plt Count (150-450) k/uL Neutrophils # (1.3-7.7) k/uL Carbon Dioxide (22-30) mmol/L Creatinine (0.52-1.04) mg/dL Glucose (74-99) mg/dL POC Glucose (mg/dL) 273 H 269 H 170 H (75-99) mg/dL Calcium (8.4-10.2) mg/dL 06/07/21 06/07/21 06/07/21 Range/Units 04:17 04:17 12:02 WBC 11.4 H (3.8-10.6) k/uL RBC 3.41 L (3.80-5.40) m/uL Hgb 8.8 L D (11.4-16.0) gm/dL Hct 29.9 L (34.0-46.0) % MCHC 29.5 L (31.0-37.0) g/dL RDW 16.0 H (11.5-15.5) % Plt Count 539 H (150-450) k/uL Neutrophils # 9.4 H (1.3-7.7) k/uL Carbon Dioxide 33 H (22-30) mmol/L Creatinine 0.42 L (0.52-1.04) mg/dL Glucose 165 H (74-99) mg/dL POC Glucose (mg/dL) 131 H (75-99) mg/dL Calcium 8.0 L (8.4-10.2) mg/dL 06/07/21 06/07/21 Range/Units 16:06 20:10 WBC (3.8-10.6) k/uL RBC (3.80-5.40) m/uL Hgb (11.4-16.0) gm/dL Hct (34.0-46.0) % MCHC (31.0-37.0) g/dL RDW (11.5-15.5) % Plt Count (150-450) k/uL Neutrophils # (1.3-7.7) k/uL Carbon Dioxide (22-30) mmol/L Creatinine (0.52-1.04) mg/dL Glucose (74-99) mg/dL POC Glucose (mg/dL) 124 H 159 H (75-99) mg/dL Calcium (8.4-10.2) mg/dL Microbiology - Last 24 Hours (Table) 06/01/21 05:19 Blood Culture - Final Blood No Growth after 144 hours Assessment and Plan (1) Pneumonia Current Visit: Yes Status: Acute Code(s): J18.9 - PNEUMONIA, UNSPECIFIED ORGANISM SNOMED Code(s): 081744912 Plan: 1. Patient with acute respiratory failure, likely multifactorial, with concern for possible component of aspiration pneumonia. Patient failed to be extubated and is status post trach and PEG, The patient's bronch culture has been negative for any resistant pathogen , The patient has received more than 2 weeks of IV antibiotic therapy and and is currently being monitored closely off antibiotic 2patient developing diarrhea possible antibiotic associated stool for C. diff was negative , patient will continue with Questran for symptomatic relief, ov keke diarrhea has decreased in frequency Time with Patient: Less than 30
--- NOTE | 2021-06-08 16:50 | P.PN ---
Subjective Progress Note Date: 06/08/21 Principal diagnosis: Pneumonia Interval history : The patient is a 36-year-old female who presented to the hospital with an episode of unresponsiveness and concern for aspiration pneumonia. The patient subsequently did have worsening of her respiratory status, requiring intubation x2.Currently on the vent. The patient is status post trach and PEG completed 05/29/2021 On today's evaluation, 06/08/2021, The patient denies fever or chills, the patient is breathing comfortably on the trach collar, patient denies chest pain , patient has been tolerating her tube feeds and no worsening diarrhea has been reported by the nursing staff, overall is feeling better Objective - Vital Signs Vital signs: Vital Signs Temp 98.2 F 06/08/21 14:00 Pulse 109 H 06/08/21 14:00 Resp 16 06/08/21 14:00 BP 103/68 06/08/21 14:00 Pulse Ox 95 06/08/21 14:00 Intake & Output 06/07/21 06/08/21 06/08/21 18:59 06:59 18:59 Output Total 625 625 Balance -625 -625 Output: Stool 625 625 Other: Voiding Method Diaper Diaper Incontinent Incontinent # Voids 1 1 # Bowel Movements 1 - Exam General description is a middle-aged female up in the chair in no distress Respiratory system:Unlabored breathing, decreased intensity of breath sounds. No wheeze. Heart S1, S2.Regular rate and rhythm. Abdomen soft, no tenderness Extremities: No edema feet - Labs CBC & Chem 7: 06/08/21 04:33 06/08/21 04:33 Labs: Abnormal Lab Results - Last 24 Hours (Table) 06/07/21 06/07/21 06/08/21 Range/Units 20:10 23:49 04:33 WBC 10.04 H (4.50-10.00) X 10*3/uL RBC 3.16 L (4.10-5.20) X 10*6/uL Hgb 8.0 L (12.0-15.0) g/dL Hct 27.5 L (37.2-46.3) % MCH 25.3 L (27.0-32.0) pg MCHC 29.1 L (32.0-37.0) g/dL RDW 15.8 H (11.5-14.5) % Plt Count 538 H (140-440) X 10*3/uL Carbon Dioxide (20.0-27.5) mmol/L Anion Gap (10.00-18.00) mmol/L Creatinine (0.6-1.5) mg/dL BUN/Creatinine Ratio (12.00-20.00) Ratio POC Glucose (mg/dL) 159 H 213 H (75-99) mg/dL Calcium (8.7-10.3) mg/dL Procalcitonin (0.02-0.09) ng/mL 06/08/21 06/08/21 06/08/21 Range/Units 04:33 04:53 07:59 WBC (4.50-10.00) X 10*3/uL RBC (4.10-5.20) X 10*6/uL Hgb (12.0-15.0) g/dL Hct (37.2-46.3) % MCH (27.0-32.0) pg MCHC (32.0-37.0) g/dL RDW (11.5-14.5) % Plt Count (140-440) X 10*3/uL Carbon Dioxide 30.1 H (20.0-27.5) mmol/L Anion Gap 7.60 L (10.00-18.00) mmol/L Creatinine 0.4 L (0.6-1.5) mg/dL BUN/Creatinine Ratio 33.06 H (12.00-20.00) Ratio POC Glucose (mg/dL) 66 L (75-99) mg/dL Calcium 8.1 L (8.7-10.3) mg/dL Procalcitonin 0.11 H (0.02-0.09) ng/mL 06/08/21 06/08/21 06/08/21 Range/Units 08:41 09:18 11:39 WBC (4.50-10.00) X 10*3/uL RBC (4.10-5.20) X 10*6/uL Hgb (12.0-15.0) g/dL Hct (37.2-46.3) % MCH (27.0-32.0) pg MCHC (32.0-37.0) g/dL RDW (11.5-14.5) % Plt Count (140-440) X 10*3/uL Carbon Dioxide (20.0-27.5) mmol/L Anion Gap (10.00-18.00) mmol/L Creatinine (0.6-1.5) mg/dL BUN/Creatinine Ratio (12.00-20.00) Ratio POC Glucose (mg/dL) 57 L 148 H 114 H (75-99) mg/dL Calcium (8.7-10.3) mg/dL Procalcitonin (0.02-0.09) ng/mL Assessment and Plan (1) Pneumonia Current Visit: Yes Status: Acute Code(s): J18.9 - PNEUMONIA, UNSPECIFIED ORGANISM SNOMED Code(s): 837339615 Plan: 1. Patient with acute respiratory failure, likely multifactorial, with concern for possible component of aspiration pneumonia. Patient failed to be extubated and is status post trach and PEG, The patient's bronch culture has been negative for any resistant pathogen , The patient has received adequate antibiotic therapy for her pneumonia and and is currently being monitored closely off antibiotic 2patient developing diarrhea possible antibiotic associated stool for C. diff was negative , patient will continue with Questran for symptomatic relief Time with Patient: Less than 30
[2021-06-08] MEDS: IPRATROPIUM-ALBUTEROL 3 ML NEB INHALATION SCH (19:41)
[2021-06-08 20:08] LABS: Glucose,Whole Blood 137 mg/dL (75-99)
[2021-06-08] MEDS: MONTELUKAST 10 MG TAB PO SCH (21:49)
[2021-06-08] MEDS: INSULIN DETEMIR (LEVEMIR) 100 UNIT/ML SYR SQ SCH (21:49)
[2021-06-08] MEDS: TEMAZEPAM 15 MG CAP PO SCH (21:49)
[2021-06-09 00:16] LABS: Glucose,Whole Blood 225 mg/dL (75-99)
[2021-06-09] MEDS: INSULIN ASPART (NovoLOG) 100 UNIT/ML VIAL SQ SCH ×6 (00:22→20:52)
[2021-06-09] MEDS: HYDROmorphone 0.5 MG/0.5 ML SYRINGE IVP PRN ×7 (01:53→22:49)
[2021-06-09 04:00] LABS: Glucose,Whole Blood 134 mg/dL (75-99)
[2021-06-09 07:42] LABS: Glucose,Whole Blood 81 mg/dL (75-99)
[2021-06-09] MEDS: IPRATROPIUM-ALBUTEROL 3 ML NEB INHALATION SCH ×3 (08:13→20:51)
[2021-06-09] MEDS: THIAMINE 100 MG TAB PO SCH ×2 (09:15→17:12)
[2021-06-09] MEDS: ZINC SULFATE 220 MG CAP PO SCH (09:15)
[2021-06-09] MEDS: PREGABALIN 75 MG CAP PO SCH ×3 (09:15→21:59)
[2021-06-09] MEDS: CHOLECALCIFEROL 25 MCG (1000 IU) TABLET PO SCH (09:15)
[2021-06-09] MEDS: MULTIVITAMINS, THERA 1 EACH TAB PO SCH (09:15)
[2021-06-09] MEDS: PANTOPRAZOLE 40 MG/10 ML VIAL IVP SCH (09:15)
[2021-06-09] MEDS: FLUoxetine HCL 20 MG CAP PO SCH (09:15)
[2021-06-09] MEDS: FOLIC ACID 1 MG TAB PO SCH (09:16)
[2021-06-09] MEDS: CHOLESTYRAMINE (WITH SUGAR) 4 GM PACKET PO SCH ×2 (09:18→17:12)
--- NOTE | 2021-06-09 10:35 | P.PN ---
Subjective Progress Note Date: 06/09/21 CHIEF COMPLAINT: Hypoglycemia HISTORY OF PRESENT ILLNESS: Patient status post tracheostomy and PEG tube p lacement on 05/29/2021. Patient remained a medical floor. She is tolerating tube feedings. She is resting comfortably. Afebrile. Pulmonary service following regarding right pleural effusion and possible right-sided thoracentesis. PHYSICAL EXAM: VITAL SIGNS: Reviewed. GENERAL: no acute distress. HEENT: No sclera icterus. Extraocular movements grossly intact. Moist buccal mucosa. Head is atraumatic, normocephalic. Trach site clean dry and intact ABDOMEN: Soft. Nondistended. Nontender. PEG tube site clean dry and intact ASSESSMENT: 1. Acute hypoxic respiratory failure secondary to pneumonia. Patient was extubated and required to be reintubated on 05/23/2021. Patient status post tracheostomy placement 2. Severe protein calorie malnutrition. Patient status post PEG tube placement 3. Possible aspiration pneumonia PLAN: -Continue supportive care -Continue antiemetics as needed -Continue tube feeds -Antibiotics per ID -Social work addressing discharge planning at subacute rehab [facility] note has been reviewed by physician. Signing provider agrees with the documented findings, assessment, and plan of care. Objective - Vital Signs Vital signs: Vital Signs Temp 98.8 F 06/09/21 08:00 Pulse 110 H 06/09/21 08:20 Resp 18 06/09/21 08:00 BP 116/80 06/09/21 08:00 Pulse Ox 100 06/09/21 08:00 Intake & Output 06/08/21 06/09/21 06/09/21 18:59 06:59 18:59 Output Total 300 Balance -300 Output: Urine 300 Other: Voiding Method Diaper Incontinent # Voids 1 1 # Bowel Movements 1 1 - Labs CBC & Chem 7: 06/08/21 04:33 06/08/21 04:33 Labs: Abnormal Lab Results - Last 24 Hours (Table) 06/08/21 06/08/21 06/08/21 Range/Units 04:53 11:39 20:06 POC Glucose (mg/dL) 114 H 137 H (75-99) mg/dL Procalcitonin 0.11 H (0.02-0.09) ng/mL 06/09/21 06/09/21 06/09/21 Range/Units 00:14 03:12 03:58 POC Glucose (mg/dL) 225 H 134 H (75-99) mg/dL Procalcitonin 0.11 H (0.02-0.09) ng/mL
[2021-06-09 11:46] LABS: Glucose,Whole Blood 61 mg/dL (75-99)
[2021-06-09] MEDS ORDERED: DEXTROSE 50% SYRINGE 50 ML IVP ONE (11:51)
--- NOTE | 2021-06-09 12:16 | P.CONS ---
History of Present Illness - Chief Complaint Medical debility - History of Present Illness I had the opportunity to see patient for inpatient rehab consultation with regard to medical debility. Patient admitted to [facility] May with low blood sugar, DKA. Note history of recent discharge. Seen by Dr. Pittman for bilateral pneumonia as well as Dr. To. Noted patient was seen by surgery, Dr. Matias , and did have trach tube placed. There is also no with regard to hypercapnic respiratory failure. Patient seen by psychiatry for severe depression. Also seen by wound care for scalp wound. Multiple chest x-rays followed for the pneumonia. Chest CT consistent with pneumonia and large effusions but negative for PE. Chest ultrasound done for similar reason. Patient started therapy. PT reports two-person minimal assistance for transfers and gait 5 feet, hand-held. OT reports maximal assistance for upper dressing and bathing and total assist for lower dressing and toileting. Previous functional history as elicited from patient and mom: 36-year-old right- handed white female who is single lives in a first-floor apartment with her 3 kids ages 8, 10, 19. Patient is unemployed and applying for disability. He is otherwise independent with her own cooking, laundry, tub bath or standing shower. Uses bus for transportation. Mom just got her a 4 wheeled walker. Patient has multiple supports including mom, multiple sisters and possibly a brother. PCP Dr. Silvestre. Denies tobacco or alcohol. Review of Systems Review of systems: Thin build. ENT: Denies sneezes or discharge. Eyes: Denies discharge or photophobia. Cardiac: Denies chest pain or palpitation. Pulmonary: shortness of breath. Trach. Breast: Denies discharge or lumps. Gastrointestinal: Denies nausea, emesis, constipation, diarrhea. Genitourinary: Denies discharge or frequency. Musculoskeletal: Denies muscle or bone aches. Thin limbs. Neurologic: General weakness. Endocrine: Denies shakes or sweats. Oncology: Denies cancers. Dermatologic: Denies rash, itching, pruritus. ALLERGY/immunology: Denies sneezes, rashes. Past Medical History Past Medical History: Diabetes Mellitus, Syncope Additional Past Medical History / Comment(s): IDDM type I, neuropathy bilateral legs/feet, chronic low back pain, bilateral leg pain, migraines, hx chronic constipation. Hx HPV. Having diarrhea with any intake of food, chronic History of Any Multi-Drug Resistant Organisms: MRSA Year Discovered:: 05/09/21 MDRO Source:: Urine Past Surgical History: Tubal Ligation, Uterine Ablation Additional Past Surgical History / Comment(s): 12/22/17 colonoscopy, LAPAROSCOPIC REMOVAL Rt TUBE AND OVARY d/t endometriosis, D&C, HYSTEROSCOPY, NOVASURE ABLATION 2016. Past Anesthesia/Blood Transfusion Reactions: No Reported Reaction Additional Past Anesthesia/Blood Transfusion Reaction / Comm: HAD MULTI INJ FOR DENTAL WORK, NOVACAINE WAS INEFFECTIVE. Past Psychological History: Anxiety, Depression Smoking Status: Never smoker Past Alcohol Use History: None Reported Past Drug Use History: None Reported - Past Family History Mother Family Medical History: No Reported History, Rheumatoid Arthritis (RA) Additional Family Medical History / Comment(s): Mother is 63 yrs old. Father Family Medical History: Cancer, Diabetes Mellitus, Deep Vein Thrombosis (DVT), Hypertension Additional Family Medical History / Comment(s): THROAT CA- of but pt does not know at what age. Medications and Allergies Home Medications Medication Instructions Recorded Confirmed Type Escitalopram [Lexapro] 20 mg PO DAILY 04/26/20 05/17/21 History Omeprazole 20 mg PO DAILY 11/14/20 05/17/21 History ALPRAZolam [Xanax] 0.25 mg PO DAILY PRN 05/09/21 05/17/21 History Amitriptyline HCl [Elavil] 10 mg PO HS 05/09/21 05/17/21 History Cholecalciferol [Vitamin D3 (25 50 mcg PO DAILY 05/09/21 05/17/21 History Mcg = 1000 Iu)] INSULIN LISPRO (humaLOG) [humaLOG] 40 units SQ AC-TID 05/09/21 05/17/21 History INSULIN LISPRO (humaLOG) [humaLOG] See Protocol SQ AC-TID 05/09/21 05/17/21 History Insulin Detemir [Levemir Flextouch 35 units SQ HS 05/09/21 05/17/21 History Pen] Montelukast [Singulair] 10 mg PO HS 05/09/21 05/17/21 History Rizatriptan Odt [Maxalt FURNACE SETTER] 10 mg PO DAILY PRN 05/09/21 05/17/21 History Zinc 50 mg PO DAILY 05/09/21 05/17/21 History lisinopriL [Zestril] 2.5 mg PO DAILY 05/09/21 05/17/21 History tiZANidine [Zanaflex] 4 mg PO BID PRN 05/09/21 05/17/21 History Metoprolol Tartrate [Lopressor] 12.5 mg PO BID #60 tab 05/16/21 05/17/21 Rx Pregabalin [Lyrica] 75 mg PO TID #7 cap 05/16/21 05/17/21 Rx Amoxicillin/Potassium Clav 1 tab PO BID 05/17/21 05/17/21 History [Augmentin 875-125 Tablet] Allergies Allergy/AdvReac Type Severity Reaction Status Date / Time No Known Allergies Allergy Verified 05/17/21 11:59 Physical Exam Vitals: Vital Signs Temp Pulse Pulse Pulse Resp BP Pulse Ox 06/09/21 08:20 110 H 06/09/21 08:02 110 H 06/09/21 08:00 98.8 F 121 H 18 116/80 100 06/09/21 01:35 98.4 F 122 H 17 121/85 100 06/08/21 20:00 98.3 F 121 H 20 120/79 91 L 06/08/21 19:55 116 H 06/08/21 19:42 115 H 06/08/21 17:27 109 H 06/08/21 14:00 98.2 F 109 H 16 103/68 95 Intake and Output 06/08/21 06/09/21 06/09/21 22:59 06:59 14:59 Output Total 300 Balance -300 Output: Urine 300 Other: # Voids 1 1 # Bowel Movements 1 Skin: Good color, texture, turgor. General: Thin build and fatigued appearance. Head: Normocephalic, atraumatic. Eyes: Symmetric. Pupils equal round. Ears: Symmetric. Hearing within normal limits. Mouth: Clear. Neck: Supple. Carotid without bruit. Cardiac: Regular rate and rhythm. Lungs: Clear anteriorly and posteriorly. Abdomen: Soft active nontender. Extremities: Normal tone. Neurological: Mental status: Alert, cooperative, fatigued. Cranial nerves: Symmetric facial tone and trapezius. Motor: Active movement and elevation all 4 limbs of about or greater than antigravity. Sensation: Intact throughout. DTRs: Symmetric and equal throughout. Mobility: Mom reports two-person assist for functional mobility within the room including to toilet. Results CBC & Chem 7: 06/08/21 04:33 06/08/21 04:33 Labs: Abnormal Lab Results - Last 24 Hours (Table) 06/08/21 06/08/21 06/09/21 Range/Units 04:53 20:06 00:14 POC Glucose (mg/dL) 137 H 225 H (75-99) mg/dL Procalcitonin 0.11 H (0.02-0.09) ng/mL 06/09/21 06/09/21 06/09/21 Range/Units 03:12 03:58 11:41 POC Glucose (mg/dL) 134 H 61 L (75-99) mg/dL Procalcitonin 0.11 H (0.02-0.09) ng/mL Assessment and Plan (1) Hypoglycemia Current Visit: Yes Status: Acute Code(s): E16.2 - HYPOGLYCEMIA, UNSPECIFIED SNOMED Code(s): 825709691 (2) Pneumonia Current Visit: Yes Status: Acute Code(s): J18.9 - PNEUMONIA, UNSPECIFIED ORGANISM SNOMED Code(s): 173702211 (3) Cellulitis of scalp Current Visit: No Status: Acute Code(s): L03.811 - CELLULITIS OF HEAD [ANY PART, EXCEPT FACE] SNOMED Code(s): 12122600 Plan: Impression: 1. Diabetes with complication DKA and neuropathy and syncope. 2. Bilateral pneumonia with bilateral effusions. 3. Scalp wound. Comments and plan: At this time definite safety concerns noted. There are endurance issues as well. Patient would obviously be on ready for return to home currently although she does have multiple supports of mom and siblings. Discussed possible inpatient rehab and this appears to be reasonable at this time.
[2021-06-09 12:34] LABS: Glucose,Whole Blood 118 mg/dL (75-99)
--- NOTE | 2021-06-09 14:56 | P.PN ---
Subjective Progress Note Date: 06/09/21 This is a 36-year-old old female, seen in the emergency room, room 10. The patient was just discharged out of the hospital yesterday, May 16. The patient apparently returned to the emergency room, with a low blood sugar. She was brought in by EMS. She apparently has no memory of why she was in the ospital. She apparently was hungry when she came into the ER. She complained of back pain. Her blood glucose on arrival was 36. The patient was in the hospital recently for a left-sided pneumonia. The patient also has a history of diabetes with diabetic ketoacidosis. The patient is currently on O2 at 2 L. She's getting D5 0.9 at 75 mL an hour. She was given Augmentin, but we discontinued it in favor of Zosyn. The patient has a history of diabetes, diabetic neuropathy, chronic low back pain, migraine cephalgia, chronic constipation, and prior MRSA infection. White count 21.9, hemoglobin 8.8, hematocrit 28.7, and platelet count 474,000. Sodium 129, potassium 4.4, chlorides 102, CO2 24, anion gap 3, BUN 7, with a creatinine of 0.29. Albumin is 2. Urine is light yellow in color, and cloudy, leukocyte esterase being small positive, 9 WBCs, and rare bacteria. Drug screen is negative. Testing for ling virus was negative. Chest x-ray shows bilateral pneumonia, with dense consolidation within the left lung, and much less infiltrate in the right base. Progress note dated 05/18/2021. This is a 36-year-old female, who was seen in the emergency department in consultation yesterday, and room 10. The patient was recently discharged from the hospital on May 16. She was brought back in for mental status changes, and a low blood sugar. Apparently her blood glucose was only 36. Her prior admission was for diabetic ketoacidosis, and left-sided ammonia. Currently, she is back to her normal self. The patient is on 4 L nasal O2. She's not complaining of any respiratory distress or difficulty. She has a dry nonproductive cough. She was placed on Zosyn yesterday by our team. She was seen by infectious diseases. She has a history of diabetes, diabetic neuropathy , chronic low back pain, migraine cephalgia, chronic constipation, and prior MRSA infection. Currently, white count 19.3, he will been 7.2, hematocrit 24, and platelet count 449,000. Sodium 133, potassium 3.8, chlorides 100, CO2 21, anion gap 12, UN 7, and creatinine 0.4. Pro-calcitonin level is 0.15. C- reactive protein is 5.7. On today's evaluation of 05/19/2021, the patient is doing well. The patient is awake and alert. No signs of any significant respiratory distress. The patient was restarted back on IV Zosyn. The chest x-ray showed extensive consolidation of the left lung and the CAT scan of the chest also confirmed the same findings. The patient was Hospital as because of hypoglycemia. The patient altered mentation and she recovered fully. She is currently on Levemir 20 units along with sliding scale coverage. She is also on D5 water running at 100 mL an hour. Antibiotic coverage with IV Zosyn. Blood work shows a white cell count 12.4 with hemoglobin 8.5, BUN is at 5 with a creatinine of 0.4 and his sodium is at 134 with a potassium level of 3.3. The COVID 19 test that was negative. Urine drug screen was negative. Pro-calcitonin level has been consistently low. A focused on level was at 0.15. The patient currently is on oxygen 4 L per minute nasal cannula. She is afebrile. She is medically and hemodynamically stable at this point in time. She has poor dental conditions and poor oral hygiene. She has also developed some ulceration over the tip of the tongue probably related to candidal infection. On 2021, the patient's condition decompensated and the patient got transferred to the intensive care unit for respiratory support. Overnight, the patient became progressively more hypoxemic and short of breath. She was given a dose of Lasix 40 mg IV push without any much improvement. She was becoming also more lethargic and short of breath. She got transferred to the ICU. Currently she is on a BiPAP at a pressure of 12/6 cm of water with an FiO2 of 100%. Her Pulse Ox Is 99%. A Chest X-Ray Showed Extensive Consolidation of the Left Lung. There Are Some Air Bronchograms on the Left. At the Same Time There Are Some Air Pockets in the Left [place] Which Makes Me Concerned about an Underlying Cavitation/Abscess Formation. At the Same Time, There Is Progression of the Airspace Disease and There Is Development of New Patchy Opacities in the Right Midlung and the Right Lower Lung. Note That the Patient Was Covered with IV Zosyn for Any Potential Aspiration Pneumonia.Pro-Calcitonin Level Was at 0.15. Currently She Is on BiPAP Which Is Quite Comfortable. She instructed BiPAP dependent. The patient easily decompensates and desaturates 1 she's taken off the BiPAP. Note that she also had extensive oropharyngeal candidiasis and ulceration of the tongue for which she was given Diflucan. I added cold solution on her yesterday. She is unable to do adequate oral care as the patient is BiPAP dependent. In terms of IV fluids, the patient is on D5 water running at 40 mL an hour. This was started due to concerns of underlying episodes of hypoglycemia. She is a very brittle diabetic. Her blood sugars are all over the place. She is currently on Levemir insulin 20 units a day along with a sliding scale coverage. The Levemir insulin was given today. She is not eating much at this point in time as the patient is BiPAP dependent. Other blood work, her white cell count of 19.0 which is higher compared to yesterday. Hemoglobin is at 7.8. The blood gas while on 100% BiPAP initially showed a pH of 7.37 with a pCO2 of 46 and pO2 of 50. Current saturations up to 90%. Sodium is at 130 with a potassium level of 3.4 and a serum bicarb of 23 with a mean of 4 and a creatinine of 0.4. Her albumin is down to 2.0 with a total protein of 5.7. Cultures for now are negative in terms of blood culture. Note that the patient had MRSA and E. coli and strep in her urine back in 05/09/2021. She has also has had a previous MRSA wound infection involving the scalp. She is arousable. She is a bit lethargic. No agitation. On 05/21/2021 patient seen in follow-up in the intensive care unit, she currently remains on BiPAP support as of 12 and 600%, and her pulse ox is 99- 100%, she is awake and alert, oriented 3, she is extremely thirsty and hungry, does not appear to be in any acute distress, no complaints of worsening dyspnea, she seems to be breathing comfortably, nursing staff reports that patient was able to come off the BiPAP support to take sips of water, oral care, and pills, and patient tolerates being off BiPAP support better although she does desaturate. She is afebrile, hemodynamically she is stable, she remains on a combination of meropenem and vancomycin and Diflucan which were modified yesterday. Blood cultures have been negative thus far, she's been afebrile, no hemoptysis, no complaints of chest discomfort. Produced 5.2 L in urine output in response to Lasix, and she is in -3.8 L net fluid balance over the last 24 hours, today's chest x-ray has been reviewed, showing stable diffuse bilateral airspace disease. Absent been reviewed, white blood cell count is 20.2, hemoglobin is 7.9, platelet count is 482, serum sodium is 133, potassium 3.7, chloride is 104, CO2 is 24, B1 is 5 creatinine 0.42. Her last pro-calcitonin level from 05/18/2021 was 0.15. On 05/22/2021 patient seen in follow-up in intensive care unit, last night during an episode of getting cleaned up after having a bowel movement patient complained of not feeling well, she certainly became unresponsive, she started desaturating, her respirations became very agonal and rapid response team was called for ERIC BLUE. There was no seizure activity noted prior to the event, patient was not desaturating just prior to that, no arrhythmias were noted other than bradycardia after she had started desaturating. During the code patient did not lose her pulse, her pulse ox was down to 66% on high flow Airvo, she was emergently intubated and placed on mechanical ventilator, chest x-ray shows severe ARDS, she was hypotensive and received IV fluids and received norepinephrine infusion which is currently still infusing at 0.06 mics per kilo per minute, she was not hypoglycemic and her blood sugar at that time was 177, she had D5W infusing at 40, and she was starting to take in some oral intake. This morning she is sedated, intubated on assist control mode of ventilation with a rate of 16, tidal, 350, FiO2 is currently at 50% and PEEP of 8, this morning's blood gas shows pO2 of 102, pCO2 of 43, pH is 7.34, this was done on 70% FiO2 which had since been dropped down to 50%, this morning's chest x-ray was reviewed showing moderately severe pulmonary air space edema, without significant change compared to yesterday. The patient is in sinus mechanism, blood pressure is 112/72, currently on meropenem, vancomycin and Diflucan for aspiration pneumonia, blood cultures have been negative, patient has not been able to produce a sputum culture for us. Her labs reveal white blood cell count of 26.8 which is increased since yesterday from 20.2, hemoglobin of 7.9, platelet count of 530, sodium is 134, potassium is 4.0, chloride is 107, CO2 is 21, BUN is 7 creatinine 0.52, her glucose this morning is 203, LFTs were within normal limits, her last pro-calcitonin level from a few days ago was 0.15. Yesterday patient was given a liter bolus after she became intubated, she is producing urine in the order of 30-75 ML per hour, her Lasix is on hold. On 05/23/2021 patient seen in follow-up in the intensive care unit, she is sedated, intubated on mechanical ventilator with a assist control mode of ventilation and rate of 16, tidal emesis 50, FiO2 of 60% and PEEP of 8, this morning's blood gas was reviewed showing O2 of 154, pCO2 of 45, and pH of 7.37. Is currently on Diprivan at 40 mics per kilo per minute, Levaquin is at 3 mics per minute, 0.9 saline at any ML per hour. Today's chest x-ray showing persistent but improving bilateral airspace disease, right greater than left. There is some blood work has been reviewed showing white blood cell count of 13.4, hemoglobin of 7.3, sodium of 140, potassium is 3.9, chloride is 110, CO2 of 22, BUN of 6, creatinine of 0.62, this morning his glucose was 221. Recent have fevers overnight with a T-max of 101.5F. She currently remains on combination of meropenem, vancomycin and Diflucan. Patient is status post bronchoscopy and bronchoalveolar lavage on 05/22/2021, and BAL cultures are still pending. Gram stain showed no organisms thus far. Patient is tolerating tube feedings with vital HP at a rate of 20 ML per hour, Orellana catheter is in place, and patient is producing urine in the order of 50 to 100 mL per hour. On 05/24/2021 , is being seen for a follow-up. Note that the patient was extubated successfully yesterday. Extubation process went fine and the patient was doing very well on a nasal cannula oxygen. At around midnight, the patient acutely decompensated. She became short of breath and hypoxic. Her blood. This was done that showed acute respiratory acidosis with a pH of 7.24 with a pCO2 of 67 and pO2 of 80 and this was identified to 100%. He became acutely unresponsive and significant respiratory distress was noted by the nursing staff. At that point, it was decided that he intubated the patient. The patient is currently intubated on a mechanical ventilator. The patient is sedated with propofol which is running at 30 mcg/kg per minute to maintain synchrony with the mechanical ventilator. She is on assist control mode at the rate of 25, tidal volume of 350, FiO2 has been weaned down to 50% and the patient currently is in a PEEP of 10. Post intubation blood gases showed a pH of 7.48 with a pCO2 of 43 and pO2 of more than 400 and this was on FiO2 100%. Morning blood work also showed a drop in hemoglobin down to 6.1 from a baseline of 7.3. No evidence of any acute bleeding. No evidence of any hematemesis or melanotic stools. The patient will be given a total of 2 units of packed RBCs. Also, the patient is covered with broad-spectrum antibiotics patient remains on a combination of meropenem, vancomycin and Diflucan. The cultures from the bronchioloalveolar lavage was done earlier came back all negative. The repeat chest x-ray from today is showing adequate placement of the orotracheal tube. The patient continues to have bilateral pulmonary infiltrates. However, there is significant interval improvement in the bilateral pulmonary infiltrates compared to earlier chest x-rays. The white cycles of 7.12. Renal function is stable with a creatinine of 0.5 and a BUN of 7. Sodium level is at 144. Potassium level is at 3.2 and a K level will be replaced. The patient was restarted again on enteral feeding and this will be restarted today. Meanwhile, in terms of blood sugar control, the patient is receiving Levemir insulin 20 units once a day and a sliding scale coverage. Blood sugars have been maintained adequately and her most recent blood sugar currently is at 172. Her vancomycin felt level from today was 28. 05/25/2021, the patient is awake even on a low dose of propofol at 30 mcg/kg per minute. She is following commands. She wants to get the tube out. She is on a mechanical ventilator at the rate of 25, tidal volumes of 350, PEEP is at 10 and FiO2 is currently at 40%. PH is at 7.48 with a pCO2 of 43 and pO2 of 113. The lavage from the lungs did not yield any microbial growth. The patient continues to have diffuse bilateral pulmonary infiltrates and there is extensive consolidation bilaterally more so on the right. White secondary to 6.7. Hemoglobin is at 10.1 platelet count is at 356. Creatinine stable at 0.4. BUN is at 7. Sodium is at 139. LFTs are normal. Blood sugars at 168. The patient remains on a broad-spectrum antibiotic coverage. The patient is receiving IV Diflucan, IV vancomycin and IV meropenem. There was always the concern of aspiration in this patient as the patient developed initially extensive left lung consolidation subsequently infiltrates moved to the right. The bronchoscopy was done yielded no significant respiratory secretions or microbial growth at this point in time. She is on Levemir insulin and a sliding scale coverage. She is on no pressors for now. She is is slightly positive over the past 24 hours. The patient was receiving enteral feeding for nutritional support. She is currently on vital high protein at the rate of 20 mL an hour. No hypoglycemic attacks. As mentioned, she is easily arousable and she is moving all 4 extremities without any limitation. No fever. No significant leukocytosis. All of the cultures are negative. She remains on D5W at the rate of 75 mL an hour. No reported abdominal pain. LFTs are normal. Ultrasound abdomen showed a questionable gallbladder wall thickening and a calculus cholecystitis. On 05/26/2021 patient seen in follow-up in the intensive care unit, she is currently sedated, and intubated, on assist-control mode of ventilation with a rate of 25, tidal 350, FiO2 of 50% and PEEP of 5, this morning's blood gas shows pO2 of 55, pCO2 of 41, and pH of 7.54 and this was done and FiO2 of 40% and subsequently FiO2 was increased to 55%. She's currently on point and within indurated 20 ML per hour, norepinephrine drip has been off for over 12 hours, and improving and is at 30 mics per kilo per minute, she is on a vital high protein at a rate of 20 with standard water flushes 30 mL every 4 hours, today's chest x-ray has been reviewed showing bilateral multifocal confluent opacities. No significant change from one day earlier. Patient remains on a combination of antibiotics with Zosyn, vancomycin and Diflucan. Patient is status post bron choscopy with bronchoalveolar lavage on 05/22/2021, and so far BAL cultures are all negative, sputum and blood cultures and urine were all negative. Today's labs have been reviewed, white blood cell count is improved and is down to 7.3, hemoglobin is 9.8, sodium is 137, potassium is 3.4, chloride is 105, BUN is 8, creatinine 0.53. Hemodynamic patient is stable, she is in sinus mechanism, she has had no acute events overnight. No febrile episodes. He is currently likely sedated, she is opening eyes to verbal stimulation, and she seems to be following simple commands. Her LFTs are within normal limits. On 05/27/2021 patient seen in follow-up in the intensive care unit, she is lightly sedated, she opens her eyes to voice, she is following simple commands, does not appear to be in any acute distress, she still intubated, on assist- control mode of ventilation with a rate of 25, Tylenol level was 350, FiO2 of 50% and PEEP of 5, this morning's blood gas shows pO2 of 85, pCO2 44, and pH of 7.52. This was done on the above-mentioned ventilator settings. Today's chest x-ray changed to show patchy bilateral lung infiltrates that are stable in appearance. Vital signs have been stable overnight, no fever, no chills. All of her cultures including BAL cultures remained negative. Patient remains on a combination of antibiotics with Diflucan, Zosyn and vancomycin. She did require small dose of norepinephrine on which she remains, currently infusing at a rate of 3.9 mics per minute. Current blood pressure is 140/89, and norepinephrine can be discontinued. Urine output is in the order of 50 TOPD ML per hour. Patient is receiving the program at 30 mics per kilo per minute, and IV fluids are 0.9 normal saline at a rate of 20 ML per hour, she is tolerating tube feedings with vital AF at a rate of 36 with a goal of 36 and standard water flushes. Today's labs have been reviewed showing white blood cell, 7.4, hemoglobin of 10.4, platelet count of 377, sodium is 137, potassium is 3.4, chloride is 105, CO2 of 33, BUN of 9 creatinine 0.56 On 05/28/2021 patient is seen in follow-up in the intensive care unit, she is slightly sedated, she is awake, alert, she is following command, she still intubated on mechanical ventilator, on assist control mode of ventilation with a rate of 25, tidal volume 350, FiO2 of 40% and PEEP of 5. This was blood gas shows pO2 of 76, P CO2 of 43, and pH is 7.53 this was done on the above- mentioned ventilator settings, she is currently on 30 mics of dopamine, 0.9 normal seen at a rate of 20 ML per hour, tube feedings have been placed on hold for tracheostomy and PEG tube placement possibly today, she is hemodynamically stable, not requiring any vasopressor support. She is in sinus mechanism with a rate of 76 BPM, he had no acute events overnight, today's chest x-ray showing no evident pneumothorax, bilateral airspace disease similar to the prior exam, she said no fever or chills, vital signs have been stable overnight, she said no acute events, remains on the same antibiotics with a combination of Diflucan, Zosyn. Ankle Meissen has been discontinued, ID service is following. Her BAL cultures have shown no growth, urine, and blood cultures have been negative as well. Today's labs have been reviewed, her white blood cell count is 6.8, hemoglobin is 9.4, sodium is 137, potassium is 4.2, chloride is 105, CO2 is 23, BUN of 9, creatinine 0.59. On 05/29/2021 patient seen in follow-up in intensive care unit, she received a tracheostomy and PEG tube placement this morning, she is recovering from the procedure very well, she is resting comfortably in bed, she is currently likely sedated on 30 mics of dopamine, she is opening her eyes to voice, she is following simple commands, she is moving her hands, she is able to chief of internal medicine with both hands, she is moving her feet. Generally patient is very weak. But does not appear to be in any acute distress, midline tracheostomy in place, incisions clean dry and intact, patient also received a PEG tube. Her tube feedings are on hold, she remains on Diflucan, she remains on Zosyn for empiric antibiotic coverage. All of patient's blood cultures BAL cultures and sputum cultures have remained negative to date. She's had no fever or chills. She is currently on assist control mode of ventilation with a rate of 25, tidal vital 350, FiO2 100%, and PEEP of 5. Prior to her procedure this morning patient was on the same ventilator settings with the exception of FiO2 which was at 40%, her morning blood gases were reviewed showing pO2 of 79, pCO2 41, pH is 7.50, this was done on 40% FiO2, currently patient is saturating at 100% on a heart percent FiO2 and PEEP of 5. Breathing comfortably, and her FiO2 was dropped down to 60% and -50%. Chest x-ray showing bilateral multifocal and confluent opacities greatest in the right lung no significant change compared to one day earlier. Patient has been off norepinephrine for 48 hours, to prevent is infusing at 30 mics per kilo per minute, 0.9 normal saline at a rate of 20 ML per hour, she is in sinus mechanism with a rate of 90-100 bpm, his labs have been reviewed with blood cell count is 7.5, hemoglobin is 9.4, platelet count was 386, sodium is 134, the rest of electrolytes and renal profile are unremarkable. On 05/30/2021 patient is seen in follow-up in the intensive care unit, she status post tracheostomy and PEG tube placement yesterday on 05/29/2021, she tolerated procedure very well, she is currently on pressure support of 10, FiO2 of 40%, CPAP 5, she tolerated it very well, this morning's blood gas has been reviewed, pO2 of 79, pCO2 of 50, and pH of 7.39. Chest x-ray yesterday showed bilateral multifocal and confluent opacities without significant change from the day earlier, no need for another chest x-ray today, we'll obtain follow-up chest x-ray for tomorrow. She is currently off the prevent, and sedation has been off since yesterday. She is on 0.9 normal saline at a rate of 20 ML per hour, she remains on a combination of antibiotics was Diflucan and Zosyn, all of her cultures including BAL cultures have remained negative, she has been stable overnight, she's been afebrile, no complaint of chest discomfort. No hemoptysis. Today's labs have been reviewed showing white blood cell count of 11.3, hemoglobin of 9.6, platelet count of 474, sodium is 135, the rest of electrolytes and renal profile are within normal limits, BUN is 8, creatinine 0.59. Patient is supposed to be restarted on tube feedings. She is awake and alert, in no acute distress, she's been hemodynamically stable, not requiring any vasopressor support, she is following all commands, seems to be in good spirits. She's had no acute events overnight. On 06/02/2021 patient seen in follow-up in the intensive care unit, she is awake and alert, in no acute distress, patient received a tracheostomy and PEG tube placement on 05/29/2021, she had since tolerated trach collar at 60%, she is breathing comfortably, she denies any acute distress, her chest x-ray today showing patchy and confluent bilateral airspace disease, right greater than left, with slight interval worsening. Vital signs have been stable overnight, on 60% trach collar her pulse ox is 96-100%. She is afebrile, hemodynamically she has remained stable. She is on 0.9 normal saline at a rate of 75 ML per hour, apparently her tube feedings have been placed on hold related to some high residuals. Patient remains on antibiotics in the form of Zosyn and fluconazole, all her cultures including BAL cultures remain negative thus far. Today's labs have been reviewed, white blood cell count is 9.1, hemoglobin is 8.9, sodium is 140, potassium is 3.4, the rest is actually some renal profile are unremarkable. LFTs are within normal limits, follow-up pro-calcitonin level is 0.42, slightly improved from the previous value of 0.48. On 06/09/2021 patient seen in follow-up on medical surgical floor, she is resting comfortably in bed, is currently on 60% trach collar, and her pulse ox is 100%, breathing very comfortably, lung sounds reveal a few scattered rhonchi, right greater than left. No complaints of chest discomfort, no hemoptysis, vital signs have been stable, she is awake and alert, following commands and, responding appropriately, denies any acute distress. Patient had a CT of the chest on 06/08/2021, showing multifocal pneumonia, no evidence of a large central pulmonary embolism, and moderate right and small left pleural effusions with adjacent atelectasis. Clinically patient has been stable, for cultures including blood, BAL, urine culture and sputum cultures have shown no growth. Patient has completed antibiotics, and currently she is off all antibiotics, she remains on nebulized rhonchi with diabetes with DuoNeb. Blood work from yesterday has been reviewed, her Lamictal, is improving, is down to 10.04, hemoglobin is 8.0, electrolytes and renal profile are unremarkable, for follow- up pro-calcitonin is negative at 0.11. PEG tube is in place, and patient is tolerating tube feeding she is receiving Vital AF at 50 ML per hour. Objective - Vital Signs Vital signs: Vital Signs Temp 98.8 F 06/09/21 08:00 Pulse 108 H 06/09/21 13:15 Resp 18 06/09/21 08:00 BP 116/80 06/09/21 08:00 Pulse Ox 100 06/09/21 08:00 Intake & Output 06/08/21 06/09/21 06/09/21 18:59 06:59 18:59 Output Total 300 Balance -300 Output: Urine 300 Other: Voiding Method Diaper Incontinent # Voids 1 1 # Bowel Movements 1 1 1 - Exam GENERAL EXAM: Awake and alert, oriented 3 , 60% trach collar, 36-year-old frail looking white female, on 60% trach collar with a pulse ox of 96-100% comfortable in no apparent distress. HEAD: Normocephalic/atraumatic. EYES: Normal reaction of pupils, equal size. Conjunctiva pink, sclera white. NOSE: Clear with pink turbinates. MOUTH: She has ulcerations of her oral cavity THROAT: No erythema or exudates. NECK: No masses, no JVD, no thyroid enlargement, no adenopathy. Midline tracheostomy in place, on is on 60% trach collar, breathing comfortably patient is clean dry and intact CHEST: No chest wall deformity. Symmetrical expansion. LUNGS: diminished air entry with crackles, no wheeze, no rhonchi or dullness. CVS: Regular rate and rhythm, normal S1 and S2, no gallops, no murmurs, no rubs ABDOMEN: Soft, nontender. No hepatosplenomegaly, normal bowel sounds, no guarding or rigidity. PEG tube insertion site is clean dry and intact, patient is receiving tube feedings in the form of vital area at 50 ML per hour, tolerating tube feedings well. EXTREMITIES: No clubbing, no edema, no cyanosis, 2+ pulses and upper and lower extremities. MUSCULOSKELETAL: Muscle strength and tone normal. SPINE: No scoliosis or deformity SKIN: No rashes CENTRAL NERVOUS SYSTEM: Awake and alert, following command No focal deficits, tone is normal in all 4 extremities. - Labs CBC & Chem 7: 06/08/21 04:33 06/08/21 04:33 Labs: Abnormal Lab Results - Last 24 Hours (Table) 06/08/21 06/09/21 06/09/21 Range/Units 20:06 00:14 03:12 POC Glucose (mg/dL) 137 H 225 H (75-99) mg/dL Procalcitonin 0.11 H (0.02-0.09) ng/mL 06/09/21 06/09/21 06/09/21 Range/Units 03:58 11:41 12:32 POC Glucose (mg/dL) 134 H 61 L 118 H (75-99) mg/dL Procalcitonin (0.02-0.09) ng/mL Assessment and Plan Plan: Assessment: #1. Acute hypoxic respiratory failure related to worsening and progression of pneumonia, and chest x-ray showing patchy consolidation involving the right midlung, right upper lobe and right lower lobe in addition to extensive consolidation of the left lung with possibly some cavitation. Patient is currently covered with meropenem and vancomycin, her antibiotics have been modified yesterday, initially covered with Zosyn, patient was doing well on Airvo on 05/21/2021, was clinically improving, but suffered acute respiratory arrest on 05/21/2021 and was intubated, patient was successfully weaned and extubated on 05/23/2021 however failed again and had to be reintubated later that evening on 05/23/2021. In view of multiple episodes of respiratory failure patient will be considered for tracheostomy and PEG tube placement for weaning. Patient is status post bronchoscopy with bronchoalveolar lavage on 05/23/2021, so far BAL cultures are all negative. Patient is status post tracheostomy and PEG tube placement on 05/29/2021, tolerating pressure support trials pressure-support of 10 and CPAP of 5 on 05/29/2021, and again today on 05/30/2021. Patient has been tolerating trach collar trials, currently on 60% trach collar satting almost 100% #2. Altered mental status secondary to hypoglycemia. Patient had recovered, and she was back to baseline neurologically. Currently lightly sedated, patient is still intubated, but patient is following all commands #3. History of diabetes, and recent episode of diabetic ketoacidosis, recovered. Levemir insulin has been discontinued and patient is currently covered with sliding scale NovoLog, her last episode of hypoglycemia was on 05/19/2021 with a blood sugar of 45. No recurrence of hypoglycemia since #4. History of syncopal episodes related to hypoglycemia #5. History of migraine cephalgia #6. History of diabetic neuropathy #7. Chronic constipation #8. Chronic low back pain #9. Tongue and oral pharyngeal candidiasis, with ulcerations #10. Previous history of MRSA infection in the laceration of the scalp #11. Chronic anemia with interval drop in hemoglobin down to 6.1 without evidence of any active GI bleeding, patient has received 2 units of packed red blood cells this admission Plan: No worsening dyspnea or hypoxia Weaning FiO2 to maintain O2 saturations at 92-94% Patient has completed a course of antibiotics, All of her cultures including BAL cultures remain negative Progressed on a level is 0.11, significantly improved No fever or chills, no worsening cough or dyspnea She is tolerating tube feedings Increase activity as tolerated Discharge planning is in progress for discharge to subacute rehab Patient is stable for discharge to rehab from pulmonary perspective I performed a history & physical examination of the patient and discussed their management with my nurse practitioner, Dania Negron. I reviewed the nurse practitioner's note and agree with the documented findings and plan of care. Lung sounds are positive for dim breath sounds throughout the lung abbott. The findings and the impression was discussed with the patient. I attest to the documentation by the nurse practitioner. Time with Patient: Less than 30
[2021-06-09 16:33] LABS: Glucose,Whole Blood 110 mg/dL (75-99)
[2021-06-09 20:08] LABS: Glucose,Whole Blood 143 mg/dL (75-99)
[2021-06-09] MEDS: INSULIN DETEMIR (LEVEMIR) 100 UNIT/ML SYR SQ SCH (21:59)
[2021-06-09] MEDS: MONTELUKAST 10 MG TAB PO SCH (21:59)
[2021-06-09] MEDS: TEMAZEPAM 15 MG CAP PO SCH (21:59)
--- NOTE | 2021-06-09 22:35 | P.PN ---
Subjective Progress Note Date: 06/09/21 Principal diagnosis: Pneumonia Interval history : The patient is a 36-year-old female who presented to the hospital with an episode of unresponsiveness and concern for aspiration pneumonia. The patient subsequently did have worsening of her respiratory status, requiring intubation x2.Currently on the vent. The patient is status post trach and PEG completed 05/29/2021 On today's evaluation, 06/09/2021, The patient remains to be febrile, the patient is breathing comfortably on the trach collar, patient denies chest pain , patient has been tolerating her tube feeds and that he has resolved, fecal management system has been discontinued Objective - Vital Signs Vital signs: Vital Signs Temp 98.8 F 06/09/21 19:59 Pulse 110 H 06/09/21 21:02 Resp 18 06/09/21 19:59 BP 110/75 06/09/21 19:59 Pulse Ox 96 06/09/21 19:59 Intake & Output 06/09/21 06/09/21 06/10/21 06:59 18:59 06:59 Intake Total 0 Output Total 2 Balance -2 Intake: Oral 0 Output: Urine 2 Other: # Voids 1 # Bowel Movements 1 1 4 - Exam General description is a middle-aged female up in the chair in no distress Respiratory system:Unlabored breathing, decreased intensity of breath sounds. No wheeze. Heart S1, S2.Regular rate and rhythm. Abdomen soft, no tenderness Extremities: No edema feet - Labs CBC & Chem 7: 06/08/21 04:33 06/08/21 04:33 Labs: Abnormal Lab Results - Last 24 Hours (Table) 06/09/21 06/09/21 06/09/21 Range/Units 00:14 03:12 03:58 POC Glucose (mg/dL) 225 H 134 H (75-99) mg/dL Procalcitonin 0.11 H (0.02-0.09) ng/mL 06/09/21 06/09/21 06/09/21 Range/Units 11:41 12:32 16:21 POC Glucose (mg/dL) 61 L 118 H 110 H (75-99) mg/dL Procalcitonin (0.02-0.09) ng/mL 06/09/21 Range/Units 20:06 POC Glucose (mg/dL) 143 H (75-99) mg/dL Procalcitonin (0.02-0.09) ng/mL Microbiology - Last 24 Hours (Table) 05/22/21 09:44 Acid Fast Bacilli Smear - Final Bronchial Washings - Right Acid Fast Bacilli Culture - Preliminary Assessment and Plan (1) Pneumonia Current Visit: Yes Status: Acute Code(s): J18.9 - PNEUMONIA, UNSPECIFIED ORGANISM SNOMED Code(s): 505740535 Plan: 1. Patient with acute respiratory failure, likely multifactorial, with concern for possible component of aspiration pneumonia. Patient failed to be extubated and is status post trach and PEG, The patient's bronch culture has been negative for any resistant pathogen , The patient has received adequate antibiotic therapy for her pneumonia and is monitored closely off antibiotic 2patient diarrhea possible antibiotic associated stool for C. diff was negative , patient is clinically improved Violetaran which should be put on hold if no bowel movement for more than 24 hour Time with Patient: Less than 30
[2021-06-10 00:11] LABS: Glucose,Whole Blood 171 mg/dL (75-99)
[2021-06-10] MEDS: INSULIN ASPART (NovoLOG) 100 UNIT/ML VIAL SQ SCH ×6 (00:18→20:30)
[2021-06-10] MEDS: HYDROmorphone 0.5 MG/0.5 ML SYRINGE IVP PRN ×6 (02:51→22:32)
[2021-06-10 04:56] LABS: Glucose,Whole Blood 81 mg/dL (75-99)
--- NOTE | 2021-06-10 07:03 | P.PN ---
Progress Note - Text Diagnoses could include Critical Illness Myuopathy and Neuropathy.
[2021-06-10] MEDS ORDERED: DEXTROSE 50% SYRINGE 50 ML IVP ONE ×2 (07:05→11:50)
[2021-06-10 07:06] LABS: Glucose,Whole Blood 33 mg/dL (75-99)
[2021-06-10 07:26] LABS: Glucose,Whole Blood 177 mg/dL (75-99)
[2021-06-10] MEDS: THIAMINE 100 MG TAB PO SCH ×2 (07:33→17:21)
[2021-06-10] MEDS: IPRATROPIUM-ALBUTEROL 3 ML NEB INHALATION SCH ×3 (08:32→20:14)
[2021-06-10] MEDS: PANTOPRAZOLE 40 MG/10 ML VIAL IVP SCH (09:24)
[2021-06-10] MEDS: CHOLESTYRAMINE (WITH SUGAR) 4 GM PACKET PO SCH ×2 (09:25→17:23)
[2021-06-10] MEDS: CHOLECALCIFEROL 25 MCG (1000 IU) TABLET PO SCH (09:25)
[2021-06-10] MEDS: ZINC SULFATE 220 MG CAP PO SCH (09:25)
[2021-06-10] MEDS: PREGABALIN 75 MG CAP PO SCH ×3 (09:25→20:30)
[2021-06-10] MEDS: FLUoxetine HCL 20 MG CAP PO SCH (09:25)
[2021-06-10 11:50] LABS: Glucose,Whole Blood 29 mg/dL (75-99)
[2021-06-10] MEDS: FOLIC ACID 1 MG TAB PO SCH (12:01)
[2021-06-10] MEDS: MULTIVITAMINS, THERA 1 EACH TAB PO SCH (12:01)
[2021-06-10 12:07] LABS: Glucose,Whole Blood 174 mg/dL (75-99)
--- NOTE | 2021-06-10 12:50 | P.PN ---
Subjective Progress Note Date: 06/10/21 CHIEF COMPLAINT: Hypoglycemia HISTORY OF PRESENT ILLNESS: Patient status post tracheostomy and PEG tube p lacement on 05/29/2021. Patient is on a medical floor. Patient had complained of increased abdominal pain this morning and there was evidence of 150 mL residual. Her tube feeds were held. Dietitian will be addressing the type of tube feedings. Patient is stooling. She is having diarrhea. No longer requiring fecal management system. Denies any vomiting. During my exam she reports minimal abdominal pain around PEG tube site. PHYSICAL EXAM: VITAL SIGNS: Reviewed. GENERAL: no acute distress. HEENT: No sclera icterus. Extraocular movements grossly intact. Moist buccal mucosa. Head is atraumatic, normocephalic. Trach site clean dry and intact ABDOMEN: Soft. Nondistended. Minimal tenderness noted around PEG tube site PEG tube site clean dry and intact ASSESSMENT: 1. Acute hypoxic respiratory failure secondary to pneumonia. Patient was extubated and required to be reintubated on 05/23/2021. Patient status post tracheostomy placement 2. Severe protein calorie malnutrition. Patient status post PEG tube placement 3. Possible aspiration pneumonia PLAN: -tube feeds currently on hold -Continue to monitor -Continue supportive care -Continue antiemetics as needed -Antibiotics per ID -Social work addressing discharge planning at subacute rehab Physician Custodial Foreman note has been reviewed by physician. Signing provider agrees with the documented findings, assessment, and plan of care. Objective - Vital Signs Vital signs: Vital Signs Temp 98.9 F 06/10/21 09:17 Pulse 110 H 06/10/21 11:28 Resp 14 06/10/21 09:17 BP 107/73 06/10/21 09:17 Pulse Ox 95 06/10/21 09:17 Intake & Output 06/09/21 06/10/21 06/10/21 18:59 06:59 18:59 Intake Total 0 Output Total 3 Balance -3 Weight 46.1 kg Intake: Oral 0 Output: Urine 2 Stool 1 Other: Voiding Method Diaper Diaper Incontinent Incontinent # Voids 3 # Bowel Movements 1 1 - Labs CBC & Chem 7: 06/08/21 04:33 06/08/21 04:33 Labs: Abnormal Lab Results - Last 24 Hours (Table) 06/09/21 06/09/21 06/10/21 Range/Units 16:21 20:06 00:09 POC Glucose (mg/dL) 110 H 143 H 171 H (75-99) mg/dL 06/10/21 06/10/21 06/10/21 Range/Units 07:04 07:21 11:48 POC Glucose (mg/dL) 33 L 177 H 29 L (75-99) mg/dL 06/10/21 Range/Units 12:05 POC Glucose (mg/dL) 174 H (75-99) mg/dL Microbiology - Last 24 Hours (Table) 05/22/21 09:44 Acid Fast Bacilli Smear - Final Bronchial Washings - Right Acid Fast Bacilli Culture - Preliminary
[2021-06-10] MEDS: DEXTROSE 5%-0.9% NACL 1,000 ML IV SCH (13:16)
--- NOTE | 2021-06-10 14:21 | P.PN ---
Subjective Progress Note Date: 06/09/21 This is a 36-year-old female who was recently admitted with changes in mental status along with significant hypoglycemia and is being closely monitored. Patient continues on 100% BiPAP with continued dyspnea and pulmonary following closely. Patient also found to have bilateral pneumonia possible aspiration and also a fungal urinary tract infection. Patient continues in the ICU for close monitoring and infectious disease is also following. Patient continues on IV antibiotics in the form of meropenem along with fluconazole and vancomycin and will continue. Multiple family members at the bedside. Recommend repeat chest x-ray along with labs in the morning. White blood Count elevated at 19.1. Potassium is 3.4 and magnesium 1.6 and will replace per protocol. 05/21/2021 She is seen in follow-up continues to be in the ICU being closely monitored. Patient was maintained on BiPAP and attempting airvo to allow for oral intake. Only at the bedside with multiple questions and concerns answered to the best of our ability. Patient's mentation is improved and answering questions and responding to commands appropriately. Chest x-ray today shows bilateral diffuse airspace disease with small effusion, stable with no pneumothorax noted. Infectious disease following an patient is continued on IV fluconazole along with meropenem. Blood cultures remain negative. Blood count is mildly elevated at 20.2. Patient is afebrile. Recommend repeat labs and chest x-ray in the a.m. She denies any chest pains or palpitations at this time. Patient tolerating oral intake and recommend strict aspiration precautions of head of the bed elevated 30-45 at all times and supervision with meals. 05/22/2021 Patient is seen in follow up and being closely monitored in the ICU with multiple medical consultations following. Patient was an A team this morning for acute respiratory arrest that was witnessed by nursing staff at the bedside and was changing the patient after a bowel movement and became apneic and code blue was initiated. Patient did not lose pulse but was intubated and placed on sedation. Chest xray showed moderately severe pulmonary edema without change compared to yesterday. Patient was given a dose of lasix. Patient is on some pressor support as well. Pulmonary following and patient underwent bronchoscopy with fluid analysis sent and pending. Patient is continued on IV merrem and vancomycin with ID following closely. Await finalized cultures. WBC elevated as well at 26.8. 05/23/2021 Patient is seen and evaluated this morning and continues in critical condition in the ICU. Mother at the bedside and patient was extubated this morning. Patient is currently resting on 2L of02 via NC with oxygen saturation above 90%. Patient is extremely lethargic but arousable. Chest xray shows persistent but improving airspace disease, right greater than left. Mother is at the bedside. May Patient is seen and evaluated today in follow-up continues to be in the ICU being closely monitored. Patient continues on mechanical vent with sedation and attempts at weaning continue. Pulmonary and ID following closely. Patient continues with FI02 of 60%. Patient also continues on IV fluconazole and Zosyn and will continue. Chest xray today shows bilateral multifocal and confluent opacities redemonstrated consistent with covid 19 infection and or ARDS is redemonstrated with no significant change from yesterday. 05/27/2021 Patient is seen and evaluated this morning and continues on mechanical ventilation and lightly sedated on propofol although patient is awake and following commands although fatigues easily. General surgery consulted for PEG and trach placement for pulmonary invoice checker recommendations. Infectious disease following an patient is maintained on fluconazole along with IV Zosyn and will continue. Patient continues with multiple episodes of loose stool with fecal management system and C. diff testing is ordered. Potassium mildly low at 3.4 and will replace per protocol. Magnesium is 2.2 today. Chest x-ray today shows patchy bilateral lung infiltrates that are stable. 05/28/2021 Patient is seen in follow-up in the ICU continues to be closely monitored with multiple medical consultations following. Plan for today was possible peg and trach placement although surgery extremely busy and will likely occur tomorrow. Patient continues on IV abx with ID following closely. Patient continues on mechanical vent with an FI02 of 50%. Minimally sedated. 05/29/2021 Patient is seen this morning status post PEG tube and tracheostomy placement and continues on mechanical vent with an FiO2 of 50% and PEEP is 5. Mother at the bedside with questions and concerns answered. PEG tube on hold currently for 24 hours and awaiting clearance from surgery to start tube feedings. Chest x-ray today shows bilateral multifocal and confluent opacification greatest in the right lung are redemonstrated consistent with COVID-19 and/or arts with no significant change from previous day. Patient is awake and nodding yes and no appropriately. 05/30/2021 Patient is seen today currently sitting up in the chair and recently placed on trach collar as she is status post tracheostomy and PEG tube placement yesterday. Tube feedings were started on the PEG tube although patient became nauseated and currently on hold and will continue to monitor. Patient continues with loose stool and does have fecal management system that is intact. Recommen d to keep the rectal tubing as patient experiences more frequent episodes of loose stool with feedings. Trach collar is 50% FiO2. Patient continues on IV zosyn with ID following. 05/31/2021 Patient evaluated today in the ICU resting in bed. [place] catheter and fecal management system in place. Oxygenation maintained on trach collar with Fi02 of 50% and oxygen saturation of 96%. Patient does present with congested cough. She is nauseas today and feels like she wants to throw up. Nurse reports minimal residual volumes with feedings. Tube feedings were placed on hold, and she will be placed to suction via PEG tube. Concerns for aspiration. She is getting IV zofran and IV protonix. Repeat chest xray today shows slight interval worsening of multifocal airspace opacities right greater than left. Labs today show WBC 15.2, hgb 9.2, platelet count 533, sodium 137, potassium 4.2, glucose in the 180s. Patient with low grade fever 99.3, heart rate 108, respirations 17, blood pressure 116/73, 96% on trach collar. All cultures negative. Continues on IV Zosyn and IV fluconazole. 06/01/2021 Patient evaluated today in bed with HOB around 30. Per RN she was up in the chair yesterday. Indwelling catheter and Fecal management system in place. Patient is on trach colloar with FiO2 50% with oxygen saturation of 97%. Blood pressures are marginal at 98/76, respirations 14, heart rate 105, afebrile. Patient to feedings were placed on hold yesterday with PEG tube to suction. She still complains of ongoing nausea which is not improved. She is no longer dry heaving on my assessment. Patient is in a negative fluid balance. We will start patient's IV hydration with normal saline at 75 mL per hour. She continues on IV Zofran. She is also on IV Tylenol, IV fluconazole, IV Zosyn. Chest x-ray shows correlation for pneumonia. Blood fungal culture is currently pending. 06/02/2021 Patient is seen and evaluated in follow up this morning and continues to be in the ICU being closely monitored. Patient is currently up in the chair and on trach collar at 60% although per nursing staff being weaned down to 40%. Patient persists with nausea and having high residuals and tube feeds on hold. Reglan scheduled being added and will resume tube feeds once nausea improves and start slowly on tube feeds. Chest xray today shows patchy and confluent bilateral airspace disease right greater than left that shows slight interval worsening. Patient remains on IV zosyn and fluconazole with ID following as well. 06/03/2021 Patient is seen in follow-up this morning lethargic although arousable and continues on trach collar and tolerating well at 60% FiO2. Currently being titrated down to 40% and oxygen saturations remained above 95%. Patient is afebrile and no reports of worsening shortness of breath or chest pain. Chest x-ray today shows stable portable chest with diffuse bilateral patchy infiltrates persist and unchanged and pleural effusion also unchanged. Multiple medical consultations including general surgery, infectious disease and pulmonary invoice checker following. Family is now agreeable to [facility] for some rehab for strength and mobility and social work following and working on accepting facility. Patient continues on antifungal and is off IV antibiotics with infectious disease following closely. 06/04/2021 Patient is seen this morning in follow-up continues on a trach collar with an FiO2 of 40% and tolerating well. continues with secretion and suctioning. Patient continues to be withdrawn and does have an extensive history of depression and is frustrated with prolonged hospitalization and misses her children. No new chest xray today or labs and will repeat in the am. Psychiatry consulted to evaluate the possible need for medication adjustments and appreciat e input and recommendations. social work following and looking on accepting facilities. Patient may likely need LTAC. Patient also continues to pick nervously at scalp of which has been ongoing but worsening since admission. Will add bacitracin and encouraged the patient to avoid picking. 06/05/2021 Patient is seen today continues to be in the ICU maintaining oxygen saturations are trach collar with an FiO2 of 40% chest x-ray continues to show bilateral airspace disease right greater than left without significant change. Multiple medical consultations following including psychiatry and has made some adjustments to medications and added sleep aid. Patient continues to pick at her scalp and is worsening although does not appear infected. Wound care consulted and appreciate input and recommendations. Patient currently awaiting a bed out of the ICU and SNF acceptance that can manage a trach collar. 06/06/2021 Patient is seen this morning and is on the med/surg floor and is tolerating trach collar at 40%. Pulmonary, psychiatry, and ID following. Patient continues to be weak and is working with physical therapy daily. Patient currently has a cap over her scalp which appears to be somewhat helping with her excessive picking of the wound. Continue local wound care. Patient appears in better spirits today. Spoke with mother today at the bedside about finding a suitable SNF or facility that has respiratory therapy on staff to assist with trach care and frequent suctioning that she has been requiring. Patient is currently off antibiotics and afebrile. No new labs from today and will order repeat labs along with a chest xray. Continue close monitoring of blood sugars as well and current medication regimen. 06/09/2021 Patient is seen this morning in follow-up continues to be on trach collar at 60%. Patient tolerating tube feedings although having some intermittent periods of nausea and will continue with Reglan and/or Zofran and continue tube feedings. Patient is working with physical therapy daily and have placed a consult for [facility] inpatient rehab with Dr. Shipman reactive social work following as well working on discharge planning. Pulmonary invoice checker foll owing as well and patient is stable from their standpoint for discharge to inpatient rehab facility. Patient is weak and has had prolonged hospitalization and would greatly benefit from an inpatient rehab with close monitoring of multiple medical issues as patient is considered critically ill. Review of systems: Constitutional: reports of fatigue, no reports of fever, or chills Cardiovascular: No reports of chest pain or palpitations Respiratory: No reports of worsening shortness of breath or cough status post tracheostomy and trach collar, frequent suctioning GI: reports of intermittent nausea, vomiting, reports continued loose stool with slight improvement. Tolerating tube feeds : No reports of dysuria or retention Neurovascular: Reports of generalized weakness All medications have been reviewed Active Medications Acetaminophen (Acetaminophen Tab 325 Mg Tab) 650 mg PO Q6HR PRN PRN Reason: Fever and/ or Mild Pain Last Admin: 05/23/21 04:35 Dose: 650 mg Documented by: Albuterol/Ipratropium (Ipratropium-Albuterol 3 Ml Neb) 3 ml INHALATION RT-TID PENDING SALE TO [facility] Last Admin: 06/09/21 13:01 Dose: 3 ml Documented by: Cholecalciferol (Cholecalciferol 25 Mcg (1000 Iu) Tablet) 50 mcg PO DAILY PENDING SALE TO [facility] Last Admin: 06/09/21 09:15 Dose: 50 mcg Documented by: Cholestyramine Resin (Cholestyramine (With Sugar) 4 Gm Packet) 4 gm PO BID@1000,1800 PENDING SALE TO [facility] Last Admin: 06/09/21 09:18 Dose: 4 gm Documented by: Fluoxetine HCl (Fluoxetine Hcl 20 Mg Cap) 40 mg PO DAILY PENDING SALE TO [facility] Last Admin: 06/09/21 09:15 Dose: 40 mg Documented by: Folic Acid (Folic Acid 1 Mg Tab) 1 mg PO DAILY@1200 PENDING SALE TO [facility] Last Admin: 06/09/21 09:16 Dose: 1 mg Documented by: Hydromorphone HCl (Hydromorphone 0.5 Mg/0.5 Ml Syringe) 0.5 mg IVP Q3HR PRN PRN Reason: Severe Pain Last Admin: 06/09/21 12:34 Dose: 0.5 mg Documented by: Insulin Aspart (Insulin Aspart (Novolog) 100 Unit/Ml Vial) 0 unit SQ Q4H PENDING SALE TO [facility]; Protocol Last Admin: 06/09/21 11:51 Dose: Not Given Documented by: Insulin Detemir (Insulin Detemir (Levemir) 100 Unit/Ml Syr) 20 unit SQ [facility] Last Admin: 06/08/21 21:49 Dose: 20 unit Documented by: Metoclopramide HCl (Metoclopramide 5 Mg/Ml 2 Ml Vial) 5 mg IVP Q6HR PRN PRN Reason: Nausea And Vomiting Last Admin: 06/02/21 15:30 Dose: 5 mg Documented by: Miscellaneous Information (Magnesium Replacement Protocol 1 Each Misc) 1 each MISCELLANE DAILY PRN; Protocol PRN Reason: Per Protocol Miscellaneous Information (Potassium Replacement Protocol 1 Each Misc) 1 each MISCELLANE DAILY PRN; Protocol PRN Reason: Per Protocol Miscellaneous Information (Rx Info: Iv Contrast Was Given 1 Each Misc) 1 each MISCELLANE DAILY PRN PRN Reason: Per Protocol Stop: 06/10/21 10:58 Montelukast Sodium (Montelukast 10 Mg Tab) 10 mg PO [facility] Last Admin: 06/08/21 21:49 Dose: 10 mg Documented by: Multivitamins (Multivitamins, Thera 1 Each Tab) 1 each PO DAILY@1200 PENDING SALE TO [facility] Last Admin: 06/09/21 09:15 Dose: 1 each Documented by: Ondansetron HCl (Ondansetron 4 Mg/2 Ml Vial) 4 mg IVP Q6HR PRN PRN Reason: Nausea And Vomiting Last Admin: 06/08/21 09:31 Dose: 4 mg Documented by: Pantoprazole Sodium (Pantoprazole 40 Mg/10 Ml Vial) 40 mg IVP DAILY PENDING SALE TO [facility] Last Admin: 06/09/21 09:15 Dose: 40 mg Documented by: Pregabalin (Pregabalin 75 Mg Cap) 75 mg PO TID PENDING SALE TO [facility] Last Admin: 06/09/21 09:15 Dose: 75 mg Documented by: Sumatriptan Succinate (Sumatriptan Succinate 50 Mg Tab) 100 mg PO DAILY PRN PRN Reason: Migraine Headache Temazepam (Temazepam 15 Mg Cap) 15 mg PO HS PENDING SALE TO [facility] Last Admin: 06/08/21 21:49 Dose: 15 mg Documented by: Thiamine HCl (Thiamine 100 Mg Tab) 100 mg PO BID-W/MEALS PENDING SALE TO [facility] Last Admin: 06/09/21 09:15 Dose: 100 mg Documented by: Zinc Sulfate (Zinc Sulfate 220 Mg Cap) 220 mg PO DAILY [facility]END[facility]ALE TO [facility] Last Admin: 06/09/21 09:15 Dose: 220 mg Documented by: Physical Exam: Gen: This is a 36-year-old female who is awake, alert and oriented x3. Status post tracheostomy placement, thin built, cachectic. on 60% FiO2 trach collar HEENT: Head is atraumatic, normocephalic. Pupils equal, round. Sclerae is anicteric. oral mucosa moist NECK: Supple. No JVD. No lymphadenopathy. No thyromegaly. tracheostomy and collar noted LUNGS: Breath sounds diminished with scattered rhonchi noted. No intercostal retractions. HEART: S1, S2 are muffled ABDOMEN: Soft. Bowel sounds are present. No masses. No tenderness. peg tube noted EXTREMITIES: No pedal edema. No calf tenderness. NEUROLOGICAL: Patient is awake, alert and oriented x3. Nodding yes and no to questions and commands appropriately. 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 Infectious disease and pulmonary following closely and patient remains on FI02 is 60% trach collar and tolerating well. Patient continues to need frequent suctioning. Tolerating tube feedings and patient continues with loose stool. Questran as well. Recommend to keep the bed elevated 30-45 at all times and maintain aspiration precautions. Blood cultures remain negative. ID following and has been off IV antibiotics. Recomm end to continue to monitor blood sugars closely. social work following and looking for accepting facilities. Possible [facility] inpatient rehab candidate and consult for Dr. Shipman was placed. She has had prolonged hospitalization and has been working with physical therapy daily and will greatly benefit given multiple medical issues and complex issues at an inpatient rehab facility. Continue local wound care to the scalp with frequent reminders to avoid picking at the scalp. Will continue to monitor closely. Guarded prognosis. Objective - Vital Signs Vital signs: Vital Signs Temp 98.4 F 06/09/21 01:35 Pulse 110 H 06/09/21 08:20 Resp 17 06/09/21 01:35 BP 121/85 06/09/21 01:35 Pulse Ox 100 06/09/21 01:35 Intake & Output 06/08/21 06/09/21 06/09/21 18:59 06:59 18:59 Output Total 300 Balance -300 Output: Urine 300 Other: Voiding Method Diaper Incontinent # Voids 1 1 # Bowel Movements 1 1 - Labs CBC & Chem 7: 06/08/21 04:33 06/08/21 04:33 Labs: Abnormal Lab Results - Last 24 Hours (Table) 06/08/21 06/08/21 06/08/21 Range/Units 04:33 04:53 11:39 Carbon Dioxide 30.1 H (20.0-27.5) mmol/L Anion Gap 7.60 L (10.00-18.00) mmol/L Creatinine 0.4 L (0.6-1.5) mg/dL BUN/Creatinine Ratio 33.06 H (12.00-20.00) Ratio POC Glucose (mg/dL) 114 H (75-99) mg/dL Calcium 8.1 L (8.7-10.3) mg/dL Procalcitonin 0.11 H (0.02-0.09) ng/mL 06/08/21 06/09/21 06/09/21 Range/Units 20:06 00:14 03:12 Carbon Dioxide (20.0-27.5) mmol/L Anion Gap (10.00-18.00) mmol/L Creatinine (0.6-1.5) mg/dL BUN/Creatinine Ratio (12.00-20.00) Ratio POC Glucose (mg/dL) 137 H 225 H (75-99) mg/dL Calcium (8.7-10.3) mg/dL Procalcitonin 0.11 H (0.02-0.09) ng/mL 06/09/21 Range/Units 03:58 Carbon Dioxide (20.0-27.5) mmol/L Anion Gap (10.00-18.00) mmol/L Creatinine (0.6-1.5) mg/dL BUN/Creatinine Ratio (12.00-20.00) Ratio POC Glucose (mg/dL) 134 H (75-99) mg/dL Calcium (8.7-10.3) mg/dL Procalcitonin (0.02-0.09) ng/mL
--- NOTE | 2021-06-10 14:30 | P.PN ---
Subjective Progress Note Date: 06/10/21 This is a 36-year-old old female, seen in the emergency room, room 10. The patient was just discharged out of the hospital yesterday, May 16. The patient apparently returned to the emergency room, with a low blood sugar. She was brought in by EMS. She apparently has no memory of why she was in the ospital. She apparently was hungry when she came into the ER. She complained of back pain. Her blood glucose on arrival was 36. The patient was in the hospital recently for a left-sided pneumonia. The patient also has a history of diabetes with diabetic ketoacidosis. The patient is currently on O2 at 2 L. She's getting D5 0.9 at 75 mL an hour. She was given Augmentin, but we discontinued it in favor of Zosyn. The patient has a history of diabetes, diabetic neuropathy, chronic low back pain, migraine cephalgia, chronic constipation, and prior MRSA infection. White count 21.9, hemoglobin 8.8, hematocrit 28.7, and platelet count 474,000. Sodium 129, potassium 4.4, chlorides 102, CO2 24, anion gap 3, BUN 7, with a creatinine of 0.29. Albumin is 2. Urine is light yellow in color, and cloudy, leukocyte esterase being small positive, 9 WBCs, and rare bacteria. Drug screen is negative. Testing for ling virus was negative. Chest x-ray shows bilateral pneumonia, with dense consolidation within the left lung, and much less infiltrate in the right base. Progress note dated 05/18/2021. This is a 36-year-old female, who was seen in the emergency department in consultation yesterday, and room 10. The patient was recently discharged from the hospital on May 16. She was brought back in for mental status changes, and a low blood sugar. Apparently her blood glucose was only 36. Her prior admission was for diabetic ketoacidosis, and left-sided ammonia. Currently, she is back to her normal self. The patient is on 4 L nasal O2. She's not complaining of any respiratory distress or difficulty. She has a dry nonproductive cough. She was placed on Zosyn yesterday by our team. She was seen by infectious diseases. She has a history of diabetes, diabetic neuropathy , chronic low back pain, migraine cephalgia, chronic constipation, and prior MRSA infection. Currently, white count 19.3, he will been 7.2, hematocrit 24, and platelet count 449,000. Sodium 133, potassium 3.8, chlorides 100, CO2 21, anion gap 12, UN 7, and creatinine 0.4. Pro-calcitonin level is 0.15. C- reactive protein is 5.7. On today's evaluation of 05/19/2021, the patient is doing well. The patient is awake and alert. No signs of any significant respiratory distress. The patient was restarted back on IV Zosyn. The chest x-ray showed extensive consolidation of the left lung and the CAT scan of the chest also confirmed the same findings. The patient was Hospital as because of hypoglycemia. The patient altered mentation and she recovered fully. She is currently on Levemir 20 units along with sliding scale coverage. She is also on D5 water running at 100 mL an hour. Antibiotic coverage with IV Zosyn. Blood work shows a white cell count 12.4 with hemoglobin 8.5, BUN is at 5 with a creatinine of 0.4 and his sodium is at 134 with a potassium level of 3.3. The COVID 19 test that was negative. Urine drug screen was negative. Pro-calcitonin level has been consistently low. A focused on level was at 0.15. The patient currently is on oxygen 4 L per minute nasal cannula. She is afebrile. She is medically and hemodynamically stable at this point in time. She has poor dental conditions and poor oral hygiene. She has also developed some ulceration over the tip of the tongue probably related to candidal infection. On 2021, the patient's condition decompensated and the patient got transferred to the intensive care unit for respiratory support. Overnight, the patient became progressively more hypoxemic and short of breath. She was given a dose of Lasix 40 mg IV push without any much improvement. She was becoming also more lethargic and short of breath. She got transferred to the ICU. Currently she is on a BiPAP at a pressure of 12/6 cm of water with an FiO2 of 100%. Her Pulse Ox Is 99%. A Chest X-Ray Showed Extensive Consolidation of the Left Lung. There Are Some Air Bronchograms on the Left. At the Same Time There Are Some Air Pockets in the Left [place] Which Makes Me Concerned about an Underlying Cavitation/Abscess Formation. At the Same Time, There Is Progression of the Airspace Disease and There Is Development of New Patchy Opacities in the Right Midlung and the Right Lower Lung. Note That the Patient Was Covered with IV Zosyn for Any Potential Aspiration Pneumonia.Pro-Calcitonin Level Was at 0.15. Currently She Is on BiPAP Which Is Quite Comfortable. She instructed BiPAP dependent. The patient easily decompensates and desaturates 1 she's taken off the BiPAP. Note that she also had extensive oropharyngeal candidiasis and ulceration of the tongue for which she was given Diflucan. I added cold solution on her yesterday. She is unable to do adequate oral care as the patient is BiPAP dependent. In terms of IV fluids, the patient is on D5 water running at 40 mL an hour. This was started due to concerns of underlying episodes of hypoglycemia. She is a very brittle diabetic. Her blood sugars are all over the place. She is currently on Levemir insulin 20 units a day along with a sliding scale coverage. The Levemir insulin was given today. She is not eating much at this point in time as the patient is BiPAP dependent. Other blood work, her white cell count of 19.0 which is higher compared to yesterday. Hemoglobin is at 7.8. The blood gas while on 100% BiPAP initially showed a pH of 7.37 with a pCO2 of 46 and pO2 of 50. Current saturations up to 90%. Sodium is at 130 with a potassium level of 3.4 and a serum bicarb of 23 with a mean of 4 and a creatinine of 0.4. Her albumin is down to 2.0 with a total protein of 5.7. Cultures for now are negative in terms of blood culture. Note that the patient had MRSA and E. coli and strep in her urine back in 05/09/2021. She has also has had a previous MRSA wound infection involving the scalp. She is arousable. She is a bit lethargic. No agitation. On 05/21/2021 patient seen in follow-up in the intensive care unit, she currently remains on BiPAP support as of 12 and 600%, and her pulse ox is 99- 100%, she is awake and alert, oriented 3, she is extremely thirsty and hungry, does not appear to be in any acute distress, no complaints of worsening dyspnea, she seems to be breathing comfortably, nursing staff reports that patient was able to come off the BiPAP support to take sips of water, oral care, and pills, and patient tolerates being off BiPAP support better although she does desaturate. She is afebrile, hemodynamically she is stable, she remains on a combination of meropenem and vancomycin and Diflucan which were modified yesterday. Blood cultures have been negative thus far, she's been afebrile, no hemoptysis, no complaints of chest discomfort. Produced 5.2 L in urine output in response to Lasix, and she is in -3.8 L net fluid balance over the last 24 hours, today's chest x-ray has been reviewed, showing stable diffuse bilateral airspace disease. Absent been reviewed, white blood cell count is 20.2, hemoglobin is 7.9, platelet count is 482, serum sodium is 133, potassium 3.7, chloride is 104, CO2 is 24, B1 is 5 creatinine 0.42. Her last pro-calcitonin level from 05/18/2021 was 0.15. On 05/22/2021 patient seen in follow-up in intensive care unit, last night during an episode of getting cleaned up after having a bowel movement patient complained of not feeling well, she certainly became unresponsive, she started desaturating, her respirations became very agonal and rapid response team was called for ERIC BLUE. There was no seizure activity noted prior to the event, patient was not desaturating just prior to that, no arrhythmias were noted other than bradycardia after she had started desaturating. During the code patient did not lose her pulse, her pulse ox was down to 66% on high flow Airvo, she was emergently intubated and placed on mechanical ventilator, chest x-ray shows severe ARDS, she was hypotensive and received IV fluids and received norepinephrine infusion which is currently still infusing at 0.06 mics per kilo per minute, she was not hypoglycemic and her blood sugar at that time was 177, she had D5W infusing at 40, and she was starting to take in some oral intake. This morning she is sedated, intubated on assist control mode of ventilation with a rate of 16, tidal, 350, FiO2 is currently at 50% and PEEP of 8, this morning's blood gas shows pO2 of 102, pCO2 of 43, pH is 7.34, this was done on 70% FiO2 which had since been dropped down to 50%, this morning's chest x-ray was reviewed showing moderately severe pulmonary air space edema, without significant change compared to yesterday. The patient is in sinus mechanism, blood pressure is 112/72, currently on meropenem, vancomycin and Diflucan for aspiration pneumonia, blood cultures have been negative, patient has not been able to produce a sputum culture for us. Her labs reveal white blood cell count of 26.8 which is increased since yesterday from 20.2, hemoglobin of 7.9, platelet count of 530, sodium is 134, potassium is 4.0, chloride is 107, CO2 is 21, BUN is 7 creatinine 0.52, her glucose this morning is 203, LFTs were within normal limits, her last pro-calcitonin level from a few days ago was 0.15. Yesterday patient was given a liter bolus after she became intubated, she is producing urine in the order of 30-75 ML per hour, her Lasix is on hold. On 05/23/2021 patient seen in follow-up in the intensive care unit, she is sedated, intubated on mechanical ventilator with a assist control mode of ventilation and rate of 16, tidal emesis 50, FiO2 of 60% and PEEP of 8, this morning's blood gas was reviewed showing O2 of 154, pCO2 of 45, and pH of 7.37. Is currently on Diprivan at 40 mics per kilo per minute, Levaquin is at 3 mics per minute, 0.9 saline at any ML per hour. Today's chest x-ray showing persistent but improving bilateral airspace disease, right greater than left. There is some blood work has been reviewed showing white blood cell count of 13.4, hemoglobin of 7.3, sodium of 140, potassium is 3.9, chloride is 110, CO2 of 22, BUN of 6, creatinine of 0.62, this morning his glucose was 221. Recent have fevers overnight with a T-max of 101.5F. She currently remains on combination of meropenem, vancomycin and Diflucan. Patient is status post bronchoscopy and bronchoalveolar lavage on 05/22/2021, and BAL cultures are still pending. Gram stain showed no organisms thus far. Patient is tolerating tube feedings with vital HP at a rate of 20 ML per hour, Orellana catheter is in place, and patient is producing urine in the order of 50 to 100 mL per hour. On 05/24/2021 , is being seen for a follow-up. Note that the patient was extubated successfully yesterday. Extubation process went fine and the patient was doing very well on a nasal cannula oxygen. At around midnight, the patient acutely decompensated. She became short of breath and hypoxic. Her blood. This was done that showed acute respiratory acidosis with a pH of 7.24 with a pCO2 of 67 and pO2 of 80 and this was identified to 100%. He became acutely unresponsive and significant respiratory distress was noted by the nursing staff. At that point, it was decided that he intubated the patient. The patient is currently intubated on a mechanical ventilator. The patient is sedated with propofol which is running at 30 mcg/kg per minute to maintain synchrony with the mechanical ventilator. She is on assist control mode at the rate of 25, tidal volume of 350, FiO2 has been weaned down to 50% and the patient currently is in a PEEP of 10. Post intubation blood gases showed a pH of 7.48 with a pCO2 of 43 and pO2 of more than 400 and this was on FiO2 100%. Morning blood work also showed a drop in hemoglobin down to 6.1 from a baseline of 7.3. No evidence of any acute bleeding. No evidence of any hematemesis or melanotic stools. The patient will be given a total of 2 units of packed RBCs. Also, the patient is covered with broad-spectrum antibiotics patient remains on a combination of meropenem, vancomycin and Diflucan. The cultures from the bronchioloalveolar lavage was done earlier came back all negative. The repeat chest x-ray from today is showing adequate placement of the orotracheal tube. The patient continues to have bilateral pulmonary infiltrates. However, there is significant interval improvement in the bilateral pulmonary infiltrates compared to earlier chest x-rays. The white cycles of 7.12. Renal function is stable with a creatinine of 0.5 and a BUN of 7. Sodium level is at 144. Potassium level is at 3.2 and a K level will be replaced. The patient was restarted again on enteral feeding and this will be restarted today. Meanwhile, in terms of blood sugar control, the patient is receiving Levemir insulin 20 units once a day and a sliding scale coverage. Blood sugars have been maintained adequately and her most recent blood sugar currently is at 172. Her vancomycin felt level from today was 28. 05/25/2021, the patient is awake even on a low dose of propofol at 30 mcg/kg per minute. She is following commands. She wants to get the tube out. She is on a mechanical ventilator at the rate of 25, tidal volumes of 350, PEEP is at 10 and FiO2 is currently at 40%. PH is at 7.48 with a pCO2 of 43 and pO2 of 113. The lavage from the lungs did not yield any microbial growth. The patient continues to have diffuse bilateral pulmonary infiltrates and there is extensive consolidation bilaterally more so on the right. White secondary to 6.7. Hemoglobin is at 10.1 platelet count is at 356. Creatinine stable at 0.4. BUN is at 7. Sodium is at 139. LFTs are normal. Blood sugars at 168. The patient remains on a broad-spectrum antibiotic coverage. The patient is receiving IV Diflucan, IV vancomycin and IV meropenem. There was always the concern of aspiration in this patient as the patient developed initially extensive left lung consolidation subsequently infiltrates moved to the right. The bronchoscopy was done yielded no significant respiratory secretions or microbial growth at this point in time. She is on Levemir insulin and a sliding scale coverage. She is on no pressors for now. She is is slightly positive over the past 24 hours. The patient was receiving enteral feeding for nutritional support. She is currently on vital high protein at the rate of 20 mL an hour. No hypoglycemic attacks. As mentioned, she is easily arousable and she is moving all 4 extremities without any limitation. No fever. No significant leukocytosis. All of the cultures are negative. She remains on D5W at the rate of 75 mL an hour. No reported abdominal pain. LFTs are normal. Ultrasound abdomen showed a questionable gallbladder wall thickening and a calculus cholecystitis. On 05/26/2021 patient seen in follow-up in the intensive care unit, she is currently sedated, and intubated, on assist-control mode of ventilation with a rate of 25, tidal 350, FiO2 of 50% and PEEP of 5, this morning's blood gas shows pO2 of 55, pCO2 of 41, and pH of 7.54 and this was done and FiO2 of 40% and subsequently FiO2 was increased to 55%. She's currently on point and within indurated 20 ML per hour, norepinephrine drip has been off for over 12 hours, and improving and is at 30 mics per kilo per minute, she is on a vital high protein at a rate of 20 with standard water flushes 30 mL every 4 hours, today's chest x-ray has been reviewed showing bilateral multifocal confluent opacities. No significant change from one day earlier. Patient remains on a combination of antibiotics with Zosyn, vancomycin and Diflucan. Patient is status post bron choscopy with bronchoalveolar lavage on 05/22/2021, and so far BAL cultures are all negative, sputum and blood cultures and urine were all negative. Today's labs have been reviewed, white blood cell count is improved and is down to 7.3, hemoglobin is 9.8, sodium is 137, potassium is 3.4, chloride is 105, BUN is 8, creatinine 0.53. Hemodynamic patient is stable, she is in sinus mechanism, she has had no acute events overnight. No febrile episodes. He is currently likely sedated, she is opening eyes to verbal stimulation, and she seems to be following simple commands. Her LFTs are within normal limits. On 05/27/2021 patient seen in follow-up in the intensive care unit, she is lightly sedated, she opens her eyes to voice, she is following simple commands, does not appear to be in any acute distress, she still intubated, on assist- control mode of ventilation with a rate of 25, Tylenol level was 350, FiO2 of 50% and PEEP of 5, this morning's blood gas shows pO2 of 85, pCO2 44, and pH of 7.52. This was done on the above-mentioned ventilator settings. Today's chest x-ray changed to show patchy bilateral lung infiltrates that are stable in appearance. Vital signs have been stable overnight, no fever, no chills. All of her cultures including BAL cultures remained negative. Patient remains on a combination of antibiotics with Diflucan, Zosyn and vancomycin. She did require small dose of norepinephrine on which she remains, currently infusing at a rate of 3.9 mics per minute. Current blood pressure is 140/89, and norepinephrine can be discontinued. Urine output is in the order of 50 TOPD ML per hour. Patient is receiving the program at 30 mics per kilo per minute, and IV fluids are 0.9 normal saline at a rate of 20 ML per hour, she is tolerating tube feedings with vital AF at a rate of 36 with a goal of 36 and standard water flushes. Today's labs have been reviewed showing white blood cell, 7.4, hemoglobin of 10.4, platelet count of 377, sodium is 137, potassium is 3.4, chloride is 105, CO2 of 33, BUN of 9 creatinine 0.56 On 05/28/2021 patient is seen in follow-up in the intensive care unit, she is slightly sedated, she is awake, alert, she is following command, she still intubated on mechanical ventilator, on assist control mode of ventilation with a rate of 25, tidal volume 350, FiO2 of 40% and PEEP of 5. This was blood gas shows pO2 of 76, P CO2 of 43, and pH is 7.53 this was done on the above- mentioned ventilator settings, she is currently on 30 mics of dopamine, 0.9 normal seen at a rate of 20 ML per hour, tube feedings have been placed on hold for tracheostomy and PEG tube placement possibly today, she is hemodynamically stable, not requiring any vasopressor support. She is in sinus mechanism with a rate of 76 BPM, he had no acute events overnight, today's chest x-ray showing no evident pneumothorax, bilateral airspace disease similar to the prior exam, she said no fever or chills, vital signs have been stable overnight, she said no acute events, remains on the same antibiotics with a combination of Diflucan, Zosyn. Ankle Meissen has been discontinued, ID service is following. Her BAL cultures have shown no growth, urine, and blood cultures have been negative as well. Today's labs have been reviewed, her white blood cell count is 6.8, hemoglobin is 9.4, sodium is 137, potassium is 4.2, chloride is 105, CO2 is 23, BUN of 9, creatinine 0.59. On 05/29/2021 patient seen in follow-up in intensive care unit, she received a tracheostomy and PEG tube placement this morning, she is recovering from the procedure very well, she is resting comfortably in bed, she is currently likely sedated on 30 mics of dopamine, she is opening her eyes to voice, she is following simple commands, she is moving her hands, she is able to department of mathematics chair with both hands, she is moving her feet. Generally patient is very weak. But does not appear to be in any acute distress, midline tracheostomy in place, incisions clean dry and intact, patient also received a PEG tube. Her tube feedings are on hold, she remains on Diflucan, she remains on Zosyn for empiric antibiotic coverage. All of patient's blood cultures BAL cultures and sputum cultures have remained negative to date. She's had no fever or chills. She is currently on assist control mode of ventilation with a rate of 25, tidal vital 350, FiO2 100%, and PEEP of 5. Prior to her procedure this morning patient was on the same ventilator settings with the exception of FiO2 which was at 40%, her morning blood gases were reviewed showing pO2 of 79, pCO2 41, pH is 7.50, this was done on 40% FiO2, currently patient is saturating at 100% on a heart percent FiO2 and PEEP of 5. Breathing comfortably, and her FiO2 was dropped down to 60% and -50%. Chest x-ray showing bilateral multifocal and confluent opacities greatest in the right lung no significant change compared to one day earlier. Patient has been off norepinephrine for 48 hours, to prevent is infusing at 30 mics per kilo per minute, 0.9 normal saline at a rate of 20 ML per hour, she is in sinus mechanism with a rate of 90-100 bpm, his labs have been reviewed with blood cell count is 7.5, hemoglobin is 9.4, platelet count was 386, sodium is 134, the rest of electrolytes and renal profile are unremarkable. On 05/30/2021 patient is seen in follow-up in the intensive care unit, she status post tracheostomy and PEG tube placement yesterday on 05/29/2021, she tolerated procedure very well, she is currently on pressure support of 10, FiO2 of 40%, CPAP 5, she tolerated it very well, this morning's blood gas has been reviewed, pO2 of 79, pCO2 of 50, and pH of 7.39. Chest x-ray yesterday showed bilateral multifocal and confluent opacities without significant change from the day earlier, no need for another chest x-ray today, we'll obtain follow-up chest x-ray for tomorrow. She is currently off the prevent, and sedation has been off since yesterday. She is on 0.9 normal saline at a rate of 20 ML per hour, she remains on a combination of antibiotics was Diflucan and Zosyn, all of her cultures including BAL cultures have remained negative, she has been stable overnight, she's been afebrile, no complaint of chest discomfort. No hemoptysis. Today's labs have been reviewed showing white blood cell count of 11.3, hemoglobin of 9.6, platelet count of 474, sodium is 135, the rest of electrolytes and renal profile are within normal limits, BUN is 8, creatinine 0.59. Patient is supposed to be restarted on tube feedings. She is awake and alert, in no acute distress, she's been hemodynamically stable, not requiring any vasopressor support, she is following all commands, seems to be in good spirits. She's had no acute events overnight. On 06/02/2021 patient seen in follow-up in the intensive care unit, she is awake and alert, in no acute distress, patient received a tracheostomy and PEG tube placement on 05/29/2021, she had since tolerated trach collar at 60%, she is breathing comfortably, she denies any acute distress, her chest x-ray today showing patchy and confluent bilateral airspace disease, right greater than left, with slight interval worsening. Vital signs have been stable overnight, on 60% trach collar her pulse ox is 96-100%. She is afebrile, hemodynamically she has remained stable. She is on 0.9 normal saline at a rate of 75 ML per hour, apparently her tube feedings have been placed on hold related to some high residuals. Patient remains on antibiotics in the form of Zosyn and fluconazole, all her cultures including BAL cultures remain negative thus far. Today's labs have been reviewed, white blood cell count is 9.1, hemoglobin is 8.9, sodium is 140, potassium is 3.4, the rest is actually some renal profile are unremarkable. LFTs are within normal limits, follow-up pro-calcitonin level is 0.42, slightly improved from the previous value of 0.48. On 06/09/2021 patient seen in follow-up on medical surgical floor, she is resting comfortably in bed, is currently on 60% trach collar, and her pulse ox is 100%, breathing very comfortably, lung sounds reveal a few scattered rhonchi, right greater than left. No complaints of chest discomfort, no hemoptysis, vital signs have been stable, she is awake and alert, following commands and, responding appropriately, denies any acute distress. Patient had a CT of the chest on 06/08/2021, showing multifocal pneumonia, no evidence of a large central pulmonary embolism, and moderate right and small left pleural effusions with adjacent atelectasis. Clinically patient has been stable, for cultures including blood, BAL, urine culture and sputum cultures have shown no growth. Patient has completed antibiotics, and currently she is off all antibiotics, she remains on nebulized rhonchi with diabetes with DuoNeb. Blood work from yesterday has been reviewed, her Lamictal, is improving, is down to 10.04, hemoglobin is 8.0, electrolytes and renal profile are unremarkable, for follow- up pro-calcitonin is negative at 0.11. PEG tube is in place, and patient is tolerating tube feeding she is receiving Vital AF at 50 ML per hour. On 06/10/2021 patient seen in follow-up on medical surgical floor. She is awake, in no acute distress, breathing comfortably, she is currently on 60% FiO2, her pulse ox is 95%, minimal secretions out of the tracheostomy. She is tolerating her tube feedings, she's had no acute events overnight, no fever or chills, minimal scattered rhonchi. Patient has completed her antibiotics. Vital signs have been stable. No altered mentation, no acute events overnight, she's been participating with therapy. She was accepted to inpatient rehab at the [facility]– [place]. Objective - Vital Signs Vital signs: Vital Signs Temp 98.9 F 06/10/21 09:17 Pulse 110 H 06/10/21 11:28 Resp 14 06/10/21 09:17 BP 107/73 06/10/21 09:17 Pulse Ox 95 06/10/21 09:17 Intake & Output 06/09/21 06/10/21 06/10/21 18:59 06:59 18:59 Intake Total 0 Output Total 3 Balance -3 Weight 46.1 kg Intake: Oral 0 Output: Urine 2 Stool 1 Other: Voiding Method Diaper Diaper Incontinent Incontinent # Voids 3 # Bowel Movements 1 1 - Exam GENERAL EXAM: Awake and alert, oriented 3 , 60% trach collar, 36-year-old frail looking white female, on 60% trach collar with a pulse ox of 96-100% comfortable in no apparent distress. HEAD: Normocephalic/atraumatic. EYES: Normal reaction of pupils, equal size. Conjunctiva pink, sclera white. NOSE: Clear with pink turbinates. MOUTH: She has ulcerations of her oral cavity THROAT: No erythema or exudates. NECK: No masses, no JVD, no thyroid enlargement, no adenopathy. Midline tracheostomy in place, on is on 60% trach collar, breathing comfortably patient is clean dry and intact CHEST: No chest wall deformity. Symmetrical expansion. LUNGS: diminished air entry with crackles, no wheeze, no rhonchi or dullness. CVS: Regular rate and rhythm, normal S1 and S2, no gallops, no murmurs, no rubs ABDOMEN: Soft, nontender. No hepatosplenomegaly, normal bowel sounds, no guarding or rigidity. PEG tube insertion site is clean dry and intact, patient is receiving tube feedings in the form of vital area at 50 ML per hour, tolerating tube feedings well. EXTREMITIES: No clubbing, no edema, no cyanosis, 2+ pulses and upper and lower extremities. MUSCULOSKELETAL: Muscle strength and tone normal. SPINE: No scoliosis or deformity SKIN: No rashes CENTRAL NERVOUS SYSTEM: Awake and alert, following command No focal deficits, tone is normal in all 4 extremities. - Labs CBC & Chem 7: 06/08/21 04:33 06/08/21 04:33 Labs: Abnormal Lab Results - Last 24 Hours (Table) 06/09/21 06/09/21 06/10/21 Range/Units 16:21 20:06 00:09 POC Glucose (mg/dL) 110 H 143 H 171 H (75-99) mg/dL 06/10/21 06/10/21 06/10/21 Range/Units 07:04 07:21 11:48 POC Glucose (mg/dL) 33 L 177 H 29 L (75-99) mg/dL 06/10/21 Range/Units 12:05 POC Glucose (mg/dL) 174 H (75-99) mg/dL Microbiology - Last 24 Hours (Table) 05/22/21 09:44 Acid Fast Bacilli Smear - Final Bronchial Washings - Right Acid Fast Bacilli Culture - Preliminary Assessment and Plan Plan: Assessment: #1. Acute hypoxic respiratory failure related to worsening and progression of pneumonia, and chest x-ray showing patchy consolidation involving the right midlung, right upper lobe and right lower lobe in addition to extensive consolidation of the left lung with possibly some cavitation. Patient is currently covered with meropenem and vancomycin, her antibiotics have been modified yesterday, initially covered with Zosyn, patient was doing well on Airvo on 05/21/2021, was clinically improving, but suffered acute respiratory arrest on 05/21/2021 and was intubated, patient was successfully weaned and extubated on 05/23/2021 however failed again and had to be reintubated later that evening on 05/23/2021. In view of multiple episodes of respiratory failure patient will be considered for tracheostomy and PEG tube placement for weaning. Patient is status post bronchoscopy with bronchoalveolar lavage on 05/23/2021, so far BAL cultures are all negative. Patient is status post tracheostomy and PEG tube placement on 05/29/2021, tolerating pressure support trials pressure- support of 10 and CPAP of 5 on 05/29/2021, and again today on 05/30/2021. Patient has been tolerating trach collar trials, currently on 60% trach collar satting almost 100% #2. Altered mental status secondary to hypoglycemia. Patient had recovered, and she was back to baseline neurologically. Currently lightly sedated, patient is still intubated, but patient is following all commands #3. History of diabetes, and recent episode of diabetic ketoacidosis, recovered. Levemir insulin has been discontinued and patient is currently covered with sliding scale NovoLog, her last episode of hypoglycemia was on 05/19/2021 with a blood sugar of 45. No recurrence of hypoglycemia since #4. History of syncopal episodes related to hypoglycemia #5. History of migraine cephalgia #6. History of diabetic neuropathy #7. Chronic constipation #8. Chronic low back pain #9. Tongue and oral pharyngeal candidiasis, with ulcerations #10. Previous history of MRSA infection in the laceration of the scalp #11. Chronic anemia with interval drop in hemoglobin down to 6.1 without evidence of any active GI bleeding, patient has received 2 units of packed red blood cells this admission Plan: No worsening dyspnea or hypoxia No fever or chills, breathing comfortably Wean FiO2 to maintain O2 saturations at 92-94% Patient has completed a course of antibiotics, no significant secretions out of the tracheostomy May trial speaking valve, and we'll ask respiratory to do that Make sure patient has a fenestrated Shiley tracheostomy All of her cultures including BAL cultures remain negative No fever or chills, no worsening cough or dyspnea She is tolerating tube feedings Discharge planning is in progress for discharge to inpatient rehab today Patient is stable for discharge to rehab from pulmonary perspective I performed a history & physical examination of the patient and discussed their management with my nurse practitioner, Dania Negron. I reviewed the nurse practitioner's note and agree with the documented findings and plan of care. L sada sounds are positive for dim breath sounds throughout the lung abbott. The findings and the impression was discussed with the patient. I attest to the documentation by the nurse practitioner. Time with Patient: Less than 30
--- NOTE | 2021-06-10 14:37 | P.PN ---
Progress Note - Text Progress Note Date: 06/10/21 Interval History: Patient was seen sitting upright in her chair beside her bed with her mother present in the room. The patient reports no significant changes in regards to her mood however it has been noted by herself as well as her mother to have a significant decrease in her skin picking. The patient continues to report that she has some difficulty with sleep but attributes this to the PEG tube being in place. The patient is however not endorsing any suicidal or homicidal ideation, intention, and/or plan. She is not reporting any auditory or visual hallucinations. She is not reporting any paranoia or other delusions. The patient has been adherent with her medications and is not endorsing a significant side effects at this time. Mental Status Exam: General Appearance: Patient appears to be stated age is alert, directable, and cooperative. Patient has poor dentition and has a noticeable lesion on her scalp which is now currently covered with a shower cap. PEG tube in place. Behavior: Patient is calmly seated without any agitated behavior. Eye contact is appropriate. Speech: Patient is unable to speak due to PEG tube placement. Mood/Affect: Mood is "so-so." Affect appears to be withdrawn but with increased range compared to before. Suicidality/Homicidality: Patient denies having any suicidal or homicidal ideation intent or plan. Perceptions: Patient denies any visual hallucinations and denies any auditory hallucinations Though content/process: There is no evidence of any delusional thought content and thought process is linear and goal-directed. Memory and concentration: AOX3, grossly intact for the purposes of this session Judgment and insight: Improving mildly Vital Signs Temp 98.9 F 06/10/21 09:17 Pulse 110 H 06/10/21 11:28 Resp 14 06/10/21 09:17 BP 107/73 06/10/21 09:17 Pulse Ox 95 06/10/21 09:17 Intake & Output 06/09/21 06/10/21 06/10/21 18:59 06:59 18:59 Intake Total 0 Output Total 3 Balance -3 Weight 46.1 kg Intake: Oral 0 Output: Urine 2 Stool 1 Other: Voiding Method Diaper Diaper Incontinent Incontinent # Voids 3 # Bowel Movements 1 1 Laboratory Results - Last 24 Hours 06/09/21 06/09/21 06/10/21 16:21 20:06 00:09 POC Glucose (mg/dL) 110 H 143 H 171 H POC [employer] Aide ID Tessa Adams Emma DianaGuillaume Coronavirus (PCR) 06/10/21 06/10/21 06/10/21 04:54 07:04 07:21 POC Glucose (mg/dL) 81 33 L 177 H POC [employer] Aide ID Lisandra Haro Sharay Davis, Sharay Coronavirus (PCR) 06/10/21 06/10/21 06/10/21 11:48 12:05 13:20 POC Glucose (mg/dL) 29 L 174 H POC Glu [employer] Aide ID Tessa Adams Sharay Coronavirus (PCR) Not Detected Assessment Adjustment disorder with mixed anxiety and depressed mood Excoriation disorder History of major depressive disorder Plan: -Continue your medical management. -This provider spent approximately 15-20 minutes providing the patient with cognitive behavioral therapy techniques and supportive and reflective listening -At this time patient DOES NOT meet criteria for inpatient psychiatric admission. -Would recommend the following medication changes/additions: Continue Restoril 15 mg by mouth at bedtime and its place to address acute adjustment disorder in order to aid with sleep and anxiety. We will likely begin taper next week if the patient continues to be present in the hospital. Continue Prozac 40 mg by mouth daily for depression/anxiety/excoriation disorder -Will continue to follow along
[2021-06-10 17:04] LABS: Glucose,Whole Blood 184 mg/dL (75-99)
[2021-06-10 20:18] LABS: Glucose,Whole Blood 204 mg/dL (75-99)
[2021-06-10] MEDS: ONDANSETRON 4 MG/2 ML VIAL IVP PRN (20:30)
[2021-06-10] MEDS: TEMAZEPAM 15 MG CAP PO SCH (20:30)
[2021-06-10] MEDS: MONTELUKAST 10 MG TAB PO SCH (20:30)
--- NOTE | 2021-06-10 23:43 | P.PN ---
Subjective Progress Note Date: 06/10/21 This is a 36-year-old female who was recently admitted with changes in mental status along with significant hypoglycemia and is being closely monitored. Patient continues on 100% BiPAP with continued dyspnea and pulmonary following closely. Patient also found to have bilateral pneumonia possible aspiration and also a fungal urinary tract infection. Patient continues in the ICU for close monitoring and infectious disease is also following. Patient continues on IV antibiotics in the form of meropenem along with fluconazole and vancomycin and will continue. Multiple family members at the bedside. Recommend repeat chest x-ray along with labs in the morning. White blood Count elevated at 19.1. Potassium is 3.4 and magnesium 1.6 and will replace per protocol. 05/21/2021 She is seen in follow-up continues to be in the ICU being closely monitored. Patient was maintained on BiPAP and attempting airvo to allow for oral intake. Only at the bedside with multiple questions and concerns answered to the best of our ability. Patient's mentation is improved and answering questions and responding to commands appropriately. Chest x-ray today shows bilateral diffuse airspace disease with small effusion, stable with no pneumothorax noted. Infectious disease following an patient is continued on IV fluconazole along with meropenem. Blood cultures remain negative. Blood count is mildly elevated at 20.2. Patient is afebrile. Recommend repeat labs and chest x-ray in the a.m. She denies any chest pains or palpitations at this time. Patient tolerating oral intake and recommend strict aspiration precautions of head of the bed elevated 30-45 at all times and supervision with meals. 05/22/2021 Patient is seen in follow up and being closely monitored in the ICU with multiple medical consultations following. Patient was an A team this morning for acute respiratory arrest that was witnessed by nursing staff at the bedside and was changing the patient after a bowel movement and became apneic and code blue was initiated. Patient did not lose pulse but was intubated and placed on sedation. Chest xray showed moderately severe pulmonary edema without change compared to yesterday. Patient was given a dose of lasix. Patient is on some pressor support as well. Pulmonary following and patient underwent bronchoscopy with fluid analysis sent and pending. Patient is continued on IV merrem and vancomycin with ID following closely. Await finalized cultures. WBC elevated as well at 26.8. 05/23/2021 Patient is seen and evaluated this morning and continues in critical condition in the ICU. Mother at the bedside and patient was extubated this morning. Patient is currently resting on 2L of02 via NC with oxygen saturation above 90%. Patient is extremely lethargic but arousable. Chest xray shows persistent but improving airspace disease, right greater than left. Mother is at the bedside. May Patient is seen and evaluated today in follow-up continues to be in the ICU being closely monitored. Patient continues on mechanical vent with sedation and attempts at weaning continue. Pulmonary and ID following closely. Patient continues with FI02 of 60%. Patient also continues on IV fluconazole and Zosyn and will continue. Chest xray today shows bilateral multifocal and confluent opacities redemonstrated consistent with covid 19 infection and or ARDS is redemonstrated with no significant change from yesterday. 05/27/2021 Patient is seen and evaluated this morning and continues on mechanical ventilation and lightly sedated on propofol although patient is awake and following commands although fatigues easily. General surgery consulted for PEG and trach placement for pulmonary automobile repossessor recommendations. Infectious disease following an patient is maintained on fluconazole along with IV Zosyn and will continue. Patient continues with multiple episodes of loose stool with fecal management system and C. diff testing is ordered. Potassium mildly low at 3.4 and will replace per protocol. Magnesium is 2.2 today. Chest x-ray today shows patchy bilateral lung infiltrates that are stable. 05/28/2021 Patient is seen in follow-up in the ICU continues to be closely monitored with multiple medical consultations following. Plan for today was possible peg and trach placement although surgery extremely busy and will likely occur tomorrow. Patient continues on IV abx with ID following closely. Patient continues on mechanical vent with an FI02 of 50%. Minimally sedated. 05/29/2021 Patient is seen this morning status post PEG tube and tracheostomy placement and continues on mechanical vent with an FiO2 of 50% and PEEP is 5. Mother at the bedside with questions and concerns answered. PEG tube on hold currently for 24 hours and awaiting clearance from surgery to start tube feedings. Chest x-ray today shows bilateral multifocal and confluent opacification greatest in the right lung are redemonstrated consistent with COVID-19 and/or arts with no significant change from previous day. Patient is awake and nodding yes and no appropriately. 05/30/2021 Patient is seen today currently sitting up in the chair and recently placed on trach collar as she is status post tracheostomy and PEG tube placement yesterday. Tube feedings were started on the PEG tube although patient became nauseated and currently on hold and will continue to monitor. Patient continues with loose stool and does have fecal management system that is intact. Recommen d to keep the rectal tubing as patient experiences more frequent episodes of loose stool with feedings. Trach collar is 50% FiO2. Patient continues on IV zosyn with ID following. 05/31/2021 Patient evaluated today in the ICU resting in bed. [place] catheter and fecal management system in place. Oxygenation maintained on trach collar with Fi02 of 50% and oxygen saturation of 96%. Patient does present with congested cough. She is nauseas today and feels like she wants to throw up. Nurse reports minimal residual volumes with feedings. Tube feedings were placed on hold, and she will be placed to suction via PEG tube. Concerns for aspiration. She is getting IV zofran and IV protonix. Repeat chest xray today shows slight interval worsening of multifocal airspace opacities right greater than left. Labs today show WBC 15.2, hgb 9.2, platelet count 533, sodium 137, potassium 4.2, glucose in the 180s. Patient with low grade fever 99.3, heart rate 108, respirations 17, blood pressure 116/73, 96% on trach collar. All cultures negative. Continues on IV Zosyn and IV fluconazole. 06/01/2021 Patient evaluated today in bed with HOB around 30. Per RN she was up in the chair yesterday. Indwelling catheter and Fecal management system in place. Patient is on trach colloar with FiO2 50% with oxygen saturation of 97%. Blood pressures are marginal at 98/76, respirations 14, heart rate 105, afebrile. Patient to feedings were placed on hold yesterday with PEG tube to suction. She still complains of ongoing nausea which is not improved. She is no longer dry heaving on my assessment. Patient is in a negative fluid balance. We will start patient's IV hydration with normal saline at 75 mL per hour. She continues on IV Zofran. She is also on IV Tylenol, IV fluconazole, IV Zosyn. Chest x-ray shows correlation for pneumonia. Blood fungal culture is currently pending. 06/02/2021 Patient is seen and evaluated in follow up this morning and continues to be in the ICU being closely monitored. Patient is currently up in the chair and on trach collar at 60% although per nursing staff being weaned down to 40%. Patient persists with nausea and having high residuals and tube feeds on hold. Reglan scheduled being added and will resume tube feeds once nausea improves and start slowly on tube feeds. Chest xray today shows patchy and confluent bilateral airspace disease right greater than left that shows slight interval worsening. Patient remains on IV zosyn and fluconazole with ID following as well. 06/03/2021 Patient is seen in follow-up this morning lethargic although arousable and continues on trach collar and tolerating well at 60% FiO2. Currently being titrated down to 40% and oxygen saturations remained above 95%. Patient is afebrile and no reports of worsening shortness of breath or chest pain. Chest x-ray today shows stable portable chest with diffuse bilateral patchy infiltrates persist and unchanged and pleural effusion also unchanged. Multiple medical consultations including general surgery, infectious disease and pulmonary automobile repossessor following. Family is now agreeable to [facility] for some rehab for strength and mobility and social work following and working on accepting facility. Patient continues on antifungal and is off IV antibiotics with infectious disease following closely. 06/04/2021 Patient is seen this morning in follow-up continues on a trach collar with an FiO2 of 40% and tolerating well. continues with secretion and suctioning. Patient continues to be withdrawn and does have an extensive history of depression and is frustrated with prolonged hospitalization and misses her children. No new chest xray today or labs and will repeat in the am. Psychiatry consulted to evaluate the possible need for medication adjustments and appreciat e input and recommendations. social work following and looking on accepting facilities. Patient may likely need LTAC. Patient also continues to pick nervously at scalp of which has been ongoing but worsening since admission. Will add bacitracin and encouraged the patient to avoid picking. 06/05/2021 Patient is seen today continues to be in the ICU maintaining oxygen saturations are trach collar with an FiO2 of 40% chest x-ray continues to show bilateral airspace disease right greater than left without significant change. Multiple medical consultations following including psychiatry and has made some adjustments to medications and added sleep aid. Patient continues to pick at her scalp and is worsening although does not appear infected. Wound care consulted and appreciate input and recommendations. Patient currently awaiting a bed out of the ICU and SNF acceptance that can manage a trach collar. 06/06/2021 Patient is seen this morning and is on the med/surg floor and is tolerating trach collar at 40%. Pulmonary, psychiatry, and ID following. Patient continues to be weak and is working with physical therapy daily. Patient currently has a cap over her scalp which appears to be somewhat helping with her excessive picking of the wound. Continue local wound care. Patient appears in better spirits today. Spoke with mother today at the bedside about finding a suitable SNF or facility that has respiratory therapy on staff to assist with trach care and frequent suctioning that she has been requiring. Patient is currently off antibiotics and afebrile. No new labs from today and will order repeat labs along with a chest xray. Continue close monitoring of blood sugars as well and current medication regimen. 06/09/2021 Patient is seen this morning in follow-up continues to be on trach collar at 60%. Patient tolerating tube feedings although having some intermittent periods of nausea and will continue with Reglan and/or Zofran and continue tube feedings. Patient is working with physical therapy daily and have placed a consult for [facility] inpatient rehab with Dr. Shipman reactive social work following as well working on discharge planning. Pulmonary automobile repossessor foll owing as well and patient is stable from their standpoint for discharge to inpatient rehab facility. Patient is weak and has had prolonged hospitalization and would greatly benefit from an inpatient rehab with close monitoring of multiple medical issues as patient is considered critically ill. 06/10/2021 Patient is seen and evaluated today and continues on trach collar with an FiO2 of 60% and flow rate is 10 and maintaining oxygen saturations of 95%. Per nursing staff patient had some reported episodes of hypoglycemia although patient was asymptomatic and denied any feelings of blood sugar being low and was as low as 29-33 and given an amp of dextrose. Patient will be started on gentle IV hydration with dextrose and will continue with sliding scale and Accu- Cheks before meals and at bedtime and as needed and will discontinue long-acting for now and closely monitor. Patient also having some diffuse abdominal pain and intermittent nausea with no reports of vomiting and tube feeds on hold and will be resumed per protocol. Review of systems: Constitutional: no reports of fatigue, no reports of fever, or chills Cardiovascular: No reports of chest pain or palpitations Respiratory: No reports of worsening shortness of breath or cough status post tracheostomy and trach collar, frequent suctioning GI: reports of intermittent nausea, vomiting, reports continued loose stool with slight improvement. Having abdominal pain today : No reports of dysuria or retention Neurovascular: Reports of generalized weakness All medications have been reviewed Active Medications Acetaminophen (Acetaminophen Tab 325 Mg Tab) 650 mg PO Q6HR PRN PRN Reason: Fever and/ or Mild Pain Last Admin: 05/23/21 04:35 Dose: 650 mg Documented by: Albuterol/Ipratropium (Ipratropium-Albuterol 3 Ml Neb) 3 ml INHALATION RT-TID [facility] Last Admin: 06/10/21 11:13 Dose: 3 ml Documented by: Cholecalciferol (Cholecalciferol 25 Mcg (1000 Iu) Tablet) 50 mcg PO DAILY [facility] Last Admin: 06/10/21 09:25 Dose: 50 mcg Documented by: Cholestyramine Resin (Cholestyramine (With Sugar) 4 Gm Packet) 4 gm PO BID@1000,1800 [facility] Last Admin: 06/10/21 09:25 Dose: 4 gm Documented by: Fluoxetine HCl (Fluoxetine Hcl 20 Mg Cap) 40 mg PO DAILY [facility] Last Admin: 06/10/21 09:25 Dose: 40 mg Documented by: Folic Acid (Folic Acid 1 Mg Tab) 1 mg PO DAILY@1200 [facility] Last Admin: 06/10/21 12:01 Dose: 1 mg Documented by: Hydromorphone HCl (Hydromorphone 0.5 Mg/0.5 Ml Syringe) 0.5 mg IVP Q3HR PRN PRN Reason: Severe Pain Last Admin: 06/10/21 14:56 Dose: 0.5 mg Documented by: Dextrose/Sodium Chloride (Dextrose 5%-Ns Iv Soln) 1,000 mls @ 75 mls/hr IV .[id number] [facility] Last Admin: 06/10/21 13:16 Dose: 75 mls/hr Documented by: Insulin Aspart (Insulin Aspart (Novolog) 100 Unit/Ml Vial) 0 unit SQ Q4H [facility]; Protocol Last Admin: 06/10/21 12:00 Dose: Not Given Documented by: Metoclopramide HCl (Metoclopramide 5 Mg/Ml 2 Ml Vial) 5 mg IVP Q6HR PRN PRN Reason: Nausea And Vomiting Last Admin: 06/02/21 15:30 Dose: 5 mg Documented by: Miscellaneous Information (Magnesium Replacement Protocol 1 Each Misc) 1 each MISCELLANE DAILY PRN; Protocol PRN Reason: Per Protocol Miscellaneous Information (Potassium Replacement Protocol 1 Each Misc) 1 each MISCELLANE DAILY PRN; Protocol PRN Reason: Per Protocol Montelukast Sodium (Montelukast 10 Mg Tab) 10 mg PO [facility] Last Admin: 06/09/21 21:59 Dose: 10 mg Documented by: Multivitamins (Multivitamins, Thera 1 Each Tab) 1 each PO DAILY@1200 [facility] Last Admin: 06/10/21 12:01 Dose: 1 each Documented by: Ondansetron HCl (Ondansetron 4 Mg/2 Ml Vial) 4 mg IVP Q6HR PRN PRN Reason: Nausea And Vomiting Last Admin: 06/08/21 09:31 Dose: 4 mg Documented by: Pantoprazole Sodium (Pantoprazole 40 Mg/10 Ml Vial) 40 mg IVP DAILY [facility] Last Admin: 06/10/21 09:24 Dose: 40 mg Documented by: Pregabalin (Pregabalin 75 Mg Cap) 75 mg PO TID [facility] Last Admin: 06/10/21 09:25 Dose: 75 mg Documented by: Sumatriptan Succinate (Sumatriptan Succinate 50 Mg Tab) 100 mg PO DAILY PRN PRN Reason: Migraine Headache Temazepam (Temazepam 15 Mg Cap) 15 mg PO [facility] Last Admin: 06/09/21 21:59 Dose: 15 mg Documented by: Thiamine HCl (Thiamine 100 Mg Tab) 100 mg PO BID-W/MEALS [facility] Last Admin: 06/10/21 07:33 Dose: 100 mg Documented by: Zinc Sulfate (Zinc Sulfate 220 Mg Cap) 220 mg PO DAILY [facility] Last Admin: 06/10/21 09:25 Dose: 220 mg Documented by: Physical Exam: Gen: This is a 36-year-old female who is awake, alert and oriented x3. Status post tracheostomy placement, thin built, cachectic. on 60% FiO2 trach collar HEENT: Head is atraumatic, normocephalic. Pupils equal, round. Sclerae is anicteric. oral mucosa moist NECK: Supple. No JVD. No lymphadenopathy. No thyromegaly. tracheostomy and collar noted LUNGS: Breath sounds diminished with scattered rhonchi noted. No intercostal retractions. HEART: S1, S2 are muffled ABDOMEN: Soft. Bowel sounds are present. No masses. No tenderness. peg tube not ed EXTREMITIES: No pedal edema. No calf tenderness. NEUROLOGICAL: Patient is awake, alert and oriented x3. Nodding yes and no to questions and commands appropriately. 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 Hold long acting for now and continue sliding scale Severe hypokalemia improved Severe hyponatremia, improved Fungal urinary tract infection, treated, ID following Severe protein calorie malnutrition with a body mass index of 19.2 diabetes mellitus type I, uncontrolled with hypoglycemia, improved Stage II pressure injury right upper arm with stage III Coccyx documented by nurse Hypoalbuminemia Anemia of unknown etiology Anxiety, depression Gait dysfunction Full code Plan: Recommend to continue with current medications and follow along closely with multiple medical consultations. Infectious disease and pulmonary following closely and patient remains on FI02 is 60% trach collar and tolerating well. Tolerating tube feedings and patient continues with loose stool. Questran as well. Recommend to keep the bed elevated 30-45 at all times and maintain aspiration precautions. Patient had some mild nausea and abdominal tenderness and tube feeding held briefly per protocol and slowly resumed with no further episodes. Blood cultures and BAL cultures remain negative. ID following and has been off IV antibiotics. Patient had a few readings today of hypoglycemia and will add d5/.9 NS and hold long acting for now and continue sliding scale. Recommend to continue to monitor blood sugars closely. social work following and looking for accepting facilities. Patient was accepted at [facility] inpatient rehab with Dr. Shipman although requiring peer to peer review with insurance and was denied. She has had prolonged hospitalization and has been working with physical therapy daily and will greatly benefit given multiple medical issues and complex issues at an inpatient rehab facility. Continue local wound care to the scalp with frequent reminders to avoid picking at the scalp. Will continue to monitor closely. Repeat am labs and xray ordered. Guarded prognosis. Objective - Vital Signs Vital signs: Vital Signs Temp 98.2 F 06/10/21 08:00 Pulse 115 H 06/10/21 08:44 Resp 22 06/10/21 08:44 BP 111/75 06/10/21 08:00 Pulse Ox 100 06/10/21 08:34 Intake & Output 06/09/21 06/10/21 06/10/21 18:59 06:59 18:59 Intake Total 0 Output Total 3 Balance -3 Intake: Oral 0 Output: Urine 2 Stool 1 Other: Voiding Method Diaper Incontinent # Voids 3 # Bowel Movements 1 1 - Labs CBC & Chem 7: 06/08/21 04:33 06/08/21 04:33 Labs: Abnormal Lab Results - Last 24 Hours (Table) 06/09/21 06/09/21 06/09/21 Range/Units 03:12 11:41 12:32 POC Glucose (mg/dL) 61 L 118 H (75-99) mg/dL Procalcitonin 0.11 H (0.02-0.09) ng/mL 06/09/21 06/09/21 06/10/21 Range/Units 16:21 20:06 00:09 POC Glucose (mg/dL) 110 H 143 H 171 H (75-99) mg/dL Procalcitonin (0.02-0.09) ng/mL 06/10/21 06/10/21 Range/Units 07:04 07:21 POC Glucose (mg/dL) 33 L 177 H (75-99) mg/dL Procalcitonin (0.02-0.09) ng/mL Microbiology - Last 24 Hours (Table) 05/22/21 09:44 Acid Fast Bacilli Smear - Final Bronchial Washings - Right Acid Fast Bacilli Culture - Preliminary
[2021-06-11 00:08] LABS: Glucose,Whole Blood 353 mg/dL (75-99)
[2021-06-11] MEDS: INSULIN ASPART (NovoLOG) 100 UNIT/ML VIAL SQ SCH ×6 (00:09→20:06)
[2021-06-11] MEDS: HYDROmorphone 0.5 MG/0.5 ML SYRINGE IVP PRN ×7 (01:29→20:05)
[2021-06-11] MEDS: DEXTROSE 5%-0.9% NACL 1,000 ML IV SCH ×2 (02:54→14:05)
[2021-06-11 04:25] LABS: Glucose,Whole Blood 237 mg/dL (75-99)
[2021-06-11 05:22] LABS: Anisocytosis Slight; Basophils # (A) 0.1 k/uL (0-0.2); Basophils % (A) 1 %; Eosinophils # (A) 0.1 k/uL (0-0.7); Eosinophils % (A) 1 %; HCT 25.8 % (34.0-46.0); HGB 7.8 gm/dL (11.4-16.0); Hypochromasia Marked; Lymphocytes # (A) 1.1 k/uL (1.0-4.8); Lymphocytes % (A) 14 %; MCH 26.9 pg (25.0-35.0); MCHC 30.1 g/dL (31.0-37.0); MCV 89.4 fL (80.0-100.0); Mean Platelet Volume 8.1; Monocytes # (A) 0.6 k/uL (0-1.0); Monocytes % (A) 8 %; Neutrophils % (A) 75 %; Platelet Count 454 k/uL (150-450); RBC 2.88 m/uL (3.80-5.40); RDW 16.1 % (11.5-15.5); WBC 7.9 k/uL (3.8-10.6)
[2021-06-11 05:34] LABS: African American GFR (CKD) >90 (>60 ml/min/1.73 sqM); Anion Gap 3 mmol/L; Blood Urea Nitrogen 22 mg/dL (7-17); Calcium 8.1 mg/dL (8.4-10.2); Carbon Dioxide 31 mmol/L (22-30); Chloride 104 mmol/L (98-107); Glucose 242 mg/dL (74-99); Non-African American GFR(CKD) >90 (>60 ml/min/1.73 sqM); Potassium 4.1 mmol/L (3.5-5.1); Sodium 138 mmol/L (137-145)
[2021-06-11 07:33] LABS: Glucose,Whole Blood 184 mg/dL (75-99)
[2021-06-11] MEDS: PANTOPRAZOLE 40 MG/10 ML VIAL IVP SCH (07:52)
[2021-06-11] MEDS: ZINC SULFATE 220 MG CAP PO SCH (07:52)
[2021-06-11] MEDS: CHOLECALCIFEROL 25 MCG (1000 IU) TABLET PO SCH ×2 (07:52→07:53)
[2021-06-11] MEDS: FLUoxetine HCL 20 MG CAP PO SCH (07:53)
[2021-06-11] MEDS: MULTIVITAMINS, THERA 1 EACH TAB PO SCH (07:53)
[2021-06-11] MEDS: FOLIC ACID 1 MG TAB PO SCH (07:53)
[2021-06-11] MEDS: PREGABALIN 75 MG CAP PO SCH ×3 (07:53→20:06)
[2021-06-11] MEDS: THIAMINE 100 MG TAB PO SCH ×2 (07:54→16:59)
--- NOTE | 2021-06-11 08:09 | XR ---
EXAMINATION TYPE: XR chest 1V portable DATE OF EXAM: 06/11/2021 Comparison: 06/07/2021 Clinical History: 36-year-old female shortness of breath Findings: Tracheostomy cannula. Right PICC tip within the right atrium. Heart upper limits of normal in size. D iffuse interstitial opacities and patchy confluent opacities throughout the right lung. These opaciti es have become less confluent from prior exam. No pleural effusion. PEG tube noted. Impression: Diffuse interstitial changes are similar. Airspace disease throughout the right lung has shown some i mprovement and is now less confluent.
[2021-06-11] MEDS: IPRATROPIUM-ALBUTEROL 3 ML NEB INHALATION SCH ×3 (08:47→20:46)
[2021-06-11] MEDS: ONDANSETRON 4 MG/2 ML VIAL IVP PRN (11:01)
[2021-06-11 11:53] LABS: Glucose,Whole Blood 264 mg/dL (75-99)
[2021-06-11] MEDS: CHOLESTYRAMINE (WITH SUGAR) 4 GM PACKET PO SCH ×2 (12:02→17:19)
[2021-06-11] MEDS: METOCLOPRAMIDE 5 MG/ML 2 ML VIAL IVP PRN (12:53)
--- NOTE | 2021-06-11 13:03 | P.PN ---
Subjective Progress Note Date: 06/11/21 CHIEF COMPLAINT: Hypoglycemia HISTORY OF PRESENT ILLNESS: Patient status post tracheostomy and PEG tube p lacement on 05/29/2021. Patient is on a medical floor. Patient currently had 2 feeds at 50 mL per hour. She did have another high residual this morning of 200. She reports minimal abdominal pain. She is having diarrhea. Dietitian is following and adjusting tube feeds. No vomiting reported. PHYSICAL EXAM: VITAL SIGNS: Reviewed. GENERAL: no acute distress. HEENT: No sclera icterus. Extraocular movements grossly intact. Moist buccal mucosa. Head is atraumatic, normocephalic. Trach site clean dry and intact ABDOMEN: Soft. Nondistended. Minimal tenderness noted around PEG tube site PEG tube site clean dry and intact ASSESSMENT: 1. Acute hypoxic respiratory failure secondary to pneumonia. Patient was extubated and required to be reintubated on 05/23/2021. Patient status post tracheostomy placement 2. Severe protein calorie malnutrition. Patient status post PEG tube placement 3. Possible aspiration pneumonia PLAN: -tube feeds per dietitian recommendations -Continue to monitor -Continue supportive care -Continue antiemetics as needed -Antibiotics per ID -Social work addressing discharge planning at subacute rehab Physician Mattress Stuffer note has been reviewed by physician. Signing provider agrees with the documented findings, assessment, and plan of care. Objective - Vital Signs Vital signs: Vital Signs Temp 99 F 06/11/21 07:09 Pulse 108 H 06/11/21 12:15 Resp 16 06/11/21 07:09 BP 106/72 06/11/21 07:09 Pulse Ox 92 L 06/11/21 07:09 Intake & Output 06/10/21 06/11/21 06/11/21 18:59 06:59 18:59 Output Total 4 Balance -4 Weight 46.1 kg 38.5 kg Output: Stool 4 Other: Voiding Method Diaper Diaper Incontinent Incontinent # Voids 2 # Bowel Movements 2 - Labs CBC & Chem 7: 06/11/21 03:28 06/11/21 03:28 Labs: Abnormal Lab Results - Last 24 Hours (Table) 06/10/21 06/10/21 06/11/21 Range/Units 17:03 20:16 00:05 RBC (3.80-5.40) m/uL Hgb (11.4-16.0) gm/dL Hct (34.0-46.0) % MCHC (31.0-37.0) g/dL RDW (11.5-15.5) % Plt Count (150-450) k/uL Carbon Dioxide (22-30) mmol/L BUN (7-17) mg/dL Creatinine (0.52-1.04) mg/dL Glucose (74-99) mg/dL POC Glucose (mg/dL) 184 H 204 H 353 H (75-99) mg/dL Calcium (8.4-10.2) mg/dL 06/11/21 06/11/21 06/11/21 Range/Units 03:28 03:28 04:23 RBC 2.88 L (3.80-5.40) m/uL Hgb 7.8 L (11.4-16.0) gm/dL Hct 25.8 L (34.0-46.0) % MCHC 30.1 L (31.0-37.0) g/dL RDW 16.1 H (11.5-15.5) % Plt Count 454 H (150-450) k/uL Carbon Dioxide 31 H (22-30) mmol/L BUN 22 H (7-17) mg/dL Creatinine 0.32 L (0.52-1.04) mg/dL Glucose 242 H (74-99) mg/dL POC Glucose (mg/dL) 237 H (75-99) mg/dL Calcium 8.1 L (8.4-10.2) mg/dL 06/11/21 06/11/21 Range/Units 07:31 11:52 RBC (3.80-5.40) m/uL Hgb (11.4-16.0) gm/dL Hct (34.0-46.0) % MCHC (31.0-37.0) g/dL RDW (11.5-15.5) % Plt Count (150-450) k/uL Carbon Dioxide (22-30) mmol/L BUN (7-17) mg/dL Creatinine (0.52-1.04) mg/dL Glucose (74-99) mg/dL POC Glucose (mg/dL) 184 H 264 H (75-99) mg/dL Calcium (8.4-10.2) mg/dL
--- NOTE | 2021-06-11 13:33 | US ---
EXAMINATION TYPE: US chest DATE OF EXAM: 06/08/2021 COMPARISON: NONE CLINICAL HISTORY: Pleural effusions, right greater than left. TECHNIQUE: Targeted ultrasound of the posterior lower EXAM MEASUREMENTS: Right Pleural Effusion pocket size: 3.5 cm Right skin surface to fluid distance: 1.6 cm Lung measured in pocket at 2.3cm, this is why it was not marked. Left Pleural Effusion pocket size: 1.4 cm Left skin surface to fluid distance: 1.3 cm Right side NOT marked for possible thoracentesis outside the dept. Left side NOT marked for possible thoracentesis outside the dept. Pulmonologists are able to review the images in the patient?s EMR. IMPRESSIONS: Bilateral pleural effusions are demonstrated.
--- NOTE | 2021-06-11 14:05 | P.PN ---
Subjective Progress Note Date: 06/11/21 This is a 36-year-old female who was recently admitted with changes in mental status along with significant hypoglycemia and is being closely monitored. Patient continues on 100% BiPAP with continued dyspnea and pulmonary following closely. Patient also found to have bilateral pneumonia possible aspiration and also a fungal urinary tract infection. Patient continues in the ICU for close monitoring and infectious disease is also following. Patient continues on IV antibiotics in the form of meropenem along with fluconazole and vancomycin and will continue. Multiple family members at the bedside. Recommend repeat chest x-ray along with labs in the morning. White blood Count elevated at 19.1. Potassium is 3.4 and magnesium 1.6 and will replace per protocol. 05/21/2021 She is seen in follow-up continues to be in the ICU being closely monitored. Patient was maintained on BiPAP and attempting airvo to allow for oral intake. Only at the bedside with multiple questions and concerns answered to the best of our ability. Patient's mentation is improved and answering questions and responding to commands appropriately. Chest x-ray today shows bilateral diffuse airspace disease with small effusion, stable with no pneumothorax noted. Infectious disease following an patient is continued on IV fluconazole along with meropenem. Blood cultures remain negative. Blood count is mildly elevated at 20.2. Patient is afebrile. Recommend repeat labs and chest x-ray in the a.m. She denies any chest pains or palpitations at this time. Patient tolerating oral intake and recommend strict aspiration precautions of head of the bed elevated 30-45 at all times and supervision with meals. 05/22/2021 Patient is seen in follow up and being closely monitored in the ICU with multiple medical consultations following. Patient was an A team this morning for acute respiratory arrest that was witnessed by nursing staff at the bedside and was changing the patient after a bowel movement and became apneic and code blue was initiated. Patient did not lose pulse but was intubated and placed on sedation. Chest xray showed moderately severe pulmonary edema without change compared to yesterday. Patient was given a dose of lasix. Patient is on some pressor support as well. Pulmonary following and patient underwent bronchoscopy with fluid analysis sent and pending. Patient is continued on IV merrem and vancomycin with ID following closely. Await finalized cultures. WBC elevated as well at 26.8. 05/23/2021 Patient is seen and evaluated this morning and continues in critical condition in the ICU. Mother at the bedside and patient was extubated this morning. Patient is currently resting on 2L of02 via NC with oxygen saturation above 90%. Patient is extremely lethargic but arousable. Chest xray shows persistent but improving airspace disease, right greater than left. Mother is at the bedside. May Patient is seen and evaluated today in follow-up continues to be in the ICU being closely monitored. Patient continues on mechanical vent with sedation and attempts at weaning continue. Pulmonary and ID following closely. Patient continues with FI02 of 60%. Patient also continues on IV fluconazole and Zosyn and will continue. Chest xray today shows bilateral multifocal and confluent opacities redemonstrated consistent with covid 19 infection and or ARDS is redemonstrated with no significant change from yesterday. 05/27/2021 Patient is seen and evaluated this morning and continues on mechanical ventilation and lightly sedated on propofol although patient is awake and following commands although fatigues easily. General surgery consulted for PEG and trach placement for pulmonary bar machine operator production recommendations. Infectious disease following an patient is maintained on fluconazole along with IV Zosyn and will continue. Patient continues with multiple episodes of loose stool with fecal management system and C. diff testing is ordered. Potassium mildly low at 3.4 and will replace per protocol. Magnesium is 2.2 today. Chest x-ray today shows patchy bilateral lung infiltrates that are stable. 05/28/2021 Patient is seen in follow-up in the ICU continues to be closely monitored with multiple medical consultations following. Plan for today was possible peg and trach placement although surgery extremely busy and will likely occur tomorrow. Patient continues on IV abx with ID following closely. Patient continues on mechanical vent with an FI02 of 50%. Minimally sedated. 05/29/2021 Patient is seen this morning status post PEG tube and tracheostomy placement and continues on mechanical vent with an FiO2 of 50% and PEEP is 5. Mother at the bedside with questions and concerns answered. PEG tube on hold currently for 24 hours and awaiting clearance from surgery to start tube feedings. Chest x-ray today shows bilateral multifocal and confluent opacification greatest in the right lung are redemonstrated consistent with COVID-19 and/or arts with no significant change from previous day. Patient is awake and nodding yes and no appropriately. 05/30/2021 Patient is seen today currently sitting up in the chair and recently placed on trach collar as she is status post tracheostomy and PEG tube placement yesterday. Tube feedings were started on the PEG tube although patient became nauseated and currently on hold and will continue to monitor. Patient continues with loose stool and does have fecal management system that is intact. Recommen d to keep the rectal tubing as patient experiences more frequent episodes of loose stool with feedings. Trach collar is 50% FiO2. Patient continues on IV zosyn with ID following. 05/31/2021 Patient evaluated today in the ICU resting in bed. [place] catheter and fecal management system in place. Oxygenation maintained on trach collar with Fi02 of 50% and oxygen saturation of 96%. Patient does present with congested cough. She is nauseas today and feels like she wants to throw up. Nurse reports minimal residual volumes with feedings. Tube feedings were placed on hold, and she will be placed to suction via PEG tube. Concerns for aspiration. She is getting IV zofran and IV protonix. Repeat chest xray today shows slight interval worsening of multifocal airspace opacities right greater than left. Labs today show WBC 15.2, hgb 9.2, platelet count 533, sodium 137, potassium 4.2, glucose in the 180s. Patient with low grade fever 99.3, heart rate 108, respirations 17, blood pressure 116/73, 96% on trach collar. All cultures negative. Continues on IV Zosyn and IV fluconazole. 06/01/2021 Patient evaluated today in bed with HOB around 30. Per RN she was up in the chair yesterday. Indwelling catheter and Fecal management system in place. Patient is on trach colloar with FiO2 50% with oxygen saturation of 97%. Blood pressures are marginal at 98/76, respirations 14, heart rate 105, afebrile. Patient to feedings were placed on hold yesterday with PEG tube to suction. She still complains of ongoing nausea which is not improved. She is no longer dry heaving on my assessment. Patient is in a negative fluid balance. We will start patient's IV hydration with normal saline at 75 mL per hour. She continues on IV Zofran. She is also on IV Tylenol, IV fluconazole, IV Zosyn. Chest x-ray shows correlation for pneumonia. Blood fungal culture is currently pending. 06/02/2021 Patient is seen and evaluated in follow up this morning and continues to be in the ICU being closely monitored. Patient is currently up in the chair and on trach collar at 60% although per nursing staff being weaned down to 40%. Patient persists with nausea and having high residuals and tube feeds on hold. Reglan scheduled being added and will resume tube feeds once nausea improves and start slowly on tube feeds. Chest xray today shows patchy and confluent bilateral airspace disease right greater than left that shows slight interval worsening. Patient remains on IV zosyn and fluconazole with ID following as well. 06/03/2021 Patient is seen in follow-up this morning lethargic although arousable and continues on trach collar and tolerating well at 60% FiO2. Currently being titrated down to 40% and oxygen saturations remained above 95%. Patient is afebrile and no reports of worsening shortness of breath or chest pain. Chest x-ray today shows stable portable chest with diffuse bilateral patchy infiltrates persist and unchanged and pleural effusion also unchanged. Multiple medical consultations including general surgery, infectious disease and pulmonary bar machine operator production following. Family is now agreeable to [facility] for some rehab for strength and mobility and social work following and working on accepting facility. Patient continues on antifungal and is off IV antibiotics with infectious disease following closely. 06/04/2021 Patient is seen this morning in follow-up continues on a trach collar with an FiO2 of 40% and tolerating well. continues with secretion and suctioning. Patient continues to be withdrawn and does have an extensive history of depression and is frustrated with prolonged hospitalization and misses her children. No new chest xray today or labs and will repeat in the am. Psychiatry consulted to evaluate the possible need for medication adjustments and appreciat e input and recommendations. social work following and looking on accepting facilities. Patient may likely need LTAC. Patient also continues to pick nervously at scalp of which has been ongoing but worsening since admission. Will add bacitracin and encouraged the patient to avoid picking. 06/05/2021 Patient is seen today continues to be in the ICU maintaining oxygen saturations are trach collar with an FiO2 of 40% chest x-ray continues to show bilateral airspace disease right greater than left without significant change. Multiple medical consultations following including psychiatry and has made some adjustments to medications and added sleep aid. Patient continues to pick at her scalp and is worsening although does not appear infected. Wound care consulted and appreciate input and recommendations. Patient currently awaiting a bed out of the ICU and SNF acceptance that can manage a trach collar. 06/06/2021 Patient is seen this morning and is on the med/surg floor and is tolerating trach collar at 40%. Pulmonary, psychiatry, and ID following. Patient continues to be weak and is working with physical therapy daily. Patient currently has a cap over her scalp which appears to be somewhat helping with her excessive picking of the wound. Continue local wound care. Patient appears in better spirits today. Spoke with mother today at the bedside about finding a suitable SNF or facility that has respiratory therapy on staff to assist with trach care and frequent suctioning that she has been requiring. Patient is currently off antibiotics and afebrile. No new labs from today and will order repeat labs along with a chest xray. Continue close monitoring of blood sugars as well and current medication regimen. 06/09/2021 Patient is seen this morning in follow-up continues to be on trach collar at 60%. Patient tolerating tube feedings although having some intermittent periods of nausea and will continue with Reglan and/or Zofran and continue tube feedings. Patient is working with physical therapy daily and have placed a consult for [facility] inpatient rehab with Dr. Shipman reactive social work following as well working on discharge planning. Pulmonary bar machine operator production foll owing as well and patient is stable from their standpoint for discharge to inpatient rehab facility. Patient is weak and has had prolonged hospitalization and would greatly benefit from an inpatient rehab with close monitoring of multiple medical issues as patient is considered critically ill. 06/10/2021 Patient is seen and evaluated today and continues on trach collar with an FiO2 of 60% and flow rate is 10 and maintaining oxygen saturations of 95%. Per nursing staff patient had some reported episodes of hypoglycemia although patient was asymptomatic and denied any feelings of blood sugar being low and was as low as 29-33 and given an amp of dextrose. Patient will be started on gentle IV hydration with dextrose and will continue with sliding scale and Accu- Cheks before meals and at bedtime and as needed and will discontinue long-acting for now and closely monitor. Patient also having some diffuse abdominal pain and intermittent nausea with no reports of vomiting and tube feeds on hold and will be resumed per protocol. 06/11/2021 Patient is seen this morning currently working with physical therapy and has been daily. Patient continues on trach collar with an FiO2 of 40% and maintaining oxygen saturation above 92%. Patient's blood sugars in the high 180s to 200s with one episode of 353 last night and is maintained on IV saline with D5 at 75 ML per hour and will wean and continue with sliding scale for now. Long-acting on hold currently. Patient tolerating tube feedings and is at goal. Chest X-ray today shows diffuse interstitial opacification and patchy confluent opacification throughout the right lung with these opacification is becoming less compliant from prior exam with no pleural effusion and showing some improvement. Pulmonary along with psychiatry and PT/OT therapy following. ID following as well and monitoring closely off IV antibiotics. Labs: WBC is 7.9, hemoglobin is 7.8, platelets are 454, sodium is 138, potassium 4.1, BUN 22, creatinine 0.32, calcium 8.1. Review of systems: Constitutional: no reports of fatigue, no reports of fever, or chills Cardiovascular: No reports of chest pain or palpitations Respiratory: No reports of worsening shortness of breath or cough status post tracheostomy and trach collar GI: reports of intermittent nausea, no reports of vomiting, reports continued loose stool with slight improvement : No reports of dysuria or retention Neurovascular: Reports of generalized weakness All medications have been reviewed Active Medications Acetaminophen (Acetaminophen Tab 325 Mg Tab) 650 mg PO Q6HR PRN PRN Reason: Fever and/ or Mild Pain Last Admin: 05/23/21 04:35 Dose: 650 mg Documented by: Albuterol/Ipratropium (Ipratropium-Albuterol 3 Ml Neb) 3 ml INHALATION RT-TID [facility] Last Admin: 06/11/21 11:55 Dose: 3 ml Documented by: Cholecalciferol (Cholecalciferol 25 Mcg (1000 Iu) Tablet) 50 mcg PO DAILY [facility] Last Admin: 06/11/21 07:53 Dose: 50 mcg Documented by: Cholestyramine Resin (Cholestyramine (With Sugar) 4 Gm Packet) 4 gm PO BID@1000,1800 [facility] Last Admin: 06/11/21 12:02 Dose: 4 gm Documented by: Fluoxetine HCl (Fluoxetine Hcl 20 Mg Cap) 40 mg PO DAILY [facility] Last Admin: 06/11/21 07:53 Dose: 40 mg Documented by: Folic Acid (Folic Acid 1 Mg Tab) 1 mg PO DAILY@1200 [facility] Last Admin: 06/11/21 07:53 Dose: 1 mg Documented by: Hydromorphone HCl (Hydromorphone 0.5 Mg/0.5 Ml Syringe) 0.5 mg IVP Q3HR PRN PRN Reason: Severe Pain Last Admin: 06/11/21 10:58 Dose: 0.5 mg Documented by: Dextrose/Sodium Chloride (Dextrose 5%-Ns Iv Soln) 1,000 mls @ 75 mls/hr IV .[id number] [facility] Last Admin: 06/11/21 02:54 Dose: Not Given Documented by: Insulin Aspart (Insulin Aspart (Novolog) 100 Unit/Ml Vial) 0 unit SQ Q4H [facility]; Protocol Last Admin: 06/11/21 12:02 Dose: 4 unit Documented by: Metoclopramide HCl (Metoclopramide 5 Mg/Ml 2 Ml Vial) 5 mg IVP Q6HR PRN PRN Reason: Nausea And Vomiting Last Admin: 06/11/21 12:53 Dose: 5 mg Documented by: Miscellaneous Information (Magnesium Replacement Protocol 1 Each Misc) 1 each MISCELLANE DAILY PRN; Protocol PRN Reason: Per Protocol Miscellaneous Information (Potassium Replacement Protocol 1 Each Misc) 1 each MISCELLANE DAILY PRN; Protocol PRN Reason: Per Protocol Montelukast Sodium (Montelukast 10 Mg Tab) 10 mg PO [facility] Last Admin: 06/10/21 20:30 Dose: 10 mg Documented by: Multivitamins (Multivitamins, Thera 1 Each Tab) 1 each PO DAILY@1200 [facility] Last Admin: 06/11/21 07:53 Dose: 1 each Documented by: Ondansetron HCl (Ondansetron 4 Mg/2 Ml Vial) 4 mg IVP Q6HR PRN PRN Reason: Nausea And Vomiting Last Admin: 06/11/21 11:01 Dose: 4 mg Documented by: Pantoprazole Sodium (Pantoprazole 40 Mg/10 Ml Vial) 40 mg IVP DAILY [facility] Last Admin: 06/11/21 07:52 Dose: 40 mg Documented by: Pregabalin (Pregabalin 75 Mg Cap) 75 mg PO TID [facility] Last Admin: 06/11/21 07:53 Dose: 75 mg Documented by: Sumatriptan Succinate (Sumatriptan Succinate 50 Mg Tab) 100 mg PO DAILY PRN PRN Reason: Migraine Headache Temazepam (Temazepam 15 Mg Cap) 15 mg PO HS [facility] Last Admin: 06/10/21 20:30 Dose: 15 mg Documented by: Thiamine HCl (Thiamine 100 Mg Tab) 100 mg PO BID-W/MEALS [facility] Last Admin: 06/11/21 07:54 Dose: 100 mg Documented by: Zinc Sulfate (Zinc Sulfate 220 Mg Cap) 220 mg PO DAILY [facility] Last Admin: 06/11/21 07:52 Dose: 220 mg Documented by: Physical Exam: Gen: This is a 36-year-old female who is awake, alert and oriented x3. Status post tracheostomy placement, thin built, cachectic. on 40% FiO2 trach collar and maintaining oxygen saturations above 92% HEENT: Head is atraumatic, normocephalic. Pupils equal, round. Sclerae is anicteric. oral mucosa moist NECK: Supple. No JVD. No lymphadenopathy. No thyromegaly. tracheostomy and collar noted LUNGS: Breath sounds diminished with scattered rhonchi noted. No intercostal retractions. HEART: S1, S2 are muffled ABDOMEN: Soft. Bowel sounds are present. No masses. No tenderness. peg tube noted EXTREMITIES: No pedal edema. No calf tenderness. NEUROLOGICAL: Patient is awake, alert and oriented x3. Diffusely weak. Nodding yes and no to questions and commands appropriately. 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 Hold long acting for now and continue sliding scale Severe hypokalemia, resolved Severe hyponatremia, resolved Fungal urinary tract infection, treated, ID following patient off antibiotics Severe protein calorie malnutrition with a body mass index of 16.0 diabetes mellitus type I, uncontrolled with hypoglycemia, improved Stage II pressure injury right upper arm with stage III Coccyx documented by nurse Hypoalbuminemia Anemia of unknown etiology Anxiety, depression Gait dysfunction Medical debility secondary to prolonged hospitalization Myopathy Full code Plan: This is a 36-year-old female who was recently admitted and discharged for ex tensive pneumonia and was rehospitalized shortly thereafter for aspiration pneumonia and hypoglycemic event. Patient has had prolonged hospitalization of 25 days and has been intubated and extubated twice and had respiratory arrest resulting in PEG tube and tracheostomy placement and is now maintained on a trach collar with an FiO2 of 40% and given the extent and severity of critical illness, patient has myopathy and medical debility with extreme weakness and given other multiple comorbid conditions and complex medical issues including severe depression, brittle diabetic, weakness patient needs extensive rehab. Patient has been working with physical therapy daily and continues with extreme weakness and patient is not back to baseline. Prior to hospitalization patient was independent in ADLs and working previously and caring for her 3 children. Recommend to continue with current medications and follow along closely with multiple medical consultations. Infectious disease is also following and patient is maintained off antibiotic therapy and WBC within normal limits and patient is afebrile. Repeat chest x-ray today shows some possible improvement in opacification is in basic labs within normal limits. Social work also following working on discharge planning and possible inpatient rehab versus some form of skilled facility that can assist and accommodate trach collar care and monitoring. Recommend to continue closely monitoring blood sugars and Accu- Cheks before meals and at bedtime and as needed and will continue with sliding scale for now and slowly weaning the D5 0.9 and repeat labs. Again due to multiple complex medical issues, prognosis is guarded. Objective - Vital Signs Vital signs: Vital Signs Temp 99 F 06/11/21 07:09 Pulse 112 H 06/11/21 08:48 Resp 16 06/11/21 07:09 BP 106/72 06/11/21 07:09 Pulse Ox 92 L 06/11/21 07:09 Intake & Output 06/10/21 06/11/21 06/11/21 18:59 06:59 18:59 Output Total 4 Balance -4 Weight 46.1 kg 38.5 kg Output: Stool 4 Other: Voiding Method Diaper Diaper Incontinent Incontinent # Voids 2 # Bowel Movements 2 - Labs CBC & Chem 7: 06/11/21 03:28 06/11/21 03:28 Labs: Abnormal Lab Results - Last 24 Hours (Table) 06/10/21 06/10/21 06/10/21 Range/Units 11:48 12:05 17:03 RBC (3.80-5.40) m/uL Hgb (11.4-16.0) gm/dL Hct (34.0-46.0) % MCHC (31.0-37.0) g/dL RDW (11.5-15.5) % Plt Count (150-450) k/uL Carbon Dioxide (22-30) mmol/L BUN (7-17) mg/dL Creatinine (0.52-1.04) mg/dL Glucose (74-99) mg/dL POC Glucose (mg/dL) 29 L 174 H 184 H (75-99) mg/dL Calcium (8.4-10.2) mg/dL 06/10/21 06/11/21 06/11/21 Range/Units 20:16 00:05 03:28 RBC 2.88 L (3.80-5.40) m/uL Hgb 7.8 L (11.4-16.0) gm/dL Hct 25.8 L (34.0-46.0) % MCHC 30.1 L (31.0-37.0) g/dL RDW 16.1 H (11.5-15.5) % Plt Count 454 H (150-450) k/uL Carbon Dioxide (22-30) mmol/L BUN (7-17) mg/dL Creatinine (0.52-1.04) mg/dL Glucose (74-99) mg/dL POC Glucose (mg/dL) 204 H 353 H (75-99) mg/dL Calcium (8.4-10.2) mg/dL 06/11/21 06/11/21 06/11/21 Range/Units 03:28 04:23 07:31 RBC (3.80-5.40) m/uL Hgb (11.4-16.0) gm/dL Hct (34.0-46.0) % MCHC (31.0-37.0) g/dL RDW (11.5-15.5) % Plt Count (150-450) k/uL Carbon Dioxide 31 H (22-30) mmol/L BUN 22 H (7-17) mg/dL Creatinine 0.32 L (0.52-1.04) mg/dL Glucose 242 H (74-99) mg/dL POC Glucose (mg/dL) 237 H 184 H (75-99) mg/dL Calcium 8.1 L (8.4-10.2) mg/dL
--- NOTE | 2021-06-11 14:17 | P.PN ---
Subjective Progress Note Date: 06/11/21 This is a 36-year-old old female, seen in the emergency room, room 10. The patient was just discharged out of the hospital yesterday, May 16. The patient apparently returned to the emergency room, with a low blood sugar. She was brought in by EMS. She apparently has no memory of why she was in the ospital. She apparently was hungry when she came into the ER. She complained of back pain. Her blood glucose on arrival was 36. The patient was in the hospital recently for a left-sided pneumonia. The patient also has a history of diabetes with diabetic ketoacidosis. The patient is currently on O2 at 2 L. She's getting D5 0.9 at 75 mL an hour. She was given Augmentin, but we discontinued it in favor of Zosyn. The patient has a history of diabetes, diabetic neuropathy, chronic low back pain, migraine cephalgia, chronic constipation, and prior MRSA infection. White count 21.9, hemoglobin 8.8, hematocrit 28.7, and platelet count 474,000. Sodium 129, potassium 4.4, chlorides 102, CO2 24, anion gap 3, BUN 7, with a creatinine of 0.29. Albumin is 2. Urine is light yellow in color, and cloudy, leukocyte esterase being small positive, 9 WBCs, and rare bacteria. Drug screen is negative. Testing for ling virus was negative. Chest x-ray shows bilateral pneumonia, with dense consolidation within the left lung, and much less infiltrate in the right base. Progress note dated 05/18/2021. This is a 36-year-old female, who was seen in the emergency department in consultation yesterday, and room 10. The patient was recently discharged from the hospital on May 16. She was brought back in for mental status changes, and a low blood sugar. Apparently her blood glucose was only 36. Her prior admission was for diabetic ketoacidosis, and left-sided ammonia. Currently, she is back to her normal self. The patient is on 4 L nasal O2. She's not complaining of any respiratory distress or difficulty. She has a dry nonproductive cough. She was placed on Zosyn yesterday by our team. She was seen by infectious diseases. She has a history of diabetes, diabetic neuropathy , chronic low back pain, migraine cephalgia, chronic constipation, and prior MRSA infection. Currently, white count 19.3, he will been 7.2, hematocrit 24, and platelet count 449,000. Sodium 133, potassium 3.8, chlorides 100, CO2 21, anion gap 12, UN 7, and creatinine 0.4. Pro-calcitonin level is 0.15. C- reactive protein is 5.7. On today's evaluation of 05/19/2021, the patient is doing well. The patient is awake and alert. No signs of any significant respiratory distress. The patient was restarted back on IV Zosyn. The chest x-ray showed extensive consolidation of the left lung and the CAT scan of the chest also confirmed the same findings. The patient was Hospital as because of hypoglycemia. The patient altered mentation and she recovered fully. She is currently on Levemir 20 units along with sliding scale coverage. She is also on D5 water running at 100 mL an hour. Antibiotic coverage with IV Zosyn. Blood work shows a white cell count 12.4 with hemoglobin 8.5, BUN is at 5 with a creatinine of 0.4 and his sodium is at 134 with a potassium level of 3.3. The COVID 19 test that was negative. Urine drug screen was negative. Pro-calcitonin level has been consistently low. A focused on level was at 0.15. The patient currently is on oxygen 4 L per minute nasal cannula. She is afebrile. She is medically and hemodynamically stable at this point in time. She has poor dental conditions and poor oral hygiene. She has also developed some ulceration over the tip of the tongue probably related to candidal infection. On 2021, the patient's condition decompensated and the patient got transferred to the intensive care unit for respiratory support. Overnight, the patient became progressively more hypoxemic and short of breath. She was given a dose of Lasix 40 mg IV push without any much improvement. She was becoming also more lethargic and short of breath. She got transferred to the ICU. Currently she is on a BiPAP at a pressure of 12/6 cm of water with an FiO2 of 100%. Her Pulse Ox Is 99%. A Chest X-Ray Showed Extensive Consolidation of the Left Lung. There Are Some Air Bronchograms on the Left. At the Same Time There Are Some Air Pockets in the Left [place] Which Makes Me Concerned about an Underlying Cavitation/Abscess Formation. At the Same Time, There Is Progression of the Airspace Disease and There Is Development of New Patchy Opacities in the Right Midlung and the Right Lower Lung. Note That the Patient Was Covered with IV Zosyn for Any Potential Aspiration Pneumonia.Pro-Calcitonin Level Was at 0.15. Currently She Is on BiPAP Which Is Quite Comfortable. She instructed BiPAP dependent. The patient easily decompensates and desaturates 1 she's taken off the BiPAP. Note that she also had extensive oropharyngeal candidiasis and ulceration of the tongue for which she was given Diflucan. I added cold solution on her yesterday. She is unable to do adequate oral care as the patient is BiPAP dependent. In terms of IV fluids, the patient is on D5 water running at 40 mL an hour. This was started due to concerns of underlying episodes of hypoglycemia. She is a very brittle diabetic. Her blood sugars are all over the place. She is currently on Levemir insulin 20 units a day along with a sliding scale coverage. The Levemir insulin was given today. She is not eating much at this point in time as the patient is BiPAP dependent. Other blood work, her white cell count of 19.0 which is higher compared to yesterday. Hemoglobin is at 7.8. The blood gas while on 100% BiPAP initially showed a pH of 7.37 with a pCO2 of 46 and pO2 of 50. Current saturations up to 90%. Sodium is at 130 with a potassium level of 3.4 and a serum bicarb of 23 with a mean of 4 and a creatinine of 0.4. Her albumin is down to 2.0 with a total protein of 5.7. Cultures for now are negative in terms of blood culture. Note that the patient had MRSA and E. coli and strep in her urine back in 05/09/2021. She has also has had a previous MRSA wound infection involving the scalp. She is arousable. She is a bit lethargic. No agitation. On 05/21/2021 patient seen in follow-up in the intensive care unit, she currently remains on BiPAP support as of 12 and 600%, and her pulse ox is 99- 100%, she is awake and alert, oriented 3, she is extremely thirsty and hungry, does not appear to be in any acute distress, no complaints of worsening dyspnea, she seems to be breathing comfortably, nursing staff reports that patient was able to come off the BiPAP support to take sips of water, oral care, and pills, and patient tolerates being off BiPAP support better although she does desaturate. She is afebrile, hemodynamically she is stable, she remains on a combination of meropenem and vancomycin and Diflucan which were modified yesterday. Blood cultures have been negative thus far, she's been afebrile, no hemoptysis, no complaints of chest discomfort. Produced 5.2 L in urine output in response to Lasix, and she is in -3.8 L net fluid balance over the last 24 hours, today's chest x-ray has been reviewed, showing stable diffuse bilateral airspace disease. Absent been reviewed, white blood cell count is 20.2, hemoglobin is 7.9, platelet count is 482, serum sodium is 133, potassium 3.7, chloride is 104, CO2 is 24, B1 is 5 creatinine 0.42. Her last pro-calcitonin level from 05/18/2021 was 0.15. On 05/22/2021 patient seen in follow-up in intensive care unit, last night during an episode of getting cleaned up after having a bowel movement patient complained of not feeling well, she certainly became unresponsive, she started desaturating, her respirations became very agonal and rapid response team was called for ERIC BLUE. There was no seizure activity noted prior to the event, patient was not desaturating just prior to that, no arrhythmias were noted other than bradycardia after she had started desaturating. During the code patient did not lose her pulse, her pulse ox was down to 66% on high flow Airvo, she was emergently intubated and placed on mechanical ventilator, chest x-ray shows severe ARDS, she was hypotensive and received IV fluids and received norepinephrine infusion which is currently still infusing at 0.06 mics per kilo per minute, she was not hypoglycemic and her blood sugar at that time was 177, she had D5W infusing at 40, and she was starting to take in some oral intake. This morning she is sedated, intubated on assist control mode of ventilation with a rate of 16, tidal, 350, FiO2 is currently at 50% and PEEP of 8, this morning's blood gas shows pO2 of 102, pCO2 of 43, pH is 7.34, this was done on 70% FiO2 which had since been dropped down to 50%, this morning's chest x-ray was reviewed showing moderately severe pulmonary air space edema, without significant change compared to yesterday. The patient is in sinus mechanism, blood pressure is 112/72, currently on meropenem, vancomycin and Diflucan for aspiration pneumonia, blood cultures have been negative, patient has not been able to produce a sputum culture for us. Her labs reveal white blood cell count of 26.8 which is increased since yesterday from 20.2, hemoglobin of 7.9, platelet count of 530, sodium is 134, potassium is 4.0, chloride is 107, CO2 is 21, BUN is 7 creatinine 0.52, her glucose this morning is 203, LFTs were within normal limits, her last pro-calcitonin level from a few days ago was 0.15. Yesterday patient was given a liter bolus after she became intubated, she is producing urine in the order of 30-75 ML per hour, her Lasix is on hold. On 05/23/2021 patient seen in follow-up in the intensive care unit, she is sedated, intubated on mechanical ventilator with a assist control mode of ventilation and rate of 16, tidal emesis 50, FiO2 of 60% and PEEP of 8, this morning's blood gas was reviewed showing O2 of 154, pCO2 of 45, and pH of 7.37. Is currently on Diprivan at 40 mics per kilo per minute, Levaquin is at 3 mics per minute, 0.9 saline at any ML per hour. Today's chest x-ray showing persistent but improving bilateral airspace disease, right greater than left. There is some blood work has been reviewed showing white blood cell count of 13.4, hemoglobin of 7.3, sodium of 140, potassium is 3.9, chloride is 110, CO2 of 22, BUN of 6, creatinine of 0.62, this morning his glucose was 221. Recent have fevers overnight with a T-max of 101.5F. She currently remains on combination of meropenem, vancomycin and Diflucan. Patient is status post bronchoscopy and bronchoalveolar lavage on 05/22/2021, and BAL cultures are still pending. Gram stain showed no organisms thus far. Patient is tolerating tube feedings with vital HP at a rate of 20 ML per hour, Orellana catheter is in place, and patient is producing urine in the order of 50 to 100 mL per hour. On 05/24/2021 , is being seen for a follow-up. Note that the patient was extubated successfully yesterday. Extubation process went fine and the patient was doing very well on a nasal cannula oxygen. At around midnight, the patient acutely decompensated. She became short of breath and hypoxic. Her blood. This was done that showed acute respiratory acidosis with a pH of 7.24 with a pCO2 of 67 and pO2 of 80 and this was identified to 100%. He became acutely unresponsive and significant respiratory distress was noted by the nursing staff. At that point, it was decided that he intubated the patient. The patient is currently intubated on a mechanical ventilator. The patient is sedated with propofol which is running at 30 mcg/kg per minute to maintain synchrony with the mechanical ventilator. She is on assist control mode at the rate of 25, tidal volume of 350, FiO2 has been weaned down to 50% and the patient currently is in a PEEP of 10. Post intubation blood gases showed a pH of 7.48 with a pCO2 of 43 and pO2 of more than 400 and this was on FiO2 100%. Morning blood work also showed a drop in hemoglobin down to 6.1 from a baseline of 7.3. No evidence of any acute bleeding. No evidence of any hematemesis or melanotic stools. The patient will be given a total of 2 units of packed RBCs. Also, the patient is covered with broad-spectrum antibiotics patient remains on a combination of meropenem, vancomycin and Diflucan. The cultures from the bronchioloalveolar lavage was done earlier came back all negative. The repeat chest x-ray from today is showing adequate placement of the orotracheal tube. The patient continues to have bilateral pulmonary infiltrates. However, there is significant interval improvement in the bilateral pulmonary infiltrates compared to earlier chest x-rays. The white cycles of 7.12. Renal function is stable with a creatinine of 0.5 and a BUN of 7. Sodium level is at 144. Potassium level is at 3.2 and a K level will be replaced. The patient was restarted again on enteral feeding and this will be restarted today. Meanwhile, in terms of blood sugar control, the patient is receiving Levemir insulin 20 units once a day and a sliding scale coverage. Blood sugars have been maintained adequately and her most recent blood sugar currently is at 172. Her vancomycin felt level from today was 28. 05/25/2021, the patient is awake even on a low dose of propofol at 30 mcg/kg per minute. She is following commands. She wants to get the tube out. She is on a mechanical ventilator at the rate of 25, tidal volumes of 350, PEEP is at 10 and FiO2 is currently at 40%. PH is at 7.48 with a pCO2 of 43 and pO2 of 113. The lavage from the lungs did not yield any microbial growth. The patient continues to have diffuse bilateral pulmonary infiltrates and there is extensive consolidation bilaterally more so on the right. White secondary to 6.7. Hemoglobin is at 10.1 platelet count is at 356. Creatinine stable at 0.4. BUN is at 7. Sodium is at 139. LFTs are normal. Blood sugars at 168. The patient remains on a broad-spectrum antibiotic coverage. The patient is receiving IV Diflucan, IV vancomycin and IV meropenem. There was always the concern of aspiration in this patient as the patient developed initially extensive left lung consolidation subsequently infiltrates moved to the right. The bronchoscopy was done yielded no significant respiratory secretions or microbial growth at this point in time. She is on Levemir insulin and a sliding scale coverage. She is on no pressors for now. She is is slightly positive over the past 24 hours. The patient was receiving enteral feeding for nutritional support. She is currently on vital high protein at the rate of 20 mL an hour. No hypoglycemic attacks. As mentioned, she is easily arousable and she is moving all 4 extremities without any limitation. No fever. No significant leukocytosis. All of the cultures are negative. She remains on D5W at the rate of 75 mL an hour. No reported abdominal pain. LFTs are normal. Ultrasound abdomen showed a questionable gallbladder wall thickening and a calculus cholecystitis. On 05/26/2021 patient seen in follow-up in the intensive care unit, she is currently sedated, and intubated, on assist-control mode of ventilation with a rate of 25, tidal 350, FiO2 of 50% and PEEP of 5, this morning's blood gas shows pO2 of 55, pCO2 of 41, and pH of 7.54 and this was done and FiO2 of 40% and subsequently FiO2 was increased to 55%. She's currently on point and within indurated 20 ML per hour, norepinephrine drip has been off for over 12 hours, and improving and is at 30 mics per kilo per minute, she is on a vital high protein at a rate of 20 with standard water flushes 30 mL every 4 hours, today's chest x-ray has been reviewed showing bilateral multifocal confluent opacities. No significant change from one day earlier. Patient remains on a combination of antibiotics with Zosyn, vancomycin and Diflucan. Patient is status post bron choscopy with bronchoalveolar lavage on 05/22/2021, and so far BAL cultures are all negative, sputum and blood cultures and urine were all negative. Today's labs have been reviewed, white blood cell count is improved and is down to 7.3, hemoglobin is 9.8, sodium is 137, potassium is 3.4, chloride is 105, BUN is 8, creatinine 0.53. Hemodynamic patient is stable, she is in sinus mechanism, she has had no acute events overnight. No febrile episodes. He is currently likely sedated, she is opening eyes to verbal stimulation, and she seems to be following simple commands. Her LFTs are within normal limits. On 05/27/2021 patient seen in follow-up in the intensive care unit, she is lightly sedated, she opens her eyes to voice, she is following simple commands, does not appear to be in any acute distress, she still intubated, on assist- control mode of ventilation with a rate of 25, Tylenol level was 350, FiO2 of 50% and PEEP of 5, this morning's blood gas shows pO2 of 85, pCO2 44, and pH of 7.52. This was done on the above-mentioned ventilator settings. Today's chest x-ray changed to show patchy bilateral lung infiltrates that are stable in appearance. Vital signs have been stable overnight, no fever, no chills. All of her cultures including BAL cultures remained negative. Patient remains on a combination of antibiotics with Diflucan, Zosyn and vancomycin. She did require small dose of norepinephrine on which she remains, currently infusing at a rate of 3.9 mics per minute. Current blood pressure is 140/89, and norepinephrine can be discontinued. Urine output is in the order of 50 TOPD ML per hour. Patient is receiving the program at 30 mics per kilo per minute, and IV fluids are 0.9 normal saline at a rate of 20 ML per hour, she is tolerating tube feedings with vital AF at a rate of 36 with a goal of 36 and standard water flushes. Today's labs have been reviewed showing white blood cell, 7.4, hemoglobin of 10.4, platelet count of 377, sodium is 137, potassium is 3.4, chloride is 105, CO2 of 33, BUN of 9 creatinine 0.56 On 05/28/2021 patient is seen in follow-up in the intensive care unit, she is slightly sedated, she is awake, alert, she is following command, she still intubated on mechanical ventilator, on assist control mode of ventilation with a rate of 25, tidal volume 350, FiO2 of 40% and PEEP of 5. This was blood gas shows pO2 of 76, P CO2 of 43, and pH is 7.53 this was done on the above- mentioned ventilator settings, she is currently on 30 mics of dopamine, 0.9 normal seen at a rate of 20 ML per hour, tube feedings have been placed on hold for tracheostomy and PEG tube placement possibly today, she is hemodynamically stable, not requiring any vasopressor support. She is in sinus mechanism with a rate of 76 BPM, he had no acute events overnight, today's chest x-ray showing no evident pneumothorax, bilateral airspace disease similar to the prior exam, she said no fever or chills, vital signs have been stable overnight, she said no acute events, remains on the same antibiotics with a combination of Diflucan, Zosyn. Ankle Meissen has been discontinued, ID service is following. Her BAL cultures have shown no growth, urine, and blood cultures have been negative as well. Today's labs have been reviewed, her white blood cell count is 6.8, hemoglobin is 9.4, sodium is 137, potassium is 4.2, chloride is 105, CO2 is 23, BUN of 9, creatinine 0.59. 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 Generally patient is very weak. But does not appear to be in any acute distress, midline tracheostomy in place, incisions clean dry and intact, patient also received a PEG tube. Her tube feedings are on hold, she remains on Diflucan, she remains on Zosyn for empiric antibiotic coverage. All of patient's blood cultures BAL cultures and sputum cultures have remained negative to date. She's had no fever or chills. She is currently on assist control mode of ventilation with a rate of 25, tidal vital 350, FiO2 100%, and PEEP of 5. Prior to her procedure this morning patient was on the same ventilator settings with the exception of FiO2 which was at 40%, her morning blood gases were reviewed showing pO2 of 79, pCO2 41, pH is 7.50, this was done on 40% FiO2, currently patient is saturating at 100% on a heart percent FiO2 and PEEP of 5. Breathing comfortably, and her FiO2 was dropped down to 60% and -50%. Chest x-ray showing bilateral multifocal and confluent opacities greatest in the right lung no significant change compared to one day earlier. Patient has been off norepinephrine for 48 hours, to prevent is infusing at 30 mics per kilo per minute, 0.9 normal saline at a rate of 20 ML per hour, she is in sinus mechanism with a rate of 90-100 bpm, his labs have been reviewed with blood cell count is 7.5, hemoglobin is 9.4, platelet count was 386, sodium is 134, the rest of electrolytes and renal profile are unremarkable. On 05/30/2021 patient is seen in follow-up in the intensive care unit, she status post tracheostomy and PEG tube placement yesterday on 05/29/2021, she tolerated procedure very well, she is currently on pressure support of 10, FiO2 of 40%, CPAP 5, she tolerated it very well, this morning's blood gas has been reviewed, pO2 of 79, pCO2 of 50, and pH of 7.39. Chest x-ray yesterday showed bilateral multifocal and confluent opacities without significant change from the day earlier, no need for another chest x-ray today, we'll obtain follow-up chest x-ray for tomorrow. She is currently off the prevent, and sedation has been off since yesterday. She is on 0.9 normal saline at a rate of 20 ML per hour, she remains on a combination of antibiotics was Diflucan and Zosyn, all of her cultures including BAL cultures have remained negative, she has been stable overnight, she's been afebrile, no complaint of chest discomfort. No hemoptysis. Today's labs have been reviewed showing white blood cell count of 11.3, hemoglobin of 9.6, platelet count of 474, sodium is 135, the rest of electrolytes and renal profile are within normal limits, BUN is 8, creatinine 0.59. Patient is supposed to be restarted on tube feedings. She is awake and alert, in no acute distress, she's been hemodynamically stable, not requiring any vasopressor support, she is following all commands, seems to be in good spirits. She's had no acute events overnight. On 06/02/2021 patient seen in follow-up in the intensive care unit, she is awake and alert, in no acute distress, patient received a tracheostomy and PEG tube placement on 05/29/2021, she had since tolerated trach collar at 60%, she is breathing comfortably, she denies any acute distress, her chest x-ray today showing patchy and confluent bilateral airspace disease, right greater than left, with slight interval worsening. Vital signs have been stable overnight, on 60% trach collar her pulse ox is 96-100%. She is afebrile, hemodynamically she has remained stable. She is on 0.9 normal saline at a rate of 75 ML per hour, apparently her tube feedings have been placed on hold related to some high residuals. Patient remains on antibiotics in the form of Zosyn and fluconazole, all her cultures including BAL cultures remain negative thus far. Today's labs have been reviewed, white blood cell count is 9.1, hemoglobin is 8.9, sodium is 140, potassium is 3.4, the rest is actually some renal profile are unremarkable. LFTs are within normal limits, follow-up pro-calcitonin level is 0.42, slightly improved from the previous value of 0.48. On 06/09/2021 patient seen in follow-up on medical surgical floor, she is resting comfortably in bed, is currently on 60% trach collar, and her pulse ox is 100%, breathing very comfortably, lung sounds reveal a few scattered rhonchi, right greater than left. No complaints of chest discomfort, no hemoptysis, vital signs have been stable, she is awake and alert, following commands and, responding appropriately, denies any acute distress. Patient had a CT of the chest on 06/08/2021, showing multifocal pneumonia, no evidence of a large central pulmonary embolism, and moderate right and small left pleural effusions with adjacent atelectasis. Clinically patient has been stable, for cultures including blood, BAL, urine culture and sputum cultures have shown no growth. Patient has completed antibiotics, and currently she is off all antibiotics, she remains on nebulized rhonchi with diabetes with DuoNeb. Blood work from yesterday has been reviewed, her Lamictal, is improving, is down to 10.04, hemoglobin is 8.0, electrolytes and renal profile are unremarkable, for follow- up pro-calcitonin is negative at 0.11. PEG tube is in place, and patient is tolerating tube feeding she is receiving Vital AF at 50 ML per hour. On 06/10/2021 patient seen in follow-up on medical surgical floor. She is awake, in no acute distress, breathing comfortably, she is currently on 60% FiO2, her pulse ox is 95%, minimal secretions out of the tracheostomy. She is tolerating her tube feedings, she's had no acute events overnight, no fever or chills, minimal scattered rhonchi. Patient has completed her antibiotics. Vital signs have been stable. No altered mentation, no acute events overnight, she's been participating with therapy. She was accepted to inpatient rehab at the [facility]. On 06/11/2021 patient is seen in follow-up on medical surgical floor. She is breathing comfortable, she is currently on 40% trach we switched her cannula to a fenestrated cannula, and a speaking valve. However patient still having some secretions, and overall she wasn't too comfortable with the speaking valve being on. She does better with just occluding the tracheostomy with her finger and speaking. Lung sounds are clear, no rhonchi or wheezing. Vital signs have been stable, patient did not qualify for inpatient rehab, discharge planning is in progress for discharge to [facility]. Otherwise no acute events overnight, she has completed all antibiotics. She has been suctioned on as-needed basis by the respiratory therapy a couple times a day. She's had no fever or chills. She is tolerating her tube feedings Objective - Vital Signs Vital signs: Vital Signs Temp 99 F 06/11/21 07:09 Pulse 108 H 06/11/21 12:15 Resp 16 06/11/21 07:09 BP 106/72 06/11/21 07:09 Pulse Ox 92 L 06/11/21 07:09 Intake & Output 06/10/21 06/11/21 06/11/21 18:59 06:59 18:59 Output Total 4 Balance -4 Weight 46.1 kg 38.5 kg Output: Stool 4 Other: Voiding Method Diaper Diaper Incontinent Incontinent # Voids 2 # Bowel Movements 2 - Exam GENERAL EXAM: Awake and alert, oriented 3 , 60% trach collar, 36-year-old frail looking white female, on 40% trach collar with a pulse ox of 96-100% comfortable in no apparent distress. HEAD: Normocephalic/atraumatic. EYES: Normal reaction of pupils, equal size. Conjunctiva pink, sclera white. NOSE: Clear with pink turbinates. MOUTH: She has ulcerations of her oral cavity THROAT: No erythema or exudates. NECK: No masses, no JVD, no thyroid enlargement, no adenopathy. Midline t racheostomy in place, on is on 60% trach collar, breathing comfortably patient is clean dry and intact CHEST: No chest wall deformity. Symmetrical expansion. LUNGS: diminished air entry with crackles, no wheeze, no rhonchi or dullness. CVS: Regular rate and rhythm, normal S1 and S2, no gallops, no murmurs, no rubs ABDOMEN: Soft, nontender. No hepatosplenomegaly, normal bowel sounds, no guarding or rigidity. PEG tube insertion site is clean dry and intact, patient is receiving tube feedings in the form of vital area at 50 ML per hour, tolerating tube feedings well. EXTREMITIES: No clubbing, no edema, no cyanosis, 2+ pulses and upper and lower extremities. MUSCULOSKELETAL: Muscle strength and tone normal. SPINE: No scoliosis or deformity SKIN: No rashes CENTRAL NERVOUS SYSTEM: Awake and alert, following command No focal deficits, tone is normal in all 4 extremities. - Labs CBC & Chem 7: 06/11/21 03:28 06/11/21 03:28 Labs: Abnormal Lab Results - Last 24 Hours (Table) 06/10/21 06/10/21 06/11/21 Range/Units 17:03 20:16 00:05 RBC (3.80-5.40) m/uL Hgb (11.4-16.0) gm/dL Hct (34.0-46.0) % MCHC (31.0-37.0) g/dL RDW (11.5-15.5) % Plt Count (150-450) k/uL Carbon Dioxide (22-30) mmol/L BUN (7-17) mg/dL Creatinine (0.52-1.04) mg/dL Glucose (74-99) mg/dL POC Glucose (mg/dL) 184 H 204 H 353 H (75-99) mg/dL Calcium (8.4-10.2) mg/dL 06/11/21 06/11/21 06/11/21 Range/Units 03:28 03:28 04:23 RBC 2.88 L (3.80-5.40) m/uL Hgb 7.8 L (11.4-16.0) gm/dL Hct 25.8 L (34.0-46.0) % MCHC 30.1 L (31.0-37.0) g/dL RDW 16.1 H (11.5-15.5) % Plt Count 454 H (150-450) k/uL Carbon Dioxide 31 H (22-30) mmol/L BUN 22 H (7-17) mg/dL Creatinine 0.32 L (0.52-1.04) mg/dL Glucose 242 H (74-99) mg/dL POC Glucose (mg/dL) 237 H (75-99) mg/dL Calcium 8.1 L (8.4-10.2) mg/dL 06/11/21 06/11/21 Range/Units 07:31 11:52 RBC (3.80-5.40) m/uL Hgb (11.4-16.0) gm/dL Hct (34.0-46.0) % MCHC (31.0-37.0) g/dL RDW (11.5-15.5) % Plt Count (150-450) k/uL Carbon Dioxide (22-30) mmol/L BUN (7-17) mg/dL Creatinine (0.52-1.04) mg/dL Glucose (74-99) mg/dL POC Glucose (mg/dL) 184 H 264 H (75-99) mg/dL Calcium (8.4-10.2) mg/dL Assessment and Plan Plan: Assessment: #1. Acute hypoxic respiratory failure related to worsening and progression of pneumonia, and chest x-ray showing patchy consolidation involving the right midlung, right upper lobe and right lower lobe in addition to extensive consolidation of the left lung with possibly some cavitation. Patient is currently covered with meropenem and vancomycin, her antibiotics have been modified yesterday, initially covered with Zosyn, patient was doing well on Airvo on 05/21/2021, was clinically improving, but suffered acute respiratory arrest on 05/21/2021 and was intubated, patient was successfully weaned and extubated on 05/23/2021 however failed again and had to be reintubated later t hat evening on 05/23/2021. In view of multiple episodes of respiratory failure patient will be considered for tracheostomy and PEG tube placement for weaning. Patient is status post bronchoscopy with bronchoalveolar lavage on 05/23/2021, so far BAL cultures are all negative. Patient is status post tracheostomy and PEG tube placement on 05/29/2021, tolerating pressure support trials pressure-support of 10 and CPAP of 5 on 05/29/2021, and again today on 05/30/2021. Patient has been tolerating trach collar trials, currently on 40% trach collar satting almost 100% #2. Altered mental status secondary to hypoglycemia. Patient had recovered, and she was back to baseline neurologically. #3. History of diabetes, and recent episode of diabetic ketoacidosis, recovered. Levemir insulin has been discontinued and patient is currently covered with sliding scale NovoLog, her last episode of hypoglycemia was on 05/19/2021 with a blood sugar of 45. No recurrence of hypoglycemia since #4. History of syncopal episodes related to hypoglycemia #5. History of migraine cephalgia #6. History of diabetic neuropathy #7. Chronic constipation #8. Chronic low back pain #9. Tongue and oral pharyngeal candidiasis, with ulcerations #10. Previous history of MRSA infection in the laceration of the scalp #11. Chronic anemia with interval drop in hemoglobin down to 6.1 without evidence of any active GI bleeding, patient has received 2 units of packed red blood cells this admission Plan: No worsening dyspnea or hypoxia No fever or chills, breathing comfortably Patient is tolerating trach collar at 40% Fenestrated cannula has been placed, and patient may use speaking valve intermit tently Suction tracheostomy as needed No fever or chills, clinically stable, tolerating tube feedings Stable for discharge to [facility] Discharge planning is in progress for placement to [facility] I performed a history & physical examination of the patient and discussed their management with my nurse practitioner, Dania Negron. I reviewed the nurse practitioner's note and agree with the documented findings and plan of care. Lung sounds are positive for dim breath sounds throughout the lung abbott. The findings and the impression was discussed with the patient. I attest to the do cumentation by the nurse practitioner. Time with Patient: Less than 30
[2021-06-11 16:38] LABS: Glucose,Whole Blood 362 mg/dL (75-99)
[2021-06-11 20:02] LABS: Glucose,Whole Blood 258 mg/dL (75-99)
[2021-06-11] MEDS: MONTELUKAST 10 MG TAB PO SCH (20:06)
[2021-06-11] MEDS: TEMAZEPAM 15 MG CAP PO SCH (20:06)
--- NOTE | 2021-06-11 21:47 | P.PN ---
Subjective Progress Note Date: 06/10/21 Principal diagnosis: Pneumonia Interval history : The patient is a 36-year-old female who presented to the hospital with an episode of unresponsiveness and concern for aspiration pneumonia. The patient subsequently did have worsening of her respiratory status, requiring intubation x2.Currently on the vent. The patient is status post trach and PEG completed 05/29/2021 On today's evaluation, that is 06/10/2021, The patient continues to be febrile, the patient is breathing comfortably on the trach collar, patient denies chest pain , patient has been tolerating her tube feeds and the patient diarrhea has resolved, Objective - Vital Signs Vital signs: Vital Signs Temp 98 F 06/10/21 19:33 Pulse 112 H 06/10/21 20:28 Resp 20 06/10/21 19:33 BP 125/80 06/10/21 19:33 Pulse Ox 92 L 06/10/21 19:33 Intake & Output 06/10/21 06/10/21 06/11/21 06:59 18:59 06:59 Intake Total 0 Output Total 3 Balance -3 Weight 46.1 kg Intake: Oral 0 Output: Urine 2 Stool 1 Other: Voiding Method Diaper Diaper Diaper Incontinent Incontinent Incontinent # Voids 3 # Bowel Movements 1 - Exam General description is a middle-aged female up in the chair in no distress Respiratory system:Unlabored breathing, decreased intensity of breath sounds. No wheeze. Heart S1, S2.Regular rate and rhythm. Abdomen soft, no tenderness Extremities: No edema feet - Labs CBC & Chem 7: 06/11/21 03:28 06/11/21 03:28 Labs: Abnormal Lab Results - Last 24 Hours (Table) 06/10/21 06/10/21 06/10/21 Range/Units 00:09 07:04 07:21 POC Glucose (mg/dL) 171 H 33 L 177 H (75-99) mg/dL 06/10/21 06/10/21 06/10/21 Range/Units 11:48 12:05 17:03 POC Glucose (mg/dL) 29 L 174 H 184 H (75-99) mg/dL 06/10/21 Range/Units 20:16 POC Glucose (mg/dL) 204 H (75-99) mg/dL Assessment and Plan (1) Pneumonia Current Visit: Yes Status: Acute Code(s): J18.9 - PNEUMONIA, UNSPECIFIED ORGANISM SNOMED Code(s): 769905069 Plan: 1. Patient with acute respiratory failure, likely multifactorial, with concern for possible component of aspiration pneumonia. Patient failed to be extubated and is status post trach and PEG, The patient's bronch culture has been negative for any resistant pathogen , The patient has received adequate antibiotic therapy for her pneumonia and is currently monitored off antibiotic therapy 2patient diarrhea possible antibiotic associated stool for C. diff was negative , patient diarrhea has improved with Questran which should be put on hold if no bowel movement for more than 24 hour Time with Patient: Less than 30
--- NOTE | 2021-06-11 21:48 | P.PN ---
Subjective Progress Note Date: 06/11/21 Principal diagnosis: Pneumonia Interval history : The patient is a 36-year-old female who presented to the hospital with an episode of unresponsiveness and concern for aspiration pneumonia. The patient subsequently did have worsening of her respiratory status, requiring intubation x2.Currently on the vent. The patient is status post trach and PEG completed 05/29/2021 On today's evaluation, that is 06/11/2021, The patient remains to be afebrile, the patient is breathing comfortably on the trach collar, patient denies chest pain , patient has been tolerating her tube feeds and the patient diarrhea has resolved, patient is currently waiting for placement Objective - Vital Signs Vital signs: Vital Signs Temp 99.3 F 06/11/21 14:00 Pulse 108 H 06/11/21 21:00 Resp 18 06/11/21 14:00 BP 126/80 06/11/21 14:00 Pulse Ox 94 L 06/11/21 14:00 Intake & Output 06/11/21 06/11/21 06/12/21 06:59 18:59 06:59 Intake Total 500 Output Total 4 Balance -4 500 Weight 38.5 kg Intake: Tube Feeding 500 Output: Stool 4 Other: Voiding Method Diaper Incontinent # Voids 2 1 # Bowel Movements 2 1 - Exam General description is a middle-aged female up in the chair in no distress Respiratory system:Unlabored breathing, decreased intensity of breath sounds. No wheeze. Heart S1, S2.Regular rate and rhythm. Abdomen soft, no tenderness Extremities: No edema feet - Labs CBC & Chem 7: 06/11/21 03:28 06/11/21 03:28 Labs: Abnormal Lab Results - Last 24 Hours (Table) 06/11/21 06/11/21 06/11/21 Range/Units 00:05 03:28 03:28 RBC 2.88 L (3.80-5.40) m/uL Hgb 7.8 L (11.4-16.0) gm/dL Hct 25.8 L (34.0-46.0) % MCHC 30.1 L (31.0-37.0) g/dL RDW 16.1 H (11.5-15.5) % Plt Count 454 H (150-450) k/uL Carbon Dioxide 31 H (22-30) mmol/L BUN 22 H (7-17) mg/dL Creatinine 0.32 L (0.52-1.04) mg/dL Glucose 242 H (74-99) mg/dL POC Glucose (mg/dL) 353 H (75-99) mg/dL Calcium 8.1 L (8.4-10.2) mg/dL 06/11/21 06/11/21 06/11/21 Range/Units 04:23 07:31 11:52 RBC (3.80-5.40) m/uL Hgb (11.4-16.0) gm/dL Hct (34.0-46.0) % MCHC (31.0-37.0) g/dL RDW (11.5-15.5) % Plt Count (150-450) k/uL Carbon Dioxide (22-30) mmol/L BUN (7-17) mg/dL Creatinine (0.52-1.04) mg/dL Glucose (74-99) mg/dL POC Glucose (mg/dL) 237 H 184 H 264 H (75-99) mg/dL Calcium (8.4-10.2) mg/dL 06/11/21 06/11/21 Range/Units 16:36 20:01 RBC (3.80-5.40) m/uL Hgb (11.4-16.0) gm/dL Hct (34.0-46.0) % MCHC (31.0-37.0) g/dL RDW (11.5-15.5) % Plt Count (150-450) k/uL Carbon Dioxide (22-30) mmol/L BUN (7-17) mg/dL Creatinine (0.52-1.04) mg/dL Glucose (74-99) mg/dL POC Glucose (mg/dL) 362 H 258 H (75-99) mg/dL Calcium (8.4-10.2) mg/dL Assessment and Plan (1) Pneumonia Current Visit: Yes Status: Acute Code(s): J18.9 - PNEUMONIA, UNSPECIFIED ORGANISM SNOMED Code(s): 423882674 Plan: 1. Patient with acute respiratory failure, likely multifactorial, with concern for possible component of aspiration pneumonia. Patient failed to be extubated and is status post trach and PEG, The patient's bronch culture has been negative for any resistant pathogen , The patient has received adequate antibiotic therapy for her pneumonia and is currently doing well off antibiotic therapy, white count is normal 2patient diarrhea possible antibiotic associated stool for C. diff was negative , patient diarrhea has resolved Questran will be discontinued Time with Patient: Less than 30
[2021-06-12] MEDS: HYDROmorphone 0.5 MG/0.5 ML SYRINGE IVP PRN ×4 (00:39→08:59)
[2021-06-12] MEDS: INSULIN ASPART (NovoLOG) 100 UNIT/ML VIAL SQ SCH ×6 (00:47→20:41)
[2021-06-12 00:49] LABS: Glucose,Whole Blood 308 mg/dL (75-99)
[2021-06-12 05:14] LABS: Glucose,Whole Blood 329 mg/dL (75-99)
[2021-06-12] MEDS: IPRATROPIUM-ALBUTEROL 3 ML NEB INHALATION SCH ×4 (07:14→21:35)
[2021-06-12] MEDS: DEXTROSE 5%-0.9% NACL 1,000 ML IV SCH (07:18)
[2021-06-12 08:48] LABS: Glucose,Whole Blood 287 mg/dL (75-99)
[2021-06-12] MEDS: PANTOPRAZOLE 40 MG/10 ML VIAL IVP SCH (09:00)
[2021-06-12] MEDS: MULTIVITAMINS, THERA 1 EACH TAB PO SCH (09:01)
[2021-06-12] MEDS: CHOLECALCIFEROL 25 MCG (1000 IU) TABLET PO SCH (09:01)
[2021-06-12] MEDS: FLUoxetine HCL 20 MG CAP PO SCH (09:01)
[2021-06-12] MEDS: THIAMINE 100 MG TAB PO SCH ×2 (09:01→16:17)
[2021-06-12] MEDS: FOLIC ACID 1 MG TAB PO SCH (09:01)
[2021-06-12] MEDS: PREGABALIN 75 MG CAP PO SCH ×3 (09:01→20:41)
[2021-06-12] MEDS ORDERED: HYDROmorphone 0.5 MG/0.5 ML SYRINGE IVP PRN (11:10)
[2021-06-12 11:58] LABS: Glucose,Whole Blood 211 mg/dL (75-99)
--- NOTE | 2021-06-12 12:51 | P.PN ---
Subjective Progress Note Date: 06/12/21 CHIEF COMPLAINT: Hypoglycemia HISTORY OF PRESENT ILLNESS: Patient status post tracheostomy and PEG tube p lacement on 05/29/2021. Patient is on a medical floor. Patient is tolerating her tube feeds. Minimal residual reported this morning. She denies any abdominal pain. Denies any nausea vomiting. She is stooling. Afebrile. On trach collar PHYSICAL EXAM: VITAL SIGNS: Reviewed. GENERAL: no acute distress. HEENT: No sclera icterus. Extraocular movements grossly intact. Moist buccal mucosa. Head is atraumatic, normocephalic. Trach site clean dry and intact ABDOMEN: Soft. Nondistended. PEG tube site clean dry and intact ASSESSMENT: 1. Acute hypoxic respiratory failure secondary to pneumonia. Patient was extubated and required to be reintubated on 05/23/2021. Patient status post tracheostomy placement 2. Severe protein calorie malnutrition. Patient status post PEG tube placement 3. Possible aspiration pneumonia PLAN: -tube feeds per dietitian recommendations -Continue to monitor -Continue supportive care -Continue antiemetics as needed -Antibiotics per ID -Social work addressing discharge planning at subacute rehab Physician Finance Lead note has been reviewed by physician. Signing provider agrees with the documented findings, assessment, and plan of care. Objective - Vital Signs Vital signs: Vital Signs Temp 97.6 F 06/12/21 07:34 Pulse 119 H 06/12/21 12:38 Resp 20 06/12/21 07:34 BP 128/75 06/12/21 07:34 Pulse Ox 100 06/12/21 07:34 Intake & Output 06/11/21 06/12/21 06/12/21 18:59 06:59 18:59 Intake Total 500 Balance 500 Weight 39.6 kg Intake: Tube Feeding 500 Other: # Voids 1 2 # Bowel Movements 1 2 - Labs CBC & Chem 7: 06/11/21 03:28 06/11/21 03:28 Labs: Abnormal Lab Results - Last 24 Hours (Table) 06/11/21 06/11/21 06/12/21 Range/Units 16:36 20:01 00:44 POC Glucose (mg/dL) 362 H 258 H 308 H (75-99) mg/dL 06/12/21 06/12/21 06/12/21 Range/Units 05:10 08:46 11:56 POC Glucose (mg/dL) 329 H 287 H 211 H (75-99) mg/dL
[2021-06-12] MEDS: HYDROcodone/APAP 5-325MG 1 EACH TAB PO PRN (13:46)
[2021-06-12] MEDS: ONDANSETRON 4 MG/2 ML VIAL IVP PRN (13:58)
--- NOTE | 2021-06-12 14:00 | P.PN ---
Subjective Progress Note Date: 06/12/21 This is a 36-year-old old female, seen in the emergency room, room 10. The patient was just discharged out of the hospital yesterday, May 16. The patient apparently returned to the emergency room, with a low blood sugar. She was brought in by EMS. She apparently has no memory of why she was in the ospital. She apparently was hungry when she came into the ER. She complained of back pain. Her blood glucose on arrival was 36. The patient was in the hospital recently for a left-sided pneumonia. The patient also has a history of diabetes with diabetic ketoacidosis. The patient is currently on O2 at 2 L. She's getting D5 0.9 at 75 mL an hour. She was given Augmentin, but we discontinued it in favor of Zosyn. The patient has a history of diabetes, diabetic neuropathy, chronic low back pain, migraine cephalgia, chronic constipation, and prior MRSA infection. White count 21.9, hemoglobin 8.8, hematocrit 28.7, and platelet count 474,000. Sodium 129, potassium 4.4, chlorides 102, CO2 24, anion gap 3, BUN 7, with a creatinine of 0.29. Albumin is 2. Urine is light yellow in color, and cloudy, leukocyte esterase being small positive, 9 WBCs, and rare bacteria. Drug screen is negative. Testing for ling virus was negative. Chest x-ray shows bilateral pneumonia, with dense consolidation within the left lung, and much less infiltrate in the right base. Progress note dated 05/18/2021. This is a 36-year-old female, who was seen in the emergency department in consultation yesterday, and room 10. The patient was recently discharged from the hospital on May 16. She was brought back in for mental status changes, and a low blood sugar. Apparently her blood glucose was only 36. Her prior admission was for diabetic ketoacidosis, and left-sided ammonia. Currently, she is back to her normal self. The patient is on 4 L nasal O2. She's not complaining of any respiratory distress or difficulty. She has a dry nonproductive cough. She was placed on Zosyn yesterday by our team. She was seen by infectious diseases. She has a history of diabetes, diabetic neuropathy , chronic low back pain, migraine cephalgia, chronic constipation, and prior MRSA infection. Currently, white count 19.3, he will been 7.2, hematocrit 24, and platelet count 449,000. Sodium 133, potassium 3.8, chlorides 100, CO2 21, anion gap 12, UN 7, and creatinine 0.4. Pro-calcitonin level is 0.15. C- reactive protein is 5.7. On today's evaluation of 05/19/2021, the patient is doing well. The patient is awake and alert. No signs of any significant respiratory distress. The patient was restarted back on IV Zosyn. The chest x-ray showed extensive consolidation of the left lung and the CAT scan of the chest also confirmed the same findings. The patient was Hospital as because of hypoglycemia. The patient altered mentation and she recovered fully. She is currently on Levemir 20 units along with sliding scale coverage. She is also on D5 water running at 100 mL an hour. Antibiotic coverage with IV Zosyn. Blood work shows a white cell count 12.4 with hemoglobin 8.5, BUN is at 5 with a creatinine of 0.4 and his sodium is at 134 with a potassium level of 3.3. The COVID 19 test that was negative. Urine drug screen was negative. Pro-calcitonin level has been consistently low. A focused on level was at 0.15. The patient currently is on oxygen 4 L per minute nasal cannula. She is afebrile. She is medically and hemodynamically stable at this point in time. She has poor dental conditions and poor oral hygiene. She has also developed some ulceration over the tip of the tongue probably related to candidal infection. On 2021, the patient's condition decompensated and the patient got transferred to the intensive care unit for respiratory support. Overnight, the patient became progressively more hypoxemic and short of breath. She was given a dose of Lasix 40 mg IV push without any much improvement. She was becoming also more lethargic and short of breath. She got transferred to the ICU. Currently she is on a BiPAP at a pressure of 12/6 cm of water with an FiO2 of 100%. Her Pulse Ox Is 99%. A Chest X-Ray Showed Extensive Consolidation of the Left Lung. There Are Some Air Bronchograms on the Left. At the Same Time There Are Some Air Pockets in the Left [place] Which Makes Me Concerned about an Underlying Cavitation/Abscess Formation. At the Same Time, There Is Progression of the Airspace Disease and There Is Development of New Patchy Opacities in the Right Midlung and the Right Lower Lung. Note That the Patient Was Covered with IV Zosyn for Any Potential Aspiration Pneumonia.Pro-Calcitonin Level Was at 0.15. Currently She Is on BiPAP Which Is Quite Comfortable. She instructed BiPAP dependent. The patient easily decompensates and desaturates 1 she's taken off the BiPAP. Note that she also had extensive oropharyngeal candidiasis and ulceration of the tongue for which she was given Diflucan. I added cold solution on her yesterday. She is unable to do adequate oral care as the patient is BiPAP dependent. In terms of IV fluids, the patient is on D5 water running at 40 mL an hour. This was started due to concerns of underlying episodes of hypoglycemia. She is a very brittle diabetic. Her blood sugars are all over the place. She is currently on Levemir insulin 20 units a day along with a sliding scale coverage. The Levemir insulin was given today. She is not eating much at this point in time as the patient is BiPAP dependent. Other blood work, her white cell count of 19.0 which is higher compared to yesterday. Hemoglobin is at 7.8. The blood gas while on 100% BiPAP initially showed a pH of 7.37 with a pCO2 of 46 and pO2 of 50. Current saturations up to 90%. Sodium is at 130 with a potassium level of 3.4 and a serum bicarb of 23 with a mean of 4 and a creatinine of 0.4. Her albumin is down to 2.0 with a total protein of 5.7. Cultures for now are negative in terms of blood culture. Note that the patient had MRSA and E. coli and strep in her urine back in 05/09/2021. She has also has had a previous MRSA wound infection involving the scalp. She is arousable. She is a bit lethargic. No agitation. On 05/21/2021 patient seen in follow-up in the intensive care unit, she currently remains on BiPAP support as of 12 and 600%, and her pulse ox is 99- 100%, she is awake and alert, oriented 3, she is extremely thirsty and hungry, does not appear to be in any acute distress, no complaints of worsening dyspnea, she seems to be breathing comfortably, nursing staff reports that patient was able to come off the BiPAP support to take sips of water, oral care, and pills, and patient tolerates being off BiPAP support better although she does desaturate. She is afebrile, hemodynamically she is stable, she remains on a combination of meropenem and vancomycin and Diflucan which were modified yesterday. Blood cultures have been negative thus far, she's been afebrile, no hemoptysis, no complaints of chest discomfort. Produced 5.2 L in urine output in response to Lasix, and she is in -3.8 L net fluid balance over the last 24 hours, today's chest x-ray has been reviewed, showing stable diffuse bilateral airspace disease. Absent been reviewed, white blood cell count is 20.2, hemoglobin is 7.9, platelet count is 482, serum sodium is 133, potassium 3.7, chloride is 104, CO2 is 24, B1 is 5 creatinine 0.42. Her last pro-calcitonin level from 05/18/2021 was 0.15. On 05/22/2021 patient seen in follow-up in intensive care unit, last night during an episode of getting cleaned up after having a bowel movement patient complained of not feeling well, she certainly became unresponsive, she started desaturating, her respirations became very agonal and rapid response team was called for ERIC BLUE. There was no seizure activity noted prior to the event, patient was not desaturating just prior to that, no arrhythmias were noted other than bradycardia after she had started desaturating. During the code patient did not lose her pulse, her pulse ox was down to 66% on high flow Airvo, she was emergently intubated and placed on mechanical ventilator, chest x-ray shows severe ARDS, she was hypotensive and received IV fluids and received norepinephrine infusion which is currently still infusing at 0.06 mics per kilo per minute, she was not hypoglycemic and her blood sugar at that time was 177, she had D5W infusing at 40, and she was starting to take in some oral intake. This morning she is sedated, intubated on assist control mode of ventilation with a rate of 16, tidal, 350, FiO2 is currently at 50% and PEEP of 8, this morning's blood gas shows pO2 of 102, pCO2 of 43, pH is 7.34, this was done on 70% FiO2 which had since been dropped down to 50%, this morning's chest x-ray was reviewed showing moderately severe pulmonary air space edema, without significant change compared to yesterday. The patient is in sinus mechanism, blood pressure is 112/72, currently on meropenem, vancomycin and Diflucan for aspiration pneumonia, blood cultures have been negative, patient has not been able to produce a sputum culture for us. Her labs reveal white blood cell count of 26.8 which is increased since yesterday from 20.2, hemoglobin of 7.9, platelet count of 530, sodium is 134, potassium is 4.0, chloride is 107, CO2 is 21, BUN is 7 creatinine 0.52, her glucose this morning is 203, LFTs were within normal limits, her last pro-calcitonin level from a few days ago was 0.15. Yesterday patient was given a liter bolus after she became intubated, she is producing urine in the order of 30-75 ML per hour, her Lasix is on hold. On 05/23/2021 patient seen in follow-up in the intensive care unit, she is sedated, intubated on mechanical ventilator with a assist control mode of ventilation and rate of 16, tidal emesis 50, FiO2 of 60% and PEEP of 8, this morning's blood gas was reviewed showing O2 of 154, pCO2 of 45, and pH of 7.37. Is currently on Diprivan at 40 mics per kilo per minute, Levaquin is at 3 mics per minute, 0.9 saline at any ML per hour. Today's chest x-ray showing persistent but improving bilateral airspace disease, right greater than left. There is some blood work has been reviewed showing white blood cell count of 13.4, hemoglobin of 7.3, sodium of 140, potassium is 3.9, chloride is 110, CO2 of 22, BUN of 6, creatinine of 0.62, this morning his glucose was 221. Recent have fevers overnight with a T-max of 101.5F. She currently remains on combination of meropenem, vancomycin and Diflucan. Patient is status post bronchoscopy and bronchoalveolar lavage on 05/22/2021, and BAL cultures are still pending. Gram stain showed no organisms thus far. Patient is tolerating tube feedings with vital HP at a rate of 20 ML per hour, Orellana catheter is in place, and patient is producing urine in the order of 50 to 100 mL per hour. On 05/24/2021 , is being seen for a follow-up. Note that the patient was extubated successfully yesterday. Extubation process went fine and the patient was doing very well on a nasal cannula oxygen. At around midnight, the patient acutely decompensated. She became short of breath and hypoxic. Her blood. This was done that showed acute respiratory acidosis with a pH of 7.24 with a pCO2 of 67 and pO2 of 80 and this was identified to 100%. He became acutely unresponsive and significant respiratory distress was noted by the nursing staff. At that point, it was decided that he intubated the patient. The patient is currently intubated on a mechanical ventilator. The patient is sedated with propofol which is running at 30 mcg/kg per minute to maintain synchrony with the mechanical ventilator. She is on assist control mode at the rate of 25, tidal volume of 350, FiO2 has been weaned down to 50% and the patient currently is in a PEEP of 10. Post intubation blood gases showed a pH of 7.48 with a pCO2 of 43 and pO2 of more than 400 and this was on FiO2 100%. Morning blood work also showed a drop in hemoglobin down to 6.1 from a baseline of 7.3. No evidence of any acute bleeding. No evidence of any hematemesis or melanotic stools. The patient will be given a total of 2 units of packed RBCs. Also, the patient is covered with broad-spectrum antibiotics patient remains on a combination of meropenem, vancomycin and Diflucan. The cultures from the bronchioloalveolar lavage was done earlier came back all negative. The repeat chest x-ray from today is showing adequate placement of the orotracheal tube. The patient continues to have bilateral pulmonary infiltrates. However, there is significant interval improvement in the bilateral pulmonary infiltrates compared to earlier chest x-rays. The white cycles of 7.12. Renal function is stable with a creatinine of 0.5 and a BUN of 7. Sodium level is at 144. Potassium level is at 3.2 and a K level will be replaced. The patient was restarted again on enteral feeding and this will be restarted today. Meanwhile, in terms of blood sugar control, the patient is receiving Levemir insulin 20 units once a day and a sliding scale coverage. Blood sugars have been maintained adequately and her most recent blood sugar currently is at 172. Her vancomycin felt level from today was 28. 05/25/2021, the patient is awake even on a low dose of propofol at 30 mcg/kg per minute. She is following commands. She wants to get the tube out. She is on a mechanical ventilator at the rate of 25, tidal volumes of 350, PEEP is at 10 and FiO2 is currently at 40%. PH is at 7.48 with a pCO2 of 43 and pO2 of 113. The lavage from the lungs did not yield any microbial growth. The patient continues to have diffuse bilateral pulmonary infiltrates and there is extensive consolidation bilaterally more so on the right. White secondary to 6.7. Hemoglobin is at 10.1 platelet count is at 356. Creatinine stable at 0.4. BUN is at 7. Sodium is at 139. LFTs are normal. Blood sugars at 168. The patient remains on a broad-spectrum antibiotic coverage. The patient is receiving IV Diflucan, IV vancomycin and IV meropenem. There was always the concern of aspiration in this patient as the patient developed initially extensive left lung consolidation subsequently infiltrates moved to the right. The bronchoscopy was done yielded no significant respiratory secretions or microbial growth at this point in time. She is on Levemir insulin and a sliding scale coverage. She is on no pressors for now. She is is slightly positive over the past 24 hours. The patient was receiving enteral feeding for nutritional support. She is currently on vital high protein at the rate of 20 mL an hour. No hypoglycemic attacks. As mentioned, she is easily arousable and she is moving all 4 extremities without any limitation. No fever. No significant leukocytosis. All of the cultures are negative. She remains on D5W at the rate of 75 mL an hour. No reported abdominal pain. LFTs are normal. Ultrasound abdomen showed a questionable gallbladder wall thickening and a calculus cholecystitis. On 05/26/2021 patient seen in follow-up in the intensive care unit, she is currently sedated, and intubated, on assist-control mode of ventilation with a rate of 25, tidal 350, FiO2 of 50% and PEEP of 5, this morning's blood gas shows pO2 of 55, pCO2 of 41, and pH of 7.54 and this was done and FiO2 of 40% and subsequently FiO2 was increased to 55%. She's currently on point and within indurated 20 ML per hour, norepinephrine drip has been off for over 12 hours, and improving and is at 30 mics per kilo per minute, she is on a vital high protein at a rate of 20 with standard water flushes 30 mL every 4 hours, today's chest x-ray has been reviewed showing bilateral multifocal confluent opacities. No significant change from one day earlier. Patient remains on a combination of antibiotics with Zosyn, vancomycin and Diflucan. Patient is status post bron choscopy with bronchoalveolar lavage on 05/22/2021, and so far BAL cultures are all negative, sputum and blood cultures and urine were all negative. Today's labs have been reviewed, white blood cell count is improved and is down to 7.3, hemoglobin is 9.8, sodium is 137, potassium is 3.4, chloride is 105, BUN is 8, creatinine 0.53. Hemodynamic patient is stable, she is in sinus mechanism, she has had no acute events overnight. No febrile episodes. He is currently likely sedated, she is opening eyes to verbal stimulation, and she seems to be following simple commands. Her LFTs are within normal limits. On 05/27/2021 patient seen in follow-up in the intensive care unit, she is lightly sedated, she opens her eyes to voice, she is following simple commands, does not appear to be in any acute distress, she still intubated, on assist- control mode of ventilation with a rate of 25, Tylenol level was 350, FiO2 of 50% and PEEP of 5, this morning's blood gas shows pO2 of 85, pCO2 44, and pH of 7.52. This was done on the above-mentioned ventilator settings. Today's chest x-ray changed to show patchy bilateral lung infiltrates that are stable in appearance. Vital signs have been stable overnight, no fever, no chills. All of her cultures including BAL cultures remained negative. Patient remains on a combination of antibiotics with Diflucan, Zosyn and vancomycin. She did require small dose of norepinephrine on which she remains, currently infusing at a rate of 3.9 mics per minute. Current blood pressure is 140/89, and norepinephrine can be discontinued. Urine output is in the order of 50 TOPD ML per hour. Patient is receiving the program at 30 mics per kilo per minute, and IV fluids are 0.9 normal saline at a rate of 20 ML per hour, she is tolerating tube feedings with vital AF at a rate of 36 with a goal of 36 and standard water flushes. Today's labs have been reviewed showing white blood cell, 7.4, hemoglobin of 10.4, platelet count of 377, sodium is 137, potassium is 3.4, chloride is 105, CO2 of 33, BUN of 9 creatinine 0.56 On 05/28/2021 patient is seen in follow-up in the intensive care unit, she is slightly sedated, she is awake, alert, she is following command, she still intubated on mechanical ventilator, on assist control mode of ventilation with a rate of 25, tidal volume 350, FiO2 of 40% and PEEP of 5. This was blood gas shows pO2 of 76, P CO2 of 43, and pH is 7.53 this was done on the above- mentioned ventilator settings, she is currently on 30 mics of dopamine, 0.9 normal seen at a rate of 20 ML per hour, tube feedings have been placed on hold for tracheostomy and PEG tube placement possibly today, she is hemodynamically stable, not requiring any vasopressor support. She is in sinus mechanism with a rate of 76 BPM, he had no acute events overnight, today's chest x-ray showing no evident pneumothorax, bilateral airspace disease similar to the prior exam, she said no fever or chills, vital signs have been stable overnight, she said no acute events, remains on the same antibiotics with a combination of Diflucan, Zosyn. Ankle Meissen has been discontinued, ID service is following. Her BAL cultures have shown no growth, urine, and blood cultures have been negative as well. Today's labs have been reviewed, her white blood cell count is 6.8, hemoglobin is 9.4, sodium is 137, potassium is 4.2, chloride is 105, CO2 is 23, BUN of 9, creatinine 0.59. On 05/29/2021 patient seen in follow-up in intensive care unit, she received a tracheostomy and PEG tube placement this morning, she is recovering from the procedure very well, she is resting comfortably in bed, she is currently likely sedated on 30 mics of dopamine, she is opening her eyes to voice, she is following simple commands, she is moving her hands, she is able to final tester with both hands, she is moving her feet. Generally patient is very weak. But does not appear to be in any acute distress, midline tracheostomy in place, incisions clean dry and intact, patient also received a PEG tube. Her tube feedings are on hold, she remains on Diflucan, she remains on Zosyn for empiric antibiotic coverage. All of patient's blood cultures BAL cultures and sputum cultures have remained negative to date. She's had no fever or chills. She is currently on assist control mode of ventilation with a rate of 25, tidal vital 350, FiO2 100%, and PEEP of 5. Prior to her procedure this morning patient was on the same ventilator settings with the exception of FiO2 which was at 40%, her morning blood gases were reviewed showing pO2 of 79, pCO2 41, pH is 7.50, this was done on 40% FiO2, currently patient is saturating at 100% on a heart percent FiO2 and PEEP of 5. Breathing comfortably, and her FiO2 was dropped down to 60% and -50%. Chest x-ray showing bilateral multifocal and confluent opacities greatest in the right lung no significant change compared to one day earlier. Patient has been off norepinephrine for 48 hours, to prevent is infusing at 30 mics per kilo per minute, 0.9 normal saline at a rate of 20 ML per hour, she is in sinus mechanism with a rate of 90-100 bpm, his labs have been reviewed with blood cell count is 7.5, hemoglobin is 9.4, platelet count was 386, sodium is 134, the rest of electrolytes and renal profile are unremarkable. On 05/30/2021 patient is seen in follow-up in the intensive care unit, she status post tracheostomy and PEG tube placement yesterday on 05/29/2021, she tolerated procedure very well, she is currently on pressure support of 10, FiO2 of 40%, CPAP 5, she tolerated it very well, this morning's blood gas has been reviewed, pO2 of 79, pCO2 of 50, and pH of 7.39. Chest x-ray yesterday showed bilateral multifocal and confluent opacities without significant change from the day earlier, no need for another chest x-ray today, we'll obtain follow-up chest x-ray for tomorrow. She is currently off the prevent, and sedation has been off since yesterday. She is on 0.9 normal saline at a rate of 20 ML per hour, she remains on a combination of antibiotics was Diflucan and Zosyn, all of her cultures including BAL cultures have remained negative, she has been stable overnight, she's been afebrile, no complaint of chest discomfort. No hemoptysis. Today's labs have been reviewed showing white blood cell count of 11.3, hemoglobin of 9.6, platelet count of 474, sodium is 135, the rest of electrolytes and renal profile are within normal limits, BUN is 8, creatinine 0.59. Patient is supposed to be restarted on tube feedings. She is awake and alert, in no acute distress, she's been hemodynamically stable, not requiring any vasopressor support, she is following all commands, seems to be in good spirits. She's had no acute events overnight. On 06/02/2021 patient seen in follow-up in the intensive care unit, she is awake and alert, in no acute distress, patient received a tracheostomy and PEG tube placement on 05/29/2021, she had since tolerated trach collar at 60%, she is breathing comfortably, she denies any acute distress, her chest x-ray today showing patchy and confluent bilateral airspace disease, right greater than left, with slight interval worsening. Vital signs have been stable overnight, on 60% trach collar her pulse ox is 96-100%. She is afebrile, hemodynamically she has remained stable. She is on 0.9 normal saline at a rate of 75 ML per hour, apparently her tube feedings have been placed on hold related to some high residuals. Patient remains on antibiotics in the form of Zosyn and fluconazole, all her cultures including BAL cultures remain negative thus far. Today's labs have been reviewed, white blood cell count is 9.1, hemoglobin is 8.9, sodium is 140, potassium is 3.4, the rest is actually some renal profile are unremarkable. LFTs are within normal limits, follow-up pro-calcitonin level is 0.42, slightly improved from the previous value of 0.48. On 06/09/2021 patient seen in follow-up on medical surgical floor, she is resting comfortably in bed, is currently on 60% trach collar, and her pulse ox is 100%, breathing very comfortably, lung sounds reveal a few scattered rhonchi, right greater than left. No complaints of chest discomfort, no hemoptysis, vital signs have been stable, she is awake and alert, following commands and, responding appropriately, denies any acute distress. Patient had a CT of the chest on 06/08/2021, showing multifocal pneumonia, no evidence of a large central pulmonary embolism, and moderate right and small left pleural effusions with adjacent atelectasis. Clinically patient has been stable, for cultures including blood, BAL, urine culture and sputum cultures have shown no growth. Patient has completed antibiotics, and currently she is off all antibiotics, she remains on nebulized rhonchi with diabetes with DuoNeb. Blood work from yesterday has been reviewed, her Lamictal, is improving, is down to 10.04, hemoglobin is 8.0, electrolytes and renal profile are unremarkable, for follow- up pro-calcitonin is negative at 0.11. PEG tube is in place, and patient is tolerating tube feeding she is receiving Vital AF at 50 ML per hour. On 06/10/2021 patient seen in follow-up on medical surgical floor. She is awake, in no acute distress, breathing comfortably, she is currently on 60% FiO2, her pulse ox is 95%, minimal secretions out of the tracheostomy. She is tolerating her tube feedings, she's had no acute events overnight, no fever or chills, minimal scattered rhonchi. Patient has completed her antibiotics. Vital signs have been stable. No altered mentation, no acute events overnight, she's been participating with therapy. She was accepted to inpatient rehab at the [facility]. On 06/11/2021 patient is seen in follow-up on medical surgical floor. She is breathing comfortable, she is currently on 40% trach we switched her cannula to a fenestrated cannula, and a speaking valve. However patient still having some secretions, and overall she wasn't too comfortable with the speaking valve being on. She does better with just occluding the tracheostomy with her finger and speaking. Lung sounds are clear, no rhonchi or wheezing. Vital signs have been stable, patient did not qualify for inpatient rehab, discharge planning is in progress for discharge to [facility]. Otherwise no acute events overnight, she has completed all antibiotics. She has been suctioned on as-needed basis by the respiratory therapy a couple times a day. She's had no fever or chills. She is tolerating her tube feedings On 06/12/2021 patient seen in follow-up on medical surgical floor, she is sitting up in the recliner, her mother is at the bedside, patient's crit 40% trach, tolerating it well. No worsening dyspnea or cough, lung sounds are diminished, no rhonchi or wheezing today's exam. Yesterday we trialed the patient on a fenestrated cannula, and inserted a speaking valve however patient did not like it, and requested a speaking valve to be removed. We left a fenestrated cannula in, however today we're told that the RT switched it to a regular non-fenestrated cannula in view of secretions. However the secretions will not hurt the fenestrated cannula and patient can be still suctioned with a fenestrated cannula in place. She remains on nebulized bronchodilators, she has completed her antibiotics, vital signs have been stable, no fever or chills. Her last chest x-ray from yesterday showing diffuse interstitial changes airspace disease throughout the right lung with some improvement. Yesterday's labs been reviewed, with a total count was improving with to 7.9, hemoglobin is 7.8, platelet count was 454, sodium is 138, potassium is 4.1, chloride is 104, C O2 31, BUN is 22 creatinine 0.32. Objective - Vital Signs Vital signs: Vital Signs Temp 97.6 F 06/12/21 07:34 Pulse 119 H 06/12/21 12:38 Resp 20 06/12/21 07:34 BP 128/75 06/12/21 07:34 Pulse Ox 100 06/12/21 07:34 Intake & Output 06/11/21 06/12/21 06/12/21 18:59 06:59 18:59 Intake Total 500 Balance 500 Weight 39.6 kg Intake: Tube Feeding 500 Other: # Voids 1 2 # Bowel Movements 1 2 - Exam GENERAL EXAM: Awake and alert, oriented 3 , 40% trach collar, 36-year-old frail looking white female, on 40% trach collar with a pulse ox of 96-100% comfortable in no apparent distress. HEAD: Normocephalic/atraumatic. EYES: Normal reaction of pupils, equal size. Conjunctiva pink, sclera white. NOSE: Clear with pink turbinates. MOUTH: She has ulcerations of her oral cavity THROAT: No erythema or exudates. NECK: No masses, no JVD, no thyroid enlargement, no adenopathy. Midline tracheostomy in place, on is on 60% trach collar, breathing comfortably patient is clean dry and intact CHEST: No chest wall deformity. Symmetrical expansion. LUNGS: diminished air entry with crackles, no wheeze, no rhonchi or dullness. CVS: Regular rate and rhythm, normal S1 and S2, no gallops, no murmurs, no rubs ABDOMEN: Soft, nontender. No hepatosplenomegaly, normal bowel sounds, no guarding or rigidity. PEG tube insertion site is clean dry and intact, patient is receiving tube feedings in the form of vital area at 50 ML per hour, tolerating tube feedings well. EXTREMITIES: No clubbing, no edema, no cyanosis, 2+ pulses and upper and lower extremities. MUSCULOSKELETAL: Muscle strength and tone normal. SPINE: No scoliosis or deformity SKIN: No rashes CENTRAL NERVOUS SYSTEM: Awake and alert, following command No focal deficits, tone is normal in all 4 extremities. - Labs CBC & Chem 7: 06/11/21 03:28 06/11/21 03:28 Labs: Abnormal Lab Results - Last 24 Hours (Table) 06/11/21 06/11/21 06/12/21 Range/Units 16:36 20:01 00:44 POC Glucose (mg/dL) 362 H 258 H 308 H (75-99) mg/dL 06/12/21 06/12/21 06/12/21 Range/Units 05:10 08:46 11:56 POC Glucose (mg/dL) 329 H 287 H 211 H (75-99) mg/dL Assessment and Plan Plan: Assessment: #1. Acute hypoxic respiratory failure related to worsening and progression of pneumonia, and chest x-ray showing patchy consolidation involving the right midlung, right upper lobe and right lower lobe in addition to extensive consolidation of the left lung with possibly some cavitation. Patient is currently covered with meropenem and vancomycin, her antibiotics have been modified yesterday, initially covered with Zosyn, patient was doing well on Airvo on 05/21/2021, was clinically improving, but suffered acute respiratory arrest on 05/21/2021 and was intubated, patient was successfully weaned and extubated on 05/23/2021 however failed again and had to be reintubated later that evening on 05/23/2021. In view of multiple episodes of respiratory failure patient will be considered for tracheostomy and PEG tube placement for weaning. Patient is status post bronchoscopy with bronchoalveolar lavage on 05/23/2021, so far BAL cultures are all negative. Patient is status post tracheostomy and PEG tube placement on 05/29/2021, tolerating pressure support trials pressure- support of 10 and CPAP of 5 on 05/29/2021, and again today on 05/30/2021. Patient has been tolerating trach collar trials, currently on 40% trach collar satting almost 100% #2. Altered mental status secondary to hypoglycemia. Patient had recovered, and she was back to baseline neurologically. #3. History of diabetes, and recent episode of diabetic ketoacidosis, recovered. Levemir insulin has been discontinued and patient is currently covered with sliding scale NovoLog, her last episode of hypoglycemia was on 05/19/2021 with a blood sugar of 45. No recurrence of hypoglycemia since #4. History of syncopal episodes related to hypoglycemia #5. History of migraine cephalgia #6. History of diabetic neuropathy #7. Chronic constipation #8. Chronic low back pain #9. Tongue and oral pharyngeal candidiasis, with ulcerations #10. Previous history of MRSA infection in the laceration of the scalp #11. Chronic anemia with interval drop in hemoglobin down to 6.1 without evidence of any active GI bleeding, patient has received 2 units of packed red blood cells this admission. Hemoglobin is 7.8 on last CBC from 06/11/2021 Plan: No worsening dyspnea or hypoxia Fio2 currently down to 40% No fever or chills, breathing comfortably Fenestrated cannula should be re-inserted, and will not hurt the entrotracheal suction Suction tracheostomy as needed Obtain speech eval to evaluate swallow Deflate the cuff on trach prior to the swallow eval Continue PEG tube to supplement nutrition even if the patient passes swallow eval Awaiting auth for transfer to the [facility] or [facility] inpatient rehab I performed a history & physical examination of the patient and discussed their management with my nurse practitioner, Dania Negron. I reviewed the nurse practitioner's note and agree with the documented findings and plan of care. Lung sounds are positive for dim breath sounds throughout the lung abbott. The findings and the impression was discussed with the patient. I attest to the documentation by the nurse practitioner. Time with Patient: Less than 30
--- NOTE | 2021-06-12 14:15 | P.PN ---
Progress Note - Text Progress Note Date: 06/12/21 Interval History: Patient was seen sitting upright in her chair beside her bed with her mother present in the room. The patient reports some improvement in her mood. As per discussion with the patient and her mother, the patient has had significant improvement in regards to her sleep as well as her desire to pick at her scalp. She had a significant decrease in this behavior. She is currently not reporting any suicidal or homicidal ideation, intention, and/or plan. She is not reporting any auditory or visual hallucinations. She denies any paranoia or other delusions. The patient has been adherent to medications and is not endorsing any significant side effects at this time. Mental Status Exam: General Appearance: Patient appears to be stated age is alert, directable, and cooperative. Patient is wearing a shower That is covering the lesion on her scalp. Behavior: Patient is calmly seated without any agitated behavior. Eye contact is appropriate. Speech: Patient is unable to speak due to PEG tube placement. Mood/Affect: Mood is "better" Affect appears to be constricted in range but overall improved. Suicidality/Homicidality: Patient denies having any suicidal or homicidal ideation intent or plan. Perceptions: Patient denies any visual hallucinations and denies any auditory hallucinations Though content/process: There is no evidence of any delusional thought content and thought process is linear and goal-directed. Memory and concentration: AOX3, grossly intact for the purposes of this session Judgment and insight: Improving mildly Vital Signs Temp 98 F 06/12/21 13:45 Pulse 111 H 06/12/21 13:45 Resp 20 06/12/21 13:45 BP 114/79 06/12/21 13:45 Pulse Ox 96 06/12/21 13:45 Intake & Output 06/11/21 06/12/21 06/12/21 18:59 06:59 18:59 Intake Total 500 Balance 500 Weight 39.6 kg Intake: Tube Feeding 500 Other: # Voids 1 2 # Bowel Movements 1 2 Laboratory Results - Last 24 Hours 06/11/21 06/11/21 06/12/21 16:36 20:01 00:44 POC Glucose (mg/dL) 362 H 258 H 308 H POC Glu Aemt ID Tessa Adams, Lauren Parker 06/12/21 06/12/21 06/12/21 05:10 08:46 11:56 POC Glucose (mg/dL) 329 H 287 H 211 H POC Glu Aemt ID Lauren Jaramillo Makailey Vantiem, Makailey Assessment Adjustment disorder with mixed anxiety and depressed mood Excoriation disorder History of major depressive disorder Plan: -Continue your medical management. -At this time patient DOES NOT meet criteria for inpatient psychiatric admission. -Would recommend the following medication changes/additions: Restoril 15 mg at bedtime for 7 more days. Prozac 40 mg by mouth daily for depression/anxiety/excoriation disorder -Psychiatry will sign off at this time. Intravenous consult. If any questions or concerns please contact us.
[2021-06-12 15:59] LABS: Glucose,Whole Blood 144 mg/dL (75-99)
[2021-06-12] MEDS: METOCLOPRAMIDE 5 MG/ML 2 ML VIAL IVP PRN (16:16)
[2021-06-12 20:03] LABS: Glucose,Whole Blood 206 mg/dL (75-99)
[2021-06-12] MEDS: MONTELUKAST 10 MG TAB PO SCH (20:41)
[2021-06-12] MEDS: TEMAZEPAM 15 MG CAP PO SCH (20:41)
[2021-06-12] MEDS: HYDROmorphone 1 MG/ML 1 ML SYRINGE IVP PRN (20:49)
[2021-06-12 23:59] LABS: Glucose,Whole Blood 237 mg/dL (75-99)
[2021-06-13] MEDS: INSULIN ASPART (NovoLOG) 100 UNIT/ML VIAL SQ SCH ×5 (00:20→16:35)
--- NOTE | 2021-06-13 00:35 | P.PN ---
Subjective Progress Note Date: 06/12/21 This is a 36-year-old female who was recently admitted with changes in mental status along with significant hypoglycemia and is being closely monitored. Patient continues on 100% BiPAP with continued dyspnea and pulmonary following closely. Patient also found to have bilateral pneumonia possible aspiration and also a fungal urinary tract infection. Patient continues in the ICU for close monitoring and infectious disease is also following. Patient continues on IV antibiotics in the form of meropenem along with fluconazole and vancomycin and will continue. Multiple family members at the bedside. Recommend repeat chest x-ray along with labs in the morning. White blood Count elevated at 19.1. Potassium is 3.4 and magnesium 1.6 and will replace per protocol. 05/21/2021 She is seen in follow-up continues to be in the ICU being closely monitored. Patient was maintained on BiPAP and attempting airvo to allow for oral intake. Only at the bedside with multiple questions and concerns answered to the best of our ability. Patient's mentation is improved and answering questions and responding to commands appropriately. Chest x-ray today shows bilateral diffuse airspace disease with small effusion, stable with no pneumothorax noted. Infectious disease following an patient is continued on IV fluconazole along with meropenem. Blood cultures remain negative. Blood count is mildly elevated at 20.2. Patient is afebrile. Recommend repeat labs and chest x-ray in the a.m. She denies any chest pains or palpitations at this time. Patient tolerating oral intake and recommend strict aspiration precautions of head of the bed elevated 30-45 at all times and supervision with meals. 05/22/2021 Patient is seen in follow up and being closely monitored in the ICU with multiple medical consultations following. Patient was an A team this morning for acute respiratory arrest that was witnessed by nursing staff at the bedside and was changing the patient after a bowel movement and became apneic and code blue was initiated. Patient did not lose pulse but was intubated and placed on sedation. Chest xray showed moderately severe pulmonary edema without change compared to yesterday. Patient was given a dose of lasix. Patient is on some pressor support as well. Pulmonary following and patient underwent bronchoscopy with fluid analysis sent and pending. Patient is continued on IV merrem and vancomycin with ID following closely. Await finalized cultures. WBC elevated as well at 26.8. 05/23/2021 Patient is seen and evaluated this morning and continues in critical condition in the ICU. Mother at the bedside and patient was extubated this morning. Patient is currently resting on 2L of02 via NC with oxygen saturation above 90%. Patient is extremely lethargic but arousable. Chest xray shows persistent but improving airspace disease, right greater than left. Mother is at the bedside. May Patient is seen and evaluated today in follow-up continues to be in the ICU being closely monitored. Patient continues on mechanical vent with sedation and attempts at weaning continue. Pulmonary and ID following closely. Patient continues with FI02 of 60%. Patient also continues on IV fluconazole and Zosyn and will continue. Chest xray today shows bilateral multifocal and confluent opacities redemonstrated consistent with covid 19 infection and or ARDS is redemonstrated with no significant change from yesterday. 05/27/2021 Patient is seen and evaluated this morning and continues on mechanical ventilation and lightly sedated on propofol although patient is awake and following commands although fatigues easily. General surgery consulted for PEG and trach placement for pulmonary slitter service and setter recommendations. Infectious disease following an patient is maintained on fluconazole along with IV Zosyn and will continue. Patient continues with multiple episodes of loose stool with fecal management system and C. diff testing is ordered. Potassium mildly low at 3.4 and will replace per protocol. Magnesium is 2.2 today. Chest x-ray today shows patchy bilateral lung infiltrates that are stable. 05/28/2021 Patient is seen in follow-up in the ICU continues to be closely monitored with multiple medical consultations following. Plan for today was possible peg and trach placement although surgery extremely busy and will likely occur tomorrow. Patient continues on IV abx with ID following closely. Patient continues on mechanical vent with an FI02 of 50%. Minimally sedated. 05/29/2021 Patient is seen this morning status post PEG tube and tracheostomy placement and continues on mechanical vent with an FiO2 of 50% and PEEP is 5. Mother at the bedside with questions and concerns answered. PEG tube on hold currently for 24 hours and awaiting clearance from surgery to start tube feedings. Chest x-ray today shows bilateral multifocal and confluent opacification greatest in the right lung are redemonstrated consistent with COVID-19 and/or arts with no significant change from previous day. Patient is awake and nodding yes and no appropriately. 05/30/2021 Patient is seen today currently sitting up in the chair and recently placed on trach collar as she is status post tracheostomy and PEG tube placement yesterday. Tube feedings were started on the PEG tube although patient became nauseated and currently on hold and will continue to monitor. Patient continues with loose stool and does have fecal management system that is intact. Recommen d to keep the rectal tubing as patient experiences more frequent episodes of loose stool with feedings. Trach collar is 50% FiO2. Patient continues on IV zosyn with ID following. 05/31/2021 Patient evaluated today in the ICU resting in bed. [place] catheter and fecal management system in place. Oxygenation maintained on trach collar with Fi02 of 50% and oxygen saturation of 96%. Patient does present with congested cough. She is nauseas today and feels like she wants to throw up. Nurse reports minimal residual volumes with feedings. Tube feedings were placed on hold, and she will be placed to suction via PEG tube. Concerns for aspiration. She is getting IV zofran and IV protonix. Repeat chest xray today shows slight interval worsening of multifocal airspace opacities right greater than left. Labs today show WBC 15.2, hgb 9.2, platelet count 533, sodium 137, potassium 4.2, glucose in the 180s. Patient with low grade fever 99.3, heart rate 108, respirations 17, blood pressure 116/73, 96% on trach collar. All cultures negative. Continues on IV Zosyn and IV fluconazole. 06/01/2021 Patient evaluated today in bed with HOB around 30. Per RN she was up in the chair yesterday. Indwelling catheter and Fecal management system in place. Patient is on trach colloar with FiO2 50% with oxygen saturation of 97%. Blood pressures are marginal at 98/76, respirations 14, heart rate 105, afebrile. Patient to feedings were placed on hold yesterday with PEG tube to suction. She still complains of ongoing nausea which is not improved. She is no longer dry heaving on my assessment. Patient is in a negative fluid balance. We will start patient's IV hydration with normal saline at 75 mL per hour. She continues on IV Zofran. She is also on IV Tylenol, IV fluconazole, IV Zosyn. Chest x-ray shows correlation for pneumonia. Blood fungal culture is currently pending. 06/02/2021 Patient is seen and evaluated in follow up this morning and continues to be in the ICU being closely monitored. Patient is currently up in the chair and on trach collar at 60% although per nursing staff being weaned down to 40%. Patient persists with nausea and having high residuals and tube feeds on hold. Reglan scheduled being added and will resume tube feeds once nausea improves and start slowly on tube feeds. Chest xray today shows patchy and confluent bilateral airspace disease right greater than left that shows slight interval worsening. Patient remains on IV zosyn and fluconazole with ID following as well. 06/03/2021 Patient is seen in follow-up this morning lethargic although arousable and continues on trach collar and tolerating well at 60% FiO2. Currently being titrated down to 40% and oxygen saturations remained above 95%. Patient is afebrile and no reports of worsening shortness of breath or chest pain. Chest x-ray today shows stable portable chest with diffuse bilateral patchy infiltrates persist and unchanged and pleural effusion also unchanged. Multiple medical consultations including general surgery, infectious disease and pulmonary slitter service and setter following. Family is now agreeable to [facility] for some rehab for strength and mobility and social work following and working on accepting facility. Patient continues on antifungal and is off IV antibiotics with infectious disease following closely. 06/04/2021 Patient is seen this morning in follow-up continues on a trach collar with an FiO2 of 40% and tolerating well. continues with secretion and suctioning. Patient continues to be withdrawn and does have an extensive history of depression and is frustrated with prolonged hospitalization and misses her children. No new chest xray today or labs and will repeat in the am. Psychiatry consulted to evaluate the possible need for medication adjustments and appreciat e input and recommendations. social work following and looking on accepting facilities. Patient may likely need LTAC. Patient also continues to pick nervously at scalp of which has been ongoing but worsening since admission. Will add bacitracin and encouraged the patient to avoid picking. 06/05/2021 Patient is seen today continues to be in the ICU maintaining oxygen saturations are trach collar with an FiO2 of 40% chest x-ray continues to show bilateral airspace disease right greater than left without significant change. Multiple medical consultations following including psychiatry and has made some adjustments to medications and added sleep aid. Patient continues to pick at her scalp and is worsening although does not appear infected. Wound care consulted and appreciate input and recommendations. Patient currently awaiting a bed out of the ICU and SNF acceptance that can manage a trach collar. 06/06/2021 Patient is seen this morning and is on the med/surg floor and is tolerating trach collar at 40%. Pulmonary, psychiatry, and ID following. Patient continues to be weak and is working with physical therapy daily. Patient currently has a cap over her scalp which appears to be somewhat helping with her excessive picking of the wound. Continue local wound care. Patient appears in better spirits today. Spoke with mother today at the bedside about finding a suitable SNF or facility that has respiratory therapy on staff to assist with trach care and frequent suctioning that she has been requiring. Patient is currently off antibiotics and afebrile. No new labs from today and will order repeat labs along with a chest xray. Continue close monitoring of blood sugars as well and current medication regimen. 06/09/2021 Patient is seen this morning in follow-up continues to be on trach collar at 60%. Patient tolerating tube feedings although having some intermittent periods of nausea and will continue with Reglan and/or Zofran and continue tube feedings. Patient is working with physical therapy daily and have placed a consult for [facility] inpatient rehab with Dr. Shipman reactive social work following as well working on discharge planning. Pulmonary slitter service and setter foll owing as well and patient is stable from their standpoint for discharge to inpatient rehab facility. Patient is weak and has had prolonged hospitalization and would greatly benefit from an inpatient rehab with close monitoring of multiple medical issues as patient is considered critically ill. 06/10/2021 Patient is seen and evaluated today and continues on trach collar with an FiO2 of 60% and flow rate is 10 and maintaining oxygen saturations of 95%. Per nursing staff patient had some reported episodes of hypoglycemia although patient was asymptomatic and denied any feelings of blood sugar being low and was as low as 29-33 and given an amp of dextrose. Patient will be started on gentle IV hydration with dextrose and will continue with sliding scale and Accu- Cheks before meals and at bedtime and as needed and will discontinue long-acting for now and closely monitor. Patient also having some diffuse abdominal pain and intermittent nausea with no reports of vomiting and tube feeds on hold and will be resumed per protocol. 06/11/2021 Patient is seen this morning currently working with physical therapy and has been daily. Patient continues on trach collar with an FiO2 of 40% and maintaining oxygen saturation above 92%. Patient's blood sugars in the high 180s to 200s with one episode of 353 last night and is maintained on IV saline with D5 at 75 ML per hour and will wean and continue with sliding scale for now. Long-acting on hold currently. Patient tolerating tube feedings and is at goal. Chest X-ray today shows diffuse interstitial opacification and patchy confluent opacification throughout the right lung with these opacification is becoming less compliant from prior exam with no pleural effusion and showing some improvement. Pulmonary along with psychiatry and PT/OT therapy following. ID following as well and monitoring closely off IV antibiotics. 06/12/2021 Patient is evaluated today and much more cheerful today. Patient continues on trach collar at 40% FI02 and tolerating. Suctioning as needed. Patient continues on dilaudid and will add norco and attempt to avoid IV dilaudid. Patient blood sugars rising and maintained on sliding scale. IV fluids with d5 and will discontinue. Continue to hold long acting for now and recommend close monitoring of accuchecks. Speech consulted for swallow eval and is pending. Review of systems: Constitutional: no reports of fatigue, no reports of fever, or chills Cardiovascular: No reports of chest pain or palpitations Respiratory: No reports shortness of breath or cough status post tracheostomy and trach collar GI: reports of intermittent nausea, no reports of vomiting, reports continued loose stool with slight improvement : No reports of dysuria or retention Neurovascular: Reports of generalized weakness All medications have been reviewed Active Medications Acetaminophen (Acetaminophen Tab 325 Mg Tab) 650 mg PO Q6HR PRN PRN Reason: Fever and/ or Mild Pain Last Admin: 05/23/21 04:35 Dose: 650 mg Documented by: Hydrocodone Bitart/Acetaminophen (Hydrocodone/Apap 5-325mg 1 Each Tab) 1 each PO Q6HR PRN PRN Reason: Pain Last Admin: 06/12/21 13:46 Dose: 1 each Documented by: Albuterol/Ipratropium (Ipratropium-Albuterol 3 Ml Neb) 3 ml INHALATION RT-TID SILVER Last Admin: 06/12/21 21:35 Dose: 3 ml Documented by: Cholecalciferol (Cholecalciferol 25 Mcg (1000 Iu) Tablet) 50 mcg PO DAILY [facility] Last Admin: 06/12/21 09:01 Dose: 50 mcg Documented by: Fluoxetine HCl (Fluoxetine Hcl 20 Mg Cap) 40 mg PO DAILY [facility] Last Admin: 06/12/21 09:01 Dose: 40 mg Documented by: Folic Acid (Folic Acid 1 Mg Tab) 1 mg PO DAILY@1200 [facility] Last Admin: 06/12/21 09:01 Dose: 1 mg Documented by: Hydromorphone HCl (Hydromorphone 1 Mg/Ml 1 Ml Syringe) 0.5 mg IVP Q4H PRN PRN Reason: Severe Pain Last Admin: 06/12/21 20:49 Dose: 0.5 mg Documented by: Insulin Aspart (Insulin Aspart (Novolog) 100 Unit/Ml Vial) 0 unit SQ Q4H [facility]; Protocol Last Admin: 06/13/21 00:20 Dose: 3 unit Documented by: Metoclopramide HCl (Metoclopramide 5 Mg/Ml 2 Ml Vial) 5 mg IVP Q6HR PRN PRN Reason: Nausea And Vomiting Last Admin: 06/12/21 16:16 Dose: 5 mg Documented by: Miscellaneous Information (Magnesium Replacement Protocol 1 Each Misc) 1 each MISCELLANE DAILY PRN; Protocol PRN Reason: Per Protocol Miscellaneous Information (Potassium Replacement Protocol 1 Each Misc) 1 each MISCELLANE DAILY PRN; Protocol PRN Reason: Per Protocol Montelukast Sodium (Montelukast 10 Mg Tab) 10 mg PO HS [facility] Last Admin: 06/12/21 20:41 Dose: 10 mg Documented by: Multivitamins (Multivitamins, Thera 1 Each Tab) 1 each PO DAILY@1200 [facility] Last Admin: 06/12/21 09:01 Dose: 1 each Documented by: Ondansetron HCl (Ondansetron 4 Mg/2 Ml Vial) 4 mg IVP Q6HR PRN PRN Reason: Nausea And Vomiting Last Admin: 06/12/21 13:58 Dose: 4 mg Documented by: Pantoprazole Sodium (Pantoprazole 40 Mg/10 Ml Vial) 40 mg IVP DAILY [facility] Last Admin: 06/12/21 09:00 Dose: 40 mg Documented by: Pregabalin (Pregabalin 75 Mg Cap) 75 mg PO TID [facility] Last Admin: 06/12/21 20:41 Dose: 75 mg Documented by: Sumatriptan Succinate (Sumatriptan Succinate 50 Mg Tab) 100 mg PO DAILY PRN PRN Reason: Migraine Headache Temazepam (Temazepam 15 Mg Cap) 15 mg PO [facility] Stop: 06/18/21 21:01 Last Admin: 06/12/21 20:41 Dose: 15 mg Documented by: Thiamine HCl (Thiamine 100 Mg Tab) 100 mg PO BID-W/MEALS [facility] Last Admin: 06/12/21 16:17 Dose: 100 mg Documented by: Physical Exam: Gen: This is a 36-year-old female who is awake, alert and oriented x3. Status post tracheostomy placement, thin built, cachectic. on 40% FiO2 trach collar HEENT: Head is atraumatic, normocephalic. Pupils equal, round. Sclerae is anicteric. oral mucosa moist NECK: Supple. No JVD. No lymphadenopathy. No thyromegaly. tracheostomy and collar noted LUNGS: Breath sounds diminished with scattered rhonchi noted. No intercostal retractions. HEART: S1, S2 are muffled ABDOMEN: Soft. Bowel sounds are present. No masses. No tenderness. peg tube noted EXTREMITIES: No pedal edema. No calf tenderness. NEUROLOGICAL: Patient is awake, alert and oriented x3. Diffusely weak. Nodding yes and no to questions and commands appropriately. 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, isolated Acute hypoglycemia, improved Severe hypokalemia, resolved Severe hyponatremia, resolved Fungal urinary tract infection, treated, ID following patient off antibiotics Severe protein calorie malnutrition with a body mass index of 16.0 diabetes mellitus type I, uncontrolled with hypoglycemia, improved Stage II pressure injury right upper arm with stage III Coccyx documented by nurse Hypoalbuminemia Anemia of unknown etiology Anxiety, depression Gait dysfunction Medical debility secondary to prolonged hospitalization Myopathy Full code Plan: Recommend to continue with current medications and follow along closely with multiple medical consultations. Infectious disease is also following and patient is maintained off antibiotic therapy Social work also following working on discharge planning and possible inpatient rehab versus some form of skilled facility that can assist and accommodate trach collar care and monitoring. Awaiting insurance appeal. Recommend to continue closely monitoring blood sugars and Accu-Cheks before meals and at bedtime and as needed and will continue with sliding scale for now and will discontinue D5 0.9. Again due to multiple complex medical issues, prognosis is guarded. Objective - Vital Signs Vital signs: Vital Signs Temp 97.6 F 06/12/21 07:34 Pulse 129 H 06/12/21 07:34 Resp 20 06/12/21 07:34 BP 128/75 06/12/21 07:34 Pulse Ox 100 06/12/21 07:34 Intake & Output 06/11/21 06/12/21 06/12/21 18:59 06:59 18:59 Intake Total 500 Balance 500 Weight 39.6 kg Intake: Tube Feeding 500 Other: # Voids 1 2 # Bowel Movements 1 2 - Labs CBC & Chem 7: 06/11/21 03:28 06/11/21 03:28 Labs: Abnormal Lab Results - Last 24 Hours (Table) 06/11/21 06/11/21 06/11/21 Range/Units 11:52 16:36 20:01 POC Glucose (mg/dL) 264 H 362 H 258 H (75-99) mg/dL 06/12/21 06/12/21 06/12/21 Range/Units 00:44 05:10 08:46 POC Glucose (mg/dL) 308 H 329 H 287 H (75-99) mg/dL
[2021-06-13] MEDS: HYDROcodone/APAP 5-325MG 1 EACH TAB PO PRN ×3 (02:13→16:35)
[2021-06-13 04:31] LABS: Glucose,Whole Blood 249 mg/dL (75-99)
[2021-06-13] MEDS: ONDANSETRON 4 MG/2 ML VIAL IVP PRN ×2 (04:40→11:40)
[2021-06-13] MEDS: HYDROmorphone 1 MG/ML 1 ML SYRINGE IVP PRN (05:54)
[2021-06-13 07:06] LABS: Glucose,Whole Blood 267 mg/dL (75-99)
[2021-06-13] MEDS: PREGABALIN 75 MG CAP PO SCH ×2 (08:15→16:34)
[2021-06-13] MEDS: THIAMINE 100 MG TAB PO SCH ×2 (08:16→16:34)
[2021-06-13] MEDS: FLUoxetine HCL 20 MG CAP PO SCH (08:16)
[2021-06-13] MEDS: PANTOPRAZOLE 40 MG/10 ML VIAL IVP SCH (08:18)
[2021-06-13] MEDS: METOCLOPRAMIDE 5 MG/ML 2 ML VIAL IVP PRN (08:44)
[2021-06-13] MEDS: IPRATROPIUM-ALBUTEROL 3 ML NEB INHALATION SCH ×2 (08:53→12:22)
[2021-06-13 11:09] LABS: Glucose,Whole Blood 164 mg/dL (75-99)
[2021-06-13] MEDS: FOLIC ACID 1 MG TAB PO SCH (11:40)
[2021-06-13] MEDS: MULTIVITAMINS, THERA 1 EACH TAB PO SCH (11:40)
[2021-06-13 12:56] VITALS: BMI 16.5
--- NOTE | 2021-06-13 13:37 | P.PN ---
Subjective Progress Note Date: 06/13/21 This is a 36-year-old old female, seen in the emergency room, room 10. The patient was just discharged out of the hospital yesterday, May 16. The patient apparently returned to the emergency room, with a low blood sugar. She was brought in by EMS. She apparently has no memory of why she was in the ospital. She apparently was hungry when she came into the ER. She complained of back pain. Her blood glucose on arrival was 36. The patient was in the hospital recently for a left-sided pneumonia. The patient also has a history of diabetes with diabetic ketoacidosis. The patient is currently on O2 at 2 L. She's getting D5 0.9 at 75 mL an hour. She was given Augmentin, but we discontinued it in favor of Zosyn. The patient has a history of diabetes, diabetic neuropathy, chronic low back pain, migraine cephalgia, chronic constipation, and prior MRSA infection. White count 21.9, hemoglobin 8.8, hematocrit 28.7, and platelet count 474,000. Sodium 129, potassium 4.4, chlorides 102, CO2 24, anion gap 3, BUN 7, with a creatinine of 0.29. Albumin is 2. Urine is light yellow in color, and cloudy, leukocyte esterase being small positive, 9 WBCs, and rare bacteria. Drug screen is negative. Testing for ling virus was negative. Chest x-ray shows bilateral pneumonia, with dense consolidation within the left lung, and much less infiltrate in the right base. Progress note dated 05/18/2021. This is a 36-year-old female, who was seen in the emergency department in consultation yesterday, and room 10. The patient was recently discharged from the hospital on May 16. She was brought back in for mental status changes, and a low blood sugar. Apparently her blood glucose was only 36. Her prior admission was for diabetic ketoacidosis, and left-sided ammonia. Currently, she is back to her normal self. The patient is on 4 L nasal O2. She's not complaining of any respiratory distress or difficulty. She has a dry nonproductive cough. She was placed on Zosyn yesterday by our team. She was seen by infectious diseases. She has a history of diabetes, diabetic neuropathy , chronic low back pain, migraine cephalgia, chronic constipation, and prior MRSA infection. Currently, white count 19.3, he will been 7.2, hematocrit 24, and platelet count 449,000. Sodium 133, potassium 3.8, chlorides 100, CO2 21, anion gap 12, UN 7, and creatinine 0.4. Pro-calcitonin level is 0.15. C- reactive protein is 5.7. On today's evaluation of 05/19/2021, the patient is doing well. The patient is awake and alert. No signs of any significant respiratory distress. The patient was restarted back on IV Zosyn. The chest x-ray showed extensive consolidation of the left lung and the CAT scan of the chest also confirmed the same findings. The patient was Hospital as because of hypoglycemia. The patient altered mentation and she recovered fully. She is currently on Levemir 20 units along with sliding scale coverage. She is also on D5 water running at 100 mL an hour. Antibiotic coverage with IV Zosyn. Blood work shows a white cell count 12.4 with hemoglobin 8.5, BUN is at 5 with a creatinine of 0.4 and his sodium is at 134 with a potassium level of 3.3. The COVID 19 test that was negative. Urine drug screen was negative. Pro-calcitonin level has been consistently low. A focused on level was at 0.15. The patient currently is on oxygen 4 L per minute nasal cannula. She is afebrile. She is medically and hemodynamically stable at this point in time. She has poor dental conditions and poor oral hygiene. She has also developed some ulceration over the tip of the tongue probably related to candidal infection. On 2021, the patient's condition decompensated and the patient got transferred to the intensive care unit for respiratory support. Overnight, the patient became progressively more hypoxemic and short of breath. She was given a dose of Lasix 40 mg IV push without any much improvement. She was becoming also more lethargic and short of breath. She got transferred to the ICU. Currently she is on a BiPAP at a pressure of 12/6 cm of water with an FiO2 of 100%. Her Pulse Ox Is 99%. A Chest X-Ray Showed Extensive Consolidation of the Left Lung. There Are Some Air Bronchograms on the Left. At the Same Time There Are Some Air Pockets in the Left [place] Which Makes Me Concerned about an Underlying Cavitation/Abscess Formation. At the Same Time, There Is Progression of the Airspace Disease and There Is Development of New Patchy Opacities in the Right Midlung and the Right Lower Lung. Note That the Patient Was Covered with IV Zosyn for Any Potential Aspiration Pneumonia.Pro-Calcitonin Level Was at 0.15. Currently She Is on BiPAP Which Is Quite Comfortable. She instructed BiPAP dependent. The patient easily decompensates and desaturates 1 she's taken off the BiPAP. Note that she also had extensive oropharyngeal candidiasis and ulceration of the tongue for which she was given Diflucan. I added cold solution on her yesterday. She is unable to do adequate oral care as the patient is BiPAP dependent. In terms of IV fluids, the patient is on D5 water running at 40 mL an hour. This was started due to concerns of underlying episodes of hypoglycemia. She is a very brittle diabetic. Her blood sugars are all over the place. She is currently on Levemir insulin 20 units a day along with a sliding scale coverage. The Levemir insulin was given today. She is not eating much at this point in time as the patient is BiPAP dependent. Other blood work, her white cell count of 19.0 which is higher compared to yesterday. Hemoglobin is at 7.8. The blood gas while on 100% BiPAP initially showed a pH of 7.37 with a pCO2 of 46 and pO2 of 50. Current saturations up to 90%. Sodium is at 130 with a potassium level of 3.4 and a serum bicarb of 23 with a mean of 4 and a creatinine of 0.4. Her albumin is down to 2.0 with a total protein of 5.7. Cultures for now are negative in terms of blood culture. Note that the patient had MRSA and E. coli and strep in her urine back in 05/09/2021. She has also has had a previous MRSA wound infection involving the scalp. She is arousable. She is a bit lethargic. No agitation. On 05/21/2021 patient seen in follow-up in the intensive care unit, she currently remains on BiPAP support as of 12 and 600%, and her pulse ox is 99- 100%, she is awake and alert, oriented 3, she is extremely thirsty and hungry, does not appear to be in any acute distress, no complaints of worsening dyspnea, she seems to be breathing comfortably, nursing staff reports that patient was able to come off the BiPAP support to take sips of water, oral care, and pills, and patient tolerates being off BiPAP support better although she does desaturate. She is afebrile, hemodynamically she is stable, she remains on a combination of meropenem and vancomycin and Diflucan which were modified yesterday. Blood cultures have been negative thus far, she's been afebrile, no hemoptysis, no complaints of chest discomfort. Produced 5.2 L in urine output in response to Lasix, and she is in -3.8 L net fluid balance over the last 24 hours, today's chest x-ray has been reviewed, showing stable diffuse bilateral airspace disease. Absent been reviewed, white blood cell count is 20.2, hemoglobin is 7.9, platelet count is 482, serum sodium is 133, potassium 3.7, chloride is 104, CO2 is 24, B1 is 5 creatinine 0.42. Her last pro-calcitonin level from 05/18/2021 was 0.15. On 05/22/2021 patient seen in follow-up in intensive care unit, last night during an episode of getting cleaned up after having a bowel movement patient complained of not feeling well, she certainly became unresponsive, she started desaturating, her respirations became very agonal and rapid response team was called for ERIC BLUE. There was no seizure activity noted prior to the event, patient was not desaturating just prior to that, no arrhythmias were noted other than bradycardia after she had started desaturating. During the code patient did not lose her pulse, her pulse ox was down to 66% on high flow Airvo, she was emergently intubated and placed on mechanical ventilator, chest x-ray shows severe ARDS, she was hypotensive and received IV fluids and received norepinephrine infusion which is currently still infusing at 0.06 mics per kilo per minute, she was not hypoglycemic and her blood sugar at that time was 177, she had D5W infusing at 40, and she was starting to take in some oral intake. This morning she is sedated, intubated on assist control mode of ventilation with a rate of 16, tidal, 350, FiO2 is currently at 50% and PEEP of 8, this morning's blood gas shows pO2 of 102, pCO2 of 43, pH is 7.34, this was done on 70% FiO2 which had since been dropped down to 50%, this morning's chest x-ray was reviewed showing moderately severe pulmonary air space edema, without significant change compared to yesterday. The patient is in sinus mechanism, blood pressure is 112/72, currently on meropenem, vancomycin and Diflucan for aspiration pneumonia, blood cultures have been negative, patient has not been able to produce a sputum culture for us. Her labs reveal white blood cell count of 26.8 which is increased since yesterday from 20.2, hemoglobin of 7.9, platelet count of 530, sodium is 134, potassium is 4.0, chloride is 107, CO2 is 21, BUN is 7 creatinine 0.52, her glucose this morning is 203, LFTs were within normal limits, her last pro-calcitonin level from a few days ago was 0.15. Yesterday patient was given a liter bolus after she became intubated, she is producing urine in the order of 30-75 ML per hour, her Lasix is on hold. On 05/23/2021 patient seen in follow-up in the intensive care unit, she is sedated, intubated on mechanical ventilator with a assist control mode of ventilation and rate of 16, tidal emesis 50, FiO2 of 60% and PEEP of 8, this morning's blood gas was reviewed showing O2 of 154, pCO2 of 45, and pH of 7.37. Is currently on Diprivan at 40 mics per kilo per minute, Levaquin is at 3 mics per minute, 0.9 saline at any ML per hour. Today's chest x-ray showing persistent but improving bilateral airspace disease, right greater than left. There is some blood work has been reviewed showing white blood cell count of 13.4, hemoglobin of 7.3, sodium of 140, potassium is 3.9, chloride is 110, CO2 of 22, BUN of 6, creatinine of 0.62, this morning his glucose was 221. Recent have fevers overnight with a T-max of 101.5F. She currently remains on combination of meropenem, vancomycin and Diflucan. Patient is status post bronchoscopy and bronchoalveolar lavage on 05/22/2021, and BAL cultures are still pending. Gram stain showed no organisms thus far. Patient is tolerating tube feedings with vital HP at a rate of 20 ML per hour, Orellana catheter is in place, and patient is producing urine in the order of 50 to 100 mL per hour. On 05/24/2021 , is being seen for a follow-up. Note that the patient was extubated successfully yesterday. Extubation process went fine and the patient was doing very well on a nasal cannula oxygen. At around midnight, the patient acutely decompensated. She became short of breath and hypoxic. Her blood. This was done that showed acute respiratory acidosis with a pH of 7.24 with a pCO2 of 67 and pO2 of 80 and this was identified to 100%. He became acutely unresponsive and significant respiratory distress was noted by the nursing staff. At that point, it was decided that he intubated the patient. The patient is currently intubated on a mechanical ventilator. The patient is sedated with propofol which is running at 30 mcg/kg per minute to maintain synchrony with the mechanical ventilator. She is on assist control mode at the rate of 25, tidal volume of 350, FiO2 has been weaned down to 50% and the patient currently is in a PEEP of 10. Post intubation blood gases showed a pH of 7.48 with a pCO2 of 43 and pO2 of more than 400 and this was on FiO2 100%. Morning blood work also showed a drop in hemoglobin down to 6.1 from a baseline of 7.3. No evidence of any acute bleeding. No evidence of any hematemesis or melanotic stools. The patient will be given a total of 2 units of packed RBCs. Also, the patient is covered with broad-spectrum antibiotics patient remains on a combination of meropenem, vancomycin and Diflucan. The cultures from the bronchioloalveolar lavage was done earlier came back all negative. The repeat chest x-ray from today is showing adequate placement of the orotracheal tube. The patient continues to have bilateral pulmonary infiltrates. However, there is significant interval improvement in the bilateral pulmonary infiltrates compared to earlier chest x-rays. The white cycles of 7.12. Renal function is stable with a creatinine of 0.5 and a BUN of 7. Sodium level is at 144. Potassium level is at 3.2 and a K level will be replaced. The patient was restarted again on enteral feeding and this will be restarted today. Meanwhile, in terms of blood sugar control, the patient is receiving Levemir insulin 20 units once a day and a sliding scale coverage. Blood sugars have been maintained adequately and her most recent blood sugar currently is at 172. Her vancomycin felt level from today was 28. 05/25/2021, the patient is awake even on a low dose of propofol at 30 mcg/kg per minute. She is following commands. She wants to get the tube out. She is on a mechanical ventilator at the rate of 25, tidal volumes of 350, PEEP is at 10 and FiO2 is currently at 40%. PH is at 7.48 with a pCO2 of 43 and pO2 of 113. The lavage from the lungs did not yield any microbial growth. The patient continues to have diffuse bilateral pulmonary infiltrates and there is extensive consolidation bilaterally more so on the right. White secondary to 6.7. Hemoglobin is at 10.1 platelet count is at 356. Creatinine stable at 0.4. BUN is at 7. Sodium is at 139. LFTs are normal. Blood sugars at 168. The patient remains on a broad-spectrum antibiotic coverage. The patient is receiving IV Diflucan, IV vancomycin and IV meropenem. There was always the concern of aspiration in this patient as the patient developed initially extensive left lung consolidation subsequently infiltrates moved to the right. The bronchoscopy was done yielded no significant respiratory secretions or microbial growth at this point in time. She is on Levemir insulin and a sliding scale coverage. She is on no pressors for now. She is is slightly positive over the past 24 hours. The patient was receiving enteral feeding for nutritional support. She is currently on vital high protein at the rate of 20 mL an hour. No hypoglycemic attacks. As mentioned, she is easily arousable and she is moving all 4 extremities without any limitation. No fever. No significant leukocytosis. All of the cultures are negative. She remains on D5W at the rate of 75 mL an hour. No reported abdominal pain. LFTs are normal. Ultrasound abdomen showed a questionable gallbladder wall thickening and a calculus cholecystitis. On 05/26/2021 patient seen in follow-up in the intensive care unit, she is currently sedated, and intubated, on assist-control mode of ventilation with a rate of 25, tidal 350, FiO2 of 50% and PEEP of 5, this morning's blood gas shows pO2 of 55, pCO2 of 41, and pH of 7.54 and this was done and FiO2 of 40% and subsequently FiO2 was increased to 55%. She's currently on point and within indurated 20 ML per hour, norepinephrine drip has been off for over 12 hours, and improving and is at 30 mics per kilo per minute, she is on a vital high protein at a rate of 20 with standard water flushes 30 mL every 4 hours, today's chest x-ray has been reviewed showing bilateral multifocal confluent opacities. No significant change from one day earlier. Patient remains on a combination of antibiotics with Zosyn, vancomycin and Diflucan. Patient is status post bron choscopy with bronchoalveolar lavage on 05/22/2021, and so far BAL cultures are all negative, sputum and blood cultures and urine were all negative. Today's labs have been reviewed, white blood cell count is improved and is down to 7.3, hemoglobin is 9.8, sodium is 137, potassium is 3.4, chloride is 105, BUN is 8, creatinine 0.53. Hemodynamic patient is stable, she is in sinus mechanism, she has had no acute events overnight. No febrile episodes. He is currently likely sedated, she is opening eyes to verbal stimulation, and she seems to be following simple commands. Her LFTs are within normal limits. On 05/27/2021 patient seen in follow-up in the intensive care unit, she is lightly sedated, she opens her eyes to voice, she is following simple commands, does not appear to be in any acute distress, she still intubated, on assist- control mode of ventilation with a rate of 25, Tylenol level was 350, FiO2 of 50% and PEEP of 5, this morning's blood gas shows pO2 of 85, pCO2 44, and pH of 7.52. This was done on the above-mentioned ventilator settings. Today's chest x-ray changed to show patchy bilateral lung infiltrates that are stable in appearance. Vital signs have been stable overnight, no fever, no chills. All of her cultures including BAL cultures remained negative. Patient remains on a combination of antibiotics with Diflucan, Zosyn and vancomycin. She did require small dose of norepinephrine on which she remains, currently infusing at a rate of 3.9 mics per minute. Current blood pressure is 140/89, and norepinephrine can be discontinued. Urine output is in the order of 50 TOPD ML per hour. Patient is receiving the program at 30 mics per kilo per minute, and IV fluids are 0.9 normal saline at a rate of 20 ML per hour, she is tolerating tube feedings with vital AF at a rate of 36 with a goal of 36 and standard water flushes. Today's labs have been reviewed showing white blood cell, 7.4, hemoglobin of 10.4, platelet count of 377, sodium is 137, potassium is 3.4, chloride is 105, CO2 of 33, BUN of 9 creatinine 0.56 On 05/28/2021 patient is seen in follow-up in the intensive care unit, she is slightly sedated, she is awake, alert, she is following command, she still intubated on mechanical ventilator, on assist control mode of ventilation with a rate of 25, tidal volume 350, FiO2 of 40% and PEEP of 5. This was blood gas shows pO2 of 76, P CO2 of 43, and pH is 7.53 this was done on the above- mentioned ventilator settings, she is currently on 30 mics of dopamine, 0.9 normal seen at a rate of 20 ML per hour, tube feedings have been placed on hold for tracheostomy and PEG tube placement possibly today, she is hemodynamically stable, not requiring any vasopressor support. She is in sinus mechanism with a rate of 76 BPM, he had no acute events overnight, today's chest x-ray showing no evident pneumothorax, bilateral airspace disease similar to the prior exam, she said no fever or chills, vital signs have been stable overnight, she said no acute events, remains on the same antibiotics with a combination of Diflucan, Zosyn. Ankle Meissen has been discontinued, ID service is following. Her BAL cultures have shown no growth, urine, and blood cultures have been negative as well. Today's labs have been reviewed, her white blood cell count is 6.8, hemoglobin is 9.4, sodium is 137, potassium is 4.2, chloride is 105, CO2 is 23, BUN of 9, creatinine 0.59. 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 Generally patient is very weak. But does not appear to be in any acute distress, midline tracheostomy in place, incisions clean dry and intact, patient also received a PEG tube. Her tube feedings are on hold, she remains on Diflucan, she remains on Zosyn for empiric antibiotic coverage. All of patient's blood cultures BAL cultures and sputum cultures have remained negative to date. She's had no fever or chills. She is currently on assist control mode of ventilation with a rate of 25, tidal vital 350, FiO2 100%, and PEEP of 5. Prior to her procedure this morning patient was on the same ventilator settings with the exception of FiO2 which was at 40%, her morning blood gases were reviewed showing pO2 of 79, pCO2 41, pH is 7.50, this was done on 40% FiO2, currently patient is saturating at 100% on a heart percent FiO2 and PEEP of 5. Breathing comfortably, and her FiO2 was dropped down to 60% and -50%. Chest x-ray showing bilateral multifocal and confluent opacities greatest in the right lung no significant change compared to one day earlier. Patient has been off norepinephrine for 48 hours, to prevent is infusing at 30 mics per kilo per minute, 0.9 normal saline at a rate of 20 ML per hour, she is in sinus mechanism with a rate of 90-100 bpm, his labs have been reviewed with blood cell count is 7.5, hemoglobin is 9.4, platelet count was 386, sodium is 134, the rest of electrolytes and renal profile are unremarkable. On 05/30/2021 patient is seen in follow-up in the intensive care unit, she status post tracheostomy and PEG tube placement yesterday on 05/29/2021, she tolerated procedure very well, she is currently on pressure support of 10, FiO2 of 40%, CPAP 5, she tolerated it very well, this morning's blood gas has been reviewed, pO2 of 79, pCO2 of 50, and pH of 7.39. Chest x-ray yesterday showed bilateral multifocal and confluent opacities without significant change from the day earlier, no need for another chest x-ray today, we'll obtain follow-up chest x-ray for tomorrow. She is currently off the prevent, and sedation has been off since yesterday. She is on 0.9 normal saline at a rate of 20 ML per hour, she remains on a combination of antibiotics was Diflucan and Zosyn, all of her cultures including BAL cultures have remained negative, she has been stable overnight, she's been afebrile, no complaint of chest discomfort. No hemoptysis. Today's labs have been reviewed showing white blood cell count of 11.3, hemoglobin of 9.6, platelet count of 474, sodium is 135, the rest of electrolytes and renal profile are within normal limits, BUN is 8, creatinine 0.59. Patient is supposed to be restarted on tube feedings. She is awake and alert, in no acute distress, she's been hemodynamically stable, not requiring any vasopressor support, she is following all commands, seems to be in good spirits. She's had no acute events overnight. On 06/02/2021 patient seen in follow-up in the intensive care unit, she is awake and alert, in no acute distress, patient received a tracheostomy and PEG tube placement on 05/29/2021, she had since tolerated trach collar at 60%, she is breathing comfortably, she denies any acute distress, her chest x-ray today showing patchy and confluent bilateral airspace disease, right greater than left, with slight interval worsening. Vital signs have been stable overnight, on 60% trach collar her pulse ox is 96-100%. She is afebrile, hemodynamically she has remained stable. She is on 0.9 normal saline at a rate of 75 ML per hour, apparently her tube feedings have been placed on hold related to some high residuals. Patient remains on antibiotics in the form of Zosyn and fluconazole, all her cultures including BAL cultures remain negative thus far. Today's labs have been reviewed, white blood cell count is 9.1, hemoglobin is 8.9, sodium is 140, potassium is 3.4, the rest is actually some renal profile are unremarkable. LFTs are within normal limits, follow-up pro-calcitonin level is 0.42, slightly improved from the previous value of 0.48. On 06/09/2021 patient seen in follow-up on medical surgical floor, she is resting comfortably in bed, is currently on 60% trach collar, and her pulse ox is 100%, breathing very comfortably, lung sounds reveal a few scattered rhonchi, right greater than left. No complaints of chest discomfort, no hemoptysis, vital signs have been stable, she is awake and alert, following commands and, responding appropriately, denies any acute distress. Patient had a CT of the chest on 06/08/2021, showing multifocal pneumonia, no evidence of a large central pulmonary embolism, and moderate right and small left pleural effusions with adjacent atelectasis. Clinically patient has been stable, for cultures including blood, BAL, urine culture and sputum cultures have shown no growth. Patient has completed antibiotics, and currently she is off all antibiotics, she remains on nebulized rhonchi with diabetes with DuoNeb. Blood work from yesterday has been reviewed, her Lamictal, is improving, is down to 10.04, hemoglobin is 8.0, electrolytes and renal profile are unremarkable, for follow- up pro-calcitonin is negative at 0.11. PEG tube is in place, and patient is tolerating tube feeding she is receiving Vital AF at 50 ML per hour. On 06/10/2021 patient seen in follow-up on medical surgical floor. She is awake, in no acute distress, breathing comfortably, she is currently on 60% FiO2, her pulse ox is 95%, minimal secretions out of the tracheostomy. She is tolerating her tube feedings, she's had no acute events overnight, no fever or chills, minimal scattered rhonchi. Patient has completed her antibiotics. Vital signs have been stable. No altered mentation, no acute events overnight, she's been participating with therapy. She was accepted to inpatient rehab at the [facility]. On 06/11/2021 patient is seen in follow-up on medical surgical floor. She is breathing comfortable, she is currently on 40% trach we switched her cannula to a fenestrated cannula, and a speaking valve. However patient still having some secretions, and overall she wasn't too comfortable with the speaking valve being on. She does better with just occluding the tracheostomy with her finger and speaking. Lung sounds are clear, no rhonchi or wheezing. Vital signs have been stable, patient did not qualify for inpatient rehab, discharge planning is in progress for discharge to [facility]. Otherwise no acute events overnight, she has completed all antibiotics. She has been suctioned on as-needed basis by the respiratory therapy a couple times a day. She's had no fever or chills. She is tolerating her tube feedings On 06/12/2021 patient seen in follow-up on medical surgical floor, she is sitting up in the recliner, her mother is at the bedside, patient's crit 40% trach, tolerating it well. No worsening dyspnea or cough, lung sounds are diminished, no rhonchi or wheezing today's exam. Yesterday we trialed the patient on a fenestrated cannula, and inserted a speaking valve however patient did not like it, and requested a speaking valve to be removed. We left a fenestrated cannula in, however today we're told that the RT switched it to a regular non-fenestrated cannula in view of secretions. However the secretions will not hurt the fenestrated cannula and patient can be still suctioned with a fenestrated cannula in place. She remains on nebulized bronchodilators, she has completed her antibiotics, vital signs have been stable, no fever or chills. Her last chest x-ray from yesterday showing diffuse interstitial changes airspace disease throughout the right lung with some improvement. Yesterday's labs been reviewed, with a total count was improving with to 7.9, hemoglobin is 7.8, platelet count was 454, sodium is 138, potassium is 4.1, chloride is 104, C O2 31, BUN is 22 creatinine 0.32. On 06/13/2021 patient seen in follow-up on medical surgical floor, today she is having no slightly more secretions out of her tracheostomy, she's been suctioned on as-needed basis by the RT's. She remains on 40% trach collar, her pulse ox is between 92-96%, she's been afebrile, hemodynamically stable, lung sounds reveal diffuse rhonchi bilaterally, patient is tolerating tube feedings, she has completed all of her antibiotics. Vital signs have been stable, she is supposed to have modified barium swallow today. Objective - Vital Signs Vital signs: Vital Signs Temp 98.1 F 06/13/21 07:07 Pulse 120 H 06/13/21 12:36 Resp 18 06/13/21 07:07 BP 118/78 06/13/21 07:07 Pulse Ox 92 L 06/13/21 07:07 Intake & Output 06/12/21 06/13/21 06/13/21 18:59 06:59 18:59 Intake Total 1095 Balance 1095 Weight 39.6 kg Intake: Tube Feeding 975 Other 120 Other: # Voids 1 # Bowel Movements 6 - Exam GENERAL EXAM: Awake and alert, oriented 3 , 40% trach collar, 36-year-old frail looking white female, on 40% trach collar with a pulse ox of 96-100% comfortable in no apparent distress. HEAD: Normocephalic/atraumatic. EYES: Normal reaction of pupils, equal size. Conjunctiva pink, sclera white. NOSE: Clear with pink turbinates. MOUTH: She has ulcerations of her oral cavity THROAT: No erythema or exudates. NECK: No masses, no JVD, no thyroid enlargement, no adenopathy. Midline tracheostomy in place, on is on 60% trach collar, breathing comfortably patient is clean dry and intact CHEST: No chest wall deformity. Symmetrical expansion. LUNGS: diminished air entry with crackles, no wheeze, no rhonchi or dullness. CVS: Regular rate and rhythm, normal S1 and S2, no gallops, no murmurs, no rubs ABDOMEN: Soft, nontender. No hepatosplenomegaly, normal bowel sounds, no guarding or rigidity. PEG tube insertion site is clean dry and intact, patient is receiving tube feedings in the form of vital area at 50 ML per hour, tolerating tube feedings well. EXTREMITIES: No clubbing, no edema, no cyanosis, 2+ pulses and upper and lower extremities. MUSCULOSKELETAL: Muscle strength and tone normal. SPINE: No scoliosis or deformity SKIN: No rashes CENTRAL NERVOUS SYSTEM: Awake and alert, following command No focal deficits, tone is normal in all 4 extremities. - Labs CBC & Chem 7: 06/11/21 03:28 06/11/21 03:28 Labs: Abnormal Lab Results - Last 24 Hours (Table) 06/12/21 06/12/21 06/12/21 Range/Units 15:57 20:01 23:58 POC Glucose (mg/dL) 144 H 206 H 237 H (75-99) mg/dL 06/13/21 06/13/21 06/13/21 Range/Units 04:29 07:03 11:07 POC Glucose (mg/dL) 249 H 267 H 164 H (75-99) mg/dL Microbiology - Last 24 Hours (Table) 05/24/21 17:23 Blood Fungal Culture - Preliminary Blood 05/22/21 09:44 Fungal Culture - Preliminary Bronchial Washings - Right Assessment and Plan Plan: Assessment: #1. Acute hypoxic respiratory failure related to worsening and progression of pneumonia, and chest x-ray showing patchy consolidation involving the right midlung, right upper lobe and right lower lobe in addition to extensive consolidation of the left lung with possibly some cavitation. Patient is currently covered with meropenem and vancomycin, her antibiotics have been modified yesterday, initially covered with Zosyn, patient was doing well on Airvo on 05/21/2021, was clinically improving, but suffered acute respiratory arrest on 05/21/2021 and was intubated, patient was successfully weaned and extubated on 05/23/2021 however failed again and had to be reintubated later that evening on 05/23/2021. In view of multiple episodes of respiratory failure patient will be considered for tracheostomy and PEG tube placement for weaning. Patient is status post bronchoscopy with bronchoalveolar lavage on 05/23/2021, so far BAL cultures are all negative. Patient is status post tracheostomy and PEG tube placement on 05/29/2021, tolerating pressure support trials pressure- support of 10 and CPAP of 5 on 05/29/2021, and again today on 05/30/2021. Patient has been tolerating trach collar trials, currently on 40% trach collar satting almost 100% #2. Altered mental status secondary to hypoglycemia. Patient had recovered, and she was back to baseline neurologically. #3. History of diabetes, and recent episode of diabetic ketoacidosis, recovered. Levemir insulin has been discontinued and patient is currently c overed with sliding scale NovoLog, her last episode of hypoglycemia was on 05/19/2021 with a blood sugar of 45. No recurrence of hypoglycemia since #4. History of syncopal episodes related to hypoglycemia #5. History of migraine cephalgia #6. History of diabetic neuropathy #7. Chronic constipation #8. Chronic low back pain #9. Tongue and oral pharyngeal candidiasis, with ulcerations #10. Previous history of MRSA infection in the laceration of the scalp #11. Chronic anemia with interval drop in hemoglobin down to 6.1 without evidence of any active GI bleeding, patient has received 2 units of packed red blood cells this admission. Hemoglobin is 7.8 on last CBC from 06/11/2021 Plan: Suction tracheostomy As needed Patient is stable for modified barium swallow evaluation today Vital signs have been stable, no fever or chills Will start oral feedings. Passes modified barium swallow with supplementation with PEG tube feedings No acute events overnight, Anticipate transfer to the [facility] possibly today I performed a history & physical examination of the patient and discussed their management with my nurse practitioner, Dania Negron. I reviewed the nurse practitioner's note and agree with the documented findings and plan of care. Lung sounds are positive for dim breath sounds throughout the lung abbott. The findings and the impression was discussed with the patient. I attest to the documentation by the nurse practitioner. Time with Patient: Less than 30
[2021-06-13 14:34] VITALS: BP 113/74; PULSE 134; RESP 20; TEMP 97.5
--- NOTE | 2021-06-13 14:47 | P.PN ---
Subjective Progress Note Date: 06/13/21 CHIEF COMPLAINT: Hypoglycemia HISTORY OF PRESENT ILLNESS: Patient status post tracheostomy and PEG tube p lacement on 05/29/2021. Patient is on a medical floor. Patient is tolerating her tube feeds. She denies any abdominal pain. Denies any nausea vomiting. She is stooling. Afebrile. On trach collar patient is scheduled for discharge later today PHYSICAL EXAM: VITAL SIGNS: Reviewed. GENERAL: no acute distress. HEENT: No sclera icterus. Extraocular movements grossly intact. Moist buccal mucosa. Head is atraumatic, normocephalic. Trach site clean dry and intact ABDOMEN: Soft. Nondistended. PEG tube site clean dry and intact ASSESSMENT: 1. Acute hypoxic respiratory failure secondary to pneumonia. Patient was extubated and required to be reintubated on 05/23/2021. Patient status post tracheostomy placement 2. Severe protein calorie malnutrition. Patient status post PEG tube placement 3. Possible aspiration pneumonia PLAN: -Patient can be discharged from surgical standpoint -tube feeds per dietitian recommendations -Continue supportive care -Antibiotics per ID -Social work addressing discharge planning at subacute rehab Physician User Interface Developer note has been reviewed by physician. Signing provider agrees with the documented findings, assessment, and plan of care. Objective - Vital Signs Vital signs: Vital Signs Temp 97.5 F L 06/13/21 14:15 Pulse 134 H 06/13/21 14:15 Resp 20 06/13/21 14:15 BP 113/74 06/13/21 14:15 Pulse Ox 93 L 06/13/21 14:15 Intake & Output 06/12/21 06/13/21 06/13/21 18:59 06:59 18:59 Intake Total 1095 Balance 1095 Weight 39.6 kg Intake: Tube Feeding 975 Other 120 Other: # Voids 1 # Bowel Movements 6 - Labs CBC & Chem 7: 06/11/21 03:28 06/11/21 03:28 Labs: Abnormal Lab Results - Last 24 Hours (Table) 06/12/21 06/12/21 06/12/21 Range/Units 15:57 20:01 23:58 POC Glucose (mg/dL) 144 H 206 H 237 H (75-99) mg/dL 06/13/21 06/13/21 06/13/21 Range/Units 04:29 07:03 11:07 POC Glucose (mg/dL) 249 H 267 H 164 H (75-99) mg/dL Microbiology - Last 24 Hours (Table) 05/24/21 17:23 Blood Fungal Culture - Preliminary Blood 05/22/21 09:44 Fungal Culture - Preliminary Bronchial Washings - Right
--- NOTE | 2021-06-13 15:17 | FL ---
Modified barium swallow. HISTORY: Dysphagia. Modified barium swallow was performed with the department of speech pathology. The patient was prese nted with various consistencies of barium. Aspiration was noted with thin liquid barium in the examination subsequently discontinued. Full repor t is to follow from the department of speech pathology. Impression: Aspiration.
--- NOTE | 2021-06-13 15:42 | P.DS ---
Providers Date of admission: 05/17/21 14:55 Expected date of discharge: 06/13/21 Attending physician: Jessica Pena Consults: 05/17/21 14:17 Consult Physician Routine Consulting Provider: Akhil Pittman Consult Reason/Comments: pneumonia Do you want consulting provider notified?: Yes 05/17/21 15:18 Consult Physician Routine Consulting Provider: Darcy To Consult Reason/Comments: Leukocytosis Do you want consulting provider notified?: Yes 05/26/21 16:13 Consult Physician Routine Consulting Provider: Maximino Matias Consult Reason/Comments: trach and peg tube Do you want consulting provider notified?: Yes 06/04/21 10:15 Consult Physician Stat Consulting Provider: Wong Zarate Consult Reason/Comments: depression, med adjustment, nervous habits Do you want consulting provider notified?: Yes 06/09/21 10:59 Consult Physician Routine Consulting Provider: Jose Shipman Consult Reason/Comments: evaluate for inpatient rehab Do you want consulting provider notified?: Yes Primary care physician: Rafiq Gill Hospital Course: Discharge Dagnosis Acute bilateral pneumonia, right more than left with aspiration pneumonia with sepsis, present on admission. completed abx course. 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, isolated Acute hypoglycemia, improved Severe hypokalemia, resolved Severe hyponatremia, resolved Fungal urinary tract infection, treated, ID following patient off antibiotics Severe protein calorie malnutrition with a body mass index of 16.0 diabetes mellitus type I, uncontrolled with hypoglycemia, improved Stage II pressure injury right upper arm with stage III Coccyx documented by nurse Hypoalbuminemia Anemia of unknown etiology Anxiety, depression Gait dysfunction Medical debility secondary to prolonged hospitalization Myopathy Full code Hospital course This is a 36-year-old female who was recently admitted with changes in mental status along with significant hypoglycemia and is being closely monitored. Patient continues on 100% BiPAP with continued dyspnea and pulmonary following closely. Patient also found to have bilateral pneumonia possible aspiration and also a fungal urinary tract infection. Patient continues in the ICU for close monitoring and infectious disease is also following. Patient continues on IV antibiotics in the form of meropenem along with fluconazole and vancomycin and will continue. Multiple family members at the bedside. Recommend repeat chest x-ray along with labs in the morning. White blood Count elevated at 19.1. Potassium is 3.4 and magnesium 1.6 and will replace per protocol. 05/21/2021 She is seen in follow-up continues to be in the ICU being closely monitored. Patient was maintained on BiPAP and attempting airvo to allow for oral intake. Only at the bedside with multiple questions and concerns answered to the best of our ability. Patient's mentation is improved and answering questions and responding to commands appropriately. Chest x-ray today shows bilateral diffuse airspace disease with small effusion, stable with no pneumothorax noted. Infectious disease following an patient is continued on IV fluconazole along with meropenem. Blood cultures remain negative. Blood count is mildly elevated at 20.2. Patient is afebrile. Recommend repeat labs and chest x-ray in the a.m. She denies any chest pains or palpitations at this time. Patient tolerating oral intake and recommend strict aspiration precautions of head of the bed elevated 30-45 at all times and supervision with meals. 05/22/2021 Patient is seen in follow up and being closely monitored in the ICU with multiple medical consultations following. Patient was an A team this morning for acute respiratory arrest that was witnessed by nursing staff at the bedside and was changing the patient after a bowel movement and became apneic and code blue was initiated. Patient did not lose pulse but was intubated and placed on sedation. Chest xray showed moderately severe pulmonary edema without change compared to yesterday. Patient was given a dose of lasix. Patient is on some pressor support as well. Pulmonary following and patient underwent bronchoscopy with fluid analysis sent and pending. Patient is continued on IV merrem and vancomycin with ID following closely. Await finalized cultures. WBC elevated as well at 26.8. 05/23/2021 Patient is seen and evaluated this morning and continues in critical condition in the ICU. Mother at the bedside and patient was extubated this morning. Patient is currently resting on 2L of02 via NC with oxygen saturation above 90%. Patient is extremely lethargic but arousable. Chest xray shows persistent but improving airspace disease, right greater than left. Mother is at the bedside. May Patient is seen and evaluated today in follow-up continues to be in the ICU being closely monitored. Patient continues on mechanical vent with sedation and attempts at weaning continue. Pulmonary and ID following closely. Patient continues with FI02 of 60%. Patient also continues on IV fluconazole and Zosyn and will continue. Chest xray today shows bilateral multifocal and confluent opacities redemonstrated consistent with covid 19 infection and or ARDS is redemonstrated with no significant change from yesterday. 05/27/2021 Patient is seen and evaluated this morning and continues on mechanical ventilation and lightly sedated on propofol although patient is awake and following commands although fatigues easily. General surgery consulted for PEG and trach placement for pulmonary heat treat supervisor recommendations. Infectious disease following an patient is maintained on fluconazole along with IV Zosyn and will continue. Patient continues with multiple episodes of loose stool with fecal management system and C. diff testing is ordered. Potassium mildly low at 3.4 and will replace per protocol. Magnesium is 2.2 today. Chest x-ray today shows patchy bilateral lung infiltrates that are stable. 05/28/2021 Patient is seen in follow-up in the ICU continues to be closely monitored with multiple medical consultations following. Plan for today was possible peg and trach placement although surgery extremely busy and will likely occur tomorrow. Patient continues on IV abx with ID following closely. Patient continues on mechanical vent with an FI02 of 50%. Minimally sedated. 05/29/2021 Patient is seen this morning status post PEG tube and tracheostomy placement and continues on mechanical vent with an FiO2 of 50% and PEEP is 5. Mother at the bedside with questions and concerns answered. PEG tube on hold currently for 24 hours and awaiting clearance from surgery to start tube feedings. Chest x-ray today shows bilateral multifocal and confluent opacification greatest in the right lung are redemonstrated consistent with COVID-19 and/or arts with no significant change from previous day. Patient is awake and nodding yes and no appropriately. 05/30/2021 Patient is seen today currently sitting up in the chair and recently placed on trach collar as she is status post tracheostomy and PEG tube placement yesterday. Tube feedings were started on the PEG tube although patient became nauseated and currently on hold and will continue to monitor. Patient continues with loose stool and does have fecal management system that is intact. Recommend to keep the rectal tubing as patient experiences more frequent epis odes of loose stool with feedings. Trach collar is 50% FiO2. Patient continues on IV zosyn with ID following. 05/31/2021 Patient evaluated today in the ICU resting in bed. [place]ana catheter and fecal management system in place. Oxygenation maintained on trach collar with Fi02 of 50% and oxygen saturation of 96%. Patient does present with congested cough. She is nauseas today and feels like she wants to throw up. Nurse reports minimal residual volumes with feedings. Tube feedings were placed on hold, and she will be placed to suction via PEG tube. Concerns for aspiration. She is getting IV zofran and IV protonix. Repeat chest xray today shows slight interval worsening of multifocal airspace opacities right greater than left. Labs today show WBC 15.2, hgb 9.2, platelet count 533, sodium 137, potassium 4.2, glucose in the 180s. Patient with low grade fever 99.3, heart rate 108, respirations 17, blood pressure 116/73, 96% on trach collar. All cultures negative. Continues on IV Zosyn and IV fluconazole. 06/01/2021 Patient evaluated today in bed with HOB around 30. Per RN she was up in the chair yesterday. Indwelling catheter and Fecal management system in place. Patient is on trach colloar with FiO2 50% with oxygen saturation of 97%. Blood pressures are marginal at 98/76, respirations 14, heart rate 105, afebrile. Patient to feedings were placed on hold yesterday with PEG tube to suction. She still complains of ongoing nausea which is not improved. She is no longer dry heaving on my assessment. Patient is in a negative fluid balance. We will start patient's IV hydration with normal saline at 75 mL per hour. She continues on IV Zofran. She is also on IV Tylenol, IV fluconazole, IV Zosyn. Chest x-ray shows correlation for pneumonia. Blood fungal culture is currently pending. 06/02/2021 Patient is seen and evaluated in follow up this morning and continues to be in the ICU being closely monitored. Patient is currently up in the chair and on trach collar at 60% although per nursing staff being weaned down to 40%. Patient persists with nausea and having high residuals and tube feeds on hold. Reglan scheduled being added and will resume tube feeds once nausea improves and start slowly on tube feeds. Chest xray today shows patchy and confluent bilateral airspace disease right greater than left that shows slight interval worsening. Patient remains on IV zosyn and fluconazole with ID following as well. 06/03/2021 Patient is seen in follow-up this morning lethargic although arousable and continues on trach collar and tolerating well at 60% FiO2. Currently being titrated down to 40% and oxygen saturations remained above 95%. Patient is afebrile and no reports of worsening shortness of breath or chest pain. Chest x-ray today shows stable portable chest with diffuse bilateral patchy infiltrates persist and unchanged and pleural effusion also unchanged. Multiple medical consultations including general surgery, infectious disease and pulmonary heat treat supervisor following. Family is now agreeable to [facility] for some rehab for strength and mobility and social work following and working on accepting facility. Patient continues on antifungal and is off IV antibiotics with infectious disease following closely. 06/04/2021 Patient is seen this morning in follow-up continues on a trach collar with an FiO2 of 40% and tolerating well. continues with secretion and suctioning. Patient continues to be withdrawn and does have an extensive history of depression and is frustrated with prolonged hospitalization and misses her children. No new chest xray today or labs and will repeat in the am. Psychiatry consulted to evaluate the possible need for medication adjustments and appreciate input and recommendations. social work following and looking on acc epting facilities. Patient may likely need LTAC. Patient also continues to pick nervously at scalp of which has been ongoing but worsening since admission. Will add bacitracin and encouraged the patient to avoid picking. 06/05/2021 Patient is seen today continues to be in the ICU maintaining oxygen saturations are trach collar with an FiO2 of 40% chest x-ray continues to show bilateral airspace disease right greater than left without significant change. Multiple medical consultations following including psychiatry and has made some adjustments to medications and added sleep aid. Patient continues to pick at her scalp and is worsening although does not appear infected. Wound care consulted and appreciate input and recommendations. Patient currently awaiting a bed out of the ICU and SNF acceptance that can manage a trach collar. 06/06/2021 Patient is seen this morning and is on the med/surg floor and is tolerating trach collar at 40%. Pulmonary, psychiatry, and ID following. Patient continues to be weak and is working with physical therapy daily. Patient currently has a cap over her scalp which appears to be somewhat helping with her excessive picking of the wound. Continue local wound care. Patient appears in better spirits today. Spoke with mother today at the bedside about finding a suitable SNF or facility that has respiratory therapy on staff to assist with trach care and frequent suctioning that she has been requiring. Patient is currently off antibiotics and afebrile. No new labs from today and will order repeat labs along with a chest xray. Continue close monitoring of blood sugars as well and current medication regimen. 06/09/2021 Patient is seen this morning in follow-up continues to be on trach collar at 60%. Patient tolerating tube feedings although having some intermittent periods of nausea and will continue with Reglan and/or Zofran and continue tube feedings. Patient is working with physical therapy daily and have placed a consult for [facility] inpatient rehab with Dr. Shipman reactive social work following as well working on discharge planning. Pulmonary heat treat supervisor following as well and patient is stable from their standpoint for discharge to inpatient rehab facility. Patient is weak and has had prolonged hospitalization and would greatly benefit from an inpatient rehab with close monitoring of multiple medical issues as patient is considered critically ill. 06/10/2021 Patient is seen and evaluated today and continues on trach collar with an FiO2 of 60% and flow rate is 10 and maintaining oxygen saturations of 95%. Per nursing staff patient had some reported episodes of hypoglycemia although patient was asymptomatic and denied any feelings of blood sugar being low and was as low as 29-33 and given an amp of dextrose. Patient will be started on gentle IV hydration with dextrose and will continue with sliding scale and Accu- Cheks before meals and at bedtime and as needed and will discontinue long-acting for now and closely monitor. Patient also having some diffuse abdominal pain and intermittent nausea with no reports of vomiting and tube feeds on hold and will be resumed per protocol. 06/11/2021 Patient is seen this morning currently working with physical therapy and has been daily. Patient continues on trach collar with an FiO2 of 40% and maintaining oxygen saturation above 92%. Patient's blood sugars in the high 180s to 200s with one episode of 353 last night and is maintained on IV saline with D5 at 75 ML per hour and will wean and continue with sliding scale for now. Long-acting on hold currently. Patient tolerating tube feedings and is at goal. Chest X-ray today shows diffuse interstitial opacification and patchy confluent opacification throughout the right lung with these opacification is b ecoming less compliant from prior exam with no pleural effusion and showing some improvement. Pulmonary along with psychiatry and PT/OT therapy following. ID following as well and monitoring closely off IV antibiotics. 06/12/2021 Patient is evaluated today and much more cheerful today. Patient continues on trach collar at 40% FI02 and tolerating. Suctioning as needed. Patient continues on dilaudid and will add norco and attempt to avoid IV dilaudid. Patient blood sugars rising and maintained on sliding scale. IV fluids with d5 and will discontinue. Continue to hold long acting for now and recommend close monitoring of accuchecks. Speech consulted for swallow eval and is pending. 06/13/2021 Patient is currently lying in the bed. Awake alert and oriented. Currently on trach collar with 40% FiO2 and is saturating at 94%. Patient has been afebrile. Tolerating tube feedings. Patient did complete antibiotic course for multifocal pneumonia. she is did have modified barium swallow today but aspirated and could not complete study. c/w tube feeding c/w insulin sliding scale for blood sugar control. had hypoglycemic episodes with Levemir. Otherwise hemodynamically stable. Patient is being discharged to infection care facility today. Continue with suctioning of the trach collar as needed. Physical Exam: Gen: This is a 36-year-old female who is awake, alert and oriented x3. Status post tracheostomy placement, thin built, cachectic. on 40% FiO2 trach collar HEENT: Head is atraumatic, normocephalic. Pupils equal, round. Sclerae is anicteric. oral mucosa moist NECK: Supple. No JVD. No lymphadenopathy. No thyromegaly. tracheostomy and collar noted LUNGS: Breath sounds diminished with scattered rhonchi noted. No intercostal retractions. HEART: S1, S2 are muffled ABDOMEN: Soft. Bowel sounds are present. No masses. No tenderness. peg tube noted EXTREMITIES: No pedal edema. No calf tenderness. NEUROLOGICAL: Patient is awake, alert and oriented x3. Diffusely weak. N odding yes and no to questions and commands appropriately. Mouthing words Vital Signs - 24 hr 06/12/21 06/12/21 06/12/21 17:24 19:57 21:36 Temperature 98.6 F Pulse Rate 108 H Pulse Rate [ 114 H Pulse Oximetery ] Respiratory 18 Rate Blood Pressure 132/89 [Left Arm] O2 Sat by Pulse 96 97 Oximetry 06/13/21 06/13/21 06/13/21 02:00 07:07 08:54 Temperature 98.7 F 98.1 F Pulse Rate 110 H Pulse Rate [ 110 H Pulse Oximetery ] Respiratory 16 18 Rate Blood Pressure 106/73 118/78 [Left Arm] O2 Sat by Pulse 96 92 L Oximetry 06/13/21 06/13/21 06/13/21 09:06 12:24 12:36 Temperature Pulse Rate 119 H 119 H 120 H Pulse Rate [ Pulse Oximetery ] Respiratory Rate Blood Pressure [Left Arm] O2 Sat by Pulse Oximetry 06/13/21 14:15 Temperature 97.5 F L Pulse Rate Pulse Rate [ 134 H Pulse Oximetery ] Respiratory 20 Rate Blood Pressure 113/74 [Left Arm] O2 Sat by Pulse 93 L Oximetry Total time taken greater than 35 minutes including 18 minutes for counseling and coordination of care. Patient Condition at Discharge: Fair Plan - Discharge Summary Discharge Rx Participant: No New Discharge Prescriptions: New Ipratropium-Albuterol Nebulize [Duoneb 0.5 mg-3 mg/3 ml Soln] 3 ml INHALATION RT-TID ml HYDROcodone/APAP 5-325MG [Sharon 5-325] 1 each PO Q6HR PRN #12 tab PRN Reason: Pain Continue Escitalopram [Lexapro] 20 mg PO DAILY Omeprazole 20 mg PO DAILY Montelukast [Singulair] 10 mg PO HS INSULIN LISPRO (humaLOG) [humaLOG] See Protocol SQ AC-TID Cholecalciferol [Vitamin D3 (25 Mcg = 1000 Iu)] 50 mcg PO DAILY Rizatriptan Odt [Maxalt [employer]OOTER'S HELPER] 10 mg PO DAILY PRN PRN Reason: Migraine Headache Amitriptyline HCl [Elavil] 10 mg PO HS Pregabalin [Lyrica] 75 mg PO TID #21 cap Discontinued ALPRAZolam [Xanax] 0.25 mg PO DAILY PRN PRN Reason: Anxiety tiZANidine [Zanaflex] 4 mg PO BID PRN PRN Reason: Muscle Spasm Zinc 50 mg PO DAILY Amoxicillin/Potassium Clav [Augmentin 875-125 Tablet] 1 tab PO BID No Action lisinopriL [Zestril] 2.5 mg PO DAILY Metoprolol Tartrate [Lopressor] 12.5 mg PO BID #60 tab INSULIN LISPRO (humaLOG) [humaLOG] 40 units SQ AC-TID Insulin Detemir [Levemir Flextouch Pen] 35 units SQ HS Discharge Medication List Escitalopram [Lexapro] 20 mg PO DAILY 04/26/20 [History] Omeprazole 20 mg PO DAILY 11/14/20 [History] Amitriptyline HCl [Elavil] 10 mg PO HS 05/09/21 [History] Cholecalciferol [Vitamin D3 (25 Mcg = 1000 Iu)] 50 mcg PO DAILY 05/09/21 [History] INSULIN LISPRO (humaLOG) [humaLOG] 40 units SQ AC-TID 05/09/21 [History] INSULIN LISPRO (humaLOG) [humaLOG] See Protocol SQ AC-TID 05/09/21 [History] Insulin Detemir [Levemir Flextouch Pen] 35 units SQ HS 05/09/21 [History] Montelukast [Singulair] 10 mg PO HS 05/09/21 [History] Rizatriptan Odt [Maxalt [employer] HELPER] 10 mg PO DAILY PRN 05/09/21 [History] lisinopriL [Zestril] 2.5 mg PO DAILY 05/09/21 [History] Metoprolol Tartrate [Lopressor] 12.5 mg PO BID #60 tab 05/16/21 [Rx] HYDROcodone/APAP 5-325MG [Sharon 5-325] 1 each PO Q6HR PRN #12 tab 06/13/21 [Rx] Ipratropium-Albuterol Nebulize [Duoneb 0.5 mg-3 mg/3 ml Soln] 3 ml INHALATION RT-TID ml 06/13/21 [Rx] Pregabalin [Lyrica] 75 mg PO TID #21 cap 06/13/21 [Rx] Follow up Appointment(s)/Referral(s): Jairo Conroy MD [Primary Care Provider] - 1-2 days Discharge Disposition: TRANSFER TO SNF/ECF
[2021-06-13 16:23] LABS: Glucose,Whole Blood 367 mg/dL (75-99)
[2021-06-13] MEDS ORDERED: HEPARIN SODIUM,PORCINE/PF 5,000 UNIT/0.5 ML SYRINGE SQ SCH (21:00)
== END 2021-06-13 18:11 | DRG 4 ==
LOC: EC 10:15 → 4SSUR 14:55 → 5NMEDONC 05-18 00:35 → 4SSUR 05-18 00:42 → 2SICU 05-20 03:28 → 4SSUR 06-05 18:35
PROVIDERS: ADMIT Internal Medicine; ATTEND Internal Medicine
PROC: 5A09357 Assistance with Respiratory Ventilation, Less than 24 Consecutive Hours, Continuous Positive Airway Pressure (ICD-10-PCS; 2021-05-20)
PROC: 02H633Z Insertion of Infusion Device into Right Atrium, Percutaneous Approach (ICD-10-PCS; 2021-05-20)
PROC: 5A0935A Assistance with Respiratory Ventilation, Less than 24 Consecutive Hours, High Flow/Velocity Cannula (ICD-10-PCS; 2021-05-20)
PROC: 3E043XZ Introduction of Vasopressor into Central Vein, Percutaneous Approach (ICD-10-PCS; 2021-05-22)
PROC: 0BH17EZ Insertion of Endotracheal Airway into Trachea, Via Natural or Artificial Opening (ICD-10-PCS; 2021-05-22)
PROC: 5A1945Z Respiratory Ventilation, 24-96 Consecutive Hours (ICD-10-PCS; 2021-05-22)
PROC: 0B9D8ZX Drainage of Right Middle Lung Lobe, Via Natural or Artificial Opening Endoscopic, Diagnostic (ICD-10-PCS; 2021-05-22)
PROC: 02HV33Z Insertion of Infusion Device into Superior Vena Cava, Percutaneous Approach (ICD-10-PCS; 2021-05-22)
PROC: 5A1955Z Respiratory Ventilation, Greater than 96 Consecutive Hours (ICD-10-PCS; 2021-05-23)
PROC: 0BH17EZ Insertion of Endotracheal Airway into Trachea, Via Natural or Artificial Opening (ICD-10-PCS; 2021-05-23)
PROC: 30233N1 Transfusion of Nonautologous Red Blood Cells into Peripheral Vein, Percutaneous Approach (ICD-10-PCS; 2021-05-24)
PROC: 0DH63UZ Insertion of Feeding Device into Stomach, Percutaneous Approach (ICD-10-PCS; 2021-05-29)
PROC: 0B110F4 Bypass Trachea to Cutaneous with Tracheostomy Device, Open Approach (ICD-10-PCS; principal; 2021-05-29 07:40)
DX: A41.9 Sepsis, unspecified organism (principal); L89.153 Pressure ulcer of sacral region, stage 3; E10.10 Type 1 diabetes mellitus with ketoacidosis without coma; E43 Unspecified severe protein-calorie malnutrition; G93.41 Metabolic encephalopathy; J12.89 Other viral pneumonia; J69.0 Pneumonitis due to inhalation of food and vomit; J80 Acute respiratory distress syndrome; R65.21 Severe sepsis with septic shock; B37.0 Candidal stomatitis; B37.89 Other sites of candidiasis; Z68.1 Body mass index [BMI] 19.9 or less, adult; E87.1 Hypo-osmolality and hyponatremia; J81.1 Chronic pulmonary edema; J90 Pleural effusion, not elsewhere classified; K81.2 Acute cholecystitis with chronic cholecystitis; L03.811 Cellulitis of head [any part, except face]; G72.81 Critical illness myopathy; N39.0 Urinary tract infection, site not specified; E10.622 Type 1 diabetes mellitus with other skin ulcer; J45.909 Unspecified asthma, uncomplicated; Z20.822 Contact with and (suspected) exposure to COVID-19; D64.9 Anemia, unspecified; I10 Essential (primary) hypertension; E10.649 Type 1 diabetes mellitus with hypoglycemia without coma; E10.42 Type 1 diabetes mellitus with diabetic polyneuropathy; E88.09 Other disorders of plasma-protein metabolism, not elsewhere classified; L89.92 Pressure ulcer of unspecified site, stage 2; B00.9 Herpesviral infection, unspecified; T14.8XXA Other injury of unspecified body region, initial encounter; E86.0 Dehydration; E87.6 Hypokalemia; R26.9 Unspecified abnormalities of gait and mobility; F42.9 Obsessive-compulsive disorder, unspecified; F43.23 Adjustment disorder with mixed anxiety and depressed mood; G43.909 Migraine, unspecified, not intractable, without status migrainosus; G89.29 Other chronic pain; K59.09 Other constipation; L98.492 Non-pressure chronic ulcer of skin of other sites with fat layer exposed; Z98.890 Other specified postprocedural states; Z98.51 Tubal ligation status; Z82.61 Family history of arthritis; Z83.2 Family history of diseases of the blood and blood-forming organs and certain disorders involving the immune mechanism; Z82.49 Family history of ischemic heart disease and other diseases of the circulatory system; Z86.19 Personal history of other infectious and parasitic diseases; Z75.1 Person awaiting admission to adequate facility elsewhere; Z83.3 Family history of diabetes mellitus; Z79.2 Long term (current) use of antibiotics; Z79.4 Long term (current) use of insulin; Z79.899 Other long term (current) drug therapy; Z80.8 Family history of malignant neoplasm of other organs or systems; Z86.14 Personal history of Methicillin resistant Staphylococcus aureus infection
CPT/HCPCS: 31624; 36415; 36573; 36600; 43246; 71045; 71046; 71260; 74230; 76604; 76705; 80048; 80053; 80074; 80202; 80306; 81001; 82805; 83036; 83605; 83735; 84100; 84132; 84145; 84443; 84484; 85025; 85027; 86140; 86850; 86900; 86901; 86920; 87040; 87070; 87075; 87086; 87102; 87103; 87116; 87205; 87206; 87252; 87324; 87390; 87496; 87498; 87502; 87529; 87634; 87635; 87798; 88108; 88305; 93005; 94002; 94003; 94640; 94660; 94760; 99285